=== PATIENT | male | born 1935 | race Caucasian/White ===

== ENCOUNTER 2022-09-13 08:19 | Outpatient (OUT) | payer MEDICARE, OTHER, SELFPAY ==
[2022-09-13 11:00] LABS: Alanine Aminotransferase 23 U/L (16-63); Albumin Level 3.6 g/dL (3.4-5.0); Alkaline Phosphatase 85 U/L (46-116); Anion Gap 14.4; Aspartate Amino Transferase 15 U/L (15-37); BUN Creatinine Ratio 14.8; Bilirubin Total 0.2 mg/dL (0.2-1.0); Calcium 9.2 mg/dL (8.5-10.1); Carbon Dioxide 24.9 mmol/L (21.0-32.0); Chloride 105 mmol/L (98-107); Estimated GFR (African America >60 (>=60); Estimated GFR (Non-African Ame 53 (>=60); Globulin 3.8 g/dL; Glucose 139 mg/dL (74-106); Potassium 4.3 mmol/L (3.5-5.1); Sodium 140 mmol/L (136-145); Total Protein 7.4 g/dL (6.4-8.2)
[2022-09-13 11:01] LABS: Albumin Globulin Ratio 0.9
== END 2022-09-13 08:20 ==
LOC: LAB 08:23
PROVIDERS: PCP Family Medicine; Visit Provider Nurse Practitioner Family
DX: R60.0 Localized edema (principal)
CPT/HCPCS: 36415; 80053

== ENCOUNTER 2023-08-13 06:29 | Outpatient (OUT) | payer MEDICARE, OTHER, SELFPAY ==
[2023-08-13 07:19] LABS: Basophils Absolute Auto 0.1 10^3/uL (0.0-0.1); Basophils Percent Auto 0.5 % (0.2-2.0); Eosinophils Absolute Auto 0.1 10^3/uL (0.0-0.7); Hematocrit 39.2 % (42.0-54.0); Hemoglobin 12.5 g/dL (14.0-18.0); Immature Granulocytes Abs Auto 0.04 10^3/uL (0.00-0.03); Immature Granulocytes Pct Auto 0.4 % (0.0-0.5); Lymphocytes Absolute Auto 4.1 10^3/uL (1.2-3.8); Lymphocytes Percent Auto 37.5 % (20.5-60.0); Mean Corpuscular HGB Conc 31.9 g/dL (29.9-35.2); Mean Corpuscular Hemoglobin 29.6 pg (25.9-34.0); Mean Corpuscular Volume 92.9 fL (80.0-94.0); Mean Platelet Volume 10.7 fL (9.5-13.5); Monocytes Absolute Auto 0.9 10^3/uL (0.3-0.8); Monocytes Percent Auto 7.9 % (1.7-12.0); Neutrophils Absolute Auto 5.8 10^3/uL (1.4-6.5); Neutrophils Percent Auto 52.7 % (43.0-75.0); Platelet Count 283 10^3/uL (150-450); Red Blood Count 4.22 10^6/uL (4.70-6.10); Red Cell Distribution Width 14.6 % (11.0-15.0)
[2023-08-13 07:40] LABS: Prostate Specific Antigen Scrn 1.08 ng/mL (<=4.00)
[2023-08-13 07:42] LABS: Alanine Aminotransferase 27 U/L (16-63); Albumin Globulin Ratio 1.1; Albumin Level 3.6 g/dL (3.4-5.0); Alkaline Phosphatase 91 U/L (46-116); Anion Gap 12.2; Aspartate Amino Transferase 17 U/L (15-37); BUN Creatinine Ratio 20.3; Bilirubin Total 0.6 mg/dL (0.2-1.0); Calcium 9.4 mg/dL (8.5-10.1); Carbon Dioxide 26.9 mmol/L (21.0-32.0); Chloride 107 mmol/L (98-107); Chol HDL Ratio 3.6; Cholesterol 189 mg/dL (<=200); Estimated GFR (African America 54 (>=60); Estimated GFR (Non-African Ame 45 (>=60); Free T3 3.65 pg/mL (2.18-3.98); Globulin 3.2 g/dL; Glucose 135 mg/dL (74-106); HDL Cholesterol 53 mg/dL (40-60); LDL Cholesterol Calculated 114.8 mg/dL; Potassium 4.1 mmol/L (3.5-5.1); Sodium 142 mmol/L (136-145); Thyroid Stimulating Hormone 1.207 uIU/mL (0.358-3.740); Total Protein 6.8 g/dL (6.4-8.2); Triglycerides 106 mg/dL (<=150); VLDL CHOLESTEROL 21.2 mg/dL
[2023-08-13 07:43] LABS: Estimated Average Glucose 146 mg/dL; Glycohemoglobin A1C 6.7 % (4.5-6.2)
== END 2023-08-13 06:30 | disposition home or self-care (01) ==
LOC: LAB 06:31
PROVIDERS: PCP Family Medicine; Visit Provider Family Medicine
DX: K58.9 Irritable bowel syndrome, unspecified (principal); I10 Essential (primary) hypertension; M54.50 Low back pain, unspecified; R00.2 Palpitations; E78.5 Hyperlipidemia, unspecified; R73.09 Other abnormal glucose; Z12.5 Encounter for screening for malignant neoplasm of prostate
CPT/HCPCS: 36415; 80053; 80061; 83036; 84436; 84443; 84481; 85025; G0103

== ENCOUNTER 2023-11-01 08:30 | Outpatient (OUT) | payer MEDICARE, OTHER, SELFPAY ==
--- NOTE | 2023-11-01 | US_ITS ---
[address] [address] Patient Name: LILIANA BENITO MRN: [id number] date: 1935 Sex: M Assigned Patient Location: Current Patient Location: US Accession/Order Number: [id number] Exam Date: 11/01/2023 08:49 Report Date: 11/03/2023 13:22 At the request of: ERIN ZHANG Procedure: US carotid duplex BI EXAMINATION: US carotid duplex BI HISTORY: Weakness R53.1 COMPARISON: No relevant comparison available. TECHNIQUE: Duplex Doppler ultrasound analysis of carotid and vertebral arteries. . Bilateral carotid arterial duplex examination was performed using B-mode, color flow and spectral analysis. Carotid stenosis is reported according to validated velocity parameters, similar to NASCET criteria. FINDINGS: RIGHT CAROTID ARTERY: Marked atherosclerotic narrowing of the proximal ICA with up to 86% area reduction. Subclavian: 135.18 cm/s / 7.43 cm/s CCA: Prox: 132.86 cm/s / 12.08 cm/s Mid: 121.24 cm/s / 16.72 cm/s Distal: 128.21 cm/s / 14.40 cm/s BULB: 79.40 cm/s / 9.75 cm/s ICA: Prox: 144.47 cm/s / 20.30 cm/s Mid: 138.51 cm/s / 30.15 cm/s Distal: 128.66 cm/s / 18.32 cm/s ECA: 177.49 cm/s / 0 cm/s VERTEBRAL: 35.94 cm/s / 0 cm/s ICA/CCA ratio: 1.1 LEFT CAROTID ARTERY: Marked atherosclerotic narrowing within carotid bulb. Subclavian: 210.40 cm/s / 15.50 cm/s CCA: Prox: 133.17 cm/s / 19.13 cm/s Mid: 114.13 cm/s / 13.60 cm/s Distal: 112.16 cm/s / 15.57 cm/s BULB: 98.36 cm/s / 0 cm/s ICA: Prox: 108.22 cm/s / 15.57 cm/s Mid: 116.11 cm/s / 25.43 cm/s Distal: 82.59 cm/s / 19.52 cm/s ECA: 186.18 cm/s / 0 cm/s VERTEBRAL: 140.82 cm/s / 18.09 cm/s ICA/CCA ratio: 1.0 US/US carotid duplex BI IMPRESSION: 1. 50-69% flow stenosis within the right carotid artery. 86% area reduction secondary to marked atherosclerotic disease. 2. 50-69% flow stenosis within left carotid artery. Marked atherosclerotic disease within carotid bulb. Spectral Doppler US Thresholds Stenosis (%) PSV (cm/sec) VICA/VCCA 0-49 <150 <2.5 50-69 150-225 2.5-4.0 >70 >225 >4.0 Electronically authenticated by: GEOVANY JENKINS Date: 11/03/2023 13:22
--- OUTSIDE RECORDS SUMMARY | 2023-11-01 08:34 | XMS_ITS | CCD ---
Author Organization [facility] CliniSywy Care Team Providers Care Rcis Name Role Phone CHET NESBITT Unavailable Unavailable CHET NESBITT Unavailable Unavailable ERIN BERG Unavailable Unavailable PHYSICIAN, DEFAULT Unavailable Unavailable PHYSICIAN, DEFAULT Unavailable Unavailable PHYSICIAN, DEFAULT Unavailable Unavailable PHYSICIAN, DEFAULT Unavailable Unavailable Chevy Robins Unavailable Erin Berg Primary Care Physician VICENTE ., DR KHAN Consulting Unavailable HOY ., DR KHAN Primary Care Unavailable HOY ., DR KHAN Attending Unavailable HOY ., DR KHAN Admitting Unavailable REQUEST, DR FAITH LISTED Admitting Unavaila ble REQUEST, DR FAITH LISTED Attending Unavaila ble HOY ., DR KHAN Primary Care Unavailable REQUEST, DR FAITH LISTED Consulting Unavaila ble HOY ., DR KHAN Consulting Unavailable HOY ., DR KHAN Primary Care Unavailable HOY ., DR KHAN Attending Unavailable HOY ., DR KHAN Admitting Unavailable MARK LEE Consulting Unavailable ALGHOTHANI, MOHAMAD Consulting Unavailable HOY ., DR KHAN Primary Care Unavailable ALGHOTHANI, ARNEL Attending Unavailable ALGHOTHANI, MOHALYSSAD Admitting Unavailable HOY ., DR KHAN Consulting Unavailable HOY ., DR KHAN Primary Care Unavailable HOY ., DR KHAN Attending Unavailable HOY ., DR KHAN Admitting Unavailable MISC, DR BARRAGAN Admitting Unavailable MISC, DR BARRAGAN Attending Unavailable HOY ., DR KHAN Primary Care Unavailable HOY ., DR KHAN Consulting Unavailable HOY ., DR KHAN Primary Care Unavailable HOY ., DR KHAN Attending Unavailable HOY ., DR KHAN Admitting Unavailable KURT JOE Consulting Unavailable HOY ., DR KHAN Admitting Unavailable HOY ., DR KHAN Attending Unavailable HOY ., DR KHAN Primary Care Unavailable HOY ., DR KHAN Consulting Unavailable MAHNAZ, MELYSSA Admitting Unavailable MAHNAZ, MELYSSA Attending Unavailable HOY ., DR KHAN Primary Care Unavailable MAHNAZ, MELYSSA Consulting Unavailable HOY ., DR KHAN Admitting Unavailable HOY ., DR KHAN Attending Unavailable HOY ., DR KHAN Primary Care Unavailable HOY ., DR KHAN Consulting Unavailable WEST, DR KURT Coley Consulting Unavailable HOY ., DR KHAN Admitting Unavailable HOY ., DR KHAN Attending Unavailable HOY ., DR KHAN Primary Care Unavailable HOY ., DR KHAN Referring Unavailable HOY ., DR KHAN Consulting Unavailable WEST, DR KURT Coley Consulting Unavailable HOY ., DR KHAN Consulting Unavailable HOY ., DR KHAN Primary Care Unavailable HOY ., DR KHAN Attending Unavailable HOY ., DR KHAN Admitting Unavailable MAHNAZ, MELYSSA Admitting Unavailable MAHNAZ, MELYSSA Attending Unavailable HOY ., DR KHAN Primary Care Unavailable MAHNAZ, MELYSSA Consulting Unavailable REQUEST, DR NONE LISTED Consulting Unavaila ble HOY ., DR KHAN Primary Care Unavailable REQUEST, DR FAITH LISTED Attending Unavaila ble REQUEST, DR FAITH LISTED Admitting Unavaila ble HOY ., DR KHAN Consulting Unavailable HOY ., DR KHAN Attending Unavailable HOY ., DR KHAN Admitting Unavailable HOY ., DR KHAN Primary Care Unavailable HAY ., DR HO Consulting Unavailable YANIV DACOSTA Consulting Unavailable DARAMOLAMAN Consulting Unavailable ALGHOTHANI, MOHAMAD Consulting Unavailable ALGHOTHANI, MOHAMAD Admitting Unavailable ALGHOTHANI, MOHAMAD Attending Unavailable HOY ., DR KHAN Primary Care Unavailable HOY ., DR KHAN Admitting Unavailable HOY ., DR KHAN Attending Unavailable HOY ., DR KHAN Primary Care Unavailable HOY ., DR KHAN Consulting Unavailable David Espinal Consulting Unavailable HOY ., DR KHAN Consulting Unavailable HOY ., DR KHAN Primary Care Unavailable HOY ., DR KHAN Attending Unavailable HOY ., DR KHAN Admitting Unavailable David Espinal Consulting Unavailable Darien REYNOLDS Attending Unavailable Darien REYNOLDS Attending Unavailable Alli MUKHERJEE Attending Unavailable HoyErin Referring Unavailable ALGHOTHANI, MOHAMAD Attending Unavailable ALGHOTHANI, MOHAMAD Attending Unavailable Allergies Allergy Classification Reported Allergen(s) Allergy Type Date of Onset Reaction(s) Facility (1 source) No Known Medication Allergies; Translations: [No Known Medication Allergies] Propensity to adverse reactions (disorder) [facility] Repository (1 source) Adhesive agent; Translations: [ADHESIVE] Propensity to adverse reactions to drug (disorder) 7 [facility] Repository Medications Current Medications Medication Drug Class(es) Dates Sig (Normalized) Sig (Original) amLODIPine 5 mg oral tablet (5 sources) Dihydropyridine Calcium Channel Faith Start: 09-14-2020 take 1 mg by mouth once daily amLODIPine 5 mg Tab mg tab(s), Oral, Daily, Refills(s) 0 Start Date: 09/14/20 Status: Ordered take 1 tablet by anna th every twenty-four hours amLODIPine Besylate 10 MG 1 tablet Orall y Once a day Active Ascorbic Acid (2 sources) Vitamin C Start: 09-14-2020 Vitamin C Jamel y, Refills(s) 0 Start Date: 09/14/20 Status: Ordered budesonide 3 mg delayed release oral capsule (2 sources) Corticosteroid Start: 09-12-2022 Budesonide 3 M G 1capsule Orally take 3 capsules for four weeks then 2 capsules for 4 weeks then take 1 capsule for 4 weeks for 90 days Sep, Active Start: 11-09-2020 Budesonide 3 M G 2 capsules for 14 days, 1 capsules for 14 days Orally Once a day for 28 days Nov, Active diclofenac sodium 75 mg delayed release oral tablet (2 sources) Nonsteroidal Anti-inflammatory Drug Start: 11-27-2021 take 1 tablet by mouth twice daily Diclofenac 75mg Tab-DR 75 mg, Oral, BID Start Date: 11/27/21 Status: Ordered Diclofenac 75mg Tab-DR (1 source) Start: 11-27-2021 take 1 tablet by mouth twice daily Diclofenac 75mg Tab-DR 75 mg, Oral, BID Start Date: 11/27/21 Status: Ordered Fish Oils (2 sources) Start: 09-14-2020 Fish Oil Oral, Refill(s) 0 Start Date: 09/14/20 Status: Ordered furosemide 20 mg oral tablet (3 sources) Loop Diuretic Start: 11-27-2021 take 1 tablet by mouth once daily furosemide 20 mg Tab 20 mg = 1 tab(s), Oral, Daily Start Date: 11/27/21 Status: Ordered take 1 tablet by anna th every twelve hours Furosemide 20 MG 1 tablet Orally twice a day Active glimepiride 2 mg oral tablet (3 sources) Sulfonylurea Start: 09-14-2020 take 1 mg by mouth once daily glimepiride 2 mg Tab mg tab(s), Oral, Daily, Refills(s) 0 Start Date: 09/14/20 Status: Ordered hydrALAZINE hydrochloride 100 mg oral tablet (4 sources) Arteriolar Vasodilator Start: 06-11-2022 take 1 tablet by mouth twice daily hydrALAZINE 100 mg oral tablet 100 mg = 1 tab(s), Oral, BID Start Date: 06/11/22 Status: Ordered Start: 11-27-2021 take 1 tablet by anna th four times daily hydrALAZINE 50 mg Tab 50 mg = 1 tab(s), Oral, QID Start Date: 11/27/21 Status: Ordered Hyoscyamine (1 source) Hyoscyamine Acti ve levothyroxine sodium 0.05 mg oral tablet (5 sources) l-Thyroxine Start: take 1 tablet by mouth once daily levothyroxine 50 mcg (0.05 mg) Tab mcg tab(s), Oral, Daily, Refills(s) 0 Start Date: 09/14/20 Status: Ordered 1 ml liothyronine sodium 0.01 mg/ml injection (1 source) l-Triiodothyronine take 1 mL intravenously every eight hours as needed Liothyronine Sodium 10 MCG/ML 1 mL as needed Intravenous every 8 hrs Active lisinopril 20 mg oral tablet (4 sources) Angiotensin Converting Enzyme Inhibitor Start: take 1 tablet by mouth once daily lisinopril 20 mg Tab 20 mg = 1 tab(s), Oral, Daily Start Date: 06/11/22 Status: Ordered Start: 09-14-2020 take 1 mg by mouth once daily lisinopril 30 mg Tab mg tab(s), Oral, Daily, Refills(s) 0 Start Date: 09/14/20 Status: Ordered meloxicam 15 mg oral tablet (1 source) Nonsteroidal Anti-inflammatory Drug take 1 tablet by mouth every twenty-four hours Meloxicam 15 MG 1 tablet Orally Once a day Active oxybutynin chloride 5 mg oral tablet (4 sources) Cholinergic Muscarinic Antagonist Start: 2021 take 1 tablet by mouth once daily oxybutynin 5 mg Tab 5 mg = 1 tab(s), Oral, Daily, # 30 tab(s), Refills(s) 11, Pharmacy: [id number], 172, cm, 06/11/22 9:50:00 EST, Height/Length Dosing, 85.4, kg, 06/11/22 9:50:00 EST, Weight Dosing Start Date: 08/01/22 Status: Ordered pantoprazole 40 mg delayed release oral tablet (1 source) Proton Pump Inhibitor take 1 tablet by mouth every twenty-four hours Pantoprazole Sodium 40 MG 1 tablet Orally Once a day Active potassium chloride 10 meq extended release oral capsule (1 source) take 1 capsule by mouth every twelve hours Potassium Chloride ER 10 MEQ 1 capsule with food Orally Twice a day Active sucralfate 1000 mg oral tablet (1 source) Aluminum Complex take 1 tablet by mouth every twelve hours Sucralfate 1 GM 1 tablet on an empty stomach Orally Twice a day Active tamsulosin hydrochloride 0.4 mg oral capsule (5 sources) alpha-Adrenergic Faith Start: 2022 take 1 capsule by mouth once daily tamsulosin 0.4 mg Cap 0.4 mg = 1 cap(s), Oral, Daily Start Date: 06/11/22 Status: Ordered Start: 11-27-2021 take 1 capsule by mo [facility] twice daily tamsulosin 0.4 mg Cap 0.4 mg = 1 cap(s), Oral, BID Start Date: 11/27/21 Status: Ordered tiZANidine 4 mg oral tablet (4 sources) Central alpha-2 Adrenergic Agonist Start: 11-27-2021 take 1 tablet by mouth every eight hours tiZANidine 4 mg Tab 4 mg = 1 tab(s), Oral, q8hr Start Date: 11/27/21 Status: Ordered take 1 tablet by [facility] every twenty-four hours tiZANidine HCl 4 MG 1 tablet as needed Orally daily Active vitamin a 04912 unt oral capsule (2 sources) Vitamin A Start: 09-14-2020 vitamin A 25,0 00 units oral capsule Refills(s) 0 Start Date: 09/14/20 Status: Ordered vitamin B12 (2 sources) Vitamin B12 Start: 09-14-2020 Vitamin B12 Re fills(s) 0 Start Date: 09/14/20 Status: Ordered Vitamin B6 (2 sources) Start: 09-14-2020 Vitamin B6 Juanis ly, Refills(s) 0 Start Date: 09/14/20 Status: Ordered Vitamin D (2 sources) Start: 09-14-2020 Vitamin D International_Unit, Oral, Daily, Refills(s) 0 Start Date: 09/14/20 Status: Ordered Vitamin E (2 sources) Start: 09-14-2020 vitamin E Oral , Daily, Refills(s) 0 Start Date: 09/14/20 Status: Ordered Problems Active Problems Problem Classification Problem Date Documented Da te Episodic/Chronic Abdominal pain (4 sources) Generalized abdominal pain; Translations: [GENERALIZED ABDOMINAL PAIN] Onset: 3 Episodic Biliary tract disease (1 source) Calculus of gallbladder without cholecystitis without obstruction; Translations: [CALCU GB W/O CHOLECYST W/O OBST] Onset: 3 Episodic Chronic kidney disease (1 source) Chronic kidney disease, unspecified; Translations: [CHRONIC KIDNEY DISEASE UNSPECIFIED] Onset: 3 Chronic Conditions associated with dizziness or vertigo (3 sources) Dizziness and giddiness; Translations: [DIZZINESS AND GIDDINESS] Onset: 3 Episodic Conduction disorders (1 source) Unspecified atrioventricular block; Translations: [UNSPECIFIED ATRIOVENTRICULAR BLOCK] Onset: 3 Chronic Deficiency and other anemia (1 source) Iron deficiency anemia, unspecified; Translations: [IRON DEFICIENCY ANEMIA UNSPECIFIED] Onset: 3 Episodic Diabetes mellitus with complications (6 sources) Type 2 diabetes mellitus with hypoglycemia without coma; Translations: [Type 2 diabetes mellitus with diabetic neuropathy, unspecified] Onset: 2 Chronic Diabetes mellitus without complication (2 sources) Type 2 diabetes mellitus 09-14-2020 Chronic Diseases of white blood cells (4 sources) Elevated white blood cell count, unspecified; Translations: [ELEVATED WHITE BLOOD CELL COUNT UNS] Onset: 3 Chronic Disorders of lipid metabolism (1 source) Hyperlipidemia, unspecified; Translations: [HYPERLIPIDEMIA UNSPECIFIED] Onset: 2 Chronic E Codes: Adverse effects of medical drugs (1 source) Adverse effect of insulin and oral hypoglycemic [antidiabetic] drugs, initial encounter; Translations: [ADVERS EFF INSULIN ORAL HG RX INIT] Onset: 3 Episodic Essential hypertension (8 sources) Hypertensive disorder; Translations: [Essential (primary) hypertension] Onset: 2 09-14-2020 Chronic Genitourinary symptoms and ill-defined conditions (7 sources) Nocturia; Translations: [Nocturia] Onset: 2 Episodic Hyperplasia of prostate (4 sources) Benign prostatic hypertrophy with outflow obstruction; Translations: [Benign prostatic hyperplasia with lower urinary tract symptoms] Onset: 2 Chronic Hypertension with complications and secondary hypertension (1 source) Hypertensive chronic kidney disease with stage 1 through stage 4 chronic kidney disease, or unspecified chronic kidney disease; Translations: [HTN CKD W/STAGE 1-4 CKD/UNS CKD] Onset: 3 Chronic Malaise and fatigue (2 sources) Weakness; Translations: [Other fatigue] Onset: 2 Episodic Menopausal disorders (1 source) Hormone replacement therapy; Translations: [HORMONE REPLACEMENT THERAPY] Onset: 3 Episodic Noninfectious gastroenteritis (10 sources) Microscopic colitis; Translations: [Other specified noninfective gastroenteritis and colitis] Onset: 1 Resolved: 1 Episodic Osteoarthritis (1 source) Unspecified osteoarthritis, unspecified site; Translations: [UNSPECIFIED OSTEOARTHRITIS UNS SITE] Onset: 3 Chronic Other aftercare (1 source) Other terminal manager (current) drug therapy; Translations: [OTH RETIREMENT CURRENT DRUG THERAPY] Onset: 3 Episodic Other gastrointestinal disorders (5 sources) 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; Translations: [IRRITABLE BOWEL SYND W/O DIARRHEA] Onset: 3 Chronic Other gastrointestinal disorders (2 sources) Diarrhea; Translations: [Diarrhea, unspecified] Episodic Other gastrointestinal disorders (1 source) Incontinence of feces; Translations: [Full incontinence of feces] Episodic Other gastrointestinal disorders (1 source) Diarrhea, unspecified; Translations: [Diarrhea] Episodic Other nutritional; endocrine; and metabolic disorders (3 sources) Weight loss; Translations: [Abnormal weight loss] Episodic Other nutritional; endocrine; and metabolic disorders (2 sources) Body mass index 25-29 - overweight 11-15-2020 Episodic Other nutritional; endocrine; and metabolic disorders (1 source) Abnormal weight loss; Translations: [ABNORMAL WEIGHT LOSS] Onset: 3 Episodic Peripheral and visceral atherosclerosis (1 source) Unspecified atherosclerosis; Translations: [UNSPECIFIED ATHEROSCLEROSIS] Onset: 3 Chronic Screening and history of mental health and substance abuse codes (1 source) Personal history of nicotine dependence; Translations: [PERSONAL HISTORY OF NICOTINE DEPEND] Onset: 3 Episodic Spondylosis; intervertebral disc disorders; other back problems (5 sources) Spinal stenosis, lumbar region without neurogenic claudication; Translations: [SPINAL STENOSIS LUMBAR REGION NO NC] Onset: 2 Episodic Thyroid disorders (1 source) Hypothyroidism, unspecified; Translations: [HYPOTHYROIDISM UNSPECIFIED] Onset: 3 Chronic Unclassified (1 source) DISLOCATED IOL LEFT EYE / DISLOCATED IOL LEFT EYE() Onset: 7 Unclassified (1 source) CONTACT W/AND (SUSP) EXPOS COVID-19; Translations: [CONTACT W/AND (SUSP) EXPOS COVID-19] Onset: 3 Unclassified (3 sources) LOW BACK PAIN, UNSPECIFIED; Translations: [LOW BACK PAIN, UNSPECIFIED] Onset: 2 Past or Other Problems Problem Classification Problem Date Documented Da te Episodic/Chronic Cardiac dysrhythmias (2 sources) Bradycardia, unspecified; Translations: [Bradycardia, unspecified] Onset: 03-26-2022 Episodic Diabetes mellitus without complication (1 source) Other abnormal glucose; Translations: [OTHER ABNORMAL GLUCOSE] Onset: 02-07-2022 Episodic Other non-traumatic joint disorders (1 source) Pain in unspecified joint; Translations: [PAIN IN UNSPECIFIED JOINT] Onset: 02-07-2022 Episodic Other screening for suspected conditions (not mental disorders or infectious disease) (2 sources) Encounter for screening for malignant neoplasm of prostate; Translations: [Encounter for screening for malignant neoplasm of colon] Onset: 02-07-2022 Episodic Residual codes; unclassified (4 sources) Edema, unspecified; Translations: [EDEMA UNSPECIFIED] Onset: 04-05-2022 Episodic Residual codes; unclassified (4 sources) Localized edema; Translations: [LOCALIZED EDEMA] Onset: 04-01-2022 Episodic Unclassified (1 source) DISLOCATED IOL LEFT EYE; Translations: [DISLOCATED IOL LEFT EYE] Onset: 01-15-2017 Unclassified (1 source) LOW BACK PAIN, UNSPECIFIED; Translations: [LOW BACK PAIN, UNSPECIFIED] Onset: 09-14-2021 Results Test Name Value Interpretation Reference Range Facility Office Visiton 07-07-2023 Follow-up visit [id number] Caprice Natarajan E 1935 M Date Provider Department Center 07/07/2023 [id number] ACOSTA Family History Problem Relation Age of Onset Diabetes Father Hypertension Father Family Status - Relation Status Age at Father Level of Service:18590 [place] OFFICE/OUTPATIENT ESTABLISHED LOW MDM 20 MIN Reason for Visit and Comments: Follow-up [241046] - 6 month follow up Normal [facility] Office Visiton 12-13-2022 Follow-up visit [id number] Caprice Natarajan E 1935 M Date Provider Department Center 12/13/2022 [id number] ACOSTA Family History Problem Relation Age of Onset Diabetes Father Hypertension Father Family Status - Relation Status Age at Father Level of Service:09282 [place] OFFICE/OUTPATIENT ESTABLISHED LOW MDM 20-29 MIN Normal [facility] STOOL CULTUREon 08-18-2022 Campylobacter Culture Final report Normal [facility] Comment on above: Performed By: #### C XSTOOL #### [facility] [address] [place] [address] Dr. Deepika Terrell E coli Shiga Toxin EIA Negative Normal Negative [facility] Comment on above: Performed By: #### C XSTOOL #### [facility] [address] [address] [address] Deepika Terrell Result 1 Comment Normal [facility] Comment on above: Result Comment: No S almonella or Shigella recovered. Performed By: #### C XSTOOL #### [facility] [address] [address] [address] Deepika Terrell Result Comment: No C ampylobacter species isolated. Salmonella/Shigell a Screen Final report Normal [facility] Comment on above: Performed By: #### C XSTOOL #### [facility] [address] [address] [address] Deepika Garcia DIFF PCRon 08-13-2022 C. DIFFICILE PCR Negative Normal NEGATIVE [facility] Comment on above: Performed By: #### B MP #### [facility] [address] [place], [place] [address] Dr. Deepika Terrell Consultation Noteon 08-14-19 23 Consultation Note [id number]:127 Normal [facility] OCC BLD IMMUNO SCREENon OCCULT BLOOD Negative Normal NEGATIVE [facility] Comment on above: Performed By: #### B MP #### [facility] [address] [address] [address] Deepika Terrell RAD - MISCon 08-13-2022 RAD - MISC [id number]:127 Normal [facility] Physician Referralon 023 Physician Referral [id number]:127 Normal [facility] NM HEPATOBILIARY SCAN W EFon 08-09-2022 NM HEPATOBILIARY SCAN W EF EXAMINATION: NM HEPATOBILIARY SCAN W EF HISTORY: Abdominal colic COMPARISON: Ultrasound right upper quadrant 08/08/2022 TECHNIQUE: Radionuclide hepatobiliary imaging was performed after intravenous injection of 5.0 mCi Tc-99m EHLLEN derivative with sequential acquisitions every 1 minute for one hour. Hepatobiliary imaging with gallbladder ejection fraction analysis was then performed with sequential imaging every 1 minute for 60 minutes following ingestion of 8 oz. Ensure Plus. FINDINGS: LIVER: Normal, prompt and uniform radiotracer uptake and clearing. BILIARY DUCTS: Normal radioisotopic biliary excretion. GALLBLADDER: Normal with no evidence of cystic duct obstruction. INTESTINE: Normal with no evidence of common biliary ductal obstruction. EJECTION FRACTION: 0-5 % within 60 minutes. (Normal EF > 38%). OTHER: Negative. IMPRESSION: 1. Abnormal gallbladder emptying despite normal gallbladder filling. Findings suggest ball-valve type obstruction or dyskinesia. 2. Yesterday's ultrasound study demonstrated a 9 mm stone within the gallbladder. Electronically authenticated by: DAVID ESPINAL Date: 2022-08-09 10:42 Normal [facility] US SINGLE QUAD RT UPPERon US SINGLE QUAD RT UPPER EXAM: US SINGLE QUAD RT UPPER HISTORY: . Abdominal colic . COMPARISON: None. TECHNIQUE: Grayscale and color imaging was performed FINDINGS: The pancreas is grossly unremarkable. The liver is normal in size. No masses are noted. Color-flow is noted in the portal and hepatic veins. There is an echogenic focus within the gallbladder with shadowing consistent with a gallstone. This measures approximately 9 mm. No gallbladder wall thickening is noted. Patient had no pain upon scanning over the gallbladder. Common bile duct measures 4 mm. Right kidney measures 10.6 x 5.9 x 5.9 cm. No solid renal cortical masses or hydronephrosis is noted. Color-flow is noted. There graph no fluid is noted in the right upper quadrant. IMPRESSION: 1. Cholelithiasis. There is also minimal sludge within the gallbladder. No gallbladder wall thickening is noted. Patient had no pain upon scanning over the gallbladder. 2. The remainder the right upper quadrant was unremarkable. Electronically authenticated by: KURT JOE Date: 2022-08-08 07:42 Normal [facility] GLYCOHEMOGLOBIN A1Con 2022 ADA RECOMMENDATION SEE BELOW Normal [facility] Comment on above: Result Comment: ADA RECOMMENDED LIMIT 4.0 - 6.0 ADA THERAPEUTIC TARGET < 7.0 ACTION SUGGESTED > 7.0 Performed By: #### I NSULT #### [facility] [address] [place] [address] Dr. Deepika Terrell Glucose [Mass/Vol] 117 mg/dL Normal [facility] Comment on above: Performed By: #### I NSULT #### [facility] [address] [place] [address] Dr. Deepika Terrell HbA1c (Bld) [Mass fraction] 5.7 % Normal 4.5-6.2 [facility] Comment on above: Performed By: #### I NSULT #### [facility] [address] [place] [address] ABD/PELVIS WO CONon 07-20 CT ABD/PELVIS WO CON EXAM: CT scan of the abdomen and pelvis without contrast. Oral contrast. Dose reduction technique used: Automated exposure control and/or adjustment of the mA and/or kV according to patient size and/or use of iterative reconstruction technique. REASON FOR EXAM: Asthenia COMPARISON: CT scan dated 06/01/2022 FINDINGS: Cholelithiasis. Multilevel lumbar spinal canal stenoses, moderate or severe at the L3-L4 level. Scattered colonic diverticula. Fat-containing left inguinal hernia. No renal, ureteral or bladder calculi. No hydronephrosis. No evidence of appendicitis. No free intraperitoneal air. No free fluid in the abdomen or pelvis. No dilated or thickened loops of small bowel or colon. Liver, pancreas, spleen, bilateral kidneys, and bilateral adrenal glands are otherwise unremarkable within the limitations of noncontrast CT. No lymphadenopathy in the abdomen or pelvis. Remainder unremarkable. IMPRESSION: 1. No acute abnormalities in the abdomen or pelvis. 2. Cholelithiasis. 3. L3-L4 spinal canal stenosis is moderate or severe. Electronically authenticated by: MARK LEE Date: 2022-07-20 07:40 Normal [facility] CBC AUTO DIFFon 07-19-2022 BASO # 0.0 103/ul Normal 0.0-0.1 [facility] Comment on above: Performed By: #### C BC #### [facility] [address] [address] [address] Deepika Terrell Basophils/100 WBC (Bld) 0.3 % Normal 0.2-2.0 [facility] Comment on above: Performed By: #### C BC #### [facility] [address] [address] [address] Deepika Terrell EO # 0.3 103/ul Normal 0.0-0.7 [facility] Comment on above: Performed By: #### C BC #### [facility] [address] [address] [address] Deepika Terrell Eosinophils/100 WBC (Bld) 2.4 % Normal 0.9-7.0 [facility] Comment on above: Performed By: #### C BC #### [facility] [address] [address] [address] Deepika Terrell Erythrocyte distribution width (RBC) [Ratio] 14.8 % Normal 11.0-15.0 [facility] Comment on above: Performed By: #### C BC #### [facility] [address] [address] [address] Deepika Terrell Hematocrit (Bld) [Volume fraction] 33.8 % Critically low 42.0-54.0 [facility] Comment on above: Performed By: #### C BC #### [facility] [address] [address] [address] Deepika Terrell Hemoglobin (Bld) [Mass/Vol] 11.0 g/dL Critically low 14.0-18.0 [facility] Comment on above: Performed By: #### C BC #### [facility] [address] [place] [address] Dr. Deepika Terrell IG # 0.08 10e3/ul Critically high 0.00-0.03 [facility] Comment on above: Performed By: #### C BC #### [facility] [address] [place] [address] Dr. Deepika Terrell IG % 0.7 % Critically high 0.0-0.5 [facility] Comment on above: Performed By: #### C BC #### [facility] [address] [address] [address] Deepika Terrell LYMPH # 3.5 103/ul Normal 1.2-3.8 [facility] Comment on above: Performed By: #### C BC #### [facility] [address] [place] [address] Dr. Deepika Terrell Lymphocytes/100 WBC (Bld) 29.2 % Normal 20.5-60.0 [facility] Comment on above: Performed By: #### C BC #### [facility] [address] [place] [address] Dr. Deepika Terrell MANUAL DIFF REQ NO Normal [facility] Comment on above: Performed By: #### C BC #### [facility] [address] [place] [address] Dr. Deepika Terrell MCH (RBC) [Entitic mass] 29.4 pg Normal 25.9-34.0 [facility] Comment on above: Performed By: #### C BC #### [facility] [address] [address] [address] Deepika Terrell MCHC (RBC) [Mass/Vol] 32.5 g/dL Normal 29.9-35.2 [facility] Comment on above: Performed By: #### C BC #### [facility] [address] [address] [address] Deepika Terrell MCV (RBC) [Entitic vol] 90.4 fL Normal 80.0-94.0 [facility] Comment on above: Performed By: #### C BC #### [facility] [address] [address] [address] Deepika Terrell MONO # 0.7 103/ul Normal 0.3-0.8 [facility] Comment on above: Performed By: #### C BC #### [facility] [address] [place] [address] Dr. Deepika Terrell Monocytes/100 WBC (Bld) 6.1 % Normal 1.7-12.0 [facility] Comment on above: Performed By: #### C BC #### [facility] [address] [address] [address] Deepika Terrell NEUT # 7.3 103/ul Critically high 1.4-6.5 [facility] Comment on above: Performed By: #### C BC #### [facility] [address] [address] [address] Deepika Terrell Neutrophils/100 WBC (Bld) 61.3 % Normal 43.0-75.0 [facility] Comment on above: Performed By: #### C BC #### [facility] [address] [address] [address] Deepika Terrell Platelet mean volume (Bld) [Entitic vol] 10.8 fL Normal 9.5-13.5 [facility] Comment on above: Performed By: #### C BC #### [facility] [address] [address] [address] Deepika Terrell PLT 372 103/ul Normal 150-450 [facility] Comment on above: Performed By: #### C BC #### [facility] [address] [address] [address] Deepika Terrell RBC 3.74 106/ul Critically low 4.70-6.10 [facility] Comment on above: Performed By: #### C BC #### [facility] [address] [address] [address] Deepika Terrell WBC 11.9 103/ul Critically high 4.0-11.0 [facility] Comment on above: Performed By: #### C BC #### [facility] [address] [place] [address] Dr. Deepika Terrell PROF CHEM 8 (BAS METB)on Anion gap [Moles/Vol] 16.1 mmol/L Normal [facility] Comment on above: Performed By: #### I NSULT #### [facility] [address] [place] [address] Dr. Deepika Terrell Calcium [Mass/Vol] 9.0 mg/dL Normal 8.5-10.1 [facility] Comment on above: Performed By: #### I NSULT #### [facility] [address] [place] [address] Dr. Deepika Terrell Chloride [Moles/Vol] 108 mmol/L Critically high 98-107 [facility] Comment on above: Performed By: #### I NSULT #### [facility] [address] [place] [address] Dr. Deepika Terrell CO2 [Moles/Vol] 19.3 mmol/L Critically low 21.0-32.0 [facility] Comment on above: Performed By: #### I NSULT #### [facility] [address] [place] [address] Dr. Deepika Terrell Creatinine [Mass/Vol] 2.68 mg/dL Critically high 0.70-1.30 [facility] Comment on above: Performed By: #### I NSULT #### [facility] [address] [place] [address] Dr. Deepika Terrell EGFR-AF SENEGALESE 27 mL/min/1.73m2 Critically low >=60 [facility] Comment on above: Performed By: #### I NSULT #### [facility] [address] [address] [address] Deepika Terrell EGFR-NON AF SENEGALESE 23 mL/min/1.73m2 Critically low >=60 [facility] Comment on above: Performed By: #### I NSULT #### [facility] [address] [address] [address] Deepika Terrell Glucose [Mass/Vol] 138 mg/dL Critically high 74-106 [facility] Comment on above: Performed By: #### I NSULT #### [facility] [address] [address] [address] Deepika Terrell Potassium [Moles/Vol] 4.4 mmol/L Normal 3.5-5.1 [facility] Comment on above: Performed By: #### I NSULT #### [facility] [address] [place] [address] Dr. Deepika Terrell Sodium [Moles/Vol] 139 mmol/L Normal 136-145 [facility] Comment on above: Performed By: #### I NSULT #### [facility] [address] [address] [address] Deepika Terrell Urea nitrogen [Mass/Vol] 68.0 mg/dL Critically high 7.0-18.0 [facility] Comment on above: Performed By: #### I NSULT #### [facility] [address] [place] [address] Dr. Deepika Terrell Urea nitrogen/Creatinin e [Mass ratio] 25.4 mg/mg Normal [facility] Comment on above: Performed By: #### I NSULT #### [facility] [address] [address] [address] Deepika Terrell CA 19-9on 07-18-2022 CA 19-9 9 U/mL Normal 0-35 [facility] Comment on above: Result Comment: [facility] Electrochemiluminescence Immunoassay (ECLIA) . Values obtained with different assay methods or kits cannot be used interchangeably. Results cannot be interpreted as absolute evidence of the presence or absence of malignant disease. Performed By: #### B MP #### [facility] [address] [place] [address] Dr. Deepika Terrell CEAon 07-18-2022 CEA 3.1 ng/mL Normal 0.0-4.7 [facility] Comment on above: Result Comment: Nons mokers <3.9 Smokers <5.6 . [employer] Electrochemiluminescence Immunoassay (ECLIA) . Values obtained with different assay methods or kits cannot be used interchangeably. Results cannot be interpreted as absolute evidence of the presence or absence of malignant disease. Performed By: #### I NSULT #### [facility] [address] [place] [address] Dr. Deepika Terrell HELICOBACTER PYLORI AB IGMon 07-18-2022 H pylori, IgM Abs <9.0 Normal 0.0-8.9 [facility] Comment on above: Result Comment: Nega tive <9.0 Equivocal 9.0 - 11.0 Positive >11.0 . This test was developed and its performance characteristics determined by [employer]. It has not been cleared or approved by the Food and Drug Administration. Performed By: #### C PEPT #### [facility] [address] [place] [address] Dr. Deepika Terrell AMYLASEon 07-17-2022 Amylase [Catalytic activity/Vol] 38 U/L Normal 25-115 [facility] Comment on above: Performed By: #### C BC #### [facility] [address] [place] [address] Dr. Deepika Terrell CBC W MANUAL DIFFon 07-18-19 23 ATYPICAL LYMPH # Normal [facility] Comment on above: Performed By: #### E RUR #### [facility] [address] [place] [address] Dr. Deepika Terrell ATYPICAL LYMPH % Normal [facility] Comment on above: Performed By: #### E RUR #### [facility] [address] [place] [address] Dr. Deepika Terrell BAND # Normal 0.0-0.3 [facility] Comment on above: Performed By: #### E RUR #### [facility] [address] [place] [address] Dr. Deepika Terrell BAND % Normal 0-5 [facility] Comment on above: Performed By: #### E RUR #### [facility] [address] [address] [address] Deepika Terrell BASOM # 0.00 103/ul Normal 0.00-0.10 [facility] Comment on above: Performed By: #### E RUR #### [facility] [address] [place] [address] Dr. Deepika Terrell BASOM % 0.0 % Critically low 0.2-2.0 [facility] Comment on above: Performed By: #### E RUR #### [facility] [address] [place] [address] Dr. Deepika Terrell BLAST # Normal [facility] Comment on above: Performed By: #### E RUR #### [facility] [address] [place] [address] Dr. Deepika Terrell BLAST % Normal [facility] Comment on above: Performed By: #### E RUR #### [facility] [address] [place] [address] Dr. Deepika Terrell CORRECTED WBC Normal 4.0-11.0 [facility] Comment on above: Performed By: #### E RUR #### [facility] [address] [place] [address] Dr. Deepika Terrell EOS # 0.00 103/ul Normal 0.00-0.70 [facility] Comment on above: Performed By: #### E RUR #### [facility] [address] [place] [address] Dr. Deepika Terrell EOS% 0.0 % Critically low 0.9-7.0 [facility] Comment on above: Performed By: #### E RUR #### [facility] [address] [place] [address] Dr. Deepika Terrell HCT 35.9 % Critically low 42.0-54.0 [facility] Comment on above: Performed By: #### E RUR #### [facility] [address] [place] [address] Dr. Deepika Terrell HGB 11.6 g/dl Critically low 14.0-18.0 [facility] Comment on above: Performed By: #### E RUR #### [facility] [address] [place] [address] Dr. Deepika Terrell LYMPHM # 3.48 103/ul Normal 1.20-3.80 [facility] Comment on above: Performed By: #### E RUR #### [facility] [address] [place] [address] Dr. Deepika Terrell LYMPHM% 17.0 % Critically low 20.5-60.0 [facility] Comment on above: Performed By: #### E RUR #### [facility] [address] [place] [address] Dr. Deepika Terrell MCH 29.5 pg Normal 25.9-34.0 [facility] Comment on above: Performed By: #### E RUR #### [facility] [address] [place] [address] Dr. Deepika Terrell MCHC 32.3 g/dl Normal 29.9-35.2 [facility] Comment on above: Performed By: #### E RUR #### [facility] [address] [place] [address] Dr. Deepika Terrell MCV 91.3 fL Normal 80.0-94.0 [facility] Comment on above: Performed By: #### E RUR #### [facility] [address] [place] [address] Dr. Deepika Terrell METAMYELOCYTE # Normal [facility] Comment on above: Performed By: #### E RUR #### [facility] [address] [place] [address] Dr. Deepika Terrell METAMYELOCYTE % Normal [facility] Comment on above: Performed By: #### E RUR #### [facility] [address] [place] [address] Dr. Deepika Terrell MONOM# 1.23 103/ul Critically high 0.30-0.80 [facility] Comment on above: Performed By: #### E RUR #### [facility] [address] [place] [address] Dr. Deepika Terrell MONOM% 6.0 % Normal 1.7-12.0 [facility] Comment on above: Performed By: #### E RUR #### [facility] [address] [place] [address] Dr. Deepika Terrell MPV 10.8 fL Normal 9.5-13.5 [facility] Comment on above: Performed By: #### E RUR #### [facility] [address] [place] [address] Dr. Deepika Terrell MYELOCYTE # Normal [facility] Comment on above: Performed By: #### E RUR #### [facility] [address] [place] [address] Dr. Deepika Terrell MYELOCYTE % Normal [facility] Comment on above: Performed By: #### E RUR #### [facility] [address] [place] [address] Dr. Deepika Terrell NRBC Normal [facility] Comment on above: Performed By: #### E RUR #### [facility] [address] [place] [address] Dr. Deepika Terrell PLT 423 103/ul Normal 150-450 [facility] Comment on above: Performed By: #### E RUR #### [facility] [address] [place] [address] Dr. Deepika Terrell RBC 3.93 106/ul Critically low 4.70-6.10 [facility] Comment on above: Performed By: #### E RUR #### [facility] [address] [place] [address] Dr. Deepika Terrell RDW 14.7 % Normal 11.0-15.0 [facility] Comment on above: Performed By: #### E RUR #### [facility] [address] [place] [address] Dr. Deepika Terrell SEG # 15.79 103/ul Critically high 1.40-6.50 [facility] Comment on above: Performed By: #### E RUR #### [facility] [address] [place] [address] Dr. Deepika Terrell SEG % 77.0 % Critically high 43.0-75.0 [facility] Comment on above: Performed By: #### E RUR #### [facility] [address] [address] [address] Deepika Terrell WBC 20.5 103/ul Critically high 4.0-11.0 [facility] Comment on above: Performed By: #### E RUR #### [facility] [address] [address] [address] Deepika Terrell FREE THYROXINE INDEX T7on FTI 1.95 Normal 1.30-4.50 [facility] Comment on above: Performed By: #### C BC #### [facility] [address] [place] [address] Dr. Deepika Terrell T3U 39.0 % Normal 33.0-40.0 [facility] Comment on above: Performed By: #### C BC #### [facility] [address] [place] [address] Dr. Deepika Terrell T4 [Mass/Vol] 5.00 ug/dL Normal 4.50-12.10 [facility] Comment on above: Performed By: #### C BC #### [facility] [address] [place] [address] Dr. Deepika Terrell LIPASEon 07-17-2022 Lipase [Catalytic activity/Vol] 126.0 U/L Normal 73.0-393.0 [facility] Comment on above: Performed By: #### C BC #### [facility] [address] [place] [address] Dr. Deepika Terrell LIVER PROFILEon 07-17-2022 Albumin [Mass/Vol] 3.7 g/dL Normal 3.4-5.0 [facility] Comment on above: Performed By: #### C BC #### [facility] [address] [place] [address] Dr. Deepika Terrell Albumin/Globulin [Mass ratio] 1.0 {ratio} Normal [facility] Comment on above: Performed By: #### C BC #### [facility] [address] [place] [address] Dr. Deepika Terrell ALP [Catalytic activity/Vol] 82 U/L Normal 46-116 [facility] Comment on above: Performed By: #### C BC #### [facility] [address] [place] [address] Dr. Deepika Terrell ALT [Catalytic activity/Vol] 33 U/L Normal 16-63 [facility] Comment on above: Performed By: #### C BC #### [facility] [address] [place] [address] Dr. Deepika Terrell AST [Catalytic activity/Vol] 15 U/L Normal 15-37 [facility] Comment on above: Performed By: #### C BC #### [facility] [address] [place] [address] Dr. Deepika Terrell BILI, CONJUGATED 0.1 mg/dL Normal 0.0-0.2 [facility] Comment on above: Performed By: #### C BC #### [facility] [address] [place] [address] Dr. Deepika Terrell Bilirubin [Mass/Vol] 0.2 mg/dL Normal 0.2-1.0 [facility] Comment on above: Performed By: #### C BC #### [facility] [address] [place] [address] Dr. Deepika Terrell Globulin (S) [Mass/Vol] 3.6 g/dL Normal [facility] Comment on above: Performed By: #### C BC #### [facility] [address] [place] [address] Dr. Deepika Terrell Protein [Mass/Vol] 7.3 g/dL Normal 6.4-8.2 [facility] Comment on above: Performed By: #### C BC #### [facility] [address] [place] [address] Dr. Deepika Terrell PERIPHERAL SMEARon 3 Pathologist Cyto stain Nom (Cvx/Vag) [ID] DR. ANNIKA NIETO Normal [facility] Comment on above: Result Comment: revi ew of smear reveals n/n w/aniso. plts. normal. leukocytosis with neutrophili and absolute monocytosis. no atypical lymphs, immature blasts seen. these findings are suggestive of a reactive process. clinical correlation is recommend Performed By: #### P ERSMR #### [facility] [address] [place] [address] Dr. Deepika Terrell PROF CHEM 8 (BAS METB)on Anion gap [Moles/Vol] 19.0 mmol/L Normal [facility] Comment on above: Performed By: #### C BC #### [facility] [address] [place] [address] Dr. Deepika Terrell Calcium [Mass/Vol] 9.5 mg/dL Normal 8.5-10.1 [facility] Comment on above: Performed By: #### C BC #### [facility] [address] [place] [address] Dr. Deepika Terrell Chloride [Moles/Vol] 112 mmol/L Critically high 98-107 [facility] Comment on above: Performed By: #### C BC #### [facility] [address] [place] [address] Dr. Deepika Terrell CO2 [Moles/Vol] 19.4 mmol/L Critically low 21.0-32.0 [facility] Comment on above: Performed By: #### C BC #### [facility] [address] [place] [address] Dr. Deepika Terrell Creatinine [Mass/Vol] 2.51 mg/dL Critically high 0.70-1.30 [facility] Comment on above: Performed By: #### C BC #### [facility] [address] [place] [address] Dr. Deepika Terrell EGFR-AF SENEGALESE 30 mL/min/1.73m2 Critically low >=60 [facility] Comment on above: Performed By: #### C BC #### [facility] [address] [place] [address] Dr. Deepika Terrell EGFR-NON AF SENEGALESE 24 mL/min/1.73m2 Critically low >=60 [facility] Comment on above: Performed By: #### C BC #### [facility] [address] [address] [address] Deepika Terrell Glucose [Mass/Vol] 159 mg/dL Critically high 74-106 [facility] Comment on above: Performed By: #### C BC #### [facility] [address] [address] [address] Deepika Terrell Potassium [Moles/Vol] 4.4 mmol/L Normal 3.5-5.1 [facility] Comment on above: Performed By: #### C BC #### [facility] [address] [address] [address] Deepika Terrell Sodium [Moles/Vol] 146 mmol/L Critically high 136-145 [facility] Comment on above: Performed By: #### C BC #### [facility] [address] [place] [address] Dr. Deepika Terrell Urea nitrogen [Mass/Vol] 67.0 mg/dL Critically high 7.0-18.0 [facility] Comment on above: Performed By: #### C BC #### [facility] [address] [address] [address] Deepika Terrell Urea nitrogen/Creatinin e [Mass ratio] 26.7 mg/mg Normal [facility] Comment on above: Performed By: #### C BC #### [facility] [address] [place] [address] Dr. Deepika Terrell TSHon 07-17-2022 TSH 0.884 uIU/mL Normal 0.358-3.740 [facility] Comment on above: Performed By: #### C BC #### [facility] [address] [place] [address] Dr. Deepika Terrell INSULIN FREE AND TOTALon Free Insulin 22 uU/mL Critically high [facility] Comment on above: Result Comment: Refe rence Range: Pubertal Children and Adults (fasting): 0 - 17 Performed By: #### I NSULT #### [facility] [address] [place] [address] Dr. Deepika Terrell Total Insulin 22 uU/mL Normal [facility] Comment on above: Result Comment: Non- Diabetic: In the absence of insulin- binding antibodies, the free and total insulin assays are equivalent. However, this assay is intended for use in diabetics with insulin autoantibody present. Measurement is performed on acid-treated samples and, therefore, the sensitivity and absolute values by this method may differ from our direct insulin ICMA. Insulin Dependent Diabetic Patients: Free Insulin levels vary depending on the capacity and affinity of circulating insulin-binding antibodies and the dose of insulin given to the patient. Total insulin levels represent free insulin and antibody bound insulin fractions. This test was developed and its performance characteristics determined by [employer]. It has not been cleared or approved by the Food and Drug Administration. Performed By: #### I NSULT #### [facility] [address] [place] [address] Dr. Deepika Terrell C-PEPTIDE, SERUMon 3 C-Peptide, Serum 7.7 ng/mL Critically high 1.1-4.4 [facility] Comment on above: Result Comment: C-Pe ptide reference interval is for fasting patients. Performed By: #### C PEPT #### [facility] [address] [place] [address] Dr. Deepika Terrell OVA AND PARASITE EXAMINATION on 06-04-2022 Ova + Parasite Exam Final report Normal [facility] Comment on above: Result Comment: Thes e results were obtained using wet preparation(s) and trichrome stained smear. This test does not include testing for Cryptosporidium parvum, Cyclospora, or Microsporidia. Performed By: #### B MP #### [facility] [address] [place] [address] Dr. Deepika Terrell Result 1 Comment Normal [facility] Comment on above: Result Comment: No o va, cysts, or parasites seen. . One negative specimen does not rule out the possibility of a parasitic infection. Performed By: #### B MP #### [facility] [address] [place] [address] Dr. Deepika Terrell CBC AUTO DIFFon 06-02-2022 BASO # 0.0 103/ul Normal 0.0-0.1 [facility] Comment on above: Performed By: #### I NSULT #### [facility] [address] [place] [address] Dr. Deepika Terrell Basophils/100 WBC (Bld) 0.4 % Normal 0.2-2.0 [facility] Comment on above: Performed By: #### I NSULT #### [facility] [address] [place] [address] Dr. Deepika Terrell EO # 0.4 103/ul Normal 0.0-0.7 [facility] Comment on above: Performed By: #### I NSULT #### [facility] [address] [address] [address] Deepika Terrell Eosinophils/100 WBC (Bld) 3.3 % Normal 0.9-7.0 [facility] Comment on above: Performed By: #### I NSULT #### [facility] [address] [place] [address] Dr. Deepika Terrell Erythrocyte distribution width (RBC) [Ratio] 14.6 % Normal 11.0-15.0 [facility] Comment on above: Performed By: #### I NSULT #### [facility] [address] [place] [address] Dr. Deepika Terrell Hematocrit (Bld) [Volume fraction] 29.8 % Critically low 42.0-54.0 [facility] Comment on above: Performed By: #### I NSULT #### [facility] [address] [place] [address] Dr. Deepika Terrell Hemoglobin (Bld) [Mass/Vol] 9.8 g/dL Critically low 14.0-18.0 [facility] Comment on above: Performed By: #### I NSULT #### [facility] [address] [place] [address] Dr. Deepika Terrell IG # 0.05 10e3/ul Critically high 0.00-0.03 [facility] Comment on above: Performed By: #### I NSULT #### [facility] [address] [place] [address] Dr. Deepika Terrell IG % 0.5 % Normal 0.0-0.5 [facility] Comment on above: Performed By: #### I NSULT #### [facility] [address] [address] [address] Deepika Terrell LYMPH # 1.9 103/ul Normal 1.2-3.8 [facility] Comment on above: Performed By: #### I NSULT #### [facility] [address] [address] [address] Deepika Terrell Lymphocytes/100 WBC (Bld) 17.3 % Critically low 20.5-60.0 [facility] Comment on above: Performed By: #### I NSULT #### [facility] [address] [address] [address] Deepika Terrell MANUAL DIFF REQ NO Normal [facility] Comment on above: Performed By: #### I NSULT #### [facility] [address] [place] [address] Dr. Deepika Terrell MCH (RBC) [Entitic mass] 29.9 pg Normal 25.9-34.0 [facility] Comment on above: Performed By: #### I NSULT #### [facility] [address] [place] [address] Dr. Deepika Terrell MCHC (RBC) [Mass/Vol] 32.9 g/dL Normal 29.9-35.2 [facility] Comment on above: Performed By: #### I NSULT #### [facility] [address] [place] [address] Dr. Deepika Terrell MCV (RBC) [Entitic vol] 90.9 fL Normal 80.0-94.0 [facility] Comment on above: Performed By: #### I NSULT #### [facility] [address] [place] [address] Dr. Deepika Terrell MONO # 0.8 103/ul Normal 0.3-0.8 [facility] Comment on above: Performed By: #### I NSULT #### [facility] [address] [place] [address] Dr. Deepika Terrell Monocytes/100 WBC (Bld) 7.4 % Normal 1.7-12.0 [facility] Comment on above: Performed By: #### I NSULT #### [facility] [address] [address] [address] Deepika Terrell NEUT # 7.9 103/ul Critically high 1.4-6.5 [facility] Comment on above: Performed By: #### I NSULT #### [facility] [address] [place] [address] Dr. Deepika Terrell Neutrophils/100 WBC (Bld) 71.1 % Normal 43.0-75.0 [facility] Comment on above: Performed By: #### I NSULT #### [facility] [address] [place] [address] Dr. Deepika Terrell Platelet mean volume (Bld) [Entitic vol] 10.7 fL Normal 9.5-13.5 [facility] Comment on above: Performed By: #### I NSULT #### [facility] [address] [place] [address] Dr. Deepika Terrell PLT 295 103/ul Normal 150-450 [facility] Comment on above: Performed By: #### I NSULT #### [facility] [address] [place] [address] Dr. Deepika Terrell RBC 3.28 106/ul Critically low 4.70-6.10 [facility] Comment on above: Performed By: #### I NSULT #### [facility] [address] [place] [address] Dr. Deepika Terrell WBC 11.1 103/ul Critically high 4.0-11.0 The [facility] Comment on above: Performed By: #### I NSULT #### [facility] [address] [place] [address] ABD/PELV W CONon 06-02-[address] ABD/PELV W CON CT ABD/PELV W CON: 06/01/2022 9:21 PM EST CLINICAL HISTORY: 87 years old Male with Abdominal distension, gaseous. TECHNIQUE: Axial CT images through the abdomen and pelvis are obtained after the intravenous administration of contrast. Coronal and sagittal reformations are also obtained. Dose reduction techniques were achieved by using automated exposure control and/or adjustment of mA and/or kV according to patient size and/or use of iterative reconstruction technique. COMPARISON: None available. FINDINGS: The lung bases are clear with no dependent infiltrate or effusion. Nonspecific interstitial thickenings are present possible pulmonary edema or nonspecific fibrosis. The liver, spleen, pancreas and bilateral adrenal glands are unremarkable. Small calcified choleliths is present within the gallbladder which is nondistended. No intrahepatic or extrahepatic biliary ductal dilatation. The bilateral kidneys demonstrate normal enhancement without hydronephrosis. 1.0 cm likely cyst of the upper pole of the left kidney is present. The bilateral ureters demonstrate no gross abnormality or obstruction. The stomach and small bowel are unremarkable. The appendix is not clearly delineated; however no pericecal inflammatory changes evident. Fecal stasis The colon is otherwise unremarkable. Left fat-containing inguinal hernia. The bladder appears unremarkable. There is no evidence of aortic aneurysm present. 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 No enlarged lymph nodes are seen. No free air or free fluid is seen. The prostate gland is enlarged at 4.9 x 4.2 x 4.3 cm in AP, transverse and longitudinal diameter. Diffuse discogenic degenerative change throughout the lumbar spine with vacuum disc phenomena and anterior as well as posterior disc osteophyte spurring with at least moderate spinal canal and moderate to severe neural foraminal narrowings. No acute compression fracture deformity or suspicious osseous abnormality is identified. IMPRESSION: 1. No acute intra-abdominal inflammatory process identified. No obstruction. Fecal stasis is present. 2. Cholelithiasis without evidence of acute cholecystitis. 3. Subcentimeter likely left renal cyst. 4. Prostamegaly. Correlation with PSA is recommended. 5. 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 Electronically authenticated by: YANIV DACOSTA Date: 2022-06-01 22:50 Normal [facility] Covid-19 PCR (CVDTB)on 05-09 SARS-CoV-2 (COVID-19) RNA DANICA+probe Ql (Unsp spec) Not detected Normal NOT DETECTED [facility] Comment on above: Result Comment: When diagnostic testing is negative, the possibility of a false negative should be considered in the context of a patient's recent exposures and the presence of clinical signs and symptoms consistent with SARS-CoV-2. This test is not yet approved or cleared by the [place] FDA. When there are no FDA-approved or cleared tests available, and other criteria are met, FDA can make tests available under an emergency access mechanism called an Emergency Use Authorization (EUA). The EUA for this test is supported by the Director Translational of Health and Human Service's declaration that circumstances exist to justify the emergency use of in vitro diagnostics for the detection and/or diagnosis of the virus that causes COVID-19. This EUA will remain in effect for the duration of the COVID-19 declaration justifying emergency of IVDs, unless it is terminated or revoked by the FDA (after which the test may no longer be used). Performed By: #### I NSULT #### [facility] [address] [place] [address] Dr. Deepika Terrell ER URINE PROFILEon 3 Bilirubin Ql (U) Negative Normal NEGATIVE [facility] Comment on above: Performed By: #### E RUR #### [facility] [address] [place] [address] Dr. Deepika Terrell Clarity (U) CLEAR Normal CLEAR [facility] Comment on above: Performed By: #### E RUR #### [facility] [address] [place] [address] Dr. Deepika Terrell Color (U) LT. YELLOW Normal YELLOW [facility] Comment on above: Performed By: #### E RUR #### [facility] [address] [place] [address] Dr. Deepika Terrell ERUAHD A micrscopic examina tion will be performed if indicated. Normal [facility] Comment on above: Performed By: #### E RUR #### [facility] [address] [place] [address] Dr. Deepika Terrell Glucose Ql (U) Negative Normal NEGATIVE [facility] Comment on above: Performed By: #### E RUR #### [facility] [address] [place] [address] Dr. Deepika Terrell Hemoglobin Ql (U) Negative Normal NEGATIVE [facility] Comment on above: Performed By: #### E RUR #### [facility] [address] [place] [address] Dr. Deepika Terrell Ketones Ql (U) Negative Normal NEGATIVE [facility] Comment on above: Performed By: #### E RUR #### [facility] [address] [place] [address] Dr. Deepika Terrell LEUKOCYTES Negative Normal NEGATIVE [facility] Comment on above: Performed By: #### E RUR #### [facility] [address] [place] [address] Dr. Deepika Terrell Nitrite Ql (U) Negative Normal NEGATIVE [facility] Comment on above: Performed By: #### E RUR #### [facility] [address] [place] [address] Dr. Deepika Terrell pH (U) 6.0 [pH] Normal 5-9 [facility] Comment on above: Performed By: #### E RUR #### [facility] [address] [place] [address] Dr. Deepika Terrell SPEC GRAVITY 1.010 Normal 1.005-<=1.02 5 [facility] Comment on above: Performed By: #### E RUR #### [facility] [address] [place] [address] Dr. Deepika Terrell UA PROTEIN Negative Normal NEGATIVE/ TRACE [facility] Comment on above: Performed By: #### E RUR #### [facility] [address] [place] [address] Dr. Deepika Terrell UR MICRO IND NOT INDICATED Normal [facility] Comment on above: Performed By: #### E RUR #### [facility] [address] [place] [address] Dr. Deepika Terrell Urobilinogen Qn (U) 0.2 {Jesus'U}/dL Normal 0.2 - 1.0 [facility] Comment on above: Performed By: #### E RUR #### [facility] [address] [place] [address] Dr. Deepika Terrell GLYCOHEMOGLOBIN A1Con 2022 ADA RECOMMENDATION SEE BELOW Normal [facility] Comment on above: Result Comment: ADA RECOMMENDED LIMIT 4.0 - 6.0 ADA THERAPEUTIC TARGET < 7.0 ACTION SUGGESTED > 7.0 Performed By: #### I NSULT #### [facility] [address] [address] [address] Deepika Terrell Glucose [Mass/Vol] 134 mg/dL Normal [facility] Comment on above: Performed By: #### I NSULT #### [facility] [address] [address] [address] Deepika Terrell HbA1c (Bld) [Mass fraction] 6.3 % Critically high 4.5-6.2 [facility] Comment on above: Performed By: #### I NSULT #### [facility] [address] [place] [address] Dr. Deepika Terrell POINT OF CARE GLUCOSEon 05-09 Glucose [Mass/Vol] 175 mg/dL Critically high 74-106 [facility] Comment on above: Performed By: #### I NSULT #### [facility] [address] [place] [address] Dr. Deepika Terrell Glucose [Mass/Vol] 151 mg/dL Critically high 74-106 [facility] Comment on above: Performed By: #### I NSULT #### [facility] [address] [place] [address] Dr. Deepika Terrell Glucose [Mass/Vol] 95 mg/dL Normal 74-106 [facility] Comment on above: Performed By: #### C BC #### [facility] [address] [place] [address] Dr. Deepika Terrell Glucose [Mass/Vol] 83 mg/dL Normal 74-106 [facility] Comment on above: Performed By: #### I NSULT #### [facility] [address] [place] [address] Dr. Deepika Terrell Glucose [Mass/Vol] 63 mg/dL Critically low 74-106 [facility] Comment on above: Performed By: #### P ERSMR #### [facility] [address] [place] [address] Dr. Deepika Terrell Glucose [Mass/Vol] 48 mg/dL Critically low 74-106 [facility] Comment on above: Result Comment: Resu lt Not Confirmed Performed By: #### B MP #### [facility] [address] [address] [address] Deepika Terrell Glucose [Mass/Vol] 62 mg/dL Critically low 74-106 [facility] Comment on above: Performed By: #### B MP #### [facility] [address] [address] [address] Deepika Terrell Glucose [Mass/Vol] 61 mg/dL Critically low 74-106 [facility] Comment on above: Performed By: #### C PEPT #### [facility] [address] [address] [address] Deepika Terrell PROF CHEM 8 (BAS METB)on Anion gap [Moles/Vol] 11.6 mmol/L Normal [facility] Comment on above: Performed By: #### B MP #### [facility] [address] [place] [address] Dr. Deepika Terrell Calcium [Mass/Vol] 8.2 mg/dL Critically low 8.5-10.1 [facility] Comment on above: Performed By: #### B MP #### [facility] [address] [place] [address] Dr. Deepika Terrell Chloride [Moles/Vol] 111 mmol/L Critically high 98-107 [facility] Comment on above: Performed By: #### B MP #### [facility] [address] [place] [address] Dr. Deepika Terrell CO2 [Moles/Vol] 23.5 mmol/L Normal 21.0-32.0 [facility] Comment on above: Performed By: #### B MP #### [facility] [address] [place] [address] Dr. Deepika Terrell Creatinine [Mass/Vol] 1.32 mg/dL Critically high 0.70-1.30 [facility] Comment on above: Performed By: #### B MP #### [facility] [address] [place] [address] Dr. Deepika Terrell EGFR-AF SENEGALESE >60 Normal >=60 [facility] Comment on above: Performed By: #### B MP #### [facility] [address] [address] [address] Deepika Terrell EGFR-NON AF SENEGALESE 51 mL/min/1.73m2 Critically low >=60 [facility] Comment on above: Performed By: #### B MP #### [facility] [address] [address] [address] Deepika Terrell Glucose [Mass/Vol] 91 mg/dL Normal 74-106 [facility] Comment on above: Performed By: #### B MP #### [facility] [address] [address] [address] Deepika Terrell Potassium [Moles/Vol] 4.1 mmol/L Normal 3.5-5.1 [facility] Comment on above: Performed By: #### B MP #### [facility] [address] [address] [address] Deepika Terrell Sodium [Moles/Vol] 142 mmol/L Normal 136-145 [facility] Comment on above: Performed By: #### B MP #### [facility] [address] [address] [address] Deepika Terrell Urea nitrogen [Mass/Vol] 29.0 mg/dL Critically high 7.0-18.0 [facility] Comment on above: Performed By: #### B MP #### [facility] [address] [address] [address] Deepika Terrell Urea nitrogen/Creatinin e [Mass ratio] 22.0 mg/mg Normal [facility] Comment on above: Performed By: #### B MP #### [facility] [address] [address] [address] Deepika Terrell AMMONIAon 06-01-2022 Ammonia (P) [Moles/Vol] 17 umol/L Normal 11-32 [facility] Comment on above: Performed By: #### C BC #### [facility] [address] [address] [address] Deepika Terrell BNPon 06-01-2022 Natriuretic peptide B (Bld) [Mass/Vol] 132.0 pg/mL Normal <=1,800.0 [facility] Comment on above: Performed By: #### C BC #### [facility] [address] [place] [address] Dr. Deepika Terrell CBC AUTO DIFFon 06-01-2022 BASO # 0.1 103/ul Normal 0.0-0.1 [facility] Comment on above: Performed By: #### C BC #### [facility] [address] [place] [address] Dr. Deepika Terrell Basophils/100 WBC (Bld) 0.3 % Normal 0.2-2.0 [facility] Comment on above: Performed By: #### C BC #### [facility] [address] [place] [address] Dr. Deepika Terrell EO # 0.1 103/ul Normal 0.0-0.7 [facility] Comment on above: Performed By: #### C BC #### [facility] [address] [place] [address] Dr. Deepika Terrell Eosinophils/100 WBC (Bld) 0.9 % Normal 0.9-7.0 [facility] Comment on above: Performed By: #### C BC #### [facility] [address] [place] [address] Dr. Deepika Terrell Erythrocyte distribution width (RBC) [Ratio] 14.7 % Normal 11.0-15.0 [facility] Comment on above: Performed By: #### C BC #### [facility] [address] [place] [address] Dr. Deepika Terrell Hematocrit (Bld) [Volume fraction] 33.6 % Critically low 42.0-54.0 [facility] Comment on above: Performed By: #### C BC #### [facility] [address] [place] [address] Dr. Deepika Terrell Hemoglobin (Bld) [Mass/Vol] 10.9 g/dL Critically low 14.0-18.0 [facility] Comment on above: Performed By: #### C BC #### [facility] [address] [place] [address] Dr. Deepika Terrell IG # 0.07 10e3/ul Critically high 0.00-0.03 [facility] Comment on above: Performed By: #### C BC #### [facility] [address] [place] [address] Dr. Deepika Terrell IG % 0.5 % Normal 0.0-0.5 [facility] Comment on above: Performed By: #### C BC #### [facility] [address] [place] [address] Dr. Deepika Terrell LYMPH # 1.5 103/ul Normal 1.2-3.8 [facility] Comment on above: Performed By: #### C BC #### [facility] [address] [place] [address] Dr. Deepika Terrell Lymphocytes/100 WBC (Bld) 10.3 % Critically low 20.5-60.0 [facility] Comment on above: Performed By: #### C BC #### [facility] [address] [place] [address] Dr. Deepika Terrell MANUAL DIFF REQ NO Normal [facility] Comment on above: Performed By: #### C BC #### [facility] [address] [place] [address] Dr. Deepika Terrell MCH (RBC) [Entitic mass] 29.9 pg Normal 25.9-34.0 [facility] Comment on above: Performed By: #### C BC #### [facility] [address] [place] [address] Dr. Deepika Terrell MCHC (RBC) [Mass/Vol] 32.4 g/dL Normal 29.9-35.2 [facility] Comment on above: Performed By: #### C BC #### [facility] [address] [place] [address] Dr. Deepika Terrell MCV (RBC) [Entitic vol] 92.1 fL Normal 80.0-94.0 [facility] Comment on above: Performed By: #### C BC #### [facility] [address] [place] [address] Dr. Deepika Terrell MONO # 1.3 103/ul Critically high 0.3-0.8 [facility] Comment on above: Performed By: #### C BC #### [facility] [address] [address] [address] Deepika Terrell Monocytes/100 WBC (Bld) 8.9 % Normal 1.7-12.0 [facility] Comment on above: Performed By: #### C BC #### [facility] [address] [address] [address] Deepika Terrell NEUT # 11.8 103/ul Critically high 1.4-6.5 [facility] Comment on above: Performed By: #### C BC #### [facility] [address] [address] [address] Deepika Terrell Neutrophils/100 WBC (Bld) 79.1 % Critically high 43.0-75.0 [facility] Comment on above: Performed By: #### C BC #### [facility] [address] [place] [address] Dr. Deepika Terrell Platelet mean volume (Bld) [Entitic vol] 11.4 fL Normal 9.5-13.5 [facility] Comment on above: Performed By: #### C BC #### [facility] [address] [place] [address] Dr. Deepika Terrell PLT 324 103/ul Normal 150-450 [facility] Comment on above: Performed By: #### C BC #### [facility] [address] [address] [address] Deepika Terrell RBC 3.65 106/ul Critically low 4.70-6.10 [facility] Comment on above: Performed By: #### C BC #### [facility] [address] [address] [address] Deepika Terrell WBC 14.9 103/ul Critically high 4.0-11.0 [facility] Comment on above: Performed By: #### C BC #### [facility] [address] [place] [address] Dr. Deepika Terrell POINT OF CARE GLUCOSEon 05-09 Glucose [Mass/Vol] 29 mg/dL Critically low 74-106 [facility] Comment on above: Result Comment: Resu lt Not Confirmed Performed By: #### B MP #### [facility] [address] [place] [address] Dr. Deepika Terrell Glucose [Mass/Vol] 28 mg/dL Critically low 74-106 [facility] Comment on above: Result Comment: Will Repeat Test Performed By: #### C PEPT #### [facility] [address] [place] [address] Dr. Deepika Terrell PROF 14(COMP METB)on 023 Albumin [Mass/Vol] 3.3 g/dL Critically low 3.4-5.0 [facility] Comment on above: Performed By: #### C BC #### [facility] [address] [place] [address] Dr. Deepika Terrell Albumin/Globulin [Mass ratio] 1.0 {ratio} Normal [facility] Comment on above: Performed By: #### C BC #### [facility] [address] [place] [address] Dr. Deepika Terrell ALP [Catalytic activity/Vol] 75 U/L Normal 46-116 [facility] Comment on above: Performed By: #### C BC #### [facility] [address] [place] [address] Dr. Deepika Terrell ALT [Catalytic activity/Vol] 34 U/L Normal 16-63 [facility] Comment on above: Performed By: #### C BC #### [facility] Laboratory [address] [place] [address] Dr. Deepika Terrell Anion gap [Moles/Vol] 14.0 mmol/L Normal [facility] Comment on above: Performed By: #### C BC #### [facility] [address] [place] [address] Dr. Deepika Terrell AST [Catalytic activity/Vol] 19 U/L Normal 15-37 [facility] Comment on above: Performed By: #### C BC #### [facility] [address] [place] [address] Dr. Deepika Terrell Bilirubin [Mass/Vol] 0.2 mg/dL Normal 0.2-1.0 [facility] Comment on above: Performed By: #### C BC #### [facility] [address] [address] [address] Deepika Terrell Calcium [Mass/Vol] 8.6 mg/dL Normal 8.5-10.1 [facility] Comment on above: Performed By: #### C BC #### [facility] [address] [address] [address] Deepika Terrell Chloride [Moles/Vol] 109 mmol/L Critically high 98-107 [facility] Comment on above: Performed By: #### C BC #### [facility] [address] [address] [address] Deepika Terrell CO2 [Moles/Vol] 23.9 mmol/L Normal 21.0-32.0 [facility] Comment on above: Performed By: #### C BC #### [facility] [address] [address] [address] Deepika Terrell Creatinine [Mass/Vol] 1.59 mg/dL Critically high 0.70-1.30 [facility] Comment on above: Performed By: #### C BC #### [facility] [address] [address] [address] Deepika Terrell EGFR-AF SENEGALESE 50 mL/min/1.73m2 Critically low >=60 [facility] Comment on above: Performed By: #### C BC #### [facility] [address] [address] [address] Deepika Terrell EGFR-NON AF SENEGALESE 41 mL/min/1.73m2 Critically low >=60 [facility] Comment on above: Performed By: #### C BC #### [facility] [address] [address] [address] Deepika Terrell Globulin (S) [Mass/Vol] 3.3 g/dL Normal [facility] Comment on above: Performed By: #### C BC #### [facility] [address] [address] [address] Deepika Terrell Glucose [Mass/Vol] 26 mg/dL Critically low 74-106 [facility] Comment on above: Performed By: #### C BC #### [facility] [address] [address] [address] Deepika Terrell Potassium [Moles/Vol] 3.9 mmol/L Normal 3.5-5.1 [facility] Comment on above: Performed By: #### C BC #### [facility] [address] [address] [address] Deepika Terrell Protein [Mass/Vol] 6.6 g/dL Normal 6.4-8.2 [facility] Comment on above: Performed By: #### C BC #### [facility] [address] [address] [address] Deepika Terrell Sodium [Moles/Vol] 143 mmol/L Normal 136-145 [facility] Comment on above: Performed By: #### C BC #### [facility] [address] [address] [address] Deepika Terrell Urea nitrogen [Mass/Vol] 34.0 mg/dL Critically high 7.0-18.0 [facility] Comment on above: Performed By: #### C BC #### [facility] [address] [address] [address] Deepika Terrell Urea nitrogen/Creatinin e [Mass ratio] 21.4 mg/mg Normal [facility] Comment on above: Performed By: #### C BC #### [facility] [address] [address] [address] Deepika Terrell TROPONIN, HIGH SENSITIVITYon 06-01-2022 HSTROP 13.2 pg/mL Normal 4.0-76.1 [facility] Comment on above: Result Comment: CUT- OFF POINTS HAVE BEEN ESTABLISHED BASED ON THE FOURTH UNIVERSAL DEFINITIONS OF MYOCARDIAL INFARCTION. THE UPPER REFERENCE LIMIT (URL) OF TROPONIN, DEFINED THE 99TH PERCENTILE OF cTnI DISTRIBUTION IN A REFERENCE POPULATION, HAS BEEN CONFIRMED THE DECISION THRESHOLD FOR CO DIAGNOSIS. Performed By: #### B MP #### [facility] [address] [address] [address] Deepika Terrell GI PANEL (PCR)on 05-30-2022 Adenovirus F 40/41 Not detected Normal NOT DETECTED [facility] Comment on above: Performed By: #### P ERSMR #### [facility] [address] [address] [address] Deepika Terrell Astrovirus Not detected Normal NOT DETECTED [facility] Comment on above: Performed By: #### P ERSMR #### [facility] [address] [place] [address] Dr. Deepika Terrell C. Diff toxin A/B Not detected Normal NOT DETECTED [facility] Comment on above: Performed By: #### P ERSMR #### [facility] [address] [place] [address] Dr. Deepika Terrell Campylobacter Not detected Normal NOT DETECTED [facility] Comment on above: Performed By: #### P ERSMR #### [facility] [address] [place] [address] Dr. Deepika Terrell Cryptosporidium Not detected Normal NOT DETECTED [facility] Comment on above: Performed By: #### P ERSMR #### [facility] [address] [place] [address] Dr. Deepika Terrell Cyclos. Cayetanensis Not detected Normal NOT DETECTED [facility] Comment on above: Performed By: #### P ERSMR #### [facility] [address] [place] [address] Dr. Deepika Terrell E. Coli O157 Not Applicable Normal Not Applicable [facility] Comment on above: Performed By: #### P ERSMR #### [facility] [address] [place] [address] Dr. Deepika Terrell E. histolytica Not detected Normal NOT DETECTED [facility] Comment on above: Performed By: #### P ERSMR #### [facility] [address] [place] [address] Dr. Deepika Terrell EAEC Not detected Normal NOT DETECTED [facility] Comment on above: Performed By: #### P ERSMR #### [facility] [address] [place] [address] Dr. Deepika Terrell EIEC Not detected Normal NOT DETECTED [facility] Comment on above: Performed By: #### P ERSMR #### [facility] [address] [address] [address] Deepika Terrell EPEC Not detected Normal NOT DETECTED [facility] Comment on above: Performed By: #### P ERSMR #### [facility] [address] [address] [address] Deepika Terrell ETEC Not detected Normal NOT DETECTED [facility] Comment on above: Performed By: #### P ERSMR #### [facility] [address] [address] [address] Deepika Terrell G. Lamblia Not detected Normal NOT DETECTED [facility] Comment on above: Performed By: #### P ERSMR #### [facility] [address] [place] [address] Dr. Deepika WOLFE CONTROLS PASSED Normal The [facility] Comment on above: Performed By: #### P ERSMR #### [facility] [address] [place] [address] Dr. Deepika RYAN HEADER GI PANEL BACTERIA Normal [facility] Comment on above: Performed By: #### P ERSMR #### [facility] [address] [place] [address] Dr. Deepika CACERES ECOLI GI PANEL DIARRHEAGEN IC E.COLI / SHIGELLA Normal [facility] Comment on above: Performed By: #### P ERSMR #### [facility] [address] [place] [address] Dr. Deepika CACERES INFO SEE BELOW Normal [facility] Comment on above: Result Comment: EAEC - Enteroaggregative E. Coli EPEC- Enteropathogenic E. Coli ETEC- Enterotoxigenic E. Coli lt/st STEC- Shigella-like toxin-producing E. Coli stx1/stx2 EIEC- Shigella/Enteroinvasive E. Coli Performed By: #### P ERSMR #### [facility] [address] [place] [address] Dr. Deepika CACERES PARASITES GI PANEL PARASITES Normal [facility] Comment on above: Performed By: #### P ERSMR #### [facility] [address] [place] [address] Dr. Deepika Terrell GIPNLHD VIRUS GI PANEL VIRUSES Normal [facility] Comment on above: Performed By: #### P ERSMR #### [facility] [address] [place] [address] Dr. Deepika Terrell Norovirus GI/GII Not detected Normal NOT DETECTED [facility] Comment on above: Performed By: #### P ERSMR #### [facility] [address] [place] [address] Dr. Deepika Terrell P. Shigelloides Not detected Normal NOT DETECTED [facility] Comment on above: Performed By: #### P ERSMR #### [facility] [address] [address] [address] Deepika Terrell Rotavirus A Not detected Normal NOT DETECTED [facility] Comment on above: Performed By: #### P ERSMR #### [facility] [address] [place] [address] Dr. Deepika Terrell Salmonella Not detected Normal NOT DETECTED [facility] Comment on above: Performed By: #### P ERSMR #### [facility] [address] [place] [address] Dr. Deepika Terrell Sapovirus Not detected Normal NOT DETECTED [facility] Comment on above: Performed By: #### P ERSMR #### [facility] [address] [place] [address] Dr. Deepika Terrell STEC Not detected Normal NOT DETECTED [facility] Comment on above: Performed By: #### P ERSMR #### [facility] [address] [place] [address] Dr. Deepika Terrell Vibrio Not detected Normal NOT DETECTED [facility] Comment on above: Performed By: #### P ERSMR #### [facility] [address] [address] [address] Deepika Terrell Vibrio Cholera Not detected Normal NOT DETECTED [facility] Comment on above: Performed By: #### P ERSMR #### [facility] [address] [place] [address] Dr. Deepika Terrell Y. Enterocolitica Not detected Normal NOT DETECTED [facility] Comment on above: Performed By: #### P ERSMR #### [facility] [address] [address] [address] Deepika Terrell PROF CHEM 8 (BAS METB)on Anion gap [Moles/Vol] 13.9 mmol/L Normal [facility] Comment on above: Performed By: #### P ERSMR #### [facility] [address] [address] [address] Deepika Terrell Calcium [Mass/Vol] 8.9 mg/dL Normal 8.5-10.1 [facility] Comment on above: Performed By: #### P ERSMR #### [facility] [address] [address] [address] Deepika Terrell Chloride [Moles/Vol] 104 mmol/L Normal 98-107 [facility] Comment on above: Performed By: #### P ERSMR #### [facility] [address] [place] [address] Dr. Deepika Terrell CO2 [Moles/Vol] 26.3 mmol/L Normal 21.0-32.0 [facility] Comment on above: Performed By: #### P ERSMR #### [facility] [address] [place] [address] Dr. Deepika Terrell Creatinine [Mass/Vol] 1.70 mg/dL Critically high 0.70-1.30 [facility] Comment on above: Performed By: #### P ERSMR #### [facility] [address] [address] [address] Deepika Terrell EGFR-AF SENEGALESE 47 mL/min/1.73m2 Critically low >=60 [facility] Comment on above: Performed By: #### P ERSMR #### [facility] [address] [address] [address] Deepika Terrell EGFR-NON AF SENEGALESE 38 mL/min/1.73m2 Critically low >=60 [facility] Comment on above: Performed By: #### P ERSMR #### [facility] [address] [address] [address] Deepika Terrell Glucose [Mass/Vol] 62 mg/dL Critically low 74-106 Th [facility] Comment on above: Performed By: #### P ERSMR #### [facility] [address] [address] [address] Deepika Terrell Potassium [Moles/Vol] 4.2 mmol/L Normal 3.5-5.1 [facility] Comment on above: Performed By: #### P ERSMR #### [facility] [address] [address] [address] Deepika Terrell Sodium [Moles/Vol] 140 mmol/L Normal 136-145 [facility] Comment on above: Performed By: #### P ERSMR #### [facility] [address] [address] [address] Deepika Terrell Urea nitrogen [Mass/Vol] 34.0 mg/dL Critically high 7.0-18.0 [facility] Comment on above: Performed By: #### P ERSMR #### [facility] [address] [address] [address] Deepika Terrell Urea nitrogen/Creatinin e [Mass ratio] 20.0 mg/mg Normal [facility] Comment on above: Performed By: #### P ERSMR #### [facility] [address] [place] [address] Dr. Deepika Terrell ECHOCARDIO M/2D COMPLETEon 1 06-02-2021 ECHOCARDIO M/2D COMPLETE Patient: LILIANA NATARAJAN Exam Date: 04/01/2022 : 1935 Gender:M Ordering : ARNEL KELLOGG Admission #: [id number] Family : Order #: [id number] CLICK HERE TO VIEW EXAM ECHOCARDIOGRAM REPORT PROCEDURE: CARDIO PULMONARY ECHOCARDIO M/2D COMP INDICATIONS: Peripheral edema COMPARISON: None. DESCRIPTION: COMPLETE ECHOCARDIOGRAM Real-time transthoracic echocardiography with 2D, M-mode, spectral and color flow Doppler performed. QUALITY: Technical quality was good. LEFT VENTRICLE: Normal chamber size. Moderate concentric left ventricular hypertrophy. LV EF: Global left ventricular systolic function is normal. Calculated left ventricular ejection fraction is 65%. DIASTOLIC: Diastolic function is indeterminate. ATRIAL SEPTUM: Inadequately seen. LEFT ATRIUM: Moderate dilatation. RIGHT ATRIUM: Normal chamber size. RIGHT VENTRICLE: Normal chamber size. Normal right ventricular systolic function. TRICUSPID VALVE: Normal mobility and thickness. No stenosis with trivial regurgitation. Mild pulmonary hypertension. RVSP 39mmHg MITRAL VALVE: Normal mobility and thickness. No mitral valve prolapse. No evidence of mitral valve stenosis. There is no mitral annular calcification. Trivial mitral regurgitation. AORTIC VALVE: Normal trileaflet appearance. Mildly calcified aortic valve. Normal leaflet mobility. No evidence of aortic valve stenosis. Trivial aortic regurgitation. AORTIC ROOT: Normal diameter and appearance. PULMONIC VALVE: Normal thickness and mobility. No stenosis. Trivial regurgitation. PERICARDIUM: No evidence of pericardial effusion. IVC: Collapses with inspirations. Normal size CONCLUSION: Global left ventricular systolic function is normal; visually estimated ejection fraction is 60 to 65%. Moderate left ventricular hypertrophy. Diastolic function is indeterminate. The left atrium is dilated. The right ventricle is normal in size and systolic function. Mildly elevated right-sided pressures. No significant valvular abnormalities. Adult Echocardiography Procedure Report Left Ventricle LVEDD (3.7 - 5.6 cm): 4.93 cm LVESD (2.2 - 4.0 cm): 3.32 cm LVIVS thickness (0.6 - 1.2 cm): 1.30 cm LVPW thickness (0.5 - 1.0 cm): 1.44 cm e': 0.10 m/s E - e': 10.54 LVOT Max Gradient: 7.39 mm[Hg] Peak Velocity (LVOT): 1.36 m/s Mean Velocity (LVOT): 0.88 m/s LVOT Diameter 2.07 cm Left Ventricular Ejection Fraction: 60.96 %, 60.96 % Left Atrium LA Volume Index (2D A2C): 94.64 ml, 94.64 ml Left Atrium Systolic Dimension: 3.24 cm Mitral Valve MV E to A Ratio: 0.79 Mitral Valve A-Wave Peak Velocity: 1.32 m/s Mitral Valve E-Wave Peak Velocity: 1.04 m/s Right Ventricle RV Internal Diastolic Dimension: 3.19 cm Aorta AO Root Diam: 3.35 cm Ascending Ao Diam: 2.42 cm Aortic Valve AoV Area (Peak Eliseo): 2.25 cm2, 2.25 cm2 AoV Area (VTI): 2.65 cm2, 2.65 cm2 Peak Velocity(Antegrade Flow): 2.03 m/s Peak Gradient(Antegrade Flow): 16.54 mm[Hg] Mean Velocity(Antegrade Flow): 1.22 m/s Mean Gradient(Antegrade Flow): 7.27 mm[Hg] Velocity Time Integral: 43.80 cm Tricuspid Valve Peak Velocity (Regurgitant Flow): 3.01 m/s, 2.62 m/s Peak Velocity: 0.69 m/s Pulmonic Valve Mean Gradient: 1.88 mm[Hg] Mean Velocity: 0.66 m/s Peak Velocity: 0.86 m/s, 1.34 m/s Peak Gradient: 7.18 mm[Hg], 2.94 mm[Hg] Right Atrium Right Atrium Systolic Pressure: 33.31 ml, 33.31 ml Dictated by: Keanu Bain M.D. on 04/09/2022 at 08:45 Approved by: Keanu Bain M.D. on 04/09/2022 at 08:52 Normal [facility] CBC AUTO DIFFon 02-05-2022 BASO # 0.1 103/ul Normal 0.0-0.1 [facility] Comment on above: Performed By: #### C BC #### [facility] [address] [place] [address] Dr. Deepika Terrell Basophils/100 WBC (Bld) 0.5 % Normal 0.2-2.0 [facility] Comment on above: Performed By: #### C BC #### [facility] [address] [place] [address] Dr. Deepika Terrell EO # 0.3 103/ul Normal 0.0-0.7 [facility] Comment on above: Performed By: #### C BC #### [facility] [address] [place] [address] Dr. Deepika Terrell Eosinophils/100 WBC (Bld) 3.3 % Normal 0.9-7.0 [facility] Comment on above: Performed By: #### C BC #### [facility] [address] [place] [address] Dr. Deepika Terrell Erythrocyte distribution width (RBC) [Ratio] 14.0 % Normal 11.0-15.0 [facility] Comment on above: Performed By: #### C BC #### [facility] [address] [place] [address] Dr. Deepika Terrell Hematocrit (Bld) [Volume fraction] 41.2 % Critically low 42.0-54.0 [facility] Comment on above: Performed By: #### C BC #### [facility] [address] [address] [address] Deepika Terrell Hemoglobin (Bld) [Mass/Vol] 13.4 g/dL Critically low 14.0-18.0 [facility] Comment on above: Performed By: #### C BC #### [facility] [address] [place] [address] Dr. Deepika Terrell IG # 0.04 10e3/ul Critically high 0.00-0.03 [facility] Comment on above: Performed By: #### C BC #### [facility] [address] [place] [address] Dr. Deepika Terrell IG % 0.4 % Normal 0.0-0.5 [facility] Comment on above: Performed By: #### C BC #### [facility] [address] [place] [address] Dr. Deepika Terrell LYMPH # 3.4 103/ul Normal 1.2-3.8 [facility] Comment on above: Performed By: #### C BC #### [facility] [address] [place] [address] Dr. Deepika Terrell Lymphocytes/100 WBC (Bld) 36.2 % Normal 20.5-60.0 [facility] Comment on above: Performed By: #### C BC #### [facility] [address] [place] [address] Dr. Deepika Terrell MANUAL DIFF REQ NO Normal [facility] Comment on above: Performed By: #### C BC #### [facility] [address] [place] [address] Dr. Deepika Terrell MCH (RBC) [Entitic mass] 30.9 pg Normal 25.9-34.0 [facility] Comment on above: Performed By: #### C BC #### [facility] [address] [address] [address] Deepika Terrell MCHC (RBC) [Mass/Vol] 32.5 g/dL Normal 29.9-35.2 [facility] Comment on above: Performed By: #### C BC #### [facility] [address] [place] [address] Dr. Deepika Terrell MCV (RBC) [Entitic vol] 94.9 fL Critically high 80.0-94.0 [facility] Comment on above: Performed By: #### C BC #### [facility] [address] [place] [address] Dr. Deepika Terrell MONO # 0.9 103/ul Critically high 0.3-0.8 [facility] Comment on above: Performed By: #### C BC #### [facility] [address] [place] [address] Dr. Deepika Terrell Monocytes/100 WBC (Bld) 9.9 % Normal 1.7-12.0 [facility] Comment on above: Performed By: #### C BC #### [facility] [address] [place] [address] Dr. Deepika Terrell NEUT # 4.7 103/ul Normal 1.4-6.5 [facility] Comment on above: Performed By: #### C BC #### [facility] [address] [place] [address] Dr. Deepika Terrell Neutrophils/100 WBC (Bld) 49.7 % Normal 43.0-75.0 [facility] Comment on above: Performed By: #### C BC #### [facility] [address] [place] [address] Dr. Deepika Terrell Platelet mean volume (Bld) [Entitic vol] 10.1 fL Normal 9.5-13.5 [facility] Comment on above: Performed By: #### C BC #### [facility] [address] [place] [address] Dr. Deepika Terrell PLT 290 103/ul Normal 150-450 [facility] Comment on above: Performed By: #### C BC #### [facility] [address] [place] [address] Dr. Deepika Terrell RBC 4.34 106/ul Critically low 4.70-6.10 [facility] Comment on above: Performed By: #### C BC #### [facility] [address] [address] [address] Deepika Terrell WBC 9.4 103/ul Normal 4.0-11.0 [facility] Comment on above: Performed By: #### C BC #### [facility] [address] [address] [address] Deepika Terrell FREE T3on 02-05-2022 FREE T3 1.83 pg/mlL Critically low 2.18-3.98 [facility] Comment on above: Performed By: #### C PEPT #### [facility] [address] [place] [address] Dr. Deepika Terrell GLYCOHEMOGLOBIN A1Con 2021 ADA RECOMMENDATION SEE BELOW Normal [facility] Comment on above: Result Comment: ADA RECOMMENDED LIMIT 4.0 - 6.0 ADA THERAPEUTIC TARGET < 7.0 ACTION SUGGESTED > 7.0 Performed By: #### A 1C #### [facility] [address] [place] [address] Dr. Deepika Terrell Glucose [Mass/Vol] 114 mg/dL Normal [facility] Comment on above: Performed By: #### A 1C #### [facility] [address] [place] [address] Dr. Deepika Terrell HbA1c (Bld) [Mass fraction] 5.6 % Normal 4.5-6.2 [facility] Comment on above: Performed By: #### A 1C #### [facility] [address] [place] [address] Dr. Deepika Terrell LIPID PROFILEon 02-05-2022 CHOL-HDL RATIO NORM SEE BELOW Normal [facility] Comment on above: Result Comment: 3.3 - 4.4 LOW RISK 4.4 - 7.1 AVERAGE RISK 7.1 - 11.0 MODERATE RISK >11.0 HIGH RISK Performed By: #### C PEPT #### [facility] [address] [place] [address] Dr. Deepika Terrell Cholesterol [Mass/Vol] 187 mg/dL Normal <=200 [facility] Comment on above: Performed By: #### C PEPT #### [facility] [address] [place] [address] Dr. Deepika Terrell Cholesterol in HDL [Mass/Vol] 49 mg/dL Normal 40-60 [facility] Comment on above: Performed By: #### C PEPT #### [facility] [address] [place] [address] Dr. Deepika Terrell Cholesterol in LDL [Mass/Vol] 123.8 mg/dL Normal [facility] Comment on above: Performed By: #### C PEPT #### [facility] [address] [place] [address] Dr. Deepika Terrell Cholesterol.total/ Cholesterol in HDL [Mass ratio] 3.8 {ratio} Normal [facility] Comment on above: Performed By: #### C PEPT #### [facility] [address] [place] [address] Dr. Deepika Terrell HDL NORMAL > or = 60 mg/dl - LO W CARDIOVASCULAR RISK <40 mg/dl - HIGH CARDIOVASCULAR RISK Normal [facility] Comment on above: Performed By: #### C PEPT #### [facility] [address] [place] [address] Dr. Deepika eTrrell LDL CALC NORMAL SEE BELOW Normal [facility] Comment on above: Result Comment: <100 mg/dl OPTIMAL 100 - 129 mg/dl NEAR OR ABOVE OPTIMAL 130 - 159 mg/dl BORDERLINE HIGH 160 - 189 mg/dl HIGH >190 mg/dl VERY HIGH Performed By: #### C PEPT #### [facility] [address] [place] [address] Dr. Deepika Terrell Triglyceride [Mass/Vol] 71 mg/dL Normal <=150 [facility] Comment on above: Performed By: #### C PEPT #### [facility] [address] [place] [address] Dr. Deepika Terrell VLDL CALC 14.2 mg/dL Normal [facility] Comment on above: Performed By: #### C PEPT #### [facility] [address] [place] [address] Dr. Deepika Terrell PROF 14(COMP METB)on 022 Albumin [Mass/Vol] 4.0 g/dL Normal 3.4-5.0 [facility] Comment on above: Performed By: #### C PEPT #### [facility] [address] [place] [address] Dr. Deepika Terrell Albumin/Globulin [Mass ratio] 1.2 {ratio} Normal [facility] Comment on above: Performed By: #### C PEPT #### [facility] [address] [place] [address] Dr. Depeika Terrell ALP [Catalytic activity/Vol] 61 U/L Normal 46-116 [facility] Comment on above: Performed By: #### C PEPT #### [facility] [address] [place] [address] Dr. Deepika Terrell ALT [Catalytic activity/Vol] 38 U/L Normal 16-63 [facility] Comment on above: Performed By: #### C PEPT #### [facility] [address] [place] [address] Dr. Deepika Terrell Anion gap [Moles/Vol] 8.1 mmol/L Normal [facility] Comment on above: Performed By: #### C PEPT #### [facility] [address] [place] [address] Dr. Deepika Terrell AST [Catalytic activity/Vol] 19 U/L Normal 15-37 [facility] Comment on above: Performed By: #### C PEPT #### [facility] [address] [place] [address] Dr. Deepika Terrell Bilirubin [Mass/Vol] 0.4 mg/dL Normal 0.2-1.0 [facility] Comment on above: Performed By: #### C PEPT #### [facility] [address] [place] [address] Dr. Deepika Terrell Calcium [Mass/Vol] 9.4 mg/dL Normal 8.5-10.1 [facility] Comment on above: Performed By: #### C PEPT #### [facility] [address] [place] [address] Dr. Deepika Terrell Chloride [Moles/Vol] 104 mmol/L Normal 98-107 [facility] Comment on above: Performed By: #### C PEPT #### [facility] [address] [place] [address] Dr. Deepika Terrell CO2 [Moles/Vol] 32.6 mmol/L Critically high 21.0-32.0 [facility] Comment on above: Performed By: #### C PEPT #### [facility] [address] [place] [address] Dr. Deepika Terrell Creatinine [Mass/Vol] 1.63 mg/dL Critically high 0.70-1.30 [facility] Comment on above: Performed By: #### C PEPT #### [facility] [address] [place] [address] Dr. Deepika Terrell EGFR-AF SENEGALESE 49 mL/min/1.73m2 Critically low >=60 [facility] Comment on above: Performed By: #### C PEPT #### [facility] [address] [place] [address] Dr. Deepika Terrell EGFR-NON AF SENEGALESE 40 mL/min/1.73m2 Critically low >=60 [facility] Comment on above: Performed By: #### C PEPT #### [facility] [address] [place] [address] Dr. Deepika Terrell Globulin (S) [Mass/Vol] 3.3 g/dL Normal [facility] Comment on above: Performed By: #### C PEPT #### [facility] [address] [place] [address] Dr. Deepika Terrell Glucose [Mass/Vol] 127 mg/dL Critically high 74-106 [facility] Comment on above: Performed By: #### C PEPT #### [facility] [address] [place] [address] Dr. Deepika Terrell Potassium [Moles/Vol] 4.7 mmol/L Normal 3.5-5.1 [facility] Comment on above: Performed By: #### C PEPT #### [facility] [address] [place] [address] Dr. Deepika Terrell Protein [Mass/Vol] 7.3 g/dL Normal 6.4-8.2 [facility] Comment on above: Performed By: #### C PEPT #### [facility] [address] [place] [address] Dr. Deepika Terrell Sodium [Moles/Vol] 140 mmol/L Normal 136-145 [facility] Comment on above: Performed By: #### C PEPT #### [facility] [address] [place] [address] Dr. Deepika Terrell Urea nitrogen [Mass/Vol] 37.0 mg/dL Critically high 7.0-18.0 [facility] Comment on above: Performed By: #### C PEPT #### [facility] [address] [place] [address] Dr. Deepika Terrell Urea nitrogen/Creatinin e [Mass ratio] 22.7 mg/mg Normal [facility] Comment on above: Performed By: #### C PEPT #### [facility] [address] [place] [address] Dr. Deepika Terrell T4on 02-05-2022 T4 [Mass/Vol] 8.40 ug/dL Normal 4.50-12.10 [facility] Comment on above: Performed By: #### C PEPT #### [facility] [address] [place] [address] Dr. Deepika Terrell TSHon 02-05-2022 TSH 1.762 uIU/mL Normal 0.358-3.740 [facility] Comment on above: Performed By: #### C PEPT #### [facility] [address] [place] [address] Dr. Deepika Terrell US CAMILLA DOP LEG RTon 12-27-19 US CAMILLA DOP LEG RT EXAMINATION: US CAMILLA DOP LEG RT HISTORY: Localized edema COMPARISON: Ultrasound vein Doppler leg right 04/09/2021 FINDINGS: REGION: Right lower extremity THROMBI: None within deep system. COMPRESSIBILITY: Normal compressibility. FLOW: Normal waveform and antegrade flow between 5 and 20 cm/s. OTHER: Chronic appearing nonocclusive thrombus within mid small saphenous vein (superficial vein). IMPRESSION: 1. No deep vein thrombus within the right lower extremity. Electronically authenticated by: DAVID ESPINAL Date: 2021-12-26 13:02 Normal [facility] PROF CHEM 8 (BAS METB)on Anion gap [Moles/Vol] 15.1 mmol/L Normal [facility] Comment on above: Performed By: #### B MP #### [facility] [address] [address] [address] Deepika Terrell Calcium [Mass/Vol] 9.2 mg/dL Normal 8.5-10.1 [facility] Comment on above: Performed By: #### B MP #### [facility] [address] [address] [address] Deepika Terrell Chloride [Moles/Vol] 102 mmol/L Normal 98-107 [facility] Comment on above: Performed By: #### B MP #### [facility] [address] [address] [address] Deepika Terrell CO2 [Moles/Vol] 25.8 mmol/L Normal 21.0-32.0 [facility] Comment on above: Performed By: #### B MP #### [facility] [address] [address] [address] Deepika Terrell Creatinine [Mass/Vol] 1.70 mg/dL Critically high 0.70-1.30 [facility] Comment on above: Performed By: #### B MP #### [facility] [address] [address] [address] Deepika Terrell EGFR-AF SENEGALESE 47 mL/min/1.73m2 Critically low >=60 [facility] Comment on above: Performed By: #### B MP #### [facility] [address] [address] [address] Deepika Terrell EGFR-NON AF SENEGALESE 38 mL/min/1.73m2 Critically low >=60 [facility] Comment on above: Performed By: #### B MP #### [facility] [address] [address] [address] Deepika Terrell Glucose [Mass/Vol] 75 mg/dL Normal 74-106 [facility] Comment on above: Performed By: #### B MP #### [facility] [address] [address] [address] Deepika Terrell Potassium [Moles/Vol] 4.9 mmol/L Normal 3.5-5.1 [facility] Comment on above: Performed By: #### B MP #### [facility] [address] [address] [address] Deepika Terrell Sodium [Moles/Vol] 138 mmol/L Normal 136-145 [facility] Comment on above: Performed By: #### B MP #### [facility] [address] [address] [address] Deepika Terrell Urea nitrogen [Mass/Vol] 45.0 mg/dL Critically high 7.0-18.0 [facility] Comment on above: Performed By: #### B MP #### [facility] [address] [place] [address] Dr. Deepika Terrell Urea nitrogen/Creatinin e [Mass ratio] 26.5 mg/mg Normal [facility] Comment on above: Performed By: #### B MP #### [facility] [address] [address] [address] Deepika Terrell PROF CHEM 8 (BAS METB)on Anion gap [Moles/Vol] 14.2 mmol/L Normal [facility] Comment on above: Performed By: #### B MP #### [facility] [address] [address] [address] Deepika Terrell Calcium [Mass/Vol] 9.4 mg/dL Normal 8.5-10.1 [facility] Comment on above: Performed By: #### B MP #### [facility] [address] [address] [address] Deepika Terrell Chloride [Moles/Vol] 106 mmol/L Normal 98-107 [facility] Comment on above: Performed By: #### B MP #### [facility] [address] [address] [address] Deepika Terrell CO2 [Moles/Vol] 25.1 mmol/L Normal 21.0-32.0 [facility] Comment on above: Performed By: #### B MP #### [facility] [address] [address] [address] Deepika Terrell Creatinine [Mass/Vol] 1.72 mg/dL Critically high 0.70-1.30 [facility] Comment on above: Performed By: #### B MP #### [facility] [address] [address] [address] Deepika Terrell EGFR-AF SENEGALESE 46 mL/min/1.73m2 Critically low >=60 [facility] Comment on above: Performed By: #### B MP #### [facility] [address] [address] [address] Deepika Terrell EGFR-NON AF SENEGALESE 38 mL/min/1.73m2 Critically low >=60 [facility] Comment on above: Performed By: #### B MP #### [facility] [address] [address] [address] Deepika Terrell Glucose [Mass/Vol] 51 mg/dL Critically low 74-106 [facility] Comment on above: Performed By: #### B MP #### [facility] [address] [address] [address] Deepika Terrell Potassium [Moles/Vol] 6.2 mmol/L Critically high 3.5-5.1 [facility] Comment on above: Performed By: #### B MP #### [facility] [address] [address] [address] Deepika Terrell Sodium [Moles/Vol] 138 mmol/L Normal 136-145 [facility] Comment on above: Performed By: #### B MP #### [facility] [address] [address] [address] Deepika Terrell Urea nitrogen [Mass/Vol] 42.0 mg/dL Critically high 7.0-18.0 [facility] Comment on above: Performed By: #### B MP #### [facility] [address] [address] [address] Deepika Terrell Urea nitrogen/Creatinin e [Mass ratio] 24.4 mg/mg Normal [facility] Comment on above: Performed By: #### B MP #### [facility] [address] [address] [address] Deepika Terrell MRI LSPINE WO CONon 09-15-19 22 MRI LSPINE WO CON EXAMINATION: MRI LSP INE WO CON HISTORY: Low back pain COMPARISON: 09/10/2021 TECHNIQUE: A variety of imaging planes and parameters were utilized for visualization of suspected pathology. FINDINGS: For the purposes of numbering, sagittal T2 image # 10 extends from the T10-T11 vertebral body superiorly to the S2-S3 level inferiorly. PARASPINAL AREA: Normal with no visible mass. BONES: Dextrocurvature of the thoracolumbar spine. 4 mm retrolisthesis of L4 in relation to L3 and L5. 2 mm anterolisthesis of L3 in relation L4. Moderate degenerative spondylosis and facet osteoarthropathy CORD/CAUDA EQUINA: Normal caliber, contour, and signal intensity. DISC LEVELS: 12-L1: No significant disc/facet abnormality, spinal stenosis, or foraminal stenosis. L1-L2: Moderate disc space narrowing and disc desiccation. Broad-based posterior disc protrusion with degenerative spondylosis and facet osteoarthropathy. No central canal or foraminal stenosis L2-L3: Moderate disc space narrowing and disc desiccation. Mild diffuse disc bulge. No central or foraminal stenosis L3-L4: 2 mm anterolisthesis of L3 on L4. Disc desiccation. Moderate diffuse posterior disc protrusion extending up to 4 mm ligamentum flavum hypertrophy. Ligamentum flavum hypertrophy. Moderate central canal stenosis axial image 23. No right foraminal stenosis. Moderate left foraminal stenosis, sagittal image 7 L4-L5: Disc collapse with endplate sclerosis. Moderate diffuse disc/osteophyte complex and facet osteoarthropathy. Right hemilaminotomy. No central canal stenosis. Mild bilateral foraminal stenosis L5-S1: Moderate to severe disc space narrowing with endplate sclerosis. Moderate diffuse disc/osteophyte complex and facet osteoarthropathy. No central canal or left foraminal stenosis. 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 FINDINGS: BONES: Normal alignment of the lumbar vertebral bodies with no acute fracture. 4 mm anterolisthesis of L3 in relation to L2 and L4. Moderate degenerative spondylosis. Moderate to severe facet osteoarthropathy with suspected L5-S1 foraminal stenosis DISC SPACES: Moderate to severe multilevel disc space narrowing with endplate sclerosis PARASPINOUS: Negative. No paraspinous abnormality is seen. OTHER: Extensive atherosclerosis IMPRESSION: Moderate to severe diffuse degenerative changes. Suspected L5-S1 foraminal stenosis Electronically authenticated by: KURT DON Date: 2021-09-10 20:46 Normal [facility] GLYCOHEMOGLOBIN A1Con 2021 ADA RECOMMENDATION SEE BELOW Normal [facility] Comment on above: Result Comment: ADA RECOMMENDED LIMIT 4.0 - 6.0 ADA THERAPEUTIC TARGET < 7.0 ACTION SUGGESTED > 7.0 Performed By: #### C PEPT #### [facility] [address] [place] [address] Dr. Deepika Terrell Glucose [Mass/Vol] 131 mg/dL Normal [facility] Comment on above: Performed By: #### C PEPT #### [facility] [address] [address] [address] Deepika Terrell HbA1c (Bld) [Mass fraction] 6.2 % Normal 4.5-6.2 [facility] Comment on above: Performed By: #### C PEPT #### [facility] [address] [place] [address] Dr. Deepika Terrell Blood Urea Nitrogenon 2020 Urea nitrogen [Mass/Vol] 23 mg/dL Normal 9- [facility] Comment on above: Performed By: #### B UN, CREAT #### [address] abdomen pelvis w conon CT abdomen pelvis w [facility] [place] [address] [place] [address] CT Scan Report Signed Patient: Liliana Natarajan MR#: [id number] 47 : 1935 Acct:[id number] Age/Sex: 85 / M ADM Date: 10/26/20 Loc: Room: Type: [facility] Attending Dr: Srinivasan Beaulieu MD Ordering Provider: Srinivasan Beaulieu MD Date of Service: 10/26/20 CT/CT abdomen pelvis w con: Diarrhea;Weight loss Copies to: Srinivasan Beaulieu MD CT abdomen pelvis w con 10/26/2020 12:45 PM SIGNS AND SYMPTOMS: Diarrhea;Weight loss TECHNIQUE: Multidetector ct axial images of the abdomen and pelvis were obtained with IV contrast. Multiplanar reformats were performed and reviewed to further define anatomy and possible pathology. CT was performed with one or more of the following dose reduction techniques: Automated exposure control, adjustment of the mA and/or kV according to patient size, or use of iterative reconstruction technique. Contrast: 90 mL of intravenous Isovue-300 COMPARISON: None. FINDINGS: Lower Chest: Atherosclerotic changes are noted in the thoracic aorta and coronary arteries. ABDOMEN: Liver: Within normal limits. Bile Ducts: Normal caliber. Gallbladder: There is a stone in the neck of the gallbladder. Pancreas: Within normal limits. Spleen: Within normal limits. Adrenals: Within normal limits. Kidneys: There is a simple cyst in the left renal cortex. Pelvis: Reproductive Organs: No pelvic masses. Ureters: Within normal limits. Bladder: Within normal limits. Bowel: Normal caliber. There is evidence of prior appendectomy. Mesenteric Lymph Nodes: No enlarged mesenteric lymph nodes. Peritoneum: No ascites or free air, no fluid collection. Vessels: Atherosclerotic changes are noted in the abdominal aorta and its branches. Retroperitoneum: Within normal limits. Abdominal Wall: There is a fat-containing left inguinal hernia. Bones: Degenerative changes are noted in the lumbar spine, hips, and sacroiliac joints. CT/CT abdomen pelvis w con IMPRESSION: There is no evidence of bowel obstruction or obstructive uropathy. No acute intra-abdominal pathology. No evidence of free fluid or free air. Impression dictated by: Eugene Cummings M.D.10/26/2020 4:54 PM Dictation Location: [place] [address] Transcribed By: [facility] 10/26/20 9466 Dictated By: Eugene Cummings II, MD 10/26/20 3046 Signed By: 10/26/20 1654 [facility] Creatinineon 10-26-2020 Creatinine [Mass/Vol] 1.44 mg/dL High 0.64-1.[address] [facility] Comment on above: Performed By: #### B UN, CREAT #### [facility] [address] Creatinine Clr Calc Pharmacy 39.48 [facility] Comment on above: Result Comment: PERF ORMED BY: [facility] [address] [place] [address] PATHOLOGIST [employer] ANTHONY WEAVER M.D. Performed By: #### B UN, CREAT #### [facility] [address] [place] [address] Estimated GFR ( Zahida 56 [facility] Comment on above: Result Comment: GFR estimated reference range: According to KDOQI guidelines, <60 ml/min/1.73m2 is sufficient to diagnose a patient with chronic kidney disease. Performed By: #### B UN, CREAT #### [facility] [address] [place] [address] Estimated GFR (Non- Am 47 [facility] Comment on above: Performed By: #### B UN, CREAT #### [facility] [address] [place] [address] Glucose Poct Glucometerson 0 10-26-2020 Glucose [Mass/Vol] 100 mg/dL [facility] Comment on above: Result Comment: [facility] Glucose Reference Range is dependent on time and content of last meal. Glucose of more than 200 mg/dL in a nonstressed, ambulatory subject supports the diagnosis of Diabetes Mellitus. PERFORMED BY: [facility] [address] [place] [address] PATHOLOGIST [employer] ANTHONY WEAVER M.D. Performed By: #### G MATTLS #### Point of Care testing , [facility] 10-26-2020 L ------- Specimen: [id number] Received: 10/26/20 Status: SOLEDAD Rosemary Num: [id number] Spec Type: Surgical Subm Dr: Srinivasan Beaulieu MD Tissues: A Colon Biopsy (LEFT COLON BX) Procedures: HE Stain/2, Gross/Micro L4 Patient Age/Sex Location Account Attending Physician Liliana Natarajan/Raissa [id number] Srinivasan Beaulieu MD SPEC NUM: [id number] RECD: 10/26/20 STATUS: SOLEDAD WITTJames NUM: [id number] AALIYAH: 10/26/20- SUBM DR: Srinivasan Beaulieu MD ENTERED: 10/26/20-[address]: SPEC TYPE: Surgical DEPT: S ENTERED BY: [id number] RECV BY: [id number] ORDERED: HE Stain/2, Gross/Micro L4 ORDERED: HE Stain/2, Gross/Micro L4 Pathological Diagnosis Left colon, biopsy: - Microscopic colitis, most consistent with collagenous colitis Clinical Information Diarrhea Gross Description Received in formalin labeled with the patient's name, number and left colon biopsies rule out microscopic colitis are 2 dey tissue fragments, 0.4 cm and 0.5 cm. Entirely submitted in one cassette labeled A1. (SM/JS) Microscopic Description Two glass slides with H E stained material have been examined. The microscopic findings support the above pathologic diagnosis. [id number] Specimen: [id number] Received: 10/26/20 Status: SOLEDAD Rosemary Num: [id number] Spec Type: Surgical Subm Dr: Srinivasan Beaulieu MD Tissues: A Colon Biopsy (LEFT COLON BX) Procedures: HE Stain/2, Gross/Micro L4 Patient: Liliana Natarajan [id number] (Continued) Signed (signature on file) Anthony Weaver MD 10/27/20 1718 [facility] History and Physicalon 01-15 HIM IP Note OR [employer] [facility] Surgical Pathologyon 017 Surgical Pathology (NOTE)[id number] Y LABORATORIESCONSULTING PATHOLOGISTS CORPORATIONANATOMIC [id number] [place], [place] [id number] Fax: SURGICAL PATHOLOGY CONSULTATIONPatient Name: Amy NATARAJAN Rec: [id number] Number: [id number]: 01/15/2017Received: 01/15/2017Reported: 01/16/2017 08:36-- Diagnosis --INTRAOCULAR LENS: GROSS ONLY.Kan Allred M.D.Electronically Signed Out tb04/16/11Clinical InformationPre-op Diagnosis: DISLOCATED IOL LEFT EYE Operative Findings: IOL GROSS ONLYOperation Performed: VITRECTOMY 25 GAUGE LENSECTOMY, KENALOGINJECTIONSource of Specimen1: IOL - GROSS ONLYGross Description LILIANA NATARAJAN IOL GROSS ONLY 0.6 cm long x < 0.1 cm in diameterclear translucent lens with two tags. Gross only. [facility] Vital Signs Date Time Vital Sign Value Performing Clinician Facility 11-26-2022 09:45-0400 Body height 172.72 cm Chevy Robins Other [employer] Other 11-26-2022 09:45-0400 Body mass index (BMI) [Ratio] 24.63 kg/m2 Chevy Robins Other [employer] Other 11-26-2022 09:45-0400 Body weight 73.48 kg Chevy Julienne Other [employer] Other 11-26-2022 09:45-0400 Diastolic blood pressure 61 mm[Hg] Chevy Carlos Ay Other [employer] Other 11-26-2022 09:45-0400 Systolic blood pressure 135 mm[Hg] Chevy Straussy Other [employer] Other 12-27-2021 14:00-0400 Body height 172.72 cm Chevy Conniewilmaotilia Other [employer] Other 12-27-2021 14:00-0400 Body mass index (BMI) [Ratio] 28.43 kg/m2 Chevy Robins Other [employer] Other 12-27-2021 14:00-0400 Body weight 84.82 kg Chevy Julienne Other [employer] Other 12-27-2021 14:00-0400 Diastolic blood pressure 75 mm[Hg] Chevy Conniewilmay Other [employer] Other 12-27-2021 14:00-0400 Systolic blood pressure 171 mm[Hg] Chevy Robins Other [employer] Other 11-27-2021 09:51-0400 Diastolic blood pressure 71 mm[Hg] [place] REYNOLDS [facility] [place] 11-27-2021 09:51-0400 Mean blood pressure 97 mm[Hg] [place] REYNOLDS [facility] [place] 11-27-2021 09:51-0400 Respiratory rate 49 /min [place] [employer] [facility] [place] 11-27-2021 09:51-0400 Systolic blood pressure 150 mm[Hg] [place]ari[place] COOK [facility] [place] 11-27-2021 09:39-0400 Blood Pressure Location [place] [employer] [facility] [place] 11-27-2021 09:39-0400 Diastolic blood pressure 67 mm[Hg] [place] [employer] [facility] [place] 11-27-2021 09:39-0400 Heart rate 45 /min [place] [employer] [facility] [place] 11-27-2021 09:39-0400 Systolic blood pressure 168 mm[Hg] [place] [employer] [facility] [facility] 12-27-2020 14:00-0400 Body height 172.72 cm Chevy Robins Other [employer] Other 12-27-2020 14:00-0400 Body mass index (BMI) [Ratio] 28.13 kg/m2 Chevy Robins Other [employer] Other 12-27-2020 14:00-0400 Body weight 83.92 kg Chevy Robins Other [employer] Other Encounters Encounter Date Encounter Type Care Provider Facility Start: 11-11-2023 ambulatory Darien REYNOLDS Facility :[facility] Start: 07-07-2023 End: 07-07-2023 ambulatory [facility] Start: 06-16-2023 End: 06-17-2023 ambulatory Darien REYNOLDS Facility:[facility] Start: 06-16-2023 End: 06-16-2023 Patient encounter procedure Darien Caitie REYNOLDS [facility] Start: 12-13-2022 End: 12-13-2022 ambulatory [facility] Start: 11-26-2022 End: 11-26-2022 ambulatory Chevy Robins Other [employer] Other Start: 11-26-2022 Patient encounter procedure Chevy Robins [facility] Start: 08-13-2022 End: 08-13-[address] ERIN BERG . Facility:[facility] Start: 08-12-2022 ambulatory Alli MUKHERJEE Facility : [facility] Start: 08-09-2022 End: 08-10-[address] ERIN BERG . Facility:[facility] Start: 08-08-2022 End: 08-09-[address] ERIN BERG . Facility:[facility] Start: 08-07-2022 End: 08-08-[address] VIANNEY AGOSTO REQUEST Facility:[facility] Start: 07-19-2022 End: 07-20-[address] ERIN BERG . Facility:[facility] Start: 07-17-2022 End: 07-18-[address] ERIN BERG . Facility:[facility] Start: 06-02-2022 End: 06-02-[address] ERIN BERG . Facility:[facility] Start: 05-30-2022 End: 05-30-[address] ERIN BERG . Facility:[facility] Start: 04-05-2022 End: 04-06-2022 ambulatory ARNEL KELLOGG Facility:[facility] Start: 04-01-2022 End: 04-02-2022 ambulatory ARNEL KELLOGG Facility:[facility] Start: 02-05-2022 End: 02-06-[address] ERIN BERG . Facility:[facility] Start: 12-27-2021 End: 12-27-2021 ambulatory Chevy Robins Other [facility] [employer] Other Start: 12-27-2021 Patient encounter procedure Chevy Robins [facility] Start: 12-26-2021 End: 12-27-[address] ERIN BERG . Facility:[facility] Start: 11-27-2021 End: 11-27-2021 Patient encounter procedure Darien REYNOLDS [facility] [place] Start: 10-18-2021 End: 10-26-[address] DOCTOR POON Facility:[facility] Start: 09-21-2021 End: 09-22-2021 ambulatory MELYSSA JOYA Facility:[facility] Start: 09-18-2021 End: 09-19-2021 ambulatory MELYSSA JOYA Facility:[facility] Start: 09-14-2021 End: 09-15-[address] ERIN BERG . Facility:[facility] Start: 09-10-2021 End: 09-11-[address] ERIN BERG . Facility:[facility] Start: 08-21-2021 End: 08-22-[address] FAITH LISTED REQUEST Facility:[facility] Start: 12-27-2020 Patient encounter procedure Chevy Robins [facility] Start: 01-21-2017 End: 01-22-2017 Ambulatory DEFAULT PHYSICIAN Facility:[facility] Start: 01-17-2017 End: 01-18-2017 Ambulatory DEFAULT PHYSICIAN Facility:[facility] Start: 01-15-2017 End: 01-15-2017 Ambulatory [facility] Procedures Date Procedure Procedure Detail Performing Clinician Start: 07-07-2023 Follow-up visit Follow-up ARNEL KELLOGG Start: 02-05-[address] CHRIS BERG . Comment on above: Performed By: #### C PEPT #### [facility] [address] [address] [address] Deepika Terrell Start: 12-04-2020 Transurethral water vapor ablation of prostate Darien REYNOLDS Start: 10-12-2020 Cystoscopy Darien DUARTE Start: 01-15-2017 SURGICAL PATHOLOGY LAWRENCE NESBITT Start: 01-15-2017 POC GLUCOSE FINGERSTICK CHET NESBITT Start: 01-15-2017 DISCHARGE PATIENT DYLAN NESBITT Start: 01-15-2017 SURGICAL PATHOLOGY LAWRENCE NESBITT Start: 01-15-2017 ASSESS CHET Rose Start: 01-15-2017 BEDREST CHET NAJERA N Start: 01-15-2017 Continuous pulse oximetry CHET NESBITT Start: 01-15-2017 INITIATE OXYGEN THER APY PROTOCOL CHET NESBITT Start: 01-15-2017 NEURO/VASCULAR CHECKS Raissa NESBITT Start: 01-15-2017 NOTIFY PHYSICIAN (SPECIFY) CHET NESBITT Start: 01-15-2017 NURSING COMMUNICATION Raissa NESBITT Start: 01-15-2017 REMOVE IV CHET NAJERA N Start: 01-15-2017 VITAL SIGNS CHET NAJERA N Start: 01-15-2017 CREATININE W/GFR POI NT OF CARE CHET NESBITT Start: 01-15-2017 POCT GLUCOSE CHET NAJERA N Start: 01-15-2017 POC CHEM8 INCLUDES C ALC. ANION GAP CHET NESBITT Appendectomy Darien GAIL Cataract (disorder) Darien REYNOLDS Cataract (morphologi c abnormality) Darien REYNOLDS Colonoscopy Darien REYNOLDS Hernia of abdominal cavity (disorder) Darien REYNOLDS Immunizations Immunization Date Immunization Notes Care Provider Deng anguiano 05-02-2023 zoster vaccine recombinant Darien REYNOLDS [facility] 02-24-2023 zoster vaccine recombinant Darien REYNOLDS [facility] 01-27-2023 influenza virus vaccine, unspecified formulation Darien [employer] [facility] 06-02-2022 influenza virus vaccine, unspecified formulation Darien [employer] [facility] 06-02-2022 pneumococcal conjuga te vaccine, 13 valent Darien REYNOLDS [facility] 01-21-2022 influenza virus vaccine, unspecified formulation Darien [employer] [facility] 09-27-2021 SARS-CoV-2 (COVID-19 ) mRNA-1273 vaccine Darien [employer] [facility] 04-24-2021 SARS-CoV-2 (COVID-19 ) mRNA BNT-162b2 vax Darien REYNOLDS [facility] 01-25-2021 influenza virus vaccine, unspecified formulation Darien REYNOLDS [facility] 06-06-2020 SARS-CoV-2 (COVID-19 ) mRNA-1273 vaccine Darien [employer] [facility] 05-09-2020 SARS-CoV-2 (COVID-19 ) mRNA-1273 vaccine Darien [employer] [facility] 04-11-2020 SARS-CoV-2 (COVID-19 ) mRNA-1273 vaccine Darien [employer] [facility] 01-14-2020 influenza virus vaccine, unspecified formulation Darien REYNOLDS [facility] 01-06-2020 influenza virus vaccine, unspecified formulation Darien REYNOLDS [facility] 01-28-2018 influenza virus vaccine, unspecified formulation Darien REYNOLDS [facility] 02-05-2017 pneumococcal conjuga te vaccine, 13 valent Darien REYNOLDS [facility] 01-27-2017 influenza virus vaccine, unspecified formulation Darien REYNOLDS [facility] 01-13-2017 influenza virus vaccine, unspecified formulation Darien REYNOLDS [facility] 01-06-2017 influenza virus vaccine, unspecified formulation Darien REYNOLDS [facility] 01-03-2016 influenza virus vaccine, unspecified formulation Darien REYNOLDS [facility] 01-06-2015 influenza virus vaccine, unspecified formulation Darien REYNOLDS [facility] 02-03-2014 influenza virus vaccine, unspecified formulation Darien REYNOLDS [facility] 01-25-2009 influenza, whole Darien BASSO K [facility] Payers Date Payer Category Payer Unknown [id number] 2017 Medicare [id number] 1959 Medicare [id number] 2.1 [id number] 1959 Self-pay 1959 Unknown [id number] 1935 Unknown [id number] 2.16.84 0.1.994109.3.579.2.593 1935 Unknown [id number] 2.16.84 0.1.821394.3.579.2.593 1935 Unknown [id number] 2.16.84 0.1.841644.3.579.2.593 1935 Unknown [id number] 2.16.84 0.1.677511.3.579.2.593 1935 Unknown [id number] 2.16.84 0.1.645219.3.579.2.593 1935 Unknown [id number] 2.16.84 0.1.029814.3.579.2.593 1935 Unknown [id number] 2.16.84 0.1.691571.3.579.2.593 1935 Unknown [id number] 2.16.84 0.1.284231.3.579.2.593 1935 Unknown [id number] 2.16.84 0.1.252535.3.579.2.593 1935 Unknown [id number] 2.16.84 0.1.076438.3.579.2.593 1935 Unknown [id number] 2.16.84 0.1.102309.3.579.2.593 1935 Unknown [id number] 2.16.84 0.1.677252.3.579.2.593 1935 Unknown [id number] 2.16.84 0.1.504566.3.579.2.593 1935 Unknown [id number] 2.16.84 0.1.896249.3.579.2.593 1935 Unknown [id number] 2.16.84 0.1.655265.3.579.2.593 1935 Unknown [id number] 2.16.84 0.1.898095.3.579.2.593 1935 Unknown [id number] 2.16.8 40.1.355287.3.579.2.727 1935 Unknown [id number] 2.16.8 40.1.521698.3.579.2.727 1935 Unknown [id number] 2.16.8 40.1.950787.3.579.2.727 Unknown Unknown [id number] 2.16.8 40.1.493770.19 Unknown [id number] 2.16.84 0.1.887295.3.579.2.593 Unknown [id number] 2.16.84 0.1.986127.3.579.2.593 Social History Date Type Detail Facility Sex Assigned At [employer] Other Start: 11-27-2021 End: 06-11-2022 Tobacco smoking status Never smoked tobacco (finding) [facility] [employer] Tobacco smoking status Never [facility] [employer] Functional Status Date Assessment Result Facility 11-27-2021 Functional Status N/A [facility] [employer] Clinical Notes 12-27-2020 to 07-07-2023 Note Date & Type Note Facility 07-07-2023 Note Cardiology Follow Up Progress Note Chief Complaint: Follow up HPI: Liliana Natarajan is a 87 y.o. male With a past medical history including hypertension, diabetes, bradycardia. Patient was referred to cardiology for perioperative restratification prior to left shoulder surgery. At the time, patient was noted to be low risk, and was cleared for surgery. Patient presents today for follow-up. Patient adamantly denies any cardiac complaints or concerns. He feels well. No chest pain or shortness of breath. No lower extremity edema, orthopnea, or proximal nocturnal dyspnea. No near-syncope or syncope. No dizziness or lightheadedness. Cardiology ROS: GENERAL: Denies fever, chills, night sweats, weight loss. HEENT: Denies changes in vision, photophobia, changes in hearing, epistaxis, oral bleeding. CARDIOVASCULAR: Endorses lower extremity edema. Denies chest pain, exertional dyspnea, orthopnea/PND, palpitations, lightheadedness/dizziness. RESPIRATORY: Denies SOB, coughing, wheezing GI: Denies abdominal pain, nausea/vomiting, heartburn, melena/hematochezia. RENAL: Denies dysuria, hematuria, flank pain. MSK: Denies muscle weakness/pain, arthralgias/joint pain. NEUROLOGIC: Denies LOC, weakness, numbness, headaches. SKIN: Denies abnormal rashes or bleeding. PSYCH: Denies significant anxiety, depression, sleep disturbances. Medications Current Outpatient Medications on File Prior to Visit Medication Sig Dispense Refill amLODIPine (Norvasc) 10 mg tablet amlodipine 10 mg tablet TAKE 1 TABLET BY MOUTH EVERY DAY budesonide EC (Entocort EC) 3 mg 24 hr capsule TAKE 3 CAPSULES BY MOUTH DAILY for FOUR weeks then TAKE 2 CAPSULES BY MOUTH DAILY for FOUR weeks then TAKE 1 CAPSULE BY MOUTH DAILY for FOUR weeks cholecalciferol (Vitamin D-3) 25 MCG (1000 UT) capsule 1 capsule in the morning. hydrALAZINE (Apresoline) 100 mg tablet Take 100 mg by mouth in the morning and at bedtime. hyoscyamine 0.125 mg SL tablet DISSOLVE 1 TABLET UNDER THE TONGUE FOUR TIMES DAILY NEEDED levothyroxine (Synthroid, Levoxyl) 50 mcg tablet Take 50 mcg by mouth in the morning. liothyronine (Cytomel) 5 mcg tablet Take 10 mcg by mouth in the morning. lisinopril 20 mg tablet Take 1 tablet (20 mg) by mouth in the morning. 90 tablet 3 oxybutynin (Ditropan) 5 mg tablet oxybutynin chloride 5 mg tablet TAKE 1 TABLET BY MOUTH DAILY pantoprazole (ProtoNix) 40 mg EC tablet Take 40 mg by mouth before breakfast. potassium chloride CR (Klor-Con) 10 mEq ER tablet Take 10 mEq by mouth in the morning and at bedtime. sucralfate (Carafate) 1 gram tablet TAKE 1 TABLET BY MOUTH ON AN EMPTY STOMACH BEFORE MEALS and BEFORE bedtime tamsulosin (Flomax) 0.4 mg 24 hr capsule tamsulosin 0.4 mg capsule TAKE 1 CAPSULE BY MOUTH EVERY DAY tiZANidine (Zanaflex) 4 mg tablet tizanidine 4 mg tablet TAKE 1 TABLET BY MOUTH AT BEDTIME [DISCONTINUED] diclofenac (Voltaren) 75 mg EC tablet diclofenac sodium 75 mg tablet,delayed release TAKE 1 TABLET BY MOUTH TWICE DAILY [DISCONTINUED] furosemide (Lasix) 40 mg tablet Take 40 mg by mouth in the morning. [DISCONTINUED] terbinafine (LamISIL) 250 mg tablet No current facility-administered medications on file prior to visit. Allergies Adhesive Physical Exam VITAL SIGNS: BP 145/65 (BP Location: Left arm, Patient Position: Sitting) Pulse 51 Ht 1.727 m (5' 8 ) Wt 73.9 kg (163 lb) SpO2 98% BMI 24.78 kg/m??? Constitutional: Well developed, Well nourished, No acute distress, Non-toxic appearance. HENT: Normocephalic, Atraumatic, Bilateral external ears have normal appearance, Bilateral TMs clear, Oropharynx moist, No oral or pharyngeal exudates, Nose appears normal, nares are patent. Eyes: PERRLA, EOMI, Conjunctiva normal, No discharge. Neck: Normal range of motion, No tenderness, Supple, No stridor. No cervical lymphadenopathy noted. Cardiovascular: Normal heart rate, Normal rhythm, No murmurs, No rubs, No gallops. Thorax & Lungs: Normal breath sounds, No respiratory distress, No wheezing, No chest tenderness to palpation. Abdomen: Bowel sounds normal, Soft, Nontender, No masses, No pulsatile masses. Skin: Warm, Dry, No erythema, No rash. Back: No tenderness, No CVA tenderness. Extremities: 1+ biltateral lower extremity edema. Intact distal pulses, No tenderness, No cyanosis, No clubbing. Musculoskeletal: Good range of motion in all major joints with 5/5 muscle strength in all muscle groups, No tenderness to palpation or major deformities noted. Neurologic: Alert & oriented x 3, Normal motor function in all major muscle groups, Normal sensory function to all major dermatomes, No focal deficits noted. Psychiatric: Affect normal, Judgment normal, Mood normal. 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 [facility] 12-13-2022 Note Patient here for 6 m o follow up hypertension and bradycardia. Says Dr. Berg stopped his furosemide about 1 month ago. Denies increased in LE edema and SOB. Denies chest pain and lightheadedness. Doing well. [facility] 12-13-2022 Note Cardiology Follow Up Progress Note Chief Complaint: Follow up HPI: Liliana Natarajan is a 87 y.o. male With a past medical history including hypertension, diabetes, bradycardia. Patient was referred to cardiology for perioperative restratification prior to left shoulder surgery. At the time, patient was noted to be low risk, and was cleared for surgery. Patient presents today for follow-up. Patient states that he feels wells. Patient adamantly denies any cardiac complaints or concerns. Patient denies any chest pain or shortness of breath. Patient denies any lower extremity edema, orthopnea, or proximal nocturnal dyspnea. No near-syncope or syncope. No dizziness or lightheadedness. He remains active and denies any issues or symptoms with activity. Cardiology ROS: GENERAL: Denies fever, chills, night sweats, weight loss. HEENT: Denies changes in vision, photophobia, changes in hearing, epistaxis, oral bleeding. CARDIOVASCULAR: Endorses lower extremity edema. Denies chest pain, exertional dyspnea, orthopnea/PND, palpitations, lightheadedness/dizziness. RESPIRATORY: Denies SOB, coughing, wheezing GI: Denies abdominal pain, nausea/vomiting, heartburn, melena/hematochezia. RENAL: Denies dysuria, hematuria, flank pain. MSK: Denies muscle weakness/pain, arthralgias/joint pain. NEUROLOGIC: Denies LOC, weakness, numbness, headaches. SKIN: Denies abnormal rashes or bleeding. PSYCH: Denies significant anxiety, depression, sleep disturbances. Medications Current Outpatient Medications on File Prior to Visit Medication Sig Dispense Refill amLODIPine (Norvasc) 10 mg tablet amlodipine 10 mg tablet TAKE 1 TABLET BY MOUTH EVERY DAY budesonide EC (Entocort EC) 3 mg 24 hr capsule TAKE 3 CAPSULES BY MOUTH DAILY for FOUR weeks then TAKE 2 CAPSULES BY MOUTH DAILY for FOUR weeks then TAKE 1 CAPSULE BY MOUTH DAILY for FOUR weeks cholecalciferol (Vitamin D-3) 25 MCG (1000 UT) capsule 1 capsule in the morning. hydrALAZINE (Apresoline) 100 mg tablet Take 100 mg by mouth in the morning and at bedtime. hyoscyamine 0.125 mg SL tablet DISSOLVE 1 TABLET UNDER THE TONGUE FOUR TIMES DAILY NEEDED levothyroxine (Synthroid, Levoxyl) 50 mcg tablet Take 50 mcg by mouth in the morning. liothyronine (Cytomel) 5 mcg tablet Take 10 mcg by mouth in the morning. lisinopril 20 mg tablet Take 1 tablet (20 mg) by mouth in the morning. 90 tablet 3 oxybutynin (Ditropan) 5 mg tablet oxybutynin chloride 5 mg tablet TAKE 1 TABLET BY MOUTH DAILY pantoprazole (ProtoNix) 40 mg EC tablet Take 40 mg by mouth before breakfast. potassium chloride CR (Klor-Con) 10 mEq ER tablet Take 10 mEq by mouth in the morning and at bedtime. sucralfate (Carafate) 1 gram tablet TAKE 1 TABLET BY MOUTH ON AN EMPTY STOMACH BEFORE MEALS and BEFORE bedtime tamsulosin (Flomax) 0.4 mg 24 hr capsule tamsulosin 0.4 mg capsule TAKE 1 CAPSULE BY MOUTH EVERY DAY tiZANidine (Zanaflex) 4 mg tablet tizanidine 4 mg tablet TAKE 1 TABLET BY MOUTH AT BEDTIME [DISCONTINUED] diclofenac (Voltaren) 75 mg EC tablet diclofenac sodium 75 mg tablet,delayed release TAKE 1 TABLET BY MOUTH TWICE DAILY [DISCONTINUED] furosemide (Lasix) 40 mg tablet Take 40 mg by mouth in the morning. [DISCONTINUED] terbinafine (LamISIL) 250 mg tablet No current facility-administered medications on file prior to visit. Allergies Adhesive Physical Exam VITAL SIGNS: BP 145/65 (BP Location: Left arm, Patient Position: Sitting) Pulse 51 Ht 1.727 m (5' 8 ) Wt 73.9 kg (163 lb) SpO2 98% BMI 24.78 kg/m??? Constitutional: Well developed, Well nourished, No acute distress, Non-toxic appearance. HENT: Normocephalic, Atraumatic, Bilateral external ears have normal appearance, Bilateral TMs clear, Oropharynx moist, No oral or pharyngeal exudates, Nose appears normal, nares are patent. Eyes: PERRLA, EOMI, Conjunctiva normal, No discharge. Neck: Normal range of motion, No tenderness, Supple, No stridor. No cervical lymphadenopathy noted. Cardiovascular: Normal heart rate, Normal rhythm, No murmurs, No rubs, No gallops. Thorax & Lungs: Normal breath sounds, No respiratory distress, No wheezing, No chest tenderness to palpation. Abdomen: Bowel sounds normal, Soft, Nontender, No masses, No pulsatile masses. Skin: Warm, Dry, No erythema, No rash. Back: No tenderness, No CVA tenderness. Extremities: 1+ biltateral lower extremity edema. Intact distal pulses, No tenderness, No cyanosis, No clubbing. Musculoskeletal: Good range of motion in all major joints with 5/5 muscle strength in all muscle groups, No tenderness to palpation or major deformities noted. Neurologic: Alert & oriented x 3, Normal motor function in all major muscle groups, Normal sensory function to all major dermatomes, No focal deficits noted. Psychiatric: Affect normal, Judgment normal, Mood normal. Impression: -Hypertension: well controlled at home per patient report -Sinus Bradycardia (more content not included)... [facility] 11-26-2022 Evaluation note Encounter Date Diagnosis Assessment Notes Nov, Microscopic colitis (ICD-10 - K52.89) Patient to use OTC probiotic and OTC Fiber supplement to help normalize the stools. Patient to finish remaining 2 weeks of medication and call if diarrhea returns after stopping the medication. RTO in 1 year. [employer] Other 09-22-2022 Evaluation note* Encounter Date Diagnosis Assessment Notes Treatment Notes Treatment Clinical Notes Dec, Microscopic colitis (ICD-10 - K52.89) REASSURANCE PT ADVISED TO ADD FIBER SUPPLEMENT TO DIET F/U PRN [employer] Other 08-23-2022 Hospital Discharge instructions Patient Education 11/27/2021 10:25:13 Benign Prostatic Hyperplasia Benign Prostatic Hyperplasia Benign prostatic hyperplasia (BPH) is an enlarged prostate gland that is caused by the normal agingprocess and not by cancer. The prostate is a walnut-sized gland that is involved in the production of semen. It is located in front of the rectum and below the bladder. The bladder stores urine and the urethra is the tube that carries the urine out of the body. The prostate may get bigger as a man gets older. An enlarged prostate can press on the urethra. This can make it harder to pass urine. The build-up of urine in the bladder can cause infection. Back pressure and infection may progress to bladder damage and kidney (renal) failure. What are the causes? This condition is part of a normal aging process. However, not all men develop problems from this condition. If the prostate enlarges away from the urethra, urine flow will not be blocked. If it enlarges toward the urethra and compresses it, there will be problems passing urine. What increases the risk? This condition is more likely to develop in men over the age of 50 years. What are the signs or symptoms? Symptoms of this condition include: Getting up often during the night to urinate. Needing to urinate frequently during the day. Difficulty starting urine flow. Decrease in size and strength of your urine stream. Leaking (dribbling) after urinating. Inability to pass urine. This needs immediate treatment. Inability to completely empty your bladder. Pain when you pass urine. This is more common if there is also an infection. Urinary tract infection (UTI). How is this diagnosed? This condition is diagnosed based on your medical history, a physical exam, and your symptoms. Tests will also be done, such as: A post-void bladder scan. This measures any amount of urine that may remain in your bladder after you finish urinating. A digital rectal exam. In a rectal exam, your health care provider checks your prostate by putting a lubricated, gloved finger into your rectum to feel the back of your prostate gland. This exam detects the size of your gland and any abnormal lumps or growths. An exam of your urine (urinalysis). A prostate specific antigen (PSA) screening. This is a blood test used to screen for prostate cancer. An ultrasound. This test uses sound waves to electronically produce a picture of your prostate gland. Your health care provider may refer you to a specialist in kidney and prostate diseases (urologist). How is this treated? Once symptoms begin, your health care provider will monitor your condition (active surveillance or watchful waiting). Treatment for this condition will depend on the severity of your condition. Treatment may include: Observation and yearly exams. This may be the only treatment needed if your condition and symptoms are mild. Medicines to relieve your symptoms, including: ?Medicines to shrink the prostate. ?Medicines to relax the muscle of the prostate. Surgery in severe cases. Surgery may include: ?Prostatectomy. In this procedure, the prostate tissue is removed completely through an open incision or with a laparoscope or robotics. ?Transurethral resection of the prostate (TURP). In this procedure, a tool is inserted through the opening at the tip of the penis (urethra). It is used to cut away tissue of the inner core of the prostate. The pieces are removed through the same opening of the penis. This removes the blockage. ?Transurethral incision (TUIP). In this procedure, small cuts are made in the prostate. This lessens the prostate's pressure on the urethra. ?Transurethral microwave thermotherapy (TUMT). This procedure uses microwaves to create heat. The heat destroys and removes a small amount of prostate tissue. ?Transurethral needle ablation (TUNA). This procedure uses radio frequencies to destroy and remove a small amount of prostate tissue. ?Interstitial laser coagulation (ILC). This procedure uses a laser to destroy and remove a small amount of prostate tissue. ?Transurethral electrovaporization (TUVP). This procedure uses electrodes to destroy and remove a small amount of prostate tissue. ?Prostatic urethral lift. This procedure inserts an implant to push the lobes of the prostate away from the urethra. Follow these instructions at home: Take [id number] and prescription medicines only as told by your health care provider. Monitor your symptoms for any changes. Contact your health care provider with any changes. Avoid drinking large amounts of liquid before going to bed or out in public. Avoid or reduce how much caffeine or alcohol you drink. Give yourself time when you urinate. Keep all follow-up visits as told by your health care provider. This is important. Contact a health care provider if: You have unexplained back pain. Your symptoms do not get better with treatment. You develop side effects from the medicine you are taking. Your urine becomes very dark or has a bad smell. Your lower abdomen becomes distended and you have trouble passing your urine. Get help right away if: You have a fever or chills. You suddenly cannot urinate. You feel lightheaded, or very dizzy, or you faint. There are large amounts of blood or clots in the urine. Your urinary problems become hard to manage. You develop moderate to severe low back or flank pain. The flank is the side of your body between the ribs and the hip. These symptoms may represent a serious problem that is an emergency. Do not wait to see if the symptoms will go away. Get medical help right away. Call your local emergency services (911 in the [place] Do not drive yourself to the hospital. Summary Benign prostatic hyperplasia (BPH) is an enlarged prostate that is caused by the normal aging process and not by cancer. An enlarged prostate can press on the urethra. This can make it hard to pass urine. This condition is part of a normal aging process and is more likely to develop in men over the age of 50 years. Get help right away if you suddenly cannot urinate. This information is not intended to replace advice given to you by your health care provider. Make sure you discuss any questions you have with your health care provider. Document Released: 03/24/2006 Document Revised: 02/16/2019 Document Reviewed: 04/28/2017 [employer] Patient [employer]. Follow Up Care 05/30/2021 14:56:10 With:Darien REYNOLDS MD, URL Address: [facility] [place] [facility] [address] [facility] [address] [place], [place] [id number]- When:6 months [facility] 09-22-2021 Evaluation note* Encounter Date Diagnosis Assessment Notes Treatment Notes Treatment Clinical Notes Dec, Microscopic colitis (ICD-10 - K52.89) Colitis home care material was printed will taper the budesonide at this time patient to finish the 9 mg taper then move to the 6 mg taper. YouTube Other Evaluation + Plan note Future Appointments Appointment Date:06/11/2022 09:30:00 AM Scheduled Provider:Darien REYNOLDS MD Location:[facility] Appointment Type:URO Office Visit [facility] History general Narrative - Reported* Type Description Date Surgical History vasectomy 1979 Surgical History umbilical hernia repair 1982 Surgical History back surgery-lower 1985 Surgical History appendectomy 1991 Surgical History cataract removal L 1999 Surgical History rotator cuff L 2007 Surgical History elbow surgery R 2007 Surgical History carpal tunnel release R 2008 Surgical History cataract removal R 2013 Surgical History eye surgery L Surgical History torn macula L 1998 Hospitalization History SEE ABOVE SURGICAL HX YouTube Other History general Narrative - Reported* Type Description Date Surgical History vasectomy 1979 Surgical History umbilical hernia repair 1982 Surgical History back surgery-lower 1985 Surgical History appendectomy 1992 Surgical History cataract removal L 1999 Surgical History rotator cuff L 2007 Surgical History elbow surgery R 2007 Surgical History carpal tunnel release R 2007 Surgical History cataract removal R 2013 Surgical History eye surgery L Surgical History torn macula L 1998 Hospitalization History SEE ABOVE SURGICAL HX Hospitalization History A1c down- [facility] 05/2022 YouTube Other Hospital course Narrative No data available for this section [facility] Discharge instructions No data available for this section [facility] [employer] Progress note No data available for this section [facility] [employer] Summary Purpose Family History No Family History Records FoundNo Family History Records FoundNo Family History Records FoundNo Family History Records Found No data available for this section No Family History Records FoundNo Family History Records Found Advance Directives No Advanced Directives Records FoundNo Advanced Directives Records FoundNo Advanced Directives Records FoundNo Advanced Directives Records FoundNo Advanced Directives Records FoundNo Advanced Directives Records Found Additional Source Comments (unrecognized sect ion and content) No Status Records FoundNo Status Records FoundNo Status Records FoundNo Status Records FoundNo Status Records FoundNo Status Records Found INFORMATION SOURCE (unrecogn ized section and content) DATE CREATED AUTHOR 09/30/2017 [facility] DATE CREATED AUTHOR AUTHOR'S ORGANIZ ATION 09/30/[address] [facility] DATE CREATED AUTHOR AUTHOR'S ORGANIZ ATION 10/30/2020 [place] DATE CREATED AUTHOR AUTHOR'S ORGANIZ ATION 08/19/2022 [facility] DATE CREATED AUTHOR AUTHOR'S ORGANIZ ATION 08/10/2023 [facility] DATE CREATED AUTHOR AUTHOR'S ORGANJANIYA ATION 09/10/2023 [facility] REASON FOR VISIT (unrecogniz ed section and content) PT HERE FOR ONE MONTH FOLLOW UP MICROSCOPIC COLITIS. PT WAS STARTED ON BUDESONIDE 9MG DAILY. (PREVIOUS DR BEAULIEU PATIENT), PATIENT STATES HE IS FEELING WELL AND WILL NEED A REFILL ON BUDESONIDE IF HE IS TO CONTINUE ON MEDICATION.PATIENT HERE FOR 1 YR FOLLOW UP FOR MICROSCOPIC COLITIS3-4 WEEK FOLLOW UPOF MICROSCOPIC COLITIS FLARE UP. THE PATIENT WAS STARTED ON A BUDESONIDE TAPER AT THE LAST VISIT. Care Team (unrecognized sect ion and content) Personnel Name: Erin Berg MD Address: [address] [place] [address] Personnel Name: Erin Berg MD Address: Address: [address] [place] [address] FOR RECORDS PERTAINING TO PATIENTS WHO ARE OR HAVE BEEN ENROLLED IN A CHEMICAL DEPENDENCY/SUBSTANCEABUSE PROGRAM, SOME INFORMATION MAY BE OMITTED. This clinical summary was aggregated from multiple sources. Caution should be exercised in using it in the provision of clinical care. This summary normalizes information from multiple sources, and as a consequence, information in this document may materially change the coding, format and clinical context of patient data. In addition, data may be omitted in some cases. CLINICAL DECISIONS SHOULD BE BASED ON THE PRIMARY CLINICAL RECORDS. [employer] provides no warranty or guarantee of the accuracy or completeness of information in this document.
== END 2023-11-01 08:31 | disposition home or self-care (01) ==
PROVIDERS: PCP Family Medicine; Visit Provider Family Medicine
DX: I65.23 Occlusion and stenosis of bilateral carotid arteries (principal)
CPT/HCPCS: 93880

== ENCOUNTER 2023-11-06 07:27 | Outpatient (OUT) | payer MEDICARE, OTHER, SELFPAY ==
--- OUTSIDE RECORDS SUMMARY | 2023-11-06 07:30 | XMS_ITS | CCD ---
Author Organization [facility]iniSyoh Care Team Providers Care Vacuum Drier Tender Name Role Phone CHET NESBITT Unavailable Unavailable CHET NESBITT Unavailable Unavailable ERIN BERG Unavailable Unavailable PHYSICIAN, DEFAULT Unavailable Unavailable PHYSICIAN, DEFAULT Unavailable Unavailable PHYSICIAN, DEFAULT Unavailable Unavailable PHYSICIAN, DEFAULT Unavailable Unavailable Chevy Robins Unavailable Erin Berg Primary Care Physician [phone] [address] DR KHAN Consulting Unavailable HOY [...] Medication Allergies] Propensity to adverse reactions (disorder) [facility] Repository (1 source) Adhesive agent; Translations: [ADHESIVE] Propensity to adverse reactions to drug (disorder) 7 [facility] Repository Medications Current Medications Medication Drug Class(es) [...] Daily, # 30 tab(s), Refills(s) 11, Pharmacy: [id number], 172, cm, 06/11/22 9:50:00 EST, Height/Length [...] Start: 11-27-2021 take 1 capsule by mo [facility] twice daily tamsulosin 0.4 mg Cap 0.4 mg = 1 cap(s), Oral, BID Start Date: 11/27/21 Status: Ordered tiZANidine 4 mg oral tablet (4 sources) Central alpha-2 Adrenergic Agonist Start: 11-27-2021 take 1 tablet by mouth every eight hours tiZANidine 4 mg Tab 4 mg = 1 tab(s), Oral, q8hr Start Date: 11/27/21 Status: Ordered take 1 tablet by [facility] every twenty-four hours tiZANidine HCl 4 MG 1 tablet as needed Orally daily Active vitamin a 37088 unt oral capsule (2 sources) Vitamin A [...] 3 Chronic Other aftercare (1 source) Other oysterman (current) drug therapy; Translations: [OTH 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 CURRENT DRUG THERAPY] Onset: 3 Episodic Other [...] Range Facility Office Visiton 07-07-2023 Follow-up visit [id number] Caprice Natarajan E 1935 M Date Provider Department Center 07/07/2023 [id number] ACOSTA Family History Problem Relation Age of Onset Diabetes Father Hypertension Father Family Status - Relation Status Age at Father Level of Service:10292 MT OFFICE/OUTPATIENT ESTABLISHED LOW MDM 20 MIN Reason for Visit and Comments: Follow-up [552278] - 6 month follow up Normal [facility] Office Visiton 12-13-2022 Follow-up visit [id number] Caprice Natarajan E 1935 M Date Provider Department Center 12/13/2022 [id number] ACOSTA Family History Problem Relation Age of Onset Diabetes Father Hypertension Father Family Status - Relation Status Age at Father Level of Service:55122 MT OFFICE/OUTPATIENT ESTABLISHED LOW MDM 20-29 MIN Normal [facility] STOOL CULTUREon 08-18-2022 Campylobacter Culture Final report Normal [facility] Comment on above: Performed By: #### C XSTOOL #### [facility] [address] [place] [address] Dr. Deepika Terrell E coli Shiga Toxin EIA Negative Normal Negative [facility] Comment on above: Performed By: #### C XSTOOL #### [facility] [address] [address] [address] Deepika Terrell Result [address] [facility] Comment on above: Result Comment: No S almonella or Shigella recovered. Performed By: #### C XSTOOL #### [facility] [address] [address] [address] Deepika Terrell Result Comment: No C ampylobacter species isolated. Salmonella/Shigell a Screen Final report Normal [facility] Comment on above: Performed By: #### C XSTOOL #### [facility] [address] [address] [address] Deepika Garcia DIFF PCRon 08-13-2022 C. DIFFICILE PCR Negative Normal NEGATIVE [facility] Comment on above: Performed By: #### B MP #### [facility] [address] [place], [place] [address] Dr. Deepika Terrell Consultation Noteon 08-14-19 23 Consultation Note [id number]:127 Normal [facility] OCC BLD IMMUNO SCREENon OCCULT BLOOD Negative Normal NEGATIVE [facility] Comment on above: Performed By: #### B MP #### [facility] [address] [address] [address] Deepika Terrell RAD - MISCon 08-13-2022 RAD - MISC [id number]:127 Normal [facility] Physician Referralon 023 Physician Referral [id number]:127 Normal [facility] NM HEPATOBILIARY SCAN W EFon 08-09-2022 NM HEPATOBILIARY SCAN W EF EXAMINATION: NM HEPATOBILIARY SCAN W EF HISTORY: Abdominal colic COMPARISON: Ultrasound right upper quadrant 08/08/2022 TECHNIQUE: Radionuclide hepatobiliary imaging was performed after intravenous injection of 5.0 mCi Tc-99m HELLEN derivative with sequential acquisitions every 1 minute [...] DAVID ESPINAL Date: 2022-08-09 10:[address] [facility] US SINGLE QUAD RT UPPERon US SINGLE [...] KURT JOE Date: 2022-08-08 07:[address] [facility] GLYCOHEMOGLOBIN A1Con 2022 ADA RECOMMENDATION SEE BELOW Normal The [facility] Comment on above: Result Comment: ADA RECOMMENDED LIMIT 4.0 - 6.0 ADA THERAPEUTIC TARGET < 7.0 ACTION SUGGESTED > 7.0 Performed By: #### I NSULT #### [facility] [address] [place] [address] Dr. Deepika Terrell Glucose [Mass/Vol] 117 mg/dL Normal [facility] Comment on above: Performed By: #### I NSULT #### [facility] [address] [place] [address] Dr. Deepika Terrell HbA1c (Bld) [Mass fraction] 5.7 % Normal 4.5-6.[address] [facility] Comment on above: Performed By: #### I NSULT #### [facility] [address] [place] [address] ABD/PELVIS WO CONon [...] MARK LEE Date: 2022-07-20 07:[address] [facility] CBC AUTO DIFFon 07-19-2022 BASO # 0.0 103/ul Normal 0.0-0.1 [facility] Comment on above: Performed By: #### C BC #### [facility] [address] [address] [address] Deepika Terrell Basophils/100 WBC (Bld) 0.3 % Normal 0.2-2.0 [facility] Comment on above: Performed By: #### C BC #### [facility] [address] [address] [address] Deepika Terrell EO # 0.3 103/ul Normal 0.0-0.[address] [facility] Comment on above: Performed By: #### C BC #### [facility] [address] [address] [address] Deepika Terrell Eosinophils/100 WBC (Bld) 2.4 % Normal 0.9-7.[address] [facility] Comment on above: Performed By: #### C BC #### [facility] [address] [address] [address] Deepika Terrell Erythrocyte distribution width (RBC) [Ratio] 14.8 % Normal 11.0-15.0 [facility] Comment on above: Performed By: #### C BC #### [facility] [address] [address] [address] Deepika Terrell Hematocrit (Bld) [Volume fraction] 33.8 % Critically low 42.0-54.0 [facility] Comment on above: Performed By: #### C BC #### [facility] [address] [address] [address] Deepika Terrell Hemoglobin (Bld) [Mass/Vol] 11.0 g/dL Critically low 14.0-18.0 [facility] Comment on above: Performed By: #### C BC #### [facility] [address] [place] [address] Dr. Deepika Terrell IG # 0.08 10e3/ul Critically high 0.00-0.03 [facility] Comment on above: Performed By: #### C BC #### [facility] [address] [place] [address] Dr. Deepika Terrell IG % 0.7 % Critically high 0.0-0.5 [facility] Comment on above: Performed By: #### C BC #### [facility] [address] [address] [address] Deepika Terrell LYMPH # 3.5 103/ul Normal 1.2-3.8 [facility] Comment on above: Performed By: #### C BC #### [facility] [address] [place] [address] Dr. Deepika Terrell Lymphocytes/100 WBC (Bld) 29.2 % Normal 20.5-60.0 [facility] Comment on above: Performed By: #### C BC #### [facility] [address] [place] [address] Dr. Deepika Terrell MANUAL DIFF REQ NO Normal [facility] Comment on above: Performed By: #### C BC #### [facility] [address] [place] [address] Dr. Deepika Terrell MCH (RBC) [Entitic mass] 29.4 pg Normal 25.9-34.0 [facility] Comment on above: Performed By: #### C BC #### [facility] [address] [address] [address] Deepika Terrell MCHC (RBC) [Mass/Vol] 32.5 g/dL Normal 29.9-35.[address] [facility] Comment on above: Performed By: #### C BC #### [facility] [address] [address] [address] Deepika Terrell MCV (RBC) [Entitic vol] 90.4 fL Normal 80.0-94.0 [facility] Comment on above: Performed By: #### C BC #### [facility] [address] [address] [address] Deepika Terrell MONO # 0.7 103/ul Normal 0.3-0.8 [facility] Comment on above: Performed By: #### C BC #### [facility] [address] [place] [address] Dr. Deepika Terrell Monocytes/100 WBC (Bld) 6.1 % Normal 1.7-12.0 [facility] Comment on above: Performed By: #### C BC #### [facility] [address] [address] [address] Deepika Terrell NEUT # 7.3 103/ul Critically high 1.4-6.5 [facility] Comment on above: Performed By: #### C BC #### [facility] [address] [address] [address] Deepika Terrell Neutrophils/100 WBC (Bld) 61.3 % Normal 43.0-75.[address] [facility] Comment on above: Performed By: #### C BC #### [facility] [address] [address] [address] Deepika Terrell Platelet mean volume (Bld) [Entitic vol] 10.8 fL Normal 9.5-13.[address] [facility] Comment on above: Performed By: #### C BC #### [facility] [address] [address] [address] Deepika Terrell PLT 372 103/ul Normal 150-[address] [facility] Comment on above: Performed By: #### C BC #### [facility] [address] [address] [address] Deepika Terrell RBC 3.74 106/ul Critically low 4.70-6.10 [facility] [place] [facility] Comment on above: Performed By: #### C BC #### [facility] [address] [address] [address] Deepika Terrell WBC 11.9 103/ul Critically high 4.0-11.0 [facility] Comment on above: Performed By: #### C BC #### [facility] [address] [place] [address] Dr. Deepika Terrell PROF CHEM 8 (BAS METB)on Anion gap [Moles/Vol] 16.1 mmol/L Normal [facility] Comment on above: Performed By: #### I NSULT #### [facility] [address] [place] [address] Dr. Deepika Terrell Calcium [Mass/Vol] 9.0 mg/dL Normal 8.5-10.1 [facility] Comment on above: Performed By: #### I NSULT #### [facility] [address] [place] [address] Dr. Deepika Terrell Chloride [Moles/Vol] 108 mmol/L Critically high 98-107 [facility] Comment on above: Performed By: #### I NSULT #### [facility] [address] [place] [address] Dr. Deepika Terrell CO2 [Moles/Vol] 19.3 mmol/L Critically low 21.0-32.0 [facility] Comment on above: Performed By: #### I NSULT #### [facility] [address] [place] [address] Dr. Deepika Terrell Creatinine [Mass/Vol] 2.68 mg/dL Critically high 0.70-1.30 [facility] Comment on above: Performed By: #### I NSULT #### [facility] [address] [place] [address] Dr. Deepika Terrell EGFR-AF RUSSIAN 27 mL/min/1.73m2 Critically low >=[address] [facility] Comment on above: Performed By: #### I NSULT #### [facility] [address] [address] [address] Deepika Terrell EGFR-NON AF RUSSIAN 23 mL/min/1.73m2 Critically low >=60 [facility] Comment on above: Performed By: #### I NSULT #### [facility] [address] [address] [address] Deepika Terrell Glucose [Mass/Vol] 138 mg/dL Critically high 74-106 [facility] Comment on above: Performed By: #### I NSULT #### [facility] [address] [address] [address] Deepika Terrell Potassium [Moles/Vol] 4.4 mmol/L Normal 3.5-5.1 [facility] Comment on above: Performed By: #### I NSULT #### [facility] [address] [place] [address] Dr. Deepika Terrell Sodium [Moles/Vol] 139 mmol/L Normal 136-145 [facility] Comment on above: Performed By: #### I NSULT #### [facility] [address] [address] [address] Deepika Terrell Urea nitrogen [Mass/Vol] 68.0 mg/dL Critically high 7.0-18.0 [facility] Comment on above: Performed By: #### I NSULT #### [facility] [address] [place] [address] Dr. Deepika Terrell Urea nitrogen/Creatinin e [Mass ratio] 25.4 mg/mg Normal [facility] Comment on above: Performed By: #### I NSULT #### [facility] [address] [address] [address] Deepika Terrell CA 19-9on 07-18-2022 CA 19-9 9 U/mL Normal 0-35 [facility] Comment on above: Result Comment: [facility] Electrochemiluminescence Immunoassay (ECLIA) . Values obtained with different assay methods or kits cannot be used interchangeably. Results cannot be interpreted as absolute evidence of the presence or absence of malignant disease. Performed By: #### B MP #### [facility] [address] [place] [address] Dr. Deepika Terrell CEAon 07-18-2022 CEA 3.1 ng/mL Normal 0.0-4.[address] [facility] Comment on above: Result Comment: Nons mokers <3.9 Smokers <5.6 . [facility] Electrochemiluminescence Immunoassay (ECLIA) . Values obtained with different assay methods or kits cannot be used interchangeably. Results cannot be interpreted as absolute evidence of the presence or absence of malignant disease. Performed By: #### I NSULT #### [facility] [address] [place] [address] Dr. Deepika Terrell HELICOBACTER PYLORI AB IGMon 07-18-2022 H pylori, IgM Abs <9.0 Normal 0.0-8.9 [facility] Comment on above: Result Comment: Nega tive <9.0 Equivocal 9.0 - 11.0 Positive >11.0 . This test was developed and its performance characteristics determined by [employer]. It has not been cleared or approved by the Food and Drug Administration. Performed By: #### C PEPT #### [facility] [address] [place] [address] Dr. Deepika Terrell AMYLASEon 07-17-2022 Amylase [Catalytic activity/Vol] 38 U/L Normal 25-[address] [facility] Comment on above: Performed By: #### C BC #### [facility] [address] [place] [address] Dr. Deepika Terrell CBC W MANUAL DIFFon 07-18-19 23 ATYPICAL LYMPH # Normal [facility] Comment on above: Performed By: #### E RUR #### [facility] [address] [place] [address] Dr. Deepika Terrell ATYPICAL LYMPH % Normal [facility] Comment on above: Performed By: #### E RUR #### [facility] [address] [place] [address] Dr. Deepika Terrell BAND # Normal 0.0-0.[address] [facility] Comment on above: Performed By: #### E RUR #### [facility] [address] [place] [address] Dr. Deepika Terrell BAND % Normal 0-[address] [facility] Comment on above: Performed By: #### E RUR #### [facility] [address] [address] [address] Deepika Terrell BASOM # 0.00 103/ul Normal 0.00-0.10 [facility] Comment on above: Performed By: #### E RUR #### [facility] [address] [place] [address] Dr. Deepika Terrell BASOM % 0.0 % Critically low 0.2-2.0 [facility] Comment on above: Performed By: #### E RUR #### [facility] [address] [place] [address] Dr. Deepika Terrell BLAST # Normal [facility] Comment on above: Performed By: #### E RUR #### [facility] [address] [place] [address] Dr. Deepika Terrell BLAST % Normal [facility] Comment on above: Performed By: #### E RUR #### [facility] [address] [place] [address] Dr. Deepika Terrell CORRECTED WBC Normal 4.0-11.0 [facility] Comment on above: Performed By: #### E RUR #### [facility] [address] [place] [address] Dr. Deepika Terrell EOS # 0.00 103/ul Normal 0.00-0.70 [facility] Comment on above: Performed By: #### E RUR #### [facility] [address] [place] [address] Dr. Deepika Terrell EOS% 0.0 % Critically low 0.9-7.0 [facility] Comment on above: Performed By: #### E RUR #### [facility] [address] [place] [address] Dr. Deepika Terrell HCT 35.9 % Critically low 42.0-54.0 [facility] Comment on above: Performed By: #### E RUR #### [facility] [address] [place] [address] Dr. Deepika Terrell HGB 11.6 g/dl Critically low 14.0-18.0 [facility] Comment on above: Performed By: #### E RUR #### [facility] [address] [place] [address] Dr. Deepika Terrell LYMPHM # 3.48 103/ul Normal 1.20-3.80 [facility] Comment on above: Performed By: #### E RUR #### [facility] [address] [place] [address] Dr. Deepika Terrell LYMPHM% 17.0 % Critically low 20.5-60.0 [facility] Comment on above: Performed By: #### E RUR #### [facility] [address] [place] [address] Dr. Deepika Terrell MCH 29.5 pg Normal 25.9-34.0 [facility] Comment on above: Performed By: #### E RUR #### [facility] [address] [place] [address] Dr. Deepika Terrell MCHC 32.3 g/dl Normal 29.9-35.2 [facility] Comment on above: Performed By: #### E RUR #### [facility] [address] [place] [address] Dr. Deepika Terrell MCV 91.3 fL Normal 80.0-94.0 [facility] Comment on above: Performed By: #### E RUR #### [facility] [address] [place] [address] Dr. Deepika Terrell METAMYELOCYTE # Normal [facility] Comment on above: Performed By: #### E RUR #### [facility] [address] [place] [address] Dr. Deepika Terrell METAMYELOCYTE % Normal [facility] Comment on above: Performed By: #### E RUR #### [facility] [address] [place] [address] Dr. Deepika Terrell MONOM# 1.23 103/ul Critically high 0.30-0.80 [facility] Comment on above: Performed By: #### E RUR #### [facility] [address] [place] [address] Dr. Deepika Terrell MONOM% 6.0 % Normal 1.7-12.0 [facility] Comment on above: Performed By: #### E RUR #### [facility] [address] [place] [address] Dr. Deepika Terrell MPV 10.8 fL Normal 9.5-13.5 [facility] Comment on above: Performed By: #### E RUR #### [facility] [address] [place] [address] Dr. Deepika Terrell MYELOCYTE # Normal [facility] Comment on above: Performed By: #### E RUR #### [facility] [address] [place] [address] Dr. Deepika Terrell MYELOCYTE % Normal [facility] Comment on above: Performed By: #### E RUR #### [facility] [address] [place] [address] Dr. Deepika Terrell NRBC Normal [facility] Comment on above: Performed By: #### E RUR #### [facility] [address] [place] [address] Dr. Deepika Terrell PLT 423 103/ul Normal 150-450 [facility] Comment on above: Performed By: #### E RUR #### [facility] [address] [place] [address] Dr. Deepika Terrell RBC 3.93 106/ul Critically low 4.70-6.10 [facility] Comment on above: Performed By: #### E RUR #### [facility] [address] [place] [address] Dr. Deepika Terrell RDW 14.7 % Normal 11.0-15.0 [facility] Comment on above: Performed By: #### E RUR #### [facility] [address] [place] [address] Dr. Deepika Terrell SEG # 15.79 103/ul Critically high 1.40-6.50 [facility] Comment on above: Performed By: #### E RUR #### [facility] [address] [place] [address] Dr. Deepika Terrell SEG % 77.0 % Critically high 43.0-75.0 [facility] Comment on above: Performed By: #### E RUR #### [facility] [address] [address] [address] Deepika Terrell WBC 20.5 103/ul Critically high 4.0-11.0 [facility] Comment on above: Performed By: #### E RUR #### [facility] [address] [address] [address] Deepika Terrell FREE THYROXINE INDEX T7on FTI 1.95 Normal 1.30-4.50 [facility] Comment on above: Performed By: #### C BC #### [facility] [address] [place] [address] Dr. Deepika Terrell T3U 39.0 % Normal 33.0-40.0 [facility] Comment on above: Performed By: #### C BC #### [facility] [address] [place] [address] Dr. Deepika Terrell T4 [Mass/Vol] 5.00 ug/dL Normal 4.50-12.10 [facility] Comment on above: Performed By: #### C BC #### [facility] [address] [place] [address] Dr. Deepika Terrell LIPASEon 07-17-2022 Lipase [Catalytic activity/Vol] 126.0 U/L Normal 73.0-393.0 [facility] Comment on above: Performed By: #### C BC #### [facility] [address] [place] [address] Dr. Deepika Terrell LIVER PROFILEon 07-17-2022 Albumin [Mass/Vol] 3.7 g/dL Normal 3.4-5.0 [facility] Comment on above: Performed By: #### C BC #### [facility] [address] [place] [address] Dr. Deepika Terrell Albumin/Globulin [Mass ratio] 1.0 {ratio} Normal [facility] Comment on above: Performed By: #### C BC #### [facility] [address] [place] [address] Dr. Deepika Terrell ALP [Catalytic activity/Vol] 82 U/L Normal 46-116 [facility] Comment on above: Performed By: #### C BC #### [facility] [address] [place] [address] Dr. Deepika Terrell ALT [Catalytic activity/Vol] 33 U/L Normal 16-63 [facility] Comment on above: Performed By: #### C BC #### [facility] [address] [place] [address] Dr. Deepika Terrell AST [Catalytic activity/Vol] 15 U/L Normal 15-37 [facility] Comment on above: Performed By: #### C BC #### [facility] [address] [place] [address] Dr. Deepika Terrell BILI, CONJUGATED 0.1 mg/dL Normal 0.0-0.2 [facility] Comment on above: Performed By: #### C BC #### [facility] [address] [place] [address] Dr. Deepika Terrell Bilirubin [Mass/Vol] 0.2 mg/dL Normal 0.2-1.0 [facility] Comment on above: Performed By: #### C BC #### [facility] [address] [place] [address] Dr. Deepika Terrell Globulin (S) [Mass/Vol] 3.6 g/dL Normal [facility] Comment on above: Performed By: #### C BC #### [facility] [address] [place] [address] Dr. Deepika Terrell Protein [Mass/Vol] 7.3 g/dL Normal 6.4-8.2 [facility] Comment on above: Performed By: #### C BC #### [facility] [address] [place] [address] Dr. Deepika Terrell PERIPHERAL SMEARon 3 Pathologist Cyto stain Nom (Cvx/Vag) [ID] DR. ANNIKA NIETO Normal [facility] Comment on above: Result Comment: revi ew of smear reveals n/n w/aniso. plts. normal. leukocytosis with neutrophili and absolute monocytosis. no atypical lymphs, immature blasts seen. these findings are suggestive of a reactive process. clinical correlation is recommend Performed By: #### P ERSMR #### [facility] [address] [place] [address] Dr. Deepika Terrell PROF CHEM 8 (BAS METB)on Anion gap [Moles/Vol] 19.0 mmol/L Normal [facility] Comment on above: Performed By: #### C BC #### [facility] [address] [place] [address] Dr. Deepika Terrell Calcium [Mass/Vol] 9.5 mg/dL Normal 8.5-10.1 [facility] Comment on above: Performed By: #### C BC #### [facility] [address] [place] [address] Dr. Deepika Terrell Chloride [Moles/Vol] 112 mmol/L Critically high 98-107 [facility] Comment on above: Performed By: #### C BC #### [facility] [address] [place] [address] Dr. Deepika Terrell CO2 [Moles/Vol] 19.4 mmol/L Critically low 21.0-32.0 [facility] Comment on above: Performed By: #### C BC #### [facility] [address] [place] [address] Dr. Deepika Terrell Creatinine [Mass/Vol] 2.51 mg/dL Critically high 0.70-1.30 [facility] Comment on above: Performed By: #### C BC #### [facility] [address] [place] [address] Dr. Deepika Terrell EGFR-AF RUSSIAN 30 mL/min/1.73m2 Critically low >=60 [facility] Comment on above: Performed By: #### C BC #### [facility] [address] [place] [address] Dr. Deepika Terrell EGFR-NON AF RUSSIAN 24 mL/min/1.73m2 Critically low >=60 [facility] Comment on above: Performed By: #### C BC #### [facility] [address] [address] [address] Deepika Terrell Glucose [Mass/Vol] 159 mg/dL Critically high 74-106 [facility] Comment on above: Performed By: #### C BC #### [facility] [address] [address] [address] Deepika Terrell Potassium [Moles/Vol] 4.4 mmol/L Normal 3.5-5.1 [facility] Comment on above: Performed By: #### C BC #### [facility] [address] [address] [address] Deepika Terrell Sodium [Moles/Vol] 146 mmol/L Critically high 136-145 [facility] Comment on above: Performed By: #### C BC #### [facility] [address] [place] [address] Dr. Deepika Terrell Urea nitrogen [Mass/Vol] 67.0 mg/dL Critically high 7.0-18.0 [facility] Comment on above: Performed By: #### C BC #### [facility] [address] [address] [address] Deepika Terrell Urea nitrogen/Creatinin e [Mass ratio] 26.7 mg/mg Normal [facility] Comment on above: Performed By: #### C BC #### [facility] [address] [place] [address] Dr. Deepika Terrell TSHon 07-17-2022 TSH 0.884 uIU/mL Normal 0.358-3.740 [facility] Comment on above: Performed By: #### C BC #### [facility] [address] [place] [address] Dr. Deepika Terrell INSULIN FREE AND TOTALon Free Insulin 22 uU/mL Critically high [facility] Comment on above: Result Comment: Refe rence Range: Pubertal Children and Adults (fasting): 0 - 17 Performed By: #### I NSULT #### [facility] [address] [place] [address] Dr. Deepika Terrell Total Insulin 22 uU/mL Normal [facility] Comment on above: Result Comment: Non- [...] developed and its performance characteristics determined by [employer]. It has not been cleared or approved by the Food and Drug Administration. Performed By: #### I NSULT #### [facility] [address] [place] [address] Dr. Deepika Terrell C-PEPTIDE, SERUMon 3 C-Peptide, Serum 7.7 ng/mL Critically high 1.1-4.[address] [facility] Comment on above: Result Comment: C-Pe ptide reference interval is for fasting patients. Performed By: #### C PEPT #### [facility] [address] [place] [address] Dr. Deepika Terrell OVA AND PARASITE EXAMINATION on 06-04-2022 Ova + Parasite Exam Final report Normal [facility] Comment on above: Result Comment: Thes e results were obtained using wet preparation(s) and trichrome stained smear. This test does not include testing for Cryptosporidium parvum, Cyclospora, or Microsporidia. Performed By: #### B MP #### [facility] [address] [place] [address] Dr. Deepika Terrell Result 1 Comment Normal [facility] Comment on above: Result Comment: No o va, cysts, or parasites seen. . One negative specimen does not rule out the possibility of a parasitic infection. Performed By: #### B MP #### [facility] [address] [place] [address] Dr. Deepika Terrell CBC AUTO DIFFon 06-02-2022 BASO # 0.0 103/ul Normal 0.0-0.1 [facility] Comment on above: Performed By: #### I NSULT #### [facility] [address] [place] [address] Dr. Deepika Terrell Basophils/100 WBC (Bld) 0.4 % Normal 0.2-2.0 [facility] Comment on above: Performed By: #### I NSULT #### [facility] [address] [place] [address] Dr. Deepika Terrell EO # 0.4 103/ul Normal 0.0-0.7 [facility] Comment on above: Performed By: #### I NSULT #### [facility] [address] [address] [address] Deepika Terrell Eosinophils/100 WBC (Bld) 3.3 % Normal 0.9-7.0 [facility] Comment on above: Performed By: #### I NSULT #### [facility] [address] [place] [address] Dr. Deepika Terrell Erythrocyte distribution width (RBC) [Ratio] 14.6 % Normal 11.0-15.0 [facility] Comment on above: Performed By: #### I NSULT #### [facility] [address] [place] [address] Dr. Deepika Terrell Hematocrit (Bld) [Volume fraction] 29.8 % Critically low 42.0-54.0 [facility] Comment on above: Performed By: #### I NSULT #### [facility] [address] [place] [address] Dr. Deepika Terrell Hemoglobin (Bld) [Mass/Vol] 9.8 g/dL Critically low 14.0-18.[address] [facility] Comment on above: Performed By: #### I NSULT #### [facility] [address] [place] [address] Dr. Deepika Terrell IG # 0.05 10e3/ul Critically high 0.00-0.03 [facility] Comment on above: Performed By: #### I NSULT #### [facility] [address] [place] [address] Dr. Deepika Terrell IG % 0.5 % Normal 0.0-0.[address] [facility] Comment on above: Performed By: #### I NSULT #### [facility] [address] [address] [address] Deepika Terrell LYMPH # 1.9 103/ul Normal 1.2-3.[address] [facility] Comment on above: Performed By: #### I NSULT #### [facility] [address] [address] [address] Deepika Terrell Lymphocytes/100 WBC (Bld) 17.3 % Critically low 20.5-60.[address] [facility] Comment on above: Performed By: #### I NSULT #### [facility] [address] [address] [address] Deepika Terrell MANUAL DIFF REQ NO Normal [facility] Comment on above: Performed By: #### I NSULT #### [facility] [address] [place] [address] Dr. Deepika Terrell MCH (RBC) [Entitic mass] 29.9 pg Normal 25.9-34.[address] [facility] Comment on above: Performed By: #### I NSULT #### [facility] [address] [place] [address] Dr. Deepika Terrell MCHC (RBC) [Mass/Vol] 32.9 g/dL Normal 29.9-35.[address] [facility] Comment on above: Performed By: #### I NSULT #### [facility] [address] [place] [address] Dr. Deepika Terrell MCV (RBC) [Entitic vol] 90.9 fL Normal 80.0-94.[address] [facility] Comment on above: Performed By: #### I NSULT #### [facility] [address] [place] [address] Dr. Deepika Terrell MONO # 0.8 103/ul Normal 0.3-0.[address] [facility] Comment on above: Performed By: #### I NSULT #### [facility] [address] [place] [address] Dr. Deepika Terrell Monocytes/100 WBC (Bld) 7.4 % Normal 1.7-12.[address] [facility] Comment on above: Performed By: #### I NSULT #### [facility] [address] [address] [address] Deepika Terrell NEUT # 7.9 103/ul Critically high 1.4-6.5 [facility] Comment on above: Performed By: #### I NSULT #### [facility] [address] [place] [address] Dr. Deepika Terrell Neutrophils/100 WBC (Bld) 71.1 % Normal 43.0-75.[address] [facility] Comment on above: Performed By: #### I NSULT #### [facility] [address] [place] [address] Dr. Deepika Terrell Platelet mean volume (Bld) [Entitic vol] 10.7 fL Normal 9.5-13.[address] [facility] Comment on above: Performed By: #### I NSULT #### [facility] [address] [place] [address] Dr. Deepika Terrell PLT 295 103/ul Normal 150-[address] [facility] Comment on above: Performed By: #### I NSULT #### [facility] [address] [place] [address] Dr. Deepika Terrell RBC 3.28 106/ul Critically low 4.70-6.10 [facility] Comment on above: Performed By: #### I NSULT #### [facility] [address] [place] [address] Dr. Deepika Terrell WBC 11.1 103/ul Critically high 4.0-11.0 [facility] Comment on above: Performed By: #### I NSULT #### [facility] [address] [place] [address] ABD/PELV W CONon [...] YANIV DACOSTA Date: 2022-06-01 22:[address] [facility] Covid-19 PCR (CVDTB)on 05-09 SARS-CoV-2 (COVID-19) RNA DANICA+probe Ql (Unsp spec) Not detected Normal NOT DETECTED [facility] Comment on above: Result Comment: When diagnostic [...] for this test is supported by the Sh[employer] of Health and Human Service's declaration that [...] used). Performed By: #### I NSULT #### [facility] [address] [place] [address] Dr. Deepika Terrell ER URINE PROFILEon 3 Bilirubin Ql (U) Negative Normal NEGATIVE [facility] Comment on above: Performed By: #### E RUR #### [facility] [address] [place] [address] Dr. Deepika Terrell Clarity (U) CLEAR Normal CLEAR [facility] Comment on above: Performed By: #### E RUR #### [facility] [address] [place] [address] Dr. Deepika Terrell Color (U) LT. YELLOW Normal YELLOW [facility] Comment on above: Performed By: #### E RUR #### [facility] [address] [place] [address] Dr. Deepika Terrell ERUAHD A micrscopic examina tion will be performed if indicated. Normal [facility] Comment on above: Performed By: #### E RUR #### [facility] [address] [place] [address] Dr. Deepika Terrell Glucose Ql (U) Negative Normal NEGATIVE [facility] Comment on above: Performed By: #### E RUR #### [facility] [address] [place] [address] Dr. Deepika Terrell Hemoglobin Ql (U) Negative Normal NEGATIVE [facility] Comment on above: Performed By: #### E RUR #### [facility] [address] [place] [address] Dr. Deepika Terrell Ketones Ql (U) Negative Normal NEGATIVE [facility] Comment on above: Performed By: #### E RUR #### [facility] [address] [place] [address] Dr. Deepika Terrell LEUKOCYTES Negative Normal NEGATIVE [facility] Comment on above: Performed By: #### E RUR #### [facility] [address] [place] [address] Dr. Deepika Terrell Nitrite Ql (U) Negative Normal NEGATIVE [facility] Comment on above: Performed By: #### E RUR #### [facility] [address] [place] [address] Dr. Deepika Terrell pH (U) 6.0 [pH] Normal 5-9 [facility] Comment on above: Performed By: #### E RUR #### [facility] [address] [place] [address] Dr. Deepika Terrell SPEC GRAVITY 1.010 Normal 1.005-<=1.02 5 [facility] Comment on above: Performed By: #### E RUR #### [facility] [address] [place] [address] Dr. Deepika Terrell UA PROTEIN Negative Normal NEGATIVE/ TRACE [facility] Comment on above: Performed By: #### E RUR #### [facility] [address] [place] [address] Dr. Deepika Terrell UR MICRO IND NOT INDICATED Normal [facility] Comment on above: Performed By: #### E RUR #### [facility] [address] [place] [address] Dr. Deepika Terrell Urobilinogen Qn (U) 0.2 {Jesus'U}/dL Normal 0.2 - 1.0 [facility] Comment on above: Performed By: #### E RUR #### [facility] [address] [place] [address] Dr. Deepika Terrell GLYCOHEMOGLOBIN A1Con 2022 ADA RECOMMENDATION SEE BELOW Normal [facility] Comment on above: Result Comment: ADA RECOMMENDED LIMIT 4.0 - 6.0 ADA THERAPEUTIC TARGET < 7.0 ACTION SUGGESTED > 7.0 Performed By: #### I NSULT #### [facility] [address] [address] [address] Deepika Terrell Glucose [Mass/Vol] 134 mg/dL Normal [facility] Comment on above: Performed By: #### I NSULT #### [facility] [address] [address] [address] Deepika Terrell HbA1c (Bld) [Mass fraction] 6.3 % Critically high 4.5-6.2 [facility] Comment on above: Performed By: #### I NSULT #### [facility] [address] [place] [address] Dr. Deepika Terrell POINT OF CARE GLUCOSEon 05-09 Glucose [Mass/Vol] 175 mg/dL Critically high 74-106 [facility] Comment on above: Performed By: #### I NSULT #### [facility] [address] [place] [address] Dr. Deepika Terrell Glucose [Mass/Vol] 151 mg/dL Critically high 74-106 [facility] Comment on above: Performed By: #### I NSULT #### [facility] [address] [place] [address] Dr. Deepika Terrell Glucose [Mass/Vol] 95 mg/dL Normal 74-106 [facility] Comment on above: Performed By: #### C BC #### [facility] [address] [place] [address] Dr. Deepika Terrell Glucose [Mass/Vol] 83 mg/dL Normal 74-106 [facility] Comment on above: Performed By: #### I NSULT #### [facility] [address] [place] [address] Dr. Deepika Terrell Glucose [Mass/Vol] 63 mg/dL Critically low 74-106 [facility] Comment on above: Performed By: #### P ERSMR #### [facility] [address] [place] [address] Dr. Deepika Terrell Glucose [Mass/Vol] 48 mg/dL Critically low 74-106 [facility] Comment on above: Result Comment: Resu lt Not Confirmed Performed By: #### B MP #### [facility] [address] [address] [address] Deepika Terrell Glucose [Mass/Vol] 62 mg/dL Critically low 74-106 [facility] Comment on above: Performed By: #### B MP #### [facility] [address] [address] [address] Deepika Terrell Glucose [Mass/Vol] 61 mg/dL Critically low 74-106 [facility] Comment on above: Performed By: #### C PEPT #### [facility] [address] [address] [address] Deepika Terrell PROF CHEM 8 (BAS METB)on Anion gap [Moles/Vol] 11.6 mmol/L Normal [facility] Comment on above: Performed By: #### B MP #### [facility] [address] [place] [address] Dr. Deepika Terrell Calcium [Mass/Vol] 8.2 mg/dL Critically low 8.5-10.1 [facility] Comment on above: Performed By: #### B MP #### [facility] [address] [place] [address] Dr. Deepika Terrell Chloride [Moles/Vol] 111 mmol/L Critically high 98-107 [facility] Comment on above: Performed By: #### B MP #### [facility] [address] [place] [address] Dr. Deepika Terrell CO2 [Moles/Vol] 23.5 mmol/L Normal 21.0-32.0 [facility] Comment on above: Performed By: #### B MP #### [facility] [address] [place] [address] Dr. Deepika Terrell Creatinine [Mass/Vol] 1.32 mg/dL Critically high 0.70-1.30 [facility] Comment on above: Performed By: #### B MP #### [facility] [address] [place] [address] Dr. Deepika Terrell EGFR-AF RUSSIAN >60 Normal >=60 [facility] Comment on above: Performed By: #### B MP #### [facility] [address] [address] [address] Deepika Terrell EGFR-NON AF RUSSIAN 51 mL/min/1.73m2 Critically low >=60 [facility] Comment on above: Performed By: #### B MP #### [facility] [address] [address] [address] Deepika Terrell Glucose [Mass/Vol] 91 mg/dL Normal 74-106 [facility] Comment on above: Performed By: #### B MP #### [facility] [address] [address] [address] Deepika Terrell Potassium [Moles/Vol] 4.1 mmol/L Normal 3.5-5.1 [facility] Comment on above: Performed By: #### B MP #### [facility] [address] [address] [address] Deepika Terrell Sodium [Moles/Vol] 142 mmol/L Normal 136-145 [facility] Comment on above: Performed By: #### B MP #### [facility] [address] [address] [address] Deepika Terrell Urea nitrogen [Mass/Vol] 29.0 mg/dL Critically high 7.0-18.0 [facility] Comment on above: Performed By: #### B MP #### [facility] [address] [address] [address] Deepika Terrell Urea nitrogen/Creatinin e [Mass ratio] 22.0 mg/mg Normal [facility] Comment on above: Performed By: #### B MP #### [facility] [address] [address] [address] Deepika Terrell AMMONIAon 06-01-2022 Ammonia (P) [Moles/Vol] 17 umol/L Normal 11-32 [facility] Comment on above: Performed By: #### C BC #### [facility] [address] [address] [address] Deepika Terrell BNPon 06-01-2022 Natriuretic peptide B (Bld) [Mass/Vol] 132.0 pg/mL Normal <=1,800.0 [facility] Comment on above: Performed By: #### C BC #### [facility] [address] [place] [address] Dr. Deepika Terrell CBC AUTO DIFFon 06-01-2022 BASO # 0.1 103/ul Normal 0.0-0.1 [facility] Comment on above: Performed By: #### C BC #### [facility] [address] [place] [address] Dr. Deepika Terrell Basophils/100 WBC (Bld) 0.3 % Normal 0.2-2.0 [facility] Comment on above: Performed By: #### C BC #### [facility] [address] [place] [address] Dr. Deepika Terrell EO # 0.1 103/ul Normal 0.0-0.7 [facility] Comment on above: Performed By: #### C BC #### [facility] [address] [place] [address] Dr. Deepika Terrell Eosinophils/100 WBC (Bld) 0.9 % Normal 0.9-7.0 [facility] Comment on above: Performed By: #### C BC #### [facility] [address] [place] [address] Dr. Deepika Terrell Erythrocyte distribution width (RBC) [Ratio] 14.7 % Normal 11.0-15.0 [facility] Comment on above: Performed By: #### C BC #### [facility] [address] [place] [address] Dr. Deepika Terrell Hematocrit (Bld) [Volume fraction] 33.6 % Critically low 42.0-54.0 [facility] Comment on above: Performed By: #### C BC #### [facility] [address] [place] [address] Dr. Deepika Terrell Hemoglobin (Bld) [Mass/Vol] 10.9 g/dL Critically low 14.0-18.0 [facility] Comment on above: Performed By: #### C BC #### [facility] [address] [place] [address] Dr. Deepika Terrell IG # 0.07 10e3/ul Critically high 0.00-0.03 [facility] Comment on above: Performed By: #### C BC #### [facility] [address] [place] [address] Dr. Deepika Terrell IG % 0.5 % Normal 0.0-0.5 [facility] Comment on above: Performed By: #### C BC #### [facility] [address] [place] [address] Dr. Deepika Terrell LYMPH # 1.5 103/ul Normal 1.2-3.8 [facility] Comment on above: Performed By: #### C BC #### [facility] [address] [place] [address] Dr. Deepika Terrell Lymphocytes/100 WBC (Bld) 10.3 % Critically low 20.5-60.0 [facility] Comment on above: Performed By: #### C BC #### [facility] [address] [place] [address] Dr. Deepika Terrell MANUAL DIFF REQ NO Normal [facility] Comment on above: Performed By: #### C BC #### [facility] [address] [place] [address] Dr. Deepika Terrell MCH (RBC) [Entitic mass] 29.9 pg Normal 25.9-34.0 [facility] Comment on above: Performed By: #### C BC #### [facility] [address] [place] [address] Dr. Deepika Terrell MCHC (RBC) [Mass/Vol] 32.4 g/dL Normal 29.9-35.2 [facility] Comment on above: Performed By: #### C BC #### [facility] [address] [place] [address] Dr. Deepika Terrell MCV (RBC) [Entitic vol] 92.1 fL Normal 80.0-94.0 [facility] Comment on above: Performed By: #### C BC #### [facility] [address] [place] [address] Dr. Deepika Terrell MONO # 1.3 103/ul Critically high 0.3-0.8 [facility] Comment on above: Performed By: #### C BC #### [facility] [address] [address] [address] Deepika Terrell Monocytes/100 WBC (Bld) 8.9 % Normal 1.7-12.0 [facility] Comment on above: Performed By: #### C BC #### [facility] [address] [address] [address] Deepika Terrell NEUT # 11.8 103/ul Critically high 1.4-6.5 [facility] Comment on above: Performed By: #### C BC #### [facility] [address] [address] [address] Deepika Terrell Neutrophils/100 WBC (Bld) 79.1 % Critically high 43.0-75.0 [facility] Comment on above: Performed By: #### C BC #### [facility] [address] [place] [address] Dr. Deepika Terrell Platelet mean volume (Bld) [Entitic vol] 11.4 fL Normal 9.5-13.5 [facility] Comment on above: Performed By: #### C BC #### [facility] [address] [place] [address] Dr. Deepika Terrell PLT 324 103/ul Normal 150-450 [facility] Comment on above: Performed By: #### C BC #### [facility] [address] [address] [address] Deepika Terrell RBC 3.65 106/ul Critically low 4.70-6.10 [facility] Comment on above: Performed By: #### C BC #### [facility] [address] [address] [address] Deepika Terrell WBC 14.9 103/ul Critically high 4.0-11.0 [facility] Comment on above: Performed By: #### C BC #### [facility] [address] [place] [address] Dr. Deepika Terrell POINT OF CARE GLUCOSEon 05-09 Glucose [Mass/Vol] 29 mg/dL Critically low 74-106 Th [facility] Comment on above: Result Comment: Resu lt Not Confirmed Performed By: #### B MP #### [facility] [address] [place] [address] Dr. Deepika Terrell Glucose [Mass/Vol] 28 mg/dL Critically low 74-106 Th [facility] Comment on above: Result Comment: Will Repeat Test Performed By: #### C PEPT #### [facility] [address] [place] [address] Dr. Deepika Terrell PROF 14(COMP METB)on 023 Albumin [Mass/Vol] 3.3 g/dL Critically low 3.4-5.0 Th [facility] Comment on above: Performed By: #### C BC #### [facility] [address] [place] [address] Dr. Deepika Terrell Albumin/Globulin [Mass ratio] 1.0 {ratio} Normal [facility] Comment on above: Performed By: #### C BC #### [facility] [address] [place] [address] Dr. Deepika Terrell ALP [Catalytic activity/Vol] 75 U/L Normal 46-116 [facility] Comment on above: Performed By: #### C BC #### [facility] [address] [place] [address] Dr. Deepika Terrell ALT [Catalytic activity/Vol] 34 U/L Normal 16-63 [facility] Comment on above: Performed By: #### C BC #### [facility] [address] [place] [address] Dr. Deepika Terrell Anion gap [Moles/Vol] 14.0 mmol/L Normal [facility] Comment on above: Performed By: #### C BC #### [facility] [address] [place] [address] Dr. Deepika Terrell AST [Catalytic activity/Vol] 19 U/L Normal 15-37 [facility] Comment on above: Performed By: #### C BC #### [facility] [address] [place] [address] Dr. Deepika Terrell Bilirubin [Mass/Vol] 0.2 mg/dL Normal 0.2-1.0 [facility] Comment on above: Performed By: #### C BC #### [facility] [address] [address] [address] Deepika Terrell Calcium [Mass/Vol] 8.6 mg/dL Normal 8.5-10.1 [facility] Comment on above: Performed By: #### C BC #### [facility] [address] [address] [address] Deepika Terrell Chloride [Moles/Vol] 109 mmol/L Critically high 98-107 [facility] Comment on above: Performed By: #### C BC #### [facility] [address] [address] [address] Deepika Terrell CO2 [Moles/Vol] 23.9 mmol/L Normal 21.0-32.0 [facility] Comment on above: Performed By: #### C BC #### [facility] [address] [address] [address] Deepika Terrell Creatinine [Mass/Vol] 1.59 mg/dL Critically high 0.70-1.30 [facility] Comment on above: Performed By: #### C BC #### [facility] [address] [address] [address] Deepika Terrell EGFR-AF RUSSIAN 50 mL/min/1.73m2 Critically low >=60 [facility] Comment on above: Performed By: #### C BC #### [facility] [address] [address] [address] Deepika Terrell EGFR-NON AF RUSSIAN 41 mL/min/1.73m2 Critically low >=60 [facility] Comment on above: Performed By: #### C BC #### [facility] [address] [address] [address] Deepika Terrell Globulin (S) [Mass/Vol] 3.3 g/dL Normal [facility] Comment on above: Performed By: #### C BC #### [facility] [address] [address] [address] Deepika Terrell Glucose [Mass/Vol] 26 mg/dL Critically low 74-106 Th [facility] Comment on above: Performed By: #### C BC #### [facility] [address] [address] [address] Deepika Terrell Potassium [Moles/Vol] 3.9 mmol/L Normal 3.5-5.1 [facility] Comment on above: Performed By: #### C BC #### [facility] [address] [address] [address] Deepika Terrell Protein [Mass/Vol] 6.6 g/dL Normal 6.4-8.2 [facility] Comment on above: Performed By: #### C BC #### [facility] [address] [address] [address] Deepika Terrell Sodium [Moles/Vol] 143 mmol/L Normal 136-145 [facility] Comment on above: Performed By: #### C BC #### [facility] [address] [address] [address] Deepika Terrell Urea nitrogen [Mass/Vol] 34.0 mg/dL Critically high 7.0-18.0 [facility] Comment on above: Performed By: #### C BC #### [facility] [address] [address] [address] Deepika Terrell Urea nitrogen/Creatinin e [Mass ratio] 21.4 mg/mg Normal [facility] Comment on above: Performed By: #### C BC #### [facility] [address] [address] [address] Deepika Terrell TROPONIN, HIGH SENSITIVITYon 06-01-2022 HSTROP 13.2 pg/mL Normal 4.0-76.1 [facility] Comment on above: Result Comment: CUT- OFF POINTS HAVE BEEN ESTABLISHED BASED ON THE FOURTH UNIVERSAL DEFINITIONS OF MYOCARDIAL INFARCTION. THE UPPER REFERENCE LIMIT (URL) OF TROPONIN, DEFINED THE 99TH PERCENTILE OF cTnI DISTRIBUTION IN A REFERENCE POPULATION, HAS BEEN CONFIRMED THE DECISION THRESHOLD FOR [place] DIAGNOSIS. Performed By: #### B MP #### [facility] [address] [address] [address] Deepika Terrell GI PANEL (PCR)on 05-30-2022 Adenovirus F 40/41 Not detected Normal NOT DETECTED Th [facility] Comment on above: Performed By: #### P ERSMR #### [facility] [address] [address] [address] Deepika Terrell Astrovirus Not detected Normal NOT DETECTED The [facility] Comment on above: Performed By: #### P ERSMR #### [facility] [address] [place] [address] Dr. Deepika Terrell C. Diff toxin A/B Not detected Normal NOT DETECTED The [facility] Comment on above: Performed By: #### P ERSMR #### [facility] [address] [place] [address] Dr. Deepika Terrell Campylobacter Not detected Normal NOT DETECTED The [facility] Comment on above: Performed By: #### P ERSMR #### [facility] [address] [place] [address] Dr. Deepika Terrell Cryptosporidium Not detected Normal NOT DETECTED The [facility] Comment on above: Performed By: #### P ERSMR #### [facility] [address] [place] [address] Dr. Deepika Terrell Cyclos. Cayetanensis Not detected Normal NOT DETECTED The [facility] Comment on above: Performed By: #### P ERSMR #### [facility] [address] [place] [address] Dr. Deepika Terrell E. Coli O157 Not Applicable Normal Not Applicable The [facility] Comment on above: Performed By: #### P ERSMR #### [facility] [address] [place] [address] Dr. Deepika Terrell E. histolytica Not detected Normal NOT DETECTED The [facility] Comment on above: Performed By: #### P ERSMR #### [facility] [address] [place] [address] Dr. Deepika Terrell EAEC Not detected Normal NOT DETECTED The [facility] Comment on above: Performed By: #### P ERSMR #### [facility] [address] [place] [address] Dr. Deepika Terrell EIEC Not detected Normal NOT DETECTED The [facility] Comment on above: Performed By: #### P ERSMR #### [facility] [address] [address] [address] Deepika Terrell EPEC Not detected Normal NOT DETECTED The [facility] Comment on above: Performed By: #### P ERSMR #### [facility] [address] [address] [address] Deepika Terrell ETEC Not detected Normal NOT DETECTED The [facility] Comment on above: Performed By: #### P ERSMR #### [facility] [address] [address] [address] Deepika Terrell G. Lamblia Not detected Normal NOT DETECTED The [facility] Comment on above: Performed By: #### P ERSMR #### [facility] [address] [place] [address] Dr. Deepika WOLFE CONTROLS PASSED Normal The [facility] Comment on above: Performed By: #### P ERSMR #### [facility] [address] [place] [address] Dr. Deepika RYAN HEADER GI PANEL BACTERIA Normal T [facility] Comment on above: Performed By: #### P ERSMR #### [facility] [address] [place] [address] Dr. Deepika CACERES ECOLI GI PANEL DIARRHEAGEN IC E.COLI / SHIGELLA Normal [facility] Comment on above: Performed By: #### P ERSMR #### [facility] [address] [place] [address] Dr. Deepika CACERES INFO SEE BELOW Normal [facility] Comment on above: Result Comment: EAEC - Enteroaggregative E. Coli EPEC- Enteropathogenic E. Coli ETEC- Enterotoxigenic E. Coli lt/st STEC- Shigella-like toxin-producing E. Coli stx1/stx2 EIEC- Shigella/Enteroinvasive E. Coli Performed By: #### P ERSMR #### [facility] [address] [place] [address] Dr. Deepika CACERES PARASITES GI PANEL PARASITES Normal [facility] Comment on above: Performed By: #### P ERSMR #### [facility] [address] [place] [address] Dr. Deepika Terrell GIPNLHD VIRUS GI PANEL VIRUSES Normal The [facility] Comment on above: Performed By: #### P ERSMR #### [facility] [address] [place] [address] Dr. Deepika Terrell Norovirus GI/GII Not detected Normal NOT DETECTED The [facility] Comment on above: Performed By: #### P ERSMR #### [facility] [address] [place] [address] Dr. Deepika Terrell P. Shigelloides Not detected Normal NOT DETECTED The [facility] Comment on above: Performed By: #### P ERSMR #### [facility] [address] [address] [address] Deepika Terrell Rotavirus A Not detected Normal NOT DETECTED The [facility] Comment on above: Performed By: #### P ERSMR #### [facility] [address] [place] [address] Dr. Deepika Terrell Salmonella Not detected Normal NOT DETECTED The [facility] Comment on above: Performed By: #### P ERSMR #### [facility] [address] [place] [address] Dr. Deepika Terrell Sapovirus Not detected Normal NOT DETECTED The [facility] Comment on above: Performed By: #### P ERSMR #### [facility] [address] [place] [address] Dr. Deepika Terrell STEC Not detected Normal NOT DETECTED The [facility] Comment on above: Performed By: #### P ERSMR #### [facility] [address] [place] [address] Dr. Deepika Terrell Vibrio Not detected Normal NOT DETECTED The [facility] Comment on above: Performed By: #### P ERSMR #### [facility] [address] [address] [address] Deepika Terrell Vibrio Cholera Not detected Normal NOT DETECTED The [facility] Comment on above: Performed By: #### P ERSMR #### [facility] [address] [place] [address] Dr. Deepika Terrell Y. Enterocolitica Not detected Normal NOT DETECTED The [facility] Comment on above: Performed By: #### P ERSMR #### [facility] [address] [address] [address] Deepika Terrell PROF CHEM 8 (BAS METB)on Anion gap [Moles/Vol] 13.9 mmol/L Normal [facility] Comment on above: Performed By: #### P ERSMR #### [facility] [address] [address] [address] Deepika Terrell Calcium [Mass/Vol] 8.9 mg/dL Normal 8.5-10.1 [facility] Comment on above: Performed By: #### P ERSMR #### [facility] [address] [address] [address] Deepika Terrell Chloride [Moles/Vol] 104 mmol/L Normal 98-107 [facility] Comment on above: Performed By: #### P ERSMR #### [facility] [address] [place] [address] Dr. Deepika Terrell CO2 [Moles/Vol] 26.3 mmol/L Normal 21.0-32.0 [facility] Comment on above: Performed By: #### P ERSMR #### [facility] [address] [place] [address] Dr. Deepika Terrell Creatinine [Mass/Vol] 1.70 mg/dL Critically high 0.70-1.30 [facility] Comment on above: Performed By: #### P ERSMR #### [facility] [address] [address] [address] Deepika Terrell EGFR-AF RUSSIAN 47 mL/min/1.73m2 Critically low >=60 [facility] Comment on above: Performed By: #### P ERSMR #### [facility] [address] [address] [address] Deepika Terrell EGFR-NON AF RUSSIAN 38 mL/min/1.73m2 Critically low >=60 [facility] Comment on above: Performed By: #### P ERSMR #### [facility] [address] [address] [address] Deepika Terrell Glucose [Mass/Vol] 62 mg/dL Critically low 74-[address] [facility] Comment on above: Performed By: #### P ERSMR #### [facility] [address] [address] [address] Deepika Terrell Potassium [Moles/Vol] 4.2 mmol/L Normal 3.5-5.1 [facility] Comment on above: Performed By: #### P ERSMR #### [facility] [address] [address] [address] Deepika Terrell Sodium [Moles/Vol] 140 mmol/L Normal 136-145 [facility] Comment on above: Performed By: #### P ERSMR #### [facility] [address] [address] [address] Deepika Terrell Urea nitrogen [Mass/Vol] 34.0 mg/dL Critically high 7.0-18.0 [facility] Comment on above: Performed By: #### P ERSMR #### [facility] [address] [address] [address] Deepika Terrell Urea nitrogen/Creatinin e [Mass ratio] 20.0 mg/mg Normal [facility] Comment on above: Performed By: #### P ERSMR #### [facility] [address] [place] [address] Dr. Deepika Terrell ECHOCARDIO M/2D COMPLETEon 1 06-02-2021 ECHOCARDIO M/2D COMPLETE Patient: LILIANA NATARAJAN Exam Date: 04/01/2022 : 1935 Gender:M Ordering : ARNEL KELLOGG Admission #: [id number] Family : Order #: [id number] CLICK HERE TO VIEW EXAM ECHOCARDIOGRAM REPORT [...] M.D. on 04/09/2022 at 08:[address] [facility] CBC AUTO DIFFon 02-05-2022 BASO # 0.1 103/ul Normal 0.0-0.1 [facility] Comment on above: Performed By: #### C BC #### [facility] [address] [place] [address] Dr. Deepika Terrell Basophils/100 WBC (Bld) 0.5 % Normal 0.2-2.0 [facility] Comment on above: Performed By: #### C BC #### [facility] [address] [place] [address] Dr. Deepika Terrell EO # 0.3 103/ul Normal 0.0-0.[address] [facility] Comment on above: Performed By: #### C BC #### [facility] [address] [place] [address] Dr. Deepika Terrell Eosinophils/100 WBC (Bld) 3.3 % Normal 0.9-7.[address] [facility] Comment on above: Performed By: #### C BC #### [facility] [address] [place] [address] Dr. Deepika Terrell Erythrocyte distribution width (RBC) [Ratio] 14.0 % Normal 11.0-15.0 [facility] Comment on above: Performed By: #### C BC #### [facility] [address] [place] [address] Dr. Deepika Terrell Hematocrit (Bld) [Volume fraction] 41.2 % Critically low 42.0-54.0 [facility] Comment on above: Performed By: #### C BC #### [facility] [address] [address] [address] Deepika Terrell Hemoglobin (Bld) [Mass/Vol] 13.4 g/dL Critically low 14.0-18.0 [facility] Comment on above: Performed By: #### C BC #### [facility] [address] [place] [address] Dr. Deepika Terrell IG # 0.04 10e3/ul Critically high 0.00-0.03 [facility] Comment on above: Performed By: #### C BC #### [facility] [address] [place] [address] Dr. Deepika Terrell IG % 0.4 % Normal 0.0-0.5 [facility] Comment on above: Performed By: #### C BC #### [facility] [address] [place] [address] Dr. Deepika Terrell LYMPH # 3.4 103/ul Normal 1.2-3.8 [facility] Comment on above: Performed By: #### C BC #### [facility] [address] [place] [address] Dr. Deepika Terrell Lymphocytes/100 WBC (Bld) 36.2 % Normal 20.5-60.0 [facility] Comment on above: Performed By: #### C BC #### [facility] [address] [place] [address] Dr. Deepika Terrell MANUAL DIFF REQ NO Normal [facility] Comment on above: Performed By: #### C BC #### [facility] [address] [place] [address] Dr. Deepika Terrell MCH (RBC) [Entitic mass] 30.9 pg Normal 25.9-34.0 [facility] Comment on above: Performed By: #### C BC #### [facility] [address] [address] [address] Deepika Terrell MCHC (RBC) [Mass/Vol] 32.5 g/dL Normal 29.9-35.2 [facility] Comment on above: Performed By: #### C BC #### [facility] [address] [place] [address] Dr. Deepika Terrell MCV (RBC) [Entitic vol] 94.9 fL Critically high 80.0-94.0 [facility] Comment on above: Performed By: #### C BC #### [facility] [address] [place] [address] Dr. Deepika Terrell MONO # 0.9 103/ul Critically high 0.3-0.8 [facility] Comment on above: Performed By: #### C BC #### [facility] [address] [place] [address] Dr. Deepika Terrell Monocytes/100 WBC (Bld) 9.9 % Normal 1.7-12.0 [facility] Comment on above: Performed By: #### C BC #### [facility] [address] [place] [address] Dr. Deepika Terrell NEUT # 4.7 103/ul Normal 1.4-6.5 [facility] Comment on above: Performed By: #### C BC #### [facility] [address] [place] [address] Dr. Deepika Terrell Neutrophils/100 WBC (Bld) 49.7 % Normal 43.0-75.[address] [facility] Comment on above: Performed By: #### C BC #### [facility] [address] [place] [address] Dr. Deepika Terrell Platelet mean volume (Bld) [Entitic vol] 10.1 fL Normal 9.5-13.[address] [facility] Comment on above: Performed By: #### C BC #### [facility] [address] [place] [address] Dr. Deepika Terrell PLT 290 103/ul Normal 150-[address] [facility] Comment on above: Performed By: #### C BC #### [facility] [address] [place] [address] Dr. Deepika Terrell RBC 4.34 106/ul Critically low 4.70-6.10 [facility] Comment on above: Performed By: #### C BC #### [facility] [address] [address] [address] Deepika Terrell WBC 9.4 103/ul Normal 4.0-11.0 [facility] Comment on above: Performed By: #### C BC #### [facility] [address] [address] [address] Deepika Terrell FREE T3on 02-05-2022 FREE T3 1.83 pg/mlL Critically low 2.18-3.98 [facility] Comment on above: Performed By: #### C PEPT #### [facility] [address] [place] [address] Dr. Deepika Terrell GLYCOHEMOGLOBIN A1Con 2021 ADA RECOMMENDATION SEE BELOW Normal The [facility] Comment on above: Result Comment: ADA RECOMMENDED LIMIT 4.0 - 6.0 ADA THERAPEUTIC TARGET < 7.0 ACTION SUGGESTED > 7.0 Performed By: #### A 1C #### [facility] [address] [place] [address] Dr. Deepika Terrell Glucose [Mass/Vol] 114 mg/dL Normal [facility] Comment on above: Performed By: #### A 1C #### [facility] [address] [place] [address] Dr. Deepika Terrell HbA1c (Bld) [Mass fraction] 5.6 % Normal 4.5-6.2 [facility] Comment on above: Performed By: #### A 1C #### [facility] [address] [place] [address] Dr. Deepika Terrell LIPID PROFILEon 02-05-2022 CHOL-HDL RATIO NORM SEE BELOW Normal The [facility] Comment on above: Result Comment: 3.3 - 4.4 LOW RISK 4.4 - 7.1 AVERAGE RISK 7.1 - 11.0 MODERATE RISK >11.0 HIGH RISK Performed By: #### C PEPT #### [facility] [address] [place] [address] Dr. Deepika Terrell Cholesterol [Mass/Vol] 187 mg/dL Normal <=200 [facility] Comment on above: Performed By: #### C PEPT #### [facility] [address] [place] [address] Dr. Deepika Terrell Cholesterol in HDL [Mass/Vol] 49 mg/dL Normal 40-60 [facility] Comment on above: Performed By: #### C PEPT #### [facility] [address] [place] [address] Dr. Deepika Terrell Cholesterol in LDL [Mass/Vol] 123.8 mg/dL Normal [facility] Comment on above: Performed By: #### C PEPT #### [facility] [address] [place] [address] Dr. Deepika Terrell Cholesterol.total/ Cholesterol in HDL [Mass ratio] 3.8 {ratio} Normal [facility] Comment on above: Performed By: #### C PEPT #### [facility] [address] [place] [address] Dr. Deepika Terrell HDL NORMAL > or = 60 mg/dl - LO W CARDIOVASCULAR RISK <40 mg/dl - HIGH CARDIOVASCULAR RISK Normal [facility] Comment on above: Performed By: #### C PEPT #### [facility] [address] [place] [address] Dr. Deepika Terrell LDL CALC NORMAL SEE BELOW Normal [facility] Comment on above: Result Comment: <100 mg/dl OPTIMAL 100 - 129 mg/dl NEAR OR ABOVE OPTIMAL 130 - 159 mg/dl BORDERLINE HIGH 160 - 189 mg/dl HIGH >190 mg/dl VERY HIGH Performed By: #### C PEPT #### [facility] [address] [place] [address] Dr. Deepika Terrell Triglyceride [Mass/Vol] 71 mg/dL Normal <=[address] [facility] Comment on above: Performed By: #### C PEPT #### [facility] [address] [place] [address] Dr. Deepika Terrell VLDL CALC 14.2 mg/dL Normal [facility] Comment on above: Performed By: #### C PEPT #### [facility] [address] [place] [address] Dr. Deepika Terrell PROF 14(COMP METB)on 022 Albumin [Mass/Vol] 4.0 g/dL Normal 3.4-5.0 [facility] Comment on above: Performed By: #### C PEPT #### [facility] [address] [place] [address] Dr. Deepika Terrell Albumin/Globulin [Mass ratio] 1.2 {ratio} Normal [facility] Comment on above: Performed By: #### C PEPT #### [facility] [address] [place] [address] Dr. Deepika Terrell ALP [Catalytic activity/Vol] 61 U/L Normal 46-116 [facility] Comment on above: Performed By: #### C PEPT #### [facility] [address] [place] [address] Dr. Deepika Terrell ALT [Catalytic activity/Vol] 38 U/L Normal 16-63 [facility] Comment on above: Performed By: #### C PEPT #### [facility] [address] [place] [address] Dr. Deepika Terrell Anion gap [Moles/Vol] 8.1 mmol/L Normal [facility] Comment on above: Performed By: #### C PEPT #### [facility] [address] [place] [address] Dr. Deepika Terrell AST [Catalytic activity/Vol] 19 U/L Normal 15-37 [facility] Comment on above: Performed By: #### C PEPT #### [facility] [address] [place] [address] Dr. Deepika Terrell Bilirubin [Mass/Vol] 0.4 mg/dL Normal 0.2-1.0 [facility] Comment on above: Performed By: #### C PEPT #### [facility] [address] [place] [address] Dr. Deepika Terrell Calcium [Mass/Vol] 9.4 mg/dL Normal 8.5-10.1 [facility] [facility] Comment on above: Performed By: #### C PEPT #### [facility] [address] [place] [address] Dr. Deepika Terrell Chloride [Moles/Vol] 104 mmol/L Normal 98-107 [facility] Comment on above: Performed By: #### C PEPT #### [facility] [address] [place] [address] Dr. Deepika Terrell CO2 [Moles/Vol] 32.6 mmol/L Critically high 21.0-32.0 [facility] Comment on above: Performed By: #### C PEPT #### [facility] [address] [place] [address] Dr. Deepika Terrell Creatinine [Mass/Vol] 1.63 mg/dL Critically high 0.70-1.30 [facility] Comment on above: Performed By: #### C PEPT #### [facility] [address] [place] [address] Dr. Deepika Terrell EGFR-AF RUSSIAN 49 mL/min/1.73m2 Critically low >=60 [facility] Comment on above: Performed By: #### C PEPT #### [facility] [address] [place] [address] Dr. Deepika Terrell EGFR-NON AF RUSSIAN 40 mL/min/1.73m2 Critically low >=60 [facility] Comment on above: Performed By: #### C PEPT #### [facility] [address] [place] [address] Dr. Deepika Terrell Globulin (S) [Mass/Vol] 3.3 g/dL Normal [facility] Comment on above: Performed By: #### C PEPT #### [facility] [address] [place] [address] Dr. Deepika Terrell Glucose [Mass/Vol] 127 mg/dL Critically high 74-106 [facility] Comment on above: Performed By: #### C PEPT #### [facility] [address] [place] [address] Dr. Deepika Terrell Potassium [Moles/Vol] 4.7 mmol/L Normal 3.5-5.1 [facility] Comment on above: Performed By: #### C PEPT #### [facility] [address] [place] [address] Dr. Deepika Terrell Protein [Mass/Vol] 7.3 g/dL Normal 6.4-8.2 [facility] Comment on above: Performed By: #### C PEPT #### [facility] [address] [place] [address] Dr. Deepika Terrell Sodium [Moles/Vol] 140 mmol/L Normal 136-145 [facility] Comment on above: Performed By: #### C PEPT #### [facility] [address] [place] [address] Dr. Deepika Terrell Urea nitrogen [Mass/Vol] 37.0 mg/dL Critically high 7.0-18.0 [facility] Comment on above: Performed By: #### C PEPT #### [facility] [address] [place] [address] Dr. Deepika Terrell Urea nitrogen/Creatinin e [Mass ratio] 22.7 mg/mg Normal [facility] Comment on above: Performed By: #### C PEPT #### [facility] [address] [place] [address] Dr. Deepika Terrell T4on 02-05-2022 T4 [Mass/Vol] 8.40 ug/dL Normal 4.50-12.10 [facility] Comment on above: Performed By: #### C PEPT #### [facility] [address] [place] [address] Dr. Deepika Terrell TSHon 02-05-2022 TSH 1.762 uIU/mL Normal 0.358-3.740 [facility] Comment on above: Performed By: #### C PEPT #### [facility] [address] [place] [address] Dr. Deepika Terrell US [place] DOP LEG [...] DAVID ESPINAL Date: 2021-12-26 13:[address] [facility] PROF CHEM 8 (BAS METB)on Anion gap [Moles/Vol] 15.1 mmol/L Normal [facility] Comment on above: Performed By: #### B MP #### [facility] [address] [address] [address] Deepika Terrell Calcium [Mass/Vol] 9.2 mg/dL Normal 8.5-10.1 [facility] Comment on above: Performed By: #### B MP #### [facility] [address] [address] [address] Deepika Terrell Chloride [Moles/Vol] 102 mmol/L Normal 98-107 [facility] Comment on above: Performed By: #### B MP #### [facility] [address] [address] [address] Deepika Terrell CO2 [Moles/Vol] 25.8 mmol/L Normal 21.0-32.0 [facility] Comment on above: Performed By: #### B MP #### [facility] [address] [address] [address] Deepika Terrell Creatinine [Mass/Vol] 1.70 mg/dL Critically high 0.70-1.30 [facility] Comment on above: Performed By: #### B MP #### [facility] [address] [address] [address] Deepika Terrell EGFR-AF RUSSIAN 47 mL/min/1.73m2 Critically low >=[address] [facility] Comment on above: Performed By: #### B MP #### [facility] [address] [address] [address] Deepika Terrell EGFR-NON AF RUSSIAN 38 mL/min/1.73m2 Critically low >=[address] [facility] Comment on above: Performed By: #### B MP #### [facility] [address] [address] [address] Deepika Terrell Glucose [Mass/Vol] 75 mg/dL Normal 74-106 [facility] Comment on above: Performed By: #### B MP #### [facility] [address] [address] [address] Deepika Terrell Potassium [Moles/Vol] 4.9 mmol/L Normal 3.5-5.1 [facility] Comment on above: Performed By: #### B MP #### [facility] [address] [address] [address] Deepika Terrell Sodium [Moles/Vol] 138 mmol/L Normal 136-145 [facility] Comment on above: Performed By: #### B MP #### [facility] [address] [address] [address] Deepika Terrell Urea nitrogen [Mass/Vol] 45.0 mg/dL Critically high 7.0-18.0 [facility] Comment on above: Performed By: #### B MP #### [facility] [address] [place] [address] Dr. Deepika Terrell Urea nitrogen/Creatinin e [Mass ratio] 26.5 mg/mg Normal [facility] Comment on above: Performed By: #### B MP #### [facility] [address] [address] [address] Deepika Terrell PROF CHEM 8 (BAS METB)on Anion gap [Moles/Vol] 14.2 mmol/L Normal [facility] Comment on above: Performed By: #### B MP #### [facility] [address] [address] [address] Deepika Terrell Calcium [Mass/Vol] 9.4 mg/dL Normal 8.5-10.1 [facility] Comment on above: Performed By: #### B MP #### [facility] [address] [address] [address] Deepika Terrell Chloride [Moles/Vol] 106 mmol/L Normal 98-[address] [facility] Comment on above: Performed By: #### B MP #### [facility] [address] [address] [address] Deepika Terrell CO2 [Moles/Vol] 25.1 mmol/L Normal 21.0-32.0 [facility] Comment on above: Performed By: #### B MP #### [facility] [address] [address] [address] Deepika Terrell Creatinine [Mass/Vol] 1.72 mg/dL Critically high 0.70-1.30 [facility] Comment on above: Performed By: #### B MP #### [facility] [address] [address] [address] Deepika Terrell EGFR-AF RUSSIAN 46 mL/min/1.73m2 Critically low >=60 [facility] Comment on above: Performed By: #### B MP #### [facility] [address] [address] [address] Deepika Terrell EGFR-NON AF RUSSIAN 38 mL/min/1.73m2 Critically low >=60 [facility] Comment on above: Performed By: #### B MP #### [facility] [address] [address] [address] Deepika Terrell Glucose [Mass/Vol] 51 mg/dL Critically low 74-106 [facility] Comment on above: Performed By: #### B MP #### [facility] [address] [address] [address] Deepika Terrell Potassium [Moles/Vol] 6.2 mmol/L Critically high 3.5-5.1 [facility] Comment on above: Performed By: #### B MP #### [facility] [address] [address] [address] Deepika Terrell Sodium [Moles/Vol] 138 mmol/L Normal 136-145 [facility] Comment on above: Performed By: #### B MP #### [facility] [address] [address] [address] Deepika Terrell Urea nitrogen [Mass/Vol] 42.0 mg/dL Critically high 7.0-18.0 [facility] Comment on above: Performed By: #### B MP #### [facility] [address] [address] [address] Deepika Terrell Urea nitrogen/Creatinin e [Mass ratio] 24.4 mg/mg Normal [facility] Comment on above: Performed By: #### B MP #### [facility] [address] [address] [address] Deepika Terrell MRI LSPINE WO CONon [...] KURT DON Date: 2021-09-14 14:[address] [facility] XR LSPINE MIN 4 VIEWSon XR LSPINE [...] KURT DON Date: 2021-09-10 20:[address] [facility] GLYCOHEMOGLOBIN A1Con 2021 ADA RECOMMENDATION SEE BELOW Normal [facility] Comment on above: Result Comment: ADA RECOMMENDED LIMIT 4.0 - 6.0 ADA THERAPEUTIC TARGET < 7.0 ACTION SUGGESTED > 7.0 Performed By: #### C PEPT #### [facility] [address] [place] [address] Dr. Deepika Terrell Glucose [Mass/Vol] 131 mg/dL Normal [facility] Comment on above: Performed By: #### C PEPT #### [facility] [address] [address] [address] Deepika Terrell HbA1c (Bld) [Mass fraction] 6.2 % Normal 4.5-6.2 [facility] Comment on above: Performed By: #### C PEPT #### [facility] [address] [place] [address] Dr. Deepika Terrell Blood Urea Nitrogenon 2020 Urea nitrogen [Mass/Vol] 23 mg/dL Normal 9- [facility] Comment on above: Performed By: #### B UN, CREAT #### [address] abdomen pelvis w conon CT abdomen pelvis w [facility] [place] [address] [place] [address] CT Scan Report Signed Patient: Liliana Natarajan MR#: [id number] 47 : 1935 Acct:[id number] Age/Sex: 85 / M ADM Date: 10/26/20 Loc: Room: Type: [facility] Attending Dr: Srinivasan Beaulieu MD Ordering Provider: [...] Eugene Cummings M.D.10/26/2020 4:54 PM Dictation Location: [place] [address] Transcribed By: [facility] 10/26/20 [id number] Dictated By: Eugene Cummings II, MD 10/26/20 6622 Signed By: 10/26/20 1654 [facility] Creatinineon 10-26-2020 Creatinine [Mass/Vol] 1.44 mg/dL High 0.64-1.27 [facility] Comment on above: Performed By: #### B UN, CREAT #### [facility] [address] Creatinine Clr Calc Pharmacy 39.48 [facility] Comment on above: Result Comment: PERF ORMED BY: [facility] [address] [place] [address] PATHOLOGIST RETENTION MANAGER ANTHONY WEAVER M.D. Performed By: #### B UN, CREAT #### [facility] [address] [place] [address] Estimated GFR ( Zahida 56 [facility] Comment on above: Result Comment: GFR estimated reference range: According to KDOQI guidelines, <60 ml/min/1.73m2 is sufficient to diagnose a patient with chronic kidney disease. Performed By: #### B UN, CREAT #### [facility] [address] [place] [address] Estimated GFR (Non- Am 47 [facility] Comment on above: Performed By: #### B UN, CREAT #### [facility] [address] [place] [address] Glucose Poct Glucometerson 0 10-26-2020 Glucose [Mass/Vol] 100 mg/dL [facility] Comment on above: Result Comment: [facility] Glucose Reference Range is dependent on time and content of last meal. Glucose of more than 200 mg/dL in a nonstressed, ambulatory subject supports the diagnosis of Diabetes Mellitus. PERFORMED BY: [facility] [address] [place] [address] PATHOLOGIST RETENTION MANAGER ANTHONY WEAVER M.D. Performed By: #### G MATTLS #### Point of Care testing , [facility] 10-26-2020 L ------- Specimen: [id number] Received: 10/26/20 Status: SOLEDAD Rosemary Num: [id number] Spec Type: Surgical Subm Dr: Srinivasan Beaulieu MD Tissues: A Colon Biopsy (LEFT COLON BX) Procedures: HE Stain/2, Gross/Micro L4 Patient Age/Sex Location Account Attending Physician Liliana Natarajan/Raissa [id number] Srinivasan Beaulieu MD SPEC NUM: [id number] RECD: 10/26/20 STATUS: SOLEDAD WITTJames NUM: [id number] AALIYAH: 10/26/20- SUBM DR: Srinivasan Beaulieu MD ENTERED: 10/26/20-[address]: SPEC TYPE: Surgical DEPT: S ENTERED BY: [id number] RECV BY: [id number] ORDERED: HE Stain/2, Gross/Micro L4 ORDERED: HE [...] microscopic findings support the above pathologic diagnosis. [address] Specimen: [id number] Received: 10/26/20 Status: SOLEDAD Rosemary Num: [id number] Spec Type: Surgical Subm Dr: Srinivasan Beaulieu MD Tissues: A Colon Biopsy (LEFT COLON BX) Procedures: HE Stain/2, Gross/Micro L4 Patient: Liliana Natarajan [id number] (Continued) Signed (signature on file) Anthony Weaver MD 10/27/20 1718 [facility] History and Physicalon 01-15 HIM IP Note OR Health/Safety Job Titles [facility] Surgical Pathologyon 017 Surgical Pathology (NOTE)[id number] Y LABORATORIESCONSULTING PATHOLOGISTS CORPORATIONANATOMIC NATAEPWAP[address] [place], [place] [id number] Fax: SURGICAL PATHOLOGY CONSULTATIONPatient Name: Amy NATARAJAN Rec: [id number] Number: [id number]: 01/15/2017Received: 01/15/2017Reported: 01/16/2017 08:36-- Diagnosis --INTRAOCULAR LENS: GROSS ONLY.Kan Allred M.D.Electronically Signed Out tb04/16/11Clinical InformationPre-op Diagnosis: DISLOCATED IOL LEFT EYE Operative Findings: IOL GROSS ONLYOperation Performed: VITRECTOMY 25 GAUGE LENSECTOMY, KENALOGINJECTIONSource of Specimen1: IOL - GROSS ONLYGross Description LILIANA NATARAJAN IOL GROSS ONLY 0.6 cm long x < 0.1 cm in diameterclear translucent lens with two tags. Gross only. [facility] Vital Signs Date Time Vital Sign Value Performing Clinician Facility 11-26-2022 09:45-0400 Body height 172.72 cm Chevy Robins Other [facility] Other 11-26-2022 09:45-0400 Body mass index (BMI) [Ratio] 24.63 kg/m2 Chevy Robins Other [facility] Other 11-26-2022 09:45-0400 Body weight 73.48 kg Chevy Julienne Other [facility] Other 11-26-2022 09:45-0400 Diastolic blood pressure 61 mm[Hg] Chevy Carlos Ay Other [facility] Other 11-26-2022 09:45-0400 Systolic blood pressure 135 mm[Hg] Chevy Straussy Other [facility] Other 12-27-2021 14:00-0400 Body height 172.72 cm Chevy Conniewilmaotilia Other [facility] Other 12-27-2021 14:00-0400 Body mass index (BMI) [Ratio] 28.43 kg/m2 Chevy Robins Other [facility] Other 12-27-2021 14:00-0400 Body weight 84.82 kg Chevy Julienne Other [facility] Other 12-27-2021 14:00-0400 Diastolic blood pressure 75 mm[Hg] Chevy Conniewilmay Other [facility] Other 12-27-2021 14:00-0400 Systolic blood pressure 171 mm[Hg] Chevy Robins Other [facility] Other 11-27-2021 09:51-0400 Diastolic blood pressure 71 mm[Hg] Darien REYNOLDS [facility] 11-27-2021 09:51-0400 Mean blood pressure 97 mm[Hg] Darien REYNOLDS [facility] [place] 11-27-2021 09:51-0400 Respiratory rate 49 /min Darien Your.MD [facility] 11-27-2021 09:51-0400 Systolic blood pressure 150 mm[Hg] Darien COOK [facility] 11-27-2021 09:39-0400 Blood Pressure Location Darien Your.MD [facility] 11-27-2021 09:39-0400 Diastolic blood pressure 67 mm[Hg] Darien Your.MD [facility] 11-27-2021 09:39-0400 Heart rate 45 /min Darien Your.MD [facility] 11-27-2021 09:39-0400 Systolic blood pressure 168 mm[Hg] Darien Your.MD [facility] 12-27-2020 14:00-0400 Body height 172.72 cm Chevy Robins Other [facility] Other 12-27-2020 14:00-0400 Body mass index (BMI) [Ratio] 28.13 kg/m2 Chevy Robins Other [facility] Other 12-27-2020 14:00-0400 Body weight 83.92 kg Chevy Robins Other [facility] Other Encounters Encounter Date Encounter Type Care Provider Facility Start: 11-11-2023 ambulatory Darien REYNOLDS Facility :[facility] Start: 07-07-2023 End: 07-07-2023 ambulatory [facility] Start: 06-16-2023 End: 06-17-2023 ambulatory Darien REYNOLDS Facility:[facility] Start: 06-16-2023 End: 06-16-2023 Patient encounter procedure Darien Caitie REYNOLDS [facility] Start: 12-13-2022 End: 12-13-2022 ambulatory [facility] Start: 11-26-2022 End: 11-26-2022 ambulatory Chevy Robins Other [facility] Other Start: 11-26-2022 Patient encounter procedure Chevy [...] 12-27-2021 End: 12-27-2021 ambulatory Chevy Robins Other [facility] [employer] [facility] Other Start: 12-27-2021 Patient encounter procedure Chevy Robins [facility] Start: 12-26-2021 End: 12-27-[address] ERIN BERG . Facility:[facility] Start: 11-27-2021 End: 11-27-2021 Patient encounter procedure Darien REYNOLDS [facility] Start: 10-18-2021 End: 10-26-[address] DOCTOR [...] Start: 01-21-2017 End: 01-22-2017 Ambulatory DEFAULT PHYSICIAN Facility:[facility] Start: 01-17-2017 End: 01-18-2017 Ambulatory DEFAULT PHYSICIAN Facility:[facility] Start: 01-15-2017 End: 01-15-2017 Ambulatory [facility] Procedures Date Procedure Procedure Detail Performing Clinician Start: 07-07-2023 Follow-up visit Follow-up ARNEL KELLOGG Start: 02-05-[address] CHRIS BERG . Comment on above: Performed By: #### C PEPT #### [facility] [address] [address] [address] Deepika Terrell Start: 12-04-2020 Transurethral water [...] vaccine recombinant Darien REYNOLDS [facility] 02-24-2023 zoster vaccine recombinant Darien REYNOLDS [facility] 01-27-2023 influenza virus vaccine, unspecified formulation Darien Your.MD [facility] 06-02-2022 influenza virus vaccine, unspecified formulation Darien Your.MD [facility] 06-02-2022 pneumococcal conjuga te vaccine, 13 valent Darien REYNOLDS [facility] 01-21-2022 influenza virus vaccine, unspecified formulation Darien Your.MD [facility] 09-27-2021 SARS-CoV-2 (COVID-19 ) mRNA-1273 vaccine Darien Your.MD [facility] 04-24-2021 SARS-CoV-2 (COVID-19 ) mRNA BNT-162b2 vax Darien REYNOLDS [facility] 01-25-2021 influenza virus vaccine, unspecified formulation Darien REYNOLDS [facility] 06-06-2020 SARS-CoV-2 (COVID-19 ) mRNA-1273 vaccine Darien Your.MD [facility] 05-09-2020 SARS-CoV-2 (COVID-19 ) mRNA-1273 vaccine Darien Your.MD [facility] 04-11-2020 SARS-CoV-2 (COVID-19 ) mRNA-1273 vaccine Darien Your.MD [facility] 01-14-2020 influenza virus vaccine, unspecified formulation Darien REYNOLDS [facility] 01-06-2020 influenza virus vaccine, unspecified formulation Darien REYNOLDS [facility] 01-28-2018 influenza virus vaccine, unspecified formulation Darien REYNOLDS [facility] 02-05-2017 pneumococcal conjuga te vaccine, 13 valent Darien REYNOLDS [facility] 01-27-2017 influenza virus vaccine, unspecified formulation Darien REYNOLDS [facility] 01-13-2017 influenza virus vaccine, unspecified formulation Darien REYNOLDS [facility] 01-06-2017 influenza virus vaccine, unspecified formulation Darien REYNOLDS [facility] 01-03-2016 influenza virus vaccine, unspecified formulation Darien REYNOLDS [facility] 01-06-2015 influenza virus vaccine, unspecified formulation Darien REYNOLDS [facility] 02-03-2014 influenza virus vaccine, unspecified formulation Darien REYNOLDS [facility] 01-25-2009 influenza, whole Darien BASSO K [facility] Payers Date Payer Category Payer Unknown [id number] 2017 Medicare [id number] 1959 Medicare [id number] 2.1 [id number] 1959 Self-pay 1959 Unknown [id number] 1935 Unknown [id number] 2.16.84 0.1.622611.3.579.2.593 1935 Unknown [id number] 2.16.84 0.1.339554.3.579.2.593 1935 Unknown [id number] 2.16.84 0.1.794307.3.579.2.593 1935 Unknown [id number] 2.16.84 0.1.225824.3.579.2.593 1935 Unknown [id number] 2.16.84 0.1.333079.3.579.2.593 1935 Unknown [id number] 2.16.84 0.1.680395.3.579.2.593 1935 Unknown [id number] 2.16.84 0.1.466984.3.579.2.593 1935 Unknown [id number] 2.16.84 0.1.883375.3.579.2.593 1935 Unknown [id number] 2.16.84 0.1.783677.3.579.2.593 1935 Unknown [id number] 2.16.84 0.1.202497.3.579.2.593 1935 Unknown [id number] 2.16.84 0.1.140059.3.579.2.593 1935 Unknown [id number] 2.16.84 0.1.010226.3.579.2.593 1935 Unknown [id number] 2.16.84 0.1.977612.3.579.2.593 1935 Unknown [id number] 2.16.84 0.1.734175.3.579.2.593 1935 Unknown [id number] 2.16.84 0.1.063374.3.579.2.593 1935 Unknown [id number] 2.16.84 0.1.294970.3.579.2.593 1935 Unknown [id number] 2.16.8 40.1.907088.3.579.2.727 1935 Unknown [id number] 2.16.8 40.1.926621.3.579.2.727 1935 Unknown [id number] 2.16.8 40.1.659613.3.579.2.727 Unknown Unknown [id number] 2.16.8 40.1.082820.19 Unknown [id number] 2.16.84 0.1.225246.3.579.2.593 Unknown [id number] 2.16.84 0.1.240264.3.579.2.593 Social History Date Type Detail Facility Sex Assigned At [facility] Other Start: 11-27-2021 End: 06-11-2022 Tobacco smoking status Never smoked tobacco (finding) [facility] Tobacco smoking status Never [facility] Functional Status Date Assessment Result Facility 11-27-2021 Functional Status N/A [facility] Clinical Notes 12-27-2020 to 07-07-2023 Note Date [...] 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 [facility] 12-13-2022 Note Patient here for 6 m o follow up hypertension and bradycardia. Says Dr. Berg stopped his furosemide about 1 month ago. Denies increased in LE edema and SOB. Denies chest pain and lightheadedness. Doing well. [facility] 12-13-2022 Note Cardiology Follow Up Progress Note [...] report -Sinus Bradycardia (more content not included)... [facility] 11-26-2022 Evaluation note Encounter Date Diagnosis Assessment Notes Nov, Microscopic colitis (ICD-10 - K52.89) Patient to use OTC probiotic and OTC Fiber supplement to help normalize the stools. Patient to finish remaining 2 weeks of medication and call if diarrhea returns after stopping the medication. RTO in 1 year. [facility] Other 09-22-2022 Evaluation note* Encounter Date Diagnosis Assessment Notes Treatment Notes Treatment Clinical Notes Dec, Microscopic colitis (ICD-10 - K52.89) REASSURANCE PT ADVISED TO ADD FIBER SUPPLEMENT TO DIET F/U PRN [facility] Other 08-23-2022 Hospital Discharge instructions Patient Education [...] urethra. Follow these instructions at home: Take [id number] and prescription medicines only as told by [...] 03/24/2006 Document Revised: 02/16/2019 Document Reviewed: 04/28/2017 Monitoring Division Patient Education [employer]. Follow Up Care 05/30/2021 14:56:10 With:Darien REYNOLDS MD, URL Address: [facility] [address] [place], [place] [address]- When:6 months [facility] 09-22-2021 Evaluation note* Encounter Date Diagnosis Assessment Notes Treatment Notes Treatment Clinical Notes Dec, Microscopic colitis (ICD-10 - K52.89) Colitis home care material was printed will taper the budesonide at this time patient to finish the 9 mg taper then move to the 6 mg taper. [facility] Other Evaluation + Plan note Future Appointments Appointment Date:06/11/2022 09:30:00 AM Scheduled Provider:Darien REYNOLDS MD Location:[facility] Appointment Type:URO Office Visit [facility] History general Narrative - Reported* Type [...] 1998 Hospitalization History SEE ABOVE SURGICAL HX [employer] Other History general Narrative - Reported* Type [...] ABOVE SURGICAL HX Hospitalization History A1c down- [facility] 05/2022 [employer] Other Hospital course Narrative No data available for this section [facility] [employer] [facility] Discharge instructions No data available for this section [facility] [employer] Progress note No data available for this section [facility] [employer] Summary Purpose Family History No Family History [...] section and content) DATE CREATED AUTHOR 09/30/2017 [facility] DATE CREATED AUTHOR AUTHOR'S ORGANIZ ATION 09/30/2017 [facility] DATE CREATED AUTHOR AUTHOR'S ORGANIZ ATION 10/30/2020 [facility] DATE CREATED AUTHOR AUTHOR'S ORGANIZ ATION 08/19/2022 [facility] DATE CREATED AUTHOR AUTHOR'S ORGANIZ ATION 08/10/2023 [facility] DATE CREATED AUTHOR AUTHOR'S ORGANJANIYA ATION 09/10/2023 [facility] REASON FOR VISIT (unrecogniz ed section and [...] content) Personnel Name: Erin Berg MD Address: [address] [place] [address] Personnel Name: Erin Berg MD Address: Address: [address] [place] [address] FOR RECORDS PERTAINING TO PATIENTS WHO ARE [...] BE BASED ON THE PRIMARY CLINICAL RECORDS. [employer] provides no warranty or guarantee of the accuracy or completeness of information in this document.
--- NOTE | 2023-11-06 07:35 | CT_ITS ---
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 Dose reduction techniques were achieved by using automated exposure control and/or adjustment of mA and/or kV according to patient size and/or use of iterative reconstruction technique. FINDINGS: The great vessels enhance normally. No filling defects are identified within the carotid arteries. There is moderate stenosis at the origin of the right and mild at origin of the left internal carotid arteries. No abnormality of visualized [place] is noted. Mild segmental stenosis at origin of the right vertebral artery is noted. Otherwise, no abnormality of the vertebral and basilar arteries is noted. No mass, mass effect or midline shift or hemorrhage in the visualized portion of brain parenchyma is noted. Mucosal thickening within the right maxillary sinus is noted. No significant soft tissue abnormality within the neck is noted. The visualized portion of the lungs is unremarkable. No suspicious bone lesion is noted. Multilevel degenerative changes of cervical spine. CT/CT angio neck IMPRESSION: Moderate stenosis at origin right internal carotid artery. Mild stenosis at origin of the left internal carotid artery. Mild segmental stenosis at origin of the right vertebral artery. Otherwise, no significant abnormality. CAROTID STENOSIS REFERENCE: MILD = <50% stenosis. MODERATE = 50-69% stenosis. SEVERE = >70% stenosis. Electronically authenticated by: SAM TA Date: 11/06/2023 10:28
[2023-11-06 07:51] LABS: Estimated GFR (African America 54 (>=60); Estimated GFR (Non-African Ame 44 (>=60)
== END 2023-11-06 07:28 | disposition home or self-care (01) ==
LOC: LAB 07:28
PROVIDERS: PCP Family Medicine; Visit Provider Family Medicine
DX: Z01.812 Encounter for preprocedural laboratory examination (principal); I65.29 Occlusion and stenosis of unspecified carotid artery
CPT/HCPCS: 36415; 70498; 82565; Q9966

== ENCOUNTER 2023-12-24 10:01 | Outpatient (RCR) | payer MEDICARE, OTHER, SELFPAY | END 2024-01-16 15:42 | disposition home or self-care (01) | LOC: PT 10:01 | PROVIDERS: PCP Family Medicine; Visit Provider Family Medicine | DX: M79.18 Myalgia, other site (principal) | CPT/HCPCS: 97010; 97110; 97140; 97161; G0283 ==

== ENCOUNTER 2023-12-28 16:46 | Observation (INO) | payer MEDICARE, OTHER, SELFPAY ==
[2023-12-28 16:50] VITALS: BP 148/64; PULSE 93; TEMP 36.9; O2SAT 90; BMI 26.6
--- OUTSIDE RECORDS SUMMARY | 2023-12-28 16:52 | XMS_ITS | CCD ---
Author Organization [facility] CliniSynd Care Team Providers Care Leather Heel Breaster Name Role Phone CHET NESBITT Unavailable Unavailable [...] Medication Allergies] Propensity to adverse reactions (disorder) [facility] Repository (1 source) Adhesive agent; Translations: [ADHESIVE] Propensity to adverse reactions to drug (disorder) 7 [facility] Repository Medications Current Medications Medication Drug [...] Daily, # 30 tab(s), Refills(s) 11, Pharmacy: [id number], 172, cm, 06/11/22 9:50:00 EST, [...] 11-27-2021 take 1 capsule by mo [facility] twice daily tamsulosin 0.4 mg Cap 0.4 mg = 1 cap(s), Oral, BID Start Date: 11/27/21 Status: Ordered tiZANidine 4 mg oral tablet (4 sources) Central alpha-2 Adrenergic Agonist Start: 11-27-2021 take 1 tablet by mouth every eight hours tiZANidine 4 mg Tab 4 mg = 1 tab(s), Oral, q8hr Start Date: 11/27/21 Status: Ordered take 1 tablet by [facility] every twenty-four hours tiZANidine HCl 4 MG 1 tablet as needed Orally daily Active vitamin a 21030 unt oral capsule (2 sources) Vitamin A [...] 3 Chronic Other aftercare (1 source) Other correction (current) drug therapy; Translations: [[facility] CURRENT DRUG THERAPY] Onset: 3 Episodic Other [...] Range Facility Office Visiton 07-07-2023 Follow-up visit [id number] Caprice Natarajan E 1935 M Date Provider Department Center 07/07/2023 [id number] ACOSTA Family History Problem Relation Age of Onset Diabetes Father Hypertension Father Family Status - Relation Status Age at Father Level of Service:[address] [place] OFFICE/OUTPATIENT ESTABLISHED LOW MDM 20 MIN Reason for Visit and Comments: Follow-up [942219] - 6 month follow up Normal [facility] Office Visiton 12-13-2022 Follow-up visit [id number] Caprice Natarajan E 1935 M Date Provider Department Center 12/13/2022 [id number] ACOSTA Family History Problem Relation Age of Onset Diabetes Father Hypertension Father Family Status - Relation Status Age at Father Level of Service:04623 [place] OFFICE/OUTPATIENT ESTABLISHED LOW MDM 20-29 MIN Normal [facility] STOOL CULTUREon 08-18-2022 Campylobacter Culture Final report Normal [facility] Comment on above: Performed By: #### C XSTOOL #### [facility] [address] [place] [address] Dr. Deepika Terrell E coli Shiga Toxin EIA Negative Normal Negative [facility] Comment on above: Performed By: #### C XSTOOL #### [facility] [address] [address] [address] Deepika Terrell Result 1 Comment Normal [facility] Comment on above: Result Comment: No S almonella or Shigella recovered. Performed By: #### C XSTOOL #### [facility] [address] [address] [address] Deepika Terrell Result Comment: No C ampylobacter species isolated. Salmonella/Shigell a Screen Final report Normal [facility] Comment on above: Performed By: #### C XSTOOL #### [facility] [address] [address] [address] Deepika Garcia DIFF PCRon 08-13-2022 C. DIFFICILE PCR Negative Normal NEGATIVE [facility] Comment on above: Performed By: #### B MP #### [facility] [address] [place], [place] [address] Dr. Deepika Terrell Consultation Noteon 08-14-19 23 Consultation Note [id number]:127 Normal [facility] OCC BLD IMMUNO SCREENon OCCULT BLOOD Negative Normal NEGATIVE [facility] Comment on above: Performed By: #### B MP #### [facility] [address] [address] [address] Deepika Terrell RAD - MISCon 08-13-2022 RAD - MISC [id number]:127 Normal [facility] Physician Referralon 023 Physician Referral [id number]:127 Normal [facility] NM HEPATOBILIARY SCAN W EFon 08-09-2022 [...] DAVID ESPINAL Date: 2022-08-09 10:42 Normal [facility] US SINGLE QUAD RT UPPERon US [...] KURT JOE Date: 2022-08-08 07:42 Normal [facility] GLYCOHEMOGLOBIN A1Con 2022 ADA RECOMMENDATION SEE BELOW Normal [facility] Comment on above: Result Comment: ADA RECOMMENDED LIMIT 4.0 - 6.0 ADA THERAPEUTIC TARGET < 7.0 ACTION SUGGESTED > 7.0 Performed By: #### I NSULT #### [facility] [address] [place] [address] Dr. Deepika Terrell Glucose [Mass/Vol] 117 mg/dL Normal [facility] Comment on above: Performed By: #### I NSULT #### [facility] [address] [place] [address] Dr. Deepika Terrell HbA1c (Bld) [Mass fraction] 5.7 % Normal 4.5-6.2 [facility] Comment on above: Performed By: #### I NSULT #### [facility] [address] [place] [address] ABD/PELVIS WO CONon [...] MARK LEE Date: 2022-07-20 07:40 Normal [facility] CBC AUTO DIFFon 07-19-2022 BASO # 0.0 103/ul Normal 0.0-0.1 [facility] Comment on above: Performed By: #### C BC #### [facility] [address] [address] [address] Deepika Terrell Basophils/100 WBC (Bld) 0.3 % Normal 0.2-2.0 [facility] Comment on above: Performed By: #### C BC #### [facility] [address] [address] [address] Deepika Terrell EO # 0.3 103/ul Normal 0.0-0.7 [facility] Comment on above: Performed By: #### C BC #### [facility] [address] [address] [address] Deepika Terrell Eosinophils/100 WBC (Bld) 2.4 % Normal 0.9-7.0 [facility] Comment on above: Performed By: #### C BC #### [facility] [address] [address] [address] Deepika Terrell Erythrocyte distribution width (RBC) [Ratio] 14.8 % Normal 11.0-15.0 [facility] Comment on above: Performed By: #### C BC #### [facility] [address] [address] [address] Deepika Terrell Hematocrit (Bld) [Volume fraction] 33.8 % Critically low 42.0-54.0 [facility] Comment on above: Performed By: #### C BC #### [facility] [address] [address] [address] Deepika Terrell Hemoglobin (Bld) [Mass/Vol] 11.0 g/dL Critically low 14.0-18.0 [facility] Comment on above: Performed By: #### C BC #### [facility] [address] [place] [address] Dr. Deepika Terrell IG # 0.08 10e3/ul Critically high 0.00-0.03 [facility] Comment on above: Performed By: #### C BC #### [facility] [address] [place] [address] Dr. Deepika Terrell IG % 0.7 % Critically high 0.0-0.5 [facility] Comment on above: Performed By: #### C BC #### [facility] [address] [address] [address] Deepika Terrell LYMPH # 3.5 103/ul Normal 1.2-3.8 [facility] Comment on above: Performed By: #### C BC #### [facility] [address] [place] [address] Dr. Deepika Terrell Lymphocytes/100 WBC (Bld) 29.2 % Normal 20.5-60.0 [facility] Comment on above: Performed By: #### C BC #### [facility] [address] [place] [address] Dr. Deepika Tererll MANUAL DIFF REQ NO Normal [facility] Comment on above: Performed By: #### C BC #### [facility] [address] [place] [address] Dr. Deepika Terrell MCH (RBC) [Entitic mass] 29.4 pg Normal 25.9-34.0 [facility] Comment on above: Performed By: #### C BC #### [facility] [address] [address] [address] Deepika Terrell MCHC (RBC) [Mass/Vol] 32.5 g/dL Normal 29.9-35.2 [facility] Comment on above: Performed By: #### C BC #### [facility] [address] [address] [address] Deepika Terrell MCV (RBC) [Entitic vol] 90.4 fL Normal 80.0-94.0 [facility] Comment on above: Performed By: #### C BC #### [facility] [address] [address] [address] Deepika Terrell MONO # 0.7 103/ul Normal 0.3-0.8 [facility] Comment on above: Performed By: #### C BC #### [facility] [address] [place] [address] Dr. Deepika Terrell Monocytes/100 WBC (Bld) 6.1 % Normal 1.7-12.0 [facility] Comment on above: Performed By: #### C BC #### [facility] [address] [address] [address] Deepika Terrell NEUT # 7.3 103/ul Critically high 1.4-6.5 [facility] Comment on above: Performed By: #### C BC #### [facility] [address] [address] [address] Deepika Terrell Neutrophils/100 WBC (Bld) 61.3 % Normal 43.0-75.0 [facility] Comment on above: Performed By: #### C BC #### [facility] [address] [address] [address] Deepika Terrell Platelet mean volume (Bld) [Entitic vol] 10.8 fL Normal 9.5-13.5 [facility] Comment on above: Performed By: #### C BC #### [facility] [address] [address] [address] Deepika Terrell PLT 372 103/ul Normal 150-450 [facility] Comment on above: Performed By: #### C BC #### [facility] [address] [address] [address] Deepika Terrell RBC 3.74 106/ul Critically low 4.70-6.10 [facility] Comment on above: Performed By: #### C BC #### [facility] [address] [address] [address] Deepika Terrell WBC 11.9 103/ul Critically high 4.0-11.0 [facility] Comment on above: Performed By: #### C BC #### [facility] [address] [place] [address] Dr. Deepika Terrell PROF CHEM 8 (BAS METB)on Anion gap [Moles/Vol] 16.1 mmol/L Normal [facility] Comment on above: Performed By: #### I NSULT #### [facility] [address] [place] [address] Dr. Deepika Terrell Calcium [Mass/Vol] 9.0 mg/dL Normal 8.5-10.1 [facility] Comment on above: Performed By: #### I NSULT #### [facility] [address] [place] [address] Dr. Deepika Terrell Chloride [Moles/Vol] 108 mmol/L Critically high 98-107 [facility] Comment on above: Performed By: #### I NSULT #### [facility] [address] [place] [address] Dr. Deepika Terrell CO2 [Moles/Vol] 19.3 mmol/L Critically low 21.0-32.0 [facility] Comment on above: Performed By: #### I NSULT #### [facility] [address] [place] [address] Dr. Deepika Terrell Creatinine [Mass/Vol] 2.68 mg/dL Critically high 0.70-1.30 [facility] Comment on above: Performed By: #### I NSULT #### [facility] [address] [place] [address] Dr. Deepika Terrell EGFR-AF NICARAGUAN 27 mL/min/1.73m2 Critically low >=60 [facility] Comment on above: Performed By: #### I NSULT #### [facility] [address] [address] [address] Deepika Terrell EGFR-NON AF NICARAGUAN 23 mL/min/1.73m2 Critically low >=60 [facility] Comment on above: Performed By: #### I NSULT #### [facility] [address] [address] [address] Deepika Terrell Glucose [Mass/Vol] 138 mg/dL Critically high 74-106 T [facility] Comment on above: Performed By: #### I NSULT #### [facility] [address] [address] [address] Deepika Terrell Potassium [Moles/Vol] 4.4 mmol/L Normal 3.5-5.1 [facility] Comment on above: Performed By: #### I NSULT #### [facility] [address] [place] [address] Dr. Deepika Terrell Sodium [Moles/Vol] 139 mmol/L Normal 136-145 [facility] Comment on above: Performed By: #### I NSULT #### [facility] [address] [address] [address] Deepika Terrell Urea nitrogen [Mass/Vol] 68.0 mg/dL Critically high 7.0-18.0 [facility] Comment on above: Performed By: #### I NSULT #### [facility] [address] [place] [address] Dr. Deepika Terrell Urea nitrogen/Creatinin e [Mass ratio] 25.4 mg/mg Normal [facility] Comment on above: Performed By: #### I NSULT #### [facility] [address] [address] [address] Deepika Terrell CA 19-9on 07-18-2022 CA 19-9 9 U/mL Normal 0-35 [facility] Comment on above: Result Comment: [facility] Electrochemiluminescence Immunoassay (ECLIA) . Values obtained with different assay methods or kits cannot be used interchangeably. Results cannot be interpreted as absolute evidence of the presence or absence of malignant disease. Performed By: #### B MP #### [facility] [address] [place] [address] Dr. Deepika Terrell CEAon 07-18-2022 CEA 3.1 ng/mL Normal 0.0-4.7 [facility] Comment on above: Result Comment: Nons mokers <3.9 Smokers <5.6 . [employer] Electrochemiluminescence Immunoassay (ECLIA) . Values obtained with different assay methods or kits cannot be used interchangeably. Results cannot be interpreted as absolute evidence of the presence or absence of malignant disease. Performed By: #### I NSULT #### [facility] [address] [place] [address] Dr. Deepika Terrell HELICOBACTER PYLORI AB IGMon 07-18-2022 H pylori, IgM Abs <9.0 Normal 0.0-8.9 [facility] Comment on above: Result Comment: Nega tive <9.0 Equivocal 9.0 - 11.0 Positive >11.0 . This test was developed and its performance characteristics determined by [employer]. It has not been cleared or approved by the Food and Drug Administration. Performed By: #### C PEPT #### [facility] [address] [place] [address] Dr. Deepika Terrell AMYLASEon 07-17-2022 Amylase [Catalytic activity/Vol] 38 U/L Normal 25-115 [facility] Comment on above: Performed By: #### C BC #### [facility] [address] [place] [address] Dr. Deepika Terrell CBC W MANUAL DIFFon 07-18-19 23 ATYPICAL LYMPH # Normal [facility] Comment on above: Performed By: #### E RUR #### [facility] [address] [place] [address] Dr. Deepika Terrell ATYPICAL LYMPH % Normal [facility] Comment on above: Performed By: #### E RUR #### [facility] [address] [place] [address] Dr. Deepika Terrell BAND # Normal 0.0-0.3 [facility] Comment on above: Performed By: #### E RUR #### [facility] [address] [place] [address] Dr. Deepika Terrell BAND % Normal 0-5 [facility] Comment on above: Performed By: #### E RUR #### [facility] [address] [address] [address] Deepika Terrell BASOM # 0.00 103/ul Normal 0.00-0.10 [facility] Comment on above: Performed By: #### E RUR #### [facility] [address] [place] [address] Dr. Deepika Terrell BASOM % 0.0 % Critically low 0.2-2.0 [facility] Comment on above: Performed By: #### E RUR #### [facility] [address] [place] [address] Dr. Deepika Terrell BLAST # Normal [facility] Comment on above: Performed By: #### E RUR #### [facility] [address] [place] [address] Dr. Deepika Terrell BLAST % Normal [facility] Comment on above: Performed By: #### E RUR #### [facility] [address] [place] [address] Dr. Deepika Terrell CORRECTED WBC Normal 4.0-11.0 [facility] Comment on above: Performed By: #### E RUR #### [facility] [address] [place] [address] Dr. Deepika Terrell EOS # 0.00 103/ul Normal 0.00-0.70 [facility] Comment on above: Performed By: #### E RUR #### [facility] [address] [place] [address] Dr. Deepika Terrell EOS% 0.0 % Critically low 0.9-7.0 [facility] Comment on above: Performed By: #### E RUR #### [facility] [address] [place] [address] Dr. Deepika Terrell HCT 35.9 % Critically low 42.0-54.0 [facility] Comment on above: Performed By: #### E RUR #### [facility] [address] [place] [address] Dr. Deepika Terrell HGB 11.6 g/dl Critically low 14.0-18.0 [facility] Comment on above: Performed By: #### E RUR #### [facility] [address] [place] [address] Dr. Deepika Terrell LYMPHM # 3.48 103/ul Normal 1.20-3.80 [facility] Comment on above: Performed By: #### E RUR #### [facility] [address] [place] [address] Dr. Deepika Terrell LYMPHM% 17.0 % Critically low 20.5-60.0 [facility] Comment on above: Performed By: #### E RUR #### [facility] [address] [place] [address] Dr. Deepika Terrell MCH 29.5 pg Normal 25.9-34.0 [facility] Comment on above: Performed By: #### E RUR #### [facility] [address] [place] [address] Dr. Deepika Terrell MCHC 32.3 g/dl Normal 29.9-35.2 [facility] Comment on above: Performed By: #### E RUR #### [facility] [address] [place] [address] Dr. Deepika Terrell MCV 91.3 fL Normal 80.0-94.0 [facility] Comment on above: Performed By: #### E RUR #### [facility] [address] [place] [address] Dr. Deepika Terrell METAMYELOCYTE # Normal [facility] Comment on above: Performed By: #### E RUR #### [facility] [address] [place] [address] Dr. Deepika Terrell METAMYELOCYTE % Normal [facility] Comment on above: Performed By: #### E RUR #### [facility] [address] [place] [address] Dr. Deepika Terrell MONOM# 1.23 103/ul Critically high 0.30-0.80 [facility] Comment on above: Performed By: #### E RUR #### [facility] [address] [place] [address] Dr. Deepika Terrell MONOM% 6.0 % Normal 1.7-12.0 [facility] Comment on above: Performed By: #### E RUR #### [facility] [address] [place] [address] Dr. Deepika Terrell MPV 10.8 fL Normal 9.5-13.5 [facility] Comment on above: Performed By: #### E RUR #### [facility] [address] [place] [address] Dr. Deepika Terrell MYELOCYTE # Normal [facility] Comment on above: Performed By: #### E RUR #### [facility] [address] [place] [address] Dr. Deepika Terrell MYELOCYTE % Normal [facility] Comment on above: Performed By: #### E RUR #### [facility] [address] [place] [address] Dr. Deepika Terrell NRBC Normal [facility] Comment on above: Performed By: #### E RUR #### [facility] [address] [place] [address] Dr. Deepika Terrell PLT 423 103/ul Normal 150-450 [facility] Comment on above: Performed By: #### E RUR #### [facility] [address] [place] [address] Dr. Deepika Terrell RBC 3.93 106/ul Critically low 4.70-6.10 [facility] Comment on above: Performed By: #### E RUR #### [facility] [address] [place] [address] Dr. Deepika Terrell RDW 14.7 % Normal 11.0-15.0 [facility] Comment on above: Performed By: #### E RUR #### [facility] [address] [place] [address] Dr. Deepika Terrell SEG # 15.79 103/ul Critically high 1.40-6.50 [facility] Comment on above: Performed By: #### E RUR #### [facility] [address] [place] [address] Dr. Deepika Terrell SEG % 77.0 % Critically high 43.0-75.0 [facility] Comment on above: Performed By: #### E RUR #### [facility] [address] [address] [address] Deepika Terrell WBC 20.5 103/ul Critically high 4.0-11.0 [facility] Comment on above: Performed By: #### E RUR #### [facility] [address] [address] [address] Deepika Terrell FREE THYROXINE INDEX T7on FTI 1.95 Normal 1.30-4.50 [facility] Comment on above: Performed By: #### C BC #### [facility] [address] [place] [address] Dr. Deepika Terrell T3U 39.0 % Normal 33.0-40.0 [facility] Comment on above: Performed By: #### C BC #### [facility] [address] [place] [address] Dr. Deepika Terrell T4 [Mass/Vol] 5.00 ug/dL Normal 4.50-12.10 [facility] Comment on above: Performed By: #### C BC #### [facility] [address] [place] [address] Dr. Deepika Terrell LIPASEon 07-17-2022 Lipase [Catalytic activity/Vol] 126.0 U/L Normal 73.0-393.0 [facility] Comment on above: Performed By: #### C BC #### [facility] [address] [place] [address] Dr. Deepika Terrell LIVER PROFILEon 07-17-2022 Albumin [Mass/Vol] 3.7 g/dL Normal 3.4-5.0 [facility] Comment on above: Performed By: #### C BC #### [facility] [address] [place] [address] Dr. Deepika Terrlel Albumin/Globulin [Mass ratio] 1.0 {ratio} Normal [facility] Comment on above: Performed By: #### C BC #### [facility] [address] [place] [address] Dr. Deepika Terrell ALP [Catalytic activity/Vol] 82 U/L Normal 46-116 [facility] Comment on above: Performed By: #### C BC #### [facility] [address] [place] [address] Dr. Deepika Terrell ALT [Catalytic activity/Vol] 33 U/L Normal 16-63 [facility] Comment on above: Performed By: #### C BC #### [facility] [address] [place] [address] Dr. Deepika Terrell AST [Catalytic activity/Vol] 15 U/L Normal 15-37 [facility] Comment on above: Performed By: #### C BC #### [facility] [address] [place] [address] Dr. Deepika Terrell BILI, CONJUGATED 0.1 mg/dL Normal 0.0-0.2 [facility] Comment on above: Performed By: #### C BC #### [facility] [address] [place] [address] Dr. Deepika Terrell Bilirubin [Mass/Vol] 0.2 mg/dL Normal 0.2-1.0 [facility] Comment on above: Performed By: #### C BC #### [facility] [address] [place] [address] Dr. Deepika Terrell Globulin (S) [Mass/Vol] 3.6 g/dL Normal [facility] Comment on above: Performed By: #### C BC #### [facility] [address] [place] [address] Dr. Deepika Terrell Protein [Mass/Vol] 7.3 g/dL Normal 6.4-8.2 [facility] Comment on above: Performed By: #### C BC #### [facility] [address] [place] [address] Dr. Deepika Terrell PERIPHERAL SMEARon 3 Pathologist Cyto stain Nom (Cvx/Vag) [ID] DR. ANNIKA NIETO Normal [facility] Comment on above: Result Comment: revi ew of smear reveals n/n w/aniso. plts. normal. leukocytosis with neutrophili and absolute monocytosis. no atypical lymphs, immature blasts seen. these findings are suggestive of a reactive process. clinical correlation is recommend Performed By: #### P ERSMR #### [facility] [address] [place] [address] Dr. Deepika Terrell PROF CHEM 8 (BAS METB)on Anion gap [Moles/Vol] 19.0 mmol/L Normal [facility] Comment on above: Performed By: #### C BC #### [facility] [address] [place] [address] Dr. Deepika Terrell Calcium [Mass/Vol] 9.5 mg/dL Normal 8.5-10.1 [facility] [place] Comment on above: Performed By: #### C BC #### [facility] [address] [place] [address] Dr. Deepika Terrell Chloride [Moles/Vol] 112 mmol/L Critically high 98-107 [facility] Comment on above: Performed By: #### C BC #### [facility] [address] [place] [address] Dr. Deepika Terrell CO2 [Moles/Vol] 19.4 mmol/L Critically low 21.0-32.0 [facility] Comment on above: Performed By: #### C BC #### [facility] [address] [place] [address] Dr. Deepika Terrell Creatinine [Mass/Vol] 2.51 mg/dL Critically high 0.70-1.30 [facility] Comment on above: Performed By: #### C BC #### [facility] [address] [place] [address] Dr. Deepika Terrell EGFR-AF NICARAGUAN 30 mL/min/1.73m2 Critically low >=60 [facility] Comment on above: Performed By: #### C BC #### [facility] [address] [place] [address] Dr. Deepika Terrell EGFR-NON AF NICARAGUAN 24 mL/min/1.73m2 Critically low >=60 [facility] Comment on above: Performed By: #### C BC #### [facility] [address] [address] [address] Deepika Terrell Glucose [Mass/Vol] 159 mg/dL Critically high 74-106 [facility] Comment on above: Performed By: #### C BC #### [facility] [address] [address] [address] Deepika Terrell Potassium [Moles/Vol] 4.4 mmol/L Normal 3.5-5.1 [facility] Comment on above: Performed By: #### C BC #### [facility] [address] [address] [address] Deepika Terrell Sodium [Moles/Vol] 146 mmol/L Critically high 136-145 [facility] Comment on above: Performed By: #### C BC #### [facility] [address] [place] [address] Dr. Deepika Terrell Urea nitrogen [Mass/Vol] 67.0 mg/dL Critically high 7.0-18.0 [facility] Comment on above: Performed By: #### C BC #### [facility] [address] [address] [address] Deepika Terrell Urea nitrogen/Creatinin e [Mass ratio] 26.7 mg/mg Normal [facility] Comment on above: Performed By: #### C BC #### [facility] [address] [place] [address] Dr. Deepika Terrell TSHon 07-17-2022 TSH 0.884 uIU/mL Normal 0.358-3.740 [facility] Comment on above: Performed By: #### C BC #### [facility] [address] [place] [address] Dr. Deepika Terrell INSULIN FREE AND TOTALon Free Insulin 22 uU/mL Critically high [facility] Comment on above: Result Comment: Refe rence Range: Pubertal Children and Adults (fasting): 0 - 17 Performed By: #### I NSULT #### [facility] [address] [place] [address] Dr. Deepika Terrell Total Insulin 22 uU/mL Normal [facility] Comment on above: Result Comment: Non- [...] developed and its performance characteristics determined by [employer]. It has not been cleared or approved by the Food and Drug Administration. Performed By: #### I NSULT #### [facility] [address] [place] [address] Dr. Deepika Terrell C-PEPTIDE, SERUMon 3 C-Peptide, Serum 7.7 ng/mL Critically high 1.1-4.4 [facility] Comment on above: Result Comment: C-Pe ptide reference interval is for fasting patients. Performed By: #### C PEPT #### [facility] [address] [place] [address] Dr. Deepika Terrell OVA AND PARASITE EXAMINATION on 06-04-2022 Ova + Parasite Exam Final report Normal [facility] Comment on above: Result Comment: Thes e results were obtained using wet preparation(s) and trichrome stained smear. This test does not include testing for Cryptosporidium parvum, Cyclospora, or Microsporidia. Performed By: #### B MP #### [facility] [address] [place] [address] Dr. Deepika Terrell Result 1 Comment Normal [facility] Comment on above: Result Comment: No o va, cysts, or parasites seen. . One negative specimen does not rule out the possibility of a parasitic infection. Performed By: #### B MP #### [facility] [address] [place] [address] Dr. Deepika Terrell CBC AUTO DIFFon 06-02-2022 BASO # 0.0 103/ul Normal 0.0-0.1 [facility] Comment on above: Performed By: #### I NSULT #### [facility] [address] [place] [address] Dr. Deepika Terrell Basophils/100 WBC (Bld) 0.4 % Normal 0.2-2.0 [facility] Comment on above: Performed By: #### I NSULT #### [facility] [address] [place] [address] Dr. Deepika Terrell EO # 0.4 103/ul Normal 0.0-0.7 [facility] Comment on above: Performed By: #### I NSULT #### [facility] [address] [address] [address] Deepika Terrell Eosinophils/100 WBC (Bld) 3.3 % Normal 0.9-7.0 [facility] Comment on above: Performed By: #### I NSULT #### [facility] [address] [place] [address] Dr. Deepika Terrell Erythrocyte distribution width (RBC) [Ratio] 14.6 % Normal 11.0-15.0 [facility] Comment on above: Performed By: #### I NSULT #### [facility] [address] [place] [address] Dr. Deepika Terrell Hematocrit (Bld) [Volume fraction] 29.8 % Critically low 42.0-54.0 [facility] Comment on above: Performed By: #### I NSULT #### [facility] [address] [place] [address] Dr. Deepika Terrell Hemoglobin (Bld) [Mass/Vol] 9.8 g/dL Critically low 14.0-18.0 [facility] Comment on above: Performed By: #### I NSULT #### [facility] [address] [place] [address] Dr. Deepika Terrell IG # 0.05 10e3/ul Critically high 0.00-0.03 [facility] Comment on above: Performed By: #### I NSULT #### [facility] [address] [place] [address] Dr. Deepika Terrell IG % 0.5 % Normal 0.0-0.5 [facility] Comment on above: Performed By: #### I NSULT #### [facility] [address] [address] [address] Deepika Terrell LYMPH # 1.9 103/ul Normal 1.2-3.8 [facility] Comment on above: Performed By: #### I NSULT #### [facility] [address] [address] [address] Deepika Tererll Lymphocytes/100 WBC (Bld) 17.3 % Critically low 20.5-60.0 [facility] Comment on above: Performed By: #### I NSULT #### [facility] [address] [address] [address] Deepika Terrell MANUAL DIFF REQ NO Normal [facility] Comment on above: Performed By: #### I NSULT #### [facility] [address] [place] [address] Dr. Deepika Terrell MCH (RBC) [Entitic mass] 29.9 pg Normal 25.9-34.0 [facility] Comment on above: Performed By: #### I NSULT #### [facility] [address] [place] [address] Dr. Deepika Terrell MCHC (RBC) [Mass/Vol] 32.9 g/dL Normal 29.9-35.2 [facility] Comment on above: Performed By: #### I NSULT #### [facility] [address] [place] [address] Dr. Deepika Terrell MCV (RBC) [Entitic vol] 90.9 fL Normal 80.0-94.0 [facility] Comment on above: Performed By: #### I NSULT #### [facility] [address] [place] [address] Dr. Deepika Terrell MONO # 0.8 103/ul Normal 0.3-0.8 [facility] Comment on above: Performed By: #### I NSULT #### [facility] [address] [place] [address] Dr. Deepika Terrell Monocytes/100 WBC (Bld) 7.4 % Normal 1.7-12.0 [facility] Comment on above: Performed By: #### I NSULT #### [facility] [address] [address] [address] Deepika Terrell NEUT # 7.9 103/ul Critically high 1.4-6.5 [facility] Comment on above: Performed By: #### I NSULT #### [facility] [address] [place] [address] Dr. Deepika Terrell Neutrophils/100 WBC (Bld) 71.1 % Normal 43.0-75.0 [facility] Comment on above: Performed By: #### I NSULT #### [facility] [address] [place] [address] Dr. Deepika Terrell Platelet mean volume (Bld) [Entitic vol] 10.7 fL Normal 9.5-13.5 [facility] Comment on above: Performed By: #### I NSULT #### [facility] [address] [place] [address] Dr. Deepika Terrell PLT 295 103/ul Normal 150-450 [facility] Comment on above: Performed By: #### I NSULT #### [facility] [address] [place] [address] Dr. Deepika Terrell RBC 3.28 106/ul Critically low 4.70-6.10 [facility] Comment on above: Performed By: #### I NSULT #### [facility] [address] [place] [address] Dr. Deepika Terrell WBC 11.1 103/ul Critically high 4.0-11.0 [facility] Comment on above: Performed By: #### I NSULT #### [facility] [address] [place] [address] ABD/PELV W CONon [...] YANIV DACOSTA Date: 2022-06-01 22:50 Normal [facility] Covid-19 PCR (CVDTB)on 05-09 SARS-CoV-2 (COVID-19) RNA DANICA+probe Ql (Unsp spec) Not detected Normal NOT DETECTED [facility] Comment on above: Result Comment: When [...] for this test is supported by the [place] of [employer] and [employer] Service's declaration that [...] used). Performed By: #### I NSULT #### [facility] [address] [place] [address] Dr. Deepika Terrell ER URINE PROFILEon 3 Bilirubin Ql (U) Negative Normal NEGATIVE [facility] Comment on above: Performed By: #### E RUR #### [facility] [address] [place] [address] Dr. Deepika Terrell Clarity (U) CLEAR Normal CLEAR [facility] Comment on above: Performed By: #### E RUR #### [facility] [address] [place] [address] Dr. Deepika Terrell Color (U) LT. YELLOW Normal YELLOW [facility] Comment on above: Performed By: #### E RUR #### [facility] [address] [place] [address] Dr. Deepika Terrell ERUAHD A micrscopic examina tion will be performed if indicated. Normal [facility] Comment on above: Performed By: #### E RUR #### [facility] [address] [place] [address] Dr. Deepika Terrell Glucose Ql (U) Negative Normal NEGATIVE [facility] Comment on above: Performed By: #### E RUR #### [facility] [address] [place] [address] Dr. Deepika Terrell Hemoglobin Ql (U) Negative Normal NEGATIVE [facility] Comment on above: Performed By: #### E RUR #### [facility] [address] [place] [address] Dr. Deepika Terrell Ketones Ql (U) Negative Normal NEGATIVE [facility] Comment on above: Performed By: #### E RUR #### [facility] [address] [place] [address] Dr. Deepika Terrell LEUKOCYTES Negative Normal NEGATIVE [facility] Comment on above: Performed By: #### E RUR #### [facility] [address] [place] [address] Dr. Deepika Terrell Nitrite Ql (U) Negative Normal NEGATIVE [facility] Comment on above: Performed By: #### E RUR #### [facility] [address] [place] [address] Dr. Deepika Terrell pH (U) 6.0 [pH] Normal 5-9 [facility] Comment on above: Performed By: #### E RUR #### [facility] [address] [place] [address] Dr. Deepika Terrell SPEC GRAVITY 1.010 Normal 1.005-<=1.02 5 [facility] Comment on above: Performed By: #### E RUR #### [facility] [address] [place] [address] Dr. Deepika Terrell UA PROTEIN Negative Normal NEGATIVE/ TRACE [facility] Comment on above: Performed By: #### E RUR #### [facility] [address] [place] [address] Dr. Deepika Terrell UR MICRO IND NOT INDICATED Normal [facility] Comment on above: Performed By: #### E RUR #### [facility] [address] [place] [address] Dr. Deepika Terrell Urobilinogen Qn (U) 0.2 {Jesus'U}/dL Normal 0.2 - 1.0 [facility] Comment on above: Performed By: #### E RUR #### [facility] [address] [place] [address] Dr. Deepika Terrell GLYCOHEMOGLOBIN A1Con 2022 ADA RECOMMENDATION SEE BELOW Normal [facility] Comment on above: Result Comment: ADA RECOMMENDED LIMIT 4.0 - 6.0 ADA THERAPEUTIC TARGET < 7.0 ACTION SUGGESTED > 7.0 Performed By: #### I NSULT #### [facility] [address] [address] [address] Deepika Terrell Glucose [Mass/Vol] 134 mg/dL Normal [facility] [place] Comment on above: Performed By: #### I NSULT #### [facility] [address] [address] [address] Deepika Terrell HbA1c (Bld) [Mass fraction] 6.3 % Critically high 4.5-6.2 [facility] Comment on above: Performed By: #### I NSULT #### [facility] [address] [place] [address] Dr. Deepika Terrell POINT OF CARE GLUCOSEon 05-09 Glucose [Mass/Vol] 175 mg/dL Critically high 74-106 [facility] Comment on above: Performed By: #### I NSULT #### [facility] [address] [place] [address] Dr. Deepika Terrell Glucose [Mass/Vol] 151 mg/dL Critically high 74-106 [facility] Comment on above: Performed By: #### I NSULT #### [facility] [address] [place] [address] Dr. Deepika Terrell Glucose [Mass/Vol] 95 mg/dL Normal 74-106 [facility] [place] Comment on above: Performed By: #### C BC #### [facility] [address] [place] [address] Dr. Deepika Terrell Glucose [Mass/Vol] 83 mg/dL Normal 74-106 [facility] [place] Comment on above: Performed By: #### I NSULT #### [facility] [address] [place] [address] Dr. Deepika Terrell Glucose [Mass/Vol] 63 mg/dL Critically low 74-106 [facility] Comment on above: Performed By: #### P ERSMR #### [facility] [address] [place] [address] Dr. Deepika Terrell Glucose [Mass/Vol] 48 mg/dL Critically low 74-106 [facility] Comment on above: Result Comment: Resu lt Not Confirmed Performed By: #### B MP #### [facility] [address] [address] [address] Deepika Terrell Glucose [Mass/Vol] 62 mg/dL Critically low 74-106 [facility] Comment on above: Performed By: #### B MP #### [facility] [address] [address] [address] Deepika Terrell Glucose [Mass/Vol] 61 mg/dL Critically low 74-106 [facility] Comment on above: Performed By: #### C PEPT #### [facility] [address] [address] [address] Deepika Terrell PROF CHEM 8 (BAS METB)on Anion gap [Moles/Vol] 11.6 mmol/L Normal [facility] Comment on above: Performed By: #### B MP #### [facility] [address] [place] [address] Dr. Deepika Terrell Calcium [Mass/Vol] 8.2 mg/dL Critically low 8.5-10.1 [facility] Comment on above: Performed By: #### B MP #### [facility] [address] [place] [address] Dr. Deepika Terrell Chloride [Moles/Vol] 111 mmol/L Critically high 98-107 [facility] Comment on above: Performed By: #### B MP #### [facility] [address] [place] [address] Dr. Deepika Terrell CO2 [Moles/Vol] 23.5 mmol/L Normal 21.0-32.0 [facility] Comment on above: Performed By: #### B MP #### [facility] [address] [place] [address] Dr. Deepika Terrell Creatinine [Mass/Vol] 1.32 mg/dL Critically high 0.70-1.30 [facility] Comment on above: Performed By: #### B MP #### [facility] [address] [place] [address] Dr. Deepika Terrell EGFR-AF NICARAGUAN >60 Normal >=60 [facility] Comment on above: Performed By: #### B MP #### [facility] [address] [address] [address] Deepika Terrell EGFR-NON AF NICARAGUAN 51 mL/min/1.73m2 Critically low >=60 [facility] Comment on above: Performed By: #### B MP #### [facility] [address] [address] [address] Deepika Terrell Glucose [Mass/Vol] 91 mg/dL Normal 74-106 [facility] [place] Comment on above: Performed By: #### B MP #### [facility] [address] [address] [address] Deepika Terrell Potassium [Moles/Vol] 4.1 mmol/L Normal 3.5-5.1 [facility] Comment on above: Performed By: #### B MP #### [facility] [address] [address] [address] Deepika Terrell Sodium [Moles/Vol] 142 mmol/L Normal 136-145 [facility] Comment on above: Performed By: #### B MP #### [facility] [address] [address] [address] Deepika Terrell Urea nitrogen [Mass/Vol] 29.0 mg/dL Critically high 7.0-18.0 [facility] Comment on above: Performed By: #### B MP #### [facility] [address] [address] [address] Deepika Terrell Urea nitrogen/Creatinin e [Mass ratio] 22.0 mg/mg Normal [facility] Comment on above: Performed By: #### B MP #### [facility] [address] [address] [address] Deepika Terrell AMMONIAon 06-01-2022 Ammonia (P) [Moles/Vol] 17 umol/L Normal 11-32 [facility] Comment on above: Performed By: #### C BC #### [facility] [address] [address] [address] Deepika Terrell BNPon 06-01-2022 Natriuretic peptide B (Bld) [Mass/Vol] 132.0 pg/mL Normal <=1,800.0 [facility] Comment on above: Performed By: #### C BC #### [facility] [address] [place] [address] Dr. Deepika Terrell CBC AUTO DIFFon 06-01-2022 BASO # 0.1 103/ul Normal 0.0-0.1 [facility] Comment on above: Performed By: #### C BC #### [facility] [address] [place] [address] Dr. Deepika Terrell Basophils/100 WBC (Bld) 0.3 % Normal 0.2-2.0 [facility] Comment on above: Performed By: #### C BC #### [facility] [address] [place] [address] Dr. Deepika Terrell EO # 0.1 103/ul Normal 0.0-0.7 [facility] Comment on above: Performed By: #### C BC #### [facility] [address] [place] [address] Dr. Deepika Terrell Eosinophils/100 WBC (Bld) 0.9 % Normal 0.9-7.0 [facility] Comment on above: Performed By: #### C BC #### [facility] [address] [place] [address] Dr. Deepika Terrell Erythrocyte distribution width (RBC) [Ratio] 14.7 % Normal 11.0-15.0 [facility] Comment on above: Performed By: #### C BC #### [facility] [address] [place] [address] Dr. Deepika Terrell Hematocrit (Bld) [Volume fraction] 33.6 % Critically low 42.0-54.0 [facility] Comment on above: Performed By: #### C BC #### [facility] [address] [place] [address] Dr. Deepika Terrell Hemoglobin (Bld) [Mass/Vol] 10.9 g/dL Critically low 14.0-18.0 [facility] Comment on above: Performed By: #### C BC #### [facility] [address] [place] [address] Dr. Deepika Terrell IG # 0.07 10e3/ul Critically high 0.00-0.03 [facility] Comment on above: Performed By: #### C BC #### [facility] [address] [place] [address] Dr. Deepika Terrell IG % 0.5 % Normal 0.0-0.5 [facility] Comment on above: Performed By: #### C BC #### [facility] [address] [place] [address] Dr. Deepika Terrell LYMPH # 1.5 103/ul Normal 1.2-3.8 [facility] Comment on above: Performed By: #### C BC #### [facility] [address] [place] [address] Dr. Deepika Terrell Lymphocytes/100 WBC (Bld) 10.3 % Critically low 20.5-60.0 [facility] Comment on above: Performed By: #### C BC #### [facility] [address] [place] [address] Dr. Deepika Terrell MANUAL DIFF REQ NO Normal [facility] Comment on above: Performed By: #### C BC #### [facility] [address] [place] [address] Dr. Deepika Terrell MCH (RBC) [Entitic mass] 29.9 pg Normal 25.9-34.0 [facility] Comment on above: Performed By: #### C BC #### [facility] [address] [place] [address] Dr. Deepika Terrell MCHC (RBC) [Mass/Vol] 32.4 g/dL Normal 29.9-35.2 [facility] Comment on above: Performed By: #### C BC #### [facility] [address] [place] [address] Dr. Deepika Terrell MCV (RBC) [Entitic vol] 92.1 fL Normal 80.0-94.0 [facility] Comment on above: Performed By: #### C BC #### [facility] [address] [place] [address] Dr. Deepika Terrell MONO # 1.3 103/ul Critically high 0.3-0.8 [facility] Comment on above: Performed By: #### C BC #### [facility] [address] [address] [address] Deepika Terrell Monocytes/100 WBC (Bld) 8.9 % Normal 1.7-12.0 [facility] Comment on above: Performed By: #### C BC #### [facility] [address] [address] [address] Deepika Terrell NEUT # 11.8 103/ul Critically high 1.4-6.5 [facility] Comment on above: Performed By: #### C BC #### [facility] [address] [address] [address] Deepika Terrell Neutrophils/100 WBC (Bld) 79.1 % Critically high 43.0-75.0 [facility] Comment on above: Performed By: #### C BC #### [facility] [address] [place] [address] Dr. Deepika Terrell Platelet mean volume (Bld) [Entitic vol] 11.4 fL Normal 9.5-13.5 [facility] Comment on above: Performed By: #### C BC #### [facility] [address] [place] [address] Dr. Deepika Terrell PLT 324 103/ul Normal 150-450 [facility] Comment on above: Performed By: #### C BC #### [facility] [address] [address] [address] Deepika Terrell RBC 3.65 106/ul Critically low 4.70-6.10 [facility] Comment on above: Performed By: #### C BC #### [facility] [address] [address] [address] Deepika Terrell WBC 14.9 103/ul Critically high 4.0-11.0 [facility] Comment on above: Performed By: #### C BC #### [facility] [address] [place] [address] Dr. Deepika Terrell POINT OF CARE GLUCOSEon 05-09 Glucose [Mass/Vol] 29 mg/dL Critically low 74-106 [facility] Comment on above: Result Comment: Resu lt Not Confirmed Performed By: #### B MP #### [facility] [address] [place] [address] Dr. Deepika Terrell Glucose [Mass/Vol] 28 mg/dL Critically low 74-106 [facility] Comment on above: Result Comment: Will Repeat Test Performed By: #### C PEPT #### [facility] [address] [place] [address] Dr. Deepika Terrell PROF 14(COMP METB)on 023 Albumin [Mass/Vol] 3.3 g/dL Critically low 3.4-5.0 [facility] Comment on above: Performed By: #### C BC #### [facility] [address] [place] [address] Dr. Deepika Terrell Albumin/Globulin [Mass ratio] 1.0 {ratio} Normal [facility] Comment on above: Performed By: #### C BC #### [facility] [address] [place] [address] Dr. Deepika Terrell ALP [Catalytic activity/Vol] 75 U/L Normal 46-116 [facility] [facility] Comment on above: Performed By: #### C BC #### [facility] [address] [place] [address] Dr. Deepika Terrell ALT [Catalytic activity/Vol] 34 U/L Normal 16-63 [facility] Comment on above: Performed By: #### C BC #### [facility] [address] [place] [address] Dr. Deepika Terrell Anion gap [Moles/Vol] 14.0 mmol/L Normal [facility] Comment on above: Performed By: #### C BC #### [facility] [address] [place] [address] Dr. Deepika Terrell AST [Catalytic activity/Vol] 19 U/L Normal 15-37 [facility] Comment on above: Performed By: #### C BC #### [facility] [address] [place] [address] Dr. Deepika Terrell Bilirubin [Mass/Vol] 0.2 mg/dL Normal 0.2-1.0 [facility] Comment on above: Performed By: #### C BC #### [facility] [address] [address] [address] Deepika Terrell Calcium [Mass/Vol] 8.6 mg/dL Normal 8.5-10.1 [facility] [place] Comment on above: Performed By: #### C BC #### [facility] [address] [address] [address] Deepika Terrell Chloride [Moles/Vol] 109 mmol/L Critically high 98-107 [facility] Comment on above: Performed By: #### C BC #### [facility] [address] [address] [address] Deepika Terrell CO2 [Moles/Vol] 23.9 mmol/L Normal 21.0-32.0 [facility] Comment on above: Performed By: #### C BC #### [facility] [address] [address] [address] Deepika Terrell Creatinine [Mass/Vol] 1.59 mg/dL Critically high 0.70-1.30 [facility] Comment on above: Performed By: #### C BC #### [facility] [address] [address] [address] Deepika Terrell EGFR-AF NICARAGUAN 50 mL/min/1.73m2 Critically low >=60 [facility] Comment on above: Performed By: #### C BC #### [facility] [address] [address] [address] Deepika Terrell EGFR-NON AF NICARAGUAN 41 mL/min/1.73m2 Critically low >=60 [facility] Comment on above: Performed By: #### C BC #### [facility] [address] [address] [address] Deepika Terrell Globulin (S) [Mass/Vol] 3.3 g/dL Normal [facility] Comment on above: Performed By: #### C BC #### [facility] [address] [address] [address] Deepika Terrell Glucose [Mass/Vol] 26 mg/dL Critically low 74-106 [facility] Comment on above: Performed By: #### C BC #### [facility] [address] [address] [address] Deepika Terrell Potassium [Moles/Vol] 3.9 mmol/L Normal 3.5-5.1 [facility] Comment on above: Performed By: #### C BC #### [facility] [address] [address] [address] Deepika Terrell Protein [Mass/Vol] 6.6 g/dL Normal 6.4-8.2 [facility] [place] Comment on above: Performed By: #### C BC #### [facility] [address] [address] [address] Deepika Terrell Sodium [Moles/Vol] 143 mmol/L Normal 136-145 [facility] [place] Comment on above: Performed By: #### C BC #### [facility] [address] [address] [address] Deepika Terrell Urea nitrogen [Mass/Vol] 34.0 mg/dL Critically high 7.0-18.0 [facility] Comment on above: Performed By: #### C BC #### [facility] [address] [address] [address] Deepika Terrell Urea nitrogen/Creatinin e [Mass ratio] 21.4 mg/mg Normal [facility] Comment on above: Performed By: #### C BC #### [facility] [address] [address] [address] Deepika Terrell TROPONIN, HIGH SENSITIVITYon 06-01-2022 HSTROP 13.2 pg/mL Normal 4.0-76.1 [facility] Comment on above: Result Comment: CUT- OFF POINTS HAVE BEEN ESTABLISHED BASED ON THE FOURTH UNIVERSAL DEFINITIONS OF MYOCARDIAL INFARCTION. THE UPPER REFERENCE LIMIT (URL) OF TROPONIN, DEFINED THE 99TH PERCENTILE OF cTnI DISTRIBUTION IN A REFERENCE POPULATION, HAS BEEN CONFIRMED THE DECISION THRESHOLD FOR OR DIAGNOSIS. Performed By: #### B MP #### [facility] [address] [address] [address] Deepika Terrell GI PANEL (PCR)on 05-30-2022 Adenovirus F 40/41 Not detected Normal NOT DETECTED [facility] Comment on above: Performed By: #### P ERSMR #### [facility] [address] [address] [address] Deepika Terrell Astrovirus Not detected Normal NOT DETECTED [facility] Comment on above: Performed By: #### P ERSMR #### [facility] [address] [place] [address] Dr. Deepika Terrell C. Diff toxin A/B Not detected Normal NOT DETECTED [facility] Comment on above: Performed By: #### P ERSMR #### [facility] [address] [place] [address] Dr. Deepika Terrell Campylobacter Not detected Normal NOT DETECTED [facility] Comment on above: Performed By: #### P ERSMR #### [facility] [address] [place] [address] Dr. Deepika Terrell Cryptosporidium Not detected Normal NOT DETECTED [facility] Comment on above: Performed By: #### P ERSMR #### [facility] [address] [place] [address] Dr. Deepika Terrell Cyclos. Cayetanensis Not detected Normal NOT DETECTED [facility] Comment on above: Performed By: #### P ERSMR #### [facility] [address] [place] [address] Dr. Deepika Terrell E. Coli O157 Not Applicable Normal Not Applicable [facility] Comment on above: Performed By: #### P ERSMR #### [facility] [address] [place] [address] Dr. Deepika Terrell E. histolytica Not detected Normal NOT DETECTED [facility] Comment on above: Performed By: #### P ERSMR #### [facility] [address] [place] [address] Dr. Deepika Terrell EAEC Not detected Normal NOT DETECTED [facility] Comment on above: Performed By: #### P ERSMR #### [facility] [address] [place] [address] Dr. Deepika Terrell EIEC Not detected Normal NOT DETECTED [facility] Comment on above: Performed By: #### P ERSMR #### [facility] [address] [address] [address] Deepika Terrell EPEC Not detected Normal NOT DETECTED [facility] Comment on above: Performed By: #### P ERSMR #### [facility] [address] [address] [address] Deepika Terrell ETEC Not detected Normal NOT DETECTED [facility] Comment on above: Performed By: #### P ERSMR #### [facility] [address] [address] [address] Deepika Terrell G. Lamblia Not detected Normal NOT DETECTED [facility] Comment on above: Performed By: #### P ERSMR #### [facility] [address] [place] [address] Dr. Deepika WOLFE CONTROLS PASSED Normal [facility] Comment on above: Performed By: #### P ERSMR #### [facility] [address] [place] [address] Dr. Deepika YRAN HEADER GI PANEL BACTERIA Normal [facility] Comment on above: Performed By: #### P ERSMR #### [facility] [address] [place] [address] Dr. Deepika CACERES ECOLI GI PANEL DIARRHEAGEN IC E.COLI / SHIGELLA Normal [facility] Comment on above: Performed By: #### P ERSMR #### [facility] [address] [place] [address] Dr. Deepika CACERES INFO SEE BELOW Normal [facility] Comment on above: Result Comment: EAEC - Enteroaggregative E. Coli EPEC- Enteropathogenic E. Coli ETEC- Enterotoxigenic E. Coli lt/st STEC- Shigella-like toxin-producing E. Coli stx1/stx2 EIEC- Shigella/Enteroinvasive E. Coli Performed By: #### P ERSMR #### [facility] [address] [place] [address] Dr. Deepika CACERES PARASITES GI PANEL PARASITES Normal [facility] Comment on above: Performed By: #### P ERSMR #### [facility] [address] [place] [address] Dr. Deepika Terrell GIPNLHD VIRUS GI PANEL VIRUSES Normal [facility] Comment on above: Performed By: #### P ERSMR #### [facility] [address] [place] [address] Dr. Deepika Terrell Norovirus GI/GII Not detected Normal NOT DETECTED [facility] Comment on above: Performed By: #### P ERSMR #### [facility] [address] [place] [address] Dr. Deepika Terrell P. Shigelloides Not detected Normal NOT DETECTED [facility] Comment on above: Performed By: #### P ERSMR #### [facility] [address] [address] [address] Deepika Terrell Rotavirus A Not detected Normal NOT DETECTED [facility] Comment on above: Performed By: #### P ERSMR #### [facility] [address] [place] [address] Dr. Deepika Terrell Salmonella Not detected Normal NOT DETECTED [facility] Comment on above: Performed By: #### P ERSMR #### [facility] [address] [place] [address] Dr. Deepika Terrell Sapovirus Not detected Normal NOT DETECTED [facility] Comment on above: Performed By: #### P ERSMR #### [facility] [address] [place] [address] Dr. Deepika Terrell STEC Not detected Normal NOT DETECTED [facility] Comment on above: Performed By: #### P ERSMR #### [facility] [address] [place] [address] Dr. Deepika Terrell Vibrio Not detected Normal NOT DETECTED [facility] Comment on above: Performed By: #### P ERSMR #### [facility] [address] [address] [address] Deepika Terrell Vibrio Cholera Not detected Normal NOT DETECTED [facility] Comment on above: Performed By: #### P ERSMR #### [facility] [address] [place] [address] Dr. Deepika Terrell Y. Enterocolitica Not detected Normal NOT DETECTED [facility] Comment on above: Performed By: #### P ERSMR #### [facility] [address] [address] [address] Deepika Terrell PROF CHEM 8 (BAS METB)on Anion gap [Moles/Vol] 13.9 mmol/L Normal [facility] Comment on above: Performed By: #### P ERSMR #### [facility] [address] [address] [address] Deepika Terrell Calcium [Mass/Vol] 8.9 mg/dL Normal 8.5-10.1 [facility] Comment on above: Performed By: #### P ERSMR #### [facility] [address] [address] [address] Deepika Terrell Chloride [Moles/Vol] 104 mmol/L Normal 98-107 [facility] Comment on above: Performed By: #### P ERSMR #### [facility] [address] [place] [address] Dr. Deepika Terrell CO2 [Moles/Vol] 26.3 mmol/L Normal 21.0-32.0 [facility] Comment on above: Performed By: #### P ERSMR #### [facility] [address] [place] [address] Dr. eDepika Terrell Creatinine [Mass/Vol] 1.70 mg/dL Critically high 0.70-1.30 [facility] Comment on above: Performed By: #### P ERSMR #### [facility] [address] [address] [address] Deepika Terrell EGFR-AF NICARAGUAN 47 mL/min/1.73m2 Critically low >=60 [facility] Comment on above: Performed By: #### P ERSMR #### [facility] [address] [address] [address] Deepika eTrrell EGFR-NON AF NICARAGUAN 38 mL/min/1.73m2 Critically low >=60 [facility] Comment on above: Performed By: #### P ERSMR #### [facility] [address] [address] [address] Deepika Terrell Glucose [Mass/Vol] 62 mg/dL Critically low 74-106 [facility] Comment on above: Performed By: #### P ERSMR #### [facility] [address] [address] [address] Deepika Terrell Potassium [Moles/Vol] 4.2 mmol/L Normal 3.5-5.1 [facility] Comment on above: Performed By: #### P ERSMR #### [facility] [address] [address] [address] Deepika Terrell Sodium [Moles/Vol] 140 mmol/L Normal 136-145 [facility] Comment on above: Performed By: #### P ERSMR #### [facility] [address] [address] [address] Deepika Terrell Urea nitrogen [Mass/Vol] 34.0 mg/dL Critically high 7.0-18.0 [facility] Comment on above: Performed By: #### P ERSMR #### [facility] [address] [address] [address] Deepika Terrell Urea nitrogen/Creatinin e [Mass ratio] 20.0 mg/mg Normal [facility] Comment on above: Performed By: #### P ERSMR #### [facility] [address] [place] [address] Dr. Deepika Terrell ECHOCARDIO M/2D COMPLETEon 1 06-02-2021 ECHOCARDIO M/2D COMPLETE Patient: LILIANA NATARAJAN Exam Date: 04/01/2022 : 1935 Gender:M Ordering : ARNEL KELLOGG Admission #: [id number] Family : Order #: [id number] CLICK HERE TO VIEW EXAM ECHOCARDIOGRAM REPORT [...] M.D. on 04/09/2022 at 08:52 Normal [facility] CBC AUTO DIFFon 02-05-2022 BASO # 0.1 103/ul Normal 0.0-0.1 [facility] Comment on above: Performed By: #### C BC #### [facility] [address] [place] [address] Dr. Deepika Terrell Basophils/100 WBC (Bld) 0.5 % Normal 0.2-2.0 [facility] Comment on above: Performed By: #### C BC #### [facility] [address] [place] [address] Dr. Deepika Terrell EO # 0.3 103/ul Normal 0.0-0.7 [facility] Comment on above: Performed By: #### C BC #### [facility] [address] [place] [address] Dr. Deepika Terrell Eosinophils/100 WBC (Bld) 3.3 % Normal 0.9-7.0 [facility] Comment on above: Performed By: #### C BC #### [facility] [address] [place] [address] Dr. Deepika Terrell Erythrocyte distribution width (RBC) [Ratio] 14.0 % Normal 11.0-15.0 [facility] Comment on above: Performed By: #### C BC #### [facility] [address] [place] [address] Dr. Deepika Terrell Hematocrit (Bld) [Volume fraction] 41.2 % Critically low 42.0-54.0 [facility] Comment on above: Performed By: #### C BC #### [facility] [address] [address] [address] Deepika Terrell Hemoglobin (Bld) [Mass/Vol] 13.4 g/dL Critically low 14.0-18.0 [facility] Comment on above: Performed By: #### C BC #### [facility] [address] [place] [address] Dr. Deepika Terrell IG # 0.04 10e3/ul Critically high 0.00-0.03 [facility] Comment on above: Performed By: #### C BC #### [facility] [address] [place] [address] Dr. Deepika Terrell IG % 0.4 % Normal 0.0-0.5 [facility] Comment on above: Performed By: #### C BC #### [facility] [address] [place] [address] Dr. Deepika Terrell LYMPH # 3.4 103/ul Normal 1.2-3.8 [facility] Comment on above: Performed By: #### C BC #### [facility] [address] [place] [address] Dr. Deepika Terrell Lymphocytes/100 WBC (Bld) 36.2 % Normal 20.5-60.0 [facility] Comment on above: Performed By: #### C BC #### [facility] [address] [place] [address] Dr. Deepika Terrell MANUAL DIFF REQ NO Normal [facility] Comment on above: Performed By: #### C BC #### [facility] [address] [place] [address] Dr. Deepika Terrell MCH (RBC) [Entitic mass] 30.9 pg Normal 25.9-34.0 [facility] Comment on above: Performed By: #### C BC #### [facility] [address] [address] [address] Deepika Terrell MCHC (RBC) [Mass/Vol] 32.5 g/dL Normal 29.9-35.2 [facility] Comment on above: Performed By: #### C BC #### [facility] [address] [place] [address] Dr. Deepika Terrell MCV (RBC) [Entitic vol] 94.9 fL Critically high 80.0-94.0 [facility] Comment on above: Performed By: #### C BC #### [facility] [address] [place] [address] Dr. Deepika Terrell MONO # 0.9 103/ul Critically high 0.3-0.8 [facility] Comment on above: Performed By: #### C BC #### [facility] [address] [place] [address] Dr. Deepika Terrell Monocytes/100 WBC (Bld) 9.9 % Normal 1.7-12.0 [facility] Comment on above: Performed By: #### C BC #### [facility] [address] [place] [address] Dr. Deepika Terrell NEUT # 4.7 103/ul Normal 1.4-6.5 [facility] Comment on above: Performed By: #### C BC #### [facility] [address] [place] [address] Dr. Deepika Terrell Neutrophils/100 WBC (Bld) 49.7 % Normal 43.0-75.0 [facility] Comment on above: Performed By: #### C BC #### [facility] [address] [place] [address] Dr. Deepika Terrell Platelet mean volume (Bld) [Entitic vol] 10.1 fL Normal 9.5-13.5 [facility] Comment on above: Performed By: #### C BC #### [facility] [address] [place] [address] Dr. Deepika Terrell PLT 290 103/ul Normal 150-450 [facility] Comment on above: Performed By: #### C BC #### [facility] [address] [place] [address] Dr. Deepika Terrell RBC 4.34 106/ul Critically low 4.70-6.10 [facility] Comment on above: Performed By: #### C BC #### [facility] [address] [address] [address] Deepika Terrell WBC 9.4 103/ul Normal 4.0-11.0 [facility] Comment on above: Performed By: #### C BC #### [facility] [address] [address] [address] Deepika Terrell FREE T3on 02-05-2022 FREE T3 1.83 pg/mlL Critically low 2.18-3.98 [facility] Comment on above: Performed By: #### C PEPT #### [facility] [address] [place] [address] Dr. Deepika Terrell GLYCOHEMOGLOBIN A1Con 2021 ADA RECOMMENDATION SEE BELOW Normal [facility] Comment on above: Result Comment: ADA RECOMMENDED LIMIT 4.0 - 6.0 ADA THERAPEUTIC TARGET < 7.0 ACTION SUGGESTED > 7.0 Performed By: #### A 1C #### [facility] [address] [place] [address] Dr. Deepika Terrell Glucose [Mass/Vol] 114 mg/dL Normal [facility] Comment on above: Performed By: #### A 1C #### [facility] [address] [place] [address] Dr. Deepika Terrell HbA1c (Bld) [Mass fraction] 5.6 % Normal 4.5-6.2 [facility] Comment on above: Performed By: #### A 1C #### [facility] [address] [place] [address] Dr. Deepika Terrell LIPID PROFILEon 02-05-2022 CHOL-HDL RATIO NORM SEE BELOW Normal [facility] Comment on above: Result Comment: 3.3 - 4.4 LOW RISK 4.4 - 7.1 AVERAGE RISK 7.1 - 11.0 MODERATE RISK >11.0 HIGH RISK Performed By: #### C PEPT #### [facility] [address] [place] [address] Dr. Deepika Terrell Cholesterol [Mass/Vol] 187 mg/dL Normal <=200 [facility] Comment on above: Performed By: #### C PEPT #### [facility] [address] [place] [address] Dr. Deepika Terrell Cholesterol in HDL [Mass/Vol] 49 mg/dL Normal 40-60 [facility] Comment on above: Performed By: #### C PEPT #### [facility] [address] [place] [address] Dr. Deepika Terrell Cholesterol in LDL [Mass/Vol] 123.8 mg/dL Normal [facility] Comment on above: Performed By: #### C PEPT #### [facility] [address] [place] [address] Dr. Deepika Terrell Cholesterol.total/ Cholesterol in HDL [Mass ratio] 3.8 {ratio} Normal [facility] Comment on above: Performed By: #### C PEPT #### [facility] [address] [place] [address] Dr. Deepika Terrell HDL NORMAL > or = 60 mg/dl - LO W CARDIOVASCULAR RISK <40 mg/dl - HIGH CARDIOVASCULAR RISK Normal [facility] Comment on above: Performed By: #### C PEPT #### [facility] [address] [place] [address] Dr. Deepika Terrell LDL CALC NORMAL SEE BELOW Normal [facility] Comment on above: Result Comment: <100 mg/dl OPTIMAL 100 - 129 mg/dl NEAR OR ABOVE OPTIMAL 130 - 159 mg/dl BORDERLINE HIGH 160 - 189 mg/dl HIGH >190 mg/dl VERY HIGH Performed By: #### C PEPT #### [facility] [address] [place] [address] Dr. Deepika Terrell Triglyceride [Mass/Vol] 71 mg/dL Normal <=150 [facility] Comment on above: Performed By: #### C PEPT #### [facility] [address] [place] [address] Dr. Deepika Terrell VLDL CALC 14.2 mg/dL Normal [facility] Comment on above: Performed By: #### C PEPT #### [facility] [address] [place] [address] Dr. Deepika Terrell PROF 14(COMP METB)on 022 Albumin [Mass/Vol] 4.0 g/dL Normal 3.4-5.0 [facility] Comment on above: Performed By: #### C PEPT #### [facility] [address] [place] [address] Dr. Deepika Terrell Albumin/Globulin [Mass ratio] 1.2 {ratio} Normal [facility] Comment on above: Performed By: #### C PEPT #### [facility] [address] [place] [address] Dr. Deepika Terrell ALP [Catalytic activity/Vol] 61 U/L Normal 46-116 [facility] Comment on above: Performed By: #### C PEPT #### [facility] [address] [place] [address] Dr. Deepika Terrell ALT [Catalytic activity/Vol] 38 U/L Normal 16-63 [facility] Comment on above: Performed By: #### C PEPT #### [facility] [address] [place] [address] Dr. Deepika Terrell Anion gap [Moles/Vol] 8.1 mmol/L Normal [facility] Comment on above: Performed By: #### C PEPT #### [facility] [address] [place] [address] Dr. Deepika Terrell AST [Catalytic activity/Vol] 19 U/L Normal 15-37 [facility] Comment on above: Performed By: #### C PEPT #### [facility] [address] [place] [address] Dr. Deepika Terrell Bilirubin [Mass/Vol] 0.4 mg/dL Normal 0.2-1.0 [facility] Comment on above: Performed By: #### C PEPT #### [facility] [address] [place] [address] Dr. Deepika Terrell Calcium [Mass/Vol] 9.4 mg/dL Normal 8.5-10.1 [facility] Comment on above: Performed By: #### C PEPT #### [facility] [address] [place] [address] Dr. Deepika Terrell Chloride [Moles/Vol] 104 mmol/L Normal 98-107 [facility] Comment on above: Performed By: #### C PEPT #### [facility] [address] [place] [address] Dr. Deepika Terrell CO2 [Moles/Vol] 32.6 mmol/L Critically high 21.0-32.0 [facility] Comment on above: Performed By: #### C PEPT #### [facility] [address] [place] [address] Dr. Deepika Terrell Creatinine [Mass/Vol] 1.63 mg/dL Critically high 0.70-1.30 [facility] Comment on above: Performed By: #### C PEPT #### [facility] [address] [place] [address] Dr. Deepika Terrell EGFR-AF NICARAGUAN 49 mL/min/1.73m2 Critically low >=60 [facility] Comment on above: Performed By: #### C PEPT #### [facility] [address] [place] [address] Dr. Deepika Terrell EGFR-NON AF NICARAGUAN 40 mL/min/1.73m2 Critically low >=60 [facility] Comment on above: Performed By: #### C PEPT #### [facility] [address] [place] [address] Dr. Deepika Terrell Globulin (S) [Mass/Vol] 3.3 g/dL Normal [facility] Comment on above: Performed By: #### C PEPT #### [facility] [address] [place] [address] Dr. Deepika Terrell Glucose [Mass/Vol] 127 mg/dL Critically high 74-106 [facility] Comment on above: Performed By: #### C PEPT #### [facility] [address] [place] [address] Dr. Deepika Terrell Potassium [Moles/Vol] 4.7 mmol/L Normal 3.5-5.1 [facility] Comment on above: Performed By: #### C PEPT #### [facility] [address] [place] [address] Dr. Deepika Terrell Protein [Mass/Vol] 7.3 g/dL Normal 6.4-8.2 [facility] Comment on above: Performed By: #### C PEPT #### [facility] [address] [place] [address] Dr. Deepika Terrell Sodium [Moles/Vol] 140 mmol/L Normal 136-145 [facility] Comment on above: Performed By: #### C PEPT #### [facility] [address] [place] [address] Dr. Deepika Terrell Urea nitrogen [Mass/Vol] 37.0 mg/dL Critically high 7.0-18.0 [facility] Comment on above: Performed By: #### C PEPT #### [facility] [address] [place] [address] Dr. Deepika Terrell Urea nitrogen/Creatinin e [Mass ratio] 22.7 mg/mg Normal [facility] Comment on above: Performed By: #### C PEPT #### [facility] [address] [place] [address] Dr. Deepika Terrell T4on 02-05-2022 T4 [Mass/Vol] 8.40 ug/dL Normal 4.50-12.10 [facility] Comment on above: Performed By: #### C PEPT #### [facility] [address] [place] [address] Dr. Deepika Terrell TSHon 02-05-2022 TSH 1.762 uIU/mL Normal 0.358-3.740 [facility] Comment on above: Performed By: #### C PEPT #### [facility] [address] [place] [address] Dr. Deepika Terrell US CAM[place] DOP LEG [...] DAVID ESPINAL Date: 2021-12-26 13:02 Normal [facility] PROF CHEM 8 (BAS METB)on Anion gap [Moles/Vol] 15.1 mmol/L Normal [facility] Comment on above: Performed By: #### B MP #### [facility] [address] [address] [address] Deepika Terrell Calcium [Mass/Vol] 9.2 mg/dL Normal 8.5-10.1 [facility] Comment on above: Performed By: #### B MP #### [facility] [address] [address] [address] Deepika Terrell Chloride [Moles/Vol] 102 mmol/L Normal 98-107 [facility] Comment on above: Performed By: #### B MP #### [facility] [address] [address] [address] Deepika Terrell CO2 [Moles/Vol] 25.8 mmol/L Normal 21.0-32.0 [facility] Comment on above: Performed By: #### B MP #### [facility] [address] [address] [address] Deepika Terrell Creatinine [Mass/Vol] 1.70 mg/dL Critically high 0.70-1.30 [facility] Comment on above: Performed By: #### B MP #### [facility] [address] [address] [address] Deepika Terrell EGFR-AF NICARAGUAN 47 mL/min/1.73m2 Critically low >=60 [facility] Comment on above: Performed By: #### B MP #### [facility] [address] [address] [address] Deepika Terrell EGFR-NON AF NICARAGUAN 38 mL/min/1.73m2 Critically low >=60 [facility] Comment on above: Performed By: #### B MP #### [facility] [address] [address] [address] Deepika Terrell Glucose [Mass/Vol] 75 mg/dL Normal 74-106 [facility] Comment on above: Performed By: #### B MP #### [facility] [address] [address] [address] Deepika Terrell Potassium [Moles/Vol] 4.9 mmol/L Normal 3.5-5.1 [facility] Comment on above: Performed By: #### B MP #### [facility] [address] [address] [address] Deepika Terrell Sodium [Moles/Vol] 138 mmol/L Normal 136-145 [facility] Comment on above: Performed By: #### B MP #### [facility] [address] [address] [address] Deepika Terrell Urea nitrogen [Mass/Vol] 45.0 mg/dL Critically high 7.0-18.0 [facility] Comment on above: Performed By: #### B MP #### [facility] [address] [place] [address] Dr. Deepika Terrell Urea nitrogen/Creatinin e [Mass ratio] 26.5 mg/mg Normal [facility] Comment on above: Performed By: #### B MP #### [facility] [address] [address] [address] Deepika Terrell PROF CHEM 8 (BAS METB)on Anion gap [Moles/Vol] 14.2 mmol/L Normal [facility] Comment on above: Performed By: #### B MP #### [facility] [address] [address] [address] Deepika Terrell Calcium [Mass/Vol] 9.4 mg/dL Normal 8.5-10.1 [facility] Comment on above: Performed By: #### B MP #### [facility] [address] [address] [address] Deepika Terrell Chloride [Moles/Vol] 106 mmol/L Normal 98-107 [facility] Comment on above: Performed By: #### B MP #### [facility] [address] [address] [address] Deepika Terrell CO2 [Moles/Vol] 25.1 mmol/L Normal 21.0-32.0 [facility] Comment on above: Performed By: #### B MP #### [facility] [address] [address] [address] Deepika Terrell Creatinine [Mass/Vol] 1.72 mg/dL Critically high 0.70-1.30 [facility] Comment on above: Performed By: #### B MP #### [facility] [address] [address] [address] Deepika Terrell EGFR-AF NICARAGUAN 46 mL/min/1.73m2 Critically low >=60 [facility] Comment on above: Performed By: #### B MP #### [facility] [address] [address] [address] Deepika Terrell EGFR-NON AF NICARAGUAN 38 mL/min/1.73m2 Critically low >=60 [facility] Comment on above: Performed By: #### B MP #### [facility] [address] [address] [address] Deepika Terrell Glucose [Mass/Vol] 51 mg/dL Critically low 74-106 [facility] Comment on above: Performed By: #### B MP #### [facility] [address] [address] [address] Deepika Terrell Potassium [Moles/Vol] 6.2 mmol/L Critically high 3.5-5.1 [facility] Comment on above: Performed By: #### B MP #### [facility] [address] [address] [address] Deepika Terrell Sodium [Moles/Vol] 138 mmol/L Normal 136-145 [facility] Comment on above: Performed By: #### B MP #### [facility] [address] [address] [address] Deepika Terrell Urea nitrogen [Mass/Vol] 42.0 mg/dL Critically high 7.0-18.0 [facility] Comment on above: Performed By: #### B MP #### [facility] [address] [address] [address] Deepika Terrell Urea nitrogen/Creatinin e [Mass ratio] 24.4 mg/mg Normal [facility] Comment on above: Performed By: #### B MP #### [facility] [address] [address] [address] Deepika Terrell MRI LSPINE WO CONon [...] KURT DON Date: 2021-09-14 14:24 Normal [facility] XR LSPINE MIN 4 VIEWSon XR [...] KURT DON Date: 2021-09-10 20:46 Normal [facility] GLYCOHEMOGLOBIN A1Con 2021 ADA RECOMMENDATION SEE BELOW Normal [facility] Comment on above: Result Comment: ADA RECOMMENDED LIMIT 4.0 - 6.0 ADA THERAPEUTIC TARGET < 7.0 ACTION SUGGESTED > 7.0 Performed By: #### C PEPT #### [facility] [address] [place] [address] Dr. Deepika Terrell Glucose [Mass/Vol] 131 mg/dL Normal [facility] Comment on above: Performed By: #### C PEPT #### [facility] [address] [address] [address] Deepika Terrell HbA1c (Bld) [Mass fraction] 6.2 % Normal 4.5-6.2 [facility] Comment on above: Performed By: #### C PEPT #### [facility] [address] [place] [address] Dr. Deepika Terrell Blood Urea Nitrogenon 2020 Urea nitrogen [Mass/Vol] 23 mg/dL Normal 9- [facility] Comment on above: Performed By: #### B UN, CREAT #### [address] abdomen pelvis w conon CT abdomen pelvis w [facility] [address] [place] [address] [place] [address] CT Scan Report Signed Patient: Liliana Natarajan MR#: [id number] 47 : 1935 Acct:[id number] Age/Sex: 85 / M ADM Date: 10/26/20 Loc: Room: Type: [facility] Attending Dr: Srinivasan Beaulieu MD Ordering Provider: Srinivasan Beaulieu MD Date of Service: 10/26/20 CT/CT abdomen pelvis w con: Diarrhea;Weight loss Copies to: Srinivasan Beauleiu MD CT abdomen pelvis w con 10/26/2020 [...] Eugene Cummings M.D.10/26/2020 4:54 PM Dictation Location: [place] [address] Transcribed By: [facility] 10/26/20 2986 Dictated By: Eugene Cummings II, MD 10/26/20 6380 Signed By: 10/26/20 1654 [facility] Creatinineon 10-26-2020 Creatinine [Mass/Vol] 1.44 mg/dL High 0.64-1.27 [facility] Comment on above: Performed By: #### B UN, CREAT #### [facility] [address] Creatinine Clr Calc Pharmacy 39.48 [facility] Comment on above: Result Comment: PERF ORMED BY: [facility] [address] [place] [address] PATHOLOGIST [employer]LOADER ANTHONY WEAVER M.D. Performed By: #### B UN, CREAT #### [facility] [address] [place] [address] Estimated GFR ( Zahida 56 [facility] Comment on above: Result Comment: GFR estimated reference range: According to KDOQI guidelines, <60 ml/min/1.73m2 is sufficient to diagnose a patient with chronic kidney disease. Performed By: #### B UN, CREAT #### [facility] [address] [place] [address] Estimated GFR (Non- Am 47 [facility] Comment on above: Performed By: #### B UN, CREAT #### [facility] [address] [place] [address] Glucose Poct Glucometerson 0 10-26-2020 Glucose [Mass/Vol] 100 mg/dL [facility] Comment on above: Result Comment: [facility] Glucose Reference Range is dependent on time and content of last meal. Glucose of more than 200 mg/dL in a nonstressed, ambulatory subject supports the diagnosis of Diabetes Mellitus. PERFORMED BY: [facility] [address] [place] [address] PATHOLOGIST [employer] ANTHONY WEAVER M.D. Performed By: #### G MATTLS #### Point of Care testing , [facility] 10-26-2020 L ------- Specimen: [id number] Received: 10/26/20 Status: SOLEDAD Rosemary Num: [id number] Spec Type: Surgical Subm Dr: Srinivasan Beaulieu MD Tissues: A Colon Biopsy (LEFT COLON BX) Procedures: HE Stain/2, Gross/Micro L4 Patient Age/Sex Location Account Attending Physician Liliana Natarajan/Raissa [id number] Srinivasan Beaulieu MD SPEC NUM: [id number] RECD: 10/26/20 STATUS: SOLEDAD WITTJames NUM: [id number] AALIYAH: 10/26/20- SUBM DR: Srinivasan Beaulieu MD ENTERED: 10/26/20-[address]: SPEC TYPE: Surgical DEPT: S ENTERED BY: [id number] RECV BY: [id number] ORDERED: HE Stain/2, Gross/Micro L4 ORDERED: HE [...] microscopic findings support the above pathologic diagnosis. [id number] Specimen: [id number] Received: 10/26/20 Status: SOLEDAD Rosemary Num: [id number] Spec Type: Surgical Subm Dr: Srinivasan Beaulieu MD Tissues: A Colon Biopsy (LEFT COLON BX) Procedures: HE Stain/2, Gross/Micro L4 Patient: Liliana Natarajan [id number] (Continued) Signed (signature on file) Anthony Weaver MD 10/27/20 1718 [facility] History and Physicalon 01-15 HIM IP Note OR Brakes Inspector [facility] Surgical Pathologyon 017 Surgical Pathology (NOTE)[id number] Y LABORATORIESCONSULTING PATHOLOGISTS CORPORATIONANATOMIC [id number] [place], [place] [id number] Fax: SURGICAL PATHOLOGY CONSULTATIONPatient Name: Amy NATARAJAN Rec: [id number] Number: [id number]: 01/15/2017Received: 01/15/2017Reported: 01/16/2017 08:36-- Diagnosis --INTRAOCULAR LENS: GROSS ONLY.Kan Allred M.D.Electronically Signed Out tb04/16/11Clinical InformationPre-op Diagnosis: DISLOCATED IOL LEFT EYE Operative Findings: IOL GROSS ONLYOperation Performed: VITRECTOMY 25 GAUGE LENSECTOMY, KENALOGINJECTIONSource of Specimen1: IOL - GROSS ONLYGross Description LILIANA NATARAJAN IOL GROSS ONLY 0.6 cm long x < 0.1 cm in diameterclear translucent lens with two tags. Gross only. [facility] Vital Signs Date Time Vital Sign Value Performing Clinician Facility 11-26-2022 09:45-0400 Body height 172.72 cm Chevy Robins Other [facility] Other 11-26-2022 09:45-0400 Body mass index (BMI) [Ratio] 24.63 kg/m2 Chevy Robins Other [facility] Other 11-26-2022 09:45-0400 Body weight 73.48 kg Chevy Julienne Other [facility] Other 11-26-2022 09:45-0400 Diastolic blood pressure 61 mm[Hg] Chevy Carlos Ay Other [facility] Other 11-26-2022 09:45-0400 Systolic blood pressure 135 mm[Hg] Chevy Straussy Other [facility] Other 12-27-2021 14:00-0400 Body height 172.72 cm Chevy Conniewilmaotilia Other [facility] Other 12-27-2021 14:00-0400 Body mass index (BMI) [Ratio] 28.43 kg/m2 Chevy Robins Other [facility] Other 12-27-2021 14:00-0400 Body weight 84.82 kg Chevy Julienne Other [facility] Other 12-27-2021 14:00-0400 Diastolic blood pressure 75 mm[Hg] Chevy Conniewilmay Other [facility] Other 12-27-2021 14:00-0400 Systolic blood pressure 171 mm[Hg] Chevy Robins Other [facility] Other 11-27-2021 09:51-0400 Diastolic blood pressure 71 mm[Hg] Darien REYNOLDS [facility] 11-27-2021 09:51-0400 Mean blood pressure 97 mm[Hg] Darien REYNOLDS [facility] 11-27-2021 09:51-0400 Respiratory rate 49 /min [facility] 11-27-2021 09:51-0400 Systolic blood pressure 150 mm[Hg] Darien COOK [facility] 11-27-2021 09:39-0400 Blood Pressure Location [facility] 11-27-2021 09:39-0400 Diastolic blood pressure 67 mm[Hg] [facility] 11-27-2021 09:39-0400 Heart rate 45 /min [facility] 11-27-2021 09:39-0400 Systolic blood pressure 168 mm[Hg] [facility] 12-27-2020 14:00-0400 Body height 172.72 cm Chevy Robins Other [facility] Other 12-27-2020 14:00-0400 Body mass index (BMI) [Ratio] 28.13 kg/m2 Chevy Robins Other [facility] Other 12-27-2020 14:00-0400 Body weight 83.92 kg Chevy Robins Other [facility] Other Encounters Encounter Date Encounter Type Care Provider Facility Start: 11-11-2023 ambulatory Darien REYNOLDS Facility :[facility] Start: 07-07-2023 End: 07-07-2023 ambulatory [facility] Start: 06-16-2023 End: 06-17-2023 ambulatory Darien REYNOLDS Facility:[facility] Start: 06-16-2023 End: 06-16-2023 Patient encounter procedure Darien Caitie REYNOLDS [facility] Start: 12-13-2022 End: 12-13-2022 ambulatory [facility] Start: 11-26-2022 End: 11-26-2022 ambulatory Chevy Robins Other [facility] Other Start: 11-26-2022 Patient encounter procedure Chevy [...] 12-27-2021 End: 12-27-2021 ambulatory Chevy Robins Other [facility] Other Start: 12-27-2021 Patient encounter procedure Chevy Robins [facility] Start: 12-26-2021 End: 12-27-[address] ERIN BERG . Facility:[facility] Start: 11-27-2021 End: 11-27-2021 Patient encounter procedure Darien REYNOLDS [facility] Start: 10-18-2021 End: 10-26-[address] DOCTOR [...] Start: 01-21-2017 End: 01-22-2017 Ambulatory DEFAULT PHYSICIAN Facility:[facility] Start: 01-17-2017 End: 01-18-2017 Ambulatory DEFAULT PHYSICIAN Facility:[facility] Start: 01-15-2017 End: 01-15-2017 Ambulatory [facility] Procedures Date Procedure Procedure Detail Performing Clinician Start: 07-07-2023 Follow-up visit Follow-up ARNEL KELLOGG Start: 02-05-[address] CHRIS BERG . Comment on above: Performed By: #### C PEPT #### [facility] [address] [address] [address] Deepika Terrell Start: 12-04-2020 Transurethral water [...] vaccine recombinant Darien REYNOLDS [facility] 02-24-2023 zoster vaccine recombinant Darien REYNOLDS [facility] 01-27-2023 influenza virus vaccine, unspecified formulation [facility] 06-02-2022 influenza virus vaccine, unspecified formulation [facility] 06-02-2022 pneumococcal conjuga te vaccine, 13 valent Darien REYNOLDS [facility] 01-21-2022 influenza virus vaccine, unspecified formulation [facility] 09-27-2021 SARS-CoV-2 (COVID-19 ) mRNA-1273 vaccine [facility] 04-24-2021 SARS-CoV-2 (COVID-19 ) mRNA BNT-162b2 vax Darien REYNOLDS [facility] 01-25-2021 influenza virus vaccine, unspecified formulation Darien REYNOLDS [facility] 06-06-2020 SARS-CoV-2 (COVID-19 ) mRNA-1273 vaccine [facility] 05-09-2020 SARS-CoV-2 (COVID-19 ) mRNA-1273 vaccine [facility] 04-11-2020 SARS-CoV-2 (COVID-19 ) mRNA-1273 vaccine [facility] 01-14-2020 influenza virus vaccine, unspecified formulation Darien REYNOLDS [facility] 01-06-2020 influenza virus vaccine, unspecified formulation Darien REYNOLDS [facility] 01-28-2018 influenza virus vaccine, unspecified formulation Darien REYNOLDS [facility] 02-05-2017 pneumococcal conjuga te vaccine, 13 valent Darien REYNOLDS [facility] 01-27-2017 influenza virus vaccine, unspecified formulation Darien REYNOLDS [facility] 01-13-2017 influenza virus vaccine, unspecified formulation Darien REYNOLDS [facility] 01-06-2017 influenza virus vaccine, unspecified formulation Darien REYNOLDS [facility] 01-03-2016 influenza virus vaccine, unspecified formulation Darien REYNOLDS [facility] 01-06-2015 influenza virus vaccine, unspecified formulation Darien REYNOLDS [facility] 02-03-2014 influenza virus vaccine, unspecified formulation Darien REYNOLDS [facility] 01-25-2009 influenza, whole Darien BASSO K [facility] Payers Date Payer Category Payer Unknown [id number] 2017 Medicare [id number] 1959 Medicare [id number] 2.1 [id number] 1959 Self-pay 1959 Unknown [id number] 1935 Unknown [id number] 2.16.84 0.1.980416.3.579.2.593 1935 Unknown [id number] 2.16.84 0.1.749743.3.579.2.593 1935 Unknown [id number] 2.16.84 0.1.881572.3.579.2.593 1935 Unknown [id number] 2.16.84 0.1.344793.3.579.2.593 1935 Unknown [id number] 2.16.84 0.1.947194.3.579.2.593 1935 Unknown [id number] 2.16.84 0.1.725746.3.579.2.593 1935 Unknown [id number] 2.16.84 0.1.327992.3.579.2.593 1935 Unknown [id number] 2.16.84 0.1.364068.3.579.2.593 1935 Unknown [id number] 2.16.84 0.1.785383.3.579.2.593 1935 Unknown [id number] 2.16.84 0.1.226636.3.579.2.593 1935 Unknown [id number] 2.16.84 0.1.873361.3.579.2.593 1935 Unknown [id number] 2.16.84 0.1.939454.3.579.2.593 1935 Unknown [id number] 2.16.84 0.1.998919.3.579.2.593 1935 Unknown [id number] 2.16.84 0.1.999348.3.579.2.593 1935 Unknown [id number] 2.16.84 0.1.485464.3.579.2.593 1935 Unknown [id number] 2.16.84 0.1.487395.3.579.2.593 1935 Unknown [id number] 2.16.8 40.1.394001.3.579.2.727 1935 Unknown [id number] 2.16.8 40.1.199393.3.579.2.727 1935 Unknown [id number] 2.16.8 40.1.225767.3.579.2.727 Unknown Unknown [id number] 2.16.8 40.1.420946.19 Unknown [id number] 2.16.84 0.1.432249.3.579.2.593 Unknown [id number] 2.16.84 0.1.994575.3.579.2.593 Social History Date Type Detail Facility Sex Assigned At [facility] Other Start: 11-27-2021 End: 06-11-2022 Tobacco smoking status Never smoked tobacco (finding) [facility] Tobacco smoking status Never [facility] Functional Status Date Assessment Result Facility 11-27-2021 Functional Status N/A [facility] Clinical Notes 12-27-2020 to 07-07-2023 Note Date [...] 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 [facility] 12-13-2022 Note Patient here for 6 m o follow up hypertension and bradycardia. Says Dr. Berg stopped his furosemide about 1 month ago. Denies increased in LE edema and SOB. Denies chest pain and lightheadedness. Doing well. [facility] 12-13-2022 Note Cardiology Follow Up Progress [...] report -Sinus Bradycardia (more content not included)... [facility] 11-26-2022 Evaluation note Encounter Date Diagnosis Assessment Notes Nov, Microscopic colitis (ICD-10 - K52.89) Patient to use OTC probiotic and OTC Fiber supplement to help normalize the stools. Patient to finish remaining 2 weeks of medication and call if diarrhea returns after stopping the medication. RTO in 1 year. [facility] Other 09-22-2022 Evaluation note* Encounter Date Diagnosis Assessment Notes Treatment Notes Treatment Clinical Notes Dec, Microscopic colitis (ICD-10 - K52.89) REASSURANCE PT ADVISED TO ADD FIBER SUPPLEMENT TO DIET F/U PRN [facility] Other 08-23-2022 Hospital Discharge instructions Patient Education [...] urethra. Follow these instructions at home: Take xpld-[id number] and prescription medicines only as told by [...] 03/24/2006 Document Revised: 02/16/2019 Document Reviewed: 04/28/2017 [email or web address] Patient Education [employer] Charge. Follow Up Care 05/30/2021 14:56:10 With:Darien REYNOLDS MD, URL Address: [facility] [employer] [facility] [address] [place], [place] [address]- When:6 months [facility] 09-22-2021 Evaluation note* Encounter Date Diagnosis Assessment Notes Treatment Notes Treatment Clinical Notes Dec, Microscopic colitis (ICD-10 - K52.89) Colitis home care material was printed will taper the budesonide at this time patient to finish the 9 mg taper then move to the 6 mg taper. [facility] Other Evaluation + Plan note Future Appointments Appointment Date:06/11/2022 09:30:00 AM Scheduled Provider:Darien REYNOLDS MD Location:[facility] Appointment Type:URO Office Visit [facility] History general Narrative - Reported* Type [...] 1998 Hospitalization History SEE ABOVE SURGICAL HX [facility] Other History general Narrative - Reported* Type [...] ABOVE SURGICAL HX Hospitalization History A1c down- [facility] ford 05/2022 [facility] Other Hospital course Narrative No data available for this section [facility] Discharge instructions No data available for this section [facility] [place] Progress note No data available for this section [facility] [employer] Summary Purpose Family History No Family History [...] section and content) DATE CREATED AUTHOR 09/30/2017 [facility] DATE CREATED AUTHOR AUTHOR'S ORGANIZ ATION 09/30/2017 [facility] DATE CREATED AUTHOR AUTHOR'S ORGANIZ ATION 10/30/2020 [facility] DATE CREATED AUTHOR AUTHOR'S ORGANIZ ATION 08/19/2022 [facility] DATE CREATED AUTHOR AUTHOR'S ORGANIZ ATION 08/10/2023 [facility] DATE CREATED AUTHOR AUTHOR'S ORGANJANIYA ATION 09/10/[address] [facility] REASON FOR VISIT (unrecogniz ed section [...] content) Personnel Name: Erin Berg MD Address: [address] [place] [address] Personnel Name: Erin Berg MD Address: Address: [address] [place] [address] FOR RECORDS PERTAINING TO PATIENTS WHO ARE [...] BE BASED ON THE PRIMARY CLINICAL RECORDS. [employer] provides no warranty or guarantee of the accuracy or completeness of information in this document.
--- NOTE | 2023-12-28 16:56 | XR_ITS ---
The [address] [address] Patient Name: LILIANA BENITO MRN: [id number] date: 1935 Sex: M Assigned Patient Location: ER Current Patient Location: ED.MAIN Accession/Order Number: [id number] Exam Date: 12/28/2023 17:15 Report Date: 12/28/2023 17:45 At the request of: YAMINI RUTHERFORD Procedure: XR chest 1V EXAM: XR chest 1V HISTORY: Cough, weak COMPARISON: 01/23/2021. TECHNIQUE: AP upright chest x-ray. FINDINGS: Lungs clear without infiltrate or edema. Normal heart size and mediastinal contour for technique. No pleural effusion or pneumothorax. XR/XR chest 1V IMPRESSION: Negative chest x-ray, no acute findings. Electronically authenticated by: ANGEL CLINTON Date: 12/28/2023 17:45
--- NOTE | 2023-12-28 17:00 | ED_ITS ---
HPI HPI - General Adult General Chief complaint: Upper Respiratory Infection Stated complaint: General Weekness Time Seen by Provider: 12/28/23 16:52 Source: patient Mode of arrival: walk-in History of Present Illness HPI narrative: 88-year-old male presents for weakness and shaking and cough. It started this afternoon, a few hours ago. He has not had a known fever and he has had no vomiting. Appetite has been good. The cough is nonproductive. No dysuria or hematuria or complaints of abdominal pain. Related Data Allergies Allergy/AdvReac Type Severity Reaction Status Date / Time No Known Drug Allergies Allergy Verified 12/28/23 16:52 Opioid HPI Opioid Management Most Recent Opioid Data: No Data to Display Review of Systems ROS Narrative A ten point review of systems is negative except as noted above. PFSH PFSH Social History Little interest or pleasure in doing things: not at all Feeling down, depressed, or hopeless: not at all Exam Narrative Exam Narrative: Nurses note and vital signs reviewed and patient is not hypoxic. General: The patient appears in no apparent distress. Skin: Warm, dry, no pallor noted. There is no rash noted. Head: Normocephalic, atraumatic Eye: Normal conjunctiva, no drainage Ears, Nose, Mouth, and Throat: oral mucosa is moist. Nares patent. Cardiovascular: Regular Rate and Rhythm, not tachycardic Respiratory: Patient is in no distress, no accessory muscle use, lungs are clear to auscultation, no wheezing, rales or rhonchi Back: non-tender GI: no tenderness to palpation, no masses appreciated. No rebound, guarding, or rigidity noted. : Perineum shows no erythema or rash Musculoskeletal: The patient has no evidence of calf tenderness, no pitting edema, symmetrical pulses noted bilaterally Neurological: A&O x4, normal speech, he is tremorous Psychiatric: Cooperative Constitutional Vital Signs, click to edit/add: Last Vital Signs Temp 99.9 F 12/28/23 18:02 Pulse 93 H 12/28/23 16:50 Resp 16 12/28/23 18:02 BP 123/47 L 12/28/23 18:02 Pulse Ox 94 L 12/28/23 18:02 O2 Del Method Room Air 12/28/23 16:50 Course Vital Signs Vital signs: Vital Signs Temperature 98.5 F 12/28/23 16:50 Pulse Rate 93 H 12/28/23 16:50 Respiratory Rate 20 12/28/23 16:50 Blood Pressure 148/64 H 12/28/23 16:50 Pulse Oximetry 90 L 12/28/23 16:50 Oxygen Delivery Method Room Air 12/28/23 16:50 Temperature 99.9 F 12/28/23 18:02 Pulse Rate 93 H 12/28/23 16:50 Respiratory Rate 16 12/28/23 18:02 Blood Pressure 123/47 L 12/28/23 18:02 Pulse Oximetry 94 L 12/28/23 18:02 Oxygen Delivery Method Room Air 12/28/23 16:50 Medical Decision Making MDM Narrative Medical decision making narrative: ButThe patient was tremorous upon arrival and his WBC 17,000. He does not have a fever here has these noted findings. No evidence of UTI or pneumonia or COVID. He will be admitted for observation. Differential Diagnosis Differential Diagnosis: UTI, pneumonia, COVID Lab Data Lab results reviewed: Yes I reviewed the patient's lab results Labs: Lab Results 12/28/23 12/28/23 12/28/23 Range/Units 17:05 17:10 18:15 WBC 17.8 H (4.0-11.0) 10^3/uL RBC 4.05 L (4.70-6.10) 10^6/uL Hgb 12.1 L (14.0-18.0) g/dL Hct 37.1 L (42.0-54.0) % MCV 91.6 (80.0-94.0) fL MCH 29.9 (25.9-34.0) pg MCHC 32.6 (29.9-35.2) g/dL RDW 14.9 (11.0-15.0) % Plt Count 257 (150-450) 10^3/uL MPV 10.7 (9.5-13.5) fL Seg Neuts % (Manual) 87.0 H (43.0-75.0) Lymphocytes % (Manual) 4.0 L (20.5-60.0) % Monocytes % (Manual) 8.0 (1.7-12.0) % Eosinophils % (Manual) 1.0 (0.9-7.0) % Basophils % (Manual) 0.0 L (0.2-2.0) % Neutrophils # (Manual) 15.48 H (1.4-6.5) 10^3/uL Lymphocytes # (Manual) 0.71 L (1.20-3.80) 10^3/uL Monocytes # (Manual) 1.42 H (0.30-0.80) 10^3/uL Eosinophils # (Manual) 0.17 (0.00-0.70) 10^3/uL Basophils # (Manual) 0.00 (0.00-0.10) 10^3/uL Sodium 141 (136-145) mmol/L Potassium 4.0 (3.5-5.1) mmol/L Chloride 109 H (98-107) mmol/L Carbon Dioxide 16.0 L (21.0-32.0) mmol/L Anion Gap 20.0 BUN 26.0 H (7.0-18.0) mg/dL Creatinine 1.46 H (0.70-1.30) mg/dL Est GFR ( Amer) 55 L (>=60) Est GFR (Non-Af Amer) 46 L (>=60) BUN/Creatinine Ratio 17.8 Glucose 163 H (74-106) mg/dL Calcium 8.8 (8.5-10.1) mg/dL Urine Color Dk. yellow (YELLOW) Urine Clarity Clear (CLEAR) Urine pH 5.5 (5.0-9.0) Ur Specific [place] 1.025 (1.005-1.025) Urine Protein Negative (NEG/TRACE) mg/dL Urine Glucose (UA) Negative (NEGATIVE) mg/dL Urine Ketones Negative (NEGATIVE) mg/dL Urine Occult Blood Negative (NEGATIVE) Urine Nitrite Negative (NEGATIVE) Urine Bilirubin Negative (NEGATIVE) Urine Urobilinogen 0.2 (0.2-1.0) EU/dL Ur Leukocyte Esterase Negative (NEGATIVE) Urine RBC 0-2 (0-2) #/HPF Urine WBC 0-2 A (NONE SEEN) #/HPF Ur Squamous Epith Cells None seen (NONE/RARE) #/LPF Urine Crystals None seen (None Seen) #/HPF Urine Bacteria Trace A (NONE SEEN) #/HPF Urine Casts Seen A (NONE SEEN) #/LPF Hyaline Casts Rare Urine Mucus None seen (NONE SEEN) SARS-CoV-2 Ag (CV2AG) Negative (NEGATIVE) Imaging Data Chest x-ray: Radiologist's impression: ITS Impressions Chest X-Ray 12/28/23 16:56 IMPRESSION: Negative chest x-ray, no acute findings. Electronically authenticated by: ANGEL CLINTON Date: 12/28/2023 17:45 Discharge Plan Discharge Chief Complaint: Upper Respiratory Infection Clinical Impression: Generalized weakness Patient Disposition: Admitted as Observation Time of Disposition Decision: 18:56 Condition: Good
[2023-12-28 17:18] LABS: Hematocrit 37.1 % (42.0-54.0); Hemoglobin 12.1 g/dL (14.0-18.0); Mean Corpuscular HGB Conc 32.6 g/dL (29.9-35.2); Mean Corpuscular Hemoglobin 29.9 pg (25.9-34.0); Mean Corpuscular Volume 91.6 fL (80.0-94.0); Mean Platelet Volume 10.7 fL (9.5-13.5); Platelet Count 257 10^3/uL (150-450); Red Blood Count 4.05 10^6/uL (4.70-6.10); Red Cell Distribution Width 14.9 % (11.0-15.0); White Blood Count 17.8 10^3/uL (4.0-11.0)
[2023-12-28] MEDS: 0.9 % SODIUM CHLORIDE 1,000 ML 200 ML IV ×2 (17:21→21:38)
[2023-12-28 17:30] LABS: Internal Control Within Normal Limits; SARS-CoV-2 Ag NEGATIVE (NEGATIVE)
[2023-12-28 17:40] LABS: Eosinophils Absolute Manual 0.17 10^3/uL (0.00-0.70); Lymphocytes Absolute Manual 0.71 10^3/uL (1.20-3.80); Monocytes Absolute Manual 1.42 10^3/uL (0.30-0.80); Segmented Neut Absolute Manual 15.48 10^3/uL (1.4-6.5)
[2023-12-28 17:49] LABS: BUN Creatinine Ratio 17.8; Calcium 8.8 mg/dL (8.5-10.1); Chloride 109 mmol/L (98-107); Estimated GFR (African America 55 (>=60); Estimated GFR (Non-African Ame 46 (>=60); Glucose 163 mg/dL (74-106); Sodium 141 mmol/L (136-145)
[2023-12-28 18:02] VITALS: BP 123/47; TEMP 37.7; O2SAT 94
[2023-12-28 18:44] LABS: Bilirubin Urine NEGATIVE (NEGATIVE); Blood Urine NEGATIVE (NEGATIVE); Clarity Urine CLEAR (CLEAR); Color Urine DK. YELLOW (YELLOW); Glucose Urine UA NEGATIVE (NEGATIVE); Ketones Urine NEGATIVE (NEGATIVE); Leukocyte Esterase Urine NEGATIVE (NEGATIVE); Nitrite Urine NEGATIVE (NEGATIVE); Protein Urine NEGATIVE (NEG/TRACE); Specific Gravity Urine 1.025 (1.005-1.025); Urobilinogen Urine 0.2 EU/dL (0.2-1.0); pH Urine 5.5 (5.0-9.0)
[2023-12-28 18:52] LABS: RBC Urine 0-2 #/HPF (0-2); WBC Urine 0-2 #/HPF (NONE SEEN)
[2023-12-28 18:53] LABS: Bacteria Urine TRACE #/HPF (NONE SEEN); Cast Seen? SEEN #/LPF (NONE SEEN); Crystals Seen? None Seen #/HPF (None Seen); Hyaline Casts Urine RARE; Mucus Urine NONE SEEN (NONE SEEN); Squamous Epithelial Cell Urine NONE SEEN #/LPF (NONE/RARE)
--- OUTSIDE RECORDS SUMMARY | 2023-12-28 19:32 | XMS_ITS | CCD ---
Author Organization [facility] CliniSyoh Care Team Providers Care Retoucher Photoengraving Name Role Phone CHET NESBITT Unavailable Unavailable [...] KHAN Primary Care Unavailable HOY ., DR HKAN Attending Unavailable HOY ., DR KHAN Admitting [...] Medication Allergies] Propensity to adverse reactions (disorder) [facility] Repository (1 source) Adhesive agent; Translations: [ADHESIVE] Propensity to adverse reactions to drug (disorder) 7 [facility] Repository Medications Current Medications Medication Drug [...] Daily, # 30 tab(s), Refills(s) 11, Pharmacy: [id number], 172, cm, 06/11/22 9:50:00 [...] Start: 11-27-2021 take 1 capsule by mo [facility] twice daily tamsulosin 0.4 mg Cap 0.4 mg = 1 cap(s), Oral, BID Start Date: 11/27/21 Status: Ordered tiZANidine 4 mg oral tablet (4 sources) Central alpha-2 Adrenergic Agonist Start: 11-27-2021 take 1 tablet by mouth every eight hours tiZANidine 4 mg Tab 4 mg = 1 tab(s), Oral, q8hr Start Date: 11/27/21 Status: Ordered take [address] [facility] every twenty-four hours tiZANidine HCl 4 MG 1 tablet as needed Orally daily Active vitamin a 41888 unt oral capsule (2 sources) Vitamin A [...] 3 Chronic Other aftercare (1 source) Other chcf (current) drug therapy; Translations: [OTH NURSING HOME CURRENT DRUG THERAPY] Onset: 3 Episodic Other [...] Range Facility Office Visiton 07-07-2023 Follow-up visit [id number] Caprice Natarajan E 1935 M Date Provider Department Center 07/07/2023 [id number] ACOSTA Family History Problem Relation Age of Onset Diabetes Father Hypertension Father Family Status - Relation Status Age at Father Level of Service:88064 [place] OFFICE/OUTPATIENT ESTABLISHED LOW MDM 20 MIN Reason for Visit and Comments: Follow-up [072443] - 6 month follow up Normal [facility] Office Visiton 12-13-2022 Follow-up visit [id number] Caprice Natarajan E 1935 M Date Provider Department Center 12/13/2022 [id number] ACOSTA Family History Problem Relation Age of Onset Diabetes Father Hypertension Father Family Status - Relation Status Age at Father Level of Service:35524 [place] OFFICE/OUTPATIENT ESTABLISHED LOW MDM 20-29 MIN Normal [facility] STOOL CULTUREon 08-18-2022 Campylobacter Culture Final report Normal Comment on above: Performed By: #### C XSTOOL #### [facility] [address] [place] [address] Dr. Deepika Terrell E coli Shiga Toxin EIA Negative Normal Negative Comment on above: Performed By: #### C XSTOOL #### [facility] [address] [address] [address] Deepika Terrell Result 1 Comment Normal [facility] Comment on above: Result Comment: No S almonella or Shigella recovered. Performed By: #### C XSTOOL #### [facility] [address] [address] [address] Deepika Terrell Result Comment: No C ampylobacter species isolated. Salmonella/Shigell a Screen Final report Normal Comment on above: Performed By: #### C XSTOOL #### [facility] [address] [address] [address] Deepika Garcia DIFF PCRon 08-13-2022 C. DIFFICILE PCR Negative Normal NEGATIVE [facility] Comment on above: Performed By: #### B MP #### [facility] [address], [place] [address] Dr. Deepika Terrell Consultation Noteon 08-14-19 23 Consultation Note [id number]:127 Normal [facility] OCC BLD IMMUNO SCREENon OCCULT BLOOD Negative Normal NEGATIVE Comment on above: Performed By: #### B MP #### [facility] [address] [address] [address] Deepika Terrell RAD - MISCon 08-13-2022 RAD - MISC [id number]:127 Normal [facility] Physician Referralon 023 Physician Referral [id number]:127 Normal [facility] NM HEPATOBILIARY SCAN W EFon 08-09-2022 NM [...] DAVID ESPINAL Date: 2022-08-09 10:42 Normal [facility] US SINGLE QUAD RT UPPERon [...] KURT JOE Date: 2022-08-08 07:42 Normal [facility] GLYCOHEMOGLOBIN A1Con 2022 ADA RECOMMENDATION SEE BELOW Normal [facility] Comment on above: Result Comment: ADA RECOMMENDED LIMIT 4.0 - 6.0 ADA THERAPEUTIC TARGET < 7.0 ACTION SUGGESTED > 7.0 Performed By: #### I NSULT #### [facility] [address] [place] [address] Dr. Deepika Terrell Glucose [Mass/Vol] 117 mg/dL Normal [facility] Comment on above: Performed By: #### I NSULT #### [facility] [address] [place] [address] Dr. Deepika Terrell HbA1c (Bld) [Mass fraction] 5.7 % Normal 4.5-6.2 [facility] Comment on above: Performed By: #### I NSULT #### [facility] [address] [place] [address] ABD/PELVIS WO CONon [...] MARK LEE Date: 2022-07-20 07:40 Normal [facility] CBC AUTO DIFFon 07-19-2022 BASO # 0.0 103/ul Normal 0.0-0.1 Comment on above: Performed By: #### C BC #### [facility] [address] [address] [address] Deepika Terrell Basophils/100 WBC (Bld) 0.3 % Normal 0.2-2.0 Comment on above: Performed By: #### C BC #### [facility] [address] [address] [address] Deepika Terrell EO # 0.3 103/ul Normal 0.0-0.7 [facility] Comment on above: Performed By: #### C BC #### [facility] [address] [address] [address] Deepika Terrell Eosinophils/100 WBC (Bld) 2.4 % Normal 0.9-7.0 [facility] Comment on above: Performed By: #### C BC #### [facility] [address] [address] [address] Deepika Terrell Erythrocyte distribution width (RBC) [Ratio] 14.8 % Normal 11.0-15.0 Comment on above: Performed By: #### C BC #### [facility] [address] [address] [address] Deepika Terrell Hematocrit (Bld) [Volume fraction] 33.8 % Critically low 42.0-54.0 Comment on above: Performed By: #### C BC #### [facility] [address] [address] [address] Deepika Terrell Hemoglobin (Bld) [Mass/Vol] 11.0 g/dL Critically low 14.0-18.0 Comment on above: Performed By: #### C BC #### [facility] [address] [place] [address] Dr. Deepika Terrell IG # 0.08 10e3/ul Critically high 0.00-0.03 [facility] Comment on above: Performed By: #### C BC #### [facility] [address] [place] [address] Dr. Deepika Terrell IG % 0.7 % Critically high 0.0-0.5 [facility] Comment on above: Performed By: #### C BC #### [facility] [address] [address] [address] Deepika Terrell LYMPH # 3.5 103/ul Normal 1.2-3.8 Comment on above: Performed By: #### C BC #### [facility] [address] [place] [address] Dr. Deepika Terrell Lymphocytes/100 WBC (Bld) 29.2 % Normal 20.5-60.0 Comment on above: Performed By: #### C BC #### [facility] [address] [place] [address] Dr. Deepika Terrell MANUAL DIFF REQ NO Normal [facility] Comment on above: Performed By: #### C BC #### [facility] [address] [place] [address] Dr. Deepika Terrell MCH (RBC) [Entitic mass] 29.4 pg Normal 25.9-34.0 Comment on above: Performed By: #### C BC #### [facility] [address] [address] [address] Deepika Terrell MCHC (RBC) [Mass/Vol] 32.5 g/dL Normal 29.9-35.2 [facility] Comment on above: Performed By: #### C BC #### [facility] [address] [address] [address] Deepika Terrell MCV (RBC) [Entitic vol] 90.4 fL Normal 80.0-94.0 Comment on above: Performed By: #### C BC #### [facility] [address] [address] [address] Deepika Terrell MONO # 0.7 103/ul Normal 0.3-0.8 Comment on above: Performed By: #### C BC #### [facility] [address] [place] [address] Dr. Deepika Terrell Monocytes/100 WBC (Bld) 6.1 % Normal 1.7-12.0 Comment on above: Performed By: #### C BC #### [facility] [address] [address] [address] Deepika Terrell NEUT # 7.3 103/ul Critically high 1.4-6.5 [facility] Comment on above: Performed By: #### C BC #### [facility] [address] [address] [address] Deepika Terrell Neutrophils/100 WBC (Bld) 61.3 % Normal 43.0-75.0 [facility] Comment on above: Performed By: #### C BC #### [facility] [address] [address] [address] Deepika Terrell Platelet mean volume (Bld) [Entitic vol] 10.8 fL Normal 9.5-13.5 [facility] Comment on above: Performed By: #### C BC #### [facility] [address] [address] [address] Deepika Terrell PLT 372 103/ul Normal 150-450 [facility] Comment on above: Performed By: #### C BC #### [facility] [address] [address] [address] Deepika Terrell RBC 3.74 106/ul Critically low 4.70-6.10 [facility] Comment on above: Performed By: #### C BC #### [facility] [address] [address] [address] Deepika Terrell WBC 11.9 103/ul Critically high 4.0-11.0 [facility] Comment on above: Performed By: #### C BC #### [facility] [address] [place] [address] Dr. Deepika Terrell PROF CHEM 8 (BAS METB)on Anion gap [Moles/Vol] 16.1 mmol/L Normal Comment on above: Performed By: #### I NSULT #### [facility] [address] [place] [address] Dr. Deepika Terrell Calcium [Mass/Vol] 9.0 mg/dL Normal 8.5-10.1 [facility] Comment on above: Performed By: #### I NSULT #### [facility] [address] [place] [address] Dr. Deepika Terrell Chloride [Moles/Vol] 108 mmol/L Critically high 98-107 Comment on above: Performed By: #### I NSULT #### [facility] [address] [place] [address] Dr. Deepika Terrell CO2 [Moles/Vol] 19.3 mmol/L Critically low 21.0-32.0 Comment on above: Performed By: #### I NSULT #### [facility] [address] [place] [address] Dr. Deepika Terrell Creatinine [Mass/Vol] 2.68 mg/dL Critically high 0.70-1.30 Comment on above: Performed By: #### I NSULT #### [facility] [address] [place] [address] Dr. Deepika Terrell EGFR-AF AFGHAN 27 mL/min/1.73m2 Critically low >=60 [facility] Comment on above: Performed By: #### I NSULT #### [facility] [address] [address] [address] Deepika Terrell EGFR-NON AF AFGHAN 23 mL/min/1.73m2 Critically low >=60 Comment on above: Performed By: #### I NSULT #### [facility] [address] [address] [address] Deepika Terrell Glucose [Mass/Vol] 138 mg/dL Critically high 74-106 [facility] Comment on above: Performed By: #### I NSULT #### [facility] [address] [address] [address] Deepika Terrell Potassium [Moles/Vol] 4.4 mmol/L Normal 3.5-5.1 Comment on above: Performed By: #### I NSULT #### [facility] [address] [place] [address] Dr. Deepika Terrell Sodium [Moles/Vol] 139 mmol/L Normal 136-145 [facility] Comment on above: Performed By: #### I NSULT #### [facility] [address] [address] [address] Deepika Terrell Urea nitrogen [Mass/Vol] 68.0 mg/dL Critically high 7.0-18.0 Comment on above: Performed By: #### I NSULT #### [facility] [address] [place] [address] Dr. Deepika Terrell Urea nitrogen/Creatinin e [Mass ratio] 25.4 mg/mg Normal Comment on above: Performed By: #### I NSULT #### [facility] [address] [address] [address] Deepika Terrell CA 19-9on 07-18-2022 CA 19-9 9 U/mL Normal 0-35 Comment on above: Result Comment: [facility] [employer] Electrochemiluminescence Immunoassay (ECLIA) . Values obtained with different assay methods or kits cannot be used interchangeably. Results cannot be interpreted as absolute evidence of the presence or absence of malignant disease. Performed By: #### B MP #### [facility] [address] [place] [address] Dr. Deepika Terrell CEAon 07-18-2022 CEA 3.1 ng/mL Normal 0.0-4.7 [facility] Comment on above: Result Comment: Nons mokers <3.9 Smokers <5.6 . [employer] Electrochemiluminescence Immunoassay (ECLIA) . Values obtained with different assay methods or kits cannot be used interchangeably. Results cannot be interpreted as absolute evidence of the presence or absence of malignant disease. Performed By: #### I NSULT #### [facility] [address] [place] [address] Dr. Deepika Terrell HELICOBACTER PYLORI AB IGMon 07-18-2022 H pylori, IgM Abs <9.0 Normal 0.0-8.9 [facility] Comment on above: Result Comment: Nega tive <9.0 Equivocal 9.0 - 11.0 Positive >11.0 . This test was developed and its performance characteristics determined by [employer]. It has not been cleared or approved by the Food and Drug Administration. Performed By: #### C PEPT #### [facility] [address] [place] [address] Dr. Deepika Terrell AMYLASEon 07-17-2022 Amylase [Catalytic activity/Vol] 38 U/L Normal 25-115 [facility] Comment on above: Performed By: #### C BC #### [facility] [address] [place] [address] Dr. Deepika Terrell CBC W MANUAL DIFFon 07-18-19 23 ATYPICAL LYMPH # Normal [facility] Comment on above: Performed By: #### E RUR #### [facility] [address] [place] [address] Dr. Deepika Terrell ATYPICAL LYMPH % Normal [facility] Comment on above: Performed By: #### E RUR #### [facility] [address] [place] [address] Dr. Deepika Terrell BAND # Normal 0.0-0.3 [facility] Comment on above: Performed By: #### E RUR #### [facility] [address] [place] [address] Dr. Deepika Terrell BAND % Normal 0-5 [facility] Comment on above: Performed By: #### E RUR #### [facility] [address] [address] [address] Deepika Terrell BASOM # 0.00 103/ul Normal 0.00-0.10 Comment on above: Performed By: #### E RUR #### [facility] [address] [place] [address] Dr. Deepika Terrell BASOM % 0.0 % Critically low 0.2-2.0 [facility] Comment on above: Performed By: #### E RUR #### [facility] [address] [place] [address] Dr. Deepika Terrell BLAST # Normal Comment on above: Performed By: #### E RUR #### [facility] [address] [place] [address] Dr. Deepika Terrell BLAST % Normal Comment on above: Performed By: #### E RUR #### [facility] [address] [place] [address] Dr. Deepika Terrell CORRECTED WBC Normal 4.0-11.0 [facility] Comment on above: Performed By: #### E RUR #### [facility] [address] [place] [address] Dr. Deepika Terrell EOS # 0.00 103/ul Normal 0.00-0.70 Comment on above: Performed By: #### E RUR #### [facility] [address] [place] [address] Dr. Deepika Terrell EOS% 0.0 % Critically low 0.9-7.0 [facility] Comment on above: Performed By: #### E RUR #### [facility] [address] [place] [address] Dr. Deepika Terrell HCT 35.9 % Critically low 42.0-54.0 [facility] Comment on above: Performed By: #### E RUR #### [facility] [address] [place] [address] Dr. Deepika Terrell HGB 11.6 g/dl Critically low 14.0-18.0 [facility] Comment on above: Performed By: #### E RUR #### [facility] [address] [place] [address] Dr. Deepika Terrell LYMPHM # 3.48 103/ul Normal 1.20-3.80 Comment on above: Performed By: #### E RUR #### [facility] [address] [place] [address] Dr. Deepika Terrell LYMPHM% 17.0 % Critically low 20.5-60.0 [facility] Comment on above: Performed By: #### E RUR #### [facility] [address] [place] [address] Dr. Deepika Terrell MCH 29.5 pg Normal 25.9-34.0 Comment on above: Performed By: #### E RUR #### [facility] [address] [place] [address] Dr. Deepika Terrell MCHC 32.3 g/dl Normal 29.9-35.2 Comment on above: Performed By: #### E RUR #### [facility] [address] [place] [address] Dr. Deepika Terrell MCV 91.3 fL Normal 80.0-94.0 Comment on above: Performed By: #### E RUR #### [facility] [address] [place] [address] Dr. Deepika Terrell METAMYELOCYTE # Normal [facility] Comment on above: Performed By: #### E RUR #### [facility] [address] [place] [address] Dr. Deepika Terrell METAMYELOCYTE % Normal [facility] Comment on above: Performed By: #### E RUR #### [facility] [address] [place] [address] Dr. Deepika Terrell MONOM# 1.23 103/ul Critically high 0.30-0.80 [facility] Comment on above: Performed By: #### E RUR #### [facility] [address] [place] [address] Dr. Deepika Terrell MONOM% 6.0 % Normal 1.7-12.0 Comment on above: Performed By: #### E RUR #### [facility] [address] [place] [address] Dr. Deepika Terrell MPV 10.8 fL Normal 9.5-13.5 Comment on above: Performed By: #### E RUR #### [facility] [address] [place] [address] Dr. Deepika Terrell MYELOCYTE # Normal Comment on above: Performed By: #### E RUR #### [facility] [address] [place] [address] Dr. Deepika Terrell MYELOCYTE % Normal Comment on above: Performed By: #### E RUR #### [facility] [address] [place] [address] Dr. Deepika Terrell NRBC Normal Comment on above: Performed By: #### E RUR #### [facility] [address] [place] [address] Dr. Deepika Terrell PLT 423 103/ul Normal 150-450 Comment on above: Performed By: #### E RUR #### [facility] [address] [place] [address] Dr. Deepika Terrell RBC 3.93 106/ul Critically low 4.70-6.10 [facility] Comment on above: Performed By: #### E RUR #### [facility] [address] [place] [address] Dr. Deepika Terrell RDW 14.7 % Normal 11.0-15.0 Comment on above: Performed By: #### E RUR #### [facility] [address] [place] [address] Dr. Deepika Terrell SEG # 15.79 103/ul Critically high 1.40-6.50 [facility] Comment on above: Performed By: #### E RUR #### [facility] [address] [place] [address] Dr. Deepika Terrell SEG % 77.0 % Critically high 43.0-75.0 [facility] Comment on above: Performed By: #### E RUR #### [facility] [address] [address] [address] Deepika Terrell WBC 20.5 103/ul Critically high 4.0-11.0 [facility] Comment on above: Performed By: #### E RUR #### [facility] [address] [address] [address] Deepika Terrell FREE THYROXINE INDEX T7on FTI 1.95 Normal 1.30-4.50 Comment on above: Performed By: #### C BC #### [facility] [address] [place] [address] Dr. Deepika Terrell T3U 39.0 % Normal 33.0-40.0 Comment on above: Performed By: #### C BC #### [facility] [address] [place] [address] Dr. Deepika Terrell T4 [Mass/Vol] 5.00 ug/dL Normal 4.50-12.10 [facility] Comment on above: Performed By: #### C BC #### [facility] [address] [place] [address] Dr. Deepika Terrell LIPASEon 07-17-2022 Lipase [Catalytic activity/Vol] 126.0 U/L Normal 73.0-393.0 Comment on above: Performed By: #### C BC #### [facility] [address] [place] [address] Dr. Deepika Terrell LIVER PROFILEon 07-17-2022 Albumin [Mass/Vol] 3.7 g/dL Normal 3.4-5.0 [facility] Comment on above: Performed By: #### C BC #### [facility] [address] [place] [address] Dr. Deepika Terrell Albumin/Globulin [Mass ratio] 1.0 {ratio} Normal Comment on above: Performed By: #### C BC #### [facility] [address] [place] [address] Dr. Deepika Terrell ALP [Catalytic activity/Vol] 82 U/L Normal 46-116 Comment on above: Performed By: #### C BC #### [facility] [address] [place] [address] Dr. Deepika Terrell ALT [Catalytic activity/Vol] 33 U/L Normal 16-63 Comment on above: Performed By: #### C BC #### [facility] [address] [place] [address] Dr. Deepika Terrell AST [Catalytic activity/Vol] 15 U/L Normal 15-37 Comment on above: Performed By: #### C BC #### [facility] [address] [place] [address] Dr. Deepika Terrell BILI, CONJUGATED 0.1 mg/dL Normal 0.0-0.2 [facility] Comment on above: Performed By: #### C BC #### [facility] [address] [place] [address] Dr. Deepika Terrell Bilirubin [Mass/Vol] 0.2 mg/dL Normal 0.2-1.0 Comment on above: Performed By: #### C BC #### [facility] [address] [place] [address] Dr. Deepika Terrell Globulin (S) [Mass/Vol] 3.6 g/dL Normal Comment on above: Performed By: #### C BC #### [facility] [address] [place] [address] Dr. Deepika Terrell Protein [Mass/Vol] 7.3 g/dL Normal 6.4-8.2 [facility] Comment on above: Performed By: #### C BC #### [facility] [address] [place] [address] Dr. Deepika Terrell PERIPHERAL SMEARon 3 Pathologist Cyto stain Nom (Cvx/Vag) [ID] DR. ANNIKA NIETO Normal [facility] Comment on above: Result Comment: revi ew of smear reveals n/n w/aniso. plts. normal. leukocytosis with neutrophili and absolute monocytosis. no atypical lymphs, immature blasts seen. these findings are suggestive of a reactive process. clinical correlation is recommend Performed By: #### P ERSMR #### [facility] [address] [place] [address] Dr. Deepika Terrell PROF CHEM 8 (BAS METB)on Anion gap [Moles/Vol] 19.0 mmol/L Normal Comment on above: Performed By: #### C BC #### [facility] [address] [place] [address] Dr. Deepika Terrell Calcium [Mass/Vol] 9.5 mg/dL Normal 8.5-10.1 [facility] Comment on above: Performed By: #### C BC #### [facility] [address] [place] [address] Dr. Deepika Terrell Chloride [Moles/Vol] 112 mmol/L Critically high 98-107 Comment on above: Performed By: #### C BC #### [facility] [address] [place] [address] Dr. Deepika Terrell CO2 [Moles/Vol] 19.4 mmol/L Critically low 21.0-32.0 Comment on above: Performed By: #### C BC #### [facility] [address] [place] [address] Dr. Deepika Terrell Creatinine [Mass/Vol] 2.51 mg/dL Critically high 0.70-1.30 Comment on above: Performed By: #### C BC #### [facility] [address] [place] [address] Dr. Deepika Terrell EGFR-AF AFGHAN 30 mL/min/1.73m2 Critically low >=60 Comment on above: Performed By: #### C BC #### [facility] [address] [place] [address] Dr. Deepika Terrell EGFR-NON AF AFGHAN 24 mL/min/1.73m2 Critically low >=60 Comment on above: Performed By: #### C BC #### [facility] [address] [address] [address] Deepika Terrell Glucose [Mass/Vol] 159 mg/dL Critically high 74-106 [facility] Comment on above: Performed By: #### C BC #### [facility] [address] [address] [address] Deepika Terrell Potassium [Moles/Vol] 4.4 mmol/L Normal 3.5-5.1 Comment on above: Performed By: #### C BC #### [facility] [address] [address] [address] Deepika Terrell Sodium [Moles/Vol] 146 mmol/L Critically high 136-145 [facility] Comment on above: Performed By: #### C BC #### [facility] [address] [place] [address] Dr. Deepika Terrell Urea nitrogen [Mass/Vol] 67.0 mg/dL Critically high 7.0-18.0 Comment on above: Performed By: #### C BC #### [facility] [address] [address] [address] Deepika Terrell Urea nitrogen/Creatinin e [Mass ratio] 26.7 mg/mg Normal Comment on above: Performed By: #### C BC #### [facility] [address] [place] [address] Dr. Deepika Terrell TSHon 07-17-2022 TSH 0.884 uIU/mL Normal 0.358-3.740 [facility] Comment on above: Performed By: #### C BC #### [facility] [address] [place] [address] Dr. Deepika Terrell INSULIN FREE AND TOTALon Free Insulin 22 uU/mL Critically high [facility] Comment on above: Result Comment: Refe rence Range: Pubertal Children and Adults (fasting): 0 - 17 Performed By: #### I NSULT #### [facility] [address] [place] [address] Dr. Deepika Terrell Total Insulin 22 uU/mL Normal [facility] Comment on above: Result Comment: Non- [...] developed and its performance characteristics determined by [employer]. It has not been cleared or approved by the Food and Drug Administration. Performed By: #### I NSULT #### [facility] [address] [place] [address] Dr. Deepika Terrell C-PEPTIDE, SERUMon 3 C-Peptide, Serum 7.7 ng/mL Critically high 1.1-4.4 [facility] Comment on above: Result Comment: C-Pe ptide reference interval is for fasting patients. Performed By: #### C PEPT #### [facility] [address] [place] [address] Dr. Deepika Terrell OVA AND PARASITE EXAMINATION on 06-04-2022 Ova + Parasite Exam Final report Normal Comment on above: Result Comment: Thes e results were obtained using wet preparation(s) and trichrome stained smear. This test does not include testing for Cryptosporidium parvum, Cyclospora, or Microsporidia. Performed By: #### B MP #### [facility] [address] [place] [address] Dr. Deepika Terrell Result 1 Comment Normal Comment on above: Result Comment: No o va, cysts, or parasites seen. . One negative specimen does not rule out the possibility of a parasitic infection. Performed By: #### B MP #### [facility] [address] [place] [address] Dr. Deepika Terrell CBC AUTO DIFFon 06-02-2022 BASO # 0.0 103/ul Normal 0.0-0.1 Comment on above: Performed By: #### I NSULT #### [facility] [address] [place] [address] Dr. Deepika Terrell Basophils/100 WBC (Bld) 0.4 % Normal 0.2-2.0 Comment on above: Performed By: #### I NSULT #### [facility] [address] [place] [address] Dr. Deepika Terrell EO # 0.4 103/ul Normal 0.0-0.7 Comment on above: Performed By: #### I NSULT #### [facility] [address] [address] [address] Deepika Terrell Eosinophils/100 WBC (Bld) 3.3 % Normal 0.9-7.0 Comment on above: Performed By: #### I NSULT #### [facility] [address] [place] [address] Dr. Deepika Terrell Erythrocyte distribution width (RBC) [Ratio] 14.6 % Normal 11.0-15.0 Comment on above: Performed By: #### I NSULT #### [facility] [address] [place] [address] Dr. Deepika Terrell Hematocrit (Bld) [Volume fraction] 29.8 % Critically low 42.0-54.0 Comment on above: Performed By: #### I NSULT #### [facility] [address] [place] [address] Dr. Deepika Terrell Hemoglobin (Bld) [Mass/Vol] 9.8 g/dL Critically low 14.0-18.0 [facility] Comment on above: Performed By: #### I NSULT #### [facility] [address] [place] [address] Dr. Deepika Terrell IG # 0.05 10e3/ul Critically high 0.00-0.03 [facility] Comment on above: Performed By: #### I NSULT #### [facility] [address] [place] [address] Dr. Deepika Terrell IG % 0.5 % Normal 0.0-0.5 [facility] Comment on above: Performed By: #### I NSULT #### [facility] [address] [address] [address] Deepika Terrell LYMPH # 1.9 103/ul Normal 1.2-3.8 [facility] Comment on above: Performed By: #### I NSULT #### [facility] [address] [address] [address] Deepika Terrell Lymphocytes/100 WBC (Bld) 17.3 % Critically low 20.5-60.0 [facility] Comment on above: Performed By: #### I NSULT #### [facility] [address] [address] [address] Deepika Terrell MANUAL DIFF REQ NO Normal [facility] Comment on above: Performed By: #### I NSULT #### [facility] [address] [place] [address] Dr. Deepika Terrell MCH (RBC) [Entitic mass] 29.9 pg Normal 25.9-34.0 [facility] Comment on above: Performed By: #### I NSULT #### [facility] [address] [place] [address] Dr. Deepika Terrell MCHC (RBC) [Mass/Vol] 32.9 g/dL Normal 29.9-35.2 [facility] Comment on above: Performed By: #### I NSULT #### [facility] [address] [place] [address] Dr. Deepika Terrell MCV (RBC) [Entitic vol] 90.9 fL Normal 80.0-94.0 [facility] Comment on above: Performed By: #### I NSULT #### [facility] [address] [place] [address] Dr. Deepika Terrell MONO # 0.8 103/ul Normal 0.3-0.8 [facility] Comment on above: Performed By: #### I NSULT #### [facility] [address] [place] [address] Dr. Deepika Terrell Monocytes/100 WBC (Bld) 7.4 % Normal 1.7-12.0 [facility] Comment on above: Performed By: #### I NSULT #### [facility] [address] [address] [address] Deepika Terrell NEUT # 7.9 103/ul Critically high 1.4-6.5 [facility] Comment on above: Performed By: #### I NSULT #### [facility] [address] [place] [address] Dr. Deepika Terrell Neutrophils/100 WBC (Bld) 71.1 % Normal 43.0-75.0 [facility] Comment on above: Performed By: #### I NSULT #### [facility] [address] [place] [address] Dr. Deepika Terrell Platelet mean volume (Bld) [Entitic vol] 10.7 fL Normal 9.5-13.5 [facility] Comment on above: Performed By: #### I NSULT #### [facility] [address] [place] [address] Dr. Deepika Terrell PLT 295 103/ul Normal 150-450 [facility] Comment on above: Performed By: #### I NSULT #### [facility] [address] [place] [address] Dr. Deepika Terrell RBC 3.28 106/ul Critically low 4.70-6.10 [facility] Comment on above: Performed By: #### I NSULT #### [facility] [address] [place] [address] Dr. Deepika Terrell WBC 11.1 103/ul Critically high 4.0-11.0 [facility] Comment on above: Performed By: #### I NSULT #### [facility] [address] [place] [address] ABD/PELV W CONon [...] YANIV DACOSTA Date: 2022-06-01 22:50 Normal [facility] Covid-19 PCR (CVDTB)on 05-09 SARS-CoV-2 (COVID-19) RNA DANICA+probe Ql (Unsp spec) Not detected Normal NOT DETECTED [facility] Comment on above: Result Comment: [...] for this test is supported by the [place] of Health and Human Service's declaration that [...] used). Performed By: #### I NSULT #### [facility] [address] [place] [address] Dr. Deepika Terrell ER URINE PROFILEon 3 Bilirubin Ql (U) Negative Normal NEGATIVE [facility] Comment on above: Performed By: #### E RUR #### [facility] [address] [place] [address] Dr. Deepika Terrell Clarity (U) CLEAR Normal CLEAR [facility] Comment on above: Performed By: #### E RUR #### [facility] [address] [place] [address] Dr. Deepika Terrell Color (U) LT. YELLOW Normal YELLOW Comment on above: Performed By: #### E RUR #### [facility] [address] [place] [address] Dr. Deepika Terrell ERUAHD A micrscopic examina tion will be performed if indicated. Normal [facility] Comment on above: Performed By: #### E RUR #### [facility] [address] [place] [address] Dr. Deepika Terrell Glucose Ql (U) Negative Normal NEGATIVE [facility] Comment on above: Performed By: #### E RUR #### [facility] [address] [place] [address] Dr. Deepika Terrell Hemoglobin Ql (U) Negative Normal NEGATIVE [facility] Comment on above: Performed By: #### E RUR #### [facility] [address] [place] [address] Dr. Deepika Terrell Ketones Ql (U) Negative Normal NEGATIVE [facility] Comment on above: Performed By: #### E RUR #### [facility] [address] [place] [address] Dr. Deepika Terrell LEUKOCYTES Negative Normal NEGATIVE Comment on above: Performed By: #### E RUR #### [facility] [address] [place] [address] Dr. Deepika Terrell Nitrite Ql (U) Negative Normal NEGATIVE [facility] Comment on above: Performed By: #### E RUR #### [facility] [address] [place] [address] Dr. Deepika Terrell pH (U) 6.0 [pH] Normal 5-9 Comment on above: Performed By: #### E RUR #### [facility] [address] [place] [address] Dr. Deepika Terrell SPEC GRAVITY 1.010 Normal 1.005-<=1.02 5 Comment on above: Performed By: #### E RUR #### [facility] [address] [place] [address] Dr. Deepika Terrell UA PROTEIN Negative Normal NEGATIVE/ TRACE [facility] Comment on above: Performed By: #### E RUR #### [facility] [address] [place] [address] Dr. Deepika Terrell UR MICRO IND NOT INDICATED Normal [facility] Comment on above: Performed By: #### E RUR #### [facility] [address] [place] [address] Dr. Deepika Terrell Urobilinogen Qn (U) 0.2 {Jesus'U}/dL Normal 0.2 - 1.0 Comment on above: Performed By: #### E RUR #### [facility] [address] [place] [address] Dr. Deepika Terrell GLYCOHEMOGLOBIN A1Con 2022 ADA RECOMMENDATION SEE BELOW Normal [facility] Comment on above: Result Comment: ADA RECOMMENDED LIMIT 4.0 - 6.0 ADA THERAPEUTIC TARGET < 7.0 ACTION SUGGESTED > 7.0 Performed By: #### I NSULT #### [facility] [address] [address] [address] Deepika Terrell Glucose [Mass/Vol] 134 mg/dL Normal [facility] Comment on above: Performed By: #### I NSULT #### [facility] [address] [address] [address] Deepika Terrell HbA1c (Bld) [Mass fraction] 6.3 % Critically high 4.5-6.2 Comment on above: Performed By: #### I NSULT #### [facility] [address] [place] [address] Dr. Deepika Terrell POINT OF CARE GLUCOSEon 05-09 Glucose [Mass/Vol] 175 mg/dL Critically high 74-106 [facility] Comment on above: Performed By: #### I NSULT #### [facility] [address] [place] [address] Dr. Deepika Terrell Glucose [Mass/Vol] 151 mg/dL Critically high 74-106 [facility] Comment on above: Performed By: #### I NSULT #### [facility] [address] [place] [address] Dr. Deepika Terrell Glucose [Mass/Vol] 95 mg/dL Normal 74-106 [facility] Comment on above: Performed By: #### C BC #### [facility] [address] [place] [address] Dr. Deepika Terrell Glucose [Mass/Vol] 83 mg/dL Normal 74-106 [facility] Comment on above: Performed By: #### I NSULT #### [facility] [address] [place] [address] Dr. Deepika Terrell Glucose [Mass/Vol] 63 mg/dL Critically low 74-106 [facility] Comment on above: Performed By: #### P ERSMR #### [facility] [address] [place] [address] Dr. Deepika Terrell Glucose [Mass/Vol] 48 mg/dL Critically low 74-106 [facility] Comment on above: Result Comment: Resu lt Not Confirmed Performed By: #### B MP #### [facility] [address] [address] [address] Deepika Terrell Glucose [Mass/Vol] 62 mg/dL Critically low 74-106 [facility] Comment on above: Performed By: #### B MP #### [facility] [address] [address] [address] Deepika Terrell Glucose [Mass/Vol] 61 mg/dL Critically low 74-106 [facility] Comment on above: Performed By: #### C PEPT #### [facility] [address] [address] [address] Deepika Terrell PROF CHEM 8 (BAS METB)on Anion gap [Moles/Vol] 11.6 mmol/L Normal Comment on above: Performed By: #### B MP #### [facility] [address] [place] [address] Dr. Deepika Terrell Calcium [Mass/Vol] 8.2 mg/dL Critically low 8.5-10.1 [facility] Comment on above: Performed By: #### B MP #### [facility] [address] [place] [address] Dr. Deepika Terrell Chloride [Moles/Vol] 111 mmol/L Critically high 98-107 Comment on above: Performed By: #### B MP #### [facility] [address] [place] [address] Dr. Deepika Terrell CO2 [Moles/Vol] 23.5 mmol/L Normal 21.0-32.0 [facility] Comment on above: Performed By: #### B MP #### [facility] [address] [place] [address] Dr. Deepika Terrell Creatinine [Mass/Vol] 1.32 mg/dL Critically high 0.70-1.30 Comment on above: Performed By: #### B MP #### [facility] [address] [place] [address] Dr. Deepika Terrell EGFR-AF AFGHAN >60 Normal >=60 [facility] Comment on above: Performed By: #### B MP #### [facility] [address] [address] [address] Deepika Terrell EGFR-NON AF AFGHAN 51 mL/min/1.73m2 Critically low >=60 Comment on above: Performed By: #### B MP #### [facility] [address] [address] [address] Deepika Terrell Glucose [Mass/Vol] 91 mg/dL Normal 74-106 [facility] Comment on above: Performed By: #### B MP #### [facility] [address] [address] [address] Deepika Terrell Potassium [Moles/Vol] 4.1 mmol/L Normal 3.5-5.1 Comment on above: Performed By: #### B MP #### [facility] [address] [address] [address] Deepika Terrell Sodium [Moles/Vol] 142 mmol/L Normal 136-145 [facility] Comment on above: Performed By: #### B MP #### [facility] [address] [address] [address] Deepika Terrell Urea nitrogen [Mass/Vol] 29.0 mg/dL Critically high 7.0-18.0 Comment on above: Performed By: #### B MP #### [facility] [address] [address] [address] Deepika Terrell Urea nitrogen/Creatinin e [Mass ratio] 22.0 mg/mg Normal Comment on above: Performed By: #### B MP #### [facility] [address] [address] [address] Deepika Terrell AMMONIAon 06-01-2022 Ammonia (P) [Moles/Vol] 17 umol/L Normal 11-32 Comment on above: Performed By: #### C BC #### [facility] [address] [address] [address] Deepika Terrell BNPon 06-01-2022 Natriuretic peptide B (Bld) [Mass/Vol] 132.0 pg/mL Normal <=1,800.0 Comment on above: Performed By: #### C BC #### [facility] [address] [place] [address] Dr. Deepika Terrell CBC AUTO DIFFon 06-01-2022 BASO # 0.1 103/ul Normal 0.0-0.1 Comment on above: Performed By: #### C BC #### [facility] [address] [place] [address] Dr. Deepika Terrell Basophils/100 WBC (Bld) 0.3 % Normal 0.2-2.0 Comment on above: Performed By: #### C BC #### [facility] [address] [place] [address] Dr. Deepika Terrell EO # 0.1 103/ul Normal 0.0-0.7 Comment on above: Performed By: #### C BC #### [facility] [address] [place] [address] Dr. Deepika Terrell Eosinophils/100 WBC (Bld) 0.9 % Normal 0.9-7.0 Comment on above: Performed By: #### C BC #### [facility] [address] [place] [address] Dr. Deepika Terrell Erythrocyte distribution width (RBC) [Ratio] 14.7 % Normal 11.0-15.0 Comment on above: Performed By: #### C BC #### [facility] [address] [place] [address] Dr. Deepika Terrell Hematocrit (Bld) [Volume fraction] 33.6 % Critically low 42.0-54.0 Comment on above: Performed By: #### C BC #### [facility] [address] [place] [address] Dr. Deepika Terrell Hemoglobin (Bld) [Mass/Vol] 10.9 g/dL Critically low 14.0-18.0 Comment on above: Performed By: #### C BC #### [facility] [address] [place] [address] Dr. Deepika Terrlel IG # 0.07 10e3/ul Critically high 0.00-0.03 [facility] Comment on above: Performed By: #### C BC #### [facility] [address] [place] [address] Dr. Deepika Terrell IG % 0.5 % Normal 0.0-0.5 Comment on above: Performed By: #### C BC #### [facility] [address] [place] [address] Dr. Deepika Terrell LYMPH # 1.5 103/ul Normal 1.2-3.8 Comment on above: Performed By: #### C BC #### [facility] [address] [place] [address] Dr. Deepika Terrell Lymphocytes/100 WBC (Bld) 10.3 % Critically low 20.5-60.0 Comment on above: Performed By: #### C BC #### [facility] [address] [place] [address] Dr. Deepika Terrell MANUAL DIFF REQ NO Normal [facility] Comment on above: Performed By: #### C BC #### [facility] [address] [place] [address] Dr. Deepika Terrell MCH (RBC) [Entitic mass] 29.9 pg Normal 25.9-34.0 Comment on above: Performed By: #### C BC #### [facility] [address] [place] [address] Dr. Deepika Terrell MCHC (RBC) [Mass/Vol] 32.4 g/dL Normal 29.9-35.2 Comment on above: Performed By: #### C BC #### [facility] [address] [place] [address] Dr. Deepika Terrell MCV (RBC) [Entitic vol] 92.1 fL Normal 80.0-94.0 Comment on above: Performed By: #### C BC #### [facility] [address] [place] [address] Dr. Deepika Terrell MONO # 1.3 103/ul Critically high 0.3-0.8 [facility] Comment on above: Performed By: #### C BC #### [facility] [address] [address] [address] Deepika Terrell Monocytes/100 WBC (Bld) 8.9 % Normal 1.7-12.0 Comment on above: Performed By: #### C BC #### [facility] [address] [address] [address] Deepika Terrell NEUT # 11.8 103/ul Critically high 1.4-6.5 [facility] Comment on above: Performed By: #### C BC #### [facility] [address] [address] [address] Deepika Terrell Neutrophils/100 WBC (Bld) 79.1 % Critically high 43.0-75.0 Comment on above: Performed By: #### C BC #### [facility] [address] [place] [address] Dr. Deepika Terrell Platelet mean volume (Bld) [Entitic vol] 11.4 fL Normal 9.5-13.5 Comment on above: Performed By: #### C BC #### [facility] [address] [place] [address] Dr. Deepika Terrell PLT 324 103/ul Normal 150-450 Comment on above: Performed By: #### C BC #### [facility] [address] [address] [address] Deepika Terrell RBC 3.65 106/ul Critically low 4.70-6.10 [facility] Comment on above: Performed By: #### C BC #### [facility] [address] [address] [address] Deepika Terrell WBC 14.9 103/ul Critically high 4.0-11.0 [facility] Comment on above: Performed By: #### C BC #### [facility] [address] [place] [address] Dr. Deepika Terrell POINT OF CARE GLUCOSEon 05-09 Glucose [Mass/Vol] 29 mg/dL Critically low 74-106 [facility] Comment on above: Result Comment: Resu lt Not Confirmed Performed By: #### B MP #### [facility] [address] [place] [address] Dr. Deepika Terrell Glucose [Mass/Vol] 28 mg/dL Critically low 74-106 [facility] Comment on above: Result Comment: Will Repeat Test Performed By: #### C PEPT #### [facility] [address] [place] [address] Dr. Deepika Terrell PROF 14(COMP METB)on 023 Albumin [Mass/Vol] 3.3 g/dL Critically low 3.4-5.0 [facility] Comment on above: Performed By: #### C BC #### [facility] [address] [place] [address] Dr. Deepika Terrell Albumin/Globulin [Mass ratio] 1.0 {ratio} Normal Comment on above: Performed By: #### C BC #### [facility] [address] [place] [address] Dr. Deepika Terrell ALP [Catalytic activity/Vol] 75 U/L Normal 46-116 Comment on above: Performed By: #### C BC #### [facility] [address] [place] [address] Dr. Deepika Terrell ALT [Catalytic activity/Vol] 34 U/L Normal 16-63 Comment on above: Performed By: #### C BC #### [facility] [address] [place] [address] Dr. Deepika Terrell Anion gap [Moles/Vol] 14.0 mmol/L Normal Comment on above: Performed By: #### C BC #### [facility] [address] [place] [address] Dr. Deepika Terrell AST [Catalytic activity/Vol] 19 U/L Normal 15-37 Comment on above: Performed By: #### C BC #### [facility] [address] [place] [address] Dr. Deepika Terrell Bilirubin [Mass/Vol] 0.2 mg/dL Normal 0.2-1.0 Comment on above: Performed By: #### C BC #### [facility] [address] [address] [address] Deepika Terrell Calcium [Mass/Vol] 8.6 mg/dL Normal 8.5-10.1 [facility] Comment on above: Performed By: #### C BC #### [facility] [address] [address] [address] Deepika Terrell Chloride [Moles/Vol] 109 mmol/L Critically high 98-107 Comment on above: Performed By: #### C BC #### [facility] [address] [address] [address] Deepika Terrell CO2 [Moles/Vol] 23.9 mmol/L Normal 21.0-32.0 [facility] Comment on above: Performed By: #### C BC #### [facility] [address] [address] [address] Deepika Terrell Creatinine [Mass/Vol] 1.59 mg/dL Critically high 0.70-1.30 Comment on above: Performed By: #### C BC #### [facility] [address] [address] [address] Deepika Terrell EGFR-AF AFGHAN 50 mL/min/1.73m2 Critically low >=60 Comment on above: Performed By: #### C BC #### [facility] [address] [address] [address] Deepika Terrell EGFR-NON AF AFGHAN 41 mL/min/1.73m2 Critically low >=60 Comment on above: Performed By: #### C BC #### [facility] [address] [address] [address] Deepika Terrell Globulin (S) [Mass/Vol] 3.3 g/dL Normal Comment on above: Performed By: #### C BC #### [facility] [address] [address] [address] Deepika Terrell Glucose [Mass/Vol] 26 mg/dL Critically low 74-106 [facility] Comment on above: Performed By: #### C BC #### [facility] [address] [address] [address] Deepika Terrell Potassium [Moles/Vol] 3.9 mmol/L Normal 3.5-5.1 Comment on above: Performed By: #### C BC #### [facility] [address] [address] [address] Deepika Terrell Protein [Mass/Vol] 6.6 g/dL Normal 6.4-8.2 [facility] Comment on above: Performed By: #### C BC #### [facility] [address] [address] [address] Deepika Terrell Sodium [Moles/Vol] 143 mmol/L Normal 136-145 [facility] Comment on above: Performed By: #### C BC #### [facility] [address] [address] [address] Deepika Terrell Urea nitrogen [Mass/Vol] 34.0 mg/dL Critically high 7.0-18.0 Comment on above: Performed By: #### C BC #### [facility] [address] [address] [address] Deepika Terrell Urea nitrogen/Creatinin e [Mass ratio] 21.4 mg/mg Normal Comment on above: Performed By: #### C BC #### [facility] [address] [address] [address] Deepika Terrell TROPONIN, HIGH SENSITIVITYon 06-01-2022 HSTROP 13.2 pg/mL Normal 4.0-76.1 Comment on above: Result Comment: CUT- OFF POINTS HAVE BEEN ESTABLISHED BASED ON THE FOURTH UNIVERSAL DEFINITIONS OF MYOCARDIAL INFARCTION. THE UPPER REFERENCE LIMIT (URL) OF TROPONIN, DEFINED THE 99TH PERCENTILE OF cTnI DISTRIBUTION IN A REFERENCE POPULATION, HAS BEEN CONFIRMED THE DECISION THRESHOLD FOR RI DIAGNOSIS. Performed By: #### B MP #### [facility] [address] [address] [address] Deepika Terrell GI PANEL (PCR)on 05-30-2022 Adenovirus F 40/41 Not detected Normal NOT DETECTED [facility] Comment on above: Performed By: #### P ERSMR #### [facility] [address] [address] [address] Deepika Terrell Astrovirus Not detected Normal NOT DETECTED [facility] Comment on above: Performed By: #### P ERSMR #### [facility] [address] [place] [address] Dr. Deepika Terrell C. Diff toxin A/B Not detected Normal NOT DETECTED [facility] Comment on above: Performed By: #### P ERSMR #### [facility] [address] [place] [address] Dr. Deepika Terrell Campylobacter Not detected Normal NOT DETECTED [facility] Comment on above: Performed By: #### P ERSMR #### [facility] [address] [place] [address] Dr. Deepika Terrell Cryptosporidium Not detected Normal NOT DETECTED [facility] Comment on above: Performed By: #### P ERSMR #### [facility] [address] [place] [address] Dr. Deepika Terrell Cyclos. Cayetanensis Not detected Normal NOT DETECTED [facility] Comment on above: Performed By: #### P ERSMR #### [facility] [address] [place] [address] Dr. Deepika Terrell E. Coli O157 Not Applicable Normal Not Applicable [facility] Comment on above: Performed By: #### P ERSMR #### [facility] [address] [place] [address] Dr. Deepika Terrell E. histolytica Not detected Normal NOT DETECTED [facility] Comment on above: Performed By: #### P ERSMR #### [facility] [address] [place] [address] Dr. Deepika Terrell EAEC Not detected Normal NOT DETECTED [facility] Comment on above: Performed By: #### P ERSMR #### [facility] [address] [place] [address] Dr. Deepika Terrell EIEC Not detected Normal NOT DETECTED [facility] Comment on above: Performed By: #### P ERSMR #### [facility] [address] [address] [address] Deepika Terrell EPEC Not detected Normal NOT DETECTED [facility] Comment on above: Performed By: #### P ERSMR #### [facility] [address] [address] [address] Deepika Terrell ETEC Not detected Normal NOT DETECTED [facility] Comment on above: Performed By: #### P ERSMR #### [facility] [address] [address] [address] Deepika Terrell G. Lamblia Not detected Normal NOT DETECTED [facility] Comment on above: Performed By: #### P ERSMR #### [facility] [address] [place] [address] Dr. Deepika WOLFE CONTROLS PASSED Normal [facility] Comment on above: Performed By: #### P ERSMR #### [facility] [address] [place] [address] Dr. Deepika RYAN HEADER GI PANEL BACTERIA Normal T [facility] Comment on above: Performed By: #### P ERSMR #### [facility] [address] [place] [address] Dr. Deepika CACERES ECOLI GI PANEL DIARRHEAGEN IC E.COLI / SHIGELLA Normal Comment on above: Performed By: #### P ERSMR #### [facility] [address] [place] [address] Dr. Deepika CACERES INFO SEE BELOW Normal Comment on above: Result Comment: EAEC - Enteroaggregative E. Coli EPEC- Enteropathogenic E. Coli ETEC- Enterotoxigenic E. Coli lt/st STEC- Shigella-like toxin-producing E. Coli stx1/stx2 EIEC- Shigella/Enteroinvasive E. Coli Performed By: #### P ERSMR #### [facility] [address] [place] [address] Dr. Deepika CACERES PARASITES GI PANEL PARASITES Normal Comment on above: Performed By: #### P ERSMR #### [facility] [address] [place] [address] Dr. Deepika Terrell GIPNLHD VIRUS GI PANEL VIRUSES Normal [facility] Comment on above: Performed By: #### P ERSMR #### [facility] [address] [place] [address] Dr. Deepika Terrell Norovirus GI/GII Not detected Normal NOT DETECTED [facility] Comment on above: Performed By: #### P ERSMR #### [facility] [address] [place] [address] Dr. Deepika Terrell P. Shigelloides Not detected Normal NOT DETECTED [facility] Comment on above: Performed By: #### P ERSMR #### [facility] [address] [address] [address] Deepika Terrell Rotavirus A Not detected Normal NOT DETECTED [facility] Comment on above: Performed By: #### P ERSMR #### [facility] [address] [place] [address] Dr. Deepika Terrell Salmonella Not detected Normal NOT DETECTED [facility] Comment on above: Performed By: #### P ERSMR #### [facility] [address] [place] [address] Dr. Deepika Terrell Sapovirus Not detected Normal NOT DETECTED [facility] Comment on above: Performed By: #### P ERSMR #### [facility] [address] [place] [address] Dr. Deepika Terrell STEC Not detected Normal NOT DETECTED [facility] Comment on above: Performed By: #### P ERSMR #### [facility] [address] [place] [address] Dr. Deepika Terrell Vibrio Not detected Normal NOT DETECTED [facility] Comment on above: Performed By: #### P ERSMR #### [facility] [address] [address] [address] Deepika Terrell Vibrio Cholera Not detected Normal NOT DETECTED [facility] Comment on above: Performed By: #### P ERSMR #### [facility] [address] [place] [address] Dr. Deepika Terrell Y. Enterocolitica Not detected Normal NOT DETECTED [facility] Comment on above: Performed By: #### P ERSMR #### [facility] [address] [address] [address] Deepika Terrell PROF CHEM 8 (BAS METB)on Anion gap [Moles/Vol] 13.9 mmol/L Normal Comment on above: Performed By: #### P ERSMR #### [facility] [address] [address] [address] Deepika Terrell Calcium [Mass/Vol] 8.9 mg/dL Normal 8.5-10.1 [facility] Comment on above: Performed By: #### P ERSMR #### [facility] [address] [address] [address] Deepika Terrell Chloride [Moles/Vol] 104 mmol/L Normal 98-107 Comment on above: Performed By: #### P ERSMR #### [facility] [address] [place] [address] Dr. Deepika Terrell CO2 [Moles/Vol] 26.3 mmol/L Normal 21.0-32.0 [facility] Comment on above: Performed By: #### P ERSMR #### [facility] [address] [place] [address] Dr. Deepika Terrell Creatinine [Mass/Vol] 1.70 mg/dL Critically high 0.70-1.30 Comment on above: Performed By: #### P ERSMR #### [facility] [address] [address] [address] Deepika Terrell EGFR-AF AFGHAN 47 mL/min/1.73m2 Critically low >=60 Comment on above: Performed By: #### P ERSMR #### [facility] [address] [address] [address] Deepika Terrell EGFR-NON AF AFGHAN 38 mL/min/1.73m2 Critically low >=60 Comment on above: Performed By: #### P ERSMR #### [facility] [address] [address] [address] Deepika Terrell Glucose [Mass/Vol] 62 mg/dL Critically low 74-106 Th [facility] Comment on above: Performed By: #### P ERSMR #### [facility] [address] [address] [address] Deepika Terrell Potassium [Moles/Vol] 4.2 mmol/L Normal 3.5-5.1 Comment on above: Performed By: #### P ERSMR #### [facility] [address] [address] [address] Deepika Terrell Sodium [Moles/Vol] 140 mmol/L Normal 136-145 [facility] Comment on above: Performed By: #### P ERSMR #### [facility] [address] [address] [address] Deepika Terrell Urea nitrogen [Mass/Vol] 34.0 mg/dL Critically high 7.0-18.0 Comment on above: Performed By: #### P ERSMR #### [facility] [address] [address] [address] Deepika Terrell Urea nitrogen/Creatinin e [Mass ratio] 20.0 mg/mg Normal Comment on above: Performed By: #### P ERSMR #### [facility] [address] [place] [address] Dr. Deepika Terrell ECHOCARDIO M/2D COMPLETEon 1 06-02-2021 ECHOCARDIO M/2D COMPLETE Patient: LILIANA NATARAJAN Exam Date: 04/01/2022 : 1935 Gender:M Ordering : ARNEL KELLOGG Admission #: [id number] Family : Order #: [id number] CLICK HERE TO VIEW EXAM ECHOCARDIOGRAM REPORT [...] M.D. on 04/09/2022 at 08:52 Normal [facility] CBC AUTO DIFFon 02-05-2022 BASO # 0.1 103/ul Normal 0.0-0.1 Comment on above: Performed By: #### C BC #### [facility] [address] [place] [address] Dr. Deepika Terrell Basophils/100 WBC (Bld) 0.5 % Normal 0.2-2.0 Comment on above: Performed By: #### C BC #### [facility] [address] [place] [address] Dr. Deepika Terrell EO # 0.3 103/ul Normal 0.0-0.7 [facility] Comment on above: Performed By: #### C BC #### [facility] [address] [place] [address] Dr. Deepika Terrell Eosinophils/100 WBC (Bld) 3.3 % Normal 0.9-7.0 [facility] Comment on above: Performed By: #### C BC #### [facility] [address] [place] [address] Dr. Deepika Terrell Erythrocyte distribution width (RBC) [Ratio] 14.0 % Normal 11.0-15.0 Comment on above: Performed By: #### C BC #### [facility] [address] [place] [address] Dr. Deepika Terrell Hematocrit (Bld) [Volume fraction] 41.2 % Critically low 42.0-54.0 Comment on above: Performed By: #### C BC #### [facility] [address] [address] [address] Deepika Terrell Hemoglobin (Bld) [Mass/Vol] 13.4 g/dL Critically low 14.0-18.0 Comment on above: Performed By: #### C BC #### [facility] [address] [place] [address] Dr. Deepika Terrell IG # 0.04 10e3/ul Critically high 0.00-0.03 [facility] Comment on above: Performed By: #### C BC #### [facility] [address] [place] [address] Dr. Deepika Terrell IG % 0.4 % Normal 0.0-0.5 Comment on above: Performed By: #### C BC #### [facility] [address] [place] [address] Dr. Deepika Terrell LYMPH # 3.4 103/ul Normal 1.2-3.8 Comment on above: Performed By: #### C BC #### [facility] [address] [place] [address] Dr. Deepika Terrell Lymphocytes/100 WBC (Bld) 36.2 % Normal 20.5-60.0 Comment on above: Performed By: #### C BC #### [facility] [address] [place] [address] Dr. Deepika Terrell MANUAL DIFF REQ NO Normal [facility] Comment on above: Performed By: #### C BC #### [facility] [address] [place] [address] Dr. Deepika Terrell MCH (RBC) [Entitic mass] 30.9 pg Normal 25.9-34.0 Comment on above: Performed By: #### C BC #### [facility] [address] [address] [address] Deepika Terrell MCHC (RBC) [Mass/Vol] 32.5 g/dL Normal 29.9-35.2 Comment on above: Performed By: #### C BC #### [facility] [address] [place] [address] Dr. Deepika Terrell MCV (RBC) [Entitic vol] 94.9 fL Critically high 80.0-94.0 Comment on above: Performed By: #### C BC #### [facility] [address] [place] [address] Dr. Deepika Terrell MONO # 0.9 103/ul Critically high 0.3-0.8 [facility] Comment on above: Performed By: #### C BC #### [facility] [address] [place] [address] Dr. Deepika Terrell Monocytes/100 WBC (Bld) 9.9 % Normal 1.7-12.0 Comment on above: Performed By: #### C BC #### [facility] [address] [place] [address] Dr. Deepika Terrell NEUT # 4.7 103/ul Normal 1.4-6.5 Comment on above: Performed By: #### C BC #### [facility] [address] [place] [address] Dr. Deepika Tererll Neutrophils/100 WBC (Bld) 49.7 % Normal 43.0-75.0 [facility] Comment on above: Performed By: #### C BC #### [facility] [address] [place] [address] Dr. Deepika Terrell Platelet mean volume (Bld) [Entitic vol] 10.1 fL Normal 9.5-13.5 [facility] Comment on above: Performed By: #### C BC #### [facility] [address] [place] [address] Dr. Deepika Terrell PLT 290 103/ul Normal 150-450 [facility] Comment on above: Performed By: #### C BC #### [facility] [address] [place] [address] Dr. Deepika Terrell RBC 4.34 106/ul Critically low 4.70-6.10 [facility] Comment on above: Performed By: #### C BC #### [facility] [address] [address] [address] Deepika Terrell WBC 9.4 103/ul Normal 4.0-11.0 Comment on above: Performed By: #### C BC #### [facility] [address] [address] [address] Deepika Terrell FREE T3on 02-05-2022 FREE T3 1.83 pg/mlL Critically low 2.18-3.98 [facility] Comment on above: Performed By: #### C PEPT #### [facility] [address] [place] [address] Dr. Deepika Terrell GLYCOHEMOGLOBIN A1Con 2021 ADA RECOMMENDATION SEE BELOW Normal [facility] Comment on above: Result Comment: ADA RECOMMENDED LIMIT 4.0 - 6.0 ADA THERAPEUTIC TARGET < 7.0 ACTION SUGGESTED > 7.0 Performed By: #### A 1C #### [facility] [address] [place] [address] Dr. Deepika Terrell Glucose [Mass/Vol] 114 mg/dL Normal [facility] Comment on above: Performed By: #### A 1C #### [facility] [address] [place] [address] Dr. Deepika Terrell HbA1c (Bld) [Mass fraction] 5.6 % Normal 4.5-6.2 Comment on above: Performed By: #### A 1C #### [facility] [address] [place] [address] Dr. Deepika Terrell LIPID PROFILEon 02-05-2022 CHOL-HDL RATIO NORM SEE BELOW Normal [facility] Comment on above: Result Comment: 3.3 - 4.4 LOW RISK 4.4 - 7.1 AVERAGE RISK 7.1 - 11.0 MODERATE RISK >11.0 HIGH RISK Performed By: #### C PEPT #### [facility] [address] [place] [address] Dr. Deepika Terrell Cholesterol [Mass/Vol] 187 mg/dL Normal <=200 Comment on above: Performed By: #### C PEPT #### [facility] [address] [place] [address] Dr. Deepika Terrell Cholesterol in HDL [Mass/Vol] 49 mg/dL Normal 40-60 Comment on above: Performed By: #### C PEPT #### [facility] [address] [place] [address] Dr. Deepika Terrell Cholesterol in LDL [Mass/Vol] 123.8 mg/dL Normal Comment on above: Performed By: #### C PEPT #### [facility] [address] [place] [address] Dr. Deepika Terrell Cholesterol.total/ Cholesterol in HDL [Mass ratio] 3.8 {ratio} Normal Comment on above: Performed By: #### C PEPT #### [facility] [address] [place] [address] Dr. Deepika Terrell HDL NORMAL > or = 60 mg/dl - LO W CARDIOVASCULAR RISK <40 mg/dl - HIGH CARDIOVASCULAR RISK Normal Comment on above: Performed By: #### C PEPT #### [facility] [address] [place] [address] Dr. Deepika Terrell LDL CALC NORMAL SEE BELOW Normal [facility] Comment on above: Result Comment: <100 mg/dl OPTIMAL 100 - 129 mg/dl NEAR OR ABOVE OPTIMAL 130 - 159 mg/dl BORDERLINE HIGH 160 - 189 mg/dl HIGH >190 mg/dl VERY HIGH Performed By: #### C PEPT #### [facility] [address] [place] [address] Dr. Deepika Terrell Triglyceride [Mass/Vol] 71 mg/dL Normal <=150 [facility] Comment on above: Performed By: #### C PEPT #### [facility] [address] [place] [address] Dr. Deepika Terrell VLDL CALC 14.2 mg/dL Normal Comment on above: Performed By: #### C PEPT #### [facility] [address] [place] [address] Dr. Deepika Terrell PROF 14(COMP METB)on 022 Albumin [Mass/Vol] 4.0 g/dL Normal 3.4-5.0 [facility] Comment on above: Performed By: #### C PEPT #### [facility] [address] [place] [address] Dr. Deepika Terrell Albumin/Globulin [Mass ratio] 1.2 {ratio} Normal Comment on above: Performed By: #### C PEPT #### [facility] [address] [place] [address] Dr. Deepika Terrell ALP [Catalytic activity/Vol] 61 U/L Normal 46-116 Comment on above: Performed By: #### C PEPT #### [facility] [address] [place] [address] Dr. Deepika Terrell ALT [Catalytic activity/Vol] 38 U/L Normal 16-63 Comment on above: Performed By: #### C PEPT #### [facility] [address] [place] [address] Dr. Deepika Terrell Anion gap [Moles/Vol] 8.1 mmol/L Normal Comment on above: Performed By: #### C PEPT #### [facility] [address] [place] [address] Dr. Deepika Terrell AST [Catalytic activity/Vol] 19 U/L Normal 15-37 Comment on above: Performed By: #### C PEPT #### [facility] [address] [place] [address] Dr. Deepika Tererll Bilirubin [Mass/Vol] 0.4 mg/dL Normal 0.2-1.0 Comment on above: Performed By: #### C PEPT #### [facility] [address] [place] [address] Dr. Deepika Terrell Calcium [Mass/Vol] 9.4 mg/dL Normal 8.5-10.1 [facility] Comment on above: Performed By: #### C PEPT #### [facility] [address] [place] [address] Dr. Deepika Terrell Chloride [Moles/Vol] 104 mmol/L Normal 98-107 Comment on above: Performed By: #### C PEPT #### [facility] [address] [place] [address] Dr. Deepika Terrell CO2 [Moles/Vol] 32.6 mmol/L Critically high 21.0-32.0 Comment on above: Performed By: #### C PEPT #### [facility] [address] [place] [address] Dr. Deepika Terrell Creatinine [Mass/Vol] 1.63 mg/dL Critically high 0.70-1.30 Comment on above: Performed By: #### C PEPT #### [facility] [address] [place] [address] Dr. Deepika Terrell EGFR-AF AFGHAN 49 mL/min/1.73m2 Critically low >=60 Comment on above: Performed By: #### C PEPT #### [facility] [address] [place] [address] Dr. Deepika Terrell EGFR-NON AF AFGHAN 40 mL/min/1.73m2 Critically low >=60 Comment on above: Performed By: #### C PEPT #### [facility] [address] [place] [address] Dr. Deepika Terrell Globulin (S) [Mass/Vol] 3.3 g/dL Normal Comment on above: Performed By: #### C PEPT #### [facility] [address] [place] [address] Dr. Deepika Terrell Glucose [Mass/Vol] 127 mg/dL Critically high 74-106 [facility] Comment on above: Performed By: #### C PEPT #### [facility] [address] [place] [address] Dr. Deepika Terrell Potassium [Moles/Vol] 4.7 mmol/L Normal 3.5-5.1 Comment on above: Performed By: #### C PEPT #### [facility] [address] [place] [address] Dr. Deepika Terrell Protein [Mass/Vol] 7.3 g/dL Normal 6.4-8.2 [facility] Comment on above: Performed By: #### C PEPT #### [facility] [address] [place] [address] Dr. Deepika Terrell Sodium [Moles/Vol] 140 mmol/L Normal 136-145 [facility] Comment on above: Performed By: #### C PEPT #### [facility] [address] [place] [address] Dr. Deepika Terrell Urea nitrogen [Mass/Vol] 37.0 mg/dL Critically high 7.0-18.0 Comment on above: Performed By: #### C PEPT #### [facility] [address] [place] [address] Dr. Deepika Terrell Urea nitrogen/Creatinin e [Mass ratio] 22.7 mg/mg Normal Comment on above: Performed By: #### C PEPT #### [facility] [address] [place] [address] Dr. Deepika Terrell T4on 02-05-2022 T4 [Mass/Vol] 8.40 ug/dL Normal 4.50-12.10 [facility] Comment on above: Performed By: #### C PEPT #### [facility] [address] [place] [address] Dr. Deepika Terrell TSHon 02-05-2022 TSH 1.762 uIU/mL Normal 0.358-3.740 [facility] Comment on above: Performed By: #### C PEPT #### [facility] [address] [place] [address] Dr. Deepika Terrell US [place] DOP LEG [...] DAVID ESPINAL Date: 2021-12-26 13:02 Normal [facility] PROF CHEM 8 (BAS METB)on Anion gap [Moles/Vol] 15.1 mmol/L Normal Comment on above: Performed By: #### B MP #### [facility] [address] [address] [address] Deepika Terrell Calcium [Mass/Vol] 9.2 mg/dL Normal 8.5-10.1 [facility] Comment on above: Performed By: #### B MP #### [facility] [address] [address] [address] Deepika Terrell Chloride [Moles/Vol] 102 mmol/L Normal 98-107 Comment on above: Performed By: #### B MP #### [facility] [address] [address] [address] Deepika Terrell CO2 [Moles/Vol] 25.8 mmol/L Normal 21.0-32.0 [facility] Comment on above: Performed By: #### B MP #### [facility] [address] [address] [address] Deepika Terrell Creatinine [Mass/Vol] 1.70 mg/dL Critically high 0.70-1.30 Comment on above: Performed By: #### B MP #### [facility] [address] [address] [address] Deepika Terrell EGFR-AF AFGHAN 47 mL/min/1.73m2 Critically low >=60 [facility] Comment on above: Performed By: #### B MP #### [facility] [address] [address] [address] Deepika Terrell EGFR-NON AF AFGHAN 38 mL/min/1.73m2 Critically low >=60 [facility] Comment on above: Performed By: #### B MP #### [facility] [address] [address] [address] Deepika Terrell Glucose [Mass/Vol] 75 mg/dL Normal 74-106 [facility] Comment on above: Performed By: #### B MP #### [facility] [address] [address] [address] Deepika Terrell Potassium [Moles/Vol] 4.9 mmol/L Normal 3.5-5.1 Comment on above: Performed By: #### B MP #### [facility] [address] [address] [address] Deepika Terrell Sodium [Moles/Vol] 138 mmol/L Normal 136-145 [facility] Comment on above: Performed By: #### B MP #### [facility] [address] [address] [address] Deepika Terrell Urea nitrogen [Mass/Vol] 45.0 mg/dL Critically high 7.0-18.0 Comment on above: Performed By: #### B MP #### [facility] [address] [place] [address] Dr. Deepika Terrell Urea nitrogen/Creatinin e [Mass ratio] 26.5 mg/mg Normal Comment on above: Performed By: #### B MP #### [facility] [address] [address] [address] Deepika Terrell PROF CHEM 8 (BAS METB)on Anion gap [Moles/Vol] 14.2 mmol/L Normal Comment on above: Performed By: #### B MP #### [facility] [address] [address] [address] Deepika Terrell Calcium [Mass/Vol] 9.4 mg/dL Normal 8.5-10.1 [facility] Comment on above: Performed By: #### B MP #### [facility] [address] [address] [address] Deepika Terrell Chloride [Moles/Vol] 106 mmol/L Normal 98-107 [facility] Comment on above: Performed By: #### B MP #### [facility] [address] [address] [address] Deepika Terrell CO2 [Moles/Vol] 25.1 mmol/L Normal 21.0-32.0 [facility] Comment on above: Performed By: #### B MP #### [facility] [address] [address] [address] Deepika Terrell Creatinine [Mass/Vol] 1.72 mg/dL Critically high 0.70-1.30 Comment on above: Performed By: #### B MP #### [facility] [address] [address] [address] Deepika Terrell EGFR-AF AFGHAN 46 mL/min/1.73m2 Critically low >=60 Comment on above: Performed By: #### B MP #### [facility] [address] [address] [address] Deepika Terrell EGFR-NON AF AFGHAN 38 mL/min/1.73m2 Critically low >=60 Comment on above: Performed By: #### B MP #### [facility] [address] [address] [address] Deepika Terrell Glucose [Mass/Vol] 51 mg/dL Critically low 74-106 [facility] Comment on above: Performed By: #### B MP #### [facility] [address] [address] [address] Deepika Terrell Potassium [Moles/Vol] 6.2 mmol/L Critically high 3.5-5.1 Comment on above: Performed By: #### B MP #### [facility] [address] [address] [address] Deepika Terrell Sodium [Moles/Vol] 138 mmol/L Normal 136-145 [facility] Comment on above: Performed By: #### B MP #### [facility] [address] [address] [address] Deepika Terrell Urea nitrogen [Mass/Vol] 42.0 mg/dL Critically high 7.0-18.0 Comment on above: Performed By: #### B MP #### [facility] [address] [address] [address] Deepika Terrell Urea nitrogen/Creatinin e [Mass ratio] 24.4 mg/mg Normal Comment on above: Performed By: #### B MP #### [facility] [address] [address] [address] Deepika Terrell MRI LSPINE WO CONon [...] KURT DON Date: 2021-09-14 14:24 Normal [facility] XR LSPINE MIN 4 VIEWSon [...] KURT DON Date: 2021-09-10 20:46 Normal [facility] GLYCOHEMOGLOBIN A1Con 2021 ADA RECOMMENDATION SEE BELOW Normal [facility] Comment on above: Result Comment: ADA RECOMMENDED LIMIT 4.0 - 6.0 ADA THERAPEUTIC TARGET < 7.0 ACTION SUGGESTED > 7.0 Performed By: #### C PEPT #### [facility] [address] [place] [address] Dr. Deepika Terrell Glucose [Mass/Vol] 131 mg/dL Normal [facility] Comment on above: Performed By: #### C PEPT #### [facility] [address] [address] [address] Deepika Terrell HbA1c (Bld) [Mass fraction] 6.2 % Normal 4.5-6.2 Comment on above: Performed By: #### C PEPT #### [facility] [address] [place] [address] Dr. Deepika Terrell Blood Urea Nitrogenon 2020 Urea nitrogen [Mass/Vol] 23 mg/dL Normal 9- [facility] Comment on above: Performed By: #### B UN, CREAT #### [address] abdomen pelvis w conon CT abdomen pelvis w [facility] [place] [address] [place] [address] CT Scan Report Signed Patient: Liliana Natarajan MR#: [id number] 47 : 1935 Acct:[id number] Age/Sex: 85 / M ADM Date: 10/26/20 Loc: Room: Type: [facility] Attending Dr: Srinivasan Beaulieu MD Ordering Provider: [...] Eugene Cummings M.D.10/26/2020 4:54 PM Dictation Location: [place] [address] Transcribed By: [facility] 10/26/20 1489 Dictated By: Eugene Cummings II, MD 10/26/20 3259 Signed By: 10/26/[address] [facility] Creatinineon 10-26-2020 Creatinine [Mass/Vol] 1.44 mg/dL High 0.64-1.[address] [facility] Comment on above: Performed By: #### B UN, CREAT #### [facility] [address] Creatinine Clr Calc Pharmacy 39.[address] [facility] Comment on above: Result Comment: PERF ORMED BY: [facility] [address] [place] [address] PATHOLOGIST WORK AND FAMILY LIFE CONSULTANT ANTHONY WEAVER M.D. Performed By: #### B UN, CREAT #### [facility] [address] [place] [address] Estimated GFR ( Zahida [address] [facility] Comment on above: Result Comment: GFR estimated reference range: According to KDOQI guidelines, <60 ml/min/1.73m2 is sufficient to diagnose a patient with chronic kidney disease. Performed By: #### B UN, CREAT #### [facility] [address] [place] [address] Estimated GFR (Non- Am [address] [facility] Comment on above: Performed By: #### B UN, CREAT #### [facility] [address] [place] [address] Glucose Poct Glucometerson 0 10-26-2020 Glucose [Mass/Vol] 100 mg/dL [facility] Comment on above: Result Comment: [facility] Glucose Reference Range is dependent on time and content of last meal. Glucose of more than 200 mg/dL in a nonstressed, ambulatory subject supports the diagnosis of Diabetes Mellitus. PERFORMED BY: [facility] [address] [place] [address] PATHOLOGIST WORK AND FAMILY LIFE CONSULTANT ANTHONY WEAVER M.D. Performed By: #### G MATTLS #### Point of Care testing , [facility] 10-26-2020 L ------- Specimen: [id number] Received: 10/26/20 Status: SOLEDAD Rosemary Num: [id number] Spec Type: Surgical Subm Dr: Srinivasan Beaulieu MD Tissues: A Colon Biopsy (LEFT COLON BX) Procedures: HE Stain/2, Gross/Micro L4 Patient Age/Sex Location Account Attending Physician Liliana Natarajan/Raissa [id number] Srinivasan Beaulieu MD SPEC NUM: [id number] RECD: 10/26/20 STATUS: SOLEDAD WITTJames NUM: [id number] AALIYAH: 10/26/20- SUBM DR: Srinivasan Beaulieu MD ENTERED: 10/26/20-[address]: SPEC TYPE: Surgical DEPT: S ENTERED BY: [id number] RECV BY: [id number] ORDERED: HE Stain/2, Gross/Micro L4 ORDERED: HE [...] microscopic findings support the above pathologic diagnosis. [id number] Specimen: [id number] Received: 10/26/20 Status: SOLEDAD Rosemary Num: [id number] Spec Type: Surgical Subm Dr: Srinivasan Beaulieu MD Tissues: A Colon Biopsy (LEFT COLON BX) Procedures: HE Stain/2, Gross/Micro L4 Patient: Liliana Natarajan [id number] (Continued) Signed (signature on file) Anthnoy Weaver MD 10/27/[address] [facility] History and Physicalon 01-15 HIM IP Note OR President + Publisher [facility] Surgical Pathologyon 017 Surgical Pathology (NOTE)[id number] Y LABORATORIESCONSULTING PATHOLOGISTS CORPORATIONANATOMIC [id number] [place], [place] [id number] Fax: SURGICAL PATHOLOGY CONSULTATIONPatient Name: Amy NATARAJAN Rec: [id number] Number: [id number]: 01/15/2017Received: 01/15/2017Reported: 01/16/2017 08:36-- Diagnosis --INTRAOCULAR LENS: GROSS ONLY.Kan Allerd M.D.Electronically Signed Out tb04/16/11Clinical InformationPre-op Diagnosis: DISLOCATED IOL LEFT EYE Operative Findings: IOL GROSS ONLYOperation Performed: VITRECTOMY 25 GAUGE LENSECTOMY, KENALOGINJECTIONSource of Specimen1: IOL - GROSS ONLYGross Description LILIANA NATARAJAN IOL GROSS ONLY 0.6 cm long x < 0.1 cm in diameterclear translucent lens with two tags. Gross only. [facility] Vital Signs Date Time Vital Sign Value Performing Clinician Facility 11-26-2022 09:45-0400 Body height 172.72 cm Chevy Robins Other [facility] 11-26-2022 09:45-0400 Body mass index (BMI) [Ratio] 24.63 kg/m2 Chevy Robins Other [facility] 11-26-2022 09:45-0400 Body weight 73.48 kg Chevy Julienne Other [facility] 11-26-2022 09:45-0400 Diastolic blood pressure 61 mm[Hg] Chevy Carlos Ay Other [facility] 11-26-2022 09:45-0400 Systolic blood pressure 135 mm[Hg] Chevy Straussy Other [facility] 12-27-2021 14:00-0400 Body height 172.72 cm Chevy Conniewilmaotilia Other [facility] 12-27-2021 14:00-0400 Body mass index (BMI) [Ratio] 28.43 kg/m2 Chevy Robins Other [facility] 12-27-2021 14:00-0400 Body weight 84.82 kg Cheyv Julienne Other [facility] 12-27-2021 14:00-0400 Diastolic blood pressure 75 mm[Hg] Chevy Conniewilmay Other [facility] 12-27-2021 14:00-0400 Systolic blood pressure 171 mm[Hg] Chevy Robins Other [facility] 11-27-2021 09:51-0400 Diastolic blood pressure 71 mm[Hg] Darien REYNOLDS [facility] 11-27-2021 09:51-0400 Mean blood pressure 97 mm[Hg] Darien REYNOLDS [facility] 11-27-2021 09:51-0400 Respiratory rate 49 /min Darien Modria [facility] 11-27-2021 09:51-0400 Systolic blood pressure 150 mm[Hg] Darien COOK [facility] 11-27-2021 09:39-0400 Blood Pressure Location Darien Modria [facility] 11-27-2021 09:39-0400 Diastolic blood pressure 67 mm[Hg] Darien Modria [facility] 11-27-2021 09:39-0400 Heart rate 45 /min Darien Modria [facility] 11-27-2021 09:39-0400 Systolic blood pressure 168 mm[Hg] Darien Modria [facility] 12-27-2020 14:00-0400 Body height 172.72 cm Chevy Robins Other [facility] 12-27-2020 14:00-0400 Body mass index (BMI) [Ratio] 28.13 kg/m2 Chevy Robins Other [facility] 12-27-2020 14:00-0400 Body weight 83.92 kg Chevy Robins Other [facility] Other Encounters Encounter Date Encounter Type Care Provider Facility Start: 11-11-2023 ambulatory Darien REYNOLDS Facility :[facility] Start: 07-07-2023 End: 07-07-2023 ambulatory [facility] Start: 06-16-2023 End: 06-17-2023 ambulatory Darien REYNOLDS Facility:[facility] Start: 06-16-2023 End: 06-16-2023 Patient encounter procedure Darien Caitie REYNOLDS [facility] Start: 12-13-2022 End: 12-13-2022 ambulatory [facility] Start: 11-26-2022 End: 11-26-2022 ambulatory Chevy Robins Other [facility] Start: 11-26-2022 Patient encounter procedure Chevy [...] 12-27-2021 End: 12-27-2021 ambulatory Chevy Robins Other [facility] [employer] Other Start: 12-27-2021 Patient encounter procedure Chevy Robins [facility] Start: 12-26-2021 End: 12-27-[address] ERIN BERG . Facility:[facility] Start: 11-27-2021 End: 11-27-2021 Patient encounter procedure Darien REYNOLDS [facility] Start: 10-18-2021 End: 10-26-[address] DOCTOR [...] 01-21-2017 End: 01-22-2017 Ambulatory DEFAULT PHYSICIAN Facility:[facility] Start: 01-17-2017 End: 01-18-2017 Ambulatory DEFAULT PHYSICIAN Facility:[facility] Start: 01-15-2017 End: 01-15-2017 Ambulatory [facility] Procedures Date Procedure Procedure Detail Performing Clinician Start: 07-07-2023 Follow-up visit Follow-up ARNEL KELLOGG Start: 02-05-[address] CHRIS BERG . Comment on above: Performed By: #### C PEPT #### [facility] [address] [address] [address] Deepika Terrell Start: 12-04-2020 Transurethral water [...] vaccine recombinant Darien REYNOLDS [facility] 02-24-2023 zoster vaccine recombinant Darien REYNOLDS [facility] 01-27-2023 influenza virus vaccine, unspecified formulation Darien Modria [facility] 06-02-2022 influenza virus vaccine, unspecified formulation Darien Modria [facility] 06-02-2022 pneumococcal conjuga te vaccine, 13 valent Darien REYNOLDS [facility] 01-21-2022 influenza virus vaccine, unspecified formulation Darien Modria [facility] 09-27-2021 SARS-CoV-2 (COVID-19 ) mRNA-1273 vaccine Darien Modria [facility] 04-24-2021 SARS-CoV-2 (COVID-19 ) mRNA BNT-162b2 vax Darien REYNOLDS [facility] 01-25-2021 influenza virus vaccine, unspecified formulation Darien REYNOLDS [facility] 06-06-2020 SARS-CoV-2 (COVID-19 ) mRNA-1273 vaccine Darien Modria [facility] 05-09-2020 SARS-CoV-2 (COVID-19 ) mRNA-1273 vaccine Darien Modria [facility] 04-11-2020 SARS-CoV-2 (COVID-19 ) mRNA-1273 vaccine Darien Modria [facility] 01-14-2020 influenza virus vaccine, unspecified formulation Darien REYNOLDS [facility] 01-06-2020 influenza virus vaccine, unspecified formulation Darien REYNOLDS [facility] 01-28-2018 influenza virus vaccine, unspecified formulation Darien REYNOLDS [facility] 02-05-2017 pneumococcal conjuga te vaccine, 13 valent Darien REYNOLDS [facility] 01-27-2017 influenza virus vaccine, unspecified formulation Darien REYNOLDS [facility] 01-13-2017 influenza virus vaccine, unspecified formulation Darien REYNOLDS [facility] 01-06-2017 influenza virus vaccine, unspecified formulation Darien REYNOLDS [facility] 01-03-2016 influenza virus vaccine, unspecified formulation Darien REYNOLDS [facility] 01-06-2015 influenza virus vaccine, unspecified formulation Darien REYNOLDS [facility] 02-03-2014 influenza virus vaccine, unspecified formulation Darien REYNOLDS [facility] 01-25-2009 influenza, whole Darien BASSO K [facility] Payers Date Payer Category Payer Unknown [id number] 2017 Medicare [id number] 1959 Medicare [id number] 2.1 [id number] 1959 Self-pay 1959 Unknown [id number] 1935 Unknown [id number] 2.16.84 0.1.803635.3.579.2.593 1935 Unknown [id number] 2.16.84 0.1.314172.3.579.2.593 1935 Unknown [id number] 2.16.84 0.1.042489.3.579.2.593 1935 Unknown [id number] 2.16.84 0.1.464460.3.579.2.593 1935 Unknown [id number] 2.16.84 0.1.026888.3.579.2.593 1935 Unknown [id number] 2.16.84 0.1.437843.3.579.2.593 1935 Unknown [id number] 2.16.84 0.1.056086.3.579.2.593 1935 Unknown [id number] 2.16.84 0.1.148387.3.579.2.593 1935 Unknown [id number] 2.16.84 0.1.352392.3.579.2.593 1935 Unknown [id number] 2.16.84 0.1.174929.3.579.2.593 1935 Unknown [id number] 2.16.84 0.1.692702.3.579.2.593 1935 Unknown [id number] 2.16.84 0.1.447870.3.579.2.593 1935 Unknown [id number] 2.16.84 0.1.487951.3.579.2.593 1935 Unknown [id number] 2.16.84 0.1.774709.3.579.2.593 1935 Unknown [id number] 2.16.84 0.1.402170.3.579.2.593 1935 Unknown [id number] 2.16.84 0.1.159843.3.579.2.593 1935 Unknown [id number] 2.16.8 40.1.634240.3.579.2.727 1935 Unknown [id number] 2.16.8 40.1.009481.3.579.2.727 1935 Unknown [id number] 2.16.8 40.1.945341.3.579.2.727 Unknown Unknown [id number] 2.16.8 40.1.079167.19 Unknown [id number] 2.16.84 0.1.213656.3.579.2.593 Unknown [id number] 2.16.84 0.1.709520.3.579.2.593 Social History Date Type Detail Facility Sex Assigned At [facility] Start: 11-27-2021 End: 06-11-2022 Tobacco smoking status Never smoked tobacco (finding) [facility] Tobacco smoking status Never [facility] Functional Status Date Assessment Result Facility 11-27-2021 Functional Status N/A [facility] Clinical Notes 12-27-2020 to 07-07-2023 Note Date [...] 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 [facility] 12-13-2022 Note Patient here for 6 m o follow up hypertension and bradycardia. Says Dr. Berg stopped his furosemide about 1 month ago. Denies increased in LE edema and SOB. Denies chest pain and lightheadedness. Doing well. [facility] 12-13-2022 Note Cardiology Follow Up Progress [...] report -Sinus Bradycardia (more content not included)... [facility] 11-26-2022 Evaluation note Encounter Date Diagnosis Assessment Notes Nov, Microscopic colitis (ICD-10 - K52.89) Patient to use OTC probiotic and OTC Fiber supplement to help normalize the stools. Patient to finish remaining 2 weeks of medication and call if diarrhea returns after stopping the medication. RTO in 1 year. [facility] 09-22-2022 Evaluation note* Encounter Date Diagnosis Assessment Notes Treatment Notes Treatment Clinical Notes Dec, Microscopic colitis (ICD-10 - K52.89) REASSURANCE PT ADVISED TO ADD FIBER SUPPLEMENT TO DIET F/U PRN [facility] Other 08-23-2022 Hospital Discharge instructions Patient Education [...] urethra. Follow these instructions at home: Take [id number] and prescription medicines only as told by [...] 03/24/2006 Document Revised: 02/16/2019 Document Reviewed: 04/28/2017 [employer] Patient Education [facility]. Follow Up Care 05/30/2021 14:56:10 With:Darien REYNOLDS MD, URL Address: [facility] [employer] [facility] [address] [place], [place] [id number]- When:6 months [facility] 09-22-2021 Evaluation note* Encounter Date Diagnosis Assessment Notes Treatment Notes Treatment Clinical Notes Dec, Microscopic colitis (ICD-10 - K52.89) Colitis home care material was printed will taper the budesonide at this time patient to finish the 9 mg taper then move to the 6 mg taper. [facility] Evaluation + Plan note Future Appointments Appointment Date:06/11/2022 09:30:00 AM Scheduled Provider:Darien REYNOLDS MD Location:[facility] Appointment Type:URO Office Visit [facility] History general Narrative - Reported* Type [...] 1998 Hospitalization History SEE ABOVE SURGICAL HX [facility] Other History general Narrative - Reported* Type [...] ABOVE SURGICAL HX Hospitalization History A1c down- [place] [facility] 05/2022 [facility] Hospital course Narrative No data available for this section [facility] Discharge instructions No data available for this section [facility] Progress note No data available for this section [facility] Summary Purpose Family History No Family History [...] section and content) DATE CREATED AUTHOR 09/30/2017 [facility] DATE CREATED AUTHOR AUTHOR'S ORGANIZ ATION 09/30/2017 [facility] DATE CREATED AUTHOR AUTHOR'S ORGANIZ ATION 10/30/2020 [facility] DATE CREATED AUTHOR AUTHOR'S ORGANIZ ATION 08/19/2022 [facility] DATE CREATED AUTHOR AUTHOR'S ORGANIZ ATION 08/10/[address] [facility] DATE CREATED AUTHOR AUTHOR'S ORGANJANIYA ATION 09/10/2023 [facility] REASON FOR VISIT (unrecogniz ed section [...] content) Personnel Name: Erin Berg MD Address: [address] [place] [address] Personnel Name: Erin Berg MD Address: Address: [address] [place] [address] FOR RECORDS PERTAINING TO PATIENTS WHO ARE [...] BE BASED ON THE PRIMARY CLINICAL RECORDS. [employer] provides no warranty or guarantee of the accuracy or completeness of information in this document.
[2023-12-28 19:47] VITALS: BP 128/64; PULSE 81; TEMP 37.1; O2SAT 93; BMI 27.4
[2023-12-28 20:00] VITALS: PULSE 81
[2023-12-28] MEDS: SUCRALFATE 1 GM TABLET PO (21:37)
[2023-12-28] MEDS: HYDRALAZINE HCL 50 MG TABLET 100 MG PO (21:37)
[2023-12-29 05:05] VITALS: BP 123/64; PULSE 46; TEMP 36.4; O2SAT 95
[2023-12-29] MEDS: LEVOTHYROXINE SODIUM 25 MCG TABLET 50 MCG PO (05:38)
[2023-12-29 06:39] LABS: Basophils Absolute Auto 0.1 10^3/uL (0.0-0.1); Basophils Percent Auto 0.3 % (0.2-2.0); Eosinophils Absolute Auto 0.2 10^3/uL (0.0-0.7); Eosinophils Percent Auto 1.2 % (0.9-7.0); Hematocrit 30.7 % (42.0-54.0); Hemoglobin 9.9 g/dL (14.0-18.0); Immature Granulocytes Abs Auto 0.07 10^3/uL (0.00-0.03); Immature Granulocytes Pct Auto 0.4 % (0.0-0.5); Lymphocytes Absolute Auto 3.3 10^3/uL (1.2-3.8); Lymphocytes Percent Auto 17.8 % (20.5-60.0); Mean Corpuscular HGB Conc 32.2 g/dL (29.9-35.2); Mean Corpuscular Hemoglobin 29.7 pg (25.9-34.0); Mean Corpuscular Volume 92.2 fL (80.0-94.0); Mean Platelet Volume 11.3 fL (9.5-13.5); Monocytes Absolute Auto 1.6 10^3/uL (0.3-0.8); Monocytes Percent Auto 8.9 % (1.7-12.0); Neutrophils Absolute Auto 13.2 10^3/uL (1.4-6.5); Neutrophils Percent Auto 71.4 % (43.0-75.0); Platelet Count 227 10^3/uL (150-450); Red Blood Count 3.33 10^6/uL (4.70-6.10); Red Cell Distribution Width 15.1 % (11.0-15.0); White Blood Count 18.5 10^3/uL (4.0-11.0)
[2023-12-29 06:58] LABS: Erythrocyte Sedimentation Rate 15 mm/hr (<=20)
[2023-12-29 07:16] LABS: Alanine Aminotransferase 21 U/L (16-63); Alkaline Phosphatase 75 U/L (46-116); Aspartate Amino Transferase 12 U/L (15-37); Bilirubin Total 0.4 mg/dL (0.2-1.0); Chloride 112 mmol/L (98-107); Estimated GFR (African America >60 (>=60); Estimated GFR (Non-African Ame 58 (>=60); Sodium 141 mmol/L (136-145)
[2023-12-29 07:43] VITALS: BP 160/67; PULSE 51; TEMP 36.7; O2SAT 94
--- NOTE | 2023-12-29 07:56 | P.HP_ITS ---
HPI H&P: HPI History of Present Illness Chief complaint: General Weekness Narrative: Patient presented to the emergency room with increasing weakness. No other specific symptoms other than shaking chills. Denied cough. Did have an episode of diarrhea but that had resolved. When I saw patient upon medical surgical floor, he was resting comfortably in bed, does describe some pressure with urination and frequency with urination. At this point I would suspect acute prostatitis. Opioid HPI Opioid Management Most Recent Pain and Opioid Data: Last Pain Scale 0 12/29/23 06:11 Last Pain Assessment 12/29/23 07:43 Last ORT Total Score 0 12/28/23 19:47 Last ORT Risk Category Low Risk 12/28/23 19:47 Review of Systems ROS Status of ROS 10 or more systems reviewed and unremark able except as noted in history and below [facility] Medical History (Updated 12/29/23 @ 08:27 by Art Berg MD) Carotid stenosis, right ?I65.21 - Occlusion and stenosis of right carotid artery (ICD-10) Cataract (lens) fragments in eye following cataract surgery, bilateral ?H59.023 - Cataract (lens) fragments in eye following cataract surgery, bilateral (ICD-10) Precancerous skin lesion ?L98.9 - Disorder of the skin and subcutaneous tissue, unspecified (ICD-10) Microscopic colitis ?K52.839 - Microscopic colitis, unspecified (ICD-10) Edema ?R60.9 - Edema, unspecified (ICD-10) Hyperthyroidism ?E05.90 - Thyrotoxicosis, unspecified without thyrotoxic crisis or storm (ICD-10) HTN (hypertension) ?I10 - Essential (primary) hypertension (ICD-10) Arrhythmia ?I49.9 - Cardiac arrhythmia, unspecified (ICD-10) Surgical History (Updated 12/28/23 @ 20:57 by Ben Priest) Previous back surgery ?Z98.890 - Other specified postprocedural states (ICD-10) History of prostate surgery ?Z98.890 - Other specified postprocedural states (ICD-10) Family History (Updated 12/28/23 @ 20:57 by Ben Priest) Mother Ovarian cancer Family history of cancer Father Family history of diabetes mellitus Kidney disease Grandfather Family history of diabetes mellitus CVA (cerebral vascular accident) Grandmother Family history of diabetes mellitus Social History (Updated 12/28/23 @ 20:15 by Ben Priest) Within the past year, how often did you have a drink containing alcohol: 4 or more times a week Within the past year, how many standard drinks containing alcohol did you have on a typical day: 1 or 2 Within the past year, how often did you have six or more drinks on one occasion: never Total score: 0 Score interpretation: Questions 2 and 3 are 0. It can be assumed that the patient's drinking is below the recommended limits. However, please confirm the accuracy of the patient's alcohol intake over the last few months. Smoking status: Former smoker Second hand tobacco smoke exposure: No Non-prescribed substance use: denies use Known occupational exposures/hazards: No Highest level of school completed/degree received: some college, no degree Are you now , , , , never or living with a partner: In a typical week, how many times do you talk on the telephone with family, friends, or neighbors: 3 or more times per week How often do you get together with friends or relatives: 3 or more times per week Do you belong to any clubs or organizations such as pentecostalism groups unions, [employer] or athletic groups, or school groups: yes Little interest or pleasure in doing things: not at all Feeling down, depressed, or hopeless: not at all Feel stressed/tense/nervous/anxious/difficulty sleeping: not at all Due to disability, difficulty making decisions: No Meds Home Medications and Allergies Home Medications ?Medication ?Instructions ?Recorded ?Confirmed ?Type amlodipine 10 mg tablet 10 mg PO DAILY 12/28/23 12/28/23 History atorvastatin 40 mg tablet 40 mg PO DAILY 12/28/23 12/28/23 History clopidogrel 75 mg tablet 75 mg PO DAILY 12/28/23 12/28/23 History hydralazine 100 mg tablet 100 mg PO Q12H 12/28/23 12/28/23 History levothyroxine 50 mcg tablet 50 mcg PO DAILY 12/28/23 12/28/23 History liothyronine 5 mcg tablet 10 mcg PO DAILY 12/28/23 12/28/23 History lisinopril 20 mg tablet 20 mg PO DAILY 12/28/23 12/28/23 History oxybutynin chloride 5 mg tablet 5 mg PO DAILY 12/28/23 12/28/23 History pantoprazole 40 mg tablet,delayed 40 mg PO DAILY 12/28/23 12/28/23 History release potassium chloride 10 mEq 10 meq PO BID 12/28/23 12/28/23 History tablet,extended release sucralfate 1 gram tablet 1 g PO Q6H 12/28/23 12/28/23 History tamsulosin 0.4 mg capsule 0.4 mg PO Q24H 12/28/23 12/28/23 History tizanidine 4 mg tablet 4 mg PO DAILY 12/28/23 12/28/23 History cefdinir 300 mg capsule 300 mg PO BID #20 caps 12/29/23 Rx Allergies Allergy/AdvReac Type Severity Reaction Status Date / Time No Known Drug Allergies Allergy Verified 12/28/23 16:52 Exam Constitutional Vital Signs, click to edit/add: Last Vital Signs Temp 98.1 F 12/29/23 07:43 Pulse 51 L 12/29/23 07:43 Resp 16 12/29/23 07:43 BP 160/67 H 12/29/23 07:43 Pulse Ox 94 L 12/29/23 07:43 O2 Del Method Room Air 12/29/23 07:43 Documenting provider has reviewed patient's vital signs: yes Common normals: no apparent distress Chest Common normals: inspection of chest normal and palpation of chest normal Respiratory Common normals: normal respiratory effort and no retractions Cardio Common normals: regular rate, regular rhythm and no murmurs GI Common normals: Normal to inspection, nondistended, normoactive bowel sounds present and soft to palpation; tender (Mild suprapubic tenderness) Results Labs Labs: Short CBC 12/28/23 12/29/23 Range/Units 17:10 06:01 WBC 17.8 H 18.5 H (4.0-11.0) 10^3/uL Hgb 12.1 L 9.9 L (14.0-18.0) g/dL Hct 37.1 L 30.7 L (42.0-54.0) % Plt Count 257 227 (150-450) 10^3/uL BMP 12/28/23 17:10 Sodium 141 Potassium 4.0 Chloride 109 H Carbon Dioxide 16.0 L BUN 26.0 H Creatinine 1.46 H Glucose 163 H Calcium 8.8 Urine 12/28/23 Range/Units 18:15 Urine Color Dk. yellow (YELLOW) Urine Clarity Clear (CLEAR) Urine pH 5.5 (5.0-9.0) Ur Specific [place] 1.025 (1.005-1.025) Urine Protein Negative (NEG/TRACE) mg/dL Urine Glucose (UA) Negative (NEGATIVE) mg/dL Assessment and Plan Assessment and Plan (1) Generalized weakness: (2) Acute prostatitis: Plan Admission findings: Hypotension with blood pressure 123/47, acute kidney injury with baseline creatinine of 1.28 up to 1.5 which is 117% above baseline, leukocytosis consistent with bacterial process. Acute prostatitis-urine analysis is negative which would be consistent with prostatitis as opposed to acute UTI. Significant leukocytosis without other findings on lung or abdominal exam. And the leukocytosis is consistent with a bacterial process with left shift. Will start patient on cefdinir. Patient does overall feel improved with no more chills. At this point the plan is to have him eat breakfast, walk around if he still feels well he can be discharged to home with close follow-up in the office. And send patient home with oral antibiotics. Medications see list. Iron deficiency anemia-we will monitor as an outpatient Hypercholesterolemia-continue with home medications Hypothyroidism-continue with home medications GERD-continue with home medications BPH-complicated by the above prostatitis-continue with home medications TIA-continue with home medications Admission status: Patient initially given IV fluids overnight. He does feel improved today. Medically necessary treatment will likely span 1 midnight. Observation status.
--- NOTE | 2023-12-29 07:56 | P.DS_ITS ---
DS: Providers Provider Date of admission: 12/28/23 19:27 Primary care physician: Art Berg MD DS: Diagnosis Discharge Diagnosis (1) Acute prostatitis: (2) Generalized weakness: Plan Admission findings: Hypotension with blood pressure 123/47, acute kidney injury with baseline creatinine of 1.28 up to 1.5 which is 117% above baseline, leukocytosis consistent with bacterial process. Acute prostatitis-urine analysis is negative which would be consistent with prostatitis as opposed to acute UTI. Significant leukocytosis without other findings on lung or abdominal exam. And the leukocytosis is consistent with a bacterial process with left shift. Will start patient on cefdinir. Patient does overall feel improved with no more chills. At this point the plan is to have him eat breakfast, walk around if he still feels well he can be discharged to home with close follow-up in the office. And send patient home with oral antibiotics. Medications see list. Iron deficiency anemia-we will monitor as an outpatient Hypercholesterolemia-continue with home medications Hypothyroidism-continue with home medications GERD-continue with home medications BPH-complicated by the above prostatitis-continue with home medications TIA-continue with home medications Admission status: Patient initially given IV fluids overnight. He does feel improved today. Medically necessary treatment will likely span 1 midnight. Observation status. DS: Summary Hospital Course Hospital Course: Patient was admitted with chills and generalized weakness. Only significant finding was on his review of systems which was urinary pressure. History of BPH. Suspecting acute prostatitis. No other etiology for the leukocytosis. Patient does feel improved after IV hydration. With significant leukocytosis with left shift consistent with bacterial process will discharge patient to home on cefdinir. He can follow-up with me in the office closely. Medications see list. Status at Discharge Overall status at discharge: patient is not back to baseline Time Spent with Patient Time attestation: Total time spent providing and/or coordinating discharge services: Time spent: greater than 30 minutes Exam Constitutional Vital Signs, click to edit/add: Last Vital Signs Temp 98.1 F 12/29/23 07:43 Pulse 51 L 12/29/23 07:43 Resp 16 12/29/23 07:43 BP 160/67 H 12/29/23 07:43 Pulse Ox 94 L 12/29/23 07:43 O2 Del Method Room Air 12/29/23 07:43 Documenting provider has reviewed patient's vital signs: yes Common normals: no apparent distress Chest Common normals: inspection of chest normal and palpation of chest normal Respiratory Common normals: normal respiratory effort and no retractions Cardio Common normals: regular rate, regular rhythm and no murmurs GI Common normals: Normal to inspection, nondistended, normoactive bowel sounds present and soft to palpation; tender (Mild suprapubic tenderness) DS: Data Data Completed and Pending Labs on day of discharge: Labs from last 24 hours 12/29/23 12/28/23 12/28/23 06:01 18:15 17:10 WBC 18.5 H 17.8 H RBC 3.33 L 4.05 L Hgb 9.9 L 12.1 L Hct 30.7 L 37.1 L MCV 92.2 91.6 MCH 29.7 29.9 MCHC 32.2 32.6 RDW 15.1 H 14.9 Plt Count 227 257 MPV 11.3 10.7 Neut % (Auto) 71.4 Lymph % (Auto) 17.8 L [place] % (Auto) 8.9 Eos % (Auto) 1.2 Baso % (Auto) 0.3 Neut # (Auto) 13.2 H Lymph # (Auto) 3.3 [place] # (Auto) 1.6 H Eos # (Auto) 0.2 Baso # (Auto) 0.1 Abs Immat Gran (auto) 0.07 H Seg Neuts % (Manual) 87.0 H Lymphocytes % (Manual) 4.0 L Monocytes % (Manual) 8.0 Eosinophils % (Manual) 1.0 Basophils % (Manual) 0.0 L Imm/Tot Granulo (auto) 0.4 Neutrophils # (Manual) 15.48 H Lymphocytes # (Manual) 0.71 L Monocytes # (Manual) 1.42 H Eosinophils # (Manual) 0.17 Basophils # (Manual) 0.00 ESR 15 Sodium 141 Potassium 4.0 Chloride 109 H Carbon Dioxide 16.0 L Anion Gap 20.0 BUN 26.0 H Creatinine 1.46 H Est GFR ( Amer) 55 L Est GFR (Non-Af Amer) 46 L BUN/Creatinine Ratio 17.8 Glucose 163 H Calcium 8.8 Urine Color Dk. yellow Urine Clarity Clear Urine pH 5.5 Ur Specific [place] 1.025 Urine Protein Negative Urine Glucose (UA) Negative Urine Ketones Negative Urine Occult Blood Negative Urine Nitrite Negative Urine Bilirubin Negative Urine Urobilinogen 0.2 Ur Leukocyte Esterase Negative Urine RBC 0-2 Urine WBC 0-2 A Ur Squamous Epith Cells None seen Urine Crystals None seen Urine Bacteria Trace A Urine Casts Seen A Hyaline Casts Rare Urine Mucus None seen SARS-CoV-2 Ag (CV2AG) 12/28/23 17:05 WBC RBC Hgb Hct MCV MCH MCHC RDW Plt Count MPV Neut % (Auto) Lymph % (Auto) [place] % (Auto) Eos % (Auto) Baso % (Auto) Neut # (Auto) Lymph # (Auto) [place] # (Auto) Eos # (Auto) Baso # (Auto) Abs Immat Gran (auto) Seg Neuts % (Manual) Lymphocytes % (Manual) Monocytes % (Manual) Eosinophils % (Manual) Basophils % (Manual) Imm/Tot Granulo (auto) Neutrophils # (Manual) Lymphocytes # (Manual) Monocytes # (Manual) Eosinophils # (Manual) Basophils # (Manual) ESR Sodium Potassium Chloride Carbon Dioxide Anion Gap BUN Creatinine Est GFR ( Amer) Est GFR (Non-Af Amer) BUN/Creatinine Ratio Glucose Calcium Urine Color Urine Clarity Urine pH Ur Specific [place] Urine Protein Urine Glucose (UA) Urine Ketones Urine Occult Blood Urine Nitrite Urine Bilirubin Urine Urobilinogen Ur Leukocyte Esterase Urine RBC Urine WBC Ur Squamous Epith Cells Urine Crystals Urine Bacteria Urine Casts Hyaline Casts Urine Mucus SARS-CoV-2 Ag (CV2AG) Negative Discharge Plan Discharge Disposition: Home, Self-Care Condition: Good Discharge Medications: New cefdinir 300 mg capsule 300 mg PO BID Qty: 20 0RF Continued atorvastatin 40 mg tablet 40 mg PO DAILY tizanidine 4 mg tablet 4 mg PO DAILY sucralfate 1 gram tablet 1 g PO Q6H lisinopril 20 mg tablet 20 mg PO DAILY potassium chloride 10 mEq tablet extended release 10 meq PO BID clopidogrel 75 mg tablet 75 mg PO DAILY liothyronine 5 mcg tablet 10 mcg PO DAILY tamsulosin 0.4 mg capsule 0.4 mg PO Q24H amlodipine 10 mg tablet 10 mg PO DAILY levothyroxine 50 mcg tablet 50 mcg PO DAILY hydralazine 100 mg tablet 100 mg PO Q12H pantoprazole 40 mg tablet,delayed release (DR/EC) 40 mg PO DAILY oxybutynin chloride 5 mg tablet 5 mg PO DAILY Print Language: Barbadian Forms: Portal Instructions Follow Up Appointments: @ 3pm with Dr. Berg [phone]
[2023-12-29 07:59] LABS: Albumin Globulin Ratio 1.1; Albumin Level 2.9 g/dL (3.4-5.0); Anion Gap 14.4; BUN Creatinine Ratio 18.5; Calcium 8.5 mg/dL (8.5-10.1); Carbon Dioxide 18.6 mmol/L (21.0-32.0); Globulin 2.6 g/dL; Glucose 116 mg/dL (74-106); Total Protein 5.5 g/dL (6.4-8.2)
--- NOTE | 2023-12-29 09:36 | SWNOTE1 ---
Pt was discharged prior to seeing patient. Not able to complete YOUSIF.
--- NOTE | 2023-12-31 14:21 | CM.DCFOLLOWU ---
1st attempt 12/31/23, no answer
== END 2023-12-29 09:12 | disposition home or self-care (01) ==
LOC: ER 18:57 → MS 19:30
PROVIDERS: Registered Nurse; Admitting Provider Family Medicine; Emergency Provider Emergency Medicine; PCP Family Medicine; Visit Provider Family Medicine
DX: N41.0 Acute prostatitis (principal); I95.9 Hypotension, unspecified; N17.9 Acute kidney failure, unspecified; D72.829 Elevated white blood cell count, unspecified; D50.9 Iron deficiency anemia, unspecified; E78.00 Pure hypercholesterolemia, unspecified; E03.9 Hypothyroidism, unspecified; K21.9 Gastro-esophageal reflux disease without esophagitis; N40.0 Benign prostatic hyperplasia without lower urinary tract symptoms; R53.1 Weakness; Z86.73 Personal history of transient ischemic attack (TIA), and cerebral infarction without residual deficits; Z79.899 Other long term (current) drug therapy; Z20.822 Contact with and (suspected) exposure to COVID-19; Z87.891 Personal history of nicotine dependence
CPT/HCPCS: 36415; 71045; 80048; 80053; 81001; 85007; 85025; 85027; 85652; 87045; 87046; 87427; 87493; 87507; 87811; 96360; 96361; 99285; G0378

== ENCOUNTER 2024-01-16 13:29 | Outpatient (OUT) | payer MEDICARE, OTHER, SELFPAY ==
--- OUTSIDE RECORDS SUMMARY | 2024-01-16 13:35 | XMS_ITS | CCD ---
Author Organization [facility] Care Team Providers Care Nail Setter Name Role Phone CHET NESBITT Unavailable Unavailable CHET NESBITT Unavailable Unavailable ERIN BERG Unavailable Unavailable PHYSICIAN, DEFAULT Unavailable Unavailable PHYSICIAN, DEFAULT Unavailable Unavailable PHYSICIAN, DEFAULT Unavailable Unavailable PHYSICIAN, DEFAULT Unavailable Unavailable Chevy Robins Unavailable Erin Berg Primary Care Physician VICENTE Beranbe, DR KHAN Consulting Unavailable HOY ., DR [...] KHAN Admitting Unavailable MARK LEE Consulting Unavailable ALGHOTHKAYLENE, MOHAMATrina Consulting Unavailable HOY ., DR KHAN Primary Care Unavailable ALGHOTHKAYLENE, ARNEL Attending Unavailable ALGHOROSETTA, MOHAMAD Admitting Unavailable HOY ., DR KHAN Consulting [...] ., DR KHAN Consulting Unavailable WEST, DR UKRT Coley Consulting Unavailable HOY ., DR KHAN Consulting Unavailable HOY ., DR KHAN Primary Care Unavailable HOY ., DR KHAN Attending Unavailable HOY ., DR KHAN Admitting Unavailable MAHNAZ, MELYSSA Admitting Unavailable MAHNAZ, MELYSSA Attending Unavailable HOY ., DR KHAN Primary Care Unavailable MAHNAZ, MELYSSA Consulting Unavailable REQUEST, NONE LISTED Consulting Unavaila ble HOY ., DR KHAN Primary Care Unavailable REQUEST, DR FAITH LISTED Attending Unavaila ble REQUEST, NONE LISTED Admitting Unavaila ble HOY ., DR [...] Unavailable HOY ., DR KHAN Admitting Unavailable Zieber, David Consulting Unavailable Darien REYNOLDS Attending Unavailable Darien REYNOLDS Attending Unavailable Alli MUKHERJEE Attending Unavailable Hoy Erin Referring Unavailable ALGHOTHANI, MOHAMAD Attending Unavailable ALGHOTHANI, MOHAMAD Attending Unavailable Allergies Allergy Classification Reported Allergen(s) Allergy Type Date of Onset Reaction(s) Facility (1 source) No Known Medication Allergies; Translations: [No Known Medication Allergies] Propensity to adverse reactions (disorder) [facility] Repository (1 source) Adhesive agent; Translations: [ADHESIVE] Propensity to adverse reactions to drug (disorder) 7 [facility]ository Medications Current Medications Medication Drug [...] (4 sources) Angiotensin Converting Enzyme Inhibitor Start: 023 take 1 tablet by mouth once daily [...] Daily, # 30 tab(s), Refills(s) 11, Pharmacy: [id number], 172, cm, 06/11/22 9:50:00 [...] Start: 11-27-2021 take 1 capsule by mo [facility] twice daily tamsulosin 0.4 mg Cap 0.4 mg = 1 cap(s), Oral, BID Start Date: 11/27/21 Status: Ordered tiZANidine 4 mg oral tablet (4 sources) Central alpha-2 Adrenergic Agonist Start: 11-27-2021 take 1 tablet by mouth every eight hours tiZANidine 4 mg Tab 4 mg = 1 tab(s), Oral, q8hr Start Date: 11/27/21 Status: Ordered take 1 tablet by [facility] every twenty-four hours tiZANidine HCl 4 MG 1 tablet as needed Orally daily Active [place] a 22968 unt oral capsule (2 sources) Vitamin A [...] RX INIT] Onset: 3 Episodic Essential hypertension (6 sources) Hypertensive disorder; Translations: [Essential (primary) hypertension] [...] 3 Chronic Other aftercare (1 source) Other [facility] (current) drug therapy; Translations: [OTH REGIONAL ACCOUNT EXECUTIVE CURRENT DRUG THERAPY] Onset: 3 Episodic Other [...] Classification Problem Date Documented Da te Episodic/Chronic Diabetes mellitus without complication (1 source) Other [...] Range Facility Office Visiton 07-07-2023 Follow-up visit [id number] Caprice Natarajan 1935 M Date Provider Department Center 07/07/2023 3848-ARNEL KELLOGG [facility] Family History Problem Relation Age of Onset Diabetes Father Hypertension Father Family Status - Relation Status Age at Father Level of Service:17346 CT OFFICE/OUTPATIENT ESTABLISHED LOW MDM 20 MIN Reason for Visit and Comments: Follow-up [242509] - 6 month follow up Normal [facility] STOOL CULTUREon 08-18-2022 Campylobacter Culture Final report Normal [facility] Comment on above: Performed By: #### C XSTOOL #### [facility] [address] [place] [address] Dr. Deepika Terrell E coli Shiga Toxin EIA Negative Normal Negative [facility] Comment on above: Performed By: #### C XSTOOL #### [facility] [address] [address] [address] Deepika Terrell Result 1 Comment Normal [facility] Comment on above: Result Comment: No S almonella or Shigella recovered. Performed By: #### C XSTOOL #### [facility] [address] [address] [address] Deepika Terrell Result Comment: No C ampylobacter species isolated. Salmonella/Shigell a Screen Final report Normal [facility] Comment on above: Performed By: #### C XSTOOL #### [facility] [address] [address] [address] Deepika Terrell C. DIFF PCRon 08-13-2022 C. DIFFICILE PCR Negative Normal NEGATIVE [facility] Comment on above: Performed By: #### B MP #### [facility] [address] [address] [address] Deepika Terrell Consultation Noteon 08-14-19 23 Consultation Note [id number]:127 Normal [facility] OCC BLD IMMUNO SCREENon 05- OCCULT BLOOD Negative Normal NEGATIVE [facility] Comment on above: Performed By: #### B #### [facility] [id number] Deepika Terrell RAD - MISCon 08-13-2022 RAD - MISC [id number]:127 Normal [facility] Physician Referralon 023 Physician Referral [id number]:127 Normal [facility] NM HEPATOBILIARY SCAN [...] DAVID ESPINAL Date: 2022-08-09 10:42 Normal [facility] US SINGLE QUAD RT UPPERon US [...] KURT JOE Date: 2022-08-08 07:42 Normal [facility] GLYCOHEMOGLOBIN A1Con 2022 ADA RECOMMENDATION SEE BELOW Normal [facility] Comment on above: Result Comment: ADA RECOMMENDED LIMIT 4.0 - 6.0 ADA THERAPEUTIC TARGET < 7.0 ACTION SUGGESTED > 7.0 Performed By: #### I NSULT #### [facility] [address] [address] [address] Deepika Terrell Glucose [Mass/Vol] 117 mg/dL Normal [facility] Comment on above: Performed By: #### I NSULT #### [facility] [address] [address] [address] Deepika Terrell HbA1c (Bld) [Mass fraction] 5.7 % Normal 4.5-6.2 [facility] Comment on above: Performed By: #### I NSULT #### [facility] [address] ABD/PELVIS WO CONon [...] MARK LEE Date: 2022-07-20 07:40 Normal [facility] CBC AUTO DIFFon 07-19-2022 BASO # 0.0 103/ul Normal 0.0-0.1 [facility] Comment on above: Performed By: #### C BC #### [facility] [address] [address] [address] Deepika Terrell Basophils/100 WBC (Bld) 0.3 % Normal 0.2-2.0 [facility] Comment on above: Performed By: #### C BC #### [facility] [address] [address] [address] Deepika Terrell EO # 0.3 103/ul Normal 0.0-0.7 [facility] Comment on above: Performed By: #### C BC #### [facility] [address] [address] [address] Deepika Terrell Eosinophils/100 WBC (Bld) 2.4 % Normal 0.9-7.0 [facility] Comment on above: Performed By: #### C BC #### [facility] [address] [address] [address] Deepika Terrell Erythrocyte distribution width (RBC) [Ratio] 14.8 % Normal 11.0-15.0 [facility] Comment on above: Performed By: #### C BC #### [facility] [address] [address] [address] Deepika Terrell Hematocrit (Bld) [Volume fraction] 33.8 % Critically low 42.0-54.0 [facility] Comment on above: Performed By: #### C BC #### [facility] [address] [place] [address] Dr. Deepika Terrell Hemoglobin (Bld) [Mass/Vol] 11.0 g/dL Critically low 14.0-18.0 [facility] Comment on above: Performed By: #### C BC #### [facility] [address] [address] [address] Deepika Terrell IG # 0.08 10e3/ul Critically high 0.00-0.03 [facility] Comment on above: Performed By: #### C BC #### [facility] [address] [address] [address] Deepika Terrell IG % 0.7 % Critically high 0.0-0.5 [facility] Comment on above: Performed By: #### C BC #### [facility] [address] [place] [address] Dr. Deepika Terrell LYMPH # 3.5 103/ul Normal 1.2-3.8 [facility] Comment on above: Performed By: #### C BC #### [facility] [address] [place] [address] Dr. Deepika Terrell Lymphocytes/100 WBC (Bld) 29.2 % Normal 20.5-60.0 [facility] Comment on above: Performed By: #### C BC #### [facility] [address] [place] [address] Dr. Deepika Terrell MANUAL DIFF REQ NO Normal [facility] Comment on above: Performed By: #### C BC #### [facility] [address] [place] [address] Dr. Deepika Terrell MCH (RBC) [Entitic mass] 29.4 pg Normal 25.9-34.0 [facility] Comment on above: Performed By: #### C BC #### [facility] [address] [place] [address] Dr. Deepika Terrell MCHC (RBC) [Mass/Vol] 32.5 g/dL Normal 29.9-35.2 [facility] Comment on above: Performed By: #### C BC #### [facility] [address] [place] [address] Dr. Deepika Terrell MCV (RBC) [Entitic vol] 90.4 fL Normal 80.0-94.0 [facility] Comment on above: Performed By: #### C BC #### [facility] [address] [address] [address] Deepika Terrell MONO # 0.7 103/ul Normal 0.3-0.8 [facility] Comment on above: Performed By: #### C BC #### [facility] [address] [address] [address] Deepika Terrell Monocytes/100 WBC (Bld) 6.1 % Normal 1.7-12.0 [facility] Comment on above: Performed By: #### C BC #### [facility] [address] [place] [address] Dr. Deepika Terrell NEUT # 7.3 103/ul Critically high 1.4-6.5 [facility] Comment on above: Performed By: #### C BC #### [facility] [address] [place] [address] Dr. Deepika Terrell Neutrophils/100 WBC (Bld) 61.3 % Normal 43.0-75.0 [facility] Comment on above: Performed By: #### C BC #### [facility] [address] [place] [address] Dr. Deepika Terrell Platelet mean volume (Bld) [Entitic vol] 10.8 fL Normal 9.5-13.5 [facility] Comment on above: Performed By: #### C BC #### [facility] [address] [place] [address] Dr. Deepika Terrell PLT 372 103/ul Normal 150-450 [facility] Comment on above: Performed By: #### C BC #### [facility] [address] [place] [address] Dr. Deepika Terrell RBC 3.74 106/ul Critically low 4.70-6.10 [facility] Comment on above: Performed By: #### C BC #### [facility] [address] [place] [address] Dr. Deepika Terrell WBC 11.9 103/ul Critically high 4.0-11.0 [facility] Comment on above: Performed By: #### C BC #### [facility] [address] [address] [address] Deepika Terrell PROF CHEM 8 (BAS METB)on Anion gap [Moles/Vol] 16.1 mmol/L Normal [facility] Comment on above: Performed By: #### I NSULT #### [facility] [address] [place] [address] Dr. Deepika Terrell Calcium [Mass/Vol] 9.0 mg/dL Normal 8.5-10.1 [facility] Comment on above: Performed By: #### I NSULT #### [facility] [address] [address] [address] Deepika Terrell Chloride [Moles/Vol] 108 mmol/L Critically high 98-107 [facility] Comment on above: Performed By: #### I NSULT #### [facility] [address] [place] [address] Dr. Deepika Terrell CO2 [Moles/Vol] 19.3 mmol/L Critically low 21.0-32.0 [facility] Comment on above: Performed By: #### I NSULT #### [facility] [address] [place] [address] Dr. Deepika Terrell Creatinine [Mass/Vol] 2.68 mg/dL Critically high 0.70-1.30 [facility] Comment on above: Performed By: #### I NSULT #### [facility] [address] [place] [address] Dr. Deepika Terrell EGFR-AF NORTHERN IRISH 27 mL/min/1.73m2 Critically low >=60 [facility] Comment on above: Performed By: #### I NSULT #### [facility] [address] [place] [address] Dr. Deepika Terrell EGFR-NON AF [place]THER[place] 23 mL/min/1.73m2 Critically low >=60 [facility] Comment on above: Performed By: #### I NSULT #### [facility] [address] [place] [address] Dr. Deepika Terrell Glucose [Mass/Vol] 138 mg/dL Critically high 74-106 [facility] Comment on above: Performed By: #### I NSULT #### [facility] [address] [place] [address] Dr. Deepika Terrell Potassium [Moles/Vol] 4.4 mmol/L Normal 3.5-5.1 [facility] Comment on above: Performed By: #### I NSULT #### [facility] [address] [address] [address] Deepika Terrell Sodium [Moles/Vol] 139 mmol/L Normal 136-145 [facility] Comment on above: Performed By: #### I NSULT #### [facility] [address] [place] [address] Dr. Deepika Terrell Urea nitrogen [Mass/Vol] 68.0 mg/dL Critically high 7.0-18.0 [facility] Comment on above: Performed By: #### I NSULT #### [facility] [address] [place] [address] Dr. Deepika Terrell Urea nitrogen/Creatinin e [Mass ratio] 25.4 mg/mg Normal [facility] Comment on above: Performed By: #### I NSULT #### [facility] [address] [place] [address] Dr. Deepika Terrell CA 19-9on 07-18-2022 CA 19-9 9 U/mL Normal 0-35 [facility] Comment on above: Result Comment: [employer] Electrochemiluminescence Immunoassay (ECLIA) . Values obtained with different assay methods or kits cannot be used interchangeably. Results cannot be interpreted as absolute evidence of the presence or absence of malignant disease. Performed By: #### B MP #### [facility] [address] [place] [address] Dr. Deepika Terrell CEAon 07-18-2022 CEA 3.1 ng/mL Normal 0.0-4.7 [facility] Comment on above: Result Comment: Nons mokers <3.9 Smokers <5.6 . [employer] Electrochemiluminescence Immunoassay (ECLIA) . Values obtained with different assay methods or kits cannot be used interchangeably. Results cannot be interpreted as absolute evidence of the presence or absence of malignant disease. Performed By: #### I NSULT #### [facility] [address] [place] [address] Dr. Deepika Terrell HELICOBACTER PYLORI AB IGMon 07-18-2022 H pylori, IgM Abs <9.0 Normal 0.0-8.9 [facility] Comment on above: Result Comment: Nega tive <9.0 Equivocal 9.0 - 11.0 Positive >11.0 . This test was developed and its performance characteristics determined by [employer] [employer]. It has not been cleared or approved by the Food and Drug Administration. Performed By: #### C PEPT #### [facility] [address] [place] [address] Dr. Deepika Terrell AMYLASEon 07-17-2022 Amylase [Catalytic activity/Vol] 38 U/L Normal 25-115 [facility] Comment on above: Performed By: #### C BC #### [facility] [address] [place] [address] Dr. Deepika Terrell CBC W MANUAL DIFFon 07-18-19 23 ATYPICAL LYMPH # Normal [facility] Comment on above: Performed By: #### E RUR #### [facility] [address] [place] [address] Dr. Deepika Terrell ATYPICAL LYMPH % Normal [facility] Comment on above: Performed By: #### E RUR #### [facility] [address] [place] [address] Dr. Deepika Terrell BAND # Normal 0.0-0.3 [facility] Comment on above: Performed By: #### E RUR #### [facility] [address] [place] [address] Dr. Deepika Terrell BAND % Normal 0-5 [facility] Comment on above: Performed By: #### E RUR #### [facility] [address] [place] [address] Dr. Deepika Terrell BASOM # 0.00 103/ul Normal 0.00-0.10 [facility] Comment on above: Performed By: #### E RUR #### [facility] [address] [place] [address] Dr. Deepika Terrell BASOM % 0.0 % Critically low 0.2-2.0 [facility] Comment on above: Performed By: #### E RUR #### [facility] [address] [address] [address] Deepika Terrell BLAST # Normal [facility] Comment on above: Performed By: #### E RUR #### [facility] [address] [place] [address] Dr. Deepika Terrell BLAST % Normal [facility] Comment on above: Performed By: #### E RUR #### [facility] [address] [place] [address] Dr. Deepika Terrell CORRECTED WBC Normal 4.0-11.0 [facility] Comment on above: Performed By: #### E RUR #### [facility] [address] [place] [address] Dr. Deepika Terrell EOS # 0.00 103/ul Normal 0.00-0.70 [facility] Comment on above: Performed By: #### E RUR #### [facility] [address] [place] [address] Dr. Deepika Terrell EOS% 0.0 % Critically low 0.9-7.0 [facility] Comment on above: Performed By: #### E RUR #### [facility] [address] [place] [address] Dr. Deepika Terrell HCT 35.9 % Critically low 42.0-54.0 [facility] Comment on above: Performed By: #### E RUR #### [facility] [address] [place] [address] Dr. Deepika Terrell HGB 11.6 g/dl Critically low 14.0-18.0 [facility] Comment on above: Performed By: #### E RUR #### [facility] [address] [place] [address] Dr. Deepika Terrell LYMPHM # 3.48 103/ul Normal 1.20-3.80 [facility] Comment on above: Performed By: #### E RUR #### [facility] [address] [place] [address] Dr. Deepika Terrell LYMPHM% 17.0 % Critically low 20.5-60.0 [facility] Comment on above: Performed By: #### E RUR #### [facility] [address] [place] [address] Dr. Deepika Terrell MCH 29.5 pg Normal 25.9-34.0 [facility] Comment on above: Performed By: #### E RUR #### [facility] [address] [place] [address] Dr. Deepika Terrell MCHC 32.3 g/dl Normal 29.9-35.2 [facility] Comment on above: Performed By: #### E RUR #### [facility] [address] [place] [address] Dr. Deepika Terrell MCV 91.3 fL Normal 80.0-94.0 [facility] Comment on above: Performed By: #### E RUR #### [facility] [address] [place] [address] Dr. Deepika Terrell METAMYELOCYTE # Normal [facility] Comment on above: Performed By: #### E RUR #### [facility] [address] [place] [address] Dr. Deepika Terrell METAMYELOCYTE % Normal [facility] Comment on above: Performed By: #### E RUR #### [facility] [address] [place] [address] Dr. Deepika Terrell MONOM# 1.23 103/ul Critically high 0.30-0.80 [facility] Comment on above: Performed By: #### E RUR #### [facility] [address] [place] [address] Dr. Deepika Terrell MONOM% 6.0 % Normal 1.7-12.0 [facility] Comment on above: Performed By: #### E RUR #### [facility] [address] [place] [address] Dr. Deepika Terrell MPV 10.8 fL Normal 9.5-13.5 [facility] Comment on above: Performed By: #### E RUR #### [facility] [address] [place] [address] Dr. Deepika Terrell MYELOCYTE # Normal [facility] Comment on above: Performed By: #### E RUR #### [facility] [address] [place] [address] Dr. Deepika Terrell MYELOCYTE % Normal [facility] Comment on above: Performed By: #### E RUR #### [facility] [address] [place] [address] Dr. Deepika Terrell NRBC Normal [facility] Comment on above: Performed By: #### E RUR #### [facility] [address] [place] [address] Dr. Deepika Terrell PLT 423 103/ul Normal 150-450 [facility] Comment on above: Performed By: #### E RUR #### [facility] [address] [place] [address] Dr. Deepika Terrell RBC 3.93 106/ul Critically low 4.70-6.10 [facility] Comment on above: Performed By: #### E RUR #### [facility] [address] [place] [address] Dr. Deepika Terrell RDW 14.7 % Normal 11.0-15.0 [facility] Comment on above: Performed By: #### E RUR #### [facility] [address] [place] [address] Dr. Deepika Terrell SEG # 15.79 103/ul Critically high 1.40-6.50 [facility] Comment on above: Performed By: #### E RUR #### [facility] [address] [place] [address] Dr. Deepika Terrell SEG % 77.0 % Critically high 43.0-75.0 [facility] Comment on above: Performed By: #### E RUR #### [facility] [address] [place] [address] Dr. Deepika Terrell WBC 20.5 103/ul Critically high 4.0-11.0 [facility] Comment on above: Performed By: #### E RUR #### [facility] [address] [place] [address] Dr. Deepika Terrell FREE THYROXINE INDEX T7on FTI 1.95 Normal 1.30-4.50 [facility] Comment on above: Performed By: #### C BC #### [facility] [address] [place] [address] Dr. Deepika Terrell T3U 39.0 % Normal 33.0-40.0 [facility] Comment on above: Performed By: #### C BC #### [facility] [address] [place] [address] Dr. Deepika Terrell T4 [Mass/Vol] 5.00 ug/dL Normal 4.50-12.10 [facility] Comment on above: Performed By: #### C BC #### [facility] [address] [place] [address] Dr. Deepika Terrell LIPASEon 07-17-2022 Lipase [Catalytic activity/Vol] 126.0 U/L Normal 73.0-393.0 [facility] Comment on above: Performed By: #### C BC #### [facility] [address] [place] [address] Dr. Deepika Terrell LIVER PROFILEon 07-17-2022 Albumin [Mass/Vol] 3.7 g/dL Normal 3.4-5.0 [facility] Comment on above: Performed By: #### C BC #### [facility] [address] [place] [address] Dr. Deepika Terrell Albumin/Globulin [Mass ratio] 1.0 {ratio} Normal [facility] Comment on above: Performed By: #### C BC #### [facility] [address] [place] [address] Dr. Deepika Terrell ALP [Catalytic activity/Vol] 82 U/L Normal 46-116 [facility] Comment on above: Performed By: #### C BC #### [facility] [address] [place] [address] Dr. Deepika Terrell ALT [Catalytic activity/Vol] 33 U/L Normal 16-63 [facility] Comment on above: Performed By: #### C BC #### [facility] [address] [place] [address] Dr. Deepika Terrell AST [Catalytic activity/Vol] 15 U/L Normal 15-37 [facility] Comment on above: Performed By: #### C BC #### [facility] [address] [place] [address] Dr. Deepika Terrell BILI, CONJUGATED 0.1 mg/dL Normal 0.0-0.2 [facility] Comment on above: Performed By: #### C BC #### [facility] [address] [place] [address] Dr. Deepika Terrell Bilirubin [Mass/Vol] 0.2 mg/dL Normal 0.2-1.0 [facility] Comment on above: Performed By: #### C BC #### [facility] [address] [place] [address] Dr. Deepika Terrell Globulin (S) [Mass/Vol] 3.6 g/dL Normal [facility] Comment on above: Performed By: #### C BC #### [facility] [address] [place] [address] Dr. Deepika Terrell Protein [Mass/Vol] 7.3 g/dL Normal 6.4-8.2 [facility] Comment on above: Performed By: #### C BC #### [facility] [address] [place] [address] Dr. Deepika Terrell PERIPHERAL SMEARon 3 Pathologist Cyto stain Nom (Cvx/Vag) [ID] DR. ANNIKA NIETO Normal [facility] Comment on above: Result Comment: revi ew of smear reveals n/n w/aniso. plts. normal. leukocytosis with neutrophili and absolute monocytosis. no atypical lymphs, immature blasts seen. these findings are suggestive of a reactive process. clinical correlation is recommend Performed By: #### P ERSMR #### [facility] [address] [place] [address] Dr. Deepika Terrell PROF CHEM 8 (BAS METB)on Anion gap [Moles/Vol] 19.0 mmol/L Normal [facility] Comment on above: Performed By: #### C BC #### [facility] [address] [address] [address] Deepika Terrell Calcium [Mass/Vol] 9.5 mg/dL Normal 8.5-10.1 [facility] Comment on above: Performed By: #### C BC #### [facility] [address] [address] [address] Deepika Terrell Chloride [Moles/Vol] 112 mmol/L Critically high 98-107 [facility] Comment on above: Performed By: #### C BC #### [facility] [address] [address] [address] Deepika Terrell CO2 [Moles/Vol] 19.4 mmol/L Critically low 21.0-32.0 [facility] Comment on above: Performed By: #### C BC #### [facility] [address] [address] [address] Deepika Terrell Creatinine [Mass/Vol] 2.51 mg/dL Critically high 0.70-1.30 [facility] Comment on above: Performed By: #### C BC #### [facility] [address] [address] [address] Deepika Terrell EGFR-AF NORTHER[place] IRISH 30 mL/min/1.73m2 Critically low >=60 [facility] Comment on above: Performed By: #### C BC #### [facility] [address] [address] [address] Deepika Terrell EGFR-NON AF [place] 24 mL/min/1.73m2 Critically low >=60 [facility] Comment on above: Performed By: #### C BC #### [facility] [address] [address] [address] Deepika Terrell Glucose [Mass/Vol] 159 mg/dL Critically high 74-106 [facility] Comment on above: Performed By: #### C BC #### [facility] [address] [address] [address] Deepika Terrell Potassium [Moles/Vol] 4.4 mmol/L Normal 3.5-5.1 [facility] Comment on above: Performed By: #### C BC #### [facility] [address] [place] [address] Dr. Deepika Terrell Sodium [Moles/Vol] 146 mmol/L Critically high 136-145 [facility] Comment on above: Performed By: #### C BC #### [facility] [address] [place] [address] Dr. Deepika Terrell Urea nitrogen [Mass/Vol] 67.0 mg/dL Critically high 7.0-18.0 [facility] Comment on above: Performed By: #### C BC #### [facility] [address] [place] [address] Dr. Deepika Terrell Urea nitrogen/Creatinin e [Mass ratio] 26.7 mg/mg Normal [facility] Comment on above: Performed By: #### C BC #### [facility] [address] [place] [address] Dr. Deepika Terrell TSHon 07-17-2022 TSH 0.884 uIU/mL Normal 0.358-3.740 [facility] Comment on above: Performed By: #### C BC #### [facility] [address] [place] [address] Dr. Deepika Terrell INSULIN FREE AND TOTALon Free Insulin 22 uU/mL Critically high [facility] Comment on above: Result Comment: Refe rence Range: Pubertal Children and Adults (fasting): 0 - 17 Performed By: #### I NSULT #### [facility] [address] [place] [address] Dr. Deepika Terrell Total Insulin 22 uU/mL Normal [facility] Comment on above: Result Comment: Non- [...] developed and its performance characteristics determined by [facility]. It has not been cleared or approved by the Food and Drug Administration. Performed By: #### I NSULT #### [facility] [address] [place] [address] Dr. Deepika Terrell C-PEPTIDE, SERUMon 3 C-Peptide, Serum 7.7 ng/mL Critically high 1.1-4.4 [facility] Comment on above: Result Comment: C-Pe ptide reference interval is for fasting patients. Performed By: #### C PEPT #### [facility] [address] [place] [address] Dr. Deepika Terrell OVA AND PARASITE EXAMINATION on 06-04-2022 Ova + Parasite Exam Final report Normal [facility] Comment on above: Result Comment: Thes e results were obtained using wet preparation(s) and trichrome stained smear. This test does not include testing for Cryptosporidium parvum, Cyclospora, or Microsporidia. Performed By: #### B MP #### [facility] [address] [place] [address] Dr. Deepika Terrell Result 1 Comment Normal [facility] Comment on above: Result Comment: No o va, cysts, or parasites seen. . One negative specimen does not rule out the possibility of a parasitic infection. Performed By: #### B MP #### [facility] [address] [place] [address] Dr. Deepika Terrell CBC AUTO DIFFon 06-02-2022 BASO # 0.0 103/ul Normal 0.0-0.1 [facility] Comment on above: Performed By: #### I NSULT #### [facility] [address] [place] [address] Dr. Deepika Terrell Basophils/100 WBC (Bld) 0.4 % Normal 0.2-2.0 [facility] Comment on above: Performed By: #### I NSULT #### [facility] [address] [place] [address] Dr. Deepika Terrell EO # 0.4 103/ul Normal 0.0-0.7 [facility] Comment on above: Performed By: #### I NSULT #### [facility] [address] [place] [address] Dr. Deepika Terrell Eosinophils/100 WBC (Bld) 3.3 % Normal 0.9-7.0 [facility] Comment on above: Performed By: #### I NSULT #### [facility] [address] [place] [address] Dr. Deepika Terrell Erythrocyte distribution width (RBC) [Ratio] 14.6 % Normal 11.0-15.0 [facility] Comment on above: Performed By: #### I NSULT #### [facility] [address] [place] [address] Dr. Deepika Terrell Hematocrit (Bld) [Volume fraction] 29.8 % Critically low 42.0-54.0 [facility] Comment on above: Performed By: #### I NSULT #### [facility] [address] [place] [address] Dr. Deepika Terrell Hemoglobin (Bld) [Mass/Vol] 9.8 g/dL Critically low 14.0-18.0 [facility] Comment on above: Performed By: #### I NSULT #### [facility] [address] [place] [address] Dr. Deepika Terrell IG # 0.05 10e3/ul Critically high 0.00-0.03 [facility] Comment on above: Performed By: #### I NSULT #### [facility] [address] [place] [address] Dr. Deepika Terrell IG % 0.5 % Normal 0.0-0.5 [facility] Comment on above: Performed By: #### I NSULT #### [facility] [address] [place] [address] Dr. Deepika Terrell LYMPH # 1.9 103/ul Normal 1.2-3.8 [facility] Comment on above: Performed By: #### I NSULT #### [facility] [address] [place] [address] Dr. Depeika Terrell Lymphocytes/100 WBC (Bld) 17.3 % Critically low 20.5-60.0 [facility] Comment on above: Performed By: #### I NSULT #### [facility] [address] [place] [address] Dr. Deepika Terrell MANUAL DIFF REQ NO Normal [facility] Comment on above: Performed By: #### I NSULT #### [facility] [address] [place] [address] Dr. Deepika Terrell MCH (RBC) [Entitic mass] 29.9 pg Normal 25.9-34.0 [facility] Comment on above: Performed By: #### I NSULT #### [facility] [address] [place] [address] Dr. Deepika Terrell MCHC (RBC) [Mass/Vol] 32.9 g/dL Normal 29.9-35.2 [facility] Comment on above: Performed By: #### I NSULT #### [facility] [address] [place] [address] Dr. Deepika Terrell MCV (RBC) [Entitic vol] 90.9 fL Normal 80.0-94.0 [facility] Comment on above: Performed By: #### I NSULT #### [facility] [address] [place] [address] Dr. Deepika Terrell MONO # 0.8 103/ul Normal 0.3-0.8 [facility] Comment on above: Performed By: #### I NSULT #### [facility] [address] [place] [address] Dr. Deepika Terrell Monocytes/100 WBC (Bld) 7.4 % Normal 1.7-12.0 [facility] Comment on above: Performed By: #### I NSULT #### [facility] [address] [place] [address] Dr. Deepika Terrell NEUT # 7.9 103/ul Critically high 1.4-6.5 [facility] Comment on above: Performed By: #### I NSULT #### [facility] [address] [place] [address] Dr. Deepika Terrell Neutrophils/100 WBC (Bld) 71.1 % Normal 43.0-75.0 [facility] Comment on above: Performed By: #### I NSULT #### [facility] [address] [address] [address] Deepika Terrell Platelet mean volume (Bld) [Entitic vol] 10.7 fL Normal 9.5-13.5 [facility] Comment on above: Performed By: #### I NSULT #### [facility] [address] [address] [address] Deepika Terrell PLT 295 103/ul Normal 150-450 [facility] Comment on above: Performed By: #### I NSULT #### [facility] [address] [address] [address] Deepika Terrell RBC 3.28 106/ul Critically low 4.70-6.10 [facility] Comment on above: Performed By: #### I NSULT #### [facility] [address] [place] [address] Dr. Deepika Terrell WBC 11.1 103/ul Critically high 4.0-11.0 [facility] Comment on above: Performed By: #### I NSULT #### [facility] [address] [place] [address] ABD/PELV W CONon [...] YANIV DACOSTA Date: 2022-06-01 22:50 Normal [facility]09 SARS-CoV-2 (COVID-19) RNA DANICA+probe Ql (Unsp spec) Not detected Normal NOT DETECTED [facility] Comment on above: Result Comment: When [...] for this test is supported by the Electronic Train Control Technician of Health and Human Service's declaration that [...] used). Performed By: #### I NSULT #### [facility] [address] [place] [address] Dr. Deepika Terrell ER URINE PROFILEon 3 Bilirubin Ql (U) Negative Normal NEGATIVE [facility] Comment on above: Performed By: #### E RUR #### [facility] [address] [place] [address] Dr. Deepika Terrell Clarity (U) CLEAR Normal CLEAR [facility] Comment on above: Performed By: #### E RUR #### [facility] [address] [place] [address] Dr. Deepika Terrell Color (U) LT. YELLOW Normal YELLOW [facility] Comment on above: Performed By: #### E RUR #### [facility] [address] [place] [address] Dr. Deepika Terrell ERUAHD A micrscopic examina tion will be performed if indicated. Normal [facility] Comment on above: Performed By: #### E RUR #### [facility] [address] [place] [address] Dr. Deepika Terrell Glucose Ql (U) Negative Normal NEGATIVE [facility] Comment on above: Performed By: #### E RUR #### [facility] [address] [place] [address] Dr. Deepika Terrell Hemoglobin Ql (U) Negative Normal NEGATIVE [facility] Comment on above: Performed By: #### E RUR #### [facility] [address] [place] [address] Dr. Deepika Terrell Ketones Ql (U) Negative Normal NEGATIVE [facility] Comment on above: Performed By: #### E RUR #### [facility] [address] [place] [address] Dr. Deepika Terrell LEUKOCYTES Negative Normal NEGATIVE [facility] Comment on above: Performed By: #### E RUR #### [facility] [address] [place] [address] Dr. Deepika Terrell Nitrite Ql (U) Negative Normal NEGATIVE [facility] Comment on above: Performed By: #### E RUR #### [facility] [address] [place] [address] Dr. Deepika Terrell pH (U) 6.0 [pH] Normal 5-9 [facility] Comment on above: Performed By: #### E RUR #### [facility] [address] [place] [address] Dr. Deepika Terrell SPEC GRAVITY 1.010 Normal 1.005-<=1.02 5 [facility] Comment on above: Performed By: #### E RUR #### [facility] [address] [place] [address] Dr. Deepika Terrell UA PROTEIN Negative Normal NEGATIVE/ TRACE [facility] Comment on above: Performed By: #### E RUR #### [facility] [address] [place] [address] Dr. Deepika Terrell UR MICRO IND NOT INDICATED Normal [facility] Comment on above: Performed By: #### E RUR #### [facility] [address] [place] [address] Dr. Deepika Terrell Urobilinogen Qn (U) 0.2 {Jesus'U}/dL Normal 0.2 - 1.0 [facility] Comment on above: Performed By: #### E RUR #### [facility] [address] [place] [address] Dr. Deepika Terrell GLYCOHEMOGLOBIN A1Con 2022 ADA RECOMMENDATION SEE BELOW Normal [facility] Comment on above: Result Comment: ADA RECOMMENDED LIMIT 4.0 - 6.0 ADA THERAPEUTIC TARGET < 7.0 ACTION SUGGESTED > 7.0 Performed By: #### I NSULT #### [facility] [address] [place] [address] Dr. Deepika Terrell Glucose [Mass/Vol] 134 mg/dL Normal [facility] Comment on above: Performed By: #### I NSULT #### [facility] [address] [place] [address] Dr. Deepika Terrell HbA1c (Bld) [Mass fraction] 6.3 % Critically high 4.5-6.2 [facility] Comment on above: Performed By: #### I NSULT #### [facility] [address] [address] [address] Deepika Terrell POINT OF CARE GLUCOSEon 05-09 Glucose [Mass/Vol] 175 mg/dL Critically high 74-106 [facility] Comment on above: Performed By: #### I NSULT #### [facility] [address] [address] [address] Deepika Terrell Glucose [Mass/Vol] 151 mg/dL Critically high 74-106 [facility] Comment on above: Performed By: #### I NSULT #### [facility] [address] [address] [address] Deepika Terrell Glucose [Mass/Vol] 95 mg/dL Normal 74-106 [facility] Comment on above: Performed By: #### C BC #### [facility] [address] [place] [address] Dr. Deepika Terrell Glucose [Mass/Vol] 83 mg/dL Normal 74-106 [facility] Comment on above: Performed By: #### I NSULT #### [facility] [address] [address] [address] Deepika Terrell Glucose [Mass/Vol] 63 mg/dL Critically low 74-106 [facility] Comment on above: Performed By: #### P ERSMR #### [facility] [address] [place] [address] Dr. Deepika Trerell Glucose [Mass/Vol] 48 mg/dL Critically low 74-106 [facility] Comment on above: Result Comment: Resu lt Not Confirmed Performed By: #### B MP #### [facility] [address] [address] [address] Deepika Terrell Glucose [Mass/Vol] 62 mg/dL Critically low 74-106 [facility] Comment on above: Performed By: #### B MP #### [facility] [address] [address] [address] Deepika Terrell Glucose [Mass/Vol] 61 mg/dL Critically low 74-106 [facility] Comment on above: Performed By: #### C PEPT #### [facility] [address] [address] [address] Deepika Terrell PROF CHEM 8 (BAS METB)on Anion gap [Moles/Vol] 11.6 mmol/L Normal [facility] Comment on above: Performed By: #### B MP #### [facility] [address] [address] [address] Deepika Terrell Calcium [Mass/Vol] 8.2 mg/dL Critically low 8.5-10.1 [facility] Comment on above: Performed By: #### B MP #### [facility] [address] [address] [address] Deepika Terrell Chloride [Moles/Vol] 111 mmol/L Critically high 98-107 [facility] Comment on above: Performed By: #### B MP #### [facility] [address] [address] [address] Deepika Terrell CO2 [Moles/Vol] 23.5 mmol/L Normal 21.0-32.0 [facility] Comment on above: Performed By: #### B MP #### [facility] [address] [address] [address] Deepika Terrell Creatinine [Mass/Vol] 1.32 mg/dL Critically high 0.70-1.30 [facility] Comment on above: Performed By: #### B MP #### [facility] [address] [address] [address] Deepika Terrell EGFR-AF [place]THER[place] >60 Normal >=60 [facility] Comment on above: Performed By: #### B MP #### [facility] [address] [address] [address] Deepika Terrell EGFR-NON AF [place] 51 mL/min/1.73m2 Critically low >=60 [facility] Comment on above: Performed By: #### B MP #### [facility] [address] [address] [address] Deepika Terrell Glucose [Mass/Vol] 91 mg/dL Normal 74-106 [facility] Comment on above: Performed By: #### B MP #### [facility] [address] [address] [address] Deepika Terrell Potassium [Moles/Vol] 4.1 mmol/L Normal 3.5-5.1 [facility] Comment on above: Performed By: #### B MP #### [facility] [address] [address] [address] Deepika Terrell Sodium [Moles/Vol] 142 mmol/L Normal 136-145 [facility] Comment on above: Performed By: #### B MP #### [facility] [address] [address] [address] Deepika Terrell Urea nitrogen [Mass/Vol] 29.0 mg/dL Critically high 7.0-18.0 [facility] Comment on above: Performed By: #### B MP #### [facility] [address] [place] [address] Dr. Deepika Terrell Urea nitrogen/Creatinin e [Mass ratio] 22.0 mg/mg Normal [facility] Comment on above: Performed By: #### B MP #### [facility] [address] [place] [address] Dr. Deepika Terrell AMMONIAon 06-01-2022 Ammonia (P) [Moles/Vol] 17 umol/L Normal 11-32 [facility] Comment on above: Performed By: #### C BC #### [facility] [address] [place] [address] Dr. Deepika Terrell BNPon 06-01-2022 Natriuretic peptide B (Bld) [Mass/Vol] 132.0 pg/mL Normal <=1,800.0 [facility] Comment on above: Performed By: #### C BC #### [facility] [address] [place] [address] Dr. Deepika Terrell CBC AUTO DIFFon 06-01-2022 BASO # 0.1 103/ul Normal 0.0-0.1 [facility] Comment on above: Performed By: #### C BC #### [facility] [address] [place] [address] Dr. Deepika Terrell Basophils/100 WBC (Bld) 0.3 % Normal 0.2-2.0 [facility] Comment on above: Performed By: #### C BC #### [facility] [address] [place] [address] Dr. Deepika Terrell EO # 0.1 103/ul Normal 0.0-0.7 [facility] Comment on above: Performed By: #### C BC #### [facility] [address] [place] [address] Dr. Deepika Terrell Eosinophils/100 WBC (Bld) 0.9 % Normal 0.9-7.0 [facility] Comment on above: Performed By: #### C BC #### [facility] [address] [place] [address] Dr. Deepika Terrell Erythrocyte distribution width (RBC) [Ratio] 14.7 % Normal 11.0-15.0 [facility] Comment on above: Performed By: #### C BC #### [facility] [address] [place] [address] Dr. Deepika Terrell Hematocrit (Bld) [Volume fraction] 33.6 % Critically low 42.0-54.0 [facility] Comment on above: Performed By: #### C BC #### [facility] [address] [place] [address] Dr. Deepika Terrell Hemoglobin (Bld) [Mass/Vol] 10.9 g/dL Critically low 14.0-18.0 [facility] Comment on above: Performed By: #### C BC #### [facility] [address] [place] [address] Dr. Deepika Terrell IG # 0.07 10e3/ul Critically high 0.00-0.03 [facility] Comment on above: Performed By: #### C BC #### [facility] [address] [place] [address] Dr. Deepika Terrell IG % 0.5 % Normal 0.0-0.5 [facility] Comment on above: Performed By: #### C BC #### [facility] [address] [place] [address] Dr. Deepika Terrell LYMPH # 1.5 103/ul Normal 1.2-3.8 [facility] Comment on above: Performed By: #### C BC #### [facility] [address] [place] [address] Dr. Deepika Terrell Lymphocytes/100 WBC (Bld) 10.3 % Critically low 20.5-60.0 [facility] Comment on above: Performed By: #### C BC #### [facility] [address] [place] [address] Dr. Deepika Terrell MANUAL DIFF REQ NO Normal [facility] Comment on above: Performed By: #### C BC #### [facility] [address] [place] [address] Dr. Deepika Terrell MCH (RBC) [Entitic mass] 29.9 pg Normal 25.9-34.0 [facility] Comment on above: Performed By: #### C BC #### [facility] [address] [place] [address] Dr. Deepika Terrell MCHC (RBC) [Mass/Vol] 32.4 g/dL Normal 29.9-35.2 [facility] Comment on above: Performed By: #### C BC #### [facility] [address] [place] [address] Dr. Deepika Terrell MCV (RBC) [Entitic vol] 92.1 fL Normal 80.0-94.0 [facility] Comment on above: Performed By: #### C BC #### [facility] [address] [place] [address] Dr. Deepika Terrell MONO # 1.3 103/ul Critically high 0.3-0.8 [facility] Comment on above: Performed By: #### C BC #### [facility] [address] [place] [address] Dr. Deepika Terrell Monocytes/100 WBC (Bld) 8.9 % Normal 1.7-12.0 [facility] Comment on above: Performed By: #### C BC #### [facility] [address] [place] [address] Dr. Deepika Terrell NEUT # 11.8 103/ul Critically high 1.4-6.5 [facility] Comment on above: Performed By: #### C BC #### [facility] [address] [address] [address] Deepika Terrell Neutrophils/100 WBC (Bld) 79.1 % Critically high 43.0-75.0 [facility] Comment on above: Performed By: #### C BC #### [facility] [address] [address] [address] Deepika Terrell Platelet mean volume (Bld) [Entitic vol] 11.4 fL Normal 9.5-13.5 [facility] Comment on above: Performed By: #### C BC #### [facility] [address] [address] [address] Deepika Terrell PLT 324 103/ul Normal 150-450 [facility] Comment on above: Performed By: #### C BC #### [facility] [address] [address] [address] Deepika Terrell RBC 3.65 106/ul Critically low 4.70-6.10 [facility] Comment on above: Performed By: #### C BC #### [facility] [address] [address] [address] Deepika Terrell WBC 14.9 103/ul Critically high 4.0-11.0 [facility] Comment on above: Performed By: #### C BC #### [facility] [address] [address] [address] Deepika Terrell POINT OF CARE GLUCOSEon 05-09 Glucose [Mass/Vol] 29 mg/dL Critically low 74-106 [facility] Comment on above: Result Comment: Resu lt Not Confirmed Performed By: #### B MP #### [facility] [address] [address] [address] Deepika Terrell Glucose [Mass/Vol] 28 mg/dL Critically low -106 [facility] Comment on above: Result Comment: Will Repeat Test Performed By: #### C PEPT #### [facility] [address] [address] [address] Deepika Terrell PROF 14(COMP METB)on 02-25-2 023 Albumin [Mass/Vol] 3.3 g/dL Critically low 3.4-5.0 [facility] Comment on above: Performed By: #### C BC #### [facility] [address] [place] [address] Dr. Deepika Terrell Albumin/Globulin [Mass ratio] 1.0 {ratio} Normal [facility] Comment on above: Performed By: #### C BC #### [facility] [address] [place] [address] Dr. Deepika Terrell ALP [Catalytic activity/Vol] 75 U/L Normal 46-116 [facility] Comment on above: Performed By: #### C BC #### [facility] [address] [place] [address] Dr. Deepika Terrell ALT [Catalytic activity/Vol] 34 U/L Normal 16-63 [facility] Comment on above: Performed By: #### C BC #### [facility] [address] [place] [address] Dr. Deepika Terrell Anion gap [Moles/Vol] 14.0 mmol/L Normal [facility] Comment on above: Performed By: #### C BC #### [facility] [address] [place] [address] Dr. Deepika Terrell AST [Catalytic activity/Vol] 19 U/L Normal 15-37 [facility] Comment on above: Performed By: #### C BC #### [facility] [address] [place] [address] Dr. Deepika Terrell Bilirubin [Mass/Vol] 0.2 mg/dL Normal 0.2-1.0 [facility] Comment on above: Performed By: #### C BC #### [facility] [address] [place] [address] Dr. Deepika Terrell Calcium [Mass/Vol] 8.6 mg/dL Normal 8.5-10.1 [facility] Comment on above: Performed By: #### C BC #### [facility] [address] [place] [address] Dr. Deepika Terrell Chloride [Moles/Vol] 109 mmol/L Critically high 98-107 [facility] Comment on above: Performed By: #### C BC #### [facility] [address] [address] [address] Deepika Terrell CO2 [Moles/Vol] 23.9 mmol/L Normal 21.0-32.0 [facility] Comment on above: Performed By: #### C BC #### [facility] [address] [address] [address] Deepika Terrell Creatinine [Mass/Vol] 1.59 mg/dL Critically high 0.70-1.30 [facility] Comment on above: Performed By: #### C BC #### [facility] [address] [address] [address] Deepika Terrell EGFR-AF [place]THER[place] 50 mL/min/1.73m2 Critically low >=60 [facility] Comment on above: Performed By: #### C BC #### [facility] [address] [address] [address] Deepika Terrell EGFR-NON AF [place] 41 mL/min/1.73m2 Critically low >=60 [facility] Comment on above: Performed By: #### C BC #### [facility] [address] [address] [address] Deepika Terrell Globulin (S) [Mass/Vol] 3.3 g/dL Normal [facility] Comment on above: Performed By: #### C BC #### [facility] [address] [address] [address] Deepika Terrell Glucose [Mass/Vol] 26 mg/dL Critically low 74-106 [facility] Comment on above: Performed By: #### C BC #### [facility] [address] [address] [address] Deepika Terrell Potassium [Moles/Vol] 3.9 mmol/L Normal 3.5-5.1 [facility] Comment on above: Performed By: #### C BC #### [facility] [address] [address] [address] Deepika Terrell Protein [Mass/Vol] 6.6 g/dL Normal 6.4-8.2 [facility] Comment on above: Performed By: #### C BC #### [facility] [address] [address] [address] Deepika Terrell Sodium [Moles/Vol] 143 mmol/L Normal 136-145 [facility] Comment on above: Performed By: #### C BC #### [facility] [address] [address] [address] Deepika Terrell Urea nitrogen [Mass/Vol] 34.0 mg/dL Critically high 7.0-18.0 [facility] Comment on above: Performed By: #### C BC #### [facility] [address] [address] [address] Deepika Terrell Urea nitrogen/Creatinin e [Mass ratio] 21.4 mg/mg Normal [facility] Comment on above: Performed By: #### C BC #### [facility] [address] [place] [address] Dr. Deepika Terrell TROPONIN, HIGH SENSITIVITYon 06-01-2022 HSTROP 13.2 pg/mL Normal 4.0-76.1 [facility] Comment on above: Result Comment: CUT- OFF POINTS HAVE BEEN ESTABLISHED BASED ON THE FOURTH UNIVERSAL DEFINITIONS OF MYOCARDIAL INFARCTION. THE UPPER REFERENCE LIMIT (URL) OF TROPONIN, DEFINED THE 99TH PERCENTILE OF cTnI DISTRIBUTION IN A REFERENCE POPULATION, HAS BEEN CONFIRMED THE DECISION THRESHOLD FOR AR DIAGNOSIS. Performed By: #### B MP #### [facility] [address] [place] [address] Dr. Deepika Terrell GI PANEL (PCR)on 05-30-2022 Adenovirus F 40/41 Not detected Normal NOT DETECTED [facility] Comment on above: Performed By: #### P ERSMR #### [facility] [address] [place] [address] Dr. Deepika Terrell Astrovirus Not detected Normal NOT DETECTED [facility] Comment on above: Performed By: #### P ERSMR #### [facility] [address] [place] [address] Dr. Deepika Sharp. Diff toxin A/B Not detected Normal NOT DETECTED [facility] Comment on above: Performed By: #### P ERSMR #### [facility] [address] [address] [address] Deepika Terrell Campylobacter Not detected Normal NOT DETECTED [facility] Comment on above: Performed By: #### P ERSMR #### [facility] [address] [address] [address] Deepika Terrell Cryptosporidium Not detected Normal NOT DETECTED [facility] Comment on above: Performed By: #### P ERSMR #### [facility] [address] [address] [address] Deepika Terrell Cyclos. Cayetanensis Not detected Normal NOT DETECTED [facility] Comment on above: Performed By: #### P ERSMR #### [facility] [address] [place] [address] Dr. Deepika Terrell E. Coli O157 Not Applicable Normal Not Applicable [facility] Comment on above: Performed By: #### P ERSMR #### [facility] [address] [place] [address] Dr. Deepika Terrell E. histolytica Not detected Normal NOT DETECTED [facility] Comment on above: Performed By: #### P ERSMR #### [facility] [address] [place] [address] Dr. Deepika Terrell EAEC Not detected Normal NOT DETECTED [facility] Comment on above: Performed By: #### P ERSMR #### [facility] [address] [place] [address] Dr. Deepika Terrell EIEC Not detected Normal NOT DETECTED [facility] Comment on above: Performed By: #### P ERSMR #### [facility] [address] [place] [address] Dr. Deepika Terrell EPEC Not detected Normal NOT DETECTED [facility] Comment on above: Performed By: #### P ERSMR #### [facility] [address] [place] [address] Dr. Deepika Terrell ETEC Not detected Normal NOT DETECTED [facility] Comment on above: Performed By: #### P ERSMR #### [facility] [address] [place] [address] Dr. Deepika Terrell G. Lamblia Not detected Normal NOT DETECTED [facility] Comment on above: Performed By: #### P ERSMR #### [facility] [address] [address] [address] Deepika WOLFE CONTROLS PASSED Normal [facility] Comment on above: Performed By: #### P ERSMR #### [facility] [address] [address] [address] Deepika RYAN HEADER GI PANEL BACTERIA Normal [facility] Comment on above: Performed By: #### P ERSMR #### [facility] [address] [address] [address] Deepika CACERES ECOLI GI PANEL DIARRHEAGEN IC E.COLI / SHIGELLA Normal [facility] Comment on above: Performed By: #### P ERSMR #### [facility] [address] [address] [address] Deepika CACERES INFO SEE BELOW Normal [facility] Comment on above: Result Comment: EAEC - Enteroaggregative E. Coli EPEC- Enteropathogenic E. Coli ETEC- Enterotoxigenic E. Coli lt/st STEC- Shigella-like toxin-producing E. Coli stx1/stx2 EIEC- Shigella/Enteroinvasive E. Coli Performed By: #### P ERSMR #### [facility] [address] [address] [address] Deepika CACERES PARASITES GI PANEL PARASITES Normal [facility] Comment on above: Performed By: #### P ERSMR #### [facility] [address] [address] [address] Deepika CACERES VIRUS GI PANEL VIRUSES Normal [facility] Comment on above: Performed By: #### P ERSMR #### [facility] [address] [address] [address] Deepika Terrell Norovirus GI/GII Not detected Normal NOT DETECTED [facility] Comment on above: Performed By: #### P ERSMR #### [facility] [address] [address] [address] Deepika Blood. Shigelloides Not detected Normal NOT DETECTED [facility] Comment on above: Performed By: #### P ERSMR #### [facility] [address] [place] [address] Dr. Deepika Terrell Rotavirus A Not detected Normal NOT DETECTED [facility] Comment on above: Performed By: #### P ERSMR #### [facility] [address] [place] [address] Dr. Deepika Terrell Salmonella Not detected Normal NOT DETECTED [facility] Comment on above: Performed By: #### P ERSMR #### [facility] [address] [place] [address] Dr. Deepika Terrell Sapovirus Not detected Normal NOT DETECTED [facility] Comment on above: Performed By: #### P ERSMR #### [facility] [address] [place] [address] Dr. Deepika Terrell STEC Not detected Normal NOT DETECTED [facility] Comment on above: Performed By: #### P ERSMR #### [facility] [address] [place] [address] Dr. Deepika Terrell Vibrio Not detected Normal NOT DETECTED [facility] Comment on above: Performed By: #### P ERSMR #### [facility] [address] [place] [address] Dr. Deepika Terrell Vibrio Cholera Not detected Normal NOT DETECTED [facility] Comment on above: Performed By: #### P ERSMR #### [facility] [address] [place] [address] Dr. Deepika Terrell Y. Enterocolitica Not detected Normal NOT DETECTED [facility] Comment on above: Performed By: #### P ERSMR #### [facility] [address] [place] [address] Dr. Deepika Terrell PROF CHEM 8 (BAS METB)on Anion gap [Moles/Vol] 13.9 mmol/L Normal [facility] Comment on above: Performed By: #### P ERSMR #### [facility] [address] [place] [address] Dr. Deepika Terrell Calcium [Mass/Vol] 8.9 mg/dL Normal 8.5-10.1 [facility] Comment on above: Performed By: #### P ERSMR #### [facility] [address] [address] [address] Deepika Terrell Chloride [Moles/Vol] 104 mmol/L Normal 98-107 [facility] Comment on above: Performed By: #### P ERSMR #### [facility] [address] [address] [address] Deepika Terrell CO2 [Moles/Vol] 26.3 mmol/L Normal 21.0-32.0 [facility] Comment on above: Performed By: #### P ERSMR #### [facility] [address] [address] [address] Deepika Terrell Creatinine [Mass/Vol] 1.70 mg/dL Critically high 0.70-1.30 [facility] Comment on above: Performed By: #### P ERSMR #### [facility] [address] [address] [address] Deepika Terrell EGFR-AF [place] 47 mL/min/1.73m2 Critically low >=60 [facility] Comment on above: Performed By: #### P ERSMR #### [facility] [address] [address] [address] Deepika Terrell EGFR-NON AF [place] 38 mL/min/1.73m2 Critically low >=60 [facility] Comment on above: Performed By: #### P ERSMR #### [facility] [address] [address] [address] Deepika Terrell Glucose [Mass/Vol] 62 mg/dL Critically low 74-106 [facility] Comment on above: Performed By: #### P ERSMR #### [facility] [address] [address] [address] Deepika Terrell Potassium [Moles/Vol] 4.2 mmol/L Normal 3.5-5.1 [facility] Comment on above: Performed By: #### P ERSMR #### [facility] [address] [address] [address] Deepika Terrell Sodium [Moles/Vol] 140 mmol/L Normal 136-145 [facility] Comment on above: Performed By: #### P ERSMR #### [facility] [address] [address] [address] Deepika Terrell Urea nitrogen [Mass/Vol] 34.0 mg/dL Critically high 7.0-18.0 [facility] Comment on above: Performed By: #### P ERSMR #### [facility] [address] [address] [address] Deepika Terrell Urea nitrogen/Creatinin e [Mass ratio] 20.0 mg/mg Normal [facility] Comment on above: Performed By: #### P ERSMR #### [facility] [address] [address] [address] Deepika Terrell ECHOCARDIO M/2D COMPLETEon 1 06-02-2021 ECHOCARDIO M/2D COMPLETE Patient: LILIANA NATARAJAN Exam Date: 04/01/2022 : 1935 Gender:M Ordering : ARNEL KELLOGG Admission #: [id number] Family : Order #: [id number] CLICK HERE TO VIEW EXAM ECHOCARDIOGRAM REPORT [...] M.D. on 04/09/2022 at 08:52 Normal [facility] CBC AUTO DIFFon 02-05-2022 BASO # 0.1 103/ul Normal 0.0-0.1 [facility] Comment on above: Performed By: #### C BC #### [facility] [address] [address] [address] Deepika Terrell Basophils/100 WBC (Bld) 0.5 % Normal 0.2-2.0 [facility] Comment on above: Performed By: #### C BC #### [facility] [address] [address] [address] Deepika Terrell EO # 0.3 103/ul Normal 0.0-0.7 [facility] Comment on above: Performed By: #### C BC #### [facility] [address] [address] [address] Deepika Terrell Eosinophils/100 WBC (Bld) 3.3 % Normal 0.9-7.0 [facility] Comment on above: Performed By: #### C BC #### [facility] [address] [place] [address] Dr. Deepika Terrell Erythrocyte distribution width (RBC) [Ratio] 14.0 % Normal 11.0-15.0 [facility] Comment on above: Performed By: #### C BC #### [facility] [address] [address] [address] Deepika Terrell Hematocrit (Bld) [Volume fraction] 41.2 % Critically low 42.0-54.0 [facility] Comment on above: Performed By: #### C BC #### [facility] [address] [address] [address] Deepika Terrell Hemoglobin (Bld) [Mass/Vol] 13.4 g/dL Critically low 14.0-18.0 [facility] Comment on above: Performed By: #### C BC #### [facility] [address] [address] [address] Deepika Terrell IG # 0.04 10e3/ul Critically high 0.00-0.03 [facility] Comment on above: Performed By: #### C BC #### [facility] [address] [place] [address] Dr. Deepika Terrell IG % 0.4 % Normal 0.0-0.5 [facility] Comment on above: Performed By: #### C BC #### [facility] [address] [place] [address] Dr. Deepika Terrell LYMPH # 3.4 103/ul Normal 1.2-3.8 [facility] Comment on above: Performed By: #### C BC #### [facility] [address] [place] [address] Dr. Deepika Terrell Lymphocytes/100 WBC (Bld) 36.2 % Normal 20.5-60.0 [facility] Comment on above: Performed By: #### C BC #### [facility] [address] [place] [address] Dr. Deepika Terrell MANUAL DIFF REQ NO Normal [facility] Comment on above: Performed By: #### C BC #### [facility] [address] [place] [address] Dr. Deepika Terrell MCH (RBC) [Entitic mass] 30.9 pg Normal 25.9-34.0 [facility] Comment on above: Performed By: #### C BC #### [facility] [address] [place] [address] Dr. Deepika Terrell MCHC (RBC) [Mass/Vol] 32.5 g/dL Normal 29.9-35.2 [facility] Comment on above: Performed By: #### C BC #### [facility] [address] [place] [address] Dr. Deepika Terrell MCV (RBC) [Entitic vol] 94.9 fL Critically high 80.0-94.0 [facility] Comment on above: Performed By: #### C BC #### [facility] [address] [address] [address] Deepika Terrell MONO # 0.9 103/ul Critically high 0.3-0.8 [facility] Comment on above: Performed By: #### C BC #### [facility] [address] [place] [address] Dr. Deepika Terrell Monocytes/100 WBC (Bld) 9.9 % Normal 1.7-12.0 [facility] Comment on above: Performed By: #### C BC #### [facility] [address] [place] [address] Dr. Deepika Terrell NEUT # 4.7 103/ul Normal 1.4-6.5 [facility] Comment on above: Performed By: #### C BC #### [facility] [address] [place] [address] Dr. Deepika Terrell Neutrophils/100 WBC (Bld) 49.7 % Normal 43.0-75.0 [facility] Comment on above: Performed By: #### C BC #### [facility] [address] [place] [address] Dr. Deepika Terrell Platelet mean volume (Bld) [Entitic vol] 10.1 fL Normal 9.5-13.5 [facility] Comment on above: Performed By: #### C BC #### [facility] [address] [place] [address] Dr. Deepika Terrell PLT 290 103/ul Normal 150-450 [facility] Comment on above: Performed By: #### C BC #### [facility] [address] [place] [address] Dr. Deepika Terrell RBC 4.34 106/ul Critically low 4.70-6.10 [facility] Comment on above: Performed By: #### C BC #### [facility] [address] [place] [address] Dr. Deepika Terrell WBC 9.4 103/ul Normal 4.0-11.0 [facility] Comment on above: Performed By: #### C BC #### [facility] [address] [place] [address] Dr. Deepika Terrell FREE T3on 11-01-2022 FREE T3 1.83 pg/mlL Critically low 2.18-3.98 [facility] Comment on above: Performed By: #### C PEPT #### [facility] [address] [address] [address] Deepika Terrell GLYCOHEMOGLOBIN A1Con 2021 ADA RECOMMENDATION SEE BELOW Normal [facility] Comment on above: Result Comment: ADA RECOMMENDED LIMIT 4.0 - 6.0 ADA THERAPEUTIC TARGET < 7.0 ACTION SUGGESTED > 7.0 Performed By: #### A 1C #### [facility] [address] [address] [address] Deepika Terrell Glucose [Mass/Vol] 114 mg/dL Normal [facility] Comment on above: Performed By: #### A 1C #### [facility] [address] [place] [address] Dr. Deepika Terrell HbA1c (Bld) [Mass fraction] 5.6 % Normal 4.5-6.2 [facility] Comment on above: Performed By: #### A 1C #### [facility] [address] [place] [address] Dr. Deepika Terrell LIPID PROFILEon 02-05-2022 CHOL-HDL RATIO NORM SEE BELOW Normal [facility] Comment on above: Result Comment: 3.3 - 4.4 LOW RISK 4.4 - 7.1 AVERAGE RISK 7.1 - 11.0 MODERATE RISK >11.0 HIGH RISK Performed By: #### C PEPT #### [facility] [address] [address] [address] Deepika Terrell Cholesterol [Mass/Vol] 187 mg/dL Normal <=200 [facility] Comment on above: Performed By: #### C PEPT #### [facility] [address] [address] [address] Deepika Terrell Cholesterol in HDL [Mass/Vol] 49 mg/dL Normal 40-60 [facility] Comment on above: Performed By: #### C PEPT #### [facility] [address] [address] [address] Deepika Terrell Cholesterol in LDL [Mass/Vol] 123.8 mg/dL Normal [facility] Comment on above: Performed By: #### C PEPT #### [facility] [address] [address] [address] Deepika Terrell Cholesterol.total/ Cholesterol in HDL [Mass ratio] 3.8 {ratio} Normal [facility] Comment on above: Performed By: #### C PEPT #### [facility] [address] [place] [address] Dr. Deepika Terrell HDL NORMAL > or = 60 mg/dl - LO W CARDIOVASCULAR RISK <40 mg/dl - HIGH CARDIOVASCULAR RISK Normal [facility] Comment on above: Performed By: #### C PEPT #### [facility] [address] [place] [address] Dr. Deepika Terrell LDL CALC NORMAL SEE BELOW Normal [facility] Comment on above: Result Comment: <100 mg/dl OPTIMAL 100 - 129 mg/dl NEAR OR ABOVE OPTIMAL 130 - 159 mg/dl BORDERLINE HIGH 160 - 189 mg/dl HIGH >190 mg/dl VERY HIGH Performed By: #### C PEPT #### [facility] [address] [place] [address] Dr. Deepika Terrell Triglyceride [Mass/Vol] 71 mg/dL Normal <=150 [facility] [facility] Comment on above: Performed By: #### C PEPT #### [facility] [address] [place] [address] Dr. Deepika Terrell VLDL CALC 14.2 mg/dL Normal [facility] Comment on above: Performed By: #### C PEPT #### [facility] [address] [place] [address] Dr. Deepika Terrell PROF 14(COMP METB)on 022 Albumin [Mass/Vol] 4.0 g/dL Normal 3.4-5.0 [facility] Comment on above: Performed By: #### C PEPT #### [facility] [address] [place] [address] Dr. Deepika Terrell Albumin/Globulin [Mass ratio] 1.2 {ratio} Normal [facility] Comment on above: Performed By: #### C PEPT #### [facility] [address] [place] [address] Dr. Deepika Terrell ALP [Catalytic activity/Vol] 61 U/L Normal 46-116 [facility] Comment on above: Performed By: #### C PEPT #### [facility] [address] [address] [address] Deepika Terrell ALT [Catalytic activity/Vol] 38 U/L Normal 16-63 [facility] Comment on above: Performed By: #### C PEPT #### [facility] [address] [address] [address] Deepika Terrell Anion gap [Moles/Vol] 8.1 mmol/L Normal [facility] Comment on above: Performed By: #### C PEPT #### [facility] [address] [place] [address] Dr. Deepika Terrell AST [Catalytic activity/Vol] 19 U/L Normal 15-37 [facility] Comment on above: Performed By: #### C PEPT #### [facility] [address] [place] [address] Dr. Deepika Terrell Bilirubin [Mass/Vol] 0.4 mg/dL Normal 0.2-1.0 [facility] Comment on above: Performed By: #### C PEPT #### [facility] [address] [place] [address] Dr. Deepika Terrell Calcium [Mass/Vol] 9.4 mg/dL Normal 8.5-10.1 [facility] Comment on above: Performed By: #### C PEPT #### [facility] [address] [place] [address] Dr. Deepika Terrell Chloride [Moles/Vol] 104 mmol/L Normal 98-107 [facility] Comment on above: Performed By: #### C PEPT #### [facility] [address] [place] [address] Dr. Deepika Terrell CO2 [Moles/Vol] 32.6 mmol/L Critically high 21.0-32.0 [facility] Comment on above: Performed By: #### C PEPT #### [facility] [address] [place] [address] Dr. Deepika Terrell Creatinine [Mass/Vol] 1.63 mg/dL Critically high 0.70-1.30 [facility] Comment on above: Performed By: #### C PEPT #### [facility] [address] [place] [address] Dr. Deepika Terrell EGFR-AF [place]THER[place] 49 mL/min/1.73m2 Critically low >=60 [facility] Comment on above: Performed By: #### C PEPT #### [facility] [address] [place] [address] Dr. Deepika Terrell EGFR-NON AF [place] 40 mL/min/1.73m2 Critically low >=60 [facility] Comment on above: Performed By: #### C PEPT #### [facility] [address] [place] [address] Dr. Deepika Terrell Globulin (S) [Mass/Vol] 3.3 g/dL Normal [facility] Comment on above: Performed By: #### C PEPT #### [facility] [address] [place] [address] Dr. Deepika Terrell Glucose [Mass/Vol] 127 mg/dL Critically high 74-106 [facility] [place] Comment on above: Performed By: #### C PEPT #### [facility] [address] [place] [address] Dr. Deepika Terrell Potassium [Moles/Vol] 4.7 mmol/L Normal 3.5-5.1 [facility] Comment on above: Performed By: #### C PEPT #### [facility] [address] [place] [address] Dr. Deepika Terrell Protein [Mass/Vol] 7.3 g/dL Normal 6.4-8.2 [facility] Comment on above: Performed By: #### C PEPT #### [facility] [address] [place] [address] Dr. Deepika Terrell Sodium [Moles/Vol] 140 mmol/L Normal 136-145 [facility] Comment on above: Performed By: #### C PEPT #### [facility] [address] [place] [address] Dr. Deepika Terrell Urea nitrogen [Mass/Vol] 37.0 mg/dL Critically high 7.0-18.0 [facility] Comment on above: Performed By: #### C PEPT #### [facility] [address] [place] [address] Dr. Deepika Terrell Urea nitrogen/Creatinin e [Mass ratio] 22.7 mg/mg Normal [facility] Comment on above: Performed By: #### C PEPT #### [facility] [address] [place] [address] Dr. Deepika Terrell T4on 02-05-2022 T4 [Mass/Vol] 8.40 ug/dL Normal 4.50-12.10 [facility] Comment on above: Performed By: #### C PEPT #### [facility] [address] [place] [address] Dr. Deepika Terrell TSHon 02-05-2022 TSH 1.762 uIU/mL Normal 0.358-3.740 [facility] Comment on above: Performed By: #### C PEPT #### [facility] [address] [place] [address] Dr. Deepika Terrell US CAMILLA DOP LEG RTon 12-27-19 22 US CAMILLA DOP LEG RT EXAMINATION: US [...] DAVID ESPINAL Date: 2021-12-26 13:02 Normal [facility] PROF CHEM 8 (BAS METB)on Anion gap [Moles/Vol] 15.1 mmol/L Normal [facility] Comment on above: Performed By: #### B MP #### [facility] [address] [place] [address] Dr. Deepika Terrell Calcium [Mass/Vol] 9.2 mg/dL Normal 8.5-10.1 [facility] Comment on above: Performed By: #### B MP #### [facility] [address] [address] [address] Deepika Terrell Chloride [Moles/Vol] 102 mmol/L Normal 98-107 [facility] Comment on above: Performed By: #### B MP #### [facility] [address] [address] [address] Deepika Terrell CO2 [Moles/Vol] 25.8 mmol/L Normal 21.0-32.0 [facility] Comment on above: Performed By: #### B MP #### [facility] [address] [address] [address] Deepika Terrell Creatinine [Mass/Vol] 1.70 mg/dL Critically high 0.70-1.30 [facility] Comment on above: Performed By: #### B MP #### [facility] [address] [address] [address] Deepika Terrell EGFR-AF [place] 47 mL/min/1.73m2 Critically low >=60 [facility] Comment on above: Performed By: #### B MP #### [facility] [address] [address] [address] Deepika Terrell EGFR-NON AF [place] 38 mL/min/1.73m2 Critically low >=60 [facility] Comment on above: Performed By: #### B MP #### [facility] [address] [address] [address] Deepika Terrell Glucose [Mass/Vol] 75 mg/dL Normal 74-106 [facility] Comment on above: Performed By: #### B MP #### [facility] [address] [address] [address] Deepika Terrell Potassium [Moles/Vol] 4.9 mmol/L Normal 3.5-5.1 [facility] Comment on above: Performed By: #### B MP #### [facility] [address] [address] [address] Deepika Terrell Sodium [Moles/Vol] 138 mmol/L Normal 136-145 [facility] Comment on above: Performed By: #### B MP #### [facility] [address] [address] [address] Deepika Terrell Urea nitrogen [Mass/Vol] 45.0 mg/dL Critically high 7.0-18.0 [facility] Comment on above: Performed By: #### B MP #### [facility] [address] [address] [address] Deepika Terrell Urea nitrogen/Creatinin e [Mass ratio] 26.5 mg/mg Normal [facility] Comment on above: Performed By: #### B MP #### [facility] [address] [place] [address] Dr. Deepika Terrell PROF CHEM 8 (BAS METB)on Anion gap [Moles/Vol] 14.2 mmol/L Normal [facility] Comment on above: Performed By: #### B MP #### [facility] [address] [place] [address] Dr. Deepika Terrell Calcium [Mass/Vol] 9.4 mg/dL Normal 8.5-10.1 [facility] Comment on above: Performed By: #### B MP #### [facility] [address] [place] [address] Dr. Deepika Terrell Chloride [Moles/Vol] 106 mmol/L Normal 98-107 [facility] Comment on above: Performed By: #### B MP #### [facility] [address] [place] [address] Dr. Deepika Terrell CO2 [Moles/Vol] 25.1 mmol/L Normal 21.0-32.0 [facility] Comment on above: Performed By: #### B MP #### [facility] [address] [place] [address] Dr. Deepika Terrell Creatinine [Mass/Vol] 1.72 mg/dL Critically high 0.70-1.30 [facility] Comment on above: Performed By: #### B MP #### [facility] [address] [place] [address] Dr. Deepika Terrell EGFR-AF [place] 46 mL/min/1.73m2 Critically low >=60 [facility] Comment on above: Performed By: #### B MP #### [facility] [address] [place], [place] [address] Dr. Deepika Terrell EGFR-NON AF [place] 38 mL/min/1.73m2 Critically low >=60 [facility] Comment on above: Performed By: #### B MP #### [facility] [address] [place], [place] [address] Dr. Deepika Terrell Glucose [Mass/Vol] 51 mg/dL Critically low 74-106 [facility] Comment on above: Performed By: #### B MP #### [facility] [address] [address] [address] Deepika Terrell Potassium [Moles/Vol] 6.2 mmol/L Critically high 3.5-5.1 [facility] Comment on above: Performed By: #### B MP #### [facility] [address] [address] [address] Deepika Terrell Sodium [Moles/Vol] 138 mmol/L Normal 136-145 [facility] Comment on above: Performed By: #### B MP #### [facility] [address] [address] [address] Deepika Terrell Urea nitrogen [Mass/Vol] 42.0 mg/dL Critically high 7.0-18.0 [facility] Comment on above: Performed By: #### B MP #### [facility] [address] [address] [address] Deepika Terrell Urea nitrogen/Creatinin e [Mass ratio] 24.4 mg/mg Normal [facility] Comment on above: Performed By: #### B MP #### [facility] [address] [address] [address] Deepika Terrell MRI LSPINE WO CONon [...] by: KURT DON Date: 2021-09-14 14:24 Normal [facility] XR LSPINE MIN 4 VIEWSon 06-0 XR LSPINE MIN 4 VIEWS EXAMINATION: XR [...] Suspected L5-S1 foraminal stenosis Electronically authenticated by: KRUT DON Date: 2021-09-10 20:46 Normal [facility] GLYCOHEMOGLOBIN A1Con 2021 ADA RECOMMENDATION SEE BELOW Normal [facility] Comment on above: Result Comment: ADA RECOMMENDED LIMIT 4.0 - 6.0 ADA THERAPEUTIC TARGET < 7.0 ACTION SUGGESTED > 7.0 Performed By: #### C PEPT #### [facility] [address] [address] [address] Deepika Terrell Glucose [Mass/Vol] 131 mg/dL Normal [facility] Comment on above: Performed By: #### C PEPT #### [facility] [address] [address] [address] Deepika Terrell HbA1c (Bld) [Mass fraction] 6.2 % Normal 4.5-6.2 [facility] Comment on above: Performed By: #### C PEPT #### [facility] [address] [address] [address] Deepika Terrell Blood Urea Nitrogenon 2020 Urea nitrogen [Mass/Vol] 23 mg/dL Normal 12-28 [facility] Comment on above: Performed By: #### B UN, CREAT #### [address] abdomen pelvis w conon CT abdomen pelvis w con [facility] [place] [address] [place] [address] CT Scan Report Signed Patient: Liliana Natarajan MR#: [id number] 47 : 1935 Acct:[id number] Age/Sex: 85 / M ADM Date: 10/26/20 Loc: Room: Type: [facility] Attending Dr: Srinivasan Beaulieu MD [...] Eugene Cummings M.D.10/26/2020 4:54 PM Dictation Location: [place] [address] Transcribed By: [facility] 10/26/20 782 Dictated By: Eugene Cummings II, MD 10/26/20 1648 Signed By: 10/26/20 165 [facility] [place] [facility] Creatinineon 10-26-2020 Creatinine [Mass/Vol] 1.44 mg/dL High 0.64-1.27 [facility] Comment on above: Performed By: #### B AIDA, CREAT #### [address] Creatinine Clr Calc Pharmacy 39.48 [facility] [place] [facility] Comment on above: Result Comment: PERF ORMED BY: [address] [place] [address] PATHOLOGIST BRICK MAKER ANTHONY WEAVER M.D. Performed By: #### B UN, CREAT #### [facility] [address] Estimated GFR ( Zahida 56 [facility] [place] [facility] Comment on above: Result Comment: GFR estimated reference range: According to KDOQI guidelines, <60 ml/min/1.73m2 is sufficient to diagnose a patient with chronic kidney disease. Performed By: #### B UN, CREAT #### [facility] [address] Estimated GFR (Non- Am 47 [facility] [place] [facility] Comment on above: Performed By: #### B UN, CREAT #### [facility] [address] Glucose Poct Glucometerson 0 10-26-2020 Glucose [Mass/Vol] 100 mg/dL [facility] Comment on above: Result Comment: [facility] Glucose Reference Range is dependent on time and content of last meal. Glucose of more than 200 mg/dL in a nonstressed, ambulatory subject supports the diagnosis of Diabetes Mellitus. PERFORMED BY: [place] [address] PATHOLOGIST BRICK MAKER ANTHONY WEAVER M.D. Performed By: #### G ANGELA #### Point of Care testing , Junior 10-26-2020 L ------- Specimen: [id number] Received: 10/26/20 Status: SOLEDAD iRley Num: [id number] Spec Type: Surgical Subm Dr: Srinivasan Beaulieu MD Tissues: A Colon Biopsy (LEFT COLON BX) Procedures: HE Stain/2, Gross/Micro L4 Patient Age/Sex Location Account Attending Physician Liliana Natarajan/[facility] [id number] Srinivasan Beaulieu MD SPEC NUM: [id number] RECD: 10/26/20 STATUS: SOLEDAD RILEY NUM: [id number] AALIYAH: 10/26/20- DR: Srinivasan Beaulieu MD ENTERED: 10/26/20-[address] [facility] [address]: MICHELLE TYPE: Surgical DEPT: S ENTERED BY: [id number] RECV BY: [id number] ORDERED: HE Stain/2, Gross/Micro L4 ORDERED: HE Stain/2, Gross/Micro L4 Pathological Diagnosis Left colon, biopsy: - Microscopic colitis, most consistent with collagenous colitis Clinical Information Diarrhea Gross Description Received in formalin labeled with the patient's name, number and left colon biopsies rule out microscopic colitis are 2 dey tissue fragments, 0.4 cm and 0.5 cm. Entirely submitted in one cassette labeled A1. (JOSH/JS) Microscopic Description Two glass slides with H E stained material have been examined. The microscopic findings support the above pathologic diagnosis. [id number] Specimen: [id number] Received: 10/26/20 Status: SOLEDAD Millerlemuel Num: [id number] Spec Type: Surgical Subm Dr: Srinivasan Beaulieu MD Tissues: A Colon Biopsy (LEFT COLON BX) Procedures: HE Stain/2, Gross/Micro L4 Patient: Liliana Natarajan [id number] (Continued) Signed (signature on file) Anthony Weaver MD 10/27/20 1718 [facility] [place] [facility] History and Physicalon 01-15 HIM IP Note OR Home Care Assistant Normal [facility] Surgical Pathologyon 017 Surgical Pathology (NOTE)[id number] Y LABORATORIESCONSULTING PATHOLOGISTS CORPORATIONANATOMIC [id number] [place], [place] [id number] Fax: SURGICAL PATHOLOGY CONSULTATIONPatient Name: Amy NATARAJAN Rec: [id number] Number: [id number]: 01/15/2017Received: 01/15/2017Reported: 01/16/2017 08:36-- Diagnosis --INTRAOCULAR LENS: GROSS ONLY.Kan Allred M.D.Electronically Signed Out tb04/16/11Clinical InformationPre-op Diagnosis: DISLOCATED IOL LEFT EYE Operative Findings: IOL GROSS ONLYOperation Performed: VITRECTOMY 25 GAUGE LENSECTOMY, KENALOGINJECTIONSource of Specimen1: IOL - GROSS ONLYGross Description LILIANA NATARAJAN IOL GROSS ONLY 0.6 cm long x < 0.1 cm in diameterclear translucent lens with two tags. Gross only. Normal [facility] Vital Signs Date Time Vital Sign Value Performing Clinician Facility 11-26-2022 09:45-0400 Body height 172.72 cm Chevy Robins Other [facility] Other 11-26-2022 09:45-0400 Body mass index (BMI) [Ratio] 24.63 kg/m2 Chevy Robins Other [facility] Other 11-26-2022 09:45-0400 Body weight 73.48 kg Chevy Robins Other [facility] Other 11-26-2022 09:45-0400 Diastolic blood pressure 61 mm[Hg] Chevy Robins Other [facility] Other 11-26-2022 09:45-0400 Systolic blood pressure 135 mm[Hg] Chevy Robins Other [facility] Other 12-27-2021 14:00-0400 Body height 172.72 cm Chevy Robins Other [facility] Other 12-27-2021 14:00-0400 Body mass index (BMI) [Ratio] 28.43 kg/m2 Chevy Robins Other [facility] Other 12-27-2021 14:00-0400 Body weight 84.82 kg Chevy Robins Other [facility] Other 12-27-2021 14:00-0400 Diastolic blood pressure 75 mm[Hg] Chevy Robins Other [facility] Other 12-27-2021 14:00-0400 Systolic blood pressure 171 mm[Hg] Chevy Robins Other [facility] Other 11-27-2021 09:51-0400 Diastolic blood pressure 71 mm[Hg] Darien REYNOLDS [facility] 11-27-2021 09:51-0400 Mean blood pressure 97 mm[Hg] Darien COOK [facility] 11-27-2021 09:51-0400 Respiratory rate 49 /min Darien COOK [facility] 11-27-2021 09:51-0400 Systolic blood pressure 150 mm[Hg] Darien COOK [facility] 11-27-2021 09:39-0400 Blood Pressure Location Darien REYNOLDS [facility] 11-27-2021 09:39-0400 Diastolic blood pressure 67 mm[Hg] Darien REYNOLDS [facility] 11-27-2021 09:39-0400 Heart rate 45 /min Darien REYNOLDS [facility] 11-27-2021 09:39-0400 Systolic blood pressure 168 mm[Hg] Darien REYNOLDS [facility] 12-27-2020 14:00-0400 Body height 172.72 cm Chevy Robins Other [facility] Other 12-27-2020 14:00-0400 Body mass index (BMI) [Ratio] 28.13 kg/m2 Chevy Robins Other [facility] Other 12-27-2020 14:00-0400 Body weight 83.92 kg Chevy Robins Other [facility] Other Encounters Encounter Date Encounter Type Care Provider Facility Start: 01-05-2024 End: 01-05-2024 ambulatory [facility] Start: 11-11-2023 ambulatory Darien REYNOLDS Facility :[facility] Start: 07-07-2023 End: 07-07-2023 ambulatory [facility] Start: 06-16-2023 End: 06-17-2023 ambulatory Darien REYNOLDS Facility:[facility] Start: 06-16-2023 End: 06-16-2023 Patient encounter procedure Darien REYNOLDS [facility] Start: 11-26-2022 End: 11-26-2022 ambulatory Chevy Robins Other [facility] Other Start: 11-26-2022 Patient encounter procedure Chevy Robins [facility] Start: 08-13-2022 End: 08-13-[address] ERIN BERG . Facility:[facility] Start: 08-12-2022 ambulatory Alli MUKHERJEE Facility : [facility] Start: 08-09-2022 End: 08-10-[address] ERIN BERG . Facility:[facility] Start: 08-08-2022 End: 08-09-[address] ERIN BERG . Facility:[facility] Start: 08-07-2022 End: 08-08-[address] VIANNEY HEART Facility:[facility] Start: 07-19-2022 End: 07-20-[address] [...] 12-27-2021 End: 12-27-2021 ambulatory Chevy Robins Other [facility] Other Start: 12-27-2021 Patient encounter procedure Chevy Robins [facility] Start: 12-26-2021 End: 12-27-[address] ERIN BERG . Facility:[facility] Start: 11-27-2021 End: 11-27-2021 Patient encounter procedure Darien REYNOLDS [facility] Start: 10-18-2021 End: 10-26-[address] DOCTOR POON Facility:[facility] Start: 09-21-2021 End: 09-22-2021 ambulatory MELYSSA JOYA Facility:[facility] Start: 09-18-2021 End: 09-19-2021 ambulatory MELYSSA JOYA Facility:[facility] Start: 09-14-2021 End: 09-15-[address] ERIN BERG . Facility:[facility] Start: 09-10-2021 End: 09-11-[address] ERIN BERG . Facility:[facility] Start: 08-21-2021 End: 08-22-[address] FAITH LISTED REQUEST Facility:[facility] Start: 12-27-2020 Patient encounter procedure Chevy Robins [facility] Start: 01-21-2017 End: 01-22-2017 Ambulatory DEFAULT PHYSICIAN Facility:[facility] Start: 01-17-2017 End: 01-18-2017 Ambulatory DEFAULT PHYSICIAN Facility:[facility] Start: 01-15-2017 End: 01-15-2017 Ambulatory CHET NESBITT [facility] Procedures Date Procedure Procedure Detail Performing Clinician Start: 07-07-2023 Follow-up visit Follow-up ARNEL KELLOGG Start: 02-05-[address] CHRIS BERG . Comment on above: Performed By: #### C PEPT #### [facility] [address] [place] [address] Dr. Deepika Terrell Start: 12-04-2020 Transurethral water vapor ablation of prostate Darien REYNOLDS Start: 10-12-2020 Cystoscopy Darien DUARTE Start: 01-15-2017 SURGICAL PATHOLOGY FARTUN NESBITT Start: 01-15-2017 POC GLUCOSE FINGERSTICK CHET NESBITT Start: 01-15-2017 DISCHARGE PATIENT LAWRENCEKimberly NESBITT Start: 01-15-2017 SURGICAL PATHOLOGY LAWRENCE NESBITT Start: 01-15-2017 ASSESS CHET Rose Start: 01-15-2017 BEDREST CHET Rose Start: 01-15-2017 Continuous pulse oximetry CHET NESBITT Start: 01-15-2017 INITIATE OXYGEN THER APY PROTOCOL CHET NESBITT Start: 01-15-2017 NEURO/VASCULAR CHECKS Raissa NESBITT Start: 01-15-2017 NOTIFY PHYSICIAN (SPECIFY) CHET NESBITT Start: 01-15-2017 NURSING COMMUNICATION Raissa NESBITT Start: 01-15-2017 REMOVE IV CHET Rose Start: 01-15-2017 VITAL SIGNS CHET Rose Start: 01-15-2017 CREATININE W/GFR POI NT OF CARE CHET NESBITT Start: 01-15-2017 POCT GLUCOSE CHET Rose Start: 01-15-2017 POC CHEM8 INCLUDES C ALC. ANION GAP CHET NESBITT Appendectomy [employer] Cataract (disorder) [employer] Cataract (morphologi c abnormality) [employer] Colonoscopy [employer] Hernia of abdominal cavity (disorder) [employer] Immunizations Immunization Date Immunization Notes Care Provider [facility] 05-02-2023 zoster vaccine recombinant [employer] [facility] 02-24-2023 zoster vaccine recombinant [employer] [facility] 01-27-2023 influenza virus vaccine, unspecified formulation [facility] 06-02-2022 influenza virus vaccine, unspecified formulation [employer] [facility] 06-02-2022 pneumococcal conjuga te vaccine, 13 valent [employer] [facility] 01-21-2022 influenza virus vaccine, unspecified formulation Darien REYNOLDS [facility] 09-27-2021 SARS-CoV-2 (COVID-19 ) mRNA-1273 vaccine Darien REYNOLDS [facility] 04-24-2021 SARS-CoV-2 (COVID-19 ) mRNA BNT-162b2 vax Darien REYNOLDS [facility] 01-25-2021 influenza virus vaccine, unspecified formulation Darien REYNOLDS [facility] 06-06-2020 SARS-CoV-2 (COVID-19 ) mRNA-1273 vaccine Darien REYNOLDS [facility] 05-09-2020 SARS-CoV-2 (COVID-19 ) mRNA-1273 vaccine [facility] [employer] [facility] 04-11-2020 SARS-CoV-2 (COVID-19 ) mRNA-1273 vaccine Darien REYNOLDS [facility] 01-14-2020 influenza virus vaccine, unspecified formulation Darien REYNOLDS [facility] 01-06-2020 influenza virus vaccine, unspecified formulation Darien REYNOLDS [facility] 01-28-2018 influenza virus vaccine, unspecified formulation Darien REYNOLDS [facility] 02-05-2017 pneumococcal conjuga te vaccine, 13 valent Darien REYNOLDS [facility] 01-27-2017 influenza virus vaccine, unspecified formulation Darien REYNOLDS [facility] 01-13-2017 influenza virus vaccine, unspecified formulation Darien REYNOLDS [facility] 01-06-2017 influenza virus vaccine, unspecified formulation Darien REYNOLDS [facility] 01-03-2016 influenza virus vaccine, unspecified formulation Darien REYNOLDS [facility] 01-06-2015 influenza virus vaccine, unspecified formulation Darien REYNOLDS [facility] 02-03-2014 influenza virus vaccine, unspecified formulation Darien REYNOLDS [facility] 01-25-2009 influenza, whole Darien BASSO K [facility] Payers Date Payer Category Payer Unknown [id number] 2017 Medicare [id number] 1959 Medicare [id number] 2.1 [id number] 1959 Self-pay 1959 Unknown [id number] 1935 Unknown [id number] 2.16.84 0.1.653806.3.579.2.593 1935 Unknown [id number] 2.16.84 0.1.082240.3.579.2.593 1935 Unknown [id number] 2.16.84 0.1.752983.3.579.2.593 1935 Unknown [id number] 2.16.84 0.1.059078.3.579.2.593 1935 Unknown [id number] 2.16.84 0.1.482004.3.579.2.593 1935 Unknown [id number] 2.16.84 0.1.405004.3.579.2.593 1935 Unknown [id number] 2.16.84 0.1.968103.3.579.2.593 1935 Unknown [id number] 2.16.84 0.1.829619.3.579.2.593 1935 Unknown [id number] 2.16.84 0.1.142049.3.579.2.593 1935 Unknown [id number] 2.16.84 0.1.928248.3.579.2.593 1935 Unknown [id number] 2.16.84 0.1.904741.3.579.2.593 1935 Unknown [id number] 2.16.84 0.1.583292.3.579.2.593 1935 Unknown [id number] 2.16.84 0.1.925866.3.579.2.593 1935 Unknown [id number] 2.16.84 0.1.164433.3.579.2.593 1935 Unknown [id number] 2.16.84 0.1.826490.3.579.2.593 1935 Unknown [id number] 2.16.84 0.1.885330.3.579.2.593 1935 Unknown [id number] 2.16.8 40.1.874696.3.579.2.727 1935 Unknown [id number] 2.16.8 40.1.643017.3.579.2.727 1935 Unknown [id number] 2.16.8 40.1.436278.3.579.2.727 Unknown Unknown [id number] 2.16.8 40.1.860659.19 Unknown [id number] 2.16.84 0.1.628102.3.579.2.593 Unknown [id number] 2.16.84 0.1.782481.3.579.2.593 Social History Date Type Detail Facility Sex Assigned At [facility] Other Start: 11-27-2021 End: 06-11-2022 Tobacco smoking status Never smoked tobacco (finding) [facility] [address] Tobacco smoking status Never [facility] Functional Status Date Assessment Result Facility 11-27-2021 Functional Status N/A [facility] [address] Clinical Notes 12-27-2020 to 07-07-2023 Note Date [...] 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 [facility] 11-26-2022 Evaluation note Encounter Date Diagnosis Assessment Notes Nov, Microscopic colitis (ICD-10 - K52.89) Patient to use OTC probiotic and OTC Fiber supplement to help normalize the stools. Patient to finish remaining 2 weeks of medication and call if diarrhea returns after stopping the medication. RTO in 1 year. [facility] Other 09-22-2022 Evaluation note* Encounter Date Diagnosis Assessment Notes Treatment Notes Treatment Clinical Notes Dec, Microscopic colitis (ICD-10 - K52.89) REASSURANCE PT ADVISED TO ADD FIBER SUPPLEMENT TO DIET F/U PRN [facility] Other 08-23-2022 Hospital Discharge instructions Patient Education [...] urethra. Follow these instructions at home: Take tple-jvp-futegak and prescription medicines only as told by [...] 03/24/2006 Document Revised: 02/16/2019 Document Reviewed: 04/28/2017 WIB Patient Education 2020 [employer]. Follow Up Care 05/30/2021 14:56:10 With:GAIL GARCIA, Darien Blood, URL Address: [facility] [employer] [address] [place], [place] [id number]- When:6 months [facility] 09-22-2021 Evaluation note* Encounter Date Diagnosis Assessment Notes Treatment Notes Treatment Clinical Notes Dec, Microscopic colitis (ICD-10 - K52.89) Colitis home care material was printed will taper the budesonide at this time patient to finish the 9 mg taper then move to the 6 mg taper. [facility] [employer] Other Evaluation + Plan note Future Appointments Appointment Date:06/11/2022 09:30:00 AM Scheduled Provider:Darien REYNOLDS MD Location:[facility] Appointment Type:URO Office Visit [facility] History general Narrative - Reported* Type Description Date Surgical History vasectomy 1979 Surgical History umbilical hernia repair 1982 Surgical History back surgery-lower 1984 Surgical History appendectomy 1991 Surgical History cataract removal L 1999 Surgical History rotator cuff L 2007 Surgical History elbow surgery R 2008 Surgical History carpal tunnel release R 2007 Surgical History cataract removal R 2013 Surgical History eye surgery L Surgical History torn macula L 1998 Hospitalization History SEE ABOVE SURGICAL HX [facility] [employer] Other Hisxehi general Narrative - Reported* Type Description Date Surgical History vasectomy 1979 Surgical History umbilical hernia repair 1982 Surgical History back surgery-lower 1984 Surgical History appendectomy 1991 Surgical History cataract removal L 1999 Surgical History rotator cuff L 2008 Surgical History elbow surgery R 2008 Surgical History carpal tunnel release R 2008 Surgical History cataract removal R 2013 Surgical History eye surgery L 2016/2017 Surgical History torn macula L 1998 Hospitalization History SEE ABOVE SURGICAL HX Hospitalization History A1c down- [facility] 05/2022 [facility] Other Hospital course Narrative No data available for this section [facility] Discharge instructions No data available for this section [facility] Progress note No data available for this section [facility] Summary Purpose Family History No Family History [...] section and content) DATE CREATED AUTHOR 09/30/2017 [facility] DATE CREATED AUTHOR AUTHOR'S ORGANIZ ATION 09/30/2017 [facility] DATE CREATED AUTHOR AUTHOR'S ORGANIZ ATION 10/30/2020 [facility] DATE CREATED AUTHOR AUTHOR'S ORGANIZ ATION 08/19/2022 [facility] DATE CREATED AUTHOR AUTHOR'S ORGANIZ ATION 08/10/2023 [facility] DATE CREATED AUTHOR AUTHOR'S ORGANIZ ATION 01/06/2024 [facility] REASON FOR VISIT (unrecogniz ed section and [...] content) Personnel Name: Erin Berg MD Address: [address] [place] [address] Personnel Name: Erin Berg MD Address: Address: [address] [place] [address] FOR RECORDS PERTAINING TO PATIENTS WHO ARE [...] BE BASED ON THE PRIMARY CLINICAL RECORDS. [facility] [employer] [facility]. provides no warranty or guarantee of the accuracy or completeness of information in this document.
--- NOTE | 2024-01-16 14:00 | CA_ITS ---
Patient Name: LILIANA BENITO MR#: [id number] : 1935 Exam Date: 01/16/2024 Ordering Doctor: ARNEL KELLOGG M.D. ECHOCARDIOGRAM REPORT PROCEDURE: CA ECHO DOPPLER COMPLETE INDICATIONS: Left ventricular hypertrophy COMPARISON: None. DESCRIPTION: COMPLETE ECHOCARDIOGRAM Real-time transthoracic echocardiography with 2D, M-mode, spectral and color flow Doppler performed. QUALITY: Technical quality was good. LEFT VENTRICLE: Normal chamber size. Borderline hypertrophy. Normal systolic function. LV EF: Normal left ventricular ejection fraction, (>55%). DIASTOLIC: Diastolic function is indeterminate. ATRIAL SEPTUM: Visually appears intact. LEFT ATRIUM: Mild dilatation. RIGHT ATRIUM: Normal chamber size. RIGHT VENTRICLE: Normal chamber size. Normal right ventricular systolic function. TRICUSPID VALVE: Normal mobility and thickness. No stenosis with trivial regurgitation. Unable to assess right-sided pressures due to lack of measurable tricuspid regurgitation. MITRAL VALVE: Normal mobility and thickness. No evidence of mitral valve stenosis. There is no mitral annular calcification. Mild mitral regurgitation. AORTIC VALVE: Normal trileaflet appearance. Mildly calcified aortic valve. Normal leaflet mobility. No evidence of aortic valve stenosis. Trivial aortic regurgitation. AORTIC ROOT: Normal diameter and appearance. PULMONIC VALVE: Normal thickness and mobility. No stenosis. No regurgitation. PERICARDIUM: No evidence of pericardial effusion. IVC: IVC is dilated (2.5 cm) with no collapse. PLEURA: CONCLUSION: 1. Borderline left ventricular hypertrophy with normal systolic function. LVEF is 55 to 60%. 2. Normal right ventricular size and systolic function. 3. Mild mitral regurgitation. 4. No pericardial effusion. Adult Echocardiography Procedure Report Left Ventricle LVEDD (3.7 - 5.6 cm): 4.14 cm LVESD (2.2 - 4.0 cm): 2.52 cm LVIVS thickness (0.6 - 1.2 cm): 1.07 cm LVPW thickness (0.5 - 1.0 cm): 1.05 cm e': 0.09 m/s E - e': 12.27 LVOT Max Gradient: 5.18 mm[Hg] LVOT Area (cm2): 1.14 m/s Peak Velocity (LVOT): 1.14 m/s Mean Velocity (LVOT): 0.70 m/s LVOT Diameter 2.01 cm Left Atrium LA Volume Index (2D A2C): 37.24 ml/m2 Left Atrium Systolic Dimension: 3.31 cm Mitral Valve MV E to A Ratio: 0.91 Mitral Valve A-Wave Peak Velocity: 1.22 m/s Mitral Valve E-Wave Peak Velocity: 1.11 m/s Right Ventricle Aorta AO Root Diam: 3.27 cm Aortic Valve AoV Area (Peak Eliseo): 1.87 cm2, 1.87 cm2 AoV Area (VTI): 1.88 cm2, 1.88 cm2 Peak Velocity(Antegrade Flow): 1.92 m/s Peak Gradient(Antegrade Flow): 14.78 mm[Hg] Mean Velocity(Antegrade Flow): 1.28 m/s Mean Gradient(Antegrade Flow): 7.53 mm[Hg] Velocity Time Integral: 45.09 cm Tricuspid Valve Pulmonic Valve Mean Gradient: 2.40 mm[Hg] Mean Velocity: 0.72 m/s Peak Velocity: 1.16 m/s, 1.07 m/s Peak Gradient: 4.62 mm[Hg], 5.42 mm[Hg] Right Atrium Right Atrium Systolic Pressure: 44.64 ml, 44.64 ml Dictated by: Dennis Eaton M.D. on 01/16/2024 at 18:18 Approved by: Dennis Eaton M.D. on 01/16/2024 at 18:22
== END 2024-01-16 13:30 | disposition home or self-care (01) ==
LOC: CARD 13:30
PROVIDERS: PCP Family Medicine; Visit Provider Internal Medicine Cardiovascular Disease
DX: I51.7 Cardiomegaly (principal)
CPT/HCPCS: 93306

== ENCOUNTER 2024-02-10 08:53 | Outpatient (RCR) | payer MEDICARE, OTHER, SELFPAY | END 2024-02-25 09:57 | disposition home or self-care (01) | LOC: PT 08:53 | PROVIDERS: PCP Family Medicine; Visit Provider Nurse Practitioner Family | DX: R53.1 Weakness (principal) | CPT/HCPCS: 97110; 97161 ==

== ENCOUNTER 2024-05-03 12:48 | Outpatient (OUT) | payer MEDICARE, OTHER, SELFPAY ==
--- OUTSIDE RECORDS SUMMARY | 2024-05-03 13:08 | XMS_ITS | CCD ---
Author Organization [facility] Care Team Providers Care Packer Name Role Phone CHET NESBITT Unavailable Unavailable CHET NESBITT Unavailable Unavailable ERIN BERG Unavailable Unavailable PHYSICIAN, DEFAULT Unavailable Unavailable PHYSICIAN, DEFAULT Unavailable Unavailable PHYSICIAN, DEFAULT Unavailable Unavailable PHYSICIAN, DEFAULT Unavailable Unavailable Chevy Robins Unavailable Erin Berg Primary Care Physician VICENTE Bernabe, DR KHAN Consulting Unavailable HOY ., DR [...] ., DR KHAN Primary Care Unavailable REQUEST, NONE LISTED Attending Unavaila ble REQUEST, NONE LISTED [...] Unavailable HOY ., DR KHAN Consulting Unavailable Geovany Espinal Consulting Unavailable HOY ., DR KHAN Consulting Unavailable HOY ., DR KHAN Primary Care Unavailable HOY ., DR KHAN Attending Unavailable HOY ., DR KHAN Admitting Unavailable Teeeber, Geovany Consulting Unavailable Darien REYNOLDS Attending Unavailable Darien REYNOLDS Attending Unavailable Alli MUKHERJEE Attending Unavailable Hoy Erin Referring Unavailable ALGHOTHANI, MOHAMAD Attending Unavailable ALGHOTHANI, MOHAMAD Attending Unavailable Hoy Erin GARCIA Primary Care Provider [phone] Allergies Allergy Classification Reported Allergen(s) Allergy Type Date of Onset Reaction(s) Facility (1 source) No Known Medication Allergies; Translations: [No Known Medication Allergies] Propensity to adverse reactions (disorder) [facility] Repository (1 source) Adhesive agent; Translations: [ADHESIVE] Propensity to adverse reactions to drug (disorder) 7 [facility] Repository Medications Current Medications Medication Drug Class(es) Dates Sig (Normalized) Sig (Original) amLODIPine 5 mg oral tablet (6 sources) Dihydropyridine Calcium Channel Faith Start: 09-14-2020 take 1 mg by mouth once daily amLODIPine 5 mg Tab mg tab(s), Oral, Daily, Refills(s) 0 Start Date: 09/14/20 Status: Ordered take 1 tablet by mouth in the mo rning amLODIPine (NORVASC) 10 mg tablet Take 1 tablet (10 mg total) by mouth in the morning. 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 30 tablet 12 11/13/2023 Active Start: 11-13-2023 aspirin 81 mg chewable tablet Indications: Occlusion and stenosis of unspecified carotid artery , 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 30 tablet 12 11/13/2023 Active atorvastatin 40 mg oral tablet (1 source) HMG-CoA Reductase Inhibitor Start: 11-13-2023 take 1 tablet by mouth in the morning atorvastatin (LIPITOR) 40 mg tablet Indications: Occlusion and stenosis of unspecified carotid artery , Bilateral carotid artery stenosis without cerebral infarction Take 1 tablet (40 mg total) by mouth in the morning. 30 tablet 11/13/2023 Active Start: 11-13-2023 take 1 tablet by anna th in the morning atorvastatin (LIPITOR) 40 mg tablet Indications: Occlusion and stenosis of unspecified carotid artery , Bilateral carotid artery stenosis without cerebral infarction Take 1 tablet (40 mg total) by mouth in the morning. 30 tablet 12 11/13/2023 Active budesonide 3 mg delayed release oral capsule [...] a day for 28 days Nov, Active cetirizine hydrochloride 10 mg oral tablet (1 source) Histamine-1 Receptor Antagonist take 1 tablet by mouth in the morning cetirizine (ZyrTEC) 10 mg tablet Take 1 tablet (10 mg total) by mouth in the morning. Active chondroitin sulfates 400 mg / glucosamine hydrochloride 500 mg oral tablet (1 source) take 1 tablet by mouth in the morning glucosamine-chondro itin 500-400 mg tablet Take 1 tablet by mouth in the morning and 1 tablet before bedtime. Active clopidogrel 75 mg oral tablet (1 source) P2Y12 Platelet Inhibitor Start: take 1 tablet by mouth in the morning clopidogreL (PLAVIX) 75 mg tablet Indications: Occlusion and stenosis of unspecified carotid artery , Bilateral carotid artery stenosis without cerebral infarction Take 1 tablet (75 mg total) by mouth in the morning. 30 tablet 12 11/13/2023 Active Start: 11-13-2023 take 1 tablet by anna th in the morning clopidogreL (PLAVIX) 75 mg tablet Indications: Occlusion and stenosis of unspecified carotid artery , Bilateral carotid artery stenosis without cerebral infarction Take 1 tablet (75 mg total) by mouth in the morning. 30 tablet 12 11/13/2023 Active diclofenac sodium 75 mg delayed release oral tablet (2 sources) Nonsteroidal Anti-inflammatory Drug Start: 11-27-2021 take 1 tablet by mouth twice daily Diclofenac 75mg Tab-DR 75 mg, Oral, BID Start Date: 11/27/21 Status: Ordered Diclofenac 75mg Tab-DR (1 source) Start: 11-27-2021 take 1 tablet by mouth twice daily Diclofenac 75mg Tab-DR 75 mg, Oral, BID Start Date: 11/27/21 Status: Ordered docusate sodium 100 mg oral capsule (1 source) docusate sodium (COLACE) 100 mg capsule Take 1 capsule (100 mg total) by mouth as needed for constipation. Active Fish Oils (2 sources) Start: 09-14-2020 Fish [...] 1 tablet Orally twice a day Active garlic preparation 1 mg oral capsule (1 source) Non-Standardized Food Allergenic Extract garlic 1 mg capsule Take 500 mg by mouth. Active jaye root 250 mg oral capsule (1 source) jaye, Zingiber officinalis, (JAYE EXTRACT) 250 mg capsule Take 250 mg by mouth. Active glimepiride 2 mg oral tablet (4 sources) Sulfonylurea Start: 09-15-19 take 1 mg by mouth once daily glimepiride 2 mg Tab mg tab(s), Oral, Daily, Refills(s) 0 Start Date: 09/14/20 Status: Ordered hydrALAZINE hydrochloride 100 mg oral tablet (5 sources) Arteriolar Vasodilator Start: 06-12-19 take 1 tablet by mouth twice daily hydrALAZINE 100 mg oral tablet 100 mg = 1 tab(s), Oral, BID Start Date: 06/11/22 Status: Ordered Start: 11-27-2021 take 1 tablet by anna th four times daily hydrALAZINE 50 mg Tab 50 mg = 1 tab(s), Oral, QID Start Date: 11/27/21 Status: Ordered Hyoscyamine (1 source) Hyoscyamine Acti ve lecithin 1200 mg oral capsule (1 source) lecithin 1,200 m g capsule Take 1,200 mg by mouth. Active levothyroxine sodium 0.05 mg oral tablet (6 sources) l-Thyroxine Start: 09-14-2020 take 1 tablet by mouth once daily levothyroxine 50 mcg (0.05 mg) Tab mcg tab(s), Oral, Daily, Refills(s) 0 Start Date: 09/14/20 Status: Ordered take 1 tablet by mouth in the mo rning levothyroxine (SYNTHROID, LEVOTHROID) 50 MCG tablet Take 1 tablet (50 mcg total) by mouth in the morning. Active 1 ml liothyronine sodium 0.01 mg/ml injection (1 source) l-Triiodothyronine take 1 mL intravenously every eight hours as needed Liothyronine Sodium 10 MCG/ML 1 mL as needed Intravenous every 8 hrs Active lisinopril 20 mg oral tablet (5 sources) Angiotensin Converting Enzyme Inhibitor Start: 2022 take 1 tablet by mouth once daily lisinopril 20 mg Tab 20 mg = 1 tab(s), Oral, Daily Start Date: 06/11/22 Status: Ordered Start: 09-14-2020 take 1 mg by mouth once daily lisinopril 30 mg Tab mg tab(s), Oral, Daily, Refills(s) 0 Start Date: 09/14/20 Status: Ordered take 1 tablet by anna th in the morning lisinopril (PRINIVIL,ZESTRIL) 40 mg tablet Take 1 tablet (40 mg total) by mouth in the morning. Active meloxicam 15 mg oral tablet (1 source) Nonsteroidal Anti-inflammatory Drug take 1 tablet by mouth every twenty-four hours Meloxicam 15 MG 1 tablet Orally Once a day Active multivit-minerals- ferrous fum (MULTI VITAMIN) 9 mg iron/15 mL liquid (1 source) multivit-mineral s -ferrous fum (MULTI VITAMIN) 9 mg iron/15 mL liquid Indications: mineral deficiency prevention Take 500 mg by mouth. Active oxybutynin chloride 5 mg oral tablet (5 sources) Cholinergic Muscarinic Antagonist Start: take 1 tablet by mouth once daily in the morning oxybutynin (DITROPAN) 5 mg tablet Take 1 tablet (5 mg total) by mouth every morning. 11/12/2023 Active Start: 10-17-2021 take 1 tablet by anna th once daily oxybutynin 5 mg Tab 5 mg = 1 tab(s), Oral, Daily, # 30 tab(s), Refills(s) 11, Pharmacy: [id number], 172, cm, 06/11/22 9:50:00 EST, Height/Length Dosing, 85.4, kg, 06/11/22 9:50:00 EST, Weight Dosing Start Date: 08/01/22 Status: Ordered pantoprazole 40 mg delayed release oral tablet (2 sources) Proton Pump Inhibitor Start: 10-06-2023 take 1 tablet by mouth once daily before breakfast pantoprazole (PROTONIX) 40 mg EC tablet Take 1 tablet (40 mg total) by mouth every morning before breakfast. 10/06/2023 Active take 1 tablet by anna th every twenty-four hours Pantoprazole Sodium 40 MG 1 tablet Orall y Once a day Active potassium chloride 10 meq extended release oral tablet (2 sources) Start: 11-05-2023 take 1 tablet by mouth in the morning potassium chloride (K-TAB,KLOR-CON) 10 MEQ CR tablet Take 1 tablet (10 mEq total) by mouth in the morning and 1 tablet (10 mEq total) in the evening. Take with meals. 11/05/2023 Active take 1 capsule by mo [facility] every twelve hours Potassium Chloride ER 10 MEQ 1 capsule with food Orally Twice a day Active sucralfate 1000 mg oral tablet (2 sources) Aluminum Complex take 1 tablet by mouth once daily in the morning sucralfate (CARAFATE) 1 gram tablet Take 1 tablet (1 g total) by mouth every morning. Active take 1 tablet by anna every twelve hours Sucralfate 1 GM 1 tablet on an empty stomach Orally Twice a day Active tamsulosin hydrochloride 0.4 mg oral capsule (6 sources) alpha-Adrenergic Faith Start: 06-11-2022 take 1 capsule by mouth once daily tamsulosin 0.4 mg Cap 0.4 mg = 1 cap(s), Oral, Daily Start Date: 06/11/22 Status: Ordered Start: 11-27-2021 take 1 capsule by mo [facility] twice daily tamsulosin 0.4 mg Cap 0.4 mg = 1 cap(s), Oral, BID Start Date: 11/27/21 Status: Ordered tiZANidine 4 mg oral tablet (5 sources) Central alpha-2 Adrenergic Agonist Start: 11-27-2021 take 1 tablet by mouth every eight hours tiZANidine 4 mg Tab 4 mg = 1 tab(s), Oral, q8hr Start Date: 11/27/21 Status: Ordered take 1 tablet by anna once daily in the morning tiZANidine (ZANAFLEX) 4 mg tablet Take 1 tablet (4 mg total) by mouth every morning. Active turmeric-turmeric root extra ct 450-50 mg capsule (1 source) turmeric-turmeri c root extract 450-50 mg capsule Take 50 mg by mouth. Active vitamin a 55201 unt oral capsule (2 sources) Vitamin A Start: 09-14-2020 vitamin A 25,000 units oral capsule Refills(s) 0 Start Date: 09/14/20 Status: Ordered vitamin B12 (2 sources) Vitamin B12 Start: 09-14-2020 Vitamin B12 Refills(s) 0 Start Date: 09/14/20 Status: Ordered Vitamin B6 (2 sources) Start: 09-14-2020 Vitamin B6 Daily, Refills(s) 0 Start Date: 09/14/20 Status: Ordered Vitamin D (2 sources) Start: 09-14-2020 Vitamin D International_Unit , Oral, Daily, Refills(s) 0 Start Date: 09/14/20 Status: Ordered Vitamin E (2 sources) Start: 09-14-2020 vitamin E Oral, Daily, Refills(s) 0 Start Date: 09/14/20 [...] and colitis] Onset: 1 Resolved: 1 Episodic Occlusion or stenosis of precerebral arteries (3 sources) Carotid artery occlusion; Translations: [Occlusion and stenosis of unspecified carotid artery] Onset: 4 11-13-2023 Chronic Osteoarthritis (1 source) Unspecified osteoarthritis, unspecified site; Translations: [UNSPECIFIED OSTEOARTHRITIS UNS SITE] Onset: 3 Chronic Other aftercare (1 source) 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; 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] Onset: 3 Episodic Other [...] Value Interpretation Reference Range Facility Office Visiton 01-05-2024 Follow-up visit [id number] Yasmani Natarajanelissa p E 1935 M Date Provider Department Center 01/05/2024 [facility] Family History Problem Relation Age of Onset Diabetes Father Hypertension Father Family Status - Relation Status Age at Father Level of Service:80923 [place] OFFICE/OUTPATIENT ESTABLISHED LOW MDM 20 MIN Normal [facility] Office Visiton 07-07-2023 Follow-up visit [id number] Yasmani Natarajanelissa p E 1935 M Date Provider Department Center 07/07/2023 ARNEL SINGH Family History Problem Relation Age of Onset Diabetes Father Hypertension Father Family Status - Relation Status Age at Father Level of Service:16317 [place] OFFICE/OUTPATIENT ESTABLISHED LOW MDM 20 MIN Reason for Visit and Comments: Follow-up [629789] - 6 month follow up Normal [facility] STOOL CULTUREon 08-18-2022 Campylobacter Culture Final report Normal [facility] Comment on above: Performed By: #### C XSTOOL #### [facility] [address] [address] [address] Deepika Terrell E coli Shiga Toxin EIA Negative Normal Negative [facility] Comment on above: Performed By: #### C XSTOOL #### [facility] [address] [place], [place] [address] Dr. Deepika Terrell Result 1 Comment Normal [facility] Comment on above: Result Comment: No S almonella or Shigella recovered. Performed By: #### C XSTOOL #### [facility] [address] [address] [address] eDepika Terrell Result Comment: No C ampylobacter species isolated. Salmonella/Shigell a Screen Final report Normal [facility] Comment on above: Performed By: #### C XSTOOL #### [facility] [address] [address] [address] Deepika Terrell C. DIFF PCRon 08-13-2022 C. DIFFICILE PCR Negative Normal NEGATIVE [facility] Comment on above: Performed By: #### B MP #### [facility] [address] [address] [address] Deepika Terrell Consultation Noteon 08-14-19 Consultation Note [id number]:127 Normal [facility] OCC BLD IMMUNO SCREENon OCCULT BLOOD Negative Normal NEGATIVE [facility] Comment on above: Performed By: #### B MP #### [facility] [address] [address] [address] Deepika Terrell RAD - MISCon 08-13-2022 RAD - MISC [id number]:127 Normal [facility] Physician Referralon 023 Physician Referral [id number]:127 Normal [facility] NM HEPATOBILIARY SCAN W EFon 08-09-2022 [...] stone within the gallbladder. Electronically authenticated by: GEOVANY ESPINAL Date: 2022-08-09 10:42 Normal [facility] US SINGLE QUAD RT UPPERon US [...] by: KURT JOE Date: 2022-08-08 07:42 Normal [facility] GLYCOHEMOGLOBIN A1Con 2022 ADA RECOMMENDATION SEE BELOW Normal [facility] Comment on above: Result Comment: ADA RECOMMENDED LIMIT 4.0 - 6.0 ADA THERAPEUTIC TARGET < 7.0 ACTION SUGGESTED > 7.0 Performed By: #### I NSULT #### [facility] [address] [place], [place] [address] Dr. Deepika Terrell Glucose [Mass/Vol] 117 mg/dL Normal [facility] Comment on above: Performed By: #### I NSULT #### [facility] [address] [place], [place] [address] Dr. Deepika Terrell HbA1c (Bld) [Mass fraction] 5.7 % Normal 4.5-6.2 [facility] Comment on above: Performed By: #### I NSULT #### [facility] [address] [place], [place] [address] ABD/PELVIS WO CONon [...] MARK LEE Date: 2022-07-20 07:40 Normal [facility] CBC AUTO DIFFon 07-19-2022 BASO # 0.0 103/ul Normal 0.0-0.1 [facility] Comment on above: Performed By: #### C BC #### [facility] [address] [place] [address] [address] Deepika Terrell Basophils/100 WBC (Bld) 0.3 % Normal 0.2-2.0 [facility] Comment on above: Performed By: #### C BC #### [facility] [address] [place] [address] [address] [address] Deepika Terrell EO # 0.3 103/ul Normal 0.0-0.7 [facility] Comment on above: Performed By: #### C BC #### [facility] [address] [address] [address] Deepika Terrell Eosinophils/100 WBC (Bld) 2.4 % Normal 0.9-7.0 [facility] Comment on above: Performed By: #### C BC #### [facility] [address] [address] [address] Deepika Terrell Erythrocyte distribution width (RBC) [Ratio] 14.8 % Normal 11.0-15.0 [facility] Comment on above: Performed By: #### C BC #### [facility] [address] [place] [address] Dr. Deepika Terrell Hematocrit (Bld) [Volume fraction] 33.8 % Critically low 42.0-54.0 [facility] Comment on above: Performed By: #### C BC #### [facility] [address] [place] [address] Dr. Deepika Terrell Hemoglobin (Bld) [Mass/Vol] 11.0 g/dL Critically low 14.0-18.0 [facility] Comment on above: Performed By: #### C BC #### [facility] [address] [place] [address] Dr. Deepika Terrell IG # 0.08 10e3/ul Critically high 0.00-0.03 [facility] Comment on above: Performed By: #### C BC #### [facility] [address] [place] [address] Dr. Deepika Terrell IG % 0.7 % Critically high 0.0-0.5 [facility] Comment on above: Performed By: #### C BC #### [facility] [address] [place] [address] Dr. Deepika Terrell LYMPH # 3.5 103/ul Normal 1.2-3.8 [facility] Comment on above: Performed By: #### C BC #### [facility] [address] [place] [address] Dr. Deepika Terrell Lymphocytes/100 WBC (Bld) 29.2 % Normal 20.5-60.0 [facility] Comment on above: Performed By: #### C BC #### [facility] [address] [place] [address] Dr. Deepika Terrell MANUAL DIFF REQ NO Normal [facility] Comment on above: Performed By: #### C BC #### [facility] [address] [place] [address] Dr. Deepika Terrell MCH (RBC) [Entitic mass] 29.4 pg Normal 25.9-34.0 [facility] Comment on above: Performed By: #### C BC #### [facility] [address] [place] [address] Dr. Deepika Terrell MCHC (RBC) [Mass/Vol] 32.5 g/dL Normal 29.9-35.2 [facility] Comment on above: Performed By: #### C BC #### [facility] [address] [place] [address] Dr. Deepika Terrell MCV (RBC) [Entitic vol] 90.4 fL Normal 80.0-94.0 [facility] Comment on above: Performed By: #### C BC #### [facility] [address] [place] [address] Dr. Deepika Terrell MONO # 0.7 103/ul Normal 0.3-0.8 [facility] Comment on above: Performed By: #### C BC #### [facility] [address] [place] [address] Dr. Deepika Terrell Monocytes/100 WBC (Bld) 6.1 % Normal 1.7-12.0 [facility] Comment on above: Performed By: #### C BC #### [facility] [address] [place] [address] Dr. Deepika Terrell NEUT # 7.3 103/ul Critically high 1.4-6.5 [facility] Comment on above: Performed By: #### C BC #### [facility] [address] [place] [address] Dr. Deepika Terrell Neutrophils/100 WBC (Bld) 61.3 % Normal 43.0-75.0 [facility] Comment on above: Performed By: #### C BC #### [facility] [address] [place], [place] [id number] Dr. Deepika Terrell Platelet mean volume (Bld) [Entitic vol] 10.8 fL Normal 9.5-13.5 [facility] Comment on above: Performed By: #### C BC #### [facility] [address] [place] [address] Dr. Deepika Terrell PLT 372 103/ul Normal 150-450 [facility] Comment on above: Performed By: #### C BC #### [facility] [address] [address] [address] Deepika Terrell RBC 3.74 106/ul Critically low 4.70-6.10 [facility] Comment on above: Performed By: #### C BC #### [facility] [address] [place] [address] Dr. Deepika Terrell WBC 11.9 103/ul Critically high 4.0-11.0 [facility] Comment on above: Performed By: #### C BC #### [facility] [address] [place] [address] Dr. Deepika Terrell PROF CHEM 8 (BAS METB)on Anion gap [Moles/Vol] 16.1 mmol/L Normal [facility] Comment on above: Performed By: #### I NSULT #### [facility] [address] [place] [address] Dr. Deepika Terrell Calcium [Mass/Vol] 9.0 mg/dL Normal 8.5-10.1 [facility] Comment on above: Performed By: #### I NSULT #### [facility] [address] [place] [address] Dr. Deepika Terrell Chloride [Moles/Vol] 108 mmol/L Critically high 98-107 [facility] Comment on above: Performed By: #### I NSULT #### [facility] [address] [place] [address] Dr. Deepika Terrell CO2 [Moles/Vol] 19.3 mmol/L Critically low 21.0-32.0 [facility] Comment on above: Performed By: #### I NSULT #### [facility] [address] [address] [address] Deepika Terrell Creatinine [Mass/Vol] 2.68 mg/dL Critically high 0.70-1.30 [facility] Comment on above: Performed By: #### I NSULT #### [facility] [address] [address] [address] Deepika Terrell EGFR-AF CYPRIOT 27 mL/min/1.73m2 Critically low >=60 [facility] Comment on above: Performed By: #### I NSULT #### [facility] [address] [address] [address] Deepika Terrell EGFR-NON AF CYPRIOT 23 mL/min/1.73m2 Critically low >=60 [facility] Comment on above: Performed By: #### I NSULT #### [facility] [address] [address] [address] Deepika Terrell Glucose [Mass/Vol] 138 mg/dL Critically high 74-106 [facility] Comment on above: Performed By: #### I NSULT #### [facility] [address] [place] [address] Dr. Deepika Terrell Potassium [Moles/Vol] 4.4 mmol/L Normal 3.5-5.1 [facility] Comment on above: Performed By: #### I NSULT #### [facility] [address] [address] [address] Deepika Terrell Sodium [Moles/Vol] 139 mmol/L Normal 136-145 [facility] Comment on above: Performed By: #### I NSULT #### [facility] [address] [address] [address] Deepika Terrell Urea nitrogen [Mass/Vol] 68.0 mg/dL Critically high 7.0-18.0 [facility] Comment on above: Performed By: #### I NSULT #### [facility] [address] [address] [address] Deepika Terrell Urea nitrogen/Creatinin e [Mass ratio] 25.4 mg/mg Normal [facility] Comment on above: Performed By: #### I NSULT #### [facility] [address] [place] [address] Dr. Deepika Terrell CA 19-9on 07-18-2022 CA 19-9 9 U/mL Normal 0-35 [facility] Comment on above: Result Comment: [employer] Electrochemiluminescence Immunoassay (ECLIA) . Values obtained with different assay methods or kits cannot be used interchangeably. Results cannot be interpreted as absolute evidence of the presence or absence of malignant disease. Performed By: #### B MP #### [facility] [address] [place] [address] Dr. Deepika Terrell CEAon 07-18-2022 CEA 3.1 ng/mL Normal 0.0-4.7 [facility] Comment on above: Result Comment: Nons mokers <3.9 Smokers <5.6 . [employer] Electrochemiluminescence Immunoassay (ECLIA) . Values obtained with different assay methods or kits cannot be used interchangeably. Results cannot be interpreted as absolute evidence of the presence or absence of malignant disease. Performed By: #### I NSULT #### [facility] [address] [place] [address] Dr. Deepika Terrell HELICOBACTER PYLORI AB IGMon 07-18-2022 H pylori, IgM Abs <9.0 Normal 0.0-8.9 [facility] Comment on above: Result Comment: Nega tive <9.0 Equivocal 9.0 - 11.0 Positive >11.0 . This test was developed and its performance characteristics determined by [employer]. It has not been cleared or approved by the Food and Drug Administration. Performed By: #### C PEPT #### [facility] [address] [place] [address] Dr. Deepika Terrell AMYLASEon 07-17-2022 Amylase [Catalytic activity/Vol] 38 U/L Normal 25-115 [facility] Comment on above: Performed By: #### C BC #### [facility] [address] [place] [address] Dr. Deepika Terrell CBC W MANUAL DIFFon 07-18-19 23 ATYPICAL LYMPH # Normal [facility] Comment on above: Performed By: #### E RUR #### [facility] [address] [place] [address] Dr. Deepika Terrell ATYPICAL LYMPH % Normal [facility] Comment on above: Performed By: #### E RUR #### [facility] [address] [place] [address] Dr. Deepika Terrell BAND # Normal 0.0-0.3 [facility] Comment on above: Performed By: #### E RUR #### [facility] [address] [place] [address] Dr. Deepika Terrell BAND % Normal 0-5 [facility] Comment on above: Performed By: #### E RUR #### [facility] [address] [place] [address] Dr. Deepika Terrell BASOM # 0.00 103/ul Normal 0.00-0.10 [facility] Comment on above: Performed By: #### E RUR #### [facility] [address] [place] [address] Dr. Deepika Terrell BASOM % 0.0 % Critically low 0.2-2.0 [facility] Comment on above: Performed By: #### E RUR #### [facility] [address] [place] [address] Dr. Deepika Terrell BLAST # Normal [facility] Comment on above: Performed By: #### E RUR #### [facility] [address] [place] [address] Dr. Deepika Terrell BLAST % Normal [facility] Comment on above: Performed By: #### E RUR #### [facility] [address] [place] [address] Dr. Deepika Terrell CORRECTED WBC Normal 4.0-11.0 [facility] Comment on above: Performed By: #### E RUR #### [facility] [address] [place] [address] Dr. Deepika Terrell EOS # 0.00 103/ul Normal 0.00-0.70 [facility] Comment on above: Performed By: #### E RUR #### [facility] [address] [place] [address] Dr. Deepika Terrell EOS% 0.0 % Critically low 0.9-7.0 [facility] Comment on above: Performed By: #### E RUR #### [facility] [address] [address] [address] Deepika Terrell HCT 35.9 % Critically low 42.0-54.0 [facility] Comment on above: Performed By: #### E RUR #### [facility] [address] [address] [address] Deepika Terrell HGB 11.6 g/dl Critically low 14.0-18.0 [facility] Comment on above: Performed By: #### E RUR #### [facility] [address] [address] [address] Deepika Terrell LYMPHM # 3.48 103/ul Normal 1.20-3.80 [facility] Comment on above: Performed By: #### E RUR #### [facility] [address] [address] [address] Deepika Terrell LYMPHM% 17.0 % Critically low 20.5-60.0 [facility] Comment on above: Performed By: #### E RUR #### [facility] [address] [address] [address] Deepika Terrell MCH 29.5 pg Normal 25.9-34.0 [facility] Comment on above: Performed By: #### E RUR #### [facility] [address] [address] [address] Deepika Terrell MCHC 32.3 g/dl Normal 29.9-35.2 [facility] Comment on above: Performed By: #### E RUR #### [facility] [address] [address] [address] Deepika Terrell MCV 91.3 fL Normal 80.0-94.0 [facility] Comment on above: Performed By: #### E RUR #### [facility] [address] [address] [address] Deepika Terrell METAMYELOCYTE # Normal [facility] Comment on above: Performed By: #### E RUR #### [facility] [address] [address] [address] Deepika Terrell METAMYELOCYTE % Normal [facility] Comment on above: Performed By: #### E RUR #### [facility] [address] [place] [address] Dr. Deepika Terrell MONOM# 1.23 103/ul Critically high 0.30-0.80 [facility] Comment on above: Performed By: #### E RUR #### [facility] [address] [place] [address] Dr. Deepika Terrell MONOM% 6.0 % Normal 1.7-12.0 [facility] Comment on above: Performed By: #### E RUR #### [facility] [address] [place] [address] Dr. Deepika Terrell MPV 10.8 fL Normal 9.5-13.5 [facility] Comment on above: Performed By: #### E RUR #### [facility] [address] [place] [address] Dr. Deepika Terrell MYELOCYTE # Normal [facility] Comment on above: Performed By: #### E RUR #### [facility] [address] [place] [address] Dr. Deepika Terrell MYELOCYTE % Normal [facility] Comment on above: Performed By: #### E RUR #### [facility] [address] [place] [address] Dr. Deepika Terrell NRBC Normal [facility] Comment on above: Performed By: #### E RUR #### [facility] [address] [place] [address] Dr. Deepika Terrell PLT 423 103/ul Normal 150-450 [facility] Comment on above: Performed By: #### E RUR #### [facility] [address] [place] [address] Dr. Deepika Terrell RBC 3.93 106/ul Critically low 4.70-6.10 [facility] Comment on above: Performed By: #### E RUR #### [facility] [address] [place] [address] Dr. Deepika Terrell RDW 14.7 % Normal 11.0-15.0 [facility] Comment on above: Performed By: #### E RUR #### [facility] [address] [place] [address] Dr. Deepika Terrell SEG # 15.79 103/ul Critically high 1.40-6.50 [facility] Comment on above: Performed By: #### E RUR #### [facility] [address] [place] [address] Dr. Deepika Terrell SEG % 77.0 % Critically high 43.0-75.[address] [facility] Comment on above: Performed By: #### E RUR #### [facility] [address] [place] [address] Dr. Deepika Terrell WBC 20.5 103/ul Critically high 4.0-11.0 [facility] Comment on above: Performed By: #### E RUR #### [facility] [address] [place] [address] Dr. Deepika Terrell FREE THYROXINE INDEX T7on FTI 1.95 Normal 1.30-4.50 [facility] Comment on above: Performed By: #### C BC #### [facility] [address] [place] [address] Dr. Deepika Terrell T3U 39.0 % Normal 33.0-40.0 [facility] Comment on above: Performed By: #### C BC #### [facility] [address] [place] [address] Dr. Deepika Terrell T4 [Mass/Vol] 5.00 ug/dL Normal 4.50-12.10 [facility] Comment on above: Performed By: #### C BC #### [facility] [address] [place] [address] Dr. Deepika Terrell LIPASEon 07-17-2022 Lipase [Catalytic activity/Vol] 126.0 U/L Normal 73.0-393.0 [facility] Comment on above: Performed By: #### C BC #### [facility] [address] [place] [address] Dr. Deepika Terrell LIVER PROFILEon 07-17-2022 Albumin [Mass/Vol] 3.7 g/dL Normal 3.4-5.0 [facility] Comment on above: Performed By: #### C BC #### [facility] [address] [place] [address] Dr. Deepika Terrell Albumin/Globulin [Mass ratio] 1.0 {ratio} Normal [facility] Comment on above: Performed By: #### C BC #### [facility] [address] [place] [address] Dr. Deepika Terrell ALP [Catalytic activity/Vol] 82 U/L Normal 46-116 [facility] Comment on above: Performed By: #### C BC #### [facility] [address] [place] [address] Dr. Deepika Terrell ALT [Catalytic activity/Vol] 33 U/L Normal 16-63 [facility] Comment on above: Performed By: #### C BC #### [facility] [address] [place] [address] Dr. Deepika Terrell AST [Catalytic activity/Vol] 15 U/L Normal 15-37 [facility] Comment on above: Performed By: #### C BC #### [facility] [address] [place] [address] Dr. Deepika Terrell BILI, CONJUGATED 0.1 mg/dL Normal 0.0-0.2 [facility] Comment on above: Performed By: #### C BC #### [facility] [address] [place] [address] Dr. Deepika Terrell Bilirubin [Mass/Vol] 0.2 mg/dL Normal 0.2-1.0 [facility] Comment on above: Performed By: #### C BC #### [facility] [address] [place] [address] Dr. Deepika Terrell Globulin (S) [Mass/Vol] 3.6 g/dL Normal [facility] Comment on above: Performed By: #### C BC #### [facility] [address] [place] [address] Dr. Deepika Terrell Protein [Mass/Vol] 7.3 g/dL Normal 6.4-8.2 [facility] Comment on above: Performed By: #### C BC #### [facility] [address] [place] [address] Dr. Deepika Terrell PERIPHERAL SMEARon 3 Pathologist Cyto stain Nom (Cvx/Vag) [ID] DR. ANNIKA NIETO Normal [facility] Comment on above: Result Comment: revi ew of smear reveals n/n w/aniso. plts. normal. leukocytosis with neutrophili and absolute monocytosis. no atypical lymphs, immature blasts seen. these findings are suggestive of a reactive process. clinical correlation is recommend Performed By: #### P ERSMR #### [facility] [address] [place] [address] Dr. Deepika Terrell PROF CHEM 8 (BAS METB)on Anion gap [Moles/Vol] 19.0 mmol/L Normal [facility] Comment on above: Performed By: #### C BC #### [facility] [address] [place] [address] Dr. Deepika Terrell Calcium [Mass/Vol] 9.5 mg/dL Normal 8.5-10.1 [facility] Comment on above: Performed By: #### C BC #### [facility] [address] [place] [address] Dr. Deepika Terrell Chloride [Moles/Vol] 112 mmol/L Critically high 98-107 [facility] Comment on above: Performed By: #### C BC #### [facility] [address] [place] [address] Dr. Deepika Terrell CO2 [Moles/Vol] 19.4 mmol/L Critically low 21.0-32.0 [facility] Comment on above: Performed By: #### C BC #### [facility] [address] [place] [address] Dr. Deepika Terrell Creatinine [Mass/Vol] 2.51 mg/dL Critically high 0.70-1.30 [facility] Comment on above: Performed By: #### C BC #### [facility] [address] [place] [address] Dr. Deepika Terrell EGFR-AF CYPRIOT 30 mL/min/1.73m2 Critically low >=60 [facility] Comment on above: Performed By: #### C BC #### [facility] [address] [address] [address] Deepika Terrell EGFR-NON AF CYPRIOT 24 mL/min/1.73m2 Critically low >=60 [facility] Comment on above: Performed By: #### C BC #### [facility] [address] [address] [address] Deepika Terrell Glucose [Mass/Vol] 159 mg/dL Critically high 74-106 [facility] Comment on above: Performed By: #### C BC #### [facility] [address] [address] [address] Deepika Terrell Potassium [Moles/Vol] 4.4 mmol/L Normal 3.5-5.1 [facility] Comment on above: Performed By: #### C BC #### [facility] [address] [address] [address] Deepika Terrell Sodium [Moles/Vol] 146 mmol/L Critically high 136-145 [facility] Comment on above: Performed By: #### C BC #### [facility] [address] [address] [address] Deepika Terrell Urea nitrogen [Mass/Vol] 67.0 mg/dL Critically high 7.0-18.0 [facility] Comment on above: Performed By: #### C BC #### [facility] [address] [address] [address] Deepika Terrell Urea nitrogen/Creatinin e [Mass ratio] 26.7 mg/mg Normal [facility] Comment on above: Performed By: #### C BC #### [facility] [address] [address] [address] Deepika Terrell TSHon 07-17-2022 TSH 0.884 uIU/mL Normal 0.358-3.740 [facility] Comment on above: Performed By: #### C BC #### [facility] [address] [place] [address] Dr. Deepika Terrell INSULIN FREE AND TOTALon Free Insulin 22 uU/mL Critically high [facility] Comment on above: Result Comment: Saleem morris Range: Pubertal Children and Adults (fasting): 0 - 17 Performed By: #### I NSULT #### [facility] [address] [address] [address] Deepika Terrell Total Insulin 22 uU/mL Normal [facility] Comment on above: Result Comment: Non- Diabetic: [...] developed and its performance characteristics determined by [employer]. It has not been cleared or approved by the Food and Drug Administration. Performed By: #### I NSULT #### [facility] [address] [place] [address] Dr. Deepika Terrell C-PEPTIDE, SERUMon 3 C-Peptide, Serum 7.7 ng/mL Critically high 1.1-4.4 [facility] Comment on above: Result Comment: C-Pe ptide reference interval is for fasting patients. Performed By: #### C PEPT #### [facility] [address] [place] [address] Dr. Deepika Terrell OVA AND PARASITE EXAMINATION on 06-04-2022 Ova + Parasite Exam Final report Normal [facility] Comment on above: Result Comment: Thes e results were obtained using wet preparation(s) and trichrome stained smear. This test does not include testing for Cryptosporidium parvum, Cyclospora, or Microsporidia. Performed By: #### B MP #### [facility] [address] [place] [address] Dr. Deepika Terrell Result 1 Comment Normal [facility] Comment on above: Result Comment: No o va, cysts, or parasites seen. . One negative specimen does not rule out the possibility of a parasitic infection. Performed By: #### B MP #### [facility] [address] [place] [address] Dr. Deepika Terrell CBC AUTO DIFFon 06-02-2022 BASO # 0.0 103/ul Normal 0.0-0.1 [facility] Comment on above: Performed By: #### I NSULT #### [facility] [address] [place] [address] Dr. Deepika Terrell Basophils/100 WBC (Bld) 0.4 % Normal 0.2-2.0 [facility] Comment on above: Performed By: #### I NSULT #### [facility] [address] [place] [address] Dr. Deepika Terrell EO # 0.4 103/ul Normal 0.0-0.7 [facility] Comment on above: Performed By: #### I NSULT #### [facility] [address] [place] [address] Dr. Deepika Terrell Eosinophils/100 WBC (Bld) 3.3 % Normal 0.9-7.0 [facility] Comment on above: Performed By: #### I NSULT #### [facility] [address] [place] [address] Dr. Deepika Terrell Erythrocyte distribution width (RBC) [Ratio] 14.6 % Normal 11.0-15.0 [facility] Comment on above: Performed By: #### I NSULT #### [facility] [address] [place] [address] Dr. Deepika Terrell Hematocrit (Bld) [Volume fraction] 29.8 % Critically low 42.0-54.0 [facility] Comment on above: Performed By: #### I NSULT #### [facility] [address] [place] [address] Dr. Deepika Terrell Hemoglobin (Bld) [Mass/Vol] 9.8 g/dL Critically low 14.0-18.0 [facility] Comment on above: Performed By: #### I NSULT #### [facility] [address] [place] [address] Dr. Deepika Terrell IG # 0.05 10e3/ul Critically high 0.00-0.03 [facility] Comment on above: Performed By: #### I NSULT #### [facility] [address] [place] [address] Dr. Deepika Terrell IG % 0.5 % Normal 0.0-0.5 [facility] Comment on above: Performed By: #### I NSULT #### [facility] [address] [place] [address] Dr. Deepika Terrell LYMPH # 1.9 103/ul Normal 1.2-3.8 [facility] Comment on above: Performed By: #### I NSULT #### [facility] [address] [place] [address] Dr. Deepika Terrell Lymphocytes/100 WBC (Bld) 17.3 % Critically low 20.5-60.0 [facility] Comment on above: Performed By: #### I NSULT #### [facility] [address] [place] [address] Dr. Deepika Terrell MANUAL DIFF REQ NO Normal [facility] Comment on above: Performed By: #### I NSULT #### [facility] [address] [place] [address] Dr. Deepika Terrell MCH (RBC) [Entitic mass] 29.9 pg Normal 25.9-34.0 [facility] Comment on above: Performed By: #### I NSULT #### [facility] [address] [place] [address] Dr. Deepika Terrell MCHC (RBC) [Mass/Vol] 32.9 g/dL Normal 29.9-35.2 [facility] Comment on above: Performed By: #### I NSULT #### [facility] [address] [place] [address] Dr. Deepika Terrell MCV (RBC) [Entitic vol] 90.9 fL Normal 80.0-94.0 [facility] Comment on above: Performed By: #### I NSULT #### [facility] [address] [place] [address] Dr. Deepika Terrell MONO # 0.8 103/ul Normal 0.3-0.8 [facility] Comment on above: Performed By: #### I NSULT #### [facility] [address] [place] [address] Dr. Deepika Terrell Monocytes/100 WBC (Bld) 7.4 % Normal 1.7-12.0 [facility] Comment on above: Performed By: #### I NSULT #### [facility] [address] [place] [address] Dr. Deepika Terrell NEUT # 7.9 103/ul Critically high 1.4-6.5 [facility] Comment on above: Performed By: #### I NSULT #### [facility] [address] [place] [address] Dr. Deepika Terrell Neutrophils/100 WBC (Bld) 71.1 % Normal 43.0-75.0 [facility] Comment on above: Performed By: #### I NSULT #### [facility] [address] [place] [address] Dr. Deepika Terrell Platelet mean volume (Bld) [Entitic vol] 10.7 fL Normal 9.5-13.5 [facility] Comment on above: Performed By: #### I NSULT #### [facility] [address] [place] [address] Dr. Deepika Terrell PLT 295 103/ul Normal 150-450 [facility] Comment on above: Performed By: #### I NSULT #### [facility] [address] [place] [address] Dr. Deepika Terrell RBC 3.28 106/ul Critically low 4.70-6.10 [facility] Comment on above: Performed By: #### I NSULT #### [facility] [address] [place] [address] Dr. Deepika Terrell WBC 11.1 103/ul Critically high 4.0-11.0 [facility] Comment on above: Performed By: #### I NSULT #### [facility] [address] [place] [address] ABD/PELV W CONon [...] YANIV DACOSTA Date: 2022-06-01 22:50 Normal [facility] Covid-19 PCR (CVDTB)on 05-09 SARS-CoV-2 (COVID-19) RNA DANICA+probe Ql (Unsp spec) Not detected Normal NOT DETECTED [facility] Comment on above: Result Comment: When [...] for this test is supported by the [place] of [employer] and Human Service's declaration that [...] used). Performed By: #### I NSULT #### [facility] [address] [place] [address] Dr. Deepika Terrell ER URINE PROFILEon 3 Bilirubin Ql (U) Negative Normal NEGATIVE [facility] Comment on above: Performed By: #### E RUR #### [facility] [address] [place] [address] Dr. Deepika Terrell Clarity (U) CLEAR Normal CLEAR [facility] Comment on above: Performed By: #### E RUR #### [facility] [address] [place] [address] Dr. Deepika Terrell Color (U) LT. YELLOW Normal YELLOW [facility] Comment on above: Performed By: #### E RUR #### [facility] [address] [place] [address] Dr. Deepika MCGINNIS A micrscopic examina tion will be performed if indicated. Normal [facility] Comment on above: Performed By: #### E RUR #### [facility] [address] [place] [address] Dr. Deepika Terrell Glucose Ql (U) Negative Normal NEGATIVE [facility] Comment on above: Performed By: #### E RUR #### [facility] [address] [place] [address] Dr. Deepika Terrell Hemoglobin Ql (U) Negative Normal NEGATIVE [facility] Comment on above: Performed By: #### E RUR #### [facility] [address] [place] [address] Dr. Deepika Terrell Ketones Ql (U) Negative Normal NEGATIVE [facility] Comment on above: Performed By: #### E RUR #### [facility] [address] [place] [address] Dr. Deepika Terrell LEUKOCYTES Negative Normal NEGATIVE [facility] Comment on above: Performed By: #### E RUR #### [facility] [address] [place] [address] Dr. Deepika Terrell Nitrite Ql (U) Negative Normal NEGATIVE [facility] Comment on above: Performed By: #### E RUR #### [facility] [address] [place] [address] Dr. Deepika Terrell pH (U) 6.0 [pH] Normal 5-9 [facility] Comment on above: Performed By: #### E RUR #### [facility] [address] [place] [address] Dr. Deepika Terrell SPEC GRAVITY 1.010 Normal 1.005-<=1.02 5 [facility] Comment on above: Performed By: #### E RUR #### [facility] [address] [place] [address] Dr. Deepika Terrell UA PROTEIN Negative Normal NEGATIVE/ TRACE [facility] Comment on above: Performed By: #### E RUR #### [facility] [address] [place] [address] Dr. Deepika Terrell UR MICRO IND NOT INDICATED Normal [facility] Comment on above: Performed By: #### E RUR #### [facility] [address] [place] [address] Dr. Deepika Terrell Urobilinogen Qn (U) 0.2 {Jesus'U}/dL Normal 0.2 - 1.0 [facility] Comment on above: Performed By: #### E RUR #### [facility] [address] [place] [address] Dr. Deepika Terrell GLYCOHEMOGLOBIN A1Con 2022 ADA RECOMMENDATION SEE BELOW Normal [facility] Comment on above: Result Comment: ADA RECOMMENDED LIMIT 4.0 - 6.0 ADA THERAPEUTIC TARGET < 7.0 ACTION SUGGESTED > 7.0 Performed By: #### I NSULT #### [facility] [address] [place] [address] Dr. Deepika Terrell Glucose [Mass/Vol] 134 mg/dL Normal [facility] Comment on above: Performed By: #### I NSULT #### [facility] [address] [place] [address] Dr. Deepika Terrell HbA1c (Bld) [Mass fraction] 6.3 % Critically high 4.5-6.2 [facility] Comment on above: Performed By: #### I NSULT #### [facility] [address] [place] [address] Dr. Deepika Terrell POINT OF CARE GLUCOSEon 05-09 Glucose [Mass/Vol] 175 mg/dL Critically high 74-106 [facility] Comment on above: Performed By: #### I NSULT #### [facility] [address] [place] [address] Dr. Deepika Terrell Glucose [Mass/Vol] 151 mg/dL Critically high 74-106 [facility] Comment on above: Performed By: #### I NSULT #### [facility] [address] [place] [address] Dr. Deepika Terrell Glucose [Mass/Vol] 95 mg/dL Normal 74-106 [facility] Comment on above: Performed By: #### C BC #### [facility] [address] [place] [address] Dr. Deepika Terrell Glucose [Mass/Vol] 83 mg/dL Normal 74-106 [facility] Comment on above: Performed By: #### I NSULT #### [facility] [address] [address] [address] Deepika Terrell Glucose [Mass/Vol] 63 mg/dL Critically low 74-[address] [facility] Comment on above: Performed By: #### P ERSMR #### [facility] [address] [address] [address] Deepika Terrell Glucose [Mass/Vol] 48 mg/dL Critically low 74-[address] [facility] Comment on above: Result Comment: Resu lt Not Confirmed Performed By: #### B MP #### [facility] [address] [address] [address] Deepika Terrell Glucose [Mass/Vol] 62 mg/dL Critically low 74-[address] [facility] Comment on above: Performed By: #### B MP #### [facility] [address] [place] [address] Dr. Deepika Terrell Glucose [Mass/Vol] 61 mg/dL Critically low 74-[address] [facility] Comment on above: Performed By: #### C PEPT #### [facility] [address] [address] [address] Deepika Terrell PROF CHEM 8 (BAS METB)on Anion gap [Moles/Vol] 11.6 mmol/L Normal [facility] Comment on above: Performed By: #### B MP #### [facility] [address] [place] [address] Dr. Deepika Terrell Calcium [Mass/Vol] 8.2 mg/dL Critically low 8.5-10.[address] [facility] Comment on above: Performed By: #### B MP #### [facility] [address] [place] [address] Dr. Deepika Terrell Chloride [Moles/Vol] 111 mmol/L Critically high 98-107 [facility] Comment on above: Performed By: #### B MP #### [facility] [address] [place] [address] Dr. Deepika Terrell CO2 [Moles/Vol] 23.5 mmol/L Normal 21.0-32.0 [facility] Comment on above: Performed By: #### B MP #### [facility] [address] [address] [address] Deepika Terrell Creatinine [Mass/Vol] 1.32 mg/dL Critically high 0.70-1.30 [facility] Comment on above: Performed By: #### B MP #### [facility] [address] [address] [address] Deepika Terrell EGFR-AF CYPRIOT >60 Normal >=60 [facility] Comment on above: Performed By: #### B MP #### [facility] [address] [address] [address] Deepika Terrell EGFR-NON AF CYPRIOT 51 mL/min/1.73m2 Critically low >=60 [facility] Comment on above: Performed By: #### B MP #### [facility] [address] [address] [address] Deepika Terrell Glucose [Mass/Vol] 91 mg/dL Normal 74-106 [facility] Comment on above: Performed By: #### B MP #### [facility] [address] [address] [address] Deepika Terrell Potassium [Moles/Vol] 4.1 mmol/L Normal 3.5-5.1 [facility] Comment on above: Performed By: #### B MP #### [facility] [address] [place] [address] Dr. Deepika Terrell Sodium [Moles/Vol] 142 mmol/L Normal 136-145 [facility] Comment on above: Performed By: #### B MP #### [facility] [address] [address] [address] Deepika Terrell Urea nitrogen [Mass/Vol] 29.0 mg/dL Critically high 7.0-18.0 [facility] Comment on above: Performed By: #### B MP #### [facility] [address] [address] [address] Deepika Terrell Urea nitrogen/Creatinin e [Mass ratio] 22.0 mg/mg Normal [facility] Comment on above: Performed By: #### B MP #### [facility] [address] [address] [address] Deepika Terrell AMMONIAon 06-01-2022 Ammonia (P) [Moles/Vol] 17 umol/L Normal 11-32 [facility] Comment on above: Performed By: #### C BC #### [facility] [address] [place] [address] Dr. Deepika Terrell BNPon 06-01-2022 Natriuretic peptide B (Bld) [Mass/Vol] 132.0 pg/mL Normal <=1,800.0 [facility] Comment on above: Performed By: #### C BC #### [facility] [address] [place] [address] Dr. Deepika Terrell CBC AUTO DIFFon 06-01-2022 BASO # 0.1 103/ul Normal 0.0-0.1 [facility] Comment on above: Performed By: #### C BC #### [facility] [address] [place] [address] Dr. Deepika Terrell Basophils/100 WBC (Bld) 0.3 % Normal 0.2-2.0 [facility] Comment on above: Performed By: #### C BC #### [facility] [address] [place] [address] Dr. Deepika Terrell EO # 0.1 103/ul Normal 0.0-0.7 [facility] Comment on above: Performed By: #### C BC #### [facility] [address] [place] [address] Dr. Deepika Terrell Eosinophils/100 WBC (Bld) 0.9 % Normal 0.9-7.0 [facility] Comment on above: Performed By: #### C BC #### [facility] [address] [place] [address] Dr. Deepika Terrell Erythrocyte distribution width (RBC) [Ratio] 14.7 % Normal 11.0-15.0 [facility] Comment on above: Performed By: #### C BC #### [facility] [address] [place] [address] Dr. Deepika Terrell Hematocrit (Bld) [Volume fraction] 33.6 % Critically low 42.0-54.0 [facility] Comment on above: Performed By: #### C BC #### [facility] [address] [address] [address] Deepika Terrell Hemoglobin (Bld) [Mass/Vol] 10.9 g/dL Critically low 14.0-18.0 [facility] Comment on above: Performed By: #### C BC #### [facility] [address] [address] [address] Deepika Terrell IG # 0.07 10e3/ul Critically high 0.00-0.03 [facility] Comment on above: Performed By: #### C BC #### [facility] [address] [address] [address] Deepika Terrell IG % 0.5 % Normal 0.0-0.5 [facility] Comment on above: Performed By: #### C BC #### [facility] [address] [place] [address] Dr. Deepika Terrell LYMPH # 1.5 103/ul Normal 1.2-3.8 [facility] Comment on above: Performed By: #### C BC #### [facility] [address] [place] [address] Dr. Deepika Terrell Lymphocytes/100 WBC (Bld) 10.3 % Critically low 20.5-60.0 [facility] Comment on above: Performed By: #### C BC #### [facility] [address] [place] [address] Dr. Deepika Terrell MANUAL DIFF REQ NO Normal [facility] Comment on above: Performed By: #### C BC #### [facility] [address] [place] [address] Dr. Deepika Terrell MCH (RBC) [Entitic mass] 29.9 pg Normal 25.9-34.0 [facility] Comment on above: Performed By: #### C BC #### [facility] [address] [place] [address] Dr. Deepika Terrell MCHC (RBC) [Mass/Vol] 32.4 g/dL Normal 29.9-35.2 [facility] Comment on above: Performed By: #### C BC #### [facility] [address] [address] [address] Deepika Terrell MCV (RBC) [Entitic vol] 92.1 fL Normal 80.0-94.0 [facility] Comment on above: Performed By: #### C BC #### [facility] [address] [address] [address] Deepika Terrell MONO # 1.3 103/ul Critically high 0.3-0.8 [facility] Comment on above: Performed By: #### C BC #### [facility] [address] [address] [address] Deepika Terrell Monocytes/100 WBC (Bld) 8.9 % Normal 1.7-12.0 [facility] Comment on above: Performed By: #### C BC #### [facility] [address] [place] [address] Dr. Deepika Terrell NEUT # 11.8 103/ul Critically high 1.4-6.5 [facility] Comment on above: Performed By: #### C BC #### [facility] [address] [place] [address] Dr. Deepika Terrell Neutrophils/100 WBC (Bld) 79.1 % Critically high 43.0-75.0 [facility] Comment on above: Performed By: #### C BC #### [facility] [address] [place] [address] Dr. Deepika Terrell Platelet mean volume (Bld) [Entitic vol] 11.4 fL Normal 9.5-13.5 [facility] Comment on above: Performed By: #### C BC #### [facility] [address] [place] [address] Dr. Deepika Terrell PLT 324 103/ul Normal 150-450 [facility] Comment on above: Performed By: #### C BC #### [facility] [address] [address] [address] Deepika Terrell RBC 3.65 106/ul Critically low 4.70-6.10 [facility] Comment on above: Performed By: #### C BC #### [facility] [address] [address] [address] Deepika Terrell WBC 14.9 103/ul Critically high 4.0-11.0 [facility] Comment on above: Performed By: #### C BC #### [facility] [address] [place] [address] Dr. Deepika Terrell POINT OF CARE GLUCOSEon 05-09 Glucose [Mass/Vol] 29 mg/dL Critically low 74-[address] [facility] Comment on above: Result Comment: Resu lt Not Confirmed Performed By: #### B MP #### [facility] [address] [place] [address] Dr. Deepika Terrell Glucose [Mass/Vol] 28 mg/dL Critically low 74-[address] [facility] Comment on above: Result Comment: Will Repeat Test Performed By: #### C PEPT #### [facility] [address] [place] [address] Dr. Deepika Terrell PROF 14(COMP METB)on 023 Albumin [Mass/Vol] 3.3 g/dL Critically low 3.4-5.[address] [facility] Comment on above: Performed By: #### C BC #### [facility] [address] [place] [address] Dr. Deepika Terrell Albumin/Globulin [Mass ratio] 1.0 {ratio} Normal [facility] Comment on above: Performed By: #### C BC #### [facility] [address] [place] [address] Dr. Deepika Terrell ALP [Catalytic activity/Vol] 75 U/L Normal 46-116 [facility] Comment on above: Performed By: #### C BC #### [facility] [address] [place] [address] Dr. Deepika Terrell ALT [Catalytic activity/Vol] 34 U/L Normal 16-63 [facility] Comment on above: Performed By: #### C BC #### [facility] [address] [place] [address] Dr. Deepika Terrell Anion gap [Moles/Vol] 14.0 mmol/L Normal [facility] Comment on above: Performed By: #### C BC #### [facility] [address] [address] [address] Deepika Terrell AST [Catalytic activity/Vol] 19 U/L Normal 15-37 [facility] Comment on above: Performed By: #### C BC #### [facility] [address] [address] [address] Deepika Terrell Bilirubin [Mass/Vol] 0.2 mg/dL Normal 0.2-1.0 [facility] Comment on above: Performed By: #### C BC #### [facility] [address] [address] [address] Deepika Terrell Calcium [Mass/Vol] 8.6 mg/dL Normal 8.5-10.1 [facility] Comment on above: Performed By: #### C BC #### [facility] [address] [place] [address] Dr. Deepika Terrell Chloride [Moles/Vol] 109 mmol/L Critically high 98-107 [facility] Comment on above: Performed By: #### C BC #### [facility] [address] [address] [address] Deepika Terrell CO2 [Moles/Vol] 23.9 mmol/L Normal 21.0-32.0 [facility] Comment on above: Performed By: #### C BC #### [facility] [address] [address] [address] Deepika Terrell Creatinine [Mass/Vol] 1.59 mg/dL Critically high 0.70-1.30 [facility] Comment on above: Performed By: #### C BC #### [facility] [address] [address] [address] Deepika Terrell EGFR-AF CYPRIOT 50 mL/min/1.73m2 Critically low >=60 [facility] Comment on above: Performed By: #### C BC #### [facility] [address] [address] [address] Deepika Terrell EGFR-NON AF CYPRIOT 41 mL/min/1.73m2 Critically low >=60 [facility] Comment on above: Performed By: #### C BC #### [facility] [address] [address] [address] Deepika Terrell Globulin (S) [Mass/Vol] 3.3 g/dL Normal [facility] Comment on above: Performed By: #### C BC #### [facility] [address] [address] [address] Deepika Terrell Glucose [Mass/Vol] 26 mg/dL Critically low 74-[address] [facility] Comment on above: Performed By: #### C BC #### [facility] [address] [address] [address] Deepika Terrell Potassium [Moles/Vol] 3.9 mmol/L Normal 3.5-5.1 [facility] Comment on above: Performed By: #### C BC #### [facility] [address] [place] [address] Dr. Deepika Terrell Protein [Mass/Vol] 6.6 g/dL Normal 6.4-8.2 [facility] Comment on above: Performed By: #### C BC #### [facility] [address] [place] [address] Dr. Deepika Terrell Sodium [Moles/Vol] 143 mmol/L Normal 136-145 [facility] Comment on above: Performed By: #### C BC #### [facility] [address] [address] [address] Deepika Terrell Urea nitrogen [Mass/Vol] 34.0 mg/dL Critically high 7.0-18.0 [facility] Comment on above: Performed By: #### C BC #### [facility] [address] [address] [address] Deepika Terrell Urea nitrogen/Creatinin e [Mass ratio] 21.4 mg/mg Normal [facility] Comment on above: Performed By: #### C BC #### [facility] [address] [place] [address] Dr. Deepika Terrell TROPONIN, HIGH SENSITIVITYon 06-01-2022 HSTROP 13.2 pg/mL Normal 4.0-76.1 [facility] Comment on above: Result Comment: CUT- OFF POINTS HAVE BEEN ESTABLISHED BASED ON THE FOURTH UNIVERSAL DEFINITIONS OF MYOCARDIAL INFARCTION. THE UPPER REFERENCE LIMIT (URL) OF TROPONIN, DEFINED THE 99TH PERCENTILE OF cTnI DISTRIBUTION IN A REFERENCE POPULATION, HAS BEEN CONFIRMED THE DECISION THRESHOLD FOR [place] DIAGNOSIS. Performed By: #### B MP #### [facility] [address] [place] [address] Dr. Deepika Terrell GI PANEL (PCR)on 05-30-2022 Adenovirus F 40/41 Not detected Normal NOT DETECTED [facility] Comment on above: Performed By: #### P ERSMR #### [facility] [address] [place] [address] Dr. Deepika Terrell Astrovirus Not detected Normal NOT DETECTED [facility] Comment on above: Performed By: #### P ERSMR #### [facility] [address] [place] [address] Dr. Deepika Terrell C. Diff toxin A/B Not detected Normal NOT DETECTED [facility] Comment on above: Performed By: #### P ERSMR #### [facility] [address] [place] [address] Dr. Deepika Terrell Campylobacter Not detected Normal NOT DETECTED [facility] Comment on above: Performed By: #### P ERSMR #### [facility] [address] [place] [address] Dr. Deepika Terrell Cryptosporidium Not detected Normal NOT DETECTED [facility] Comment on above: Performed By: #### P ERSMR #### [facility] [address] [place] [address] Dr. Deepika Terrell Cyclos. Cayetanensis Not detected Normal NOT DETECTED [facility] Comment on above: Performed By: #### P ERSMR #### [facility] [address] [place] [address] Dr. Deepika Terrell E. Coli O157 Not Applicable Normal Not Applicable [facility] Comment on above: Performed By: #### P ERSMR #### [facility] [facility] [address] [place] [address] Dr. Deepika Terrell E. histolytica Not detected Normal NOT DETECTED [facility] Comment on above: Performed By: #### P ERSMR #### [place] [facility] [address] [address] [address] Deepika Terrell EAEC Not detected Normal NOT DETECTED [facility] Comment on above: Performed By: #### P ERSMR #### [facility] [address] [address] [address] Deepika Terrell EIEC Not detected Normal NOT DETECTED [facility] Comment on above: Performed By: #### P ERSMR #### [facility] [address] [address] [address] Deepika Terrell EPEC Not detected Normal NOT DETECTED [facility] Comment on above: Performed By: #### P ERSMR #### [facility] [address] [place] [address] Dr. Deepika Terrell ETEC Not detected Normal NOT DETECTED [facility] Comment on above: Performed By: #### P ERSMR #### [facility] [address] [place] [address] Dr. Deepika Reardon Lamblia Not detected Normal NOT DETECTED [facility] Comment on above: Performed By: #### P ERSMR #### [facility] [address] [place] [address] Dr. Deepika WOLFE CONTROLS PASSED Normal The [facility] Comment on above: Performed By: #### P ERSMR #### [facility] [address] [place] [address] Dr. Deepika PENG [facility] HEADER GI PANEL BACTERIA Normal [facility] Comment on above: Performed By: #### P ERSMR #### [facility] [address] [place] [address] Dr. Deepika CACERES ECOLI GI PANEL DIARRHEAGEN IC E.COLI / SHIGELLA Normal [facility] Comment on above: Performed By: #### P ERSMR #### [facility] [address] [place] [address] Dr. Deepika CACERES INFO SEE BELOW Normal [facility] Comment on above: Result Comment: EAEC - Enteroaggregative E. Coli EPEC- Enteropathogenic E. Coli ETEC- Enterotoxigenic E. Coli lt/st STEC- Shigella-like toxin-producing E. Coli stx1/stx2 EIEC- Shigella/Enteroinvasive E. Coli Performed By: #### P ERSMR #### [facility] [address] [place] [address] Dr. Deepika CACERES PARASITES GI PANEL PARASITES Normal The [facility] Comment on above: Performed By: #### P ERSMR #### [facility] [address] [place] [address] Dr. Deepika CACERES VIRUS GI PANEL VIRUSES Normal The [facility] Comment on above: Performed By: #### P ERSMR #### [facility] [address] [address] [address] Deepika Terrell Norovirus GI/GII Not detected Normal NOT DETECTED The [facility] Comment on above: Performed By: #### P ERSMR #### [facility] [address] [place] [address] Dr. Deepika Blood. Shigelloides Not detected Normal NOT DETECTED The [facility] Comment on above: Performed By: #### P ERSMR #### [facility] [address] [place] [address] Dr. Deepika Terrell Rotavirus A Not detected Normal NOT DETECTED [facility] Comment on above: Performed By: #### P ERSMR #### [facility] [address] [place] [address] Dr. Deepika Terrell Salmonella Not detected Normal NOT DETECTED [facility] Comment on above: Performed By: #### P ERSMR #### [facility] [address] [address] [address] Deepika Terrell Sapovirus Not detected Normal NOT DETECTED [facility] Comment on above: Performed By: #### P ERSMR #### [facility] [address] [place] [address] Dr. Deepika Terrell STEC Not detected Normal NOT DETECTED [facility] Comment on above: Performed By: #### P ERSMR #### [facility] [address] [place] [address] Dr. Deepika Terrell Vibrio Not detected Normal NOT DETECTED [facility] Comment on above: Performed By: #### P ERSMR #### [facility] [address] [place] [address] Dr. Deepika Terrell Vibrio Cholera Not detected Normal NOT DETECTED [facility] Comment on above: Performed By: #### P ERSMR #### [facility] [address] [address] [address] Deepika Terrell Y. Enterocolitica Not detected Normal NOT DETECTED [facility] Comment on above: Performed By: #### P ERSMR #### [facility] [address] [place] [address] Dr. Deepika Terrell PROF CHEM 8 (BAS METB)on Anion gap [Moles/Vol] 13.9 mmol/L Normal [facility] Comment on above: Performed By: #### P ERSMR #### [facility] [address] [place] [address] Dr. Deepika Terrell Calcium [Mass/Vol] 8.9 mg/dL Normal 8.5-10.1 [facility] Comment on above: Performed By: #### P ERSMR #### [facility] [address] [place] [address] Dr. Deepika Terrell Chloride [Moles/Vol] 104 mmol/L Normal 98-107 [facility] Comment on above: Performed By: #### P ERSMR #### [facility] [address] [place] [address] Dr. Deepika Terrell CO2 [Moles/Vol] 26.3 mmol/L Normal 21.0-32.0 [facility] Comment on above: Performed By: #### P ERSMR #### [facility] [address] [place] [address] Dr. Deepika Terrell Creatinine [Mass/Vol] 1.70 mg/dL Critically high 0.70-1.30 [facility] Comment on above: Performed By: #### P ERSMR #### [facility] [address] [place] [address] Dr. Deepika Terrell EGFR-AF CYPRIOT 47 mL/min/1.73m2 Critically low >=60 [facility] Comment on above: Performed By: #### P ERSMR #### [facility] [address] [address] [address] Deepika Terrell EGFR-NON AF CYPRIOT 38 mL/min/1.73m2 Critically low >=60 [facility] Comment on above: Performed By: #### P ERSMR #### [facility] [address] [address] [address] Deepika Terrell Glucose [Mass/Vol] 62 mg/dL Critically low 74-[address] [facility] Comment on above: Performed By: #### P ERSMR #### [facility] [address] [address] [address] Deepika Terrell Potassium [Moles/Vol] 4.2 mmol/L Normal 3.5-5.1 [facility] Comment on above: Performed By: #### P ERSMR #### [facility] [address] [address] [address] Deepika Terrell Sodium [Moles/Vol] 140 mmol/L Normal 136-145 [facility] Comment on above: Performed By: #### P ERSMR #### [facility] [address] [address] [address] Deepika Terrell Urea nitrogen [Mass/Vol] 34.0 mg/dL Critically high 7.0-18.0 [facility] Comment on above: Performed By: #### P ERSMR #### [facility] [address] [address] [address] Deepika Terrell Urea nitrogen/Creatinin e [Mass ratio] 20.0 mg/mg Normal [facility] Comment on above: Performed By: #### P ERSMR #### [facility] [address] [address] [address] Deepika Terrell ECHOCARDIO M/2D COMPLETEon 1 06-02-2021 ECHOCARDIO M/2D COMPLETE Patient: MASON NATARAJAN Exam Date: 04/01/2022 : 1935 Gender:M Ordering : ARNEL KELLOGG Admission #: [id number] Family : Order #: [id number] CLICK HERE TO VIEW EXAM ECHOCARDIOGRAM REPORT [...] M.D. on 04/09/2022 at 08:52 Normal [facility] CBC AUTO DIFFon 02-05-2022 BASO # 0.1 103/ul Normal 0.0-0.1 [facility] Comment on above: Performed By: #### C BC #### [facility] [address] [place] [address] Dr. Deepika Terrell Basophils/100 WBC (Bld) 0.5 % Normal 0.2-2.0 [facility] Comment on above: Performed By: #### C BC #### [facility] [address] [place] [address] Dr. Deepika Terrell EO # 0.3 103/ul Normal 0.0-0.7 [facility] Comment on above: Performed By: #### C BC #### [facility] [address] [place] [address] Dr. Deepika Terrell Eosinophils/100 WBC (Bld) 3.3 % Normal 0.9-7.0 [facility] Comment on above: Performed By: #### C BC #### [facility] [address] [place] [address] Dr. Deepika Terrell Erythrocyte distribution width (RBC) [Ratio] 14.0 % Normal 11.0-15.0 [facility] Comment on above: Performed By: #### C BC #### [facility] [address] [place] [address] Dr. Deepika Terrell Hematocrit (Bld) [Volume fraction] 41.2 % Critically low 42.0-54.0 [facility] Comment on above: Performed By: #### C BC #### [facility] [address] [place] [address] Dr. Deepika Terrell Hemoglobin (Bld) [Mass/Vol] 13.4 g/dL Critically low 14.0-18.0 [facility] Comment on above: Performed By: #### C BC #### [facility] [address] [place] [address] Dr. Deepika Terrell IG # 0.04 10e3/ul Critically high 0.00-0.03 [facility] Comment on above: Performed By: #### C BC #### [facility] [address] [place] [address] Dr. Deepika Terrell IG % 0.4 % Normal 0.0-0.5 [facility] Comment on above: Performed By: #### C BC #### [facility] [address] [place] [address] Dr. Deepika Terrell LYMPH # 3.4 103/ul Normal 1.2-3.8 [facility] Comment on above: Performed By: #### C BC #### [facility] [address] [place] [address] Dr. Deepika Terrell Lymphocytes/100 WBC (Bld) 36.2 % Normal 20.5-60.0 [facility] Comment on above: Performed By: #### C BC #### [facility] [address] [place] [address] Dr. Deepika Terrell MANUAL DIFF REQ NO Normal [facility] Comment on above: Performed By: #### C BC #### [facility] [address] [place] [address] Dr. Deepika Terrell MCH (RBC) [Entitic mass] 30.9 pg Normal 25.9-34.0 [facility] Comment on above: Performed By: #### C BC #### [facility] [address] [place] [address] Dr. Deepika Terrell MCHC (RBC) [Mass/Vol] 32.5 g/dL Normal 29.9-35.2 [facility] Comment on above: Performed By: #### C BC #### [facility] [address] [place] [address] Dr. Deepika Terrell MCV (RBC) [Entitic vol] 94.9 fL Critically high 80.0-94.0 [facility] Comment on above: Performed By: #### C BC #### [facility] [address] [place] [address] Dr. Deepika Terrell MONO # 0.9 103/ul Critically high 0.3-0.8 [facility] Comment on above: Performed By: #### C BC #### [facility] [address] [place] [address] Dr. Deepika Terrell Monocytes/100 WBC (Bld) 9.9 % Normal 1.7-12.0 [facility] Comment on above: Performed By: #### C BC #### [facility] [address] [place] [address] Dr. Deepika Terrell NEUT # 4.7 103/ul Normal 1.4-6.5 [facility] Comment on above: Performed By: #### C BC #### [facility] [address] [place] [address] Dr. Deepika Terrell Neutrophils/100 WBC (Bld) 49.7 % Normal 43.0-75.0 [facility] Comment on above: Performed By: #### C BC #### [facility] [address] [place] [address] Dr. Deepika Terrell Platelet mean volume (Bld) [Entitic vol] 10.1 fL Normal 9.5-13.5 [facility] Comment on above: Performed By: #### C BC #### [facility] [address] [place] [address] Dr. Deepika Terrell PLT 290 103/ul Normal 150-450 [facility] Comment on above: Performed By: #### C BC #### [facility] [address] [place] [address] Dr. Deepika Terrell RBC 4.34 106/ul Critically low 4.70-6.[address] [facility] Comment on above: Performed By: #### C BC #### [facility] [address] [place] [address] Dr. Deepika Terrell WBC 9.4 103/ul Normal 4.0-11.0 [facility] Comment on above: Performed By: #### C BC #### [facility] [address] [place] [address] Dr. Deepika Terrell FREE T3on 02-05-2022 FREE T3 1.83 pg/mlL Critically low 2.18-3.[address] [facility] Comment on above: Performed By: #### C PEPT #### [facility] [address] [place] [address] Dr. Deepika Terrell GLYCOHEMOGLOBIN A1Con 2021 ADA RECOMMENDATION SEE BELOW Normal [facility] Comment on above: Result Comment: ADA RECOMMENDED LIMIT 4.0 - 6.0 ADA THERAPEUTIC TARGET < 7.0 ACTION SUGGESTED > 7.0 Performed By: #### A 1C #### [facility] [address] [place] [address] Dr. Deepika Terrell Glucose [Mass/Vol] 114 mg/dL Normal [facility] Comment on above: Performed By: #### A 1C #### [facility] [address] [place] [address] Dr. Deepika Terrell HbA1c (Bld) [Mass fraction] 5.6 % Normal 4.5-6.2 [facility] Comment on above: Performed By: #### A 1C #### [facility] [address] [address] [address] Deepika Terrell LIPID PROFILEon 02-05-2022 CHOL-HDL RATIO NORM SEE BELOW Normal [facility] Comment on above: Result Comment: 3.3 - 4.4 LOW RISK 4.4 - 7.1 AVERAGE RISK 7.1 - 11.0 MODERATE RISK >11.0 HIGH RISK Performed By: #### C PEPT #### [facility] [address] [address] [address] Deepika Terrell Cholesterol [Mass/Vol] 187 mg/dL Normal <=200 [facility] Comment on above: Performed By: #### C PEPT #### [facility] [address] [address] [address] Deepika Terrell Cholesterol in HDL [Mass/Vol] 49 mg/dL Normal 40-60 [facility] Comment on above: Performed By: #### C PEPT #### [facility] [address] [place] [address] Dr. Deepika Terrell Cholesterol in LDL [Mass/Vol] 123.8 mg/dL Normal [facility] Comment on above: Performed By: #### C PEPT #### [facility] [address] [place] [address] Dr. Deepika Terrell Cholesterol.total/ Cholesterol in HDL [Mass ratio] 3.8 {ratio} Normal [facility] Comment on above: Performed By: #### C PEPT #### [facility] [address] [place] [address] Dr. Deepika Terrell HDL NORMAL > or = 60 mg/dl - LO W CARDIOVASCULAR RISK <40 mg/dl - HIGH CARDIOVASCULAR RISK Normal [facility] Comment on above: Performed By: #### C PEPT #### [facility] [address] [place] [address] Dr. Deepika Terrell LDL CALC NORMAL SEE BELOW Normal [facility] Comment on above: Result Comment: <100 mg/dl OPTIMAL 100 - 129 mg/dl NEAR OR ABOVE OPTIMAL 130 - 159 mg/dl BORDERLINE HIGH 160 - 189 mg/dl HIGH >190 mg/dl VERY HIGH Performed By: #### C PEPT #### [facility] [address] [place] [address] Dr. Deepika Terrell Triglyceride [Mass/Vol] 71 mg/dL Normal <=150 [facility] Comment on above: Performed By: #### C PEPT #### [facility] [address] [place] [address] Dr. Deepika Terrell VLDL CALC 14.2 mg/dL Normal [facility] Comment on above: Performed By: #### C PEPT #### [facility] [address] [place] [address] Dr. Deepika Terrell PROF 14(COMP METB)on 022 Albumin [Mass/Vol] 4.0 g/dL Normal 3.4-5.0 [facility] Comment on above: Performed By: #### C PEPT #### [facility] [address] [place] [address] Dr. Deepika Terrell Albumin/Globulin [Mass ratio] 1.2 {ratio} Normal [facility] Comment on above: Performed By: #### C PEPT #### [facility] [address] [place] [address] Dr. Deepika Terrell ALP [Catalytic activity/Vol] 61 U/L Normal 46-116 [facility] Comment on above: Performed By: #### C PEPT #### [facility] [address] [place] [address] Dr. Deepika Terrell ALT [Catalytic activity/Vol] 38 U/L Normal 16-63 [facility] Comment on above: Performed By: #### C PEPT #### [facility] [address] [place] [address] Dr. Deepika Terrell Anion gap [Moles/Vol] 8.1 mmol/L Normal [facility] Comment on above: Performed By: #### C PEPT #### [facility] [address] [place] [address] Dr. Deepika Terrell AST [Catalytic activity/Vol] 19 U/L Normal 15-37 [facility] Comment on above: Performed By: #### C PEPT #### [facility] [address] [place] [address] Dr. Deepika Terrell Bilirubin [Mass/Vol] 0.4 mg/dL Normal 0.2-1.0 [facility] Comment on above: Performed By: #### C PEPT #### [facility] [address] [address] [address] Deepika Terrell Calcium [Mass/Vol] 9.4 mg/dL Normal 8.5-10.1 [facility] Comment on above: Performed By: #### C PEPT #### [facility] [address] [address] [address] Deepika Terrell Chloride [Moles/Vol] 104 mmol/L Normal 98-107 [facility] Comment on above: Performed By: #### C PEPT #### [facility] [address] [address] [address] Deepika Terrell CO2 [Moles/Vol] 32.6 mmol/L Critically high 21.0-32.0 [facility] Comment on above: Performed By: #### C PEPT #### [facility] [address] [address] [address] Deepika Terrell Creatinine [Mass/Vol] 1.63 mg/dL Critically high 0.70-1.30 [facility] Comment on above: Performed By: #### C PEPT #### [facility] [address] [address] [address] Deepika Terrell EGFR-AF CYPRIOT 49 mL/min/1.73m2 Critically low >=60 [facility] Comment on above: Performed By: #### C PEPT #### [facility] [address] [address] [address] Deepika Terrell EGFR-NON AF CYPRIOT 40 mL/min/1.73m2 Critically low >=60 [facility] Comment on above: Performed By: #### C PEPT #### [facility] [address] [address] [address] Deepika Terrell Globulin (S) [Mass/Vol] 3.3 g/dL Normal [facility] Comment on above: Performed By: #### C PEPT #### [facility] [address] [address] [address] Deepika Terrell Glucose [Mass/Vol] 127 mg/dL Critically high 74-106 [facility] Comment on above: Performed By: #### C PEPT #### [facility] [address] [address] [address] Deepika Terrell Potassium [Moles/Vol] 4.7 mmol/L Normal 3.5-5.1 [facility] Comment on above: Performed By: #### C PEPT #### [facility] [address] [address] [address] Deepika Terrell Protein [Mass/Vol] 7.3 g/dL Normal 6.4-8.2 [facility] Comment on above: Performed By: #### C PEPT #### [facility] [address] [address] [address] Deepika Terrell Sodium [Moles/Vol] 140 mmol/L Normal 136-145 [facility] Comment on above: Performed By: #### C PEPT #### [facility] [address] [place] [address] Dr. Deepika Terrell Urea nitrogen [Mass/Vol] 37.0 mg/dL Critically high 7.0-18.0 [facility] Comment on above: Performed By: #### C PEPT #### [facility] [address] [address] [address] Deepika Terrell Urea nitrogen/Creatinin e [Mass ratio] 22.7 mg/mg Normal [facility] Comment on above: Performed By: #### C PEPT #### [facility] [address] [address] [address] Deepika Terrell T4on 02-05-2022 T4 [Mass/Vol] 8.40 ug/dL Normal 4.50-12.10 [facility] Comment on above: Performed By: #### C PEPT #### [facility] [address] [address] [address] Deepika Terrell TSHon 02-05-2022 TSH 1.762 uIU/mL Normal 0.358-3.740 [facility] Comment on above: Performed By: #### C PEPT #### [facility] [address] [address] [address] Deepika Terrell US [place] DOP LEG [...] the right lower extremity. Electronically authenticated by: GEOVANY ESPINAL Date: 2021-12-26 13:02 Normal [facility] PROF CHEM 8 (BAS METB)on Anion gap [Moles/Vol] 15.1 mmol/L Normal [facility] Comment on above: Performed By: #### B MP #### [facility] [address] [address] [address] Deepika Terrell Calcium [Mass/Vol] 9.2 mg/dL Normal 8.5-10.1 [facility] Comment on above: Performed By: #### B MP #### [facility] [address] [address] [address] Deepika Terrell Chloride [Moles/Vol] 102 mmol/L Normal 98-107 [facility] Comment on above: Performed By: #### B MP #### [facility] [facility] [address] [address] [address] Deepika Terrell CO2 [Moles/Vol] 25.8 mmol/L Normal 21.0-32.0 The [facility] Comment on above: Performed By: #### B MP #### [facility] [address] [address] [address] Deepika Terrell Creatinine [Mass/Vol] 1.70 mg/dL Critically high 0.70-1.30 [facility] Comment on above: Performed By: #### B MP #### [facility] [address] [address] [address] Deepika Terrell EGFR-AF CYPRIOT 47 mL/min/1.73m2 Critically low >=60 The [facility] Comment on above: Performed By: #### B MP #### [facility] [address] [address] [address] Deepika Terrell EGFR-NON AF CYPRIOT 38 mL/min/1.73m2 Critically low >=60 The [facility] Comment on above: Performed By: #### B MP #### [facility] [address] [address] [address] Deepika Terrell Glucose [Mass/Vol] 75 mg/dL Normal 74-106 The [facility] Comment on above: Performed By: #### B MP #### [facility] [address] [address] [address] Deepika Terrell Potassium [Moles/Vol] 4.9 mmol/L Normal 3.5-5.1 [facility] Comment on above: Performed By: #### B MP #### [facility] [address] [address] [address] Deepika Terrell Sodium [Moles/Vol] 138 mmol/L Normal 136-145 [facility] Comment on above: Performed By: #### B MP #### [facility] [address] [address] [address] Deepika Terrell Urea nitrogen [Mass/Vol] 45.0 mg/dL Critically high 7.0-18.0 [facility] Comment on above: Performed By: #### B MP #### [facility] [address] [address] [address] Deepika Terrell Urea nitrogen/Creatinin e [Mass ratio] 26.5 mg/mg Normal [facility] Comment on above: Performed By: #### B MP #### [facility] [address] [address] [address] Deepika Terrell PROF CHEM 8 (BAS METB)on Anion gap [Moles/Vol] 14.2 mmol/L Normal [facility] Comment on above: Performed By: #### B MP #### [facility] [address] [address] [address] Deepika Terrell Calcium [Mass/Vol] 9.4 mg/dL Normal 8.5-10.1 [facility] Comment on above: Performed By: #### B MP #### [facility] [address] [address] [address] Deepika Terrell Chloride [Moles/Vol] 106 mmol/L Normal 98-107 [facility] Comment on above: Performed By: #### B MP #### [facility] [address] [address] [address] Deepika Terrell CO2 [Moles/Vol] 25.1 mmol/L Normal 21.0-32.0 [facility] Comment on above: Performed By: #### B MP #### [facility] [address] [address] [address] Deepika Terrell Creatinine [Mass/Vol] 1.72 mg/dL Critically high 0.70-1.30 [facility] Comment on above: Performed By: #### B MP #### [facility] [address] [address] [address] Deepika Terrell EGFR-AF CYPRIOT 46 mL/min/1.73m2 Critically low >=60 [facility] Comment on above: Performed By: #### B MP #### [facility] [address] [address] [address] Deepika Terrell EGFR-NON AF CYPRIOT 38 mL/min/1.73m2 Critically low >=60 [facility] Comment on above: Performed By: #### B MP #### [facility] [address] [address] [address] Deepika Terrell Glucose [Mass/Vol] 51 mg/dL Critically low 74-[address] [facility] Comment on above: Performed By: #### B MP #### [facility] [address] [address] [address] Deepika Terrell Potassium [Moles/Vol] 6.2 mmol/L Critically high 3.5-5.1 [facility] Comment on above: Performed By: #### B MP #### [facility] [address] [address] [address] Deepika Terrell Sodium [Moles/Vol] 138 mmol/L Normal 136-145 [facility] Comment on above: Performed By: #### B MP #### [facility] [address] [address] [address] Deepika Terrell Urea nitrogen [Mass/Vol] 42.0 mg/dL Critically high 7.0-18.0 The [facility] Comment on above: Performed By: #### B MP #### [facility] [address] [address] [address] Deepika Terrell Urea nitrogen/Creatinin e [Mass ratio] 24.4 mg/mg Normal The [facility] Comment on above: Performed By: #### B MP #### [facility] [address] [address] [address] Deepika Terrell MRI LSPINE WO CONon [...] by: KURT DON Date: 2021-09-14 14:24 Normal [facility] XR LSPINE MIN 4 VIEWSon XR [...] by: KURT DON Date: 2021-09-10 20:46 Normal [facility] GLYCOHEMOGLOBIN A1Con 2021 ADA RECOMMENDATION SEE BELOW Normal [facility] Comment on above: Result Comment: ADA RECOMMENDED LIMIT 4.0 - 6.0 ADA THERAPEUTIC TARGET < 7.0 ACTION SUGGESTED > 7.0 Performed By: #### C PEPT #### [facility] [address] [address] [address] Deepika Terrell Glucose [Mass/Vol] 131 mg/dL Normal [facility] Comment on above: Performed By: #### C PEPT #### [facility] [address] [address] [address] Deepika Terrell HbA1c (Bld) [Mass fraction] 6.2 % Normal 4.5-6.2 [facility] Comment on above: Performed By: #### C PEPT #### [facility] [address] [address] [address] Deepika Terrell Blood Urea Nitrogenon 2020 Urea nitrogen [Mass/Vol] 23 mg/dL Normal 12-28 [facility] Comment on above: Performed By: #### B UN, CREAT #### [facility] [id number] [facility] CT abdomen pelvis w conon CT abdomen pelvis w con [facility] Main [place] [id number] Scan Report Signed Patient: Mason Natarajan MR#: [id number] 47 : 1935 Acct:[id number] Age/Sex: 85 / M ADM Date: 10/26/20 Loc: Room: Type: [facility] Attending Dr: Srinivasan Beaulieu MD [...] Eugene Cummings M.D.10/26/2020 4:54 PM Dictation Location: [address] [address] Transcribed By: [facility] 10/26/20 165 Dictated By: Eugene Cummings II, MD 10/26/20 1648 Signed By: 10/26/201653 [facility] Creatinineon 10-26-2020 Creatinine [Mass/Vol] 1.44 mg/dL High 0.64-1.27 [facility] Comment on above: Performed By: #### B UN, CREAT #### [facility] [address] [place] [address] Creatinine Clr Calc Pharmacy 39.48 [facility] Comment on above: Result Comment: PERF ORMED BY: [address] [place] [address] PATHOLOGIST TIME CLERK ANTHONY WEAVER M.D. Performed By: #### B UN, CREAT #### [facility] [address] Estimated GFR ( Zahida 56 [facility] Comment on above: Result Comment: GFR estimated reference range: According to KDOQI guidelines, <60 ml/min/1.73m2 is sufficient to diagnose a patient with chronic kidney disease. Performed By: #### B UN, CREAT #### [facility] [address] [place] [address] [place] Estimated GFR (Non- Am 47 [facility] Comment on above: Performed By: #### B UN, CREAT #### [facility] [address] [place] [address] [place] Glucose Poct Glucometerson 0 10-26-2020 Glucose [Mass/Vol] 100 mg/dL [facility] Comment on above: Result Comment: [place] Glucose Reference Range is dependent on time and content of last meal. Glucose of more than 200 mg/dL in a nonstressed, ambulatory subject supports the diagnosis of Diabetes Mellitus. PERFORMED BY: [address] [place] [address] PATHOLOGIST TIME CLERK ANTHONY WEAVER M.D. Performed By: #### G ANGELA #### Point of Care testing , Junior 10-26-2020 L ------- Specimen: [id number] Received: 10/26/20 Status: SOLEDAD Riley Num: [id number] Spec Type: Surgical Subm Dr: Srinivasan Beaulieu MD Tissues: A Colon Biopsy (LEFT COLON BX) Procedures: HE Stain/2, Gross/Micro L4 Patient Age/Sex Location Account Attending Physician Mason Natarajan/Raissa [id number] Srinivasan Beaulieu MD SPEC NUM: [id number] RECD: 10/26/20 STATUS: SOLEDAD RILEY NUM: [id number] AALIYAH: 10/26/20- DR: Srinivasan Beaulieu MD ENTERED: 10/26/20-12[address] [facility] [address]: SPEC TYPE: Surgical DEPT: S ENTERED BY: [id number] RECV BY: [id number] ORDERED: HE Stain/2, Gross/Micro L4 ORDERED: HE [...] microscopic findings support the above pathologic diagnosis. [id number] Specimen: [id number] Received: 10/26/20 Status: SOLEDAD Riley Num: [id number] Spec Type: Surgical Subm Dr: Srinivasan Beaulieu MD Tissues: A Colon Biopsy (LEFT COLON BX) Procedures: HE Stain/2, Gross/Micro L4 Patient: Mason Natarajan [id number] (Continued) Signed (signature on file) Anthony Weaver MD 10/27/20 1718 [facility] History and Physicalon 01-15 HIM IP Note OR Barometers Calibrator [facility] Surgical Pathologyon 017 Surgical Pathology (NOTE)[id number] Y LABORATORIESCONSULTING PATHOLOGISTS CORPORATIONANATOMIC [id number] [place] [phone] Fax: SURGICAL PATHOLOGY CONSULTATIONPatient Name: Amy NATARAJAN Rec: [id number] Number: [id number]: 01/15/2017Received: 01/15/2017Reported: 01/16/2017 08:36-- Diagnosis --INTRAOCULAR LENS: GROSS ONLY.Kan Allred M.D.Electronically Signed Out tb04/16/11Clinical InformationPre-op Diagnosis: DISLOCATED IOL LEFT EYE Operative Findings: IOL GROSS ONLYOperation Performed: VITRECTOMY 25 GAUGE LENSECTOMY, KENALOGINJECTIONSource of Specimen1: IOL - GROSS ONLYGross Description MASON NATARAJAN, IOL GROSS ONLY 0.6 cm long x < 0.1 cm in diameterclear translucent lens with two tags. Gross only. Normal [facility] Vital Signs Date Time Vital Sign Value Performing Clinician Facility 11-13-2023 09:33-0400 Diastolic blood pressure 82 mm[Hg] [facility]ongo [facility] 11-13-2023 09:33-0400 Heart rate 64 /min [facility] 11-13-2023 09:33-0400 Systolic blood pressure 156 mm[Hg] Linda [facility]elongo MD [facility] 11-13-2023 09:18-0400 Body height 172.7 cm Linda [facility]elongo MD [facility] 11-13-2023 09:18-0400 Body mass index (BMI) [Ratio] 27.67 kg/m2 Linda Montelongo MD [facility] 11-13-2023 09:18-0400 Body weight 82.56 kg Linda [facility]elongo MD [facility] 11-13-2023 09:18-0400 SaO2% (BldA) [Mass fraction] 94 % Linda Montelongo MD [facility] 11-26-2022 09:45-0400 Body height 172.72 cm Chevy Robins Other [employer] Other 11-26-2022 09:45-0400 Body mass index (BMI) [Ratio] 24.63 kg/m2 Chevy Robins Other [facility] Other 11-26-2022 09:45-0400 Body weight 73.48 kg Chevy Robins Other [facility] Other 11-26-2022 09:45-0400 Diastolic blood pressure 61 mm[Hg] Chevy Robins Other [facility] Other 11-26-2022 09:45-0400 Systolic blood pressure 135 mm[Hg] Chevy Robins Other [employer] Other 12-27-2021 14:00-0400 Body height 172.72 cm Chevy Robins Other [facility] Other 12-27-2021 14:00-0400 Body mass index (BMI) [Ratio] 28.43 kg/m2 Chevy Conniewilmaotilia Other [employer] Other 12-27-2021 14:00-0400 Body weight 84.82 kg Chevy Robins Other [facility] Other 12-27-2021 14:00-0400 Diastolic blood pressure 75 mm[Hg] Chevy Conniewilmaotilia Other [employer] Other 12-27-2021 14:00-0400 Systolic blood pressure 171 mm[Hg] Chvey Conniewilmaotilia Other [employer] Other 11-27-2021 09:51-0400 Diastolic blood pressure 71 mm[Hg] Darien REYNOLDS [facility] [place] 11-27-2021 09:51-0400 Mean blood pressure 97 mm[Hg] Darien REYNOLDS [facility] [place] 11-27-2021 09:51-0400 Respiratory rate 49 /min Darien COOK [facility] [place] 11-27-2021 09:51-0400 Systolic blood pressure 150 mm[Hg] [facility]ari[facility] COOK [facility] 11-27-2021 09:39-0400 Blood Pressure Location Darien REYNOLDS [facility] [place] 11-27-2021 09:39-0400 Diastolic blood pressure 67 mm[Hg] Darien REYNOLDS [facility] [place] 11-27-2021 09:39-0400 Heart rate 45 /min Darien REYNOLDS [facility] 11-27-2021 09:39-0400 Systolic blood pressure 168 mm[Hg] Darien REYNOLDS [facility] [place] [employer] 12-27-2020 14:00-0400 Body height 172.72 cm Chevy Ditty Other [facility] Other 12-27-2020 14:00-0400 Body mass index (BMI) [Ratio] 28.13 kg/m2 Chevy Robins Other [facility] Other 12-27-2020 14:00-0400 Body weight 83.92 kg Chevy Robins Other [facility] Other Encounters Encounter Date Encounter Type Care Provider Facility Start: 01-05-2024 End: 01-05-2024 [facility] Start: 11-13-2023 End: 11-13-2023 Office outpatient new 45 minutes Linda Montelongo MD Work Phone: [facility] Comment on above: Bilateral carotid ar linnea stenosis without cerebral infarction (Primary Dx); Occlusion and stenosis of unspecified carotid artery Start: 11-11-2023 ambulatory Darien REYNOLDS Facility :[facility] Start: 07-07-2023 End: 07-07-2023 ambulatory [facility] Start: 06-16-2023 End: 06-17-2023 ambulatory Darien REYNOLDS Facility:[facility] Start: 06-16-2023 End: 06-16-2023 Patient encounter procedure Darien REYNOLDS [facility] [place] Start: 11-26-2022 End: 11-26-2022 ambulatory Chevy Robins Other [facility] Other Start: 11-26-2022 Patient encounter procedure Chevy [...] 12-27-2021 End: 12-27-2021 ambulatory Chevy Robins Other [place] [employer] Other Start: 12-27-2021 Patient encounter procedure Chevy Robins [facility] Start: 12-26-2021 End: 12-27-[address] ERIN BERG . Facility:[facility] Start: 11-27-2021 End: 11-27-2021 Patient encounter procedure Darien REYNOLDS [facility] Start: 10-18-2021 End: 10-26-[address] DOCTOR [...] Start: 01-21-2017 End: 01-22-2017 Ambulatory DEFAULT PHYSICIAN Facility:[facility] Start: 01-17-2017 End: 01-18-2017 Ambulatory DEFAULT PHYSICIAN Facility:[facility] Start: 01-15-2017 End: 01-15-2017 Ambulatory [facility] Procedures Date Procedure Procedure Detail Performing Clinician Start: 07-07-2023 Follow-up visit Follow-up ARNEL KELLOGG Start: 02-05-[address] CHRIS BERG . Comment on above: Performed By: #### C PEPT #### [facility] [address] [place] [address] Dr. Deepika Terrell Start: 08-30-2021 Transurethral water vapor ablation of prostate Darien REYNOLDS Start: 10-12-2020 Cystoscopy Darien BASS GERALD Start: 01-15-2017 SURGICAL PATHOLOGY LAWRENCE NESBITT Start: [...] CHET Rose Start: 01-15-2017 VITAL SIGNS CHET Rsoe Start: 01-15-2017 CREATININE W/GFR POI NT OF CARE CHET NESBITT Start: 01-15-2017 POCT GLUCOSE CHET Rose Start: 01-15-2017 POC CHEM8 INCLUDES C ALC. ANION GAP CHET NESBITT Appendectomy Darien REYNOLDS Cataract (disorder) Darien REYNOLDS Cataract (morphologi c abnormality) Darien REYNOLDS Colonoscopy Darien REYNOLDS Hernia of abdominal cavity (disorder) Darien REYNOLDS Plan of Treatment Date Care Activity Detail Author Start: 11-12-2024 End: 11-12-2024 US Carotid arteries - bilateral Vas carotid duplex bilateral Vascular Ultrasound Routine Occlusion and stenosis of unspecified carotid artery Bilateral carotid artery stenosis without cerebral infarction Expected: 11/12/2024 (Approximate), Expires: 11/12/2024 [facility] Work Phone: Comment on above: Expected: 11/12/2024 (Approximate), Expires: 11/12/2024 Start: 12-07-2023 Influenza vaccination Influenza Vacc ine [facility] Start: 05-30-2023 COVID-19 Vaccine ( season) COVID-19 Vaccine ( season) [facility] Start: 2000 Fall Risk Screening Fall Risk Screen ing [facility] Start: 1954 DTaP,Tdap and Td Vaccines (1 - Tdap) DTaP,Tdap and Td Vaccines (1 - Tdap) [facility] Start: 1953 Adult BMI Follow Up Plan Adult BMI Follow Up Plan [facility] Start: 1953 Adult BMI Screening Adult BMI Screen ing [facility] [employer] [facility] Start: 1947 Depression Screening Depression Scre ening [facility] Start: 1947 Tobacco Screening Tobacco Screening [facility] Start: 1935 Medicare Annual Wellness Visit Medicare Annual Wellness Visit [facility] Immunizations Immunization Date Immunization Notes Care Provider [facility] 05-02-2023 zoster vaccine recombinant [facility] 02-24-2023 zoster vaccine recombinant [facility] 01-27-2023 influenza virus vaccine, unspecified formulation [facility] 06-02-2022 influenza virus vaccine, unspecified formulation [facility] 06-02-2022 pneumococcal conjuga te vaccine, 13 valent [facility] 01-21-2022 influenza virus vaccine, unspecified formulation [facility] 09-27-2021 SARS-CoV-2 (COVID-19 ) mRNA-1273 vaccine [facility] 04-24-2021 SARS-CoV-2 (COVID-19 ) mRNA BNT-162b2 vax Darien REYNOLDS [facility] 01-25-2021 influenza virus vaccine, unspecified formulation [facility] [employer] [facility] 06-06-2020 SARS-CoV-2 (COVID-19 ) mRNA-1273 vaccine [place] [employer] [facility] 05-09-2020 SARS-CoV-2 (COVID-19 ) mRNA-1273 vaccine [place] [employer] [facility] 04-11-2020 SARS-CoV-2 (COVID-19 ) mRNA-1273 vaccine [place] [employer] [facility] 01-14-2020 influenza virus vaccine, unspecified formulation [place] [employer] [facility] 01-06-2020 influenza virus vaccine, unspecified formulation [place] [employer] [facility] 01-28-2018 influenza virus vaccine, unspecified formulation [place] [employer] [facility] 02-05-2017 pneumococcal conjuga te vaccine, 13 valent [place] [employer] [facility] 01-27-2017 influenza virus vaccine, unspecified formulation [facility] [facility] 01-13-2017 influenza virus vaccine, unspecified formulation Darien REYNOLDS [facility] 01-06-2017 influenza virus vaccine, unspecified formulation Darien REYNOLDS [facility] 01-03-2016 influenza virus vaccine, unspecified formulation Darien REYNOLDS [facility] 01-06-2015 influenza virus vaccine, unspecified formulation Darien REYNOLDS [facility] 02-03-2014 influenza virus vaccine, unspecified formulation Darien REYNOLDS [facility] 01-25-2009 influenza, whole Darien Martins [facility] Payers Date Payer Category Payer Unknown [id number] 2017 Unknown 2017 Medicare [id number] 2000 Medicare MEDICARE MEDICAR E PART A & B [id number] 2000-Present [phone] [address] [place] [address] [id number] 1959 Medicare [id number] 1959 Self-pay 1959 Unknown [id number] 1935 Unknown [id number] 2.16.840.1.722194.3.579.2.593 1935 Unknown [id number] 2.16.840.1.228649.3.579.2.593 1935 Unknown [id number] 2.16.840.1.886993.3.579.2.593 1935 Unknown [id number] 2.16.840.1.026990.3.579.2.593 1935 Unknown [id number] 2.16.840.1.323537.3.579.2.593 1935 Unknown [id number] 2.16.840.1.395229.3.579.2.593 1935 Unknown [id number] 2.16.840.1.232160.3.579.2.593 1935 Unknown [id number] 2.16.840.1.594688.3.579.2.593 1935 Unknown [id number] 2.16.840.1.048341.3.579.2.593 1935 Unknown [id number] 2.16.840.1.621245.3.579.2.593 1935 Unknown [id number] 2.16.840.1.743741.3.579.2.593 1935 Unknown [id number] 2.16.840.1.775302.3.579.2.593 1935 Unknown [id number] 2.16.840.1.105855.3.579.2.593 1935 Unknown [id number] 2.16.840.1.489533.3.579.2.593 1935 Unknown [id number] 2.16.840.1.142660.3.579.2.593 1935 Unknown [id number] 2.16.840.1.002841.3.579.2.593 1935 Unknown [id number] 2.16.840.1.946912.3.579.2.727 1935 Unknown [id number] 2.16.840.1.640342.3.579.2.727 1935 Unknown [id number] 2.16.840.1.276325.3.579.2.727 Unknown [id number] 2.16.8 40.1.552743.19 Unknown [id number] 2.16.840.1.039311.3.579.2.593 Unknown [id number] 2.16.840.1.620426.3.579.2.593 Social History Date Type Detail Facility Start: 05-18-2020 End: 11-13-2023 Sex Assigned At [facility] [employer] Other Start: 11-27-2021 End: 06-11-2022 Tobacco smoking status Never smoked tobacco (finding) [facility] [employer] Tobacco smoking status Never [facility] [employer] Start: 11-13-2023 Tobacco smoking stat [facility] Ex-smoker [facility] End: 08-01-1947 History of tobacco use Current smoker [facility] End: 08-01-1947 History of tobacco use Cigarette Smoker [facility] Start: 11-13-2023 Tobacco use and exposure Smokeless tobacco non-user [facility] Start: 11-13-2023 Alcoholic beverage intake Current drinker of alcohol (finding) [facility] Start: 05-18-2020 End: 11-13-2023 Alcoholic beverage intake [facility] Start: 07-29-2017 Alcohol Comment 1 daily [facility] Start: 1935 Sex assigned at Not on file P [facility] Medical Equipment Procedure Code Equipment Code Equipment Origin al Text Equipment Identifier Dates Kit Iol +18.5 D Cnvxpln Klmn Rpl [id number] - [id number] - [id number] Start: 07-31-2017 Functional Status Date Assessment Result Facility 11-27-2021 Functional Status N/A [facility] [employer] Clinical Notes 12-27-2020 to 01-05-2024 Assessment & Plan Note - Linda Montelongo MD - 11/13/2023 9:37 AM EDTAssessment & Plan Note - Linda Montelongo MD - 11/13/2023 9:37 AM EDTMradha Montelongo MD - 11/13/2023 9:20 AM EDT Note Date & Type Note Facility 01-05-2024 Note Cardiology Follow Up Progress Note Chief Complaint: Follow up HPI: Mason Natarajan is a 88 y.o. male With a past medical history including hypertension, diabetes, bradycardia. Patient was referred to cardiology for perioperative restratification prior to left shoulder surgery. At the time, patient was noted to be low risk, and was cleared for surgery. Patient presents today for follow-up. He is doing well. No complaints. No chest pain. No SOB. No LE edema. No orthopnea or PND> Cardiology ROS: GENERAL: Denies fever, chills, night [...] TAKE 1 TABLET BY MOUTH EVERY DAY atorvastatin (Lipitor) 40 mg tablet Take 40 mg by mouth in the morning. clopidogrel (Plavix) 75 mg tablet Take 75 mg by mouth in the morning. diclofenac (Voltaren) 75 mg EC tablet 75 mg every 12 (twelve) hours. levothyroxine (Synthroid, Levoxyl) 50 mcg tablet Take [...] TAKE 1 TABLET BY MOUTH AT BEDTIME budesonide EC (Entocort EC) 3 mg 24 hr capsule TAKE 3 CAPSULES BY MOUTH DAILY for FOUR weeks then TAKE 2 CAPSULES BY MOUTH DAILY for FOUR weeks then TAKE 1 CAPSULE BY MOUTH DAILY for FOUR weeks cholecalciferol (Vitamin D-3) 25 MCG (1000 UT) capsule 1 capsule in the morning. hyoscyamine 0.125 mg SL tablet DISSOLVE 1 TABLET UNDER THE TONGUE FOUR TIMES DAILY NEEDED No current facility-administered medications on file prior to visit. Allergies Adhesive Physical Exam VITAL SIGNS: BP 155/59 Pulse (!) 49 Ht 1.727 m (5' 8 ) Wt 82.6 kg (182 lb) SpO2 96% BMI 27.67 kg/m??? Constitutional: Well developed, Well nourished, No [...] pressure Plan: -Continue current blood pressure medication regimen -Echo ordered to assess LVEF, wall motion, valvular function -Optimize medical management -Aggressive risk factor modification -Plan of care discussed with patient. All questions were answered. Patient voices understanding and is agreeable with current plan. -Patient was educated on red flag symptoms. Strict return precautions were provided. P (more content not included)... [facility] 11-13-2023 Evaluation + Plan note Associated Problem(s): Bilateral carotid artery stenosis without cerebral infarction We will start him on aspirin Plavix and statin. I discussed with him risk factors modification and close surveillance.Will get an ultrasound in a year. [facility] 11-13-2023 Miscellaneous Notes Associated Problem(s): Bilateral carotid artery stenosis without cerebral infarction We will start him on aspirin Plavix and statin. I discussed with him risk factors modification and close surveillance.Will get an ultrasound in a year. documented in this encounter [facility] 11-13-2023 History of Presen t illness Narrative Images from the original note were not included. To: ERIN BERG MD HPI: Mason Natarajan is a 88 y.o. male with 88-year-old gentleman with bilateral ICA stenosis.He has moderate right ICA stenosis and mild left ICA stenosis.He had both CTA and carotid duplex ultrasound. The results are consistent.He does not smoke he is an ex-smoker. He is not on aspirin Plavix nor statin.I discussed with him best medical therapy and surveillance imaging. Review of Systems: Review of Systems Constitutional: Negative. HENT: Negative. Respiratory: Negative. Cardiovascular: Negative. Gastrointestinal: Negative. Endocrine: Negative. Genitourinary: Negative. Musculoskeletal: Negative. Skin: Negative. Neurological: Negative. Hematological: Negative. Medications: Current Outpatient Medications on File Prior to Visit Medication Sig Dispense Refill amLODIPine (NORVASC) 10 mg tablet Take 1 tablet (10 mg total) by mouth in the morning. cetirizine (ZyrTEC) 10 mg tablet Take 1 tablet (10 mg total) by mouth in the morning. docusate sodium (COLACE) 100 mg capsule Take 1 capsule (100 mg total) by mouth as needed for constipation. garlic 1 mg capsule Take 500 mg by mouth. glucosamine-chondroitin 500-400 mg tablet Take 1 tablet by mouth in the morning and 1 tablet before bedtime. hydrALAZINE (APRESOLINE) 100 mg tablet Take 1 tablet (100 mg total) by mouth in the morning and 1 tablet (100 mg total) before bedtime. lecithin 1,200 mg capsule Take 1,200 mg by mouth. levothyroxine (SYNTHROID, LEVOTHROID) 50 MCG tablet Take 1 tablet (50 mcg total) by mouth in the morning. lisinopril (PRINIVIL,ZESTRIL) 40 mg tablet Take 1 tablet (40 mg total) by mouth in the morning. qwmuwphk-bsjcgbhv-pnmphbo fum (MULTI VITAMIN) 9 mg iron/15 mL liquid Take 500 mg by mouth. oxybutynin (DITROPAN) 5 mg tablet Take 1 tablet (5 mg total) by mouth every morning. pantoprazole (PROTONIX) 40 mg EC tablet Take 1 tablet (40 mg total) by mouth every morning before breakfast. potassium chloride (K-TAB,KLOR-CON) 10 MEQ CR tablet Take 1 tablet (10 mEq total) by mouth in the morning and 1 tablet (10 mEq total) in the evening. Take with meals. sucralfate (CARAFATE) 1 gram tablet Take 1 tablet (1 g total) by mouth every morning. tamsulosin (FLOMAX) 0.4 mg capsule Take 1 tablet by mouth nightly. tiZANidine (ZANAFLEX) 4 mg tablet Take 1 tablet (4 mg total) by mouth every morning. turmeric-turmeric root extract 450-50 mg capsule Take 50 mg by mouth. jaye, Zingiber officinalis, (JAYE EXTRACT) 250 mg capsule Take 250 mg by mouth. (Patient not taking: Reported on 11/13/2023) glimepiride (AMARYL) 2 mg tablet Take 2 mg by mouth every morning before breakfast. (Patient not taking: Reported on 11/13/2023) No current facility-administered medications on file prior to visit. Past Medical History: Past Medical History: Diagnosis Date Cataract Diabetes mellitus type 2, controlled ([facility]) Hypertension Hypothyroidism Injury of back 1984 back surgery Visual impairment glasses Past Surgical History: Past Surgical History: Procedure Laterality Date APPENDECTOMY BACK SURGERY CATARACT EXTRACTION IMPLANT SECONDARY LENS Left 07/31/2017 Performed by Orly Mares MD at [facility] SHOULDER SURGERY left rotator cuff TONSILLECTOMY Social and Family History: Social History Socioeconomic History Marital status: Spouse name: Not on file Number of children: Not on file Years of education: Not on file Highest education level: Not on file Occupational History Not on file Tobacco Use Smoking status: Former Current packs/day: 0.00 Types: Cigarettes Quit date: 08/01/1947 Years since quittin.3 Smokeless tobacco: Never Substance and Sexual Activity Alcohol use: Yes Alcohol/week: 1.0 standard drink of alcohol Types: 1 Glasses of wine per week Comment: 1 daily Drug use: No Sexual activity: Defer Other Topics Concern Not on file Social History Narrative Not on file Social Determinants of Health Financial Resource Strain: Not on file Food Insecurity: No Food Insecurity (11/13/2023) Hunger Screening Food Insecurity - Worry: Never True Food Insecurity - Inability: Never True Transportation Needs: Not on file Physical Activity: Not on file Stress: Not on file Social Connections: Not on file Interpersonal Safety: Unknown (05/29/2023) Received from [facility] Safety & Environment Fear of Current or Ex-Partner: Not on file Emotionally Abused: Not on file Physically Abused: Not on file Sexually Abused: Not on file Physically or Sexually Abused: Not on file Housing Instability: Not on file No family history on file. Recent Labs: Recent and relative labs were reviewed and interpreted and contributed to the assessment and plan below. Vitals: BP 156/82 (BP Site: Left Arm, BP Postition: Sitting, BP CUFF SIZE: M (9-13 inches)) Pulse 64 Ht 172.7 cm (5' 8 ) Wt 82.6 kg (182 lb) SpO2 94% BMI 27.67 kg/m Body mass index is 27.67 kg/m . Physical Exam: Physical Exam Constitutional: Appearance: Normal appearance. HENT: Head: Normocephalic and atraumatic. Mouth/Throat: Mouth: Mucous membranes are moist. Eyes: Extraocular Movements: Extraocular movements intact. Pupils: Pupils are equal, round, and reactive to light. Cardiovascular: Rate and Rhythm: Normal rate and regular rhythm. Pulmonary: Effort: Pulmonary effort is normal. Breath sounds: Normal breath sounds. Abdominal: General: Abdomen is flat. Bowel sounds are normal. Palpations: Abdomen is soft. Musculoskeletal: General: Normal range of motion. Cervical back: Normal range of motion. Skin: General: Skin is warm and dry. Neurological: General: No focal deficit present. Mental Status: He is alert and oriented to person, place, and time. Mental status is at baseline. Psychiatric: Mood and Affect: Mood normal. Behavior: Behavior normal. Thought Content: Thought content normal. Judgment: Judgment normal. 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 I discussed with him risk factors modification and close surveillance.Will get an ultrasound in a year. Mason was seen today for carotid stenosis. 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 While intending to generate a timely document that accurately reflects the content of the visit, no guarantee can be provided that every grammatical or spelling mistake has been or will be identified or corrected. Thank you for your understanding. documented in this encounter [facility] 07-07-2023 Note Cardiology Follow Up Progress Note Chief Complaint: Follow up HPI: Mason Natarajan is a 87 y.o. 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 [facility] 11-26-2022 Evaluation note Encounter Date Diagnosis Assessment Notes Nov, Microscopic colitis (ICD-10 - K52.89) Patient to use OTC probiotic and OTC Fiber supplement to help normalize the stools. Patient to finish remaining 2 weeks of medication and call if diarrhea returns after stopping the medication. RTO in 1 year. [facility] Other 09-22-2022 Evaluation note* Encounter Date Diagnosis Assessment Notes Treatment Notes Treatment Clinical Notes Dec, Microscopic colitis (ICD-10 - K52.89) REASSURANCE PT ADVISED TO ADD FIBER SUPPLEMENT TO DIET F/U PRN [facility] Other 08-23-2022 Hospital Discharge instructions Patient Education [...] urethra. Follow these instructions at home: Take [id number] and prescription medicines only as told by [...] 03/24/2006 Document Revised: 02/16/2019 Document Reviewed: 04/28/2017 [employer] Patient Education 2020 [email or web address]. Follow Up Care 05/30/2021 14:56:10 With:Darien REYNOLDS MD, URL Address: [facility] [address] [place], [place] [id number]- When:6 months [facility] 09-22-2021 Evaluation note* Encounter Date Diagnosis Assessment Notes Treatment Notes Treatment Clinical Notes Dec, Microscopic colitis (ICD-10 - K52.89) Colitis home care material was printed will taper the budesonide at this time patient to finish the 9 mg taper then move to the 6 mg taper. [facility] Other Evaluation + Plan note Future Appointments Appointment Date:06/11/2022 09:30:00 AM Scheduled Provider:Darien REYNOLDS MD Location:[facility] Appointment Type:URO Office Visit [facility] Evaluation note* Diagnosis Bilateral carotid artery stenosis without cerebral infarction- Primary Occlusion and stenosis of unspecified carotid artery documented [facility] this [facility] general Narrative - Reported* Type Description Date Surgical History vasectomy 1979 Surgical History umbilical hernia repair 1982 Surgical History back surgery-lower 1984 Surgical History appendectomy 1991 Surgical History cataract removal L 1999 Surgical History rotator cuff L 2007 Surgical History elbow surgery R 2007 Surgical History carpal tunnel release R 2007 Surgical History cataract removal R 2012 Surgical History eye surgery L Surgical History torn macula L 1997 Hospitalization History SEE ABOVE SURGICAL HX [facility] Other History general Narrative - Reported* Type Description Date Surgical History vasectomy 1979 Surgical History umbilical hernia repair 1982 Surgical History back surgery-lower 1985 Surgical History appendectomy 1991 Surgical History cataract removal L 1999 Surgical History rotator cuff L 2007 Surgical History elbow surgery R 2007 Surgical History carpal tunnel release R 2007 Surgical History cataract removal R 2012 Surgical History eye surgery L Surgical History torn macula L 1997 Hospitalization History SEE ABOVE SURGICAL HX Hospitalization History A1c down- [facility] 05/2022 [facility] Other Hospital course Narrative No data available for this section [facility] Hospital Discharge instructions No data available for this section [facility] InstructionsNot on filedocumented in this encounter [facility] note No data available for this section [facility] Tripsourcing Summary Purpose Family History No Family History Records FoundNo Family History Records FoundNo Family History Records FoundNo Family History Records Found No data available for this section No Family History Records FoundNo Family History Records Found Advance Directives No Advanced Directives Records FoundNo Advanced Directives Records FoundNo Advanced Directives Records FoundNo Advanced Directives Records FoundNo Advanced Directives Records FoundNo Advanced Directives Records Found Reason for Referral Specialty Diagnoses / Procedures Referred By Odalys teresa Referred To Contact Diagnoses Occlusion and stenosis of unspecified carotid artery Bilateral carotid artery stenosis without cerebral infarction Procedures Vas carotid duplex bilateral Linda Montelongo MD [address], [place] [address] Referral ID Status Reason Start Date Expiration Date V isits Requested Visits Authorized [id number] Pending Review 11/13/2023 11/12/2024 1 1 Additional Source Comments (unrecognized sect ion and content) No Status Records FoundNo Status Records FoundNo Status Records FoundNo Status Records FoundNo Status Records FoundNo Status Records Found INFORMATION SOURCE (unrecogn ized section and content) DATE CREATED AUTHOR 09/30/2017 [facility] DATE CREATED AUTHOR AUTHOR'S ORGANIZ ATION 09/30/2017 [facility] DATE CREATED AUTHOR AUTHOR'S ORGANIZ ATION 10/30/2020 [facility] DATE CREATED AUTHOR AUTHOR'S ORGANIZ ATION 08/19/2022 [facility] DATE CREATED AUTHOR AUTHOR'S ORGANIZ ATION 08/10/2023 Kiko Selby [facility] DATE CREATED AUTHOR AUTHOR'S ORGANIZ ATION 02/23/2024 [facility] REASON FOR VISIT (unrecogniz ed section and content) Reason Comments carotid stenosis Venous duplex in med ia Specialty Diagnoses / Procedures Referred By Contac t Referred To Contact Vascular Surgery Diagnoses Occlusion and stenosis of unspecified carotid artery Erin Berg MD [address] [id number] Linda Montelongo MD [facility] [place] [id number] Referral ID Status Reason Start Date Expiration Date Visits Requested Visits Authorized [id number] Pending Review Specialty Services Required 11/04/2023 11/03/2024 1 1 Care Team (unrecognized sect ion and content) Packer Relationship Specialty Start Date End Date Erin Berg MD [address] [phone] PCP - General 07/31/17 FOR RECORDS PERTAINING TO PATIENTS WHO ARE [...] BE BASED ON THE PRIMARY CLINICAL RECORDS. [employer] provides no warranty or guarantee of the accuracy or completeness of information in this document.
[2024-05-03 14:18] LABS: Calcium 8.7 mg/dL (8.5-10.1); Carbon Dioxide 21.6 mmol/L (21.0-32.0); Chloride 111 mmol/L (98-107); Estimated GFR (African America 51 (>=60 mL/min/1.73m^2); Estimated GFR (Non-African Ame 42 (>=60 mL/min/1.73m^2); Glucose 130 mg/dL (74-106); Potassium 5.6 mmol/L (3.5-5.1); Sodium 141 mmol/L (136-145)
== END 2024-05-03 12:49 | disposition home or self-care (01) ==
LOC: LAB 12:49
PROVIDERS: PCP Family Medicine; Visit Provider Internal Medicine Cardiovascular Disease
DX: I10 Essential (primary) hypertension (principal)
CPT/HCPCS: 36415; 80048

== ENCOUNTER 2024-05-07 08:50 | Outpatient (OUT) | payer MEDICARE, OTHER, SELFPAY ==
--- OUTSIDE RECORDS SUMMARY | 2024-05-07 08:59 | XMS_ITS | CCD ---
Author Organization [facility] Care Team Providers Care Insulation Blanket Maker Name Role Phone CHET NESBITT Unavailable Unavailable LAZ CHET Unavailable Unavailable ERIN BERG Unavailable Unavailable PHYSICIAN, [...] Admitting Unavailable MARK LEE Consulting Unavailable ALGHOTHANI, MOHTALHA Consulting Unavailable HOY ., DR KHAN Primary Care Unavailable ALGHOTHANI, MOHTALHA Attending Unavailable ALGHOTHANI, MOHAMAD Admitting Unavailable HOY ., DR KHAN [...] HO Consulting Unavailable YANIV DACOSTA Consulting Unavailable DARAMOLMAN Harris Consulting Unavailable ALGHOTHANI, MOHAMAD Consulting Unavailable ALGHOTHANI, MOHAMAD Admitting Unavailable ALGHOTHKAYLENE, MOHAMAD Attending Unavailable HOY ., DR KHAN [...] Unavailable HOY ., DR KHAN Admitting Unavailable Ziebivy, Geovany Consulting Unavailable Darien REYNOLDS Attending Unavailable Darien REYNOLDS Attending Unavailable Alli MUKHERJEE Attending Unavailable Erin Berg Referring Unavailable Ignacioy Erin GARCIA Primary Care Provider [phone] ALGHOTHANI, MOHAMAD Attending Unavailable ALGHOTHANI, MOHAMAD Attending Unavailable ARNEL BAEZA Attending Unavailable Allergies Allergy Classification Reported Allergen(s) Allergy Type Date of Onset Reaction(s) Facility (1 source) No Known Medication Allergies; Translations: [No Known Medication Allergies] Propensity to adverse reactions (disorder) [facility] Repository (1 source) Adhesive agent; Translations: [ADHESIVE] Propensity to adverse reactions to drug (disorder) 7 [facility] Repository Medications Current Medications Medication [...] tablet (5 sources) Cholinergic Muscarinic Antagonist Start: 024 take 1 tablet by mouth once daily in the morning oxybutynin (DITROPAN) 5 mg tablet Take 1 tablet (5 mg total) by mouth every morning. 11/12/2023 Active Start: 10-17-2021 take 1 tablet by anna th once daily oxybutynin 5 mg Tab 5 mg = 1 tab(s), Oral, Daily, # 30 tab(s), Refills(s) 11, Pharmacy: [facility][id number], [id number], cm, 06/11/22 9:50:00 EST, [...] 11/05/2023 Active take 1 capsule by mo [facility] every twelve hours Potassium Chloride ER 10 MEQ 1 capsule with food Orally Twice a day Active sucralfate 1000 mg oral tablet (2 sources) Aluminum Complex take 1 tablet by mouth once daily in the morning sucralfate (CARAFATE) 1 gram tablet Take 1 tablet (1 g total) by mouth every morning. Active take 1 tablet by anna th every twelve hours Sucralfate 1 GM 1 tablet on an empty stomach Orally Twice a day Active tamsulosin hydrochloride 0.4 mg oral capsule (6 sources) alpha-Adrenergic Faith Start: 06-11-2022 take 1 capsule by mouth once daily tamsulosin 0.4 mg Cap 0.4 mg = 1 cap(s), Oral, Daily Start Date: 06/11/22 Status: Ordered Start: 11-27-2021 take 1 capsule by mo uth twice daily tamsulosin 0.4 mg Cap 0.4 mg = 1 cap(s), Oral, BID Start Date: 11/27/21 Status: Ordered tiZANidine 4 mg oral tablet (5 sources) Central alpha-2 Adrenergic Agonist Start: 11-27-2021 take 1 tablet by mouth every eight hours tiZANidine 4 mg Tab 4 mg = 1 tab(s), Oral, q8hr Start Date: 11/27/21 Status: Ordered take 1 tablet by anna th once daily in the morning tiZANidine (ZANAFLEX) 4 mg tablet Take 1 tablet (4 mg total) by mouth every morning. Active turmeric-turmeric root extra ct 450-50 mg capsule (1 source) turmeric-turmeri c root extract 450-50 mg capsule Take 50 mg by mouth. 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 Baeza regarding elevated potassium and renal function. He advised patient stop potassium, repeat labs in 5-7 days, and also see his hat cutter if he has one. I then spoke with Srinivasa Natarajan - who said Dr. Berg already advised him to stop potassium. He also said Dr. Berg ordered repeat labs to be done in the next few days. He does not see a hat cutter but agreed to a referral. I put one in and faxed it to [facility] in [place]. Patient verbalized understanding. Normal [facility] Office Visiton 04-30-2024 Follow-up visit [id number] Caprice Natarajan 1935 M Date Provider Department Center 04/30/2024 384ARNEL CREWS Family History Problem Relation Age of Onset Diabetes Father Hypertension Father Family Status - Relation Status Age at Father Level of Service:81085 [place] OFFICE/OUTPATIENT ESTABLISHED MOD MDM 30 MIN Normal [facility] Office Visiton 01-05-2024 Follow-up visit [id number] Caprice Natarajan 1935 M Date Provider Department Center 01/05/2024 3848-ALGHOTHANI, MOHAMAD BH CARD [facility] Family History Problem Relation Age of Onset Diabetes Father Hypertension Father Family Status - Relation Status Age at Father Level of Service:23601 [place] OFFICE/OUTPATIENT ESTABLISHED LOW MDM 20 MIN Normal [facility] Office Visiton 07-07-2023 Follow-up visit [id number] Caprice Natarajan 1935 M Date Provider Department Center 07/07/2023 3848-ARNEL BAEZA [facility] Hos Family History Problem Relation Age of Onset Diabetes Father Hypertension Father Family Status - Relation Status Age at Father Level of Service:86660 [place] OFFICE/OUTPATIENT ESTABLISHED LOW MDM 20 MIN Reason for Visit and Comments: Follow-up [946210] - 6 month follow up Normal [facility] STOOL CULTUREon 08-18-2022 Campylobacter Culture Final report Normal [facility] Comment on above: Performed By: #### C XSTOOL #### [facility] [address] [address] [address] Deepika Terrell E coli Shiga Toxin EIA Negative Normal Negative [facility] Comment on above: Performed By: #### C XSTOOL #### [facility] [address] [address] [address] Deepika Terrell Result 1 Comment Normal [facility] Comment on above: Result Comment: No S almonella or Shigella recovered. Performed By: #### C XSTOOL #### [facility] [address] [address] [address] Deepika Terrell Result Comment: No C ampylobacter species isolated. Salmonella/Shigell a Screen Final report Normal [facility] Comment on above: Performed By: #### C XSTOOL #### [facility] [address] [address] [address] Deepika Terrell C. DIFF PCRon 08-13-2022 C. DIFFICILE PCR Negative Normal NEGATIVE [facility] Comment on above: Performed By: #### B MP #### [facility] [address] [address] [address] Deepika Terrell Consultation Noteon 08-14-19 23 Consultation Note [id number]:127 Normal [facility] OCC BLD IMMUNO SCREENon 05-0 OCCULT BLOOD Negative Normal NEGATIVE [facility] Comment on above: Performed By: #### B #### [facility] [id number] Deeipka Terrell RAD - MISCon 08-13-2022 RAD - MISC [id number]:127 Normal [facility] Physician Referralon 023 Physician Referral [id number]:127 Normal [facility] NM HEPATOBILIARY SCAN W EFon 08-09-2022 [...] GEOVANY ESPINAL Date: 2022-08-09 10:42 Normal [address] [facility] US SINGLE QUAD RT UPPERon [...] KURT JOE Date: 2022-08-08 07:42 Normal [address] [facility] GLYCOHEMOGLOBIN A1Con 2022 ADA RECOMMENDATION SEE BELOW Normal The [facility] Comment on above: Result Comment: ADA RECOMMENDED LIMIT 4.0 - 6.0 ADA THERAPEUTIC TARGET < 7.0 ACTION SUGGESTED > 7.0 Performed By: #### I NSULT #### [facility] [address] [address] [address] Deepika Terrell Glucose [Mass/Vol] 117 mg/dL Normal [facility] Comment on above: Performed By: #### I NSULT #### [facility] [address] [address] [address] Deepika Terrell HbA1c (Bld) [Mass fraction] 5.7 % Normal 4.5-6.2 [facility] Comment on above: Performed By: #### I NSULT #### [facility] [address] ABD/PELVIS WO CONon [...] MARK LEE Date: 2022-07-20 07:40 Normal [address] [facility] CBC AUTO DIFFon 07-19-2022 BASO # 0.0 103/ul Normal 0.0-0.1 [facility] Comment on above: Performed By: #### C BC #### [facility] [address] [place] [address] Dr. Deepika Terrell Basophils/100 WBC (Bld) 0.3 % Normal 0.2-2.0 [facility] Comment on above: Performed By: #### C BC #### [facility] [address] [place] [address] Dr. Deepika Terrell EO # 0.3 103/ul Normal 0.0-0.7 [facility] Comment on above: Performed By: #### C BC #### [facility] [address] [place] [address] Dr. Deepika Terrell Eosinophils/100 WBC (Bld) 2.4 % Normal 0.9-7.0 [facility] Comment on above: Performed By: #### C BC #### [facility] [address] [place] [address] Dr. Deepika Terrell Erythrocyte distribution width (RBC) [Ratio] 14.8 % Normal 11.0-15.0 [facility] Comment on above: Performed By: #### C BC #### [facility] [address] [place] [address] Dr. Deepika Terrell Hematocrit (Bld) [Volume fraction] 33.8 % Critically low 42.0-54.0 [facility] Comment on above: Performed By: #### C BC #### [facility] [address] [place] [address] Dr. Deepika Terrell Hemoglobin (Bld) [Mass/Vol] 11.0 g/dL Critically low 14.0-18.0 [facility] Comment on above: Performed By: #### C BC #### [facility] [address] [place] [address] Dr. Deepika Terrell IG # 0.08 10e3/ul Critically high 0.00-0.03 [facility] Comment on above: Performed By: #### C BC #### [facility] [address] [place] [address] Dr. Deepika Terrell IG % 0.7 % Critically high 0.0-0.5 [facility] Comment on above: Performed By: #### C BC #### [facility] [address] [place] [address] Dr. Deepika Terrell LYMPH # 3.5 103/ul Normal 1.2-3.8 [facility] Comment on above: Performed By: #### C BC #### [facility] [address] [place] [address] Dr. Deepika Terrell Lymphocytes/100 WBC (Bld) 29.2 % Normal 20.5-60.0 [facility] Comment on above: Performed By: #### C BC #### [facility] [address] [place] [address] Dr. Deepika Terrell MANUAL DIFF REQ NO Normal [facility] Comment on above: Performed By: #### C BC #### [facility] [address] [place] [address] Dr. Deepika Terrell MCH (RBC) [Entitic mass] 29.4 pg Normal 25.9-34.0 [facility] Comment on above: Performed By: #### C BC #### [facility] [address] [place] [address] Dr. Deepika Terrell MCHC (RBC) [Mass/Vol] 32.5 g/dL Normal 29.9-35.[address] [facility] Comment on above: Performed By: #### C BC #### [facility] [address] [place] [address] Dr. Deepika Terrell MCV (RBC) [Entitic vol] 90.4 fL Normal 80.0-94.0 [facility] Comment on above: Performed By: #### C BC #### [facility] [address] [place] [address] Dr. Deepika Terrell MONO # 0.7 103/ul Normal 0.3-0.8 [facility] Comment on above: Performed By: #### C BC #### [facility] [address] [place] [address] Dr. Deepika Terrell Monocytes/100 WBC (Bld) 6.1 % Normal 1.7-12.0 [facility] Comment on above: Performed By: #### C BC #### [facility] [address] [place] [address] Dr. Deepika Terrell NEUT # 7.3 103/ul Critically high 1.4-6.5 [facility] Comment on above: Performed By: #### C BC #### [facility] [address] [place] [address] Dr. Deepika Terrell Neutrophils/100 WBC (Bld) 61.3 % Normal 43.0-75.0 [facility] Comment on above: Performed By: #### C BC #### [facility] [address] [place] [address] Dr. Deepika Terrell Platelet mean volume (Bld) [Entitic vol] 10.8 fL Normal 9.5-13.[address] [facility] Comment on above: Performed By: #### C BC #### [facility] [address] [place] [address] Dr. Deepika Terrell PLT 372 103/ul Normal 150-[address] [facility] Comment on above: Performed By: #### C BC #### [facility] [address] [place], [place] [address] Dr. Deepika Terrell RBC 3.74 106/ul Critically low 4.70-6.10 [facility] Comment on above: Performed By: #### C BC #### [facility] [address] [place] [address] Dr. Deepika Terrell WBC 11.9 103/ul Critically high 4.0-11.0 [facility] Comment on above: Performed By: #### C BC #### [facility] [address] [address] [address] Deepika Terrell PROF CHEM 8 (BAS METB)on Anion gap [Moles/Vol] 16.1 mmol/L Normal [facility] Comment on above: Performed By: #### I NSULT #### [facility] [address] [place] [address] Dr. Deepika Terrell Calcium [Mass/Vol] 9.0 mg/dL Normal 8.5-10.1 [facility] Comment on above: Performed By: #### I NSULT #### [facility] [address] [place] [address] Dr. Deepika Terrell Chloride [Moles/Vol] 108 mmol/L Critically high 98-107 [facility] Comment on above: Performed By: #### I NSULT #### [facility] [address] [place] [address] Dr. Deepika Terrell CO2 [Moles/Vol] 19.3 mmol/L Critically low 21.0-32.0 [facility] Comment on above: Performed By: #### I NSULT #### [facility] [address] [place] [address] Dr. Deepika Terrell Creatinine [Mass/Vol] 2.68 mg/dL Critically high 0.70-1.30 [facility] Comment on above: Performed By: #### I NSULT #### [facility] [address] [place] [address] Dr. Deepika Terrell EGFR-AF ALBANIAN 27 mL/min/1.73m2 Critically low >=[address] [facility] Comment on above: Performed By: #### I NSULT #### [facility] [address] [place] [address] Dr. Deepika Terrell EGFR-NON AF ALBANIAN 23 mL/min/1.73m2 Critically low >=60 [facility] Comment on above: Performed By: #### I NSULT #### [facility] [address] [place] [address] Dr. Deepika Terrell Glucose [Mass/Vol] 138 mg/dL Critically high 74-106 [facility] Comment on above: Performed By: #### I NSULT #### [facility] [address] [place] [address] Dr. Deepika Terrell Potassium [Moles/Vol] 4.4 mmol/L Normal 3.5-5.1 [facility] Comment on above: Performed By: #### I NSULT #### [facility] [address] [address] [address] Deepika Terrell Sodium [Moles/Vol] 139 mmol/L Normal 136-145 [facility] Comment on above: Performed By: #### I NSULT #### [facility] [address] [place] [address] Dr. Deepika Terrell Urea nitrogen [Mass/Vol] 68.0 mg/dL Critically high 7.0-18.0 [facility] Comment on above: Performed By: #### I NSULT #### [facility] [address] [place] [address] Dr. Deepika Terrell Urea nitrogen/Creatinin e [Mass ratio] 25.4 mg/mg Normal [facility] Comment on above: Performed By: #### I NSULT #### [facility] [address] [place] [address] Dr. Deepika Terrell CA 19-9on 07-18-2022 CA 19-9 9 U/mL Normal 0-35 [facility] Comment on above: Result Comment: [employer] Electrochemiluminescence Immunoassay (ECLIA) . Values obtained with different assay methods or kits cannot be used interchangeably. Results cannot be interpreted as absolute evidence of the presence or absence of malignant disease. Performed By: #### B MP #### [facility] [address] [place] [address] Dr. Deepika Terrell CEAon 07-18-2022 CEA 3.1 ng/mL Normal 0.0-4.7 [facility] Comment on above: Result Comment: Nons mokers <3.9 Smokers <5.6 . [employer] Electrochemiluminescence Immunoassay (ECLIA) . Values obtained with different assay methods or kits cannot be used interchangeably. Results cannot be interpreted as absolute evidence of the presence or absence of malignant disease. Performed By: #### I NSULT #### [facility] [address] [place] [address] Dr. Deepika Terrell HELICOBACTER PYLORI AB IGMon 07-18-2022 H pylori, IgM Abs <9.0 Normal 0.0-8.9 [facility] Comment on above: Result Comment: Nega tive <9.0 Equivocal 9.0 - 11.0 Positive >11.0 . This test was developed and its performance characteristics determined by [employer]. It has not been cleared or approved by the Food and Drug Administration. Performed By: #### C PEPT #### [facility] [address] [place] [address] Dr. Deepika Terrell AMYLASEon 07-17-2022 Amylase [Catalytic activity/Vol] 38 U/L Normal 25-115 [facility] Comment on above: Performed By: #### C BC #### [facility] [address] [place] [address] Dr. Deepika Terrell CBC W MANUAL DIFFon 07-18-19 23 ATYPICAL LYMPH # Normal [facility] Comment on above: Performed By: #### E RUR #### [facility] [address] [place] [address] Dr. Deepika Terrell ATYPICAL LYMPH % Normal [facility] Comment on above: Performed By: #### E RUR #### [facility] [address] [place] [address] Dr. Deepika Terrell BAND # Normal 0.0-0.[address] [facility] Comment on above: Performed By: #### E RUR #### [facility] [address] [place] [address] Dr. Deepika Terrell BAND % Normal 0-[address] [facility] Comment on above: Performed By: #### E RUR #### [facility] [address] [place] [address] Dr. Deepika Terrell BASOM # 0.00 103/ul Normal 0.00-0.[address] [facility] Comment on above: Performed By: #### E RUR #### [facility] [address] [place] [address] Dr. Deepika Terrell BASOM % 0.0 % Critically low 0.2-2.0 [facility] Comment on above: Performed By: #### E RUR #### [facility] [address] [address] [address] Deepika Terrell BLAST # Normal [facility] Comment on above: Performed By: #### E RUR #### [facility] [address] [address] [address] Deepika Terrell BLAST % Normal [facility] Comment on above: Performed By: #### E RUR #### [facility] [address] [place] [address] Dr. Deepika Terrell CORRECTED WBC Normal 4.0-11.0 [facility] Comment on above: Performed By: #### E RUR #### [facility] [address] [place] [address] Dr. Deepika Terrell EOS # 0.00 103/ul Normal 0.00-0.70 [facility] Comment on above: Performed By: #### E RUR #### [facility] [address] [place] [address] Dr. Deepika Terrell EOS% 0.0 % Critically low 0.9-7.0 [facility] Comment on above: Performed By: #### E RUR #### [facility] [address] [place] [address] Dr. Deepika Terrell HCT 35.9 % Critically low 42.0-54.0 [facility] Comment on above: Performed By: #### E RUR #### [facility] [address] [place] [address] Dr. Deepika Terrell HGB 11.6 g/dl Critically low 14.0-18.0 [facility] Comment on above: Performed By: #### E RUR #### [facility] [address] [place] [address] Dr. Deepika Terrell LYMPHM # 3.48 103/ul Normal 1.20-3.[address] [facility] Comment on above: Performed By: #### E RUR #### [facility] [address] [place] [address] Dr. Deepika Terrell LYMPHM% 17.0 % Critically low 20.5-60.0 [facility] Comment on above: Performed By: #### E RUR #### [facility] [address] [place] [address] Dr. Deepika Terrell MCH 29.5 pg Normal 25.9-34.[address] [facility] Comment on above: Performed By: #### E RUR #### [facility] [address] [place] [address] Dr. Deepika Terrell MCHC 32.3 g/dl Normal 29.9-35.2 [facility] Comment on above: Performed By: #### E RUR #### [facility] [address] [place] [address] Dr. Deepika Terrell MCV 91.3 fL Normal 80.0-94.0 [facility] Comment on above: Performed By: #### E RUR #### [facility] [address] [place] [address] Dr. Deepika Terrell METAMYELOCYTE # Normal [facility] Comment on above: Performed By: #### E RUR #### [facility] [address] [place] [address] Dr. Deepika Terrell METAMYELOCYTE % Normal [facility] Comment on above: Performed By: #### E RUR #### [facility] [address] [place] [address] Dr. Deepika Terrell MONOM# 1.23 103/ul Critically high 0.30-0.80 [facility] Comment on above: Performed By: #### E RUR #### [facility] [address] [place] [address] Dr. Deepika Terrell MONOM% 6.0 % Normal 1.7-12.0 [facility] Comment on above: Performed By: #### E RUR #### [facility] [address] [place] [place] [address] Dr. Deepika Terrell MPV 10.8 fL Normal 9.5-13.5 [facility] Comment on above: Performed By: #### E RUR #### [facility] [address] [address] [address] Deepika Terrell MYELOCYTE # Normal [facility] Comment on above: Performed By: #### E RUR #### [facility] [address] [address] [address] Deepika Terrell MYELOCYTE % Normal [facility] Comment on above: Performed By: #### E RUR #### [facility] [address] [address] [address] Deepika Terrell NRBC Normal [facility] Comment on above: Performed By: #### E RUR #### [facility] [address] [place] [address] Dr. Deepika Terrell PLT 423 103/ul Normal 150-450 [facility] Comment on above: Performed By: #### E RUR #### [facility] [address] [address] [address] Deepika Terrell RBC 3.93 106/ul Critically low 4.70-6.10 [facility] Comment on above: Performed By: #### E RUR #### [facility] [address] [place] [address] Dr. Deepika Terrell RDW 14.7 % Normal 11.0-15.0 [facility] Comment on above: Performed By: #### E RUR #### [facility] [address] [address] [address] Deepika Terrell SEG # 15.79 103/ul Critically high 1.40-6.50 [facility] Comment on above: Performed By: #### E RUR #### [facility] [address] [place] [address] Dr. Deepika Terrell SEG % 77.0 % Critically high 43.0-75.0 [facility] Comment on above: Performed By: #### E RUR #### [facility] [address] [address] [address] Deepika Terrell WBC 20.5 103/ul Critically high 4.0-11.0 [facility] Comment on above: Performed By: #### E RUR #### [facility] [address] [place] [address] Dr. Deepika Terrell FREE THYROXINE INDEX T7on FTI 1.95 Normal 1.30-4.50 [facility] Comment on above: Performed By: #### C BC #### [facility] [address] [place] [address] Dr. Deepika Terrell T3U 39.0 % Normal 33.0-40.0 [facility] Comment on above: Performed By: #### C BC #### [facility] [address] [place] [address] Dr. Deepika Terrell T4 [Mass/Vol] 5.00 ug/dL Normal 4.50-12.10 [facility] Comment on above: Performed By: #### C BC #### [facility] [address] [place] [address] Dr. Deepika Terrell LIPASEon 07-17-2022 Lipase [Catalytic activity/Vol] 126.0 U/L Normal 73.0-393.0 [facility] Comment on above: Performed By: #### C BC #### [facility] [address] [place] [address] Dr. Deepika Terrell LIVER PROFILEon 07-17-2022 Albumin [Mass/Vol] 3.7 g/dL Normal 3.4-5.0 [facility] Comment on above: Performed By: #### C BC #### [facility] [address] [place] [address] Dr. Deepika Terrell Albumin/Globulin [Mass ratio] 1.0 {ratio} Normal [facility] Comment on above: Performed By: #### C BC #### [facility] [address] [place] [address] Dr. Deepika Terrell ALP [Catalytic activity/Vol] 82 U/L Normal 46-116 [facility] Comment on above: Performed By: #### C BC #### [facility] [address] [place] [address] Dr. Deepika Terrell ALT [Catalytic activity/Vol] 33 U/L Normal 16-63 [facility] Comment on above: Performed By: #### C BC #### [facility] [address] [address] [address] Deepika Terrell AST [Catalytic activity/Vol] 15 U/L Normal 15-37 [facility] Comment on above: Performed By: #### C BC #### [facility] [address] [place], [place] [address] Dr. Deepika Terrell BILI, CONJUGATED 0.1 mg/dL Normal 0.0-0.2 [facility] Comment on above: Performed By: #### C BC #### [facility] [address] [address] [address] Deepika Terrell Bilirubin [Mass/Vol] 0.2 mg/dL Normal 0.2-1.0 [facility] Comment on above: Performed By: #### C BC #### [facility] [address] [place] [address] Dr. Deepika Terrell Globulin (S) [Mass/Vol] 3.6 g/dL Normal [facility] Comment on above: Performed By: #### C BC #### [facility] [address] [address] [address] Deepika Terrell Protein [Mass/Vol] 7.3 g/dL Normal 6.4-8.2 [facility] Comment on above: Performed By: #### C BC #### [facility] [address] [address] [address] Deepika Terrell PERIPHERAL SMEARon 3 Pathologist Cyto stain Nom (Cvx/Vag) [ID] DR. ANNIKA NIETO Normal [facility] Comment on above: Result Comment: revi ew of smear reveals n/n w/aniso. plts. normal. leukocytosis with neutrophili and absolute monocytosis. no atypical lymphs, immature blasts seen. these findings are suggestive of a reactive process. clinical correlation is recommend Performed By: #### P ERSMR #### [facility] [address] [place] [address] Dr. Deepika Terrell PROF CHEM 8 (BAS METB)on Anion gap [Moles/Vol] 19.0 mmol/L Normal [facility] Comment on above: Performed By: #### C BC #### [facility] [address] [address] [address] Deepika Terrell Calcium [Mass/Vol] 9.5 mg/dL Normal 8.5-10.1 [facility] Comment on above: Performed By: #### C BC #### [facility] [address] [address] [address] Deepika Terrell Chloride [Moles/Vol] 112 mmol/L Critically high 98-107 [facility] Comment on above: Performed By: #### C BC #### [facility] [address] [address] [address] Deepika Terrell CO2 [Moles/Vol] 19.4 mmol/L Critically low 21.0-32.0 [facility] Comment on above: Performed By: #### C BC #### [facility] [address] [address] [address] Deepika Terrell Creatinine [Mass/Vol] 2.51 mg/dL Critically high 0.70-1.30 [facility] Comment on above: Performed By: #### C BC #### [facility] [address] [place] [address] Dr. Deepika Terrell EGFR-AF ALBANIAN 30 mL/min/1.73m2 Critically low >=60 [facility] Comment on above: Performed By: #### C BC #### [facility] [address] [address] [address] Deepika Terrell EGFR-NON AF ALBANIAN 24 mL/min/1.73m2 Critically low >=60 [facility] Comment on above: Performed By: #### C BC #### [facility] [address] [address] [address] Deepika Terrell Glucose [Mass/Vol] 159 mg/dL Critically high 74-106 [facility] Comment on above: Performed By: #### C BC #### [facility] [address] [address] [address] Deepika Terrell Potassium [Moles/Vol] 4.4 mmol/L Normal 3.5-5.1 [facility] Comment on above: Performed By: #### C BC #### [facility] [address] [address] [address] Deepika Terrell Sodium [Moles/Vol] 146 mmol/L Critically high 136-145 [facility] Comment on above: Performed By: #### C BC #### [facility] [address] [address] [address] Deepika Terrell Urea nitrogen [Mass/Vol] 67.0 mg/dL Critically high 7.0-18.0 [facility] Comment on above: Performed By: #### C BC #### [facility] [address] [place] [address] Dr. Deepika Terrell Urea nitrogen/Creatinin e [Mass ratio] 26.7 mg/mg Normal [facility] Comment on above: Performed By: #### C BC #### [facility] [address] [place] [address] Dr. Deepika Terrell TSHon 07-17-2022 TSH 0.884 uIU/mL Normal 0.358-3.740 [facility] Comment on above: Performed By: #### C BC #### [facility] [address] [place] [address] Dr. Deepika Terrell INSULIN FREE AND TOTALon Free Insulin 22 uU/mL Critically high [facility] Comment on above: Result Comment: Refe rence Range: Pubertal Children and Adults (fasting): 0 - 17 Performed By: #### I NSULT #### [facility] [address] [place] [address] Dr. Deepika Terrell Total Insulin 22 uU/mL Normal [facility] Comment on above: Result Comment: Non- Diabetic: [...] developed and its performance characteristics determined by [employer]. It has not been cleared or approved by the Food and Drug Administration. Performed By: #### I NSULT #### [facility] [address] [place] [address] Dr. Deepika Terrell C-PEPTIDE, SERUMon 3 C-Peptide, Serum 7.7 ng/mL Critically high 1.1-4.[address] [facility] Comment on above: Result Comment: C-Pe ptide reference interval is for fasting patients. Performed By: #### C PEPT #### [facility] [address] [place] [address] Dr. Deepika Terrell OVA AND PARASITE EXAMINATION on 06-04-2022 Ova + Parasite Exam Final report Normal [facility] Comment on above: Result Comment: Thes e results were obtained using wet preparation(s) and trichrome stained smear. This test does not include testing for Cryptosporidium parvum, Cyclospora, or Microsporidia. Performed By: #### B MP #### [facility] [address] [place] [address] Dr. Deepika Terrell Result 1 Comment Normal [facility] Comment on above: Result Comment: No o va, cysts, or parasites seen. . One negative specimen does not rule out the possibility of a parasitic infection. Performed By: #### B MP #### [facility] [address] [place] [address] Dr. Deepika Terrell CBC AUTO DIFFon 06-02-2022 BASO # 0.0 103/ul Normal 0.0-0.1 [facility] Comment on above: Performed By: #### I NSULT #### [facility] [address] [place] [address] Dr. Deepika Terrell Basophils/100 WBC (Bld) 0.4 % Normal 0.2-2.0 [facility] Comment on above: Performed By: #### I NSULT #### [facility] [address] [place] [address] Dr. Deepika Terrell EO # 0.4 103/ul Normal 0.0-0.7 [facility] Comment on above: Performed By: #### I NSULT #### [facility] [address] [place] [address] Dr. Deepika Terrell Eosinophils/100 WBC (Bld) 3.3 % Normal 0.9-7.0 [facility] Comment on above: Performed By: #### I NSULT #### [facility] [address] [place] [address] Dr. Deepika Terrell Erythrocyte distribution width (RBC) [Ratio] 14.6 % Normal 11.0-15.0 [facility] Comment on above: Performed By: #### I NSULT #### [facility] [address] [place] [address] Dr. Deepika Terrell Hematocrit (Bld) [Volume fraction] 29.8 % Critically low 42.0-54.0 [facility] Comment on above: Performed By: #### I NSULT #### [facility] [address] [place] [address] Dr. Deepika Terrell Hemoglobin (Bld) [Mass/Vol] 9.8 g/dL Critically low 14.0-18.0 [facility] Comment on above: Performed By: #### I NSULT #### [facility] [address] [place] [address] Dr. Deepika Terrell IG # 0.05 10e3/ul Critically high 0.00-0.03 [facility] Comment on above: Performed By: #### I NSULT #### [facility] [address] [place] [address] Dr. Deepika Terrell IG % 0.5 % Normal 0.0-0.5 [facility] Comment on above: Performed By: #### I NSULT #### [facility] [address] [place] [address] Dr. Deepika Terrell LYMPH # 1.9 103/ul Normal 1.2-3.[address] [facility] Comment on above: Performed By: #### I NSULT #### [facility] [address] [place] [address] Dr. Deepika Terrell Lymphocytes/100 WBC (Bld) 17.3 % Critically low 20.5-60.0 [facility] Comment on above: Performed By: #### I NSULT #### [facility] [address] [place] [address] Dr. Deepika Terrell MANUAL DIFF REQ NO Normal [facility] Comment on above: Performed By: #### I NSULT #### [facility] [address] [place] [address] Dr. Deepika Terrell MCH (RBC) [Entitic mass] 29.9 pg Normal 25.9-34.0 [facility] Comment on above: Performed By: #### I NSULT #### [facility] [address] [place] [address] Dr. Deepika Terrell MCHC (RBC) [Mass/Vol] 32.9 g/dL Normal 29.9-35.2 [facility] Comment on above: Performed By: #### I NSULT #### [facility] [address] [place] [address] Dr. Deepika Terrell MCV (RBC) [Entitic vol] 90.9 fL Normal 80.0-94.0 [facility] Comment on above: Performed By: #### I NSULT #### [facility] [address] [place] [address] Dr. Deepika Terrell MONO # 0.8 103/ul Normal 0.3-0.8 [facility] Comment on above: Performed By: #### I NSULT #### [facility] [address] [place] [address] Dr. Deepika Terrell Monocytes/100 WBC (Bld) 7.4 % Normal 1.7-12.0 [facility] Comment on above: Performed By: #### I NSULT #### [facility] [address] [place] [address] Dr. Deepika Terrell NEUT # 7.9 103/ul Critically high 1.4-6.5 [facility] Comment on above: Performed By: #### I NSULT #### [facility] [address] [place] [address] Dr. Deepika Terrell Neutrophils/100 WBC (Bld) 71.1 % Normal 43.0-75.0 [facility] Comment on above: Performed By: #### I NSULT #### [facility] [address] [address] [address] Deepika Terrell Platelet mean volume (Bld) [Entitic vol] 10.7 fL Normal 9.5-13.5 [facility] Comment on above: Performed By: #### I NSULT #### [facility] [id number] Deepika Terrell PLT 295 103/ul Normal 150-450 [facility] Comment on above: Performed By: #### I NSULT #### [facility] [address] [address] [address] Deepika Terrell RBC 3.28 106/ul Critically low 4.70-6.10 [facility] Comment on above: Performed By: #### I NSULT #### [facility] [id number] Deepika Terrell WBC 11.1 103/ul Critically high 4.0-11.0 [facility] Comment on above: Performed By: #### I NSULT #### [facility] [id number] Deepika Terrell [address] ABD/PELV W CONon 06-02-19 CT ABD/PELV W CON CT ABD/PELV W [...] YANIV DACOSTA Date: 2022-06-01 22:50 Normal [facility] Covid-19 PCR ([facility])on 05-09 SARS-CoV-2 (COVID-19) RNA DANICA+probe Ql (Unsp spec) Not detected Normal NOT DETECTED [facility] Comment on above: Result Comment: [...] for this test is supported by the Manual Qa Tester of Health and Human Service's declaration that [...] used). Performed By: #### I NSULT #### [facility] [address] [place] [address] Dr. Deepika Terrell ER URINE PROFILEon 3 Bilirubin Ql (U) Negative Normal NEGATIVE [facility] Comment on above: Performed By: #### E RUR #### [facility] [address] [place] [address] Dr. Deepika Terrell Clarity (U) CLEAR Normal CLEAR [facility] Comment on above: Performed By: #### E RUR #### [facility] [address] [place] [address] Dr. Deepika Terrell Color (U) LT. YELLOW Normal YELLOW [facility] Comment on above: Performed By: #### E RUR #### [facility] [address] [place] [address] Dr. Deepika Terrell ERUAHD A micrscopic examina tion will be performed if indicated. Normal [facility] Comment on above: Performed By: #### E RUR #### [facility] [address] [place] [address] Dr. Deepika Terrell Glucose Ql (U) Negative Normal NEGATIVE [facility] Comment on above: Performed By: #### E RUR #### [facility] [address] [place] [address] Dr. Deepika Terrell Hemoglobin Ql (U) Negative Normal NEGATIVE [facility] Comment on above: Performed By: #### E RUR #### [facility] [address] [place] [address] Dr. Deepika Terrell Ketones Ql (U) Negative Normal NEGATIVE [facility] Comment on above: Performed By: #### E RUR #### [facility] [address] [place] [address] Dr. Deepika Terrell LEUKOCYTES Negative Normal NEGATIVE [facility] Comment on above: Performed By: #### E RUR #### [facility] [address] [place] [address] Dr. Deepika Terrell Nitrite Ql (U) Negative Normal NEGATIVE [facility] Comment on above: Performed By: #### E RUR #### [facility] [address] [place] [address] Dr. Deepika Terrell pH (U) 6.0 [pH] Normal 5-9 [facility] Comment on above: Performed By: #### E RUR #### [facility] [address] [place] [address] Dr. Deepika Terrell SPEC GRAVITY 1.010 Normal 1.005-<=1.02 5 [facility] Comment on above: Performed By: #### E RUR #### [facility] [address] [place] [address] Dr. Deepika Terrell UA PROTEIN Negative Normal NEGATIVE/ TRACE [facility] Comment on above: Performed By: #### E RUR #### [facility] [address] [place] [address] Dr. Deepika Terrell UR MICRO IND NOT INDICATED Normal [facility] Comment on above: Performed By: #### E RUR #### [facility] [address] [place] [address] Dr. Deepika Terrell Urobilinogen Qn (U) 0.2 {Jesus'U}/dL Normal 0.2 - 1.0 [facility] Comment on above: Performed By: #### E RUR #### [facility] [address] [place] [address] Dr. Deepika Terrell GLYCOHEMOGLOBIN A1Con 2022 ADA RECOMMENDATION SEE BELOW Normal [facility] Comment on above: Result Comment: ADA RECOMMENDED LIMIT 4.0 - 6.0 ADA THERAPEUTIC TARGET < 7.0 ACTION SUGGESTED > 7.0 Performed By: #### I NSULT #### [facility] [address] [place] [address] Dr. Deepika Terrell Glucose [Mass/Vol] 134 mg/dL Normal [facility] Comment on above: Performed By: #### I NSULT #### [facility] [address] [place] [address] Dr. Deepika Terrell HbA1c (Bld) [Mass fraction] 6.3 % Critically high 4.5-6.2 [facility] Comment on above: Performed By: #### I NSULT #### [facility] [address] [place] [address] Dr. Deepika Terrell POINT OF CARE GLUCOSEon 05-09 Glucose [Mass/Vol] 175 mg/dL Critically high 74-106 [facility] Comment on above: Performed By: #### I NSULT #### [facility] [address] [address] [address] Deepika Terrell Glucose [Mass/Vol] 151 mg/dL Critically high 74-106 [facility] Comment on above: Performed By: #### I NSULT #### [facility] [address] [place] [address] Dr. Deepika Terrell Glucose [Mass/Vol] 95 mg/dL Normal 74-106 [facility] Comment on above: Performed By: #### C BC #### [facility] [address] [place] [address] Dr. Deepika Terrell Glucose [Mass/Vol] 83 mg/dL Normal 74-106 [facility] Comment on above: Performed By: #### I NSULT #### [facility] [address] [place] [address] Dr. Deepika Terrell Glucose [Mass/Vol] 63 mg/dL Critically low 74-106 [facility] Comment on above: Performed By: #### P ERSMR #### [facility] [address] [place] [address] Dr. Deepika Terrell Glucose [Mass/Vol] 48 mg/dL Critically low 74-106 [facility] Comment on above: Result Comment: Resu lt Not Confirmed Performed By: #### B MP #### [facility] [address] [place] [address] Dr. Deepika Terrell Glucose [Mass/Vol] 62 mg/dL Critically low 74-106 [facility] Comment on above: Performed By: #### B MP #### [facility] [address] [place] [address] Dr. Deepika Terrell Glucose [Mass/Vol] 61 mg/dL Critically low 74-106 [facility] Comment on above: Performed By: #### C PEPT #### [facility] [address] [place] [address] Dr. Deepika Terrell PROF CHEM 8 (BAS METB)on Anion gap [Moles/Vol] 11.6 mmol/L Normal [facility] Comment on above: Performed By: #### B MP #### [facility] [address] [address] [address] Deepika Terrell Calcium [Mass/Vol] 8.2 mg/dL Critically low 8.5-10.1 [facility] Comment on above: Performed By: #### B MP #### [facility] [address] [place] [address] Dr. Deepika Terrell Chloride [Moles/Vol] 111 mmol/L Critically high 98-107 [facility] Comment on above: Performed By: #### B MP #### [facility] [address] [place] [address] Dr. Deepika Terrell CO2 [Moles/Vol] 23.5 mmol/L Normal 21.0-32.0 [facility] Comment on above: Performed By: #### B MP #### [facility] [address] [place] [address] Dr. Deepika Terrell Creatinine [Mass/Vol] 1.32 mg/dL Critically high 0.70-1.30 [facility] Comment on above: Performed By: #### B MP #### [facility] [address] [place] [address] Dr. Deepika Terrell EGFR-AF ALBANIAN >60 Normal >=60 [facility] Comment on above: Performed By: #### B MP #### [facility] [address] [place] [address] Dr. Deepika Terrell EGFR-NON AF ALBANIAN 51 mL/min/1.73m2 Critically low >=60 [facility] Comment on above: Performed By: #### B MP #### [facility] 04 [place] [address] Dr. Deepika Terrell Glucose [Mass/Vol] 91 mg/dL Normal 74-106 [facility] Comment on above: Performed By: #### B MP #### [facility] [address] [place] [address] Dr. Deepika Terrell Potassium [Moles/Vol] 4.1 mmol/L Normal 3.5-5.1 [facility] Comment on above: Performed By: #### B MP #### [facility] [address] [place] [address] Dr. Deepika Terrell Sodium [Moles/Vol] 142 mmol/L Normal 136-145 [facility] Comment on above: Performed By: #### B MP #### [facility] [address] [place] [address] Dr. Deepika Terrell Urea nitrogen [Mass/Vol] 29.0 mg/dL Critically high 7.0-18.0 [facility] Comment on above: Performed By: #### B MP #### [facility] [address] [place] [address] Dr. Deepika Terrell Urea nitrogen/Creatinin e [Mass ratio] 22.0 mg/mg Normal [facility] Comment on above: Performed By: #### B MP #### [facility] [address] [place] [address] Dr. Deepika Terrell AMMONIAon 06-01-2022 Ammonia (P) [Moles/Vol] 17 umol/L Normal 11-[address] [facility] Comment on above: Performed By: #### C BC #### [facility] [address] [place] [address] Dr. Deepika Terrell BNPon 06-01-2022 Natriuretic peptide B (Bld) [Mass/Vol] 132.0 pg/mL Normal <=1,800.[address] [facility] Comment on above: Performed By: #### C BC #### [facility] [address] [place] [address] Dr. Deepika Terrell CBC AUTO DIFFon 06-01-2022 BASO # 0.1 103/ul Normal 0.0-0.1 [facility] Comment on above: Performed By: #### C BC #### [facility] [address] [address] [address] Deepika Terrell Basophils/100 WBC (Bld) 0.3 % Normal 0.2-2.0 [facility] Comment on above: Performed By: #### C BC #### [facility] [address] [address] [address] Deepika Terrell EO # 0.1 103/ul Normal 0.0-0.[address] [facility] Comment on above: Performed By: #### C BC #### [facility] [address] [address] [address] Deepika Terrell Eosinophils/100 WBC (Bld) 0.9 % Normal 0.9-7.0 [facility] Comment on above: Performed By: #### C BC #### [facility] [address] [address] [address] Deepika Terrell Erythrocyte distribution width (RBC) [Ratio] 14.7 % Normal 11.0-15.0 [facility] Comment on above: Performed By: #### C BC #### [facility] [address] [address] [address] Deepika Terrell Hematocrit (Bld) [Volume fraction] 33.6 % Critically low 42.0-54.0 [facility] Comment on above: Performed By: #### C BC #### [facility] [address] [address] [address] Deepika Terrell Hemoglobin (Bld) [Mass/Vol] 10.9 g/dL Critically low 14.0-18.0 [facility] Comment on above: Performed By: #### C BC #### [facility] [address] [address] [address] Deepika Terrell IG # 0.07 10e3/ul Critically high 0.00-0.03 [facility] Comment on above: Performed By: #### C BC #### [facility] [address] [address] [address] Deepika Terrell IG % 0.5 % Normal 0.0-0.[address] [facility] Comment on above: Performed By: #### C BC #### [facility] [address] [address] [address] Deepika Terrell LYMPH # 1.5 103/ul Normal 1.2-3.[address] [facility] Comment on above: Performed By: #### C BC #### [facility] [address] [place] [address] Dr. Deepika Terrell Lymphocytes/100 WBC (Bld) 10.3 % Critically low 20.5-60.[address] [facility] Comment on above: Performed By: #### C BC #### [facility] [address] [place] [address] Dr. Deepika Terrell MANUAL DIFF REQ NO Normal [facility] Comment on above: Performed By: #### C BC #### [facility] [address] [place] [address] Dr. Deepika Terrell MCH (RBC) [Entitic mass] 29.9 pg Normal 25.9-34.[address] [facility] Comment on above: Performed By: #### C BC #### [facility] [address] [place] [address] Dr. Deepika Terrell MCHC (RBC) [Mass/Vol] 32.4 g/dL Normal 29.9-35.[address] [facility] Comment on above: Performed By: #### C BC #### [facility] [address] [place] [address] Dr. Deepika Terrell MCV (RBC) [Entitic vol] 92.1 fL Normal 80.0-94.[address] [facility] Comment on above: Performed By: #### C BC #### [facility] [address] [place] [address] Dr. Deepika Terrell MONO # 1.3 103/ul Critically high 0.3-0.8 [facility] Comment on above: Performed By: #### C BC #### [facility] [address] [place] [address] Dr. Deepika Terrell Monocytes/100 WBC (Bld) 8.9 % Normal 1.7-12.[address] [facility] Comment on above: Performed By: #### C BC #### [facility] [address] [address] [address] Deepika Terrell NEUT # 11.8 103/ul Critically high 1.4-6.5 [facility] Comment on above: Performed By: #### C BC #### [facility] [address] [address] [address] Deepika Terrell Neutrophils/100 WBC (Bld) 79.1 % Critically high 43.0-75.0 [facility] Comment on above: Performed By: #### C BC #### [facility] [address] [address] [address] Deepika Terrell Platelet mean volume (Bld) [Entitic vol] 11.4 fL Normal 9.5-13.[address] [facility] Comment on above: Performed By: #### C BC #### [facility] [address] [place] [address] Dr. Deepika Terrell PLT 324 103/ul Normal 150-450 [facility] Comment on above: Performed By: #### C BC #### [facility] [address] [place] [address] Dr. Deepika Terrell RBC 3.65 106/ul Critically low 4.70-6.10 [facility] Comment on above: Performed By: #### C BC #### [facility] [address] [address] [address] Deepika Terrell WBC 14.9 103/ul Critically high 4.0-11.0 [facility] Comment on above: Performed By: #### C BC #### [facility] [address] [place] [address] Dr. Deepika Terrell POINT OF CARE GLUCOSEon 05-09 Glucose [Mass/Vol] 29 mg/dL Critically low 74-106 [facility] Comment on above: Result Comment: Resu lt Not Confirmed Performed By: #### B MP #### [facility] [address] [place] [address] Dr. Deepika Terrell Glucose [Mass/Vol] 28 mg/dL Critically low 74-106 [facility] Comment on above: Result Comment: Will Repeat Test Performed By: #### C PEPT #### [facility] [address] [place] [address] Dr. Deepika Terrell PROF 14(COMP METB)on 023 Albumin [Mass/Vol] 3.3 g/dL Critically low 3.4-5.[address] [facility] Comment on above: Performed By: #### C BC #### [facility] [address] [place] [address] Dr. Deepika Terrell Albumin/Globulin [Mass ratio] 1.0 {ratio} Normal [facility] Comment on above: Performed By: #### C BC #### [facility] [address] [place] [address] Dr. Deepika Terrell ALP [Catalytic activity/Vol] 75 U/L Normal 46-116 [facility] Comment on above: Performed By: #### C BC #### [facility] [address] [place] [address] Dr. Deepika Terrell ALT [Catalytic activity/Vol] 34 U/L Normal 16-63 [facility] Comment on above: Performed By: #### C BC #### [facility] [address] [place] [address] Dr. Deepika Terrell Anion gap [Moles/Vol] 14.0 mmol/L Normal [facility] Comment on above: Performed By: #### C BC #### [facility] [address] [place] [address] Dr. Deepika Terrell AST [Catalytic activity/Vol] 19 U/L Normal 15-37 [facility] Comment on above: Performed By: #### C BC #### [facility] [address] [place] [address] Dr. Deepika Terrell Bilirubin [Mass/Vol] 0.2 mg/dL Normal 0.2-1.0 [facility] Comment on above: Performed By: #### C BC #### [facility] [address] [place] [address] Dr. Deepika Terrell Calcium [Mass/Vol] 8.6 mg/dL Normal 8.5-10.1 [facility] Comment on above: Performed By: #### C BC #### [facility] [address] [address] [address] Deepika Terrell Chloride [Moles/Vol] 109 mmol/L Critically high 98-107 [facility] Comment on above: Performed By: #### C BC #### [facility] [address] [place] [address] Dr. Deepika Terrell CO2 [Moles/Vol] 23.9 mmol/L Normal 21.0-32.0 [facility] Comment on above: Performed By: #### C BC #### [facility] [address] [place] [address] Dr. Deepika Terrell Creatinine [Mass/Vol] 1.59 mg/dL Critically high 0.70-1.30 [facility] Comment on above: Performed By: #### C BC #### [facility] [address] [place] [address] Dr. Deepika Terrell EGFR-AF ALBANIAN 50 mL/min/1.73m2 Critically low >=60 [facility] Comment on above: Performed By: #### C BC #### [facility] [address] [place] [address] Dr. Deepika Terrell EGFR-NON AF ALBANIAN 41 mL/min/1.73m2 Critically low >=60 [facility] Comment on above: Performed By: #### C BC #### [facility] [address] [place] [address] Dr. Deepika Terrell Globulin (S) [Mass/Vol] 3.3 g/dL Normal [facility] Comment on above: Performed By: #### C BC #### [facility] [address] [place] [address] Dr. Deepika Terrell Glucose [Mass/Vol] 26 mg/dL Critically low 74-106 [facility] Comment on above: Performed By: #### C BC #### [facility] [address] [place] [address] Dr. Deepika Terrell Potassium [Moles/Vol] 3.9 mmol/L Normal 3.5-5.1 [facility] Comment on above: Performed By: #### C BC #### [facility] [address] [place] [address] Dr. Deepika Terrell Protein [Mass/Vol] 6.6 g/dL Normal 6.4-8.2 [facility] Comment on above: Performed By: #### C BC #### [facility] [address] [place] [address] Dr. Deepika Terrell Sodium [Moles/Vol] 143 mmol/L Normal 136-145 [facility] Comment on above: Performed By: #### C BC #### [facility] [address] [address] [address] Deepika Terrell Urea nitrogen [Mass/Vol] 34.0 mg/dL Critically high 7.0-18.0 [facility] Comment on above: Performed By: #### C BC #### [facility] [address] [place] [address] Dr. Deepika Terrell Urea nitrogen/Creatinin e [Mass ratio] 21.4 mg/mg Normal [facility] Comment on above: Performed By: #### C BC #### [facility] [address] [place] [address] Dr. Deepika Terrell TROPONIN, HIGH SENSITIVITYon 06-01-2022 HSTROP 13.2 pg/mL Normal 4.0-76.1 [facility] Comment on above: Result Comment: CUT- OFF POINTS HAVE BEEN ESTABLISHED BASED ON THE FOURTH UNIVERSAL DEFINITIONS OF MYOCARDIAL INFARCTION. THE UPPER REFERENCE LIMIT (URL) OF TROPONIN, DEFINED THE 99TH PERCENTILE OF cTnI DISTRIBUTION IN A REFERENCE POPULATION, HAS BEEN CONFIRMED THE DECISION THRESHOLD FOR IN DIAGNOSIS. Performed By: #### B MP #### [facility] [address] [place] [address] Dr. Deepika Terrell GI PANEL (PCR)on 05-30-2022 Adenovirus F 40/41 Not detected Normal NOT DETECTED [facility] Comment on above: Performed By: #### P ERSMR #### [facility] [address] [place] [address] Dr. Deepika Terrell Astrovirus Not detected Normal NOT DETECTED [facility] Comment on above: Performed By: #### P ERSMR #### [facility] [address] [place] [address] Dr. Deepika Terrell C. Diff toxin A/B Not detected Normal NOT DETECTED [facility] Comment on above: Performed By: #### P ERSMR #### [facility] [address] [place] [address] Dr. Deepika Terrell Campylobacter Not detected Normal NOT DETECTED [facility] Comment on above: Performed By: #### P ERSMR #### [facility] [address] [address] [address] Deepika Terrell Cryptosporidium Not detected Normal NOT DETECTED [facility] Comment on above: Performed By: #### P ERSMR #### [facility] [address] [place] [address] Dr. Deepika Terrell Cyclos. Cayetanensis Not detected Normal NOT DETECTED [facility] Comment on above: Performed By: #### P ERSMR #### [facility] [address] [place] [address] Dr. Deepika Terrell E. Coli O157 Not Applicable Normal Not Applicable [facility] Comment on above: Performed By: #### P ERSMR #### [facility] [address] [place] [address] Dr. Deepika Terrell E. histolytica Not detected Normal NOT DETECTED [facility] Comment on above: Performed By: #### P ERSMR #### [facility] [address] [place] [address] Dr. Deepika Terrell EAEC Not detected Normal NOT DETECTED [facility] Comment on above: Performed By: #### P ERSMR #### [facility] [address] [place] [address] Dr. Deepika Terrell EIEC Not detected Normal NOT DETECTED [facility] Comment on above: Performed By: #### P ERSMR #### [facility] [address] [address] [address] Deepika Terrell EPEC Not detected Normal NOT DETECTED [facility] Comment on above: Performed By: #### P ERSMR #### [facility] [address] [place] [address] Dr. Deepika Terrell ETEC Not detected Normal NOT DETECTED [facility] Comment on above: Performed By: #### P ERSMR #### [facility] [address] [address] [address] Deepika Reardon Lamblia Not detected Normal NOT DETECTED [facility] Comment on above: Performed By: #### P ERSMR #### [facility] [address] [address] [address] Deepika WOLFE CONTROLS PASSED Normal [facility] Comment on above: Performed By: #### P ERSMR #### [facility] [address] [address] [address] Deepika RYAN HEADER GI PANEL BACTERIA Normal [facility] Comment on above: Performed By: #### P ERSMR #### [facility] [address] [address] [address] Deepika CACERES ECOLI GI PANEL DIARRHEAGEN IC E.COLI / SHIGELLA Normal [facility] Comment on above: Performed By: #### P ERSMR #### [facility] [address] [address] [address] Deepika CACERES INFO SEE BELOW Normal [facility] Comment on above: Result Comment: EAEC - Enteroaggregative E. Coli EPEC- Enteropathogenic E. Coli ETEC- Enterotoxigenic E. Coli lt/st STEC- Shigella-like toxin-producing E. Coli stx1/stx2 EIEC- Shigella/Enteroinvasive E. Coli Performed By: #### P ERSMR #### [facility] [address] [address] [address] Deepika CACERES PARASITES GI PANEL PARASITES Normal [facility] Comment on above: Performed By: #### P ERSMR #### [facility] [address] [address] [address] Deepika CACERES VIRUS GI PANEL VIRUSES Normal [facility] Comment on above: Performed By: #### P ERSMR #### [facility] [address] [address] [address] Deepika Terrell Norovirus GI/GII Not detected Normal NOT DETECTED [facility] Comment on above: Performed By: #### P ERSMR #### [facility] [address] [place] [address] Dr. Deepika Meredith Shigelloides Not detected Normal NOT DETECTED [facility] Comment on above: Performed By: #### P ERSMR #### [facility] [address] [place] [address] Dr. Deepika Terrell Rotavirus A Not detected Normal NOT DETECTED [facility] Comment on above: Performed By: #### P ERSMR #### [facility] [address] [place] [address] Dr. Deepika Terrell Salmonella Not detected Normal NOT DETECTED [facility] Comment on above: Performed By: #### P ERSMR #### [facility] [address] [place] [address] Dr. Deepika Terrell Sapovirus Not detected Normal NOT DETECTED [facility] Comment on above: Performed By: #### P ERSMR #### [facility] [address] [place] [address] Dr. Deepika Terrell STEC Not detected Normal NOT DETECTED [facility] Comment on above: Performed By: #### P ERSMR #### [facility] [address] [place] [address] Dr. Deepika Terrell Vibrio Not detected Normal NOT DETECTED [facility] Comment on above: Performed By: #### P ERSMR #### [facility] [address] [place] [address] Dr. Deepika Terrell Vibrio Cholera Not detected Normal NOT DETECTED [facility] Comment on above: Performed By: #### P ERSMR #### [facility] [address] [place] [address] Dr. Deepika Terrell Y. Enterocolitica Not detected Normal NOT DETECTED [facility] Comment on above: Performed By: #### P ERSMR #### [facility] [address] [place] [address] Dr. Deepika Terrell PROF CHEM 8 (BAS METB)on Anion gap [Moles/Vol] 13.9 mmol/L Normal [facility] Comment on above: Performed By: #### P ERSMR #### [facility] [address] [address] [address] Deepika Terrell Calcium [Mass/Vol] 8.9 mg/dL Normal 8.5-10.1 [facility] Comment on above: Performed By: #### P ERSMR #### [facility] [address] [address] [address] Deepika Terrell Chloride [Moles/Vol] 104 mmol/L Normal 98-107 [facility] Comment on above: Performed By: #### P ERSMR #### [facility] [address] [address] [address] Deepika Terrell CO2 [Moles/Vol] 26.3 mmol/L Normal 21.0-32.0 [facility] Comment on above: Performed By: #### P ERSMR #### [facility] [address] [address] [address] Deepika Terrell Creatinine [Mass/Vol] 1.70 mg/dL Critically high 0.70-1.30 [facility] Comment on above: Performed By: #### P ERSMR #### [facility] [address] [address] [address] Deepika Terrell EGFR-AF ALBANIAN 47 mL/min/1.73m2 Critically low >=60 [facility] Comment on above: Performed By: #### P ERSMR #### [facility] [address] [address] [address] Deepika Terrell EGFR-NON AF [place]IAN 38 mL/min/1.73m2 Critically low >=60 [facility] Comment on above: Performed By: #### P ERSMR #### [facility] [address] [address] [address] Deepika Terrell Glucose [Mass/Vol] 62 mg/dL Critically low 74-106 [facility] Comment on above: Performed By: #### P ERSMR #### [facility] [address] [address] [address] Deepika Terrell Potassium [Moles/Vol] 4.2 mmol/L Normal 3.5-5.1 [facility] Comment on above: Performed By: #### P ERSMR #### [facility] [address] [place], [place] [address] Dr. Deepika Terrell Sodium [Moles/Vol] 140 mmol/L Normal 136-145 [facility] Comment on above: Performed By: #### P ERSMR #### [facility] [address] [address] [address] Deepika Terrell Urea nitrogen [Mass/Vol] 34.0 mg/dL Critically high 7.0-18.0 [facility] Comment on above: Performed By: #### P ERSMR #### [facility] [address] [place], [place] [address] Dr. Deepika Terrell Urea nitrogen/Creatinin e [Mass ratio] 20.0 mg/mg Normal [facility] Comment on above: Performed By: #### P ERSMR #### [facility] [address] [address] [address] Deepika Terrell ECHOCARDIO M/2D COMPLETEon 1 06-02-2021 ECHOCARDIO M/2D COMPLETE Patient: MASON NATARAJAN Exam Date: 04/01/2022 : 1935 Gender:M Ordering : ARNEL BAEZA Admission #: [id number] Family : Order #: [id number] CLICK HERE TO VIEW EXAM ECHOCARDIOGRAM REPORT [...] M.D. on 04/09/2022 at 08:52 Normal [address] [facility] CBC AUTO DIFFon 02-05-2022 BASO # 0.1 103/ul Normal 0.0-0.1 [facility] Comment on above: Performed By: #### C BC #### [facility] [address] [place] [address] Dr. Deepika Terrell Basophils/100 WBC (Bld) 0.5 % Normal 0.2-2.0 [facility] Comment on above: Performed By: #### C BC #### [facility] [address] [place] [address] Dr. Deepika Terrell EO # 0.3 103/ul Normal 0.0-0.7 [facility] Comment on above: Performed By: #### C BC #### [facility] [address] [place] [address] Dr. Deepika Terrell Eosinophils/100 WBC (Bld) 3.3 % Normal 0.9-7.0 [facility] Comment on above: Performed By: #### C BC #### [facility] [address] [place] [address] Dr. Deepika Terrell Erythrocyte distribution width (RBC) [Ratio] 14.0 % Normal 11.0-15.0 [facility] Comment on above: Performed By: #### C BC #### [facility] [address] [place] [address] Dr. Deepika Terrell Hematocrit (Bld) [Volume fraction] 41.2 % Critically low 42.0-54.0 [facility] Comment on above: Performed By: #### C BC #### [facility] [address] [place] [address] Dr. Deepika Terrell Hemoglobin (Bld) [Mass/Vol] 13.4 g/dL Critically low 14.0-18.0 [facility] Comment on above: Performed By: #### C BC #### [facility] [address] [place] [address] Dr. Deepika Terrell IG # 0.04 10e3/ul Critically high 0.00-0.03 [facility] Comment on above: Performed By: #### C BC #### [facility] [address] [place] [address] Dr. Deepika Terrell IG % 0.4 % Normal 0.0-0.5 [facility] Comment on above: Performed By: #### C BC #### [facility] [address] [place] [address] Dr. Deepika Terrell LYMPH # 3.4 103/ul Normal 1.2-3.8 [facility] Comment on above: Performed By: #### C BC #### [facility] [address] [place] [address] Dr. Deepika Terrell Lymphocytes/100 WBC (Bld) 36.2 % Normal 20.5-60.0 [facility] Comment on above: Performed By: #### C BC #### [facility] [address] [place] [address] Dr. Deepika Terrell MANUAL DIFF REQ NO Normal [facility] Comment on above: Performed By: #### C BC #### [facility] [address] [place] [address] Dr. Deepika Terrell MCH (RBC) [Entitic mass] 30.9 pg Normal 25.9-34.0 [facility] Comment on above: Performed By: #### C BC #### [facility] [address] [place] [address] Dr. Deepika Terrell MCHC (RBC) [Mass/Vol] 32.5 g/dL Normal 29.9-35.2 [facility] Comment on above: Performed By: #### C BC #### [facility] [address] [place] [address] Dr. Deepika Terrell MCV (RBC) [Entitic vol] 94.9 fL Critically high 80.0-94.0 [facility] Comment on above: Performed By: #### C BC #### [facility] [address] [place] [address] Dr. Deepika Terrell MONO # 0.9 103/ul Critically high 0.3-0.8 [facility] Comment on above: Performed By: #### C BC #### [facility] [address] [address] [address] Deepika Terrell Monocytes/100 WBC (Bld) 9.9 % Normal 1.7-12.0 [facility] Comment on above: Performed By: #### C BC #### [facility] [address] [place] [address] Dr. Deepika Terrell NEUT # 4.7 103/ul Normal 1.4-6.5 [facility] Comment on above: Performed By: #### C BC #### [facility] [address] [place] [address] Dr. Deepika Terrell Neutrophils/100 WBC (Bld) 49.7 % Normal 43.0-75.0 [facility] Comment on above: Performed By: #### C BC #### [facility] [address] [place] [address] Dr. Deepika Terrell Platelet mean volume (Bld) [Entitic vol] 10.1 fL Normal 9.5-13.5 [facility] Comment on above: Performed By: #### C BC #### [facility] [address] [place] [address] Dr. Deepika Terrell PLT 290 103/ul Normal 150-[address] [facility] Comment on above: Performed By: #### C BC #### [facility] [address] [place] [address] Dr. Deepika Terrell RBC 4.34 106/ul Critically low 4.70-6.10 [facility] Comment on above: Performed By: #### C BC #### [facility] [address] [place] [address] Dr. Deepika Terrell WBC 9.4 103/ul Normal 4.0-11.[address] [facility] Comment on above: Performed By: #### C BC #### [facility] [address] [address] [address] Deepika Terrell FREE T3on 02-05-2022 FREE T3 1.83 pg/mlL Critically low 2.18-3.98 [facility] Comment on above: Performed By: #### C PEPT #### [facility] [address] [address] [address] Deepika Terrell GLYCOHEMOGLOBIN A1Con 2021 ADA RECOMMENDATION SEE BELOW Normal [facility] Comment on above: Result Comment: ADA RECOMMENDED LIMIT 4.0 - 6.0 ADA THERAPEUTIC TARGET < 7.0 ACTION SUGGESTED > 7.0 Performed By: #### A 1C #### [facility] [address] [place] [address] Dr. Deepika Terrell Glucose [Mass/Vol] 114 mg/dL Normal [facility] Comment on above: Performed By: #### A 1C #### [facility] [address] [place] [address] Dr. Deepika Terrell HbA1c (Bld) [Mass fraction] 5.6 % Normal 4.5-6.2 [facility] Comment on above: Performed By: #### A 1C #### [facility] [address] [place] [address] Dr. Deepika Terrell LIPID PROFILEon 02-05-2022 CHOL-HDL RATIO NORM SEE BELOW Normal [facility] Comment on above: Result Comment: 3.3 - 4.4 LOW RISK 4.4 - 7.1 AVERAGE RISK 7.1 - 11.0 MODERATE RISK >11.0 HIGH RISK Performed By: #### C PEPT #### [facility] [address] [place] [address] Dr. Deepika Terrell Cholesterol [Mass/Vol] 187 mg/dL Normal <=200 [facility] Comment on above: Performed By: #### C PEPT #### [facility] [address] [place] [address] Dr. Deepika Terrell Cholesterol in HDL [Mass/Vol] 49 mg/dL Normal 40-60 [facility] Comment on above: Performed By: #### C PEPT #### [facility] [address] [address] [address] Deepika Terrell Cholesterol in LDL [Mass/Vol] 123.8 mg/dL Normal [facility] Comment on above: Performed By: #### C PEPT #### [facility] [address] [place] [address] Dr. Deepika Terrell Cholesterol.total/ Cholesterol in HDL [Mass ratio] 3.8 {ratio} Normal [facility] Comment on above: Performed By: #### C PEPT #### [facility] [address] [place] [address] Dr. Deepika Terrell HDL NORMAL > or = 60 mg/dl - LO W CARDIOVASCULAR RISK <40 mg/dl - HIGH CARDIOVASCULAR RISK Normal [facility] Comment on above: Performed By: #### C PEPT #### [facility] [address] [place] [address] Dr. Deepika Terrell LDL CALC NORMAL SEE BELOW Normal [facility] Comment on above: Result Comment: <100 mg/dl OPTIMAL 100 - 129 mg/dl NEAR OR ABOVE OPTIMAL 130 - 159 mg/dl BORDERLINE HIGH 160 - 189 mg/dl HIGH >190 mg/dl VERY HIGH Performed By: #### C PEPT #### [facility] [address] [place] [address] Dr. Deepika Terrell Triglyceride [Mass/Vol] 71 mg/dL Normal <=150 [facility] Comment on above: Performed By: #### C PEPT #### [facility] [address] [place] [address] Dr. Deepika Terrell VLDL CALC 14.2 mg/dL Normal [facility] Comment on above: Performed By: #### C PEPT #### [facility] [address] [place] [address] Dr. Deepika Terrell PROF 14(COMP METB)on 022 Albumin [Mass/Vol] 4.0 g/dL Normal 3.4-5.0 [facility] Comment on above: Performed By: #### C PEPT #### [facility] [address] [place] [address] Dr. Deepika Terrell Albumin/Globulin [Mass ratio] 1.2 {ratio} Normal [facility] Comment on above: Performed By: #### C PEPT #### [facility] [address] [place] [address] Dr. Deepika Terrell ALP [Catalytic activity/Vol] 61 U/L Normal 46-116 [facility] Comment on above: Performed By: #### C PEPT #### [facility] [address] [place] [address] Dr. Deepika Terrell ALT [Catalytic activity/Vol] 38 U/L Normal 16-63 [facility] Comment on above: Performed By: #### C PEPT #### [facility] [address] [place] [address] Dr. Deepika Terrell Anion gap [Moles/Vol] 8.1 mmol/L Normal [facility] Comment on above: Performed By: #### C PEPT #### [facility] [address] [place] [address] Dr. Deepika Terrell AST [Catalytic activity/Vol] 19 U/L Normal 15-37 [facility] Comment on above: Performed By: #### C PEPT #### [facility] [address] [place] [address] Dr. Deepika Terrell Bilirubin [Mass/Vol] 0.4 mg/dL Normal 0.2-1.0 [facility] Comment on above: Performed By: #### C PEPT #### [facility] [address] [place] [address] Dr. Deepika Terrell Calcium [Mass/Vol] 9.4 mg/dL Normal 8.5-10.1 [facility] Comment on above: Performed By: #### C PEPT #### [facility] [address] [place] [address] Dr. Deepika Terrell Chloride [Moles/Vol] 104 mmol/L Normal 98-107 [facility] Comment on above: Performed By: #### C PEPT #### [facility] [address] [place] [address] Dr. Deepika Terrell CO2 [Moles/Vol] 32.6 mmol/L Critically high 21.0-32.0 [facility] Comment on above: Performed By: #### C PEPT #### [facility] [address] [address] [address] Deepika Terrell Creatinine [Mass/Vol] 1.63 mg/dL Critically high 0.70-1.30 [facility] Comment on above: Performed By: #### C PEPT #### [facility] [address] [address] [address] Deepika Terrell EGFR-AF ALBANIAN 49 mL/min/1.73m2 Critically low >=60 [facility] Comment on above: Performed By: #### C PEPT #### [facility] [address] [address] [address] Deepika Terrell EGFR-NON AF ALBANIAN 40 mL/min/1.73m2 Critically low >=60 [facility] Comment on above: Performed By: #### C PEPT #### [facility] [address] [address] [address] Deepika Terrell Globulin (S) [Mass/Vol] 3.3 g/dL Normal [facility] Comment on above: Performed By: #### C PEPT #### [facility] [address] [address] [address] Deepika Terrell Glucose [Mass/Vol] 127 mg/dL Critically high 74-106 [facility] Comment on above: Performed By: #### C PEPT #### [facility] [address] [address] [address] Deepika Terrell Potassium [Moles/Vol] 4.7 mmol/L Normal 3.5-5.1 [facility] Comment on above: Performed By: #### C PEPT #### [facility] [address] [address] [address] Deepika Terrell Protein [Mass/Vol] 7.3 g/dL Normal 6.4-8.2 [facility] Comment on above: Performed By: #### C PEPT #### [facility] [address] [address] [address] Deepika Terrell Sodium [Moles/Vol] 140 mmol/L Normal 136-145 [facility] Comment on above: Performed By: #### C PEPT #### [facility] [address] [address] [address] Deepika Terrell Urea nitrogen [Mass/Vol] 37.0 mg/dL Critically high 7.0-18.[address] [facility] Comment on above: Performed By: #### C PEPT #### [facility] [address] [place], [place] [address] Dr. Deepika Terrell Urea nitrogen/Creatinin e [Mass ratio] 22.7 mg/mg Normal [facility] Comment on above: Performed By: #### C PEPT #### [facility] [address] [address] [address] Deepika Terrell T4on 02-05-2022 T4 [Mass/Vol] 8.40 ug/dL Normal 4.50-12.10 [facility] Comment on above: Performed By: #### C PEPT #### [facility] [address] [place] [address] Dr. Deepika Terrell TSHon 02-05-2022 TSH 1.762 uIU/mL Normal 0.358-3.740 [facility] Comment on above: Performed By: #### C PEPT #### [facility] [address] [place] [address] [address] Deepika Terrell US [place] DOP LEG [...] by: GEOVANY ESPINAL Date: 2021-12-26 13:02 Normal [address] [facility] PROF CHEM 8 (BAS METB)on Anion gap [Moles/Vol] 15.1 mmol/L Normal [facility] Comment on above: Performed By: #### B MP #### [facility] [address] [place] [address] Dr. Deepika Terrell Calcium [Mass/Vol] 9.2 mg/dL Normal 8.5-10.1 [facility] Comment on above: Performed By: #### B MP #### [facility] [address] [address] [address] Deepika Terrell Chloride [Moles/Vol] 102 mmol/L Normal 98-107 [facility] Comment on above: Performed By: #### B MP #### [facility] [address] [address] [address] Deepika Terrell CO2 [Moles/Vol] 25.8 mmol/L Normal 21.0-32.0 [facility] Comment on above: Performed By: #### B MP #### [facility] [address] [address] [address] Deepika Terrell Creatinine [Mass/Vol] 1.70 mg/dL Critically high 0.70-1.30 [facility] Comment on above: Performed By: #### B MP #### [facility] [address] [address] [address] Deepika Terrell EGFR-AF ALBANIAN 47 mL/min/1.73m2 Critically low >=60 [facility] Comment on above: Performed By: #### B MP #### [facility] [address] [address] [address] Deepika Terrell EGFR-NON AF [place]IAN 38 mL/min/1.73m2 Critically low >=[address] [facility] Comment on above: Performed By: #### B MP #### [facility] [address] [address] [address] Deepika Terrell Glucose [Mass/Vol] 75 mg/dL Normal 74-106 [facility] Comment on above: Performed By: #### B MP #### [facility] [address] [address] [address] Deepika Terrell Potassium [Moles/Vol] 4.9 mmol/L Normal 3.5-5.1 [facility] Comment on above: Performed By: #### B MP #### [facility] [address] [address] [address] Deepika Terrell Sodium [Moles/Vol] 138 mmol/L Normal 136-145 [facility] Comment on above: Performed By: #### B MP #### [facility] [address] [place] [address] Dr. Deepika Terrell Urea nitrogen [Mass/Vol] 45.0 mg/dL Critically high 7.0-18.0 [facility] Comment on above: Performed By: #### B MP #### [facility] [address] [place] [address] Dr. Deepika Terrell Urea nitrogen/Creatinin e [Mass ratio] 26.5 mg/mg Normal [facility] Comment on above: Performed By: #### B MP #### [facility] [address] [place] [address] Dr. Deepika Terrell PROF CHEM 8 (BAS METB)on Anion gap [Moles/Vol] 14.2 mmol/L Normal [facility] Comment on above: Performed By: #### B MP #### [facility] [address] [place] [address] Dr. Deepika Terrell Calcium [Mass/Vol] 9.4 mg/dL Normal 8.5-10.1 [facility] Comment on above: Performed By: #### B MP #### [facility] [address] [place] [address] Dr. Deepika Terrell Chloride [Moles/Vol] 106 mmol/L Normal 98-107 [facility] Comment on above: Performed By: #### B MP #### [facility] [address] [place] [address] Dr. Deepika Terrell CO2 [Moles/Vol] 25.1 mmol/L Normal 21.0-32.0 [facility] Comment on above: Performed By: #### B MP #### [facility] [address] [place] [address] Dr. Deepika Terrell Creatinine [Mass/Vol] 1.72 mg/dL Critically high 0.70-1.30 [facility] Comment on above: Performed By: #### B MP #### [facility] [address] [place] [address] Dr. Deepika Terrell EGFR-AF ALBANIAN 46 mL/min/1.73m2 Critically low >=60 [facility] Comment on above: Performed By: #### B MP #### [facility] [address] [address] [address] Deepika Terrell EGFR-NON AF [place]IAN 38 mL/min/1.73m2 Critically low >=60 [facility] Comment on above: Performed By: #### B MP #### [facility] [address] [address] [address] Deepika Terrell Glucose [Mass/Vol] 51 mg/dL Critically low 74-106 [facility] Comment on above: Performed By: #### B MP #### [facility] [address] [address] [address] Deepika Terrell Potassium [Moles/Vol] 6.2 mmol/L Critically high 3.5-5.1 [facility] Comment on above: Performed By: #### B MP #### [facility] [address] [address] [address] Deepika Terrell Sodium [Moles/Vol] 138 mmol/L Normal 136-145 [facility] Comment on above: Performed By: #### B MP #### [facility] [address] [address] [address] Deepika Terrell Urea nitrogen [Mass/Vol] 42.0 mg/dL Critically high 7.0-18.0 [facility] Comment on above: Performed By: #### B MP #### [facility] [id number] Deepika Terrell Urea nitrogen/Creatinin e [Mass ratio] 24.4 mg/mg Normal [facility] Comment on above: Performed By: #### B MP #### [facility] [id number] Deepika Terrell MRI LSPINE WO CONon [...] by: KURT DON Date: 2021-09-14 14:24 Normal [facility] XR LSPINE MIN 4 VIEWSon 06-0 XR [...] KURT DON Date: 2021-09-10 20:46 [address] [facility] GLYCOHEMOGLOBIN A1Con 2021 ADA RECOMMENDATION SEE BELOW Normal [facility] Comment on above: Result Comment: ADA RECOMMENDED LIMIT 4.0 - 6.0 ADA THERAPEUTIC TARGET < 7.0 ACTION SUGGESTED > 7.0 Performed By: #### C PEPT #### [facility] [address] [place] [address] Dr. Deepika Terrell Glucose [Mass/Vol] 131 mg/dL Normal [facility] Comment on above: Performed By: #### C PEPT #### [facility] [address] [address] [address] Deepika Terrell HbA1c (Bld) [Mass fraction] 6.2 % Normal 4.5-6.2 [facility] Comment on above: Performed By: #### C PEPT #### [facility] [address] [address] [address] Deepika Terrell Blood Urea Nitrogenon 2020 Urea nitrogen [Mass/Vol] 23 mg/dL Normal - [facility] Comment on above: Performed By: #### B AIDA CREAT #### [address] abdomen pelvis w conon CT abdomen pelvis w con [facility] Main [place] [address] [place] [address] CT Scan Report Signed Patient: Mason Natarajan MR#: [id number] 47 : 1935 Acct:[id number] Age/Sex: 85 / M ADM Date: 10/26/20 Loc: Room: Type: [facility] Attending Dr: Srinivasan Beaulieu [...] Eugene Cummings M.D.10/26/2020 4:54 PM Dictation Location: [place] [address] Transcribed By: [facility] 10/26/20 8389 Dictated By: Eugene Cummings II, MD 10/26/20 3864 Signed By: 10/26/20 1657 [place] Creatinineon 10-26-2020 Creatinine [Mass/Vol] 1.44 mg/dL High 0.64-1.27 [facility] Comment on above: Performed By: #### B AIDA, CREAT #### [facility] [address] Creatinine Clr Calc Pharmacy 39.48 [place] Comment on above: Result Comment: PERF ORMED BY: [address] [place] [address] PATHOLOGIST [employer] ANTHONY WEAVER M.D. Performed By: #### B UN, CREAT #### [facility] [address] Estimated GFR ( Zahida 56 [place] Comment on above: Result Comment: GFR estimated reference range: According to KDOQI guidelines, <60 ml/min/1.73m2 is sufficient to diagnose a patient with chronic kidney disease. Performed By: #### B UN, CREAT #### [facility] [address] Estimated GFR (Non- Am 47 [place] Comment on above: Performed By: #### B UN, CREAT #### [facility] [address] Glucose Poct Glucometerson 0 10-26-2020 Glucose [Mass/Vol] 100 mg/dL Normal [facility] Comment on above: Result Comment: [facility] Glucose Reference Range is dependent on time and content of last meal. Glucose of more than 200 mg/dL in a nonstressed, ambulatory subject supports the diagnosis of Diabetes Mellitus. PERFORMED BY: [place] [address] PATHOLOGIST [employer] ANTHONY WEAVER M.D. Performed By: #### G LULS #### Point of Care testing , Junior 10-26-2020 L ------- Specimen: [id number] Received: 10/26/20 Status: SOLEDAD Rosemary Num: [id number] Spec Type: Surgical Subm Dr: Srinivasan Beaulieu MD Tissues: A Colon Biopsy (LEFT COLON BX) Procedures: HE Stain/2, Gross/Micro L4 Patient Age/Sex Location Account Attending Physician Mason Natarajan 85/Raissa [id number] Srinivasan Beaulieu MD SPEC NUM: [id number] RECD: 10/26/20-1209 STATUS: SOLEDAD RILEY NUM: [id number] AALIYAH: 10/26/20- SUBM DR: Srinivasan Beaulieu MD ENTERED: 10/26/20-1256 [facility] DR: MICHELLE TYPE: Surgical DEPT: S ENTERED BY: [id number] RECV BY: [id number] ORDERED: HE Stain/2, Gross/Micro L4 ORDERED: HE Stain/2, Gross/Micro L4 Pathological Diagnosis Left colon, biopsy: - Microscopic colitis, most consistent with collagenous colitis Clinical Information Diarrhea Gross Description Received in formalin labeled with the patient's name, number and left colon biopsies rule out microscopic colitis are 2 dey tissue fragments, 0.4 cm and 0.5 cm. Entirely submitted in one cassette labeled A1. (JOSH/ALEJANDRO) Microscopic Description Two glass slides with H E stained material have been examined. The microscopic findings support the above pathologic diagnosis. 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 [facility] Surgical Pathologyon 017 Surgical Pathology (NOTE)[id number] Y LABORATORIESCONSULTING PATHOLOGISTS CORPORATIONANATOMIC [id number] [place], [place] [id number] Fax: SURGICAL PATHOLOGY CONSULTATIONPatient Name: Amy NATARAJAN Rec: [id number] Number: [id number]: 01/15/2017Received: 01/15/2017Reported: 01/16/2017 08:36-- Diagnosis --INTRAOCULAR LENS: GROSS ONLY.Kan Allred M.D.Electronically Signed Out tb04/16/11Clinical InformationPre-op Diagnosis: DISLOCATED IOL LEFT EYE Operative Findings: IOL GROSS ONLYOperation Performed: VITRECTOMY 25 GAUGE LENSECTOMY, KENALOGINJECTIONSource of Specimen1: IOL - GROSS ONLYGross Description MASON NATARAJAN IOL GROSS ONLY 0.6 cm long x < 0.1 cm in diameterclear translucent lens with two tags. Gross only. Normal [facility] Vital Signs Date Time Vital Sign Value Performing Clinician Facility 11-13-2023 09:33-0400 Diastolic blood pressure 82 mm[Hg] Linda Montelongo MD Work Phone: [facility] 11-13-2023 09:33-0400 Heart rate 64 /min Linda Montelongo MD Work Phone: [facility] 11-13-2023 09:33-0400 Systolic blood pressure 156 mm[Hg] Linda Montelongo MD Work Phone: [facility] 11-13-2023 09:18-0400 Body height 172.7 cm Linda Montelongo MD Work Phone: [facility] 11-13-2023 09:18-0400 Body mass index (BMI) [Ratio] 27.67 kg/m2 Linda Montelongo MD Work Phone: [facility] 11-13-2023 09:18-0400 Body weight 82.56 kg Linda Montelongo MD Work Phone: [facility] 11-13-2023 09:18-0400 SaO2% (BldA) [Mass fraction] 94 % Linda Montelongo MD Work Phone: [facility] 11-26-2022 09:45-0400 Body height 172.72 cm Chevy Robins Other [employer] Other 11-26-2022 09:45-0400 Body mass index (BMI) [Ratio] 24.63 kg/m2 Chevy Straussy Other [employer] Other 11-26-2022 09:45-0400 Body weight 73.48 kg Chevy Straussy Other [employer] Other 11-26-2022 09:45-0400 Diastolic blood pressure 61 mm[Hg] Chevy Ditty Other [employer] Other 11-26-2022 09:45-0400 Systolic blood pressure 135 mm[Hg] Chevy Ditty Other [employer] Other 12-27-2021 14:00-0400 Body height 172.72 cm Chevy Straussy Other [employer] Other 12-27-2021 14:00-0400 Body mass index (BMI) [Ratio] 28.43 kg/m2 Chevy Straussy Other [employer] Other 12-27-2021 14:00-0400 Body weight 84.82 kg Chevy Straussy Other [employer] Other 12-27-2021 14:00-0400 Diastolic blood pressure 75 mm[Hg] Chevy Robins Other [facility] [employer] Other 12-27-2021 14:00-0400 Systolic blood pressure 171 mm[Hg] Chevy Straussy Other [facility] [employer] Other 11-27-2021 09:51-0400 Diastolic blood pressure 71 mm[Hg] Darien COOK [facility] [place] 11-27-2021 09:51-0400 Mean blood pressure 97 mm[Hg] Darien COOK [facility] [place] 11-27-2021 09:51-0400 Respiratory rate 49 /min Darien REYNOLDS [facility] [place] 11-27-2021 09:51-0400 Systolic blood pressure 150 mm[Hg] Darein COOK [facility] [place] 11-27-2021 09:39-0400 Blood Pressure Location Darien REYNOLDS [facility] [place] 11-27-2021 09:39-0400 Diastolic blood pressure 67 mm[Hg] Darien COOK [facility] [place] 11-27-2021 09:39-0400 Heart rate 45 /min Darien COOK [facility] [place] 11-27-2021 09:39-0400 Systolic blood pressure 168 mm[Hg] Darien COOK [facility] [place] 12-27-2020 14:00-0400 Body height 172.72 cm Chevy Conniereynaldo Other [employer] Other 12-27-2020 14:00-0400 Body mass index (BMI) [Ratio] 28.13 kg/m2 Chevy Robins Other [employer] Other 12-27-2020 14:00-0400 Body weight 83.92 kg Chevy Direynaldo Other [employer] Other Encounters Encounter Date Encounter Type Care Provider Facility Start: 04-30-2024 End: 04-30-2024 ambulatory [facility] Start: 01-05-2024 End: 01-05-2024 ambulatory [facility] Start: 11-13-2023 End: 11-13-2023 Office outpatient new 45 minutes Linda Montelongo MD Work Phone: [facility] Comment on above: Bilateral carotid ar linnea stenosis without cerebral infarction (Primary Dx); Occlusion and stenosis of unspecified carotid artery Start: 11-11-2023 ambulatory Darien REYNOLDS Facility :[facility] Start: 07-07-2023 End: 07-07-2023 ambulatory [facility] Start: 06-16-2023 End: 06-17-2023 ambulatory Darien REYNOLDS Facility:[facility] Start: 06-16-2023 End: 06-16-2023 Patient encounter procedure Darien REYNOLDS [facility] [place] Start: 11-26-2022 End: 11-26-2022 ambulatory Chevy Robins Other [employer] Other Start: 11-26-2022 Patient encounter procedure Chevy Robins [facility] Start: 08-13-2022 End: 08-13-[address] ERIN BERG . Facility:[facility] Start: 08-12-2022 ambulatory Alli Graham LONNY Facility : [place] Start: 08-09-2022 End: 08-10-[address] ERIN BERG . Facility:[facility] Start: 08-08-2022 End: 08-09-[address] ERIN BERG . Facility:[facility] Start: 08-07-2022 End: 08-08-[address] FAITH LISTED REQUEST Facility:[facility] Start: 07-19-2022 End: 07-20-[address] ERIN BERG . Facility:[facility] Start: 07-17-2022 End: 07-18-[address] ERIN BERG . Facility:[facility] Start: 06-02-2022 End: 06-02-[address] ERIN BERG . Facility:[facility] Start: 05-30-2022 End: 05-30-[address] ERIN BERG . Facility:[facility] Start: 04-05-2022 End: 04-06-2022 ambulatory ARNEL BAEZA Facility:[facility] Start: 04-01-2022 End: 04-02-2022 ambulatory ARNEL BAEZA Facility:[facility] Start: 02-05-2022 End: 02-06-[address] ERIN BERG . Facility:[facility] Start: 12-27-2021 End: 12-27-2021 ambulatory Chevy Robins Other [employer] Other Start: 12-27-2021 Patient encounter procedure Chevy Robins [facility] Start: 12-26-2021 End: 12-27-[address] ERIN BERG . Facility:[facility] Start: 11-27-2021 End: 11-27-2021 Patient encounter procedure Darien REYNOLDS [facility] Start: 10-18-2021 End: 10-26-[address] DOCTOR POON Facility:[facility] Start: 09-21-2021 End: 09-22-2021 ambulatory MELYSSA JOYA Facility:[facility] Start: 09-18-2021 End: 09-19-2021 ambulatory MELYSSA JOYA Facility:[facility] Start: 09-14-2021 End: 09-15-[address] ERIN BERG . Facility:[facility] Start: 09-10-2021 End: 09-11-[address] ERIN BERG . Facility:[facility] Start: 08-21-2021 End: 08-22-2021 ambulatory NONE LISTED REQUEST Facility:[facility] Start: 12-27-2020 Patient encounter procedure Chevy Robins [facility] Start: 01-21-2017 End: 01-22-2017 Ambulatory DEFAULT PHYSICIAN Facility:[facility] Start: 01-17-2017 End: 01-18-2017 Ambulatory DEFAULT PHYSICIAN Facility:[facility] Start: 01-15-2017 End: 01-15-2017 Ambulatory CHET NESBITT [facility] Procedures Date Procedure Procedure Detail Performing Clinician Start: 07-07-2023 Follow-up visit Follow-up ARNEL BAEZA Start: 02-05-[address] CHRIS BERG . Comment on above: Performed By: #### C PEPT #### [facility] [address] [place] [address] Dr. Deepika Terrell Start: 12-04-2020 Transurethral water vapor ablation of prostate Darien REYNOLDS Start: 10-12-2020 Cystoscopy Darien DUARTE Start: 01-15-2017 SURGICAL PATHOLOGY [facility] MAGDIEL LAZ Start: 01-15-2017 POC GLUCOSE FINGERSTICK CHETJONO NESBITT Start: 01-15-2017 DISCHARGE PATIENT DYLAN NESBITT Start: 01-15-2017 SURGICAL PATHOLOGY [facility] MAGDIEL NESBITT Start: 01-15-2017 ASSESS CHETJONO Rose Start: 01-15-2017 BEDREST CHET Rose Start: [...] C ALC. ANION GAP CHET NESBITT Appendectomy [facility] Cataract (disorder) [facility] Cataract (morphologi c abnormality) [facility] Colonoscopy [facility] Hernia of abdominal cavity (disorder) [facility] Plan of Treatment Date Care Activity Detail Author Start: 11-12-2024 End: 11-12-2024 US Carotid arteries - bilateral Vas carotid duplex bilateral Vascular Ultrasound Routine Occlusion and stenosis of unspecified carotid artery Bilateral carotid artery stenosis without cerebral infarction Expected: 11/12/2024 (Approximate), Expires: 11/12/2024 [email or web address] Phone: Comment on above: Expected: 11/12/2024 (Approximate), Expires: 11/12/2024 Start: 12-07-2023 Influenza vaccination Influenza Vacc ine [facility] Start: 05-30-2023 COVID-19 Vaccine ( season) COVID-19 Vaccine ( season) [facility] Start: 2000 Fall Risk Screening Fall [facility] Screen ing [facility] Start: 1954 DTaP,Tdap and Td Vaccines (1 - Tdap) DTaP,Tdap and Td Vaccines (1 - Tdap) [facility] Start: 1953 Adult BMI Follow Up Plan Adult BMI Follow Up Plan [facility] Start: 1953 Adult BMI Screening Adult BMI Screen ing [facility] Start: 1947 Depression Screening Depression Scre ening [facility] Start: 1947 Tobacco Screening Tobacco Screening [facility] Start: 1935 Medicare Annual Wellness Visit Medicare Annual Wellness Visit [facility] [place] Immunizations Immunization Date Immunization Notes Care Provider Deng anguiano 05-02-2023 zoster vaccine recombinant [facility] 02-24-2023 zoster vaccine recombinant [facility] 01-27-2023 influenza virus vaccine, unspecified formulation [facility] 06-02-2022 influenza virus vaccine, unspecified formulation [facility] 06-02-2022 pneumococcal conjuga te vaccine, 13 valent [facility] 01-21-2022 influenza virus vaccine, unspecified formulation [facility] 09-27-2021 SARS-CoV-2 (COVID-19 ) mRNA-1273 vaccine [facility] 04-24-2021 SARS-CoV-2 (COVID-19 ) mRNA BNT-162b2 vax [facility] 01-25-2021 influenza virus vaccine, unspecified formulation [facility] 06-06-2020 SARS-CoV-2 (COVID-19 ) mRNA-1273 vaccine [facility] 05-09-2020 SARS-CoV-2 (COVID-19 ) mRNA-1273 vaccine Darien deltaDNA [facility] 04-11-2020 SARS-CoV-2 (COVID-19 ) mRNA-1273 vaccine Darien deltaDNA [facility] 01-14-2020 influenza virus vaccine, unspecified formulation DarienChelaile [facility] 01-06-2020 influenza virus vaccine, unspecified formulation [facility] 01-28-2018 influenza virus vaccine, unspecified formulation [facility] 02-05-2017 pneumococcal conjuga te vaccine, 13 valent Darien deltaDNA [facility] 01-27-2017 influenza virus vaccine, unspecified formulation [facility] 01-13-2017 influenza virus vaccine, unspecified formulation [facility] 01-06-2017 influenza virus vaccine, unspecified formulation [facility] 01-03-2016 influenza virus vaccine, unspecified formulation [facility] 01-06-2015 influenza virus vaccine, unspecified formulation [facility] 02-03-2014 influenza virus vaccine, unspecified formulation [facility] 01-25-2009 influenza, whole Darien Martins [facility] Payers Date Payer Category Payer Unknown [id number] 2017 Unknown 2017 Medicare [id number] 2000 Medicare MEDICARE MEDICAR E PART A & B [id number] 2000-Present [phone] [address] [place] [address] [id number] 1959 Medicare [id number] 1959 Self-pay 1959 Unknown [id number] 1935 Unknown [id number] [id number]3 1935 Unknown [id number] 2.16.840.1.269030.3.579.2.593 1935 Unknown [id number] 2.16.840.1.125196.3.579.2.593 1935 Unknown [id number] 2.16.840.1.277599.3.579.2.593 1935 Unknown [id number] 2.16.840.1.751562.3.579.2.593 1935 Unknown [id number] 2.16.840.1.741824.3.579.2.593 1935 Unknown [id number] 2.16.840.1.384024.3.579.2.593 1935 Unknown [id number] 2.16.840.1.392220.3.579.2.593 1935 Unknown [id number] 2.16.840.1.737886.3.579.2.593 1935 Unknown [id number] 2.16.840.1.784639.3.579.2.593 1935 Unknown [id number] 2.16.840.1.733567.3.579.2.593 1935 Unknown [id number] 2.16.840.1.728225.3.579.2.593 1935 Unknown [id number] 2.16.840.1.342672.3.579.2.593 1935 Unknown [id number] 2.16.840.1.327290.3.579.2.593 1935 Unknown [id number] 2.16.840.1.706940.3.579.2.593 1935 Unknown [id number] 2.16.840.1.127417.3.579.2.593 1935 Unknown [id number] 2.16.840.1.159480.3.579.2.727 1935 Unknown [id number] 2.16.840.1.535401.3.579.2.727 1935 Unknown [id number] 2.16.840.1.723639.3.579.2.727 Unknown [id number] 2.16.8 40.1.226350.19 Unknown [id number] 2.16.840.1.507150.3.579.2.593 Unknown [id number] 2.16.840.1.431454.3.579.2.593 Social History Date Type Detail Facility Start: 05-18-2020 End: 11-13-2023 Sex Assigned At [facility] [employer] Other Start: 11-27-2021 End: 06-11-2022 Tobacco smoking status Never smoked tobacco (finding) [facility] Tobacco smoking status Never [facility] [place] Start: 11-13-2023 Tobacco smoking stat us NHIS Ex-smoker [facility] End: 08-01-1947 History of tobacco use Current smoker [facility] End: 08-01-1947 History of tobacco use Cigarette Smoker [facility] Start: 11-13-2023 Tobacco use and exposure Smokeless tobacco non-user [facility] Start: 11-13-2023 Alcoholic beverage intake Current drinker of alcohol (finding) [facility] Start: 05-18-2020 End: 11-13-2023 Alcoholic beverage intake [facility] Start: 07-29-2017 Alcohol Comment 1 daily [facility] Start: 1935 Sex assigned at Not on file [facility] Medical Equipment Procedure Code Equipment Code Equipment Origin al Text Equipment Identifier Dates Kit Iol +18.5 D Cnvxpln Klmn [facility] [id number] - [id number] - [id number] Start: 07-31-2017 Functional Status Date Assessment Result Facility 11-27-2021 Functional Status N/A [facility] [place] Clinical Notes 12-27-2020 to 04-30-2024 Assessment & Plan Note - Linda Montelongo MD - 11/13/2023 9:37 AM EDTAssessment & Plan Note - Linda Montelongo MD - 11/13/2023 9:37 AM EDTMradha Montelongo MD - 11/13/2023 9:20 AM EDT Note Date & Type Note Facility 04-30-2024 Note Cardiology Follow Up Progress Note HPI: Mason Natarajan is a 88 y.o. male With a past medical history including hypertension, diabetes, bradycardia. Patient was referred to cardiology for perioperative restratification prior to left shoulder surgery. At the time, patient was noted to be low risk, and was cleared for surgery. He presents today for 3 mo follow up hypertension and sinus bradycardia. Had echo back in Jan 2024 after last apt. He hasn't been able to check his BP at home lately because his machine is broken. RX provided for new machine. Said his recent BP check was 146/60 at the morning health break. Patient denies chest pain, SOB, palpitations, and syncope. No recent labs. He adamantly denies any cardiac complaints or concerns. He feels well. Cardiology ROS: 10 point ROS is performed and is negative unless otherwise specified in HPI. Medications Current Outpatient Medications on File Prior to Visit Medication Sig Dispense Refill amLODIPine (Norvasc) 10 mg tablet amlodipine 10 mg tablet TAKE 1 TABLET BY MOUTH EVERY DAY atorvastatin (Lipitor) 40 mg tablet Take 40 mg by mouth in the morning. budesonide EC (Entocort EC) 3 mg 24 hr capsule TAKE 3 CAPSULES BY MOUTH DAILY for FOUR weeks then TAKE 2 CAPSULES BY MOUTH DAILY for FOUR weeks then TAKE 1 CAPSULE BY MOUTH DAILY for FOUR weeks cholecalciferol (Vitamin D-3) 25 MCG (1000 UT) capsule 1 capsule in the morning. clopidogrel (Plavix) 75 mg tablet Take 75 mg by mouth in the morning. diclofenac (Voltaren) 75 mg EC tablet 75 mg every 12 (twelve) hours. hydrALAZINE (Apresoline) 100 mg tablet Take 1 tablet (100 mg) by mouth two times daily. 180 tablet 3 hyoscyamine 0.125 mg SL tablet DISSOLVE 1 TABLET UNDER THE TONGUE FOUR TIMES DAILY NEEDED levothyroxine (Synthroid, Levoxyl) 50 mcg tablet Take 50 mcg by mouth in the morning. liothyronine (Cytomel) 5 mcg tablet Take 10 mcg by mouth in the morning. lisinopril 20 mg tablet TAKE 1 TABLET BY MOUTH IN THE MORNING 90 tablet 3 oxybutynin (Ditropan) 5 mg [...] TAKE 1 TABLET BY MOUTH AT BEDTIME No current facility-administered medications on file prior to visit. Allergies Adhesive Physical Exam VITAL SIGNS: There were no vitals taken for this visit. 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 He is completely asymptomatic. Discussed risks, going to ER, possible treadmill stress test to assess for chronotropic incompetence. Patient will proceed with 30-day event monitor at this time. -Although unlikely causing bradycardia, will switch amlodipine 10 mg daily to nifedipine 60 mg daily. Patient instructed to monitor heart rate/blood pressure at home. He is given strict return precautions ongoing to ER if he has any dizziness, lightheadedness, near-syncope or syncope. -Continue other blood pressure medication regimen -Optimize medical management -Aggressive risk factor modific (more content not included)... [facility] 01-05-2024 Note Cardiology Follow Up Progress Note [...] were provided. P (more content not included)... [facility] 11-13-2023 Evaluation + Plan note Associated Problem(s): Bilateral carotid artery stenosis without cerebral infarction We will start him on aspirin Plavix and statin. I discussed with him risk factors modification and close surveillance.Will get an ultrasound in a year. [facility] 11-13-2023 Miscellaneous Notes Associated Problem(s): Bilateral carotid artery stenosis without cerebral infarction We will start him on aspirin Plavix and statin. I discussed with him risk factors modification and close surveillance.Will get an ultrasound in a year. documented in this encounter [facility] 11-13-2023 History of Presen t illness Narrative [...] mg total) by mouth in the morning. covzxlfh-jgqdgwse-eekkrby fum (MULTI VITAMIN) 9 mg iron/15 mL [...] Date Cataract Diabetes mellitus type 2, controlled ([facility]) Hypertension Hypothyroidism Injury of back 1985 back surgery Visual impairment glasses Past Surgical History: Past Surgical History: Procedure Laterality Date APPENDECTOMY BACK SURGERY CATARACT EXTRACTION IMPLANT SECONDARY LENS Left 07/31/2017 Performed by Orly Mares MD at [facility] SURGERY left rotator cuff TONSILLECTOMY Social [...] Interpersonal Safety: Unknown (05/29/2023) Received from [facility] [place] Safety & Environment Fear of Current or [...] and stenosis of unspecified carotid artery - [facility] [place] [place] Linda Montelongo MD, MC, RPVI, FSVS, FACS [facility] This note was created with the assistance of a speech recognition program. While intending to generate a timely document that accurately reflects the content of the visit, no guarantee can be provided that every grammatical or spelling mistake has been or will be identified or corrected. Thank you for your understanding. 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 [facility] 11-26-2022 Evaluation note Encounter Date Diagnosis Assessment Notes Nov, Microscopic colitis (ICD-10 - K52.89) Patient to use OTC probiotic and OTC Fiber supplement to help normalize the stools. Patient to finish remaining 2 weeks of medication and call if diarrhea returns after stopping the medication. RTO in 1 year. [employer] Other 09-22-2022 Evaluation note* Encounter Date Diagnosis Assessment Notes Treatment Notes Treatment Clinical Notes Dec, Microscopic colitis (ICD-10 - K52.89) REASSURANCE PT ADVISED TO ADD FIBER SUPPLEMENT TO DIET F/U PRN [employer] Other 08-23-2022 Hospital Discharge instructions Patient Education [...] urethra. Follow these instructions at home: Take [id number] and prescription medicines only as told by [...] 03/24/2006 Document Revised: 02/16/2019 Document Reviewed: 04/28/2017 [employer] Patient Education 2020 [employer]. Follow Up Care 05/30/2021 14:56:10 With:Darien REYNOLDS MD, URL Address: [address] [place], [place] [id number]- When:6 months [facility] [id number] Evaluation note* Encounter Date Diagnosis Assessment Notes Treatment Notes Treatment Clinical Notes Dec, Microscopic colitis (ICD-10 - K52.89) Colitis home care material was printed will taper the budesonide at this time patient to finish the 9 mg taper then move to the 6 mg taper. [employer] Other Evaluation + Plan note Future Appointments Appointment Date:06/11/2022 09:30:00 AM Scheduled Provider:Darien REYNOLDS MD Location:[facility] Appointment Type:URO Office Visit [facility] Evaluation note* Diagnosis Bilateral carotid artery stenosis without cerebral infarction- Primary Occlusion and stenosis of unspecified carotid artery [facility] - [facility]orted* Type Description [...] 1998 Hospitalization History SEE ABOVE SURGICAL HX [employer] Other History general Narrative - Reported* Type Description Date Surgical History vasectomy 1979 Surgical History umbilical hernia repair 1982 Surgical History back surgery-lower 1984 Surgical History appendectomy 1991 Surgical History cataract removal L 1999 Surgical History rotator cuff L 2007 Surgical History elbow surgery R 2008 Surgical History carpal tunnel release R 2008 Surgical History cataract removal R 2012 Surgical History eye surgery L Surgical History torn macula L 1998 Hospitalization History SEE ABOVE SURGICAL HX Hospitalization History A1c down- [place] [facility] ford 05/2022 [employer] Other Hospital course Narrative No data available for this section [facility] Hospital Discharge instructions No data available for this section [facility] [employer] InstructionsNot on filedocumented in this encounter [facility] No data available for this section [facility] Summary Purpose Family History No Family History [...] Vas carotid duplex bilateral Linda Montelongo MD [address], [place] [address] Referral ID Status Reason Start Date Expiration Date V isits Requested Visits Authorized [id number] Pending Review 11/13/2023 11/12/2024 1 1 Additional Source Comments (unrecognized sect ion and content) No Status Records FoundNo Status Records FoundNo Status Records FoundNo Status Records FoundNo Status Records FoundNo Status Records Found INFORMATION SOURCE (unrecogn ized section and content) DATE CREATED AUTHOR 09/30/2017 [facility] DATE CREATED AUTHOR AUTHOR'S ORGANIZ ATION 09/30/2017 [facility] DATE CREATED AUTHOR AUTHOR'S ORGANIZ ATION 10/30/2020 [facility] [facility] DATE CREATED AUTHOR AUTHOR'S ORGANIZ ATION 08/19/2022 [facility] DATE CREATED AUTHOR AUTHOR'S ORGANIZ ATION 08/10/2023 [facility] DATE CREATED AUTHOR AUTHOR'S ORGANIZ ATION 05/07/2024 [facility] REASON FOR VISIT (unrecogniz ed section and content) Reason Comments carotid stenosis Venous duplex in med ia Specialty Diagnoses / Procedures Referred By Odalys teresa Referred To Contact Vascular Surgery Diagnoses Occlusion and stenosis of unspecified carotid artery Erin Berg MD [address] [id number] Linda Montelongo MD [facility] [place] [place] [address] Referral ID Status Reason Start Date Expiration Date Visits Requested Visits Authorized [id number] Pending Review Specialty Services Required 11/04/2023 11/03/2024 1 1 Care Team (unrecognized sect ion and content) 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 [employer] provides no warranty or guarantee of the accuracy or completeness of information in this document.
[2024-05-07 09:58] LABS: Anion Gap 14.2; Carbon Dioxide 22.4 mmol/L (21.0-32.0); Chloride 110 mmol/L (98-107); Glucose 121 mg/dL (74-106); Potassium 5.6 mmol/L (3.5-5.1); Sodium 141 mmol/L (136-145)
[2024-05-07 09:59] LABS: BUN Creatinine Ratio 20.2; Calcium 8.9 mg/dL (8.5-10.1); Estimated GFR (African America 44 (>=60 mL/min/1.73m^2); Estimated GFR (Non-African Ame 36 (>=60 mL/min/1.73m^2)
== END 2024-05-07 08:51 | disposition home or self-care (01) ==
LOC: LAB 08:53
PROVIDERS: PCP Family Medicine; Visit Provider Family Medicine
DX: I10 Essential (primary) hypertension (principal)
CPT/HCPCS: 36415; 80048

== ENCOUNTER 2024-07-05 16:51 | Outpatient (OUT) | payer MEDICARE, OTHER, SELFPAY ==
--- NOTE | 2024-07-05 | XR_ITS ---
[place] [id number] Patient Name: LILIANA BENITO MRN: [id number] date: 1935 Sex: M Assigned Patient Location: [facility] Current Patient Location: [facility] Accession/Order Number: [id number] Exam Date: 07/05/2024 18:22 Report Date: 07/05/2024 18:23 At the request of: ERIN ZHANG MD Procedure: XR ankle RT min 3V 3 views right ankle plain film COMPARISON: None HISTORY: Right ankle pain. ACUTE FINDINGS: None DEGENERATIVE CHANGE: Mild degenerative spurring posterior and inferior calcaneal spurring the midfoot degeneration SOFT TISSUE FINDINGS: Unremarkable JOINT EFFUSION: None POSTOP CHANGES: None BONE MINERALIZATION: Adequate benign 6 6 changes of the anterior calcaneus XR/XR ankle RT min 3V IMPRESSION: Moderate degeneration. No acute findings Impression dictated by: Abdirahman Kennedy M.D.07/05/2024 6:23 PM Dictation Location[facility] Electronically authenticated by: [id number] Date: 07/05/2024 18:23
--- OUTSIDE RECORDS SUMMARY | 2024-07-05 17:13 | XMS_ITS | CCD ---
Author Organization [facility] Care Team Providers Care Portable Irrigation Operator Name Role Phone CHET NESBITT Unavailable Unavailable LAZ CHET Unavailable Unavailable ERIN BERG Unavailable Unavailable PHYSICIAN, DEFAULT Unavailable Unavailable PHYSICIAN, DEFAULT Unavailable Unavailable PHYSICIAN, DEFAULT Unavailable Unavailable PHYSICIAN, DEFAULT Unavailable Unavailable Chevy Robins Unavailable Erin Berg Primary Care Physician [phone] VICENTE ., DR KHAN Consulting Unavailable HOY [...] Unavailable HOY ., DR KHAN Consulting Unavailable ZiDavid parson Consulting Unavailable HOY ., DR KHAN Consulting Unavailable HOY ., DR KHAN Primary Care Unavailable HOY ., DR KHAN Attending Unavailable HOY ., DR KHAN Admitting Unavailable Ziebivy, David Consulting Unavailable Darien REYNOLDS Attending Unavailable Darien REYNOLDS Attending Unavailable Alli MUKHERJEE Attending Unavailable HoyErin Referring Unavailable ALGHOTHANI, MOHAMAD Attending Unavailable ALGHOTHANI, MOHAMAD Attending Unavailable ALGHOTHANI, MOHAMAD Attending Unavailable Hoy Erin GARCIA Primary Care Provider [phone] Allergies Allergy Classification Reported Allergen(s) Allergy Type Date of Onset Reaction(s) Facility (1 source) No Known Medication Allergies; Translations: [No Known Medication Allergies] Propensity to adverse reactions (disorder) [facility] Repository (1 source) Adhesive agent; Translations: [ADHESIVE] Propensity to adverse reactions to drug (disorder) 7 [facility] Repository Medications Current Medications Medication Drug Class(es) [...] capsule Take 500 mg by mouth. Active logan root 250 mg oral capsule (1 source) logan, Zingiber officinalis, (LOGAN EXTRACT) 250 mg capsule Take 250 mg [...] Daily, # 30 tab(s), Refills(s) 11, Pharmacy: Recommend [id number], 172, cm, 06/11/22 9:50:00 EST, [...] 11/05/2023 Active take 1 capsule by mo [facility] every twelve hours Potassium Chloride ER 10 [...] 50 mg by mouth. 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 I then spoke with Srinivasa Natarajan - who said Dr. Berg already advised him to stop potassium. He also said Dr. Berg ordered repeat labs to be done in the next few days. He does not see a photographic process screen maker but agreed to a referral. I put one in and faxed it to [facility] in [place]. Patient verbalized understanding. Normal [facility] Office Visiton 04-30-2024 Follow-up visit [id number] Caprice Natarajan 1935 M Date Provider Department Center 04/30/2024 384ARNEL CREWS Family History Problem Relation Age of Onset Diabetes Father Hypertension Father Family Status - Relation Status Age at Father Level of Service:84249 AL OFFICE/OUTPATIENT ESTABLISHED MOD MDM 30 MIN Normal [facility] 01-05-2024 Follow-up visit [id number] Caprice Natarajan 1935 M Date Provider Department Center 01/05/2024 3848-ALGHOTHANI, MOHAMAD BH CARD [facility] Family History Problem Relation Age of Onset Diabetes Father Hypertension Father Family Status - Relation Status Age at Father Level of Service:71520 AL OFFICE/OUTPATIENT ESTABLISHED LOW MDM 20 MIN Normal [facility] 07-07-2023 Follow-up visit [id number] Caprice Natarajan 1935 M Date Provider Department Center 07/07/2023 3848-ARNEL BAEZA [facility] Family History Problem Relation Age of Onset Diabetes Father Hypertension Father Family Status - Relation Status Age at Father Level of Service:50434 AL OFFICE/OUTPATIENT ESTABLISHED LOW MDM 20 MIN Reason for Visit and Comments: Follow-up [006828] - 6 month follow up Normal [facility] STOOL CULTUREon 08-18-2022 Campylobacter Culture Final report Normal [facility] Comment on above: Performed By: #### C XSTOOL #### [facility] [address] [address] [address] Deepika Terrell E coli Shiga Toxin EIA Negative Normal Negative [facility] Comment on above: Performed By: #### C XSTOOL #### [facility] [address] [address] [address] Deepika Terrell Result 1 Comment Normal [facility] Comment on above: Result Comment: No S almonella or Shigella recovered. Performed By: #### C XSTOOL #### [facility] [address] [address] [address] Deepika Tererll Result Comment: No C ampylobacter species isolated. Salmonella/Shigell a Screen Final report Normal [facility] Comment on above: Performed By: #### C XSTOOL #### [facility] [address] [address] [address] Deepika Terrell C. DIFF PCRon 08-13-2022 C. DIFFICILE PCR Negative Normal NEGATIVE [facility] Comment on above: Performed By: #### B MP #### [facility] [address] [address] [address] Deepika Terrell Consultation Noteon 08-14-19 23 Consultation Note [id number]:127 Normal [facility] OCC BLD IMMUNO SCREENon 05-0 OCCULT BLOOD Negative Normal NEGATIVE [facility] Comment on above: Performed By: #### B #### [facility] [id number] Deepika Terrell RAD - MISCon 08-13-2022 RAD - MISC [id number]:127 Normal [facility] Physician Referralon 023 Physician Referral [id number]:127 Normal [facility] NM HEPATOBILIARY SCAN W EFon 08-09-2022 [...] within the gallbladder. Electronically authenticated by: DAVID JENKINS Date: 2022-08-09 10:42 Normal [facility] US SINGLE QUAD RT UPPERon US [...] KURT JOE Date: 2022-08-08 07:42 Normal [facility] GLYCOHEMOGLOBIN A1Con 2022 ADA RECOMMENDATION SEE BELOW Normal [facility] Comment on above: Result Comment: ADA RECOMMENDED LIMIT 4.0 - 6.0 ADA THERAPEUTIC TARGET < 7.0 ACTION SUGGESTED > 7.0 Performed By: #### I NSULT #### [facility] [address] [address] [address] Deepika Terrell Glucose [Mass/Vol] 117 mg/dL Normal [facility] Comment on above: Performed By: #### I NSULT #### [facility] [address] [address] [address] Deepika Terrell HbA1c (Bld) [Mass fraction] 5.7 % Normal 4.5-6.2 [facility] Comment on above: Performed By: #### I NSULT #### [facility] [address] ABD/PELVIS WO CONon [...] MARK LEE Date: 2022-07-20 07:40 Normal [facility] CBC AUTO DIFFon 07-19-2022 BASO # 0.0 103/ul Normal 0.0-0.1 [facility] Comment on above: Performed By: #### C BC #### [facility] [address] [place] [address] Dr. Deepika Terrell Basophils/100 WBC (Bld) 0.3 % Normal 0.2-2.0 [facility] Comment on above: Performed By: #### C BC #### [facility] [address] [place] [address] Dr. Deepika Terrell EO # 0.3 103/ul Normal 0.0-0.7 [facility] Comment on above: Performed By: #### C BC #### [facility] [address] [place] [address] Dr. Deepika Terrell Eosinophils/100 WBC (Bld) 2.4 % Normal 0.9-7.0 [facility] Comment on above: Performed By: #### C BC #### [facility] [address] [place] [address] Dr. Deepika Terrell Erythrocyte distribution width (RBC) [Ratio] 14.8 % Normal 11.0-15.0 [facility] Comment on above: Performed By: #### C BC #### [facility] [address] [place] [address] Dr. Deepika Terrell Hematocrit (Bld) [Volume fraction] 33.8 % Critically low 42.0-54.0 [facility] Comment on above: Performed By: #### C BC #### [facility] [address] [place] [address] Dr. Deepika Terrell Hemoglobin (Bld) [Mass/Vol] 11.0 g/dL Critically low 14.0-18.0 [facility] Comment on above: Performed By: #### C BC #### [facility] [address] [place] [address] Dr. Deepika Terrell IG # 0.08 10e3/ul Critically high 0.00-0.03 [facility] Comment on above: Performed By: #### C BC #### [facility] [address] [place] [address] Dr. Deepika Terrell IG % 0.7 % Critically high 0.0-0.5 [facility] Comment on above: Performed By: #### C BC #### [facility] [address] [place] [address] Dr. Deepika Terrell LYMPH # 3.5 103/ul Normal 1.2-3.8 [facility] Comment on above: Performed By: #### C BC #### [facility] [address] [place] [address] Dr. Deepika Terrell Lymphocytes/100 WBC (Bld) 29.2 % Normal 20.5-60.0 [facility] Comment on above: Performed By: #### C BC #### [facility] [address] [place] [address] Dr. Deepika Terrell MANUAL DIFF REQ NO Normal [facility] Comment on above: Performed By: #### C BC #### [facility] [address] [place] [address] Dr. Deepika Terrell MCH (RBC) [Entitic mass] 29.4 pg Normal 25.9-34.0 [facility] Comment on above: Performed By: #### C BC #### [facility] [address] [place] [address] Dr. Deepika Terrell MCHC (RBC) [Mass/Vol] 32.5 g/dL Normal 29.9-35.2 [facility] Comment on above: Performed By: #### C BC #### [facility] [address] [place] [address] Dr. Deepika Terrell MCV (RBC) [Entitic vol] 90.4 fL Normal 80.0-94.0 [facility] Comment on above: Performed By: #### C BC #### [facility] [address] [place] [address] Dr. Deepika Terrell MONO # 0.7 103/ul Normal 0.3-0.8 [facility] Comment on above: Performed By: #### C BC #### [facility] [address] [place] [address] Dr. Deepika Terrell Monocytes/100 WBC (Bld) 6.1 % Normal 1.7-12.0 [facility] Comment on above: Performed By: #### C BC #### [facility] [address] [place] [address] Dr. Deepika Terrell NEUT # 7.3 103/ul Critically high 1.4-6.5 [facility] Comment on above: Performed By: #### C BC #### [facility] [address] [place] [address] Dr. Deepika Terrell Neutrophils/100 WBC (Bld) 61.3 % Normal 43.0-75.0 [facility] Comment on above: Performed By: #### C BC #### [facility] [address] [place] [address] Dr. Deepika Terrell Platelet mean volume (Bld) [Entitic vol] 10.8 fL Normal 9.5-13.5 [facility] Comment on above: Performed By: #### C BC #### [facility] [address] [place] [address] Dr. Deepika Terrell PLT 372 103/ul Normal 150-450 [facility] Comment on above: Performed By: #### C BC #### [facility] [address] [place], [place] [id number] Dr. Deepika Terrell RBC 3.74 106/ul Critically low 4.70-6.10 [facility] Comment on above: Performed By: #### C BC #### [facility] [address] [place] [address] Dr. Deepika Terrell WBC 11.9 103/ul Critically high 4.0-11.0 [facility] Comment on above: Performed By: #### C BC #### [facility] [address] [address] [address] Deepika Terrell PROF CHEM 8 (BAS METB)on Anion gap [Moles/Vol] 16.1 mmol/L Normal [facility] Comment on above: Performed By: #### I NSULT #### [facility] [address] [place] [address] Dr. Deepika Terrell Calcium [Mass/Vol] 9.0 mg/dL Normal 8.5-10.1 [facility] Comment on above: Performed By: #### I NSULT #### [facility] [address] [place] [address] Dr. Deepika Terrell Chloride [Moles/Vol] 108 mmol/L Critically high 98-107 [facility] Comment on above: Performed By: #### I NSULT #### [facility] [address] [place] [address] Dr. Deepika Terrell CO2 [Moles/Vol] 19.3 mmol/L Critically low 21.0-32.0 [facility] Comment on above: Performed By: #### I NSULT #### [facility] [address] [place] [address] Dr. Deepika Terrell Creatinine [Mass/Vol] 2.68 mg/dL Critically high 0.70-1.30 [facility] Comment on above: Performed By: #### I NSULT #### [facility] [address] [place] [address] Dr. Deepika Terrell EGFR-AF BURKINAN 27 mL/min/1.73m2 Critically low >=60 [facility] Comment on above: Performed By: #### I NSULT #### [facility] [address] [place] [address] Dr. Deepika Terrell EGFR-NON AF BURKINAN 23 mL/min/1.73m2 Critically low >=60 [facility] Comment on above: Performed By: #### I NSULT #### [facility] [address] [place] [address] Dr. Deepika Terrell Glucose [Mass/Vol] 138 mg/dL Critically high 74-[address] [facility] Comment on above: Performed By: #### I NSULT #### [facility] [address] [place] [address] Dr. Deepika Terrell Potassium [Moles/Vol] 4.4 mmol/L Normal 3.5-5.1 [facility] Comment on above: Performed By: #### I NSULT #### [facility] [address] [address] [address] Deepika Terrell Sodium [Moles/Vol] 139 mmol/L Normal 136-145 [facility] Comment on above: Performed By: #### I NSULT #### [facility] [address] [place] [address] Dr. Deepika Terrell Urea nitrogen [Mass/Vol] 68.0 mg/dL Critically high 7.0-18.0 [facility] Comment on above: Performed By: #### I NSULT #### [facility] [address] [place] [address] Dr. Deepika Terrell Urea nitrogen/Creatinin e [Mass ratio] 25.4 mg/mg Normal [facility] Comment on above: Performed By: #### I NSULT #### [facility] [address] [place] [address] Dr. Deepika Terrell CA 19-9on 07-18-2022 CA 19-9 9 U/mL Normal 0-35 [facility] Comment on above: Result Comment: [employer] Electrochemiluminescence Immunoassay (ECLIA) . Values obtained with different assay methods or kits cannot be used interchangeably. Results cannot be interpreted as absolute evidence of the presence or absence of malignant disease. Performed By: #### B MP #### [facility] [address] [place] [address] Dr. Deepika Terrell CEAon 07-18-2022 CEA 3.1 ng/mL Normal 0.0-4.7 [facility] Comment on above: Result Comment: Nons mokers <3.9 Smokers <5.6 . [employer] Electrochemiluminescence Immunoassay (ECLIA) . Values obtained with different assay methods or kits cannot be used interchangeably. Results cannot be interpreted as absolute evidence of the presence or absence of malignant disease. Performed By: #### I NSULT #### [facility] [address] [place] [address] Dr. Deepika Terrell HELICOBACTER PYLORI AB IGMon 07-18-2022 H pylori, IgM Abs <9.0 Normal 0.0-8.9 [facility] Comment on above: Result Comment: Nega tive <9.0 Equivocal 9.0 - 11.0 Positive >11.0 . This test was developed and its performance characteristics determined by [employer]. It has not been cleared or approved by the Food and Drug Administration. Performed By: #### C PEPT #### [facility] [address] [place] [address] Dr. Deepika Terrell AMYLASEon 07-17-2022 Amylase [Catalytic activity/Vol] 38 U/L Normal 25-115 [facility] Comment on above: Performed By: #### C BC #### [facility] [address] [place] [address] Dr. Deepika Terrell CBC W MANUAL DIFFon 07-18-19 23 ATYPICAL LYMPH # Normal [facility] Comment on above: Performed By: #### E RUR #### [facility] [address] [place] [address] Dr. Deepika Terrell ATYPICAL LYMPH % Normal [facility] Comment on above: Performed By: #### E RUR #### [facility] [address] [place] [address] Dr. Deepika Terrell BAND # Normal 0.0-0.3 [facility] Comment on above: Performed By: #### E RUR #### [facility] [address] [place] [address] Dr. Deepika Terrell BAND % Normal 0-5 [facility] Comment on above: Performed By: #### E RUR #### [facility] [address] [place] [address] Dr. Deepika Terrell BASOM # 0.00 103/ul Normal 0.00-0.10 [facility] Comment on above: Performed By: #### E RUR #### [facility] [address] [place] [address] Dr. Deepika Terrell BASOM % 0.0 % Critically low 0.2-2.0 [facility] Comment on above: Performed By: #### E RUR #### [facility] [address] [address] [address] Deepika Terrell BLAST # Normal [facility] Comment on above: Performed By: #### E RUR #### [facility] [address] [address] [address] Deepika Terrell BLAST % Normal [facility] Comment on above: Performed By: #### E RUR #### [facility] [address] [place] [address] Dr. Deepika Terrell CORRECTED WBC Normal 4.0-11.0 [facility] Comment on above: Performed By: #### E RUR #### [facility] [address] [place] [address] Dr. Deepika Terrell EOS # 0.00 103/ul Normal 0.00-0.70 [facility] Comment on above: Performed By: #### E RUR #### [facility] [address] [place] [address] Dr. Deepika Terrell EOS% 0.0 % Critically low 0.9-7.0 [facility] Comment on above: Performed By: #### E RUR #### [facility] [address] [place] [address] Dr. Deepika Terrell HCT 35.9 % Critically low 42.0-54.0 [facility] Comment on above: Performed By: #### E RUR #### [facility] [address] [place] [address] Dr. Deepika Terrell HGB 11.6 g/dl Critically low 14.0-18.0 [facility] Comment on above: Performed By: #### E RUR #### [facility] [address] [place] [address] Dr. Deepika Terrell LYMPHM # 3.48 103/ul Normal 1.20-3.80 [facility] Comment on above: Performed By: #### E RUR #### [facility] [address] [place] [address] Dr. Deepika Terrell LYMPHM% 17.0 % Critically low 20.5-60.0 [facility] Comment on above: Performed By: #### E RUR #### [facility] [address] [place] [address] Dr. Deepika Terrell MCH 29.5 pg Normal 25.9-34.0 [facility] Comment on above: Performed By: #### E RUR #### [facility] [address] [place] [address] Dr. Deepkia Terrell MCHC 32.3 g/dl Normal 29.9-35.2 [facility] Comment on above: Performed By: #### E RUR #### [facility] [address] [place] [address] Dr. Deepika Terrell MCV 91.3 fL Normal 80.0-94.0 [facility] Comment on above: Performed By: #### E RUR #### [facility] [address] [place] [address] Dr. Deepika Terrell METAMYELOCYTE # Normal [facility] Comment on above: Performed By: #### E RUR #### [facility] [address] [place] [address] Dr. Deepika Terrell METAMYELOCYTE % Normal [facility] Comment on above: Performed By: #### E RUR #### [facility] [address] [place] [address] Dr. Deepika Terrell MONOM# 1.23 103/ul Critically high 0.30-0.80 [facility] Comment on above: Performed By: #### E RUR #### [facility] [address] [place] [address] Dr. Deepika Terrell MONOM% 6.0 % Normal 1.7-12.0 [facility] Comment on above: Performed By: #### E RUR #### [facility] [address] [place] [address] Dr. Deepika Terrell MPV 10.8 fL Normal 9.5-13.5 [facility] Comment on above: Performed By: #### E RUR #### [facility] [address] [address] [address] Deepika Terrell MYELOCYTE # Normal [facility] Comment on above: Performed By: #### E RUR #### [facility] [address] [address] [address] Deepika Terrell MYELOCYTE % Normal [facility] Comment on above: Performed By: #### E RUR #### [facility] [address] [address] [address] Deepika Terrell NRBC Normal [facility] Comment on above: Performed By: #### E RUR #### [facility] [address] [place] [address] Dr. Deepika Terrell PLT 423 103/ul Normal 150-450 [facility] Comment on above: Performed By: #### E RUR #### [facility] [address] [address] [address] Deepika Terrell RBC 3.93 106/ul Critically low 4.70-6.10 [facility] Comment on above: Performed By: #### E RUR #### [facility] [address] [place] [address] Dr. Deepika Terrell RDW 14.7 % Normal 11.0-15.0 [facility] Comment on above: Performed By: #### E RUR #### [facility] [address] [address] [address] Deepika Terrell SEG # 15.79 103/ul Critically high 1.40-6.50 [facility] Comment on above: Performed By: #### E RUR #### [facility] [address] [place] [address] Dr. Deepika Terrell SEG % 77.0 % Critically high 43.0-75.0 [facility] Comment on above: Performed By: #### E RUR #### [facility] [address] [address] [address] Deepika Terrell WBC 20.5 103/ul Critically high 4.0-11.0 [facility] Comment on above: Performed By: #### E RUR #### [facility] [address] [place] [address] Dr. Deepika Terrell FREE THYROXINE INDEX T7on FTI 1.95 Normal 1.30-4.50 [facility] Comment on above: Performed By: #### C BC #### [facility] [address] [place] [address] Dr. Deepika Terrell T3U 39.0 % Normal 33.0-40.0 [facility] Comment on above: Performed By: #### C BC #### [facility] [address] [place] [address] Dr. Deepika Terrell T4 [Mass/Vol] 5.00 ug/dL Normal 4.50-12.10 [facility] Comment on above: Performed By: #### C BC #### [facility] [address] [place] [address] Dr. Deepika Terrell LIPASEon 07-17-2022 Lipase [Catalytic activity/Vol] 126.0 U/L Normal 73.0-393.0 [facility] Comment on above: Performed By: #### C BC #### [facility] [address] [place] [address] Dr. Deepika Terrell LIVER PROFILEon 07-17-2022 Albumin [Mass/Vol] 3.7 g/dL Normal 3.4-5.0 [facility] Comment on above: Performed By: #### C BC #### [facility] [address] [place] [address] Dr. Deepika Terrell Albumin/Globulin [Mass ratio] 1.0 {ratio} Normal [facility] Comment on above: Performed By: #### C BC #### [facility] [address] [place] [address] Dr. Deepika Terrell ALP [Catalytic activity/Vol] 82 U/L Normal 46-116 [facility] Comment on above: Performed By: #### C BC #### [facility] [address] [place] [address] Dr. Deepika Terrell ALT [Catalytic activity/Vol] 33 U/L Normal 16-63 [facility] Comment on above: Performed By: #### C BC #### [facility] [address] [address] [address] Deepika Terrell AST [Catalytic activity/Vol] 15 U/L Normal 15-37 [facility] Comment on above: Performed By: #### C BC #### [facility] [address] [place], [place] [address] Dr. Deepika Terrell BILI, CONJUGATED 0.1 mg/dL Normal 0.0-0.2 [facility] Comment on above: Performed By: #### C BC #### [facility] [address] [place] [address] [address] Deepika Terrell Bilirubin [Mass/Vol] 0.2 mg/dL Normal 0.2-1.0 [facility] Comment on above: Performed By: #### C BC #### [facility] [address] [place] [address] Dr. Deepika Terrell Globulin (S) [Mass/Vol] 3.6 g/dL Normal [facility] Comment on above: Performed By: #### C BC #### [facility] [address] [address] [address] Deepika Terrell Protein [Mass/Vol] 7.3 g/dL Normal 6.4-8.2 [facility] Comment on above: Performed By: #### C BC #### [facility] [address] [address] [address] Deepika Terrell PERIPHERAL SMEARon 3 Pathologist Cyto stain Nom (Cvx/Vag) [ID] DR. ANNIKA NIETO Normal [facility] Comment on above: Result Comment: revi ew of smear reveals n/n w/aniso. plts. normal. leukocytosis with neutrophili and absolute monocytosis. no atypical lymphs, immature blasts seen. these findings are suggestive of a reactive process. clinical correlation is recommend Performed By: #### P ERSMR #### [facility] [address] [place] [address] Dr. Deepika Terrell PROF CHEM 8 (BAS METB)on Anion gap [Moles/Vol] 19.0 mmol/L Normal [facility] Comment on above: Performed By: #### C BC #### [facility] [address] [address] [address] Deepika Terrell Calcium [Mass/Vol] 9.5 mg/dL Normal 8.5-10.1 [facility] Comment on above: Performed By: #### C BC #### [facility] [address] [address] [address] Deepika Terrell Chloride [Moles/Vol] 112 mmol/L Critically high 98-107 [facility] Comment on above: Performed By: #### C BC #### [facility] [address] [address] [address] Deepika Terrell CO2 [Moles/Vol] 19.4 mmol/L Critically low 21.0-32.0 [facility] Comment on above: Performed By: #### C BC #### [facility] [address] [address] [address] Deepika Terrell Creatinine [Mass/Vol] 2.51 mg/dL Critically high 0.70-1.30 [facility] Comment on above: Performed By: #### C BC #### [facility] [address] [place] [address] Dr. Deepika Terrell EGFR-AF BURKINAN 30 mL/min/1.73m2 Critically low >=60 [facility] Comment on above: Performed By: #### C BC #### [facility] [address] [address] [address] Deepika Terrell EGFR-NON AF BURKINAN 24 mL/min/1.73m2 Critically low >=60 [facility] Comment on above: Performed By: #### C BC #### [facility] [address] [address] [address] Deepika Terrell Glucose [Mass/Vol] 159 mg/dL Critically high 74-106 [facility] Comment on above: Performed By: #### C BC #### [facility] [address] [address] [address] Deepika Terrell Potassium [Moles/Vol] 4.4 mmol/L Normal 3.5-5.1 [facility] Comment on above: Performed By: #### C BC #### [facility] [address] [address] [address] Deepika Terrell Sodium [Moles/Vol] 146 mmol/L Critically high 136-[address] [facility] Comment on above: Performed By: #### C BC #### [facility] [address] [address] [address] Deepika Terrell Urea nitrogen [Mass/Vol] 67.0 mg/dL Critically high 7.0-18.0 [facility] Comment on above: Performed By: #### C BC #### [facility] [address] [place] [address] Dr. Deepika Terrell Urea nitrogen/Creatinin e [Mass ratio] 26.7 mg/mg Normal [facility] Comment on above: Performed By: #### C BC #### [facility] [address] [place] [address] Dr. Deepika Terrell TSHon 07-17-2022 TSH 0.884 uIU/mL Normal 0.358-3.740 [facility] Comment on above: Performed By: #### C BC #### [facility] [address] [place] [address] Dr. Deepika Terrell INSULIN FREE AND TOTALon Free Insulin 22 uU/mL Critically high [facility] Comment on above: Result Comment: Refe rence Range: Pubertal Children and Adults (fasting): 0 - 17 Performed By: #### I NSULT #### [facility] [address] [place] [address] Dr. Deepika Terrell Total Insulin 22 uU/mL Normal [facility] Comment [...] developed and its performance characteristics determined by [employer]. It has not been cleared or approved by the Food and Drug Administration. Performed By: #### I NSULT #### [facility] [address] [place] [address] Dr. Deepika Terrell C-PEPTIDE, SERUMon 3 C-Peptide, Serum 7.7 ng/mL Critically high 1.1-4.4 [facility] Comment on above: Result Comment: C-Pe ptide reference interval is for fasting patients. Performed By: #### C PEPT #### [facility] [address] [place] [address] Dr. Deepika Terrell OVA AND PARASITE EXAMINATION on 06-04-2022 Ova + Parasite Exam Final report Normal [facility] Comment on above: Result Comment: Thes e results were obtained using wet preparation(s) and trichrome stained smear. This test does not include testing for Cryptosporidium parvum, Cyclospora, or Microsporidia. Performed By: #### B MP #### [facility] [address] [place] [address] Dr. Deepika Terrell Result 1 Comment Normal [facility] Comment on above: Result Comment: No o va, cysts, or parasites seen. . One negative specimen does not rule out the possibility of a parasitic infection. Performed By: #### B MP #### [facility] [address] [place] [address] Dr. Deepika Terrell CBC AUTO DIFFon 06-02-2022 BASO # 0.0 103/ul Normal 0.0-0.1 [facility] Comment on above: Performed By: #### I NSULT #### [facility] [address] [place] [address] Dr. Deepika Terrell Basophils/100 WBC (Bld) 0.4 % Normal 0.2-2.0 [facility] Comment on above: Performed By: #### I NSULT #### [facility] [address] [place] [address] Dr. Deepika Terrell EO # 0.4 103/ul Normal 0.0-0.7 [facility] Comment on above: Performed By: #### I NSULT #### [facility] [address] [place] [address] Dr. Deepika Terrell Eosinophils/100 WBC (Bld) 3.3 % Normal 0.9-7.0 [facility] Comment on above: Performed By: #### I NSULT #### [facility] [address] [place] [address] Dr. Deepika Terrell Erythrocyte distribution width (RBC) [Ratio] 14.6 % Normal 11.0-15.0 [facility] Comment on above: Performed By: #### I NSULT #### [facility] [address] [place] [address] Dr. Deepika Terrell Hematocrit (Bld) [Volume fraction] 29.8 % Critically low 42.0-54.0 [facility] Comment on above: Performed By: #### I NSULT #### [facility] [address] [place] [address] Dr. Deepika Terrell Hemoglobin (Bld) [Mass/Vol] 9.8 g/dL Critically low 14.0-18.0 [facility] Comment on above: Performed By: #### I NSULT #### [facility] [address] [place] [address] Dr. Deepika Terrell IG # 0.05 10e3/ul Critically high 0.00-0.03 [facility] Comment on above: Performed By: #### I NSULT #### [facility] [address] [place] [address] Dr. Deepika Terrell IG % 0.5 % Normal 0.0-0.5 [facility] Comment on above: Performed By: #### I NSULT #### [facility] [address] [place] [address] Dr. Deepika Terrell LYMPH # 1.9 103/ul Normal 1.2-3.8 [facility] Comment on above: Performed By: #### I NSULT #### [facility] [address] [place] [address] Dr. Deepika Terrell Lymphocytes/100 WBC (Bld) 17.3 % Critically low 20.5-60.0 [facility] Comment on above: Performed By: #### I NSULT #### [facility] [address] [place] [address] Dr. Deepika Terrell MANUAL DIFF REQ NO Normal [facility] Comment on above: Performed By: #### I NSULT #### [facility] [address] [place] [address] Dr. Deepika Terrell MCH (RBC) [Entitic mass] 29.9 pg Normal 25.9-34.0 [facility] Comment on above: Performed By: #### I NSULT #### [facility] [address] [place] [address] Dr. Deepika Terrell MCHC (RBC) [Mass/Vol] 32.9 g/dL Normal 29.9-35.2 [facility] Comment on above: Performed By: #### I NSULT #### [facility] [address] [place] [address] Dr. Deepika Terrell MCV (RBC) [Entitic vol] 90.9 fL Normal 80.0-94.0 [facility] Comment on above: Performed By: #### I NSULT #### [facility] [address] [place] [address] Dr. Deepika Terrell MONO # 0.8 103/ul Normal 0.3-0.8 [facility] Comment on above: Performed By: #### I NSULT #### [facility] [address] [place] [address] Dr. Deepika Terrell Monocytes/100 WBC (Bld) 7.4 % Normal 1.7-12.0 [facility] Comment on above: Performed By: #### I NSULT #### [facility] [address] [place] [address] Dr. Deepika Terrell NEUT # 7.9 103/ul Critically high 1.4-6.5 [facility] Comment on above: Performed By: #### I NSULT #### [facility] [address] [place] [address] Dr. Deepika Terrell Neutrophils/100 WBC (Bld) 71.1 % Normal 43.0-75.0 [facility] Comment on above: Performed By: #### I NSULT #### [facility] [address] [address] [address] Deepika Terrell Platelet mean volume (Bld) [Entitic vol] 10.7 fL Normal 9.5-13.5 [facility] Comment on above: Performed By: #### I NSULT #### [facility] [id number] Deepika Terrell PLT 295 103/ul Normal 150-450 [facility] Comment on above: Performed By: #### I NSULT #### [facility] [address] [address] [address] Deepika Terrell RBC 3.28 106/ul Critically low 4.70-6.10 [facility] Comment on above: Performed By: #### I NSULT #### [facility] [id number] Deepika Terrell WBC 11.1 103/ul Critically high 4.0-11.0 [facility] Comment on above: Performed By: #### I NSULT #### [facility] [id number] Deepika Terrell [address] ABD/PELV W CONon [...] YANIV DACOSTA Date: 2022-06-01 22:50 Normal [facility]09 SARS-CoV-2 (COVID-19) RNA DANICA+probe Ql (Unsp spec) Not detected Normal NOT DETECTED [facility] Comment on above: Result Comment: When [...] for this test is supported by the [employer] Worker of Health and Human Service's declaration that [...] used). Performed By: #### I NSULT #### [facility] [address] [place] [address] Dr. Deepika Terrell ER URINE PROFILEon 3 Bilirubin Ql (U) Negative Normal NEGATIVE [facility] Comment on above: Performed By: #### E RUR #### [facility] [address] [place] [address] Dr. Deepika Terrell Clarity (U) CLEAR Normal CLEAR [facility] Comment on above: Performed By: #### E RUR #### [facility] [address] [place] [address] Dr. Deepika Terrell Color (U) LT. YELLOW Normal YELLOW [facility] Comment on above: Performed By: #### E RUR #### [facility] [address] [place] [address] Dr. Deepika Terrell ERUAHD A micrscopic examina tion will be performed if indicated. Normal [facility] Comment on above: Performed By: #### E RUR #### [facility] [address] [place] [address] Dr. Deepika Terrell Glucose Ql (U) Negative Normal NEGATIVE [facility] Comment on above: Performed By: #### E RUR #### [facility] [address] [place] [address] Dr. Deepika Terrell Hemoglobin Ql (U) Negative Normal NEGATIVE [facility] Comment on above: Performed By: #### E RUR #### [facility] [address] [place] [address] Dr. Deepika Terrell Ketones Ql (U) Negative Normal NEGATIVE [facility] Comment on above: Performed By: #### E RUR #### [facility] [address] [place] [address] Dr. Deepika Terrell LEUKOCYTES Negative Normal NEGATIVE [facility] Comment on above: Performed By: #### E RUR #### [facility] [address] [place] [address] Dr. Deepika Terrell Nitrite Ql (U) Negative Normal NEGATIVE [facility] Comment on above: Performed By: #### E RUR #### [facility] [address] [place] [address] Dr. Deepika Terrell pH (U) 6.0 [pH] Normal 5-9 [facility] Comment on above: Performed By: #### E RUR #### [facility] [address] [place] [address] Dr. Deepika Terrell SPEC GRAVITY 1.010 Normal 1.005-<=1.02 5 [facility] Comment on above: Performed By: #### E RUR #### [facility] [address] [place] [address] Dr. Deepika Terrell UA PROTEIN Negative Normal NEGATIVE/ TRACE [facility] Comment on above: Performed By: #### E RUR #### [facility] [address] [place] [address] Dr. Deepika Terrell UR MICRO IND NOT INDICATED Normal [facility] Comment on above: Performed By: #### E RUR #### [facility] [address] [place] [address] Dr. Deepika Terrell Urobilinogen Qn (U) 0.2 {Jesus'U}/dL Normal 0.2 - 1.0 [facility] Comment on above: Performed By: #### E RUR #### [facility] [address] [place] [address] Dr. Deepika Terrell GLYCOHEMOGLOBIN A1Con 2022 ADA RECOMMENDATION SEE BELOW Normal [facility] Comment on above: Result Comment: ADA RECOMMENDED LIMIT 4.0 - 6.0 ADA THERAPEUTIC TARGET < 7.0 ACTION SUGGESTED > 7.0 Performed By: #### I NSULT #### [facility] [address] [place] [address] Dr. Deepika Terrell Glucose [Mass/Vol] 134 mg/dL Normal [facility] Comment on above: Performed By: #### I NSULT #### [facility] [address] [place] [address] Dr. Deepika Terrell HbA1c (Bld) [Mass fraction] 6.3 % Critically high 4.5-6.2 [facility] Comment on above: Performed By: #### I NSULT #### [facility] [address] [place] [address] Dr. Deepika Terrell POINT OF CARE GLUCOSEon 05-09 Glucose [Mass/Vol] 175 mg/dL Critically high 74-106 [facility] Comment on above: Performed By: #### I NSULT #### [facility] [address] [address] [address] Deepika Terrell Glucose [Mass/Vol] 151 mg/dL Critically high 74-106 [facility] Comment on above: Performed By: #### I NSULT #### [facility] [address] [place] [address] Dr. Deepika Terrell Glucose [Mass/Vol] 95 mg/dL Normal 74-106 [facility] Comment on above: Performed By: #### C BC #### [facility] [address] [place] [address] Dr. Deepika Terrell Glucose [Mass/Vol] 83 mg/dL Normal 74-106 [facility] Comment on above: Performed By: #### I NSULT #### [facility] [address] [place] [address] Dr. Deepika Terrell Glucose [Mass/Vol] 63 mg/dL Critically low 74-106 [facility] Comment on above: Performed By: #### P ERSMR #### [facility] [address] [place] [address] Dr. Deepika Terrell Glucose [Mass/Vol] 48 mg/dL Critically low 74-106 [facility] Comment on above: Result Comment: Resu lt Not Confirmed Performed By: #### B MP #### [facility] [address] [place] [address] Dr. Deepika Terrell Glucose [Mass/Vol] 62 mg/dL Critically low 74-106 [facility] Comment on above: Performed By: #### B MP #### [facility] [address] [place] [address] Dr. Deepika Terrell Glucose [Mass/Vol] 61 mg/dL Critically low 74-106 [facility] Comment on above: Performed By: #### C PEPT #### [facility] [address] [place] [address] Dr. Deepika Terrell PROF CHEM 8 (BAS METB)on Anion gap [Moles/Vol] 11.6 mmol/L Normal [facility] Comment on above: Performed By: #### B MP #### [facility] [address] [address] [address] Deepika Terrell Calcium [Mass/Vol] 8.2 mg/dL Critically low 8.5-10.1 [facility] Comment on above: Performed By: #### B MP #### [facility] [address] [place] [address] Dr. Deepika Terrell Chloride [Moles/Vol] 111 mmol/L Critically high 98-107 [facility] Comment on above: Performed By: #### B MP #### [facility] [address] [place] [address] Dr. Deepika Terrell CO2 [Moles/Vol] 23.5 mmol/L Normal 21.0-32.0 [facility] Comment on above: Performed By: #### B MP #### [facility] [address] [place] [address] Dr. Deepika Terrell Creatinine [Mass/Vol] 1.32 mg/dL Critically high 0.70-1.30 [facility] Comment on above: Performed By: #### B MP #### [facility] [address] [place] [address] Dr. Deepika Terrell EGFR-AF BURKINAN >60 Normal >=60 [facility] Comment on above: Performed By: #### B MP #### [facility] [address] [place] [address] Dr. Deepika Terrell EGFR-NON AF BURKINAN 51 mL/min/1.73m2 Critically low >=60 [facility] Comment on above: Performed By: #### B MP #### [facility] [address] [place] [address] Dr. Deepika Terrell Glucose [Mass/Vol] 91 mg/dL Normal 74-106 [facility] Comment on above: Performed By: #### B MP #### [facility] [address] [place] [address] Dr. Deepika Terrell Potassium [Moles/Vol] 4.1 mmol/L Normal 3.5-5.1 [facility] Comment on above: Performed By: #### B MP #### [facility] [address] [place] [address] Dr. Deepika Terrell Sodium [Moles/Vol] 142 mmol/L Normal 136-145 [facility] Comment on above: Performed By: #### B MP #### [facility] [address] [place] [address] Dr. Deepika Terrell Urea nitrogen [Mass/Vol] 29.0 mg/dL Critically high 7.0-18.0 [facility] Comment on above: Performed By: #### B MP #### [facility] [address] [place] [address] Dr. Deepika Terrell Urea nitrogen/Creatinin e [Mass ratio] 22.0 mg/mg Normal [facility] Comment on above: Performed By: #### B MP #### [facility] [address] [place] [address] Dr. Deepika Terrell AMMONIAon 06-01-2022 Ammonia (P) [Moles/Vol] 17 umol/L Normal 11-32 [facility] Comment on above: Performed By: #### C BC #### [facility] [address] [place] [address] Dr. Deepika Terrell BNPon 06-01-2022 Natriuretic peptide B (Bld) [Mass/Vol] 132.0 pg/mL Normal <=1,800.0 [facility] Comment on above: Performed By: #### C BC #### [facility] [address] [place] [address] Dr. Deepika Terrell CBC AUTO DIFFon 06-01-2022 BASO # 0.1 103/ul Normal 0.0-0.1 [facility] Comment on above: Performed By: #### C BC #### [facility] [address] [address] [address] Deepika Terrell Basophils/100 WBC (Bld) 0.3 % Normal 0.2-2.0 [facility] Comment on above: Performed By: #### C BC #### [facility] [address] [address] [address] Deepika Terrell EO # 0.1 103/ul Normal 0.0-0.7 [facility] Comment on above: Performed By: #### C BC #### [facility] [address] [address] [address] Deepika Terrell Eosinophils/100 WBC (Bld) 0.9 % Normal 0.9-7.0 [facility] Comment on above: Performed By: #### C BC #### [facility] [address] [address] [address] Deepika Terrell Erythrocyte distribution width (RBC) [Ratio] 14.7 % Normal 11.0-15.0 [facility] Comment on above: Performed By: #### C BC #### [facility] [address] [address] [address] Deepika Terrell Hematocrit (Bld) [Volume fraction] 33.6 % Critically low 42.0-54.0 [facility] Comment on above: Performed By: #### C BC #### [facility] [address] [address] [address] Deepika Terrell Hemoglobin (Bld) [Mass/Vol] 10.9 g/dL Critically low 14.0-18.0 [facility] Comment on above: Performed By: #### C BC #### [facility] [address] [address] [address] Deepika Terrell IG # 0.07 10e3/ul Critically high 0.00-0.03 [facility] Comment on above: Performed By: #### C BC #### [facility] [address] [address] [address] Deepika Terrell IG % 0.5 % Normal 0.0-0.5 [facility] Comment on above: Performed By: #### C BC #### [facility] [address] [address] [address] Deepika Terrell LYMPH # 1.5 103/ul Normal 1.2-3.8 [facility] Comment on above: Performed By: #### C BC #### [facility] [address] [place] [address] Dr. Deepika Terrell Lymphocytes/100 WBC (Bld) 10.3 % Critically low 20.5-60.0 [facility] Comment on above: Performed By: #### C BC #### [facility] [address] [place] [address] Dr. Deepika Terrell MANUAL DIFF REQ NO Normal [facility] Comment on above: Performed By: #### C BC #### [facility] [address] [place] [address] Dr. Deepika Terrell MCH (RBC) [Entitic mass] 29.9 pg Normal 25.9-34.0 [facility] Comment on above: Performed By: #### C BC #### [facility] [address] [place] [address] Dr. Deepika Terrell MCHC (RBC) [Mass/Vol] 32.4 g/dL Normal 29.9-35.2 [facility] Comment on above: Performed By: #### C BC #### [facility] [address] [place] [address] Dr. Deepika Terrell MCV (RBC) [Entitic vol] 92.1 fL Normal 80.0-94.0 [facility] Comment on above: Performed By: #### C BC #### [facility] [address] [place] [address] Dr. Deepika Terrell MONO # 1.3 103/ul Critically high 0.3-0.8 [facility] Comment on above: Performed By: #### C BC #### [facility] [address] [place] [address] Dr. Deepika Terrell Monocytes/100 WBC (Bld) 8.9 % Normal 1.7-12.0 [facility] Comment on above: Performed By: #### C BC #### [facility] [address] [address] [address] Deepika Terrell NEUT # 11.8 103/ul Critically high 1.4-6.5 [facility] Comment on above: Performed By: #### C BC #### [facility] [address] [address] [address] Deepika Terrell Neutrophils/100 WBC (Bld) 79.1 % Critically high 43.0-75.0 [facility] Comment on above: Performed By: #### C BC #### [facility] [address] [address] [address] Deepika Terrell Platelet mean volume (Bld) [Entitic vol] 11.4 fL Normal 9.5-13.5 [facility] Comment on above: Performed By: #### C BC #### [facility] [address] [place] [address] Dr. Deepika Terrell PLT 324 103/ul Normal 150-450 [facility] Comment on above: Performed By: #### C BC #### [facility] [address] [place] [address] Dr. Deepika Terrell RBC 3.65 106/ul Critically low 4.70-6.10 [facility] Comment on above: Performed By: #### C BC #### [facility] [address] [address] [address] Deepika Terrell WBC 14.9 103/ul Critically high 4.0-11.0 [facility] Comment on above: Performed By: #### C BC #### [facility] [address] [place] [address] Dr. Deepika Terrell POINT OF CARE GLUCOSEon 05-09 Glucose [Mass/Vol] 29 mg/dL Critically low 74-106 Th [facility] Comment on above: Result Comment: Resu lt Not Confirmed Performed By: #### B MP #### [facility] [address] [place] [address] Dr. Deepika Terrell Glucose [Mass/Vol] 28 mg/dL Critically low 74-106 Th [facility] Comment on above: Result Comment: Will Repeat Test Performed By: #### C PEPT #### [facility] [address] [place] [address] Dr. Deepika Terrell PROF 14(COMP METB)on 023 Albumin [Mass/Vol] 3.3 g/dL Critically low 3.4-5.0 [facility] Comment on above: Performed By: #### C BC #### [facility] [address] [place] [address] Dr. Deepika Terrell Albumin/Globulin [Mass ratio] 1.0 {ratio} Normal [facility] Comment on above: Performed By: #### C BC #### [facility] [address] [place] [address] Dr. Deepika Terrell ALP [Catalytic activity/Vol] 75 U/L Normal 46-116 [facility] Comment on above: Performed By: #### C BC #### [facility] [address] [place] [address] Dr. Deepika Terrell ALT [Catalytic activity/Vol] 34 U/L Normal 16-63 [facility] Comment on above: Performed By: #### C BC #### [facility] [address] [place] [address] Dr. Deepika Terrell Anion gap [Moles/Vol] 14.0 mmol/L Normal [facility] Comment on above: Performed By: #### C BC #### [facility] [address] [place] [address] Dr. Deepika Terrell AST [Catalytic activity/Vol] 19 U/L Normal 15-37 [facility] Comment on above: Performed By: #### C BC #### [facility] [address] [place] [address] Dr. Deepika Terrell Bilirubin [Mass/Vol] 0.2 mg/dL Normal 0.2-1.0 [facility] Comment on above: Performed By: #### C BC #### [facility] [address] [place] [address] Dr. Deepika Terrell Calcium [Mass/Vol] 8.6 mg/dL Normal 8.5-10.1 [facility] Comment on above: Performed By: #### C BC #### [facility] [address] [address] [address] Deepika Terrell Chloride [Moles/Vol] 109 mmol/L Critically high 98-107 [facility] Comment on above: Performed By: #### C BC #### [facility] [address] [place] [address] Dr. Deepika Terrell CO2 [Moles/Vol] 23.9 mmol/L Normal 21.0-32.0 [facility] Comment on above: Performed By: #### C BC #### [facility] [address] [place] [address] Dr. Deepika Terrell Creatinine [Mass/Vol] 1.59 mg/dL Critically high 0.70-1.30 [facility] Comment on above: Performed By: #### C BC #### [facility] [address] [place] [address] Dr. Deepika Terrell EGFR-AF BURKINAN 50 mL/min/1.73m2 Critically low >=60 [facility] Comment on above: Performed By: #### C BC #### [facility] [address] [place] [address] Dr. Deepika Terrell EGFR-NON AF BURKINAN 41 mL/min/1.73m2 Critically low >=60 [facility] Comment on above: Performed By: #### C BC #### [facility] [address] [place] [address] Dr. Deepika Terrell Globulin (S) [Mass/Vol] 3.3 g/dL Normal [facility] Comment on above: Performed By: #### C BC #### [facility] [address] [place] [address] Dr. Deepika Terrell Glucose [Mass/Vol] 26 mg/dL Critically low 74-106 Th [facility] Comment on above: Performed By: #### C BC #### [facility] [address] [place] [address] Dr. Deepika Terrell Potassium [Moles/Vol] 3.9 mmol/L Normal 3.5-5.1 [facility] Comment on above: Performed By: #### C BC #### [facility] [address] [place] [address] Dr. Deepika Terrell Protein [Mass/Vol] 6.6 g/dL Normal 6.4-8.2 [facility] Comment on above: Performed By: #### C BC #### [facility] [address] [place] [address] Dr. Deepika Terrell Sodium [Moles/Vol] 143 mmol/L Normal 136-145 [facility] Comment on above: Performed By: #### C BC #### [facility] [address] [address] [address] Deepika Terrell Urea nitrogen [Mass/Vol] 34.0 mg/dL Critically high 7.0-18.0 [facility] Comment on above: Performed By: #### C BC #### [facility] [address] [place] [address] Dr. Deepika Terrell Urea nitrogen/Creatinin e [Mass ratio] 21.4 mg/mg Normal [facility] Comment on above: Performed By: #### C BC #### [facility] [address] [place] [address] Dr. Deepika Terrell TROPONIN, HIGH SENSITIVITYon 06-01-2022 HSTROP 13.2 pg/mL Normal 4.0-76.1 [facility] Comment on above: Result Comment: CUT- OFF POINTS HAVE BEEN ESTABLISHED BASED ON THE FOURTH UNIVERSAL DEFINITIONS OF MYOCARDIAL INFARCTION. THE UPPER REFERENCE LIMIT (URL) OF TROPONIN, DEFINED THE 99TH PERCENTILE OF cTnI DISTRIBUTION IN A REFERENCE POPULATION, HAS BEEN CONFIRMED THE DECISION THRESHOLD FOR SC DIAGNOSIS. Performed By: #### B MP #### [facility] [address] [place] [address] Dr. Deepika Terrell GI PANEL (PCR)on 05-30-2022 Adenovirus F 40/41 Not detected Normal NOT DETECTED [facility] Comment on above: Performed By: #### P ERSMR #### [facility] [address] [place] [address] Dr. Deepika Terrell Astrovirus Not detected Normal NOT DETECTED [facility] Comment on above: Performed By: #### P ERSMR #### [facility] [address] [place] [address] Dr. Deepika Terrell C. Diff toxin A/B Not detected Normal NOT DETECTED [facility] Comment on above: Performed By: #### P ERSMR #### [facility] [address] [place] [address] Dr. Deepika Terrell Campylobacter Not detected Normal NOT DETECTED [facility] Comment on above: Performed By: #### P ERSMR #### [facility] [address] [address] [address] Deepika Terrell Cryptosporidium Not detected Normal NOT DETECTED [facility] [place] [facility] Comment on above: Performed By: #### P ERSMR #### [facility] [address] [place] [address] Dr. Deepika Terrell Cyclos. Cayetanensis Not detected Normal NOT DETECTED [facility] Comment on above: Performed By: #### P ERSMR #### [facility] [address] [place] [address] Dr. Deepika Terrell E. Coli O157 Not Applicable Normal Not Applicable [facility] Comment on above: Performed By: #### P ERSMR #### [facility] [address] [place] [address] Dr. Deepika Terrell E. histolytica Not detected Normal NOT DETECTED [facility] Comment on above: Performed By: #### P ERSMR #### [facility] [address] [place] [address] Dr. Deepika Terrell EAEC Not detected Normal NOT DETECTED [facility] Comment on above: Performed By: #### P ERSMR #### [facility] [address] [place] [address] Dr. Deepika Terrell EIEC Not detected Normal NOT DETECTED [facility] Comment on above: Performed By: #### P ERSMR #### [facility] [address] [address] [address] Deepika Terrell EPEC Not detected Normal NOT DETECTED [facility] Comment on above: Performed By: #### P ERSMR #### [facility] [address] [place] [address] Dr. Deepika Terrell ETEC Not detected Normal NOT DETECTED [facility] Comment on above: Performed By: #### P ERSMR #### [facility] [address] [address] [address] Deepika Reardon Lamblia Not detected Normal NOT DETECTED [facility] Comment on above: Performed By: #### P ERSMR #### [facility] [address] [address] [address] Deepika WOLFE CONTROLS PASSED Normal [facility] Comment on above: Performed By: #### P ERSMR #### [facility] [address] [address] [address] Deepika RYAN HEADER GI PANEL BACTERIA Normal [facility] Comment on above: Performed By: #### P ERSMR #### [facility] [address] [address] [address] Deepika CACERES ECOLI GI PANEL DIARRHEAGEN IC E.COLI / SHIGELLA Normal [facility] Comment on above: Performed By: #### P ERSMR #### [facility] [address] [address] [address] Deepika CACERES INFO SEE BELOW Normal [facility] Comment on above: Result Comment: EAEC - Enteroaggregative E. Coli EPEC- Enteropathogenic E. Coli ETEC- Enterotoxigenic E. Coli lt/st STEC- Shigella-like toxin-producing E. Coli stx1/stx2 EIEC- Shigella/Enteroinvasive E. Coli Performed By: #### P ERSMR #### [facility] [address] [address] [address] Deepika CACERES PARASITES GI PANEL PARASITES Normal [facility] Comment on above: Performed By: #### P ERSMR #### [facility] [address] [address] [address] Deepika CACERES VIRUS GI PANEL VIRUSES Normal [facility] [place] [facility] Comment on above: Performed By: #### P ERSMR #### [facility] [address] [address] [address] Deepika Terrell Norovirus GI/GII Not detected Normal NOT DETECTED [facility] Comment on above: Performed By: #### P ERSMR #### [facility] [address] [place] [address] Dr. Deepika Meredith Shigelloides Not detected Normal NOT DETECTED [facility] Comment on above: Performed By: #### P ERSMR #### [facility] [address] [place] [address] Dr. Deepika Terrell Rotavirus A Not detected Normal NOT DETECTED [facility] Comment on above: Performed By: #### P ERSMR #### [facility] [address] [place] [address] Dr. Deepika Terrell Salmonella Not detected Normal NOT DETECTED [facility] Comment on above: Performed By: #### P ERSMR #### [facility] [address] [place] [address] Dr. Deepika Terrell Sapovirus Not detected Normal NOT DETECTED [facility] Comment on above: Performed By: #### P ERSMR #### [facility] [address] [place] [address] Dr. Deepika Terrell STEC Not detected Normal NOT DETECTED [facility] Comment on above: Performed By: #### P ERSMR #### [facility] [address] [place] [address] Dr. Deepika Terrell Vibrio Not detected Normal NOT DETECTED [facility] Comment on above: Performed By: #### P ERSMR #### [facility] [address] [place] [address] Dr. Deepika Terrell Vibrio Cholera Not detected Normal NOT DETECTED [facility] Comment on above: Performed By: #### P ERSMR #### [facility] [address] [place] [address] Dr. Deepika Terrell Y. Enterocolitica Not detected Normal NOT DETECTED [facility] Comment on above: Performed By: #### P ERSMR #### [facility] [address] [place] [address] Dr. Deepika Terrell PROF CHEM 8 (BAS METB)on Anion gap [Moles/Vol] 13.9 mmol/L Normal [facility] Comment on above: Performed By: #### P ERSMR #### [facility] [address] [address] [address] Depeika Terrell Calcium [Mass/Vol] 8.9 mg/dL Normal 8.5-10.1 [facility] Comment on above: Performed By: #### P ERSMR #### [facility] [address] [address] [address] Deepika Terrell Chloride [Moles/Vol] 104 mmol/L Normal 98-107 [facility] Comment on above: Performed By: #### P ERSMR #### [facility] [address] [address] [address] Deepika Terrell CO2 [Moles/Vol] 26.3 mmol/L Normal 21.0-32.0 [facility] Comment on above: Performed By: #### P ERSMR #### [facility] [address] [address] [address] Deepika Terrell Creatinine [Mass/Vol] 1.70 mg/dL Critically high 0.70-1.30 [facility] Comment on above: Performed By: #### P ERSMR #### [facility] [address] [address] [address] Deepika Terrell EGFR-AF BURKINAN 47 mL/min/1.73m2 Critically low >=60 [facility] Comment on above: Performed By: #### P ERSMR #### [facility] [address] [address] [address] Deepika Terrell EGFR-NON AF BURKINAN 38 mL/min/1.73m2 Critically low >=60 [facility] Comment on above: Performed By: #### P ERSMR #### [facility] [address] [address] [address] Deepika Terrell Glucose [Mass/Vol] 62 mg/dL Critically low 74-106 [facility] Comment on above: Performed By: #### P ERSMR #### [facility] [address] [address] [address] Deepika Terrell Potassium [Moles/Vol] 4.2 mmol/L Normal 3.5-5.1 [facility] Comment on above: Performed By: #### P ERSMR #### [facility] [address] [place], [place] [address] Dr. Deepika Terrell Sodium [Moles/Vol] 140 mmol/L Normal 136-145 [facility] Comment on above: Performed By: #### P ERSMR #### [facility] [address] [address] [address] Deepika Terrell Urea nitrogen [Mass/Vol] 34.0 mg/dL Critically high 7.0-18.0 [facility] Comment on above: Performed By: #### P ERSMR #### [facility] [address] [place], [place] [address] Dr. Deepika Terrell Urea nitrogen/Creatinin e [Mass ratio] 20.0 mg/mg Normal [facility] Comment on above: Performed By: #### P ERSMR #### [facility] [address] [address] [address] Deepika Terrell ECHOCARDIO M/2D COMPLETEon 1 06-02-2021 ECHOCARDIO M/2D COMPLETE Patient: LILIANA NATARAJAN Exam Date: 04/01/2022 : 1935 Gender:M Ordering : ARNEL BAEZA Admission #: [id number] Family : Order #: [id number] CLICK HERE TO VIEW EXAM ECHOCARDIOGRAM REPORT [...] M.D. on 04/09/2022 at 08:52 Normal [facility] CBC AUTO DIFFon 02-05-2022 BASO # 0.1 103/ul Normal 0.0-0.1 [facility] Comment on above: Performed By: #### C BC #### [facility] [address] [place] [address] Dr. Deepika Terrell Basophils/100 WBC (Bld) 0.5 % Normal 0.2-2.0 [facility] Comment on above: Performed By: #### C BC #### [facility] [address] [place] [address] Dr. Deepika Terrell EO # 0.3 103/ul Normal 0.0-0.7 [facility] Comment on above: Performed By: #### C BC #### [facility] [address] [place] [address] Dr. Deepika Terrell Eosinophils/100 WBC (Bld) 3.3 % Normal 0.9-7.0 [facility] Comment on above: Performed By: #### C BC #### [facility] [address] [place] [address] Dr. Deepika Terrell Erythrocyte distribution width (RBC) [Ratio] 14.0 % Normal 11.0-15.0 [facility] Comment on above: Performed By: #### C BC #### [facility] [address] [place] [address] Dr. Deepika Terrell Hematocrit (Bld) [Volume fraction] 41.2 % Critically low 42.0-54.0 [facility] Comment on above: Performed By: #### C BC #### [facility] [address] [place] [address] Dr. Deepika Terrell Hemoglobin (Bld) [Mass/Vol] 13.4 g/dL Critically low 14.0-18.0 [facility] Comment on above: Performed By: #### C BC #### [facility] [address] [place] [address] Dr. Deepika Terrell IG # 0.04 10e3/ul Critically high 0.00-0.03 [facility] Comment on above: Performed By: #### C BC #### [facility] [address] [place] [address] Dr. Deepika Terrell IG % 0.4 % Normal 0.0-0.5 [facility] Comment on above: Performed By: #### C BC #### [facility] [address] [place] [address] Dr. Deepika Terrell LYMPH # 3.4 103/ul Normal 1.2-3.8 [facility] Comment on above: Performed By: #### C BC #### [facility] [address] [place] [address] Dr. Deepika Terrell Lymphocytes/100 WBC (Bld) 36.2 % Normal 20.5-60.0 [facility] Comment on above: Performed By: #### C BC #### [facility] [address] [place] [address] Dr. Deepika Terrell MANUAL DIFF REQ NO Normal [facility] Comment on above: Performed By: #### C BC #### [facility] [address] [place] [address] Dr. Deepiak Terrell MCH (RBC) [Entitic mass] 30.9 pg Normal 25.9-34.0 [facility] Comment on above: Performed By: #### C BC #### [facility] [address] [place] [address] Dr. Deepika Terrell MCHC (RBC) [Mass/Vol] 32.5 g/dL Normal 29.9-35.2 [facility] Comment on above: Performed By: #### C BC #### [facility] [address] [place] [address] Dr. Deepika Terrell MCV (RBC) [Entitic vol] 94.9 fL Critically high 80.0-94.0 [facility] Comment on above: Performed By: #### C BC #### [facility] [address] [place] [address] Dr. Deepika Terrell MONO # 0.9 103/ul Critically high 0.3-0.8 [facility] Comment on above: Performed By: #### C BC #### [facility] [address] [address] [address] Deepika Terrell Monocytes/100 WBC (Bld) 9.9 % Normal 1.7-12.0 [facility] Comment on above: Performed By: #### C BC #### [facility] [address] [place] [address] Dr. Deepika Terrell NEUT # 4.7 103/ul Normal 1.4-6.5 [facility] Comment on above: Performed By: #### C BC #### [facility] [address] [place] [address] Dr. Deepika Terrell Neutrophils/100 WBC (Bld) 49.7 % Normal 43.0-75.0 [facility] Comment on above: Performed By: #### C BC #### [facility] [address] [place] [address] Dr. Deepika Terrell Platelet mean volume (Bld) [Entitic vol] 10.1 fL Normal 9.5-13.5 [facility] Comment on above: Performed By: #### C BC #### [facility] [address] [place] [address] Dr. Deepika Terrell PLT 290 103/ul Normal 150-450 [facility] Comment on above: Performed By: #### C BC #### [facility] [address] [place] [address] Dr. Deepika Terrell RBC 4.34 106/ul Critically low 4.70-6.10 [facility] Comment on above: Performed By: #### C BC #### [facility] [address] [place] [address] Dr. Deepika Terrell WBC 9.4 103/ul Normal 4.0-11.0 [facility] Comment on above: Performed By: #### C BC #### [facility] [address] [address] [address] Deepika Terrell FREE T3on 02-05-2022 FREE T3 1.83 pg/mlL Critically low 2.18-3.98 [facility] Comment on above: Performed By: #### C PEPT #### [facility] [address] [address] [address] Deepika Terrell GLYCOHEMOGLOBIN A1Con 2021 ADA RECOMMENDATION SEE BELOW Normal [facility] Comment on above: Result Comment: ADA RECOMMENDED LIMIT 4.0 - 6.0 ADA THERAPEUTIC TARGET < 7.0 ACTION SUGGESTED > 7.0 Performed By: #### A 1C #### [facility] [address] [place] [address] Dr. Deepika Terrell Glucose [Mass/Vol] 114 mg/dL Normal [facility] Comment on above: Performed By: #### A 1C #### [facility] [address] [place] [address] Dr. Deepika Terrell HbA1c (Bld) [Mass fraction] 5.6 % Normal 4.5-6.2 [facility] Comment on above: Performed By: #### A 1C #### [facility] [address] [place] [address] Dr. Deepika Terrell LIPID PROFILEon 02-05-2022 CHOL-HDL RATIO NORM SEE BELOW Normal [facility] Comment on above: Result Comment: 3.3 - 4.4 LOW RISK 4.4 - 7.1 AVERAGE RISK 7.1 - 11.0 MODERATE RISK >11.0 HIGH RISK Performed By: #### C PEPT #### [facility] [address] [place] [address] Dr. Deepika Terrell Cholesterol [Mass/Vol] 187 mg/dL Normal <=200 [facility] Comment on above: Performed By: #### C PEPT #### [facility] [address] [place] [address] Dr. Deepika Terrell Cholesterol in HDL [Mass/Vol] 49 mg/dL Normal 40-60 [facility] Comment on above: Performed By: #### C PEPT #### [facility] [address] [address] [address] Deepika Terrell Cholesterol in LDL [Mass/Vol] 123.8 mg/dL Normal [facility] Comment on above: Performed By: #### C PEPT #### [facility] [address] [place] [address] Dr. Deepika Terrell Cholesterol.total/ Cholesterol in HDL [Mass ratio] 3.8 {ratio} Normal [facility] Comment on above: Performed By: #### C PEPT #### [facility] [address] [place] [address] Dr. Deepika Terrell HDL NORMAL > or = 60 mg/dl - LO W CARDIOVASCULAR RISK <40 mg/dl - HIGH CARDIOVASCULAR RISK Normal [facility] Comment on above: Performed By: #### C PEPT #### [facility] [address] [place] [address] Dr. Deepika Terrell LDL CALC NORMAL SEE BELOW Normal [facility] Comment on above: Result Comment: <100 mg/dl OPTIMAL 100 - 129 mg/dl NEAR OR ABOVE OPTIMAL 130 - 159 mg/dl BORDERLINE HIGH 160 - 189 mg/dl HIGH >190 mg/dl VERY HIGH Performed By: #### C PEPT #### [facility] [address] [place] [address] Dr. Deepika Terrell Triglyceride [Mass/Vol] 71 mg/dL Normal <=150 [facility] Comment on above: Performed By: #### C PEPT #### [facility] [address] [place] [address] Dr. Deepika Terrell VLDL CALC 14.2 mg/dL Normal [facility] Comment on above: Performed By: #### C PEPT #### [facility] [address] [place] [address] Dr. Deepika Terrell PROF 14(COMP METB)on 022 Albumin [Mass/Vol] 4.0 g/dL Normal 3.4-5.0 [facility] Comment on above: Performed By: #### C PEPT #### [facility] [address] [place] [address] Dr. Deepika Terrell Albumin/Globulin [Mass ratio] 1.2 {ratio} Normal [facility] Comment on above: Performed By: #### C PEPT #### [facility] [address] [place] [address] Dr. Deepika Terrell ALP [Catalytic activity/Vol] 61 U/L Normal 46-116 [facility] Comment on above: Performed By: #### C PEPT #### [facility] [address] [place] [address] Dr. Deepika Terrell ALT [Catalytic activity/Vol] 38 U/L Normal 16-63 [facility] Comment on above: Performed By: #### C PEPT #### [facility] [address] [place] [address] Dr. Deepika Terrell Anion gap [Moles/Vol] 8.1 mmol/L Normal [facility] Comment on above: Performed By: #### C PEPT #### [facility] [address] [place] [address] Dr. Deepika Terrell AST [Catalytic activity/Vol] 19 U/L Normal 15-37 [facility] Comment on above: Performed By: #### C PEPT #### [facility] [address] [place] [address] Dr. Deepika Terrell Bilirubin [Mass/Vol] 0.4 mg/dL Normal 0.2-1.0 [facility] [facility] Comment on above: Performed By: #### C PEPT #### [facility] [address] [place] [address] Dr. Deepika Terrell Calcium [Mass/Vol] 9.4 mg/dL Normal 8.5-10.1 [facility] Comment on above: Performed By: #### C PEPT #### [facility] [address] [place] [address] Dr. Deepika Terrell Chloride [Moles/Vol] 104 mmol/L Normal 98-107 [facility] Comment on above: Performed By: #### C PEPT #### [facility] [address] [place] [address] Dr. Deepika Terrell CO2 [Moles/Vol] 32.6 mmol/L Critically high 21.0-32.0 [facility] Comment on above: Performed By: #### C PEPT #### [facility] [address] [address] [address] Deepika Terrell Creatinine [Mass/Vol] 1.63 mg/dL Critically high 0.70-1.30 [facility] Comment on above: Performed By: #### C PEPT #### [facility] [address] [address] [address] Deepika Terrell EGFR-AF BURKINAN 49 mL/min/1.73m2 Critically low >=60 [facility] Comment on above: Performed By: #### C PEPT #### [facility] [address] [address] [address] Deepika Terrell EGFR-NON AF BURKINAN 40 mL/min/1.73m2 Critically low >=60 [facility] Comment on above: Performed By: #### C PEPT #### [facility] [address] [address] [address] Deepika Terrell Globulin (S) [Mass/Vol] 3.3 g/dL Normal [facility] Comment on above: Performed By: #### C PEPT #### [facility] [address] [address] [address] Deepika Terrell Glucose [Mass/Vol] 127 mg/dL Critically high 74-[address] [facility] Comment on above: Performed By: #### C PEPT #### [facility] [address] [address] [address] Deepika Terrell Potassium [Moles/Vol] 4.7 mmol/L Normal 3.5-5.1 [facility] Comment on above: Performed By: #### C PEPT #### [facility] [address] [address] [address] Deepika Terrell Protein [Mass/Vol] 7.3 g/dL Normal 6.4-8.2 [facility] Comment on above: Performed By: #### C PEPT #### [facility] [address] [address] [address] Deepika Terrell Sodium [Moles/Vol] 140 mmol/L Normal 136-145 [facility] Comment on above: Performed By: #### C PEPT #### [facility] [address] [address] [address] Deepika Terrell Urea nitrogen [Mass/Vol] 37.0 mg/dL Critically high 7.0-18.0 [facility] Comment on above: Performed By: #### C PEPT #### [facility] [address] [place], [place] [address] Dr. Deepika Terrell Urea nitrogen/Creatinin e [Mass ratio] 22.7 mg/mg Normal [facility] Comment on above: Performed By: #### C PEPT #### [facility] [address] [address] [address] Deepika Terrell T4on 02-05-2022 T4 [Mass/Vol] 8.40 ug/dL Normal 4.50-12.10 [facility] Comment on above: Performed By: #### C PEPT #### [facility] [address] [place] [address] Dr. Deepika Terrell TSHon 02-05-2022 TSH 1.762 uIU/mL Normal 0.358-3.740 [facility] Comment on above: Performed By: #### C PEPT #### [facility] [address] [place] [address] [address] [address] Deepika Terrell US CAMILLA DOP LEG [...] right lower extremity. Electronically authenticated by: DAVID JENKINS Date: 2021-12-26 13:02 Normal [facility] PROF CHEM 8 (BAS METB)on Anion gap [Moles/Vol] 15.1 mmol/L Normal [facility] Comment on above: Performed By: #### B MP #### [facility] [address] [place] [address] Dr. Deepika Terrell Calcium [Mass/Vol] 9.2 mg/dL Normal 8.5-10.1 [facility] Comment on above: Performed By: #### B MP #### [facility] [address] [address] [address] Deepika Terrell Chloride [Moles/Vol] 102 mmol/L Normal 98-107 [facility] Comment on above: Performed By: #### B MP #### [facility] [address] [address] [address] Deepika Terrell CO2 [Moles/Vol] 25.8 mmol/L Normal 21.0-32.0 [facility] Comment on above: Performed By: #### B MP #### [facility] [address] [address] [address] Deepika Terrell Creatinine [Mass/Vol] 1.70 mg/dL Critically high 0.70-1.30 [facility] Comment on above: Performed By: #### B MP #### [facility] [address] [address] [address] Deepika Terrell EGFR-AF BURKINAN 47 mL/min/1.73m2 Critically low >=60 [facility] Comment on above: Performed By: #### B MP #### [facility] [address] [address] [address] Deepika Terrell EGFR-NON AF BURKINAN 38 mL/min/1.73m2 Critically low >=60 [facility] Comment on above: Performed By: #### B MP #### [facility] [address] [address] [address] Deepika Terrell Glucose [Mass/Vol] 75 mg/dL Normal 74-106 [facility] Comment on above: Performed By: #### B MP #### [facility] [address] [address] [address] Deepika Terrell Potassium [Moles/Vol] 4.9 mmol/L Normal 3.5-5.1 [facility] Comment on above: Performed By: #### B MP #### [facility] [address] [address] [address] Deepika Terrell Sodium [Moles/Vol] 138 mmol/L Normal 136-145 [facility] Comment on above: Performed By: #### B MP #### [facility] [address] [place] [address] Dr. Deepika Terrell Urea nitrogen [Mass/Vol] 45.0 mg/dL Critically high 7.0-18.0 [facility] Comment on above: Performed By: #### B MP #### [facility] [address] [place] [address] Dr. Deepika Terrell Urea nitrogen/Creatinin e [Mass ratio] 26.5 mg/mg Normal [facility] Comment on above: Performed By: #### B MP #### [facility] [address] [place] [address] Dr. Deepika Terrell PROF CHEM 8 (BAS METB)on Anion gap [Moles/Vol] 14.2 mmol/L Normal [facility] Comment on above: Performed By: #### B MP #### [facility] [address] [place] [address] Dr. Deepika Terrell Calcium [Mass/Vol] 9.4 mg/dL Normal 8.5-10.1 [facility] Comment on above: Performed By: #### B MP #### [facility] [address] [place] [address] Dr. Deepika Terrell Chloride [Moles/Vol] 106 mmol/L Normal 98-107 [facility] Comment on above: Performed By: #### B MP #### [facility] [address] [place] [address] Dr. Deepika Terrell CO2 [Moles/Vol] 25.1 mmol/L Normal 21.0-32.0 [facility] Comment on above: Performed By: #### B MP #### [facility] [address] [place] [address] Dr. Deepika Terrell Creatinine [Mass/Vol] 1.72 mg/dL Critically high 0.70-1.30 [facility] Comment on above: Performed By: #### B MP #### [facility] [address] [place] [address] Dr. Deepika Terrell EGFR-AF BURKINAN 46 mL/min/1.73m2 Critically low >=60 [facility] Comment on above: Performed By: #### B MP #### [facility] [address] [address] [address] Deepika Terrell EGFR-NON AF BURKINAN 38 mL/min/1.73m2 Critically low >=60 [facility] Comment on above: Performed By: #### B MP #### [facility] [address] [address] [address] Deepika Terrell Glucose [Mass/Vol] 51 mg/dL Critically low 74-106 [facility] Comment on above: Performed By: #### B MP #### [facility] [address] [address] [address] Deepika Terrell Potassium [Moles/Vol] 6.2 mmol/L Critically high 3.5-5.1 [facility] Comment on above: Performed By: #### B MP #### [facility] [address] [address] [address] Deepika Terrell Sodium [Moles/Vol] 138 mmol/L Normal 136-145 [facility] Comment on above: Performed By: #### B MP #### [facility] [address] [address] [address] Deepika Terrell Urea nitrogen [Mass/Vol] 42.0 mg/dL Critically high 7.0-18.0 [facility] Comment on above: Performed By: #### B MP #### [facility] [id number] Deepika Terrell Urea nitrogen/Creatinin e [Mass ratio] 24.4 mg/mg Normal [facility] Comment on above: Performed By: #### B MP #### [facility] [id number] Deepika Terrell MRI LSPINE WO CONon [...] KURT DON Date: 2021-09-14 14:24 Normal [facility] XR LSPINE MIN 4 VIEWSon 06-0 [...] KURT DON Date: 2021-09-10 20:46 Normal [facility] GLYCOHEMOGLOBIN A1Con 2021 ADA RECOMMENDATION SEE BELOW Normal [facility] Comment on above: Result Comment: ADA RECOMMENDED LIMIT 4.0 - 6.0 ADA THERAPEUTIC TARGET < 7.0 ACTION SUGGESTED > 7.0 Performed By: #### C PEPT #### [facility] [address] [place] [address] Dr. Deepika Terrell Glucose [Mass/Vol] 131 mg/dL Normal [facility] Comment on above: Performed By: #### C PEPT #### [facility] [address] [address] [address] Deepika Terrell HbA1c (Bld) [Mass fraction] 6.2 % Normal 4.5-6.2 [facility] Comment on above: Performed By: #### C PEPT #### [facility] [address] [address] [address] Deepika Terrell Blood Urea Nitrogenon 2020 Urea nitrogen [Mass/Vol] 23 mg/dL Normal - [facility] Comment on above: Performed By: #### B AIDA CREAT #### [address] abdomen pelvis w conon CT abdomen pelvis w con [facility] [place] [address] [place] [address] CT Scan Report Signed Patient: Liliana Natarajan MR#: [id number] 47 : 1935 Acct:[id number] Age/Sex: 85 / M ADM Date: 10/26/20 Loc: Room: Type: [facility] Attending Dr: Srinivasan Beaulieu MD Ordering Provider: [...] Eugene Cummings M.D.10/26/2020 4:54 PM Dictation Location: [place] [address] Transcribed By: [facility] 10/26/20 1300 Dictated By: Eugene Cummings II, MD 10/26/20 2520 Signed By: 10/26/20 1659 [facility] Creatinineon 10-26-2020 Creatinine [Mass/Vol] 1.44 mg/dL High 0.64-1.27 [facility] Comment on above: Performed By: #### B AIDA, CREAT #### [facility] [address] Creatinine Clr Calc Pharmacy 39.48 [facility] Comment on above: Result Comment: PERF ORMED BY: [address] [place] [address] PATHOLOGIST EXTENSION SERVICE ADVISOR ANTHONY WEAVER M.D. Performed By: #### B UN, CREAT #### [facility] [address] Estimated GFR ( Zahida 56 [facility] Comment on above: Result Comment: GFR estimated reference range: According to KDOQI guidelines, <60 ml/min/1.73m2 is sufficient to diagnose a patient with chronic kidney disease. Performed By: #### B UN, CREAT #### [facility] [address] Estimated GFR (Non- Am 47 [facility] Comment on above: Performed By: #### B UN, CREAT #### [facility] [address] Glucose Poct Glucometerson 0 10-26-2020 Glucose [Mass/Vol] 100 mg/dL Normal [facility] Comment on above: Result Comment: [facility] Glucose Reference Range is dependent on time and content of last meal. Glucose of more than 200 mg/dL in a nonstressed, ambulatory subject supports the diagnosis of Diabetes Mellitus. PERFORMED BY: [place] [address] PATHOLOGIST EXTENSION SERVICE ADVISOR ANTHONY WEAVER M.D. Performed By: #### G LULS #### Point of Care testing , Junior 10-26-2020 L ------- Specimen: [id number] Received: 10/26/20 Status: SOLEDAD Rosemary Num: [id number] Spec Type: Surgical Subm Dr: Srinivasan Beaulieu MD Tissues: A Colon Biopsy (LEFT COLON BX) Procedures: HE Stain/2, Gross/Micro L4 Patient Age/Sex Location Account Attending Physician Liliana Natarajan 85/Raissa [id number] Srinivasan Beaulieu MD SPEC NUM: [id number] RECD: 10/26/20-1209 STATUS: SOLEDAD RILEY NUM: [id number] AALIYAH: 10/26/20- SUBM DR: Srinivasan Beaulieu MD ENTERED: 10/26/20-[address] [facility] DR: MICHELLE TYPE: Surgical DEPT: S ENTERED BY: [id number] RECV BY: [id number] ORDERED: HE Stain/2, Gross/Micro L4 ORDERED: HE [...] microscopic findings support the above pathologic diagnosis. [id number] Specimen: [id number] Received: 10/26/20 Status: SOLEDAD Riley Num: [id number] Spec Type: Surgical Subm Dr: Srinivasan Beaulieu MD Tissues: A Colon Biopsy (LEFT COLON BX) Procedures: HE Stain/2, Gross/Micro L4 Patient: Liliana Natarajan [id number] (Continued) Signed (signature on file) Anthony Weaver MD 10/27/20 6197 [facility] History and Physicalon 01-15 HIM IP Note OR Family Preservation Worker [facility] Surgical Pathologyon 017 Surgical Pathology (NOTE)[id number] Y LABORATORIESCONSULTING PATHOLOGISTS CORPORATIONANATOMIC [id number] [place], [place] [id number] Fax: SURGICAL PATHOLOGY CONSULTATIONPatient Name: Amy NATARAJAN Rec: [id number] Number: [id number]: 01/15/2017Received: 01/15/2017Reported: 01/16/2017 08:36-- Diagnosis --INTRAOCULAR LENS: GROSS ONLY.Kan Allred M.D.Electronically Signed Out tb04/16/11Clinical InformationPre-op Diagnosis: DISLOCATED IOL LEFT EYE Operative Findings: IOL GROSS ONLYOperation Performed: VITRECTOMY 25 GAUGE LENSECTOMY, KENALOGINJECTIONSource of Specimen1: IOL - GROSS ONLYGross Description LILIANA NATARAJAN IOL GROSS ONLY 0.6 cm long x < 0.1 cm in diameterclear translucent lens with two tags. Gross only. Normal [facility] Vital Signs Date Time Vital Sign Value Performing Clinician Facility 11-13-2023 09:33-0400 Diastolic blood pressure 82 mm[Hg] Linda Montelongo MD Work Phone: [facility] 11-13-2023 09:33-0400 Heart rate 64 /min Linda Montelongo MD Work Phone: [facility] 11-13-2023 09:33-0400 Systolic blood pressure 156 mm[Hg] Linda Montelongo MD Work Phone: [facility] 11-13-2023 09:18-0400 Body height 172.7 cm Linda Montelongo MD Work Phone: [facility] 11-13-2023 09:18-0400 Body mass index (BMI) [Ratio] 27.67 kg/m2 Linda Montelongo MD Work Phone: [facility] 11-13-2023 09:18-0400 Body weight 82.56 kg [facility] 11-13-2023 09:18-0400 SaO2% (BldA) [Mass fraction] 94 % Linda Montelongo [facility] 11-26-2022 09:45-0400 Body height 172.72 cm Chevy Robins Other [facility] Other 11-26-2022 09:45-0400 Body mass index (BMI) [Ratio] 24.63 kg/m2 Chevy Straussy Other [facility] Other 11-26-2022 09:45-0400 Body weight 73.48 kg Chevy Straussy Other [facility] Other 11-26-2022 09:45-0400 Diastolic blood pressure 61 mm[Hg] Chevy Ditty Other [facility] Other 11-26-2022 09:45-0400 Systolic blood pressure 135 mm[Hg] Chevy Ditty Other [facility] Other 12-27-2021 14:00-0400 Body height 172.72 cm Chevy Straussy Other [facility] Other 12-27-2021 14:00-0400 Body mass index (BMI) [Ratio] 28.43 kg/m2 Chevy Srtaussy Other [facility] Other 12-27-2021 14:00-0400 Body weight 84.82 kg Chevy Straussy Other [facility] Other 12-27-2021 14:00-0400 Diastolic blood pressure 75 mm[Hg] Chevy Robins Other [facility] Other 12-27-2021 14:00-0400 Systolic blood pressure 171 mm[Hg] Chevy Straussy Other [facility] Other 11-27-2021 09:51-0400 Diastolic blood pressure 71 mm[Hg] Darien COOK [facility] 11-27-2021 09:51-0400 Mean blood pressure 97 mm[Hg] Darien COOK [facility] 11-27-2021 09:51-0400 Respiratory rate 49 /min Darien REYNOLDS [facility] 11-27-2021 09:51-0400 Systolic blood pressure 150 mm[Hg] Darien COOK [facility] 11-27-2021 09:39-0400 Blood Pressure Location Darien REYNOLDS [facility] 11-27-2021 09:39-0400 Diastolic blood pressure 67 mm[Hg] Darien COOK [facility] 11-27-2021 09:39-0400 Heart rate 45 /min Darien COOK [facility] 11-27-2021 09:39-0400 Systolic blood pressure 168 mm[Hg] Darien COOK [facility] 12-27-2020 14:00-0400 Body height 172.72 cm Chevy Conniereynaldo Other [facility] Other 12-27-2020 14:00-0400 Body mass index (BMI) [Ratio] 28.13 kg/m2 Chevy Robins Other [facility] Other 12-27-2020 14:00-0400 Body weight 83.92 kg Chevy Direynaldo Other [facility] Other Encounters Encounter Date Encounter Type Care Provider Facility Start: 04-30-2024 End: 04-30-2024 ambulatory [facility] Start: 01-05-2024 End: 01-05-2024 ambulatory [facility] Start: 11-13-2023 End: 11-13-2023 Office outpatient new 45 minutes Linda Montelongo MD Work Phone: [facility] Comment on above: Bilateral carotid ar linnea stenosis without cerebral infarction (Primary Dx); Occlusion and stenosis of unspecified carotid artery Start: 11-11-2023 ambulatory Darien REYNOLDS Facility :[facility] Start: 07-07-2023 End: 07-07-2023 ambulatory [facility] Start: 06-16-2023 End: 06-17-2023 ambulatory Darien REYNOLDS Facility:[facility] Start: 06-16-2023 End: 06-16-2023 Patient encounter procedure Darien REYNOLDS [facility] Start: 11-26-2022 End: 11-26-2022 ambulatory Chevy Robins Other [facility] Other Start: 11-26-2022 Patient encounter procedure Chevy Robins [facility] Start: 08-13-2022 End: 08-13-[address] ERIN BERG . Facility:[facility] Start: 08-12-2022 ambulatory Alli Graham LONNY Facility : [facility] Start: 08-09-2022 End: 08-10-[address] ERIN [...] 12-27-2021 End: 12-27-2021 ambulatory Chevy Robins Other [facility] Other Start: 12-27-2021 Patient encounter procedure Chevy Robins [facility] Start: 12-26-2021 End: 12-27-[address] ERIN BERG . Facility:[facility] Start: 11-27-2021 End: 11-27-2021 Patient encounter procedure Darien REYNOLDS [facility] Start: 10-18-2021 End: 10-26-[address] DOCTOR POON Facility:[facility] Start: 09-21-2021 End: 09-22-2021 ambulatory MELYSSA JOYA Facility:[facility] Start: 09-18-2021 End: 09-19-2021 ambulatory MELYSSA JOYA Facility:[facility] Start: 09-14-2021 End: 09-15-[address] ERIN BERG . Facility:[facility] Start: 09-10-2021 End: 09-11-[address] ERIN BERG . Facility:[facility] Start: 08-21-2021 End: 08-22-2021 ambulatory NONE LISTED REQUEST Facility:[facility] Start: 12-27-2020 Patient encounter procedure Chevy Robins [facility] Start: 01-21-2017 End: 01-22-2017 Ambulatory DEFAULT PHYSICIAN Facility:[facility] Start: 01-17-2017 End: 01-18-2017 Ambulatory DEFAULT PHYSICIAN Facility:[facility] Start: 01-15-2017 End: 01-15-2017 Ambulatory CHET NESBITT [facility] Procedures Date Procedure Procedure Detail Performing Clinician Start: 07-07-2023 Follow-up visit Follow-up ARNEL BAEZA Start: 02-05-[address] CHRIS BERG . Comment on above: Performed By: #### C PEPT #### [facility] [address] [place] [address] Dr. Deepika Terrell Start: 12-04-2020 Transurethral water vapor ablation of prostate Darien REYNOLDS Start: 10-12-2020 Cystoscopy Darien DUARTE Start: 01-15-2017 SURGICAL PATHOLOGY [facility] MAGDIEL LAZ Start: 01-15-2017 POC GLUCOSE FINGERSTICK CHETJONO NESBITT Start: 01-15-2017 DISCHARGE PATIENT DYLAN NESBITT Start: 01-15-2017 SURGICAL PATHOLOGY [facility] MAGDIEL NESBITT Start: 01-15-2017 ASSESS [...] C ALC. ANION GAP CHET NESBITT Appendectomy [facility] Cataract (disorder) [facility] Cataract (morphologi c abnormality) [facility] Colonoscopy [facility] Hernia of abdominal cavity (disorder) [facility] Plan of Treatment Date Care Activity Detail Author Start: 11-12-2024 End: 11-12-2024 US Carotid arteries - bilateral Vas carotid duplex bilateral Vascular Ultrasound Routine Occlusion and stenosis of unspecified carotid artery Bilateral carotid artery stenosis without cerebral infarction Expected: 11/12/2024 (Approximate), Expires: 11/12/2024 [employer] Phone: Comment on above: Expected: 11/12/2024 (Approximate), Expires: 11/12/2024 Start: 12-07-2023 Influenza vaccination Influenza Vacc ine [facility] [employer] Start: 05-30-2023 COVID-19 Vaccine ( season) COVID-19 Vaccine ( season) [facility] Start: 2000 Fall Risk Screening [facility] Start: 1954 DTaP,Tdap and Td Vaccines (1 - Tdap) DTaP,Tdap and Td Vaccines (1 - Tdap) [facility] Start: 1953 Adult BMI Follow Up Plan Adult BMI Follow Up Plan [facility] Start: 1953 Adult BMI Screening Adult BMI Screen ing [facility] Start: 1947 Depression Screening [facility] Scre ening [facility] Start: 1947 Tobacco Screening [facility] Screening [facility] Start: 1935 Medicare Annual Wellness Visit Medicare Annual Wellness Visit [facility] [employer] Immunizations Immunization Date Immunization Notes Care Provider Deng anguiano 05-02-2023 zoster vaccine recombinant [facility] 02-24-2023 zoster vaccine recombinant [facility] 01-27-2023 influenza virus vaccine, unspecified formulation [facility] 06-02-2022 influenza virus vaccine, unspecified formulation [facility] 06-02-2022 pneumococcal conjuga te vaccine, 13 valent [facility] 01-21-2022 influenza virus vaccine, unspecified formulation [facility] 09-27-2021 SARS-CoV-2 (COVID-19 ) mRNA-1273 vaccine [facility] 04-24-2021 SARS-CoV-2 (COVID-19 ) mRNA BNT-162b2 vax [facility] 01-25-2021 influenza virus vaccine, unspecified formulation [facility] 06-06-2020 SARS-CoV-2 (COVID-19 ) mRNA-1273 vaccine [facility] 05-09-2020 SARS-CoV-2 (COVID-19 ) mRNA-1273 vaccine [place] [employer] [facility] 04-11-2020 SARS-CoV-2 (COVID-19 ) mRNA-1273 vaccine [place]en [employer] [facility] 01-14-2020 influenza virus vaccine, unspecified formulation [employer] [facility] 01-06-2020 influenza virus vaccine, unspecified formulation [facility] 01-28-2018 influenza virus vaccine, unspecified formulation [facility] 02-05-2017 pneumococcal conjuga te vaccine, 13 valent [place]arien [employer] [facility] 01-27-2017 influenza virus vaccine, unspecified formulation [facility] 01-13-2017 influenza virus vaccine, unspecified formulation [facility] 01-06-2017 influenza virus vaccine, unspecified formulation [facility] 01-03-2016 influenza virus vaccine, unspecified formulation [facility] [facility] 01-06-2015 influenza virus vaccine, unspecified formulation [facility]Qu[facility] 02-03-2014 influenza virus vaccine, unspecified formulation [facility]Qu[facility] 01-25-2009 influenza, whole Darien Martins [facility] Payers Date Payer Category Payer Unknown [id number] 2017 Unknown 2017 Medicare [id number] 2000 Medicare MEDICARE MEDICAR E PART A & B [id number] 2000-Present [phone] [address] [place] [address] [id number] 1959 Medicare [id number] 2.16.840.1.327105.19 1959 Self-pay 1959 Unknown [id number] 1935 Unknown [id number] 2.16.840.1.344390.3.579.2.593 1935 Unknown [id number] 2.16.840.1.775584.3.579.2.593 1935 Unknown [id number] 2.16.840.1.959645.3.579.2.593 1935 Unknown [id number] 2.16.840.1.244167.3.579.2.593 1935 Unknown [id number] 2.16.840.1.823362.3.579.2.593 1935 Unknown [id number] 2.16.840.1.458335.3.579.2.593 1935 Unknown [id number] 2.16.840.1.988457.3.579.2.593 1935 Unknown [id number] 2.16.840.1.651052.3.579.2.593 1935 Unknown [id number] 2.16.840.1.746603.3.579.2.593 1935 Unknown [id number] 2.16.840.1.835311.3.579.2.593 1935 Unknown [id number] 2.16.840.1.959328.3.579.2.593 1935 Unknown [id number] 2.16.840.1.819349.3.579.2.593 1935 Unknown [id number] 2.16.840.1.198694.3.579.2.593 1935 Unknown [id number] 2.16.840.1.040941.3.579.2.593 1935 Unknown [id number] 2.16.840.1.738854.3.579.2.593 1935 Unknown [id number] 2.16.840.1.324586.3.579.2.593 1935 Unknown [id number] 2.16.840.1.293987.3.579.2.727 1935 Unknown [id number] 2.16.840.1.887563.3.579.2.727 1935 Unknown [id number] 2.16.840.1.694035.3.579.2.727 Unknown [id number] 2.16.8 40.1.247990.19 Unknown [id number] 2.16.840.1.788445.3.579.2.593 Unknown [id number] 2.16.840.1.050931.3.579.2.593 Social History Date Type Detail Facility Start: 05-18-2020 End: 11-13-2023 Sex Assigned At [facility] [employer] Other Start: 11-27-2021 End: 06-11-2022 Tobacco smoking status Never smoked tobacco (finding) [facility] Tobacco smoking status Never [facility] Start: 11-13-2023 Tobacco smoking stat us NHIS Ex-smoker [facility] End: 08-01-1947 History of tobacco use Current smoker [facility] End: 08-01-1947 History of tobacco use Cigarette Smoker [facility] Start: 11-13-2023 Tobacco use and exposure Smokeless tobacco non-user [facility] Start: 11-13-2023 Alcoholic beverage intake Current drinker of alcohol (finding) [facility] Start: 05-18-2020 End: 11-13-2023 Alcoholic beverage intake [facility] Start: 07-29-2017 Alcohol Comment 1 daily [facility] Start: 1935 Sex assigned at Not on file [facility] Medical Equipment Procedure Code Equipment Code Equipment Origin al Text Equipment Identifier Dates Kit Iol +18.5 D Cnvxpln Klmn [facility] [id number] - [id number] - [id number] Start: 07-31-2017 Functional Status Date Assessment Result Facility 11-27-2021 Functional Status N/A [facility] Clinical Notes 12-27-2020 to 04-30-2024 Assessment & Plan Note - Linda Montelongo MD - 11/13/2023 9:37 AM EDTAssessment & Plan Note - Linda Montelongo MD - 11/13/2023 9:37 AM EDTMradha Montelongo MD - 11/13/2023 9:20 AM EDT Note Date & Type Note Facility 04-30-2024 Note Cardiology Follow Up Progress Note HPI: Liliana Natarajan is a 88 y.o. male With [...] risk factor modific (more content not included)... [facility] 01-05-2024 Note Cardiology Follow Up Progress Note Chief Complaint: Follow up HPI: Liliana Natarajan is a 88 y.o. male With [...] were provided. P (more content not included)... [facility] 11-13-2023 Evaluation + Plan note Associated Problem(s): Bilateral carotid artery stenosis without cerebral infarction We will start him on aspirin Plavix and statin. I discussed with him risk factors modification and close surveillance.Will get an ultrasound in a year. [facility] 11-13-2023 Miscellaneous Notes Associated Problem(s): Bilateral carotid artery stenosis without cerebral infarction We will start him on aspirin Plavix and statin. I discussed with him risk factors modification and close surveillance.Will get an ultrasound in a year. documented in this encounter [facility] 11-13-2023 History of Presen t illness Narrative Images from the original note were not included. To: ERIN BERG MD HPI: Liliana Natarajan is a 88 y.o. male with [...] mg total) by mouth in the morning. ryqeixlk-lkcndedr-kebotbk fum (MULTI VITAMIN) 9 mg iron/15 mL [...] mg capsule Take 50 mg by mouth. logan, Zingiber officinalis, (LOGAN EXTRACT) 250 mg capsule Take 250 mg by mouth. (Patient not taking: Reported on 11/13/2023) glimepiride (AMARYL) 2 mg tablet Take 2 mg by mouth every morning before breakfast. (Patient not taking: Reported on 11/13/2023) No current facility-administered medications on file prior to visit. Past Medical History: Past Medical History: Diagnosis Date Cataract Diabetes mellitus type 2, controlled ([facility]) Hypertension Hypothyroidism Injury of back 1985 back surgery Visual impairment glasses Past Surgical History: Past Surgical History: Procedure Laterality Date APPENDECTOMY BACK SURGERY CATARACT EXTRACTION IMPLANT SECONDARY LENS Left 07/31/2017 Performed by Orly Mares MD at [facility] SURGERY left rotator cuff TONSILLECTOMY [...] Interpersonal Safety: Unknown (05/29/2023) Received from [facility] [place] Safety & Environment Fear of Current [...] surveillance.Will get an ultrasound in a year. Liliana was seen today for carotid stenosis. Diagnoses and all orders for this visit: Bilateral carotid artery stenosis without cerebral infarction Occlusion and stenosis of unspecified carotid [facility] [place] [place] Linda Montelongo MD, MC, RPVI, FSVS, FACS [facility] This note was created with the assistance of a speech recognition program. While intending to generate a timely document that accurately reflects the content of the visit, no guarantee can be provided that every grammatical or spelling mistake has been or will be identified or corrected. Thank you for your understanding. 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 [facility] 11-26-2022 Evaluation note Encounter Date Diagnosis Assessment Notes Nov, Microscopic colitis (ICD-10 - K52.89) Patient to use OTC probiotic and OTC Fiber supplement to help normalize the stools. Patient to finish remaining 2 weeks of medication and call if diarrhea returns after stopping the medication. RTO in 1 year. [facility] Other 09-22-2022 Evaluation note* Encounter Date Diagnosis Assessment Notes Treatment Notes Treatment Clinical Notes Dec, Microscopic colitis (ICD-10 - K52.89) REASSURANCE PT ADVISED TO ADD FIBER SUPPLEMENT TO DIET F/U PRN [facility] Other 08-23-2022 Hospital Discharge instructions Patient Education [...] urethra. Follow these instructions at home: Take krhj-cen-xcvjzeh and prescription medicines only as told by [...] 03/24/2006 Document Revised: 02/16/2019 Document Reviewed: 04/28/2017 [employer] Patient Education 2020 [employer]. Follow Up Care 05/30/2021 14:56:10 With:Darien REYNOLDS MD, URL Address: [address] [place], [place] [address]- When:6 months [facility] [id number] Evaluation note* Encounter Date Diagnosis Assessment Notes Treatment Notes Treatment Clinical Notes Dec, Microscopic colitis (ICD-10 - K52.89) Colitis home care material was printed will taper the budesonide at this time patient to finish the 9 mg taper then move to the 6 mg taper. [facility] Other Evaluation + Plan note Future Appointments Appointment Date:06/11/2022 09:30:00 AM Scheduled Provider:Darien REYNOLDS MD Location:[facility] Appointment Type:URO Office Visit [facility] Evaluation note* Diagnosis Bilateral carotid artery [...] 1998 Hospitalization History SEE ABOVE SURGICAL HX [facility] Other History general Narrative - Reported* Type [...] History A1c down- [facility]os[facility] ford 05/2022 [facility] Other Hospital course Narrative No data available for this section [facility] Hospital Discharge instructions No data available for this section [facility] Sight Sciences InstructionsNot on filedocumented in this encounter [facility] SystemProgress note No data available for this section [facility] Summary Purpose Family History No Family History [...] bilateral Linda Montelongo MD [address], [place] [address] Referral ID Status Reason Start Date Expiration Date V isits Requested Visits Authorized [id number] Pending Review 11/13/2023 11/12/2024 1 1 Additional Source Comments (unrecognized sect ion and content) No Status Records FoundNo Status Records FoundNo Status Records FoundNo Status Records FoundNo Status Records FoundNo Status Records Found INFORMATION SOURCE (unrecogn ized section and content) DATE CREATED AUTHOR 09/30/2017 [facility] DATE CREATED AUTHOR AUTHOR'S ORGANIZ ATION 09/30/2017 [facility] DATE CREATED AUTHOR AUTHOR'S ORGANIZ ATION 10/30/2020 [facility] DATE CREATED AUTHOR AUTHOR'S ORGANIZ ATION 08/19/2022 [facility] DATE CREATED AUTHOR AUTHOR'S ORGANIZ ATION 08/10/2023 [facility] DATE CREATED AUTHOR AUTHOR'S ORGANIZ ATION 05/07/2024 [facility] REASON FOR VISIT (unrecogniz ed section and content) Reason Comments carotid stenosis Venous duplex in med ia Specialty Diagnoses / Procedures Referred By Odalys teresa Referred To Contact Vascular Surgery Diagnoses Occlusion and stenosis of unspecified carotid artery Erin Berg MD [address] [id number] Linda Montelongo MD [facility] [place] [address] Referral ID Status Reason Start Date Expiration Date Visits Requested Visits Authorized [id number] Pending Review Specialty Services Required 11/04/2023 11/03/2024 1 1 Care Team (unrecognized sect ion and content) 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 [employer] provides no warranty or guarantee of the accuracy or completeness of information in this document.
== END 2024-07-05 16:52 | disposition home or self-care (01) ==
LOC: RAD 16:53
PROVIDERS: PCP Family Medicine; Visit Provider Family Medicine
DX: M25.571 Pain in right ankle and joints of right foot (principal)
CPT/HCPCS: 73610

== ENCOUNTER 2024-07-08 07:54 | Outpatient (RCR) | payer MEDICARE, OTHER, SELFPAY | END 2024-07-09 07:37 | disposition home or self-care (01) | LOC: PT 07:54 | PROVIDERS: PCP Family Medicine; Visit Provider Family Medicine | DX: M19.071 Primary osteoarthritis, right ankle and foot (principal) | CPT/HCPCS: 97110; 97161 ==

== ENCOUNTER 2024-07-22 15:43 | Outpatient (OUT) | payer MEDICARE, OTHER, SELFPAY ==
[2024-07-22 16:12] LABS: Basophils Percent Auto 0.5 % (0.2-2.0); Eosinophils Absolute Auto 0.2 10^3/uL (0.0-0.7); Eosinophils Percent Auto 2.8 % (0.9-7.0); Hematocrit 36.2 % (42.0-54.0); Hemoglobin 11.6 g/dL (14.0-18.0); Immature Granulocytes Abs Auto 0.02 10^3/uL (0.00-0.03); Immature Granulocytes Pct Auto 0.2 % (0.0-0.5); Lymphocytes Percent Auto 35.9 % (20.5-60.0); Mean Corpuscular Hemoglobin 29.6 pg (25.9-34.0); Mean Corpuscular Volume 92.3 fL (80.0-94.0); Mean Platelet Volume 10.8 fL (9.5-13.5); Monocytes Absolute Auto 0.9 10^3/uL (0.3-0.8); Neutrophils Absolute Auto 4.1 10^3/uL (1.4-6.5); Neutrophils Percent Auto 49.6 % (43.0-75.0); Platelet Count 251 10^3/uL (150-450); Red Blood Count 3.92 10^6/uL (4.70-6.10); Red Cell Distribution Width 15.9 % (11.0-15.0); White Blood Count 8.3 10^3/uL (4.0-11.0)
[2024-07-22 16:21] LABS: C Reactive Protein <0.50 mg/dL (<=0.50); Uric Acid 6.3 mg/dL (3.5-7.2)
[2024-07-22 16:29] LABS: Erythrocyte Sedimentation Rate 8 mm/hr (<=20)
== END 2024-07-22 15:44 | disposition home or self-care (01) ==
LOC: LAB 15:45
PROVIDERS: PCP Family Medicine; Visit Provider Family Medicine
DX: M79.676 Pain in unspecified toe(s) (principal)
CPT/HCPCS: 36415; 84550; 85025; 85652; 86140

== ENCOUNTER 2024-07-26 08:30 | Outpatient (OUT) | payer MEDICARE, OTHER, SELFPAY ==
--- OUTSIDE RECORDS SUMMARY | 2024-07-26 08:55 | XMS_ITS | CCD ---
Author Organization [facility] Care Team Providers Care Assistant Manager Bilingual Name Role Phone CHET NESBITT Unavailable Unavailable LAZ CHET Unavailable Unavailable ERIN BERG Unavailable Unavailable PHYSICIAN, DEFAULT Unavailable Unavailable PHYSICIAN, DEFAULT Unavailable Unavailable PHYSICIAN, DEFAULT Unavailable Unavailable PHYSICIAN, DEFAULT Unavailable Unavailable Chevy Robins Unavailable Erin Berg Primary Care Physician [phone] DR [employer] Consult[employer] Unavailable HOY [...] Unavailable Ignacioy Erin GARCIA Primary Care Provider ALGHOTHANI, MOHAMAD Attending Unavailable ALGHOTHANI, MOHAMAD Attending Unavailable CHARMAINE JENKINS Attending Unavailable Allergies Allergy Classification Reported Allergen(s) Allergy Type Date of Onset Reaction(s) Facility (1 source) No Known Medication Allergies; Translations: [No Known Medication Allergies] Propensity to adverse reactions (disorder) [facility] Repository (1 source) Adhesive agent; Translations: [ADHESIVE] Propensity to adverse reactions to drug (disorder) 7 [facility] Repository Medications Current Medications Medication Drug [...] Daily, # 30 tab(s), Refills(s) 11, Pharmacy: [id number], 172, cm, 06/11/22 9:50:00 EST, Height/Length [...] 11/05/2023 Active take 1 capsule by mo [facility] every twelve hours Potassium Chloride [...] 50 mg by mouth. 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 CURRENT DRUG THERAPY] Onset: 3 Episodic [...] Test Name Value Interpretation Reference Range Facility Orders Onlyon 07-15-2024 Orders Only [id number] DelgadoCaprice blood E 1935 M Date Provider Department Center 07/15/2024 PEDRO HUANG MARLENE [facility] Family History Problem Relation Age of Onset No Known Problems Mother Diabetes Father Hypertension Father Family Status - Relation Status Age at Mother Father Sister Brother Normal [facility] Office Visiton 07-13-2024 Follow-up visit [id number] Yasmani Natarajanelissa blood E 1935 M Date Provider Department Center 07/13/2024 CHARMAINE MIGUEL MARLENE [facility] Family History Problem Relation Age of Onset No Known Problems Mother Diabetes Father Hypertension Father Family Status - Relation Status Age at Mother Father Sister Brother Level of Service:17389 SD OFFICE/OUTPATIENT NEW MODERATE MDM 45 MINUTES Normal [facility] 36on 05-05-2024 36 Regarding lab result s from 05/03/2024: I spoke with Dr. Baeza regarding elevated potassium and renal function. He advised patient stop potassium, repeat labs in 5-7 days, and also see his manager marketing communication if he has one. I then spoke with Mr. Natarajan - who said Dr. Berg already advised him to stop potassium. He also said Dr. Berg ordered repeat labs to be done in the next few days. He does not see a manager marketing communication but agreed to a referral. I put one in and faxed it to [facility] in [place]. Patient verbalized understanding. Normal [facility] Office Visiton 04-30-2024 Follow-up visit [id number] Caprice Natarajan E 1935 M Date Provider Department Center 04/30/2024 ARNEL SINGH Family History Problem Relation Age of Onset Diabetes Father Hypertension Father Family Status - Relation Status Age at Father Level of Service:45022 SD OFFICE/OUTPATIENT ESTABLISHED MOD MDM 30 MIN Normal [facility] Office Visiton 01-05-2024 Follow-up visit [id number] Caprice Natarajan p E 1935 M Date Provider [facility] Problem Relation Age of Onset Diabetes Father Hypertension Father Family Status - Relation Status Age at Father Level of Service:54444 SD OFFICE/OUTPATIENT ESTABLISHED LOW MDM 20 MIN Normal [facility] STOOL CULTUREon 08-18-2022 Campylobacter Culture Final report Normal [facility] Comment on above: Performed By: #### C XSTOOL #### [facility] [address] [address] [address] Deepika Terrell E coli Shiga Toxin EIA Negative Normal Negative [facility] Comment on above: Performed By: #### C XSTOOL #### [facility] [address] [address] [address] Deepika Terrell Result 1 Comment Normal [facility] Comment on above: Result Comment: No S almonella or Shigella recovered. Performed By: #### C XSTOOL #### [facility] [address] [address] [address] Deepika Terrell Result Comment: No C ampylobacter species isolated. Salmonella/Shigell a Screen Final report Normal [facility] Comment on above: Performed By: #### C XSTOOL #### [facility] [address] [address] [address] Deepika Terrell C. DIFF PCRon 08-13-2022 C. DIFFICILE PCR Negative Normal NEGATIVE [facility] Comment on above: Performed By: #### B MP #### [facility] [address] [place], [place] [address] Dr. Deepika Terrell Consultation Noteon 08-14-19 23 Consultation Note [id number]:127 Normal [facility] OCC BLD IMMUNO SCREENon OCCULT BLOOD Negative Normal NEGATIVE [facility] Comment on above: Performed By: #### B MP #### [facility] [address] [place], [place] [address] Dr. Deepika Terrell RAD - MISCon 08-13-2022 RAD - MISC [id number]:127 Normal [facility] Physician Referralon 023 Physician Referral [id number]:127 Normal [facility] NM HEPATOBILIARY SCAN W EFon 08-09-2022 NM [...] by: GEOVANY ESPINAL Date: 2022-08-09 10:42 Normal [facility] US SINGLE QUAD RT UPPERon [...] Date: 2022-08-08 07:42 Normal [facility] GLYCOHEMOGLOBIN A1Con 2022 ADA RECOMMENDATION SEE BELOW Normal [facility] Comment on above: Result Comment: ADA RECOMMENDED LIMIT 4.0 - 6.0 ADA THERAPEUTIC TARGET < 7.0 ACTION SUGGESTED > 7.0 Performed By: #### I NSULT #### [facility] [address] [place] [address] Dr. Deepika Terrell Glucose [Mass/Vol] 117 mg/dL Normal [facility] Comment on above: Performed By: #### I NSULT #### [facility] [address] [place] [address] Dr. Deepika Terrell HbA1c (Bld) [Mass fraction] 5.7 % Normal 4.5-6.2 [facility] Comment on above: Performed By: #### I NSULT #### [facility] [address] [place] [address] ABD/PELVIS WO CONon [...] Date: 2022-07-20 07:40 Normal [facility] CBC AUTO DIFFon 07-19-2022 BASO # 0.0 103/ul Normal 0.0-0.1 [facility] Comment on above: Performed By: #### C BC #### [facility] [address] [place] [address] Dr. Deepika Terrell Basophils/100 WBC (Bld) 0.3 % Normal 0.2-2.0 [facility] Comment on above: Performed By: #### C BC #### [facility] [address] [place] [address] Dr. Deepika Terrell EO # 0.3 103/ul Normal 0.0-0.7 [facility] Comment on above: Performed By: #### C BC #### [facility] [address] [place] [address] Dr. Deepika Terrell Eosinophils/100 WBC (Bld) 2.4 % Normal 0.9-7.0 [facility] Comment on above: Performed By: #### C BC #### [facility] [address] [place] [address] Dr. Deepika Terrell Erythrocyte distribution width (RBC) [Ratio] 14.8 % Normal 11.0-15.0 [facility] Comment on above: Performed By: #### C BC #### [facility] [address] [place] [address] Dr. Deepika Terrell Hematocrit (Bld) [Volume fraction] 33.8 % Critically low 42.0-54.0 [facility] Comment on above: Performed By: #### C BC #### [facility] [address] [place] [address] Dr. Deepika Terrell Hemoglobin (Bld) [Mass/Vol] 11.0 g/dL Critically low 14.0-18.0 [facility] Comment on above: Performed By: #### C BC #### [facility] [address] [place] [address] Dr. Deepika Terrell IG # 0.08 10e3/ul Critically high 0.00-0.03 [facility] Comment on above: Performed By: #### C BC #### [facility] [address] [place] [address] Dr. Deepika Terrell IG % 0.7 % Critically high 0.0-0.5 [facility] Comment on above: Performed By: #### C BC #### [facility] [address] [place] [address] Dr. Deepika Terrell LYMPH # 3.5 103/ul Normal 1.2-3.8 [facility] Comment on above: Performed By: #### C BC #### [facility] [address] [place] [address] Dr. Deepika Terrell Lymphocytes/100 WBC (Bld) 29.2 % Normal 20.5-60.0 [facility] Comment on above: Performed By: #### C BC #### [facility] [address] [place] [address] Dr. Deepika Terrell MANUAL DIFF REQ NO Normal [facility] Comment on above: Performed By: #### C BC #### [facility] [address] [place] [address] Dr. Deepika Terrell MCH (RBC) [Entitic mass] 29.4 pg Normal 25.9-34.0 [facility] Comment on above: Performed By: #### C BC #### [facility] [address] [place] [address] Dr. Deepika Terrell MCHC (RBC) [Mass/Vol] 32.5 g/dL Normal 29.9-35.2 [facility] Comment on above: Performed By: #### C BC #### [facility] [address] [address] [address] Deepika Terrell MCV (RBC) [Entitic vol] 90.4 fL Normal 80.0-94.0 [facility] Comment on above: Performed By: #### C BC #### [facility] [address] [address] [address] Deepika Terrell MONO # 0.7 103/ul Normal 0.3-0.8 [facility] Comment on above: Performed By: #### C BC #### [facility] [address] [place] [address] Dr. Deepika Terrell Monocytes/100 WBC (Bld) 6.1 % Normal 1.7-12.0 [facility] Comment on above: Performed By: #### C BC #### [facility] [address] [place] [address] Dr. Deepika Terrell NEUT # 7.3 103/ul Critically high 1.4-6.5 [facility] Comment on above: Performed By: #### C BC #### [facility] [address] [place] [address] Dr. Deepika Terrell Neutrophils/100 WBC (Bld) 61.3 % Normal 43.0-75.0 [facility] Comment on above: Performed By: #### C BC #### [facility] [address] [place] [address] Dr. Deepika Terrell Platelet mean volume (Bld) [Entitic vol] 10.8 fL Normal 9.5-13.5 [facility] Comment on above: Performed By: #### C BC #### [facility] [address] [address] [address] Deepika Terrell PLT 372 103/ul Normal 150-450 [facility] Comment on above: Performed By: #### C BC #### [facility] [address] [place] [address] Dr. Deepika Terrell RBC 3.74 106/ul Critically low 4.70-6.10 [facility] Comment on above: Performed By: #### C BC #### [facility] [address] [place] [address] Dr. Deepika Terrell WBC 11.9 103/ul Critically high 4.0-11.0 [facility] Comment on above: Performed By: #### C BC #### [facility] [address] [place] [address] Dr. Deepika Terrell PROF CHEM 8 (BAS METB)on Anion gap [Moles/Vol] 16.1 mmol/L Normal [facility] Comment on above: Performed By: #### I NSULT #### [facility] [address] [place] [address] Dr. Deepika Terrell Calcium [Mass/Vol] 9.0 mg/dL Normal 8.5-10.1 [facility] Comment on above: Performed By: #### I NSULT #### [facility] [address] [place] [address] Dr. Deepika Terrell Chloride [Moles/Vol] 108 mmol/L Critically high 98-107 [facility] Comment on above: Performed By: #### I NSULT #### [facility] [address] [place] [address] Dr. Deepika Terrell CO2 [Moles/Vol] 19.3 mmol/L Critically low 21.0-32.0 [facility] Comment on above: Performed By: #### I NSULT #### [facility] [address] [place] [address] Dr. Deepika Terrell Creatinine [Mass/Vol] 2.68 mg/dL Critically high 0.70-1.30 [facility] Comment on above: Performed By: #### I NSULT #### [facility] [address] [place] [address] Dr. Deepika Trerell EGFR-AF SINGAPOREAN 27 mL/min/1.73m2 Critically low >=60 [facility] Comment on above: Performed By: #### I NSULT #### [facility] [address] [address] [address] Deepika Terrell EGFR-NON AF [place]INGAP[place]AN 23 mL/min/1.73m2 Critically low >=60 [facility] Comment on above: Performed By: #### I NSULT #### [facility] [address] [place] [address] Dr. Deepika Terrell Glucose [Mass/Vol] 138 mg/dL Critically high 74-106 [facility] Comment on above: Performed By: #### I NSULT #### [facility] [address] [address] [address] Deepika Terrell Potassium [Moles/Vol] 4.4 mmol/L Normal 3.5-5.1 [facility] Comment on above: Performed By: #### I NSULT #### [facility] [address] [place] [address] Dr. Deepika Terrell Sodium [Moles/Vol] 139 mmol/L Normal 136-145 [facility] Comment on above: Performed By: #### I NSULT #### [facility] [address] [place] [address] Dr. Deepika Terrell Urea nitrogen [Mass/Vol] 68.0 mg/dL Critically high 7.0-18.0 [facility] Comment on above: Performed By: #### I NSULT #### [facility] [address] [place] [address] Dr. Deepika Terrell Urea nitrogen/Creatinin e [Mass ratio] 25.4 mg/mg Normal [facility] Comment on above: Performed By: #### I NSULT #### [facility] [address] [place] [address] Dr. Deepika Terrell CA 19-9on 07-18-2022 CA 19-9 9 U/mL Normal 0-35 [facility] Comment on above: Result Comment: [employer] e wishkicker Electrochemiluminescence Immunoassay (ECLIA) . Values obtained with different assay methods or kits cannot be used interchangeably. Results cannot be interpreted as absolute evidence of the presence or absence of malignant disease. Performed By: #### B MP #### [facility] [address] [place] [address] Dr. Deepika Terrell CEAon 07-18-2022 CEA 3.1 ng/mL Normal 0.0-4.7 [facility] Comment on above: Result Comment: Nons mokers <3.9 Smokers <5.6 . [employer] Electrochemiluminescence Immunoassay (ECLIA) . Values obtained with different assay methods or kits cannot be used interchangeably. Results cannot be interpreted as absolute evidence of the presence or absence of malignant disease. Performed By: #### I NSULT #### [facility] [address] [place] [address] Dr. Deepika Terrell HELICOBACTER PYLORI AB IGMon 07-18-2022 H pylori, IgM Abs <9.0 Normal 0.0-8.9 [facility] Comment on above: Result Comment: Nega tive <9.0 Equivocal 9.0 - 11.0 Positive >11.0 . This test was developed and its performance characteristics determined by [employer]. It has not been cleared or approved by the Food and Drug Administration. Performed By: #### C PEPT #### [facility] [address] [place] [address] Dr. Deepika Terrell AMYLASEon 07-17-2022 Amylase [Catalytic activity/Vol] 38 U/L Normal 25-115 [facility] Comment on above: Performed By: #### C BC #### [facility] [address] [place] [address] Dr. Deepika Terrell CBC W MANUAL DIFFon 07-18-19 23 ATYPICAL LYMPH # Normal [facility] Comment on above: Performed By: #### E RUR #### [facility] [address] [place] [address] Dr. Deepika Terrell ATYPICAL LYMPH % Normal [facility] Comment on above: Performed By: #### E RUR #### [facility] [address] [place] [address] Dr. Deepika Terrell BAND # Normal 0.0-0.3 [facility] Comment on above: Performed By: #### E RUR #### [facility] [address] [place] [address] Dr. Deepika Terrell BAND % Normal 0-5 [facility] Comment on above: Performed By: #### E RUR #### [facility] [address] [place] [address] Dr. Deepika Terrell BASOM # 0.00 103/ul Normal 0.00-0.10 [facility] Comment on above: Performed By: #### E RUR #### [facility] [address] [place] [address] Dr. Deepika Terrell BASOM % 0.0 % Critically low 0.2-2.0 [facility] Comment on above: Performed By: #### E RUR #### [facility] [address] [place] [address] Dr. Deepika Terrell BLAST # Normal [facility] Comment on above: Performed By: #### E RUR #### [facility] [address] [place] [address] Dr. Deepika Terrell BLAST % Normal [facility] Comment on above: Performed By: #### E RUR #### [facility] [address] [place] [address] Dr. Deepika Terrell CORRECTED WBC Normal 4.0-11.0 [facility] Comment on above: Performed By: #### E RUR #### [facility] [address] [place] [address] Dr. Deepika Terrell EOS # 0.00 103/ul Normal 0.00-0.70 [facility] Comment on above: Performed By: #### E RUR #### [facility] [address] [place] [address] Dr. Deepika Terrell EOS% 0.0 % Critically low 0.9-7.0 [facility] Comment on above: Performed By: #### E RUR #### [facility] [address] [place] [address] Dr. Deepika Terrell HCT 35.9 % Critically low 42.0-54.0 [facility] Comment on above: Performed By: #### E RUR #### [facility] [address] [place] [address] Dr. Deepika Terrell HGB 11.6 g/dl Critically low 14.0-18.0 [facility] Comment on above: Performed By: #### E RUR #### [facility] [address] [address] [address] Deepika Terrell LYMPHM # 3.48 103/ul Normal 1.20-3.80 [facility] Comment on above: Performed By: #### E RUR #### [facility] [address] [place] [address] Dr. Deepika Terrell LYMPHM% 17.0 % Critically low 20.5-60.0 [facility] Comment on above: Performed By: #### E RUR #### [facility] [address] [place] [address] Dr. Deepika Terrell MCH 29.5 pg Normal 25.9-34.0 [facility] Comment on above: Performed By: #### E RUR #### [facility] [address] [place] [address] Dr. Deepika Terrell MCHC 32.3 g/dl Normal 29.9-35.2 [facility] Comment on above: Performed By: #### E RUR #### [facility] [address] [place] [address] Dr. Deepika Terrell MCV 91.3 fL Normal 80.0-94.0 [facility] Comment on above: Performed By: #### E RUR #### [facility] [address] [place] [address] Dr. Deepika Terrell METAMYELOCYTE # Normal [facility] Comment on above: Performed By: #### E RUR #### [facility] [address] [place] [address] Dr. Deepika Terrell METAMYELOCYTE % Normal [facility] Comment on above: Performed By: #### E RUR #### [facility] [address] [place] [address] Dr. Deepika Terrell MONOM# 1.23 103/ul Critically high 0.30-0.80 [facility] Comment on above: Performed By: #### E RUR #### [facility] [address] [place] [address] Dr. Deepika Terrell MONOM% 6.0 % Normal 1.7-12.0 [facility] Comment on above: Performed By: #### E RUR #### [facility] [address] [place] [address] Dr. Deepika Terrell MPV 10.8 fL Normal 9.5-13.5 [facility] Comment on above: Performed By: #### E RUR #### [facility] [address] [place] [address] Dr. Deepika Terrell MYELOCYTE # Normal [facility] Comment on above: Performed By: #### E RUR #### [facility] [address] [place] [address] Dr. Deepika Terrell MYELOCYTE % Normal [facility] Comment on above: Performed By: #### E RUR #### [facility] [address] [place] [address] Dr. Deepika Terrell NRBC Normal [facility] Comment on above: Performed By: #### E RUR #### [facility] [address] [place] [address] Dr. Deepika Terrell PLT 423 103/ul Normal 150-450 [facility] Comment on above: Performed By: #### E RUR #### [facility] [address] [place] [address] Dr. Deepika Terrell RBC 3.93 106/ul Critically low 4.70-6.10 [facility] Comment on above: Performed By: #### E RUR #### [facility] [address] [place] [address] Dr. Deepika Terrell RDW 14.7 % Normal 11.0-15.0 [facility] Comment on above: Performed By: #### E RUR #### [facility] [address] [place], [place] [id number] Dr. Deepika Terrell SEG # 15.79 103/ul Critically high 1.40-6.50 [facility] Comment on above: Performed By: #### E RUR #### [facility] [address] [place] [address] Dr. Deepika Terrell SEG % 77.0 % Critically high 43.0-75.0 [facility] Comment on above: Performed By: #### E RUR #### [facility] [address] [place] [address] Dr. Deepika Terrell WBC 20.5 103/ul Critically high 4.0-11.0 [facility] Comment on above: Performed By: #### E RUR #### [facility] [address] [place] [address] Dr. Deepika Terrell FREE THYROXINE INDEX T7on FTI 1.95 Normal 1.30-4.50 [facility] Comment on above: Performed By: #### C BC #### [facility] [address] [place] [address] Dr. Deepika Terrell T3U 39.0 % Normal 33.0-40.0 [facility] Comment on above: Performed By: #### C BC #### [facility] [address] [place] [address] Dr. Deepika Terrell T4 [Mass/Vol] 5.00 ug/dL Normal 4.50-12.10 [facility] Comment on above: Performed By: #### C BC #### [facility] [address] [place] [address] Dr. Deepika Terrell LIPASEon 07-17-2022 Lipase [Catalytic activity/Vol] 126.0 U/L Normal 73.0-393.0 [facility] Comment on above: Performed By: #### C BC #### [facility] [address] [place] [address] Dr. Deepika Terrell LIVER PROFILEon 07-17-2022 Albumin [Mass/Vol] 3.7 g/dL Normal 3.4-5.0 [facility] Comment on above: Performed By: #### C BC #### [facility] [address] [place] [address] Dr. Deepika Terrell Albumin/Globulin [Mass ratio] 1.0 {ratio} Normal [facility] Comment on above: Performed By: #### C BC #### [facility] [address] [place] [address] Dr. Deepika Terrell ALP [Catalytic activity/Vol] 82 U/L Normal 46-116 [facility] Comment on above: Performed By: #### C BC #### [facility] [address] [place] [address] Dr. Deepika Terrell ALT [Catalytic activity/Vol] 33 U/L Normal 16-63 [facility] Comment on above: Performed By: #### C BC #### [facility] [address] [address] [address] Deepika Terrell AST [Catalytic activity/Vol] 15 U/L Normal 15-37 [facility] Comment on above: Performed By: #### C BC #### [facility] [address] [place] [address] Dr. Deepika Terrell BILI, CONJUGATED 0.1 mg/dL Normal 0.0-0.2 [facility] Comment on above: Performed By: #### C BC #### [facility] [address] [place] [address] Dr. Deepika Terrell Bilirubin [Mass/Vol] 0.2 mg/dL Normal 0.2-1.0 [facility] Comment on above: Performed By: #### C BC #### [facility] [address] [place] [address] Dr. Deepika Terrell Globulin (S) [Mass/Vol] 3.6 g/dL Normal [facility] Comment on above: Performed By: #### C BC #### [facility] [address] [place] [address] Dr. Deepika Terrell Protein [Mass/Vol] 7.3 g/dL Normal 6.4-8.2 [facility] Comment on above: Performed By: #### C BC #### [facility] [address] [place] [address] Dr. Deepika Terrell PERIPHERAL SMEARon 3 Pathologist Cyto stain Nom (Cvx/Vag) [ID] DR. ANNIKA NIETO [facility] Comment on above: Result Comment: revi ew of smear reveals n/n w/aniso. plts. normal. leukocytosis with neutrophili and absolute monocytosis. no atypical lymphs, immature blasts seen. these findings are suggestive of a reactive process. clinical correlation is recommend Performed By: #### P ERSMR #### [facility] [address] [place] [address] Dr. Deepika Terrell PROF CHEM 8 (BAS METB)on Anion gap [Moles/Vol] 19.0 mmol/L Normal [facility] Comment on above: Performed By: #### C BC #### [facility] [address] [place] [address] Dr. Deepika Terrell Calcium [Mass/Vol] 9.5 mg/dL Normal 8.5-10.1 [facility] Comment on above: Performed By: #### C BC #### [facility] [address] [place] [address] Dr. Deepika Terrell Chloride [Moles/Vol] 112 mmol/L Critically high 98-107 [facility] Comment on above: Performed By: #### C BC #### [facility] [address] [place] [address] Dr. Deepika Terrell CO2 [Moles/Vol] 19.4 mmol/L Critically low 21.0-32.0 [facility] Comment on above: Performed By: #### C BC #### [facility] [address] [place] [address] Dr. Deepika Terrell Creatinine [Mass/Vol] 2.51 mg/dL Critically high 0.70-1.30 [facility] Comment on above: Performed By: #### C BC #### [facility] [address] [place] [address] Dr. Deepika Terrell EGFR-AF [place]AN 30 mL/min/1.73m2 Critically low >=60 [facility] Comment on above: Performed By: #### C BC #### [facility] [address] [place] [address] Dr. Deepika Terrell EGFR-NON AF [place]AN 24 mL/min/1.73m2 Critically low >=60 [facility] Comment on above: Performed By: #### C BC #### [facility] [address] [place] [address] Dr. Deepika Terrell Glucose [Mass/Vol] 159 mg/dL Critically high 74-106 [facility] Comment on above: Performed By: #### C BC #### [facility] [address] [address] [address] Deepika Terrell Potassium [Moles/Vol] 4.4 mmol/L Normal 3.5-5.1 [facility] Comment on above: Performed By: #### C BC #### [facility] [address] [address] [address] Deepika Terrell Sodium [Moles/Vol] 146 mmol/L Critically high 136-145 [facility] Comment on above: Performed By: #### C BC #### [facility] [address] [place] [address] Dr. Deepika Terrell Urea nitrogen [Mass/Vol] 67.0 mg/dL Critically high 7.0-18.0 [facility] Comment on above: Performed By: #### C BC #### [facility] [address] [address] [address] Deepika Terrell Urea nitrogen/Creatinin e [Mass ratio] 26.7 mg/mg Normal [facility] Comment on above: Performed By: #### C BC #### [facility] [address] [place] [address] Dr. Deepika Terrell TSHon 07-17-2022 TSH 0.884 uIU/mL Normal 0.358-3.740 [facility] Comment on above: Performed By: #### C BC #### [facility] [address] [place] [address] Dr. Deepika Terrell INSULIN FREE AND TOTALon Free Insulin 22 uU/mL Critically high [facility] Comment on above: Result Comment: Refe rengeovanni Range: Pubertal Children and Adults (fasting): 0 - 17 Performed By: #### I NSULT #### [facility] [address] [place] [address] Dr. Deepika Terrell Total Insulin 22 uU/mL Normal [facility] Comment on above: Result Comment: Non- [...] developed and its performance characteristics determined by [employer]. It has not been cleared or approved by the Food and Drug Administration. Performed By: #### I NSULT #### [facility] [address] [place] [address] Dr. Deepika Terrell C-PEPTIDE, SERUMon 3 C-Peptide, Serum 7.7 ng/mL Critically high 1.1-4.4 [facility] Comment on above: Result Comment: C-Pe ptide reference interval is for fasting patients. Performed By: #### C PEPT #### [facility] [address] [place] [address] Dr. Deepika Terrell OVA AND PARASITE EXAMINATION on 06-04-2022 Ova + Parasite Exam Final report Normal [facility] Comment on above: Result Comment: Thes e results were obtained using wet preparation(s) and trichrome stained smear. This test does not include testing for Cryptosporidium parvum, Cyclospora, or Microsporidia. Performed By: #### B MP #### [facility] [address] [place] [address] Dr. Deepika Terrell Result 1 Comment Normal [facility] Comment on above: Result Comment: No o va, cysts, or parasites seen. . One negative specimen does not rule out the possibility of a parasitic infection. Performed By: #### B MP #### [facility] [address] [place] [address] Dr. Deepika Terrell CBC AUTO DIFFon 06-02-2022 BASO # 0.0 103/ul Normal 0.0-0.1 [facility] Comment on above: Performed By: #### I NSULT #### [facility] [address] [place] [address] Dr. Deepika Terrell Basophils/100 WBC (Bld) 0.4 % Normal 0.2-2.0 [facility] Comment on above: Performed By: #### I NSULT #### [facility] [address] [place] [address] Dr. Deepika Terrell EO # 0.4 103/ul Normal 0.0-0.7 [facility] Comment on above: Performed By: #### I NSULT #### [facility] [address] [place] [address] Dr. Deepika Terrell Eosinophils/100 WBC (Bld) 3.3 % Normal 0.9-7.0 [facility] Comment on above: Performed By: #### I NSULT #### [facility] [address] [place] [address] Dr. Deepika Terrell Erythrocyte distribution width (RBC) [Ratio] 14.6 % Normal 11.0-15.0 [facility] Comment on above: Performed By: #### I NSULT #### [facility] [address] [place] [address] Dr. Deepika Terrell Hematocrit (Bld) [Volume fraction] 29.8 % Critically low 42.0-54.0 [facility] Comment on above: Performed By: #### I NSULT #### [facility] [address] [place] [address] Dr. Deepika Terrell Hemoglobin (Bld) [Mass/Vol] 9.8 g/dL Critically low 14.0-18.0 [facility] Comment on above: Performed By: #### I NSULT #### [facility] [address] [place] [address] Dr. Deepika Terrell IG # 0.05 10e3/ul Critically high 0.00-0.03 [facility] Comment on above: Performed By: #### I NSULT #### [facility] [address] [place] [address] Dr. Deepika Terrell IG % 0.5 % Normal 0.0-0.5 [facility] Comment on above: Performed By: #### I NSULT #### [facility] [address] [place] [address] Dr. Deepika Terrell LYMPH # 1.9 103/ul Normal 1.2-3.8 [facility] Comment on above: Performed By: #### I NSULT #### [facility] [address] [place] [address] Dr. Deepika Terrell Lymphocytes/100 WBC (Bld) 17.3 % Critically low 20.5-60.0 [facility] Comment on above: Performed By: #### I NSULT #### [facility] [address] [place] [address] Dr. Deepika Terrell MANUAL DIFF REQ NO Normal [facility] Comment on above: Performed By: #### I NSULT #### [facility] [address] [place] [address] Dr. Deepika Terrell MCH (RBC) [Entitic mass] 29.9 pg Normal 25.9-34.0 [facility] Comment on above: Performed By: #### I NSULT #### [facility] [address] [place] [address] Dr. Deepika Terrell MCHC (RBC) [Mass/Vol] 32.9 g/dL Normal 29.9-35.2 [facility] Comment on above: Performed By: #### I NSULT #### [facility] [address] [place] [address] Dr. Deepika Terrell MCV (RBC) [Entitic vol] 90.9 fL Normal 80.0-94.0 [facility] Comment on above: Performed By: #### I NSULT #### [facility] [address] [place] [address] Dr. Deepika Terrell MONO # 0.8 103/ul Normal 0.3-0.8 [facility] Comment on above: Performed By: #### I NSULT #### [facility] [address] [place] [address] Dr. Deepika Terrell Monocytes/100 WBC (Bld) 7.4 % Normal 1.7-12.0 [facility] Comment on above: Performed By: #### I NSULT #### [facility] [address] [place] [address] Dr. Deepika Terrell NEUT # 7.9 103/ul Critically high 1.4-6.5 [facility] Comment on above: Performed By: #### I NSULT #### [facility] [address] [place] [address] Dr. Deepika Terrell Neutrophils/100 WBC (Bld) 71.1 % Normal 43.0-75.0 [facility] Comment on above: Performed By: #### I NSULT #### [facility] [address] [place] [address] Dr. Deepika Terrell Platelet mean volume (Bld) [Entitic vol] 10.7 fL Normal 9.5-13.5 [facility] Comment on above: Performed By: #### I NSULT #### [facility] [address] [place] [address] Dr. Deepika Terrell PLT 295 103/ul Normal 150-450 [facility] Comment on above: Performed By: #### I NSULT #### [facility] [address] [place] [address] Dr. Deepika Terrell RBC 3.28 106/ul Critically low 4.70-6.10 [facility] Comment on above: Performed By: #### I NSULT #### [facility] [address] [place] [address] Dr. Deepika Terrell WBC 11.1 103/ul Critically high 4.0-11.0 [facility] Comment on above: Performed By: #### I NSULT #### [facility] [address] [place] [address] ABD/PELV W CONon [...] Date: 2022-06-01 22:50 Normal [facility] 05[facility]09 SARS-CoV-2 (COVID-19) RNA DANICA+probe Ql (Unsp spec) Not detected Normal NOT DETECTED [facility] Comment on above: Result Comment: When [...] for this test is supported by the [employer] and Human Service's declaration that [...] By: #### I NSULT #### [facility] [address] [place] [address] Dr. Deepika Terrell ER URINE PROFILEon 3 Bilirubin Ql (U) Negative Normal NEGATIVE [facility] Comment on above: Performed By: #### E RUR #### [facility] [address] [place] [address] Dr. Deepika Terrell Clarity (U) CLEAR Normal CLEAR [facility] Comment on above: Performed By: #### E RUR #### [facility] [address] [place] [address] Dr. Deepika Terrell Color (U) LT. YELLOW Normal YELLOW [facility] Comment on above: Performed By: #### E RUR #### [facility] [address] [place] [address] Dr. Deepika Terrell ERUAHD A micrscopic examina tion will be performed if indicated. Normal [facility] Comment on above: Performed By: #### E RUR #### [facility] [address] [place] [address] Dr. Deepika Terrell Glucose Ql (U) Negative Normal NEGATIVE [facility] Comment on above: Performed By: #### E RUR #### [facility] [address] [place] [address] Dr. Deepika Terrell Hemoglobin Ql (U) Negative Normal NEGATIVE [facility] Comment on above: Performed By: #### E RUR #### [facility] [address] [place] [address] Dr. Deepika Terrell Ketones Ql (U) Negative Normal NEGATIVE [facility] Comment on above: Performed By: #### E RUR #### [facility] [address] [place] [address] Dr. Deepika Terrell LEUKOCYTES Negative Normal NEGATIVE [facility] Comment on above: Performed By: #### E RUR #### [facility] [address] [place] [address] Dr. Deepika Terrell Nitrite Ql (U) Negative Normal NEGATIVE [facility] Comment on above: Performed By: #### E RUR #### [facility] [address] [place] [address] Dr. Deepika Terrell pH (U) 6.0 [pH] Normal 5-9 [facility] Comment on above: Performed By: #### E RUR #### [facility] [address] [place] [address] Dr. Deepika Terrell SPEC GRAVITY 1.010 Normal 1.005-<=1.02 5 [facility] Comment on above: Performed By: #### E RUR #### [facility] [address] [place] [address] Dr. Deepika Terrell UA PROTEIN Negative Normal NEGATIVE/ TRACE [facility] Comment on above: Performed By: #### E RUR #### [facility] [address] [place] [address] Dr. Deepika Terrell UR MICRO IND NOT INDICATED Normal [facility] Comment on above: Performed By: #### E RUR #### [facility] [address] [place] [address] Dr. Deepika Terrell Urobilinogen Qn (U) 0.2 {Jesus'U}/dL Normal 0.2 - 1.0 [facility] Comment on above: Performed By: #### E RUR #### [facility] [address] [place] [address] Dr. Deepika Terrell GLYCOHEMOGLOBIN A1Con 2022 ADA RECOMMENDATION SEE BELOW Normal [facility] Comment on above: Result Comment: ADA RECOMMENDED LIMIT 4.0 - 6.0 ADA THERAPEUTIC TARGET < 7.0 ACTION SUGGESTED > 7.0 Performed By: #### I NSULT #### [facility] [address] [address] [address] Deepika Terrell Glucose [Mass/Vol] 134 mg/dL Normal [facility] Comment on above: Performed By: #### I NSULT #### [facility] [address] [address] [address] Deepika Terrell HbA1c (Bld) [Mass fraction] 6.3 % Critically high 4.5-6.2 [facility] Comment on above: Performed By: #### I NSULT #### [facility] [address] [place] [address] Dr. Deepika Terrell POINT OF CARE GLUCOSEon 05-09 Glucose [Mass/Vol] 175 mg/dL Critically high 74-106 [facility] Comment on above: Performed By: #### I NSULT #### [facility] [address] [place] [address] Dr. Deepika Terrell Glucose [Mass/Vol] 151 mg/dL Critically high 74-106 [facility] Comment on above: Performed By: #### I NSULT #### [facility] [address] [place] [address] Dr. Deepika Terrell Glucose [Mass/Vol] 95 mg/dL Normal 74-106 [facility] Comment on above: Performed By: #### C BC #### [facility] [address] [place] [address] Dr. Deepika Terrell Glucose [Mass/Vol] 83 mg/dL Normal 74-106 [facility] Comment on above: Performed By: #### I NSULT #### [facility] [address] [place] [address] Dr. Deepika Terrell Glucose [Mass/Vol] 63 mg/dL Critically low 74-106 [facility] Comment on above: Performed By: #### P ERSMR #### [facility] [address] [place] [address] Dr. Deepika Terrell Glucose [Mass/Vol] 48 mg/dL Critically low 74-106 [facility] Comment on above: Result Comment: Resu lt Not Confirmed Performed By: #### B MP #### [facility] [address] [address] [address] Deepika Terrell Glucose [Mass/Vol] 62 mg/dL Critically low 74-106 [facility] Comment on above: Performed By: #### B MP #### [facility] [address] [address] [address] Deepika Terrell Glucose [Mass/Vol] 61 mg/dL Critically low 74-106 [facility] Comment on above: Performed By: #### C PEPT #### [facility] [address] [address] [address] Deepika Terrell PROF CHEM 8 (BAS METB)on Anion gap [Moles/Vol] 11.6 mmol/L Normal [facility] Comment on above: Performed By: #### B MP #### [facility] [address] [place] [address] Dr. Deepika Terrell Calcium [Mass/Vol] 8.2 mg/dL Critically low 8.5-10.1 [facility] Comment on above: Performed By: #### B MP #### [facility] [address] [place] [address] Dr. Deepika Terrell Chloride [Moles/Vol] 111 mmol/L Critically high 98-107 [facility] Comment on above: Performed By: #### B MP #### [facility] [address] [place] [address] Dr. Deepika Terrell CO2 [Moles/Vol] 23.5 mmol/L Normal 21.0-32.0 [facility] Comment on above: Performed By: #### B MP #### [facility] [address] [place] [address] Dr. Deepika Terrell Creatinine [Mass/Vol] 1.32 mg/dL Critically high 0.70-1.30 [facility] Comment on above: Performed By: #### B MP #### [facility] [address] [place] [address] Dr. Deepika Terrell EGFR-AF S[place]OREAN >60 Normal >=60 [facility] Comment on above: Performed By: #### B MP #### [facility] [address] [place], [place] [id number] Dr. Deepika Terrell EGFR-NON AF [place] 51 mL/min/1.73m2 Critically low >=60 [facility] Comment on above: Performed By: #### B MP #### [facility] [address] [address] [address] Deepika Terrell Glucose [Mass/Vol] 91 mg/dL Normal 74-106 [facility] Comment on above: Performed By: #### B MP #### [facility] [address] [address] [address] Deepika Terrell Potassium [Moles/Vol] 4.1 mmol/L Normal 3.5-5.1 [facility] Comment on above: Performed By: #### B MP #### [facility] [address] [address] [address] Deepika Terrell Sodium [Moles/Vol] 142 mmol/L Normal 136-145 [facility] Comment on above: Performed By: #### B MP #### [facility] [address] [address] [address] Deepika Terrell Urea nitrogen [Mass/Vol] 29.0 mg/dL Critically high 7.0-18.0 [facility] Comment on above: Performed By: #### B MP #### [facility] [address] [place] [address] Dr. Deepika Terrell Urea nitrogen/Creatinin e [Mass ratio] 22.0 mg/mg Normal [facility] Comment on above: Performed By: #### B MP #### [facility] [address] [address] [address] Deepika Terrell AMMONIAon 06-01-2022 Ammonia (P) [Moles/Vol] 17 umol/L Normal 11-32 [facility] Comment on above: Performed By: #### C BC #### [facility] [address] [address] [address] Deepika Terrell BNPon 06-01-2022 Natriuretic peptide B (Bld) [Mass/Vol] 132.0 pg/mL Normal <=1,800.0 [facility] Comment on above: Performed By: #### C BC #### [facility] [address] [address] [address] Deepika Terrell CBC AUTO DIFFon 06-01-2022 BASO # 0.1 103/ul Normal 0.0-0.1 [facility] Comment on above: Performed By: #### C BC #### [facility] [address] [address] [address] Deepika Terrell Basophils/100 WBC (Bld) 0.3 % Normal 0.2-2.0 [facility] Comment on above: Performed By: #### C BC #### [facility] [address] [place] [address] Dr. Deepika Terrell EO # 0.1 103/ul Normal 0.0-0.7 [facility] Comment on above: Performed By: #### C BC #### [facility] [address] [place] [address] Dr. Deepika Terrell Eosinophils/100 WBC (Bld) 0.9 % Normal 0.9-7.0 [facility] Comment on above: Performed By: #### C BC #### [facility] [address] [place] [address] Dr. Deepika Terrell Erythrocyte distribution width (RBC) [Ratio] 14.7 % Normal 11.0-15.0 [facility] Comment on above: Performed By: #### C BC #### [facility] [address] [place] [address] Dr. Deepika Terrell Hematocrit (Bld) [Volume fraction] 33.6 % Critically low 42.0-54.0 [facility] Comment on above: Performed By: #### C BC #### [facility] [address] [place] [address] Dr. Deepika Terrell Hemoglobin (Bld) [Mass/Vol] 10.9 g/dL Critically low 14.0-18.0 [facility] Comment on above: Performed By: #### C BC #### [facility] [address] [place] [address] Dr. Deepika Terrell IG # 0.07 10e3/ul Critically high 0.00-0.03 [facility] Comment on above: Performed By: #### C BC #### [facility] [address] [place] [address] Dr. Deepika Terrell IG % 0.5 % Normal 0.0-0.5 [facility] Comment on above: Performed By: #### C BC #### [facility] [address] [place] [address] Dr. Deepika Terrell LYMPH # 1.5 103/ul Normal 1.2-3.8 [facility] Comment on above: Performed By: #### C BC #### [facility] [address] [place] [address] Dr. Deepika Terrell Lymphocytes/100 WBC (Bld) 10.3 % Critically low 20.5-60.0 [facility] Comment on above: Performed By: #### C BC #### [facility] [address] [place] [address] Dr. Deepika Terrell MANUAL DIFF REQ NO Normal [facility] Comment on above: Performed By: #### C BC #### [facility] [address] [place] [address] Dr. Deepika Terrell MCH (RBC) [Entitic mass] 29.9 pg Normal 25.9-34.0 [facility] Comment on above: Performed By: #### C BC #### [facility] [address] [place] [address] Dr. Deepika Terrell MCHC (RBC) [Mass/Vol] 32.4 g/dL Normal 29.9-35.2 [facility] Comment on above: Performed By: #### C BC #### [facility] [address] [place] [address] Dr. Deepika Terrell MCV (RBC) [Entitic vol] 92.1 fL Normal 80.0-94.0 [facility] Comment on above: Performed By: #### C BC #### [facility] [address] [place] [address] Dr. Deepika Terrell MONO # 1.3 103/ul Critically high 0.3-0.8 [facility] Comment on above: Performed By: #### C BC #### [facility] [address] [address] [address] Deepika Terrell Monocytes/100 WBC (Bld) 8.9 % Normal 1.7-12.0 [facility] Comment on above: Performed By: #### C BC #### [facility] [address] [address] [address] Deepika Terrell NEUT # 11.8 103/ul Critically high 1.4-6.5 [facility] Comment on above: Performed By: #### C BC #### [facility] [address] [place] [address] Dr. Deepika Terrell Neutrophils/100 WBC (Bld) 79.1 % Critically high 43.0-75.0 [facility] Comment on above: Performed By: #### C BC #### [facility] [address] [place] [address] Dr. Deepika Terrell Platelet mean volume (Bld) [Entitic vol] 11.4 fL Normal 9.5-13.5 [facility] Comment on above: Performed By: #### C BC #### [facility] [address] [place] [address] Dr. Deepika Terrell PLT 324 103/ul Normal 150-450 [facility] Comment on above: Performed By: #### C BC #### [facility] [address] [place] [address] Dr. Deepika Terrell RBC 3.65 106/ul Critically low 4.70-6.10 [facility] Comment on above: Performed By: #### C BC #### [facility] [address] [place] [address] Dr. Deepika Terrell WBC 14.9 103/ul Critically high 4.0-11.0 [facility] Comment on above: Performed By: #### C BC #### [facility] [address] [place] [address] Dr. Deepika Terrell POINT OF CARE GLUCOSEon 05-09 Glucose [Mass/Vol] 29 mg/dL Critically low 74-106 [facility] Comment on above: Result Comment: Resu lt Not Confirmed Performed By: #### B MP #### [facility] [address] [place] [address] Dr. Deepika Terrell Glucose [Mass/Vol] 28 mg/dL Critically low 74-106 [facility] Comment on above: Result Comment: Will Repeat Test Performed By: #### C PEPT #### [facility] [address] [place] [address] Dr. Deepika Terrell PROF 14(COMP METB)on 023 Albumin [Mass/Vol] 3.3 g/dL Critically low 3.4-5.0 [facility] Comment on above: Performed By: #### C BC #### [facility] [address] [place] [address] Dr. Deepika Terrell Albumin/Globulin [Mass ratio] 1.0 {ratio} Normal [facility] Comment on above: Performed By: #### C BC #### [facility] [address] [place] [address] Dr. Deepika Terrell ALP [Catalytic activity/Vol] 75 U/L Normal 46-116 [facility] Comment on above: Performed By: #### C BC #### [facility] [address] [place] [address] Dr. Deepika Terrell ALT [Catalytic activity/Vol] 34 U/L Normal 16-63 [facility] Comment on above: Performed By: #### C BC #### [facility] [address] [place] [address] Dr. Deepika Terrell Anion gap [Moles/Vol] 14.0 mmol/L Normal [facility] Comment on above: Performed By: #### C BC #### [facility] [address] [place] [address] Dr. Deepika Terrell AST [Catalytic activity/Vol] 19 U/L Normal 15-37 [facility] Comment on above: Performed By: #### C BC #### [facility] [address] [place] [address] Dr. Deepika Terrell Bilirubin [Mass/Vol] 0.2 mg/dL Normal 0.2-1.0 [facility] Comment on above: Performed By: #### C BC #### [facility] [address] [address] [address] Deepika Terrell Calcium [Mass/Vol] 8.6 mg/dL Normal 8.5-10.1 [facility] Comment on above: Performed By: #### C BC #### [facility] [address] [address] [address] Deepika Terrell Chloride [Moles/Vol] 109 mmol/L Critically high 98-107 [facility] Comment on above: Performed By: #### C BC #### [facility] [address] [address] [address] Deepika Terrell CO2 [Moles/Vol] 23.9 mmol/L Normal 21.0-32.0 [facility] Comment on above: Performed By: #### C BC #### [facility] [address] [address] [address] Deepika Terrell Creatinine [Mass/Vol] 1.59 mg/dL Critically high 0.70-1.30 [facility] Comment on above: Performed By: #### C BC #### [facility] [address] [address] [address] Deepika Terrell EGFR-AF [place] 50 mL/min/1.73m2 Critically low >=60 [facility] Comment on above: Performed By: #### C BC #### [facility] [address] [address] [address] Deepika Terrell EGFR-NON AF [place] 41 mL/min/1.73m2 Critically low >=60 [facility] Comment on above: Performed By: #### C BC #### [facility] [address] [address] [address] Deepika Terrell Globulin (S) [Mass/Vol] 3.3 g/dL Normal [facility] Comment on above: Performed By: #### C BC #### [facility] [address] [address] [address] Deepika Terrell Glucose [Mass/Vol] 26 mg/dL Critically low 74-106 [facility] Comment on above: Performed By: #### C BC #### [facility] [address] [address] [address] Deepika Terrell Potassium [Moles/Vol] 3.9 mmol/L Normal 3.5-5.1 [facility] Comment on above: Performed By: #### C BC #### [facility] [address] [address] [address] Deepika Terrell Protein [Mass/Vol] 6.6 g/dL Normal 6.4-8.2 [facility] Comment on above: Performed By: #### C BC #### [facility] [address] [address] [address] Deepika Terrell Sodium [Moles/Vol] 143 mmol/L Normal 136-145 [facility] Comment on above: Performed By: #### C BC #### [facility] [address] [address] [address] Deepika Terrell Urea nitrogen [Mass/Vol] 34.0 mg/dL Critically high 7.0-18.0 [facility] Comment on above: Performed By: #### C BC #### [facility] [address] [address] [address] Deepika Terrell Urea nitrogen/Creatinin e [Mass ratio] 21.4 mg/mg Normal [facility] Comment on above: Performed By: #### C BC #### [facility] [address] [address] [address] Deepika Terrell TROPONIN, HIGH SENSITIVITYon 06-01-2022 HSTROP 13.2 pg/mL Normal 4.0-76.1 [facility] Comment on above: Result Comment: CUT- OFF POINTS HAVE BEEN ESTABLISHED BASED ON THE FOURTH UNIVERSAL DEFINITIONS OF MYOCARDIAL INFARCTION. THE UPPER REFERENCE LIMIT (URL) OF TROPONIN, DEFINED THE 99TH PERCENTILE OF cTnI DISTRIBUTION IN A REFERENCE POPULATION, HAS BEEN CONFIRMED THE DECISION THRESHOLD FOR [place] DIAGNOSIS. Performed By: #### B MP #### [facility] [address] [address] [address] Deepika Terrell GI PANEL (PCR)on 05-30-2022 Adenovirus F 40/41 Not detected Normal NOT DETECTED [facility] Comment on above: Performed By: #### P ERSMR #### [facility] [address] [address] [address] Deepika Terrell Astrovirus Not detected Normal NOT DETECTED [facility] Comment on above: Performed By: #### P ERSMR #### [facility] [address] [place] [address] Dr. Deepika Terrell C. Diff toxin A/B Not detected Normal NOT DETECTED [facility] Comment on above: Performed By: #### P ERSMR #### [facility] [address] [address] [address] Deepika Terrell Campylobacter Not detected Normal NOT DETECTED [facility] Comment on above: Performed By: #### P ERSMR #### [facility] [address] [place] [address] Dr. Deepika Terrell Cryptosporidium Not detected Normal NOT DETECTED [facility] Comment on above: Performed By: #### P ERSMR #### [facility] [address] [place] [address] Dr. Deepika Terrell Cyclos. Cayetanensis Not detected Normal NOT DETECTED [facility] Comment on above: Performed By: #### P ERSMR #### [facility] [address] [place] [address] Dr. Deepika Terrell E. Coli O157 Not Applicable Normal Not Applicable [facility] Comment on above: Performed By: #### P ERSMR #### [facility] [address] [place] [address] Dr. Deepika Terrell E. histolytica Not detected Normal NOT DETECTED [facility] Comment on above: Performed By: #### P ERSMR #### [facility] [address] [place] [address] Dr. Deepika Terrell EAEC Not detected Normal NOT DETECTED [facility] Comment on above: Performed By: #### P ERSMR #### [facility] [address] [place] [address] Dr. Deepika Terrell EIEC Not detected Normal NOT DETECTED [facility] Comment on above: Performed By: #### P ERSMR #### [facility] [address] [place] [address] Dr. Deepika Terrell EPEC Not detected Normal NOT DETECTED [facility] Comment on above: Performed By: #### P ERSMR #### [facility] [address] [address] [address] Deepika Terrell ETEC Not detected Normal NOT DETECTED [facility] Comment on above: Performed By: #### P ERSMR #### [facility] [address] [address] [address] Deepika Terrell GSrinivasa Lamblia Not detected Normal NOT DETECTED [facility] Comment on above: Performed By: #### P ERSMR #### [facility] [address] [address] [address] Deepika WOLFE CONTROLS PASSED Normal [facility] Comment on above: Performed By: #### P ERSMR #### [facility] [address] [address] [address] Deepika RYAN HEADER GI PANEL BACTERIA Normal [facility] Comment on above: Performed By: #### P ERSMR #### [facility] [address] [address] [address] Deepika CACERES ECOLI GI PANEL DIARRHEAGEN IC E.COLI / SHIGELLA Normal [facility] Comment on above: Performed By: #### P ERSMR #### [facility] [address] [place] [address] Dr. Deeipka CACERES INFO SEE BELOW Normal [facility] Comment on above: Result Comment: EAEC - Enteroaggregative E. Coli EPEC- Enteropathogenic E. Coli ETEC- Enterotoxigenic E. Coli lt/st STEC- Shigella-like toxin-producing E. Coli stx1/stx2 EIEC- Shigella/Enteroinvasive E. Coli Performed By: #### P ERSMR #### [facility] [address] [address] [address] Deepika CACERES PARASITES GI PANEL PARASITES Normal [facility] Comment on above: Performed By: #### P ERSMR #### [facility] [address] [address] [address] Deepika CACERES VIRUS GI PANEL VIRUSES Normal [facility] Comment on above: Performed By: #### P ERSMR #### [facility] [address] [address] [address] Deepika Terrell Norovirus GI/GII Not detected Normal NOT DETECTED [facility] Comment on above: Performed By: #### P ERSMR #### [facility] [address] [address] [address] Deepika Blood. Shigelloides Not detected Normal NOT DETECTED [facility] Comment on above: Performed By: #### P ERSMR #### [facility] [address] [address] [address] Deepika Terrell Rotavirus A Not detected Normal NOT DETECTED [facility] Comment on above: Performed By: #### P ERSMR #### [facility] [address] [place] [address] Dr. Deepika Terrell Salmonella Not detected Normal NOT DETECTED [facility] Comment on above: Performed By: #### P ERSMR #### [facility] [address] [address] [address] Deepika Terrell Sapovirus Not detected Normal NOT DETECTED [facility] Comment on above: Performed By: #### P ERSMR #### [facility] [address] [place] [address] Dr. Deepika Terrell STEC Not detected Normal NOT DETECTED [facility] Comment on above: Performed By: #### P ERSMR #### [facility] [address] [address] [address] Deepika Terrell Vibrio Not detected Normal NOT DETECTED [facility] Comment on above: Performed By: #### P ERSMR #### [facility] [address] [address] [address] Deepika Terrell Vibrio Cholera Not detected Normal NOT DETECTED [facility] Comment on above: Performed By: #### P ERSMR #### [facility] [address] [address] [address] Deepika Terrell Y. Enterocolitica Not detected Normal NOT DETECTED [facility] Comment on above: Performed By: #### P ERSMR #### [facility] [address] [address] [address] Deepika Terrell PROF CHEM 8 (BAS METB)on Anion gap [Moles/Vol] 13.9 mmol/L Normal [facility] Comment on above: Performed By: #### P ERSMR #### [facility] [address] [address] [address] Deepika Terrell Calcium [Mass/Vol] 8.9 mg/dL Normal 8.5-10.1 [facility] Comment on above: Performed By: #### P ERSMR #### [facility] [address] [address] [address] Deepika Terrell Chloride [Moles/Vol] 104 mmol/L Normal 98-107 [facility] Comment on above: Performed By: #### P ERSMR #### [facility] [address] [place] [address] Dr. Deepika Terrell CO2 [Moles/Vol] 26.3 mmol/L Normal 21.0-32.0 [facility] Comment on above: Performed By: #### P ERSMR #### [facility] [address] [address] [address] Deepika Terrell Creatinine [Mass/Vol] 1.70 mg/dL Critically high 0.70-1.30 [facility] Comment on above: Performed By: #### P ERSMR #### [facility] [address] [place] [address] Dr. Deepika Terrell EGFR-AF [place] 47 mL/min/1.73m2 Critically low >=60 [facility] Comment on above: Performed By: #### P ERSMR #### [facility] [address] [address] [address] Deepika Terrell EGFR-NON AF [place] 38 mL/min/1.73m2 Critically low >=60 [facility] Comment on above: Performed By: #### P ERSMR #### [facility] [address] [address] [address] Deepkia Terrell Glucose [Mass/Vol] 62 mg/dL Critically low 74-106 [facility] Comment on above: Performed By: #### P ERSMR #### [facility] [address] [address] [address] Deepika Terrell Potassium [Moles/Vol] 4.2 mmol/L Normal 3.5-5.1 [facility] Comment on above: Performed By: #### P ERSMR #### [facility] [address] [address] [address] Deepika Terrell Sodium [Moles/Vol] 140 mmol/L Normal 136-145 [facility] Comment on above: Performed By: #### P ERSMR #### [facility] [address] [address] [address] Deepika Terrell Urea nitrogen [Mass/Vol] 34.0 mg/dL Critically high 7.0-18.0 [facility] Comment on above: Performed By: #### P ERSMR #### [facility] [address] [address] [address] Deepika Terrell Urea nitrogen/Creatinin e [Mass ratio] 20.0 mg/mg Normal [facility] Comment on above: Performed By: #### P ERSMR #### [facility] [address] [address] [address] Deepika Terrell ECHOCARDIO M/2D COMPLETEon 1 06-02-2021 ECHOCARDIO M/2D COMPLETE Patient: MASON NATARAJAN Exam Date: 04/01/2022 : 1935 Gender:M [facility] #: [id number] Family : Order #: [id number] CLICK HERE TO VIEW EXAM ECHOCARDIOGRAM REPORT [...] 04/09/2022 at 08:52 Normal [facility] CBC AUTO DIFFon 02-05-2022 BASO # 0.1 103/ul Normal 0.0-0.1 [facility] Comment on above: Performed By: #### C BC #### [facility] [address] [place] [address] Dr. Deepika Terrell Basophils/100 WBC (Bld) 0.5 % Normal 0.2-2.0 [facility] Comment on above: Performed By: #### C BC #### [facility] [address] [place] [address] Dr. Deepika Terrell EO # 0.3 103/ul Normal 0.0-0.7 [facility] Comment on above: Performed By: #### C BC #### [facility] [address] [place] [address] Dr. Deepika Terrell Eosinophils/100 WBC (Bld) 3.3 % Normal 0.9-7.0 [facility] Comment on above: Performed By: #### C BC #### [facility] [address] [place] [address] Dr. Deepika Terrell Erythrocyte distribution width (RBC) [Ratio] 14.0 % Normal 11.0-15.0 [facility] Comment on above: Performed By: #### C BC #### [facility] [address] [place] [address] Dr. Deepika Terrell Hematocrit (Bld) [Volume fraction] 41.2 % Critically low 42.0-54.0 [facility] Comment on above: Performed By: #### C BC #### [facility] [address] [place] [address] Dr. Deepika Terrell Hemoglobin (Bld) [Mass/Vol] 13.4 g/dL Critically low 14.0-18.0 [facility] Comment on above: Performed By: #### C BC #### [facility] [address] [place] [address] Dr. Deepika Terrell IG # 0.04 10e3/ul Critically high 0.00-0.03 [facility] Comment on above: Performed By: #### C BC #### [facility] [address] [place] [address] Dr. Deepika Terrell IG % 0.4 % Normal 0.0-0.5 [facility] Comment on above: Performed By: #### C BC #### [facility] [address] [place] [address] Dr. Deepika Terrell LYMPH # 3.4 103/ul Normal 1.2-3.8 [facility] Comment on above: Performed By: #### C BC #### [facility] [address] [place] [address] Dr. Deepika Terrell Lymphocytes/100 WBC (Bld) 36.2 % Normal 20.5-60.0 [facility] Comment on above: Performed By: #### C BC #### [facility] [address] [place] [address] Dr. Deepika Terrell MANUAL DIFF REQ NO Normal [facility] Comment on above: Performed By: #### C BC #### [facility] [address] [place] [address] Dr. Deepika Terrell MCH (RBC) [Entitic mass] 30.9 pg Normal 25.9-34.0 [facility] Comment on above: Performed By: #### C BC #### [facility] [address] [place] [address] Dr. Deepika Terrell MCHC (RBC) [Mass/Vol] 32.5 g/dL Normal 29.9-35.2 [facility] Comment on above: Performed By: #### C BC #### [facility] [address] [place] [address] Dr. Deepika Terrell MCV (RBC) [Entitic vol] 94.9 fL Critically high 80.0-94.0 [facility] Comment on above: Performed By: #### C BC #### [facility] [address] [address] [address] Deepika Terrell MONO # 0.9 103/ul Critically high 0.3-0.8 [facility] Comment on above: Performed By: #### C BC #### [facility] [address] [place] [address] Dr. Deepika Terrell Monocytes/100 WBC (Bld) 9.9 % Normal 1.7-12.0 [facility] Comment on above: Performed By: #### C BC #### [facility] [address] [place] [address] Dr. Deepika Terrell NEUT # 4.7 103/ul Normal 1.4-6.5 [facility] Comment on above: Performed By: #### C BC #### [facility] [address] [place] [address] Dr. Deepika Terrell Neutrophils/100 WBC (Bld) 49.7 % Normal 43.0-75.0 [facility] Comment on above: Performed By: #### C BC #### [facility] [address] [place] [address] Dr. Deepika Terrell Platelet mean volume (Bld) [Entitic vol] 10.1 fL Normal 9.5-13.5 [facility] Comment on above: Performed By: #### C BC #### [facility] [address] [place] [address] Dr. Deepika Terrell PLT 290 103/ul Normal 150-450 [facility] Comment on above: Performed By: #### C BC #### [facility] [address] [place] [address] Dr. Deepika Terrell RBC 4.34 106/ul Critically low 4.70-6.10 [facility] Comment on above: Performed By: #### C BC #### [facility] [address] [address] [address] Deepika Terrell WBC 9.4 103/ul Normal 4.0-11.0 [facility] Comment on above: Performed By: #### C BC #### [facility] [address] [place] [address] Dr. Deepika Terrell FREE T3on 02-05-2022 FREE T3 1.83 pg/mlL Critically low 2.18-3.98 [facility] Comment on above: Performed By: #### C PEPT #### [facility] [address] [place] [address] Dr. Deepika Terrell GLYCOHEMOGLOBIN A1Con 2021 ADA RECOMMENDATION SEE BELOW Normal [facility] Comment on above: Result Comment: ADA RECOMMENDED LIMIT 4.0 - 6.0 ADA THERAPEUTIC TARGET < 7.0 ACTION SUGGESTED > 7.0 Performed By: #### A 1C #### [facility] [address] [place] [address] Dr. Deepika Terrell Glucose [Mass/Vol] 114 mg/dL Normal [facility] Comment on above: Performed By: #### A 1C #### [facility] [address] [place] [address] Dr. Deepika Terrell HbA1c (Bld) [Mass fraction] 5.6 % Normal 4.5-6.2 [facility] Comment on above: Performed By: #### A 1C #### [facility] [address] [place] [address] Dr. Deepika Terrell LIPID PROFILEon 02-05-2022 CHOL-HDL RATIO NORM SEE BELOW Normal [facility] Comment on above: Result Comment: 3.3 - 4.4 LOW RISK 4.4 - 7.1 AVERAGE RISK 7.1 - 11.0 MODERATE RISK >11.0 HIGH RISK Performed By: #### C PEPT #### [facility] [address] [place] [address] Dr. Deepika Terrell Cholesterol [Mass/Vol] 187 mg/dL Normal <=200 [facility] Comment on above: Performed By: #### C PEPT #### [facility] [address] [address] [address] Deepika Terrell Cholesterol in HDL [Mass/Vol] 49 mg/dL Normal 40-60 [facility] Comment on above: Performed By: #### C PEPT #### [facility] [address] [address] [address] Deepika Terrell Cholesterol in LDL [Mass/Vol] 123.8 mg/dL Normal [facility] Comment on above: Performed By: #### C PEPT #### [facility] [address] [address] [address] Deepika Terrell Cholesterol.total/ Cholesterol in HDL [Mass ratio] 3.8 {ratio} Normal [facility] Comment on above: Performed By: #### C PEPT #### [facility] [address] [place] [address] Dr. Deepika Terrell HDL NORMAL > or = 60 mg/dl - LO W CARDIOVASCULAR RISK <40 mg/dl - HIGH CARDIOVASCULAR RISK Normal [facility] Comment on above: Performed By: #### C PEPT #### [facility] [address] [place] [address] Dr. Deepika Terrell LDL CALC NORMAL SEE BELOW Normal [facility] Comment on above: Result Comment: <100 mg/dl OPTIMAL 100 - 129 mg/dl NEAR OR ABOVE OPTIMAL 130 - 159 mg/dl BORDERLINE HIGH 160 - 189 mg/dl HIGH >190 mg/dl VERY HIGH Performed By: #### C PEPT #### [facility] [address] [address] [address] Deepika Terrell Triglyceride [Mass/Vol] 71 mg/dL Normal <=150 [facility] Comment on above: Performed By: #### C PEPT #### [facility] [address] [place] [address] Dr. Deepika Terrell VLDL CALC 14.2 mg/dL Normal [facility] Comment on above: Performed By: #### C PEPT #### [facility] [address] [place] [address] Dr. Deepika Terrell PROF 14(COMP METB)on 11-01-2 022 Albumin [Mass/Vol] 4.0 g/dL Normal 3.4-5.0 [facility] Comment on above: Performed By: #### C PEPT #### [facility] [address] [place] [address] Dr. Deepika Terrell Albumin/Globulin [Mass ratio] 1.2 {ratio} Normal [facility] Comment on above: Performed By: #### C PEPT #### [facility] [address] [place] [address] Dr. Deepika Terrell ALP [Catalytic activity/Vol] 61 U/L Normal 46-116 [facility] Comment on above: Performed By: #### C PEPT #### [facility] [address] [place] [address] Dr. Deepika Terrell ALT [Catalytic activity/Vol] 38 U/L Normal 16-63 [facility] Comment on above: Performed By: #### C PEPT #### [facility] [address] [place] [address] Dr. Deepika Terrell Anion gap [Moles/Vol] 8.1 mmol/L Normal [facility] Comment on above: Performed By: #### C PEPT #### [facility] [address] [place] [address] Dr. Deepika Terrell AST [Catalytic activity/Vol] 19 U/L Normal 15-37 [facility] Comment on above: Performed By: #### C PEPT #### [facility] [address] [place] [address] Dr. Deepika Terrell Bilirubin [Mass/Vol] 0.4 mg/dL Normal 0.2-1.0 [facility] Comment on above: Performed By: #### C PEPT #### [facility] [address] [place] [address] Dr. Deepika Terrell Calcium [Mass/Vol] 9.4 mg/dL Normal 8.5-10.1 [facility] Comment on above: Performed By: #### C PEPT #### [facility] [address] [place] [address] Dr. Deepika Terrell Chloride [Moles/Vol] 104 mmol/L Normal 98-107 [facility] Comment on above: Performed By: #### C PEPT #### [facility] [address] [address] [address] Deepika Terrell CO2 [Moles/Vol] 32.6 mmol/L Critically high 21.0-32.0 [facility] Comment on above: Performed By: #### C PEPT #### [facility] [address] [address] [address] Deepika Terrell Creatinine [Mass/Vol] 1.63 mg/dL Critically high 0.70-1.30 [facility] Comment on above: Performed By: #### C PEPT #### [facility] [address] [address] [address] Deepika Terrell EGFR-AF SINGAPOREAN 49 mL/min/1.73m2 Critically low >=60 [facility] Comment on above: Performed By: #### C PEPT #### [facility] [address] [address] [address] Deepika Terrell EGFR-NON AF [place] 40 mL/min/1.73m2 Critically low >=60 [facility] Comment on above: Performed By: #### C PEPT #### [facility] [address] [address] [address] Deepika Terrell Globulin (S) [Mass/Vol] 3.3 g/dL Normal [facility] Comment on above: Performed By: #### C PEPT #### [facility] [address] [address] [address] Deepika Terrell Glucose [Mass/Vol] 127 mg/dL Critically high 74-106 T [facility] Comment on above: Performed By: #### C PEPT #### [facility] [address] [address] [address] Deepika Terrell Potassium [Moles/Vol] 4.7 mmol/L Normal 3.5-5.1 [facility] Comment on above: Performed By: #### C PEPT #### [facility] [address] [address] [address] Deepika Terrell Protein [Mass/Vol] 7.3 g/dL Normal 6.4-8.2 [facility] Comment on above: Performed By: #### C PEPT #### [facility] [address] [address] [address] Deepika Terrell Sodium [Moles/Vol] 140 mmol/L Normal 136-145 [facility] Comment on above: Performed By: #### C PEPT #### [facility] [address] [place], [place] [address] Dr. Deepika Terrell Urea nitrogen [Mass/Vol] 37.0 mg/dL Critically high 7.0-18.0 [facility] Comment on above: Performed By: #### C PEPT #### [facility] [address] [address] [address] Deepika Terrell Urea nitrogen/Creatinin e [Mass ratio] 22.7 mg/mg Normal [facility] Comment on above: Performed By: #### C PEPT #### [facility] [address] [place] [address] Dr. Deepika Terrell T4on 02-05-2022 T4 [Mass/Vol] 8.40 ug/dL Normal 4.50-12.10 [facility] Comment on above: Performed By: #### C PEPT #### [facility] [address] [address] [address] Deepika Terrell TSHon 02-05-2022 TSH 1.762 uIU/mL Normal 0.358-3.740 [facility] Comment on above: Performed By: #### C PEPT #### [facility] [address] [place] [address] Dr. Deepika Terrell US [place] DOP LEG [...] Date: 2021-12-26 13:02 Normal [facility] PROF CHEM 8 (BAS METB)on Anion gap [Moles/Vol] 15.1 mmol/L Normal [facility] Comment on above: Performed By: #### B MP #### [facility] [address] [address] [address] Deepika Terrell Calcium [Mass/Vol] 9.2 mg/dL Normal 8.5-10.1 [facility] Comment on above: Performed By: #### B MP #### [facility] [address] [address] [address] Deepika Terrell Chloride [Moles/Vol] 102 mmol/L Normal 98-107 [facility] Comment on above: Performed By: #### B MP #### [facility] [address] [address] [address] Deepika Terrell CO2 [Moles/Vol] 25.8 mmol/L Normal 21.0-32.0 [facility] Comment on above: Performed By: #### B MP #### [facility] [address] [address] [address] Deepika Terrell Creatinine [Mass/Vol] 1.70 mg/dL Critically high 0.70-1.30 [facility] Comment on above: Performed By: #### B MP #### [facility] [address] [address] [address] Deepika Terrell EGFR-AF [place] 47 mL/min/1.73m2 Critically low >=60 [facility] Comment on above: Performed By: #### B MP #### [facility] [address] [address] [address] Deepika Terrell EGFR-NON AF [place] 38 mL/min/1.73m2 Critically low >=60 [facility] Comment on above: Performed By: #### B MP #### [facility] [address] [address] [address] Deepika Terrell Glucose [Mass/Vol] 75 mg/dL Normal 74-106 [facility] Comment on above: Performed By: #### B MP #### [facility] [address] [address] [address] Deepika Terrell Potassium [Moles/Vol] 4.9 mmol/L Normal 3.5-5.1 [facility] Comment on above: Performed By: #### B MP #### [facility] [address] [address] [address] Deepika Terrell Sodium [Moles/Vol] 138 mmol/L Normal 136-145 [facility] Comment on above: Performed By: #### B MP #### [facility] [address] [address] [address] Deepika Terrell Urea nitrogen [Mass/Vol] 45.0 mg/dL Critically high 7.0-18.0 [facility] Comment on above: Performed By: #### B MP #### [facility] [address] [address] [address] Deepika Terrell Urea nitrogen/Creatinin e [Mass ratio] 26.5 mg/mg Normal [facility] Comment on above: Performed By: #### B MP #### [facility] [address] [address] [address] Deepika Terrell PROF CHEM 8 (BAS METB)on Anion gap [Moles/Vol] 14.2 mmol/L Normal [facility] Comment on above: Performed By: #### B MP #### [facility] [address] [place] [address] Dr. Deepika Terrell Calcium [Mass/Vol] 9.4 mg/dL Normal 8.5-10.1 [facility] Comment on above: Performed By: #### B MP #### [facility] [address] [place] [address] Dr. Deepika Terrell Chloride [Moles/Vol] 106 mmol/L Normal 98-107 [facility] Comment on above: Performed By: #### B MP #### [facility] [address] [address] [address] Deepika Terrell CO2 [Moles/Vol] 25.1 mmol/L Normal 21.0-32.0 [facility] Comment on above: Performed By: #### B MP #### [facility] [address] [address] [address] Deepika Terrell Creatinine [Mass/Vol] 1.72 mg/dL Critically high 0.70-1.30 [facility] Comment on above: Performed By: #### B MP #### [facility] [address] [address] [address] Deepika Terrell EGFR-AF [place] 46 mL/min/1.73m2 Critically low >=60 [facility] Comment on above: Performed By: #### B MP #### [facility] [address] [address] [address] Deepika Terrell EGFR-NON AF [place] 38 mL/min/1.73m2 Critically low >=60 [facility] Comment on above: Performed By: #### B MP #### [facility] [address] [address] [address] Deepika Terrell Glucose [Mass/Vol] 51 mg/dL Critically low 74-106 [facility] Comment on above: Performed By: #### B MP #### [facility] [address] [place] [address] Dr. Deepika Terrell Potassium [Moles/Vol] 6.2 mmol/L Critically high 3.5-5.1 [facility] Comment on above: Performed By: #### B MP #### [facility] [address] [place] [address] Dr. Deepika Terrell Sodium [Moles/Vol] 138 mmol/L Normal 136-145 [facility] Comment on above: Performed By: #### B MP #### [facility] [address] [address] [address] Deepika Terrell Urea nitrogen [Mass/Vol] 42.0 mg/dL Critically high 7.0-18.0 [facility] Comment on above: Performed By: #### B MP #### [facility] [address] [address] [address] Deepika Terrell Urea nitrogen/Creatinin e [Mass ratio] 24.4 mg/mg Normal [facility] Comment on above: Performed By: #### B MP #### [facility] [address] [place] [address] Dr. Deepika Terrell MRI LSPINE WO CONon [...] by: KURT DON Date: 2021-09-14 14:24 Normal [facility] XR LSPINE MIN 4 VIEWSon [...] by: KURT DON Date: 2021-09-10 20:46 Normal [facility] GLYCOHEMOGLOBIN A1Con 2021 ADA RECOMMENDATION SEE BELOW Normal [facility] Comment on above: Result Comment: ADA RECOMMENDED LIMIT 4.0 - 6.0 ADA THERAPEUTIC TARGET < 7.0 ACTION SUGGESTED > 7.0 Performed By: #### C PEPT #### [facility] [address] [place] [address] Dr. Deepika Terrell Glucose [Mass/Vol] 131 mg/dL Normal [facility] Comment on above: Performed By: #### C PEPT #### [facility] [address] [address] [address] Deepika Terrell HbA1c (Bld) [Mass fraction] 6.2 % Normal 4.5-6.2 [facility] Comment on above: Performed By: #### C PEPT #### [facility] [address] [address] [address] Deepika Terrell Blood Urea Nitrogenon 2020 Urea nitrogen [Mass/Vol] 23 mg/dL Normal - [facility] Comment on above: Performed By: #### B UN, CREAT #### [address] abdomen pelvis w conon CT abdomen pelvis w [facility] [place] [address] CT Scan Report Signed Patient: Mason Natarajan MR#: [id number] 47 : 1935 Acct:[id number] Age/Sex: 85 / M ADM Date: 10/26/20 Loc: Room: Type: [facility] Attending Dr: Srinivasan Beaulieu MD Ordering [...] Eugene Cummings M.D.10/26/2020 4:54 PM Dictation Location: [place] [address] Transcribed By: [facility] 10/26/20 9934 Dictated By: Eugene Cummings II, MD 10/26/20 8681 Signed By: 10/26/[address] [facility] Creatinineon 10-26-2020 Creatinine [Mass/Vol] 1.44 mg/dL High 0.64-1.27 [facility] Comment on above: Performed By: #### B UN, CREAT #### [facility] [address] Creatinine Clr Calc Pharmacy 39.[address] [facility] Comment on above: Result Comment: PERF ORMED BY: [address] [place] [address] PATHOLOGIST MILL ROLL REWINDER ANTHONY WEAVER M.D. Performed By: #### B UN, CREAT #### [facility] [address] Estimated GFR ( Zahida 56 [facility] Comment on above: Result Comment: GFR estimated reference range: According to KDOQI guidelines, <60 ml/min/1.73m2 is sufficient to diagnose a patient with chronic kidney disease. Performed By: #### B UN, CREAT #### [facility] [address] Estimated GFR (Non- Am 47 [facility] Comment on above: Performed By: #### B UN, CREAT #### [facility] [address] [place] [address] Glucose Poct Glucometerson 0 10-26-2020 Glucose [Mass/Vol] 100 mg/dL Normal [facility] Comment on above: Result Comment: [place] Glucose Reference Range is dependent on time and content of last meal. Glucose of more than 200 mg/dL in a nonstressed, ambulatory subject supports the diagnosis of Diabetes Mellitus. PERFORMED BY: [place] [address] PATHOLOGIST MILL ROLL REWINDER ANTHONY WEAVER M.D. Performed By: #### G ANGELA #### Point of Care testing , [facility] 10-26-2020 L ------- Specimen: [id number] Received: 10/26/20 Status: SOLEDAD Viral Num: [id number] Spec Type: Surgical Subm Dr: Srinivasan Beaulieu MD Tissues: A Colon Biopsy (LEFT COLON BX) Procedures: HE Stain/2, Gross/Micro L4 Patient Age/Sex Location Account Attending Physician Mason Natarajan [id number] Srinivasan Beaulieu MD SPEC NUM: [id number] RECD: 10/26/20 STATUS: SOLEDAD VIRAL NUM: [id number] AALIYAH: 10/26/20- SUBM DR: Srinivasan Beaulieu MD ENTERED: 10/26/20-[address]: SPEC TYPE: Surgical DEPT: S ENTERED BY: [id number] RECV BY: [id number] ORDERED: HE Stain/2, Gross/Micro L4 ORDERED: HE [...] microscopic findings support the above pathologic diagnosis. [id number] Specimen: [id number] Received: 10/26/20 Status: SOLEDAD Viral Num: [id number] Spec Type: Surgical Subm Dr: Srinivasan Beaulieu MD Tissues: A Colon Biopsy (LEFT COLON BX) Procedures: HE Stain/2, Gross/Micro L4 Patient: NatarajanMason [id number] (Continued) Signed (signature on file) Anthony Weaver MD 10/27/[address] [facility] History and Physicalon 01-15 HIM IP Note OR Merchandise Coordinator [facility] Surgical Pathologyon 017 Surgical Pathology (NOTE)[id number] LABORATORIESCONSULTING PATHOLOGISTS CORPORATIONANATOMIC CLKN[address] [place], [place] [id number] Fax: SURGICAL PATHOLOGY CONSULTATIONPatient Name: Amy NATARAJAN Rec: [id number] Number: [id number]: 01/15/2017Received: 01/15/2017Reported: 01/16/2017 08:36-- Diagnosis --INTRAOCULAR LENS: GROSS ONLY.Kan Allred M.D.Electronically Signed Out tb04/16/11Clinical InformationPre-op Diagnosis: DISLOCATED IOL LEFT EYE Operative Findings: IOL GROSS ONLYOperation Performed: VITRECTOMY 25 GAUGE LENSECTOMY, KENALOGINJECTIONSource of Specimen1: IOL - GROSS ONLYGross Description MASON NATARAJAN IOL GROSS ONLY 0.6 cm long x < 0.1 cm in diameterclear translucent lens with two tags. Gross only. Normal [facility] Vital Signs Date Time Vital Sign Value Performing Clinician Facility 11-13-2023 09:33-0400 Diastolic blood pressure 82 mm[Hg] Linda Montelongo MD Work Phone: [facility] 11-13-2023 09:33-0400 Heart rate 64 /min Linda Montelongo MD Work Phone: [facility] 11-13-2023 09:33-0400 Systolic blood pressure 156 mm[Hg] Linda Montelongo MD Work Phone: [facility] 11-13-2023 09:18-0400 Body height 172.7 cm [facility]ongo [facility] 11-13-2023 09:18-0400 Body mass index (BMI) [Ratio] 27.67 kg/m2 Linda Montelongo MD [facility] 11-13-2023 09:18-0400 Body weight 82.56 kg Linda Montelongo MD [facility] 11-13-2023 09:18-0400 SaO2% (BldA) [Mass fraction] 94 % Linda Montelongo MD [facility] 11-26-2022 09:45-0400 Body height 172.72 cm Chevy Robins Other [employer] Other 11-26-2022 09:45-0400 Body mass index (BMI) [Ratio] 24.63 kg/m2 Chevy Robins Other [employer] Other 11-26-2022 09:45-0400 Body weight 73.48 kg Chevy Robins Other [employer] Other 11-26-2022 09:45-0400 Diastolic blood pressure 61 mm[Hg] Chevy Straussy Other [facility] Other 11-26-2022 09:45-0400 Systolic blood pressure 135 mm[Hg] Chevy Robins Other [employer] Other 12-27-2021 14:00-0400 Body height 172.72 cm Chevy Robins Other [facility] Other 12-27-2021 14:00-0400 Body mass index (BMI) [Ratio] 28.43 kg/m2 Chevy Robins Other [employer] Other 12-27-2021 14:00-0400 Body weight 84.82 kg Chevy Robins Other [facility] [employer] Other 12-27-2021 14:00-0400 Diastolic blood pressure 75 mm[Hg] Chevy Straussy Other [facility] [employer] Other 12-27-2021 14:00-0400 Systolic blood pressure 171 mm[Hg] Chevy Robins Other [facility] [employer] Other 11-27-2021 09:51-0400 Diastolic blood pressure 71 mm[Hg] [place] REYNOLDS [facility] [place] 11-27-2021 09:51-0400 Mean blood pressure 97 mm[Hg] [place] REYNOLDS [facility] [place] 11-27-2021 09:51-0400 Respiratory rate 49 /min [place] COOK [facility] [place] 11-27-2021 09:51-0400 Systolic blood pressure 150 mm[Hg] [place] COOK [facility] [place] 11-27-2021 09:39-0400 Blood Pressure Location [place] COOK [facility] [place] 11-27-2021 09:39-0400 Diastolic blood pressure 67 mm[Hg] [place] COOK [facility] [place] 11-27-2021 09:39-0400 Heart rate 45 /min [place] REYNOLDS [facility] [place] 11-27-2021 09:39-0400 Systolic blood pressure 168 mm[Hg] [place] REYNOLDS [facility] [place] 12-27-2020 14:00-0400 Body height 172.72 cm Chevy Rosalesreynaldo Other [employer] Other 12-27-2020 14:00-0400 Body mass index (BMI) [Ratio] 28.13 kg/m2 Chevy Robins Other [facility] [employer] Other 12-27-2020 14:00-0400 Body weight 83.92 kg Chevy Robins Other [facility] [employer] Other Encounters Encounter Date Encounter Type Care Provider Facility Start: 07-13-2024 End: 07-13-2024 ambulatory [facility] Start: 04-30-2024 End: 04-30-[address] [facility] Start: 01-05-2024 End: 01-05-[address] [facility] Start: 11-13-2023 End: 11-13-2023 Office outpatient new 45 minutes Linda Montelongo MD Work Phone: [facility] Comment on above: Bilateral carotid ar linnea stenosis without cerebral infarction (Primary Dx); Occlusion and stenosis of unspecified carotid artery Start: 11-11-2023 ambulatory Darien REYNOLDS Facility : [facility] Start: 06-16-2023 End: 06-17-2023 ambulatory Darien REYNOLDS Facility: [facility] Start: 06-16-2023 End: 06-16-2023 Patient encounter procedure Darien Blood GAIL [facility] Start: 11-26-2022 End: 11-26-2022 ambulatory Chevy Robins Other [facility] [employer] Other Start: 11-26-2022 Patient encounter procedure Chevy [facility]ins [facility] Start: 08-13-2022 End: 08-13-[address] ERIN BERG . Facility:[facility] Start: 08-12-2022 ambulatory Alli MUKHERJEE Facility : [facility] Start: 08-09-2022 End: 08-10-[address] ERIN [...] 12-27-2021 End: 12-27-2021 ambulatory [place]ins Other [facility] [employer] Other Start: 12-27-2021 Patient encounter procedure Chevy Robins [facility] Start: 12-26-2021 End: 12-27-[address] ERIN BERG . Facility:[facility] Start: 11-27-2021 End: 11-27-2021 Patient encounter procedure Darien REYNOLDS [facility] Start: 10-18-2021 End: 10-26-[address] DOCTOR POON Facility:[facility] Start: 09-21-2021 End: 09-22-2021 ambulatory MELYSSA JOYA Facility:[facility] Start: 09-18-2021 End: 09-19-2021 ambulatory MELYSSA JOYA Facility:[facility] Start: 09-14-2021 End: 09-15-[address] ERIN BERG . Facility:[facility] Start: 09-10-2021 End: 09-11-[address] ERIN BERG . Facility:[facility] Start: 08-21-2021 End: 08-22-2021 ambulatory NONE LISTED REQUEST Facility:[facility] Start: 12-27-2020 Patient encounter procedure Chevy Robins [facility] Start: 01-21-2017 End: 01-22-2017 Ambulatory DEFAULT PHYSICIAN Facility:[facility] Start: 01-17-2017 End: 01-18-2017 Ambulatory DEFAULT PHYSICIAN Facility:[facility] Start: 01-15-2017 End: 01-15-2017 Ambulatory CHET NESBITT [facility] Procedures Date Procedure Procedure Detail Performing Clinician Start: 02-05-[address] CHRIS BERG . Comment on above: Performed By: #### C PEPT #### [facility] [address] [place] [address] Dr. Deepika Terrell Start: 12-04-2020 Transurethral water vapor ablation of prostate Darien REYNOLDS Start: 10-12-2020 Cystoscopy Darien DUARTE Start: 01-15-2017 SURGICAL PATHOLOGY NVFARTUN NESBITT Start: 01-15-2017 POC GLUCOSE FINGERSTICK CHET NESBITT Start: 01-15-2017 DISCHARGE PATIENT DYLAN Ted NESBITT Start: 01-15-2017 SURGICAL PATHOLOGY NVFARTUN NESBITT Start: 01-15-2017 ASSESS CHET Rose Start: [...] C ALC. ANION GAP CHET NESBITT Appendectomy Zkatter Cataract (disorder) Zkatter Cataract (morphologi c abnormality) Flud Colonoscopy Flud Hernia of abdominal cavity (disorder) Zkatter Plan of Treatment Date Care Activity Detail Author Start: 11-12-2024 End: 11-12-2024 US Carotid arteries - bilateral Vas carotid duplex bilateral Vascular Ultrasound Routine Occlusion and stenosis of unspecified carotid artery Bilateral carotid artery stenosis without cerebral infarction Expected: 11/12/2024 (Approximate), Expires: 11/12/2024 [employer] Phone: Comment on above: Expected: 11/12/2024 (Approximate), Expires: 11/12/2024 Start: 12-07-2023 Influenza vaccination Influenza Vacc ine [facility] Start: 05-30-2023 COVID-19 Vaccine ( season) COVID-19 Vaccine ( season) [facility] Start: 2000 Fall Risk Screening Fall Risk Screen ing [facility] Start: 1954 DTaP,Tdap and Td Vaccines (1 - Tdap) DTaP,Tdap and Td Vaccines (1 - Tdap) [employer] Start: 1953 Adult BMI Follow Up Plan [facility] Start: [facility] Adult [facility] Screening [facility] Start: 1947 Depression [facility]ening [facility] Start: 1947 Tobacco Screening [facility]ening [facility] Start: 1935 Medicare Annual Wellness Visit Medicare Annual Wellness Visit [facility] [employer] Immunizations Immunization Date Immunization Notes Care Provider Fa cili 05-02-2023 zoster vaccine recombinant Flud [facility] 02-24-2023 zoster vaccine recombinant Flud [facility] 01-27-2023 influenza virus vaccine, unspecified formulation Flud [facility] 06-02-2022 influenza virus vaccine, unspecified formulation Flud [facility] 06-02-2022 pneumococcal conjuga te vaccine, 13 valent Flud [facility] 01-21-2022 influenza virus vaccine, unspecified formulation Flud [facility] 09-27-2021 SARS-CoV-2 (COVID-19 ) mRNA-1273 vaccine Flud [facility] 04-24-2021 SARS-CoV-2 (COVID-19 ) mRNA BNT-162b2 vax [facility]ud [facility] 01-25-2021 influenza virus vaccine, unspecified formulation Flud [facility] 03-02-2021 SARS-CoV-2 (COVID-19 ) mRNA-1273 vaccine Darien REYNOLDS [facility] 05-09-2020 SARS-CoV-2 (COVID-19 ) mRNA-1273 vaccine Darien REYNOLDS [facility] 04-11-2020 SARS-CoV-2 (COVID-19 ) mRNA-1273 vaccine Darien REYNOLDS [facility] 01-14-2020 influenza virus vaccine, unspecified formulation Darien [employer] [facility] 01-06-2020 influenza virus vaccine, unspecified formulation Darien [employer] [facility] 01-28-2018 influenza virus vaccine, unspecified formulation Darien [employer] [facility] 02-05-2017 pneumococcal conjuga te vaccine, 13 valent Darien [employer] [facility] 01-27-2017 influenza virus vaccine, unspecified formulation Darien [employer] [facility] 01-13-2017 influenza virus vaccine, unspecified formulation Darien [employer] [facility] 01-06-2017 influenza virus vaccine, unspecified formulation Darien [employer] [facility] 01-03-2016 influenza virus vaccine, unspecified formulation Darien [employer] [facility] 01-06-2015 influenza virus vaccine, unspecified formulation Darien REYNOLDS [facility] 02-03-2014 influenza virus vaccine, unspecified formulation Darien REYNOLDS [facility] 01-25-2009 influenza, whole Darien Martins [facility] Payers Date Payer Category Payer Unknown [id number] 2017 Unknown 2017 Medicare [id number] 2000 Medicare MEDICARE MEDICAR E PART A & B [id number] 2000-Present [phone] [address] [place] [address] [id number] 1959 Medicare [id number] 1959 Self-pay 1959 Unknown [id number] 1935 Unknown [id number] 2.16.840.1.796524.3.579.2.593 1935 Unknown [id number] 2.16.840.1.610111.3.579.2.593 1935 Unknown [id number] 2.16.840.1.329050.3.579.2.593 1935 Unknown [id number] 2.16.840.1.376330.3.579.2.593 1935 Unknown [id number] 2.16.840.1.543178.3.579.2.593 1935 Unknown [id number] 2.16.840.1.618775.3.579.2.593 1935 Unknown [id number] 2.16.840.1.696695.3.579.2.593 1935 Unknown [id number] 2.16.840.1.534067.3.579.2.593 1935 Unknown [id number] 2.16.840.1.229514.3.579.2.593 1935 Unknown [id number] 2.16.840.1.180766.3.579.2.593 1935 Unknown [id number] 2.16.840.1.271490.3.579.2.593 1935 Unknown [id number] 2.16.840.1.093618.3.579.2.593 1935 Unknown [id number] 2.16.840.1.193632.3.579.2.593 1935 Unknown [id number] 2.16.840.1.279406.3.579.2.593 1935 Unknown [id number] 2.16.840.1.713497.3.579.2.593 1935 Unknown [id number] 2.16.840.1.373075.3.579.2.593 1935 Unknown [id number] 2.16.840.1.624251.3.579.2.727 1935 Unknown [id number] 2.16.840.1.586014.3.579.2.727 1935 Unknown [id number] 2.16.840.1.175527.3.579.2.727 Unknown [id number] 2.16.8 40.1.945716.19 Unknown [id number] 2.16.840.1.430726.3.579.2.593 Unknown [id number] 2.16.840.1.530155.3.579.2.593 Social History Date Type Detail Facility Start: 05-18-2020 End: 11-13-2023 Sex Assigned At [facility] [employer] Other Start: 11-27-2021 End: 06-11-2022 Tobacco smoking status Never smoked tobacco (finding) [facility] Tobacco smoking status Never [facility] Start: 11-13-2023 Tobacco smoking stat us NHIS Ex-smoker [facility] End: 08-01-1947 History of tobacco use Current smoker [facility] End: 08-01-1947 History of tobacco use Cigarette Smoker [facility] Start: 11-13-2023 Tobacco use and exposure Smokeless tobacco non-user [facility] Start: 11-13-2023 Alcoholic beverage intake Current drinker of alcohol (finding) [facility] Start: 05-18-2020 End: 11-13-2023 Alcoholic beverage intake [facility] Start: 07-29-2017 Alcohol Comment 1 daily [facility] Start: 1935 Sex assigned at Not on file P [facility] Medical Equipment Procedure Code Equipment Code Equipment Origin al Text Equipment Identifier Dates Kit Iol +18.5 D Cnvxpln [facility] Rpl [id number] - [id number] - [id number] Start: 07-31-2017 Functional Status Date Assessment Result Facility 11-27-2021 Functional Status N/A [facility] Clinical Notes 12-27-2020 to 07-13-2024 Assessment & Plan Note - Linda Montelongo MD - 11/13/2023 9:37 AM EDTAssessment & Plan Note - Linda Montelongo MD - 11/13/2023 9:37 AM EDTMradha Montelongo MD - 11/13/2023 9:20 AM EDT Note Date & Type Note Facility 07-13-2024 Note [place] [facility] Consult [place] [facility] - [facility] Reason for visit: HPI: Mason Natarajan is a 89 y.o. year old [...] Insecurity: No Food Insecurity (11/13/2023) Received from [employer], [employer] Hunger Screening Within the past 12 months [...] on file Intimate Partner Violence: Unknown (05/29/2023) [place] Safety & Environment Fear of Current or [...] Chest Exam: normal curvature, no thoracic deformity Au (more content not included)... [facility] 04-30-2024 Note Cardiology Follow Up Progress Note [...] risk factor modific (more content not included)... [facility] 01-05-2024 Note Cardiology Follow Up Progress Note [...] were provided. P (more content not included)... [facility] 11-13-2023 Evaluation + Plan note Associated Problem(s): Bilateral carotid artery stenosis without cerebral infarction We will start him on aspirin Plavix and statin. I discussed with him risk factors modification and close surveillance.Will get an ultrasound in a year. [facility] 11-13-2023 Miscellaneous Notes Associated Problem(s): Bilateral carotid artery stenosis without cerebral infarction We will start him on aspirin Plavix and statin. I discussed with him risk factors modification and close surveillance.Will get an ultrasound in a year. documented in this encounter [facility] 11-13-2023 History of Present illness Narrative Images from the original note [...] mg total) by mouth in the morning. hoyojqxx-nappxgbu-clpdlmk fum (MULTI VITAMIN) 9 mg iron/15 mL [...] Date Cataract Diabetes mellitus type 2, controlled ([facility]) Hypertension Hypothyroidism Injury of back 1985 back surgery Visual impairment glasses Past Surgical History: Past Surgical History: Procedure Laterality Date APPENDECTOMY BACK SURGERY CATARACT EXTRACTION IMPLANT SECONDARY LENS Left 07/31/2017 Performed by Orly Mares MD at [facility] SHOULDER SURGERY left rotator cuff TONSILLECTOMY [...] Interpersonal Safety: Unknown (05/29/2023) Received from [facility] Safety & Environment Fear of Current or [...] and stenosis of unspecified carotid artery - [facility] [place] Linda Montelongo MD, MC, RPVI, FSVS, FACS [facility] This note was created with the assistance of a speech recognition program. While intending to generate a timely document that accurately reflects the content of the visit, no guarantee can be provided that every grammatical or spelling mistake has been or will be identified or corrected. Thank you for your understanding. documented in this encounter [employer] 11-26-2022 Evaluation note Encounter Date Diagnosis Assessment Notes Nov, Microscopic colitis (ICD-10 - K52.89) Patient to use OTC probiotic and OTC Fiber supplement to help normalize the stools. Patient to finish remaining 2 weeks of medication and call if diarrhea returns after stopping the medication. RTO in 1 year. [employer] Other 09-22-2022 Evaluation note* Encounter Date Diagnosis Assessment Notes Treatment Notes Treatment Clinical Notes Dec, Microscopic colitis (ICD-10 - K52.89) REASSURANCE PT ADVISED TO ADD FIBER SUPPLEMENT TO DIET F/U PRN [employer] Other 08-23-2022 Hospital Discharge instructions Patient Education [...] urethra. Follow these instructions at home: Take onmr-udc-dwgdkfq and prescription medicines only as told by [...] 03/24/2006 Document Revised: 02/16/2019 Document Reviewed: 04/28/2017 [employer] Patient Education 2020 [employer]. Follow Up Care 05/30/2021 14:56:10 With:Darien REYNOLDS MD, URL Address: [address] [place], [place] [address]- When:6 months [facility] [phone] Evaluation note* Encounter Date Diagnosis Assessment Notes Treatment Notes Treatment Clinical Notes Dec, Microscopic colitis (ICD-10 - K52.89) Colitis home care material was printed will taper the budesonide at this time patient to finish the 9 mg taper then move to the 6 mg taper. [employer] Other Evaluation + Plan note Future Appointments Appointment Date:06/11/2022 09:30:00 AM Scheduled Provider:Darien REYNOLDS MD Location:[facility] Appointment Type:URO Office Visit [facility] Evaluation note* Diagnosis Bilateral carotid artery stenosis without cerebral infarction- Primary Occlusion and stenosis of unspecified carotid artery [facility] - Reported* Type Description Date Surgical History vasectomy 1979 Surgical History umbilical hernia repair 1982 Surgical History back surgery-lower 1984 Surgical History appendectomy 1992 Surgical History cataract removal L 1999 Surgical History rotator cuff L 2008 Surgical History elbow surgery R 2008 Surgical History carpal tunnel release R 2008 Surgical History cataract removal R 2013 Surgical History eye surgery L Surgical History torn macula L 1998 Hospitalization History SEE ABOVE SURGICAL HX [employer] Other [place] general Narrative - Reported* Type Description Date [...] History A1c down- [place] [facility] ford 05/2022 [employer] Other Hospital course Narrative No data available for this section [facility] Discharge instructions No data available for this section [facility] [employer] InstructionsNot on filedocumented in this encounter [facility] No data available for this section [facility] [employer] Summary Purpose Family History No Family History [...] Vas carotid duplex bilateral Linda Montelongo MD [address], [place] [address] Referral ID Status Reason Start Date Expiration Date V isits Requested Visits Authorized [id number] Pending Review 11/13/2023 11/12/2024 1 1 Additional Source Comments (unrecognized sect ion and content) No Status Records FoundNo Status Records FoundNo Status Records FoundNo Status Records FoundNo Status Records FoundNo Status Records Found INFORMATION SOURCE (unrecogn ized section and content) DATE CREATED AUTHOR 09/30/2017 [facility] DATE CREATED AUTHOR AUTHOR'S ORGANIZ ATION 09/30/2017 [facility] DATE CREATED AUTHOR AUTHOR'S ORGANIZ ATION 10/30/2020 [facility] DATE CREATED AUTHOR AUTHOR'S ORGANIZ ATION 08/19/2022 [facility] DATE CREATED AUTHOR AUTHOR'S ORGANIZ ATION 08/10/2023 [facility] DATE CREATED AUTHOR AUTHOR'S ORGANIZ ATION 07/19/2024 [facility] REASON FOR VISIT (unrecogniz ed section and content) Reason Comments carotid stenosis Venous duplex in med ia Specialty Diagnoses / Procedures Referred By Odalys teresa Referred To Contact Vascular Surgery Diagnoses Occlusion and stenosis of unspecified carotid artery Erin Berg MD [address] [place] [phone] Linda Montelongo MD [facility] [place] [address] Referral ID Status Reason Start Date Expiration Date Visits Requested Visits Authorized [id number] Pending Review Specialty Services Required 11/04/2023 11/03/2024 1 1 Care Team (unrecognized sect ion and content) Assistant Manager Bilingual Relationship Specialty Start Date End Date Erin Berg MD [address] [phone] PCP - General 07/31/17 FOR RECORDS PERTAINING [...] BE BASED ON THE PRIMARY CLINICAL RECORDS. [employer] [facility]. provides no warranty or guarantee of the accuracy or completeness of information in this document.
[2024-07-26 09:06] LABS: Hemoglobin 12.4 g/dL (14.0-18.0); Mean Corpuscular HGB Conc 31.8 g/dL (29.9-35.2); Mean Corpuscular Hemoglobin 29.5 pg (25.9-34.0); Mean Corpuscular Volume 92.6 fL (80.0-94.0); Mean Platelet Volume 10.4 fL (9.5-13.5); Platelet Count 244 10^3/uL (150-450); Red Blood Count 4.21 10^6/uL (4.70-6.10); White Blood Count 10.5 10^3/uL (4.0-11.0)
[2024-07-26 09:15] LABS: Creatinine Urine Random <13.00 mg/dL (20.00-300.00); Microalbumin Urine Random <1.3 mg/dL (<=30.0); Total Protein Urine Random <6.0 mg/dL (<=11.9)
[2024-07-26 09:42] LABS: Bilirubin Urine NEGATIVE (NEGATIVE); Blood Urine NEGATIVE (NEGATIVE); Clarity Urine CLEAR (CLEAR); Color Urine LT. YELLOW (YELLOW); Glucose Urine UA NEGATIVE (NEGATIVE); Ketones Urine NEGATIVE (NEGATIVE); Leukocyte Esterase Urine NEGATIVE (NEGATIVE); Nitrite Urine NEGATIVE (NEGATIVE); Protein Urine NEGATIVE (NEG/TRACE); Specific Gravity Urine <=1.005 (1.005-1.025); Urobilinogen Urine 0.2 EU/dL (0.2-1.0); pH Urine 5.5 (5.0-9.0)
[2024-07-26 09:46] LABS: Albumin Level 3.7 g/dL (3.4-5.0); Calcium 9.1 mg/dL (8.5-10.1); Chloride 107 mmol/L (98-107); Estimated GFR (African America 59 (>=60 mL/min/1.73m^2); Estimated GFR (Non-African Ame 49 (>=60 mL/min/1.73m^2); Glucose 141 mg/dL (74-106); Magnesium 2.1 mg/dL (1.8-2.4); Phosphorus 3.5 mg/dL (2.6-4.7); Sodium 143 mmol/L (136-145); Uric Acid 6.4 mg/dL (3.5-7.2)
[2024-07-27 11:12] LABS: PTH, Intact 37 pg/mL (15-65)
== END 2024-07-26 08:31 | disposition home or self-care (01) ==
LOC: LAB 08:32
PROVIDERS: PCP Family Medicine; Visit Provider Internal Medicine Nephrology
DX: N40.1 Benign prostatic hyperplasia with lower urinary tract symptoms (principal); E55.9 Vitamin D deficiency, unspecified; I12.9 Hypertensive chronic kidney disease with stage 1 through stage 4 chronic kidney disease, or unspecified chronic kidney disease; E87.5 Hyperkalemia; N18.32 Chronic kidney disease, stage 3b
CPT/HCPCS: 36415; 80069; 81003; 82043; 82306; 82570; 83735; 83970; 84156; 84550; 85027

== ENCOUNTER 2024-07-29 07:50 | Outpatient (OUT) | payer MEDICARE, OTHER, SELFPAY ==
--- NOTE | 2024-07-29 07:53 | US_ITS ---
[facility] [place] [id number] Patient Name: LILIANA BENITO MRN: [id number] date: 1935 Sex: M Assigned Patient Location: US Current Patient Location: US Accession/Order Number: [id number] Exam Date: 07/29/2024 13:09 Report Date: 07/29/2024 13:09 At the request of: JOSE LUNDBERG Procedure: US renal BI BILATERAL RENAL AND BLADDER ULTRASOUND CLINICAL HISTORY: Stage 3 Chronic Kidney Disease, Hypertensive Renal Disease COMPARISON: None FINDINGS: Estimation of renal size is approximately 11.1 cm on the right and 9.3 cm on the left. No contour deforming mass, shadowing stone or hydronephrosis. The urinary bladder is partially distended with a volume of ml. No shadowing stone or focal lesion. US/US renal BI IMPRESSION: No acute findings. Impression dictated by: Ofelia Arreaga Jr.OSrinivasa07/29/2024 1:09 PM Dictation Location: [place] [address] Electronically authenticated by: [id number] Y Date: 07/29/2024 13:09
== END 2024-07-29 07:51 | disposition home or self-care (01) ==
LOC: US 07:50
PROVIDERS: PCP Family Medicine; Visit Provider Internal Medicine Nephrology
DX: N40.1 Benign prostatic hyperplasia with lower urinary tract symptoms (principal); E55.9 Vitamin D deficiency, unspecified; I12.9 Hypertensive chronic kidney disease with stage 1 through stage 4 chronic kidney disease, or unspecified chronic kidney disease; E87.5 Hyperkalemia; N18.32 Chronic kidney disease, stage 3b
CPT/HCPCS: 76775

== ENCOUNTER 2024-10-13 06:37 | Outpatient (OUT) | payer MEDICARE, OTHER, SELFPAY ==
--- OUTSIDE RECORDS SUMMARY | 2024-07-13 14:35 | XMS_ITS ---
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 / I11.9(ICD-10) ELENI KELLOGG Active [facility] PROCEDURES No Procedure Records Found RESULTS ORDERS ONLY Observed: 07/15/2024 12:00 AM Status: COMPLETED Source: [facility] [id number] Liliana Natarajan M Date Provider Department Center 07/15/2024 PEDRO HUANG [facility] Family History Problem Relation Age of Onset No Known Problems Mother Diabetes Father Hypertension Father Family Status - Relation Status Age at Mother Father Sister Brother PROGRESS Observed: 07/13/2024 2:45 PM Status: COMPLETED Source: [facility] Electrophysiology Consult Note [place] [facility] Reason for visit: HPI: Liliana Natarajan is a 89 y.o. year old with past medical history of Hypertension, diabetes mellitus was previously seen by as a part of perioperative restratification. He was noted to have first-degree AV block with no symptoms associated and so was placed on 30-day event monitor as he was noted to have sinus bradycardia. A treadmill stress was also also ordered to assess for chronotropic incompetence. I do not see any evidence of a treadmill that was done for a 30-day event monitor that was placed shows sinus rhythm with occasional evidence of PVCs as well as nonsustained atrial tachycardia there was episode of long RP tachycardia noted on 05/08/2024 at 7:30 PM which could be either sinus tachycardia or atrial tachycardia other than this no atrial fibrillation was seen PMH: Past Medical History: Diagnosis Date Abnormal ECG Bradycardia Diabetes (CMS/HCC) Hypertension Thyroid atrophy PSH: Past Surgical History: Procedure Laterality Date APPENDECTOMY BACK SURGERY CARPAL TUNNEL RELEASE EYE SURGERY HERNIA REPAIR SHOULDER SURGERY SH: Social Determinants of Health Tobacco Use: Medium Risk (07/13/2024) Patient History Smoking Tobacco Use: Former Smokeless Tobacco Use: Never Passive Exposure: Not on file Alcohol Use: Not on file Financial Resource Strain: Not on file Food Insecurity: No Food Insecurity (11/13/2023) Received from [employer] [employer] [facility] Within the past 12 months we worried whether our food would run out before we got money to buy more.: Never True Within the past 12 months the food we bought just didn't last and we didn't have money to get more.: Never True Transportation Needs: Not on file Physical Activity: Not on file Stress: Not on file Social Connections: Not on file Intimate Partner Violence: Unknown (05/29/2023) [place] Safety & [place] Fear of Current or Ex-Partner: Not on file Emotionally Abused: Not on file Physically Abused: Not on file Sexually Abused: Not on file Physically or Sexually Abused: Not on file Depression: Not on file Housing Stability: Not on file Utilities: Not on file Health Literacy: Not on file Allergies: Allergies Allergen Reactions Adhesive Skin breakdown Weight: 74.4kg Visit Vitals BP 153/65 (BP Location: Left arm, Patient Position: Sitting) Pulse 55 Ht 1.727 m (5' 8 ) Wt 74.4 kg (164 lb) SpO2 96% BMI 24.94 kg/m??? Smoking Status Former BSA 1.89 m??? Meds: Current Outpatient Medications on File Prior to Visit Medication Sig Dispense Refill atorvastatin (Lipitor) 40 mg tablet Take 40 mg by mouth in the morning. blood pressure monitor kit 1 kit 2 times daily. 1 kit 0 cholecalciferol (Vitamin D-3) 25 MCG (1000 UT) capsule 1 capsule in the morning. clopidogrel (Plavix) 75 mg tablet Take 75 mg by mouth in the morning. hydrALAZINE (Apresoline) 100 mg tablet Take 1 tablet (100 mg) by mouth two times daily. 180 tablet 3 levothyroxine (Synthroid, Levoxyl) 50 mcg tablet Take 50 mcg by mouth in the morning. liothyronine (Cytomel) 5 mcg tablet Take 10 mcg by mouth in the morning. lisinopril 20 mg tablet TAKE 1 TABLET BY MOUTH IN THE MORNING 90 tablet 3 NIFEdipine XL (Procardia XL) 60 mg 24 hr tablet Take 1 tablet (60 mg) by mouth in the morning. Do not crush, chew, or split. STOP AMLODIPINE 90 tablet 3 oxybutynin (Ditropan) 5 mg tablet oxybutynin chloride 5 mg tablet TAKE 1 TABLET BY MOUTH DAILY pantoprazole (ProtoNix) 40 mg EC tablet Take 40 mg by mouth before breakfast. sucralfate (Carafate) 1 gram tablet TAKE 1 TABLET BY MOUTH ON AN EMPTY STOMACH BEFORE MEALS and BEFORE bedtime tamsulosin (Flomax) 0.4 mg 24 hr capsule tamsulosin 0.4 mg capsule TAKE 1 CAPSULE BY MOUTH EVERY DAY tiZANidine (Zanaflex) 4 mg tablet tizanidine 4 mg tablet TAKE 1 TABLET BY MOUTH AT BEDTIME amLODIPine (Norvasc) 10 mg tablet amlodipine 10 mg tablet TAKE 1 TABLET BY MOUTH EVERY DAY diclofenac (Voltaren) 75 mg EC tablet 75 mg every 12 (twelve) hours. gabapentin (Neurontin) 100 mg capsule Take 100 mg by mouth two times daily. potassium chloride CR (Klor-Con) 10 mEq ER tablet Take 10 mEq by mouth in the morning and at bedtime. No current facility-administered medications on file prior to visit. ROS: Review of Systems Cardiovascular: Positive for irregular heartbeat (occaasional) and leg swelling. Musculoskeletal: Positive for joint pain. Physical Exam: Constitutional General Appearance: well-nourished, well-developed, appears stated age Level of Distress: comfortable Eyes THOMAS Neck Neck: supple, trachea midline Carotid Arteries: bilateral normal upstroke, no bruits Jugular Veins: normal jugular venous pressure Thyroid: not enlarged Lungs Respiratory Effort: unlabored Chest Exam: normal curvature, no thoracic deformity Auscultation: clear, no wheezing, no rales, no rhonchi Cardiovascular Chest wall: Rate And Rhythm: regular Heart Sounds: normal S1, normal s2, no gallop Systolic Murmur: not heard Diastolic Murmur: not heard Extremities: no cyanosis, no edema, no peripheral signs of emboli Peripheral Pulses Radial Pulse: normal Abdomen Inspection and Palpation: soft, non distended, no bruit, non tender Neurologic Gait: normal gait Labs: @LABRESULTS@ No results found for: CHOLESTEROL TOTAL , HDL , LDL CALC , LDL DIRECT , TRIGLYCERIDES , TSH , T3 TOTAL , T4 TOTAL , THYROID PEROXIDASE AB , BNP EKG: No results found for this or any previous visit (from the past 4464 hour(s)). Echo: 01/16/24 Stress test: Coronary angiogram: @CATH@ Diagnostic Imaging: No images are attached to the encounter. Assessment and Plan: - PVC: Patient has a 5% PVC burden but no evidence of cardiomyopathy or nonsustained VT or syncope. Will continue to monitor echocardiogram on a yearly basis. - HTN blood pressure is fairly reasonably controlled> he is on multiple medications including beta-blockers calcium channel blockers MARV inhibitors. I am not sure whether he is on Norvasc as well as Procardia as they are both belonging to the calcium channel juan in [facility] need to be only on 1. I would advise that he increase his lisinopril to 40 mg once daily. - HLD: Continue statin Henry Riggins MD Cardiac Electrophysiology [facility] OFFICE VISIT Observed: 07/13/2024 2:45 PM Status: COMPLETED Source: [facility] [id number] Liliana Natarajan M Date Provider Department Center 07/13/2024 241-HENRY RIGGINS CARD [facility] Family History Problem Relation Age of Onset No Known Problems Mother Diabetes Father Hypertension Father Family Status - Relation Status Age at Mother Father Sister Brother Level of Service:77797 CT OFFICE/OUTPATIENT NEW MODERATE MDM 45 MINUTES 36 Observed: 05/05/2024 11:23 AM Status: COMPLETED Source: [facility] Regarding lab results from : I spoke with Dr. Kellogg regarding elevated potassium and renal function. He advised patient stop potassium, repeat labs in 5-7 days, and also see his log buyer if he has one. I then spoke with Mr. Natarajan - who said Dr. Berg already advised him to stop potassium. He also said Dr. Berg ordered repeat labs to be done in the next few days. He does not see a log buyer but agreed to a referral. I put one in and faxed it to [facility] in [place]. Patient verbalized understanding. PROGRESS Observed: 04/30/2024 9:00 AM Status: COMPLETED Source: [facility] Cardiology Follow Up Progres s Note HPI: Liliana Natarajan is a 88 [...] regimen -Optimize medical management -Aggressive risk factor modification -Plan of care discussed with patient. All questions were answered. Patient voices understanding and is agreeable with current plan. -Patient was educated on red flag symptoms. Strict return precautions were provided. Patient verbalizes understanding -Follow-up in cardiology clinic in 6 months, or sooner as needed Eleni Kellogg MD Interventional Cardiology [facility] OFFICE VISIT Observed: 04/30/2024 9:00 AM Status: COMPLETED Source: [facility] [id number] Liliana Natarajan [birth year] M Date Provider Department Center 04/30/2024 3848-ELENI KELLOGG [facility] Family History Problem Relation Age of Onset Diabetes Father Hypertension Father Family Status - Relation Status Age at Father Level of Service:46599 CT OFFICE/OUTPATIENT ESTABLISHED MOD MDM 30 MIN PROGRESS Observed: 01/05/2024 11:00 AM Status: COMPLETED Source: [facility] Cardiology Follow Up Progres s Note Chief Complaint: Follow up HPI: Liliana [...] flag symptoms. Strict return precautions were provided. Patient verbalizes understanding -Follow-up in cardiology clinic in 6 months, or sooner as needed Eleni Kellogg MD Interventional Cardiology [facility] OFFICE VISIT Observed: 01/05/2024 11:00 AM Status: COMPLETED Source: [facility] [id number] Liliana Natarajan M Date Provider Department Center 01/05/2024 3848-ELENI KELLOGG CARD [facility] Family History Problem Relation Age of Onset Diabetes Father Hypertension Father Family Status - Relation Status Age at Father Level of Service:50098 CT OFFICE/OUTPATIENT ESTABLISHED LOW MDM 20 MIN ALLERGIES DATE TYPE / CODE NAME / CODE REACTION SEVERITY SOURCE 01/14/2017 Drug Class/336076494 (SNOMED CT) ADHESIVE [facility] /[id number](SN OMED CT) No Known Medication Allergies [facility] ENCOUNTERS ADMIT/DISCHARGE ACCOUNT NUMBER ADMITTING ENCOUNTER CLASS LOCATION SOURCE 07/13/2024/ 5 [id number] Ambulatory Building:[facility] 04/30/2024/ 5 [id number] Ambulatory Building:[facility] 01/05/2024/ 4 [id number] Ambulatory Building:[facility] 11/11/2023 [id number] Ambulatory Maricruz ding:TRA Sun [facility] PAYERS ENCOUNTER GUARANTOR PAYER SUBSCRIBER SOURCE 07/13/2024 Primary Insurance:MEDICARE licy Number: [id number] Date:[id number] Name:Medicare LILIANA NATARAJANB: [id number] [place] [address] [facility] 07/13/2024 [facility] Number: [id number] Date:2019-03-07 LILIANA NATARAJANB: [id number] [place]OFFI SOUSA [id number] [facility] 04/30/2024 Primary Insurance:MEDICAREPo licy Number: [id number] Date:0949-09-32Woai Name:Medicare PHILLIP E LAMBDOB: [id number] [place] [address] [facility] 04/30/2024 Secondary Insurance:[employer] Number: [id number] Date:2019-03-07 LILIANA THORNTONB: [id number] [place] [address] [facility] 01/05/2024 Primary Insurance:MEDICAREPo licy Number: [id number] Date:[id number] Name:Medicare PHILLIP E LAMBDOB: [id number] [place] [address] [facility] 01/05/2024 Secondary Insurance:[employer] Number: [id number] Date:2019-03-07 LILIANA THORNTONB: [id number] [place] [address] [facility] 11/11/2023 LILIANA AU: FLORINDA STTel: (HP) Primary Insurance:MEDICAREPo licy Number: [id number] Date:[id number] [place] [address] [address]BK: [facility] 11/11/2023 Secondary Insurance:[employer] Number: [id number] Date:[id number] CHAO [id number]: [facility]
[2024-10-13 06:57] LABS: Hematocrit 33.0 % (42.0-54.0); Hemoglobin 11.0 g/dL (14.0-18.0); Immature Granulocytes Abs Auto 0.03 10^3/uL (0.00-0.03); Immature Granulocytes Pct Auto 0.3 % (0.0-0.5); Lymphocytes Absolute Auto 3.5 10^3/uL (1.2-3.8); Mean Corpuscular HGB Conc 33.3 g/dL (29.9-35.2); Mean Corpuscular Hemoglobin 29.8 pg (25.9-34.0); Mean Corpuscular Volume 89.4 fL (80.0-94.0); Platelet Count 282 10^3/uL (150-450); Red Blood Count 3.69 10^6/uL (4.70-6.10); White Blood Count 10.6 10^3/uL (4.0-11.0)
[2024-10-13 07:34] LABS: Alanine Aminotransferase 21 U/L (16-63); Albumin Globulin Ratio 1.4; Albumin Level 3.6 g/dL (3.4-5.0); Alkaline Phosphatase 85 U/L (46-116); Anion Gap 13.9; Aspartate Amino Transferase 11 U/L (15-37); Blood Urea Nitrogen 25.0 mg/dL (7.0-18.0); Calcium 9.1 mg/dL (8.5-10.1); Carbon Dioxide 25.4 mmol/L (21.0-32.0); Chloride 103 mmol/L (98-107); Cholesterol 80 mg/dL (<=200); Estimated GFR (African America 57 (>=60 mL/min/1.73m^2); Estimated GFR (Non-African Ame 47 (>=60 mL/min/1.73m^2); Free T3 2.05 pg/mL (2.18-3.98); Globulin 2.6 g/dL; Glucose 105 mg/dL (74-106); HDL Cholesterol 47 mg/dL (40-60); Potassium 5.3 mmol/L (3.5-5.1); Sodium 137 mmol/L (136-145); Thyroid Stimulating Hormone 1.011 uIU/mL (0.358-3.740); Total Protein 6.2 g/dL (6.4-8.2); Triglycerides 54 mg/dL (<=150); VLDL CHOLESTEROL 10.8 mg/dL
== END 2024-10-13 06:38 | disposition home or self-care (01) ==
LOC: LAB 06:39
PROVIDERS: PCP Family Medicine; Visit Provider Family Medicine
DX: K58.9 Irritable bowel syndrome, unspecified (principal); I10 Essential (primary) hypertension; M54.50 Low back pain, unspecified; E78.5 Hyperlipidemia, unspecified; R73.09 Other abnormal glucose; Z12.5 Encounter for screening for malignant neoplasm of prostate
CPT/HCPCS: 36415; 80053; 80061; 83036; 84436; 84443; 84481; 85025; G0103

== ENCOUNTER 2024-10-19 08:24 | Outpatient (OUT) | payer MEDICARE, OTHER, SELFPAY ==
--- OUTSIDE RECORDS SUMMARY | 2024-10-19 08:29 | XMS_ITS | Clinical Summary ---
Author Organization [facility] Address [address] [place] [address] Care Team Providers Care Deck Specialist Name Role Phone Art Berg MD Primary Care Provider [phone] Allergies Active Allergy Reactions Criticality Noted Date Comments Adhesive Tape Low 01/14/2017 Skin breakdown Medications glimepiride (AMARYL) 2 MG tablet Take 2 mg by mouth every morning (before breakfast) Active lisinopril (PRINIVIL;ZESTRI L) 20 MG tablet Take 20 mg by mouth daily Active levothyroxine (SYNTHROID) 50 MCG tablet Take 50 mcg by mouth every morning Active Multiple Vitamins-Mineral s (THERAPEUTIC MULTIVITAMIN-MIN ERALS) tablet Take 1 tablet by mouth daily Active GLUCOSAMINE CHONDROITIN COMPLX PO Take 1 tablet by mouth 2 times daily Active Cinnamon 500 MG CAPS Take 1 capsule by mouth daily Active Coenzyme Q10 (CO Q 10) 100 MG CAPS Take 1 capsule by mouth daily Active vitamin E 1000 units capsule Take 1,000 Units by mouth daily Active Lutein 20 MG TABS Take 20 mg by mouth daily Active [place] 3 1200 MG CAPS Take 1 capsule by mouth daily Active LECITHIN PO Take 400 mg by mouth daily Active Cholecalciferol (VITAMIN D3) 1000 units CAPS Take 1 capsule by mouth daily Active [place], Serenoa repens, (SAW PALMETTO PO) Take 900 mg by mouth daily Active Hypromellose (ARTIFICIAL TEARS OP) Place 1 drop into both eyes as needed Active Social History Tobacco Use Types Packs/Day Years Used Date Smoking Tobacco: Former Cigarettes Q uit: 1956 Smokeless Tobacco: Never Alcohol Use Standard Drinks/Week Comments No 0 (1 standard drink = 0.6 oz pur e alcohol) Sex and Gender Information Value Date Recorded Sex Assigned at Not on file Legal Sex Male 12:37 PM EDT Gender Identity Not on file Sexual Orientation Not on file Last Filed Vital Signs Vital Sign Reading Time Taken Comments Blood Pressure 159/74 01/15/2017 2:15 PM EDT Pulse 57 01/15/2017 1:15 PM EDT Temperature 36.6 C (97.9 F) 01/15/2017 2:15 PM EDT Respiratory Rate 18 01/15/2017 1:15 PM EDT Oxygen Saturation 96% 01/15/2017 2:15 PM EDT Inhaled Oxygen Concentration - - Weight 86.2 kg (190 lb) 01/15/2017 9:02 AM EDT Height 172.7 cm (5' 8 ) 01/15/2017 9:02 AM EDT Body Mass Index 28.89 01/15/2017 9:02 AM EDT Plan of Treatment Not on file Medical Devices Implanted Type Area Budget Report Clerk Device Identifier Shelf Expiration Date Model / Serial / Lot Impl Eye Provisc Ovd 0.55ml - [id number] Implanted:Qty: 1 on 01/15/2017 by Nissa Lindsey MD at [facility] Eye Left: Eye MARIA L-PMM 06/05/2019 [id number] / [id number] / [id number] Insurance MEDICARE Member Subscriber Plan / Payer (Ef fective 2017-Present) Name:Mason Natarajan Relation to Subscriber:Self Name:Natarajan Mason Payer ID:Not on file Group ID:Not on file Type:Not on file Address: [address] [place] [address] Care Teams Deck Specialist Relationship Specialty Start Date End Date Art Berg MD [address] [place] [address] PCP - General Family Medicine 01/08/17
--- OUTSIDE RECORDS SUMMARY | 2024-10-19 08:29 | XMS_ITS | Clinical Summary ---
Author Organization [facility] Healthcare Address [address] [place] [address] Care Team Providers Care Razor Sharpener Name Role Phone Unavailable Primary Care Provider Unavailabl e Social History Tobacco Use Types Packs/Day Years Used Date Smoking Tobacco: Never Assessed Sex and Gender Information Value Date Recorded Sex Assigned at Not on file Legal Sex Male 7:17 PM EDT Gender Identity Not on file Sexual Orientation Not on file Last Filed Vital Signs Vital Sign Reading Time Taken Comments Blood Pressure - - Pulse - - Temperature - - Respiratory Rate - - Oxygen Saturation - - Inhaled Oxygen Concentration - - Weight 86.6 kg (191 lb) 04/24/2022 12:00 PM EST Height 172.7 cm (5' 8 ) 04/24/2022 12:00 PM EST Body Mass Index 29.04 04/24/2022 12:00 PM EST Plan of Treatment Not on file Insurance MEDICARE
--- OUTSIDE RECORDS SUMMARY | 2024-10-19 08:29 | XMS_ITS | Clinical Summary ---
Author Organization [facility] Address [address] [place] [address] Care Team Providers Care Tour Leader Name Role Phone Art Berg MD Primary Care Provider [phone] Allergies Active Allergy Reactions Criticality Noted Date Comments Adhesive Low 01/14/2017 Skin breakdown Medications amLODIPine (Norvasc) 10 mg tablet amlodipine 10 mg tablet TAKE 1 TABLET BY MOUTH EVERY DAY Active cholecalciferol (Vitamin D-3) 25 MCG (1000 UT) capsule 1 capsule in the morning. Active levothyroxine (Synthroid, Levoxyl) 50 mcg tablet Take 50 mcg by mouth in the morning. Active oxybutynin (Ditropan) 5 mg tablet oxybutynin chloride 5 mg tablet TAKE 1 TABLET BY MOUTH DAILY 2 Active tamsulosin (Flomax) 0.4 mg 24 hr capsule tamsulosin 0.4 mg capsule TAKE 1 CAPSULE BY MOUTH EVERY DAY 2 Active tiZANidine (Zanaflex) 4 mg tablet tizanidine 4 mg tablet TAKE 1 TABLET BY MOUTH AT BEDTIME 2 Active liothyronine (Cytomel) 5 mcg tablet Take 10 mcg by mouth in the morning. 2 Active potassium chloride CR (Klor-Con) 10 mEq ER tablet Take 10 mEq by mouth in the morning and at bedtime. 2 Active pantoprazole (ProtoNix) 40 mg EC tablet Take 40 mg by mouth before breakfast. 3 Active sucralfate (Carafate) 1 gram tablet TAKE 1 TABLET BY MOUTH ON AN EMPTY STOMACH BEFORE MEALS and BEFORE bedtime 3 Active atorvastatin (Lipitor) 40 mg tablet Take 40 mg by mouth in the morning. Active clopidogrel (Plavix) 75 mg tablet Take 75 mg by mouth in the morning. Active diclofenac (Voltaren) 75 mg EC tablet 75 mg every 12 (twelve) hours. 4 Active hydrALAZINE (Apresoline) 100 mg tabletIndications :Essential hypertension Take 1 tablet (100 mg) by mouth two times daily. 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 1 kit 5 Active NIFEdipine XL (Procardia XL) 60 mg 24 hr tabletIndications :Essential hypertension Take 1 tablet (60 mg) by mouth in the morning. Do not crush, chew, or split. STOP AMLODIPINE 90 tablet 3 5 04/30/19 26 Active gabapentin (Neurontin) 100 mg capsule Take 100 mg by mouth two times daily. 5 Active lisinopril 40 mg tabletIndications :Essential hypertension Take 1 tablet (40 mg) by mouth in the morning. 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 11/13/2023 Nocturia 12/13/2022 12/13/2022 Benign prostatic hyperplasia with urinary obstru ction 03/26/2022 Type 2 diabetes mellitus 03/26/2022 Incomplete emptying of bladder 03/26/2022 Overweight with body mass index (BMI) 25.0-29.9 03/26/2022 Retention of urine 03/26/2022 Bradycardia 03/04/2018 Carpal tunnel syndrome 01/24/2017 Hypertension 01/24/2017 Temporomandibular joint disorder 01/24/2017 Thyroid atrophy 01/24/2017 Cerebrovascular accident 01/24/2017 023 Family History Medical History Relation Name Comments Diabetes Father Hypertension Father No Known Problems Mother Relation Name Status Comments Brother Father Mother Sister Social History Tobacco Use Types Packs/Day Years Used Date Smoking Tobacco: Former Cigarettes 1 956 - 1957 Smokeless Tobacco: Never Tobacco Cessation:Counseling Given: Not Answered Alcohol Use Standard Drinks/Week Comments Yes 7 (1 standard drink = 0.6 oz pur e alcohol) [place] Safety & Environment Answer Date Rec orded Fear of Current or Ex-Partner Not on file Emotionally Abused Not on file 05/29/2023 Physically Abused Not on file 05/29/2023 Sexually Abused Not on file 05/29/2023 Physically or Sexually Abused Not on file Sex and Gender Information Value Date Recorded Sex Assigned at Not on file Legal Sex Male 12:00 AM EDT Gender Identity Not on file Sexual Orientation Not on file Last Filed Vital Signs Vital Sign Reading Time Taken Comments Blood Pressure 153/65 07/13/2024 2:53 PM EDT Pulse 55 07/13/2024 2:53 PM EDT Temperature 36.7 C (98 F) 10/11/2021 11:19 AM EDT Respiratory Rate 12 07/07/2023 11:08 AM EDT Oxygen Saturation 96% 07/13/2024 2:53 PM EDT Inhaled Oxygen Concentration - - Weight 74.4 kg (164 lb) 07/13/2024 2:53 PM EDT Height 172.7 cm (5' 8 ) 07/13/2024 2:53 PM EDT Body Mass Index 24.94 07/13/2024 2:53 PM EDT Plan of Treatment Health Maintenance Due Date Last Done Comments Diabetes: Hemoglobin A1C 1935 Medicare Annual Wellness (AWV) 1935 Diabetes: Retinopathy Screening 1945 Depression Screening 1947 Diabetes: Urine Protein Screening 1954 Adult Tetanus 1957 Fall Risk Screening 2000 Pneumococcal Vaccine: 50+ Years (2 of 2 - PPSV23, PCV20, or PCV21) 07/28/2022 06/02/2022, 02/05/2017 COVID-19 Vaccine ( season) 2024 01/13/2024, 01/27/2023, 09/27/2021, Additional history exists Influenza Vaccine (#1) 2024 , 01/27/2023, 06/02/2022, Additional history exists Zoster Vaccines Completed 05/02/2023, 02/24/2023 HIB Vaccines Aged Out No longer eligi ble based on patient's age to complete this topic HPV Vaccines Aged Out No longer eligi ble based on patient's age to complete this topic IPV Vaccines Aged Out No longer eligi ble based on patient's age to complete this topic Meningococcal B Vaccine Aged Out No l onger eligible based on patient's age to complete this topic Meningococcal Vaccine Aged Out No lou zhao eligible based on patient's age to complete this topic Rotavirus Vaccines Aged Out No longer eligible based on patient's age to complete this topic [id number] [id number] Care Teams Tour Leader Relationship Specialty Start Date End Date Art Berg MD [address] [facility] [address] [address] PCP - General 03/26/22
--- OUTSIDE RECORDS SUMMARY | 2024-10-19 08:32 | XMS_ITS | CCD ---
Author Organization [facility] Team Providers Care Retail Field 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 Name Role Phone CHET NESBITT Unavailable Unavailable [...] Primary Care Unavailable ALGHOTHANI, MOHTALHA Attending Unavailable ALGHOROSETTA, MOHALYSSAD Admitting Unavailable HOY ., DR KHAN [...] HO Consulting Unavailable YANIV DACOSTA Consulting Unavailable MAN MADDOX Consulting Unavailable ALGHOTHANI, MOHAMAD Consulting Unavailable ALGHOTHANI, MOHAMAD Admitting Unavailable ALGCARYN, ARNEL Attending Unavailable HOY ., DR KHAN Primary Care Unavailable HOY ., DR KHAN Admitting Unavailable HOY ., DR KHAN Attending Unavailable HOY ., DR KHAN Primary Care Unavailable HOY ., DR KHAN Consulting Unavailable Geovany Espinal Consulting Unavailable HOY ., DR KHAN Consulting Unavailable HOY ., DR KHAN Primary Care Unavailable HOY ., DR KHAN Attending Unavailable HOY ., DR KHAN Admitting Unavailable Geovany Espinal Consulting Unavailable Darien REYNOLDS Attending Unavailable Darien REYNOLDS Attending Unavailable Alli MUKHERJEE Attending Unavailable Erin Berg Referring Unavailable Ignacioy Erin GARCIA Primary Care Provider ARNEL BAEZA Attending Unavailable ALGCARYN, MOHTALHA Attending Unavailable CHARMAINE JENKINS Attending Unavailable Allergies Allergy Classification Reported Allergen(s) Allergy Type Date of Onset Reaction(s) Facility (1 source) No Known Medication Allergies; Translations: [No Known Medication Allergies] Propensity to adverse reactions (disorder) [facility] Repository (1 source) Adhesive agent; Translations: [ADHESIVE] Propensity to adverse reactions to drug (disorder) 7 [facility] Repository Medications Current Medications Medication Drug Class(es) Dates Sig (Normalized) Sig (Original) Ascorbic Acid (2 sources) Vitamin C Start: 09-14-2020 Vitamin C Daily, Refills(s) 0 Start Date: 09/14/20 Status: Ordered aspirin 81 mg chewable tablet (1 source) Platelet Aggregation Inhibitor, Nonsteroidal Anti-inflammatory Drug Start: 11-13-2023 aspirin 81 mg chewable tablet [...] 11/13/2023 Active atorvastatin 40 mg oral tablet (2 sources) HMG-CoA Reductase Inhibitor Start: 05-11-2024 take 1 tablet by mouth once daily Atorvastatin 40 mg tablet Active 40 MG PO Daily May 11, 2024 1:00am Start: 11-13-2023 take 1 tablet by anna [...] bedtime. 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 30 tablet 12 11/13/2023 Active Diclofenac 75mg Tab-DR (1 source) Start: 11-27-2021 [...] capsule Take 250 mg by mouth. Active hydrALAZINE hydrochloride 100 mg oral tablet (6 sources) Arteriolar Vasodilator Start: 05-11-19 take 1 tablet by mouth twice daily Hydralazine 100 mg tablet Active 100 MG PO Twice daily May 11, 2024 1:00am Start: 06-11-2022 take 1 tablet by anna th twice daily hydrALAZINE 100 mg oral tablet [...] Active levothyroxine sodium 0.05 mg oral tablet (7 sources) l-Thyroxine Start: 10-26-2020 take 1 tablet by mouth once daily Levothyroxine (Synthroid) 50 mcg tablet Active 50 MCG PO Daily October 26, 2020 12:00am Start: 09-14-2020 take 1 tablet by anna th once daily levothyroxine 50 mcg (0.05 mg) Tab mcg tab(s), Oral, Daily, Refills(s) 0 Start Date: 09/14/20 Status: Ordered liothyronine sodium 0.005 mg oral tablet (2 sources) l-Triiodothyronine Start: 05-11-2024 take 1 tablet by mouth once daily Liothyronine 5 mcg tablet Active 10 MCG PO Daily May 11, 2024 1:00am take 1 mL intravenou sly every eight hours as needed Liothyronine Sodium 10 MCG/ML 1 mL as needed Intravenous every 8 hrs Active lisinopril 20 mg oral tablet (8 sources) Angiotensin Converting Enzyme Inhibitor Start: 08-03-2024 take 1 tablet by mouth once daily Lisinopril 20 mg tablet Active 20 MG PO Daily August 03, 2024 12:00am Start: 05-11-2024 End: 08-03-2024 Lisinopril 30 mg tablet Disc ontinued 20 MG PO Daily May 11, 2024 10:42am August 03, 2024 3:43pm Start: 06-11-2022 take 1 tablet by anna th once daily lisinopril 20 mg Tab 20 mg = 1 tab(s), Oral, Daily Start Date: 06/11/22 Status: Ordered Start: 09-14-2020 End: 05-11-2024 take 1 tablet by mouth once daily Lisinopril 30 mg tablet Discontinued 30 MG PO Daily October 26, 2020 12:00am May 11, 2024 10:48am take 1 tablet by anna th in the morning lisinopril (PRINIVIL,ZESTRIL) 40 mg tablet Take 1 tablet (40 mg total) by mouth in the morning. Active wtbkcfrp-qzppxywd-gbxnsxg fum (MULTI VITAMIN) 9 mg iron/15 mL liquid (1 source) multivit-mineral s-ferrous fum (MULTI VITAMIN) 9 mg iron/15 mL liquid Indications: mineral deficiency prevention Take 500 mg by mouth. Active NIFEdipine 60 mg osmotic 24 hr extended release oral tablet (2 sources) Dihydropyridine Calcium Channel Faith Sta rt: take 1 tablet by mouth once daily Nifedipine 60 mg tablet extended release 24hr Active 60 MG PO daily August 03, 2024 12:00am Start: 05-11-2024 End: 08-03-2024 take 1 tablet by mouth once daily Nifedipine 60 mg tablet extended release Discontinued 60 MG PO Daily May 11, 2024 1:00am August 03, 2024 3:45pm oxybutynin chloride 5 mg oral tablet (6 sources) Cholinergic Muscarinic Antagonist Start: 05-11-2024 take 1 tablet by mouth once daily Oxybutynin Chloride 5 mg tablet Active 5 MG PO Daily May 11, 2024 1:00am Start: 11-12-2023 take 1 tablet by anna th once daily in the morning oxybutynin (DITROPAN) 5 mg tablet Take 1 tablet (5 mg total) by mouth every morning. 11/12/2023 Active Start: 10-17-2021 take 1 tablet by anna th once daily oxybutynin 5 mg Tab 5 mg = 1 tab(s), Oral, Daily, # 30 tab(s), Refills(s) 11, Pharmacy: [id number], 172, cm, 06/11/22 9:50:00 EST, Height/Length Dosing, 85.4, kg, 06/11/22 9:50:00 EST, Weight Dosing Start Date: 08/01/22 Status: Ordered Pantoprazole 40 mg tablet,delayed release (DR/EC) (1 source) Start: 08-03-2024 take 1 tablet by mouth once daily in the morning Pantoprazole 40 mg tablet,delayed release (DR/EC) Active 40 MG PO Every morning August 03, 2024 12:00am potassium chloride 10 meq extended release oral tablet (2 sources) Start: 11-05-2023 take 1 tablet by mouth in the morning potassium chloride (K-TAB,KLOR-CON) 10 MEQ CR tablet Take 1 tablet (10 mEq total) by mouth in the morning and 1 tablet (10 mEq total) in the evening. Take with meals. 11/05/2023 Active take 1 capsule by mo uth every twelve hours Potassium Chloride ER 10 MEQ 1 capsule with food Orally Twice a day Active sucralfate 1000 mg oral tablet (3 sources) Aluminum Complex Start: 05-11-2024 take 1 tablet by mouth four times daily Sucralfate 1 gram tablet Active 1 GM PO Four times daily May 11, 2024 1:00am take 1 tablet by anna th once daily in the morning sucralfate (CARAFATE) 1 gram tablet Take 1 tablet (1 g total) by mouth every morning. Active take 1 tablet by anna th every twelve hours Sucralfate 1 GM 1 tablet on an empty stomach Orally Twice a day Active tamsulosin hydrochloride 0.4 mg oral capsule (7 sources) alpha-Adrenergic Faith Start: 11-27-2021 take 1 capsule by mouth twice daily tamsulosin 0.4 mg Cap 0.4 mg = 1 cap(s), Oral, BID Start Date: 11/27/21 Status: Ordered Start: 10-26-2020 take 1 capsule by mo uth once daily tamsulosin 0.4 mg Cap 0.4 mg = 1 cap(s), Oral, Daily Start Date: 06/11/22 Status: Ordered tiZANidine 4 mg oral tablet (6 sources) Central alpha-2 Adrenergic Agonist Start: 08-03-2024 take 1 tablet by mouth once daily at bedtime as needed Tizanidine 4 mg tablet Active 4 MG PO Daily at bedtime as needed August 03, 2024 12:00am Start: 11-27-2021 take 1 tablet by anna th every eight hours tiZANidine 4 mg Tab [...] 50 mg by mouth. Active vitamin a 05155 unt oral capsule (2 sources) Vitamin A [...] Refills(s) 0 Start Date: 09/14/20 Status: Ordered Completed/Discontinued Medications Medication Drug Class(es) Dates Sig (Normalized) Sig (Original) amLODIPine 10 mg oral tablet (7 sources) Dihydropyridine Calcium Channel Faith Start: 10-26-2020 End: 05-11-2024 take 5 mg by mouth once daily Amlodipine 10 mg tablet Discontinued 5 MG PO Daily October 26, 2020 12:00am May 11, 2024 10:41am Start: 09-14-2020 take 1 mg by mouth once daily amLODIPine 5 mg Tab mg tab(s), Oral, Daily, Refills(s) 0 Start Date: 09/14/20 Status: Ordered take 1 tablet by anna th in the morning amLODIPine (NORVASC) 10 mg tablet Take 1 tablet (10 mg total) by mouth in the morning. Active diclofenac sodium 75 mg delayed release oral tablet (3 sources) Nonsteroidal Anti-inflammatory Drug Start: 05-11-2024 End: 05-11-2024 take 1 tablet by mouth twice daily Diclofenac Sodium 75 mg tablet,delayed release (DR/EC) Discontinued 75 MG PO Twice daily May 11, 2024 1:00am May 11, 2024 10:54am Start: 11-27-2021 take 1 tablet by anna th twice daily Diclofenac 75mg Tab-DR 75 mg, Oral, BID Start Date: 11/27/21 Status: Ordered glimepiride 2 mg oral tablet (5 sources) Sulfonylurea Start: 09-14-2020 End: 05-11-2024 take 1 tablet by mouth once daily Glimepiride 2 mg Tablet Discontinued 2 MG PO Daily October 26, 2020 12:00am May 11, 2024 10:42am meloxicam 15 mg oral tablet (2 sources) Nonsteroidal Anti-inflammatory Drug Start: 10-26-2020 End: 05-11-2024 take 1 tablet by mouth once daily Meloxicam (Mobic) 15 mg tablet Discontinued 15 MG PO Daily October 26, 2020 12:00am May 11, 2024 10:42am pantoprazole 40 mg oral granules (3 sources) Proton Pump Inhibitor Start: 05-11-2024 End: 08-03-2024 take 40 mg by mouth once daily Pantoprazole [address] for susp in packet Discontinued 40 MG PO Daily May 11, 2024 1:00am August 03, 2024 3:44pm Start: 10-06-2023 take 1 tablet by anna th once daily before breakfast pantoprazole (PROTONIX) 40 mg EC tablet Take 1 tablet (40 mg total) by mouth every morning before breakfast. 10/06/2023 Active take 1 tablet by anna th every twenty-four hours Pantoprazole Sodium 40 MG 1 tablet Orally Once a day Active Problems Active Problems Problem Classification Problem Date Documented Da te Episodic/Chronic Abdominal pain (4 sources) Generalized abdominal pain; Translations: [GENERALIZED ABDOMINAL PAIN] Onset: 3 Episodic Biliary tract disease (1 source) Calculus of gallbladder without cholecystitis without obstruction; Translations: [CALCU GB W/O CHOLECYST W/O OBST] Onset: 3 Episodic Cardiac dysrhythmias (2 sources) Bradycardia, unspecified; Translations: [Bradycardia, unspecified] Onset: 5 Episodic Chronic kidney disease (6 sources) Chronic kidney disease, unspecified; Translations: [Chronic kidney disease stage 3B ] Onset: 3 05-11-2024 Chronic Conditions associated with dizziness or vertigo [...] [Essential (primary) hypertension] Onset: 2 09-14-2020 Chronic Fluid and electrolyte disorders (3 sources) Hyperkalemia; Translations: [Hyperkalemia] 05-11-2024 Episodic Genitourinary symptoms and ill-defined conditions (7 sources) Nocturia; Translations: [Nocturia] Onset: 2 Episodic Hyperplasia of prostate (7 sources) Benign prostatic hypertrophy with outflow obstruction; Translations: [Benign prostatic hyperplasia with lower urinary tract symptoms] Onset: 2 Chronic Hypertension with complications and secondary hypertension (6 sources) Hypertensive chronic kidney disease with stage [...] and colitis] Onset: 1 Resolved: 1 Episodic Nutritional deficiencies (3 sources) Vitamin D deficiency; Translations: [Vitamin D deficiency, unspecified] 05-11-2024 Chronic Occlusion or stenosis of precerebral arteries (3 sources) Carotid artery occlusion; Translations: [Occlusion and stenosis of unspecified carotid artery] Onset: 4 11-13-2023 Chronic Osteoarthritis (1 source) Unspecified osteoarthritis, unspecified site; Translations: [UNSPECIFIED OSTEOARTHRITIS UNS SITE] Onset: 3 Chronic Other aftercare (1 source) Other [place] (current[facility] drug therapy; 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 EHR Cmte Other gastrointestinal disorders (1 source) Incontinence of [...] Test Name Value Interpretation Reference Range Facility Erythrocyte distribution wid th Auto (RBC) [Ratio]on 07-26-2024 Erythrocyte distribution width (RBC) [Ratio] Erythrocyte distribution width [Ratio] by Automated count High 11.0-15.0 [facility] Estimated glomerular filtrat ion rate (GFR) non- Americanon 07-26-2024 GFR/1.73 sq M.predicted among non-blacks MDRD (S/P/Bld) [Vol rate/Area] Estimated glomerular filtration rate (GFR) non- Low >=60 mL/min/1.73m 2 [facility] Hematocrit Auto (Bld) [Volum e fraction]on 07-26-2024 Hematocrit (Bld) [Volume fraction] Hematocrit [Volume Fraction] of Blood by Automated count Low 42.0-54.0 [facility] Hemoglobin [Mass/volume] in Bloodon 07-26-2024 Hemoglobin (Bld) [Mass/Vol] Hemoglobin [Mass/volume] in Blood Low 14.0-18.0 [facility] Laboratory - Chemistry and C hemistry - challengeon 07-26-2024 Albumin [Mass/Vol] 3.7 g/dL 3.4-5.0 [facility] Calcium [Mass/Vol] 9.1 mg/dL 8.5-10.1 [facility] Chloride [Moles/Vol] 107 mmol/L 98-107 [facility] CO2 [Moles/Vol] 25.0 mmol/L 21.0-32.0 [facility] Creatinine [Mass/Vol] 1.38 mg/dL High 0.70-1.30 [facility] GFR/1.73 sq M.predicted MDRD (S/P/Bld) [Vol rate/Area] 59 mL/min/{1.73_m2} Low >=60 mL/min/1.73m 2 [facility] Glucose [Mass/Vol] 141 mg/dL High 74-106 [facility] Magnesium [Mass/Vol] 2.1 mg/dL 1.8-2.4 [facility] Potassium [Moles/Vol] 4.0 mmol/L 3.5-5.1 [facility] Sodium [Moles/Vol] 143 mmol/L 136-145 [facility] Urate [Mass/Vol] 6.4 mg/dL 3.5-7.2 [facility] Urea nitrogen [Mass/Vol] 29.0 mg/dL High 7.0-18.0 [facility] Urea nitrogen/Creatinin e [Mass ratio] 21.0 mg/mg [facility] Bilirubin Ql (U) Negative NEGATIVE [facility] Glucose (U) [Mass/Vol] Negative NEGATIVE [facility] Ketones Ql (U) Negative NEGATIVE [facility] pH (U) 5.5 [pH] 5.0-9.0 [facility] Specific gravity (U) [Rel density] <=1.005 Abnormal 1.005-1.025 [facility] Urobilinogen Qn (U) 0.2 {Jesus'U}/dL 0.2-1.0 [facility] Laboratory - Specimen inform ationon 07-26-2024 Appearance (U) CLEAR CLEAR [facility] Color (U) LT. YELLOW YELLOW [facility] Laboratory - Urinalysison Leukocyte esterase Test strip Ql (U) Negative NEGATIVE [facility] Nitrite Ql (U) Negative NEGATIVE [facility] Protein Ql (U) Negative NEG/TRACE [facility] Leukocytes [#/volume] correc skylar for nucleated erythrocytes in Blood by Automated counon 07-26-2024 WBC corrected for nucl RBC Auto (Bld) [#/Vol] Leukocytes [#/volume] corrected for nucleated erythrocytes in Blood by Automated coun 4.0-11.0 [facility] MCH Auto (RBC) [Entitic mass ]on 07-26-2024 MCH (RBC) [Entitic mass] MCH [Entitic mass] by Automated count 25.9-34.0 [facility] MCHC Auto (RBC) [Mass/Vol]on 07-26-2024 MCHC (RBC) [Mass/Vol] MCHC [Mass/volume] by Automated count 29.9-35.2 [facility] MCV Auto (RBC) [Entitic vol] on 07-26-2024 MCV (RBC) [Entitic vol] MCV [Entitic volume] by Automated count 80.0-94.0 [facility] Microalbumin [Mass/volume] i n Urineon 07-26-2024 Albumin DL <= 20 mg/L (U) [Mass/Vol] Microalbumin [Mass/volume] in Urine <=30.0 [facility] No Panel Informationon 07-26 25-Hydroxy Vitamin D Total 76.5 ng/mL [facility] Comment on above: <20 ng/mL Vit D defi cient20-<30 ng/mL Vit D jgwphqvziezs94-450 ng/mL Vit D sufficient>100 ng/mL Potential Toxicity Parathyroid Hormone (Intact) 37 pg/mL 15-65 [facility] Comment on above: Performed at: - [address] [id number] Director: Zenon Rosa PhD, Phone: [phone] Phosphorus Level 3.5 mg/dL 2.6-4.7 [facility] Urine Occult Blood Negative NEGATIVE [facility] Urine Random Creatinine <13.00 mg/dL Low 20.00-300.00 [facility] Urine Random Total Protein <6.0 mg/dL <=11.9 [facility] Platelet mean volume Auto (B ld) [Entitic vol]on 07-26-2024 Platelet mean volume (Bld) [Entitic vol] Platelet mean volume [Entitic volume] in Blood by Automated count 9.5-13.5 [facility] Platelets Auto (Bld) [#/Vol] on 07-26-2024 Platelets (Bld) [#/Vol] Platelets [#/volume] in Blood by Automated count 150-450 [facility] RBC Auto (Bld) [#/Vol]on RBC (Bld) [#/Vol] Erythrocytes [#/volu me] in Blood by Automated count Low 4.70-6.10 [facility] Serum or plasma anion gap de terminationon 07-26-2024 Anion gap [Moles/Vol] Serum or plasma anion gap determination [facility] Orders Onlyon 07-15-2024 Orders Only [id number] Caprice Natarajan E 1935 M Date Provider Department Center 07/15/2024 PEDRO HUANG MARLENE Schwab Family History Problem Relation Age of Onset No Known Problems Mother Diabetes Father Hypertension Father Family Status - Relation Status Age at Mother Father Sister Brother Normal [facility] Office Visiton 07-13-2024 Follow-up visit [id number] Caprice Natarajan E 1935 M Date Provider Department Center 07/13/2024 CHARMAINE MIGUEL CARD El[facility]ar [facility] Family History Problem Relation Age of Onset No Known Problems Mother Diabetes Father Hypertension Father Family Status - Relation Status Age at Mother Father Sister Brother Level of Service:30428 [place] OFFICE/OUTPATIENT NEW MODERATE MDM 45 MINUTES Normal [facility] 36on 05-05-2024 36 Regarding lab result s from 05/03/2024: I spoke with Dr. Baeza regarding elevated potassium and renal function. He advised patient stop potassium, repeat labs in 5-7 days, and also see his addiction professional if he has one. I then spoke with Mr. Natarajan - who said Dr. Berg already advised him to stop potassium. He also said Dr. Berg ordered repeat labs to be done in the next few days. He does not see a addiction professional but agreed to a referral. I put one in and faxed it to [facility] in [place]. Patient verbalized understanding. Normal [facility] Office Visiton 04-30-2024 Follow-up visit [id number] Caprice Natarajan E 1935 M Date Provider [facility] Relation Age of Onset Diabetes Father Hypertension Father Family Status - Relation Status Age at Father Level of Service:09767 [place] OFFICE/OUTPATIENT ESTABLISHED MOD MDM 30 MIN Normal [facility] Office Visiton 01-05-2024 Follow-up visit [id number] Caprice Natarajan E 1935 M Date Provider Department Center 01/05/2024 ARNEL SINGH Family History Problem Relation Age of Onset Diabetes Father Hypertension Father Family Status - Relation Status Age at Father Level of Service:42340 [place] OFFICE/OUTPATIENT ESTABLISHED LOW MDM 20 MIN [facility] STOOL CULTUREon 08-18-2022 Campylobacter Culture Final report Normal [facility] Comment on above: Performed By: #### C XSTOOL #### [facility] [address] [address] [address] Deepika Terrell E coli Shiga Toxin EIA Negative Normal Negative [facility] Comment on above: Performed By: #### C XSTOOL #### [facility] [address], [place] [address] Dr. Deepika Terrell Result 1 Comment Normal [facility] Comment on above: Result Comment: No S almonella or Shigella recovered. Performed By: #### C XSTOOL #### [facility] [address] [place], [place] [address] Dr. Deepika Terrell Result Comment: No C ampylobacter species isolated. Salmonella/Shigell a Screen Final report Normal [facility] Comment on above: Performed By: #### C XSTOOL #### [facility] [address] [address] [address] Deepika Terrell C. DIFF PCRon 08-13-2022 C. DIFFICILE PCR Negative Normal NEGATIVE [facility] Comment on above: Performed By: #### B MP #### [facility] [address] [address] [address] Deepika Terrell Consultation Noteon 08-14-19 23 Consultation Note [id number]:127 Normal [facility] OCC BLD IMMUNO SCREENon OCCULT BLOOD Negative Normal NEGATIVE [facility] Comment on above: Performed By: #### B MP #### [facility] [address] [address] [address] Deepika Terrell RAD - MISCon 08-13-2022 RAD - MISC [id number]:127 Normal [facility] Physician Referralon 023 Physician Referral [id number]:127 Normal [facility] NM HEPATOBILIARY SCAN W EFon [...] GEOVANY ESPINAL Date: 2022-08-09 10:42 Normal [facility] US SINGLE QUAD RT UPPERon US [...] KURT JOE Date: 2022-08-08 07:42 Normal [facility] GLYCOHEMOGLOBIN A1Con 2022 ADA RECOMMENDATION SEE BELOW Normal [facility] Comment on above: Result Comment: ADA RECOMMENDED LIMIT 4.0 - 6.0 ADA THERAPEUTIC TARGET < 7.0 ACTION SUGGESTED > 7.0 Performed By: #### I NSULT #### [facility] [address] [place] [address] Dr. Deepika Terrell Glucose [Mass/Vol] 117 mg/dL Normal [facility] Comment on above: Performed By: #### I NSULT #### [facility] [address] [address] [address] Deepika Terrell HbA1c (Bld) [Mass fraction] 5.7 % Normal 4.5-6.2 [facility] Comment on above: Performed By: #### I NSULT #### [facility] [address] [place] [address] ABD/PELVIS WO CONon [...] MARK LEE Date: 2022-07-20 07:40 Normal [facility] CBC AUTO DIFFon 07-19-2022 BASO # 0.0 103/ul Normal 0.0-0.1 [facility] Comment on above: Performed By: #### C BC #### [facility] [address] [place] [address] Dr. Deepika Terrell Basophils/100 WBC (Bld) 0.3 % Normal 0.2-2.0 [facility] Comment on above: Performed By: #### C BC #### [facility] [address] [place] [address] Dr. Deepika Terrell EO # 0.3 103/ul Normal 0.0-0.7 [facility] Comment on above: Performed By: #### C BC #### [facility] [address] [place] [address] Dr. Deepika Terrell Eosinophils/100 WBC (Bld) 2.4 % Normal 0.9-7.0 [facility] Comment on above: Performed By: #### C BC #### [facility] [address] [place] [address] Dr. Deepika Terrell Erythrocyte distribution width (RBC) [Ratio] 14.8 % Normal 11.0-15.0 [facility] Comment on above: Performed By: #### C BC #### [facility] [address] [place] [address] Dr. Deepika Terrell Hematocrit (Bld) [Volume fraction] 33.8 % Critically low 42.0-54.0 [facility] Comment on above: Performed By: #### C BC #### [facility] [address] [place] [address] Dr. Deepika Terrell Hemoglobin (Bld) [Mass/Vol] 11.0 g/dL Critically low 14.0-18.0 [facility] Comment on above: Performed By: #### C BC #### [facility] [address] [place] [address] Dr. Deepika Terrell IG # 0.08 10e3/ul Critically high 0.00-0.03 [facility] [facility] Comment on above: Performed By: #### C BC #### [facility] [address] [place] [address] Dr. Deepika Terrell IG % 0.7 % Critically high 0.0-0.5 [facility] Comment on above: Performed By: #### C BC #### [facility] [address] [place] [address] Dr. Deepika Terrell LYMPH # 3.5 103/ul Normal 1.2-3.8 [facility] Comment on above: Performed By: #### C BC #### [facility] [address] [place] [address] Dr. Deepika Terrell Lymphocytes/100 WBC (Bld) 29.2 % Normal 20.5-60.0 [facility] Comment on above: Performed By: #### C BC #### [facility] [address] [place] [address] Dr. Deepika Terrell MANUAL DIFF REQ NO Normal [facility] Comment on above: Performed By: #### C BC #### [facility] [address] [place] [address] Dr. Deepika Terrell MCH (RBC) [Entitic mass] 29.4 pg Normal 25.9-34.0 [facility] Comment on above: Performed By: #### C BC #### [facility] [address] [place] [address] Dr. eDepika Terrell MCHC (RBC) [Mass/Vol] 32.5 g/dL Normal 29.9-35.2 [facility] Comment on above: Performed By: #### C BC #### [facility] [address] [place] [address] Dr. Deepika Terrell MCV (RBC) [Entitic vol] 90.4 fL Normal 80.0-94.0 [facility] Comment on above: Performed By: #### C BC #### [facility] [address] [place] [address] Dr. Deepika Terrell MONO # 0.7 103/ul Normal 0.3-0.8 [facility] Comment on above: Performed By: #### C BC #### [facility] [address] [place] [address] Dr. Deepika Terrell Monocytes/100 WBC (Bld) 6.1 % Normal 1.7-12.0 [facility] Comment on above: Performed By: #### C BC #### [facility] [address] [place] [address] Dr. Deepika Terrell NEUT # 7.3 103/ul Critically high 1.4-6.5 [facility] Comment on above: Performed By: #### C BC #### [facility] [address] [place] [address] Dr. Deepika Terrell Neutrophils/100 WBC (Bld) 61.3 % Normal 43.0-75.0 [facility] Comment on above: Performed By: #### C BC #### [facility] [address] [address] [address] Deepika Terrell Platelet mean volume (Bld) [Entitic vol] 10.8 fL Normal 9.5-13.5 [facility] Comment on above: Performed By: #### C BC #### [facility] [address] [address] [address] Deepika Terrell PLT 372 103/ul Normal 150-450 [facility] Comment on above: Performed By: #### C BC #### [facility] [address] [address] [address] Deepika Terrell RBC 3.74 106/ul Critically low 4.70-6.10 [facility] Comment on above: Performed By: #### C BC #### [facility] [address] [place] [address] Dr. Deepika Terrell WBC 11.9 103/ul Critically high 4.0-11.0 [facility] Comment on above: Performed By: #### C BC #### [facility] [address] [address] [address] Deepika Terrell PROF CHEM 8 (BAS METB)on Anion gap [Moles/Vol] 16.1 mmol/L Normal [facility] Comment on above: Performed By: #### I NSULT #### [facility] [address] [place] [address] Dr. Deepika Terrell Calcium [Mass/Vol] 9.0 mg/dL Normal 8.5-10.1 [facility] Comment on above: Performed By: #### I NSULT #### [facility] [address] [address] [address] Deepika Terrell Chloride [Moles/Vol] 108 mmol/L Critically high 98-107 [facility] Comment on above: Performed By: #### I NSULT #### [facility] [address] [address] [address] Deepika Terrell CO2 [Moles/Vol] 19.3 mmol/L Critically low 21.0-32.0 [facility] Comment on above: Performed By: #### I NSULT #### [facility] [address] [place] [address] Dr. Deepika Terrell Creatinine [Mass/Vol] 2.68 mg/dL Critically high 0.70-1.30 [facility] Comment on above: Performed By: #### I NSULT #### [facility] [address] [address] [address] Deepika Terrell EGFR-AF [place] 27 mL/min/1.73m2 Critically low >=60 [facility] Comment on above: Performed By: #### I NSULT #### [facility] [address] [place] [address] Dr. Deepika Terrell EGFR-NON AF [place] 23 mL/min/1.73m2 Critically low >=60 [facility] Comment on above: Performed By: #### I NSULT #### [facility] [address] [place] [address] Dr. Deepika Terrell Glucose [Mass/Vol] 138 mg/dL Critically high 74-106 [facility] Comment on above: Performed By: #### I NSULT #### [facility] [address] [place] [address] Dr. Deepika Terrell Potassium [Moles/Vol] 4.4 mmol/L Normal 3.5-5.1 [facility] Comment on above: Performed By: #### I NSULT #### [facility] [address] [place] [address] Dr. Deepika Terrell Sodium [Moles/Vol] 139 mmol/L Normal 136-145 [facility] Comment on above: Performed By: #### I NSULT #### [facility] [address] [place] [address] Dr. Deepika Terrell Urea nitrogen [Mass/Vol] 68.0 mg/dL Critically high 7.0-18.0 [facility] Comment on above: Performed By: #### I NSULT #### [facility] [address] [place] [address] Dr. Deepika Terrell Urea nitrogen/Creatinin e [Mass ratio] 25.4 mg/mg Normal [facility] Comment on above: Performed By: #### I NSULT #### [facility] [address] [place] [address] Dr. Deepika Terrell CA 19-9on 07-18-2022 CA 19-9 9 U/mL Normal 0-35 [facility] Comment on above: Result Comment: [employer] Electrochemiluminescence Immunoassay (ECLIA) . Values obtained with different assay methods or kits cannot be used interchangeably. Results cannot be interpreted as absolute evidence of the presence or absence of malignant disease. Performed By: #### B MP #### [facility] [address] [place] [address] Dr. Deepika Terrell CEAon 07-18-2022 CEA 3.1 ng/mL Normal 0.0-4.7 [facility] Comment on above: Result Comment: Nons mokers <3.9 Smokers <5.6 . [employer] Electrochemiluminescence Immunoassay (ECLIA) . Values obtained with different assay methods or kits cannot be used interchangeably. Results cannot be interpreted as absolute evidence of the presence or absence of malignant disease. Performed By: #### I NSULT #### [facility] [address] [place] [address] Dr. Deepika Terrell HELICOBACTER PYLORI AB IGMon 07-18-2022 H pylori, IgM Abs <9.0 Normal 0.0-8.9 [facility] Comment on above: Result Comment: Nega tive <9.0 Equivocal 9.0 - 11.0 Positive >11.0 . This test was developed and its performance characteristics determined by [employer]. It has not been cleared or approved by the Food and Drug Administration. Performed By: #### C PEPT #### [facility] [address] [place] [address] Dr. Deepika Terrell AMYLASEon 07-17-2022 Amylase [Catalytic activity/Vol] 38 U/L Normal 25-115 [facility] Comment on above: Performed By: #### C BC #### [facility] [address] [place] [address] Dr. Deepika Terrell CBC W MANUAL DIFFon 07-18-19 23 ATYPICAL LYMPH # Normal [facility] Comment on above: Performed By: #### E RUR #### [facility] [address] [place] [address] Dr. Deepika Terrell ATYPICAL LYMPH % Normal [facility] Comment on above: Performed By: #### E RUR #### [facility] [address] [place] [address] Dr. Deepika Terrell BAND # Normal 0.0-0.3 [facility] Comment on above: Performed By: #### E RUR #### [facility] [address] [place] [address] Dr. Deepika Terrell BAND % Normal 0-5 [facility] Comment on above: Performed By: #### E RUR #### [facility] [address] [place] [address] Dr. Deepika Terrell BASOM # 0.00 103/ul Normal 0.00-0.10 [facility] Comment on above: Performed By: #### E RUR #### [facility] [address] [place] [address] Dr. Deepika Terrell BASOM % 0.0 % Critically low 0.2-2.0 [facility] Comment on above: Performed By: #### E RUR #### [facility] [address] [place] [address] Dr. Deepika Terrell BLAST # Normal [facility] Comment on above: Performed By: #### E RUR #### [facility] [address] [place] [address] Dr. Deepika Terrell BLAST % Normal [facility] Comment on above: Performed By: #### E RUR #### [facility] [address] [place] [address] Dr. Deepika Terrell CORRECTED WBC Normal 4.0-11.0 [facility] Comment on above: Performed By: #### E RUR #### [facility] [address] [place] [address] Dr. Deepika Terrell EOS # 0.00 103/ul Normal 0.00-0.70 [facility] Comment on above: Performed By: #### E RUR #### [facility] [address] [address] [address] Deepika Terrell EOS% 0.0 % Critically low 0.9-7.0 [facility] Comment on above: Performed By: #### E RUR #### [facility] [address] [place] [address] Dr. Deepika Terrell HCT 35.9 % Critically low 42.0-54.0 [facility] Comment on above: Performed By: #### E RUR #### [facility] [address] [place] [address] Dr. Deepika Terrell HGB 11.6 g/dl Critically low 14.0-18.0 [facility] Comment on above: Performed By: #### E RUR #### [facility] [address] [place] [address] Dr. Deepika Terrell LYMPHM # 3.48 103/ul Normal 1.20-3.80 [facility] Comment on above: Performed By: #### E RUR #### [facility] [address] [place] [address] Dr. Deepika Terrell LYMPHM% 17.0 % Critically low 20.5-60.0 [facility] Comment on above: Performed By: #### E RUR #### [facility] [address] [place] [address] Dr. Deepika Terrell MCH 29.5 pg Normal 25.9-34.0 [facility] Comment on above: Performed By: #### E RUR #### [facility] [address] [place] [address] Dr. Deepika Terrell MCHC 32.3 g/dl Normal 29.9-35.2 [facility] Comment on above: Performed By: #### E RUR #### [facility] [address] [place] [address] Dr. Deepika Terrell MCV 91.3 fL Normal 80.0-94.0 [facility] Comment on above: Performed By: #### E RUR #### [facility] [address] [place] [address] Dr. Deepika Terrell METAMYELOCYTE # Normal [facility] Comment on above: Performed By: #### E RUR #### [facility] [address] [place] [address] Dr. Deepika Terrell METAMYELOCYTE % Normal [facility] Comment on above: Performed By: #### E RUR #### [facility] [address] [place] [address] Dr. Deepika Terrell MONOM# 1.23 103/ul Critically high 0.30-0.80 [facility] Comment on above: Performed By: #### E RUR #### [facility] [address] [place] [address] Dr. Deepika Terrell MONOM% 6.0 % Normal 1.7-12.0 [facility] Comment on above: Performed By: #### E RUR #### [facility] [address] [place] [address] Dr. Deepika Terrell MPV 10.8 fL Normal 9.5-13.5 [facility] Comment on above: Performed By: #### E RUR #### [facility] [address] [place] [address] Dr. Deepika Terrell MYELOCYTE # Normal [facility] Comment on above: Performed By: #### E RUR #### [facility] [address] [place] [address] Dr. Deepika Terrell MYELOCYTE % Normal [facility] Comment on above: Performed By: #### E RUR #### [facility] [address] [place] [address] Dr. Deepika Terrell NRBC Normal [facility] Comment on above: Performed By: #### E RUR #### [facility] [address] [place] [address] Dr. Deepika Terrell PLT 423 103/ul Normal 150-450 [facility] Comment on above: Performed By: #### E RUR #### [facility] [address] [place] [address] Dr. Deepika Terrell RBC 3.93 106/ul Critically low 4.70-6.10 [facility] Comment on above: Performed By: #### E RUR #### [facility] [address] [address] [address] Deepika Terrell RDW 14.7 % Normal 11.0-15.0 [facility] Comment on above: Performed By: #### E RUR #### [facility] [address] [address] [address] Deepika Terrell SEG # 15.79 103/ul Critically high 1.40-6.50 [facility] Comment on above: Performed By: #### E RUR #### [facility] [address] [address] [address] Deepika Terrell SEG % 77.0 % Critically high 43.0-75.0 [facility] Comment on above: Performed By: #### E RUR #### [facility] [address] [place] [address] Dr. Deepika Terrell WBC 20.5 103/ul Critically high 4.0-11.0 [facility] Comment on above: Performed By: #### E RUR #### [facility] [address] [place] [address] Dr. Deepika Terrell FREE THYROXINE INDEX T7on FTI 1.95 Normal 1.30-4.50 [facility] Comment on above: Performed By: #### C BC #### [facility] [address] [place] [address] Dr. Deepika Terrell T3U 39.0 % Normal 33.0-40.0 [facility] Comment on above: Performed By: #### C BC #### [facility] [address] [place] [address] Dr. Deepika Terrell T4 [Mass/Vol] 5.00 ug/dL Normal 4.50-12.10 [facility] Comment on above: Performed By: #### C BC #### [facility] [address] [place] [address] Dr. Deepika Terrell LIPASEon 07-17-2022 Lipase [Catalytic activity/Vol] 126.0 U/L Normal 73.0-393.0 [facility] Comment on above: Performed By: #### C BC #### [facility] [address] [place] [address] Dr. Deepika Terrell LIVER PROFILEon 07-17-2022 Albumin [Mass/Vol] 3.7 g/dL Normal 3.4-5.0 [facility] Comment on above: Performed By: #### C BC #### [facility] [address] [place] [address] Dr. Deepika Terrell Albumin/Globulin [Mass ratio] 1.0 {ratio} Normal [facility] Comment on above: Performed By: #### C BC #### [facility] [address] [place] [address] Dr. Deepika Terrell ALP [Catalytic activity/Vol] 82 U/L Normal 46-116 [facility] Comment on above: Performed By: #### C BC #### [facility] [address] [place] [address] Dr. Deepika Terrell ALT [Catalytic activity/Vol] 33 U/L Normal 16-63 [facility] Comment on above: Performed By: #### C BC #### [facility] [address] [place] [address] Dr. Deepika Terrell AST [Catalytic activity/Vol] 15 U/L Normal 15-37 [facility] Comment on above: Performed By: #### C BC #### [facility] [address] [place] [address] Dr. Deepika Terrell BILI, CONJUGATED 0.1 mg/dL Normal 0.0-0.2 [facility] Comment on above: Performed By: #### C BC #### [facility] [address] [place] [address] Dr. Deepika Terrell Bilirubin [Mass/Vol] 0.2 mg/dL Normal 0.2-1.0 [facility] Comment on above: Performed By: #### C BC #### [facility] [address] [place] [address] Dr. Deepika Terrell Globulin (S) [Mass/Vol] 3.6 g/dL Normal [facility] Comment on above: Performed By: #### C BC #### [facility] [address] [place] [address] Dr. Deepika Terrell Protein [Mass/Vol] 7.3 g/dL Normal 6.4-8.2 [facility] Comment on above: Performed By: #### C BC #### [facility] [address] [place] [address] Dr. Deepika Terrell PERIPHERAL SMEARon 3 Pathologist Cyto stain Nom (Cvx/Vag) [ID] DR. ANNIKA NIETO Normal [facility] Comment on above: Result Comment: revi ew of smear reveals n/n w/aniso. plts. normal. leukocytosis with neutrophili and absolute monocytosis. no atypical lymphs, immature blasts seen. these findings are suggestive of a reactive process. clinical correlation is recommend Performed By: #### P ERS #### [facility] [address] [place] [address] Dr. Deepika Terrell PROF CHEM 8 (BAS METB)on Anion gap [Moles/Vol] 19.0 mmol/L Normal [facility] Comment on above: Performed By: #### C BC #### [facility] [address] [place] [address] Dr. Deepika Terrell Calcium [Mass/Vol] 9.5 mg/dL Normal 8.5-10.1 [facility] Comment on above: Performed By: #### C BC #### [facility] [address] [place] [address] Dr. Deepika Terrell Chloride [Moles/Vol] 112 mmol/L Critically high 98-107 [facility] Comment on above: Performed By: #### C BC #### [facility] [address] [place] [address] Dr. Deepika Terrell CO2 [Moles/Vol] 19.4 mmol/L Critically low 21.0-32.0 [facility] Comment on above: Performed By: #### C BC #### [facility] [address] [place] [address] Dr. Deepika Terrell Creatinine [Mass/Vol] 2.51 mg/dL Critically high 0.70-1.30 [facility] Comment on above: Performed By: #### C BC #### [facility] [address] [address] [address] Deepika Terrell EGFR-AF [place] 30 mL/min/1.73m2 Critically low >=60 [facility] Comment on above: Performed By: #### C BC #### [facility] [address] [address] [address] Deepika Terrell EGFR-NON AF [place] 24 mL/min/1.73m2 Critically low >=60 [facility] Comment on above: Performed By: #### C BC #### [facility] [address] [address] [address] Deepika Terrell Glucose [Mass/Vol] 159 mg/dL Critically high 74-106 [facility] Comment on above: Performed By: #### C BC #### [facility] [address] [address] [address] Deepika Terrell Potassium [Moles/Vol] 4.4 mmol/L Normal 3.5-5.1 [facility] Comment on above: Performed By: #### C BC #### [facility] [address] [address] [address] Deepika Terrell Sodium [Moles/Vol] 146 mmol/L Critically high 136-145 [facility] Comment on above: Performed By: #### C BC #### [facility] [address] [address] [address] Deepika Terrell Urea nitrogen [Mass/Vol] 67.0 mg/dL Critically high 7.0-18.0 [facility] Comment on above: Performed By: #### C BC #### [facility] [address] [address] [address] Deepika Terrell Urea nitrogen/Creatinin e [Mass ratio] 26.7 mg/mg Normal [facility] Comment on above: Performed By: #### C BC #### [facility] [address] [address] [address] Deepika Terrell TSHon 07-17-2022 TSH 0.884 uIU/mL Normal 0.358-3.740 [facility] Comment on above: Performed By: #### C BC #### [facility] [address] [address] [address] Deepika Terrell INSULIN FREE AND TOTALon Free Insulin 22 uU/mL Critically high [facility] Comment on above: Result Comment: Refe rence Range: Pubertal Children and Adults (fasting): 0 - 17 Performed By: #### I NSULT #### [facility] [address] [address] [address] Deepika Terrell Total Insulin 22 uU/mL Normal [facility] Comment on above: Result Comment: Non- [...] developed and its performance characteristics determined by [employer]. It has not been cleared or approved by the Food and Drug Administration. Performed By: #### I NSULT #### [facility] [address] [place] [address] Dr. Deepika Terrell C-PEPTIDE, SERUMon 3 C-Peptide, Serum 7.7 ng/mL Critically high 1.1-4.4 [facility] Comment on above: Result Comment: C-Pe ptide reference interval is for fasting patients. Performed By: #### C PEPT #### [facility] [address] [place] [address] Dr. Deepika Terrell OVA AND PARASITE EXAMINATION on 06-04-2022 Ova + Parasite Exam Final report Normal [facility] Comment on above: Result Comment: Thes e results were obtained using wet preparation(s) and trichrome stained smear. This test does not include testing for Cryptosporidium parvum, Cyclospora, or Microsporidia. Performed By: #### B MP #### [facility] [address] [place] [address] Dr. Deepika Terrell Result 1 Comment Normal [facility] Comment on above: Result Comment: No o va, cysts, or parasites seen. . One negative specimen does not rule out the possibility of a parasitic infection. Performed By: #### B MP #### [facility] [address] [place] [address] Dr. Deepika Terrell CBC AUTO DIFFon 06-02-2022 BASO # 0.0 103/ul Normal 0.0-0.1 [facility] Comment on above: Performed By: #### I NSULT #### [facility] [address] [place] [address] Dr. Deepika Terrell Basophils/100 WBC (Bld) 0.4 % Normal 0.2-2.0 [facility] Comment on above: Performed By: #### I NSULT #### [facility] [address] [place] [address] Dr. Deepika Terrell EO # 0.4 103/ul Normal 0.0-0.7 [facility] Comment on above: Performed By: #### I NSULT #### [facility] [address] [place] [address] Dr. Deepika Terrell Eosinophils/100 WBC (Bld) 3.3 % Normal 0.9-7.0 [facility] Comment on above: Performed By: #### I NSULT #### [facility] [address] [place] [address] Dr. Deepika Terrell Erythrocyte distribution width (RBC) [Ratio] 14.6 % Normal 11.0-15.0 [facility] Comment on above: Performed By: #### I NSULT #### [facility] [address] [place] [address] Dr. Deepika Terrell Hematocrit (Bld) [Volume fraction] 29.8 % Critically low 42.0-54.0 [facility] Comment on above: Performed By: #### I NSULT #### [facility] [address] [place] [address] Dr. Deepika Terrell Hemoglobin (Bld) [Mass/Vol] 9.8 g/dL Critically low 14.0-18.0 [facility] Comment on above: Performed By: #### I NSULT #### [facility] [address] [address] [address] Deepika Terrell IG # 0.05 10e3/ul Critically high 0.00-0.03 [facility] Comment on above: Performed By: #### I NSULT #### [facility] [address] [address] [address] Deepika Terrell IG % 0.5 % Normal 0.0-0.5 [facility] Comment on above: Performed By: #### I NSULT #### [facility] [address] [address] [address] Deepika Terrell LYMPH # 1.9 103/ul Normal 1.2-3.8 [facility] Comment on above: Performed By: #### I NSULT #### [facility] [address] [place] [address] Dr. Deepika Terrell Lymphocytes/100 WBC (Bld) 17.3 % Critically low 20.5-60.0 [facility] Comment on above: Performed By: #### I NSULT #### [facility] [address] [place] [address] Dr. Deepika Terrell MANUAL DIFF REQ NO Normal [facility] Comment on above: Performed By: #### I NSULT #### [facility] [address] [place] [address] Dr. Deepika Terrell MCH (RBC) [Entitic mass] 29.9 pg Normal 25.9-34.0 [facility] Comment on above: Performed By: #### I NSULT #### [facility] [address] [address] [address] Deepika Terrell MCHC (RBC) [Mass/Vol] 32.9 g/dL Normal 29.9-35.2 [facility] Comment on above: Performed By: #### I NSULT #### [facility] [address] [address] [address] Deepika Terrell MCV (RBC) [Entitic vol] 90.9 fL Normal 80.0-94.0 [facility] Comment on above: Performed By: #### I NSULT #### [facility] [address] [address] [address] Deepika Terrell MONO # 0.8 103/ul Normal 0.3-0.8 [facility] Comment on above: Performed By: #### I NSULT #### [facility] [address] [address] [address] Deepika Terrell Monocytes/100 WBC (Bld) 7.4 % Normal 1.7-12.0 [facility] Comment on above: Performed By: #### I NSULT #### [facility] [address] [place] [address] Dr. Deepika Terrell NEUT # 7.9 103/ul Critically high 1.4-6.5 [facility] Comment on above: Performed By: #### I NSULT #### [facility] [address] [place] [address] Dr. Deepika Terrell Neutrophils/100 WBC (Bld) 71.1 % Normal 43.0-75.0 [facility] Comment on above: Performed By: #### I NSULT #### [facility] [address] [place] [address] Dr. Deepika Terrell Platelet mean volume (Bld) [Entitic vol] 10.7 fL Normal 9.5-13.5 [facility] Comment on above: Performed By: #### I NSULT #### [facility] [address] [place] [address] Dr. Deepika Terrell PLT 295 103/ul Normal 150-450 [facility] Comment on above: Performed By: #### I NSULT #### [facility] [address] [place] [address] Dr. Deepika Terrell RBC 3.28 106/ul Critically low 4.70-6.10 [facility] Comment on above: Performed By: #### I NSULT #### [facility] [address] [place] [address] Dr. Deepika Terrell WBC 11.1 103/ul Critically high 4.0-11.0 [facility] Comment on above: Performed By: #### I NSULT #### [facility] [address] [address] ABD/PELV W CONon [...] YANIV DACOSTA Date: 2022-06-01 22:50 Normal [facility]on 05[facility]09 SARS-CoV-2 (COVID-19) RNA DANICA+probe Ql (Unsp spec) Not detected Normal NOT DETECTED [facility] Comment on above: Result Comment: When [...] for this test is supported by the [place] of Health and Human Service's declaration that [...] used). Performed By: #### I NSULT #### [facility] [address] [place] [address] Dr. Deepika Terrell ER URINE PROFILEon 3 Bilirubin Ql (U) Negative Normal NEGATIVE [facility] Comment on above: Performed By: #### E RUR #### [facility] [address] [place] [address] Dr. Deepika Terrell Clarity (U) CLEAR Normal CLEAR [facility] Comment on above: Performed By: #### E RUR #### [facility] [address] [place] [address] Dr. Deepika Terrell Color (U) LT. YELLOW Normal YELLOW [facility] Comment on above: Performed By: #### E RUR #### [facility] [address] [place] [address] Dr. Deepika Terrell ERUAHD A micrscopic examina tion will be performed if indicated. Normal [facility] Comment on above: Performed By: #### E RUR #### [facility] [address] [address] [address] Deepika Terrell Glucose Ql (U) Negative Normal NEGATIVE [facility] Comment on above: Performed By: #### E RUR #### [facility] [address] [place] [address] Dr. Deepika Terrell Hemoglobin Ql (U) Negative Normal NEGATIVE [facility] Comment on above: Performed By: #### E RUR #### [facility] [address] [place] [address] Dr. Deepika Terrell Ketones Ql (U) Negative Normal NEGATIVE [facility] Comment on above: Performed By: #### E RUR #### [facility] [address] [place] [address] Dr. Deepika Terrell LEUKOCYTES Negative Normal NEGATIVE [facility] Comment on above: Performed By: #### E RUR #### [facility] [address] [place] [address] Dr. Deepika Terrell Nitrite Ql (U) Negative Normal NEGATIVE [facility] Comment on above: Performed By: #### E RUR #### [facility] [address] [place] [address] Dr. Deepika Terrell pH (U) 6.0 [pH] Normal 5-9 [facility] Comment on above: Performed By: #### E RUR #### [facility] [address] [place] [address] Dr. Deepika Terrell SPEC GRAVITY 1.010 Normal 1.005-<=1.02 5 [facility] Comment on above: Performed By: #### E RUR #### [facility] [address] [place] [address] Dr. Deepika Terrell UA PROTEIN Negative Normal NEGATIVE/ TRACE [facility] Comment on above: Performed By: #### E RUR #### [facility] [address] [place] [address] Dr. Deepika Terrell UR MICRO IND NOT INDICATED Normal [facility] Comment on above: Performed By: #### E RUR #### [facility] [address] [place] [address] Dr. Deepika Terrell Urobilinogen Qn (U) 0.2 {Jesus'U}/dL Normal 0.2 - 1.0 [facility] Comment on above: Performed By: #### E RUR #### [facility] [address] [place] [address] Dr. Deepika Terrell GLYCOHEMOGLOBIN A1Con 2022 ADA RECOMMENDATION SEE BELOW Normal [facility] Comment on above: Result Comment: ADA RECOMMENDED LIMIT 4.0 - 6.0 ADA THERAPEUTIC TARGET < 7.0 ACTION SUGGESTED > 7.0 Performed By: #### I NSULT #### [facility] [address] [place] [address] Dr. Deepika Terrell Glucose [Mass/Vol] 134 mg/dL Normal [facility] Comment on above: Performed By: #### I NSULT #### [facility] [address] [place] [address] Dr. Deepika Terrell HbA1c (Bld) [Mass fraction] 6.3 % Critically high 4.5-6.2 [facility] Comment on above: Performed By: #### I NSULT #### [facility] [address] [place] [address] Dr. Deepika Terrell POINT OF CARE GLUCOSEon 05-09 Glucose [Mass/Vol] 175 mg/dL Critically high 74-106 [facility] Comment on above: Performed By: #### I NSULT #### [facility] [address] [place] [address] Dr. Deepika Terrell Glucose [Mass/Vol] 151 mg/dL Critically high 74-106 [facility] Comment on above: Performed By: #### I NSULT #### [facility] [address] [place] [address] Dr. Deepika Terrell Glucose [Mass/Vol] 95 mg/dL Normal 74-106 [facility] Comment on above: Performed By: #### C BC #### [facility] [address] [place] [address] Dr. Deepika Terrell Glucose [Mass/Vol] 83 mg/dL Normal 74-106 [facility] Comment on above: Performed By: #### I NSULT #### [facility] [address] [place] [address] Dr. Deepika Terrell Glucose [Mass/Vol] 63 mg/dL Critically low 74-106 [facility] Comment on above: Performed By: #### P ERSMR #### [facility] [address] [address] [address] Deepika Terrell Glucose [Mass/Vol] 48 mg/dL Critically low 74-106 [facility] Comment on above: Result Comment: Resu lt Not Confirmed Performed By: #### B MP #### [facility] [address] [place] [address] Dr. Deepika Terrell Glucose [Mass/Vol] 62 mg/dL Critically low 74-106 [facility] Comment on above: Performed By: #### B MP #### [facility] [address] [place] [address] Dr. Deepika Terrell Glucose [Mass/Vol] 61 mg/dL Critically low 74-106 [facility] Comment on above: Performed By: #### C PEPT #### [facility] [address] [place] [address] Dr. Deepika Terrell PROF CHEM 8 (BAS METB)on Anion gap [Moles/Vol] 11.6 mmol/L Normal [facility] Comment on above: Performed By: #### B MP #### [facility] [address] [place] [address] Dr. Deepika Terrell Calcium [Mass/Vol] 8.2 mg/dL Critically low 8.5-10.1 [facility] Comment on above: Performed By: #### B MP #### [facility] [address] [place] [address] Dr. Deepika Terrell Chloride [Moles/Vol] 111 mmol/L Critically high 98-107 [facility] Comment on above: Performed By: #### B MP #### [facility] [address] [place] [address] Dr. Deepika Terrell CO2 [Moles/Vol] 23.5 mmol/L Normal 21.0-32.0 [facility] Comment on above: Performed By: #### B MP #### [facility] [address] [address] [address] Deepika Terrell Creatinine [Mass/Vol] 1.32 mg/dL Critically high 0.70-1.30 [facility] Comment on above: Performed By: #### B MP #### [facility] [address] [address] [address] Deepika Terrell EGFR-AF [place] >60 Normal >=60 [facility] Comment on above: Performed By: #### B MP #### [facility] [address] [address] [address] Deepika Terrell EGFR-NON AF [place] 51 mL/min/1.73m2 Critically low >=60 [facility] Comment on above: Performed By: #### B MP #### [facility] [address] [address] [address] Deepika Terrell Glucose [Mass/Vol] 91 mg/dL Normal 74-106 [facility] Comment on above: Performed By: #### B MP #### [facility] [address] [address] [address] Deepika Terrell Potassium [Moles/Vol] 4.1 mmol/L Normal 3.5-5.1 [facility] Comment on above: Performed By: #### B MP #### [facility] [address] [address] [address] Deepika Terrell Sodium [Moles/Vol] 142 mmol/L Normal 136-145 [facility] Comment on above: Performed By: #### B MP #### [facility] [address] [address] [address] Deepika Terrell Urea nitrogen [Mass/Vol] 29.0 mg/dL Critically high 7.0-18.0 [facility] Comment on above: Performed By: #### B MP #### [facility] [address] [address] [address] Deepika Terrell Urea nitrogen/Creatinin e [Mass ratio] 22.0 mg/mg Normal [facility] Comment on above: Performed By: #### B MP #### [facility] [address] [place] [address] Dr. Deepika Terrell AMMONIAon 06-01-2022 Ammonia (P) [Moles/Vol] 17 umol/L Normal 11-32 [facility] Comment on above: Performed By: #### C BC #### [facility] [address] [place] [address] Dr. Deepika Terrell BNPon 06-01-2022 Natriuretic peptide B (Bld) [Mass/Vol] 132.0 pg/mL Normal <=1,800.0 [facility] Comment on above: Performed By: #### C BC #### [facility] [address] [place] [address] Dr. Deepika Terrell CBC AUTO DIFFon 06-01-2022 BASO # 0.1 103/ul Normal 0.0-0.1 [facility] Comment on above: Performed By: #### C BC #### [facility] [address] [place] [address] Dr. Deepika Terrell Basophils/100 WBC (Bld) 0.3 % Normal 0.2-2.0 [facility] Comment on above: Performed By: #### C BC #### [facility] [address] [place] [address] Dr. Deepika Terrell EO # 0.1 103/ul Normal 0.0-0.7 [facility] Comment on above: Performed By: #### C BC #### [facility] [address] [place] [address] Dr. Deepika Terrell Eosinophils/100 WBC (Bld) 0.9 % Normal 0.9-7.0 [facility] Comment on above: Performed By: #### C BC #### [facility] [address] [place] [address] Dr. Deepika Terrell Erythrocyte distribution width (RBC) [Ratio] 14.7 % Normal 11.0-15.0 [facility] Comment on above: Performed By: #### C BC #### [facility] [address] [place], [place] [id number] Dr. Deepika Terrell Hematocrit (Bld) [Volume fraction] 33.6 % Critically low 42.0-54.0 [facility] Comment on above: Performed By: #### C BC #### [facility] [address] [place] [address] Dr. Deepika Terrell Hemoglobin (Bld) [Mass/Vol] 10.9 g/dL Critically low 14.0-18.0 [facility] Comment on above: Performed By: #### C BC #### [facility] [address] [place] [address] Dr. Deepika Terrell IG # 0.07 10e3/ul Critically high 0.00-0.03 [facility] Comment on above: Performed By: #### C BC #### [facility] [address] [place] [address] Dr. Deepika Terrell IG % 0.5 % Normal 0.0-0.5 [facility] Comment on above: Performed By: #### C BC #### [facility] [address] [place] [address] Dr. Deepika Terrell LYMPH # 1.5 103/ul Normal 1.2-3.8 [facility] Comment on above: Performed By: #### C BC #### [facility] [address] [place] [address] Dr. Deepika Terrell Lymphocytes/100 WBC (Bld) 10.3 % Critically low 20.5-60.0 [facility] Comment on above: Performed By: #### C BC #### [facility] [address] [place] [address] Dr. Deepika Terrell MANUAL DIFF REQ NO Normal [facility] Comment on above: Performed By: #### C BC #### [facility] [address] [place] [address] Dr. Deepika Terrell MCH (RBC) [Entitic mass] 29.9 pg Normal 25.9-34.0 [facility] Comment on above: Performed By: #### C BC #### [facility] [address] [place] [address] Dr. Deepika Terrell MCHC (RBC) [Mass/Vol] 32.4 g/dL Normal 29.9-35.2 [facility] Comment on above: Performed By: #### C BC #### [facility] [address] [address] [address] Deepika Terrell MCV (RBC) [Entitic vol] 92.1 fL Normal 80.0-94.0 [facility] Comment on above: Performed By: #### C BC #### [facility] [address] [address] [address] Deepika Terrell MONO # 1.3 103/ul Critically high 0.3-0.8 [facility] Comment on above: Performed By: #### C BC #### [facility] [address] [place] [address] Dr. Deepika Terrell Monocytes/100 WBC (Bld) 8.9 % Normal 1.7-12.0 [facility] Comment on above: Performed By: #### C BC #### [facility] [address] [place] [address] Dr. Deepika Terrell NEUT # 11.8 103/ul Critically high 1.4-6.5 [facility] Comment on above: Performed By: #### C BC #### [facility] [address] [place] [address] Dr. Deepika Terrell Neutrophils/100 WBC (Bld) 79.1 % Critically high 43.0-75.0 [facility] Comment on above: Performed By: #### C BC #### [facility] [address] [address] [address] Deepika Terrell Platelet mean volume (Bld) [Entitic vol] 11.4 fL Normal 9.5-13.5 [facility] Comment on above: Performed By: #### C BC #### [facility] [address] [place] [address] Dr. Deepika Terrell PLT 324 103/ul Normal 150-450 [facility] Comment on above: Performed By: #### C BC #### [facility] [address] [place] [address] Dr. Deepika Terrell RBC 3.65 106/ul Critically low 4.70-6.10 [facility] Comment on above: Performed By: #### C BC #### [facility] [address] [place] [address] Dr. Deepika Terrell WBC 14.9 103/ul Critically high 4.0-11.0 [facility] Comment on above: Performed By: #### C BC #### [facility] [address] [place] [address] Dr. Deepika Terrell POINT OF CARE GLUCOSEon 05-09 Glucose [Mass/Vol] 29 mg/dL Critically low 74-106 [facility] Comment on above: Result Comment: Resu lt Not Confirmed Performed By: #### B MP #### [facility] [address] [place] [address] Dr. Deepika Terrell Glucose [Mass/Vol] 28 mg/dL Critically low 74-106 [facility] Comment on above: Result Comment: Will Repeat Test Performed By: #### C PEPT #### [facility] [address] [place] [address] Dr. Deepika Terrell PROF 14(COMP METB)on 023 Albumin [Mass/Vol] 3.3 g/dL Critically low 3.4-5.0 [facility] Comment on above: Performed By: #### C BC #### [facility] [address] [place] [address] Dr. Deepika Terrell Albumin/Globulin [Mass ratio] 1.0 {ratio} Normal [facility] Comment on above: Performed By: #### C BC #### [facility] [address] [place] [address] Dr. Deepika Terrell ALP [Catalytic activity/Vol] 75 U/L Normal 46-116 [facility] Comment on above: Performed By: #### C BC #### [facility] [address] [place] [address] Dr. Deepika Terrell ALT [Catalytic activity/Vol] 34 U/L Normal 16-63 [facility] Comment on above: Performed By: #### C BC #### [facility] [address] [address] [address] Deepika Terrell Anion gap [Moles/Vol] 14.0 mmol/L Normal [facility] Comment on above: Performed By: #### C BC #### [facility] [address] [address] [address] Deepika Terrell AST [Catalytic activity/Vol] 19 U/L Normal 15-37 [facility] Comment on above: Performed By: #### C BC #### [facility] [address] [address] [address] Deepika Terrell Bilirubin [Mass/Vol] 0.2 mg/dL Normal 0.2-1.0 [facility] Comment on above: Performed By: #### C BC #### [facility] [address] [place] [address] Dr. Deepika Terrell Calcium [Mass/Vol] 8.6 mg/dL Normal 8.5-10.1 [facility] Comment on above: Performed By: #### C BC #### [facility] [address] [place] [address] Dr. Deepika Terrell Chloride [Moles/Vol] 109 mmol/L Critically high 98-107 [facility] Comment on above: Performed By: #### C BC #### [facility] [address] [place] [address] Dr. Deepika Terrell CO2 [Moles/Vol] 23.9 mmol/L Normal 21.0-32.0 [facility] Comment on above: Performed By: #### C BC #### [facility] [address] [address] [address] Deepika Terrell Creatinine [Mass/Vol] 1.59 mg/dL Critically high 0.70-1.30 [facility] Comment on above: Performed By: #### C BC #### [facility] [address] [place] [address] Dr. Deepika Terrell EGFR-AF [place] 50 mL/min/1.73m2 Critically low >=60 [facility] Comment on above: Performed By: #### C BC #### [facility] [address] [place] [address] Dr. Deepika Terrell EGFR-NON AF [place] 41 mL/min/1.73m2 Critically low >=60 [facility] Comment on above: Performed By: #### C BC #### [facility] [address] [place] [address] Dr. Deepika Terrell Globulin (S) [Mass/Vol] 3.3 g/dL Normal [facility] Comment on above: Performed By: #### C BC #### [facility] [address] [address] [address] Deepika Terrell Glucose [Mass/Vol] 26 mg/dL Critically low 74-106 [facility] Comment on above: Performed By: #### C BC #### [facility] [address] [place] [address] Dr. Deepika Terrell Potassium [Moles/Vol] 3.9 mmol/L Normal 3.5-5.1 [facility] Comment on above: Performed By: #### C BC #### [facility] [address] [place] [address] Dr. Deepika Terrell Protein [Mass/Vol] 6.6 g/dL Normal 6.4-8.2 [facility] Comment on above: Performed By: #### C BC #### [facility] [address] [place] [address] Dr. Deepika Terrell Sodium [Moles/Vol] 143 mmol/L Normal 136-145 [facility] Comment on above: Performed By: #### C BC #### [facility] [address] [address] [address] Deepika Terrell Urea nitrogen [Mass/Vol] 34.0 mg/dL Critically high 7.0-18.0 [facility] Comment on above: Performed By: #### C BC #### [facility] [address] [place] [address] Dr. Deepika Terrell Urea nitrogen/Creatinin e [Mass ratio] 21.4 mg/mg Normal [facility] Comment on above: Performed By: #### C BC #### [facility] [address] [place] [address] Dr. Deepika Terrell TROPONIN, HIGH SENSITIVITYon 06-01-2022 HSTROP 13.2 pg/mL Normal 4.0-76.1 [facility] Comment on above: Result Comment: CUT- OFF POINTS HAVE BEEN ESTABLISHED BASED ON THE FOURTH UNIVERSAL DEFINITIONS OF MYOCARDIAL INFARCTION. THE UPPER REFERENCE LIMIT (URL) OF TROPONIN, DEFINED THE 99TH PERCENTILE OF cTnI DISTRIBUTION IN A REFERENCE POPULATION, HAS BEEN CONFIRMED THE DECISION THRESHOLD FOR MA DIAGNOSIS. Performed By: #### B MP #### [facility] [address] [place] [address] Dr. Deepika Terrell GI PANEL (PCR)on 05-30-2022 Adenovirus F 40/41 Not detected Normal NOT DETECTED [facility] Comment on above: Performed By: #### P ERSMR #### [facility] [address] [place] [address] Dr. Deepika Terrell Astrovirus Not detected Normal NOT DETECTED [facility] Comment on above: Performed By: #### P ERSMR #### [facility] [address] [place] [address] Dr. Deepika Terrell C. Diff toxin A/B Not detected Normal NOT DETECTED [facility] Comment on above: Performed By: #### P ERSMR #### [facility] [address] [place] [address] Dr. Deepika Terrell Campylobacter Not detected Normal NOT DETECTED [facility] Comment on above: Performed By: #### P ERSMR #### [facility] [address] [place] [address] Dr. Deepika Terrell Cryptosporidium Not detected Normal NOT DETECTED [facility] Comment on above: Performed By: #### P ERSMR #### [facility] [address] [place] [address] Dr. Deepika Terrell Cyclos. Cayetanensis Not detected Normal NOT DETECTED [facility] Comment on above: Performed By: #### P ERSMR #### [facility] [address] [place] [address] Dr. Deepika Terrell E. Coli O157 Not Applicable Normal Not Applicable [facility] Comment on above: Performed By: #### P ERSMR #### [facility] [address] [place] [address] Dr. Deepika Terrell E. histolytica Not detected Normal NOT DETECTED [facility] Comment on above: Performed By: #### P ERSMR #### [facility] [address] [place] [address] Dr. Deepika Terrell EAEC Not detected Normal NOT DETECTED [facility] Comment on above: Performed By: #### P ERSMR #### [facility] [address] [place] [address] Dr. Deepika Terrell EIEC Not detected Normal NOT DETECTED [facility] Comment on above: Performed By: #### P ERSMR #### [facility] [address] [place] [address] Dr. Deepika Terrell EPEC Not detected Normal NOT DETECTED [facility] Comment on above: Performed By: #### P ERSMR #### [facility] [address] [place] [address] Dr. Deepika Terrell ETEC Not detected Normal NOT DETECTED [facility] Comment on above: Performed By: #### P ERSMR #### [facility] [address] [place] [address] Dr. Deepika Terrell G. Lamblia Not detected Normal NOT DETECTED [facility] Comment on above: Performed By: #### P ERSMR #### [facility] [address] [place] [address] Dr. Deepika WOLFE CONTROLS PASSED Normal [facility] Comment on above: Performed By: #### P ERSMR #### [facility] [address] [place] [address] Dr. Deepika PENG SHELBY HEADER GI PANEL BACTERIA Normal [facility] Comment on above: Performed By: #### P ERSMR #### [facility] [address] [place] [address] Dr. Deepika CACERES ECOLI GI PANEL DIARRHEAGEN IC E.COLI / SHIGELLA Normal [facility] Comment on above: Performed By: #### P ERSMR #### [facility] [address] [place] [address] Dr. Deepika CACERES INFO SEE BELOW Normal [facility] Comment on above: Result Comment: EAEC - Enteroaggregative E. Coli EPEC- Enteropathogenic E. Coli ETEC- Enterotoxigenic E. Coli lt/st STEC- Shigella-like toxin-producing E. Coli stx1/stx2 EIEC- Shigella/Enteroinvasive E. Coli Performed By: #### P ERSMR #### [facility] [address] [address] [address] Deepika CACERES PARASITES GI PANEL PARASITES Normal [facility] Comment on above: Performed By: #### P ERSMR #### [facility] [address] [address] [address] Deepika CACERES VIRUS GI PANEL VIRUSES Normal [facility] Comment on above: Performed By: #### P ERSMR #### [facility] [address] [address] [address] Deepika Terrell Norovirus GI/GII Not detected Normal NOT DETECTED [facility] Comment on above: Performed By: #### P ERSMR #### [facility] [address] [address] [address] Deepika Terrell P. Shigelloides Not detected Normal NOT DETECTED [facility] Comment on above: Performed By: #### P ERSMR #### [facility] [address] [address] [address] Deepika Terrell Rotavirus A Not detected Normal NOT DETECTED [facility] Comment on above: Performed By: #### P ERSMR #### [facility] [address] [address] [address] Deepika Terrell Salmonella Not detected Normal NOT DETECTED [facility] Comment on above: Performed By: #### P ERSMR #### [facility] [address] [address] [address] Deepika Terrell Sapovirus Not detected Normal NOT DETECTED [facility] Comment on above: Performed By: #### P ERSMR #### [facility] [address] [address] [address] Deepika Terrell STEC Not detected Normal NOT DETECTED [facility] Comment on above: Performed By: #### P ERSMR #### [facility] [address] [place] [address] Dr. Deepika Terrell Vibrio Not detected Normal NOT DETECTED [facility] Comment on above: Performed By: #### P ERSMR #### [facility] [address] [place] [address] Dr. Deepika Terrell Vibrio Cholera Not detected Normal NOT DETECTED [facility] Comment on above: Performed By: #### P ERSMR #### [facility] [address] [place] [address] Dr. Deepika Tererll Y. Enterocolitica Not detected Normal NOT DETECTED [facility] Comment on above: Performed By: #### P ERSMR #### [facility] [address] [place] [address] Dr. Deepika Terrell PROF CHEM 8 (BAS METB)on Anion gap [Moles/Vol] 13.9 mmol/L Normal [facility] Comment on above: Performed By: #### P ERSMR #### [facility] [address] [place] [address] Dr. Deepika Terrell Calcium [Mass/Vol] 8.9 mg/dL Normal 8.5-10.1 [facility] Comment on above: Performed By: #### P ERSMR #### [facility] [address] [place] [address] Dr. Deepika Terrell Chloride [Moles/Vol] 104 mmol/L Normal 98-107 [facility] Comment on above: Performed By: #### P ERSMR #### [facility] [address] [place] [address] Dr. Deepika Terrell CO2 [Moles/Vol] 26.3 mmol/L Normal 21.0-32.0 [facility] Comment on above: Performed By: #### P ERSMR #### [facility] [address] [place] [address] Dr. Deepika Terrell Creatinine [Mass/Vol] 1.70 mg/dL Critically high 0.70-1.30 [facility] Comment on above: Performed By: #### P ERSMR #### [facility] [address] [place] [address] Dr. Deepika Terrell EGFR-AF [place] 47 mL/min/1.73m2 Critically low >=60 [facility] Comment on above: Performed By: #### P ERSMR #### [facility] [address] [address] [address] Deepika Terrell EGFR-NON AF [place] 38 mL/min/1.73m2 Critically low >=60 [facility] Comment on above: Performed By: #### P ERSMR #### [facility] [address] [address] [address] Deepika Terrell Glucose [Mass/Vol] 62 mg/dL Critically low 74-106 [facility] Comment on above: Performed By: #### P ERSMR #### [facility] [address] [address] [address] Deepika Terrell Potassium [Moles/Vol] 4.2 mmol/L Normal 3.5-5.1 [facility] Comment on above: Performed By: #### P ERSMR #### [facility] [address] [address] [address] Deepika Terrell Sodium [Moles/Vol] 140 mmol/L Normal 136-145 [facility] Comment on above: Performed By: #### P ERSMR #### [facility] [address] [address] [address] Deepika Terrell Urea nitrogen [Mass/Vol] 34.0 mg/dL Critically high 7.0-18.0 [facility] Comment on above: Performed By: #### P ERSMR #### [facility] [address] [address] [address] Deepika Terrell Urea nitrogen/Creatinin e [Mass ratio] 20.0 mg/mg Normal [facility] Comment on above: Performed By: #### P ERSMR #### [facility] [address] [address] [address] Deepika Terrell ECHOCARDIO M/2D COMPLETEon 1 06-02-2021 ECHOCARDIO M/2D COMPLETE Patient: MASON NATARAJAN Exam Date: 04/01/2022 : 1935 Gender:M Ordering : ARNEL BAEZA Admission #: [id number] Family : Order #: [id number] CLICK HERE TO VIEW EXAM ECHOCARDIOGRAM REPORT [...] Pressure: 33.31 ml, 33.31 ml Dictated by: Keaun Bain M.D. on 04/09/2022 at 08:45 Approved by: Keanu Bain M.D. on 04/09/2022 at 08:52 Normal [facility] CBC AUTO DIFFon 02-05-2022 BASO # 0.1 103/ul Normal 0.0-0.1 [facility] Comment on above: Performed By: #### C BC #### [facility] [address] [address] [address] Deepika Terrell Basophils/100 WBC (Bld) 0.5 % Normal 0.2-2.0 [facility] Comment on above: Performed By: #### C BC #### [facility] [address] [address] [address] Deepika Terrell EO # 0.3 103/ul Normal 0.0-0.7 [facility] Comment on above: Performed By: #### C BC #### [facility] [address] [place] [address] Dr. Deepika Terrell Eosinophils/100 WBC (Bld) 3.3 % Normal 0.9-7.0 [facility] Comment on above: Performed By: #### C BC #### [facility] [address] [place] [address] Dr. Deepika Terrell Erythrocyte distribution width (RBC) [Ratio] 14.0 % Normal 11.0-15.0 [facility] Comment on above: Performed By: #### C BC #### [facility] [address] [place] [address] Dr. Deepika Terrell Hematocrit (Bld) [Volume fraction] 41.2 % Critically low 42.0-54.0 [facility] Comment on above: Performed By: #### C BC #### [facility] [address] [place] [address] Dr. Deepika Terrell Hemoglobin (Bld) [Mass/Vol] 13.4 g/dL Critically low 14.0-18.0 [facility] Comment on above: Performed By: #### C BC #### [facility] [address] [place] [address] Dr. Deepika Terrell IG # 0.04 10e3/ul Critically high 0.00-0.03 [facility] Comment on above: Performed By: #### C BC #### [facility] [address] [place] [address] Dr. Deepika Terrell IG % 0.4 % Normal 0.0-0.5 [facility] Comment on above: Performed By: #### C BC #### [facility] [address] [place] [address] Dr. Deepika Terrell LYMPH # 3.4 103/ul Normal 1.2-3.8 [facility] Comment on above: Performed By: #### C BC #### [facility] [address] [place] [address] Dr. Deepika Terrell Lymphocytes/100 WBC (Bld) 36.2 % Normal 20.5-60.0 [facility] Comment on above: Performed By: #### C BC #### [facility] [address] [place] [address] Dr. Deepika Terrell MANUAL DIFF REQ NO Normal [facility] Comment on above: Performed By: #### C BC #### [facility] [address] [place] [address] Dr. Deepika Terrell MCH (RBC) [Entitic mass] 30.9 pg Normal 25.9-34.0 [facility] Comment on above: Performed By: #### C BC #### [facility] [address] [place] [address] Dr. Deepika Terrell MCHC (RBC) [Mass/Vol] 32.5 g/dL Normal 29.9-35.2 [facility] Comment on above: Performed By: #### C BC #### [facility] [address] [place] [address] Dr. Deepika Terrell MCV (RBC) [Entitic vol] 94.9 fL Critically high 80.0-94.0 [facility] Comment on above: Performed By: #### C BC #### [facility] [address] [place] [address] Dr. Deepika Terrell MONO # 0.9 103/ul Critically high 0.3-0.8 [facility] Comment on above: Performed By: #### C BC #### [facility] [address] [place] [address] Dr. Deepika Terrell Monocytes/100 WBC (Bld) 9.9 % Normal 1.7-12.0 [facility] Comment on above: Performed By: #### C BC #### [facility] [address] [place] [address] Dr. Deepika Terrell NEUT # 4.7 103/ul Normal 1.4-6.5 [facility] Comment on above: Performed By: #### C BC #### [facility] [address] [place] [address] Dr. Deepika Terrell Neutrophils/100 WBC (Bld) 49.7 % Normal 43.0-75.0 [facility] Comment on above: Performed By: #### C BC #### [facility] [address] [address] [address] Deepika Terrell Platelet mean volume (Bld) [Entitic vol] 10.1 fL Normal 9.5-13.5 [facility] Comment on above: Performed By: #### C BC #### [facility] [address] [address] [address] Deepika Terrell PLT 290 103/ul Normal 150-450 [facility] Comment on above: Performed By: #### C BC #### [facility] [address] [address] [address] Deepika Terrell RBC 4.34 106/ul Critically low 4.70-6.10 [facility] Comment on above: Performed By: #### C BC #### [facility] [address] [place] [address] Dr. Deepika Terrell WBC 9.4 103/ul Normal 4.0-11.0 [facility] Comment on above: Performed By: #### C BC #### [facility] [address] [place] [address] Dr. Deepika Terrell FREE T3on 02-05-2022 FREE T3 1.83 pg/mlL Critically low 2.18-3.98 [facility] Comment on above: Performed By: #### C PEPT #### [facility] [address] [place] [address] Dr. Deepika Terrell GLYCOHEMOGLOBIN A1Con 2021 ADA RECOMMENDATION SEE BELOW Normal [facility] Comment on above: Result Comment: ADA RECOMMENDED LIMIT 4.0 - 6.0 ADA THERAPEUTIC TARGET < 7.0 ACTION SUGGESTED > 7.0 Performed By: #### A 1C #### [facility] [address] [place] [address] Dr. Deepika Terrell Glucose [Mass/Vol] 114 mg/dL Normal [facility] Comment on above: Performed By: #### A 1C #### [facility] [address] [place] [address] Dr. Deepika Terrell HbA1c (Bld) [Mass fraction] 5.6 % Normal 4.5-6.2 [facility] Comment on above: Performed By: #### A 1C #### [facility] [address] [address] [address] Deepika Terrell LIPID PROFILEon 02-05-2022 CHOL-HDL RATIO NORM SEE BELOW Normal [facility] Comment on above: Result Comment: 3.3 - 4.4 LOW RISK 4.4 - 7.1 AVERAGE RISK 7.1 - 11.0 MODERATE RISK >11.0 HIGH RISK Performed By: #### C PEPT #### [facility] [address] [address] [address] Deepika Terrell Cholesterol [Mass/Vol] 187 mg/dL Normal <=200 [facility] Comment on above: Performed By: #### C PEPT #### [facility] [address] [place] [address] Dr. Deepika Terrell Cholesterol in HDL [Mass/Vol] 49 mg/dL Normal 40-60 [facility] Comment on above: Performed By: #### C PEPT #### [facility] [address] [place] [address] Dr. Deepika Terrell Cholesterol in LDL [Mass/Vol] 123.8 mg/dL Normal [facility] Comment on above: Performed By: #### C PEPT #### [facility] [address] [place] [address] Dr. Deepika Terrell Cholesterol.total/ Cholesterol in HDL [Mass ratio] 3.8 {ratio} Normal [facility] Comment on above: Performed By: #### C PEPT #### [facility] [address] [place] [address] Dr. Deepika Terrell HDL NORMAL > or = 60 mg/dl - LO W CARDIOVASCULAR RISK <40 mg/dl - HIGH CARDIOVASCULAR RISK Normal [facility] Comment on above: Performed By: #### C PEPT #### [facility] [address] [place] [address] Dr. Deepika Terrell LDL CALC NORMAL SEE BELOW Normal [facility] Comment on above: Result Comment: <100 mg/dl OPTIMAL 100 - 129 mg/dl NEAR OR ABOVE OPTIMAL 130 - 159 mg/dl BORDERLINE HIGH 160 - 189 mg/dl HIGH >190 mg/dl VERY HIGH Performed By: #### C PEPT #### [facility] [address] [address] [address] Deepika Terrell Triglyceride [Mass/Vol] 71 mg/dL Normal <=150 [facility] Comment on above: Performed By: #### C PEPT #### [facility] [address] [place] [address] Dr. Deepika Terrell VLDL CALC 14.2 mg/dL Normal [facility] Comment on above: Performed By: #### C PEPT #### [facility] [address] [place] [address] Dr. Deepika Terrell PROF 14(COMP METB)on 022 Albumin [Mass/Vol] 4.0 g/dL Normal 3.4-5.0 [facility] Comment on above: Performed By: #### C PEPT #### [facility] [address] [place] [address] Dr. Deepika Terrell Albumin/Globulin [Mass ratio] 1.2 {ratio} Normal [facility] Comment on above: Performed By: #### C PEPT #### [facility] [address] [place] [address] Dr. Deepika Terrell ALP [Catalytic activity/Vol] 61 U/L Normal 46-116 [facility] Comment on above: Performed By: #### C PEPT #### [facility] [address] [place] [address] Dr. Deepika Terrell ALT [Catalytic activity/Vol] 38 U/L Normal 16-63 [facility] Comment on above: Performed By: #### C PEPT #### [facility] [address] [place] [address] Dr. Deepika Terrell Anion gap [Moles/Vol] 8.1 mmol/L Normal [facility] Comment on above: Performed By: #### C PEPT #### [facility] [address] [place] [address] Dr. Deepika Terrell AST [Catalytic activity/Vol] 19 U/L Normal 15-37 [facility] Comment on above: Performed By: #### C PEPT #### [facility] [address] [address] [address] Deepika Terrell Bilirubin [Mass/Vol] 0.4 mg/dL Normal 0.2-1.0 [facility] Comment on above: Performed By: #### C PEPT #### [facility] [address] [address] [address] Deepika Terrell Calcium [Mass/Vol] 9.4 mg/dL Normal 8.5-10.1 [facility] Comment on above: Performed By: #### C PEPT #### [facility] [address] [address] [address] Deepika Terrell Chloride [Moles/Vol] 104 mmol/L Normal 98-107 [facility] Comment on above: Performed By: #### C PEPT #### [facility] [address] [place] [address] Dr. Deepika Terrell CO2 [Moles/Vol] 32.6 mmol/L Critically high 21.0-32.0 [facility] Comment on above: Performed By: #### C PEPT #### [facility] [address] [place] [address] Dr. Deepika Terrell Creatinine [Mass/Vol] 1.63 mg/dL Critically high 0.70-1.30 [facility] Comment on above: Performed By: #### C PEPT #### [facility] [address] [place] [address] Dr. Deepika Terrell EGFR-AF [place] 49 mL/min/1.73m2 Critically low >=60 [facility] Comment on above: Performed By: #### C PEPT #### [facility] [address] [place] [address] Dr. Deepika Terrell EGFR-NON AF [place] 40 mL/min/1.73m2 Critically low >=60 [facility] Comment on above: Performed By: #### C PEPT #### [facility] [address] [place] [address] Dr. Deepika Terrell Globulin (S) [Mass/Vol] 3.3 g/dL Normal [facility] Comment on above: Performed By: #### C PEPT #### [facility] [address] [address] [address] Deepika Terrell Glucose [Mass/Vol] 127 mg/dL Critically high 74-106 [facility] Comment on above: Performed By: #### C PEPT #### [facility] [address] [address] [address] Deepika Terrell Potassium [Moles/Vol] 4.7 mmol/L Normal 3.5-5.1 [facility] Comment on above: Performed By: #### C PEPT #### [facility] [address] [address] [address] Deepika Terrell Protein [Mass/Vol] 7.3 g/dL Normal 6.4-8.2 [facility] Comment on above: Performed By: #### C PEPT #### [facility] [address] [place] [address] Dr. Deepika Terrell Sodium [Moles/Vol] 140 mmol/L Normal 136-145 [facility] Comment on above: Performed By: #### C PEPT #### [facility] [address] [place] [address] Dr. Deepika Terrell Urea nitrogen [Mass/Vol] 37.0 mg/dL Critically high 7.0-18.0 [facility] Comment on above: Performed By: #### C PEPT #### [facility] [address] [place] [address] Dr. Deepika Terrell Urea nitrogen/Creatinin e [Mass ratio] 22.7 mg/mg Normal [facility] Comment on above: Performed By: #### C PEPT #### [facility] [address] [place] [address] Dr. Deepika Terrell T4on 02-05-2022 T4 [Mass/Vol] 8.40 ug/dL Normal 4.50-12.10 [facility] Comment on above: Performed By: #### C PEPT #### [facility] [address] [place] [address] Dr. Deepika Terrell TSHon 02-05-2022 TSH 1.762 uIU/mL Normal 0.358-3.740 [facility] Comment on above: Performed By: #### C PEPT #### [facility] [address] [address] [address] Deepika Terrell US [place] DOP LEG [...] GEOVANY ESPINAL Date: 2021-12-26 13:02 Normal [facility] PROF CHEM 8 (BAS METB)on Anion gap [Moles/Vol] 15.1 mmol/L Normal [facility] Comment on above: Performed By: #### B MP #### [facility] [address] [place] [address] Dr. Deepika Terrell Calcium [Mass/Vol] 9.2 mg/dL Normal 8.5-10.1 [facility] Comment on above: Performed By: #### B MP #### [facility] [address] [address] [address] Deepika Terrell Chloride [Moles/Vol] 102 mmol/L Normal 98-107 [facility] Comment on above: Performed By: #### B MP #### [facility] [address] [address] [address] Deepika Terrell CO2 [Moles/Vol] 25.8 mmol/L Normal 21.0-32.0 [facility] Comment on above: Performed By: #### B MP #### [facility] [address] [address] [address] Deepika Terrell Creatinine [Mass/Vol] 1.70 mg/dL Critically high 0.70-1.30 [facility] Comment on above: Performed By: #### B MP #### [facility] [address] [address] [address] Deeipka Terrell EGFR-AF [place] 47 mL/min/1.73m2 Critically low >=60 [facility] Comment on above: Performed By: #### B MP #### [facility] [address] [address] [address] Deepika Terrell EGFR-NON AF [place] 38 mL/min/1.73m2 Critically low >=60 [facility] Comment on above: Performed By: #### B MP #### [facility] [address] [address] [address] Deepika Terrell Glucose [Mass/Vol] 75 mg/dL Normal 74-106 [facility] Comment on above: Performed By: #### B MP #### [facility] [address] [address] [address] Deepika Terrell Potassium [Moles/Vol] 4.9 mmol/L Normal 3.5-5.1 [facility] Comment on above: Performed By: #### B MP #### [facility] [address] [address] [address] Deepika Terrell Sodium [Moles/Vol] 138 mmol/L Normal 136-145 [facility] Comment on above: Performed By: #### B MP #### [facility] [address] [address] [address] Deepika Terrell Urea nitrogen [Mass/Vol] 45.0 mg/dL Critically high 7.0-18.0 [facility] Comment on above: Performed By: #### B MP #### [facility] [address] [address] [address] Deepika Terrell Urea nitrogen/Creatinin e [Mass ratio] 26.5 mg/mg Normal [facility] Comment on above: Performed By: #### B MP #### [facility] [id number] Deepika Terrell PROF CHEM 8 (BAS METB)on Anion gap [Moles/Vol] 14.2 mmol/L Normal [facility] Comment on above: Performed By: #### B MP #### [facility] [address] [address] [address] Deepika Terrell Calcium [Mass/Vol] 9.4 mg/dL Normal 8.5-10.1 [facility] Comment on above: Performed By: #### B MP #### [facility] [address] [place] [address] Dr. Deepika Terrell Chloride [Moles/Vol] 106 mmol/L Normal 98-107 [facility] Comment on above: Performed By: #### B MP #### [facility] [address] [address] [address] Deepika Terrell CO2 [Moles/Vol] 25.1 mmol/L Normal 21.0-32.0 [facility] Comment on above: Performed By: #### B MP #### [facility] [address] [place] [address] Dr. Deepika Terrell Creatinine [Mass/Vol] 1.72 mg/dL Critically high 0.70-1.30 [facility] Comment on above: Performed By: #### B MP #### [facility] [address] [place] [address] Dr. Deepika Terrell EGFR-AF [place] 46 mL/min/1.73m2 Critically low >=60 [facility] Comment on above: Performed By: #### B MP #### [facility] [address] [place] [address] Dr. Deepika Terrell EGFR-NON AF [place] 38 mL/min/1.73m2 Critically low >=60 [facility] Comment on above: Performed By: #### B MP #### [facility] [address] [address] [address] Deepika Terrell Glucose [Mass/Vol] 51 mg/dL Critically low 74-106 [facility] Comment on above: Performed By: #### B MP #### [facility] [address] [address] [address] Deepika Terrell Potassium [Moles/Vol] 6.2 mmol/L Critically high 3.5-5.1 [facility] Comment on above: Performed By: #### B MP #### [facility] [address] [address] [address] Deepika Terrell Sodium [Moles/Vol] 138 mmol/L Normal 136-145 [facility] Comment on above: Performed By: #### B MP #### [facility] [address] [place], [place] [address] Dr. Deepika Terrell Urea nitrogen [Mass/Vol] 42.0 mg/dL Critically high 7.0-18.0 [facility] Comment on above: Performed By: #### B MP #### [facility] [address] [place], [place] [address] Dr. Deepika Terrell Urea nitrogen/Creatinin e [Mass ratio] 24.4 mg/mg Normal [facility] Comment on above: Performed By: #### B MP #### [facility] [address] [place], [place] [address] Dr. Deepika Terrell MRI LSPINE WO CONon [...] by: KURT DON Date: 2021-09-14 14:24 Normal [facility] XR LSPINE MIN 4 VIEWSon - XR LSPINE MIN 4 VIEWS EXAMINATION: XR [...] by: KURT DON Date: 2021-09-10 20:46 Normal [facility] GLYCOHEMOGLOBIN A1Con 2021 ADA RECOMMENDATION SEE BELOW Normal [facility] Comment on above: Result Comment: ADA RECOMMENDED LIMIT 4.0 - 6.0 ADA THERAPEUTIC TARGET < 7.0 ACTION SUGGESTED > 7.0 Performed By: #### C PEPT #### [facility] [address] [place] [address] Dr. Deepika Terrell Glucose [Mass/Vol] 131 mg/dL Normal [facility] Comment on above: Performed By: #### C PEPT #### [facility] [address] [place] [address] Dr. Deepika Terrell HbA1c (Bld) [Mass fraction] 6.2 % Normal 4.5-6.2 [facility] Comment on above: Performed By: #### C PEPT #### [facility] [address] [address] [address] Deepika Terrell Blood Urea Nitrogenon 2020 Urea nitrogen [Mass/Vol] 23 mg/dL Normal 9-23 [facility] Comment on above: Performed By: #### B AIDA, CREAT #### [facility] [address] [address] [facility] CT abdomen pelvis w conon CT abdomen pelvis w con [facility] [address] [place] [address] [place] [address] CT Scan Report Signed Patient: Mason Natarajan MR#: [id number] : 1935 Acct:[id number] Age/Sex: 85 / M ADM Date: 10/26/20 Loc: Room: Type: [facility] Attending Dr: Srinivasan Beaulieu MD Ordering Provider: [...] Eugene Cummings M.D.10/26/2020 4:54 PM Dictation Location: [place] [address] Transcribed By: [facility] 10/26/201653 Dictated By: Eugene Cummings II, MD 10/26/20 1648 Signed By: 10/26/201653 [facility] Creatinineon 10-26-2020 Creatinine [Mass/Vol] 1.44 mg/dL High 0.64-1.27 [facility] Comment on above: Performed By: #### B UN, CREAT #### [facility] [address] [place] [address] Creatinine Clr Calc Pharmacy 39.48 [facility] Comment on above: Result Comment: PERF ORMED BY: [place] [address] PATHOLOGIST BILLING CUSTOMER SERVICE REPRESENTATIVE ANTHONY WEAVER M.D. Performed By: #### B UN, CREAT #### [address] Estimated GFR ( Zahida 56 [facility] Comment on above: Result Comment: GFR estimated reference range: According to KDOQI guidelines, <60 ml/min/1.73m2 is sufficient to diagnose a patient with chronic kidney disease. Performed By: #### B UN, CREAT #### [facility] [address] [address] [place] Estimated GFR (Non- Am 47 [facility] Comment on above: Performed By: #### B UN, CREAT #### [facility] [address] [address] [place] Glucose Poct Glucometerson 0 10-26-2020 Glucose [Mass/Vol] 100 mg/dL [facility] Comment on above: Result Comment: [place] Glucose Reference Range is dependent on time and content of last meal. Glucose of more than 200 mg/dL in a nonstressed, ambulatory subject supports the diagnosis of Diabetes Mellitus. PERFORMED BY: [facility] [place] [address] PATHOLOGIST BILLING CUSTOMER SERVICE REPRESENTATIVE ANTHONY WEAVER M.D. Performed By: #### G ANGELA #### Point of Care testing , Junior 10-26-2020 L ------- Specimen: [id number] Received: 10/26/20 Status: SOLEDAD Millerlemuel Num: [id number] Spec Type: Surgical Subm Dr: Srinivasan Beaulieu MD Tissues: A Colon Biopsy (LEFT COLON BX) Procedures: HE Stain/2, Gross/Micro L4 Patient Age/Sex Location Account Attending Physician Mason Natarajan/Raissa [id number] Srinivasan Beaulieu MD SPEC NUM: [id number] RECD: 10/26/20 STATUS: SOLEDAD RILEY NUM: [id number] AALIYAH: 10/26/20- SUBM DR: Srinivasan Beaulieu MD ENTERED: 10/26/20-1256 [facility] DR: SPEC TYPE: Surgical DEPT: S ENTERED BY: [id number] RECV BY: [id number] ORDERED: HE Stain/2, Gross/Micro L4 ORDERED: HE [...] microscopic findings support the above pathologic diagnosis. [id number] Specimen: [id number] Received: 10/26/20 Status: SOLEDAD Riley Num: [id number] Spec Type: Surgical Subm Dr: Srinivasan Beaulieu MD Tissues: A Colon Biopsy (LEFT COLON BX) Procedures: HE Stain/2, Gross/Micro L4 Patient: Mason Natarajan [id number] (Continued) Signed (signature on file) Anthony Weaver MD 10/27/20 1718 [facility] History and Physicalon 01-15 HIM IP Note OR [employer] [facility] Surgical Pathologyon 017 Surgical Pathology (NOTE)[id number] Y LABORATORIESCONSULTING PATHOLOGISTS CORPORATIONANATOMIC OXHFLASQB[address] [place] [id number] Fax: SURGICAL PATHOLOGY CONSULTATIONPatient Name: Amy NATARAJAN Rec: [id number] Number: [id number]: 01/15/2017Received: 01/15/2017Reported: 01/16/2017 08:36-- Diagnosis --INTRAOCULAR LENS: GROSS ONLY.Kan Allred M.D.Electronically Signed Out tb04/16/11Clinical InformationPre-op Diagnosis: DISLOCATED IOL LEFT EYE Operative Findings: IOL GROSS ONLYOperation Performed: VITRECTOMY 25 GAUGE LENSECTOMY, KENALOGINJECTIONSource of Specimen1: IOL - GROSS ONLYGross Description MASON NATARAJAN JUANI GROSS ONLY 0.6 cm long x < 0.1 cm in diameterclear translucent lens with two tags. Gross only. Normal [facility] Vital Signs Date Time Vital Sign Value Performing Clinician Facility 08-03-2024 15:38-0400 Body height 172.72 cm [facility] 08-03-2024 15:38-0400 Body mass index (BMI) [Ratio] 25.4 kg/m2 [facility] 08-03-2024 15:38-0400 Body temperature 97.7 [degF] [facility] 08-03-2024 15:38-0400 Body weight 75.92 kg [facility] 08-03-2024 15:38-0400 Diastolic blood pressure 52 mm[Hg] [facility] 08-03-2024 15:38-0400 Heart rate 68 /min [facility] 08-03-2024 15:38-0400 Respiratory rate 16 /min [facility] 08-03-2024 15:38-0400 SaO2% (BldA) [Mass fraction] 94 % [facility] 08-03-2024 15:38-0400 Systolic blood pressure 126 mm[Hg] [facility] 05-11-2024 09:39-0500 Body height 172.72 cm [facility] 05-11-2024 09:39-0500 Body mass index (BMI) [Ratio] 35.9 kg/m2 [facility] 05-11-2024 09:39-0500 Body temperature 96.8 [degF] [facility] 05-11-2024 09:39-0500 Body weight 107.2 kg [facility] 05-11-2024 09:39-0500 Diastolic blood pressure 55 mm[Hg] [facility] 05-11-2024 09:39-0500 Heart rate 52 /min [facility] 05-11-2024 09:39-0500 Respiratory rate 16 /min [facility] 05-11-2024 09:39-0500 SaO2% (BldA) [Mass fraction] 98 % [facility] 05-11-2024 09:39-0500 Systolic blood pressure 159 mm[Hg] [facility] 11-13-2023 09:33-0400 Diastolic blood pressure 82 mm[Hg] Linda Montelongo MD Work Phone: [facility] 11-13-2023 09:33-0400 Heart rate 64 /min [facility]ongo [facility] 11-13-2023 09:33-0400 Systolic blood pressure 156 mm[Hg] Linda Montelongo MD Work Phone: [facility] 11-13-2023 09:18-0400 Body height 172.7 cm Linda Montelongo MD Work Phone: [facility] 11-13-2023 09:18-0400 Body mass index (BMI) [Ratio] 27.67 kg/m2 Linda Montelongo MD [facility] 11-13-2023 09:18-0400 Body weight 82.56 kg Linda Montelongo MD [facility] 11-13-2023 09:18-0400 SaO2% (BldA) [Mass fraction] 94 % Linda Montelongo MD Work Phone: [facility] 11-26-2022 09:45-0400 Body height 172.72 cm Chevy Robins Other [employer] Other 11-26-2022 09:45-0400 Body mass index (BMI) [Ratio] 24.63 kg/m2 Chevy Robins Other [employer] Other 11-26-2022 09:45-0400 Body weight 73.48 kg Chevy Robins Other [employer] Other 11-26-2022 09:45-0400 Diastolic blood pressure 61 mm[Hg] Chevy Robins Other [employer] Other 11-26-2022 09:45-0400 Systolic blood pressure 135 mm[Hg] Chevy Conniereynaldo Other [employer] Other 12-27-2021 14:00-0400 Body height 172.72 cm Chevy Robins Other [employer] Other 12-27-2021 14:00-0400 Body mass index (BMI) [Ratio] 28.43 kg/m2 Chevy Robins Other [employer] Other 12-27-2021 14:00-0400 Body weight 84.82 kg Chevy Robins Other [employer] Other 12-27-2021 14:00-0400 Diastolic blood pressure 75 mm[Hg] Chevy Carlos Aotilia Other [employer] Other 12-27-2021 14:00-0400 Systolic blood pressure 171 mm[Hg] Chevy Julienne Other [employer] Other 11-27-2021 09:51-0400 Diastolic blood pressure 71 mm[Hg] Darien REYNOLDS [facility] 11-27-2021 09:51-0400 Mean blood pressure 97 mm[Hg] Darien REYNOLDS [facility] 11-27-2021 09:51-0400 Respiratory rate 49 /min Darien COOK [facility] 11-27-2021 09:51-0400 Systolic blood pressure 150 mm[Hg] Darien COOK [facility] 11-27-2021 09:39-0400 Blood Pressure Location Darien REYNOLDS [facility] 11-27-2021 09:39-0400 Diastolic blood pressure 67 mm[Hg] Darien REYNOLDS [facility] 11-27-2021 09:39-0400 Heart rate 45 /min Darien REYONLDS [facility] 11-27-2021 09:39-0400 Systolic blood pressure 168 mm[Hg] Darien REYNOLDS [facility] 12-27-2020 14:00-0400 Body height 172.72 cm Chevy Robins Other [employer] Other 12-27-2020 14:00-0400 Body mass index (BMI) [Ratio] 28.13 kg/m2 Chevy Robins Other [employer] Other 12-27-2020 14:00-0400 Body weight 83.92 kg Chevy Robins Other [employer] Other Encounters Encounter Date Encounter Type Care Provider Facility Start: 08-03-2024 End: 08-03-2024 ambulatory [facility] Work Phone: Start: 08-03-2024 End: 08-03-2024 Patient encounter procedure [facility] Physician [facility] Nephrology Kaiden Work Phone: Start: 07-26-2024 Non-patient / Non-visit [facility]ician [facility] Work Phone: Start: 07-13-2024 End: 07-13-2024 ambulatory CHARMAINE ALICE [facility] Start: 05-11-2024 End: 05-11-2024 Patient encounter procedure [facility] Physician [facility] Nephrology Kaiden Work Phone: Start: 04-30-2024 End: 04-30-2024 ambulatory [facility] Start: 01-05-2024 End: 01-05-2024 ambulatory [facility] Start: 11-13-2023 End: 11-13-2023 Office outpatient new 45 minutes Linda Montelongo MD Work Phone: [facility] Comment on above: Bilateral carotid ar linnea stenosis without cerebral infarction (Primary Dx); Occlusion and stenosis of unspecified carotid artery Start: 11-11-2023 ambulatory Darien REYNOLDS Facility :[facility] [place] Start: 06-16-2023 End: 06-17-2023 ambulatory Darien REYNOLDS Facility:[facility] [place] Start: 06-16-2023 End: 06-16-2023 Patient encounter procedure Darien REYNOLDS [facility] [place] Start: 11-26-2022 End: 11-26-2022 ambulatory Chevy Robins Other [facility] [employer] Other Start: 11-26-2022 Patient encounter procedure Chevy Robins [facility] G[facility]enterology Start: 08-13-2022 End: 08-13-[address] ERIN BERG . Facility:[facility] Start: 08-12-2022 ambulatory Alli MUKHERJEE Facility : [facility] Start: 08-09-2022 End: 08-10-[address] ERIN BERG . Facility:[facility] Start: 08-08-2022 End: 08-09-[address] ERIN BERG . Facility:[facility] Start: 08-07-2022 End: 08-08-2022 ambulatory NONE LISTED REQUEST Facility:[facility] Start: 07-19-2022 End: 07-20-[address] ERIN BERG . Facility:[facility] Start: 07-17-2022 End: 07-18-[address] ERIN BERG . Facility:[facility] Start: 06-02-2022 End: 06-02-[address] ERIN BERG . Facility:[facility] Start: 05-30-2022 End: 05-30-[address] ERIN BERG . Facility:[facility] Start: 04-05-2022 End: 04-06-2022 ambulatory KARLTALHA BAEAZ Facility:[facility] Start: 04-01-2022 End: 04-02-2022 ambulatory KARLTALHA BAEZA Facility:[facility] Start: 02-05-2022 End: 02-06-[address] ERIN BERG . Facility:[facility] Start: 12-27-2021 End: 12-27-2021 ambulatory Chevy Robins Other [facility] [employer] Other Start: 12-27-2021 Patient encounter procedure Chevy Robins [facility] Start: 12-26-2021 End: 12-27-[address] ERIN BERG . Facility:[facility] Start: 11-27-2021 End: 11-27-2021 Patient encounter procedure Darien REYNOLDS [facility] Start: 10-18-2021 End: 10-26-[address] DOCTOR POON Facility:[facility] Start: 09-21-2021 End: 09-22-2021 ambulatory MELYSSA JOYA Facility:[facility] Start: 09-18-2021 End: 09-19-2021 ambulatory MELYSSA JOYA Facility:[facility] Start: 09-14-2021 End: 09-15-[address] ERIN BERG . Facility:[facility] Start: 09-10-2021 End: 09-11-[address] ERIN BERG . Facility:[facility] Start: 08-21-2021 End: 05-18-[address] NONE LISTED REQUEST Facility: Start: 12-27-2020 Patient encounter procedure Chevy Robins [facility] Start: 01-21-2017 End: 01-22-2017 Ambulatory DEFAULT PHYSICIAN Facility:[facility] Start: 01-17-2017 End: 01-18-2017 Ambulatory DEFAULT PHYSICIAN Facility:[facility] Start: 01-15-2017 End: 01-15-2017 Ambulatory CHET NESBITT [facility] Procedures Date Procedure Procedure Detail Performing Clinician Start: 02-05-[address] CHRIS BERG . Comment on above: Performed By: #### C PEPT #### [facility] [address] [place] [address] Dr. Deepika Terrell Start: 12-04-2020 Transurethral water vapor ablation of prostate Darien REYNOLDS Start: 10-12-2020 Cystoscopy Darien DUARTE Start: 01-15-2017 SURGICAL PATHOLOGY MIFARTUN NESBITT Start: 01-15-2017 POC GLUCOSE FINGERSTICK CHET NESBITT Start: 01-15-2017 DISCHARGE PATIENT DYLAN NESBITT Start: 01-15-2017 SURGICAL PATHOLOGY MIHN MAGDIEL NESBITT Start: 01-15-2017 ASSESS CHET NAJERA N Start: 01-15-2017 BEDREST CHET NAJERA N Start: 01-15-2017 Continuous pulse oximetry CHET NESBITT Start: 01-15-2017 INITIATE OXYGEN THER APY PROTOCOL CHET NESBITT Start: 01-15-2017 NEURO/VASCULAR CHECKS Raissa NESBITT Start: 01-15-2017 NOTIFY PHYSICIAN (SPECIFY) CHET NESBITT Start: 01-15-2017 NURSING COMMUNICATION Raissa NESBITT Start: 01-15-2017 REMOVE IV CHET OLIVERA N Start: 01-15-2017 VITAL SIGNS CHET OLIVERA N Start: 01-15-2017 CREATININE W/GFR POI NT OF CARE CHET NESBITT Start: 01-15-2017 POCT GLUCOSE CHET NAJERA N Start: 01-15-2017 POC CHEM8 INCLUDES C ALC. ANION GAP CHET NESBITT Appendectomy Darien REYNOLDS Cataract (disorder) Darien REYNOLDS Cataract (morphologi c abnormality) Dairen REYNOLDS Colonoscopy Darien REYNOLDS Hernia of abdominal cavity (disorder) Darien REYNOLDS Plan of Treatment Date Care Activity Detail Author Start: 11-12-2024 End: 11-12-2024 US Carotid arteries - bilateral Vas carotid duplex bilateral Vascular Ultrasound Routine Occlusion and stenosis of unspecified carotid artery Bilateral carotid artery stenosis without cerebral infarction Expected: 11/12/2024 (Approximate), Expires: 11/12/2024 [employer] Work Phone: Comment on above: Expected: 11/12/2024 (Approximate), Expires: 11/12/2024 Start: 12-07-2023 Influenza vaccination Influenza Vacc ine [facility] Start: 05-30-2023 COVID-19 Vaccine ( season) COVID-19 Vaccine () [facility] Start: 2000 Fall Risk Screening Fall Risk Screen ing [facility] Start: 1954 DTaP,Tdap and Td Vaccines (1 - Tdap) DTaP,Tdap and Td Vaccines (1 - Tdap) [facility] Start: 1953 Adult BMI Follow Up Plan Adult [facility] Plan [facility] Start: 1953 Adult BMI Screening Adult BMI Screen ing [facility] Start: 1947 Depression Screening Depression Scre ening [facility] Start: 1947 Tobacco Screening Tobacco Screening [facility] Start: 1935 Medicare Annual Wellness Visit Medicare Annual Wellness Visit [facility] Renal function 1999 panel - Serum or Plasma [facility] Renal function 1999 panel - Serum or Plasma [facility] US Kidney - bilateral Firela nds [facility] Immunizations Immunization Date Immunization Notes Care Provider Deng anguiano 05-02-2023 zoster vaccine recombinant Darien REYNOLDS [facility] 02-24-2023 zoster vaccine recombinant Darien REYNOLDS [facility] 01-27-2023 influenza virus vaccine, unspecified formulation Darien REYNOLDS [facility] 06-02-2022 influenza virus vaccine, unspecified formulation Darien REYNOLDS [facility] 06-02-2022 pneumococcal conjuga te vaccine, 13 valent Darien REYNOLDS [facility] 01-21-2022 influenza virus vaccine, unspecified formulation Darien REYNOLDS [facility] 09-27-2021 SARS-CoV-2 (COVID-19 ) mRNA-1273 vaccine Darien REYNOLDS [facility] 04-24-2021 SARS-CoV-2 (COVID-19 ) mRNA BNT-162b2 vax Darien REYNOLDS [facility] 01-25-2021 influenza virus vaccine, unspecified formulation Darien REYNOLDS [facility] 06-06-2020 SARS-CoV-2 (COVID-19 ) mRNA-1273 vaccine Darien REYNOLDS [facility] 05-09-2020 SARS-CoV-2 (COVID-19 ) mRNA-1273 vaccine Darien REYNOLDS [facility] 04-11-2020 SARS-CoV-2 (COVID-19 ) mRNA-1273 vaccine Darien REYNOLDS [facility] 01-14-2020 influenza virus vaccine, unspecified formulation Darien GAIL [facility] 01-06-2020 influenza virus vaccine, unspecified formulation Darien GAIL [facility] 01-28-2018 influenza virus vaccine, unspecified formulation Darien GAIL [facility] 02-05-2017 pneumococcal conjuga te vaccine, 13 valent Darien REYNOLDS [facility] 01-27-2017 influenza virus vaccine, unspecified formulation Darien GAIL [facility] 01-13-2017 influenza virus vaccine, unspecified formulation Darien GAIL [facility] 01-06-2017 influenza virus vaccine, unspecified formulation Darien GAIL [facility] 01-03-2016 influenza virus vaccine, unspecified formulation Darien GAIL [facility] 01-06-2015 influenza virus vaccine, unspecified formulation Darien GAIL [facility] 02-03-2014 influenza virus vaccine, unspecified formulation Darien GAIL [facility] 01-25-2009 influenza, whole Darien BASSO K [facility] Payers Date Payer Category Payer Unknown [id number] 2017 Unknown 2017 Medicare [id number] 2000 Medicare MEDICARE MEDICAR E PART A & B [id number] 2000-Present [phone] [address] [place] [address] [id number] 1959 Medicare [id number] 1959 Self-pay 1959 Unknown [id number] 1935 Unknown [id number] 2.16.840.1.684378.3.579.2.593 1935 Unknown [id number] 2.16.840.1.179583.3.579.2.593 1935 Unknown [id number] 2.16.840.1.762854.3.579.2.593 1935 Unknown [id number] 2.16.840.1.246357.3.579.2.593 1935 Unknown [id number] 2.16.840.1.708003.3.579.2.593 1935 Unknown [id number] 2.16.840.1.453050.3.579.2.593 1935 Unknown [id number] 2.16.840.1.425536.3.579.2.593 1935 Unknown [id number] 2.16.840.1.493066.3.579.2.593 1935 Unknown [id number] 2.16.840.1.825383.3.579.2.593 1935 Unknown [id number] 2.16.840.1.252001.3.579.2.593 1935 Unknown [id number] 2.16.840.1.628101.3.579.2.593 1935 Unknown [id number] 2.16.840.1.963698.3.579.2.593 1935 Unknown [id number] 2.16.840.1.286969.3.579.2.593 1935 Unknown [id number] 2.16.840.1.321970.3.579.2.593 1935 Unknown [id number] 2.16.840.1.702732.3.579.2.593 1935 Unknown [id number] 2.16.840.1.398036.3.579.2.593 1935 Unknown [id number] 2.16.840.1.399755.3.579.2.727 1935 Unknown [id number] 2.16.840.1.493285.3.579.2.727 1935 Unknown [id number] 2.16.840.1.027585.3.579.2.727 Unknown [id number] 2.16.8 40.1.241585.19 Unknown [id number] 2.16.840.1.739051.3.579.2.593 Unknown [id number] 2.16.840.1.521178.3.579.2.593 Social History Date Type Detail Facility Start: 05-18-2020 End: 11-13-2023 Sex Assigned At [facility] [employer] [facility] Other Start: 11-27-2021 End: 06-11-2022 Tobacco smoking status Never smoked tobacco (finding) [facility] Tobacco smoking status Never [facility] Start: 11-13-2023 End: 08-03-2024 Tobacco smoking status NHIS Ex-smoker [facility] End: 08-01-1947 History of tobacco use Current smoker [facility] End: 08-01-1947 History of tobacco use Cigarette Smoker [facility] Start: 11-13-2023 Tobacco use and exposure Smokeless tobacco non-user [employer] Start: 11-13-2023 Alcoholic beverage intake Current drinker of alcohol (finding) [employer] Start: 05-18-2020 End: 11-13-2023 Alcoholic beverage intake [facility] Start: 07-29-2017 Alcohol Comment 1 daily [employer] Start: 1935 Sex assigned at Not on file P [employer] [facility] Start: 08-03-2024 Sex Male (finding) [facility] Start: 1935 Sex Assigned At Male F [facility] Medical Equipment Procedure Code Equipment Code Equipment Origin al Text Equipment Identifier Dates Kit Iol +18.5 D Cnvxpln Klmn Rpl [id number] - [id number] - [id number] Start: 07-31-2017 Functional Status Date Assessment Result Facility 11-27-2021 Functional Status N/A [facility] [employer] Clinical Notes 12-27-2020 to 07-13-2024 Note Date & Type Note Facility 07-13-2024 Note AR Electrophysiology Consult Note AR Cardiology [facility] Reason for visit: HPI: Mason [...] Insecurity: No Food Insecurity (11/13/2023) [facility] Hun[facility] Screening Within the past 12 months [...] thoracic deformity Au (more content not included)... [facility] 05-11-2024 Evaluation note Diagnosis Onset Date Resolution BPH loc w urin obs/LUTS acute F ebruary 2024 9:31am Chronic kidney disease, stage 3b acute May 11 9:31am Hyperkalemia acute May 9:31am Hypertensive nephropathy acute May 11 9:31am Vitamin D deficiency acute Febr uary 2024 9:31am Anemia of renal disease acute A pril 2024 3:36pm BPH loc w urin obs/LUTS acute A pril 2024 3:36pm Chronic kidney disease, stage 3b acute August 03, 2024 3:36pm Hyperkalemia acute August 03, 2024 3:36pm Hypertensive nephropathy acute August 03, 2024 3:36pm Vitamin D deficiency acute Apri l 2024 3:36pm [facility] Work Phone: 1(282) 879-923401-24-2025 NoteCardiology Follow Up Progress Note HPI: Mason Natarajan [...] -Aggressive risk factor modific (more content not included)...[facility]09-30-2024 NoteCardiology Follow Up Progress Note Chief Complaint: Follow [...] precautions were provided. P (more content not included)...[facility] 11-13-2023 Evaluation + Plan note* Assessment & Plan Note - Linda Montelongo MD - 11/13/2023 9:37 AM EDTAssociated Problem(s): Bilateral carotid artery stenosis without cerebral infarction We will start him on aspirin Plavix and statin. I discussed with him risk factors modification and close surveillance.Will get an ultrasound in a year. [facility] [employer] [id number] Miscellaneous Notes* Assessment & Plan Note - Linda Montelongo MD - 11/13/2023 9:37 AM EDTAssociated Problem(s): Bilateral carotid artery stenosis without cerebral infarction We will start him on aspirin Plavix and statin. I discussed with him risk factors modification and close surveillance.Will get an ultrasound in a year. [facility] History of Present illness Narrative* Linda Montelongo MD - 11/13/2023 9:20 AM EDT Images from the original note were not [...] mouth in the morning and 1 tablet beforebedtime. hydrALAZINE (APRESOLINE) 100 mg tablet Take 1 [...] mg total) by mouth in the morning. mfnieumv-jdllygzp-ervwwqt fum (MULTI VITAMIN) 9 mg iron/15 mL [...] Date Cataract Diabetes mellitus type 2, controlled ([facility]) Hypertension Hypothyroidism Injury of back 1985 back surgery Visual impairment glasses Past Surgical History: Past Surgical History: Procedure Laterality Date APPENDECTOMY BACK SURGERY CATARACT EXTRACTION IMPLANT SECONDARY LENS Left 07/31/2017 Performed by Orly Mares MD at [facility] SHOULDER SURGERY left rotator cuff TONSILLECTOMY [...] Interpersonal Safety: Unknown (05/29/2023) Received from [facility] Fear of Current or [...] CUFF SIZE: M (9-13 inches)) Pulse 64 Ht172.7 cm (5' 8 ) Wt 82.6 kg [...] of unspecified carotid artery - [facility] - KOFFI Perea MD, MC, RPVI, FSVS, FACS [facility] This note was created with the assistance of a speech recognition program. While intending to generate a timely document that accurately reflects the content of the visit, no guarantee can be provided that every grammatical or spelling mistake has been or will be identified or corrected. Thank you for your understanding. documented in this encounterWooster [facility]08-22-2023 Evaluation note* Encounter Date Diagnosis Assessment Notes Treatment Notes Treatment Clinical Notes Nov, Microscopic colitis (ICD-10 - K52.89) Patient to use OTC probiotic and OTC Fiber supplement to help normalize the stools. Patient to finish remaining 2 weeks of medication and call if diarrhea returns after stopping the medication. RTO in 1 year. [facility] Other 09-22-2022 Evaluation note* Encounter Date Diagnosis Assessment Notes Treatment Notes Treatment Clinical Notes Dec, Microscopic colitis (ICD-10 - K52.89) REASSURANCE PT ADVISED TO ADD FIBER SUPPLEMENT TO DIET F/U PRN [facility] Other 08-23-2022 Hospital Discharge instructions Patient Education [...] urethra. Follow these instructions at home: Take hmew-idc-rczjqca and prescription medicines only as told by [...] 03/24/2006 Document Revised: 02/16/2019 Document Reviewed: 04/28/2017 [employer] Patient Education 2020 [employer]. Follow Up Care 05/30/2021 14:56:10 With:Darien REYNOLDS MD, URL Address: [facility] [address] [place], [place] [id number]- When:6 months [facility] [id number] Evaluation note* Encounter Date Diagnosis Assessment Notes Treatment Notes Treatment Clinical Notes Dec, Microscopic colitis (ICD-10 - K52.89) Colitis home care material was printed will taper the budesonide at this time patient to finish the 9 mg taper then move to the 6 mg taper. [facility] Other Evaluation + Plan note Future Appointments Appointment Date:06/11/2022 09:30:00 AM Scheduled Provider:Darien REYNOLDS MD Location:[facility] Appointment Type:URO Office Visit [facility] Evaluation note* Diagnosis Bilateral carotid artery [...] 1998 Hospitalization History SEE ABOVE SURGICAL HX [facility] Other History general Narrative - Reported* Type [...] History A1c down- Eliaz[facility] hospi ford 05/2022 [facility] Other Hospital course Narrative No data available for this section [facility] Discharge instructions No data available for this section [facility] InstructionsNot on filedocumented in this encounter [facility] No data available for this section [facility] Summary Purpose Family History Relationship Condition Age at Onset Recorded Date/T esvin mother Malignant neoplasm of uterus Unknown father Renal failure Unknown Advance Directives Advance Directive Response Recorded Date/ Time Advance Directives No May 10, 2024 12:43pm Reason for Referral Specialty Diagnoses / Procedures Referred By Odalys t Referred To Contact Diagnoses Occlusion and stenosis of unspecified carotid artery Bilateral carotid artery stenosis without cerebral infarction Procedures Vas carotid duplex bilateral Linda Montelongo MD [address], [place] [address] Referral ID Status Reason Start Date Expiration Date V isits Requested Visits Authorized [id number] Pending Review 11/13/2023 11/12/2024 1 1 Chief Complaint and Reason for Visit Chief Complaint Admit Date Stage 3 CKD May 11, 2024 9 :31am RENAL 3 MONTHS August 03, 2024 3:3 6pm Reason for Visit Admit Date BPH loc w urin obs/LUTS May 11 9:31am Chronic kidney disease, stage 3b ua2024 9:31am Hyperkalemia May 11, 2024 9 :31am Hypertensive nephropathy May 11, 2 025 9:31am Vitamin D deficiency May 11, 2024 9:31am Anemia of renal disease August 03, 2024 3:36pm BPH loc w urin obs/LUTS August 03, 2024 3:36pm Chronic kidney disease, stage 3b July 072024 3:36pm Hyperkalemia August 03, 2024 3:3 6pm Hypertensive nephropathy August 03 3:36pm Vitamin D deficiency August 03, 2024 3: 36pm Additional Source Comments (unrecognized sect ion and content) No Status Records FoundNo Status Records FoundNo Status Records FoundNo Status Records FoundNo Status Records FoundNo Status Records Found INFORMATION SOURCE (unrecogn ized section and content) DATE CREATED AUTHOR 09/30/2017 [facility] DATE CREATED AUTHOR AUTHOR'S ORGANIZ ATION 09/30/2017 [facility] DATE CREATED AUTHOR AUTHOR'S ORGANIZ ATION 10/30/2020 [facility] DATE CREATED AUTHOR AUTHOR'S ORGANIZ ATION 08/19/2022 [facility] DATE CREATED AUTHOR AUTHOR'S ORGANIZ ATION 08/10/2023 [facility] DATE CREATED AUTHOR AUTHOR'S ORGANIZ ATION 07/19/2024 [facility] REASON FOR VISIT (unrecogniz ed section and content) Reason Comments carotid stenosis Venous duplex in [facility] Specialty Diagnoses / Procedures Referred By Contitalo t Referred To Contact Vascular Surgery Diagnoses Occlusion and stenosis of unspecified carotid artery Erin Berg MD [address] [place] [address] Linda Montelongo MD [address] [place] [id number] Referral ID Status Reason Start Date Expiration Date Visits Requested Visits Authorized [id number] Pending Review Specialty Services Required 11/04/2023 11/03/2024 1 1 Care Team (unrecognized sect ion and content) [employer] 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 Relationship Specialty Start Date End Date Erin Berg MD [address] [place] [address] PCP - General 07/31/17 Team Status: Active Member Role Status Gus Berg MD Primary Care Provider Active Team Status: Inactive Member Role Status Gus Berg MD Primary Care Provider Active Start: May 11, 2024 End: May 11, 2024 Sarbjit Tran MD Attending Provider Active Star t: May 11, 2024 End: May 11, 2024 Team Status: Active Member Role Status Gus Berg MD Primary Care Provider Active Start: July 26, 2024 Sarbjit Tran MD Attending Provider Active Star t: July 26, 2024 Team Status: Inactive Member Role Status Gus Berg MD Primary Care Provider Active Start: August 03, 2024 End: August 03, 2024 Sarbjit Tran MD Attending Provider Active Star t: August 03, 2024 End: August 03, 2024 Goals (unrecognized section and content) Goals may be documented in a n alternate section FOR RECORDS PERTAINING TO PATIENTS WHO ARE [...] BE BASED ON THE PRIMARY CLINICAL RECORDS. [facility] [employer] provides no warranty or guarantee of the accuracy or completeness of information in this document.
[2024-10-19 09:23] LABS: Alanine Aminotransferase 24 U/L (16-63); Albumin Globulin Ratio 1.3; Albumin Level 3.7 g/dL (3.4-5.0); Alkaline Phosphatase 91 U/L (46-116); Anion Gap 15.2; Aspartate Amino Transferase 16 U/L (15-37); Blood Urea Nitrogen 37.0 mg/dL (7.0-18.0); Calcium 9.2 mg/dL (8.5-10.1); Carbon Dioxide 25.5 mmol/L (21.0-32.0); Chloride 103 mmol/L (98-107); Estimated GFR (African America 50 (>=60 mL/min/1.73m^2); Estimated GFR (Non-African Ame 42 (>=60 mL/min/1.73m^2); Globulin 2.9 g/dL; Glucose 116 mg/dL (74-106); Potassium 5.7 mmol/L (3.5-5.1); Sodium 138 mmol/L (136-145); Total Protein 6.6 g/dL (6.4-8.2)
== END 2024-10-19 08:25 | disposition home or self-care (01) ==
LOC: LAB 08:27
PROVIDERS: PCP Family Medicine; Visit Provider Family Medicine
DX: R89.9 Unspecified abnormal finding in specimens from other organs, systems and tissues (principal)
CPT/HCPCS: 36415; 80053

== ENCOUNTER 2024-11-02 08:32 | Outpatient (OUT) | payer MEDICARE, OTHER, SELFPAY ==
--- OUTSIDE RECORDS SUMMARY | 2024-10-25 07:15 | XMS_ITS ---
Author Organization [facility] [place] Address [address] [place] [address] Care Team Providers Care Tar Man Name Role Phone Jose Berg Primary Care Provider [phone] REASON FOR VISIT BP CHECK Vital Signs Height 68 in 10/25/2024 Blood pressure systolic 120 mm Hg 10/26/19 25 Blood pressure diastolic 58 mm Hg 025 Encounters Encounter Location Date Provider Diagnosis [facility] [address] [place] [address] 10/25/2024 Jose Berg Essential hypertensi on I10 Assessments Encounter Date Diagnosis (ICD Code) Assessment Notes Treatment Notes Treatment Clinical Notes Section Notes 10/25/2024 Essential hypertension (ICD-10 - I10) Plan Of Treatment No Information Progress Notes * Mason RIVAS EDOB: [birth year] (89 yo M)Acc No.[id number]:10/25/2024 BP Check Patient: Mason MORRIS Provider: Trina Berg ([facility])MD :1935 A ge:89 Y S ex:Male Date:10/25/2024 Address:[address] [place] [id number] Check In:11:12 AM EST Subjective: * Chief Complaints: * 1 . BP CHECK. * HPI: G eneral: presents to the office for a bp check. 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 Modified On:07/16/2022W/U Status:confirmed M75.80 Other shoulder lesio ns, unspecified shoulder Modified On:07/16/2022 Status:confirmed R00.2 Palpitations Modified On:07/16/2022 Status:confirmed R53.1 Weakness Modified On:07/17/2022 Status:confirmed B35.1 OM (onychomycosis) Modified On:07/16/2022 Status:confirmed G56.00 Carpal tunnel syndro me Modified On:07/16/2022 Status:confirmed I10 Essential hypertensi on Modified On:07/17/2022 Status:confirmed R00.1 Bradycardia Modified On:07/16/2022 Status:confirmed M25.50 Arthralgia Modified On:07/16/2022 Status:confirmed H91.90 Hearing loss Modified On:07/16/2022 Status:confirmed Z00.00 Well adult Modified On:07/16/2022 Status:confirmed K58.9 Irritable bowel synd derick Modified On:07/17/2022 Status:confirmed R60.0 Leg edema, right Modified On:07/16/2022 Status:confirmed K42.9 Umbilical hernia Modified On:07/16/2022 Status:confirmed K52.9 Gastroenteritis Modified On:07/16/2022 Status:confirmed E66.3 Over weight Modified On:07/16/2022 Status:confirmed R60.0 Ankle edema Modified On:07/16/2022 Status:confirmed M77.30 Calcaneal spur Modified On:07/16/2022 Status:confirmed M75.40 Impingement syndrome , shoulder Modified On:07/16/2022 Status:confirmed L84 [place] of toe Modified On:07/16/2022 Status:confirmed I49.1 Premature atrial con tractions Modified On:07/16/2022 Status:confirmed 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 Modified On:07/16/2022 Status:confirmed U07.1 COVID-19 virus infec tion Modified On:07/16/2022 Status:confirmed E03.4 Atrophy of thyroid Modified On:07/16/2022 Status:confirmed M54.50 Low back pain, unspe cified Modified On:07/16/2022 Status:confirmed I67.89 Other cerebrovascula r disease Modified On:07/16/2022 Status:confirmed E11.40 Controlled type 2 di abetes mellitus with diabetic neuropathy, unspecified long-term insulin use status Modified On:06/11/2022 Status:confirmed R63.4 Weight loss observed on examination Modified On:07/17/2022 Status:confirmed D72.829 Leukocytosis, unspec ified type Modified On:07/18/2022 Status:confirmed K52.89 Other specified shubham nfective gastroenteritis and colitis Modified On:08/13/2022 Status:confirmed B35.1 Tinea unguium Modified On:09/20/2022 Status:confirmed K58.9 Irritable bowel synd derick without diarrhea Modified On:09/20/2022 Status:confirmed I44.0 Atrioventricular blo ck, first degree Modified On:09/17/2023 Status:confirmed I65.29 Occlusion and stenos is of carotid artery Modified On:11/04/2023 Status:confirmed M79.18 Gluteal pain Modified On:12/22/2023 Status:confirmed N41.9 Prostatitis Modified On:01/05/2024 Status:confirmed D50.9 Anemia, iron deficie ncy Modified On:01/14/2024 Status:confirmed K21.9 GERD (gastroesophage al reflux disease) Modified On:01/14/2024 Status:confirmed E03.9 Acquired hypothyroid ism Modified On:01/14/2024 Status:confirmed E78.00 Hypercholesteremia Modified On:01/14/2024 Status:confirmed G45.9 TIA (transient ische nehal attack) Modified On:01/14/2024 Status:confirmed G62.9 Peripheral neuropath y Modified On:06/25/2024U Status:confirmed M25.579 Ankle pain Modified On:03/31/2025W/U Status:confirmed 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 Assessment: * Assessment: 1. E ssential hypertension - I10 (Primary) Plan: * Treatment: * * Sign off status: Completed Visit Status: A RR (Check-In) true * Provider: Trina Berg ([facility])MD Date: 10/25/2024 Generated for Phuong leyva/Madhu/Carmenitting on: 11/02/2024 08:39 AM EDT History and Physical Notes * HPI (History of Present Illness) Category Sub-Category Detail Notes Category Not es General presents to the office for a bp check
--- OUTSIDE RECORDS SUMMARY | 2024-10-25 07:20 | XMS_ITS ---
Author Organization [facility] [place] Address [address] [place] [address] Care Team Providers Care Informatics Analyst Name Role Phone Jose Berg Primary Care Provider [phone] REASON FOR VISIT bp check Encounters Encounter Location Date Provider Diagnosis [facility] [address] [facility] [address] 10/25/2024 Jose Berg Plan Of Treatment No Information Progress Notes * Mason RIVAS EDOB: [birth year] (89 yo M)Acc No.[id number]:10/25/2024 Patient: Mason MORRIS :1935 A ge:89 Y S ex:Male Address:[address] [place] [address], [phone] * true * Date: Generated for Phuong leyva/Madhu/eTransmitting on: 0 11/02/2024 08:37 AM EDT
--- OUTSIDE RECORDS SUMMARY | 2024-11-02 04:15 | XMS_ITS ---
Author Organization [facility] in [place] Address [address] [place] [address] Care Team Providers Care Estimator Name Role Phone Jose Berg Primary Care Provider [phone] Allergies No Known Allergies REASON FOR VISIT Fall in the bathroom, Tail bone pain Medications Medication SIG (Take, Route, Frequency, Duration) Notes Start Date End Date Status Pantoprazole Sodium 40 mg TAKE 1 TABLET BY MOUTH EVERY EVENING for 90 Active oxyBUTYnin Chloride 5 MG 1 tablet Orally Once a day Active True Metrix Blood Glucose Test - use 1 strip via meter Daily for 90 days 07/15/2022 Active traMADol HCl 50 MG 1 tablet as needed Orally tid for 7 days 08/02/2024 Active tiZANidine HCl 4 MG 1 tablet Orally at bedtime for 30 days Active NIFEdipine ER 60 MG 1 tablet on an empty stomach Orally Once a day for 30 day(s) 05/04/2024 Active Liothyronine Sodium 5 mcg TAKE 2 TABLETS BY MOUTH DAILY for 90 days Active Gabapentin 100 MG 1 capsule Orally qhs for 30 days 06/25/2024 Active Levothyroxine Sodium 50 MCG 1 tablet in the morning on an empty stomach Orally Once a day for 90 days Active hydrALAZINE HCl 100 MG 1 tablet with janet d Orally Twice a day Active Cetirizine HCl 10 MG 1 tablet Orally Onc e a day 10/29/2023 Active Flomax 0.4 MG 1 capsule Orally Onc e a day for 90 days Active Ferrous Sulfate 325 (65 Fe) MG 1 tablet Orally bid for 30 days 10/14/2024 Active Docusate Sodium 100 MG 1 capsule as need ed Orally Once a day 10/29/2023 Active Diclofenac Sodium 75 MG 1 tablet as need ed Orally Twice a day for 30 days 12/22/2023 Active Blood Glucose Meter Active Aspirin Adult Low Dose 81 MG 1 tablet Or ally Once a day Active Carafate 1 GM 1 tablet on an empty stomach Orally before each meal and before bedtime for 90 days 07/17/2022 Active Social History Tobacco Use: Social History Observation Description Date Details (start date - stop date) Former Smoker 04/07/1951 - 04/07/1953 Tobacco Use/Smoking Question Answer Notes Patient is a former smoker When did you start smoking? 04/07/1951 When did you stop smoking? 04/07/1953 How long has it been since you last smoked? > 10 years Additional Findings: Tobacco Non-User Current no n-smoker AUDIT-C (Standard) Question Answer Notes Did you have a drink containing alcohol in the p ast year? No Points 0 Interpretation Negative Vital Signs Weight 163.6 lbs 11/02/2024 Height 68 in 11/02/2024 Blood pressure systolic 138 mm Hg 11/03/19 25 Blood pressure diastolic 78 mm Hg 025 BMI 24.87 kg/m2 11/02/2024 Encounters Encounter Location Date Provider Diagnosis [facility] [address] [place] [address] 11/02/2024 Jose Berg Pelvic pain R10. 2 Assessments Encounter Date Diagnosis (ICD Code) Assessment Notes Treatment Notes Treatment Clinical Notes Section Notes 11/02/2024 Pelvic pain (ICD-10 - R10.2) Plan Of Treatment Pending Test Test Name Order Date XR sacrum coccyx min 2V 11/02/2024 XR pelvis min 3V 11/02/2024 Progress Notes * Mason RIVSA EDOB: [birth year] (89 yo M)Acc No.[id number]:11/02/2024 UNLOCKED PROGRESS NOTE Progress Note Patient: Mason MORRIS Provider: Trina Berg ([facility])MD :1935 A ge:89 Y S ex:Male Date:11/02/2024 Address:[address] [place], [place] [id number] Check In:08:07 AM ESTCheck O ut:08:29 AM EST Subjective: * Chief Complaints: * 1 . Fall in the bathroom. 2. Tail bone pain. * HPI: G eneral: Palliative F ell a couople weeks ago - after 2 days some better - butnow not going away - sitting on left is better -. no pain into leg - no weakness in legs. * Medical History: O M (onychomycosis), Irritable bowel syndrome, Weakness, Over weight, Low back pain, unspecified, [place] of toe, Leg edema, right, Adhesive capsulitis of left shoulder, COVID-19 virus infection, Gastroenteritis, Ankle edema, Other shoulder lesions, unspecified shoulder, Hearing loss, Essential hypertension, Atrophy of thyroid, Well adult, Premature atrial contractions, Palpitations, Bradycardia, Carpal tunnel syndrome, Impingement syndrome, shoulder, Arthralgia, Calcaneal spur, Umbilical hernia, TMJ syndrome, Other cerebrovascular disease. * Surgical History: V asectomy 1979, Umbilical Hernia Repair 1982, Lower Back L4-L5 1984, Appendectomy 1991, Torn Macula-LEFT 1997, Cataract Removal- LEFT 1999, Rotator cuff- LEFT 2007, Elbow Right 2007, Carpal Tunnel- RIGHT 2007, Cataract removal- RIGHT 2012, Left eye- new lens 2016, Left eye- fix lens 2017, Prostate 2020. * Hospitalization/Major Diagno stic Procedure: D enies Past Hospitalization. * Family History: F ather: , diagnosed with Diabetes mellitus without mention of complication, type II or unspecified type, not stated as uncontrolled, Unspecified heart disease. M other: , Female cancers- unsure which. B andreaer(s): . S ister(s): alive, stroke, COPD. D fantasma(s): fibromyalgia. 1 brother(s) , 2 sister(s) . 2 son(s) , 4 daughter(s) . . * Social History: T obacco Use: T obacco Use/Smoking P atient is a f ormer smoker W hen did you start smoking? 0 04/07/1951 W hen did you stop smoking? 0 04/07/1953 H ow long has it been since you last smoked??> 10 years A dditional Findings: Tobacco Non-User C urrent non-smoker D rug/Alcohol: A FERMIN-C (Standard) D id you have a drink containing alcohol in the past year? N o P oints 0 I nterpretation N egative * Medications: T aking Aspirin Adult Low Dose(Aspirin) 81 MG Tablet Delayed Release 1 tablet Orally Once a day , Taking Blood Glucose Meter , Taking Carafate(Sucralfate) 1 GM Tablet 1 tablet on an empty stomach Orally before each meal and before bedtime , Taking Cetirizine HCl 10 MG Tablet 1 tablet Orally Once a day , Taking Diclofenac Sodium 75 MG Tablet Delayed Release 1 tablet as needed Orally Twice a day , Taking Docusate Sodium 100 MG Capsule 1 capsule as needed Orally Once a day , Taking Ferrous Sulfate 325 (65 Fe) MG Tablet 1 tablet Orally bid , Taking Flomax 0.4 MG Capsule 1 capsule Orally Once a day , Taking Gabapentin 100 MG Capsule 1 capsule Orally qhs , Taking hydrALAZINE HCl 100 MG Tablet 1 tablet with food Orally Twice a day , Taking Levothyroxine Sodium 50 MCG Tablet 1 tablet in the morning on an empty stomach Orally Once a day , Taking Liothyronine Sodium 5 mcg Tablet TAKE 2 TABLETS BY MOUTH DAILY , Taking NIFEdipine ER 60 MG Tablet Extended Release 24 Hour 1 tablet on an empty stomach Orally Once a day , Taking oxyBUTYnin Chloride 5 MG Tablet 1 tablet Orally Once a day , Taking Pantoprazole Sodium 40 mg Tablet Delayed Release TAKE 1 TABLET BY MOUTH EVERY EVENING , Taking tiZANidine HCl 4 MG Tablet 1 tablet Orally at bedtime , Taking traMADol HCl 50 MG Tablet 1 tablet as needed Orally tid , Taking True Metrix Blood Glucose Test(Glucose Blood) - Strip use 1 strip via meter Daily , Medication List reviewed and reconciled with the patient * Allergies: N .K.D.A. Objective: * Vitals: W t:163.6lbs, Ht: 68 in, BP:138/78mm Hg, BMI:24.87Index, Ht-cm: 172.72 cm, Wt-k.21 kg. * Examination: A bdomen Exam:: malick edge. Assessment: * Assessment: 1. P elvic pain - R10.2 (Primary) Plan: * Treatment: * Preventive Medicine: Screenings/Counseling: B OR ACTION PLAN Above Normal BMI Follow-up D ietary management education, guidance, and counseling * * Electronic signature of Jose Berg MD, [id number] on 11/02/2024 at 08:37 AM EDT Sign off status: Pending Visit Status: C HK (Check Out) * Provider: Trina Berg ([facility])MD Date: 11/02/2024 Generated for Phuong leyva/Madhu/Carmenitting on: 11/02/2024 08:37 AM EDT History and Physical Notes * HPI (History of Present Illness) Category Sub-Category Detail Notes Category Not es General Palliative Fell a couople w eeks ago - after 2 days some better - butnow not going away - sitting on left is better - no pain into leg - no weakness in legs Examination Category Sub-Category Detail Notes Category Not es Abdomen Exam: tendnernss of coccyx
--- OUTSIDE RECORDS SUMMARY | 2024-11-02 08:38 | XMS_ITS | Clinical Summary ---
Author Organization [facility] Address [address] [place] [address] Care Team Providers Care Clinical Trial Leader Name Role Phone Art Berg MD Primary Care Provider [phone] Allergies Active Allergy Reactions Criticality Noted Date [...] age to complete this topic [place] [id number] Care Teams Clinical Trial Leader Relationship Specialty Start Date End Date Art Breg MD [address] [address] PCP - General 03/26/22
--- OUTSIDE RECORDS SUMMARY | 2024-11-02 08:38 | XMS_ITS | Clinical Summary ---
Author Organization [facility] Address [address], [address] [place] [address] Care Team Providers Care Business Enterprise Officer Name Role Phone Art Berg MD Primary Care Provider [phone] Allergies Active Allergy Reactions Criticality Noted Date [...] Take 20 mg by mouth daily Active Lacona 3 1200 MG CAPS Take 1 capsule by mouth daily Active LECITHIN PO Take 400 mg by mouth daily Active Cholecalciferol (VITAMIN D3) 1000 units CAPS Take 1 capsule by mouth daily Active Saw [place], Serenoa repens, (SAW PALMETTO PO) Take 900 [...] on file Medical Devices Implanted Type Area Motion Picture Set Grip Device Identifier Shelf Expiration Date Model / Serial / Lot Impl Eye Provisc Ovd 0.55ml - [id number] Implanted:Qty: 1 on 01/15/2017 by Nissa Lindsey MD at [facility] Eye Left: Eye MARIA L-PMM 06/05/2019 [id number] / [id number] / [id number] Insurance MEDICARE Member Subscriber Plan / Payer (Ef fective 2017-Present) Name:Mason Natarajan Relation to Subscriber:Self Name:Mason Natarajan Payer ID:Not on file Group ID:Not on file Type:Not on file Address: [address] [place] [address] Care Teams Business Enterprise Officer Relationship Specialty Start Date End Date Art Berg MD [address] [place] [address] PCP - General Family Medicine 01/08/17
--- OUTSIDE RECORDS SUMMARY | 2024-11-02 08:40 | XMS_ITS | Encounter Summary ---
Author Organization [facility] Address [id number] [address] 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 Never True 11/13/2023 Within the past 12 months th e food we bought just didn't last and we didn't have money to get more. Never True 11/13/2023 Purpose - Life Answer Date Recorded Purpose and direction in life Unknown Sex and Gender Information Value Date Recorded Sex Assigned at Not on file Legal Sex Male 11:29 AM EDT Gender Identity Not on file Sexual Orientation Not on file documented as of this encounter Plan of Treatment Upcoming Encounters Date Type Department Care Team (Late Contact Info) Description 11/25/2024 9:10 AM EDT Office Visit [facility] [place] [address] [place] [address] Linda Montelongo MD [address], [address] [address] documented as of this encounter Visit Diagnoses Diagnosis Occlusion and stenosis of unspecified carotid artery Bilateral carotid artery stenosis without cerebral infarction documented in this encounter Care Teams Home Appliance Washing Machine Mechanic Relationship Specialty Start Date End Date Art Berg MD PCP - General 07/31/17 documented as of this encounter
--- OUTSIDE RECORDS SUMMARY | 2024-11-02 08:40 | XMS_ITS | Clinical Summary ---
Author Organization [employer] Address [id number] [address] [place] [address] Care Team Providers Care Insole And Outsole Splitter Name Role Phone Art Berg MD Primary Care Provider [phone] Allergies No known active allergies Medications glimepiride (AMARYL) 2 mg tablet Take 2 mg by mouth every morning before breakfast. Active lisinopril (PRINIVIL,ZESTRI L) 40 mg tablet Take 1 tablet (40 mg total) by mouth in the morning. Active levothyroxine (SYNTHROID, LEVOTHROID) 50 MCG tablet Take 1 tablet (50 mcg total) by mouth in the morning. Active multivit-mineral s-ferrous fum (MULTI VITAMIN) 9 mg iron/15 mL liquidIndication s:mineral deficiency prevention Take 500 mg by mouth. Active garlic 1 mg capsule Take 500 mg by mouth. Active logan, Zingiber officinalis, (LOGAN EXTRACT) 250 mg capsule Take 250 mg by mouth. Active lecithin 1,200 mg capsule Take 1,200 mg by mouth. Active turmeric-turmeri c root extract 450-50 mg capsule Take 50 mg by mouth. Active glucosamine-ayesha droitin 500-400 mg tablet Take 1 tablet by mouth in the morning and 1 tablet before bedtime. Active pantoprazole (PROTONIX) 40 mg EC tablet Take 1 tablet (40 mg total) by mouth every morning before breakfast. 10/06/2023 Active amLODIPine (NORVASC) 10 mg tablet Take 1 tablet (10 mg total) by mouth in the morning. Active tamsulosin (FLOMAX) 0.4 mg capsule Take 1 tablet by mouth nightly. Active hydrALAZINE (APRESOLINE) 100 mg tablet Take 1 tablet (100 mg total) by mouth in the morning and 1 tablet (100 mg total) before bedtime. Active oxybutynin (DITROPAN) 5 mg tablet Take 1 tablet (5 mg total) by mouth every morning. 11/12/2023 Active tiZANidine (ZANAFLEX) 4 mg tablet Take 1 tablet (4 mg total) by mouth every morning. Active sucralfate (CARAFATE) 1 gram tablet Take 1 tablet (1 g total) by mouth every morning. Active potassium chloride (K-TAB,KLOR-CON) 10 MEQ CR tablet Take 1 tablet (10 mEq total) by mouth in the morning and 1 tablet (10 mEq total) in the evening. Take with meals. 11/05/2023 Active cetirizine (ZyrTEC) 10 mg tablet Take 1 tablet (10 mg total) by mouth in the morning. Active docusate sodium (COLACE) 100 mg capsule Take 1 capsule (100 mg total) by mouth as needed for constipation . Active aspirin 81 mg chewable tabletIndication s:Occlusion and stenosis of unspecified carotid artery,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 30 tablet 12 11/13/2023 Active clopidogreL (PLAVIX) 75 mg tabletIndication s:Occlusion and stenosis of unspecified carotid artery,Bilateral carotid artery stenosis without cerebral infarction Take 1 tablet (75 mg total) by mouth in the morning. 30 tablet 12 11/13/2023 Active atorvastatin (LIPITOR) 40 mg tabletIndication s:Occlusion and stenosis of unspecified carotid artery,Bilateral carotid artery stenosis without cerebral infarction Take 1 tablet (40 mg total) by mouth in the morning. 30 tablet 12 11/13/2023 Active Active Problems Problem Noted Date Diagnosed Date Bilateral carotid artery jj nosis without cerebral infarction 11/13/2023 Assessment & Plan (11/13/2023 9:37 AM EDT): We will start him on aspirin Plavix and statin. I discussed with him risk factors modification and close surveillance.Will get an ultrasound in a year. Social History Tobacco Use Types Packs/Day Years Used Date Smoking Tobacco: Former Cigarettes Q uit: 08/01/1947 Smokeless Tobacco: Never Tobacco Cessation:Counseling Given: Not Answered Alcohol Use Standard Drinks/Week Comments Yes 1 [...] Sign Reading Time Taken Comments Blood Pressure 156/82 11/13/2023 9:33 AM EDT Pulse 64 11/13/2023 9:33 AM EDT Temperature 36.7 C (98.1 F) 07/31/2017 12:20 PM EDT Respiratory Rate 14 07/31/2017 12:20 PM EDT Oxygen Saturation 94% 11/13/2023 9:18 AM EDT Inhaled Oxygen Concentration - - Weight 82.6 kg (182 lb) 11/13/2023 9:18 AM EDT Height 172.7 cm (5' 8 ) 11/13/2023 9:18 AM EDT Body Mass Index 27.67 11/13/2023 9:18 AM EDT Plan of Treatment Upcoming Encounters Date Type Department Care Team (Late st Contact Info) Description 11/25/2024 9:10 AM EDT Office Visit [facility] [place] [address] [place] [address] Linda Montelongo MD [address], [address] [address] Health Maintenance Due Date Last Done Comments Depression Screening 1947 DTaP,Tdap and Td Vaccines (1 - Tdap) 1954 Fall Risk Screening 2000 COVID-19 Vaccine (2023-05 5 season) 2023 01/27/2023, 09/27/2021, 04/24/2021, Additional history exists Tobacco Screening 11/12/2024 11/13/2023 Influenza Vaccine 12/06/2024 01/27/2023, , 01/21/2022, Additional history exists Zoster (Shingles) Vaccine Completed 05/02/2023, Medical Devices Implanted Type Area Home Attendant Device Identifier Shelf Expiration Date Model / Serial / Lot Kit Iol +18.5 D Cnvxpln Klmn Rpl [id number] - [id number] - [id number] Implanted:Qty: 1 on 07/31/2017 by Orly Mares MD at [facility] Lens Left: Eye [employer] 06/04/2021 [id number] / [id number] / N/A Insurance MEDICARE [facility] [place] [id number] Care Teams Insole And Outsole Splitter Relationship Specialty Start Date End Date Art Berg MD PCP - General 07/31/17
--- OUTSIDE RECORDS SUMMARY | 2024-11-02 08:40 | XMS_ITS | Patient Health Record ---
Author Organization [facility] in [place] Address [address] [place] [address] Care Team Providers Care [employer] Applier Name Role Phone Jose Berg Primary Care Provider [phone] Lynn Conte Unavailable [phone] Allergies No Known Allergies Results Component Value Reference Range Notes CREATININE Reviewed date:11/06/2023 07:52:51 PM Interpretation: Performing Lab: Notes/Report: [facility] , Creatinine 1.50 0.70-1.30 mg/dL Estimated GFR ( Zahida 54 >=60 Estimated GFR (Non- Estelita 44 >=60 Performing Lab: see note ML - [facility] LB CT angio neck Reviewed date:11/06/2023 07:52:51 PM Interpretation: Performing Lab: Notes/Report: Source Facility: [place] [address] [place] [address] CT Scan Report Signed Patient: LILIANA NATARAJAN MR#: [id number] : 1935 Acct:[id number] Age/Sex: 88 / M ADM Date: 11/06/23 Loc: LAB Attending Dr: Erin Berg M.D. Ordering Physician: Erin Berg M.D. Date of Service: 11/06/23 Procedure(s): CT angio neck Accession Number(s): [id number] cc: Erin Berg M.D. 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 Dose reduction techniques were achieved by using automated exposure control and/or adjustment of mA and/or kV according to patient size and/or use of iterative reconstruction technique. FINDINGS: The great vessels enhance normally. No filling defects are identified within the carotid arteries. There is moderate stenosis at the origin of the right and mild at origin of the left internal carotid arteries. No abnormality of visualized council of Lanza is noted. Mild segmental stenosis at origin of the right vertebral artery is noted. Otherwise, no abnormality of the vertebral and basilar arteries is noted. No mass, mass effect or midline shift or hemorrhage in the visualized portion of brain parenchyma is noted. Mucosal thickening within the right maxillary sinus is noted. No significant soft tissue abnormality within the neck is noted. The visualized portion of the lungs is unremarkable. No suspicious bone lesion is noted. Multilevel degenerative changes of cervical spine. CT/CT angio neck IMPRESSION: Moderate stenosis at origin right internal carotid artery. Mild stenosis at origin of the left internal carotid artery. Mild segmental stenosis at origin of the right vertebral artery. Otherwise, no significant abnormality. CAROTID STENOSIS REFERENCE: MILD = <50% stenosis. MODERATE = 50-69% stenosis. SEVERE = >70% stenosis. Electronically authenticated by: SAM TA Date: 11/06/2023 10:28 Dictated By: Sam Ta M.D. Signed By: 11/06/23 1030 DD/ 1028 TD/TT: Residence Hall Director: [place] [address] CT Scan Report Signed Patient: JOLANTA NATARAJAN MR#: [id number] : 1935 Acct:[id number] Age/Sex: 88 / M ADM Date: 11/06/23 Loc: LAB Attending Dr: Linda Berg M.D. Ordering Physician: Erin Berg M.D. Date of Service: 11/06/23 Procedure(s): CT ang io neck Accession Number(s): [id number] cc: Erin Berg M.D. [place] [id number] Patient Name: LILIANA NATARAJAN MRN: [facility]:[id number] date: 1935 Sex: M Assigned Patient Location: LAB Current Patient Location: LAB Accession/Order Numb er: [id number] Exam Date: 11/06/2023 08:00 Report Date: 11/06/2023 10:28 At the request of: ERIN BERG Procedure: CT angio neck CT angio neck, 024 8:00 AM EDT INDICATION: Occlusio n And Stenosis Of Carotid Artery I65.29 COMPARISON: Prior Doppler of carotid arteries dated 11/01/2023 TECHNIQUE: Pre and postcontrast enhanced CT angiography of the neck were acquired with contrast .3 D MIP im ages were reconstructed in sagittal and coronal format at the scanner and were evaluated at the time of dictation. Dose reduction techniques were achieved by using automated exposure control and/or adjustment of mA and/or kV according to patient size and/or use of iterative reconstruc tion technique. FINDINGS: The great vessels enhance normally. No filling defects are identified within the carotid arteries . There is moderate stenosis at the origin of the right and mild at origin of th e left internal carotid arteries. No abnormality of visualized council of Lanza is noted. Mild segmental steno sis at origin of the right vertebral artery is noted. Otherwise, no abnormality of the vertebral and basilar arteries is noted. No mass, mass effect or midline shift or hemorrhage in the visualized portion of brain parenchyma is noted. Mucosal thickening within the right maxillary sinus is noted. No significant soft tissue abnormality within the neck is noted. The visualized porti on of the lungs is unremarkable. No suspicious bone lesion is noted. Multilevel degenerative changes of cervical spine. C T/CT angio neck IMPRESSION: Moderate stenosis at origin right internal carotid artery. Mild stenosis at origin of the left internal carotid artery. Mild segmental steno sis at origin of the right vertebral artery. Otherwise, no significant abnormality. CAROTID STENOSIS REFERENCE: MILD = <50% stenosis. MODERATE = 50-69% stenosis. SEVERE = >70% stenosis. Electronically authenticated by: SAM TA Date: 11/06/2023 10:28 Dictated By: Sam Ta M.D. Signed By: 11/06/23 1030 DD/ 1028 TD/TT: Residence Hall Director: PROF SABRINA Sebastian ([facility]) Reviewed date:05/03/2024 08:18:30 PM Interpretation: Performing Lab: Notes/Report: [facility] , Sodium 141 136-145 mmol/L Potassium 5.6 3.5-5.1 mmol/L Chloride 111 98-107 mmol/L Carbon Dioxide 21.6 21.0-32.0 mmol/L Anion Gap 14.0 Glucose 130 74-106 mg/dL Blood Urea Nitrogen 39.0 7.0-18.0 mg/dL Creatinine 1.56 0.70-1.30 mg/dL Estimated GFR ( Zahida 51 >=60 mL/min/1.73m 2 Estimated GFR (Non- Estelita 42 >=60 mL/min/1.73m 2 BUN Creatinine Ratio 25.0 Calcium 8.7 8.5-10.1 mg/dL Performing Lab: see note ML - [facility] LB Erythrocyte Sedimentation Ra te Reviewed date:07/22/2024 09:06:48 PM Interpretation: Performing Lab: Notes/Report: [facility] , Erythrocyte Sedimentation Rate 8 <=20 mm/hr Performing Lab: see note ML - [facility] LB MICROALB CREAT RATIO RANDOM Reviewed date:07/26/2024 02:06:54 PM Interpretation: Performing Lab: Notes/Report: [facility] , Microalbumin Urine Random <1.3 <=30.0 mg/dL Creatinine Urine Random <13.00 20.00-30 0.00 mg/dL Performing Lab: see note ML - [facility] LB URINE T PROTEIN CREAT RATIO Reviewed date:07/26/2024 02:06:54 PM Interpretation: Performing Lab: Notes/Report: [facility] , Total Protein Urine Random <6.0 <=11.9 mg/dL Performing Lab: see note ML - [facility] LB VITAMIN D 25 [place] Reviewed date:07/26/2024 02:06:54 PM Interpretation: Performing Lab: Notes/Report: [facility] , Vitamin D 76.5 <20 ng/mL Vit D deficient 20-<30 ng/mL Vit D insufficient 30-100 ng/mL Vit D sufficient >100 ng/mL Potential Toxicity Performing Lab: see note ML - [facility] LB CBC AUTO DIFF Reviewed date:10/13/2024 06:53:56 PM Interpretation: Performing Lab: Notes/Report: [facility] , White Blood Count 10.6 4.0-11.0 10 3/uL Red Blood Count 3.69 4.70-6.10 10 6/uL Hemoglobin 11.0 14.0-18.0 g/dL Hematocrit 33.0 42.0-54.0 % Mean Corpuscular Volume 89.4 80.0-94.0 fL Mean Corpuscular Hemoglobin 29.8 25.9-34.0 pg Mean Corpuscular HGB Conc 33.3 29.9-35.2 g/dL Red Cell Distribution Width 14.7 11.0-15.0 % Platelet Count 282 150-450 10 3/uL Mean Platelet Volume 10.3 9.5-13.5 fL Neutrophils Percent Auto 54.3 43.0-75.0 % Lymphocytes Percent Auto 32.9 20.5-60.0 % Monocytes Percent Auto 8.0 1.7-12.0 % Eosinophils Percent Auto 3.8 0.9-7.0 % Basophils Percent Auto 0.7 0.2-2.0 % Immature Granulocytes Pct Auto 0.3 0.0-0.5 % Neutrophils Absolute Auto 5.7 1.4-6.5 10 3/uL Lymphocytes Absolute Auto 3.5 1.2-3.8 10 3/uL Monocytes Absolute Auto 0.9 0.3-0.8 10 3/uL Eosinophils Absolute Auto 0.4 0.0-0.7 10 3/uL Basophils Absolute Auto 0.1 0.0-0.1 10 3/uL Immature Granulocytes Abs Auto 0.03 0.00-0.03 10 3/uL Performing Lab: see note ML - [facility] LB FREE T3 Reviewed date:10/13/2024 06:53:56 PM Interpretation: Performing Lab: Notes/Report: [facility] , Free T3 2.05 2.18-3.98 pg/mL Performing Lab: see note ML - [facility] LB GLYCOHEMOGLOBIN A1C Reviewed date:10/13/2024 06:53:56 PM Interpretation: Performing Lab: Notes/Report: [facility] , Glycohemoglobin A1C 6.0 4.5-6.2 % ADA RECOMMENDED LIMIT 4.0 - 6.0 ADA THERAPEUTIC TARGET < 7.0 ACTION SUGGESTED > 7.0 Estimated Average Glucose 126 Performing Lab: see note ML - [facility] LB LIPID PROFILE Reviewed date:10/13/2024 06:53:56 PM Interpretation: Performing Lab: Notes/Report: [facility] , Triglycerides 54 <=150 mg/dL Cholesterol 80 <=200 mg/dL HDL Cholesterol 47 40-60 mg/dL > or =60 mg/dl - LOW CARDIOVASCULAR RISK <40 mg/dl - HIGH CARDIOVASCULAR RISK LDL Cholesterol Calculated 22.2 <100 mg/dl OPTIMAL 100-129 mg/dl NEAR OR ABOVE OPTIMAL 130-159 mg/dl BORDERLINE HIGH 160-189 mg/dl HIGH >190 mg/dl VERY HIGH VLDL CHOLESTEROL 10.8 Chol HDL Ratio 1.7 3.3 - 4.4 LOW RISK 4.4 - 7.1 AVERAGE RISK 7.1 - 11.0 MODERATE RISK >11.0 HIGH RISK Performing Lab: see note ML - [facility] LB PROF 14(COMP METB) Reviewed date:10/13/2024 06:53:56 PM Interpretation: Performing Lab: Notes/Report: [facility] , Sodium 137 136-145 mmol/L Potassium 5.3 3.5-5.1 mmol/L Chloride 103 98-107 mmol/L Carbon Dioxide 25.4 21.0-32.0 mmol/L Anion Gap 13.9 Glucose 105 74-106 mg/dL Blood Urea Nitrogen 25.0 7.0-18.0 mg/dL Creatinine 1.41 0.70-1.30 mg/dL Estimated GFR ( Zahida 57 >=60 mL/min/1.73m 2 Estimated GFR (Non- Estelita 47 >=60 mL/min/1.73m 2 BUN Creatinine Ratio 17.7 Calcium 9.1 8.5-10.1 mg/dL Bilirubin Total 0.4 0.2-1.0 mg/dL Aspartate Amino Transferase 11 15-37 U/L Alanine Aminotransferase 21 16-63 U/L Alkaline Phosphatase 85 46-116 U/L Total Protein 6.2 6.4-8.2 g/dL Albumin Level 3.6 3.4-5.0 g/dL Globulin 2.6 Albumin Globulin Ratio 1.4 Performing Lab: see note ML - [facility] PSA SCREENING Reviewed date:10/13/2024 06:53:56 PM Interpretation: Performing Lab: Notes/Report: [facility] , Prostate Specific Antigen Scrn 0.72 <=4.00 ng/mL Performing Lab: see note ML - [facility] LB T4 Reviewed date:10/13/2024 06:53:56 PM Interpretation: Performing Lab: Notes/Report: [facility] , T4 Thyroxine 5.00 4.50-12.10 ug/dL Performing Lab: see note ML - [facility] LB TSH Reviewed date:10/13/2024 06:53:56 PM Interpretation: Performing Lab: Notes/Report: [facility] , Thyroid Stimulating Hormone 1.011 0.358-3.740 uIU/mL Performing Lab: see note ML - [facility] US renal BI Reviewed date:07/29/2024 07:03:32 PM Interpretation: Performing Lab: Notes/Report: Source Facility: [facility] [place] [address] [place] [address] Ultrasound Report Signed Patient: LILIANA NATARAJAN MR#: [id number] : 1935 Acct:[id number] Age/Sex: 89 / M ADM Date: 07/29/24 Loc: US Attending Dr: JOSE LUNDBERG Ordering Physician: JOSE LUNDBERG Date of Service: 07/29/24 Procedure(s): US renal BI Accession Number(s): [id number] cc: JOSE LUNDBERG ; Erin Berg M.D. [facility] [place] [address] Patient Name: LILIANA NATARAJAN MRN: [id number] date: 1935 Sex: M Assigned Patient Location: US Current Patient Location: US Accession/Order Number: [id number] Exam Date: 07/29/2024 13:09 Report Date: 07/29/2024 13:09 At the request of: JOSE LUNDBERG Procedure: US renal BI BILATERAL RENAL AND BLADDER ULTRASOUND CLINICAL HISTORY: Stage 3 Chronic Kidney Disease, Hypertensive Renal Disease COMPARISON: None FINDINGS: Estimation of renal size is approximately 11.1 cm on the right and 9.3 cm on the left. No contour deforming mass, shadowing stone or hydronephrosis. The urinary bladder is partially distended with a volume of ml. No shadowing stone or focal lesion. US/US renal BI IMPRESSION: No acute findings. Impression dictated by: Jeff Flores Jr., D.OSrinivasa07/29/2024 1:09 PM Dictation Location: [place] [address] Electronically authenticated by: [id number] Y Date: 07/29/2024 13:09 Dictated By: Jeff Flores M.D. Signed By: 07/29/24 1312 DD/ 1309 TD/TT: Residence Hall Director: [place] [address] Ultrasound Report Signed Patient: JOLANTA NATARAJAN MR#: [id number] : 1935 Acct:[id number] Age/Sex: 89 / M ADM Date: 07/29/24 Loc: US Attending Dr: JOSE LUNDBERG Ordering Physician: JOSE LUNDBERG Date of Service: 07/29/24 Procedure(s): US lauro al BI Accession Number(s): [id number] cc: JOSE LUNDBERG ; Erin Berg M.D. [address] [address] Patient Name: LILIANA NATARAJAN MRN: [id number] date: 1935 Sex: M Assigned Patient Location: US Current Patient Location: US Accession/Order Numb er: [id number] Exam Date: 07/29/2024 13:09 Report Date: 07/29/2024 13:09 At the request of: JOSE LUNDBERG Procedure: US renal BI BILATERAL RENAL AND BLADDER ULTRASOUND CLINICAL HISTORY: St age 3 Chronic Kidney Disease, Hypertensive Renal Disease COMPARISON: None FINDINGS: Estimation of renal size is approximately 11.1 cm on the right and 9.3 cm on the left. No contour deforming mass, shadowing stone or hydronephrosis. The urinary bladder is partially distended with a volume of ml. No shadowing stone or focal lesion. U S/US renal BI IMPRESSION: No acute findings. Impression dictated by: Jeff Flores Jr., DMoon07/29/2024 1:09 PM Dictation Location: [place] [address] Electronically authenticated by: [id number] Y Date: 07/29/2024 13:09 Dictated By: Jeff Flores M.D. Signed By: 07/29/24 1312 DD/ 1309 TD/TT: Residence Hall Director: PTH, Intact Reviewed date:07/27/2024 02:24:36 PM Interpretation: Performing Lab: Notes/Report: [facility] , PTH, Intact 37 15-65 pg/mL Performed at: - [facility] [address] [id number] Software Packager: Zenon Rosa PhD, Phone: [phone] Performing Lab: see note - [facility] LB CBC no Diff (Hemogram) Reviewed date:07/26/2024 02:06:54 PM Interpretation: Performing Lab: Notes/Report: [facility] , White Blood Count 10.5 4.0-11.0 10 3/uL Red Blood Count 4.21 4.70-6.10 10 6/uL Hemoglobin 12.4 14.0-18.0 g/dL Hematocrit 39.0 42.0-54.0 % Mean Corpuscular Volume 92.6 80.0-94.0 fL Mean Corpuscular Hemoglobin 29.5 25.9-34.0 pg Mean Corpuscular HGB Conc 31.8 29.9-35.2 g/dL Red Cell Distribution Width 16.0 11.0-15.0 % Platelet Count 244 150-450 10 3/uL Mean Platelet Volume 10.4 9.5-13.5 fL Performing Lab: see note ML - [facility] LB URIC ACID SERUM Reviewed date:07/26/2024 02:06:54 PM Interpretation: Performing Lab: Notes/Report: [facility] , Uric Acid 6.4 3.5-7.2 mg/dL Performing Lab: see note ML - [facility] LB UA RANDOM Reviewed date:07/26/2024 02:06:54 PM Interpretation: Performing Lab: Notes/Report: [facility] , Color Urine LT. YELLOW YELLOW Clarity Urine CLEAR CLEAR Specific [place] Urine <=1.005 1.005-1.025 pH Urine 5.5 5.0-9.0 Protein Urine NEGATIVE NEG/TRACE mg/dL Glucose Urine UA NEGATIVE NEGATIVE mg/dL Bilirubin Urine NEGATIVE NEGATIVE Ketones Urine NEGATIVE NEGATIVE mg/dL Blood Urine NEGATIVE NEGATIVE Nitrite Urine NEGATIVE NEGATIVE Urobilinogen Urine 0.2 0.2-1.0 EU/dL Leukocyte Esterase Urine NEGATIVE NEGATIVE Performing Lab: see note ML - [facility] LB RENAL FUNCTION PANEL Reviewed date:07/26/2024 02:06:54 PM Interpretation: Performing Lab: Notes/Report: [facility] , Sodium 143 136-145 mmol/L Potassium 4.0 3.5-5.1 mmol/L Chloride 107 98-107 mmol/L Carbon Dioxide 25.0 21.0-32.0 mmol/L Anion Gap 15.0 Glucose 141 74-106 mg/dL Blood Urea Nitrogen 29.0 7.0-18.0 mg/dL Creatinine 1.38 0.70-1.30 mg/dL Estimated GFR ( Zahida 59 >=60 mL/min/1.73m 2 Estimated GFR (Non- Estelita 49 >=60 mL/min/1.73m 2 BUN Creatinine Ratio 21.0 Calcium 9.1 8.5-10.1 mg/dL Phosphorus 3.5 2.6-4.7 mg/dL Albumin Level 3.7 3.4-5.0 g/dL Performing Lab: see note ML - [facility] LB MAGNESIUM Reviewed date:07/26/2024 02:06:54 PM Interpretation: Performing Lab: Notes/Report: [facility] , Magnesium 2.1 1.8-2.4 mg/dL Performing Lab: see note ML - [facility] LB CBC AUTO DIFF Reviewed date:07/22/2024 09:06:48 PM Interpretation: Performing Lab: Notes/Report: [facility] , White Blood Count 8.3 4.0-11.0 10 3/uL Red Blood Count 3.92 4.70-6.10 10 6/uL Hemoglobin 11.6 14.0-18.0 g/dL Hematocrit 36.2 42.0-54.0 % Mean Corpuscular Volume 92.3 80.0-94.0 fL Mean Corpuscular Hemoglobin 29.6 25.9-34.0 pg Mean Corpuscular HGB Conc 32.0 29.9-35.2 g/dL Red Cell Distribution Width 15.9 11.0-15.0 % Platelet Count 251 150-450 10 3/uL Mean Platelet Volume 10.8 9.5-13.5 fL Neutrophils Percent Auto 49.6 43.0-75.0 % Lymphocytes Percent Auto 35.9 20.5-60.0 % Monocytes Percent Auto 11.0 1.7-12.0 % Eosinophils Percent Auto 2.8 0.9-7.0 % Basophils Percent Auto 0.5 0.2-2.0 % Immature Granulocytes Pct Auto 0.2 0.0-0.5 % Neutrophils Absolute Auto 4.1 1.4-6.5 10 3/uL Lymphocytes Absolute Auto 3.0 1.2-3.8 10 3/uL Monocytes Absolute Auto 0.9 0.3-0.8 10 3/uL Eosinophils Absolute Auto 0.2 0.0-0.7 10 3/uL Basophils Absolute Auto 0.0 0.0-0.1 10 3/uL Immature Granulocytes Abs Auto 0.02 0.00-0.03 10 3/uL Performing Lab: see note ML - [facility] LB XR ankle RT min 3V Reviewed date:07/05/2024 09:32:21 PM Interpretation: Performing Lab: Notes/Report: Source Facility: [facility] [place] [address] [place] [address] XRay Report Signed Patient: LILIANA NATARAJAN MR#: [id number] : 1935 Acct:[id number] Age/Sex: 89 / M ADM Date: 07/05/24 Loc: RAD Attending Dr: Erin Berg M.D. Ordering Physician: Erin Berg M.D. Date of Service: 07/05/24 Procedure(s): XR ankle RT min 3V Accession Number(s): [id number] cc: Erin Berg M.D. [place] [id number] Patient Name: LILIANA NATARAJAN MRN: [id number] date: 1935 Sex: M Assigned Patient Location: [facility] Current Patient Location: RAD Accession/Order Number: [id number] Exam Date: 07/05/2024 18:22 Report Date: 07/05/2024 18:23 At the request of: ERIN BERG MD Procedure: XR ankle RT min 3V 3 views right ankle plain film COMPARISON: None HISTORY: Right ankle pain. ACUTE FINDINGS: None DEGENERATIVE CHANGE: Mild degenerative spurring posterior and inferior calcaneal spurring the midfoot degeneration SOFT TISSUE FINDINGS: Unremarkable JOINT EFFUSION: None POSTOP CHANGES: None BONE MINERALIZATION: Adequate benign 6 6 changes of the anterior calcaneus XR/XR ankle RT min 3V IMPRESSION: Moderate degeneration. No acute findings Impression dictated by: Abdirahman Kennedy M.D.07/05/2024 6:23 PM Dictation Location: [place] [address] Electronically authenticated by: [id number] Y Date: 07/05/2024 18:23 Dictated By: Abdirahman Kennedy D.O. Signed By: 07/05/241824 DD/ 22 TD/TT: Residence Hall Director: The [address] [address] XRay Report Signed Patient: JOLANTA NATARAJAN MR#: [id number] : 1935 Acct:[id number] Age/Sex: 89 / M ADM Date: 07/05/24 Loc: RAD Attending Dr: Linda Berg M.D. Ordering Physician: Erin Berg M.D. Date of Service: 07/05/24 Procedure(s): XR ank le RT min 3V Accession Number(s): [id number] cc: Erin Berg M.D. [facility] [place] [address] Patient Name: LILIANA NATARAJAN MRN: [id number] date: 1935 Sex: M Assigned Patient Location: [facility] Current Patient Location: RAD Accession/Order Numb er: [id number] Exam Date: 07/05/2024 18:22 Report Date: 07/05/2024 18:23 At the request of: ERIN BERG MD Procedure: XR ankle RT min 3V 3 views right ankle plain film COMPARISON: None HISTORY: Right ankle pain. ACUTE FINDINGS: None DEGENERATIVE CHANGE: Mild degenerative spurring posterior and inferior calcaneal spurring t he midfoot degeneration SOFT TISSUE FINDINGS : Unremarkable JOINT EFFUSION: None POSTOP CHANGES: None BONE MINERALIZATION: Adequate benign 6 6 changes of the anterior calcaneus X R/XR ankle RT min 3V IMPRESSION: Moderate degeneration. No acute findings Impression dictated by: Abdirahman Kennedy M.D.07/05/2024 6:23 PM Dictation Location: [place] [address] Electronically authenticated by: [id number] Y Date: 07/05/2024 18:23 Dictated By: Abdirahman Kennedy D.O. Signed By: 07/05/241824 DD/ 22 TD/TT: Residence Hall Director: PROF SABRINA Sebastian ([facility]) Reviewed date:05/08/2024 04:29:30 PM Interpretation: Performing Lab: Notes/Report: [facility] , Sodium 141 136-145 mmol/L Potassium 5.6 3.5-5.1 mmol/L Chloride 110 98-107 mmol/L Carbon Dioxide 22.4 21.0-32.0 mmol/L Anion Gap 14.2 Glucose 121 74-106 mg/dL Blood Urea Nitrogen 36.0 7.0-18.0 mg/dL Creatinine 1.78 0.70-1.30 mg/dL Estimated GFR ( Zahida 44 >=60 mL/min/1.73m 2 Estimated GFR (Non- Estelita 36 >=60 mL/min/1.73m 2 BUN Creatinine Ratio 20.2 Calcium 8.9 8.5-10.1 mg/dL Performing Lab: see note - [facility] GLYCOHEMOGLOBIN A1C Reviewed date:04/14/2024 07:13:30 PM Interpretation: Performing Lab: Notes/Report: [facility] , Glycohemoglobin A1C 5.8 4.5-6.2 % ADA RECOMMENDED LIMIT 4.0 - 6.0 ADA THERAPEUTIC TARGET < 7.0 ACTION SUGGESTED > 7.0 Estimated Average Glucose 120 Performing Lab: see note - [facility] CA echo doppler complete Reviewed date:01/17/2024 03:41:44 PM Interpretation: Performing Lab: Notes/Report: Source Facility: [place] [address] Cardiology Report Signed Patient: LILIANA NATARAJAN MR#: [id number] : 1935 Acct:[id number] Age/Sex: 88 / M ADM Date: 01/16/24 Loc: CARD Attending Dr: ARNEL KELLOGG Ordering Physician: ARNEL KELLOGG Date of Service: 01/16/24 Procedure(s): CA echo doppler complete Accession Number(s): [id number] cc: ARNEL KELLOGG; Erin Berg M.D. Patient Name: LILIANA NATARAJAN MR#: [id number] : 1935 Exam Date: 01/16/2024 Ordering Doctor: ARNEL KELLOGG M.D. ECHOCARDIOGRAM REPORT PROCEDURE: CA ECHO DOPPLER COMPLETE INDICATIONS: Left ventricular hypertrophy COMPARISON: None. DESCRIPTION: COMPLETE ECHOCARDIOGRAM Real-time transthoracic echocardiography with 2D, M-mode, spectral and color flow Doppler performed. QUALITY: Technical quality was good. LEFT VENTRICLE: Normal chamber size. Borderline hypertrophy. Normal systolic function. LV EF: Normal left ventricular ejection fraction, (>55%). DIASTOLIC: Diastolic function is indeterminate. ATRIAL SEPTUM: Visually appears intact. LEFT ATRIUM: Mild dilatation. RIGHT ATRIUM: Normal chamber size. RIGHT VENTRICLE: Normal chamber size. Normal right ventricular systolic function. TRICUSPID VALVE: Normal mobility and thickness. No stenosis with trivial regurgitation. Unable to assess right-sided pressures due to lack of measurable tricuspid regurgitation. MITRAL VALVE: Normal mobility and thickness. No evidence of mitral valve stenosis. There is no mitral annular calcification. Mild mitral regurgitation. AORTIC VALVE: Normal trileaflet appearance. Mildly calcified aortic valve. Normal leaflet mobility. No evidence of aortic valve stenosis. Trivial aortic regurgitation. AORTIC ROOT: Normal diameter and appearance. PULMONIC VALVE: Normal thickness and mobility. No stenosis. No regurgitation. PERICARDIUM: No evidence of pericardial effusion. IVC: IVC is dilated (2.5 cm) with no collapse. PLEURA: CONCLUSION: 1. Borderline left ventricular hypertrophy with normal systolic function. LVEF is 55 to 60%. 2. Normal right ventricular size and systolic function. 3. Mild mitral regurgitation. 4. No pericardial effusion. Adult Echocardiography Procedure Report Left Ventricle LVEDD (3.7 - 5.6 cm): 4.14 cm LVESD (2.2 - 4.0 cm): 2.52 cm LVIVS thickness (0.6 - 1.2 cm): 1.07 cm LVPW thickness (0.5 - 1.0 cm): 1.05 cm e': 0.09 m/s E - e': 12.27 LVOT Max Gradient: 5.18 mm[Hg] LVOT Area (cm2): 1.14 m/s Peak Velocity (LVOT): 1.14 m/s Mean Velocity (LVOT): 0.70 m/s LVOT Diameter 2.01 cm Left Atrium LA Volume Index (2D A2C): 37.24 ml/m2 Left Atrium Systolic Dimension: 3.31 cm Mitral Valve MV E to A Ratio: 0.91 Mitral Valve A-Wave Peak Velocity: 1.22 m/s Mitral Valve E-Wave Peak Velocity: 1.11 m/s Right Ventricle Aorta AO Root Diam: 3.27 cm Aortic Valve AoV Area (Peak Eliseo): 1.87 cm2, 1.87 cm2 AoV Area (VTI): 1.88 cm2, 1.88 cm2 Peak Velocity(Antegrade Flow): 1.92 m/s Peak Gradient(Antegrade Flow): 14.78 mm[Hg] Mean Velocity(Antegrade Flow): 1.28 m/s Mean Gradient(Antegrade Flow): 7.53 mm[Hg] Velocity Time Integral: 45.09 cm Tricuspid Valve Pulmonic Valve Mean Gradient: 2.40 mm[Hg] Mean Velocity: 0.72 m/s Peak Velocity: 1.16 m/s, 1.07 m/s Peak Gradient: 4.62 mm[Hg], 5.42 mm[Hg] Right Atrium Right Atrium Systolic Pressure: 44.64 ml, 44.64 ml Dictated by: Janet Giraldo M.D. on 01/16/2024 at 18:18 Approved by: Janet Giraldo M.D. on 01/16/2024 at 18:22 Dictated By: JANET GIRALDO Signed By: 01/16/241822 DD/ 21 TD/TT: Residence Hall Director: [place] [address] Cardiology Report Signed Patient: JOLANTA NATARAJAN MR#: [id number] : 1935 Acct:[id number] Age/Sex: 88 / M ADM Date: 01/16/24 Loc: CARD Attending Dr: FANI KELLOGG Ordering Physician: ARNEL KELLOGG Date of Service: 01/16/24 Procedure(s): CA ech o doppler complete Accession Number(s): [id number] cc: SHILPA KELLOGG; Erin Berg M.D. Patient Name: LILIANA NATARAJAN MR#: [id number] : 1935 Exam Date: 01/16/2024 Ordering Doctor: KARL KELLOGG M.D. ECHOCARDIOGRAM REPORT PROCEDURE: CA ECHO DOPPLER COMPLETE INDICATIONS: Left ventricular hypertrophy COMPARISON: None. DESCRIPTION: COMPLET E ECHOCARDIOGRAM Real-time transthoracic echocardiography wit h 2D, M-mode, spectral and color flow Doppler performed. QUALITY: Technical quality was good. LEFT VENTRICLE: Norm al chamber size. Borderline hypertrophy. Normal systolic function. LV EF: Normal left ventricular ejection fraction, (>55%). DIASTOLIC: Diastolic function is indeterminate. ATRIAL SEPTUM: Visua lly appears intact. LEFT ATRIUM: Mild dilatation. RIGHT ATRIUM: Normal chamber size. RIGHT VENTRICLE: Nor mal chamber size. Normal right ventricular systolic function. TRICUSPID VALVE: Nor mal mobility and thickness. No stenosis with trivial regurgitation. Unabl e to assess right-sided pressures due to lack of measurable tricuspid regurgitation. MITRAL VALVE: Normal mobility and thickness. No evidence of mitral valve stenosis. There is n o mitral annular calcification. Mild mitral regurgitation. AORTIC VALVE: Normal trileaflet appearance. Mildly calcified aortic valve. Normal leaflet mobil ity. No evidence of aortic valve stenosis. Trivial aortic regurgitation. AORTIC ROOT: Normal diameter and appearance. PULMONIC VALVE: Norm al thickness and mobility. No stenosis. No regurgitation. PERICARDIUM: No evid ence of pericardial effusion. IVC: IVC is dilated (2.5 cm) with no collapse. PLEURA: CONCLUSION: 1. Borderline left ventricular hypertrophy with normal systolic function. LVEF is 55 to 60%. 2. Normal right ventricular size and systolic function. 3. Mild mitral regurgitation. 4. No pericardial effusion. Adult Echocardiograp hy Procedure Report Left Ventricle LVEDD (3.7 - 5.6 cm) : 4.14 cm LVESD (2.2 - 4.0 cm) : 2.52 cm LVIVS thickness (0.6 - 1.2 cm): 1.07 cm LVPW thickness (0.5 - 1.0 cm): 1.05 cm e': 0.09 m/s E - e': 12.27 LVOT Max Gradient: 5 .18 mm[Hg] LVOT Area (cm2): 1.1 4 m/s Peak Velocity (LVOT) : 1.14 m/s Mean Velocity (LVOT) : 0.70 m/s LVOT Diameter 2.01 cm Left Atrium LA Volume Index (2D A2C): 37.24 ml/m2 Left Atrium Systolic Dimension: 3.31 cm Mitral Valve MV E to A Ratio: 0.91 Mitral Valve A-Wave Peak Velocity: 1.22 m/s Mitral Valve E-Wave Peak Velocity: 1.11 m/s Right Ventricle Aorta AO Root Diam: 3.27 cm Aortic Valve AoV Area (Peak Eliseo): 1.87 cm2, 1.87 cm2 AoV Area (VTI): 1.88 cm2, 1.88 cm2 Peak Velocity(Antegr pearl Flow): 1.92 m/s Peak Gradient(Antegr pearl Flow): 14.78 mm[Hg] Mean Velocity(Antegr pearl Flow): 1.28 m/s Mean Gradient(Antegr pearl Flow): 7.53 mm[Hg] Velocity Time Integr al: 45.09 cm Tricuspid Valve Pulmonic Valve Mean Gradient: 2.40 mm[Hg] Mean Velocity: 0.72 m/s Peak Velocity: 1.16 m/s, 1.07 m/s Peak Gradient: 4.62 mm[Hg], 5.42 mm[Hg] Right Atrium Right Atrium Systoli c Pressure: 44.64 ml, 44.64 ml Dictated by: Janet Giraldo M.D. on 01/16/2024 at 18:18 Approved by: Janet Giraldo M.D. on 01/16/2024 at 18:22 Dictated By: JANET GIRALOD Signed By: 01/16/241822 DD/ 21 TD/TT: Residence Hall Director: Erythrocyte Sedimentation Ra te Reviewed date:12/29/2023 02:21:36 PM Interpretation: Performing Lab: Notes/Report: [facility] , Erythrocyte Sedimentation Rate 15 <=20 mm/hr Performing Lab: see note ML - [facility] LB PROF 14(COMP METB) Reviewed date:12/29/2023 02:21:36 PM Interpretation: Performing Lab: Notes/Report: [facility] , Sodium 141 136-145 mmol/L Potassium 4.0 3.5-5.1 mmol/L Chloride 112 98-107 mmol/L Carbon Dioxide 18.6 21.0-32.0 mmol/L Anion Gap 14.4 Glucose 116 74-106 mg/dL Blood Urea Nitrogen 22.0 7.0-18.0 mg/dL Creatinine 1.19 0.70-1.30 mg/dL Estimated GFR ( Zahida >60 >=60 Estimated GFR (Non- Estelita 58 >=60 BUN Creatinine Ratio 18.5 Calcium 8.5 8.5-10.1 mg/dL Bilirubin Total 0.4 0.2-1.0 mg/dL Aspartate Amino Transferase 12 15-37 U/L Alanine Aminotransferase 21 16-63 U/L Alkaline Phosphatase 75 46-116 U/L Total Protein 5.5 6.4-8.2 g/dL Albumin Level 2.9 3.4-5.0 g/dL Globulin 2.6 Albumin Globulin Ratio 1.1 Performing Lab: see note ML - [facility] LB CBC AUTO DIFF Reviewed date:12/29/2023 02:21:36 PM Interpretation: Performing Lab: Notes/Report: [facility] , White Blood Count 18.5 4.0-11.0 10 3/uL Red Blood Count 3.33 4.70-6.10 10 6/uL Hemoglobin 9.9 14.0-18.0 g/dL Hematocrit 30.7 42.0-54.0 % Mean Corpuscular Volume 92.2 80.0-94.0 fL Mean Corpuscular Hemoglobin 29.7 25.9-34.0 pg Mean Corpuscular HGB Conc 32.2 29.9-35.2 g/dL Red Cell Distribution Width 15.1 11.0-15.0 % Platelet Count 227 150-450 10 3/uL Mean Platelet Volume 11.3 9.5-13.5 fL Neutrophils Percent Auto 71.4 43.0-75.0 % Lymphocytes Percent Auto 17.8 20.5-60.0 % Monocytes Percent Auto 8.9 1.7-12.0 % Eosinophils Percent Auto 1.2 0.9-7.0 % Basophils Percent Auto 0.3 0.2-2.0 % Immature Granulocytes Pct Auto 0.4 0.0-0.5 % Neutrophils Absolute Auto 13.2 1.4-6.5 10 3/uL Lymphocytes Absolute Auto 3.3 1.2-3.8 10 3/uL Monocytes Absolute Auto 1.6 0.3-0.8 10 3/uL Eosinophils Absolute Auto 0.2 0.0-0.7 10 3/uL Basophils Absolute Auto 0.1 0.0-0.1 10 3/uL Immature Granulocytes Abs Auto 0.07 0.00-0.03 10 3/uL Performing Lab: see note ML - [facility] LB XR chest 1V Reviewed date:12/28/2023 09:11:10 PM Interpretation: Performing Lab: Notes/Report: Source Facility: [facility] [place] [address] [place] [address] XRay Report Signed Patient: LILIANA NATARAJAN MR#: [id number] : 1935 Acct:[id number] Age/Sex: 88 / M ADM Date: 12/28/23 Loc: ER Attending Dr: Ordering Physician: Yamini Rutherford M.D. Date of Service: 12/28/23 Procedure(s): XR chest 1V Accession Number(s): [id number] cc: Erin Berg M.D.; Yamini Rutherford M.D. [place] [id number] Patient Name: LILIANA NATARAJAN MRN: [id number] date: 1935 Sex: M Assigned Patient Location: ER Current Patient Location: ED.MAIN Accession/Order Number: [id number] Exam Date: 12/28/2023 17:15 Report Date: 12/28/2023 17:45 At the request of: YAMINI RUTHERFORD Procedure: XR chest 1V EXAM: XR chest 1V HISTORY: Cough, weak COMPARISON: 01/23/2021. TECHNIQUE: AP upright chest x-ray. FINDINGS: Lungs clear without infiltrate or edema. Normal heart size and mediastinal contour for technique. No pleural effusion or pneumothorax. XR/XR chest 1V IMPRESSION: Negative chest x-ray, no acute findings. Electronically authenticated by: ANGEL CLINTON Date: 12/28/2023 17:45 Dictated By: Angel Clinton M.D. Signed By: 12/28/231746 DD/ 44 TD/TT: Residence Hall Director: [place] [address] XRay Report Signed Patient: JOLANTA NATARAJAN MR#: [id number] : 1935 Acct:[id number] Age/Sex: 88 / M ADM Date: 12/28/23 Loc: ER Attending Dr: Ordering Physician: Yamini Rutherford M.D. Date of Service: 12/28/23 Procedure(s): XR s[address] st 1V Accession Number(s): [id number] cc: Erin Berg M.D. ; Yamini Rutherford M.D. [address] [address] Patient Name: LILIANA NATARAJAN MRN: [id number] date: 1935 Sex: M Assigned Patient Location: ER Current Patient Location: ED.MAIN Accession/Order Numb er: [id number] Exam Date: 12/28/2023 17:15 Report Date: 12/28/2023 17:45 At the request of: YAMINI RUTHERFORD Procedure: XR chest 1V EXAM: XR chest 1V HISTORY: Cough, weak COMPARISON: 01/23/2021. TECHNIQUE: AP uprigh t chest x-ray. FINDINGS: Lungs elysia r without infiltrate or edema. Normal heart size and mediastinal contour for technique. No pleural effusion or pneumothorax. X R/XR chest 1V IMPRESSION: Negative chest x-ray , no acute findings. Electronically authenticated by: ANGEL CLINTON Date: 12/28/2023 17:45 Dictated By: Angel Clinton M.D. Signed By: 12/28/231746 DD/ 44 TD/TT: Residence Hall Director: SARS-CoV-2 Ag* Reviewed date:12/28/2023 09:11:10 PM Interpretation: Performing Lab: Notes/Report: [facility] , SARS-CoV-2 Ag NEGATIVE NEGATIVE This test has not been FDA cleared or approved, but has been authorized by the FDA under an Emergency Use Authorization (EUA) for use by authorized laboratories certified under CLIA that meet the requirements to perform moderate or high complexity testing. This test has been authorized only for the detection of proteins from SARS-CoV-2, not for any other viruses or pathogens. The emergency use of this test is authorized for the duration of the declaration that circumstances exist justifying the authorization of emergency use of in vitro diagnostic tests for detection and/or diagnosis of Covid-19 under section 564(b)(1) of the Act, 21 U.S.C. 360bbb-3(b)(1), unless the declaration is terminated or authorization is revoked sooner. Performing Lab: see note ML - [facility] LB Manual Differential Reviewed date:12/28/2023 09:11:10 PM Interpretation: Performing Lab: Notes/Report: [facility] , Segmented Neutrophils % Manual 87.0 43.0-75.0 Lymphocytes Percent Manual 4.0 20.5-60.0 % Monocytes Percent Manual 8.0 1.7-12.0 % Eosinophils Percent Manual 1.0 0.9-7.0 % Basophils Percent Manual 0.0 0.2-2.0 % Segmented Neut Absolute Manual 15.48 1.4-6.5 10 3/uL Lymphocytes Absolute Manual 0.71 1.20-3.80 10 3/uL Monocytes Absolute Manual 1.42 0.30-0.80 10 3/uL Eosinophils Absolute Manual 0.17 0.00-0.70 10 3/uL Basophils Abs Manual 0.00 0.00-0.10 1 0 3/uL Performing Lab: see note ML - [facility] LB UA RANDOM W or MICROSCOPIC Reviewed date:12/28/2023 09:11:10 PM Interpretation: Performing Lab: Notes/Report: [facility] , Color Urine DK. YELLOW YELLOW Clarity Urine CLEAR CLEAR Specific [place] Urine 1.025 1.005-1.025 pH Urine 5.5 5.0-9.0 Protein Urine NEGATIVE NEG/TRACE mg/dL Glucose Urine UA NEGATIVE NEGATIVE mg/dL Bilirubin Urine NEGATIVE NEGATIVE Ketones Urine NEGATIVE NEGATIVE mg/dL Blood Urine NEGATIVE NEGATIVE Nitrite Urine NEGATIVE NEGATIVE Urobilinogen Urine 0.2 0.2-1.0 EU/dL Leukocyte Esterase Urine NEGATIVE NEGATIVE WBC Urine 0-2 NONE SEEN #/HPF RBC Urine 0-2 0-2 #/HPF Bacteria Urine TRACE NONE SEEN #/HPF Mucus Urine NONE SEEN NONE SEEN Squamous Epithelial Cell Urine NONE SEEN NONE/RARE #/LPF Crystals Seen? None Seen None Seen #/HPF Cast Seen? SEEN NONE SEEN #/LPF Hyaline Casts Urine RARE Performing Lab: see note ML - [facility] LB PROF CHEM 8 (BAS METB) Reviewed date:12/28/2023 09:11:10 PM Interpretation: Performing Lab: Notes/Report: [facility] , Sodium 141 136-145 mmol/L Potassium 4.0 3.5-5.1 mmol/L Chloride 109 98-107 mmol/L Carbon Dioxide 16.0 21.0-32.0 mmol/L Anion Gap 20.0 Glucose 163 74-106 mg/dL Blood Urea Nitrogen 26.0 7.0-18.0 mg/dL Creatinine 1.46 0.70-1.30 mg/dL Estimated GFR ( Zahida 55 >=60 Estimated GFR (Non- Estelita 46 >=60 BUN Creatinine Ratio 17.8 Calcium 8.8 8.5-10.1 mg/dL Performing Lab: see note ML - [facility] LB CBC AUTO DIFF Reviewed date:12/28/2023 09:11:10 PM Interpretation: Performing Lab: Notes/Report: [facility] , White Blood Count 17.8 4.0-11.0 10 3/uL Red Blood Count 4.05 4.70-6.10 10 6/uL Hemoglobin 12.1 14.0-18.0 g/dL Hematocrit 37.1 42.0-54.0 % Mean Corpuscular Volume 91.6 80.0-94.0 fL Mean Corpuscular Hemoglobin 29.9 25.9-34.0 pg Mean Corpuscular HGB Conc 32.6 29.9-35.2 g/dL Red Cell Distribution Width 14.9 11.0-15.0 % Platelet Count 257 150-450 10 3/uL Mean Platelet Volume 10.7 9.5-13.5 fL Performing Lab: see note [facility] US carotid duplex BI Reviewed date:11/03/2023 08:31:47 PM Interpretation: Performing Lab: Notes/Report: Source Facility: [place] [address] [place] [address] Ultrasound Report Signed Patient: LILIANA NATARAJAN MR#: [id number] : 1935 Acct:[id number] Age/Sex: 88 / M ADM Date: 11/01/23 Loc: US Attending Dr: Erin Berg M.D. Ordering Physician: Erin Berg M.D. Date of Service: 11/01/23 Procedure(s): US carotid duplex BI Accession Number(s): [id number] cc: Erin Berg M.D. [place] [address] Patient Name: LILIANA NATARAJAN MRN: [id number] date: 1935 Sex: M Assigned Patient Location: US Current Patient Location: US Accession/Order Number: [id number] Exam Date: 11/01/2023 08:49 Report Date: 11/03/2023 13:22 At the request of: ERIN BERG Procedure: US carotid duplex BI EXAMINATION: US carotid duplex BI HISTORY: Weakness R53.1 COMPARISON: No relevant comparison available. TECHNIQUE: Duplex Doppler ultrasound analysis of carotid and vertebral arteries. . Bilateral carotid arterial duplex examination was performed using B-mode, color flow and spectral analysis. Carotid stenosis is reported according to validated velocity parameters, similar to NASCET criteria. FINDINGS: RIGHT CAROTID ARTERY: Marked atherosclerotic narrowing of the proximal ICA with up to 86% area reduction. Subclavian: 135.18 cm/s / 7.43 cm/s CCA: Prox: 132.86 cm/s / 12.08 cm/s Mid: 121.24 cm/s / 16.72 cm/s Distal: 128.21 cm/s / 14.40 cm/s BULB: 79.40 cm/s / 9.75 cm/s ICA: Prox: 144.47 cm/s / 20.30 cm/s Mid: 138.51 cm/s / 30.15 cm/s Distal: 128.66 cm/s / 18.32 cm/s ECA: 177.49 cm/s / 0 cm/s VERTEBRAL: 35.94 cm/s / 0 cm/s ICA/CCA ratio: 1.1 LEFT CAROTID ARTERY: Marked atherosclerotic narrowing within carotid bulb. Subclavian: 210.40 cm/s / 15.50 cm/s CCA: Prox: 133.17 cm/s / 19.13 cm/s Mid: 114.13 cm/s / 13.60 cm/s Distal: 112.16 cm/s / 15.57 cm/s BULB: 98.36 cm/s / 0 cm/s ICA: Prox: 108.22 cm/s / 15.57 cm/s Mid: 116.11 cm/s / 25.43 cm/s Distal: 82.59 cm/s / 19.52 cm/s ECA: 186.18 cm/s / 0 cm/s VERTEBRAL: 140.82 cm/s / 18.09 cm/s ICA/CCA ratio: 1.0 US/US carotid duplex BI IMPRESSION: 1. 50-69% flow stenosis within the right carotid artery. 86% area reduction secondary to marked atherosclerotic disease. 2. 50-69% flow stenosis within left carotid artery. Marked atherosclerotic disease within carotid bulb. Spectral Doppler US Thresholds Stenosis (%) PSV (cm/sec) VICA/VCCA 0-49 <150 <2.5 50-69 150-225 2.5-4.0 >70 >225 >4.0 Electronically authenticated by: DAVID ESPINAL Date: 11/03/2023 13:22 Dictated By: David Espinal M.D. Signed By: 11/03/23 1325 DD/ 1322 TD/TT: Residence Hall Director: [place] [address] Ultrasound Report Signed Patient: JOLANTA NATARAJAN MR#: [id number] : 1935 Acct:[id number] Age/Sex: 88 / M ADM Date: 11/01/23 Loc: US Attending Dr: Linda Berg M.D. Ordering Physician: Erin Berg M.D. Date of Service: 11/01/23 Procedure(s): US car otid duplex BI Accession Number(s): [id number] cc: Erin Berg M.D. [place] [address] Patient Name: LILIANA NATARAJAN MRN: [id number] date: 1935 Sex: M Assigned Patient Location: Current Patient Location: US Accession/Order Numb er: [id number] Exam Date: 11/01/2023 08:49 Report Date: 11/03/2023 13:22 At the request of: ERIN BERG Procedure: US caroti d duplex BI EXAMINATION: US nickerson tid duplex BI HISTORY: Weakness R53.1 COMPARISON: No relev ant comparison available. TECHNIQUE: Duplex Doppler ultrasound analysis of carotid and vertebral arteries. . Bilatera l carotid arterial duplex examination was performed using B-mode, color flow a nd spectral analysis. Carotid stenosis is reported according to validat ed velocity parameters, similar to NASCET criteria. FINDINGS: RIGHT CAROTID ARTERY : Marked atherosclerotic narrowing of the proximal ICA with up to 86% area reduction. Subclavian: 135.18 c m/s / 7.43 cm/s CCA: Prox: 132.86 cm /s / 12.08 cm/s Mid: 121.24 cm/s / 1 6.72 cm/s Distal: 128.21 cm/s / 14.40 cm/s BULB: 79.40 cm/s / 9 .75 cm/s ICA: Prox: 144.47 cm /s / 20.30 cm/s Mid: 138.51 cm/s / 3 0.15 cm/s Distal: 128.66 cm/s / 18.32 cm/s ECA: 177.49 cm/s / 0 cm/s VERTEBRAL: 35.94 cm/ s / 0 cm/s ICA/CCA ratio: 1.1 LEFT CAROTID ARTERY: Marked atherosclerotic narrowing within carotid bulb. Subclavian: 210.40 c m/s / 15.50 cm/s CCA: Prox: 133.17 cm /s / 19.13 cm/s Mid: 114.13 cm/s / 1 3.60 cm/s Distal: 112.16 cm/s / 15.57 cm/s BULB: 98.36 cm/s / 0 cm/s ICA: Prox: 108.22 cm /s / 15.57 cm/s Mid: 116.11 cm/s / 2 5.43 cm/s Distal: 82.59 cm/s / 19.52 cm/s ECA: 186.18 cm/s / 0 cm/s VERTEBRAL: 140.82 cm /s / 18.09 cm/s ICA/CCA ratio: 1.0 U S/US carotid duplex BI IMPRESSION: 1. 50-69% flow steno sis within the right carotid artery. 86% area reduction secondary to marked atherosclerotic disease. 2. 50-69% flow steno sis within left carotid artery. Marked atherosclerotic disease within carot id bulb. Spectral Doppler US Thresholds Stenosis (%) PSV (cm/sec) VICA/VCCA 0-49 <150 <2.5 50-69 150-225 2.5-4.0 >70 >225 >4.0 Electronically authenticated by: DAVID ESPINAL Date: 11/03/2023 13:22 Dictated By: David Espinal M.D. Signed By: 11/03/235 DD/ TD/TT: Residence Hall Director: URIC ACID SERUM Reviewed date:07/22/2024 09:06:48 PM Interpretation: Performing Lab: Notes/Report: [facility] , Uric Acid 6.3 3.5-7.2 mg/dL Performing Lab: see note ML - [facility] LB CRP Reviewed date:07/22/2024 09:06:48 PM Interpretation: Performing Lab: Notes/Report: [facility] , C Reactive Protein <0.50 <=0.50 mg/dL Performing Lab: see note - [facility] LB PROF 14(COMP METB) Reviewed date:10/19/2024 08:45:16 PM Interpretation: Performing Lab: Notes/Report: [facility] , Sodium 138 136-145 mmol/L Potassium 5.7 3.5-5.1 mmol/L Chloride 103 98-107 mmol/L Carbon Dioxide 25.5 21.0-32.0 mmol/L Anion Gap 15.2 Glucose 116 74-106 mg/dL Blood Urea Nitrogen 37.0 7.0-18.0 mg/dL Creatinine 1.58 0.70-1.30 mg/dL Estimated GFR ( Zahida 50 >=60 mL/min/1.73m 2 Estimated GFR (Non- Estelita 42 >=60 mL/min/1.73m 2 BUN Creatinine Ratio 23.4 Calcium 9.2 8.5-10.1 mg/dL Bilirubin Total 0.4 0.2-1.0 mg/dL Aspartate Amino Transferase 16 15-37 U/L Alanine Aminotransferase 24 16-63 U/L Alkaline Phosphatase 91 46-116 U/L Total Protein 6.6 6.4-8.2 g/dL Albumin Level 3.7 3.4-5.0 g/dL Globulin 2.9 Albumin Globulin Ratio 1.3 Performing Lab: see note ML - [facility] LB Reason For Referral Diagnosis 1 Occlusion and stenos is of carotid artery (I65.29) Referral Organization [facility] Referring Provider First Name Jose Referring Provider Last Name Morena Referring Provider Speciality Family Med icine Referred Provider Linda Montelongo Referred Provider Specialty Vascular Harry salena Referral Priority Routine Diagnosis 1 Gluteal pain (M79.18 ) Referral Organization [facility] Referring Provider First Name Jose Referring Provider Last Name Morena Referring Provider Speciality Family Med icine Referred Provider [facility], Physical Therap y Referred Provider Specialty Physical Med icine and Rehabilitation Referral Priority Routine Reason left hip giving out , no pain Diagnosis 1 Weakness (R53.1) Referral Organization [facility] Referring Provider First Name Lynn Referring Provider Last Name Dg Referring Provider Speciality Family Med icine Referred Provider TB, Physical Therap y Referred Provider Specialty Physical Med icine and Rehabilitation Referral Priority Routine Diagnosis 1 Arthritis of ankle, right (M19.071) Referral Organization [facility] Referring Provider First Name Jose Referring Provider Last Name Morena Referring Provider Speciality Family Truong icine Referred Provider TB, Physical Therap y Referred Provider Specialty Physical The rapist Referral Priority Routine Medications Medication SIG (Take, Route, Frequency, Duration) Notes Start Date End Date Status Ferrous Sulfate 325 (65 Fe) MG 1 tablet Orally bid for 30 days 10/14/2024 Active True Metrix Blood Glucose Test - use 1 strip via meter Daily for 90 days 07/15/2022 Active traMADol HCl 50 MG 1 tablet as needed Orally tid for 7 days 08/02/2024 Active Blood Glucose Meter Active NIFEdipine ER 60 MG 1 tablet on an empty stomach Orally Once a day for 30 day(s) 05/04/2024 Active Aspirin Adult Low Dose 81 MG 1 tablet Or ally Once a day Active Liothyronine Sodium 5 mcg TAKE 2 TABLETS BY MOUTH DAILY for 90 days Active Cetirizine HCl 10 MG 1 tablet Orally Onc e a day 10/29/2023 Active Pantoprazole Sodium 40 mg TAKE 1 TABLET BY MOUTH EVERY EVENING for 90 Active Carafate 1 GM 1 tablet on an empty stomach Orally before each meal and before bedtime for 90 days 07/17/2022 Active oxyBUTYnin Chloride 5 MG 1 tablet Orally Once a day Active Gabapentin 100 MG 1 capsule Orally qhs for 30 days 06/25/2024 Active Flomax 0.4 MG 1 capsule Orally Onc e a day for 90 days Active Levothyroxine Sodium 50 MCG 1 tablet in the morning on an empty stomach Orally Once a day for 90 days Active hydrALAZINE HCl 100 MG 1 tablet with janet d Orally Twice a day Active Docusate Sodium 100 MG 1 capsule as need ed Orally Once a day 10/29/2023 Active Diclofenac Sodium 75 MG 1 tablet as need ed Orally Twice a day for 30 days 12/22/2023 Active tiZANidine HCl 4 MG 1 tablet Orally at bedtime for 30 days Active Immunizations Vaccine Route Administration Date Status Comme nts Arexvy Unknown 02/10/2023 Administered Social History Tobacco Use: Social History Observation [...] ast year? No Points 0 Interpretation Negative Problems Problem Type SNOMED Code ICD Code Onset Dates Problem Status W/U Status Risk Notes Problem 517155509 Atrioventricular block, first degree (I44.0) Active confirmed Problem Cerebrovascular disease (62045638) Other cerebrovascular disease (I67.89) Active confirmed Problem Noninfectious gastroenteritis (95382193) Other specified noninfective gastroenteritis and colitis (K52.89) Active confirmed Problem Irritable bowel syndrome (50257788) 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 (K58.9) Active confirmed Problem Adhesive capsulitis of left shoulder (014565324121673) 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) Active confirmed Problem Soft tissue lesion o f shoulder region (777691373) Other shoulder lesions, unspecified shoulder (M75.80) Active confirmed Problem Palpitations (37623802) Palpitations (R00.2) Active confirmed Problem Weakness (45373734) Weakness (R53.1) Active con firmed Problem Onychomycosis caused by dermatophyte (034631442) OM (onychomycosis) (B35.1) Active confirmed Problem Gastroesophageal reflux disease (383685367) GERD (gastroesophageal reflux disease) (K21.9) Active confirmed Problem Carpal tunnel syndro me (60110048) Carpal tunnel syndrome (G56.00) Active confirmed Problem Essential hypertensi on (03989696) Essential hypertension (I10) Active confirmed Problem Bradycardia (15869872) Bradycardia (R00.1) Activ e confirmed Problem Peripheral neuropath y (889089771) Peripheral neuropathy (G62.9) Active confirmed Problem Ankle pain (971363556) Ankle manny n (M25.579) Active confirmed Problem Transient ischemic attack (914455677) TIA (transient ischemic attack) (G45.9) Active confirmed Problem Arthralgia (06236310) Arthralgia (M25.50) Active confirmed Problem Hearing loss (17151978) Hearing loss (H91.90) Active confirmed Problem Well adult (670786430) Well adult (Z00.00) Activ e confirmed Problem Acquired hypothyroidism (477249764) Acquired hypothyroidism (E03.9) Active confirmed Problem Irritable bowel syndrome (87888824) Irritable bowel syndrome (K58.9) Active confirmed Problem Edema (410451041) Leg edema, rig ht (R60.0) Active confirmed Problem Tinea unguium (498950952) Tinea unguium (B35.1) Active confirmed Problem Laboratory test resu lt abnormal (503134440) Abnormal laboratory test (R89.9) Active confirmed Problem Umbilical hernia (852858825) Umbilical hernia (K42.9) Active confirmed Problem Hand pain (79526933) Hand pain (M79.643) Active confirmed Problem Gastroenteritis (90985319) Gastroenteritis (K52.9) Active confirmed Problem Overweight (516027277) Over weight (E66.3) Activ e confirmed Problem Iron deficiency anem ia (30786431) Anemia, iron deficiency (D50.9) Active confirmed Problem Prostatitis (5775833) Prostatitis (N41.9) Active confirmed Problem Ankle edema (96973312) Ankle edema (R60.0) Activ e confirmed Problem Calcaneal spur (57893902) Calcaneal spur (M77.30) Active confirmed Problem 954689899 Leukocytosis, unspecified type (D72.829) Active confirmed Problem Impingement syndrome of shoulder (934305779) Impingement syndrome, shoulder (M75.40) Active confirmed Problem Carotid artery occlusion (444074470) Occlusion and stenosis of carotid artery (I65.29) Active confirmed Problem [place] of toe (27577069) [place] of toe (L84) Active confirmed Problem Atrial premature contractions (534087045) Premature atrial contractions (I49.1) Active confirmed Problem 66001908 Weight loss observed on examination (R63.4) Active confirmed Problem Diabetic peripheral neuropathy associated with type 2 diabetes mellitus (2148117324279) Controlled type 2 diabetes mellitus with diabetic neuropathy, unspecified senior living insulin use status (E11.40) Active confirmed Problem hypercholesterolemia (disorder) (27143589) Hypercholesteremia (E78.00) Active confirmed Problem Arthralgia of temporomandibular joint (30346969) 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) Active confirmed Problem Localized, primary osteoarthritis of the ankle and/or foot (138528198) Arthritis of ankle, right (M19.071) Active confirmed Problem Muscle pain (84667716) Gluteal p ain (M79.18) Active confirmed Problem Disease caused by Severe acute respiratory syndrome coronavirus 2 (disorder) (340094071) COVID-19 virus infection (U07.1) Active confirmed Problem Atrophy of thyroid - acquired (550419542) Atrophy of thyroid (E03.4) Active confirmed Problem Low back pain (711817326) Low back pain, unspecified (M54.50) Active confirmed Vital Signs Blood pressure diastolic 78 mm Hg 11/02/2024 Height 68 in 11/02/2024 Blood pressure systolic 138 mm Hg 11/02/2024 Weight 163.6 lbs 11/02/2024 BMI 24.87 kg/m2 11/02/2024 Encounters Encounter Location Date Provider Diagnosis [address] [address] 12/22/2023 Jose Hoy Gluteal pain M79.[address] [address] 01/05/2024 Jose Hoy Weakness R53.1 ; Essential hypertension I10 and Prostatitis N41.[address] [address] 02/25/2024 Jose Hoy Essential hypertensi on I10 ; Controlled type 2 diabetes mellitus with diabetic neuropathy, unspecified senior living insulin use status E11.40 ; Prostatitis N41.9 ; Acquired hypothyroidism E03.9 and GERD (gastroesophageal reflux disease) K21.[address] [address] 02/03/2024 Lynn Dg Weakness R53.[address] [address] 09/27/2024 Jose Hoy Essential hypertensi on I10 ; Irritable bowel syndrome K58.9 ; Low back pain, unspecified M54.50 and Controlled type 2 diabetes mellitus with diabetic neuropathy, unspecified senior living insulin use status E11.40 [facility] [address] [place] [facility] [place] [address] 06/25/2024 Jose Hoy Peripheral neuropath y G62.9 [facility] [address] [place] [facility] [place] [address] 07/05/2024 Jose Hoy Ankle pain M25.579 [facility] [address] [place] [facility] [place] [address] 08/23/2024 Jose Hoy Hand pain, right M79.641 [facility] [address] [place] [facility] [place] [address] 10/25/2024 Jose Hoy Essential hypertensi on I10 [facility] [address] [place] [facility] [place] [address] 11/02/2024 Jose Hoy Pelvic pain R10.2 [facility] [address] [place] [place] [address] 11/03/2023 Jose Hoy Occlusion and stenos is of carotid artery I65.29 [facility] [address] [place] [facility] [place] [address] 11/05/2023 Jose Hoy [facility] [address] [place] [place] [address] 11/05/2023 Jose Hoy Encounter for other preprocedural examination Z01.818 [facility] [address] [place] [facility] [place] [address] 11/06/2023 Jose Hoy [facility] [address] [place] [facility] [place] [address] 11/12/2023 Jose Hoy [facility] [address] [place] [facility] [place] [address] 12/05/2023 Jose Hoy [facility] [address] [place] [facility] [address] 12/23/2023 Jose Hoy Gluteal pain M79.18 [facility] [address] [place] [facility] [place] [address] 12/29/2023 Jose Pierrey [facility] [address] [place] [address] 04/08/2024 Jose Pierrey [facility] [address] [facility] [address] 05/03/2024 Jose Pierrey Essential hypertensi on I10 [facility] [address] [facility] [address] 05/08/2024 Jose Pierrey [facility] [address] [facility] [place] [address] 06/14/2024 Jose Berg [facility] [address] [facility] [place] [address] 07/02/2024 Jose Berg [facility] [address] [facility] [place] [address] 07/05/2024 Jose Hoy Arthritis of ankle, right M19.071 [facility] [address] [facility] [place] [address] 07/22/2024 Jose Hoy Great toe pain M79.6 76 [facility] [address] [facility] [place] [address] 07/22/2024 Jose Ignacioy [facility] [address] [facility] [place] [address] 07/22/2024 Jose Berg [facility] [address] [facility] [place] [address] 07/29/2024 Jose Berg [facility] [address] [facility] [place] [address] 07/30/2024 Jose Berg [facility] [address] [facility] [place] [address] 09/02/2024 Jose Hoy Peripheral neuropath y G62.9 [facility] [address] [facility] [place] [address] 09/29/2024 Jose Hoy Peripheral neuropath y G62.9 [facility] [address] [facility] [place] [address] 10/04/2024 Jose Morena [facility] [address] [place] [address] 10/13/2024 Jose Morena Abnormal laboratory test R89.9 [facility] [address] [place] [address] 10/19/2024 Jose Berg [facility] [address] [place] [address] 10/25/2024 Jose Berg [facility] [address] [place] [facility] [place] [address] 10/25/2024 Jose Berg Assessments Encounter Date Diagnosis (ICD Code) Assessment Notes Treatment Notes Treatment Clinical Notes Section Notes 12/22/2023 Gluteal pain (ICD-10 - M79.18) 01/05/2024 Weakness (ICD-10 - R53.1) 01/05/2024 Essential hypertension (ICD-10 - I10) getting heart ultrasound 02/25/2024 Controlled type 2 diabetes mellitus with diabetic neuropathy, unspecified senior living insulin use status (ICD-10 - E11.40) 02/03/2024 Weakness (ICD-10 - R53.1) left hip has felt like giving out several times no pain recent fall thinks due to hip PT referral 09/27/2024 Essential hypertension (ICD-10 - I10) 09/27/2024 Irritable bowel syndrome (ICD-10 - K58.9) 06/25/2024 Peripheral neuropathy (ICD-10 - G62.9) 07/05/2024 Ankle pain (ICD-10 - M25.579) 08/23/2024 Hand pain, right (ICD-10 - M79.641) 10/25/2024 Essential hypertension (ICD-10 - I10) 11/02/2024 Pelvic pain (ICD-10 - R10.2) 11/03/2023 Occlusion and stenosis of carotid artery (ICD-10 - I65.29) 11/05/2023 Encounter for other preprocedural examination (ICD-10 - Z01.818) 12/23/2023 Gluteal pain (ICD-10 - M79.18) 05/03/2024 Essential hypertension (ICD-10 - I10) 07/05/2024 Arthritis of ankle, right (ICD-10 - M19.071) 07/22/2024 Great toe pain (ICD-10 - M79.676) 09/02/2024 Peripheral neuropathy (ICD-10 - G62.9) 09/29/2024 Peripheral neuropathy (ICD-10 - G62.9) 10/13/2024 Abnormal laboratory test (ICD-10 - R89.9) 02/25/2024 Essential hypertension (ICD-10 - I10) 02/25/2024 Prostatitis (ICD-10 - N41.9) 09/27/2024 Low back pain, unspecified (ICD-10 - M54.50) 01/05/2024 Prostatitis (ICD-10 - N41.9) finishing up ab 09/27/2024 Controlled type 2 diabetes mellitus with diabetic neuropathy, unspecified senior living insulin use status (ICD-10 - E11.40) 02/25/2024 Acquired hypothyroidism (ICD-10 - E03.9) 02/25/2024 GERD (gastroesophageal reflux disease) (ICD-10 - K21.9) 02/03/2024 Other PT referral Plan Of Treatment Pending Test Test Name Order Date CMP (COMPLETE METABOLIC PANEL) 4 CMP (COMPLETE METABOLIC PANEL) 3 HEMOGLOBIN A1C (GLYCO) 08/12/2023 HEMOGLOBIN A1C (GLYCO) 09/27/2024 LIPID PANEL (CHOL/TRIG/HDL/LDL) 08/12/19 24 LIPID PANEL (CHOL/TRIG/HDL/LDL) 09/28/19 25 CBC WITH DIFF 08/12/2023 PSA, PROSTATE-SPECIFIC ANTIGEN 4 BMP w/GFR 05/03/2024 CREATININE 11/05/2023 COMPREHENSIVE METABOLIC PROFILE WITH GFR 10/13/2024 CBC W/AUTO DIFF 07/22/2024 SED RATE WESTERGREN 07/22/2024 CTA NECK WO W CON 11/03/2023 US CAROTID ART JUNIOR 10/29/2023 XR ANKLE RT MIN 3 VIEWS 07/05/2024 THYROID PANEL (T4/TSH/FREE T3) 5 THYROID PANEL (T4/TSH/FREE T3) 4 PSA, SCREENING 09/27/2024 XR sacrum coccyx min 2V 11/02/2024 XR pelvis min 3V 11/02/2024 CMP (COMP MET CARRILLO) w/eGFR CKD-EPI 2024 CBC WITH DIFF 09/27/2024 Insurance Providers Payer Name Payer Address Payer Phone Subscriber Number Group Number Insured Name Patient Relationship to Insured Coverage Start Date Coverage End Date [place] [address] [place] [address] [id number] Liliana Natarajan Self - patient is the insured [address] [id number] PLAN G Liliana Natarajan Self - patient is the insured 9 Medical (General) History Medical History History ICD Code OM (onychomycosis) B35.1 Irritable bowel syndrome K58.9 Weakness R53.1 Over weight E66.3 Low back pain, unspecified M54.50 [place] of toe L84 Leg edema, right R60.0 Adhesive capsulitis of left shoulder M75 .02 COVID-19 virus infection U07.1 Gastroenteritis K52.9 Ankle edema R60.0 Other shoulder lesions, unspecified shou lder M75.80 Hearing loss H91.90 Essential hypertension I10 Atrophy of thyroid E03.4 Well adult Z00.00 Premature atrial contractions I49.1 Palpitations R00.2 Bradycardia R00.1 Carpal tunnel syndrome G56.00 Impingement syndrome, shoulder M75.40 Arthralgia M25.50 Calcaneal spur M77.30 Umbilical hernia K42.9 TMJ syndrome M26.629 Other cerebrovascular disease I67.89 Surgical History Surgery Date(Month/Year) Prostate 2020 Left eye- fix lens 2018 Left eye- new lens 2017 Cataract removal- RIGHT 2013 Carpal Tunnel- RIGHT 2008 Elbow Right 2008 Rotator cuff- LEFT 2008 Cataract Removal- LEFT 1999 Torn Macula-LEFT 1997 Appendectomy 1992 Lower Back L4-L5 1985 Umbilical Hernia Repair 1982 Vasectomy 1979
--- NOTE | 2024-11-02 08:41 | XR_ITS ---
[facility] [place] [id number] Patient Name: LILIANA BENITO MRN: [id number] date: 1935 Sex: M Assigned Patient Location: [facility] Current Patient Location: [facility] Accession/Order Number: [id number] Exam Date: 11/02/2024 09:28 Report Date: 11/02/2024 09:36 At the request of: ERIN ZHANG MD Procedure: XR pelvis 1-2V CLINICAL HISTORY: Tailbone pain. History of fall in the shower couple weeks ago. SACRUM AND COCCYX -3 views COMPARISON: CT 07/19/2022 Lateral as well as AP views in upward and downward projection were obtained. An acute, mildly displaced fracture is visualized near the sacrococcygeal junction with slight displacement. A second fracture along the ventral cortex just inferior to it is also possible. Mild degenerative changes are visualized at the lower imaged lumbar spine. The SI joints and sacral foramen appear intact. No soft tissue abnormalities are seen. XR/XR pelvis 1-2V IMPRESSION: LOWER SACRAL FRACTURE(S) AP PELVIS: COMPARISON: None No acute fracture, dislocation or bony destruction is seen. The hip joint spaces are symmetric. There is no significant hypertrophy. The SI joints are intact and show mild sclerosis. Degenerative changes are visualized at the lower imaged lumbar spine with disc space narrowing and endplate spurring. There are no soft tissue abnormalities. IMPRESSION: NO ACUTE BONY FINDINGS. Impression dictated by: India Bowman M.D. 11/02/2024 9:36 AM Dictation Location: [place] [address] Electronically authenticated by: [id number] Y Date: 11/02/2024 09:36
--- NOTE | 2024-11-02 08:41 | XR_ITS ---
[facility] [place] [id number] Patient Name: LILIANA BENITO MRN: [id number] date: 1935 Sex: M Assigned Patient Location: [facility] Current Patient Location: [facility] Accession/Order Number: [id number] Exam Date: 11/02/2024 09:28 Report Date: 11/02/2024 09:36 At the request of: ERIN ZHANG MD Procedure: XR pelvis 1-2V CLINICAL HISTORY: Tailbone pain. History of fall in the shower couple weeks ago. SACRUM AND COCCYX -3 views COMPARISON: CT 07/19/2022 Lateral as well as AP views in upward and downward projection were obtained. An acute, mildly displaced fracture is visualized near the sacrococcygeal junction with slight displacement. A second fracture along the ventral cortex just inferior to it is also possible. Mild degenerative changes are visualized at the lower imaged lumbar spine. The SI joints and sacral foramen appear intact. No soft tissue abnormalities are seen. XR/XR sacrum coccyx min 2V IMPRESSION: LOWER SACRAL FRACTURE(S) AP PELVIS: COMPARISON: None No acute fracture, dislocation or bony destruction is seen. The hip joint spaces are symmetric. There is no significant hypertrophy. The SI joints are intact and show mild sclerosis. Degenerative changes are visualized at the lower imaged lumbar spine with disc space narrowing and endplate spurring. There are no soft tissue abnormalities. IMPRESSION: NO ACUTE BONY FINDINGS. Impression dictated by: India Bowman M.D. 11/02/2024 9:36 AM Dictation Location: [place] [address] Electronically authenticated by: [id number] Y Date: 11/02/2024 09:36
== END 2024-11-02 08:33 | disposition home or self-care (01) ==
LOC: RAD 08:36
PROVIDERS: PCP Family Medicine; Visit Provider Family Medicine
DX: R10.2 Pelvic and perineal pain (principal); S32.19XA Other fracture of sacrum, initial encounter for closed fracture
CPT/HCPCS: 72170; 72220

== ENCOUNTER 2025-01-05 10:36 | Outpatient (OUT) | payer MEDICARE, OTHER, SELFPAY ==
[2025-01-05 11:33] LABS: Anion Gap 14.9; Blood Urea Nitrogen 27.0 mg/dL (7.0-18.0); Calcium 9.0 mg/dL (8.5-10.1); Carbon Dioxide 24.0 mmol/L (21.0-32.0); Chloride 105 mmol/L (98-107); Estimated GFR (African America >60 (>=60 mL/min/1.73m^2); Estimated GFR (Non-African Ame 52 (>=60 mL/min/1.73m^2); Glucose 105 mg/dL (74-106); NT Pro B Type Natriuretic Pept 188.0 pg/mL (<=1800.0); Potassium 4.9 mmol/L (3.5-5.1); Sodium 139 mmol/L (136-145)
[2025-01-05 12:32] LABS: Microalbum Creatinine Ratio Ur 112.5 mg/g (0.0-29.9)
== END 2025-01-05 10:37 | disposition home or self-care (01) ==
LOC: LAB 10:39
PROVIDERS: PCP Family Medicine; Visit Provider Internal Medicine Cardiovascular Disease
DX: I11.9 Hypertensive heart disease without heart failure (principal)
CPT/HCPCS: 36415; 80048; 82043; 82570; 83880

== ENCOUNTER 2025-01-12 08:04 | Outpatient (OUT) | payer MEDICARE, OTHER, SELFPAY ==
--- OUTSIDE RECORDS SUMMARY | 2025-01-12 08:10 | XMS_ITS | CCD ---
Author Organization [facility] CliniSyil Care Team Providers Care Press Leader Name Role Phone CHET NESBITT Unavailable Unavailable [...] DR KHAN Consulting Unavailable HOY ., DR HKAN Primary Care Unavailable HOY ., DR KHAN [...] Unavailable Ignacioy Erin GARCIA Primary Care Provider [phone] Erin Berg MD Primary Care Provider [phone] ERIKA DOTSON Referring Unavailable HOY, ERIN M Primary Care Unavailable ERIKA DOTSON Attending Unavailable ERIN BERG Referring Unavailable HOYSABEL ChildsLAS M Primary Care Unavailable ERIKA DOTSON Attending Unavailable ERIN BERG Referring Unavailable ERIN BERG M Primary Care Unavailable CHIDI SHRESTHA Attending Unavailable CHARMAINE JENKINS Attending Unavailable ARNEL BAEZA Attending Unavailable Allergies Allergy Classification Reported Allergen(s) Allergy Type Date of Onset Reaction(s) Facility (1 source) No Known Medication Allergies; Translations: [No Known Medication Allergies] Propensity to adverse reactions (disorder) [facility] Repository (1 source) Adhesive agent; Translations: [ADHESIVE] Propensity to adverse reactions to drug (disorder) [facility] Repository Medications Current Medications Medication Drug Class(es) Dates Sig (Normalized) Sig (Original) Ascorbic Acid (2 sources) Vitamin C Start: 09-14-2020 Vitamin C Daily, Refills(s) 0 Start Date: 09/14/20 Status: Ordered aspirin 81 mg chewable tablet (6 sources) Platelet Aggregation Inhibitor, Nonsteroidal Anti-inflammatory Drug Start: 11-13-2023 aspirin 81 mg chewable tablet Indications: Occlusion and stenosis of unspecified carotid artery , 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 30 tablet 12 11/13/2023 Active atorvastatin 40 mg oral tablet (12 sources) HMG-CoA Reductase Inhibitor Start: 11-13-2023 End: 11-24-2025 take 1 tablet by mouth in the morning atorvastatin (LIPITOR) 40 mg tablet Indications: Occlusion and stenosis of unspecified carotid artery , Bilateral carotid artery stenosis without cerebral infarction Take 1 tablet (40 mg total) by mouth in the morning. 30 tablet 12 11/25/2024 Active budesonide 3 mg delayed release oral capsule (2 sources) Corticosteroid Start: 09-12-2022 Budesonide 3 MG 1capsule Orally take 3 capsules for four weeks then 2 capsules for 4 weeks then take 1 capsule for 4 weeks for 90 days Sep, Active Start: 11-09-2020 Budesonide 3 M G 2 capsules for 14 days, 1 capsules for 14 days Orally Once a day for 28 days Nov, Active cetirizine hydrochloride 10 mg oral tablet (6 sources) Histamine-1 Receptor Antagonist take 1 tablet by mouth in the morning cetirizine (ZyrTEC) 10 mg tablet Take 1 tablet (10 mg total) by mouth in the morning. Active chondroitin sulfates 400 mg / glucosamine hydrochloride 500 mg oral tablet (6 sources) take 1 tablet by mouth in the morning glucosamine-chondro itin 500-400 mg tablet Take 1 tablet by mouth in the morning and 1 tablet before bedtime. Active clopidogrel 75 mg oral tablet (8 sources) P2Y12 Platelet Inhibitor Start: 11-13-19 24 End: 11-17-19 take 1 tablet by mouth in the morning clopidogreL (PLAVIX) 75 mg tablet Indications: Occlusion and stenosis of unspecified carotid artery , Bilateral carotid artery stenosis without cerebral infarction TAKE 1 TABLET BY MOUTH IN THE MORNING 30 tablet 12 11/16/2024 Active Diclofenac 75mg Tab-DR (1 source) Start: 11-28-19 take 1 tablet by mouth twice daily Diclofenac 75mg Tab-DR 75 mg, Oral, BID Start Date: 11/27/21 Status: Ordered docusate sodium 100 mg oral capsule (6 sources) docusate sodium (COLACE) 100 mg capsule Take 1 capsule (100 mg total) by mouth as needed for constipation. Active ferrous sulfate 325 mg oral tablet (4 sources) take 1 tablet by mouth once daily at breakfast ferrous sulfate 325 (65 FE) MG tablet Take 1 tablet (325 mg total) by mouth daily with breakfast. Active Fish Oils (2 sources) Start: 09-15-19 Fish Oil Oral, Refill(s) 0 Start Date: 09/14/20 Status: Ordered furosemide 20 mg oral tablet (3 sources) Loop Diuretic Start: 11-28-19 take 1 tablet by mouth once daily furosemide 20 mg Tab 20 mg = 1 tab(s), Oral, Daily Start Date: 11/27/21 Status: Ordered take 1 tablet by anna th every twelve hours Furosemide 20 MG 1 tablet Orally twice a day Active gabapentin 100 mg oral capsule (4 sources) Anti-epileptic Agent take 1 capsule by mouth three times daily gabapentin (NEURONTIN) 100 mg capsule Take 1 capsule (100 mg total) by mouth 3 (three) times a day. Active garlic preparation 1 mg oral capsule (6 sources) Non-Standardized Food Allergenic Extract garlic 1 mg capsule Take 500 mg by mouth. Active jaye root 250 mg oral capsule (6 sources) jaye, Zingiber officinalis, (JAYE EXTRACT) 250 mg capsule Take 250 mg by mouth. Active hydrALAZINE hydrochloride 100 mg oral tablet (11 sources) Arteriolar Vasodilator Start: 06-12-19 take 1 tablet by mouth twice daily Hydralazine 100 mg tablet Active 100 MG PO Twice daily May 11, 2024 1:00am Start: 11-27-2021 take 1 tablet by anna th four times daily hydrALAZINE 50 mg Tab 50 mg = 1 tab(s), Oral, QID Start Date: 11/27/21 Status: Ordered Hyoscyamine (1 source) Hyoscyamine Acti ve lecithin 1200 mg oral capsule (6 sources) lecithin 1,200 m g capsule Take 1,200 mg by mouth. Active levothyroxine sodium 0.05 mg oral tablet (12 sources) l-Thyroxine Start: 10-26-2020 take 1 tablet by mouth once daily Levothyroxine (Synthroid) 50 mcg tablet Active 50 MCG PO Daily October 26, 2020 12:00am Start: 09-14-2020 take 1 tablet by anna th once daily levothyroxine 50 mcg (0.05 mg) Tab mcg tab(s), Oral, Daily, Refills(s) 0 Start Date: 09/14/20 Status: Ordered liothyronine sodium 0.005 mg oral tablet (6 sources) l-Triiodothyronine Start: 05-11-2024 take 1 tablet by mouth once daily Liothyronine 5 mcg tablet Active 10 MCG PO Daily May 11, 2024 1:00am take 2 tablets by mouth in the m orning liothyronine (CYTOMEL) 5 MCG tablet Take 2 tablets (10 mcg total) by mouth in the morning. Active take 1 mL intravenou sly every eight hours as needed Liothyronine Sodium 10 MCG/ML 1 mL as needed Intravenous every 8 hrs Active lisinopril 20 mg oral tablet (13 sources) Angiotensin Converting Enzyme Inhibitor Start: 08-03-2024 [...] total) by mouth in the morning. Active nnpzsosy-wxwhhjdv-uifcisq fu m (MULTI VITAMIN) 9 mg iron/15 mL liquid (6 sources) multivit-mineral s-ferrous fum (MULTI VITAMIN) 9 mg iron/15 mL liquid Indications: mineral deficiency prevention Take 500 mg by mouth Indications: treatment to prevent mineral deficiency. Active multivit-mineral s-ferrous fum (MULTI VITAMIN) 9 mg iron/15 mL liquid Indications: mineral deficiency prevention Take 500 mg by mouth. Active NIFEdipine 60 mg osmotic 24 hr extended release oral tablet (6 sources) Dihydropyridine Calcium Channel Faith Start: 08-03-2024 take 1 tablet by mouth once daily Nifedipine 60 mg tablet extended release 24hr Active 60 MG PO daily August 03, 2024 12:00am Start: 05-11-2024 End: 08-03-2024 take 1 tablet by mouth once daily Nifedipine 60 mg tablet extended release Discontinued 60 MG PO Daily May 11, 2024 1:00am August 03, 2024 3:45pm take 1 tablet by anna th every twenty-four hours in the morning NIFEdipine CC (ADALAT CC) 60 MG 24 hr tablet Take 1 tablet (60 mg total) by mouth in the morning. Active oxybutynin chloride 5 mg oral tablet (11 sources) Cholinergic Muscarinic Antagonist Start: 11-12-2023 take 1 tablet by mouth once daily in the morning oxybutynin (DITROPAN) 5 mg tablet Take 1 tablet (5 mg total) by mouth every morning. 11/12/2023 Active Start: 10-17-2021 take 1 tablet by anna th once daily oxybutynin 5 mg Tab 5 mg = 1 tab(s), Oral, Daily, # 30 tab(s), Refills(s) 11, Pharmacy: [id number], 172, cm, 06/11/22 9:50:00 EST, [...] chloride 10 meq extended release oral tablet (7 sources) Start: 11-05-2023 take 1 tablet by [...] day Active sucralfate 1000 mg oral tablet (8 sources) Aluminum Complex Start: 05-11-2024 take 1 [...] Active tamsulosin hydrochloride 0.4 mg oral capsule (12 sources) alpha-Adrenergic Faith Start: 11-27-2021 take 1 capsule by mouth twice daily tamsulosin 0.4 mg Cap 0.4 mg = 1 cap(s), Oral, BID Start Date: 11/27/21 Status: Ordered Start: 10-26-2020 take 1 capsule by mo uth once daily tamsulosin 0.4 mg Cap 0.4 mg = 1 cap(s), Oral, Daily Start Date: 06/11/22 Status: Ordered tiZANidine 4 mg oral tablet (11 sources) Central alpha-2 Adrenergic Agonist Start: 08-03-2024 take 1 tablet by mouth once daily at bedtime as needed Tizanidine 4 mg tablet Active 4 MG PO Daily at bedtime as needed August 03, 2024 12:00am Start: 11-27-2021 take 1 tablet by anna th every eight hours tiZANidine 4 mg Tab 4 mg = 1 tab(s), Oral, q8hr Start Date: 11/27/21 Status: Ordered turmeric-turmeric root extra ct 450-50 mg capsule (6 sources) turmeric-turmeri c root extract 450-50 mg capsule Take 50 mg by mouth. [place] a 84599 unt oral capsule (2 sources) Vitamin A [...] Sig (Original) amLODIPine 10 mg oral tablet (12 sources) Dihydropyridine Calcium Channel Faith Start: 10-26-2020 [...] sodium 75 mg delayed release oral tablet (7 sources) Nonsteroidal Anti-inflammatory Drug Start: 11-27-2021 End: 05-11-2024 take 1 tablet by mouth twice daily Diclofenac Sodium 75 mg tablet,delayed release (DR/EC) Discontinued 75 MG PO Twice daily May 11, 2024 1:00am May 11, 2024 10:54am glimepiride 2 mg oral tablet (10 sources) Sulfonylurea Start: 09-14-2020 End: 05-11-2024 take [...] 2024 10:42am pantoprazole 40 mg oral granules (8 sources) Proton Pump Inhibitor Start: 05-11-2024 End: [...] sources) Bradycardia, unspecified; Translations: [Bradycardia, unspecified] Onset: 2 Episodic Chronic kidney disease (6 sources) Chronic [...] Chronic Hypertension with complications and secondary hypertension (8 sources) Hypertensive chronic kidney disease with stage 1 through stage 4 chronic kidney disease, or unspecified chronic kidney disease; Translations: [Hypertensive renal disease] Onset: 3 05-11-2024 Chronic Malaise and fatigue (2 sources) Weakness; [...] Chronic Occlusion or stenosis of precerebral arteries (20 sources) Carotid artery occlusion; Translations: [Occlusion and stenosis of unspecified carotid artery] Onset: 4 11-13-2023 Chronic Osteoarthritis (1 source) Unspecified osteoarthritis, unspecified site; Translations: [UNSPECIFIED OSTEOARTHRITIS UNS SITE] Onset: 3 Chronic Other aftercare (1 source) Other exterminator (current) drug therapy; Translations: [OTH RESIDENTIAL CURRENT DRUG THERAPY] Onset: 3 Episodic Other diseases of kidney and ureters (2 sources) Disorder of kidney and ureter, unspecified; Translations: [Disorder of kidney and ureter, unspecified] Onset: 5 Episodic Other gastrointestinal disorders (5 sources) Irritable [...] Translations: [LOW BACK PAIN, UNSPECIFIED] Onset: 2 Unclassified (1 source) follow up on testing of fUS Onset: 5 Unclassified (1 source) Carotid Artery Disease Onset: 5 Past or Other Problems Problem Classification Problem [...] Test Name Value Interpretation Reference Range Facility 29on 01-05-2025 29 Addended by: CHIDI SHRESTHA on: 01/05/2025 10:26 AM Modules accepted: Orders Normal [facility] 36on 01-05-2025 36 Called patient to le t him know labs were ok per Dr. Shrestha. I also let him know I faxed results to Dr. Berg. Patient verbalized understanding. Normal [facility] Office Visiton 01-05-2025 Follow-up visit [id number] Caprice Natarajan анна E 1935 M Date Provider Department Center 01/05/2025 245-CHIDI SHRESTHA [facility] Family History Problem Relation Age of Onset No Known Problems Mother Diabetes Father Hypertension Father Family Status - Relation Status Age at Mother Father Sister Brother Level of Service:45210 OR OFFICE/OUTPATIENT ESTABLISHED MOD MDM 30 MIN Reason for Visit and Comments: Follow-up [178853] - Patient is here today for a routine 6 month follow up appointment. Patient states he feels good and is able to do what he like without any problems. Patient denies chest pain, leg swelling/pain, dizziness/lightheaded, fatigue, palpitations/racing heart. Patient state his blood pressure at home have been on the high side. Bradycardia [170204] Hypertension [324434] Cerebrovascular Accident [149] Bilateral carotid artery stenosis without cerebral infarcti [Other] Normal [facility] Erythrocyte distribution wid th Auto (RBC) [Ratio]on 07-26-2024 Erythrocyte distribution width (RBC) [Ratio] Erythrocyte distribution width [Ratio] by Automated count High 11.0-15.0 [facility] Estimated glomerular filtrat ion rate (GFR) non- Americanon 07-26-2024 GFR/1.73 sq M.predicted among non-blacks MDRD (S/P/Bld) [Vol rate/Area] Estimated glomerular filtration rate (GFR) non- Low >=60 mL/min/1.73m 2 [facility] Hematocrit Auto (Bld) [Volum e fraction]on 07-26-2024 Hematocrit (Bld) [Volume fraction] Hematocrit [Volume Fraction] of Blood by Automated count Low 42.0-54.0 [facility] Hemoglobin [Mass/volume] in Bloodon 07-26-2024 Hemoglobin (Bld) [Mass/Vol] Hemoglobin [Mass/volume] in Blood Low 14.0-18.0 [facility] Laboratory - Chemistry and C hemistry - challengeon 07-26-2024 Albumin [Mass/Vol] 3.7 g/dL 3.4-5.0 [facility] Calcium [Mass/Vol] 9.1 mg/dL 8.5-10.1 [facility] Chloride [Moles/Vol] 107 mmol/L 98-107 [facility] CO2 [Moles/Vol] 25.0 mmol/L 21.0-32.0 [facility] Creatinine [Mass/Vol] 1.38 mg/dL High 0.70-1.30 [facility] GFR/1.73 sq M.predicted MDRD (S/P/Bld) [Vol rate/Area] 59 mL/min/{1.73_m2} Low >=60 mL/min/1.73m 2 [facility] Glucose [Mass/Vol] 141 mg/dL High 74-106 [facility] Magnesium [Mass/Vol] 2.1 mg/dL 1.8-2.4 [facility] Potassium [Moles/Vol] 4.0 mmol/L 3.5-5.1 [facility] Sodium [Moles/Vol] 143 mmol/L 136-145 [facility] Urate [Mass/Vol] 6.4 mg/dL 3.5-7.2 [facility] Urea nitrogen [Mass/Vol] 29.0 mg/dL High 7.0-18.0 [facility] Urea nitrogen/Creatinin e [Mass ratio] 21.0 mg/mg [facility] Bilirubin Ql (U) Negative NEGATIVE [facility] Glucose (U) [Mass/Vol] Negative NEGATIVE [facility] Ketones Ql (U) Negative NEGATIVE [facility] pH (U) 5.5 [pH] 5.0-9.0 [facility] Specific gravity (U) [Rel density] <=1.005 Abnormal 1.005-1.025 [facility] Urobilinogen Qn (U) 0.2 {Jesus'U}/dL 0.2-1.0 [facility] Laboratory - Specimen inform ationon 07-26-2024 Appearance (U) CLEAR CLEAR [facility] Color (U) LT. YELLOW YELLOW [facility] Laboratory - Urinalysison Leukocyte esterase Test strip Ql (U) Negative NEGATIVE [facility] Nitrite Ql (U) Negative NEGATIVE [facility] Protein Ql (U) Negative NEG/TRACE [facility] Leukocytes [#/volume] correc skylar for nucleated erythrocytes in Blood by Automated counon 07-26-2024 WBC corrected for nucl RBC Auto (Bld) [#/Vol] Leukocytes [#/volume] corrected for nucleated erythrocytes in Blood by Automated coun 4.0-11.0 [facility] MCH Auto (RBC) [Entitic mass ]on 07-26-2024 MCH (RBC) [Entitic mass] MCH [Entitic mass] by Automated count 25.9-34.0 [facility] MCHC Auto (RBC) [Mass/Vol]on 07-26-2024 MCHC (RBC) [Mass/Vol] MCHC [Mass/volume] by Automated count 29.9-35.2 [facility] MCV Auto (RBC) [Entitic vol] on 07-26-2024 MCV (RBC) [Entitic vol] MCV [Entitic volume] by Automated count 80.0-94.0 [facility] Microalbumin [Mass/volume] i n Urineon 07-26-2024 Albumin DL <= 20 mg/L (U) [Mass/Vol] Microalbumin [Mass/volume] in Urine <=30.0 [facility] No Panel Informationon 07-26 25-Hydroxy Vitamin D Total 76.5 ng/mL [facility] Comment on above: <20 ng/mL Vit D defi cient20-<30 ng/mL Vit D [id number] ng/mL Vit D sufficient>100 ng/mL Potential Toxicity Parathyroid Hormone (Intact) 37 pg/mL 15-65 [facility] Comment on above: Performed at: [address] [id number] Director: Zenon Rosa PhD, Phone: [phone] Phosphorus Level 3.5 mg/dL 2.6-4.7 [facility] Urine Occult Blood Negative NEGATIVE [facility] Urine Random Creatinine <13.00 mg/dL Low 20.00-300.00 [facility] Urine Random Total Protein <6.0 mg/dL <=11.9 [facility] Platelet mean volume Auto (B ld) [Entitic vol]on 07-26-2024 Platelet mean volume (Bld) [Entitic vol] Platelet mean volume [Entitic volume] in Blood by Automated count 9.5-13.5 [facility] Platelets Auto (Bld) [#/Vol] on 07-26-2024 Platelets (Bld) [#/Vol] Platelets [#/volume] in Blood by Automated count 150-450 [facility] RBC Auto (Bld) [#/Vol]on RBC (Bld) [#/Vol] Erythrocytes [#/volu me] in Blood by Automated count Low 4.70-6.10 [facility] Serum or plasma anion gap de terminationon 07-26-2024 Anion gap [Moles/Vol] Serum or plasma anion gap determination [facility] Orders Onlyon 07-15-2024 Orders Only [id number] Caprice Natarajan 1935 M Date Provider Department Center 07/15/2024 PEDRO HUANG MARLENE [facility] Family History Problem Relation Age of Onset No Known Problems Mother Diabetes Father Hypertension Father Family Status - Relation Status Age at Mother Father Sister Brother Normal [facility] Office Visiton 07-13-2024 Follow-up visit [id number] Caprice Natarajan E 1935 M Date Provider Department Center 07/13/2024 CHARMAINE MIGUEL MARLENE [facility] Family History Problem Relation Age of Onset No Known Problems Mother Diabetes Father Hypertension Father Family Status - Relation Status Age at Mother Father Sister Brother Level of Service:28231 OR OFFICE/OUTPATIENT NEW MODERATE MDM 45 MINUTES Normal [facility] 36on 05-05-2024 36 Regarding lab result s from 05/03/2024: I spoke with Dr. Baeza regarding elevated potassium and renal function. He advised patient stop potassium, repeat labs in 5-7 days, and also see his color control operator if he has one. I then spoke with Mr. Natarajan - who said Dr. Berg already advised him to stop potassium. He also said Dr. Berg ordered repeat labs to be done in the next few days. He does not see a color control operator but agreed to a referral. I put one in and faxed it to [facility] in [place]. Patient verbalized understanding. Normal [facility] Office Visiton 04-30-2024 Follow-up visit [id number] Caprice Natarajan E 1935 M Date Provider Department Center 04/30/2024 3848-ARNEL BAEZA [facility] Family History Problem Relation Age of Onset Diabetes Father Hypertension Father Family Status - Relation Status Age at Father Level of Service:42661 OR OFFICE/OUTPATIENT ESTABLISHED MOD MDM 30 MIN Normal [facility] STOOL CULTUREon 08-18-2022 Campylobacter Culture Final report Normal [facility] Comment on above: Performed By: #### C XSTOOL #### [facility] [address] [place] [address] Dr. Deepika Terrell E coli Shiga Toxin EIA Negative Normal Negative [facility] Comment on above: Performed By: #### C XSTOOL #### [facility] [address] [place] [address] Dr. Deepika Terrell Result 1 Comment Normal [facility] Comment on above: Result Comment: No S almonella or Shigella recovered. Performed By: #### C XSTOOL #### [facility] [address] [address] [address] Deepika Terrell Result Comment: No C ampylobacter species isolated. Salmonella/Shigell a Screen Final report Normal [facility] Comment on above: Performed By: #### C XSTOOL #### [facility] [address] [place] [address] Dr. Deepika Terrell C. DIFF PCRon 08-13-2022 C. DIFFICILE PCR Negative Normal NEGATIVE [facility] Comment on above: Performed By: #### B MP #### [facility] [address] [address] [address] Deepika Terrell Consultation Noteon 08-14-19 23 Consultation Note [id number]:127 Normal [facility] OCC BLD IMMUNO SCREENon 05 OCCULT BLOOD Negative Normal NEGATIVE [facility] Comment on above: Performed By: #### B MP #### [facility] [address] [address] [address] Deepika Terrell RAD - MISCon 08-13-2022 RAD - MISC [id number]:127 Normal [facility] Physician Referralon 023 Physician Referral [id number]:127 Normal [facility] NM HEPATOBILIARY SCAN W EFon 08-09-2022 NM [...] by: GEOVANY ESPINAL Date: 2022-08-09 10:42 Normal [facility] US SINGLE QUAD RT UPPERon US [...] KURT JOE Date: 2022-08-08 07:42 Normal [facility] GLYCOHEMOGLOBIN A1Con 2022 ADA RECOMMENDATION SEE BELOW Normal [facility] Comment on above: Result Comment: ADA RECOMMENDED LIMIT 4.0 - 6.0 ADA THERAPEUTIC TARGET < 7.0 ACTION SUGGESTED > 7.0 Performed By: #### I NSULT #### [facility] [address] [address] [address] Deepika Terrell Glucose [Mass/Vol] 117 mg/dL Normal [facility] Comment on above: Performed By: #### I NSULT #### [facility] [address] [place], [place] [address] Dr. Deepika Terrell HbA1c (Bld) [Mass fraction] 5.7 % Normal 4.5-6.2 [facility] Comment on above: Performed By: #### I NSULT #### [facility] [address] [place], [place] [address] ABD/PELVIS WO CONon [...] MARK LEE Date: 2022-07-20 07:40 Normal [facility] CBC AUTO DIFFon 07-19-2022 BASO # 0.0 103/ul Normal 0.0-0.1 [facility] Comment on above: Performed By: #### C BC #### [facility] [address] [place] [address] Dr. Deepika Terrell Basophils/100 WBC (Bld) 0.3 % Normal 0.2-2.0 [facility] Comment on above: Performed By: #### C BC #### [facility] [address] [place] [address] Dr. Deepika Terrell EO # 0.3 103/ul Normal 0.0-0.7 [facility] Comment on above: Performed By: #### C BC #### [facility] [address] [address] [address] Deepika Terrell Eosinophils/100 WBC (Bld) 2.4 % Normal 0.9-7.0 [facility] Comment on above: Performed By: #### C BC #### [facility] [address] [address] [address] Deepika Terrell Erythrocyte distribution width (RBC) [Ratio] 14.8 % Normal 11.0-15.0 [facility] Comment on above: Performed By: #### C BC #### [facility] [address] [place] [address] Dr. Deepika Terrell Hematocrit (Bld) [Volume fraction] 33.8 % Critically low 42.0-54.0 [facility] Comment on above: Performed By: #### C BC #### [facility] [address] [place] [address] Dr. Deepika Terrell Hemoglobin (Bld) [Mass/Vol] 11.0 g/dL Critically low 14.0-18.0 [facility] Comment on above: Performed By: #### C BC #### [facility] [address] [place] [address] Dr. Deepika Terrell IG # 0.08 10e3/ul Critically high 0.00-0.03 [facility] Comment on above: Performed By: #### C BC #### [facility] [address] [place] [address] Dr. Deepika Terrell IG % 0.7 % Critically high 0.0-0.5 [facility] Comment on above: Performed By: #### C BC #### [facility] [address] [place] [address] Dr. Deepika Terrell LYMPH # 3.5 103/ul Normal 1.2-3.8 [facility] Comment on above: Performed By: #### C BC #### [facility] [address] [place] [address] Dr. Deepika Terrell Lymphocytes/100 WBC (Bld) 29.2 % Normal 20.5-60.0 [facility] Comment on above: Performed By: #### C BC #### [facility] [address] [place] [address] Dr. Deepika Terrell MANUAL DIFF REQ NO Normal [facility] Comment on above: Performed By: #### C BC #### [facility] [address] [place] [address] Dr. Deepika Terrell MCH (RBC) [Entitic mass] 29.4 pg Normal 25.9-34.0 [facility] Comment on above: Performed By: #### C BC #### [facility] [address] [place] [address] Dr. Deepika Terrell MCHC (RBC) [Mass/Vol] 32.5 g/dL Normal 29.9-35.[address] [facility] Comment on above: Performed By: #### C BC #### [facility] [address] [address] [address] Deepika Terrell MCV (RBC) [Entitic vol] 90.4 fL Normal 80.0-94.0 [facility] Comment on above: Performed By: #### C BC #### [facility] [address] [address] [address] Deepika Terrell MONO # 0.7 103/ul Normal 0.3-0.8 [facility] Comment on above: Performed By: #### C BC #### [facility] [address] [address] [address] Deepika Terrell Monocytes/100 WBC (Bld) 6.1 % Normal 1.7-12.0 [facility] Comment on above: Performed By: #### C BC #### [facility] [address] [address] [address] Deepika Terrell NEUT # 7.3 103/ul Critically high 1.4-6.5 [facility] Comment on above: Performed By: #### C BC #### [facility] [address] [address] [address] Deepika Terrell Neutrophils/100 WBC (Bld) 61.3 % Normal 43.0-75.0 [facility] Comment on above: Performed By: #### C BC #### [facility] [address] [address] [address] Deepika Terrell Platelet mean volume (Bld) [Entitic vol] 10.8 fL Normal 9.5-13.5 [facility] Comment on above: Performed By: #### C BC #### [facility] [address] [address] [address] Deepika Terrell PLT 372 103/ul Normal 150-[address] [facility] Comment on above: Performed By: #### C BC #### [facility] [address] [address] [address] Deepika Terrell RBC 3.74 106/ul Critically low 4.70-6.10 [facility] Comment on above: Performed By: #### C BC #### [facility] [address] [address] [address] Deepika Terrell WBC 11.9 103/ul Critically high 4.0-11.0 [facility] Comment on above: Performed By: #### C BC #### [facility] [address] [address] [address] Deepika Terrell PROF CHEM 8 (BAS METB)on Anion gap [Moles/Vol] 16.1 mmol/L Normal [facility] Comment on above: Performed By: #### I NSULT #### [facility] [address] [address] [address] Deepika Terrell Calcium [Mass/Vol] 9.0 mg/dL Normal 8.5-10.1 [facility] Comment on above: Performed By: #### I NSULT #### [facility] [address] [address] [address] Deepika Terrell Chloride [Moles/Vol] 108 mmol/L Critically high 98-107 [facility] Comment on above: Performed By: #### I NSULT #### [facility] [address] [address] [address] Deepika Terrell CO2 [Moles/Vol] 19.3 mmol/L Critically low 21.0-32.0 [facility] Comment on above: Performed By: #### I NSULT #### [facility] [address] [address] [address] Deepika Terrell Creatinine [Mass/Vol] 2.68 mg/dL Critically high 0.70-1.30 [facility] Comment on above: Performed By: #### I NSULT #### [facility] [address] [address] [address] Deepika Terrell EGFR-AF MACANESE 27 mL/min/1.73m2 Critically low >=60 [facility] Comment on above: Performed By: #### I NSULT #### [facility] [address] [address] [address] Deepika Terrell EGFR-NON AF MACANESE 23 mL/min/1.73m2 Critically low >=[address] [facility] Comment on above: Performed By: #### I NSULT #### [facility] [address] [address] [address] Deepika Terrell Glucose [Mass/Vol] 138 mg/dL Critically high 74-106 [facility] Comment on above: Performed By: #### I NSULT #### [facility] [address] [address] [address] Deepika Terrell Potassium [Moles/Vol] 4.4 mmol/L Normal 3.5-5.1 [facility] Comment on above: Performed By: #### I NSULT #### [facility] [address] [address] [address] Deepika Terrell Sodium [Moles/Vol] 139 mmol/L Normal 136-145 [facility] Comment on above: Performed By: #### I NSULT #### [facility] [address] [address] [address] Deepika Terrell Urea nitrogen [Mass/Vol] 68.0 mg/dL Critically high 7.0-18.0 [facility] Comment on above: Performed By: #### I NSULT #### [facility] [address] [address] [address] Deepika Terrell Urea nitrogen/Creatinin e [Mass ratio] 25.4 mg/mg Normal [facility] Comment on above: Performed By: #### I NSULT #### [facility] [address] [place] [address] Dr. Deepika Terrell CA 19-9on 07-18-2022 CA 19-9 9 U/mL Normal 0-35 [facility] Comment on above: Result Comment: [employer] Electrochemiluminescence Immunoassay (ECLIA) . Values obtained with different assay methods or kits cannot be used interchangeably. Results cannot be interpreted as absolute evidence of the presence or absence of malignant disease. Performed By: #### B MP #### [facility] [address] [place] [address] Dr. Deepika Terrell CEAon 07-18-2022 CEA 3.1 ng/mL Normal 0.0-4.7 [facility] Comment on above: Result Comment: Nons mokers <3.9 Smokers <5.6 . [employer] Electrochemiluminescence Immunoassay (ECLIA) . Values obtained with different assay methods or kits cannot be used interchangeably. Results cannot be interpreted as absolute evidence of the presence or absence of malignant disease. Performed By: #### I NSULT #### [facility] [address] [place] [address] Dr. Deepika Terrell HELICOBACTER PYLORI AB IGMon 07-18-2022 H pylori, IgM Abs <9.0 Normal 0.0-8.9 [facility] Comment on above: Result Comment: Nega tive <9.0 Equivocal 9.0 - 11.0 Positive >11.0 . This test was developed and its performance characteristics determined by [employer]. It has not been cleared or approved by the Food and Drug Administration. Performed By: #### C PEPT #### [facility] [address] [place] [address] Dr. Deepika Terrell AMYLASEon 07-17-2022 Amylase [Catalytic activity/Vol] 38 U/L Normal 25-115 [facility] Comment on above: Performed By: #### C BC #### [facility] [address] [place] [address] Dr. Deepika Terrell CBC W MANUAL DIFFon 07-18-19 23 ATYPICAL LYMPH # Normal [facility] Comment on above: Performed By: #### E RUR #### [facility] [address] [place] [address] Dr. Deepika Terrell ATYPICAL LYMPH % Normal [facility] Comment on above: Performed By: #### E RUR #### [facility] [address] [place] [address] Dr. Deepika Terrell BAND # Normal 0.0-0.3 [facility] Comment on above: Performed By: #### E RUR #### [facility] [address] [place] [address] Dr. Deepika Terrell BAND % Normal 0-5 [facility] Comment on above: Performed By: #### E RUR #### [facility] [address] [place] [address] Dr. Deepika Terrell BASOM # 0.00 103/ul Normal 0.00-0.10 [facility] Comment on above: Performed By: #### E RUR #### [facility] [address] [place] [address] Dr. Deepika Terrell BASOM % 0.0 % Critically low 0.2-2.0 [facility] Comment on above: Performed By: #### E RUR #### [facility] [address] [place] [address] Dr. Deepika Terrell BLAST # Normal [facility] Comment on above: Performed By: #### E RUR #### [facility] [address] [place] [address] Dr. Deepika Terrell BLAST % Normal [facility] Comment on above: Performed By: #### E RUR #### [facility] [address] [place] [address] Dr. Deepika Terrell CORRECTED WBC Normal 4.0-11.[address] [facility] Comment on above: Performed By: #### E RUR #### [facility] [address] [place] [address] Dr. Deepika Terrell EOS # 0.00 103/ul Normal 0.00-0.70 [facility] Comment on above: Performed By: #### E RUR #### [facility] [address] [place] [address] Dr. Deepika Terrell EOS% 0.0 % Critically low 0.9-7.0 [facility] Comment on above: Performed By: #### E RUR #### [facility] [address] [place] [address] Dr. Deepika Terrell HCT 35.9 % Critically low 42.0-54.0 [facility] Comment on above: Performed By: #### E RUR #### [facility] [address] [place] [address] Dr. Deepika Terrell HGB 11.6 g/dl Critically low 14.0-18.0 [facility] Comment on above: Performed By: #### E RUR #### [facility] [address] [place] [address] Dr. Deepika Terrell LYMPHM # 3.48 103/ul Normal 1.20-3.80 [facility] Comment on above: Performed By: #### E RUR #### [facility] [address] [place] [address] Dr. Deepika Terrell LYMPHM% 17.0 % Critically low 20.5-60.0 [facility] Comment on above: Performed By: #### E RUR #### [facility] [address] [address] [address] Deepika Terrell MCH 29.5 pg Normal 25.9-34.0 [facility] Comment on above: Performed By: #### E RUR #### [facility] [address] [place] [address] Dr. Deepika Terrell MCHC 32.3 g/dl Normal 29.9-35.[address] [facility] Comment on above: Performed By: #### E RUR #### [facility] [address] [place] [address] Dr. Deepika Terrell MCV 91.3 fL Normal 80.0-94.0 [facility] Comment on above: Performed By: #### E RUR #### [facility] [address] [place] [address] Dr. Deepika Terrell METAMYELOCYTE # Normal [facility] Comment on above: Performed By: #### E RUR #### [facility] [address] [place] [address] Dr. Deepika Terrell METAMYELOCYTE % Normal [facility] Comment on above: Performed By: #### E RUR #### [facility] [address] [place] [address] Dr. Deepika Terrell MONOM# 1.23 103/ul Critically high 0.30-0.80 [facility] Comment on above: Performed By: #### E RUR #### [facility] [address] [place] [address] Dr. Deepika Terrell MONOM% 6.0 % Normal 1.7-12.0 [facility] Comment on above: Performed By: #### E RUR #### [facility] [address] [address] [address] Deepika Terrell MPV 10.8 fL Normal 9.5-13.5 [facility] Comment on above: Performed By: #### E RUR #### [facility] [address] [place] [address] Dr. Deepika Terrell MYELOCYTE # Normal [facility] Comment on above: Performed By: #### E RUR #### [facility] [address] [address] [address] Deepika Terrell MYELOCYTE % Normal [facility] Comment on above: Performed By: #### E RUR #### [facility] [address] [place] [address] Dr. Deepika Terrell NRBC Normal [facility] Comment on above: Performed By: #### E RUR #### [facility] [address] [place] [address] Dr. Deepika Terrell PLT 423 103/ul Normal 150-450 [facility] Comment on above: Performed By: #### E RUR #### [facility] [address] [place] [address] Dr. Deepika Terrell RBC 3.93 106/ul Critically low 4.70-6.10 [facility] Comment on above: Performed By: #### E RUR #### [facility] [address] [place] [address] Dr. Deepika Terrell RDW 14.7 % Normal 11.0-15.[address] [facility] Comment on above: Performed By: #### E RUR #### [facility] [address] [place] [address] Dr. Deepika Terrell SEG # 15.79 103/ul Critically high 1.40-6.50 [facility] Comment on above: Performed By: #### E RUR #### [facility] [address] [place] [address] Dr. Deepika Terrell SEG % 77.0 % Critically high 43.0-75.0 [facility] Comment on above: Performed By: #### E RUR #### [facility] [address] [place] [address] Dr. Deepika Terrell WBC 20.5 103/ul Critically high 4.0-11.0 [facility] Comment on above: Performed By: #### E RUR #### [facility] [address] [place] [address] Dr. Deepika Terrell FREE THYROXINE INDEX T7on FTI 1.95 Normal 1.30-4.50 [facility] Comment on above: Performed By: #### C BC #### [facility] [address] [place] [address] Dr. Deepika Terrell T3U 39.0 % Normal 33.0-40.0 [facility] Comment on above: Performed By: #### C BC #### [facility] [address] [place] [address] Dr. Deepika Terrell T4 [Mass/Vol] 5.00 ug/dL Normal 4.50-12.10 [facility] Comment on above: Performed By: #### C BC #### [facility] [address] [place] [address] Dr. Deepika Terrell LIPASEon 07-17-2022 Lipase [Catalytic activity/Vol] 126.0 U/L Normal 73.0-393.0 [facility] Comment on above: Performed By: #### C BC #### [facility] [address] [place] [address] Dr. Deepika Terrell LIVER PROFILEon 07-17-2022 Albumin [Mass/Vol] 3.7 g/dL Normal 3.4-5.0 [facility] Comment on above: Performed By: #### C BC #### [facility] [address] [place] [address] Dr. Deepika Terrell Albumin/Globulin [Mass ratio] 1.0 {ratio} Normal [facility] Comment on above: Performed By: #### C BC #### [facility] [address] [place] [address] Dr. Deepika Terrell ALP [Catalytic activity/Vol] 82 U/L Normal 46-[address] [facility] Comment on above: Performed By: #### C BC #### [facility] [address] [place] [address] Dr. Deepika Terrell ALT [Catalytic activity/Vol] 33 U/L Normal 16-63 [facility] Comment on above: Performed By: #### C BC #### [facility] [address] [address] [address] Deepika Terrell AST [Catalytic activity/Vol] 15 U/L Normal 15-37 [facility] Comment on above: Performed By: #### C BC #### [facility] [address] [place] [address] Dr. Deepika Terrell BILI, CONJUGATED 0.1 mg/dL Normal 0.0-0.2 [facility] Comment on above: Performed By: #### C BC #### [facility] [address] [place] [address] Dr. Deepika Terrell Bilirubin [Mass/Vol] 0.2 mg/dL Normal 0.2-1.0 [facility] Comment on above: Performed By: #### C BC #### [facility] [address] [place] [address] Dr. Deepika Terrell Globulin (S) [Mass/Vol] 3.6 g/dL Normal [facility] Comment on above: Performed By: #### C BC #### [facility] [address] [place] [address] Dr. Deepika Terrell Protein [Mass/Vol] 7.3 g/dL Normal 6.4-8.2 [facility] Comment on above: Performed By: #### C BC #### [facility] [address] [place] [address] Dr. Deepika Terrell PERIPHERAL SMEARon 3 Pathologist Cyto stain Nom (Cvx/Vag) [ID] DR. ANNIKA NIETO Normal [facility] Comment on above: Result Comment: revi ew of smear reveals n/n w/aniso. plts. normal. leukocytosis with neutrophili and absolute monocytosis. no atypical lymphs, immature blasts seen. these findings are suggestive of a reactive process. clinical correlation is recommend Performed By: #### P ERSMR #### [facility] [address] [address] [address] Deepika Terrell PROF CHEM 8 (BAS METB)on Anion gap [Moles/Vol] 19.0 mmol/L Normal [facility] Comment on above: Performed By: #### C BC #### [facility] [address] [address] [address] Deepika Terrell Calcium [Mass/Vol] 9.5 mg/dL Normal 8.5-10.1 [facility] Comment on above: Performed By: #### C BC #### [facility] [address] [address] [address] Deepika Terrell Chloride [Moles/Vol] 112 mmol/L Critically high 98-107 [facility] Comment on above: Performed By: #### C BC #### [facility] [address] [place] [address] Dr. Deepika Terrell CO2 [Moles/Vol] 19.4 mmol/L Critically low 21.0-32.0 [facility] Comment on above: Performed By: #### C BC #### [facility] [address] [address] [address] Deepika Terrell Creatinine [Mass/Vol] 2.51 mg/dL Critically high 0.70-1.30 [facility] Comment on above: Performed By: #### C BC #### [facility] [address] [place] [address] Dr. Deepika Terrell EGFR-AF MACANESE 30 mL/min/1.73m2 Critically low >=60 [facility] Comment on above: Performed By: #### C BC #### [facility] [address] [address] [address] Deepika Terrell EGFR-NON AF MACANESE 24 mL/min/1.73m2 Critically low >=60 [facility] Comment on above: Performed By: #### C BC #### [facility] [address] [address] [address] Deepika Terrell Glucose [Mass/Vol] 159 mg/dL Critically high 74-106 [facility] Comment on above: Performed By: #### C BC #### [facility] [address] [address] [address] Deepika Terrell Potassium [Moles/Vol] 4.4 mmol/L Normal 3.5-5.1 [facility] Comment on above: Performed By: #### C BC #### [facility] [address] [address] [address] Deepika Terrell Sodium [Moles/Vol] 146 mmol/L Critically high 136-145 [facility] Comment on above: Performed By: #### C BC #### [facility] [address] [address] [address] Deepika Terrell Urea nitrogen [Mass/Vol] 67.0 mg/dL Critically high 7.0-18.0 [facility] Comment on above: Performed By: #### C BC #### [facility] [address] [place] [address] Dr. Deepika Terrell Urea nitrogen/Creatinin e [Mass ratio] 26.7 mg/mg Normal [facility] Comment on above: Performed By: #### C BC #### [facility] [address] [address] [address] Deepika Terrell TSHon 07-17-2022 TSH 0.884 uIU/mL Normal 0.358-3.[address] [facility] Comment on above: Performed By: #### C BC #### [facility] [address] [place] [address] Dr. Deepika Terrell INSULIN FREE AND TOTALon Free Insulin 22 uU/mL Critically high [facility] Comment on above: Result Comment: Refe rence Range: Pubertal Children and Adults (fasting): 0 - 17 Performed By: #### I NSULT #### [facility] [address] [place] [address] Dr. Deepika Terrell Total Insulin 22 uU/mL Normal [facility] Comment on above: Result Comment: Non- [...] developed and its performance characteristics determined by [employer]. It has not been cleared or approved by the Food and Drug Administration. Performed By: #### I NSULT #### [facility] [address] [place] [address] Dr. Deepika Terrell C-PEPTIDE, SERUMon 3 C-Peptide, Serum 7.7 ng/mL Critically high 1.1-4.[address] [facility] Comment on above: Result Comment: C-Pe ptide reference interval is for fasting patients. Performed By: #### C PEPT #### [facility] [address] [place] [address] Dr. Deepika Terrell OVA AND PARASITE EXAMINATION on 06-04-2022 Ova + Parasite Exam Final report Normal [facility] Comment on above: Result Comment: Thes e results were obtained using wet preparation(s) and trichrome stained smear. This test does not include testing for Cryptosporidium parvum, Cyclospora, or Microsporidia. Performed By: #### B MP #### [facility] [address] [place] [address] Dr. Deepika Terrell Result 1 Comment Normal [facility] Comment on above: Result Comment: No o va, cysts, or parasites seen. . One negative specimen does not rule out the possibility of a parasitic infection. Performed By: #### B MP #### [facility] [address] [place] [address] Dr. Deepika Terrell CBC AUTO DIFFon 06-02-2022 BASO # 0.0 103/ul Normal 0.0-0.1 [facility] Comment on above: Performed By: #### I NSULT #### [facility] [address] [place] [address] Dr. Deepika Terrell Basophils/100 WBC (Bld) 0.4 % Normal 0.2-2.0 [facility] Comment on above: Performed By: #### I NSULT #### [facility] [address] [place] [address] Dr. Deepika Terrell EO # 0.4 103/ul Normal 0.0-0.7 [facility] Comment on above: Performed By: #### I NSULT #### [facility] [address] [place] [address] Dr. Deepika eTrrell Eosinophils/100 WBC (Bld) 3.3 % Normal 0.9-7.0 [facility] Comment on above: Performed By: #### I NSULT #### [facility] [address] [place] [address] Dr. Deepika Terrell Erythrocyte distribution width (RBC) [Ratio] 14.6 % Normal 11.0-15.0 [facility] Comment on above: Performed By: #### I NSULT #### [facility] [address] [place] [address] Dr. Deepika Terrell Hematocrit (Bld) [Volume fraction] 29.8 % Critically low 42.0-54.0 [facility] Comment on above: Performed By: #### I NSULT #### [facility] [address] [place] [address] Dr. Deepika Terrell Hemoglobin (Bld) [Mass/Vol] 9.8 g/dL Critically low 14.0-18.0 [facility] Comment on above: Performed By: #### I NSULT #### [facility] [address] [place] [address] Dr. Deepika Terrell IG # 0.05 10e3/ul Critically high 0.00-0.03 [facility] Comment on above: Performed By: #### I NSULT #### [facility] [address] [place] [address] Dr. Deepika Terrell IG % 0.5 % Normal 0.0-0.5 [facility] Comment on above: Performed By: #### I NSULT #### [facility] [address] [place] [address] Dr. Deepika Terrell LYMPH # 1.9 103/ul Normal 1.2-3.[address] [facility] Comment on above: Performed By: #### I NSULT #### [facility] [address] [address] [address] Deepika Terrell Lymphocytes/100 WBC (Bld) 17.3 % Critically low 20.5-60.0 [facility] Comment on above: Performed By: #### I NSULT #### [facility] [address] [place] [address] Dr. Deepika Terrell MANUAL DIFF REQ NO Normal [facility] Comment on above: Performed By: #### I NSULT #### [facility] [address] [place] [address] Dr. Deepika Terrell MCH (RBC) [Entitic mass] 29.9 pg Normal 25.9-34.[address] [facility] Comment on above: Performed By: #### I NSULT #### [facility] [address] [place] [address] Dr. Deepika Terrell MCHC (RBC) [Mass/Vol] 32.9 g/dL Normal 29.9-35.[address] [facility] Comment on above: Performed By: #### I NSULT #### [facility] [address] [place] [address] Dr. Deepika Terrell MCV (RBC) [Entitic vol] 90.9 fL Normal 80.0-94.0 [facility] Comment on above: Performed By: #### I NSULT #### [facility] [address] [place] [address] Dr. Deepika Terrell MONO # 0.8 103/ul Normal 0.3-0.[address] [facility] Comment on above: Performed By: #### I NSULT #### [facility] [address] [place] [address] Dr. Deepika Terrell Monocytes/100 WBC (Bld) 7.4 % Normal 1.7-12.[address] [facility] Comment on above: Performed By: #### I NSULT #### [facility] [address] [place] [address] Dr. Deepika Terrell NEUT # 7.9 103/ul Critically high 1.4-6.5 [facility] Comment on above: Performed By: #### I NSULT #### [facility] [address] [address] [address] Deepika Terrell Neutrophils/100 WBC (Bld) 71.1 % Normal 43.0-75.0 [facility] Comment on above: Performed By: #### I NSULT #### [facility] [address] [address] [address] Deepika Terrell Platelet mean volume (Bld) [Entitic vol] 10.7 fL Normal 9.5-13.5 [facility] Comment on above: Performed By: #### I NSULT #### [facility] [address] [address] [address] Deepika Terrell PLT 295 103/ul Normal 150-450 [facility] Comment on above: Performed By: #### I NSULT #### [facility] [address] [place] [address] Dr. Deepika Terrell RBC 3.28 106/ul Critically low 4.70-6.10 [facility] Comment on above: Performed By: #### I NSULT #### [facility] [address] [address] [address] Deepika Terrell WBC 11.1 103/ul Critically high 4.0-11.0 [facility] Comment on above: Performed By: #### I NSULT #### [facility] [address] [place] [address] ABD/PELV W CONon [...] YANIV DACOSTA Date: 2022-06-01 22:50 Normal [facility] Covid-19 PCR (CVDTB)on 05-09 SARS-CoV-2 (COVID-19) RNA DANICA+probe Ql (Unsp spec) Not detected Normal NOT DETECTED [facility] Comment on above: Result Comment: [...] for this test is supported by the [place] of [employer] and Human Service's declaration that [...] used). Performed By: #### I NSULT #### [facility] [address] [place] [address] Dr. Deepika Terrell ER URINE PROFILEon 3 Bilirubin Ql (U) Negative Normal NEGATIVE [facility] Comment on above: Performed By: #### E RUR #### [facility] [address] [place] [address] Dr. Deepika Terrell Clarity (U) CLEAR Normal CLEAR [facility] Comment on above: Performed By: #### E RUR #### [facility] [address] [place] [address] Dr. Deepika Terrell Color (U) LT. YELLOW Normal YELLOW [facility] Comment on above: Performed By: #### E RUR #### [facility] [address] [place] [address] Dr. Deepika Terrell ERUEVAN A micrscopic examina tion will be performed if indicated. Normal [facility] Comment on above: Performed By: #### E RUR #### [facility] [address] [place] [address] Dr. Deepika Terrell Glucose Ql (U) Negative Normal NEGATIVE [facility] Comment on above: Performed By: #### E RUR #### [facility] [address] [place] [address] Dr. Deepika Terrell Hemoglobin Ql (U) Negative Normal NEGATIVE [facility] Comment on above: Performed By: #### E RUR #### [facility] [address] [place] [address] Dr. Deepika Terrell Ketones Ql (U) Negative Normal NEGATIVE [facility] Comment on above: Performed By: #### E RUR #### [facility] [address] [place] [address] Dr. Deepika Terrell LEUKOCYTES Negative Normal NEGATIVE [facility] Comment on above: Performed By: #### E RUR #### [facility] [address] [place] [address] Dr. Deepika Terrell Nitrite Ql (U) Negative Normal NEGATIVE [facility] Comment on above: Performed By: #### E RUR #### [facility] [address] [place] [address] Dr. Deepika Terrell pH (U) 6.0 [pH] Normal 5-9 [facility] Comment on above: Performed By: #### E RUR #### [facility] [address] [place] [address] Dr. Deepika Terrell SPEC GRAVITY 1.010 Normal 1.005-<=1.02 5 [facility] Comment on above: Performed By: #### E RUR #### [facility] [address] [place] [address] Dr. Deepika Terrell UA PROTEIN Negative Normal NEGATIVE/ TRACE [facility] Comment on above: Performed By: #### E RUR #### [facility] [address] [place] [address] Dr. Deepika Terrell UR MICRO IND NOT INDICATED Normal [facility] Comment on above: Performed By: #### E RUR #### [facility] [address] [place] [address] Dr. Deepika Terrell Urobilinogen Qn (U) 0.2 {Jesus'U}/dL Normal 0.2 - 1.0 [facility] Comment on above: Performed By: #### E RUR #### [facility] [address] [place] [address] Dr. Deepika Terrell GLYCOHEMOGLOBIN A1Con 2022 ADA RECOMMENDATION SEE BELOW Normal [facility] Comment on above: Result Comment: ADA RECOMMENDED LIMIT 4.0 - 6.0 ADA THERAPEUTIC TARGET < 7.0 ACTION SUGGESTED > 7.0 Performed By: #### I NSULT #### [facility] [address] [place] [address] Dr. Deepika Terrell Glucose [Mass/Vol] 134 mg/dL Normal [facility] Comment on above: Performed By: #### I NSULT #### [facility] [address] [address] [address] Deepika Terrell HbA1c (Bld) [Mass fraction] 6.3 % Critically high 4.5-6.2 [facility] Comment on above: Performed By: #### I NSULT #### [facility] [address] [address] [address] Deepika Terrell POINT OF CARE GLUCOSEon 05-09 Glucose [Mass/Vol] 175 mg/dL Critically high 74-106 [facility] Comment on above: Performed By: #### I NSULT #### [facility] [address] [place] [address] Dr. Deepika Terrell Glucose [Mass/Vol] 151 mg/dL Critically high 74-106 [facility] Comment on above: Performed By: #### I NSULT #### [facility] [address] [place] [address] Dr. Deepika Terrell Glucose [Mass/Vol] 95 mg/dL Normal 74-106 [facility] Comment on above: Performed By: #### C BC #### [facility] [address] [place] [address] Dr. Deepika Terrell Glucose [Mass/Vol] 83 mg/dL Normal 74-106 [facility] Comment on above: Performed By: #### I NSULT #### [facility] [address] [address] [address] Deepika Terrell Glucose [Mass/Vol] 63 mg/dL Critically low 74-106 [facility] Comment on above: Performed By: #### P ERSMR #### [facility] [address] [place] [address] Dr. Deepika Terrell Glucose [Mass/Vol] 48 mg/dL Critically low 74-106 [facility] Comment on above: Result Comment: Resu lt Not Confirmed Performed By: #### B MP #### [facility] [address] [place] [address] Dr. Deepika Terrell Glucose [Mass/Vol] 62 mg/dL Critically low 74-106 [facility] Comment on above: Performed By: #### B MP #### [facility] [address] [address] [address] Deepika Terrell Glucose [Mass/Vol] 61 mg/dL Critically low 74-106 [facility] Comment on above: Performed By: #### C PEPT #### [facility] [address] [place] [address] Dr. Deepika Terrell PROF CHEM 8 (BAS METB)on Anion gap [Moles/Vol] 11.6 mmol/L Normal [facility] Comment on above: Performed By: #### B MP #### [facility] [address] [address] [address] Deepika Terrell Calcium [Mass/Vol] 8.2 mg/dL Critically low 8.5-10.1 [facility] Comment on above: Performed By: #### B MP #### [facility] [address] [place] [address] Dr. Deepiak Terrell Chloride [Moles/Vol] 111 mmol/L Critically high 98-107 [facility] Comment on above: Performed By: #### B MP #### [facility] [address] [place] [address] Dr. Deepika Terrell CO2 [Moles/Vol] 23.5 mmol/L Normal 21.0-32.0 [facility] Comment on above: Performed By: #### B MP #### [facility] [address] [address] [address] Deepika Terrell Creatinine [Mass/Vol] 1.32 mg/dL Critically high 0.70-1.30 [facility] Comment on above: Performed By: #### B MP #### [facility] [address] [place] [address] Dr. Deepika Terrell EGFR-AF MACANESE >60 Normal >=60 [facility] Comment on above: Performed By: #### B MP #### [facility] [address] [place] [address] Dr. Deepika Terrell EGFR-NON AF MACANESE 51 mL/min/1.73m2 Critically low >=60 [facility] Comment on above: Performed By: #### B MP #### [facility] [address] [address] [address] Deepika Terrell Glucose [Mass/Vol] 91 mg/dL Normal 74-106 [facility] Comment on above: Performed By: #### B MP #### [facility] [address] [address] [address] Deepika Terrell Potassium [Moles/Vol] 4.1 mmol/L Normal 3.5-5.1 [facility] Comment on above: Performed By: #### B MP #### [facility] [address] [address] [address] Deepika Terrell Sodium [Moles/Vol] 142 mmol/L Normal 136-145 [facility] Comment on above: Performed By: #### B MP #### [facility] [address] [place] [address] Dr. Depeika Terrell Urea nitrogen [Mass/Vol] 29.0 mg/dL Critically high 7.0-18.0 [facility] Comment on above: Performed By: #### B MP #### [facility] [address] [address] [address] Deepika Terrell Urea nitrogen/Creatinin e [Mass ratio] 22.0 mg/mg Normal [facility] Comment on above: Performed By: #### B MP #### [facility] [address] [address] [address] Deepika Terrell AMMONIAon 06-01-2022 Ammonia (P) [Moles/Vol] 17 umol/L Normal 11-32 [facility] Comment on above: Performed By: #### C BC #### [facility] [address] [address] [address] Deepika Terrell BNPon 06-01-2022 Natriuretic peptide B (Bld) [Mass/Vol] 132.0 pg/mL Normal <=1,800.0 [facility] Comment on above: Performed By: #### C BC #### [facility] [address] [place] [address] Dr. Deepika Terrell CBC AUTO DIFFon 06-01-2022 BASO # 0.1 103/ul Normal 0.0-0.1 [facility] Comment on above: Performed By: #### C BC #### [facility] [address] [place] [address] Dr. Deepika Terrell Basophils/100 WBC (Bld) 0.3 % Normal 0.2-2.0 [facility] Comment on above: Performed By: #### C BC #### [facility] [address] [address] [address] Deepika Terrell EO # 0.1 103/ul Normal 0.0-0.7 [facility] Comment on above: Performed By: #### C BC #### [facility] [address] [place] [address] Dr. Deepika Terrell Eosinophils/100 WBC (Bld) 0.9 % Normal 0.9-7.0 [facility] Comment on above: Performed By: #### C BC #### [facility] [address] [place] [address] Dr. Deepika Terrell Erythrocyte distribution width (RBC) [Ratio] 14.7 % Normal 11.0-15.0 [facility] Comment on above: Performed By: #### C BC #### [facility] [address] [place] [address] Dr. Deepika Terrell Hematocrit (Bld) [Volume fraction] 33.6 % Critically low 42.0-54.0 [facility] Comment on above: Performed By: #### C BC #### [facility] [address] [place] [address] Dr. Deepika Terrell Hemoglobin (Bld) [Mass/Vol] 10.9 g/dL Critically low 14.0-18.0 [facility] Comment on above: Performed By: #### C BC #### [facility] [address] [place] [address] Dr. Deepika Terrell IG # 0.07 10e3/ul Critically high 0.00-0.03 [facility] Comment on above: Performed By: #### C BC #### [facility] [address] [place] [address] Dr. Deepika Terrell IG % 0.5 % Normal 0.0-0.5 [facility] Comment on above: Performed By: #### C BC #### [facility] [address] [place] [address] Dr. Deepika Terrell LYMPH # 1.5 103/ul Normal 1.2-3.8 [facility] Comment on above: Performed By: #### C BC #### [facility] [address] [place] [address] Dr. Deepika Terrell Lymphocytes/100 WBC (Bld) 10.3 % Critically low 20.5-60.0 [facility] Comment on above: Performed By: #### C BC #### [facility] [address] [place] [address] Dr. Deepika Terrell MANUAL DIFF REQ NO Normal [facility] Comment on above: Performed By: #### C BC #### [facility] [address] [place] [address] Dr. Deepika Terrell MCH (RBC) [Entitic mass] 29.9 pg Normal 25.9-34.0 [facility] Comment on above: Performed By: #### C BC #### [facility] [address] [place] [address] Dr. Deepika Terrell MCHC (RBC) [Mass/Vol] 32.4 g/dL Normal 29.9-35.2 [facility] Comment on above: Performed By: #### C BC #### [facility] [address] [place] [address] Dr. Deepika Terrell MCV (RBC) [Entitic vol] 92.1 fL Normal 80.0-94.0 [facility] Comment on above: Performed By: #### C BC #### [facility] [address] [place] [address] Dr. Deepika Terrell MONO # 1.3 103/ul Critically high 0.3-0.8 [facility] Comment on above: Performed By: #### C BC #### [facility] [address] [place] [address] Dr. Deepika Terrell Monocytes/100 WBC (Bld) 8.9 % Normal 1.7-12.0 [facility] Comment on above: Performed By: #### C BC #### [facility] [address] [place] [address] Dr. Deepika Terrell NEUT # 11.8 103/ul Critically high 1.4-6.5 [facility] Comment on above: Performed By: #### C BC #### [facility] [address] [place] [address] Dr. Deepika Terrell Neutrophils/100 WBC (Bld) 79.1 % Critically high 43.0-75.0 [facility] Comment on above: Performed By: #### C BC #### [facility] [address] [place] [address] Dr. Deepika Terrlel Platelet mean volume (Bld) [Entitic vol] 11.4 fL Normal 9.5-13.5 [facility] Comment on above: Performed By: #### C BC #### [facility] [address] [place] [address] Dr. Deepika Terrell PLT 324 103/ul Normal 150-450 [facility] Comment on above: Performed By: #### C BC #### [facility] [address] [place] [address] Dr. Deepika Terrell RBC 3.65 106/ul Critically low 4.70-6.10 [facility] Comment on above: Performed By: #### C BC #### [facility] [address] [place] [address] Dr. Deepika Terrell WBC 14.9 103/ul Critically high 4.0-11.0 [facility] Comment on above: Performed By: #### C BC #### [facility] [address] [place] [address] Dr. Deepika Terrell POINT OF CARE GLUCOSEon 05-09 Glucose [Mass/Vol] 29 mg/dL Critically low 74-106 [facility] Comment on above: Result Comment: Resu lt Not Confirmed Performed By: #### B MP #### [facility] [address] [place] [address] Dr. Deepika Terrell Glucose [Mass/Vol] 28 mg/dL Critically low 74-106 [facility] Comment on above: Result Comment: Will Repeat Test Performed By: #### C PEPT #### [facility] [address] [place] [address] Dr. Deepika Terrell PROF 14(COMP METB)on 023 Albumin [Mass/Vol] 3.3 g/dL Critically low 3.4-5.0 [facility] Comment on above: Performed By: #### C BC #### [facility] [address] [place] [address] Dr. Deepika Terrell Albumin/Globulin [Mass ratio] 1.0 {ratio} Normal [facility] Comment on above: Performed By: #### C BC #### [facility] [address] [place] [address] Dr. Deepika Terrell ALP [Catalytic activity/Vol] 75 U/L Normal 46-116 [facility] Comment on above: Performed By: #### C BC #### [facility] [address] [place] [address] Dr. Deepika Terrell ALT [Catalytic activity/Vol] 34 U/L Normal 16-63 [facility] Comment on above: Performed By: #### C BC #### [facility] [address] [place] [address] Dr. Deepika Terrell Anion gap [Moles/Vol] 14.0 mmol/L Normal [facility] Comment on above: Performed By: #### C BC #### [facility] [address] [place] [address] Dr. Deepika Terrell AST [Catalytic activity/Vol] 19 U/L Normal 15-37 [facility] Comment on above: Performed By: #### C BC #### [facility] [address] [place] [address] Dr. Deepika Terrell Bilirubin [Mass/Vol] 0.2 mg/dL Normal 0.2-1.0 [facility] Comment on above: Performed By: #### C BC #### [facility] [address] [place] [address] Dr. Deepika Terrell Calcium [Mass/Vol] 8.6 mg/dL Normal 8.5-10.1 [facility] Comment on above: Performed By: #### C BC #### [facility] [address] [place] [address] Dr. Deepika Terrell Chloride [Moles/Vol] 109 mmol/L Critically high 98-107 [facility] Comment on above: Performed By: #### C BC #### [facility] [address] [place] [address] Dr. Deepika Terrell CO2 [Moles/Vol] 23.9 mmol/L Normal 21.0-32.0 [facility] Comment on above: Performed By: #### C BC #### [facility] [address] [place] [address] Dr. Deepika Terrell Creatinine [Mass/Vol] 1.59 mg/dL Critically high 0.70-1.30 [facility] Comment on above: Performed By: #### C BC #### [facility] [address] [place] [address] Dr. Deepika Terrell EGFR-AF MACANESE 50 mL/min/1.73m2 Critically low >=60 [facility] Comment on above: Performed By: #### C BC #### [facility] [address] [place] [address] Dr. Deepika Terrell EGFR-NON AF MACANESE 41 mL/min/1.73m2 Critically low >=60 [facility] Comment on above: Performed By: #### C BC #### [facility] [address] [place] [address] Dr. Deepika Terrell Globulin (S) [Mass/Vol] 3.3 g/dL Normal [facility] Comment on above: Performed By: #### C BC #### [facility] [address] [place] [address] Dr. Deepika Terrell Glucose [Mass/Vol] 26 mg/dL Critically low 74-106 [facility] Comment on above: Performed By: #### C BC #### [facility] [address] [place] [address] Dr. Deepika Terrell Potassium [Moles/Vol] 3.9 mmol/L Normal 3.5-5.1 [facility] Comment on above: Performed By: #### C BC #### [facility] [address] [address] [address] Deepika Terrell Protein [Mass/Vol] 6.6 g/dL Normal 6.4-8.2 [facility] Comment on above: Performed By: #### C BC #### [facility] [address] [address] [address] Deepika Terrell Sodium [Moles/Vol] 143 mmol/L Normal 136-145 [facility] Comment on above: Performed By: #### C BC #### [facility] [address] [address] [address] Deepika Terrell Urea nitrogen [Mass/Vol] 34.0 mg/dL Critically high 7.0-18.0 [facility] Comment on above: Performed By: #### C BC #### [facility] [address] [place] [address] Dr. Deepika Terrell Urea nitrogen/Creatinin e [Mass ratio] 21.4 mg/mg Normal [facility] Comment on above: Performed By: #### C BC #### [facility] [address] [place] [address] Dr. Deepika Terrell TROPONIN, HIGH SENSITIVITYon 06-01-2022 HSTROP 13.2 pg/mL Normal 4.0-76.1 [facility] Comment on above: Result Comment: CUT- OFF POINTS HAVE BEEN ESTABLISHED BASED ON THE FOURTH UNIVERSAL DEFINITIONS OF MYOCARDIAL INFARCTION. THE UPPER REFERENCE LIMIT (URL) OF TROPONIN, DEFINED THE 99TH PERCENTILE OF cTnI DISTRIBUTION IN A REFERENCE POPULATION, HAS BEEN CONFIRMED THE DECISION THRESHOLD FOR MT DIAGNOSIS. Performed By: #### B MP #### [facility] [address] [place] [address] Dr. Deepika Terrell GI PANEL (PCR)on 05-30-2022 Adenovirus F 40/41 Not detected Normal NOT DETECTED [facility] Comment on above: Performed By: #### P ERSMR #### [facility] [address] [place] [address] Dr. Deepika Terrell Astrovirus Not detected Normal NOT DETECTED [facility] Comment on above: Performed By: #### P ERSMR #### [facility] [address] [address] [address] Deepika Terrell C. Diff toxin A/B Not detected Normal NOT DETECTED [facility] Comment on above: Performed By: #### P ERSMR #### [facility] [address] [place] [address] Dr. Deepika Terrell Campylobacter Not detected Normal NOT DETECTED [facility] Comment on above: Performed By: #### P ERSMR #### [facility] [address] [place] [address] Dr. Deepika Terrell Cryptosporidium Not detected Normal NOT DETECTED [facility] Comment on above: Performed By: #### P ERSMR #### [facility] [address] [place] [address] Dr. Deepika Terrell Cyclos. Cayetanensis Not detected Normal NOT DETECTED [facility] Comment on above: Performed By: #### P ERSMR #### [facility] [address] [place] [address] Dr. Deepika Terrell E. Coli O157 Not Applicable Normal Not Applicable [facility] Comment on above: Performed By: #### P ERSMR #### [facility] [address] [place] [address] Dr. Deepika Terrell E. histolytica Not detected Normal NOT DETECTED [facility] Comment on above: Performed By: #### P ERSMR #### [facility] [address] [place] [address] Dr. Deepika Terrell EAEC Not detected Normal NOT DETECTED [facility] Comment on above: Performed By: #### P ERSMR #### [facility] [address] [place] [address] Dr. Deepika Terrell EIEC Not detected Normal NOT DETECTED [facility] Comment on above: Performed By: #### P ERSMR #### [facility] [address] [place] [address] Dr. Deepika Terrell EPEC Not detected Normal NOT DETECTED [facility] Comment on above: Performed By: #### P ERSMR #### [facility] [address] [address] [address] Deepika Terrell ETEC Not detected Normal NOT DETECTED [facility] Comment on above: Performed By: #### P ERSMR #### [facility] [address] [address] [address] Deepika Reardon Lamblia Not detected Normal NOT DETECTED [facility] Comment on above: Performed By: #### P ERSMR #### [facility] [address] [address] [address] Deepika WOLFE CONTROLS PASSED Normal [facility] Comment on above: Performed By: #### P ERSMR #### [facility] [address] [address] [address] Deepika RYAN HEADER GI PANEL BACTERIA Normal [facility] Comment on above: Performed By: #### P ERSMR #### [facility] [address] [address] [address] Deepika CACERES ECOLI GI PANEL DIARRHEAGEN IC E.COLI / SHIGELLA Normal [facility] Comment on above: Performed By: #### P ERSMR #### [facility] [address] [address] [address] Deepika CACERES INFO SEE BELOW Normal [facility] Comment on above: Result Comment: EAEC - Enteroaggregative E. Coli EPEC- Enteropathogenic E. Coli ETEC- Enterotoxigenic E. Coli lt/st STEC- Shigella-like toxin-producing E. Coli stx1/stx2 EIEC- Shigella/Enteroinvasive E. Coli Performed By: #### P ERSMR #### [facility] [address] [address] [address] Deepika CACERES PARASITES GI PANEL PARASITES Normal [facility] Comment on above: Performed By: #### P ERSMR #### [facility] [address] [address] [address] Deepika CACERES VIRUS GI PANEL VIRUSES Normal [facility] Comment on above: Performed By: #### P ERSMR #### [facility] [address] [address] [address] Deepika Terrell Norovirus GI/GII Not detected Normal NOT DETECTED [facility] Comment on above: Performed By: #### P ERSMR #### [facility] [address] [place] [address] Dr. Deepika Blood. Shigelloides Not detected Normal NOT DETECTED [facility] Comment on above: Performed By: #### P ERSMR #### [facility] [address] [place] [address] Dr. Deepika Terrell Rotavirus A Not detected Normal NOT DETECTED [facility] Comment on above: Performed By: #### P ERSMR #### [facility] [address] [place] [address] Dr. Deepika Terrell Salmonella Not detected Normal NOT DETECTED [facility] Comment on above: Performed By: #### P ERSMR #### [facility] [address] [place] [address] Dr. Deepika Terrell Sapovirus Not detected Normal NOT DETECTED [facility] Comment on above: Performed By: #### P ERSMR #### [facility] [address] [place] [address] Dr. Deepika Terrell STEC Not detected Normal NOT DETECTED [facility] Comment on above: Performed By: #### P ERSMR #### [facility] [address] [place] [address] Dr. Deepika Terrell Vibrio Not detected Normal NOT DETECTED [facility] Comment on above: Performed By: #### P ERSMR #### [facility] [address] [place] [address] Dr. Deepika Terrell Vibrio Cholera Not detected Normal NOT DETECTED [facility] Comment on above: Performed By: #### P ERSMR #### [facility] [address] [place] [address] Dr. Deepika Terrell Y. Enterocolitica Not detected Normal NOT DETECTED [facility] Comment on above: Performed By: #### P ERSMR #### [facility] [address] [place] [address] Dr. Deepika Terrell PROF CHEM 8 (BAS METB)on Anion gap [Moles/Vol] 13.9 mmol/L Normal [facility] Comment on above: Performed By: #### P ERSMR #### [facility] [address] [address] [address] Deepika Terrell Calcium [Mass/Vol] 8.9 mg/dL Normal 8.5-10.1 [facility] Comment on above: Performed By: #### P ERSMR #### [facility] [address] [address] [address] Deepika Terrell Chloride [Moles/Vol] 104 mmol/L Normal 98-107 [facility] Comment on above: Performed By: #### P ERSMR #### [facility] [address] [place] [address] Dr. Deepkia Terrell CO2 [Moles/Vol] 26.3 mmol/L Normal 21.0-32.0 [facility] Comment on above: Performed By: #### P ERSMR #### [facility] [address] [address] [address] Deepika Terrell Creatinine [Mass/Vol] 1.70 mg/dL Critically high 0.70-1.30 [facility] Comment on above: Performed By: #### P ERSMR #### [facility] [address] [place] [address] Dr. Deepika Terrell EGFR-AF MACANESE 47 mL/min/1.73m2 Critically low >=60 [facility] Comment on above: Performed By: #### P ERSMR #### [facility] [address] [address] [address] Deepika Terrell EGFR-NON AF MACANESE 38 mL/min/1.73m2 Critically low >=60 [facility] Comment on above: Performed By: #### P ERSMR #### [facility] [address] [place] [address] Dr. Deepika Terrell Glucose [Mass/Vol] 62 mg/dL Critically low 74-106 [facility] Comment on above: Performed By: #### P ERSMR #### [facility] [address] [address] [address] Deepika Terrell Potassium [Moles/Vol] 4.2 mmol/L Normal 3.5-5.1 [facility] Comment on above: Performed By: #### P ERSMR #### [facility] [address] [address] [address] Deepika Terrell Sodium [Moles/Vol] 140 mmol/L Normal 136-145 [facility] Comment on above: Performed By: #### P ERSMR #### [facility] [address] [address] [address] Deepika Terrell Urea nitrogen [Mass/Vol] 34.0 mg/dL Critically high 7.0-18.0 [facility] Comment on above: Performed By: #### P ERSMR #### [facility] [address] [place] [address] Dr. Deepika Terrell Urea nitrogen/Creatinin e [Mass ratio] 20.0 mg/mg Normal [facility] Comment on above: Performed By: #### P ERSMR #### [facility] [address] [place] [address] Dr. Deepika Terrell ECHOCARDIO M/2D COMPLETEon 1 06-02-2021 ECHOCARDIO M/2D COMPLETE Patient: MASON NATARAJAN Exam Date: 04/01/2022 : 1935 Gender:M Ordering : ARNEL BAEZA Admission #: [id number] Family : Order #: [id number] CLICK HERE TO VIEW EXAM ECHOCARDIOGRAM REPORT [...] M.D. on 04/09/2022 at 08:52 Normal [facility] CBC AUTO DIFFon 02-05-2022 BASO # 0.1 103/ul Normal 0.0-0.1 [facility] Comment on above: Performed By: #### C BC #### [facility] [address] [place] [address] Dr. Deepika Terrell Basophils/100 WBC (Bld) 0.5 % Normal 0.2-2.0 [facility] Comment on above: Performed By: #### C BC #### [facility] [address] [place] [address] Dr. Deepika Terrell EO # 0.3 103/ul Normal 0.0-0.7 [facility] Comment on above: Performed By: #### C BC #### [facility] [address] [place] [address] Dr. Deepika Terrell Eosinophils/100 WBC (Bld) 3.3 % Normal 0.9-7.0 [facility] Comment on above: Performed By: #### C BC #### [facility] [address] [place] [address] Dr. Deepika Terrell Erythrocyte distribution width (RBC) [Ratio] 14.0 % Normal 11.0-15.0 [facility] Comment on above: Performed By: #### C BC #### [facility] [address] [place] [address] Dr. Deepika Terrell Hematocrit (Bld) [Volume fraction] 41.2 % Critically low 42.0-54.0 [facility] Comment on above: Performed By: #### C BC #### [facility] [address] [address] [address] Deepika Terrell Hemoglobin (Bld) [Mass/Vol] 13.4 g/dL Critically low 14.0-18.0 [facility] Comment on above: Performed By: #### C BC #### [facility] [address] [address] [address] Deepika Terrell IG # 0.04 10e3/ul Critically high 0.00-0.03 [facility] Comment on above: Performed By: #### C BC #### [facility] [address] [address] [address] Deepika Terrell IG % 0.4 % Normal 0.0-0.5 [facility] Comment on above: Performed By: #### C BC #### [facility] [address] [address] [address] Deepika Terrell LYMPH # 3.4 103/ul Normal 1.2-3.8 [facility] Comment on above: Performed By: #### C BC #### [facility] [address] [place] [address] Dr. Deepika Terrell Lymphocytes/100 WBC (Bld) 36.2 % Normal 20.5-60.0 [facility] Comment on above: Performed By: #### C BC #### [facility] [address] [place] [address] Dr. Deepika Terrell MANUAL DIFF REQ NO Normal [facility] Comment on above: Performed By: #### C BC #### [facility] [address] [address] [address] Deepika Terrell MCH (RBC) [Entitic mass] 30.9 pg Normal 25.9-34.0 [facility] Comment on above: Performed By: #### C BC #### [facility] [address] [address] [address] Deepika Terrell MCHC (RBC) [Mass/Vol] 32.5 g/dL Normal 29.9-35.[address] [facility] Comment on above: Performed By: #### C BC #### [facility] [address] [address] [address] Deepika Terrell MCV (RBC) [Entitic vol] 94.9 fL Critically high 80.0-94.0 [facility] Comment on above: Performed By: #### C BC #### [facility] [address] [address] [address] Deepika Terrell MONO # 0.9 103/ul Critically high 0.3-0.8 [facility] Comment on above: Performed By: #### C BC #### [facility] [address] [address] [address] Deepika Terrell Monocytes/100 WBC (Bld) 9.9 % Normal 1.7-12.0 [facility] Comment on above: Performed By: #### C BC #### [facility] [address] [place] [address] Dr. Deepika Terrell NEUT # 4.7 103/ul Normal 1.4-6.5 [facility] Comment on above: Performed By: #### C BC #### [facility] [address] [place] [address] Dr. Deepika Terrell Neutrophils/100 WBC (Bld) 49.7 % Normal 43.0-75.0 [facility] Comment on above: Performed By: #### C BC #### [facility] [address] [place] [address] Dr. Deepika Trerell Platelet mean volume (Bld) [Entitic vol] 10.1 fL Normal 9.5-13.[address] [facility] Comment on above: Performed By: #### C BC #### [facility] [address] [place] [address] Dr. Deepika Terrell PLT 290 103/ul Normal 150-[address] [facility] Comment on above: Performed By: #### C BC #### [facility] [address] [address] [address] Deepika Terrell RBC 4.34 106/ul Critically low 4.70-6.10 [facility] Comment on above: Performed By: #### C BC #### [facility] [address] [address] [address] Deepika Terrell WBC 9.4 103/ul Normal 4.0-11.0 [facility] Comment on above: Performed By: #### C BC #### [facility] [address] [place] [address] Dr. Deepika Terrell FREE T3on 02-05-2022 FREE T3 1.83 pg/mlL Critically low 2.18-3.98 [facility] Comment on above: Performed By: #### C PEPT #### [facility] [address] [place] [address] Dr. Deepika Terrell GLYCOHEMOGLOBIN A1Con 2021 ADA RECOMMENDATION SEE BELOW Normal [facility] Comment on above: Result Comment: ADA RECOMMENDED LIMIT 4.0 - 6.0 ADA THERAPEUTIC TARGET < 7.0 ACTION SUGGESTED > 7.0 Performed By: #### A 1C #### [facility] [address] [place] [address] Dr. Deepika Terrell Glucose [Mass/Vol] 114 mg/dL Normal [facility] Comment on above: Performed By: #### A 1C #### [facility] [address] [place] [address] Dr. Deepika Terrell HbA1c (Bld) [Mass fraction] 5.6 % Normal 4.5-6.2 [facility] Comment on above: Performed By: #### A 1C #### [facility] [address] [place] [address] Dr. Deepika Terrell LIPID PROFILEon 02-05-2022 CHOL-HDL RATIO NORM SEE BELOW Normal [facility] Comment on above: Result Comment: 3.3 - 4.4 LOW RISK 4.4 - 7.1 AVERAGE RISK 7.1 - 11.0 MODERATE RISK >11.0 HIGH RISK Performed By: #### C PEPT #### [facility] [address] [place] [address] Dr. Deepika Terrell Cholesterol [Mass/Vol] 187 mg/dL Normal <=200 [facility] Comment on above: Performed By: #### C PEPT #### [facility] [address] [place] [address] Dr. Deepika Terrell Cholesterol in HDL [Mass/Vol] 49 mg/dL Normal 40-60 [facility] Comment on above: Performed By: #### C PEPT #### [facility] [address] [place] [address] Dr. Deepika Terrell Cholesterol in LDL [Mass/Vol] 123.8 mg/dL Normal [facility] Comment on above: Performed By: #### C PEPT #### [facility] [address] [place] [address] Dr. Deepika Terrell Cholesterol.total/ Cholesterol in HDL [Mass ratio] 3.8 {ratio} Normal [facility] Comment on above: Performed By: #### C PEPT #### [facility] [address] [place] [address] Dr. Deepika Terrell HDL NORMAL > or = 60 mg/dl - LO W CARDIOVASCULAR RISK <40 mg/dl - HIGH CARDIOVASCULAR RISK Normal [facility] Comment on above: Performed By: #### C PEPT #### [facility] [address] [place] [address] Dr. Deepika Terrell LDL CALC NORMAL SEE BELOW Normal [facility] Comment on above: Result Comment: <100 mg/dl OPTIMAL 100 - 129 mg/dl NEAR OR ABOVE OPTIMAL 130 - 159 mg/dl BORDERLINE HIGH 160 - 189 mg/dl HIGH >190 mg/dl VERY HIGH Performed By: #### C PEPT #### [facility] [address] [place] [address] Dr. Deepika Terrell Triglyceride [Mass/Vol] 71 mg/dL Normal <=150 [facility] Comment on above: Performed By: #### C PEPT #### [facility] [address] [place] [address] Dr. Deepika Terrell VLDL CALC 14.2 mg/dL Normal [facility] Comment on above: Performed By: #### C PEPT #### [facility] [address] [place] [address] Dr. Deepika Terrell PROF 14(COMP METB)on 022 Albumin [Mass/Vol] 4.0 g/dL Normal 3.4-5.0 [facility] Comment on above: Performed By: #### C PEPT #### [facility] [address] [place] [address] Dr. Deepika Terrell Albumin/Globulin [Mass ratio] 1.2 {ratio} Normal [facility] Comment on above: Performed By: #### C PEPT #### [facility] [address] [place] [address] Dr. Deepika Terrell ALP [Catalytic activity/Vol] 61 U/L Normal 46-116 [facility] Comment on above: Performed By: #### C PEPT #### [facility] [address] [place] [address] Dr. Deepika Terrell ALT [Catalytic activity/Vol] 38 U/L Normal 16-63 [facility] Comment on above: Performed By: #### C PEPT #### [facility] [address] [place] [address] Dr. Deepika Terrell Anion gap [Moles/Vol] 8.1 mmol/L Normal [facility] Comment on above: Performed By: #### C PEPT #### [facility] [address] [place] [address] Dr. Deepika Terrell AST [Catalytic activity/Vol] 19 U/L Normal 15-37 [facility] Comment on above: Performed By: #### C PEPT #### [facility] [address] [place] [address] Dr. Deepika Terrell Bilirubin [Mass/Vol] 0.4 mg/dL Normal 0.2-1.0 [facility] Comment on above: Performed By: #### C PEPT #### [facility] [address] [place] [address] Dr. Deepika Terrell Calcium [Mass/Vol] 9.4 mg/dL Normal 8.5-10.1 [facility] Comment on above: Performed By: #### C PEPT #### [facility] [address] [place] [address] Dr. Deepika Terrell Chloride [Moles/Vol] 104 mmol/L Normal 98-107 [facility] Comment on above: Performed By: #### C PEPT #### [facility] [address] [place] [address] Dr. Deepika Terrell CO2 [Moles/Vol] 32.6 mmol/L Critically high 21.0-32.0 [facility] Comment on above: Performed By: #### C PEPT #### [facility] [address] [place] [address] Dr. Deepika Terrell Creatinine [Mass/Vol] 1.63 mg/dL Critically high 0.70-1.30 [facility] Comment on above: Performed By: #### C PEPT #### [facility] [address] [place] [address] Dr. Deepika Terrell EGFR-AF MACANESE 49 mL/min/1.73m2 Critically low >=60 [facility] Comment on above: Performed By: #### C PEPT #### [facility] [address] [place] [address] Dr. Deepika Terrell EGFR-NON AF MACANESE 40 mL/min/1.73m2 Critically low >=60 [facility] Comment on above: Performed By: #### C PEPT #### [facility] [address] [place] [address] Dr. Deepika Terrell Globulin (S) [Mass/Vol] 3.3 g/dL Normal [facility] Comment on above: Performed By: #### C PEPT #### [facility] [address] [place] [address] Dr. Deepika Terrell Glucose [Mass/Vol] 127 mg/dL Critically high 74-106 [facility] Comment on above: Performed By: #### C PEPT #### [facility] [address] [place] [address] Dr. Deepika Terrell Potassium [Moles/Vol] 4.7 mmol/L Normal 3.5-5.1 [facility] Comment on above: Performed By: #### C PEPT #### [facility] [address] [place] [address] Dr. Deepika Terrell Protein [Mass/Vol] 7.3 g/dL Normal 6.4-8.2 [facility] Comment on above: Performed By: #### C PEPT #### [facility] [address] [place] [address] Dr. Deepika Terrell Sodium [Moles/Vol] 140 mmol/L Normal 136-145 [facility] Comment on above: Performed By: #### C PEPT #### [facility] [address] [place] [address] Dr. Deepika Terrell Urea nitrogen [Mass/Vol] 37.0 mg/dL Critically high 7.0-18.0 [facility] Comment on above: Performed By: #### C PEPT #### [facility] [address] [place] [address] Dr. Deepika Terrell Urea nitrogen/Creatinin e [Mass ratio] 22.7 mg/mg Normal [facility] Comment on above: Performed By: #### C PEPT #### [facility] [address] [place] [address] Dr. Deepika Terrell T4on 02-05-2022 T4 [Mass/Vol] 8.40 ug/dL Normal 4.50-12.10 The [facility] Comment on above: Performed By: #### C PEPT #### [facility] [address] [place] [address] Dr. Deepika Terrell TSHon 02-05-2022 TSH 1.762 uIU/mL Normal 0.358-3.740 [facility] Comment on above: Performed By: #### C PEPT #### [facility] [address] [place] [address] Dr. Deepika Terrell US CAMILLA DOP LEG [...] GEOVANY ESPINAL Date: 2021-12-26 13:02 Normal [facility] PROF CHEM 8 (BAS METB)on Anion gap [Moles/Vol] 15.1 mmol/L Normal [facility] Comment on above: Performed By: #### B MP #### [facility] [address] [address] [address] Deepika Terrell Calcium [Mass/Vol] 9.2 mg/dL Normal 8.5-10.1 [facility] Comment on above: Performed By: #### B MP #### [facility] [address] [address] [address] Deepika Terrell Chloride [Moles/Vol] 102 mmol/L Normal 98-107 [facility] Comment on above: Performed By: #### B MP #### [facility] [address] [address] [address] Deepika Terrell CO2 [Moles/Vol] 25.8 mmol/L Normal 21.0-32.0 [facility] Comment on above: Performed By: #### B MP #### [facility] [address] [address] [address] Deepika Terrell Creatinine [Mass/Vol] 1.70 mg/dL Critically high 0.70-1.30 [facility] Comment on above: Performed By: #### B MP #### [facility] [address] [address] [address] Deepika Terrell EGFR-AF MACANESE 47 mL/min/1.73m2 Critically low >=60 [facility] Comment on above: Performed By: #### B MP #### [facility] [address] [address] [address] Deepika Terrell EGFR-NON AF MACANESE 38 mL/min/1.73m2 Critically low >=[address] [facility] Comment on above: Performed By: #### B MP #### [facility] [address] [address] [address] Deepika Terrell Glucose [Mass/Vol] 75 mg/dL Normal 74-106 [facility] Comment on above: Performed By: #### B MP #### [facility] [address] [address] [address] Deepika Terrell Potassium [Moles/Vol] 4.9 mmol/L Normal 3.5-5.1 [facility] Comment on above: Performed By: #### B MP #### [facility] [address] [address] [address] Deepika Terrell Sodium [Moles/Vol] 138 mmol/L Normal 136-145 [facility] Comment on above: Performed By: #### B MP #### [facility] [address] [address] [address] Deepika Terrell Urea nitrogen [Mass/Vol] 45.0 mg/dL Critically high 7.0-18.0 [facility] Comment on above: Performed By: #### B MP #### [facility] [address] [address] [address] Deepika Terrell Urea nitrogen/Creatinin e [Mass ratio] 26.5 mg/mg Normal [facility] Comment on above: Performed By: #### B MP #### [facility] [address] [address] [address] Deepika Terrell PROF CHEM 8 (BAS METB)on Anion gap [Moles/Vol] 14.2 mmol/L Normal [facility] Comment on above: Performed By: #### B MP #### [facility] [address] [address] [address] Deepika Terrell Calcium [Mass/Vol] 9.4 mg/dL Normal 8.5-10.1 [facility] Comment on above: Performed By: #### B MP #### [facility] [address] [address] [address] Deepika Terrell Chloride [Moles/Vol] 106 mmol/L Normal 98-[address] [facility] Comment on above: Performed By: #### B MP #### [facility] [address] [address] [address] Deepika Terrell CO2 [Moles/Vol] 25.1 mmol/L Normal 21.0-32.0 [facility] Comment on above: Performed By: #### B MP #### [facility] [address] [address] [address] Deepika Terrell Creatinine [Mass/Vol] 1.72 mg/dL Critically high 0.70-1.30 [facility] Comment on above: Performed By: #### B MP #### [facility] [address] [address] [address] Deepika Terrell EGFR-AF MACANESE 46 mL/min/1.73m2 Critically low >=60 [facility] Comment on above: Performed By: #### B MP #### [facility] [address] [address] [address] Deepika Terrell EGFR-NON AF MACANESE 38 mL/min/1.73m2 Critically low >=60 [facility] Comment on above: Performed By: #### B MP #### [facility] [address] [address] [address] Deepika Terrell Glucose [Mass/Vol] 51 mg/dL Critically low 74-106 [facility] Comment on above: Performed By: #### B MP #### [facility] [address] [address] [address] Deepika Terrell Potassium [Moles/Vol] 6.2 mmol/L Critically high 3.5-5.1 [facility] Comment on above: Performed By: #### B MP #### [facility] [address] [address] [address] Deepika Terrell Sodium [Moles/Vol] 138 mmol/L Normal 136-145 [facility] Comment on above: Performed By: #### B MP #### [facility] [address] [address] [address] Deepika Terrell Urea nitrogen [Mass/Vol] 42.0 mg/dL Critically high 7.0-18.0 [facility] Comment on above: Performed By: #### B MP #### [facility] [address] [address] [address] Deepika Terrell Urea nitrogen/Creatinin e [Mass ratio] 24.4 mg/mg Normal [facility] Comment on above: Performed By: #### B MP #### [facility] [address] [place], [place] [address] Dr. Deepika Terrell MRI LSPINE WO CONon [...] by: KURT DON Date: 2021-09-14 14:24 Normal [facility] XR LSPINE MIN 4 VIEWSon 06-0 [...] KURT DON Date: 2021-09-10 20:46 Normal [address] [facility] GLYCOHEMOGLOBIN A1Con 2021 ADA RECOMMENDATION SEE BELOW Normal [facility] Comment on above: Result Comment: ADA RECOMMENDED LIMIT 4.0 - 6.0 ADA THERAPEUTIC TARGET < 7.0 ACTION SUGGESTED > 7.0 Performed By: #### C PEPT #### [facility] [address] [place] [address] Dr. Deepika Terrell Glucose [Mass/Vol] 131 mg/dL Normal [facility] Comment on above: Performed By: #### C PEPT #### [facility] [address] [address] [address] Deepika Terrell HbA1c (Bld) [Mass fraction] 6.2 % Normal 4.5-6.2 [facility] Comment on above: Performed By: #### C PEPT #### [facility] [address] [place] [address] Dr. Deepika Terrell Blood Urea Nitrogenon 2020 Urea nitrogen [Mass/Vol] 23 mg/dL Normal 9-23 [facility] Comment on above: Performed By: #### B UN, CREAT #### [address] abdomen pelvis w conon CT abdomen pelvis w [facility] [address] [place] [address] CT Scan Report Signed Patient: Mason Natarajan MR#: [id number] 47 : 1935 Acct:[id number] Age/Sex: 85 / M ADM Date: 10/26/20 Loc: Room: Type: [facility] Attending Dr: Srinivasan Beaulieu MD Ordering Provider: Srinivasan Beaulieu MD Date of Service: 07/22/21 CT/CT abdomen pelvis w con: Diarrhea;Weight loss [...] Eugene Cummings M.D.10/26/2020 4:54 PM Dictation Location: [place] [address] Transcribed By: [facility] 10/26/20 2709 Dictated By: Eguene Cummings II, MD 10/26/20 2725 Signed By: 10/26/20 4042 Normal [facility] Creatinineon 10-26-2020 Creatinine [Mass/Vol] 1.44 mg/dL High 0.64-1.27 [facility] Comment on above: Performed By: #### B AIDA, CREAT #### [facility] [address] [place] [address] [place] Creatinine Clr Calc Pharmacy 39.48 [facility] Comment on above: Result Comment: PERF ORMED BY: [place] [address] PATHOLOGIST BALANCE CLERK ANTHONY WEAVER M.D. Performed By: #### B UN, CREAT #### [facility] [address] [place] [address] Estimated GFR ( Zahida 56 [facility] Comment on above: Result Comment: GFR estimated reference range: According to KDOQI guidelines, <60 ml/min/1.73m2 is sufficient to diagnose a patient with chronic kidney disease. Performed By: #### B UN, CREAT #### [address] Estimated GFR (Non- Am 47 [facility] Comment on above: Performed By: #### B UN, CREAT #### [address] Glucose Poct Glucometerson 0 10-26-2020 Glucose [Mass/Vol] 100 mg/dL [facility] Comment on above: Result Comment: [facility] Glucose Reference Range is dependent on time and content of last meal. Glucose of more than 200 mg/dL in a nonstressed, ambulatory subject supports the diagnosis of Diabetes Mellitus. PERFORMED BY: [place] [address] PATHOLOGIST BALANCE CLERK ANTHONY WEAVER M.D. Performed By: #### G MATTLS #### Point of Care testing , Junior 10-26-2020 L ------- Specimen: [id number] Received: 10/26/20 Status: SOLEDAD Riley Num: [id number] Spec Type: Surgical Subm Dr: Srinivasan Beaulieu MD Tissues: A Colon Biopsy (LEFT COLON BX) Procedures: HE Stain/2, Gross/Micro L4 Patient Age/Sex Location Account Attending Physician Mason Natarajan/Raissa [id number] Srinivasan Beaulieu MD SPEC NUM: [id number] RECD: 10/26/20 STATUS: SOLEDAD RILEY NUM: [id number] AALIYAH: 10/26/20- SUBM DR: Srinivasan Beaulieu MD ENTERED: 10/26/20-[address]: SPEC TYPE: Surgical DEPT: S ENTERED BY: [id number] RECV BY: [id number] ORDERED: HE Stain/2, Gross/Micro L4 ORDERED: HE [...] microscopic findings support the above pathologic diagnosis. [id number] Specimen: [id number] Received: 10/26/20 Status: SOLEDAD Riley Num: [id number] Spec Type: Surgical Subm Dr: Srinivasan Beaulieu MD Tissues: A Colon Biopsy (LEFT COLON BX) Procedures: HE Stain/2, Gross/Micro L4 Patient: Mason Natarajan [id number] (Continued) Signed (signature on file) Anthony Weaver MD 10/27/20 1718 [facility] History and Physicalon 01-15 HIM IP Note OR [employer] [facility] Surgical Pathologyon 017 Surgical Pathology (NOTE)[id number] LABORATORIESCONSULTING PATHOLOGISTS CORPORATIONANATOMIC [id number] [place], [place] [id number] Fax: SURGICAL PATHOLOGY CONSULTATIONPatient Name: Amy NATARAJAN Rec: [id number] Number: [id number]: 01/15/2017Received: 01/15/2017Reported: 01/16/2017 08:36-- Diagnosis --INTRAOCULAR LENS: GROSS ONLY.Kan Allred M.D.Electronically Signed Out tb04/16/11Clinical InformationPre-op Diagnosis: DISLOCATED IOL LEFT EYE Operative Findings: IOL GROSS ONLYOperation Performed: VITRECTOMY 25 GAUGE LENSECTOMY, KENALOGINJECTIONSource of Specimen1: IOL - GROSS ONLYGross Description MASON NATARAJAN IOL GROSS ONLY 0.6 cm long x < 0.1 cm in diameterclear translucent lens with two tags. Gross only. Normal [facility] Vital Signs Date Time Vital Sign Value Performing Clinician Facility 12-02-2024 08:33-0400 Body height 172.7 cm Erika PEPE Work Phone: [facility] 12-02-2024 08:33-0400 Body mass index (BMI) [Ratio] 24.33 kg/m2 Erika Dotson APRNRuck.usTRANSFORMATION COACH Work Phone: [facility] 12-02-2024 08:33-0400 Body weight 72.58 kg Erika Dotson APRNRuck.usMURALI Work Phone: [facility] 12-02-2024 08:33-0400 Diastolic blood pressure 51 mm[Hg] Erika Dotson APRNRuck.usTRANSFORMATION COACH Work Phone: [facility] 12-02-2024 08:33-0400 Heart rate 54 /min Erika Perne RECREATION TECHNICIAN-TRANSFORMATION COACH Work Phone: [facility] [employer] [facility] 12-02-2024 08:33-0400 SaO2% (BldA) [Mass fraction] 97 % Erika Perne RECREATION TECHNICIAN-TRANSFORMATION COACH Work Phone: [facility] 12-02-2024 08:33-0400 Systolic blood pressure 161 mm[Hg] Erika Perne RECREATION TECHNICIAN-TRANSFORMATION COACH Work Phone: [facility] 11-25-2024 08:40-0400 Body mass index (BMI) [Ratio] 24.78 kg/m2 Erika Perne RECREATION TECHNICIAN-TRANSFORMATION COACH Work Phone: [facility] 11-25-2024 08:40-0400 Body weight 73.94 kg Erika Perne RECREATION TECHNICIAN-TRANSFORMATION COACH Work Phone: [facility] 11-25-2024 08:40-0400 Diastolic blood pressure 68 mm[Hg] Erika Perne RECREATION TECHNICIAN-TRANSFORMATION COACH Work Phone: [facility] [employer] [facility] 11-25-2024 08:40-0400 Heart rate 50 /min Erika Perne RECREATION TECHNICIAN-TRANSFORMATION COACH Work Phone: [facility] 11-25-2024 08:40-0400 Systolic blood pressure 176 mm[Hg] Erika Perne RECREATION TECHNICIAN-TRANSFORMATION COACH Work Phone: [facility] 08-03-2024 15:38-0400 Body height 172.72 cm [facility] 08-03-2024 15:38-0400 Body mass index (BMI) [Ratio] 25.4 kg/m2 [facility] 08-03-2024 15:38-0400 Body temperature 97.7 [degF] [facility] 08-03-2024 15:38-0400 Body weight 75.92 kg [facility] 08-03-2024 15:38-0400 Diastolic blood pressure 52 mm[Hg] [facility] 08-03-2024 15:38-0400 Heart rate 68 /min [facility] 08-03-2024 15:38-0400 Respiratory rate 16 /min [facility] 08-03-2024 15:38-0400 SaO2% (BldA) [Mass fraction] 94 % [facility] 08-03-2024 15:38-0400 Systolic blood pressure 126 mm[Hg] [facility] 05-11-2024 09:39-0500 Body height 172.72 cm [facility] 05-11-2024 09:39-0500 Body mass index (BMI) [Ratio] 35.9 kg/m2 [facility] 05-11-2024 09:39-0500 Body temperature 96.8 [degF] [facility] 05-11-2024 09:39-0500 Body weight 107.2 kg [facility] 05-11-2024 09:39-0500 Diastolic blood pressure 55 mm[Hg] [facility] 05-11-2024 09:39-0500 Heart rate 52 /min [facility] 05-11-2024 09:39-0500 Respiratory rate 16 /min [facility] 05-11-2024 09:39-0500 SaO2% (BldA) [Mass fraction] 98 % [facility] 05-11-2024 09:39-0500 Systolic blood pressure 159 mm[Hg] [facility] 11-13-2023 09:33-0400 Diastolic blood pressure 82 mm[Hg] Linda Montelongo MD Work Phone: [facility] 11-13-2023 09:33-0400 Heart rate 64 /min Linda Montelongo MD Work Phone: [facility] 11-13-2023 09:33-0400 Systolic blood pressure 156 mm[Hg] Linda Montelongo MD Work Phone: [facility] 11-13-2023 09:18-0400 Body height 172.7 cm Linda Montelongo MD Work Phone: [facility] 11-13-2023 09:18-0400 Body mass index (BMI) [Ratio] 27.67 kg/m2 Linda [facility]elongo MD [facility] 11-13-2023 09:18-0400 Body weight 82.56 kg Linda Montelongo MD Work Phone: [facility] [employer] 11-13-2023 09:18-0400 SaO2% (BldA) [Mass fraction] 94 % Linda Montelongo MD [facility] 11-26-2022 09:45-0400 Body height 172.72 cm Chevy Robins Other [employer] Other 11-26-2022 09:45-0400 Body mass index (BMI) [Ratio] 24.63 kg/m2 Chevy Straussotilia Other [employer] Other 11-26-2022 09:45-0400 Body weight 73.48 kg Chevy Straussotilia Other [employer] Other 11-26-2022 09:45-0400 Diastolic blood pressure 61 mm[Hg] Chevy Straussy Other [employer] Other 11-26-2022 09:45-0400 Systolic blood pressure 135 mm[Hg] Chevy Straussy Other [employer] Other 12-27-2021 14:00-0400 Body height 172.72 cm Chevy Robins Other [employer] Other 12-27-2021 14:00-0400 Body mass index (BMI) [Ratio] 28.43 kg/m2 Chvey Straussotilia Other [employer] Other 12-27-2021 14:00-0400 Body weight 84.82 kg Chevy Robins Other [facility] [employer] Other 12-27-2021 14:00-0400 Diastolic blood pressure 75 mm[Hg] Chevy Robins Other [facility] [employer] Other 12-27-2021 14:00-0400 Systolic blood pressure 171 mm[Hg] Chevy Straussy Other [facility] [employer] Other 11-27-2021 09:51-0400 Diastolic blood pressure 71 mm[Hg] Darien COOK [facility] [place] 11-27-2021 09:51-0400 Mean blood pressure 97 mm[Hg] Darien COOK [facility] 11-27-2021 09:51-0400 Respiratory rate 49 /min Darien COOK [facility] 11-27-2021 09:51-0400 Systolic blood pressure 150 mm[Hg] Darien COOK [facility] 11-27-2021 09:39-0400 Blood Pressure Location Darien COOK [facility] 11-27-2021 09:39-0400 Diastolic blood pressure 67 mm[Hg] Darien COOK [facility] 11-27-2021 09:39-0400 Heart rate 45 /min Darien COOK [facility] [place] 11-27-2021 09:39-0400 Systolic blood pressure 168 mm[Hg] Darien REYNOLDS [facility] 12-27-2020 14:00-0400 Body height 172.72 cm Chevy Robins Other [employer] Other 12-27-2020 14:00-0400 Body mass index (BMI) [Ratio] 28.13 kg/m2 Chevy Robins Other [employer] Other 12-27-2020 14:00-0400 Body weight 83.92 kg Chevy Robins Other [employer] Other Encounters Encounter Date Encounter Type Care Provider Facility Start: 01-05-2025 End: 01-05-2025 ambulatory [facility] Start: 12-02-2024 End: 12-02-2024 Office outpatient visit 15 minutes Erika Dotson RECREATION TECHNICIAN-TRANSFORMATION COACH [facility] Comment on above: Bilateral carotid ar linnea stenosis without cerebral infarction (Primary Dx) Start: 12-02-2024 End: 12-02-2024 ambulatory [facility] Start: 12-01-2024 End: 12-01-2024 [facility] Start: 11-25-2024 End: 11-25-2024 Office outpatient visit 10 minutes Erika Dotson RECREATION TECHNICIAN-TRANSFORMATION COACH [facility] Comment on above: Bilateral carotid ar linnea stenosis without cerebral infarction (Primary Dx) Start: 11-25-2024 End: 11-25-2024 Orders Only Shannan Urban [facility] johnna Newton Comment on above: Bilateral carotid ar linnea stenosis without cerebral infarction (Primary Dx); Occlusion and stenosis of unspecified carotid artery Occlusion and stenos is of unspecified carotid artery; Bilateral carotid artery stenosis without cerebral infarction Start: 11-15-2024 End: 11-16-2024 Refill Linda Montelongo MD Work Phone: [facility] Comment on above: Occlusion and stenos is of unspecified carotid artery; Bilateral carotid artery stenosis without cerebral infarction Start: 08-03-2024 End: 08-03-2024 ambulatory [facility] Work Phone: Start: 08-03-2024 End: 08-03-2024 Patient encounter procedure [facility] Ka[facility] Work Phone: Start: 07-26-2024 Non-patient / Non-visit [facility] Work Phone: Start: 07-13-2024 End: 07-13-2024 ambulatory [facility] Start: 05-11-2024 End: 05-11-2024 Patient encounter procedure [facility] Kaiden Work Phone: Start: 04-30-2024 End: 04-30-2024 ambulatory [facility] Start: 11-13-2023 End: 11-13-2023 Office outpatient new 45 minutes Linda Montelongo MD Work Phone: [facility] Comment on above: Bilateral carotid ar linnea stenosis without cerebral infarction (Primary Dx); Occlusion and stenosis of unspecified carotid artery Start: 11-11-2023 ambulatory Darien REYNOLDS Facility :[facility] [place] Start: 06-16-2023 End: 06-17-2023 ambulatory Darien REYNOLDS Facility:[facility] [place] Start: 06-16-2023 End: 06-16-2023 Patient encounter procedure Darien REYNOLDS [facility] Start: 11-26-2022 End: 11-26-2022 ambulatory Chevy Robins Other [employer] Other Start: 11-26-2022 Patient encounter procedure Chevy Robins [facility] Start: 08-13-2022 End: 08-13-[address] ERIN BERG . Facility:[facility] Start: 08-12-2022 ambulatory Alli MUKHERJEE Facility : [place] Start: 08-09-2022 End: 08-10-[address] ERIN [...] Facility:[facility] Start: 04-01-2022 End: 04-02-2022 ambulatory ARNEL BAZEA Facility:[facility] Start: 02-05-2022 End: 02-06-[address] ERIN BERG . Facility:[facility] Start: 12-27-2021 End: 12-27-2021 ambulatory Chevy Robins Other [employer] Other Start: 12-27-2021 Patient encounter procedure Chevy Robins [facility] Start: 12-26-2021 End: 12-27-[address] ERIN BERG . Facility:[facility] Start: 11-27-2021 End: 11-27-2021 Patient encounter procedure Darien REYNOLDS [facility] Start: 10-18-2021 End: 10-26-[address] DOCTOR POON Facility:[facility] Start: 09-21-2021 End: 09-22-2021 ambulatory MELYSSA JOYA Facility:[facility] Start: 09-18-2021 End: 09-19-2021 ambulatory MELYSSA JOYA Facility:[facility] Start: 09-14-2021 End: 09-15-[address] ERIN BERG . Facility:[facility] Start: 09-10-2021 End: 09-11-[address] ERIN BERG . Facility:[facility] Start: 08-21-2021 End: 08-22-2021 ambulatory NONE LISTED REQUEST Facility:[facility] Start: 12-27-2020 Patient encounter procedure Chevy Robins [facility] Start: 01-21-2017 End: 01-22-2017 Ambulatory DEFAULT PHYSICIAN Facility:[facility] Start: 01-17-2017 End: 01-18-2017 Ambulatory DEFAULT PHYSICIAN Facility:[facility] Start: 01-15-2017 End: 01-15-2017 Ambulatory CHET NESBITT [facility] Procedures Date Procedure Procedure Detail Performing Clinician Start: 11-25-2024 Follow-up visit Follow-up ERIKA DOTSON Start: 02-05-[address] CHRIS BERG . Comment on above: Performed By: #### C PEPT #### [facility] [address] [place] [address] Dr. Deepika Terrell Start: 12-04-2020 Transurethral water vapor ablation of prostate Darien REYNOLDS Start: 10-12-2020 Cystoscopy Darien DUARTE Start: 01-15-2017 SURGICAL PATHOLOGY VAHN MAGDIEL NESBITT Start: 01-15-2017 POC GLUCOSE FINGERSTICK CHET NESBITT Start: 01-15-2017 DISCHARGE PATIENT DYLAN NESBITT Start: 01-15-2017 SURGICAL PATHOLOGY VAFARTUN NESBITT Start: 01-15-2017 ASSESS CHETJONO NAJERA N Start: 01-15-2017 BEDREST CHET NAJERA N Start: 01-15-2017 Continuous pulse oximetry CHETJONO NESBITT Start: 01-15-2017 INITIATE OXYGEN THER APY [...] C ALC. ANION GAP CHET NESBITT Appendectomy Variable Cataract (disorder) Variable Cataract (morphologi c abnormality) Variable Colonoscopy Variable Hernia of abdominal cavity (disorder) Variable Plan of Treatment Date Care Activity Detail Author Start: 12-02-2025 End: 12-02-2025 US Carotid arteries - bilateral Vas carotid duplex bilateral Vascular Ultrasound Routine Bilateral carotid artery stenosis without cerebral infarction Expected: 12/02/2025 (Approximate), Expires: 12/02/2025 [employer] Phone: Comment on above: Expected: 12/02/2025 (Approximate), Expires: 12/02/2025 Start: 11-25-2025 Tobacco Screening Tobacco Screening [facility] Start: 12-06-2024 Influenza vaccination Influenza Vacc ine [facility] Start: 12-02-2024 End: 12-02-2024 Patient encounter procedure 12/02/2024 8:45 AM EDT [facility] [place] [address] [place] [address] Erika Dotson, RECREATION TECHNICIAN-TRANSFORMATION COACH [address] [place] [address] [facility] [place] Start: 12-01-2024 End: 12-01-2024 Patient encounter procedure 12/01/2024 8:30 AM EDT Appointment [facility] - [facility] [address] [place] [id number] [facility] Start: 11-25-2024 End: 11-25-2025 US Carotid arteries - bilateral Vas carotid duplex bilateral Vascular Ultrasound Routine Bilateral carotid artery stenosis without cerebral infarction Occlusion and stenosis of unspecified carotid artery Expected: 11/25/2024, Expires: 11/25/2025 [facility] [employer] Phone: Comment on above: Expected: 11/25/2024 , Expires: 11/25/2025 Start: 11-25-2024 End: 11-25-2024 Patient encounter procedure 11/25/2024 8:45 AM EDT Office Visit [facility] [place] [address] Erika Dotson, RECREATION TECHNICIAN-TRANSFORMATION COACH [address] [address] [facility] Start: 11-12-2024 Tobacco Screening Tobacco Screening [facility] Start: 11-12-2024 End: 11-12-2024 US Carotid arteries - bilateral Vas carotid duplex bilateral Vascular Ultrasound Routine Occlusion and stenosis of unspecified carotid artery Bilateral carotid artery stenosis without cerebral infarction Expected: 11/12/2024 (Approximate), Expires: 11/12/2024 [facility] [employer] Phone: Comment on above: Expected: 11/12/2024 (Approximate), Expires: 11/12/2024 Start: 07-13-2024 COVID-19 Vaccine ( season) COVID-19 Vaccine () [facility] Start: 12-07-2023 COVID-19 Vaccine ( season) COVID-19 Vaccine ( season) [facility] Start: 12-07-2023 Influenza vaccination Influenza Vacc ine [facility] Start: 05-30-2023 COVID-19 Vaccine ( season) COVID-19 Vaccine ( season) [employer] Start: 2000 Fall Risk Screening Fall [facility] Start: 1954 DTaP,Tdap and Td Vaccines (1 - Tdap) DTaP,Tdap and Td Vaccines (1 - Tdap) [facility] Start: 1953 Adult BMI Follow Up Plan Adult BMI Follow Up Plan [facility] Start: 1953 Adult BMI Screening Adult [facility] Screen ing [facility] Start: 1947 Depression Screening Depression Scre ening [facility] Start: 1947 Tobacco Screening Tobacco [facility]ening [facility] Start: 1935 Medicare Annual Wellness Visit Medicare Annual Wellness Visit [facility] Renal function 1999 panel - Serum or Plasma [facility] Renal function 1999 panel - Serum or Plasma [facility] US Kidney - bilateral [facility] Immunizations Immunization Date Immunization Notes Care Provider Fa [facility] 01-13-2024 influenza virus vaccine, unspecified formulation Erika PEPE Work Phone: [facility] Message [employer] [facility] 05-02-2023 zoster vaccine recombinant Variable [facility] 02-24-2023 zoster vaccine recombinant Variable [facility] 01-27-2023 influenza virus vaccine, unspecified formulation Variable [facility] 06-02-2022 influenza virus vaccine, unspecified formulation Variable [facility] 06-02-2022 pneumococcal conjuga te vaccine, 13 valent Variable [facility] 01-21-2022 influenza virus vaccine, unspecified formulation Darien REYNOLDS [facility] 09-27-2021 SARS-CoV-2 (COVID-19 ) mRNA-1273 vaccine Darien REYNOLDS [facility] 04-24-2021 SARS-CoV-2 (COVID-19 ) mRNA BNT-162b2 vax Darien REYNOLDS [facility] 01-25-2021 influenza virus vaccine, unspecified formulation Darien REYNOLDS [facility] 06-06-2020 SARS-CoV-2 (COVID-19 ) mRNA-1273 vaccine Darien REYNOLDS [facility] 05-09-2020 SARS-CoV-2 (COVID-19 ) mRNA-1273 vaccine Darien REYNOLDS [facility] 04-11-2020 SARS-CoV-2 (COVID-19 ) mRNA-1273 vaccine Darien REYNOLDS [facility] 01-14-2020 influenza virus vaccine, unspecified formulation Darien REYNOLDS [facility] 01-06-2020 influenza virus vaccine, unspecified formulation Darien REYNOLDS [facility] 01-28-2018 influenza virus vaccine, unspecified formulation Darien REYNOLDS [facility] 02-05-2017 pneumococcal conjuga te vaccine, 13 valent Darien REYNOLDS [facility] 01-27-2017 influenza virus vaccine, unspecified formulation Darien GAIL [facility] 01-13-2017 influenza virus vaccine, unspecified formulation Darien GAIL [facility] 01-06-2017 influenza virus vaccine, unspecified formulation Darien GAIL [facility] 01-03-2016 influenza virus vaccine, unspecified formulation Darien COOK [facility] 01-06-2015 influenza virus vaccine, unspecified formulation Darien GAIL [facility] 02-03-2014 influenza virus vaccine, unspecified formulation Darien GAIL [facility] 01-25-2009 influenza, whole Darien BASSO K [facility] Payers Date Payer Category Payer Managed Care Other (unspecified) [facility] [place] [id number] 2017 Unknown 2017 Unknown [id number] 2017 Medicare [id number] 2000 Medicare [id number] 1959 Medicare [id number] [id number] 1959 Self-pay 1959 Unknown [id number] 1935 Unknown [id number] 2.16.840.1.179549.3.579. 2.593 1935 Unknown [id number] 2.16.840.1.470289.3.579. 2.593 1935 Unknown [id number] 2.16.840.1.681210.3.579. 2.593 1935 Unknown [id number] 2.16.840.1.853756.3.579. 2.593 1935 Unknown [id number] 2.16.840.1.787373.3.579. 2.593 1935 Unknown [id number] 2.16.840.1.769717.3.579. 2.593 1935 Unknown [id number] 2.16.840.1.733291.3.579. 2.593 1935 Unknown [id number] 2.16.840.1.372830.3.579. 2.593 1935 Unknown [id number] 2.16.840.1.031850.3.579. 2.593 1935 Unknown [id number] 2.16.840.1.198000.3.579. 2.593 1935 Unknown [id number] 2.16.840.1.427137.3.579. 2.593 1935 Unknown [id number] 2.16.840.1.381435.3.579. 2.593 1935 Unknown [id number] 2.16.840.1.218149.3.579. 2.593 1935 Unknown [id number] 2.16.840.1.063818.3.579. 2.593 1935 Unknown [id number] 2.16.840.1.396363.3.579. 2.593 1935 Unknown [id number] 2.16.840.1.755749.3.579. 2.593 1935 Unknown [id number] 2.16.840.1.578401.3.579. 2.727 1935 Unknown [id number] 2.16.840.1.500796.3.579. 2.727 1935 Unknown [id number] 2.16.840.1.458937.3.579. 2.727 1935 Unknown [id number] 2.16.840.1.572306.3.579. 2.1286 1935 Unknown [id number] 2.16.840.1.047324.3.579. 2.1286 1935 Unknown [id number] 2.16.840.1.642164.3.579. 2.1286 Unknown [id number] 2.16.840.1.728225.19 Unknown [id number] 2.16.840.1.696164.3.579. 2.593 Unknown [id number] 2.16.840.1.828965.3.579. 2.593 Social History Date Type Detail Facility Start: 05-18-2020 End: 11-13-[address] [facility] [employer] Other Start: 11-27-2021 End: 06-11-2022 Tobacco smoking status Never smoked tobacco (finding) [facility] Tobacco smoking status Never [facility] Start: 11-13-2023 End: 04-29-2025 Tobacco smoking status NHIS Ex-smoker [facility] End: 08-01-1947 History of tobacco use Current smoker [facility] End: 08-01-1947 History of tobacco use Cigarette Smoker [facility] Start: 11-13-2023 Tobacco use and exposure Smokeless tobacco non-user [facility] Start: 11-13-2023 End: 11-25-2024 Alcoholic beverage intake Current drinker of alcohol (finding) [facility] Start: 05-18-2020 End: 11-13-2023 Alcoholic beverage intake [facility] Start: 07-29-2017 Alcohol Comment 1 daily [facility] [employer] [facility] Start: 1935 [facility] Start: 11-10-2014 End: 08-03-2024 Sex Male (finding) [facility] Start: 1935 Sex Assigned At Male [facility] Medical Equipment Procedure Code Equipment Code Equipment Origin al Text Equipment Identifier Dates Kit Iol +18.5 D Cnvxpln Klmn Rpl [id number] - [id number] - [id number] Start: 07-31-2017 Functional Status Date Assessment Result Facility 11-27-2021 Functional Status N/A [facility] Clinical Notes 12-27-2020 to 01-05-2025 [facility] - 12/02/2024 8:45 AM EDTHesally Dotson [facility] - 11/25/2024 8:45 AM EDT Note Date & Type Note Facility 01-05-2025 Note Subjective Patient ID: Mason Natarajan is a 89 y.o. male who presents for Follow-up (Patient is here today for a routine 6 month follow up appointment. Patient states he feels good and is able to do what he like without any problems. Patient denies chest pain, leg swelling/pain, dizziness/lightheaded, fatigue, palpitations/racing heart. 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 Doing good, denies problems. Able to work in the yard, push mower for edging no chest pain or SOB. Takes medications, no problems. BP cuff at home not working. Lisinopril discontinued due to hyperkalemia and elevated Cr Hypertension Hypertensive end-organ damage includes CVA. Cerebrovascular Accident Review of Systems Objective Visit Vitals BP 167/54 (BP Location: Right arm, Patient Position: Sitting) Pulse 51 Physical Exam Constitutional: Appearance: Normal appearance. He is normal weight. HENT: Head: Normocephalic and atraumatic. Cardiovascular: Rate and Rhythm: Normal rate and regular rhythm. Pulses: Carotid pulses are 2+ on the right side and 2+ on the left side. Radial pulses are 2+ on the right side and 2+ on the left side. Heart sounds: Heart sounds not distant. Murmur heard. Systolic murmur is present with a grade of 3/6. No friction rub. No gallop. Comments: Murmur radiates throughout chest Pulmonary: Effort: Pulmonary effort is normal. No respiratory distress. Breath sounds: Normal breath sounds. No wheezing or rales. Musculoskeletal: Right lower leg: No edema. Left lower leg: No edema. Neurological: General: No focal deficit present. Mental Status: He is alert and oriented to person, place, and time. Psychiatric: Mood and Affect: Mood normal. Behavior: Behavior normal. 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 He has a disparity in kidney size 11.1 vs. 9.3 cm which is highly suggestive. Along with this his creatinine and K increased with an MARV inhibitor. Generally, this can be managed medically. Will recheck BMP and BNP. Urine albumin:creatinine ratio can be helpful in prognosticating. Importantly, control of systolic blood pressure is important in event prevention. Will give trial of chlorthalidone 25 mg daily and see if this improves bp. Diagnosis Plan 1. Renal function impairment 2. Benign hypertensive heart disease without congestive heart failure 3. Bradycardia 4. Benign renovascular hypertension No orders of the defined types were placed in this encounter. No results found for this or any previous visit (from the past 36 hours). Follow up in about 4 weeks (around 02/02/2025) for Recheck. [facility] 12-02-2024 History of Present illness Narrative Images from the original note were not included. To: ERIN BERG MD HPI: Mason Natarajan is a 89 y.o. male with 88-year-old gentleman with bilateral ICA stenosis.He is taking plavix and statin. Denies amaurosis fugax, unilateral weakness. Denies bleeding issues. Review of Systems: Review of Systems Constitutional: Negative. HENT: Negative. Respiratory: Negative. Cardiovascular: Negative. Gastrointestinal: Negative. Endocrine: Negative. Genitourinary: Negative. Musculoskeletal: Negative. Skin: Negative. Neurological: Negative. Hematological: Negative. Medications: Current Outpatient Medications on File Prior to Visit Medication Sig Dispense Refill atorvastatin (LIPITOR) 40 mg tablet Take 1 tablet (40 mg total) by mouth in the morning. 30 tablet 12 atorvastatin (LIPITOR) 40 mg tablet Take 1 tablet (40 mg total) by mouth in the morning for 364 days. 30 tablet 11 cetirizine (ZyrTEC) 10 mg tablet Take 1 tablet (10 mg total) by mouth in the morning. clopidogreL (PLAVIX) 75 mg tablet TAKE 1 TABLET BY MOUTH IN THE MORNING 30 tablet 12 docusate sodium (COLACE) 100 mg capsule Take 1 capsule (100 mg total) by mouth as needed for constipation. ferrous sulfate 325 (65 FE) MG tablet Take 1 tablet (325 mg total) by mouth daily with breakfast. gabapentin (NEURONTIN) 100 mg capsule Take 1 capsule (100 mg total) by mouth 3 (three) times a day. garlic 1 mg capsule Take 500 mg by mouth. jaye, Zingiber officinalis, (JAYE EXTRACT) 250 mg capsule Take 250 mg by mouth. glucosamine-chondroitin 500-400 mg tablet Take 1 tablet by mouth in the morning and 1 tablet before bedtime. levothyroxine (SYNTHROID, LEVOTHROID) 50 MCG tablet Take 1 tablet (50 mcg total) by mouth in the morning. liothyronine (CYTOMEL) 5 MCG tablet Take 2 tablets (10 mcg total) by mouth in the morning. lisinopril (PRINIVIL,ZESTRIL) 40 mg tablet Take 1 tablet (40 mg total) by mouth in the morning. epyigaae-lnlujsij-zqjzckb fum (MULTI VITAMIN) 9 mg iron/15 mL liquid Take 500 mg by mouth Indications: treatment to prevent mineral deficiency. NIFEdipine CC (ADALAT CC) 60 MG 24 hr tablet Take 1 tablet (60 mg total) by mouth in the morning. oxybutynin (DITROPAN) 5 mg tablet Take 1 [...] mg capsule Take 50 mg by mouth. amLODIPine (NORVASC) 10 mg tablet Take 1 tablet (10 mg total) by mouth in the morning. (Patient not taking: Reported on 12/02/2024) aspirin 81 mg chewable tablet Chew 1 tablet (81 mg total) and swallow in the morning. (Patient not taking: Reported on 12/02/2024) 30 tablet 12 diclofenac (VOLTAREN) 75 mg EC tablet Take 1 tablet (75 mg total) by mouth in the morning and 1 tablet (75 mg total) before bedtime. (Patient not taking: Reported on 12/02/2024) glimepiride (AMARYL) 2 mg tablet Take 2 mg by mouth every morning before breakfast. (Patient not taking: Reported on 12/02/2024) hydrALAZINE (APRESOLINE) 100 mg tablet Take 1 tablet (100 mg total) by mouth in the morning and 1 tablet (100 mg total) before bedtime. (Patient not taking: Reported on 12/02/2024) lecithin 1,200 mg capsule Take 1,200 mg by mouth. (Patient not taking: Reported on 12/02/2024) No current facility-administered medications on file prior to visit. Past Medical History: Past Medical History: Diagnosis Date Cataract Diabetes mellitus type 2, controlled ([facility] Hypertension Hypothyroidism Injury of back 1985 back surgery Visual impairment glasses Past Surgical History: Past Surgical History: Procedure Laterality Date APPENDECTOMY BACK SURGERY CATARACT EXTRACTION IMPLANT SECONDARY LENS Left 07/31/2017 Performed by Orly Mares MD at [facility]OULD[facility]GERY left rotator cuff TONSILLECTOMY Social [...] Social History Narrative Not on file Social Drivers of Health Financial Resource Strain: Not on file Food Insecurity: No Food Insecurity (12/02/2024) Hunger Screening Food Insecurity - Worry: Never True Food Insecurity - Inability: Never True Transportation Needs: Not on file Physical Activity: Not on file Stress: Not on file Social Connections: Not on file Interpersonal Safety: Unknown (05/29/2023) Received from [facility] Safety [facility] Environment Fear of Current or Ex-Partner: Not on file Emotionally Abused: Not on file Physically Abused: Not on file Sexually Abused: Not on file Physically or Sexually Abused: Not on file Housing Instability: Not on file No family history on file. Recent Labs: Recent and relative labs were reviewed and interpreted and contributed to the assessment and plan below. Vitals: BP 161/51 (BP Site: Left Arm, BP Postition: Sitting, BP CUFF SIZE: M (9-13 inches)) Pulse 54 Ht 172.7 cm (5' 8 ) Wt 72.6 kg (160 lb) SpO2 97% BMI 24.33 kg/m Body mass index is 24.33 kg/m . Physical Exam: Physical Exam Constitutional: Appearance: Normal appearance. HENT: Head: Normocephalic and atraumatic. Eyes: Extraocular Movements: Extraocular movements intact. Pupils: Pupils are equal, round, and reactive to light. Cardiovascular: Rate and Rhythm: Normal rate. Pulmonary: Effort: Pulmonary effort is normal. Musculoskeletal: General: Normal range of motion. Cervical back: Normal range of motion. Skin: General: Skin is warm and dry. Neurological: General: No focal deficit present. Mental Status: He is alert and oriented to person, place, and time. Psychiatric: Mood and Affect: Mood normal. Behavior: Behavior normal. Thought Content: Thought content normal. Judgment: Judgment normal. Recent testing: Carotid duplex ultrasound Right: Plaque with no significant ICA spectral Doppler or color flow disturbances; ICA 132/25 cm/sec. Antegrade vertebral artery flow. Left: Plaque with no significant ICA spectral Doppler or color flow disturbances; ICA 95/15 cm/sec. Antegrade vertebral artery flow. Assessment and Plan: RTC 12 months with carotid US prior Continue plavix, statin Blood pressure control AFSHIN Magana 12/02/24 0936 documented in this encounter [facility] History of Present illness Narrative Images from the original note were not included. To: ERIN BERG MD HPI: Mason Natarajan is a 89 y.o. male with bilateral ICA stenosis. Last carotid imaging demonstrated moderate right ICA stenosis and mild left ICA stenosis. He had both CTA and carotid duplex ultrasound. He remains he an ex-smoker. He is on Plavix and statin. Denies amaurosis fugax, aphasia and unilateral weakness. Carotid US was not done prior to today's appointment. Statin refilled for 12 months. Will have him return for appointment after carotid US completed. Review of Systems: Review of Systems Constitutional: Negative. HENT: Negative. Respiratory: Negative. Cardiovascular: Negative. Gastrointestinal: Negative. Endocrine: Negative. Genitourinary: Negative. Musculoskeletal: Negative. Skin: Negative. Neurological: Negative. Hematological: Negative. Medications: Current Outpatient Medications on File Prior to Visit Medication Sig Dispense Refill atorvastatin (LIPITOR) 40 mg tablet Take 1 tablet (40 mg total) by mouth in the morning. 30 tablet 12 clopidogreL (PLAVIX) 75 mg tablet TAKE 1 TABLET BY MOUTH IN THE MORNING 30 tablet 12 diclofenac (VOLTAREN) 75 mg EC tablet Take 1 tablet (75 mg total) by mouth in the morning and 1 tablet (75 mg total) before bedtime. ferrous sulfate 325 (65 FE) MG tablet Take 1 tablet (325 mg total) by mouth daily with breakfast. gabapentin (NEURONTIN) 100 mg capsule Take 1 capsule (100 mg total) by mouth 3 (three) times a day. hydrALAZINE (APRESOLINE) 100 mg tablet Take 1 tablet (100 mg total) by mouth in the morning and 1 tablet (100 mg total) before bedtime. levothyroxine (SYNTHROID, LEVOTHROID) 50 MCG tablet Take 1 tablet (50 mcg total) by mouth in the morning. liothyronine (CYTOMEL) 5 MCG tablet Take 2 tablets (10 mcg total) by mouth in the morning. NIFEdipine CC (ADALAT CC) 60 MG 24 hr tablet Take 1 tablet (60 mg total) by mouth in the morning. oxybutynin (DITROPAN) 5 mg tablet Take 1 tablet (5 mg total) by mouth every morning. pantoprazole (PROTONIX) 40 mg EC tablet Take 1 tablet (40 mg total) by mouth every morning before breakfast. sucralfate (CARAFATE) 1 gram tablet Take 1 tablet (1 g total) by mouth every morning. tamsulosin (FLOMAX) 0.4 mg capsule Take 1 tablet by mouth nightly. tiZANidine (ZANAFLEX) 4 mg tablet Take 1 tablet (4 mg total) by mouth every morning. amLODIPine (NORVASC) 10 mg tablet Take 1 tablet (10 mg total) by mouth in the morning. (Patient not taking: Reported on 11/25/2024) aspirin 81 mg chewable tablet Chew 1 tablet (81 mg total) and swallow in the morning. (Patient not taking: Reported on 11/25/2024) 30 tablet 12 cetirizine (ZyrTEC) 10 mg tablet Take 1 tablet (10 mg total) by mouth in the morning. (Patient not taking: Reported on 11/25/2024) docusate sodium (COLACE) 100 mg capsule Take 1 capsule (100 mg total) by mouth as needed for constipation. (Patient not taking: Reported on 11/25/2024) garlic 1 mg capsule Take 500 mg by mouth. (Patient not taking: Reported on 11/25/2024) jaye, Zingiber officinalis, (JAYE EXTRACT) 250 mg capsule Take 250 mg by mouth. (Patient not taking: Reported on 11/25/2024) glimepiride (AMARYL) 2 mg tablet Take 2 mg by mouth every morning before breakfast. (Patient not taking: Reported on 11/25/2024) glucosamine-chondroitin 500-400 mg tablet Take 1 tablet by mouth in the morning and 1 tablet before bedtime. (Patient not taking: Reported on 11/25/2024) lecithin 1,200 mg capsule Take 1,200 mg by mouth. (Patient not taking: Reported on 11/25/2024) lisinopril (PRINIVIL,ZESTRIL) 40 mg tablet Take 1 tablet (40 mg total) by mouth in the morning. (Patient not taking: Reported on 11/25/2024) gccohphg-lfdrmybf-wsltilj fum (MULTI VITAMIN) 9 mg iron/15 mL liquid Take 500 mg by mouth. (Patient not taking: Reported on 11/25/2024) potassium chloride (K-TAB,KLOR-CON) 10 MEQ CR tablet Take 1 tablet (10 mEq total) by mouth in the morning and 1 tablet (10 mEq total) in the evening. Take with meals. (Patient not taking: Reported on 11/25/2024) turmeric-turmeric root extract 450-50 mg capsule Take 50 mg by mouth. (Patient not taking: Reported on 11/25/2024) No current facility-administered medications on file prior to visit. Past Medical History: Past Medical History: Diagnosis Date Cataract Diabetes mellitus type 2, controlled ([facility]) Hypertension Hypothyroidism Injury of back 1985 back surgery Visual impairment glasses Past Surgical History: Past Surgical History: Procedure Laterality Date APPENDECTOMY BACK SURGERY CATARACT EXTRACTION IMPLANT SECONDARY LENS Left 07/31/2017 Performed by Orly Mares MD at [facility] left rotator cuff TONSILLECTOMY [...] Social History Narrative Not on file Social Drivers of Health Financial Resource Strain: Not on file Food Insecurity: No Food Insecurity (11/13/2023) Hunger Screening Food Insecurity - Worry: Never True Food Insecurity - Inability: Never True Transportation Needs: Not on file Physical Activity: Not on file Stress: Not on file Social Connections: Not on file Interpersonal Safety: Unknown (05/29/2023) Received from [facility] Fear of Current or Ex-Partner: Not on file Emotionally Abused: Not on file Physically Abused: Not on file Sexually Abused: Not on file Physically or Sexually Abused: Not on file Housing Instability: Not on file No family history on file. Vitals: BP 176/68 Pulse 50 Wt 73.9 kg (163 lb) BMI 24.78 kg/m Body mass index is 24.78 kg/m . Physical Exam: Physical Exam Constitutional: Appearance: Normal appearance. HENT: Head: Normocephalic and atraumatic. Mouth/Throat: Mouth: Mucous membranes are moist. Eyes: Extraocular Movements: Extraocular movements intact. Pupils: Pupils are equal, round, and reactive to light. Cardiovascular: Rate and Rhythm: Normal rate and regular rhythm. Pulmonary: Effort: Pulmonary effort is normal. Abdominal: General: Abdomen is flat. Musculoskeletal: General: Normal range of motion. Cervical back: Normal range of motion. Skin: General: Skin is warm and dry. Neurological: General: No focal deficit present. Mental Status: He is alert and oriented to person, place, and time. Mental status is at baseline. Psychiatric: Mood and Affect: Mood normal. Behavior: Behavior normal. Thought Content: Thought content normal. Judgment: Judgment normal. Recent testing: Testing not yet done Assessment and Plan: Carotid Stenosis Bilateral GDMT: Plavix, statin He remains a non smoker Will have him return to clinic after carotid US completed ABDIEL Magallanes, CWS AFSHIN Magana 11/25/24 0919 documented in this encounter [employer] 07-13-2024 Note [place] Electrophysiology Consult Note [place] Cardiology - [facility] Reason for visit: HPI: Mason Natarajan [...] Insecurity: No Food Insecurity (11/13/2023) Received from [employer], [employer] Hunger Screening Within the past 12 months [...] on file Intimate Partner Violence: Unknown (05/29/2023) [place] Safety & Environment Fear of Current or [...] thoracic deformity Au (more content not included)... [facility] 05-11-2024 Evaluation note Diagnosis Onset Date Resolution BPH loc w urin obs/LUTS acute F ebruary 2024 9:31am Chronic kidney disease, stage 3b acute May 11 9:31am Hyperkalemia acute May 9:31am Hypertensive nephropathy acute May 11 9:31am Vitamin D deficiency acute Febr ua2024 9:31am Anemia of renal disease acute A pril 2024 3:36pm BPH loc w urin obs/LUTS acute A pril 2024 3:36pm Chronic kidney disease, stage 3b acute August 03, 2024 3:36pm Hyperkalemia acute August 03, 2024 3:36pm Hypertensive nephropathy acute August 03, 2024 3:36pm Vitamin D deficiency acute Apri l 2024 3:36pm [facility] Work Phone: 1(608) 478-705001-24-2025 NoteCardiology Follow Up Progress Note HPI: Mason [...] -Aggressive risk factor modific (more content not included)...[facility]08-08-2024 Evaluation + Plan note* Assessment & Plan Note - Linda Montelongo MD - 11/13/2023 9:37 AM EDTAssociated Problem(s): Bilateral carotid artery stenosis without cerebral infarction We will start him on aspirin Plavix and statin. I discussed with him risk factors modification and close surveillance.Will get an ultrasound in a year. [facility] [id number] Miscellaneous Notes* Assessment & Plan Note - Linda Montelongo MD - 11/13/2023 9:37 AM EDTAssociated Problem(s): Bilateral carotid artery stenosis without cerebral infarction We will start him on aspirin Plavix and statin. I discussed with him risk factors modification and close surveillance.Will get an ultrasound in a year. [facility] History of Present illness Narrative* Linda [...] mg total) by mouth in the morning. ripzlxsv-dftssofk-bauplgh fum (MULTI VITAMIN) 9 mg iron/15 mL [...] Date Cataract Diabetes mellitus type 2, controlled ([facility]) Hypertension Hypothyroidism Injury of back 1984 back surgery Visual impairment glasses Past Surgical History: Past Surgical History: Procedure Laterality Date APPENDECTOMY BACK SURGERY CATARACT EXTRACTION IMPLANT SECONDARY LENS Left 07/31/2017 Performed by Orly Mares MD at [facility]GERY left rotator cuff TONSILLECTOMY Social [...] Interpersonal Safety: Unknown (05/29/2023) Received from [facility] Safety & Environment Fear of Current or [...] artery - [facility] [place] [place] Linda Montelongo MD, MC, RPVI, FSVS, FACS [...] you for your understanding. [facility] Evaluation note* Encounter Date Diagnosis Assessment Notes Treatment Notes Treatment Clinical Notes Nov, Microscopic colitis (ICD-10 - K52.89) Patient to use OTC probiotic and OTC Fiber supplement to help normalize the stools. Patient to finish remaining 2 weeks of medication and call if diarrhea returns after stopping the medication. RTO in 1 year. [employer] Other 09-22-2022 Evaluation note* Encounter Date Diagnosis Assessment Notes Treatment Notes Treatment Clinical Notes Dec, Microscopic colitis (ICD-10 - K52.89) REASSURANCE PT ADVISED TO ADD FIBER SUPPLEMENT TO DIET F/U PRN [employer] Other 08-23-2022 Hospital Discharge instructions Patient Education [...] urethra. Follow these instructions at home: Take axsx-rbp-dzjkzff and prescription medicines only as told by [...] 03/24/2006 Document Revised: 02/16/2019 Document Reviewed: 04/28/2017 [employer] Patient Education [employer]. Follow Up Care 05/30/2021 14:56:10 With:Darien REYNOLDS MD, URL Address: [facility] [employer] [place] [id number]- When:6 months [facility] [id number] Evaluation note* Encounter Date Diagnosis Assessment Notes Treatment Notes Treatment Clinical Notes Dec, Microscopic colitis (ICD-10 - K52.89) Colitis home care material was printed will taper the budesonide at this time patient to finish the 9 mg taper then move to the 6 mg taper. [employer] Other Evaluation + Plan note Future Appointments Appointment Date:06/11/2022 09:30:00 AM Scheduled Provider:Darien REYNLODS MD Location:[facility] Appointment Type:URO Office Visit [facility] Evaluation note* Diagnosis Bilateral carotid artery stenosis without cerebral infarction- Primary Occlusion and stenosis of unspecified carotid artery documented [facility] Diagnosis Bilateral carotid artery stenosis without cerebral infarction- Primary Occlusion and stenosis of unspecified carotid artery Occlusion and stenosis of unspecified carotid artery Bilateral carotid artery stenosis without cerebral infarction documented in this encounter [facility] [employer] [facility] note* Diagnosis Bilateral carotid artery stenosis without cerebral infarction- Primary Occlusion and stenosis of unspecified carotid artery Bilateral carotid artery stenosis without cerebral infarction- Primary [facility] Diagnosis Bilateral carotid artery stenosis without cerebral infarction- Primary Occlusion and stenosis of unspecified carotid artery Bilateral carotid artery stenosis without cerebral infarction- Primary Occlusion and stenosis of unspecified carotid artery documented in [facility]* Diagnosis Bilateral carotid artery stenosis without cerebral infarction- Primary Occlusion and stenosis of unspecified carotid artery Occlusion and stenosis of unspecified carotid artery Bilateral carotid artery stenosis without cerebral infarction documented in this encounter [facility] [employer] [facility]* Diagnosis Bilateral carotid artery stenosis without cerebral infarction- Primary Occlusion and stenosis of unspecified carotid artery Bilateral carotid artery stenosis without cerebral infarction- Primary [facility] encounter [facility] N[facility] - Reported* Type Description Date Surgical History vasectomy 1979 Surgical History umbilical hernia repair 1982 Surgical History back surgery-lower 1984 Surgical History appendectomy 1991 Surgical History cataract removal L 2000 Surgical History rotator cuff L 2007 Surgical History elbow surgery R 2008 Surgical History carpal tunnel release R 2008 Surgical History cataract removal R 2012 Surgical History eye surgery L Surgical History torn macula L 1998 Hospitalization History SEE ABOVE SURGICAL HX [employer] Other History general Narrative - Reported* Type [...] ABOVE SURGICAL HX Hospitalization History A1c down- [facility] 05/2022 [employer] Other Hospital course Narrative No data available for this section [facility] Hospital Discharge instructions No data available for this section [facility] [place] InstructionsNot on filedocumented in this encounter [facility]Not on filedocumented in this encounter [facility] System[facility]ructionsNot on filedocumented in this encounter [facility] SystemInstructionsNot on filedocumented in this encounter [facility] SystemInstructionsNot on filedocumented in this encounter [facility] note No data available for this section [facility] [place] Summary Purpose Family History No Family History Records Found Relationship Condition Age at Onset Recorded Date/T esvin mother Malignant neoplasm of uterus Unknown father Renal failure Unknown Advance Directives No Advanced Directives Records Found Advance Directive Response Recorded Date/ Time Advance Directives No May 10, 2024 12:43pm Reason for Referral Specialty Diagnoses / Procedures Referred By Odalys teresa Referred To Contact Diagnoses Occlusion and stenosis of unspecified carotid artery Bilateral carotid artery stenosis without cerebral infarction Procedures Vas carotid duplex bilateral Linda Montelongo MD [address], [address] [address] Referral ID Status Reason Start Date Expiration Date V isits Requested Visits Authorized [id number] Pending Review 11/13/2023 11/12/2024 1 1 Chief Complaint and Reason for Visit Chief Complaint Admit Date Stage 3 CKD May 11, 2024 9 :31am RENAL 3 MONTHS August 03, 2024 3:3 6pm Reason for Visit Admit Date BPH loc w urin obs/LUTS May 11 9:31am Chronic kidney disease, stage 3b 2024 9:31am Hyperkalemia May 11, 2024 9 :31am Hypertensive nephropathy May 11, 025 9:31am Vitamin D deficiency May 11, [...] section and content) DATE CREATED AUTHOR 09/30/2017 [facility] DATE CREATED AUTHOR AUTHOR'S ORGANIZ ATION 09/30/2017 [facility] DATE CREATED AUTHOR AUTHOR'S ORGANIZ ATION 10/30/2020 [facility] DATE CREATED AUTHOR AUTHOR'S ORGANIZ ATION 08/19/2022 [facility] DATE CREATED AUTHOR AUTHOR'S ORGANIZ ATION 08/10/2023 [facility] DATE CREATED AUTHOR AUTHOR'S ORGANIZ ATION 12/02/2024 [facility] DATE CREATED AUTHOR AUTHOR'S ORGANIZ ATION 12/04/2024 [facility] DATE CREATED AUTHOR AUTHOR'S ORGANIZ ATION 01/10/2025 [facility] REASON FOR VISIT (unrecogniz ed section and content) Reason Comments carotid stenosis Venous duplex in med ia Specialty Diagnoses / Procedures Referred By Odalys teresa Referred To Contact Vascular Surgery Diagnoses Occlusion and stenosis of unspecified carotid artery Erin Berg MD [address] [place] [address] Linda Montelongo MD [address] [place] [address] Referral ID Status Reason Start Date Expiration Date Visits Requested Visits Authorized [id number] Pending Review Specialty Services Required 11/04/2023 11/03/2024 1 1 Reason Comments Med Refill Reason Comments Follow-up Carotid Artery Disease Testing not done Reason Onset Date Comments Med Refill 11/25/2024 Reason Comments follow up on testing of fUS follow up wi th testing on 12/01Dx: Bilateral carotid artery stenosis without cerebral infarction [I65.23]; Occlusion and stenosis of unspecified carotid artery [I65.29] Care Team (unrecognized sect ion and content) Press Leader Relationship Specialty Start Date End Date Erin Berg MD [address] [place] [address] PCP - General 07/31/17 Team Status: Active Member Role Status Dates Erin Berg MD Primary Care Provider Active Team Status: Inactive Member Role Status Dates Erin Berg MD Primary Care Provider Active Start: May 11, 2024 End: May 11, 2024 Sarbjit Tran MD Attending Provider Active Star t: May 11, 2024 End: May 11, 2024 Team Status: Active Member Role Status Dates Erin Berg MD Primary Care Provider Active Start: July 26, 2024 Sarbjit Tran MD Attending Provider Active Star t: July 26, 2024 Team Status: Inactive Member Role Status Dates Erin Berg MD Primary Care Provider Active Start: August 03, 2024 End: August 03, 2024 Sarbjit Tran MD Attending Provider Active Star t: August 03, 2024 End: August 03, 2024 Press Leader Relationship Specialty Start Date End Date Erin Berg MD [facility] General 07/31/17 Press Leader Relationship Specialty Start Date End Date Erin Berg MD PCP General 07/31/17 Press Leader Relationship Specialty Start Date End Date Erin Berg MD PCP - General 07/31/17 Press Leader Relationship Specialty Start Date End Date Erin Berg MD PCP General 07/31/17 Goals (unrecognized section and content) Goals may [...] BE BASED ON THE PRIMARY CLINICAL RECORDS. [facility] [employer] [facility]. provides no warranty or guarantee of the accuracy or completeness of information in this document.
[2025-01-12 09:46] LABS: Albumin Level 4.1 g/dL (3.4-5.0); Anion Gap 16.0; Blood Urea Nitrogen 32.0 mg/dL (7.0-18.0); Calcium 9.1 mg/dL (8.5-10.1); Carbon Dioxide 24.4 mmol/L (21.0-32.0); Chloride 105 mmol/L (98-107); Estimated GFR (African America 53 (>=60 mL/min/1.73m^2); Estimated GFR (Non-African Ame 44 (>=60 mL/min/1.73m^2); Glucose 114 mg/dL (74-106); Magnesium 2.2 mg/dL (1.8-2.4); Potassium 4.4 mmol/L (3.5-5.1); Sodium 141 mmol/L (136-145); Uric Acid 6.0 mg/dL (3.5-7.2)
[2025-01-12 09:48] LABS: Iron 103.0 ug/dL (65.0-175.0); Percent Iron Saturation 34.3 %; Total Iron Binding Capacity 300.0 ug/dL (250.0-450.0)
[2025-01-12 10:05] LABS: Hematocrit 36.4 % (42.0-54.0); Hemoglobin 11.9 g/dL (14.0-18.0); Mean Corpuscular HGB Conc 32.7 g/dL (29.9-35.2); Mean Corpuscular Hemoglobin 30.9 pg (25.9-34.0); Mean Corpuscular Volume 94.5 fL (80.0-94.0); Platelet Count 295 10^3/uL (150-450); Red Blood Count 3.85 10^6/uL (4.70-6.10); White Blood Count 11.4 10^3/uL (4.0-11.0)
[2025-01-12 10:16] LABS: Total Protein Urine Random 8.8 mg/dL (<=11.9)
[2025-01-12 10:32] LABS: Glucose Urine UA NEGATIVE (NEGATIVE)
[2025-01-12 11:07] LABS: Ferritin 46.0 ng/mL (26.0-388.0)
[2025-01-13 04:09] LABS: Vitamin B12 580 pg/mL (232-1245)
== END 2025-01-12 08:05 | disposition home or self-care (01) ==
LOC: LAB 08:05
PROVIDERS: PCP Family Medicine; Visit Provider Internal Medicine Nephrology
DX: I12.9 Hypertensive chronic kidney disease with stage 1 through stage 4 chronic kidney disease, or unspecified chronic kidney disease (principal); N18.9 Chronic kidney disease, unspecified; D63.1 Anemia in chronic kidney disease; N40.1 Benign prostatic hyperplasia with lower urinary tract symptoms; E55.9 Vitamin D deficiency, unspecified; E87.5 Hyperkalemia
CPT/HCPCS: 36415; 80069; 81003; 82306; 82570; 82607; 82728; 82746; 83540; 83550; 83735; 83970; 84156; 84550; 85027

== ENCOUNTER 2025-02-11 07:06 | Outpatient (OUT) | payer MEDICARE, OTHER, SELFPAY ==
--- OUTSIDE RECORDS SUMMARY | 2025-02-07 04:45 | XMS_ITS ---
Author Organization [facility] in [place] Address [address] [place] [address] Care Team Providers Care Drip Pumper Name Role Phone Jose Berg Primary Care Provider [phone] Allergies No Known Allergies Results Component Value Reference Range Notes COVID-19, Flu A+B IH (Not ye t reviewed by provider) Interpretation: Performing Lab: Notes/Report: COVID neg FLU AnegFLU BnegControlpresent REASON FOR VISIT Presents to office alone for c/o started on Friday with cough that has resolved. started on Friday with sore throat Medications Medication SIG (Take, Route, Frequency, Duration) Notes Start Date End Date Status Sucralfate 1 GM 1 tablet on an empty stomach Ora lly 4 times a day 5ActivePlavix 75 MG1 tablet Orally Once a day5ActiveTamsulosin HCl 0.4 MG1 capsule Orally Once a day; Duration: 30 days5Active Pantoprazole Sodium 40 mgTAKE 1 TABLET BY MOUTH EVERY EVENING; Duration: 90 ActiveoxyBUTYnin Chloride 5 MG1 tablet Orally Once a day; Duration: 30 days ActiveLevothyroxine Sodium 50 MCG1 tablet in the morning on an empty stomach Orally Once a day; Duration: 90 daysActivehydrALAZINE HCl 100 MG1 tablet with food Orally Twice a day; Duration: 30 daysActiveGabapentin 100 MG1 capsule Orally qhs; Duration: 30 days5ActiveNIFEdipine ER 60 MG1 tablet on an empty stomach Orally Once a day; Duration: 30 day(s)5ActiveLiothyronine Sodium 5 mcgTAKE 2 TABLETS BY MOUTH DAILY; Duration: 90 daysActiveChlorthalidone 25 MG1 tablet in the morning with food Ejudxi155ActiveBlood Glucose Meter ActiveFerrous Sulfate 325 (65 Fe) MG1 tablet Orally daily; Duration: 30 days 5ActiveDiclofenac Sodium 75 MG1 tablet as needed Orally Twice a day; Duration: 30 days12/22/2023ctiveAtorvastatin Calcium 40 MG1 tablet Orally Once a day5ActiveTrue Metrix Blood Glucose Test -use 1 strip via meter Daily; Duration: 90 days07/15/2022ctiveAmoxicillin-Pot Clavulanate 875-125 MG 1 tablet Orally every 12 hrs; Duration: 10 days Void after 02/19/2025 5ActivetiZANidine HCl 4 MG1 tablet Orally at bedtime; Duration: 30 days Active Social History Tobacco Use: Social History Observation Description Date Details (start date - stop date) Former Smoker 04/07/1951 - 04/07/1953 Tobacco Use/Smoking Question Answer Notes Patient is a former smoker When did you start smoking?04/07/1951When did you stop smoking?04/07/1953How long has it been since you last smoked?> 10 yearsAdditional Findings: Tobacco Non-UserCurrent non-smoker Problems Problem Type SNOMED Code ICD Code Onset Dates Problem Status W/U Status Risk Notes Problem Acute sinusitis (80692052) Acute sinusiti s (J01.90) Activeconfirmed Vital Signs Weight 164.2 lbs 02/07/2025 Height 68 in 02/07/2025 Blood pressure systolic 144 mm Hg 02/08/20 25 Blood pressure diastolic 60 mm Hg 025 Temperature 96.0 degrees Fahrenheit 02/08/20 25 BMI 24.96 kg/m2 02/07/2025 Encounters Encounter Location Date Provider Diagnosis [facility] [address] [place] [address] 02/07/2025 Jose Berg Acute sinusitis J01. 90 Assessments Encounter Date Diagnosis (ICD Code) Assessment Notes Treatment Notes Treatment Clinical Notes Section Notes 02/07/2025 Acute sinusitis (ICD-10 - J01.90 ) Plan Of Treatment Medication Medication Name Sig Start Date Stop Date Notes Amoxicillin-Pot Clavulanate 875-125 MG 1 tablet Orally every 12 hrs; Duration: 10 days 02/07/2025 Pending Test Test Name Order Date COVID-19, Flu A+B IH 02/07/2025 Progress Notes * Mason RIVAS EDOB: [birth year] (89 yo M)Acc No.[id number]:02/07/2025 Progress Note Patient: Mason MORRIS :?Art Berg ([facility]), MDDOB:1935???Age: 89 Y???Sex:MaleDate:02/07/2025Phone:[phone]:[address] [id number] In:09:42 AM ESTCheck Out:10:06 AM EST Subjective: * Chief Complaints: * P resents to office alone for c/o started on Friday with cough that has resolved. started on Friday with sore throat * ROS: ???EENT:?hearing changes?denies.?visual changes?denies. non-healing mouth sores?denies.?swollen glands or neck lumps?denies.?hoarseness?denies.?sore throat?denies.?difficulty swallowing?denies.?nose bleeds?denies.?nasal congestion?denies.?ear ache?denies.?ear discharge denies.?ringing in ears?denies.?light sensitivity?denies.?eye pain?denies.?blurring?denies.?eye irritation?denies.?double vision?denies. vision loss?denies.?General/Constitutional:?Sweats:?Denies.?Fatigue?denies.?Sleep proble ms?denies.?Anorexia?denies.?Malaise?denies.?Weight loss?denies. Fatigue or Weakness?denies.?Fever or Chills?denies.?Cardiovascular:?Shortness of Breath w/lying flat?denies.?Lightheadedne ss/dizziness?denies.?Chest tightness/ heavy pressure?denies.?Swelling of legs, a nkles, or feet?denies.?Waking up with shortness of breath?denies.?Chest pain&#16 0;denies.?Palpitations?denies.?Weight gain?denies.?Respiratory:?Chronic or frequent cough?denies.?Coughing up blood&#1 60;denies.?Difficulty breathing?denies.?Productive cough?denies.?Snoring&#1 60;denies.?Shortness of breath that awakens from sleep (PND)?denies.?Chest pain? denies.?Sputum production?denies.?Wheezing?denies.?Musculoskeletal:?Joint pain?denies.?Joint Fluid?denies.?Backpain?denies.?Knee pain?denies.?Neck pain?denies.?Joint Stiffness?denies.?Muscle cramps?denies.?Weakness of muscles?denies.?Arthritis?denies.?Muscle aches?denies.?Pain in shoulder(s)?denies.?Swollen joints?denies.? 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 Modified On:07/16/2022U Status:dxpbqyzbtK54.80Other shoulder lesions, unspecified shoulder Modified On:07/16/2022U Status:truwuyrfgM30.2Palpitations Modified On:07/16/2022U Status:ezenkowkqW28.1Weakness Modified On:07/17/2022U Status:zecypgiwzM40.1OM (onychomycosis) Modified On:07/16/2022U Status:hoemubnarW99.00Carpal tunnel syndrome Modified On:07/16/2022U Status:jdgzrjuamY42Oziogdkuq hypertension Modified On:07/17/2022U Status:qxgkejmakU48.1Bradycardia Modified On:07/16/2022U Status:ghzzuudvtB16.50Arthralgia Modified On:07/16/2022U Status:qdufeoruqC35.90Hearing loss Modified On:07/16/2022 Status:jxrsnsstwM29.00Well adult Modified On:07/16/2022 Status:sgikscfkjO87.9Irritable bowel syndrome Modified On:07/17/2022 Status:visvombekY78.0Leg edema, right Modified On:07/16/2022 Status:gnbmzxjjvQ17.9Umbilical hernia Modified On:07/16/2022 Status:cwjuxxdtcA67.9Gastroenteritis Modified On:07/16/2022 Status:fmucmxzgnE78.3Over weight Modified On:07/16/2022 Status:xfvcpakanJ65.0Ankle edema Modified On:07/16/2022 Status:zicgucvgqU85.30Calcaneal spur Modified On:07/16/2022 Status:gfstbuampN23.40Impingement syndrome, shoulder Modified On:07/16/2022 Status:jxndfkpnmY47Vtag of toe Modified On:07/16/2022 Status:bgbhnmmzqJ87.1Premature atrial contractions Modified On:07/16/2022 Status:gjwhnaoakV99.629TMJ syndrome Modified On:07/16/2022 Status:kxnrwvddxX69.1COVID-19 virus infection Modified On:07/16/2022 Status:yslngzsodF47.4Atrophy of thyroid Modified On:07/16/2022 Status:pfrgzybukA64.50Low back pain, unspecified Modified On:07/16/2022 Status:ghqlnhypfV76.89Other cerebrovascular disease Modified On:07/16/2022 Status:nodupifngW45.40Controlled type 2 diabetes mellitus with diabetic neuropathy, unspecified watermelon inspector insulin use status Modified On:06/11/2022 Status:elfnvatyqR54.4Weight loss observed on examination Modified On:07/17/2022 Status:xaefphzogL33.829Leukocytosis, unspecified type Modified On:07/18/2022 Status:ryhhwqwiwG77.89Other specified noninfective gastroenteritis and colitis Modified On:08/13/2022 Status:fwfwhyzbmA05.1Tinea unguium Modified On:09/20/2022 Status:ksytbxezmS51.9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 Modified On:09/20/2022 Status:xgtnthvsoC96.0Atrioventricular block, first degree Modified On:09/17/2023 Status:rluoeiwexD72.29Occlusion and stenosis of carotid artery Modified On:11/04/2023U Status:mdhsdowmuX96.18Gluteal pain Modified On:12/22/2023 Status:cuufjlqgyG23.9Prostatitis Modified On:01/05/2024 Status:eskcrqcduL94.9Anemia, iron deficiency Modified On:01/14/2024 Status:grvnbshqwF85.9GERD (gastroesophageal reflux disease) Modified On:01/14/2024 Status:kywoqriayN99.9Acquired hypothyroidism Modified On:01/14/2024 Status:tzmyfaqmxN04.00Hypercholesteremia Modified On:01/14/2024 Status:gesrdnbsqF44.9TIA (transient ischemic attack) Modified On:01/14/2024 Status:nculkasnmY70.9Peripheral neuropathy Modified On:06/25/2024U Status:fmjvyprmuV91.579Ankle pain Modified On:07/05/2024U Status:vubvvsafvS59.071Arthritis of ankle, right Modified On:07/06/2024U Status:vwyxnooepQ25.643Hand pain Modified On:08/23/2024U Status:zreeztzpvY88.9Abnormal laboratory test Modified On:10/14/2024 Status:wywudbyuuY75.30Chronic kidney disease (CKD), stage III (moderate) Modified On:01/21/2025U Status:mfflusyshT27.90Acute sinusitis Modified On:02/07/2025 Status:confirmed * Medical History: * Surgical History: V asectomy 1980Umbilical Hernia Repair 1983Lower Back L4-L5 1985Appendectomy 1992Torn Macula-LEFT 1998Cataract Removal- LEFT 2000Rotator cuff- LEFT 2008Elbow Right 2007Carpal Tunnel- RIGHT 2008Cataract removal- RIGHT 2013Left eye- new lens 2017Left eye- fix lens 2018Prostate 2020 * Hospitalization/Major Diagno stic Procedure: * Family History: F ather: , diagnosed with Heart Disease, Diabetes. M other: , Female cancers- unsure which. B andreaer(s): . S ister(s): alive, stroke, COPD. D alejandrinaer(s): fibromyalgia. 1 brother(s) , 2 sister(s) . 2 son(s) , 4 daughter(s) . . * Social History: ???Tobacco Use:?Tobacco Use/Smoking?Patient is a?former smoker ?When did you start smoking??04/07/1951 ?When did you stop smoking??04/07/1953 ?How long has it been since you last smoked? > 10 years ?Additional Findings: Tobacco Non-User?Current non-smoker * Medications: T akingAtorvastatin Calcium 40 MG Tablet 1 tablet Orally Once a day Blood Glucose Meter Chlorthalidone 25 MG Tablet 1 tablet in the morning with food Orally Diclofenac Sodium 75 MG Tablet Delayed Release 1 tablet as needed Orally Twice a day Ferrous Sulfate 325 (65 Fe) MG Tablet 1 tablet Orally daily Gabapentin 100 MG Capsule 1 capsule Orally qhs hydrALAZINE HCl 100 MG Tablet 1 tablet with food Orally Twice a day Levothyroxine Sodium 50 MCG Tablet 1 tablet in the morning on an empty stomach Orally Once a day Liothyronine Sodium 5 mcg Tablet TAKE 2 TABLETS BY MOUTH DAILY NIFEdipine ER 60 MG Tablet Extended Release 24 Hour 1 tablet on an empty stomach Orally Once a day oxyBUTYnin Chloride 5 MG Tablet 1 tablet Orally Once a day Pantoprazole Sodium 40 mg Tablet Delayed Release TAKE 1 TABLET BY MOUTH EVERY EVENING Plavix(Clopidogrel Bisulfate) 75 MG Tablet 1 tablet Orally Once a day Sucralfate 1 GM Tablet 1 tablet on an empty stomach Orally 4 times a day Tamsulosin HCl 0.4 MG Capsule 1 capsule Orally Once a day tiZANidine HCl 4 MG Tablet 1 tablet Orally at bedtime True Metrix Blood Glucose Test(Glucose Blood) - Strip use 1 strip via meter Daily Medication List reviewed and reconciled with the patientTaking Atorvastatin Calcium 40 MG Tablet 1 tablet Orally Once a day Taking Blood Glucose Meter Taking Chlorthalidone 25 MG Tablet 1 tablet in the morning with food Orally Taking Diclofenac Sodium 75 MG Tablet Delayed Release 1 tablet as needed Orally Twice a day Taking Ferrous Sulfate 325 (65 Fe) MG Tablet 1 tablet Orally daily Taking Gabapentin 100 MG Capsule 1 capsule Orally qhs Taking hydrALAZINE HCl 100 MG Tablet 1 tablet with food Orally Twice a day Taking Levothyroxine Sodium 50 MCG Tablet 1 tablet in the morning on an empty stomach Orally Once a day Taking Liothyronine Sodium 5 mcg Tablet TAKE 2 TABLETS BY MOUTH DAILY Taking NIFEdipine ER 60 MG Tablet Extended Release 24 Hour 1 tablet on an empty stomach Orally Once a day Taking oxyBUTYnin Chloride 5 MG Tablet 1 tablet Orally Once a day Taking Pantoprazole Sodium 40 mg Tablet Delayed Release TAKE 1 TABLET BY MOUTH EVERY EVENING Taking Plavix(Clopidogrel Bisulfate) 75 MG Tablet 1 tablet Orally Once a day Taking Sucralfate 1 GM Tablet 1 tablet on an empty stomach Orally 4 times a day Taking Tamsulosin HCl 0.4 MG Capsule 1 capsule Orally Once a day Taking tiZANidine HCl 4 MG Tablet 1 tablet Orally at bedtime Taking True Metrix Blood Glucose Test(Glucose Blood) - Strip use 1 strip via meter Daily Medication List reviewed and reconciled with the patient * Allergies: N .K.D.A.no[Allergies Verified] Objective: * Vitals: W t:164.2lbs, Ht: 68 in, BP:144/60mm Hg, Temp:96.0F, BMI:24.96Index, Ht-cm: 172.72 cm, Wt-k.48 kg. * Examination: ???Physical Exam: ?GENERAL:?well developed, well nourished, in no acute distress.?HEAD:?normocephalic/atraumatic.?EYES:?pupils equal, round and reactive to light, conjunctivae and sclerae normal.?EARS:?no deformity or lesion of external ear, canals and TM appear normal bilaterally, TM's intact, not inflamed with normal light reflex, hearing grossly normal to conversational speech.?NOSE:?no deformity, discharge, inflammation, or lesions. ?MOUTH:?mucous membranes moist, normal oropharynx and posterior pharynx without lesions or exudates, tongue normal, dentition normal.?NECK:?neck supple, no masses or palpable cervical nodes, trachea midline, thyroid without nodules, masses, tenderness, or enlargement.?CHEST:?no chest wall deformity, no chest wall tenderness. ?LUNGS:?normal respiratory effort and clear to auscultation, no wheezes, rales, or rhonchi, good air exchange.?CARDIO:?regular rate and rhythm, normal S1 and S2, nor murmur, rub, or gallop.?PULSES:?normal capillary refill.?ABDOMEN:?soft, non-distended, non-tender, no masses.?MUSCULOSKELETAL:?no deformity or scoliosis noted, normal range of motion, joints normal, no erythema, edema, effusion, or ecchymosis.?EXTREMITY:?no clubbing, cyanosis, edema, or deformity withnormal ROM in both upper and lower bilateral extremities.?NEUROLOGIC:?grossly normal.?SKIN:?no rashes, ulcerations, or suspicious lesions.?LYMPH NODES:?no cervical adenopathy, nodes normal.?MENTAL STATUS:?alert and oriented x3, normal mood and affect.? Assessment: * Assessment: 1.?Acute sinusitis - J01.90 (Primary)??? Plan: * Treatment: Start Amoxicillin-Pot Clavulanate Tablet, 875-125 MG, 1 tablet, Orally, every 12 hrs Void after 02/19/2025, 10 days, 20 Tablet, Refills 0.?LAB: COVID-19, Flu A+B IH (Collection Date & Time - 02/07/2025) * Labs: * L ab: COVID-19, Flu A+B IH (Collection Date & Time - 02/07/2025) ?ValueReference Range?COVIDneg * F MATT A neg * F MATT B neg * C ontrol present * Procedure Codes: 8 7636 SARSCOV2 & INF A&B AMP PRB, Modifiers: QW * Preventive Medicine: ??Screenings/Counseling:?FALL RISK SCREENING?Fall Risk Assessment:?No falls in the past year * * Sign off status: CompletedVisit Status:?CHK (Check Out) true * Provider: Trina Berg ([facility])MD Date: 04/09/2024 Generated for Printing/FaProfitek/eTranInbilinitting on:?02/11/2025 07:10 AM EST History and Physical Notes * Examination CategorySub-CategoryDetailNotesCategory NotesPhysical ExamGENERAL:well developed, well nourished, in no acute distressHEAD:normocephalic/atraumatic EYES:pupils equal, round and reactive to light, conjunctivae and sclerae normal EARS:no deformity or lesion of external ear, canals and TM appear normal bilaterally, TM's intact, not inflamed with normal light reflex, hearing grossly normal to conversational speechNOSE:no deformity, discharge, inflammation, or lesionsMOUTH:mucous membranes moist, normal oropharynx and posterior pharynx without lesions or exudates, tonguenormal, dentition normalNECK:neck supple, no masses or palpable cervical nodes, trachea midline, thyroid without nodules, masses, tenderness, or enlargementCHEST:no chest wall deformity, no chest wall tendernessLUNGS:normal respiratory effort and clear to auscultation, no wheezes, rales, or rhonchi, good air exchangeCARDIO:regular rate and rhythm, normal S1 and S2, nor murmur, rub, or gallopPULSES:normal capillary refillABDOMEN:soft, non-distended, non-tender, no massesRECTAL:MUSCULOSKELETAL:no deformity or scoliosis noted, normal range of motion, joints normal, no erythema, edema, effusion, or ecchymosisEXTREMITY:no clubbing, cyanosis, edema, or deformity with normal ROM in both upper and lower bilateral extremitiesNEUROLOGIC:grossly normalSKIN:no rashes, ulcerations, or suspicious lesionsLYMPH NODES:no cervical adenopathy, nodes normalMENTAL STATUS:alert and oriented x3, normal mood and affect
--- OUTSIDE RECORDS SUMMARY | 2025-02-11 07:09 | XMS_ITS | CCD ---
[facility] Providers Care Mine Wirer Name Role Phone CHET NESBITT Unavailable Unavailable CHET NESBITT Unavailable Unavailable ERIN ZHANG Unavailable Unavailable PHYSICIAN, DEFAULT Unavailable Unavailable PHYSICIAN, DEFAULT Unavailable Unavailable PHYSICIAN, DEFAULT Unavailable Unavailable PHYSICIAN, DEFAULT Unavailable Unavailable Chevy Robins Unavailable Erin Zhang Primary Care Physician VICENTE ., DR KHAN [...] Primary Care Unavailable ALGHOTHANI, ARNEL Attending Unavailable ALGHOTHKAYLENE, MOHALYSSAD Admitting Unavailable HOY ., DR KHAN [...] HOY ., DR KHAN Consulting Unavailable Geovany Jenkins Consulting Unavailable HOY ., DR KHAN Consulting Unavailable HOY ., DR KHAN Primary Care Unavailable HOY ., DR KHAN Attending Unavailable HOY ., DR KHAN Admitting Unavailable Geovany Jenkins Consulting Unavailable Darien REYNOLDS Attending Unavailable Darien REYNOLDS Attending Unavailable Alli MUKHERJEE Attending Unavailable Erin Zhang Referring Unavailable Ignacioy Erin GARCIA Primary Care Provider [phone] Erin Zhang MD Primary Care Provider [phone] ERIKA DOTSON Referring Unavailable ERIN ZHANG Primary Care Unavailable ERIKA DOTSON Attending Unavailable ERIN ZHANG Referring Unavailable ERIN ZHANG Primary Care Unavailable ERIKA DOTSON Attending Unavailable ERIN ZHANG Referring Unavailable ERIN ZHANG Primary Care Unavailable CHIDI SHRESTHA Attending Unavailable CHARMAINE JENKINS Attending Unavailable ARNEL KELLOGG Attending Unavailable Erin Zhang MD Primary Care Provider [phone] Sarbjit Tran MD Attending Provider Allergies Allergy ClassificationReported Allergen(s)Allergy TypeDate of OnsetReaction(s) Facility (1 source)No Known Medication Allergies; Translations: [No Known Medication Allergies]Propensity to adverse reactions (disorder)[facility] Repository (1 source)Adhesive agent; Translations: [ADHESIVE]Propensity to adverse reactions to drug (disorder)63-78-5121JsnhtqxwhwOhio[facility] Medications Current Medications MedicationDrug Class(es)DatesSig (Normalized)Sig (Original)Ascorbic Acid (2 sources)Vitamin CStart: 47-92-3785Ngzgxvo C Daily, Refills(s) 0 Start Date: 09/14/20 Status: Orderedaspirin 81 mg chewable tablet (6 sources)Platelet Aggregation Inhibitor, Nonsteroidal Anti-inflammatory Drug Start: 59-18-4098pekwynp 81 mg chewable tablet Indications: Occlusion and stenosis of unspecified carotid artery , Bilateral carotid artery stenosis without cerebral infarction Chew 1 tablet (81 mg total) and swallowin the morning. 30 tablet 12 11/13/2023 Activeatorvastatin 40 mg oral tablet (13 sources)HMG-CoA Reductase InhibitorStart: 11-13-2023 End: 78-51-1554fxcq 1 tablet by mouth once dailyAtorvastatin 40 mg tablet Active 40 MG PO Daily May 11, 2024 1:00am Complies with drug therapybudesonide 3 mg delayed release oral capsule (2 sources)CorticosteroidStart: 02-89-5100Pczqdgsisp 3 MG 1capsule Orally take 3 capsules for four weeks then 2 capsules for 4 weeks then take 1 capsule for 4 weeks for 90 days Sep, ActiveStart: 87-63-7447Tyccqhilps 3 MG 2 capsules for 14 days, 1 capsules for 14 days Orally Once a day for 28 days Nov, Activecetirizine hydrochloride 10 mg oral tablet (6 sources)Histamine-1 Receptor Antagonisttake 1 tablet by mouth in the morning cetirizine (ZyrTEC) 10 mg tablet Take 1 tablet (10 mg total) by mouth in the morning. Activechlorthalidone 25 mg oral tablet (1 source)Thiazide-like DiureticStart: 98-78-9747sfrh 1 tablet by mouth once dailyChlorthalidone 25 mg tablet Active 25 MG PO Daily January 18, 2025 12:00am Complies with drug therapychondroitin sulfates 400 mg / glucosamine hydrochloride 500 mg oral tablet (6 sources)take 1 tablet by mouth in the morningglucosamine-chondroitin 500-400 mg tablet Take 1 tablet by mouth in the morning and 1 tablet beforebedtime. Activeclopidogrel 75 mg oral tablet (9 sources)P2Y12 Platelet InhibitorStart: 11-13-2023 End: 60-51-3351vlqr 1 tablet by mouth once dailyClopidogrel 75 mg tablet Active 75 MG PO Daily May 11, 2024 1:00am Complies with drug therapydiclofenac sodium 75 mg delayed release oral tablet (9 sources)Nonsteroidal Anti-inflammatory DrugStart: 66-57-5525zirv 1 tablet by mouth once daily as neededDiclofenac Sodium 75 mg tablet,delayed release (DR/EC) Active 75 MG PO Daily as needed January 18, 2025 12:00am Complies with drug therapyStart: 11-27-2021 End: 35-03-6655dcho 1 tablet by mouth twice dailyDiclofenac Sodium 75 mg tablet,delayed release (DR/EC) Discontinued 75 MG PO Twice daily May 11, 2024 1:00am May 11, 2024 10:54amDiclofenac 75mg Tab-DR (1 source)Start: 89-46-8339mvku 1 tablet by mouth twice dailyDiclofenac 75mg Tab-DR 75 mg, Oral, BID Start Date: 11/27/21 Status: Ordereddocusate sodium 100 mg oral capsule (6 sources)docusate sodium (COLACE) 100 mg capsule Take 1 capsule (100 mg total) by mouth as needed for constipation. Activeferrous sulfate 325 mg oral tablet (5 sources)Start: 30-14-8788iyty 1 tablet by mouth once dailyFerrous Sulfate (Ferosul) 325 mg (65 mg iron) tablet Active 325 MG PO Daily January 18, 2025 12:00am Complies with drug therapytake 1 tablet by mouth once daily at breakfast ferrous sulfate 325 (65 FE) MG tablet Take 1 tablet (325 mg total) by mouth daily with breakfast. ActiveFish Oils (2 sources)Start: 99-56-7980Gzwf Oil Oral, Refill(s) 0 Start Date: 09/14/20 Status: Orderedfurosemide 20 mg oral tablet (3 sources)Loop DiureticStart: 00-31-4312uabn 1 tablet by mouth once daily furosemide 20 mg Tab 20 mg = 1 tab(s), Oral, Daily Start Date: 11/27/21 Status: Orderedtake 1 tablet by mouth every twelve hoursFurosemide 20 MG 1 tablet Orally twice a day Activegabapentin 100 mg oral capsule (5 sources)Anti-epileptic AgentStart: 35-32-0037quby 1 capsule by mouth once daily at bedtimeGabapentin 100 mg capsule Active 100 MG PO Daily at bedtime January 18, 2025 12:00am Complies with drug therapytake 1 capsule by mouth three times dailygabapentin (NEURONTIN) 100 mg capsule Take 1 capsule (100 mg total) by mouth 3 (three) times a day.Activegarlic preparation 1 mg oral capsule (6 sources)Non-Standardized Food Allergenic Extractgarlic 1 mg capsule Take 500 mg by mouth. Activeginger root 250 mg oral capsule (6 sources)jaye, Zingiber officinalis, (JAYE EXTRACT) 250 mg capsule Take 250 mg by mouth. ActivehydrALAZINE hydrochloride 100 mg oral tablet (12 sources)Arteriolar VasodilatorStart: 93-43-8838ipvp 1 tablet by mouth twice dailyHydralazine 100 mg tablet Active 100 MG PO Twice daily May 11, 2024 1:00am Complies with drugtherapyStart: 17-59-8867bqdp 1 tablet by mouth four times dailyhydrALAZINE 50 mg Tab 50 mg = 1 tab(s), Oral, QID Start Date: 11/27/21 Status: OrderedHyoscyamine (1 source)Hyoscyamine Activelecithin 1200 mg oral capsule (6 sources)lecithin 1,200 mg capsule Take 1,200 mg by mouth. Activelevothyroxine sodium 0.05 mg oral tablet (13 sources)l-ThyroxineStart: 79-92-0250eehq 1 tablet by mouth once daily Levothyroxine (Synthroid) 50 mcg tablet Active 50 MCG PO Daily October 26, 2020 12:00am Complies with drug therapyStart: 69-03-4341fyic 1 tablet by mouth once dailylevothyroxine 50 mcg (0.05 mg) Tab mcg tab(s), Oral, Daily, Refills(s) 0 Start Date: 09/14/20 Status: Orderedliothyronine sodium 0.005 mg oral tablet (7 sources)l-TriiodothyronineStart: 45-09-5038vend 1 tablet by mouth once daily Liothyronine 5 mcg tablet Active 10 MCG PO Daily May 11, 2024 1:00am Complies with drug therapytake 2 tablets by mouth in the morningliothyronine (CYTOMEL) 5 MCG tablet Take 2 tablets (10 mcg total) by mouth in the morning. Activetake 1 mL intravenously every eight hours as neededLiothyronine Sodium 10 MCG/ML 1 mL as needed Intravenous every 8 hrs Sorfkzvdjlvbio-pvwkrdmx-fjnubxr fum (MULTI VITAMIN) 9 mg iron/15 mL liquid (6 sources)obsjfmkv-ptxzmoah-whpjnvw fum (MULTI VITAMIN) 9 mg iron/15 mL liquid Indications: mineral deficiency prevention Take 500 mg by mouth Indications: treatment to prevent mineral deficiency. Qngfpsjbmsrzqn-iiubxkvw-qauaxjv fum (MULTI VITAMIN) 9 mg iron/15 mL liquid Indications: mineral deficiency prevention Take 500 mg by mouth. ActiveNIFEdipine 60 mg osmotic 24 hr extended release oral tablet (8 sources)Dihydropyridine Calcium Channel BlockerStart: 65-78-4393bfea 1 tablet by mouth once dailyNifedipine 60 mg tablet extended release 24hr Active 60 MG PO daily August 03, 2024 12:00am Complies with drug therapyStart: 05-11-2024 End: 62-47-7623cnrv 1 tablet by mouth once dailyNifedipine 60 mg tablet extended release Discontinued 60 MG PO Daily May 11, 2024 1:00am August 03, 2024 3:45pmtake 1 tablet by mouth every twenty-four hours in the morningNIFEdipine CC (ADALAT CC) 60 MG 24 hr tablet Take 1 tablet (60 mg total) by mouth in the morning. Activeoxybutynin chloride 5 mg oral tablet (12 sources)Cholinergic Muscarinic AntagonistStart: 63-71-3511dvsh 1 tablet by mouth once dailyOxybutynin Chloride 5 mg tablet Active 5 MG PO Daily May 11, 2024 1:00am Complies with drug therapyStart: 95-91-9562itkz 1 tablet by mouth once dailyoxybutynin 5 mg Tab 5 mg = 1 tab(s), Oral, Daily, # 30 tab(s), Refills(s) 11, Pharmacy: [facility], 172, cm, 06/11/22 9:50:00 EST, Height/Length Dosing, 85.4, kg, 06/11/22 9:50:00 EST, Weight Dosing Start Date: 08/01/22 Status: OrderedPantoprazole 40 mg tablet,delayed release (DR/EC) (1 source)Start: 06-68-8574qzps 1 tablet by mouth once daily in the morning Pantoprazole 40 mg tablet,delayed release (DR/EC) Active 40 MG PO Every morning August 03, 2024 12:00ampotassium chloride 10 meq extended release oral tablet (7 sources)Start: 10-32-9164rhnv 1 tablet by mouth in the morningpotassium chloride (K-TAB,KLOR-CON) 10 MEQ CR tablet Take 1 tablet (10 mEq total) by mouth in the morning and 1 tablet (10 mEq total) in the evening. Take with meals. 11/05/2023 Activetake 1 capsule by mouth every twelve hoursPotassium Chloride ER 10 MEQ 1 capsule with food Orally Twice a day Activesucralfate 1000 mg oral tablet (9 sources)Aluminum ComplexStart: 46-56-0467lgno 1 tablet by mouth four times dailySucralfate 1 gram tablet Active 1 GM PO Four times daily May 11, 2024 1:00am Complies with drug therapytake 1 tablet by mouth once daily in the morningsucralfate (CARAFATE) 1 gram tablet Take 1 tablet (1 g total) by mouth every morning. Activetake 1 tablet by mouth every twelve hoursSucralfate 1 GM 1 tablet on an empty stomach Orally Twice a day Activetamsulosin hydrochloride 0.4 mg oral capsule (13 sources)alpha-Adrenergic BlockerStart: 47-57-5547jwxd 1 capsule by mouth twice dailytamsulosin 0.4 mg Cap 0.4 mg = 1 cap(s), Oral, BID Start Date: 11/27/21 Status: OrderedStart: 88-42-0962abvm 1 capsule by mouth once daily Tamsulosin 0.4 mg capsule Active 0.4 MG PO Daily October 26, 2020 12:00am Complies with drug therapytiZANidine 4 mg oral tablet (12 sources)Central alpha-2 Adrenergic AgonistStart: 94-78-9399wrzm 1 tablet by mouth once daily at bedtime as neededTizanidine 4 mg tablet Active 4 MG PO Daily at bedtime as needed August 03, 2024 12:00am Complies with drug therapyStart: 97-47-8017xxvn 1 tablet by mouth every eight hourstiZANidine 4 mg Tab 4 mg = 1 tab(s), Oral, q8hr Start Date: 11/27/21 Status: Orderedturmeric-turmeric root extract 450-50 mg capsule (6 sources)turmeric-turmeric root extract 450-50 mg capsule Take 50 mg by mouth. Activevitamin a 98563 unt oral capsule (2 sources)Vitamin AStart: 85-93-3812irkjncj A 25,000 units oral capsule Refills(s) 0 Start Date: 09/14/20 Status: Orderedvitamin B12 (2 sources)Vitamin V31Kjxce: 89-44-2711Eispprx B12 Refills(s) 0 Start Date: 09/14/20 Status: OrderedVitamin B6 (2 sources)Start: 14-53-5131Tjukiux B6 Daily, Refills(s) 0 Start Date: 09/14/20 Status: OrderedVitamin D (2 sources)Start: 00-65-7997Vinwbza D International_Unit, Oral, Daily, Refills(s) 0 Start Date: 09/14/20 Status: OrderedVitamin E (2 sources)Start: 55-69-0105nreaztt E Oral, Daily, Refills(s) 0 Start Date: 09/14/20 Status: Ordered Completed/Discontinued Medications MedicationDrug Class(es)DatesSig (Normalized)Sig (Original)amLODIPine 10 mg oral tablet (13 sources)Dihydropyridine Calcium Channel BlockerStart: 10-26-2020 End: 04-40-2072xvpc 5 mg by mouth once dailyAmlodipine 10 mg tablet Discontinued 5 MG PO Daily October 26, 2020 12:00am May 11, 2024 10:41amStart: 24-88-7179eqbn 1 mg by mouth once dailyamLODIPine 5 mg Tab mg tab(s), Oral, Daily, Refills(s) 0 Start Date: 09/14/20 Status: Orderedtake 1 tablet by mouth in the morningamLODIPine (NORVASC) 10 mg tablet Take 1 tablet (10 mg total) by mouth in the morning. Activeglimepiride 2 mg oral tablet (11 sources)SulfonylureaStart: 09-14-2020 End: 50-64-0837akfo 1 tablet by mouth once dailyGlimepiride 2 mg Tablet Discontinued 2 MG PO Daily October 26, 2020 12:00am May 11, 2024 10:42am lisinopril 20 mg oral tablet (16 sources)Angiotensin Converting Enzyme InhibitorStart: 08-03-2024 End: 79-09-1815xrzu 1 tablet by mouth once dailyLisinopril 20 mg tablet Discontinued 20 MG PO Daily August 03, 2024 12:00am January 18, 2025 1:50pm Start: 05-11-2024 End: 70-23-6521Itciqjqhgd 30 mg tablet Discontinued 20 MG PO Daily May 11, 2024 10:42am August 03, 2024 3:43pmStart: 72-51-8274ztdi 1 tablet by mouth once dailylisinopril 20 mg Tab 20 mg = 1 tab(s), Oral, Daily Start Date: 06/11/22 Status: OrderedStart: 09-14-2020 End: 87-15-2733ofcz 1 tablet by mouth once dailyLisinopril 30 mg tablet Discontinued 30 MG PO Daily October 26, 2020 12:00am May 11, 2024 10:48am take 1 tablet by mouth in the morninglisinopril (PRINIVIL,ZESTRIL) 40 mg tablet Take 1 tablet (40 mg total) by mouth in the morning. Activemeloxicam 15 mg oral tablet (3 sources)Nonsteroidal Anti-inflammatory DrugStart: 10-26-2020 End: 80-33-6776xqgv 1 tablet by mouth once dailyMeloxicam (Mobic) 15 mg tablet Discontinued 15 MG PO Daily October 26, 2020 12:00am May 11, 2024 10:42am pantoprazole 40 mg oral granules (10 sources)Proton Pump InhibitorStart: 05-11-2024 End: 02-15-4736jxpr 40 mg by mouth once dailyPantoprazole [address] for susp in packet Discontinued 40 MG PO Daily May 11, 2024 1:00am August 03, 2024 3:44pmStart: 57-36-3192kvif 1 tablet by mouth once daily in the morning Pantoprazole 40 mg tablet,delayed release (DR/EC) Active 40 MG PO Every morning August 03, 2024 12:00am Complies with drug therapytake 1 tablet by mouth every twenty-four hoursPantoprazole Sodium 40 MG 1 tablet Orally Once a day Active Problems Active Problems Problem ClassificationProblemDateDocumented DateEpisodic/ChronicAbdominal pain (4 sources)Generalized abdominal pain; Translations: [GENERALIZED ABDOMINAL PAIN]Onset: 68-94-9316XtgutoenKotsxzq tract disease (1 source)Calculus of gallbladder without cholecystitis without obstruction; Translations: [CALCU GB W/O CHOLECYST W/O OBST]Onset: 28-85-8334AvhpwvgwTelzscr dysrhythmias (2 sources)Bradycardia, unspecified; Translations: [Bradycardia, unspecified] Onset: 47-92-9604DccvkjojPqoywac kidney disease (10 sources)Chronic kidney disease, unspecified; Translations: [Chronic kidney disease stage 3B ]Onset: 117811-28-5020WsfvnggMcauaeusrf associated with dizziness or vertigo (3 sources)Dizziness and giddiness; Translations: [DIZZINESS AND GIDDINESS] Onset: 20-67-2232QbpsinndJrbptlvytr disorders (1 source)Unspecified atrioventricular block; Translations: [UNSPECIFIED ATRIOVENTRICULAR BLOCK]Onset: 31-83-6761TuzbpjmUbeqhqsoih and other anemia (1 source)Iron deficiency anemia, unspecified; Translations: [IRON DEFICIENCY ANEMIA UNSPECIFIED]Onset: 58-03-2405WplzsgozUfkjscysvx and other anemia (1 source)Anemia; Translations: [Anemia, unspecified]26-00-4706ObeafmxjUigpnxav mellitus with complications (6 sources)Type 2 diabetes mellitus with hypoglycemia without coma; Translations: [Type 2 diabetes mellitus with diabetic neuropathy, unspecified] Onset: 43-03-1352ZmoyvutHtttnnxv mellitus without complication (2 sources)Type 2 diabetes jjjyrkds28-59-7495FxwbmscWnyfribs of white blood cells (4 sources)Elevated white blood cell count, unspecified; Translations: [ELEVATED WHITE BLOOD CELL COUNT UNS]Onset: 68-41-9020XxurnivFgtexjjvd of lipid metabolism (1 source)Hyperlipidemia, unspecified; Translations: [HYPERLIPIDEMIA UNSPECIFIED]Onset: 89-37-6092MyiyhogF Codes: Adverse effects of medical drugs (1 source)Adverse effect of insulin and oral hypoglycemic [antidiabetic] drugs, initial encounter; Translations: [ADVERS EFF INSULIN ORAL HG RX INIT]Onset: 61-93-4303YkgzclunAjqzszvyu hypertension (6 sources)Hypertensive disorder; Translations: [Essential (primary) hypertension]Onset: 552381-37-2045EsfjlrcBktyb and electrolyte disorders (5 sources)Hyperkalemia; Translations: [Hyperkalemia]72-80-8191Lgngxiyg Genitourinary symptoms and ill-defined conditions (7 sources)Nocturia; Translations: [Nocturia]Onset: 48-01-7299Icahztog Hyperplasia of prostate (9 sources)Benign prostatic hypertrophy with outflow obstruction; Translations: [Benign prostatic hyperplasia with lower urinary tract symptoms]Onset: 32-78-3489DpnmyonAywzhfyvdgzt with complications and secondary hypertension (10 sources)Hypertensive chronic kidney disease with stage 1 through stage 4 chronic kidney disease, or unspecified chronic kidney disease; Translations: [Hypertensive renal disease]Onset: 468106-45-0129XapiufzEcjmupv and fatigue (2 sources)Weakness; Translations: [Other fatigue]Onset: 93-25-7804Edwvffzf Menopausal disorders (1 source)Hormone replacement therapy; Translations: [HORMONE REPLACEMENT THERAPY]Onset: 30-26-3631KjcptkrsWkmbgxbyljzqn gastroenteritis (10 sources)Microscopic colitis; Translations: [Other specified noninfective gastroenteritis and colitis]Onset: 12-27-2020 Resolved: 35-17-5091UckblfqdAsnpzddyamm deficiencies (5 sources)Vitamin D deficiency; Translations: [Vitamin D deficiency, unspecified]72-48-2658IbcdqsoJukqchahd or stenosis of precerebral arteries (20 sources)Carotid artery occlusion; Translations: [Occlusion and stenosis of unspecified carotid artery]Onset: 639810-55-5206RnyxrhjGolkvbhicwxxyn (1 source)Unspecified osteoarthritis, unspecified site; Translations: [UNSPECIFIED OSTEOARTHRITIS UNS SITE]Onset: 89-02-0531VzdjikjUytjs aftercare (1 source)Other adjunct faculty for medical terminology (current) drug therapy; Translations: [OTH HALF-WAY CURRENT DRUG THERAPY]Onset: 37-26-2869ByqopovyPkpyg diseases of kidney and ureters (2 sources)Disorder of kidney and ureter, unspecified; Translations: [Disorder of kidney and ureter, unspecified]Onset: 50-05-7544KxbvkbliHnemo gastrointestinal disorders (5 sources)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 EHR CmteOther gastrointestinal disorders (1 source)Incontinence of feces; Translations: [Full incontinence of feces] EpisodicOther gastrointestinal disorders (1 source)Diarrhea, unspecified; Translations: [Diarrhea]EpisodicOther nutritional; endocrine; and metabolic disorders (3 sources)Weight loss; Translations: [Abnormal weight loss]EpisodicOther nutritional; endocrine; and metabolic disorders (2 sources)Body mass index 25-29 - -28-9084VqihwncpVqlrb nutritional; endocrine; and metabolic disorders (1 source)Abnormal weight loss; Translations: [ABNORMAL WEIGHT LOSS]Onset: 72-13-4959PnqtwgtnDyrflgxlut and visceral atherosclerosis (1 source)Unspecified atherosclerosis; Translations: [UNSPECIFIED ATHEROSCLEROSIS]Onset: 59-17-0968ImcbmepTuhzgccky and history of mental health and substance abuse codes (1 source)Personal history of nicotine dependence; Translations: [PERSONAL HISTORY OF NICOTINE DEPEND]Onset: 95-43-1651HsctucvhVvnpbucvkxk; intervertebral disc disorders; other back problems (5 sources)Spinal stenosis, lumbar region without neurogenic claudication; Translations: [SPINAL STENOSIS LUMBAR REGION NO NC]Onset: 07-94-4761Mnlfgonu Thyroid disorders (1 source)Hypothyroidism, unspecified; Translations: [HYPOTHYROIDISM UNSPECIFIED]Onset: 84-15-9839CyecgfhDjgnitstalqj (1 source)DISLOCATED IOL LEFT EYE / DISLOCATED IOL LEFT EYE()Onset: 01-15-2017 Unclassified (1 source)CONTACT W/AND (SUSP) EXPOS COVID-19; Translations: [CONTACT W/AND (SUSP) EXPOS COVID-19]Onset: 67-98-6161Fppfttfnmajg (3 sources)LOW BACK PAIN, UNSPECIFIED; Translations: [LOW BACK PAIN, UNSPECIFIED]Onset: 84-83-5296Pbwrxjswtsms (1 source)follow up on testing of fUSOnset: 19-54-5258Worrpjqkiadn (1 source)Carotid Artery DiseaseOnset: 11-25-2024 Past or Other Problems Problem ClassificationProblemDateDocumented DateEpisodic/ChronicDiabetes mellitus without complication (1 source)Other abnormal glucose; Translations: [OTHER ABNORMAL GLUCOSE]Onset: 88-48-4505CnbukzorIpyta non-traumatic joint disorders (1 source)Pain in unspecified joint; Translations: [PAIN IN UNSPECIFIED JOINT] Onset: 33-59-6865ZsxpxqlzSwsqk screening for suspected conditions (not mental disorders or infectious disease) (2 sources)Encounter for screening for malignant neoplasm of prostate; Translations: [Encounter for screening for malignant neoplasm of colon]Onset: 02-77-1266VyvwfkfdYosdfqyh codes; unclassified (4 sources)Edema, unspecified; Translations: [EDEMA UNSPECIFIED]Onset: 67-95-8068FejjyofoPbzatezb codes; unclassified (4 sources)Localized edema; Translations: [LOCALIZED EDEMA]Onset: 04-01-2022 EpisodicUnclassified (1 source)DISLOCATED IOL LEFT EYE; Translations: [DISLOCATED IOL LEFT EYE]Onset: 77-33-8557Artqeczoqlfv (1 source)LOW BACK PAIN, UNSPECIFIED; Translations: [LOW BACK PAIN, UNSPECIFIED] Onset: 09-14-2021 Results Test NameValueInterpretationReference RangeFacilityErythrocyte distribution width Auto (RBC) [Ratio]Ordered By: Sarbjit Tran on 24-77-8940Ysqagwskalf distribution width (RBC) [Ratio]15.4 %High11.0-15.0[facility] HospitalGlomerular filtration rate (GFR) estimation in non- AmericanOrdered By: Sarbjit Tran on 25-33-9871GGA/1.73 sq M.predicted among non-blacks MDRD (S/P/Bld) [Vol rate/Area]44 mL/min/{1.73_m2}Low>=60 mL/min/1.73m 2FMary Rutan HospitalHematocrit Auto (Bld) [Volume fraction]Ordered By: Sarbjit Tran on 18-47-7004Srjbxzdiim (Bld) [Volume fraction]36.4 %Low42.0-54.[address] [facility] HospitalHemoglobin [Mass/volume] in BloodOrdered By: Sarbjit Tran on 08-81-7326Qhtlzbxzog (Bld) [Mass/Vol]11.9 g/dLLow14.0-18.[address] [facility] HospitalIron binding capacity [Mass/volume] in Serum or PlasmaOrdered By: Sarbjit Tran on 36-98-6767Tisc binding capacity [Mass/Vol] 300.0 ug/dL250.0-450.0[facility] HospitalIron saturation [Mass Fraction] in Serum or PlasmaOrdered By: Sarbjit Tran on 07-28-3317Btsf saturation [Mass fraction]34.3 %[facility] HospitalLaboratory - Chemistry and Chemistry - challengeOrdered By: Sarbjit Tran on 03-99-3657Ptkhvyx [Mass/Vol]4.1 g/dL3.4-5.0[facility] HospitalCalcium [Mass/Vol]9.1 mg/dL8.5-10.1FMary Rutan HospitalChloride [Moles/Vol]105 mmol/L 98-107[facility] HospitalCO2 [Moles/Vol]24.4 mmol/L21.0-32.[address] [facility] HospitalCobalamin (Vitamin B12) [Mass/Vol]580 pg/mL 232-1245[facility] Anne HospitalComment on above:Performed at: - [facility] [id number] Director: Zenon Rosa PhD, Phone: [phone] [Mass/Vol]1.51 mg/dLHigh0.70-1.[address] [facility] HospitalFerritin [Mass/Vol]46.0 ng/mL26.0-388.[address] [facility] HospitalGFR/1.73 sq M.predicted MDRD (S/P/Bld) [Vol rate/Area]53 mL/min/{1.73_m2}Low>=60 mL/min/1.73m 2FMary Rutan HospitalGlucose [Mass/Vol]114 mg/vNCknq01-336VlbbsuqkrMercy Health St. Anne HospitalIron [Mass/Vol]103.0 ug/dL65.0-175.0[facility] HospitalMagnesium [Mass/Vol]2.2 mg/dL1.8-2.4FMary Rutan HospitalPotassium [Moles/Vol] 4.4 mmol/L3.5-5.1FOhio Valley Hospitalodium [Moles/Vol]141 mmol/L 136-145[facility] HospitalUrate [Mass/Vol]6.0 mg/dL3.5-7.[address] [facility] HospitalUrea nitrogen [Mass/Vol]32.0 mg/dLHigh7.0-18.[address] Anne HospitalUrea nitrogen/Creatinine [Mass ratio]21.2 mg/mg [facility] HospitalBilirubin Ql (U)NegativeNEGATIVEMercy Health St. [facility] HospitalGlucose (U) [Mass/Vol]NegativeNEGATIVEMercy Health St. Anne HospitalKetones Ql (U)NegativeNEGRegency Hospital CompanypH (U)7.0 [pH]5.0-9.0[facility] Hospitalpecific gravity (U) [Rel density]1.0101.005-1.025[facility] Anne HospitalUrobilinogen Qn (U)0.2 {Jesus'U}/dL0.2-1.0[facility] HospitalLaboratory - Specimen informationOrdered By: Sarbjit Tran on 69-76-3271Fseopmejcx (U)CLEARCLEAR [facility] HospitalColor (U)LT YELLOWYELLOWMercy Health St. Anne HospitalLaboratory - UrinalysisOrdered By: Sarbjit Tran on 01-12-2025 Leukocyte esterase Test strip Ql (U)NegativeNEGATIVEMercy Health St. Anne HospitalNitrite Ql (U)NegativeNEGATIVEMercy Health St. [facility] HospitalProtein (U) [Mass/Vol]8.8 mg/dL<=11.9[facility] HospitalProtein Ql (U)Negative NEG/TRACEMercy Health St. Anne HospitalLeukocytes [#/volume] corrected for nucleated erythrocytes in Blood by Automated counOrdered By: Sarbjit Tran on 78-71-6841WFK corrected for nucl RBC Auto (Bld) [#/Vol]11.4 10 3/uLHigh4.0-11.0 [facility]H Auto (RBC) [Entitic mass]Ordered By: Sarbjit Tran on 02-96-2977RRQ (RBC) [Entitic mass]30.9 pg25.9-34.0[facility] HospitalMCHC Auto (RBC) [Mass/Vol]Ordered By: aSrbjit Tran on 01-12-2025 MCHC (RBC) [Mass/Vol]32.7 g/dL29.9-35.2FMercy Health Fairfield HospitalV Auto (RBC) [Entitic vol]Ordered By: Sarbjit Tran on 71-43-2664MHK (RBC) [Entitic vol]94.5 aABzry69.0-94.0[facility] HospitalNo Panel Information Ordered By: Sarbjit Tran on 537667-Vxrptea Vitamin D Total80.0 ng/mL [facility] HospitalComment on above:<20 ng/mL Vit D rzaarnyez20- <30 ng/mL Vit D wuoytowkjaxs33-698 ng/mL Vit D sufficient>100 ng/mL Potential ToxicityMiscellaneous TestCOMMENT.[facility] St. Anne HospitalComment on above:Test Ordered: 368012 Folate (Folic Acid), SerumFolate (Folic Acid), Serum 15.8 ng/mL CB Reference Range: >3.0A serum folate concentration of less than 3.1 ng/mL isconsidered to represent clinical deficiency.Performed at: - [facility] [id number] Director: Zenon Rosa PhD, Phone: [phone] Hormone (Intact)39 pg/wG27-48XoagopoivMercy Health St. Anne HospitalComment on above:Performed at: - [facility] [id number] Director: Zenon Rosa PhD, Phone: [phone] Phosphorus Level3.5 mg/dL2.6-4.7FMary Rutan HospitalUrine Occult BloodNegativeNEGATIVEMercy Health St. Anne HospitalUrine Random Creatinine <13.00 mg/dLLow20.00-300.00[facility] Anne HospitalPlatelet mean volume Auto (Bld) [Entitic vol]Ordered By: Sarbjit Tran on 39-41-7458Ostcfeqe mean volume (Bld) [Entitic vol]11.3 fL9.5-13.5FMary Rutan Hospital Platelets Auto (Bld) [#/Vol]Ordered By: Sarbjit Tran on 13-97-5182Jptrxhnoh (Bld) [#/Vol]295 10 3/cP360-716JziggxbwdMercy Health St. Anne HospitalRBC Auto (Bld) [#/Vol]Ordered By: Sarbjit Tran on 72-00-4757NTY (Bld) [#/Vol]3.85 10 6/uLLow 4.70-6.10[facility] Hospitalerum or plasma anion gap determinationOrdered By: Sarbjit Tran on 17-17-5380Swdmj gap [Moles/Vol]16.0 mmol/LFMary Rutan Hospital29on 20-50-281353Nlayetdf by: CHIDI SHRESTHA on: 01/05/2025 10:26 AM Modules accepted: OrdersNormalUniversUniversity Hospitals Geneva [facility]36on 01-05-2025 36Called patient to let him know labs were ok per Dr. Shrestha. I also let him know I faxed results to Dr. Zhang. Patient verbalized understanding.NormalUnAdams County HospitalOffice Visiton 10-51-8345Ucjavp-up [id number] DelgadoMason 1935 M Date Provider Department Center 01/05/2025 245-CHIDI SHRESTHA CARD [place] Family History Problem Relation Age of Onset No Known Problems Mother Diabetes Father Hypertension Father Family Status - Relation Status Age at Mother Father Sister Brother Level of Service:71161 [place] OFFICE/OUTPATIENT ESTABLISHED MOD MDM 30 MIN Reason for Visit and Comments: Follow-up [995496] - Patient is here today for a routine 6 month follow up appointment. Patient states he feels good and is able to do what he like without any problems. Patient denies chest pain, leg swelling/pain, dizziness/lightheaded, fatigue, palpitations/racing heart. Patient state his blood pressure at home have been on the high side. Bradycardia [433099] Hypertension [028895] Cerebrovascular Accident [149] Bilateral carotid artery stenosis without cerebral infarcti [Other]Normal [facility] HospitalErythrocyte distribution width Auto (RBC) [Ratio]on 42-07-2708Aqlvvcxkhxw distribution width (RBC) [Ratio]Erythrocyte distribution width [Ratio] by Automated yubslOyjx42.0-15.0[facility] HospitalEstimated glomerular filtration rate (GFR) non- Americanon 70-41-6396QAR/1.73 sq M.predicted among non-blacks MDRD (S/P/Bld) [Vol rate/Area]Estimated glomerular filtration rate (GFR) non- AmericanLow>=60 mL/min/1.73m 2FMary Rutan HospitalHematocrit Auto (Bld) [Volume fraction]on 78-67-7709Kvubilocty (Bld) [Volume fraction]Hematocrit [Volume Fraction] of Blood by Automated vovvpUiu68.0-54.0[facility] HospitalHemoglobin [Mass/volume] in Bloodon 72-60-8516Ixfadmmgls (Bld) [Mass/Vol] Hemoglobin [Mass/volume] in YmobcDad62.0-18.0[facility] - Chemistry and Chemistry - challengeon 94-77-3356Ceiudus [Mass/Vol] 3.7 g/dL3.4-5.0[facility] HospitalCalcium [Mass/Vol]9.1 mg/dL 8.5-10.1FMary Rutan HospitalChloride [Moles/Vol]107 mmol/L98-[address] [facility] HospitalCO2 [Moles/Vol]25.0 mmol/L21.0-32.0[facility] HospitalCreatinine [Mass/Vol]1.38 mg/dLHigh0.70-1.30[facility] HospitalGFR/1.73 sq M.predicted MDRD (S/P/Bld) [Vol rate/Area]59 mL/min/{1.73_m2}Low>=60 mL/min/1.73m 2FMary Rutan HospitalGlucose [Mass/Vol]141 mg/qMTvcm09-187AfzivhbywMercy Health St. Anne HospitalMagnesium [Mass/Vol]2.1 mg/dL1.8-2.4FMary Rutan HospitalPotassium [Moles/Vol] 4.0 mmol/L3.5-5.1FOhio Valley Hospitalodium [Moles/Vol]143 mmol/L 136-145[facility] HospitalUrate [Mass/Vol]6.4 mg/dL3.5-7.[address] [facility] HospitalUrea nitrogen [Mass/Vol]29.0 mg/dLHigh7.0-18.[address] [facility] HospitalUrea nitrogen/Creatinine [Mass ratio]21.0 mg/mg [facility] HospitalBilirubin Ql (U)NegativeNEGRegency Hospital CompanyGlucose (U) [Mass/Vol]NegativeNEGATIVEMercy Health St. Anne HospitalKetones Ql (U)NegativeNEGRegency Hospital CompanypH (U)5.5 [pH]5.0-9.0[facility] Hospitalpecific gravity (U) [Rel density]<=1.543Njjuncpr2.005-1.025[facility] HospitalUrobilinogen Qn (U)0.2 {Jesus'U}/dL0.2-1.0[facility] HospitalLaboratory - Specimen informationon 27-61-2836Aldmcjcjel (U)CLEARCLEARFMary Rutan HospitalColor (U)LT. YELLOWYELLOWMercy Health St. [facility] Laboratory - Urinalysison 04-23-7998Byrwqayyg esterase Test strip Ql (U)Negative NEGATIVEMercy Health St. Anne HospitalNitrite Ql (U)NegativeNEGATIVEMercy Health St. [facility] HospitalProtein Ql (U)NegativeNEG/TRACEMercy Health St. Anne HospitalLeukocytes [#/volume] corrected for nucleated erythrocytes in Blood by Automated counon 12-18-5364JIF corrected for nucl RBC Auto (Bld) [#/Vol] Leukocytes [#/volume] corrected for nucleated erythrocytes in Blood by Automated coun4.0-11.0[facility] HospitalMCH Auto (RBC) [Entitic mass]on 74-84-2337YGF (RBC) [Entitic mass]MCH [Entitic mass] by Automated count25.9-34.[address] Anne HospitalMCHC Auto (RBC) [Mass/Vol]on 09-21-0802ILAT (RBC) [Mass/Vol]MCHC [Mass/volume] by Automated count29.9-35.2FMercy Health Fairfield HospitalV Auto (RBC) [Entitic vol]on 53-21-9636KFJ (RBC) [Entitic vol] MCV [Entitic volume] by Automated count80.0-94.0[facility] HospitalMicroalbumin [Mass/volume] in Urineon 04-35-8953Qwbrtap DL <= 20 mg/L (U) [Mass/Vol]Microalbumin [Mass/volume] in Urine<=30.0[facility] HospitalNo Panel Informationon 928947-Gjkqvgm Vitamin D Total76.5 ng/mL [facility] HospitalComment on above:<20 ng/mL Vit D qxglibxlc85- <30 ng/mL Vit D yivlnxovmwae51-239 ng/mL Vit D sufficient>100 ng/mL Potential ToxicityParathyroid Hormone (Intact)37 pg/eQ09-53NjamhydurMercy Health St. Anne HospitalComment on above:Performed at: - [address] [id number] Director: Zenon Rosa PhD, Phone: [phone] Phosphorus Level3.5 mg/dL2.6-4.7FMary Rutan HospitalUrine Occult BloodNegativeNEGATIVEMercy Health St. Anne HospitalUrine Random Creatinine <13.00 mg/dLLow20.00-300.00[facility] HospitalUrine Random Total Protein<6.0 mg/dL<=11.9[facility] HospitalPlatelet mean volume Auto (Bld) [Entitic vol]on 66-44-8953Sxnjcstz mean volume (Bld) [Entitic vol] Platelet mean volume [Entitic volume] in Blood by Automated count9.5-13.[address] Anne HospitalPlatelets Auto (Bld) [#/Vol]on 07-26-2024 Platelets (Bld) [#/Vol]Platelets [#/volume] in Blood by Automated pouut495-[address] Anne HospitalRBC Auto (Bld) [#/Vol]on 85-85-9191VPZ (Bld) [#/Vol]Erythrocytes [#/volume] in Blood by Automated countLow4.70-6.10[facility] Hospitalerum or plasma anion gap determinationon 59-26-0137Qmase gap [Moles/Vol]Serum or plasma anion gap determinationMercy Health St. Anne HospitalOrders Onlyon 41-81-1514Fpyrzt [id number] Mason Natarajan 1935 M Date Provider Department Center 07/15/2024 PEDRO HUANG MARLENE Schwab Family History Problem Relation Age of Onset No Known Problems Mother Diabetes Father Hypertension Father Family Status - Relation Status Age at Mother Father Sister Brother DeceasedNormalUniCleveland Clinic Avon HospitalOffice Visiton 40-11-3720Cwonsl-up [id number] NatarajanMason Cannon 1935 M Date Provider Department Center 07/13/2024 CHARMAINE MIGUEL MARLENE Schwab Family History Problem Relation Age of Onset No Known Problems Mother Diabetes Father Hypertension Father Family Status - Relation Status Age at Mother Father Sister Brother Level of Service:01550 SC OFFICE/OUTPATIENT NEW MODERATE MDM 45 MINUTESNoal [facility]36on 57-22-614884Raswlgqcc lab results from 05/03/2024: I spoke with Dr. Kellogg regarding elevated potassium and renal function. He advised patient stop potassium, repeat labs in 5-7 days, and also see his rn urology if he has one. I then spoke with Mr. Natarajan - who said Dr. Zhang already advised him to stop potassium. He also said Dr. Zhang ordered repeat labs to be done in the next few days. He does not see a rn urology but agreed to a referral. I put one in and faxed it to [facility] in [place]. Patient verbalized understanding.NormalUniversity of Morris Medical CenterOffice Visiton 42-01-7256Mflvlt-up [id number] Mason Natarajan 1935 M Date Provider Department Center 04/30/2024 3848-BESS [facility]ANITrina [facility] Family History Problem Relation Age of Onset Diabetes Father Hypertension Father Family Status - Relation Status Age at Father Level of Service:94960 SC OFFICE/OUTPATIENT ESTABLISHED MOD MDM 30 [facility] HospitalTOOL CULTUREon 12-66-8206Ironxnqevapmp CultureFinal reportSumma Health Akron CampusComment on above:Performed By: #### CXSTOOL #### [facility] [address] [place] [address] Dr. Deepika Juarez coli Shiga Toxin EIANegativeNormalNegativeRegency Hospital Toledo Comment on above:Performed By: #### CXSTOOL #### [facility] [address] [place] [address] Dr. Deepika Campbell 1ComBarnesville HospitalComment on above:Result Comment: No Salmonella or Shigella recovered.Performed By: #### CXSTOOL #### [facility] [address] [place] [address] Dr. Deepika Campbell Comment: No Campylobacter species isolated. Salmonella/Shigella ScreenFinal [facility]-Titus Medical CenterComment on above:Performed By: #### CXSTOOL #### [facility] [address] [place] [address] Dr. Deepika Aceves. DIFF PCRon 08-13-2022. DIFFICILE PCRNegativeNormalNEGATIVERegency Hospital ToledoComment on above:Performed By: #### BMP #### [facility] [address] [place] [address] Dr. Deepika TerrellConsultation Noteon 53-33-8318Pqcuxutelwzq Note [id number]#1.00CD:127NormalAdena Fayette Medical CenterOCC BLD IMMUNO SCREENon 23-81-4560BCLMOF BLOODNegativeNormalNEGATIVEThe [facility] CenterComment on above:Performed By: #### BMP #### [facility] [address] [address] [address] Deepika Mendez - MISCon 96-84-1784GTS - MISC [id number]#1.00CD:127[facility] CampusPhysician Referralon 90-17-4968Rmblmyjvu Referral [id number]#1.00CD:127[facility] CampusNM HEPATOBILIARY SCAN W EFon 34-30-7477YP HEPATOBILIARY SCAN W EF EXAMINATION: NM HEPATOBILIARY [...] within the gallbladder. Electronically authenticated by: GEOVANY JENKINS Date: 2022-08-09 10:42NormGuernsey Memorial Hospitale [facility] SINGLE QUAD RT UPPERon 13-25-7430KX SINGLE QUAD RT UPPER EXAM: US SINGLE [...] Electronically authenticated by: KURT JOE Date: 2022-08-08 07:42[facility] CampusGLYCOHEMOGLOBIN A1Con 84-19-8879SLT RECOMMENDATIONSEE BELOW NormalThe [facility] on above:Result Comment: ADA RECOMMENDED LIMIT 4.0 - 6.0 ADA THERAPEUTIC TARGET < 7.0 ACTION SUGGESTED > 7.0Performed By: #### INSULT #### [facility] [address] [address] [address] Deepika TerrellGlucose [Mass/Vol]117 mg/dLNoLima Memorial HospitalComment on above:Performed By: #### INSULT #### [facility] [address] [address] [address] Deepika TerrellHbA1c (Bld) [Mass fraction]5.7 %Normal4.5-6.2The [facility] CenterComhurley medical center on above:Performed By: #### INSULT #### [facility] [address] [address] [address] Deepika TerrellCT ABD/PELVIS WO CONon 73-19-2526IM ABD/PELVIS WO CONEXAM: CT scan of the abdomen and pelvis [...] Electronically authenticated by: MARK LEE Date: 2022-07-20 07:40NoMer[facility] AUTO DIFFon 18-02-2623FNUG #0.0 103/ulNormal0.0-0.1The [facility] Medical CenterComment on above:Performed By: #### CBC #### [facility] [address] [place] [address] Dr. Deepika TerrellBasophils/100 WBC (Bld)0.3 %Normal0.2-2.0[facility] Comment on above:Performed By: #### CBC #### [facility] [address] [address] [address] Deepika Freitas #0.3 103/ulNormal0.0-0.7The [facility] Medical CenterComment on above: Performed By: #### CBC #### [facility] [address] [place] [address] Dr. Deepika Juarezosinophils/100 WBC (Bld)2.4 %Normal0.9-7.0[facility] Comment on above:Performed By: #### CBC #### [facility] [address] [address] [address] Deepika Juarezrythrocyte distribution width (RBC) [Ratio]14.8 %Khhuij06.0-15.0 Reg[facility] Hospital ToledoComment on above:Performed By: #### CBC #### [facility] [address] [place] [address] Dr. Deepika TerrellHematocrimalick (Bld) [Volume fraction]33.8 %Critically low42.0-54.0 [facility] Hospital ToledoComment on above:Performed By: #### CBC #### [facility] [address] [place], [place] [id number] Dr. Deepika TerrellHemoglobin (Bld) [Mass/Vol]11.0 g/dLCritically low14.0-18.0The [facility] CenterComment on above:Performed By: #### CBC #### [facility] [address] [address] [address] Deepika Brasher #0.08 10e3/ulCritically high0.00-0.03The [facility] Comment on above:Performed By: #### CBC #### [facility] [address] [place] [address] Dr. Deepika Brasher %0.7 %Critically high0.0-0.5The [facility] Medical CenterComment on above:Performed By: #### CBC #### [facility] [address] [place] [address] Dr. Deepika Banegas #3.5 103/ulNormal1.2-3.8The [facility] CenterComment on above:Performed By: #### CBC #### [facility] [address] [place] [address] Dr. Deepika Cheemahocytes/100 WBC (Bld)29.2 %Mztruw11.5-60.0The [facility] Medical CenterComment on above:Performed By: #### CBC #### [facility] [address] [place] [address] Dr. Deepika AnsariUAL DIFF REQNONormalThe [facility] CenterComment on above: Performed By: #### CBC #### [facility] [address] [address] [address] Deepika Edgar (RBC) [Entitic mass]29.4 ryItxjef19.9-34.0The [facility] Medical CenterComment on above:Performed By: #### CBC #### [facility] [address] [place] [address] Dr. Deepika Edgar (RBC) [Mass/Vol]32.5 g/tPCgnpwd81.9-35.2The [facility] CenterComment on above:Performed By: #### CBC #### [facility] [address] [address] [address] Deepika EdgarV (RBC) [Entitic vol]90.4 oFVntwfn25.0-94.0The [facility] CenterComment on above:Performed By: #### CBC #### [facility] [address] [place] [address] Dr. Deepika Schultz #0.7 103/ulNormal0.3-0.8The [facility] CenterComment on above:Performed By: #### CBC #### [facility] [address] [place] [address] Dr. Deepika Guadarramaocytes/100 WBC (Bld)6.1 %Normal1.7-12.0The [facility] Comment on above:Performed By: #### CBC #### [facility] [address] [place] [address] Dr. Deepika Issa #7.3 103/ulCritically high1.4-6.5The [facility] Comment on above:Performed By: #### CBC #### [facility] [address] [place] [address] Dr. Deepika Laddutrophils/100 WBC (Bld)61.3 %Xorxuf49.0-75.0The [facility] CenterComment on above:Performed By: #### CBC #### [facility] [address] [place] [address] Dr. Deepika Pearllet mean volume (Bld) [Entitic vol]10.8 fLNormal9.5-13.5The [facility] CenterComment on above:Performed By: #### CBC #### [facility] [address] [place] [address] Dr. Deepika TerrellPLT372 103/eiJoltyn624-106Keu [facility] CenterComment on above: Performed By: #### CBC #### [facility] [address] [place] [address] Dr. Deepika TerrellRBC3.74 106/ulCritically low4.70-6.10The [facility] CenterComment on above:Performed By: #### CBC #### [facility] [address] [address] [address] Deepika TerrellWBC11.9 103/ulCritically high4.0-11.0The [facility] Medical CenterComment on above:Performed By: #### CBC #### [facility] [address] [address] [address] Deepika TerrellPROF CHEM 8 (BAS METB)on 36-27-5438Qtzvq gap [Moles/Vol]16.1 mmol/LNormalThe [facility] CenterComment on above:Performed By: #### INSULT #### [facility] [address] [address] [address] Deepika TerrellCalcium [Mass/Vol]9.0 mg/dLNormal8.5-10.1The [facility] Comment on above:Performed By: #### INSULT #### [facility] [address] [place] [address] Dr. Deepika TerrellChloride [Moles/Vol]108 mmol/LCritically tuxu03-354Dgf [facility] CenterComment on above:Performed By: #### INSULT #### [facility] [address] [address] [address] Deepika TerrellCO2 [Moles/Vol]19.3 mmol/LCritically low21.0-32.0The [facility] CenterComment on above:Performed By: #### INSULT #### [facility] [address] [address] [address] Deepika TerrellCreatinine [Mass/Vol]2.68 mg/dLCritically high0.70-1.30The [facility] CenterComment on above:Performed By: #### INSULT #### [facility] [address] [address] [address] Poe ChangEGFR-AF IHNVUOCD00 mL/min/1.12j5Grdlqqfecw low>=60The [facility] CenterComment on above:Performed By: #### INSULT #### [facility] [address] [place] [address] Dr. Deepika JuarezGFR-NON AF XLKCSHIC51 mL/min/1.85y1Lbizoqvwra low>=60The [facility] CenterComment on above:Performed By: #### INSULT #### [facility] [address] [address] [address] Deepika TerrellGlucose [Mass/Vol]138 mg/dLCritically utyk36-387Auu [facility] CenterComment on above:Performed By: #### INSULT #### [facility] [address] [address] [address] Deepika TerrellPotassium [Moles/Vol]4.4 mmol/LNormal3.5-5.1[facility] Comment on above:Performed By: #### INSULT #### [facility] [address] [address] [address] Deepika TerrellSodium [Moles/Vol]139 mmol/DGbjvdg559-449MgaRegency Hospital Toledo Comment on above:Performed By: #### INSULT #### [facility] [address] [address] [address] Deepika TerrellUrea nitrogen [Mass/Vol]68.0 mg/dLCritically high7.0-18.0The [facility] CenterComment on above:Performed By: #### INSULT #### [facility] [address] [address] [address] Deepika TerrellUrea nitrogen/Creatinine [Mass ratio]25.4 mg/mgNormalThFairfield Medical CenterComment on above:Performed By: #### INSULT #### [facility] [address] [address] [address] Deepika Gross 19-9on 40-66-4363NS 19-99 U/mLNormal0-35The [facility] Comment on above:Result Comment: [employer] Electrochemiluminescence Immunoassay (ECLIA) . Values obtained with different assay methods or kits cannot be used interchangeably. Results cannot be interpreted as absolute evidence of the presence or absence of malignant disease.Performed By: #### BMP #### [facility] [address] [place] [address] Dr. Deepika To 21-59-2015KJC9.1 ng/mLNormal0.0-4.7ThFairfield Medical Center Comment on above:Result Comment: Nonsmokers <3.9 Smokers <5.6 . [employer] Electrochemiluminescence Immunoassay (ECLIA) . Values obtained with different assay methods or kits cannot be used interchangeably. Results cannot be interpreted as absolute evidence of the presence or absence of malignant disease.Performed By: #### INSULT #### [facility] [address] [place] [address] Dr. Deepika VargasBAABUNDIOER PYLORI AB IGMon 07-18-2022H pylori, IgM Abs<9.0 Normal0.0-8.9The [facility] Bucyrus Hospitalment on above:Result Comment: Negative <9.0 Equivocal 9.0 - 11.0 Positive >11.0 . This test was developed and its performance characteristics determined by [employer]. It has not been cleared or approved by the Food and Drug Administration.Performed By: #### CPEPT #### [facility] [address] [place] [address] Dr. Deepika TerrellAMYLASEon 18-48-6435Jgvdnte [Catalytic activity/Vol]38 U/LNormal 25-115The [facility] CenterComment on above:Performed By: #### CBC #### [facility] [address] [place] [address] Dr. Deepika Danielson W MANUAL DIFFon [id number] LYMPH #NormalThe [facility] CenterComhurley medical center on above:Performed By: #### ERUR #### [facility] [address] [place] [address] Dr. Deepika TerrellATYPICAL LYMPH %NormalThe [facility] CenterComhurley medical center on above: Performed By: #### ERUR #### [facility] [address] [place] [address] Dr. Deepika Coronel #Normal0.0-0.3The [facility] CenterComment on above: Performed By: #### ERUR #### [facility] [address] [place] [address] Dr. Deepika Coronel %Normal0-5The [facility] CenterComment on above:Performed By: #### ERUR #### [facility] [address] [place] [address] Dr. Deepika Christensen #0.00 103/ulNormal0.00-0.10The [facility] CenterComment on above:Performed By: #### ERUR #### [facility] [address] [place] [address] Dr. Deepika HectorSOM %0.0 %Critically low0.2-2.0The [facility] HospitalComment on above:Performed By: #### ERUR #### [facility] [address] [place] [address] Dr. Deepika Llamsa #NormalThe [facility] HospitalComment on above:Performed By: #### ERUR #### [facility] [address] [place] [address] Dr. Deepika Llamas %NormalThe [facility] HospitalComment on above:Performed By: #### ERUR #### [facility] [address] [place] [address] Dr. Deepika TerrellCORRECTED WBCNormal4.0-11.0The [facility] CenterComment on above: Performed By: #### ERUR #### [facility] [address] [place] [address] Dr. Deepika Guzman #0.00 103/ulNormal0.00-0.70The [facility] CenterComment on above:Performed By: #### ERUR #### [facility] [address] [place] [address] Dr. Deepika Guzman%0.0 %Critically low0.9-7.0The [facility] CenterComment on above:Performed By: #### ERUR #### [facility] [address] [place] [address] Dr. Deepika TerrellHCT35.9 %Critically low42.0-54.0The [facility] CenterComment on above:Performed By: #### ERUR #### [facility] [address] [place] [address] Dr. Deepika TerrellHGB11.6 g/dlCritically low14.0-18.0The [facility] CenterComment on above:Performed By: #### ERUR #### [facility] [address] [place] [address] Dr. Deepika Downing #3.48 103/ulNormal1.20-3.80The [facility] CenterComment on above:Performed By: #### ERUR #### [facility] [address] [place] [address] Dr. Deepika Downing%17.0 %Critically low20.5-60.0The [facility] CenterComment on above:Performed By: #### ERUR #### [facility] [address] [place] [address] Dr. Deepika EdgarH29.5 ydPwfiar82.9-34.0The [facility] CenterComment on above: Performed By: #### ERUR #### [facility] [address] [place] [address] Dr. Deepika EdgarHC32.3 g/kdHtuceq56.9-35.2The [facility] CenterComment on above:Performed By: #### ERUR #### [facility] [address] [place] [address] Dr. Deepika EdgarV91.3 rCFzkrxq27.0-94.0The [facility] CenterComment on above: Performed By: #### ERUR #### [facility] [address] [place] [address] Dr. Deepika BeyerOCYTE #NormalThe [facility] CenterComment on above: Performed By: #### ERUR #### [facility] [address] [place] [address] Dr. Deepika BeyerOCYTE %NormalThe [facility] HospitalComment on above: Performed By: #### ERUR #### [facility] [address] [place] [address] Dr. Deepika Avila#1.23 103/ulCritically high0.30-0.80The [facility] Comment on above:Performed By: #### ERUR #### [facility] [address] [place] [address] Dr. Deepika vAila%6.0 %Normal1.7-12.0The [facility] CenterComment on above: Performed By: #### ERUR #### [facility] [address] [address] [address] Deepika TerrellMPV10.8 fLNormal9.5-13.5The [facility] CenterComment on above: Performed By: #### ERUR #### [facility] [address] [address] [address] Deepika PuenteOCYTE #NormalThe [facility] HospitalComment on above:Performed By: #### ERUR #### [facility] [address] [place] [address] Dr. Deepika PuenteOCYTE %NormalThe [facility] HospitalComment on above:Performed By: #### ERUR #### [facility] [address] [place] [address] Dr. Deepika TerrellNRBCNormalThe [facility] CenterComment on above:Performed By: #### ERUR #### [facility] [address] [place] [address] Dr. Deepika TerrellPLT423 103/vrEcqfrx410-002Ssr [facility] CenterComment on above: Performed By: #### ERUR #### [facility] [address] [place] [address] Dr. Deepika TerrellRBC3.93 106/ulCritically low4.70-6.10The [facility] CenterComment on above:Performed By: #### ERUR #### [facility] [address] [place] [address] Dr. Deepika TerrellRDW14.7 %Tdnxjk37.0-15.0The [facility] CenterComment on above: Performed By: #### ERUR #### [facility] [address] [place] [address] Dr. Deepika Serrano #15.79 103/ulCritically high1.40-6.50The [facility] on above:Performed By: #### ERUR #### [facility] [address] [place] [address] Dr. Deepika Serrano %77.0 %Critically high43.0-75.0The [facility] CenterComment on above:Performed By: #### ERUR #### [facility] [address] [place] [address] Dr. Deepika TerrellWBC20.5 103/ulCritically high4.0-11.0The [facility] CenterComment on above:Performed By: #### ERUR #### [facility] [address] [place] [address] Dr. Deepika Martinez THYROXINE INDEX T7on 05-62-6678DWJ9.29Mgevkk8.30-4.50The [facility] CenterComment on above:Performed By: #### CBC #### [facility] [address] [place] [address] Dr. Deepika TerrellT3U39.0 %Ttgrlu90.0-40.0The [facility] CenterComment on above: Performed By: #### CBC #### [facility] [address] [place] [address] Dr. Deepika TerrellT4 [Mass/Vol]5.00 ug/dLNormal4.50-12.10The [facility] Comment on above:Performed By: #### CBC #### [facility] [address] [place] [address] Dr. Deepika TerrellLIPASEon 57-92-2014Djabse [Catalytic activity/Vol]126.0 U/LNormal 73.0-393.0The [facility] CenterComment on above:Performed By: #### CBC #### [facility] [address] [place] [address] Dr. Deepika Johnson PROFILEon 95-78-0315Ygncnbp [Mass/Vol]3.7 g/dLNormal3.4-5.0 The [facility] CenterComment on above:Performed By: #### CBC #### [facility] [address] [place] [address] Dr. Deepika TerrellAlbumin/Globulin [Mass ratio]1.0 {ratio}NormalThe [facility] CenterComment on above:Performed By: #### CBC #### [facility] [address] [place] [address] Dr. Deepika BernalP [Catalytic activity/Vol]82 U/ABhkcyd29-779JolRegency Hospital ToledoComment on above:Performed By: #### CBC #### [facility] [address] [place] [address] Dr. Deepika BernalT [Catalytic activity/Vol]33 U/JQyndgw82-01Xmj [facility] CenterComment on above:Performed By: #### CBC #### [facility] [address] [address] [address] Deepika TerrellAST [Catalytic activity/Vol]15 U/PUlamad63-80OqeRegency Hospital ToledoComment on above:Performed By: #### CBC #### [facility] [address] [place] [address] Dr. Deepika TorresI, CONJUGATED0.1 mg/dLNormal0.0-0.2[facility] Comment on above:Performed By: #### CBC #### [facility] [address] [place] [address] Dr. Deepika Torresirubin [Mass/Vol]0.2 mg/dLNormal0.2-1.0[facility] Comment on above:Performed By: #### CBC #### [facility] [address] [place] [address] Dr. Deepika TerrellGlobulin (S) [Mass/Vol]3.6 g/dLNormSouthview Medical CenterComhurley medical center on above:Performed By: #### CBC #### [facility] [address] [place] [address] Dr. Deepika TerrellProtein [Mass/Vol]7.3 g/dLNormal6.4-8.2[facility] Comment on above:Performed By: #### CBC #### [facility] [address] [place] [address] Dr. Deepika TerrellPERIPHERAL SMEARon 50-86-5845Briastljqwc Cyto stain Nom (Cvx/Vag) [ID]DR. ANNIKA VELEZSelect Medical Specialty Hospital - CantonComment on above:Result Comment: review of smear reveals n/n w/aniso. plts. normal. leukocytosis with neutrophili and absolute monocytosis. no atypical lymphs, immature blasts seen. these findings are suggestive of a reactive process. clinical correlation is recommend Performed By: #### PERSMR #### [facility] [address] [place] [address] Dr. Deepika TerrellPROF CHEM 8 (BAS METB)on 86-49-5279Kkkbi gap [Moles/Vol]19.0 mmol/LNormalThe [facility] CenterComment on above:Performed By: #### CBC #### [facility] [address] [place] [address] Dr. Deepika TerrellCalcium [Mass/Vol]9.5 mg/dLNormal8.5-10.1The [facility] Comment on above:Performed By: #### CBC #### [facility] [address] [place] [address] Dr. Deepika TerrellChloride [Moles/Vol]112 mmol/LCritically uahy49-662Xwm [facility] CenterComment on above:Performed By: #### CBC #### [facility] [address] [place] [address] Dr. Deepika TerrellCO2 [Moles/Vol]19.4 mmol/LCritically low21.0-32.0The [facility] CenterComment on above:Performed By: #### CBC #### [facility] [address] [place] [address] Dr. Deepika TerrellCreatinine [Mass/Vol]2.51 mg/dLCritically high0.70-1.30The [facility] CenterComment on above:Performed By: #### CBC #### [facility] [address] [place] [address] Dr. Poe ChangEGFR-AF PWLRJDDK22 mL/min/1.93r5Lgksnedisu low>=60The [facility] CenterComment on above:Performed By: #### CBC #### [facility] [address] [place] [address] Dr. Deepika JuarezGFR-NON AF TAKXUAFP98 mL/min/1.77d4Smfgspwpxo low>=60The [facility] CenterComment on above:Performed By: #### CBC #### [facility] [address] [address] [address] Deepika TerrellGlucose [Mass/Vol]159 mg/dLCritically bavv79-787Nuy [facility] CenterComment on above:Performed By: #### CBC #### [facility] [address] [address] [address] Deepika TerrellPotassium [Moles/Vol]4.4 mmol/LNormal3.5-5.1The [facility] Comment on above:Performed By: #### CBC #### [facility] [address] [address] [address] Deepika TerrellSodium [Moles/Vol]146 mmol/LCritically sxhx993-939Zss [facility] CenterComment on above:Performed By: #### CBC #### [facility] [address] [address] [address] Deepika TerrellUrea nitrogen [Mass/Vol]67.0 mg/dLCritically high7.0-18.0The [facility] CenterComment on above:Performed By: #### CBC #### [facility] [address] [address] [address] Deepika Mccall nitrogen/Creatinine [Mass ratio]26.7 mg/mgNormalThe [facility] CenterComment on above:Performed By: #### CBC #### [facility] [address] [address] [address] Deepika BrunsonHodebo 96-04-7049CHX2.884 uIU/mLNormal0.358-3.740The [facility] CenterComment on above:Performed By: #### CBC #### [facility] [address] [address] [address] Deepika TerrellINSULIN FREE AND TOTALon 83-82-0972Lgko Gwqqyhz44 uU/mLCritically highThe [facility] on above:Result Comment: Reference Range: Pubertal Children and Adults (fasting): 0 - 17Performed By: #### INSULT #### [facility] [address] [address] [address] Deepika TerrellTotal Xjciqlj29 uU/mLNormalThe [facility] on above: Result Comment: Non-Diabetic: In the absence of insulin-binding antibodies, the free and total insulin assays [...] developed and its performance characteristics determined by [employer]. It has not been cleared or approved by the Food and Drug Administration.Performed By: #### INSULT #### [facility] [address] [place] [address] Dr. Deepika Aceves-PEPTIDE, SERUMon 21-21-9751A-Peptide, Serum7.7 ng/mLCritically high1.1-4.4The [facility] on above:Result Comment: C-Peptide reference interval is for fasting patients.Performed By: #### CPEPT #### [facility] [address] [place] [address] Dr. Deepika Spangler AND PARASITE EXAMINATIONon 51-07-0476Whd + Parasite ExamFinal reportKing's Daughters Medical Center [place] on above:Result Comment: These results were obtained using wet preparation(s) and trichrome stained smear. This test does not include testing for Cryptosporidium parvum, Cyclospora, or Microsporidia.Performed By: #### BMP #### [facility] [address] [place] [address] Dr. Deepika Campbell 1CommentNoLima Memorial HospitalComhurley medical center on above:Result Comment: No ova, cysts, or parasites seen. . One negative specimen does not rule out the possibility of a parasitic infection.Performed By: #### BMP #### [address] [place] [address] Dr[address] Deepika Danielson AUTO DIFFon 27-13-8446HGTQ #0.0 103/ulNormal0.0-0.1The [facility] on above:Performed By: #### INSULT #### [facility] [address] [address] [address] Deepika TerrellBasophils/100 WBC (Bld)0.4 %Normal0.2-2.0The [facility] Comment on above:Performed By: #### INSULT #### [facility] [address] [place] [address] Dr. Deepika Freitas #0.4 103/ulNormal0.0-0.7The [facility] CenterComment on above: Performed By: #### INSULT #### [facility] [address] [place] [address] Dr. Deepika Juarezosinophils/100 WBC (Bld)3.3 %Normal0.9-7.0The [facility] Comment on above:Performed By: #### INSULT #### [facility] [address] [place] [address] Dr. Deepika Juarezrythrocyte distribution width (RBC) [Ratio]14.6 %Kpkzmq95.0-15.0 The [facility] CenterComment on above:Performed By: #### INSULT #### [facility] [address] [place] [address] Dr. Deepika TerrellHematocrit (Bld) [Volume fraction]29.8 %Critically low42.0-54.0 The [facility] CenterComment on above:Performed By: #### INSULT #### [facility] [address] [place] [address] Dr. Deepika TerrellHemoglobin (Bld) [Mass/Vol]9.8 g/dLCritically low14.0-18.0The [facility] CenterComment on above:Performed By: #### INSULT #### [facility] [address] [place] [address] Dr. Deepika Brasher #0.05 10e3/ulCritically high0.00-0.03The [facility] Comment on above:Performed By: #### INSULT #### [facility] [address] [place] [address] Dr. Deepika Brasher %0.5 %Normal0.0-0.5The [facility] CenterComment on above: Performed By: #### INSULT #### [facility] [address] [address] [address] Deepika Banegas #1.9 103/ulNormal1.2-3.8The [facility] CenterComment on above:Performed By: #### INSULT #### [facility] [address] [place] [address] Dr. Deepika Garzamphocytes/100 WBC (Bld)17.3 %Critically low20.5-60.0The [facility] CenterComment on above:Performed By: #### INSULT #### [facility] [address] [place] [address] Dr. Deepika Palma DIFF REQNONormalThe [facility] CenterComment on above: Performed By: #### INSULT #### [facility] [address] [place] [address] Dr. Deepika Edgar (RBC) [Entitic mass]29.9 cfApdttg05.9-34.0The [facility] CenterComment on above:Performed By: #### INSULT #### [facility] [address] [place] [address] Dr. Deepika Edgar (RBC) [Mass/Vol]32.9 g/sVCunukv06.9-35.2The [facility] CenterComment on above:Performed By: #### INSULT #### [facility] [address] [place] [address] Dr. Deepika Edgar (RBC) [Entitic vol]90.9 lPCkamnt90.0-94.0The [facility] CenterComment on above:Performed By: #### INSULT #### [facility] [address] [place] [address] Dr. Deepika Schultz #0.8 103/ulNormal0.3-0.8The [facility] CenterComment on above:Performed By: #### INSULT #### [facility] [address] [place] [address] Dr. Deepika Guadarramaocytes/100 WBC (Bld)7.4 %Normal1.7-12.0The [facility] Comment on above:Performed By: #### INSULT #### [facility] [address] [place] [address] Dr. Deepika Issa #7.9 103/ulCritically high1.4-6.5ThFairfield Medical Center Comment on above:Performed By: #### INSULT #### [facility] [address] [place] [address] Dr. Deepika Laddutrophils/100 WBC (Bld)71.1 %Gixfxc44.0-75.0The [facility] CenterComment on above:Performed By: #### INSULT #### [facility] [address] [place] [address] Dr. Deepika Pearllet mean volume (Bld) [Entitic vol]10.7 fLNormal9.5-13.5The [facility] CenterComment on above:Performed By: #### INSULT #### [facility] [address] [place] [address] Dr. Deepika TerrellPLT295 103/qrAxcmvj767-288Ibs [facility] CenterComment on above: Performed By: #### INSULT #### [facility] [address] [place] [address] Dr. Deepika TerrellRBC3.28 106/ulCritically low4.70-6.10The [facility] CenterComment on above:Performed By: #### INSULT #### [facility] [address] [place] [address] Dr. Deepika TerrellWBC11.1 103/ulCritically high4.0-11.0[facility] ToledoComment on above:Performed By: #### INSULT #### [facility] [address] [place] [address] Dr. Deepika TerrellCT ABD/PELV W CONon 19-70-5958HG ABD/PELV W CONCT ABD/PELV W CON: 06/01/2022 9:21 PM EST [...] Electronically authenticated by: YANIV DACOSTA Date: 2022-06-01 22:50Normal The [facility] CenterCovid-19 PCR ([facility])on 28-32-5196BONH-CoV-2 (COVID-19) RNA DANICA+probe Ql (Unsp spec)Not detectedNormalNOT DETECTEDThe [facility] Comment on above:Result Comment: When diagnostic testing is negative, the [...] for this test is supported by the Section Maintainer of Health and Human Service's declaration that circumstances exist to justify the emergency use of in vitro diagnostics for the detection and/or diagnosis of the virus that causes COVID-19. This EUA will remain in effect for the duration of the COVID-19 declaration justifying emergency of IVDs, unless it is terminated or revoked by the FDA (after which the test may no longer be used).Performed By: #### INSULT #### [facility] [address] [place] [address] Dr. Deepika Batista URINE PROFILEon 03-18-6160Kmdoqhycw Ql (U)NegativeNormal NEGATIVERegency Hospital ToledoComment on above:Performed By: #### ERUR #### [facility] [address] [place] [address] Dr. Deepika TerrellClarity (U)CLEARNormalCLEARRegency Hospital ToledoComment on above: Performed By: #### ERUR #### [facility] [address] [place] [address] Dr. Deepika Ortiz (U)LT. YELLOWNormalYELLOWRegency Hospital ToledoComment on above:Performed By: #### ERUR #### [facility] [address] [place] [address] Dr. Deepika Anderson micrscopic examination will be performed if indicated. NormalRegency Hospital ToledoComment on above:Performed By: #### ERUR #### [facility] [address] [place] [address] Dr. Deepika TerrellGlucose Ql (U)NegativeNormalNEGATIVEUniversity Hospitals Parma Medical Center on above:Performed By: #### ERUR #### [facility] [address] [place] [address] Dr. Deepika TerrellHemoglobin Ql (U)NegativeNormalNEGATIVERegency Hospital Toledo Comment on above:Performed By: #### ERUR #### [facility] Laboratory [address] [address] [address] Deepika Cole Ql (U)NegativeNormalNEGATIVERegency Hospital ToledoComment on above:Performed By: #### ERUR #### [facility] Laboratory [address] [place] [address] Dr. Deepika TerrellLEUKOCYTESNegativeNormalNEGATIVEThe Chesterville HospitalComment on above:Performed By: #### ERUR #### [facility] Laboratory [address] [place] [address] Dr. Deepika Wallacetrite Ql (U)NegativeNormalNEGATIVERegency Hospital ToledoComment on above:Performed By: #### ERUR #### [facility] Laboratory [address] [place] [address] Dr. Deepika TerrellpH (U)6.0 [pH]Normal5-9The [facility] CenterComment on above: Performed By: #### ERUR #### [facility] Laboratory [address] [place] [address] Dr. Deepika TerrellSPEC GRAVITY1.616Ihsvod9.005-<=1.025The [facility] CenterComment on above:Performed By: #### ERUR #### [facility] Laboratory [address] [place] [address] Dr. Deepika Rodriguez PROTEINNegativeNormalNEGATIVE/ TRACEThe [facility] Comment on above:Performed By: #### ERUR #### [facility] Laboratory [address] [place] [address] Dr. Deepika Coles MICRO INDNOT INDICATEDNormalThFairfield Medical CenterComment on above:Performed By: #### ERUR #### [facility] Laboratory [address] [place] [address] Dr. Deepika Gamainogen Qn (U)0.2 {Jesus'U}/dLNormal0.2 - 1.0The [facility] CenterComment on above:Performed By: #### ERUR #### [facility] Laboratory [address] [place] [address] Dr. Deepika CorreaCOHEMOGLOBIN A1Con [id number] RECOMMENDATIONSEE BELOWNormal The [facility] CenterComment on above:Result Comment: ADA RECOMMENDED LIMIT 4.0 - 6.0 ADA THERAPEUTIC TARGET < 7.0 ACTION SUGGESTED > 7.0Performed By: #### INSULT #### [facility] Laboratory [address] [address] [address] Deepika TerrellGlucose [Mass/Vol]134 mg/dLNormalThe [facility] CenterComment on above:Performed By: #### INSULT #### [facility] Laboratory [address] [address] [address] Deepika TerrellHbA1c (Bld) [Mass fraction]6.3 %Critically high4.5-6.2The [facility] CenterComment on above:Performed By: #### INSULT #### [facility] Laboratory [address] [place] [address] Dr. Deepika TerrellPOINT OF CARE GLUCOSEon 68-09-3939Nxstiwv [Mass/Vol]175 mg/dL Critically zyrp77-998IaoRegency Hospital ToledoComment on above:Performed By: #### INSULT #### [facility] Laboratory [address] [address] [address] Deepika TerrellGlucose [Mass/Vol]151 mg/dLCritically lfum46-757CurRegency Hospital ToledoComment on above:Performed By: #### INSULT #### [facility] Laboratory [address] [address] [address] Deepika TerrellGlucose [Mass/Vol]95 mg/wKDclrud12-918AoeRegency Hospital Toledo Comment on above:Performed By: #### CBC #### [facility] Laboratory [address] [address] [address] Deepika TerrellGlucose [Mass/Vol]83 mg/cDTrbdub72-961EtxRegency Hospital Toledo Comment on above:Performed By: #### INSULT #### [facility] Laboratory [address] [address] [address] Deepika TerrellGlucose [Mass/Vol]63 mg/dLCritically ofp89-675Qno [facility] CenterComment on above:Performed By: #### PERSMR #### [facility] Laboratory [address] [address] [address] Deepika TerrellGlucose [Mass/Vol]48 mg/dLCritically nmf76-350Zvk [facility] Bucyrus Hospitalment on above:Result Comment: Result Not ConfirmedPerformed By: #### BMP #### [facility] Laboratory [address] [address] [address] Deepika TerrellGlucose [Mass/Vol]62 mg/dLCritically ffm98-830Gmx [facility] CenterComment on above:Performed By: #### BMP #### [facility] Laboratory [address] [place] [address] Dr. Deepika TerrellGlucose [Mass/Vol]61 mg/dLCritically ihj95-801Rje [facility] CenterComment on above:Performed By: #### CPEPT #### [facility] Laboratory [address] [place] [address] Dr. Deepika TerrellPROF CHEM 8 (BAS METB)on 02-10-9262Rzadg gap [Moles/Vol]11.6 mmol/LNormalThe [facility] CenterComment on above:Performed By: #### BMP #### [facility] Laboratory [address] [place] [address] Dr. Deepika TerrellCalcium [Mass/Vol]8.2 mg/dLCritically low8.5-10.1The [facility] CenterComment on above:Performed By: #### BMP #### [facility] Laboratory [address] [address] [address] Deepika TerrellChloride [Moles/Vol]111 mmol/LCritically hxej04-499Ohu [facility] CenterComment on above:Performed By: #### BMP #### [facility] Laboratory [address] [address] [address] Deepika TerrellCO2 [Moles/Vol]23.5 mmol/VSqjnht89.0-32.0The [facility] Comment on above:Performed By: #### BMP #### [facility] Laboratory [address] [place] [address] Dr. Deepika TerrellCreatinine [Mass/Vol]1.32 mg/dLCritically high0.70-1.30The [facility] CenterComment on above:Performed By: #### BMP #### [facility] Laboratory [address] [address] [address] Deepika JuarezGFR-AF PRYDEINIG>60Normal>=60The [facility] CenterComment on above:Performed By: #### BMP #### [facility] Laboratory [address] [address] [address] Deepika JuarezGFR-NON AF XCHZNBKB96 mL/min/1.98x7Yevmtvlcsx low>=60The [facility] CenterComment on above:Performed By: #### BMP #### [facility] Laboratory [address] [address] [address] Deepika TerrellGlucose [Mass/Vol]91 mg/lJHfndpe25-587PyyRegency Hospital Toledo Comment on above:Performed By: #### BMP #### [facility] Laboratory [address] [address] [address] Deepika TerrellPotassium [Moles/Vol]4.1 mmol/LNormal3.5-5.1[facility] [place] Comment on above:Performed By: #### BMP #### [facility] Laboratory [address] [address] [address] Deepika TerrellSodium [Moles/Vol]142 mmol/DCmpvpo589-606Zzn [facility] Comment on above:Performed By: #### BMP #### [facility] Laboratory [address] [address] [address] Deepika TerrellUrea nitrogen [Mass/Vol]29.0 mg/dLCritically high7.0-18.0The [facility] CenterComment on above:Performed By: #### BMP #### [facility] Laboratory [address] [address] [address] Deepika TerrellUrea nitrogen/Creatinine [Mass ratio]22.0 mg/mgNormalThe [facility] CenterComment on above:Performed By: #### BMP #### [facility] Laboratory [address] [address] [address] Deepika De Anda 63-46-0141Mfnelti (P) [Moles/Vol]17 umol/TBuxhza55-53 The [facility] CenterComment on above:Performed By: #### CBC #### [facility] Laboratory [address] [place] [address] Dr. Deepika Gallegos 85-92-1452Ruuyerkrnhf peptide B (Bld) [Mass/Vol]132.0 pg/mL Normal<=1,800.0The [facility] CenterComment on above:Performed By: #### CBC #### [facility] Laboratory [address] [place] [address] Dr. Deepika Danielson AUTO DIFFon 14-46-1732IIII #0.1 103/ulNormal0.0-0.1The [facility] CenterComment on above:Performed By: #### CBC #### [facility] Laboratory [address] [place] [address] Dr. Deepika TerrellBasophils/100 WBC (Bld)0.3 %Normal0.2-2.0The [facility] Comment on above:Performed By: #### CBC #### [facility] Laboratory [address] [place] [address] Dr. Deepika Freitas #0.1 103/ulNormal0.0-0.7The [facility] CenterComment on above: Performed By: #### CBC #### [facility] Laboratory [address] [place] [address] Dr. Deepika Juarezosinophils/100 WBC (Bld)0.9 %Normal0.9-7.0The [facility] Comment on above:Performed By: #### CBC #### [facility] Laboratory [address] [place] [address] Dr. Deepika Juarezrythrocyte distribution width (RBC) [Ratio]14.7 %Iijryb00.0-15.0 The [facility] CenterComment on above:Performed By: #### CBC #### [facility] Laboratory [address] [place] [address] Dr. Deepika TerrellHematocrit (Bld) [Volume fraction]33.6 %Critically low42.0-54.0 The [facility] CenterComment on above:Performed By: #### CBC #### [facility] Laboratory [address] [address] [address] Deepika TerrellHemoglobin (Bld) [Mass/Vol]10.9 g/dLCritically low14.0-18.0The [facility] CenterComment on above:Performed By: #### CBC #### [facility] Laboratory [address] [place] [address] Dr. Deepika Brasher #0.07 10e3/ulCritically high0.00-0.03The [facility] Comment on above:Performed By: #### CBC #### [facility] Laboratory [address] [place] [address] Dr. Deepika Brasher %0.5 %Normal0.0-0.5The [facility] CenterComment on above: Performed By: #### CBC #### [facility] Laboratory [address] [place] [address] Dr. Deepika Banegas #1.5 103/ulNormal1.2-3.8The [facility] CenterComment on above:Performed By: #### CBC #### [facility] Laboratory [address] [place] [address] Dr. Deepika Cheemahocytes/100 WBC (Bld)10.3 %Critically low20.5-60.0The [facility] CenterComment on above:Performed By: #### CBC #### [facility] Laboratory [address] [place] [address] Dr. Deepika AnsariUAL DIFF REQNONormalThe [facility] CenterComment on above: Performed By: #### CBC #### [facility] Laboratory [address] [place] [address] Dr. Deepika Edgar (RBC) [Entitic mass]29.9 meLrogbd35.9-34.0The [facility] CenterComment on above:Performed By: #### CBC #### [facility] Laboratory [address] [place] [address] Dr. Deepika Edgar (RBC) [Mass/Vol]32.4 g/rBXwdjtb65.9-35.2The [facility] CenterComment on above:Performed By: #### CBC #### [facility] Laboratory [address] [address] [address] Deepika EdgarV (RBC) [Entitic vol]92.1 pPWmttic00.0-94.0The [facility] CenterComment on above:Performed By: #### CBC #### [facility] Laboratory [address] [address] [address] Deepika Schultz #1.3 103/ulCritically high0.3-0.8The [facility] Comment on above:Performed By: #### CBC #### [facility] Laboratory [address] [address] [address] Deepika Guadarramaocytes/100 WBC (Bld)8.9 %Normal1.7-12.0[facility] Comment on above:Performed By: #### CBC #### [facility] Laboratory [address] [place] [address] Dr. Deepika Issa #11.8 103/ulCritically high1.4-6.5ThFairfield Medical Center Comment on above:Performed By: #### CBC #### [facility] Laboratory [address] [place] [address] Dr. Deepika Laddutrophils/100 WBC (Bld)79.1 %Critically high43.0-75.0The [facility] CenterComment on above:Performed By: #### CBC #### [facility] Laboratory [address] [place] [address] Dr. Deepika Pearllet mean volume (Bld) [Entitic vol]11.4 fLNormal9.5-13.5The [facility] CenterComment on above:Performed By: #### CBC #### [facility] Laboratory [address] [place] [address] Dr. Deepika TerrellPLT324 103/saPnyogy569-728Cpx [facility] CenterComment on above: Performed By: #### CBC #### [facility] Laboratory [address] [place] [address] Dr. Deepika TerrellRBC3.65 106/ulCritically low4.70-6.10The [facility] CenterComment on above:Performed By: #### CBC #### [facility] Laboratory [address] [place] [address] Dr. Deepika TerrellWBC14.9 103/ulCritically high4.0-11.0The [facility] on above:Performed By: #### CBC #### [facility] Laboratory [address] [place] [address] Dr. Deepika TerrellPOINT OF CARE GLUCOSEon 31-42-1552Diwejvm [Mass/Vol]29 mg/dL Critically rby74-504Psv [facility] on above:Result Comment: Result Not ConfirmedPerformed By: #### BMP #### [facility] Laboratory [address] [place] [address] Dr. Deepika TerrellGlucose [Mass/Vol]28 mg/dLCritically qzu70-310Kuc [facility] on above:Result Comment: Will Repeat TestPerformed By: #### CPEPT #### [facility] Laboratory [address] [place] [address] Dr. Deepika TerrellPROF 14(COMP METB)on 30-26-0293Krivlmq [Mass/Vol]3.3 g/dL Critically low3.4-5.0The [facility] on above:Performed By: #### CBC #### [facility] Laboratory [address] [place] [address] Dr. Deepika TerrellAlbumin/Globulin [Mass ratio]1.0 {ratio}NormalThe [facility] on above:Performed By: #### CBC #### [facility] Laboratory [address] [place] [address] Dr. Deepika Hatfield [Catalytic activity/Vol]75 U/RTiauve93-980Gwr [facility] CenterComhurley medical center on above:Performed By: #### CBC #### [facility] Laboratory [address] [place] [address] Dr. Deepika Brandt [Catalytic activity/Vol]34 U/VKjpgmp79-57Vsp [facility] on above:Performed By: #### CBC #### [facility] Laboratory [address] [place] [address] Dr. Deepika Mejia gap [Moles/Vol]14.0 mmol/LNormalRegency Hospital [place]edo Comment on above:Performed By: #### CBC #### [facility] Laboratory [address] [address] [address] Deepika TerrellAST [Catalytic activity/Vol]19 U/EMzjxuk01-13Nsq [facility] CenterComment on above:Performed By: #### CBC #### [facility] Laboratory [address] [address] [address] Deepika TerrellBilirubin [Mass/Vol]0.2 mg/dLNormal0.2-1.0The [facility] Comment on above:Performed By: #### CBC #### [facility] Laboratory [address] [place] [address] Dr. Deepika TerrellCalcium [Mass/Vol]8.6 mg/dLNormal8.5-10.1[facility] Comment on above:Performed By: #### CBC #### [facility] Laboratory [address] [place] [address] Dr. Deepika TerrellChloride [Moles/Vol]109 mmol/LCritically duor52-497Aum [facility] CenterComment on above:Performed By: #### CBC #### [facility] Laboratory [address] [place] [address] Dr. Deepika TerrellCO2 [Moles/Vol]23.9 mmol/QNlktmh97.0-32.0[facility] Comment on above:Performed By: #### CBC #### [facility] Laboratory [address] [address] [address] Deepika TerrellCreatinine [Mass/Vol]1.59 mg/dLCritically high0.70-1.30The [facility] CenterComment on above:Performed By: #### CBC #### [facility] Laboratory [address] [place] [address] Dr. Deepika JuarezGFR-AF NUMOAZBJ97 mL/min/1.12k2Bdwookhgsy low>=60The [facility] CenterComment on above:Performed By: #### CBC #### [facility] Laboratory [address] [place] [address] Dr. Deepika JuarezGFR-NON AF YHBEKJTS38 mL/min/1.71e9Tibmodzlvl low>=60The [facility] CenterComment on above:Performed By: #### CBC #### [facility] Laboratory [address] [place] [address] Dr. Deepika TerrellGlobulin (S) [Mass/Vol]3.3 g/dLNormSouthview Medical CenterComment on above:Performed By: #### CBC #### [facility] Laboratory [address] [place] [address] Dr. Deepika TerrellGlucose [Mass/Vol]26 mg/dLCritically xbe04-122Snu [facility] CenterComment on above:Performed By: #### CBC #### [facility] Laboratory [address] [place] [address] Dr. Deepika TerrellPotassium [Moles/Vol]3.9 mmol/LNormal3.5-5.1The [facility] Comment on above:Performed By: #### CBC #### [facility] Laboratory [address] [place] [address] Dr. Deepika TerrellProtein [Mass/Vol]6.6 g/dLNormal6.4-8.2The [facility] Comment on above:Performed By: #### CBC #### [facility] Laboratory [address] [place] [address] Dr. Deepika TerrellSodium [Moles/Vol]143 mmol/TPqudyz317-354KdrRegency Hospital Toledo Comment on above:Performed By: #### CBC #### [facility] Laboratory [address] [place] [address] Dr. Deepika TerrellUrea nitrogen [Mass/Vol]34.0 mg/dLCritically high7.0-18.0The [facility] CenterComment on above:Performed By: #### CBC #### [facility] Laboratory [address] [place] [address] Dr. Deepika Mccall nitrogen/Creatinine [Mass ratio]21.4 mg/mgNoLima Memorial HospitalComment on above:Performed By: #### CBC #### [facility] Laboratory [address] [place] [address] Dr. Deepika Finch, HIGH SENSITIVITYon 20-68-6183RGNEQU96.2 pg/mLNormal 4.0-76.1The [facility] CenterComment on above:Result Comment: CUT-OFF POINTS HAVE BEEN ESTABLISHED BASED ON THE FOURTH UNIVERSAL DEFINITIONS OF MYOCARDIAL INFARCTION. THE UPPER REFERENCE LIMIT (URL) OF TROPONIN, DEFINED THE 99TH PERCENTILE OF cTnI DISTRIBUTION IN A REFERENCE POPULATION, HAS BEEN CONFIRMED THE DECISION THRESHOLD FOR AK DIAGNOSIS.Performed By: #### BMP #### [facility] Laboratory [address] [place] [address] Dr. Deepika Watters PANEL (PCR)on 93-19-7720Kdbuajovsj F 40/41Not detectedNormal NOT DETECTEDThe [facility] CenterComment on above:Performed By: #### PERSMR #### [facility] Laboratory [address] [place] [address] Dr. Deepika TerrellAstrovirusNot detectedNormalNOT DETECTEDThe [facility] Comment on above:Performed By: #### PERSMR #### [facility] Laboratory [address] [place] [address] Dr. Deepika Aceves. Diff toxin A/BNot detectedNormalNOT DETECTEDThe [facility] CenterComment on above:Performed By: #### PERSMR #### [facility] Laboratory [address] [place] [address] Dr. Deepika CalderonpylobacterNot detectedNormalNOT DETECTEDThe [facility] Comment on above:Performed By: #### PERSMR #### [facility] Laboratory [address] [place] [address] Dr. Deepika JohnsonyptosporidiumNot detectedNormalNOT DETECTEDThe [facility] CenterComment on above:Performed By: #### PERSMR #### [facility] Laboratory [address] [place] [address] Dr. Deepika Pollockos. CayetanensisNot detectedNormalNOT DETECTEDThe [facility] CenterComment on above:Performed By: #### PERSMR #### [facility] Laboratory [address] [place] [address] Dr. Deepika Louis Coli J729Ekp ApplicableNormalNot ApplicableThe [facility] CenterComment on above:Performed By: #### PERSMR #### [facility] Laboratory [address] [address] [address] Deepika Louis histolyticaNot detectedNormalNOT DETECTEDThe [facility] Comment on above:Performed By: #### PERSMR #### [facility] Laboratory [address] [address] [address] Deepika JuarezAEAma detectedNormalNOT DETECTEDThe [facility] CenterComment on above:Performed By: #### PERSMR #### [facility] Laboratory [address] [address] [address] Deepika JuarezIECNtodd detectedNormalNOT DETECTEDThe [facility] CenterComment on above:Performed By: #### PERSMR #### [facility] Laboratory [address] [address] [address] Deepika JuarezPECNot detectedNormalNOT DETECTEDThe [facility] CenterComment on above:Performed By: #### PERSMR #### [facility] Laboratory [address] [address] [address] Deepika JuarezTECNtodd detectedNormalNOT DETECTEDThe [facility] CenterComment on above:Performed By: #### PERSMR #### [facility] Laboratory [address] [address] [address] Deepika Li LambliaNot detectedNormalNOT DETECTEDThe [facility] Comment on above:Performed By: #### PERSMR #### [facility] Laboratory [address] [address] [address] Deepika Chowdhury CONTROLSPASSEDSumma Health Akron CampusComment on above:Performed By: #### PERSMR #### [facility] Laboratory [address] [address] [address] Deepika Ritchie SHELBY HEADERGI PANEL BACTERIASumma Health Akron Campus Comment on above:Performed By: #### PERSMR #### [facility] Laboratory [address] [address] [address] Deepika RitchieHD ECOLIGI PANEL DIARRHEAGENIC E.COLI / SHIGELLASumma Health Akron CampusComment on above:Performed By: #### PERSMR #### [facility] Laboratory [address] [address] [address] Deepika Villafana INFOSECorey HospitalComment on above: Result Comment: EAEC- Enteroaggregative E. Coli EPEC- Enteropathogenic E. Coli ETEC- Enterotoxigenic E. Coli lt/st STEC- Shigella-like toxin-producing E. Coli stx1/stx2 EIEC- Shigella/Enteroinvasive E. ColiPerformed By: #### PERSMR #### [facility] Laboratory [address] [address] [address] Deepika Villafana PARASITESGI [facility] Comment on above:Performed By: #### PERSMR #### [facility] Laboratory [address] [address] [address] Deepika Villafana VIRUSGI [facility] MD, Cancer CenterComment on above:Performed By: #### PERSMR #### [facility] Laboratory [address] [address] [address] Deepika Novoarovirus GI/GIINot detectedNormalNOT DETECTEDThe [facility] Medical CenterComment on above:Performed By: #### PERSMR #### [facility] [address] [address] [address] Deepika Dial. ShigelloidesNot detectedNormalNOT DETECTEDThe [facility] CenterComment on above:Performed By: #### PERSMR #### [facility] [address] [address] [address] Deepika TerrellRotavirus ANot detectedNormalNOT DETECTEDReg[facility] Hospital [facility] Comment on above:Performed By: #### PERSMR #### [facility] [address] [address] [address] Deepika TerrellSalmonellaNot detectedNormalNOT DETECTEDThe [facility] Comment on above:Performed By: #### PERSMR #### [facility] [address] [address] [address] Deepika TerrellSapovirusNot detectedNormalNOT DETECTEDThe [facility] Comment on above:Performed By: #### PERSMR #### [facility] [address] [address] [address] Deepika TerrellSTECMeeta detectedNormalNOT DETECTEDThe [facility] CenterComment on above:Performed By: #### PERSMR #### [facility] [address] [place] [address] Dr. Deepika GonsalesioNot detectedNormalNOT DETECTEDThe [facility] CenterComment on above:Performed By: #### PERSMR #### [facility] [address] [place] [address] Dr. Deepika Gonsalesio CholeraNot detectedNormalNOT DETECTEDThe [facility] Comment on above:Performed By: #### PERSMR #### [facility] [address] [place] [address] Dr. Deepika Lombardo. EnterocoliticaNot detectedNormalNOT DETECTEDThe [facility] CenterComment on above:Performed By: #### PERSMR #### [facility] [address] [place] [address] Dr. Deepika TerrellPROF CHEM 8 (BAS METB)on [id number] gap [Moles/Vol]13.9 mmol/LNormalRegency Hospital ToledoComment on above:Performed By: #### PERSMR #### [facility] [address] [place] [address] Dr. Deepika TerrellCalcium [Mass/Vol]8.9 mg/dLNormal8.5-10.1The [facility] Comment on above:Performed By: #### PERSMR #### [facility] [address] [place] [address] Dr. Deepika TerrellChloride [Moles/Vol]104 mmol/XPsgwmy56-295Aso [facility] Comment on above:Performed By: #### PERSMR #### [facility] [address] [place] [address] Dr. Deepika TerrellCO2 [Moles/Vol]26.3 mmol/KDbcsly83.0-32.0The [facility] Comment on above:Performed By: #### PERSMR #### [facility] [address] [place] [address] Dr. Deepika TerrellCreatinine [Mass/Vol]1.70 mg/dLCritically high0.70-1.30The [facility] CenterComment on above:Performed By: #### PERSMR #### [facility] [address] [address] [address] Deepika JuarezGFR-AF BRMHHTMQ75 mL/min/1.37f7Uegqjumgtn low>=60The [facility] CenterComment on above:Performed By: #### PERSMR #### [facility] [address] [address] [address] Deepika JuarezGFR-NON AF ORNFLGKO03 mL/min/1.92d3Njvylqziww low>=60The [facility] CenterComment on above:Performed By: #### PERSMR #### [facility] [address] [place] [address] Dr. Deepika TerrellGlucose [Mass/Vol]62 mg/dLCritically bfv12-552Ugp [facility] CenterComment on above:Performed By: #### PERSMR #### [facility] [address] [place] [address] Dr. Deepika TerrellPotassium [Moles/Vol]4.2 mmol/LNormal3.5-5.1The [facility] Comment on above:Performed By: #### PERSMR #### [facility] [address] [place] [address] Dr. Deepika TerrellSodium [Moles/Vol]140 mmol/VDvywpd808-604Nwg [facility] Comment on above:Performed By: #### PERSMR #### [facility] [address] [place] [address] Dr. Deepika TerrellUrea nitrogen [Mass/Vol]34.0 mg/dLCritically high7.0-18.0The [facility] CenterComment on above:Performed By: #### PERSMR #### [facility] [address] [place] [address] Dr. Deepika Mccall nitrogen/Creatinine [Mass ratio]20.0 mg/mgNormalThe [facility] CenterComment on above:Performed By: #### PERSMR #### [facility] [address] [place] [address] Dr. Deepika Haji/2D COMPLETEon 60-09-5525URIVJPCZPD M/2D COMPLETE Patient: MASON NATARAJAN Exam Date: 04/01/2022 : 1935 Gender:M Ordering : ARNEL KELLOGG Admission #: [id number] Family : Order #: [id number] CLICK HERE TO VIEW EXAM ECHOCARDIOGRAM REPORT [...] by: Keanu Bain M.D. on 04/09/2022 at 08:52[facility] CampusCB AUTO DIFFon [id number] #0.1 103/ulNormal0.0-0.1The [facility] CenterComment on above:Performed By: #### CBC #### [facility] [address] [place] [address] Dr. Deepika Carcamophils/100 WBC (Bld)0.5 %Normal0.2-2.0[facility] Comment on above:Performed By: #### CBC #### [facility] [address] [place] [address] Dr. Deepika Freitas #0.3 103/ulNormal0.0-0.7The [facility] CenterComment on above: Performed By: #### CBC #### [facility] [address] [place] [address] Dr. Deepika Juarezosinophils/100 WBC (Bld)3.3 %Normal0.9-7.0[facility] Comment on above:Performed By: #### CBC #### [facility] [address] [place] [address] Dr. Deepika Cainthrocyte distribution width (RBC) [Ratio]14.0 %Rfdgxh59.0-15.0 [facility] ToledoComment on above:Performed By: #### CBC #### [facility] [address] [place] [address] Dr. Deepika TerrellHematocrit (Bld) [Volume fraction]41.2 %Critically low42.0-54.0 [facility]edoComment on above:Performed By: #### CBC #### [facility] [address] [place] [address] Dr. Deepika TerrellHemoglobin (Bld) [Mass/Vol]13.4 g/dLCritically low14.0-18.0The [facility] CenterComment on above:Performed By: #### CBC #### [facility] [address] [place] [address] Dr. Deepika Brasher #0.04 10e3/ulCritically high0.00-0.03The [facility] Comment on above:Performed By: #### CBC #### [facility] [address] [place] [address] Dr. Deepika Brasher %0.4 %Normal0.0-0.5ThFairfield Medical CenterComment on above: Performed By: #### CBC #### [facility] [address] [place] [address] Dr. Deepika Banegas #3.4 103/ulNormal1.2-3.8The [facility] CenterComment on above:Performed By: #### CBC #### [facility] [address] [place] [address] Dr. Deepika Cheemahocytes/100 WBC (Bld)36.2 %Bzchez64.5-60.0[facility] ToledoComment on above:Performed By: #### CBC #### [facility] [address] [place] [address] Dr. Deepika Palma DIFF REQNONormalThe [facility] CenterComment on above: Performed By: #### CBC #### [facility] [address] [place] [address] Dr. Deepika Venegas (RBC) [Entitic mass]30.9 pfWxoqbk92.9-34.0[facility] ToledoComment on above:Performed By: #### CBC #### [facility] [address] [place] [address] Dr. Deepika Edgar (RBC) [Mass/Vol]32.5 g/gYWejjmy81.9-35.2The [facility] CenterComment on above:Performed By: #### CBC #### [facility] [address] [place] [address] Dr. Deepika Ortega (RBC) [Entitic vol]94.9 fLCritically high80.0-94.0[facility] ToledoComment on above:Performed By: #### CBC #### [facility] [address] [place] [address] Dr. Deepika Schultz #0.9 103/ulCritically high0.3-0.8ThFairfield Medical Center Comment on above:Performed By: #### CBC #### [facility] [address] [place] [address] Dr. Deepika Guadarramaocytes/100 WBC (Bld)9.9 %Normal1.7-12.0[facility] Comment on above:Performed By: #### CBC #### [facility] [address] [place] [address] Dr. Deepika Issa #4.7 103/ulNormal1.4-6.5The [facility] CenterComment on above:Performed By: #### CBC #### [facility] [address] [place] [address] Dr. Deepika Maganaophils/100 WBC (Bld)49.7 %Agtjdp86.0-75.0The [facility] CenterComment on above:Performed By: #### CBC #### [facility] [address] [place] [address] Dr. Deepika TerrellPlatelet mean volume (Bld) [Entitic vol]10.1 fLNormal9.5-13.5The [facility] CenterComment on above:Performed By: #### CBC #### [facility] [address] [place] [address] Dr. Deepika TerrellPLT290 103/adPkozgk129-177Tfp [facility] CenterComment on above: Performed By: #### CBC #### [facility] [address] [place] [address] Dr. Deepika TerrellRBC4.34 106/ulCritically low4.70-6.10The [facility] CenterComment on above:Performed By: #### CBC #### [facility] [address] [place] [address] Dr. Deepika TerrellWBC9.4 103/ulNormal4.0-11.0The [facility] CenterComhurley medical center on above: Performed By: #### CBC #### [facility] [address] [place] [address] Dr. Deepika TerrellFREE T3on 31-70-2456PWYF T31.83 pg/mlLCritically low2.18-3.98The [facility] CenterComhurley medical center on above:Performed By: #### CPEPT #### [facility] [address] [place] [address] Dr. Deepika TerrellGLYCOHEMOGLOBIN A1Con 19-29-6533QYT RECOMMENDATIONSEE BELOWNormal [facility] ToledoComment on above:Result Comment: ADA RECOMMENDED LIMIT 4.0 - 6.0 ADA THERAPEUTIC TARGET < 7.0 ACTION SUGGESTED > 7.0Performed By: #### A1C #### [facility] [address] [address] [address] Deepika TerrellGlucose [Mass/Vol]114 mg/dLSumma Health Akron CampusComment on above:Performed By: #### A1C #### [facility] [address] [address] [address] Deepika TerrellHbA1c (Bld) [Mass fraction]5.6 %Normal4.5-6.2The [facility] CenterComment on above:Performed By: #### A1C #### [facility] [address] [address] [address] Deepika TerrellLIPID PROFILEon 64-65-5777SENH-HDL RATIO NORMSGood Samaritan HospitalComment on above:Result Comment: 3.3 - 4.4 LOW RISK 4.4 - 7.1 AVERAGE RISK 7.1 - 11.0 MODERATE RISK >11.0 HIGH RISKPerformed By: #### CPEPT #### [facility] [address] [address] [address] Deepika TerrellCholesterol [Mass/Vol]187 mg/dLNormal<=200The [facility] Comment on above:Performed By: #### CPEPT #### [facility] [address] [address] [address] Deepika TerrellCholesterol in HDL [Mass/Vol]49 mg/mSTiwtlx91-34Hdk [facility] CenterComment on above:Performed By: #### CPEPT #### [facility] [address] [address] [address] Deepika TerrellCholesterol in LDL [Mass/Vol]123.8 mg/dLSumma Health Akron CampusComment on above:Performed By: #### CPEPT #### [facility] [address] [address] [address] Deepika Venegasestermisael.total/Cholesterol in HDL [Mass ratio]3.8 {ratio} NormalThe [facility] CenterComment on above:Performed By: #### CPEPT #### [facility] [address] [place] [address] Dr. Deepika Nguyen NORMAL> or = 60 mg/dl - LOW CARDIOVASCULAR RISK <40 mg/dl - HIGH CARDIOVASCULAR RISKSumma Health Akron CampusComment on above:Performed By: #### CPEPT #### [facility] [address] [place] [address] Dr. Deepika Foote CALC NORMALSEE BELOWSumma Health Akron CampusComment on above:Result Comment: <100 mg/dl OPTIMAL 100 - 129 mg/dl NEAR OR ABOVE OPTIMAL 130 - 159 mg/dl BORDERLINE HIGH 160 - 189 mg/dl HIGH >190 mg/dl VERY HIGH Performed By: #### CPEPT #### [facility] [address] [place] [address] Dr. Deepika TerrellTriglyceride [Mass/Vol]71 mg/dLNormal<=150The [facility] Comment on above:Performed By: #### CPEPT #### [facility] [address] [place] [address] Dr. Deepika AtkinsonLDL CALC14.2 mg/dLNoLima Memorial HospitalComment on above: Performed By: #### CPEPT #### [facility] [address] [place] [address] Dr. Deepika TerrellPROIris 14(COMP METB)on 11-95-6982Vpstjwh [Mass/Vol]4.0 g/dLNormal 3.4-5.0[facility]edoComment on above:Performed By: #### CPEPT #### [facility] [address] [place] [address] Dr. Deepika TerrellAlbumin/Globulin [Mass ratio]1.2 {ratio}NormalThe [facility] CenterComment on above:Performed By: #### CPEPT #### [facility] [address] [place] [address] Dr. Deepika Hatfield [Catalytic activity/Vol]61 U/BYiymjr19-000Lri [facility] CenterComment on above:Performed By: #### CPEPT #### [facility] [address] [place] [address] Dr. Yilan ChangALT [Catalytic activity/Vol]38 U/MYummtp97-72Dek [facility] CenterComment on above:Performed By: #### CPEPT #### [facility] [address] [place] [address] Dr. Deepika Álvarezon gap [Moles/Vol]8.1 mmol/LNormalThe [facility] CenterComment on above:Performed By: #### CPEPT #### [facility] [address] [place] [address] Dr. Deepika TerrellAST [Catalytic activity/Vol]19 U/XMotkoc01-56Kas [facility] CenterComment on above:Performed By: #### CPEPT #### [facility] [address] [place] [address] Dr. Deepika TerrellBilirubin [Mass/Vol]0.4 mg/dLNormal0.2-1.0The [facility] Comment on above:Performed By: #### CPEPT #### [facility] [address] [place] [address] Dr. Deepika TerrellCalcium [Mass/Vol]9.4 mg/dLNormal8.5-10.1The [facility] Comment on above:Performed By: #### CPEPT #### [facility] [address] [place] [address] Dr. Deepika TerrellChloride [Moles/Vol]104 mmol/VOcivyz87-909Bnf [facility] Comment on above:Performed By: #### CPEPT #### [facility] [address] [place] [address] Dr. Deepika TerrellCO2 [Moles/Vol]32.6 mmol/LCritically high21.0-32.0The [facility] CenterComment on above:Performed By: #### CPEPT #### [facility] [address] [place] [address] Dr. Deepika TerrellCreatinine [Mass/Vol]1.63 mg/dLCritically high0.70-1.30The [facility] CenterComment on above:Performed By: #### CPEPT #### [facility] [address] [place] [address] Dr. Deepika JuarezGFR-AF NUHPAKSO80 mL/min/1.95a4Ggkhjmimra low>=60The [facility] CenterComment on above:Performed By: #### CPEPT #### [facility] [address] [address] [address] Deepika JuarezGFR-NON AF WXSBRLVX38 mL/min/1.43c2Ixrpilnwma low>=60The [facility] CenterComment on above:Performed By: #### CPEPT #### [facility] [address] [address] [address] Deepika TerrellGlobulin (S) [Mass/Vol]3.3 g/dLNormalThe [facility] CenterComment on above:Performed By: #### CPEPT #### [facility] [address] [place] [address] Dr. Deepika TerrellGlucose [Mass/Vol]127 mg/dLCritically cbpg29-916Lqb [facility] CenterComment on above:Performed By: #### CPEPT #### [facility] [address] [address] [address] Deepika TerrellPotassium [Moles/Vol]4.7 mmol/LNormal3.5-5.1[facility] Comment on above:Performed By: #### CPEPT #### [facility] [address] [place] [address] Dr. Deepika TerrellProtein [Mass/Vol]7.3 g/dLNormal6.4-8.2[facility] Comment on above:Performed By: #### CPEPT #### [facility] [address] [address] [address] Deepika TerrellSodium [Moles/Vol]140 mmol/KJpsmkt923-610Xdf [facility] Comment on above:Performed By: #### CPEPT #### [facility] [address] [address] [address] Deepika TerrellUrea nitrogen [Mass/Vol]37.0 mg/dLCritically high7.0-18.0The [facility] CenterComment on above:Performed By: #### CPEPT #### [facility] [address] [place] [address] Dr. Deepika TerrellUrea nitrogen/Creatinine [Mass ratio]22.7 mg/mgNormSouthview Medical CenterComment on above:Performed By: #### CPEPT #### [facility] [address] [address] [address] Deepika TerrellT4on 93-24-3947F6 [Mass/Vol]8.40 ug/dLNormal4.50-12.10The [facility] CenterComment on above:Performed By: #### CPEPT #### [facility] [address] [place] [address] Dr. Deepika TerrellTSHon 25-96-4006KPZ0.762 uIU/mLNormal0.358-3.740The [facility] CenterComment on above:Performed By: #### CPEPT #### [facility] [address] [place] [address] Dr. Deepika TerrellUS CAMILLA DOP LEG RTon 41-89-8124SS CAMILL[place] DOP LEG RTEXAMINATION: US CAMILL[place] DOP LEG RT HISTORY: Localized [...] right lower extremity. Electronically authenticated by: GEOVANY JENKINS Date: 2021-12-26 13:02NoLima Memorial HospitalPROF CHEM 8 (BAS METB)on 84-57-2902Jszep gap [Moles/Vol]15.1 mmol/LNormalThe [facility] CenterComment on above:Performed By: #### BMP #### [facility] [address] [place] [address] Dr. Deepika TerrellCalcium [Mass/Vol]9.2 mg/dLNormal8.5-10.1The [facility] Comment on above:Performed By: #### BMP #### [facility] [address] [place] [address] Dr. Deepika TerrellChloride [Moles/Vol]102 mmol/THxadne87-206VjkRegency Hospital [facility] Comment on above:Performed By: #### BMP #### [facility] [address] [place] [address] Dr. Deepika TerrellCO2 [Moles/Vol]25.8 mmol/FYckosc45.0-32.0The [facility] Comment on above:Performed By: #### BMP #### [facility] [address] [place] [address] Dr. Deepika TerrellCreatinine [Mass/Vol]1.70 mg/dLCritically high0.70-1.30The [facility] CenterComment on above:Performed By: #### BMP #### [facility] [address] [place] [address] Dr. Deepika JuarezGFR-AF NVKKMRAC60 mL/min/1.34a2Sppdqmtbgc low>=60The [facility] CenterComment on above:Performed By: #### BMP #### [facility] [address] [place] [address] Dr. Deepika JuarezGFR-NON AF SUYEARUY59 mL/min/1.32h7Yektyjnoed low>=60The [facility] CenterComment on above:Performed By: #### BMP #### [facility] [address] [place] [address] Dr. Deepika TerrellGlucose [Mass/Vol]75 mg/oFZijlia72-814ZghRegency Hospital [facility]edo Comment on above:Performed By: #### BMP #### [facility] [address] [place] [address] Dr. Deepika TerrellPotassium [Moles/Vol]4.9 mmol/LNormal3.5-5.1The [facility] Comment on above:Performed By: #### BMP #### [facility] [address] [place] [address] Dr. Deepika TerrellSodium [Moles/Vol]138 mmol/ZBsylag332-722HruRegency Hospital Toledo Comment on above:Performed By: #### BMP #### [facility] [address] [place] [address] Dr. Yilan ChangUrea nitrogen [Mass/Vol]45.0 mg/dLCritically high7.0-18.0The [facility] CenterComment on above:Performed By: #### BMP #### [facility] [address] [place] [address] Dr. Deepika TerrellUrea nitrogen/Creatinine [Mass ratio]26.5 mg/mgNormalThe [facility] CenterComment on above:Performed By: #### BMP #### [facility] [address] [place] [address] Dr. Deepika TerrellPROF CHEM 8 (BAS METB)on 24-66-9697Nqlfr gap [Moles/Vol]14.2 mmol/LNormalThe [facility] CenterComment on above:Performed By: #### BMP #### [facility] [address] [place] [address] Dr. Deepika TerrellCalcium [Mass/Vol]9.4 mg/dLNormal8.5-10.1The [facility] Comment on above:Performed By: #### BMP #### [facility] [address] [place] [address] Dr. Deepika TerrellChloride [Moles/Vol]106 mmol/NIwvhla47-554Jym [facility] Comment on above:Performed By: #### BMP #### [facility] [address] [place] [address] Dr. Deepika TerrellCO2 [Moles/Vol]25.1 mmol/DVxdpxo69.0-32.0The [facility] Comment on above:Performed By: #### BMP #### [facility] [address] [place] [address] Dr. Deepika TerrellCreatinine [Mass/Vol]1.72 mg/dLCritically high0.70-1.30The [facility] CenterComment on above:Performed By: #### BMP #### [facility] [address] [place] [address] Dr. Poe ChangEGFR-AF ROJHOPXO57 mL/min/1.06m1Zkhjaudfqa low>=60The [facility] [place] [facility] CenterComment on above:Performed By: #### BMP #### [facility] [address] [address] [address] Poe ChangEGFR-NON AF TNTYGJNF67 mL/min/1.11a1Axamxdjynh low>=60The [facility] [place] [facility] CenterComment on above:Performed By: #### BMP #### [facility] [address] [address] [address] Deepika TerrellGlucose [Mass/Vol]51 mg/dLCritically jom42-529Udu [facility] [place] [facility] CenterComment on above:Performed By: #### BMP #### [facility] [place] [facility] [address] [address] [address] Deepika TerrellPotassium [Moles/Vol]6.2 mmol/LCritically high3.5-5.1The [facility] [place] [facility] CenterComment on above:Performed By: #### BMP #### [facility] [address] [address] [address] Deepika TerrellSodium [Moles/Vol]138 mmol/EHrzgxy581-181Ybk [facility] [place] [facility] Comment on above:Performed By: #### BMP #### [facility] [address] [address] [address] Deepika TerrellUrea nitrogen [Mass/Vol]42.0 mg/dLCritically high7.0-18.0The [facility] [place] [facility] CenterComment on above:Performed By: #### BMP #### [facility] [place] [facility] [address] [address] [address] Deepika TerrellUrea nitrogen/Creatinine [Mass ratio]24.4 mg/mgNormalThe [facility] [place] [facility] CenterComment on above:Performed By: #### BMP #### [facility] [place] [facility] [address] [address] [address] Deepika AliciaI LSPINE WO CONon 87-28-6514DYH LSPINE WO CONEXAMINATION: MRI LSPINE WO CON HISTORY: Low back pain COMPARISON: [...] Electronically authenticated by: KURT DON Date: 2021-09-14 14:24[facility] CampusXR LSPINE MIN 4 VIEWSon 69-05-2328ZA LSPINE MIN 4 VIEWS EXAMINATION: XR LSPINE [...] Electronically authenticated by: KURT DON Date: 2021-09-10 20:46NoLima Memorial HospitalGLYCOHEMOGLOBIN A1Con 17-83-0579OUW RECOMMENDATIONSEE BELOW NormalThe [facility] [place] [facility] CenterComment on above:Result Comment: ADA RECOMMENDED LIMIT 4.0 - 6.0 ADA THERAPEUTIC TARGET < 7.0 ACTION SUGGESTED > 7.0Performed By: #### CPEPT #### [facility] [place] [facility] [address] [address] [address] Deepika TerrellGlucose [Mass/Vol]131 mg/dLNoLima Memorial HospitalComment on above:Performed By: #### CPEPT #### [facility] [address] [address] [address] Deepika TerrellHbA1c (Bld) [Mass fraction]6.2 %Normal4.5-6.2The [facility] [place] [facility] CenterComment on above:Performed By: #### CPEPT #### [facility] [place] [facility] [address] [address] [address] Deepika Arias Urea Nitrogenon 01-89-1622Cdoi nitrogen [Mass/Vol]23 mg/dL Normal9-[facility] Anne HospitalComment on above:Performed By: #### BUN, CREAT #### [facility] [address] [place] [address] USACT abdomen pelvis w conon 19-52-5637NV abdomen pelvis w [facility] Main [place] [address] [place] [address] CT Scan Report Signed Patient: Mason Natarajan MR#: [id number] [birth year] : 1935 Acct:[id number] Age/Sex: 85 / M ADM Date: 10/26/20 Loc: Room: Type: [facility] Attending Dr: Srinivasan Beaulieu MD Ordering Provider: [...] Eugene Cummings M.D.10/26/2020 4:54 PM Dictation Location: [place] [address] Transcribed By: [facility] 10/26/20 9844 Dictated By: Eugene Cummings II, MD 10/26/20 1648 Signed By: 10/26/20 1654Dunlap Memorial HospitalCreatinineon 10-26-2020 Creatinine [Mass/Vol]1.44 mg/dLHigh0.64-1.27[facility] Comment on above:Performed By: #### BUN, CREAT #### [place] [address] USACreatinine Clr Calc Mreewlzc17.48Dunlap Memorial HospitalComment on above:Result Comment: PERFORMED BY: [place] [address] PATHOLOGIST INSPECTION AND TESTING SUPERVISOR ANTHONY WEAVER M.D.Performed By: #### BUN, CREAT #### [facility] [address] [id number] USAEstimated GFR ( Dfkqnyd60HxrrsgDtmhvhvmy[address] [place], [place] [address]Comment on above:Result Comment: GFR estimated reference range: According to KDOQI guidelines, <60 ml/min/1.73m2 is sufficient to diagnose a patient with chronic kidney disease.Performed By: #### BUN, CREAT #### [facility] [address] [id number] USAEstimated GFR (Non- Zc59PmtcvfXgjjvjmqq[address] [place], [place] [address]Comment on above:Performed By: #### BUN, CREAT #### [place] [id number] USAGlucose Poct Glucometerson 42-66-2451Tyufike [Mass/Vol]100 mg/dLDunlap Memorial HospitalComment on above:Result Comment: Random Glucose Reference Range is dependent on time and content of last meal. Glucose of more than 200 mg/dL in a nonstressed, ambulatory subject supports the diagnosis of Diabetes Mellitus. PERFORMED BY: [address] [place] [id number] PATHOLOGIST INSPECTION AND TESTING SUPERVISOR ANTHONY WEAVER M.D.Performed By: #### GLULS #### Point of Care testing ,[facility] 10-26-2020 Specimen: [id number] Received: 10/26/20 Status: SOLEDAD Rosemary Num: [id number] Spec Type: Surgical Subm Dr: Srinivasan Beaulieu MD Tissues: A Colon Biopsy (LEFT COLON BX) Procedures: HE Stain/2, Gross/Micro L4 Patient Age/Sex Location Account Attending Physician Mason Natarajan 85/M [id number] Srinivasan Beaulieu MD SPEC NUM: [id number] RECD: 10/26/20-1209 STATUS: SOLEDAD STRATTON NUM: [id number] AALIYAH: 10/26/20- SUBM DR: Srinivasan Beaulieu MD ENTERED: 10/26/20-[address] [facility] [address]: MICHELLE TYPE: Surgical DEPT: S ENTERED BY: [id number] RECV BY: [id number] ORDERED: HE Stain/2, Gross/Micro L4 ORDERED: HE [...] microscopic findings support the above pathologic diagnosis. [id number] Specimen: [id number] Received: 10/26/20 Status: SOLEDAD Millerlemuel Num: [id number] Spec Type: Surgical Subm Dr: Srinivasan Beaulieu MD Tissues: A Colon Biopsy (LEFT COLON BX) Procedures: HE Stain/2, Gross/Micro L4 Patient: Mason Natarajan [id number] (Continued) Signed (signature on file) Anthony Weaver MD 10/27/20 8971 [facility] Hospitaltory and Physicalon 62-32-4066JSN IP Note OR TranscriptionNormalNorwalk Memorial Hospitalurgical Pathologyon 26-77-7947Zedogxgz Pathology(NOTE)[id number] LABORATORIESCONSULTING PATHOLOGISTS CORPORATIONANATOMIC FSKMEOLAY[address] [place], [place] [address] Fax: SURGICAL PATHOLOGY CONSULTATIONPatien t Name: mAy NATARAJAN Rec: [id number] Number: [id number]: 01/15/2017Received: 01/15/2017Reported: 01/16/2017 08:36-- Diagnosis --INTRAOCULAR LENS: GROSS ONLY.Kan Allred M.D.Electronically Signed Out tb04/16/11Clinical InformationPre-op Diagnosis: DISLOCATED IOL LEFT EYE Ope rative Findings: IOL GROSS ONLYOperation Performed: VITRECTOMY 25 GAUGE LENSECTOMY, KENALOGINJECTIONSource of Specimen1: IOL - GROSS ONLYGross Description MASON NATARAJAN IOL GROSS ONLY 0.6 cm long x < 0.1 cm in diameterclear translucent lens with two tags. Gross only.NormalTrihealth Vital Signs Date TimeVital SignValuePerforming QicxvsnpwMkvttnpm55-59-1922 13:47-0400Body zazilu026.72 cmErin Zhang MD Work Phone: [facility]10-14-2025 13:47-0400 Body mass index (BMI) [Ratio]24.9 kg/d9VzhpwxfErin Zhang MD Work Phone: [facility]10-14-2025 13:47-0400 Body vyrrma37.38 kgErin Zhang MD Work Phone: [facility]10-14-2025 13:47-0400 Diastolic blood jhlxjoam17 mm[Hg]Erin Zhang MD Work Phone: 1(688)142-[address] [place], [place] [address]310-14-2025 13:47-0400 Heart rate52 /Chris Zhang MD Work Phone: [facility]10-14-2025 13:47-0400 Respiratory rate16 /Chris Zhang MD Work Phone: [facility]10-14-2025 13:47-0400 SaO2% (BldA) [Mass fraction]99 %Erin Zhang MD Work Phone: [facility]10-14-2025 13:47-0400 Systolic blood grjvrqip146 mm[Hg]Erin Zhang MD Work Phone: [phone]08-28-2025 08:33-0400 Body spryug395.7 cmHeather Perne 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 Phone: [phone] Shawarmanji Einqle61-00-4325 08:33-0400Body mass index (BMI) [Ratio]24.33 kg/v4Ukualge Perne 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 Phone: 1(129)[facility] Shawarmanji Schqos39-85-9837 08:33-0400Body ovhtfk78.58 kgHeather Perne 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 Phone: 1(124)[facility] Rwtdwg68-52-9264 08:33-0400Diastolic blood jpppqpfe11 mm[Hg]Erika Perne 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 Phone: 1([phone])[facility] Ausrbt46-28-5623 08:33-0400Heart rate 54 /minHeather Perne 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 Phone: 1([phone] Shawarmanji Jjksny25-91-4833 08:33-1203TcF0% (BldA) [Mass fraction]97 %Erika Perne 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 Phone: 1(407)[facility] Wakewk99-93-1764 08:33-0400Systolic blood vxzwokve607 mm[Hg]Erika Perne 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 Phone: 1([phone])[facility] Zhrjlm87-02-8032 08:40-0400Body mass index (BMI) [Ratio]24.78 kg/b9Lvenknx Perne 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 Phone: 1(232)[facility] Vuryaf65-01-7812 08:40-0400Body xoagdq82.94 kgHeather Perlisa 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 Phone: 1(069)[facility]08-21-2025 08:40-0400Diastolic blood csmsqwcy27 mm[Hg]Erika Perlisa 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 Phone: 1([phone])[facility]08-21-2025 08:40-0400Heart rate 50 /minHeather Perne 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 Phone: 1(679)[facility]08-21-2025 08:40-0400Systolic blood zrihdzzg475 mm[Hg]Erika Perlisa 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 Phone: 1(465)[facility]04-29-2025 15:38-0400Body vguqso683.[address] [facility]04-29-2025 15:38-0400Body mass index (BMI) [Ratio]25.4 kg/y4WfykwdxalMercy Health St. Anne Hospital04-29-2025 15:38-0400Body ybbksyzxivc84.7 [degF][facility]04-29-2025 15:38-0400Body wvfnae02.[address] [facility]04-29-2025 15:38-0400Diastolic blood eeiaumph69 mm[Hg][facility] 08-03-2024 15:38-0400Heart rate68 /[facility] 08-03-2024 15:38-0400Respiratory rate16 /[facility] 08-03-2024 15:38-6531IiE0% (BldA) [Mass fraction]94 %[facility]04-29-2025 15:38-0400Systolic blood cqhitkma247 mm[Hg][facility]02-04-2025 09:39-0500Body .[address] [facility]02-04-2025 09:39-0500Body mass index (BMI) [Ratio]35.9 kg/m2 [facility]02-04-2025 09:39-0500Body rrypiysprob20.8 [degF][facility]02-04-2025 09:39-0500Body olreft882.[address] [facility]02-04-2025 09:39-0500Diastolic blood aerfotvc00 mm[Hg][facility]02-04-2025 09:39-0500Heart rate52 /min [facility]02-04-2025 09:39-0500Respiratory rate16 /min [facility]02-04-2025 09:39-6152GdT9% (BldA) [Mass fraction]98 %[facility]02-04-2025 09:39-0500Systolic blood mm[Hg][facility]08-08-2024 09:33-0400 Diastolic blood jiujqmvn97 mm[Hg]Linda Montelongo MD Work Phone: 1(376)[facility]08-08-2024 09:33-0400Heart rate 64 /minLinda Montelongo MD Work Phone: 1(685)[facility]08-08-2024 09:33-0400Systolic blood wlmaeqty283 mm[Hg]Linda Montelongo MD Work Phone: 1(193)[facility]08-08-2024 09:18-0400Body iwuych253.7 cmLinda Montelongo MD Work Phone: 1(271)[facility]08-08-2024 09:18-0400Body mass index (BMI) [Ratio]27.67 kg/c6KmtfktmLinda Montelongo MD Work Phone: 1(278)[facility]08-08-2024 09:18-0400Body egojtk63.56 kgLinda Montelongo MD Work Phone: 1([phone])[facility]08-08-2024 09:18-8100LsS6% (BldA) [Mass fraction]94 %Linda Montelongo MD Work Phone: 1([phone])[facility]08-22-2023 09:45-0400Body ifpufk607.72 Jose Manuel Robins Other [employer] Other 08-22-2023 09:45-0400Body mass index (BMI) [Ratio] 24.63 kg/u5Drmwhos Ditty Other [employer] Other 08-22-2023 09:45-0400Body .48 kgCameron Ditty Other [employer] Other 08-22-2023 09:45-0400Diastolic blood ltrcdzfi44 mm[Hg] Chevy Ditty Other [employer] Other 08-22-2023 09:45-0400Systolic blood mm[Hg] Chevy Ditty Other [employer] Other 09-22-2022 14:00-0400Body dpmgyo293.72 cmCameron Ditty Other [employer] Other 09-22-2022 14:00-0400Body mass index (BMI) [Ratio] 28.43 kg/t0Yvbqiha Ditty Other [employer] Other 09-22-2022 14:00-0400Body yqjons08.82 kgCameron Ditty Other [employer] Other 09-22-2022 14:00-0400Diastolic blood fgvpvtuu72 mm[Hg] Chevy Ditty Other [employer] Other 09-22-2022 14:00-0400Systolic blood sqjsidfu582 mm[Hg] Chevy Ditty Other [employer] Other 08-23-2022 09:51-0400Diastolic blood ewzjbrys00 mm[Hg] Darien PrePlay executive [facility] 08-23-2022 09:51-0400Mean blood zuxxxacd35 mm[Hg] Darien REYNOLDS executive [facility] 08-23-2022 09:51-0400Respiratory rate49 /minDarien PrePlay Executive [facility] 08-23-2022 09:51-0400Systolic blood futqmswu150 mm[Hg] [place]arien PrePlay executive [facility] 08-23-2022 09:39-0400Blood Pressure LocationDarien REYNOLDS executive [facility] 08-23-2022 09:39-0400Diastolic blood bqtzlyhp11 mm[Hg] Darien REYNOLDS Executive [facility] 08-23-2022 09:39-0400Heart rate45 /minDarien REYNOLDS Executive [facility] 08-23-2022 09:39-0400Systolic blood looztwxb717 mm[Hg] Darien PrePlay executive [facility] 09-22-2021 14:00-0400Body rtoknn032.72 cmCelvis Robins Other [employer] Other 09-22-2021 14:00-0400Body mass index (BMI) [Ratio] 28.13 kg/l2NocgctgChevy RosalesMOBITRACotilia Other [facility] [employer] Other 09-22-2021 14:00-0400Body txzzto11.92 kgCamhan RosalesMOBITRACotilia Other [facility] [employer] Other Encounters Encounter DateEncounter TypeCare ProviderFacilityStart: 01-18-2025 End: 68-14-4472erqjgyytcjFwzkmsp M Hoy MD Work Phone: [facility] Work Phone: Start: 01-18-2025 End: 66-52-6479Ulrjnmi encounter procedureSarbjit Tran MD-[facility] Neph[facility] [place] Work Phone: Start: 11-69-9848Ivp-patient / Non-visitSarbjit Tran MD-[facility] Professional [employer] Work Phone: Start: 01-05-2025 End: 77-91-9394avwzbciuwtIKQDOBDECCX [facility] Start: 12-02-2024 End: 32-10-6960Wkzcty outpatient visit 15 minutesHeather L Perne 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 Phone: [employer] [facility] FremontComment on above: Bilateral carotid artery stenosis without cerebral infarction (Primary Dx)Start: 12-02-2024 End: 24-89-4585tlqfzwfjitSNCPHYM L PERNEProMedica Hospital Ambulatory PPGStart: 12-01-2024 End: 25-13-7159ljcyyvsrbfTVRCYCX L PERNEProMedica Omaha HospitalStart: 11-25-2024 End: 62-88-3330Wpdviq outpatient visit 10 minutesHeather L Perne 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 Phone: [facility] FremontComment on above: Bilateral carotid artery stenosis without cerebral infarction (Primary Dx)Start: 11-25-2024 End: 43-37-3509Pyoajw OnlyAngie Urban CMAProMedica Jobst Vascular FremontComment on above:Bilateral carotid artery stenosis without cerebral infarction (Primary Dx); Occlusion and stenosis of unspecified carotid arteryOcclusion and stenosis of unspecified carotid artery; Bilateral carotid artery stenosis without cerebral infarctionStart: 11-15-2024 End: 78-33-4153WsqfsgNepojio F Osman MD Work Phone: [facility] Phys[facility]t Vascular SurgeryComment on above:Occlusion and stenosis of unspecified carotid artery; Bilateral carotid artery stenosis without cerebral infarctionStart: 08-03-2024 End: 50-40-4509cqyjiaqlotJqvxoidoaOhio State [facility]ing Hospital Work Phone: Start: 08-03-2024 End: 00-36-9696Szqtrgt encounter procedureScionhealth Physician GroupNEPONSIT [facility] [place] Work Phone: Start: 53-01-9189Znm-patient / Non-visitScionhealth Physician Group-[facility] Professional Co Work Phone: Start: 07-13-2024 End: 06-89-5408wqezkwnxdkTCOFOhioHealth Grant Medical Centertart: 05-11-2024 End: 86-49-6793Lkwrqsh encounter procedureScionhealth Physician GroupNEPONSIT BEACH [facility]OS[facility] Nephrology [place] Work Phone: Start: 04-30-2024 End: 16-32-5612urgwvsztyhVOPJWYU [facility] Start: 11-13-2023 End: 35-62-3169Vfucli outpatient new 45 minutesMotimmy Montelongo MD Work Phone: [facility] Phys[facility] Vascular SurgeryComment on above:Bilateral carotid artery stenosis without cerebral infarction (Primary Dx); Occlusion and stenosis of unspecified carotid arteryStart: 20-61-8235ilbnpouznl Darien REYNOLDSFacility:EU EriuskyStart: 06-16-2023 End: 16-31-3383lbobpzuldkFxnktxd P COOKFacility:EU ElenayStart: 06-16-2023 End: 58-49-5065Sotdqnl encounter procedureGregory P GAIL Executive [facility] Start: 11-26-2022 End: 99-36-2870jfzwfmiehgHvifnxo Ditty Other [employer] Other Start: 07-78-6361Ixwmtzz encounter procedureCameron DittyFPG GastroenterologyStart: 08-13-2022 End: 41-49-8979zuwpcusbcaMP ERIN HOY .Facility:N0Witkp: 47-86-1221oifruooxoz Alli R NILLFacility: Samantart: 08-09-2022 End: 08-08-7705lgwspojvaxYW ERIN HOY .Facility:M8Qkhkd: 08-08-2022 End: 16-22-7945xdvvcgukmlXG ERIN HOY .Facility:K0Onuia: 08-07-2022 End: 20-02-7832kqwibtocpnAY NONE LISTED REQUESTFacility:W0Uvkmw: 07-19-2022 End: 45-94-4518gjkoczeqcjLS ERIN HOY .Facility:X1Fsxlm: 07-17-2022 End: 73-58-0240figjbxulueUZ ERIN HOY .Facility:F7Hykqk: 06-02-2022 End: 91-69-9385satosimkvnCX ERIN HOY .Facility:I8Jsqqa: 05-30-2022 End: 39-24-1758shfwqpuanmOW ERIN HOY .Facility:P4Dmfev: 04-05-2022 End: 39-95-4879btwdbfdaqzPWMNYXH ALGHOTHANIFacility:K4Wifak: 04-01-2022 End: 88-71-9799oyzhqchulaSDAJSOG ALGHOTHANIFacility:K0Nrxkk: 02-05-2022 End: 89-26-4895vygkojcljqAB ERIN HOY .Facility:D8Mebky: 12-27-2021 End: 89-28-7850ohnumoywiwZpskknw Ditty Other [employer] Other Start: 18-13-2519Gizcfsh encounter procedureCameron DiwilmayFPG GastroenterologyStart: 12-26-2021 End: 63-35-4956nxoyajonwxRU ERIN HOY .Facility:O2Atsil: 11-27-2021 End: 54-84-0992Zzwhicw encounter procedureDarien REYNOLDS Executive [facility] Start: 10-18-2021 End: 88-79-1510nbwctirvvcTL DOCTOR MISCFacility:W7Yfxwl: 09-21-2021 End: 30-88-8504wlpkjzmmjmIHMYUGU BOESFacility:O5Ibwmf: 09-18-2021 End: 49-73-8433mgjaueuwiuGWSEDIO BOESFacility:D0Hsfec: 09-14-2021 End: 08-56-3467uzovxxflnsCR ERIN HOY .Facility:L9Wyzyb: 09-10-2021 End: 80-64-3747cgqbuylakxGR ERIN HOY .Facility:G0Bdluq: 08-21-2021 End: 18-80-3866lkbfphirveFA NONE LISTED REQUESTFacility:I8Tmoes: 12-27-2020 Patient encounter procedureCamhan StraussyFPG GastroenterologyStart: 01-21-2017 End: 33-53-9683TagnqdemvwKXYFQEZ PHYSICIANFacility:UTMCStart: 01-17-2017 End: 26-02-8520KywcybjkprRLQFNGX PHYSICIANFacility:UTMCStart: 01-15-2017 End: 64-63-2240FzizksstwkDLUEEPMadison Health Procedures DateProcedureProcedure DetailPerforming ClinicianStart: 32-57-1950Jmqqcp-up visitFollow-upHEATHER L PERNEStart: 16-81-5769SZQ screeningDR ERIN HOY . Comment on above:Performed By: #### CPEPT #### [facility] [address] [place] [address] Dr. Deepika TerrellStart: 38-05-1320Zyzpaexokzsxj water vapor ablation of prostate Darien REYNOLDS Start: 22-68-9850AsmzqetrwjRdxocpm [employer] Start: 08-17-2311MSAXGDKB PATHOLOGYCHET GASPARtart: 37-83-6497WPC GLUCOSE FINGERSTICKMAMCI GASPARtart: 12-20-8339OZFVCMOCQ PATIENT CHET GASPARtart: 28-56-7422HFTVNBLT PATHOLOGYCHET GASPARtart: 62-97-4664YSPRVA CHET GASPARtart: 18-16-5914MYZBKSCYNWVOA KHANStart: 56-17-2384Iwopzzhqpu pulse oximetryCHET GASPARtart: 76-38-3234RGGDRPQZ OXYGEN THERAPY PROTOCOLCHET NESBITT Start: 47-36-3386QVGVW/VASCULAR CHECKSMEJONO GASPARtart: 44-16-8023SCQSTP PHYSICIAN (SPECIFY)CHET GASPARrt: 95-90-2347VHUUDUA COMMUNICATIONCHET NESBITT Start: 68-92-2037LIUKBI IVCHET GASPARrt: 66-52-9397SWWNT SIGNSCHET NESBITT Start: 78-35-7702PEQWHUXMTE W/GFR POINT OF CAREMIOJNO GASPARtart: 67-80-2507DSMP GLUCOSEMIJONO GASPARrt: 58-36-2679UCN CHEM8 INCLUDES CALC. ANION GAPCHET NESBITT AppendectomyDarien REYNOLDS Surveypal Cataract (disorder)Darien REYNOLDS Surveypal Cataract (morphologic abnormality)Darien WordSentry ColonoscopyDarien REYNOLDS Surveypal Hernia of abdominal cavity (disorder)Darien WordSentry Plan of Treatment DateCare ActivityDetailAuthorStart: 12-02-2025 End: 06-13-3801ND Carotid arteries - bilateralVas carotid duplex bilateral Vascular Ultrasound Routine Bilateral carotid artery stenosis without cerebral infarction Expected: 12/02/2025 (Approximate), Expires: 12/02/2025[facility] Work Phone: Comment on above:Expected: 12/02/2025 (Approximate), Expires: 12/02/2025Start: 61-42-0541Hvknkbi ScreeningTobacco ScreeningMercy Hospital SystemStart: 69-10-8832Dtdggpndn vaccinationInfluenza VaccineHighsmith-Rainey Specialty Hospitaltart: 12-02-2024 End: 42-09-7627Lgqgmcm encounter fnzafsvws92/28/2025 8:45 AM EDT Office Visit [facility] [address] [place] [address] Erika Dotson, WIND TURBINE ENGINEER-AUTOMATION MACHINE BUILDER [address] [place] [address] [facility]igantart: 12-01-2024 End: 04-38-0275Tmhavkx encounter rtmehkosh59/27/2025 8:30 AM EDT Appointment [facility] V[facility] [address] [place] [address] McjAehzttBlanchard [facility] - VascularStart: 11-25-2024 End: 20-13-0598NV Carotid arteries - bilateralVas carotid duplex bilateral Vascular Ultrasound Routine Bilateral carotid artery stenosis without cerebral infarction Occlusion and stenosis of unspecified carotid artery Expected: 11/25/2024, Expires: 11/25/2025[facility] Work Phone: Comment on above:Expected: 11/25/2024, Expires: 11/25/2025Start: 11-25-2024 End: 38-43-9120Wxhvhoa encounter kfyosxcep50/21/2025 8:45 AM EDT Office Visit [facility] [address] [place] [address] Erika Dotson, WIND TURBINE ENGINEER-AUTOMATION MACHINE BUILDER [address] [place] [address] [facility] Michigantart: 46-71-5747Qogcflx ScreeningTobacco ScreeningProMedica Health SystemStart: 11-12-2024 End: 25-00-6244SE Carotid arteries - bilateralVas carotid duplex bilateral Vascular Ultrasound Routine Occlusion and stenosis of unspecified carotid artery Bilateral carotid artery stenosis without cerebral infarction Expected: 11/12/2024 (Approximate), Expires: 11/12/2024[facility] Work Phone: [phone] on above:Expected: 11/12/2024 (Approximate), Expires: 11/12/2024Start: 07-56-1658CGZVU-19 Vaccine ()COVID- 19 Vaccine ()[facility] SystemStart: 66-28-4374EBXPW-19 Vaccine ()COVID-19 Vaccine ()[facility] SystemStart: 27-63-2228Rfuttmihy vaccinationInfluenza VaccineProC[facility] SystemStart: 90-65-1576QFWDA-19 Vaccine ()COVID-19 Vaccine ()[facility] SystemStart: 82-77-0587Aynn Risk ScreeningFall Risk ScreeningProC[facility] SystemStart: 59-58-2326QSfG,Tdap and Td Vaccines (1 - Tdap)DTaP,Tdap and Td Vaccines (1 - Tdap)[facility] SystemStart: 11-99-8567Zplup BMI Follow Up PlanAdult BMI Follow Up PlanProC[facility] SystemStart: 73-80-5025Xpnhk BMI ScreeningAdult BMI ScreeningProUab [facility] SystemStart: 71-69-9140Nnajuumkmb ScreeningDepression ScreeningProUab [facility] SystemStart: 36-23-1172Yzwubpc ScreeningTobacco ScreeningProCleveland Clinic Mentor Hospital SystemStart: 02-24-1936Medicare Annual Wellness VisitMedicare Annual Wellness VisitMercy Hospital SystemRenal function 1999 panel - Serum or [facility] HospitalRen[facility] function 1999 panel - Serum or [facility] HospitalRenal function 1999 panel - Serum or [facility] HospitalUS Kidney - [facility] Immunizations Immunization DateImmunizationNotesCare UpurrpfdXcwfgrby57-28-1037vufljwrgs virus vaccine, unspecified formulationHeather Perne 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 Phone: ProWvumedicine [facility] HospitalSpdgaa53-86-0827vtmjgp vaccine recombinantGregory COOK [facility] [place] 322861-20-2023zoster vaccine recombinantGregory COOK [facility] [place] 322860-23-2023influenza virus vaccine, unspecified formulationGregory COOK [facility]02-26-2023influenza virus vaccine, unspecified formulationGregory COOK [facility]02-26-2023pneumococcal conjugate vaccine, 13 valentGregory COOK [facility] [place] 322860-17-2022influenza virus vaccine, unspecified formulationGregory COOK [facility]06-23-2022SARS-CoV-2 (COVID-19) mRNA-1273 vaccineGregory COOK [facility]01-18-2022SARS-CoV-2 (COVID-19) mRNA BNT-162b2 vaxGregory COOK [facility] [place] 322860-21-2021influenza virus vaccine, unspecified formulationGregory COOK [facility]03-02-2021SARS-CoV-2 (COVID-19) mRNA-1273 vaccineGregory PrePlay [facility] 033262-17-5054VDMH-RgI-0 (COVID-19) mRNA-1273 vaccine Darien PrePlay [facility]01-05-2021SARS-CoV-2 (COVID-19) mRNA-1273 vaccineGregory PrePlay [facility] 129640-08-3693cmzejlmap virus vaccine, unspecified formulationGregory COOK [facility]10-01-2020influenza virus vaccine, unspecified formulationGregory COOK [facility] 10445663-64-6240pcsrdqndv virus vaccine, unspecified formulationGregory COOK [facility]11-01-2017pneumococcal conjugate vaccine, 13 valentGregory PrePlay [facility]10-23-2017influenza virus vaccine, unspecified formulationGregory COOK [facility]10-09-2017influenza virus vaccine, unspecified formulationGregory COOK [facility]10-02-2017influenza virus vaccine, unspecified formulationGregory COOK [facility]09-28-2016influenza virus vaccine, unspecified formulationGregory COOK [facility]10-02-2015influenza virus vaccine, unspecified formulationGregory COOK [facility]10-30-2014influenza virus vaccine, unspecified formulationNeshoba County General HospitalKonoz [facility]10-21-2009influenza, wholeNeshoba County General Hospitalelsa PrePlay [facility] Payers DatePayer CategoryPayerPolicy [id number] Care Other (unspecified)[facility] [id number] [id number] [id number].[facility] [id number] 2.16840.0.087350.30879079-65-4234Jhcp-jel56-16-5751 [id number] 2.16.840.1.994331.3.579.2. [id number] 2.16840.1.537642.3.57[id number] 2.16840.1.483132.3.57[id number] 2.16.840.1.947930.3.57[id number] 2.16.840.1.273124.3.57[id number] 2.16.840.1.586436.3.57[id number] 2.16.840.1.993576.3.57[id number] 2.16.840.1.248903.3.57[id number] 2.16.840.1.239079.3.57[id number] 2.16840.1.157346.3.57[id number] 2.16840.1.044390.3.57[id number] 2.16.840.1.764690.3.57[id number] 2.16840.1.418432.3.57[id number] 2.16840.1.555401.3.57[id number] 2.16.840.1.407922.3.57[id number] 2.16.840.1.984848.3.57[id number] 2.16.840.1.139847.3.57[id number] 2.16.840.1.353043.3.579.2.48821-13-8503Bvygrif20596827 2.16.840.1.590017.3.57[id number] 2.16.840.1.187641.3.579.[id number] 2.16.840.1.450811.3.579.[id number] 2.16.840.1.158721.3.579.2.2396Rqwwytd38583903 2.16.8[id number] 2.16.840.1.4[id number] 2.840.1.155506.3.579.2.593 Social History DateTypeDetailFacilityStart: 05-18-2020 End: 55-81-9402Jkb [facility]igned At [facility] [place] Other Start: 11-27-2021 End: 68-42-3862Zkswefo smoking statusNever smoked tobacco (finding)[facility] Tobacco smoking statusNeverExec[facility] Start: 11-13-2023 End: 06-36-3569Mmgjnbk smoking status NHISEx-smokerMercy Hospital System End: 42-26-1833Eqzeovb of tobacco useCurrent smokerMercy Hospital System End: 91-30-0286Tpdarfq of tobacco useCigarette SmokerMercy Hospital System Start: 77-88-4167Dogqczb use and exposureSmokeless tobacco non-userProUab [facility] SystemStart: 11-13-2023 End: 31-63-8099Fjnqeejik beverage intakeCurrent drinker of alcohol (finding) [facility] hospitalNerveda SystemStart: 05-18-2020 End: 16-58-1894Sinlllgzb beverage intakeTriHealth McCullough-Hyde Memorial HospitalAxiata SystemStart: 07-29-2017 Alcohol Comment1 dailyProCleveland Clinic Union HospitalAxiata SystemStart: 72-79-2892Def assigned at birthNot on fileCopley HospitalChronoWake SystemStart: 11-10-2014 End: 02-52-4481SteCxkx (finding)[facility] Hospitaltart: 22-43-7248Esm Assigned At [facility] Medical Equipment Procedure CodeEquipment CodeEquipment Original TextEquipment IdentifierDatesLen Iol +18.5 D Cnvxpln Klmn Rpl 96878 - [id number] - [id number]: 07-31-2017 Functional Status KmtfYludyilwikYbbnlaPvwhygfh95-13-6024Phsdhsrxch StatusN/AExec[facility] Clinical Notes 12-27-2020 to 01-05-2025 Note Date & UgmnTptiFhfnnqjd31-02-0516 NoteSubjective Patient ID: Mason Natarajan is a 89 [...] in about 4 weeks (around 02/02/2025) for Recheck.[facility]08-28-2025 History of Present illness Narrative* Erika Dotson, 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 To: ERIN ZHANG MD HPI: Mason Natarajan is a 89 [...] in the morning and 1 tablet beforebedtime. levothyroxine (SYNTHROID, LEVOTHROID) 50 MCG tablet Take 1 tablet (50 mcg total) by mouth in the morning. liothyronine (CYTOMEL) 5 MCG tablet Take 2 tablets (10 mcg total) by mouth in the morning. lisinopril (PRINIVIL,ZESTRIL) 40 mg tablet Take 1 tablet (40 mg total) by mouth in the morning. kspjmamz-emykkpva-tzprmfu fum (MULTI VITAMIN) 9 mg iron/15 mL [...] total) by mouth in the morning. (Patient nottaking: Reported on 12/02/2024) aspirin 81 mg chewable [...] Date Cataract Diabetes mellitus type 2, controlled ([facility]) Hypertension Hypothyroidism Injury of back 1984 back surgery Visual impairment glasses Past Surgical History: Past Surgical History: Procedure Laterality Date APPENDECTOMY BACK SURGERY CATARACT EXTRACTION IMPLANT SECONDARY LENS Left 07/31/2017 Performed by Orly Mares MD at [facility] SH[facility] SURGERY left rotator cuff TONSILLECTOMY [...] Interpersonal Safety: Unknown (05/29/2023) Received from [facility] Safety & Environment Fear of Current or [...] CUFF SIZE: M (9-13 inches)) Pulse 54 Ht172.7 cm (5' 8 ) Wt 72.6 kg [...] Doppler or color flow disturbances; ICA 95/15 cm/sec.Antegrade vertebral artery flow. Assessment and Plan: RTC 12 months with carotid US prior Continue plavix, statin Blood pressure control AFSHIN Magana 12/02/24 0936 documented in this encounterDayton [facility] Medical Center08-21-2025 History of Present illness Narrative* AFSHIN Magana - 11/25/2024 8:45 AM EDT Images from the original note were not included. To: ERIN ZHANG MD HPI: Mason Natarajan is a 89 [...] total) by mouth in the morning. (Patient nottaking: Reported on 11/25/2024) aspirin 81 mg chewable [...] in the morning and 1 tablet beforebedtime. (Patient not taking: Reported on 11/25/2024) lecithin 1,200 mg capsule Take 1,200 mg by mouth. (Patient not taking: Reported on 11/25/2024) lisinopril (PRINIVIL,ZESTRIL) 40 mg tablet Take 1 tablet (40 mg total) by mouth in the morning. (Patient not taking: Reported on 11/25/2024) kzrilrec-ckmeyqlc-emrhmzo fum (MULTI VITAMIN) 9 mg iron/15 mL liquid Take 500 mg by mouth. (Patientnot taking: Reported on 11/25/2024) potassium chloride (K-TAB,KLOR-CON) 10 MEQ CR tablet Take 1 tablet (10 mEq total) by mouth in the morning and 1 tablet (10 mEq total) in the evening. Take with meals. (Patient not taking: Reported on11/25/2024) turmeric-turmeric root extract 450-50 mg capsule Take 50 mg by mouth. (Patient not taking: Reportedon 11/25/2024) No current facility-administered medications on file prior to visit. Past Medical History: Past Medical History: Diagnosis Date Cataract Diabetes mellitus type 2, controlled ([facility]) Hypertension Hypothyroidism Injury of back 1985 back surgery Visual impairment glasses Past Surgical History: Past Surgical History: Procedure Laterality Date APPENDECTOMY BACK SURGERY CATARACT EXTRACTION IMPLANT SECONDARY LENS Left 07/31/2017 Performed by Orly Mares MD at [facility] SHOULDER SURGERY left rotator cuff TONSILLECTOMY Social [...] Interpersonal Safety: Unknown (05/29/2023) Received from [facility] Safety & Environment Fear of Current or [...] AFSHIN Magana 11/25/24 0919 documented in this encounterCopley HospitalRifiniti04-08-2025 NoteUT Electrophysiology Consult Note ID Cardiology [facility] Reason for visit: HPI: Mason Natarajan [...] Insecurity: No Food Insecurity (11/13/2023) Received from [facility] Hunger Screening Within the past 12 months [...] on file Intimate Partner Violence: Unknown (05/29/2023) ID Safety & Environment Fear of Current or [...] no thoracic deformity Au (more content not included)...[facility]02-04-2025 Evaluation note* Diagnosis Onset Date Resolution Status Admit Date BPH loc w urin obs/LUTS acuteFebruary 2024 9:31amChronic kidney disease, stage 3bacuteFebruary 2024 9:31amHyperkalemiaacuteFebruary 2024 9:31amHypertensive nephropathy acuteFebruary 2024 9:31amVitamin D deficiencyacuteFebruary 2024 9:31am Anemia of renal diseaseacuteApril 2024 3:36pmBPH loc w urin obs/LUTSacute Sherine 2024 3:36pmChronic kidney disease, stage 3bacuteApril 2024 3:36pmHyperkalemiaacuteApril 2024 3:36pmHypertensive nephropathyacuteApril 2024 3:36pmVitamin D deficiencyacuteApril 2024 3:36pm [facility] Work Phone: [phone]) 373-356901-24-2025 NoteCardiology Follow Up Progress Note HPI: Mason [...] -Aggressive risk factor modific (more content not included)...[facility]08-08-2024 Evaluation + Plan note* Assessment & Plan Note - Linda Montelongo MD - 11/13/2023 9:37 AM EDTAssociated Problem(s): Bilateral carotid artery stenosis without cerebral infarction We will start him on aspirin Plavix and statin. I discussed with him risk factors modification and close surveillance.Will get an ultrasound in a year. [facility] OhioNerveda [id number] Miscellaneous Notes* Assessment & Plan Note - Linda Montelongo MD - 11/13/2023 9:37 AM EDTAssociated Problem(s): Bilateral carotid artery stenosis without cerebral infarction We will start him on aspirin Plavix and statin. I discussed with him risk factors modification and close surveillance.Will get an ultrasound in a year. documented in this encounterDayton [facility] Medical Center08-08-2024 History of Present illness Narrative* Linda Montelongo MD - 11/13/2023 9:20 AM EDT Images from the original note were not included. To: ERIN ZHANG MD HPI: Mason Natarajan is a 88 [...] mg total) by mouth in the morning. wpflpuoh-sntyxubx-bnufvpq fum (MULTI VITAMIN) 9 mg iron/15 mL [...] Date Cataract Diabetes mellitus type 2, controlled ([facility]) Hypertension Hypothyroidism Injury of back 1984 back surgery Visual impairment glasses Past Surgical History: Past Surgical History: Procedure Laterality Date APPENDECTOMY BACK SURGERY CATARACT EXTRACTION IMPLANT SECONDARY LENS Left 07/31/2017 Performed by Orly Mares MD at [facility] left rotator cuff TONSILLECTOMY [...] Interpersonal Safety: Unknown (05/29/2023) Received from [facility] Safety & Environment Fear of Current or [...] - [facility] [place] [place] Linda Montelongo MD, MC, RPVI, FSVS, FACS [...] you for your understanding. documented in this encounterTriHealth McCullough-Hyde Memorial HospitalTalentag Sparrow Ionia HospitalBzumgf69-52-2430 Evaluation note* Encounter Date Diagnosis Assessment Notes Treatment Notes Treatment Clinical Notes Nov, Microscopic colitis (ICD-10 - K5 2.89) Patient to use OTC probiotic and OTC Fiber supplement to help normalize the stools. Patient to finish remaining 2 weeks of medication and call if diarrhea returns after stopping the medication. RTO in 1 year. [employer] Other 09-22-2022 Evaluation note* Encounter Date Diagnosis Assessment Notes Treatment Notes Treatment Clinical Notes Dec, Microscopic colitis (ICD-10 - K5 2.89) REASSURANCE PT ADVISED TO ADD FIBER SUPPLEMENT TO DIET F/U PRN [employer] Other 08-23-2022 Hospital Discharge instructions Patient Education [...] urethra. Follow these instructions at home: Take aybg-sna-eckakvd and prescription medicines only as told by [...] 03/24/2006 Document Revised: 02/16/2019 Document Reviewed: 04/28/2017 [employer] Patient Education 2020 [employer]. Follow Up Care 05/30/2021 14:56:10 With:Darien REYNOLDS MD, URL Address: [facility] [employer] [place] [id number]:6 months [facility] [id number] Evaluation note* Encounter Date Diagnosis Assessment Notes Treatment Notes Treatment Clinical Notes Dec, Microscopic colitis (ICD-10 - K5 2.89) Colitis home care material was printed will taper the budesonide at this time patient to finish the 9 mg taper then move to the 6 mg taper. [employer] Other Evaluation + Plan note Future Appointments Appointment Date:06/11/2022 09:30:00 AM Scheduled Provider:Darien REYNOLDS MD Location:[facility] Appointment Type:URO Office Visit [facility] Evaluation note* Diagnosis Bilateral carotid artery stenosis without cerebral infarction- Primary Occlusion and stenosis of unspecified carotid artery documented in this encounter [facility] SystemEvaluation note* Diagnosis Bilateral carotid artery stenosis without cerebral infarction- Primary Occlusion and stenosis of unspecified carotid artery Occlusion and stenosis of unspecified carotid artery Bilateral carotid artery stenosis without cerebral infarction documented in this encounter [facility] Shaw[facility]ji SystemEvaluation note* Diagnosis Bilateral carotid artery stenosis without cerebral infarction- Primary Occlusion and stenosis of unspecified carotid artery Bilateral carotid artery stenosis without cerebral infarction- Primary [facility]* Diagnosis Bilateral carotid artery stenosis without cerebral infarction- Primary Occlusion and stenosis of unspecified carotid artery Bilateral carotid artery stenosis without cerebral infarction- Primary Occlusion and stenosis of unspecified carotid artery documented in this encounter [facility] SystemEvaluation note* Diagnosis Bilateral carotid artery stenosis without cerebral infarction- Primary Occlusion and stenosis of unspecified carotid artery Occlusion and stenosis of unspecified carotid artery Bilateral carotid artery stenosis without cerebral infarction documented in this encounter [facility] SystemEvaluation note* Diagnosis Bilateral carotid artery stenosis without cerebral infarction- Primary Occlusion and stenosis of unspecified carotid artery Bilateral carotid artery stenosis without cerebral infarction- Primary documented in this encounter [facility] SystemEvaluation [facility]* Diagnosis Onset Date Resolution Status Admit Date Anemia of renal disease acuteOctober 2024 1:46pmBPH loc w urin obs/LUTSacuteOctober 2024 1:46pmChronic kidney disease, stage 3bacuteOctober 2024 1:46pmHyperkalemia acuteOctober 2024 1:46pmHypertensive nephropathyacuteOctober 2024 1:46pmVitamin D deficiencyacuteOctober 2024 1:46pm [facility] Work Phone: History general Narrative - Reported* Type Description [...] 1998 Hospitalization History SEE ABOVE SURGICAL HX [employer] Other History general Narrative - Reported* Type [...] Hospitalization History SEE ABOVE SURGICAL HX Hospitalization [id number]05/2022 [facility] [employer] Other Hospital course Narrative No data available for this section [facility] Hospital Discharge instructions No data available for this section [facility] InstructionsNot on filedocumented in this encounter [facility] SystemInstructionsNot on filedocumented in this encounter [facility] SystemInstructionsNot on filedocumented in this encounter [facility] SystemInstructionsNot on filedocumented in this encounter [facility] SystemInstructionsNot on filedocumented in this encounter [facility] SystemProgress note No data available for this section [facility] Reason for referral (narrative)No reason for referral information availableOhiohealth Van Wert Hospital Work Phone: Summary Purpose Family History Relationship Condition Age at Onset Recorded Date/T esvin mother Malignant neoplasm of uterus Unknown fatherRenal failureUnknown Advance Directives Advance Directive Response Recorded Date/ Time Advance Directives No May 10, 2024 12:43pm Reason for Referral SpecialtyDiagnoses / ProceduresReferred By ContactReferred To Contact Diagnoses Occlusion and stenosis of unspecified carotid artery Bilateral carotid artery stenosis without cerebral infarction Procedures Vas carotid duplex bilateral Linda Montelongo MD [address], [place] [address] Referral IDStatusReasonStart DateExpiration DateVisits RequestedVisits [id number] Chief Complaint and Reason for Visit Chief [...] D deficiency August 03, 2024 3: 36pm Chief Complaint Admit Date 6 month f/u January 18, 2025 1 :46pm Reason for Visit Admit Date Anemia of renal disease January 18 1:46pm BPH loc w urin obs/LUTS January 18 1:46pm Chronic kidney disease, stage 3b January 18, 2025 1:46pm Hyperkalemia January 18, 2025 1 :46pm Hypertensive nephropathy January 18 025 1:46pm Vitamin D deficiency January 18, 2025 1:46pm Additional Source Comments (unrecognized sect ion and content) No Status Records FoundNo Status Records FoundNo Status Records FoundNo Status Records FoundNo Status Records FoundNo Status Records FoundNo Status Records FoundNo Status Records Found INFORMATION SOURCE (unrecogn ized section and content) DATE CREATED AUTHOR 09/30/2017 [facility] DATE CREATED AUTHOR AUTHOR'S ORGANIZ ATION 09/30/2017 [facility] DATE CREATED AUTHOR AUTHOR'S ORGANIZ ATION 10/30/[address] [facility] DATE CREATED AUTHOR AUTHOR'S ORGANIZ ATION 08/19/2022 [facility] DATE CREATED AUTHOR AUTHOR'S ORGANIZ ATION 08/10/2023 [facility] DATE CREATED AUTHOR AUTHOR'S ORGANIZ ATION 12/02/2024 [facility] DATE CREATED AUTHOR AUTHOR'S ORGANIZ ATION 12/04/2024 [facility] DATE CREATED AUTHOR AUTHOR'S ORGANIZ ATION 01/10/2025 [facility] REASON FOR VISIT (unrecogniz ed section and content) ReasonCommentscarotid stenosisVenous duplex in mediaSpecialtyDiagnoses / ProceduresReferred By ContactReferred To ContactVascular Surgery Diagnoses Occlusion and stenosis of unspecified carotid artery Erin Zhang MD [address] [place] [phone] Linda Montelongo MD [address] [place] [address] Referral IDStatusReasonStart DateExpiration DateVisits RequestedVisits [id number] Review Specialty Services Required [id number] RefillReasonCommentsFollow-upCarotid Artery DiseaseTesting not doneReasonOnset DateCommentsMed Zuyihr7111/25/2024Reason Commentsfollow up on testing of fUSfollow up with testing on 12/01Dx: Bilateral carotid artery stenosis without cerebral infarction [I65.23]; Occlusion and stenosis of unspecified carotid artery [I65.29] Care Team (unrecognized sect ion and content) Team Status: Active Member Role Status Gus Zhang MD Primary Care Provider Active Team Status: Active Member Role Status Gus Zhang MD Primary Care Provider Active Start: January 12, 2025 Omaira Ham ProviderActiveStart: January 12, 2025 Team Status: Inactive Member Role Status Gus Zhang MD Primary Care Provider Active Start: January 18, 2025 End: January 18Omaira Orona ProviderActiveStart: January 18, 2025 End: January 18, 2025Team MemberRelationshipSpecialtyStart DateEnd Date Erin Zhang MD [address] [place] [address] PCP - [facility]07/31/17 Team Status: Active Member Role Status Gus Zhang MD Primary Care Provider Active Team Status: Inactive Member Role Status Gus Zhang MD Primary Care Provider Active Start: May 11, 2024 End: May 11Omaira Orona ProviderActiveStart: May 11, 2024 End: May 11, 2024 Team Status: Active Member Role Status Gus Zhang MD Primary Care Provider Active Start: July 26, 2024 HudsonJose Hsiehmary ProviderActiveStart: July 26, 2024 Team Status: Inactive Member Role Status Gus Zhang MD Primary Care Provider Active Start: August 03, 2024 End: August 03Omaira Orona ProviderActiveStart: August 03, 2024 End: August 03, 2024Team MemberRelationshipSpecialtyStart DateEnd Date Erin Zhang MD PCP General07/31/17Team MemberRelationshipSpecialtyStart DateEnd Date Erin Zhang MD PCP [facility]07/31/17Team MemberRelationshipSpecialtyStart DateEnd Date Erin Zhang MD PCP [facility]07/31/17Team MemberRelationshipSpecialtyStart DateEnd Date Erin Zhang MD PCP [facility]07/31/17 Team Status: Active Member Role Status Gus Zhang MD Primary Care Provider Active Start: January 12, 2025 Omaira Ham ProviderActiveStart: January 12, 2025 Team Status: Inactive Member Role Status Gus Zhang MD Primary Care Provider Active Start: January 18, 2025 End: January 18Omaira Orona ProviderActiveStart: January 18, 2025 End: January 18, 2025 Goals (unrecognized section and content) Goals may [...] BE BASED ON THE PRIMARY CLINICAL RECORDS. [facility] [employer] [facility]. provides no warranty or guarantee of the accuracy or completeness of information in this document.
--- OUTSIDE RECORDS SUMMARY | 2025-02-11 07:10 | XMS_ITS | Clinical Summary ---
Author Organization [employer] tem Address [id number] [address] [place] [address] Care Team Providers Care Sap Security Consultant Name Role Phone Art Berg MD Primary Care Provider [phone] Allergies No known active allergies Medications MedicationSigDispense QuantityRefillsLast FilledStart DateEnd DateStatus glimepiride (AMARYL) 2 mg tablet Take 2 mg by mouth every morning before breakfast.Active lisinopril (PRINIVIL,ZESTRIL) 40 mg tablet Take 1 tablet (40 mg total) by mouth in the morning.Active levothyroxine (SYNTHROID, LEVOTHROID) 50 MCG tablet Take 1 tablet (50 mcg total) by mouth in the morning.Active pwfutswd-lgclsupc-iokxhxf fum (MULTI VITAMIN) 9 mg iron/15 mL liquid Indications:mineral deficiency preventionTake 500 mg by mouth Indications: treatment to prevent mineral deficiency.Active garlic 1 mg capsule Take 500 mg by mouth.Active logan, Zingiber officinalis, (LOGAN EXTRACT) 250 mg capsule Take 250 mg by mouth.Active lecithin 1,200 mg capsule Take 1,200 mg by mouth.Active turmeric-turmeric root extract 450-50 mg capsule Take 50 mg by mouth.Active glucosamine-chondroitin 500-400 mg tablet Take 1 tablet by mouth in the morning and 1 tablet before bedtime.Active pantoprazole (PROTONIX) 40 mg EC tablet Take 1 tablet (40 mg total) by mouth every morning before breakfast.10/06/2023 Active amLODIPine (NORVASC) 10 mg tablet Take 1 tablet (10 mg total) by mouth in the morning.Active tamsulosin (FLOMAX) 0.4 mg capsule Take 1 tablet by mouth nightly.Active hydrALAZINE (APRESOLINE) 100 mg tablet Take 1 tablet (100 mg total) by mouth in the morning and 1 tablet (100 mg total) before bedtime.Active oxybutynin (DITROPAN) 5 mg tablet Take 1 tablet (5 mg total) by mouth every morning.11/12/2023ctive tiZANidine (ZANAFLEX) 4 mg tablet Take 1 tablet (4 mg total) by mouth every morning.Active sucralfate (CARAFATE) 1 gram tablet Take 1 tablet (1 g total) by mouth every morning.Active potassium chloride (K-TAB,KLOR-CON) 10 MEQ CR tablet Take 1 tablet (10 mEq total) by mouth in the morning and 1 tablet (10 mEq total) in the evening. Take with meals.11/05/2023ctive cetirizine (ZyrTEC) 10 mg tablet Take 1 tablet (10 mg total) by mouth in the morning.Active docusate sodium (COLACE) 100 mg capsule Take 1 capsule (100 mg total) by mouth as needed for constipation.Active aspirin 81 mg chewable tablet Indications:Occlusion and stenosis of unspecified carotid artery,Bilateral carotid artery stenosis without cerebral infarctionChew 1 tablet (81 mg total) and swallow in the morning. 30 tablet ctive Additional Information Patient not taking.Reported on 12/02/2024 clopidogreL (PLAVIX) 75 mg tablet Indications:Occlusion and stenosis of unspecified carotid artery,Bilateral carotid artery stenosis without cerebral infarctionTAKE 1 TABLET BY MOUTH IN THE MORNING 30 tablet 5Active ferrous sulfate 325 (65 FE) MG tablet Take 1 tablet (325 mg total) by mouth daily with breakfast.Active liothyronine (CYTOMEL) 5 MCG tablet Take 2 tablets (10 mcg total) by mouth in the morning.Active NIFEdipine CC (ADALAT CC) 60 MG 24 hr tablet Take 1 tablet (60 mg total) by mouth in the morning.Active diclofenac (VOLTAREN) 75 mg EC tablet Take 1 tablet (75 mg total) by mouth in the morning and 1 tablet (75 mg total) before bedtime.Active gabapentin (NEURONTIN) 100 mg capsule Take 1 capsule (100 mg total) by mouth 3 (three) times a day.Active atorvastatin (LIPITOR) 40 mg tablet Indications:Occlusion and stenosis of unspecified carotid artery,Bilateral carotid artery stenosis without cerebral infarctionTake 1 tablet (40 mg total) by mouth in the morning. 30 tablet 1205Active atorvastatin (LIPITOR) 40 mg tablet Take 1 tablet (40 mg total) by mouth in the morning for 364 days. 30 tablet /6Active Active Problems ProblemNoted DateDiagnosed DateBilateral carotid artery stenosis without cerebral /08/2024 Assessment & Plan (11/13/2023 9:37 AM EDT): We will start him on aspirin Plavix and statin. I discussed with him risk factors modification and close surveillance.Will get an ultrasound in a year. Encounters DateTypeDepartmentCare DokuCwcynrugesn06/28/2025 8:45 AM EDTOffice Visit [facility] [address] [place] [address] Erika Mckeon APRN-IRON MOLDER HELPER Bilateral carotid artery stenosis without cerebral infarction (Primary Dx) 12/01/2024 8:05 AM EDT - 12/01/2024 11:59 PM EDTHospital Encounter [facility] [address] [place] [address] Bilateral carotid artery stenosis without cerebral infarction; Occlusion and stenosis of unspecified carotid artery Discharge Disposition: Home12/01/20245297Wypkxs33/21/2025 8:45 AM EDTOffice Visit [facility] [address] [place] [address] Erika Mckeon APRN-IRON MOLDER HELPER Bilateral carotid artery stenosis without cerebral infarction (Primary Dx) 11/25/2024Orders Only [facility] [address] [place] [id number] 928 Shannan Palmer CMA Bilateral carotid artery stenosis without cerebral infarction (Primary Dx); Occlusion and stenosis of unspecified carotid ccilgr9111/25/2024[facility] [address] [place] [address] Linda Montelongo MD Occlusion and stenosis of unspecified carotid artery; Bilateral carotid artery stenosis without cerebral lxrctnykdx37/21/2025Travel 11/15/2024Refill [facility] [address] [place] [address] Linda Montelongo MD Occlusion and stenosis of unspecified carotid artery; Bilateral carotid artery stenosis without cerebral infarctionfrom Last 3 Months Social History Tobacco UseTypesPacks/DayYears UsedDateSmoking Tobacco: FormerCigarettesQuit: 08/01/1947Smokeless Tobacco: Never Tobacco Cessation:Counseling Given: Not Answered Alcohol UseStandard Drinks/WeekCommentsYes1 (1 standard drink = 0.6 oz pure alcohol)1 dailyChildcareAnswerDate QyfbicclHvicslsvtIbggjrx25/12/2019Employment AnswerDate KbzyncskLlnqmoykbbJzpxqqo37/12/2019Hunger ScreeningAnswerDate RecordedWithin the past 12 months we worried whether our food would run out before we got money to buy more.Never True12/02/2024Within the past 12 months the food we bought just didn't last and we didn't have money to get more.Never True12/02/2024Purpose - LifeAnswerDate RecordedPurpose and direction in life Wxjwpom0605/18/2020ex and Gender InformationValueDate RecordedSex Assigned at BirthNot on fileLegal EkrUrcr3811/10/2014 11:29 AM EDTGender IdentityNot on file Sexual OrientationNot on file Last Filed Vital Signs Vital SignReadingTime TakenCommentsBlood Vndubbcb809/5108 8:33 AM EDT Ewuku667812/02/2024 8:33 AM ZICEebesniwzvn10.7 ??C (98.1 ??F)07/31/2017 12:20 PM EDTRespiratory Bvtf021007/31/2017 12:20 PM EDTOxygen Yefvuqndwr34%12/02/2024 8:33 AM EDTInhaled Oxygen Concentration--Qbfgvy08.6 kg (160 lb)12/02/2024 8:33 AM EDT Zptddl460.7 cm (5' 8 )12/02/2024 8:33 AM EDTBody Mass Index24.33012/02/2024 8:33 AM EDT Plan of Treatment Health MaintenanceDue DateLast DoneCommentsDepression Ccimntuqq33/24/1948 DTaP,Tdap and Td Vaccines (1 - Tdap)1954Fall Risk Mtnnqiqzm07/24/2001 COVID-19 Vaccine ( season)/11/2023, 01/27/2023, 09/27/2021, Additional history existsInfluenza Pzuewqq28/11/2023, 01/27/2023, 06/02/2022, Additional history existsTobacco Khjmvjzkv35/21/2026 11/25/2024RSV ( or age 60+ yrs)Tjvlxfgkz92/06/2023Zoster (Shingles) IwcrfxfWxuzkgllk57/26/2024, 02/24/2023 Medical Devices ImplantedTypeAreaManufacturerDevice IdentifierShelf Expiration DateModel / Serial / LotLen Iol +18.[address] [facility] [address] - [id number] - [id number] Implanted:Qty: 1 on 07/31/2017 by Orly Mares MD at [facility]: [employer]06/04/[id number] / [id number] / N/A Procedures Procedure NamePriorityDate/TimeAssociated DiagnosisCommentsVASC CAROTID DUPLEX VTUDFZQYIZhvetpo18/27/2025 9:02 AM EDT Bilateral carotid artery stenosis without cerebral infarction Occlusion and stenosis of unspecified carotid artery from Last 3 Months Results * Vas carotid duplex bilateral (12/01/2024 9:02 AM EDT)Anatomical Region LateralityModalityVascularBilateralUltrasoundSpecimen (Source)Anatomical Location / LateralityCollection Method / VolumeCollection TimeReceived Time 12/01/2024 9:19 AM EDT Narrative 12/02/2024 11:45 PM EDT Right: Plaque with no significant ICA spectral Doppler or color flow disturbances; ICA 132/25 cm/sec. Antegrade vertebral artery flow. Left: Plaque with no significant ICA spectral Doppler or color flow disturbances; ICA 95/15 cm/sec.Antegrade vertebral artery flow. Conclusions: BILATERAL: Plaque without significant stenosis (<50%) of the internal carotid artery. ??Antegrade vertebral artery flow. Procedure Note Floresita Osman, DO - 12/02/2024 Right: Plaque with no significant ICA spectral Doppler or color flow disturbances; ICA 132/25 cm/sec. Antegrade vertebral artery flow. Left: Plaque with no significant ICA spectral Doppler or color flowdisturbances; ICA 95/15 cm/sec. Antegrade vertebral artery flow. Conclusions: BILATERAL: Plaque without significant stenosis (<50%) of the internal carotid artery. Antegrade vertebral artery flow. Authorizing ProviderResult TypeResult StatusHeather L Linda SILO TENDER-CNPCV VASCULAR ORDERABLESFinal Result from Last 3 [place] [address] Care Teams Team MemberRelationshipSpecialtyStart DateEnd Art Berg MD [facility]07/31/17
--- OUTSIDE RECORDS SUMMARY | 2025-02-11 07:10 | XMS_ITS | Clinical Summary ---
Author Organization [facility] Address [address], [address] [place] [address] Care Team Providers Care Sponge Press Operator Name Role Phone Art Berg MD Primary Care Provider [phone] Allergies Active AllergyReactionsCriticalityNoted DateCommentsAdhesive CevnHxh7401/14/2017 Skin breakdown Medications MedicationSigDispense QuantityRefillsLast FilledStart DateEnd DateStatus glimepiride (AMARYL) 2 MG tablet Take 2 mg by mouth every morning (before breakfast)Active lisinopril (PRINIVIL;ZESTRIL) 20 MG tablet Take 20 mg by mouth dailyActive levothyroxine (SYNTHROID) 50 MCG tablet Take 50 mcg by mouth every morningActive Multiple Vitamins-Minerals (THERAPEUTIC MULTIVITAMIN-MINERALS) tablet Take 1 tablet by mouth dailyActive GLUCOSAMINE CHONDROITIN COMPLX PO Take 1 tablet by mouth 2 times dailyActive Cinnamon 500 MG CAPS Take 1 capsule by mouth dailyActive Coenzyme Q10 (CO Q 10) 100 MG CAPS Take 1 capsule by mouth dailyActive vitamin E 1000 units capsule Take 1,000 Units by mouth dailyActive Lutein 20 MG TABS Take 20 mg by mouth dailyActive Bristow 3 1200 MG CAPS Take 1 capsule by mouth dailyActive LECITHIN PO Take 400 mg by mouth dailyActive Cholecalciferol (VITAMIN D3) 1000 units CAPS Take 1 capsule by mouth dailyActive Saw Kenton, Serenoa repens, (SAW PALMETTO PO) Take 900 mg by mouth dailyActive Hypromellose (ARTIFICIAL TEARS OP) Place 1 drop into both eyes as neededActive Social History Tobacco UseTypesPacks/DayYears UsedDateSmoking Tobacco: FormerCigarettesQuit: 1956Smokeless Tobacco: NeverAlcohol UseStandard Drinks/WeekCommentsNo0 (1 standard drink = 0.6 oz pure alcohol)Sex and Gender InformationValueDate RecordedSex Assigned at BirthNot on fileLegal UmhBjwl0801/01/2017 12:37 PM EDT Gender IdentityNot on fileSexual OrientationNot on file Last Filed Vital Signs Vital SignReadingTime TakenCommentsBlood Nwryofit611/7401/15/2017 2:15 PM EDT Znyfr789201/15/2017 1:15 PM MIYSwmevtloner45.6 ??C (97.9 ??F)01/15/2017 2:15 PM EDTRespiratory Gdsa6672 1:15 PM EDTOxygen Fytszkybzv29%01/15/2017 2:15 PM EDTInhaled Oxygen Concentration--Jaosih63.2 kg (190 lb)01/15/2017 9:02 AM EDT Rxking048.7 cm (5' 8 )01/15/2017 9:02 AM EDTBody Mass Index28.8901/15/2017 9:02 AM EDT Plan of Treatment Not on file Medical Devices ImplantedTypeAreaManufacturerDevice IdentifierShelf Expiration DateModel / Serial / LotImpl Eye Provisc Ovd 0.55ml - [id number] Implanted:Qty: 1 on 01/15/2017 [facility] [employer]/[id number] / [id number] / [id number] [address] Care Teams Team MemberRelationshipSpecialtyStart DateEnd Date Art Berg MD [address] [place] [address] PCP - GeneralFamily Owdwgjtm53/4/17
--- OUTSIDE RECORDS SUMMARY | 2025-02-11 07:10 | XMS_ITS | Clinical Summary ---
Author Organization [facility] Address [address] [place] [address] Care Team Providers Care Paragliding Instructor Name Role Phone Unavailable Primary Care Provider Unavailabl e Social History Tobacco UseTypesPacks/DayYears UsedDateSmoking Tobacco: Never AssessedSex and Gender InformationValueDate RecordedSex Assigned at BirthNot on fileLegal Sex Male06/19/2022 7:17 PM EDTGender IdentityNot on fileSexual OrientationNot on file Last Filed Vital Signs Vital SignReadingTime TakenCommentsBlood Pressure--Pulse--Temperature-- Respiratory Rate--Oxygen Saturation--Inhaled Oxygen Concentration--Bosicy67.6 kg (191 lb)04/24/2022 12:00 PM KOTSqjdvb650.7 cm (5' 8 )04/24/2022 12:00 PM ESTBody Mass Index29.04004/24/2022 12:00 PM EST Plan of Treatment Not on file Insurance
--- OUTSIDE RECORDS SUMMARY | 2025-02-11 07:10 | XMS_ITS | Clinical Summary ---
Author Organization [facility] Address [address] [place] [address] Care Team Providers Care Telegraph Repeater Installer Name Role Phone Art Berg MD Primary Care Provider [phone] Allergies Active AllergyReactionsCriticalityNoted LzlfJdzgusboPjdlfaclKly63/10/2017 Skin breakdown Medications MedicationSigDispense QuantityRefillsLast FilledStart DateEnd DateStatus amLODIPine (Norvasc) 10 mg tablet amlodipine 10 mg tablet TAKE 1 TABLET BY MOUTH EVERY DAYActive cholecalciferol (Vitamin D-3) 25 MCG (1000 UT) capsule 1 capsule in the morning.Active levothyroxine (Synthroid, Levoxyl) 50 mcg tablet Take 50 mcg by mouth in the morning.Active oxybutynin (Ditropan) 5 mg tablet oxybutynin chloride 5 mg tablet TAKE 1 TABLET BY MOUTH DAILY10/17/2021ctive tamsulosin (Flomax) 0.4 mg 24 hr capsule tamsulosin 0.4 mg capsule TAKE 1 CAPSULE BY MOUTH EVERY DAY11/27/2021ctive tiZANidine (Zanaflex) 4 mg tablet tizanidine 4 mg tablet TAKE 1 TABLET BY MOUTH AT NOQFMRA6511/27/2021ctive liothyronine (Cytomel) 5 mcg tablet Take 10 mcg by mouth in the morning.03/07/2022ctive potassium chloride CR (Klor-Con) 10 mEq ER tablet Take 10 mEq by mouth in the morning and at bedtime.08/22/2021ctive pantoprazole (ProtoNix) 40 mg EC tablet Take 40 mg by mouth before breakfast.07/02/2022ctive sucralfate (Carafate) 1 gram tablet TAKE 1 TABLET BY MOUTH ON AN EMPTY STOMACH BEFORE MEALS and BEFORE bedtime 12/06/2022ctive atorvastatin (Lipitor) 40 mg tablet Take 40 mg by mouth in the morning.Active clopidogrel (Plavix) 75 mg tablet Take 75 mg by mouth in the morning.Active diclofenac (Voltaren) 75 mg EC tablet 75 mg every 12 (twelve) hours.12/22/2023ctive hydrALAZINE (Apresoline) 100 mg tablet Indications:Essential hypertensionTake 1 tablet (100 mg) by mouth two times daily. 180 tablet ctive blood pressure monitor kit Indications:Benign hypertensive heart disease without congestive heart failure1 kit 2 times daily. 1 kit 04/30/2024tive NIFEdipine XL (Procardia XL) 60 mg 24 hr tablet Indications:Essential hypertensionTake 1 tablet (60 mg) by mouth in the morning. Do not crush, chew, or split. STOP AMLODIPINE 90 tablet ctive gabapentin (Neurontin) 100 mg capsule Take 100 mg by mouth two times daily.5Active ferrous sulfate 325 (65 Fe) MG tablet Take 325 mg by mouth with breakfast.10/14/2024tive vikldixc-jdu-fbacmpd fumarate 9 mg iron/15 mL liquid Take 500 mg by mouth in the morning.Active chlorthalidone (Hygroton) 25 mg tablet Indications:Benign hypertensive heart disease without congestive heart failure, Benign renovascular hypertensionTake 1 tablet (25 mg) by mouth in the morning. 30 tablet ctive Active Problems ProblemNoted DateDiagnosed DateAbnormal laboratory test xtlxln4701/05/2025quired mjyknuzqkqlyne98/01/2025dhesive capsulitis of left powdsqlh32/01/2025nkle edema01/05/2025nkle pain01/05/2025alcaneal spur01/05/2025ontrolled type 2 diabetes mellitus with diabetic qgvopanrjp30/01/2025orn of toe01/05/2025 COVID-1912305Guenm53/01/2025First degree atrioventricular block01/05/2025 Iricftzovxzjipk34/01/2025Noninfectious foeosdfrvxtfkab33/01/2025Gastroesophageal reflux fsbwfar6901/05/2025Hand pain01/05/2025Hearing loss01/05/2025 Sqnbzruewipwmpdimzpx76/01/2025Iron deficiency vvlnap5701/05/2025Irritable bowel evmuktvy88/01/9637Gtsgzmtbftug35/01/2025Low back pain01/05/2025Occlusion of carotid xfhpal5201/05/2025Onychomycosis due to bdawqaqyuilt29/01/2025Palpitations 01/05/2025Peripheral wfhqapeslt48/01/2025Premature atrial vgcopnxzcwzj10/01/2025 Mgpcvvfobkp03/01/2025Impingement syndrome, /01/2025Soft tissue lesion of shoulder qqgwdu1501/05/2025Transient ischemic taxfyu8601/05/2025Umbilical hernia 01/05/20251620Wbrxpkut47/01/2025Weight lamxipdme10/01/2025Primary localized osteoarthrosis of ankle and foot07/13/2024ilateral carotid artery stenosis without cerebral bibgkveggz37/08/0111Bnqgunxv62enign prostatic hyperplasia with urinary djhjzoetatl75/20/2022Type 2 diabetes mellitus 03/26/2022Incomplete emptying of tsdslgf5803/26/2022verweight with body mass index (BMI) 25.0-29.9105/27/2021etention of urine03/26/20225078Obqrlitpqpq84/28/2018 Carpal tunnel qyzkgzzn59/20/3122Rcrvwdtlunuz48/20/2017Temporomandibular joint jvfigcar43/20/2017Thyroid algwngu9401/24/2017Cerebrovascular /20/2017 12/13/2022 Encounters DateTypeDepartmentCare FqkpGltgmeamxyj50/01/2025 9:40 AM EDTOffice Visit [facility] [address] [place] [facility] [place] [address] Jagdish Chow MD Renal function impairment (Primary Dx); Benign hypertensive heart disease without congestive heart failure; Bradycardia; Benign renovascular fsknjveaavan00/01/2025Telephone [facility] [address] [place] [facility] [place] [address] Gabi Bates MA 01/05/2025Orders Only [facility] [address] [place] [facility] [place] [address] Gabi Bates MA Benign hypertensive heart disease without congestive heart failure (Primary Dx) from Last 3 Months Family History Medical HistoryRelationNameCommentsDiabetesFatherHypertensionFatherNo Known ProblemsMotherRelationNameStatusCommentsBrotherDeceasedFatherDeceasedMother DeceasedSisterDeceased Social History Tobacco UseTypesPacks/DayYears UsedDateSmoking Tobacco: OceuoiKrzrvwiipj0325 - 1957Smokeless Tobacco: Never Tobacco Cessation:Counseling Given: Not Answered Alcohol UseStandard Drinks/WeekCommentsYes7 (1 standard drink = 0.6 oz pure alcohol)DC Safety & EnvironmentAnswerDate RecordedFear of Current or Ex-Partner Not on file05/29/2023Emotionally AbusedNot on file05/29/2023hysically AbusedNot on file05/29/2023Sexually AbusedNot on file05/29/2023hysically or Sexually AbusedNot on file05/29/2023Sex and Gender InformationValueDate RecordedSex Assigned at OthtcUaey27/24/2025 1:34 PM EDTLegal SjySljo1810/04/2021 12:00 AM EDT Gender WksjbbxiRbzv78/24/2025 1:34 PM EDTSexual OrientationHeterosexual or Rvdstsnc82/24/2025 1:34 PM EDT Last Filed Vital Signs Vital SignReadingTime TakenCommentsBlood Npvujipq883/5410 9:47 AM EDT Nonte7515 9:47 AM JFCWlalsclzluf41.7 ??C (98 ??F)10/11/2021 11:19 AM EDT Respiratory Tkpj7385 11:08 AM EDTOxygen Fjpqhsktlv62%01/05/2025 9:47 AM EDTInhaled Oxygen Concentration--Zfaryo49.3 kg (166 lb)01/05/2025 9:47 AM EDT Kuogsr728.7 cm (5' 8 )01/05/2025 9:47 AM EDTBody Mass Index25.2410 9:47 AM EDT Plan of Treatment DateTypeDepartmentCare Team (Latest Contact Info)Ubzinujwlkt53/10/2025 9:40 AM ESTOffice [facility] [address] [place] [address] Jagdish Chow MD [address] [place] [address] Health MaintenanceDue DateLast DoneCommentsDiabetes: Hemoglobin A1C1935 Medicare Annual Wellness (AWV)1935Diabetes: Retinopathy Screening 1945Depression Nquuorxek09/24/1948Diabetes: Urine Protein Screening 1954dult Wcpmgmr3105/31/1957Fall Risk Pbzwusawg49/24/2001Pneumococcal Vaccine: 50+ Years (2 of 2 - PPSV23, PCV20, or PCV21)/, 02/05/2017COVID-19 Vaccine ( season)/11/2023, 01/27/2023, 09/27/2021, Additional history existsInfluenza Vaccine (#1)/11/2023, 01/27/2023, 06/02/2022, Additional history existsZoster VaccinesCompleted 05/02/2023, 02/24/2023HIB VaccinesAged OutNo longer eligible based on patient's age to complete this topicHPV VaccinesAged OutNo longer eligible based on patient's age to complete this topicIPV VaccinesAged OutNo longer eligible based on patient's age to complete this topicMeningococcal B VaccineAged OutNo longer eligible based on patient's age to complete this topicMeningococcal VaccineAged OutNo longer eligible based on patient's age to complete this topicRotavirus VaccinesAged OutNo longer eligible based on patient's age to complete [place] [address] Care Teams Team MemberRelationshipSpecialtyStart DateEnd Art Berg MD [address] [address] PCP - Jpxnonq10/20/22
--- OUTSIDE RECORDS SUMMARY | 2025-02-11 07:10 | XMS_ITS | Patient Health Record ---
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 Name Role Phone Jose Zhang Primary Care Provider Allergies No Known Allergies Results Component Value Reference Range Notes COVID-19, Flu A+B IH (Not ye t reviewed by provider) Interpretation: Performing Lab: Notes/Report: COVID neg FLU AnegFLU BnegControlpresentErythrocyte Sedimentation Rate Reviewed date:07/22/2024 09:06:48 PM Interpretation: Performing Lab: Notes/Report: [facility] ,Erythrocyte Sedimentation Rate8<=20 mm/hrPerforming Lab:see noteML - [facility] LBCBC no Diff (Hemogram) Reviewed date:07/26/2024 02:06:54 PM Interpretation: Performing Lab: Notes/Report: [facility] ,White Blood Count10.54.0-11.0 10 3/uLRed Blood Count4.214.70-6.10 10 6/uL Wikiafmwli50.414.0-18.0 g/nLBitnzpddrj03.042.0-54.0 %Mean Corpuscular Ciszsx34.6 80.0-94.0 fLMean Corpuscular Rqdcpvwwmr06.525.9-34.0 pgMean Corpuscular HGB Conc 31.829.9-35.2 g/dLRed Cell Distribution Width16.011.0-15.0 %Platelet Dmile857 150-450 10 3/uLMean Platelet Cfceed40.49.5-13.5 fLPerforming Lab:see noteML - [facility] LBFERRITIN Reviewed date:01/13/2025 12:44:39 PM Interpretation: Performing Lab: Notes/Report: [facility] ,Afmpbbst01.026.0-388.0 ng/mLPerforming Lab:see note - [facility] LBVITAMIN D 25 [place] Reviewed date:01/13/2025 12:44:39 PM Interpretation: Performing Lab: Notes/Report: [facility] ,Vitamin D80.0 <20 ng/mL Vit D deficient 20-<30 ng/mL Vit D insufficient 30-100 ng/mL Vit D sufficient >100 ng/mL Potential Toxicity Performing Lab:see note - [facility] LBVitamin B12 Reviewed date:01/13/2025 12:44:39 PM Interpretation: Performing Lab: Notes/Report: [facility] ,Vitamin [id number] pg/mL Performed at: [address] [id number] Binder Cutter: Zenon Rosa PhD, Phone: [employer] Performing Lab:see note - [facility] LBPTH, Intact Reviewed date:01/13/2025 12:44:38 PM Interpretation: Performing Lab: Notes/Report: [facility] ,PTH, Bjtdqm0615-62 pg/mL Performed at: [address] [id number] Binder Cutter: Zenon Rosa PhD, Phone: [employer] Performing Lab:see [facility] LBCBC no Diff (Hemogram) Reviewed date:01/12/2025 12:26:46 PM Interpretation: Performing Lab: Notes/Report: [facility] ,White Blood Count11.44.0-11.0 10 3/uLRed Blood Count3.854.70-6.10 10 6/uL Rayaudewzb18.914.0-18.0 g/fOJzljrezgli13.442.0-54.0 %Mean Corpuscular Pdoaka96.5 80.0-94.0 fLMean Corpuscular Ngcztspghh85.925.9-34.0 pgMean Corpuscular HGB Conc 32.729.9-35.2 g/dLRed Cell Distribution Width15.411.0-15.0 %Platelet Djclk999 150-450 10 3/uLMean Platelet Mpaxww76.39.5-13.5 fLPerforming Lab:see note - [facility] LBURINE T PROTEIN CREAT RATIO Reviewed date:01/12/2025 12:26:46 PM Interpretation: Performing Lab: Notes/Report: [facility] ,Total Protein Urine Random8.8<=11.9 mg/dLCreatinine Urine Random<13.0020.00- 300.00 mg/dLPerforming Lab:see note - [facility] LBURIC ACID SERUM Reviewed date:01/12/2025 12:26:46 PM Interpretation: Performing Lab: Notes/Report: [facility] ,Uric Acid6.03.5-7.2 mg/dLPerforming Lab:see note - [facility] LBUA RANDOM Reviewed date:01/12/2025 12:26:46 PM Interpretation: Performing Lab: Notes/Report: [facility] ,Color UrineLT YELLOWYELLOWClarity UrineCLEARCLEARSpecific [place] Urine1.010 1.005-1.025pH Urine7.05.0-9.0Protein UrineNEGATIVENEG/TRACE mg/dLGlucose Urine UANEGATIVENEGATIVE mg/dLBilirubin UrineNEGATIVENEGATIVEKetones UrineNEGATIVE NEGATIVE mg/dLBlood UrineNEGATIVENEGATIVENitrite UrineNEGATIVENEGATIVE Urobilinogen Urine0.20.2-1.0 EU/dLLeukocyte Esterase UrineNEGATIVENEGATIVE Per[facility] LBRENAL FUNCTION PANEL Reviewed date:01/12/2025 12:26:46 PM Interpretation: Performing Lab: Notes/Report: [facility] ,Jbvtna843105-562 mmol/LPotassium4.43.5-5.1 mmol/HRsngrcar73431-173 mmol/LCarbon Lkwmfve28.421.0-32.0 mmol/LAnion Gap16.3Wlypkkj06675-620 mg/dLBlood Urea Hxdbmslg66.07.0-18.0 mg/dLCreatinine1.510.70-1.30 mg/dLEstimated GFR ( Iigsbgq49>=60 mL/min/1.73m 2Estimated GFR (Non- Ame44>=60 mL/min/1.73m 2 BUN Creatinine Ratio21.7Qsgjvmx2.18.5-10.1 mg/dLPhosphorus3.52.6-4.7 mg/dL Albumin Level4.13.4-5.0 g/dLPerforming Lab:see note - [facility] LB MAGNESIUM Reviewed date:01/12/2025 12:26:46 PM Interpretation: Performing Lab: Notes/Report: [facility] ,Magnesium2.21.8-2.4 mg/dLPerforming Lab:see note - [facility] LB LAB TESTING Reviewed date:01/14/2025 08:45:54 AM Interpretation: Performing Lab: Notes/Report: [id number] FOLATE [facility] ,Miscellaneous TestCOMMENT. Test Ordered: 101521 Folate (Folic Acid), Serum Folate (Folic Acid), Serum 15.8 ng/mL Reference Range: >3.0 A serum folate concentration of less than 3.1 ng/mL is considered to represent clinical deficiency. Performed at: - [facility] [address] [id number] Binder Cutter: Zenon Rosa PhD, Phone: [phone] Performing Lab:see note - [facility] LBIRON AND TIBC Reviewed date:01/12/2025 12:26:46 PM Interpretation: Performing Lab: Notes/Report: [facility] ,Jkvm219.065.0-175.0 ug/dLTotal Iron Binding Woxmjlax932.0250.0-450.0 ug/dL Percent Iron Geaxznyxjc45.3Performing Lab:see note - [facility] LB PROF CHEM 8 (BAS METB) Reviewed date:01/05/2025 05:53:12 PM Interpretation: Performing Lab: Notes/Report: [facility] ,Dxfsvd923799-408 mmol/LPotassium4.93.5-5.1 mmol/KGpdzvqwm19506-619 mmol/LCarbon Tgguhlr96.021.0-32.0 mmol/LAnion Gap14.7Dlwmoyu34190-850 mg/dLBlood Urea Dxqfjbnh34.07.0-18.0 mg/dLCreatinine1.310.70-1.30 mg/dLEstimated GFR ( Zahida>60>=60 mL/min/1.73m 2Estimated GFR (Non- Ame52>=60 mL/min/1.73m 2 BUN Creatinine Ratio20.1Nkcsmau2.08.5-10.1 mg/dLPerforming Lab:see note - [facility] LBMICROALB CREAT RATIO RANDOM Reviewed date:01/05/2025 05:53:12 PM Interpretation: Performing Lab: Notes/Report: [facility] ,Microalbumin Urine Random1.6<=30.0 mg/dLCreatinine Urine Itxluj28.2120.00- 300.00 mg/dLMicroalbum Creatinine Ratio Ur112.50.0-29.9 mg/g NO MICROALBUMINURIA 0-29 MG/G CLINICAL MICROALBUMINURIA 30-300 MG/G MACROALBUMINURIA >300 MG/G Performing Lab:see note - [facility] LBBNP Reviewed date:01/05/2025 05:53:12 PM Interpretation: Performing Lab: Notes/Report: [facility] ,NT Pro B Type Natriuretic Rkck800.0<=1800.0 pg/mLPerforming Lab:see note - [facility] LBXR pelvis 1-2V Reviewed date:11/02/2024 02:40:10 PM Interpretation: Performing Lab: Notes/Report: Source Facility: [place] [address] XRay Report Signed Patient: LILIANA RIVAS MR#: [id number] : 1935 Acct:[id number] Age/Sex: 89 / M ADM Date: 11/02/24 Loc: RAD Attending Dr: Erin Zhang M.D. Ordering Physician: Erin Zhang M.D. Date of Service: 11/02/24 Procedure(s): XR pelvis 1-2V Accession Number(s): [id number] cc: Erin Zhang M.D. [place] [id number] Patient Name: LILIANA RIVAS MRN: [facility]:[id number] date: 1935 Sex: M Assigned Patient Location: [facility] Current Patient Location: [facility] Accession/Order Number: [id number] Exam Date: 11/02/2024 09:28 Report Date: 11/02/2024 09:36 At the request of: ERIN ZHANG MD Procedure: XR pelvis 1-2V CLINICAL HISTORY: Tailbone pain. History of fall in the shower couple weeks ago. SACRUM AND COCCYX -3 views COMPARISON: CT 07/19/2022 Lateral as well as AP views in upward and downward projection were obtained. An acute, mildly displaced fracture is visualized near the sacrococcygeal junction with slight displacement. A second fracture along the ventral cortex just inferior to it is also possible. Mild degenerative changes are visualized at the lower imaged lumbar spine. The SI joints and sacral foramen appear intact. No soft tissue abnormalities are seen. XR/XR pelvis 1-2V IMPRESSION: LOWER SACRAL FRACTURE(S) AP PELVIS: COMPARISON: None No acute fracture, dislocation or bony destruction is seen. The hip joint spaces are symmetric. There is no significant hypertrophy. The SI joints are intact and show mild sclerosis. Degenerative changes are visualized at the lower imaged lumbar spine with disc space narrowing and endplate spurring. There are no soft tissue abnormalities. IMPRESSION: NO ACUTE BONY FINDINGS. Impression dictated by: India Bowman M.D. 11/02/2024 9:36 AM Dictation Location: [place] [address] Electronically authenticated by: [id number] Y Date: 11/02/2024 09:36 Dictated By: India Bowman M.D. Signed By: 11/02/2438 DD/ TD/TT: Application Programmer Analyst:TSH Reviewed date:10/13/2024 06:53:56 PM Interpretation: Performing Lab: Notes/Report: [facility] ,Thyroid Stimulating Hormone1.0110.358-3.740 uIU/mLPerforming Lab:see noteML - [facility] LBT4 Reviewed date:10/13/2024 06:53:56 PM Interpretation: Performing Lab: Notes/Report: [facility] ,T4 Thyroxine5.004.50-12.10 ug/dLPerforming Lab:see noteML - [facility] LBPSA SCREENING Reviewed date:10/13/2024 06:53:56 PM Interpretation: Performing Lab: Notes/Report: [facility] ,Prostate Specific Antigen Scrn0.72<=4.00 ng/mLPerforming Lab:see noteML - [facility] LBPROF 14(COMP METB) Reviewed date:10/13/2024 06:53:56 PM Interpretation: Performing Lab: Notes/Report: [facility] ,Yusawq425692-230 mmol/LPotassium5.33.5-5.1 mmol/QHpabwwbz65148-317 mmol/LCarbon Joddfva17.421.0-32.0 mmol/LAnion Gap13.2Pvobvsk34392-799 mg/dLBlood Urea Pdghyecj79.07.0-18.0 mg/dLCreatinine1.410.70-1.30 mg/dLEstimated GFR ( Lkjhxsn15>=60 mL/min/1.73m 2Estimated GFR (Non- Ame47>=60 mL/min/1.73m 2 BUN Creatinine Ratio17.4Ulghvil5.18.5-10.1 mg/dLBilirubin Total0.40.2-1.0 mg/dL Aspartate Amino Tqtjmiurwzw8317-89 U/LAlanine Cqxxetsxwohfsuzh0877-86 U/L Alkaline Ikhisxzepnq3181-643 U/LTotal Protein6.26.4-8.2 g/dLAlbumin Level3.63.4- 5.0 g/dLGlobulin2.6Albumin Globulin Ratio1.4Performing Lab:see noteML - [facility] LBLIPID PROFILE Reviewed date:10/13/2024 06:53:56 PM Interpretation: Performing Lab: Notes/Report: [facility] ,Whndkkqmxxhqz72<=150 mg/uKPeqrjazqsjp28<=200 mg/dLHDL Ohcbkttbgvo8386-15 mg/dL > or =60 mg/dl - LOW CARDIOVASCULAR RISK <40 mg/dl - HIGH CARDIOVASCULAR RISK LDL Cholesterol Lifgnqaczq45.2 <100 mg/dl OPTIMAL 100-129 mg/dl NEAR OR ABOVE OPTIMAL 130-159 mg/dl BORDERLINE HIGH 160-189 mg/dl HIGH >190 mg/dl VERY HIGH VLDL OJEIZNPKIPO32.8Chol HDL Ratio1.7 3.3 - 4.4 LOW RISK 4.4 - 7.1 AVERAGE RISK 7.1 - 11.0 MODERATE RISK >11.0 HIGH RISK Performing Lab:see note - [facility] LBGLYCOHEMOGLOBIN A1C Reviewed date:10/13/2024 06:53:56 PM Interpretation: Performing Lab: Notes/Report: [facility] ,Glycohemoglobin A1C6.04.5-6.2 % ADA RECOMMENDED LIMIT 4.0 - 6.0 ADA THERAPEUTIC TARGET < 7.0 ACTION SUGGESTED > 7.0 Estimated Average Pcnmpms132Mkwnisxyfs Lab:see note - [facility] LB FREE T3 Reviewed date:10/13/2024 06:53:56 PM Interpretation: Performing Lab: Notes/Report: [facility] ,Free T32.052.18-3.98 pg/mLPerforming Lab:see note - [facility] LB CBC AUTO DIFF Reviewed date:10/13/2024 06:53:56 PM Interpretation: Performing Lab: Notes/Report: [facility] ,White Blood Count10.64.0-11.0 10 3/uLRed Blood Count3.694.70-6.10 10 6/uL Uehbzscvsw08.014.0-18.0 g/cMJlukaudjgj39.042.0-54.0 %Mean Corpuscular Ttejap81.4 80.0-94.0 fLMean Corpuscular Rkevpnwguf56.825.9-34.0 pgMean Corpuscular HGB Conc 33.329.9-35.2 g/dLRed Cell Distribution Width14.711.0-15.0 %Platelet Nxqks206 150-450 10 3/uLMean Platelet Qlyuid75.39.5-13.5 fLNeutrophils Percent Auto54.3 43.0-75.0 %Lymphocytes Percent Auto32.920.5-60.0 %Monocytes Percent Auto8.01.7- 12.0 %Eosinophils Percent Auto3.80.9-7.0 %Basophils Percent Auto0.70.2-2.0 % Immature Granulocytes Pct Auto0.30.0-0.5 %Neutrophils Absolute Auto5.71.4-6.5 10 3/uLLymphocytes Absolute Auto3.51.2-3.8 10 3/uLMonocytes Absolute Auto0.90.3-0.8 10 3/uLEosinophils Absolute Auto0.40.0-0.7 10 3/uLBasophils Absolute Auto0.10.0- 0.1 10 3/uLImmature Granulocytes Abs Auto0.030.00-0.03 10 3/uLPerforming Lab:see noteML - [facility] LBUS renal BI Reviewed date:07/29/2024 07:03:32 PM Interpretation: Performing Lab: Notes/Report: Source Facility: [place] [address] Ultrasound Report Signed Patient: LILIANA RIVAS MR#: [id number] : 1935 Acct:[id number] Age/Sex: 89 / M ADM Date: 07/29/24 Loc: US Attending Dr: JOSE LUNDBERG Ordering Physician: JOSE LUNDBERG Date of Service: 07/29/24 Procedure(s): US renal BI Accession Number(s): [id number] cc: JOSE LUNDBERG ; Erin Zhang M.D. [place] [address] Patient Name: LILIANA RIVAS MRN: [id number] date: 1935 Sex: M Assigned Patient Location: Current Patient Location: US Accession/Order Number: [id number] Exam Date: 07/29/2024 13:09 Report Date: 07/29/2024 [...] No acute findings. Impression dictated by: Jeff Florse Jr., D.OSrinivasa07/29/2024 1:09 PM Dictation Location: [place] [address] Electronically authenticated by: [id number] Y Date: 07/29/2024 13:09 Dictated By: Jeff Flores M.D. Signed By: 07/29/24 1312 DD/ 1309 TD/TT: Application Programmer Analyst:PTH, Intact Reviewed date:07/27/2024 02:24:36 PM Interpretation: Performing Lab: Notes/Report: [facility] ,PTH, Fygudn9029-50 pg/mL Performed at: [facility] [id number] Binder Cutter: Zenon Rosa PhD, Phone: [phone] Performing Lab:see note - [facility] LBVITAMIN D 25 [place] Reviewed date:07/26/2024 02:06:54 PM Interpretation: Performing Lab: Notes/Report: [facility] ,Vitamin D76.5 <20 ng/mL Vit D deficient 20-<30 ng/mL Vit D insufficient 30-100 ng/mL Vit D sufficient >100 ng/mL Potential Toxicity Performing Lab:see noteML - [facility] LBURINE T PROTEIN CREAT RATIO Reviewed date:07/26/2024 02:06:54 PM Interpretation: Performing Lab: Notes/Report: [facility] ,Total Protein Urine Random<6.0<=11.9 mg/dLPerforming Lab:see noteML - [facility] LBURIC ACID SERUM Reviewed date:07/26/2024 02:06:54 PM Interpretation: Performing Lab: Notes/Report: [facility] ,Uric Acid6.43.5-7.2 mg/dLPerforming Lab:see noteML - [facility] LBUA RANDOM Reviewed date:07/26/2024 02:06:54 PM Interpretation: Performing Lab: Notes/Report: [facility] ,Color UrineLT. YELLOWYELLOWClarity UrineCLEARCLEARSpecific [place] Urine<=1.005 1.005-1.025pH Urine5.55.0-9.0Protein UrineNEGATIVENEG/TRACE mg/dLGlucose Urine UANEGATIVENEGATIVE mg/dLBilirubin UrineNEGATIVENEGATIVEKetones UrineNEGATIVE NEGATIVE mg/dLBlood UrineNEGATIVENEGATIVENitrite UrineNEGATIVENEGATIVE Urobilinogen Urine0.20.2-1.0 EU/dLLeukocyte Esterase UrineNEGATIVENEGATIVE Performing Lab:see note - [facility] LBRENAL FUNCTION PANEL Reviewed date:07/26/2024 02:06:54 PM Interpretation: Performing Lab: Notes/Report: [facility] ,Jdmjgw510535-706 mmol/LPotassium4.03.5-5.1 mmol/GBxkyfhyk75774-274 mmol/LCarbon Xeycijy20.021.0-32.0 mmol/LAnion Gap15.8Vimfzpg40713-418 mg/dLBlood Urea Fwerffmq41.07.0-18.0 mg/dLCreatinine1.380.70-1.30 mg/dLEstimated GFR ( Pngmvhz21>=60 mL/min/1.73m 2Estimated GFR (Non- Ame49>=60 mL/min/1.73m 2 BUN Creatinine Ratio21.1Dwdqoyl4.18.5-10.1 mg/dLPhosphorus3.52.6-4.7 mg/dL Albumin Level3.73.4-5.0 g/dLPerforming Lab:see note - [facility] LB MICROALB CREAT RATIO RANDOM Reviewed date:07/26/2024 02:06:54 PM Interpretation: Performing Lab: Notes/Report: [facility] ,Microalbumin Urine Random<1.3<=30.0 mg/dLCreatinine Urine Random<13.0020.00- 300.00 mg/dLPerforming Lab:see note - [facility] LBMAGNESIUM Reviewed date:07/26/2024 02:06:54 PM Interpretation: Performing Lab: Notes/Report: [facility] ,Magnesium2.11.8-2.4 mg/dLPerforming Lab:see note - [facility] LB CBC AUTO DIFF Reviewed date:07/22/2024 09:06:48 PM Interpretation: Performing Lab: Notes/Report: [facility] ,White Blood Count8.34.0-11.0 10 3/uLRed Blood Count3.924.70-6.10 10 6/uL Azgnaksioi62.614.0-18.0 g/eUIxteioigxp10.242.0-54.0 %Mean Corpuscular Ggdffj33.3 80.0-94.0 fLMean Corpuscular Lbekhhhpks13.625.9-34.0 pgMean Corpuscular HGB Conc 32.029.9-35.2 g/dLRed Cell Distribution Width15.911.0-15.0 %Platelet Uzimv041 150-450 10 3/uLMean Platelet Axsbqc35.89.5-13.5 fLNeutrophils Percent Auto49.6 43.0-75.0 %Lymphocytes Percent Auto35.920.5-60.0 %Monocytes Percent Auto11.01.7- 12.0 %Eosinophils Percent Auto2.80.9-7.0 %Basophils Percent Auto0.50.2-2.0 % Immature Granulocytes Pct Auto0.20.0-0.5 %Neutrophils Absolute Auto4.11.4-6.5 10 3/uLLymphocytes Absolute Auto3.01.2-3.8 10 3/uLMonocytes Absolute Auto0.90.3-0.8 10 3/uLEosinophils Absolute Auto0.20.0-0.7 10 3/uLBasophils Absolute Auto0.00.0- 0.1 10 3/uLImmature Granulocytes Abs Auto0.020.00-0.03 10 3/uLPerforming Lab:see noteML - [facility] LBXR ankle RT min 3V Reviewed date:07/05/2024 09:32:21 PM Interpretation: Performing Lab: Notes/Report: Source Facility: [facility] [place] [address] [place] [address] XRay Report Signed Patient: LILIANA RIVAS MR#: [id number] : 1935 Acct:[id number] Age/Sex: 89 / M ADM Date: 07/05/24 Loc: RAD Attending Dr: Erin Zhang M.D. Ordering Physician: Erin Zhang M.D. Date of Service: 07/05/24 Procedure(s): XR ankle RT min 3V Accession Number(s): [id number] cc: Erin Zhang M.D. [place] [address] Patient Name: LILIANA RIVAS MRN: [facility]:[id number] date: 1935 Sex: M Assigned Patient Location: [facility] Current Patient Location: [facility] Accession/Order Number: [id number] Exam Date: 07/05/2024 18:22 Report Date: 07/05/2024 18:23 At the request of: ERIN ZHANG MD Procedure: XR ankle RT min 3V [...] Abdirahman Kennedy M.D.07/05/2024 6:23 PM Dictation Location: [place] [address] Electronically authenticated by: [id number] Y Date: 07/05/2024 18:23 Dictated By: Abdirahman Kennedy D.O. Signed By: 07/05/241824 DD/ 22 TD/TT: Application Programmer Analyst:PROF SABRINA Sebastian ([facility]) Reviewed date:05/08/2024 04:29:30 PM Interpretation: Performing Lab: Notes/Report: [facility] ,Bqsakh691755-697 mmol/LPotassium5.63.5-5.1 mmol/RQckhhdqw04152-311 mmol/LCarbon Einehzv16.421.0-32.0 mmol/LAnion Gap14.1Reinsis70843-024 mg/dLBlood Urea Titfopnq02.07.0-18.0 mg/dLCreatinine1.780.70-1.30 mg/dLEstimated GFR ( Tzhhrnd93>=60 mL/min/1.73m 2Estimated GFR (Non- Ame36>=60 mL/min/1.73m 2 BUN Creatinine Ratio20.7Ijezcuq1.98.5-10.1 mg/dLPerforming Lab:see noteML - [facility] LBPROF CHEM 8 (BAS METB) Reviewed date:05/03/2024 08:18:30 PM Interpretation: Performing Lab: Notes/Report: [facility] ,Ucaula093348-754 mmol/LPotassium5.63.5-5.1 mmol/NGepoblsb42327-272 mmol/LCarbon Skmgbqj77.621.0-32.0 mmol/LAnion Gap14.5Hpgfhpo27943-776 mg/dLBlood Urea Gtintnxt86.07.0-18.0 mg/dLCreatinine1.560.70-1.30 mg/dLEstimated GFR ( Nxyfoii46>=60 mL/min/1.73m 2Estimated GFR (Non- Ame42>=60 mL/min/1.73m 2 BUN Creatinine Ratio25.7Mhwjyfl9.78.5-10.1 mg/dLPerforming Lab:see noteML - [facility] LBURIC ACID SERUM Reviewed date:07/22/2024 09:06:48 PM Interpretation: Performing Lab: Notes/Report: [facility] ,Uric Acid6.33.5-7.2 mg/dLPerforming Lab:see noteML - [facility] LB CRP Reviewed date:07/22/2024 09:06:48 PM Interpretation: Performing Lab: Notes/Report: [facility] ,C Reactive Protein<0.50<=0.50 mg/dLPerforming Lab:see noteML - [facility] LBXR sacrum coccyx min 2V Reviewed date:11/02/2024 02:40:10 PM Interpretation: Performing Lab: Notes/Report: Source Facility: [facility] [place] [address] [place] [address] XRay Report Signed Patient: LILIANA RIVAS MR#: [id number] : 1935 Acct:[id number] Age/Sex: 89 / M ADM Date: 11/02/24 Loc: RAD Attending Dr: Erin Zhang M.D. Ordering Physician: Hoy,Erin M.D. Date of Service: 11/02/24 Procedure(s): XR sacrum coccyx min 2V Accession Number(s): [id number] cc: Erin Zhang M.D. [address] [address] Patient Name: LILIANA RIVAS MRN: [id number] date: 1935 Sex: M Assigned Patient Location: RAD Current Patient Location: RAD Accession/Order Number: [id number] Exam Date: 11/02/2024 09:28 Report Date: 11/02/2024 09:36 At the request of: ERIN ZHANG MD Procedure: XR pelvis 1-2V CLINICAL HISTORY: Tailbone pain. History of fall in the shower couple weeks ago. SACRUM AND COCCYX -3 views COMPARISON: CT 07/19/2022 Lateral as well as AP views in upward and downward projection were obtained. An acute, mildly displaced fracture is visualized near the sacrococcygeal junction with slight displacement. A second fracture along the ventral cortex just inferior to it is also possible. Mild degenerative changes are visualized at the lower imaged lumbar spine. The SI joints and sacral foramen appear intact. No soft tissue abnormalities are seen. XR/XR sacrum coccyx min 2V IMPRESSION: LOWER SACRAL FRACTURE(S) AP PELVIS: COMPARISON: None No acute fracture, dislocation or bony destruction is seen. The hip joint spaces are symmetric. There is no significant hypertrophy. The SI joints are intact and show mild sclerosis. Degenerative changes are visualized at the lower imaged lumbar spine with disc space narrowing and endplate spurring. There are no soft tissue abnormalities. IMPRESSION: NO ACUTE BONY FINDINGS. Impression dictated by: India Bowman M.D. 11/02/2024 9:36 AM Dictation Location: [place] [address] Electronically authenticated by: [id number] Y Date: 11/02/2024 09:36 Dictated By: India Bowman M.D. Signed By: 11/02/2438 DD/ 5 TD/TT: Application Programmer Analyst:PROF Mtz(COMP METB) Reviewed date:10/19/2024 08:45:16 PM Interpretation: Performing Lab: Notes/Report: [facility] ,Ixlncn141081-471 mmol/LPotassium5.73.5-5.1 mmol/CDdharprq37801-475 mmol/LCarbon Tjsdroy17.521.0-32.0 mmol/LAnion Gap15.4Llijabn05233-512 mg/dLBlood Urea Jsbfzsow09.07.0-18.0 mg/dLCreatinine1.580.70-1.30 mg/dLEstimated GFR ( Xmfgofc09>=60 mL/min/1.73m 2Estimated GFR (Non- Ame42>=60 mL/min/1.73m 2 BUN Creatinine Ratio23.8Ntgyzum5.28.5-10.1 mg/dLBilirubin Total0.40.2-1.0 mg/dL Aspartate Amino Ksedmtrexhg7397-11 U/LAlanine Ntoqnntzucwmwesn8729-85 U/L Alkaline Chphhieqksj1158-535 U/LTotal Protein6.66.4-8.2 g/dLAlbumin Level3.73.4- 5.0 g/dLGlobulin2.9Albumin Globulin Ratio1.3Performing Lab:see noteML - [facility] LBGLYCOHEMOGLOBIN A1C Reviewed date:04/14/2024 07:13:30 PM Interpretation: Performing Lab: Notes/Report: [facility] ,Glycohemoglobin A1C5.84.5-6.2 % ADA RECOMMENDED LIMIT 4.0 - 6.0 ADA THERAPEUTIC TARGET < 7.0 ACTION SUGGESTED > 7.0 Estimated Average Huhdmod777Rizswybkpt Lab:see noteML - [facility] LB Reason For Referral Diagnosis 1 Arthritis of ankle, right (M19.071) Referral Organization [facility] Referring Provider First Name Jose Referring Provider Last Name Ignaciootilia Referring Provider Speciality Family Med icine Referred Provider [facility], Physical Therap y Referred Provider Specialty Physical The rapist Referral Priority Routine Medications Medication SIG (Take, Route, Frequency, Duration) Notes Start Date End Date Status Levothyroxine Sodium 50 MCG 1 tablet in the morning on an empty stomach Orally Once a day; Duration: 90 days ActiveAmoxicillin-Pot Clavulanate 875-125 MG 1 tablet Orally every 12 hrs; Duration: 10 days Void after 02/19/2025 5ActivehydrALAZINE HCl 100 MG1 tablet with food Orally Twice a day; Duration: 30 daysActiveGabapentin 100 MG1 capsule Orally qhs; Duration: 30 days 5ActiveTrue Metrix Blood Glucose Test -use 1 strip via meter Daily; Duration: 90 days07/15/2022ctiveChlorthalidone 25 MG1 tablet in the morning with food Iffiyy6401/18/2025tiveSucralfate 1 GM1 tablet on an empty stomach Orally 4 times a day01/18/2025tiveBlood Glucose MeterActivePlavix 75 MG1 tablet Orally Once a day01/18/2025tiveFerrous Sulfate 325 (65 Fe) MG1 tablet Orally daily; Duration: 30 days10/14/2024tivetiZANidine HCl 4 MG1 tablet Orally at bedtime; Duration: 30 daysActiveDiclofenac Sodium 75 MG1 tablet as needed Orally Twice a day; Duration: 30 days4ActiveTamsulosin HCl 0.4 MG1 capsule Orally Once a day; Duration: 30 days11/04/2024tiveNIFEdipine ER 60 MG1 tablet on an empty stomach Orally Once a day; Duration: 30 day(s)05/04/2024 ActiveLiothyronine Sodium 5 mcgTAKE 2 TABLETS BY MOUTH DAILY; Duration: 90 days ActiveAtorvastatin Calcium 40 MG1 tablet Orally Once a day01/18/2025tive Pantoprazole Sodium 40 mgTAKE 1 TABLET BY MOUTH EVERY EVENING; Duration: 90 ActiveoxyBUTYnin Chloride 5 MG1 tablet Orally Once a day; Duration: 30 days Active Immunizations Vaccine Route Administration Date Status Comme nts Arexvy Unknown 02/10/2023 Administered [employer] Syringe Pre-Filled 30 mcg/0.3 aBZjxxgmy83/08/2024Administered Flu, -historic- Novel I6R6-52, preservative wrbaHuumaew27/27/2010dministered Flu, Fluad (86197) 65 yrs + High Dose Seasonal (3996-3722)Feqtdvi2502/03/2014 AdministeredFlu, Fluad (36432) 65 yrs + High Dose Seasonal ()Unknown 01/06/2015dministeredFlu, Fluad (35003) 65 yrs + High Dose Seasonal () Pdtxwiv1101/03/2016AdministeredFlu, Fluad (00547) 65 yrs + High Dose Seasonal (2915-3362)Yqsunqu6301/27/2017AdministeredFlu, Fluad (15840) 65 yrs + High Dose Seasonal (0023-5681)Mbqmlrs1301/28/2018AdministeredFlu, Fluad (63744) 65 yrs + High Dose Seasonal (6247-2073)Sffyrbn87/08/2024AdministeredFlu, Fluad (77023) 65 yrs and older, single-dose syringe ()Tmtmicj1701/14/2020AdministeredFlu, Fluad (28692) 65 yrs+, single-dose syringe ()Xlsczmr9501/21/2022 AdministeredFlu, Fluad (51695) 65 yrs+, single-dose syringe ()Unknown 01/27/2023dministeredFlu, Fluzone (99710) 6 mos+, single-dose syringe/vial ()Kkjgvsl3801/06/2017AdministeredFlu, Fluzone (01837) 6 mos+, single-dose syringe/vial ()Acnxwop3301/13/2017AdministeredFlu, Fluzone (97216) 6 mos+, single-dose syringe/vial ()Qfjlzin2101/25/2021dministeredFlu, UuebrypxgrwPtxpvip09/26/2023dministeredPneumococcal (Prevnar 13)Unknown 02/05/2017AdministeredPneumococcal (Prevnar 13)Dtotmds7206/02/2022dministered SARS-COV-2 (COVID 19 Moderna - Booster 0.25mL)Nosgjpv4705/09/2020dministered SARS-COV-2 (COVID 19 Moderna - Booster 0.25mL)Zfmghwa1706/06/2020dministered SARS-COV-2 (COVID 19 Moderna - Booster 0.25mL)Qhozgyo3609/27/2021dministered SARS-COV-2 (COVID 19 Pfizer 30mcg/0.3mL)Elnsqma8404/24/2021dministeredSpikevax Moderna Syringe Pre-Filled 50 mcg/0.5 oNZvyjnhb68/23/2023AdministeredZOSTER (SHINGLES) VACCINE (HZV)Xrirngf7702/24/2023dministeredZOSTER (SHINGLES) VACCINE (HZV)Gbhxobm5205/02/2023dministered Social History Tobacco Use: Social History Observation Description Date Details (start date - stop date) Former Smoker 04/07/1951 - 04/07/1953 Tobacco Use/Smoking Question Answer Notes Patient is a former smoker When did you start smoking?04/07/1951When did you stop smoking?04/07/1953How long has it been since you last smoked?> 10 yearsAdditional Findings: Tobacco Non-UserCurrent non-smokerAlcohol Screen (Audit-C) Question Answer Notes Did you have a drink containing alcohol in the p ast year? Yes How often did you have 6 or more drinks on one occasion in the past year?Never (0 point)How many drinks did you have on a typical day when you were drinking in the past year?1 or 2 drinks (0 point)How often did you have a drink containing alcohol in the past year?Daily or almost daily (4 points)Bpwadt5Mgixrbooqxhdpk PositiveAUDIT-C (Standard) Question Answer Notes Did you have a drink containing alcohol in the p ast year? Yes How often did you have a drink containing alcohol in the past year?2 to 3 times a week (3 points)How many drinks did you have on a typical day when you were drinking in the past year?1 or 2 drinks (0 point)How often did you have six or more drinks on one occasion in the past year?Never (0 point)Points3 InterpretationNegative Problems Problem Type SNOMED Code ICD Code Onset Dates Problem Status W/U Status Risk Notes Problem First degree atriove ntricular block (397297101) Atrioventricular block, first degree (I44.0) ActiveconfirmedProblemCerebrovascular disease (67683808)Other cerebrovascular disease (I67.89)ActiveconfirmedProblemNoninfectious gastroenteritis (39576875) Other specified noninfective gastroenteritis and colitis (K52.89)Activeconfirmed ProblemIrritable bowel syndrome (57280893)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 (K58.9)ActiveconfirmedProblemAdhesive capsulitis of left shoulder (290958536951578)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)Activeconfirmed ProblemSoft tissue lesion of shoulder region (463961582)Other shoulder lesions, unspecified shoulder (M75.80)ActiveconfirmedProblemPalpitations (47038306) Palpitations (R00.2)ActiveconfirmedProblemWeakness (54793409)Weakness (R53.1) ActiveconfirmedProblemOnychomycosis caused by dermatophyte (947390009)OM (onychomycosis) (B35.1)ActiveconfirmedProblemGastroesophageal reflux disease (342485665)GERD (gastroesophageal reflux disease) (K21.9)ActiveconfirmedProblem Carpal tunnel syndrome (10374226)Carpal tunnel syndrome (G56.00)Activeconfirmed ProblemEssential hypertension (72651226)Essential hypertension (I10)Active confirmedProblemBradycardia (12581350)Bradycardia (R00.1)ActiveconfirmedProblem Peripheral neuropathy (807112672)Peripheral neuropathy (G62.9)Activeconfirmed ProblemAnkle pain (129226115)Ankle pain (M25.579)ActiveconfirmedProblemTransient ischemic attack (836854498)TIA (transient ischemic attack) (G45.9)Active confirmedProblemAcute sinusitis (70439684)Acute sinusitis (J01.90)Active confirmedProblemArthralgia (95289897)Arthralgia (M25.50)ActiveconfirmedProblem Hearing loss (72240274)Hearing loss (H91.90)ActiveconfirmedProblemWell adult (348378797)Well adult (Z00.00)ActiveconfirmedProblemAcquired hypothyroidism (095895029)Acquired hypothyroidism (E03.9)ActiveconfirmedProblemIrritable bowel syndrome (22966944)Irritable bowel syndrome (K58.9)ActiveconfirmedProblemEdema (815327157)Leg edema, right (R60.0)ActiveconfirmedProblemTinea unguium (309698567)Tinea unguium (B35.1)ActiveconfirmedProblemLaboratory test result abnormal (545361425)Abnormal laboratory test (R89.9)ActiveconfirmedProblem Umbilical hernia (182279740)Umbilical hernia (K42.9)ActiveconfirmedProblemHand pain (95276024)Hand pain (M79.643)ActiveconfirmedProblemGastroenteritis (70907731)Gastroenteritis (K52.9)ActiveconfirmedProblemOverweight (365469578) Over weight (E66.3)ActiveconfirmedProblemIron deficiency anemia (70085909) Anemia, iron deficiency (D50.9)ActiveconfirmedProblemProstatitis (5920470) Prostatitis (N41.9)ActiveconfirmedProblemAnkle edema (09497618)Ankle edema (R60.0)ActiveconfirmedProblemCalcaneal spur (99781782)Calcaneal spur (M77.30) ActiveconfirmedProblemLeukocytosis (043824739)Leukocytosis, unspecified type (D72.829)ActiveconfirmedProblemImpingement syndrome of shoulder (320061457) Impingement syndrome, shoulder (M75.40)ActiveconfirmedProblemCarotid artery occlusion (370630933)Occlusion and stenosis of carotid artery (I65.29)Active confirmedProblemCorn of toe (36619760)Rickreall of toe (L84)ActiveconfirmedProblem Atrial premature contractions (691381207)Premature atrial contractions (I49.1) ActiveconfirmedProblemWeight decreased (189626608)Weight loss observed on examination (R63.4)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 (7145336025730)Controlled type 2 diabetes mellitus with diabetic neuropathy, unspecified terminal gauger insulin use status (E11.40)ActiveconfirmedProblemhypercholesterolemia (disorder) (31025366) Hypercholesteremia (E78.00)ActiveconfirmedProblemArthralgia of temporomandibular joint (35374695)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)ActiveconfirmedProblemLocalized, primary osteoarthritis of the ankle and/or foot (480183714)Arthritis of ankle, right (M19.071)ActiveconfirmedProblemMuscle pain (28984942)Gluteal pain (M79.18)Active confirmedProblemDisease caused by Severe acute respiratory syndrome coronavirus 2 (disorder) (796184009)COVID-19 virus infection (U07.1)ActiveconfirmedProblem Atrophy of thyroid - acquired (680972065)Atrophy of thyroid (E03.4)Active confirmedProblemLow back pain (251072616)Low back pain, unspecified (M54.50) ActiveconfirmedProblemChronic kidney disease stage 3 (disorder) (373314054) Chronic kidney disease (CKD), stage III (moderate) (N18.30)Activeconfirmed Vital Signs Temperature 96.0 degrees Fahrenheit 02/07/2025 Blood pressure mm Hg02/07/20252055Qybhws87 in02/07/2025lood pressure cfemjtnd770 mm Hg02/07/20257559Pfspko611.2 lbs104/09/2024BMI24.96 kg/m202/07/2025 Encounters Encounter Location Date Provider Diagnosis [address] [address] 02/07/2025 Jose Hoy Acute sinusitis J01. [address] [address] 11/02/2024 Jose Hoy Pelvic pain R10.[address] [address] 01/18/2025 Jose Hoy Essential hypertensi on I10 ; Leg edema, right R60.0 ; Low back pain, unspecified M54.50 and Controlled type 2 diabetes mellitus with diabetic neuropathy, unspecified [facility] insulin use status E11.[address] [address] 02/25/2024 Jose Hoy Essential hypertensi on I10 ; Controlled type 2 diabetes mellitus with diabetic neuropathy, unspecified terminal gauger insulin use status E11.40 ; Prostatitis N41.9 ; Acquired hypothyroidism E03.9 and GERD (gastroesophageal reflux disease) K21.[address] [address] 06/25/2024 Jose Hoy Peripheral neuropath y G62.9 [facility] [address] [place] [facility] [place] [place] [address] 07/05/2024 Jose Hoy Ankle pain M25.579 [facility] [address] [place] [facility] [place] [place] [address] 08/23/2024 Jose Hoy Hand pain, right M79 .641 [facility] [address] [place] [facility] [place] [place] [address] 09/27/2024 Jose Hoy Essential hypertensi on I10 ; Irritable bowel syndrome K58.9 ; Low back pain, unspecified M54.50 and Controlled type 2 diabetes mellitus with diabetic neuropathy, unspecified terminal gauger insulin use status E11.40 [facility] [address] [place] [place] [address] 12/01/2024 Jose Pierrey Encounter for Medica re annual wellness exam Z00.00 [facility] [address] [facility] [place] [address] 04/08/2024 Jose Hoy [facility] [place] [facility] [place] [address] 05/03/2024Doug HoyEssential hypertension M83RkqbfcvMelissa [facility] Hospital[address] [place] [facility] [place] [address]/04/2024[facility]BV[facility] [facility] [place] [place] [address]/01/2025[facility] [place] [facility] [place] [address]/ [facility] [place] [facility] [place] [place] [address]/Doug HoyArthritis of ankle, right M19.071[facility] [facility] [place] [address]/Doug HoyGreat toe pain M79.676[facility] [place] [address]/Doug [facility]ck [facility] [place] [address]/Doug [facility] [place] [address]/Doug [facility] [place] [address]/Doug [facility] [place] [address]/ Jose HoyPeripheral neuropathy G62.9[facility] [place] [address]/Doug HoyPeripheral neuropathy G62.9 [facility] [facility] [place] [address] 10/04/2024Doug [facility] [place] [address]/12/2024Doug HoyAbnormal laboratory test R89.9BM[facility] [facility] [place] [address]/Doug [facility] [place] [address] 10/25/2024Doug [facility] [place] [address]/Doug [facility] [place] [address]/Doug [facility] [place] [address]/Doug [facility] [place] [address]/02/2025Doug [facility] [place] [address]/ Jose [facility] [place] [address]/Doug [facility]oyBM[facility] [place] [address]/Doug HoyPeripheral neuropathy G62.9BM[facility] [place] [address]/ Jose HoyEssential hypertension I10 Assessments Encounter Date Diagnosis (ICD Code) Assessment Notes Treatment Notes Treatment Clinical Notes Section Notes 02/25/2024 Essential hypertension (ICD-10 - I10) 02/25/2024ontrolled type 2 diabetes mellitus with diabetic neuropathy, unspecified [facility] insulin use status (ICD-10 - E11.40)02/07/2025ute sinusitis (ICD-10 - J01.90)05/03/2024Essential hypertension (ICD-10 - I10) 07/05/2024rthritis of ankle, right (ICD-10 - M19.071)07/22/2024Great toe pain (ICD-10 - M79.676)09/02/2024Peripheral neuropathy (ICD-10 - G62.9)09/29/2024 Peripheral neuropathy (ICD-10 - G62.9)10/13/2024bnormal laboratory test (ICD-10 - R89.9)01/20/2025Peripheral neuropathy (ICD-10 - G62.9)06/25/2024Peripheral neuropathy (ICD-10 - G62.9)07/05/2024nkle pain (ICD-10 - M25.579)08/23/2024Hand pain, right (ICD-10 - M79.641)10/25/2024Essential hypertension (ICD-10 - I10) 11/02/2024Pelvic pain (ICD-10 - R10.2)12/01/2024Encounter for Medicare annual wellness exam (ICD-10 - Z00.00)patient seen for a medicare subsequent medicare wellness appointment. an anxiety, depression and safety screening was completed without concern. a memory SLUMS test was completed and the patient scored a 28/30. vison screening was completed and the patient could read at 20/30 with the right eye yog6548 with the left eye. patient is up to date with all preventive screenings. a total of 30 minuteswas spent with the arhgzwf2501/18/2025 Essential hypertension (ICD-10 - I10)shtafn5901/18/2025Leg edema, right (ICD-10 - R60.0)stable with compression hose09/27/2024Essential hypertension (ICD-10 - I10)09/27/2024Irritable bowel syndrome (ICD-10 - K58.9)09/27/2024Low back pain, unspecified (ICD-10 - M54.50)01/18/2025Low back pain, unspecified (ICD-10 - M54.50)meds tiahrsq3402/25/2024rostatitis (ICD-10 - N41.9)02/25/2024cquired hypothyroidism (ICD-10 - E03.9)01/18/2025ontrolled type 2 diabetes mellitus with diabetic neuropathy, unspecified [facility] insulin use status (ICD-10 - E11.40)last glygo 6.5Controlled type 2 diabetes mellitus with diabetic neuropathy, unspecified terminal gauger insulin use status (ICD-10 - E11.40)02/25/2024 GERD (gastroesophageal reflux disease) (ICD-10 - K21.9) Plan Of Treatment Pending Test Test Name Order Date CMP (COMPLETE METABOLIC PANEL) 4 CMP (COMPLETE METABOLIC PANEL) 3 HEMOGLOBIN A1C (GLYCO) 09/27/2024 HEMOGLOBIN A1C (GLYCO) 08/12/2023 LIPID PANEL (CHOL/TRIG/HDL/LDL) 09/28/19 25 LIPID PANEL (CHOL/TRIG/HDL/LDL) 08/12/19 24 CBC WITH DIFF 08/12/2023 PSA, PROSTATE-SPECIFIC ANTIGEN 4 BMP w/GFR 05/03/2024 CREATININE 11/05/2023 COMPREHENSIVE METABOLIC PROFILE WITH GFR 10/13/2024 CBC W/AUTO DIFF 07/22/2024 COVID-19, Flu A+B IH 02/07/2025 SED RATE WESTERGREN 07/22/2024 CTA NECK WO W CON 11/03/2023 US CAROTID ART JUNIOR 10/29/2023 XR ANKLE RT MIN 3 VIEWS 07/05/2024 THYROID PANEL (T4/TSH/FREE T3) THYROID PANEL (T4/TSH/FREE T3) 5 PSA, SCREENING 09/27/2024 XR pelvis min 3V 11/02/2024 CMP (COMP MET CARRILLO) w/eGFR CKD-EPI 2024 CBC WITH DIFF 09/27/2024 Insurance Providers Payer Name Payer Address Payer Phone Subscriber Number Group Number Insured Name Patient Relationship to Insured Coverage Start Date Coverage End Date [place] [address] [place] [address] [id number] Rosemary Rivaself - patient is the [place] [id number] [place], [place] [id number] Rosemary Francoiself - patient is the insured 2019 Medical (General) History Medical History History ICD Code OM (onychomycosis) B35.1 Irritable bowel syndrome K58.9 Weakness R53.1 Over weight E66.3 Low back pain, unspecified M54.50 Rickreall of toe L84 Leg edema, right R60.0 [...] cerebrovascular disease I67.89 Surgical History Surgery Date(Month/Year) Left eye- new lens 2017 Left eye- fix lens 2018 Prostate 2020 Vasectomy 1980 Umbilical Hernia Repair 1983 Lower Back L4-L5 1985 Appendectomy 1992 Torn Macula-LEFT 1998 Cataract Removal- LEFT 2000 Rotator cuff- LEFT 2008 Elbow Right 2008 Cataract removal- RIGHT 2012 Carpal Tunnel- RIGHT 2007
[2025-02-11 08:15] LABS: Anion Gap 12.8; Blood Urea Nitrogen 30.0 mg/dL (7.0-18.0); Calcium 9.1 mg/dL (8.5-10.1); Carbon Dioxide 25.7 mmol/L (21.0-32.0); Chloride 104 mmol/L (98-107); Estimated GFR (African America 58 (>=60 mL/min/1.73m^2); Estimated GFR (Non-African Ame 48 (>=60 mL/min/1.73m^2); Glucose 109 mg/dL (74-106); Potassium 4.5 mmol/L (3.5-5.1); Sodium 138 mmol/L (136-145)
== END 2025-02-11 07:07 | disposition home or self-care (01) ==
LOC: LAB 07:07
PROVIDERS: PCP Family Medicine; Visit Provider Internal Medicine Cardiovascular Disease
DX: I11.9 Hypertensive heart disease without heart failure (principal)
CPT/HCPCS: 36415; 80048